=== PATIENT | female | born 1960 | race Caucasian/White ===

== ENCOUNTER 2018-04-15 20:49 | Inpatient (IN) | END 2018-08-11 11:59 | disposition other institution (70) | DRG 133 | DX: J96.11 Chronic respiratory failure with hypoxia (principal); G93.49 Other encephalopathy; G93.40 Encephalopathy, unspecified; G91.9 Hydrocephalus, unspecified; I11.0 Hypertensive heart disease with heart failure; A04.72 Enterocolitis due to Clostridium difficile, not specified as recurrent; L89.159 Pressure ulcer of sacral region, unspecified stage; I50.9 Heart failure, unspecified; B37.0 Candidal stomatitis; Z93.0 Tracheostomy status; R13.10 Dysphagia, unspecified; I69.298 Other sequelae of other nontraumatic intracranial hemorrhage; Z93.1 Gastrostomy status; B96.1 Klebsiella pneumoniae [K. pneumoniae] as the cause of diseases classified elsewhere; B96.20 Unspecified Escherichia coli [E. coli] as the cause of diseases classified elsewhere; N39.0 Urinary tract infection, site not specified; D68.59 Other primary thrombophilia; G40.909 Epilepsy, unspecified, not intractable, without status epilepticus; G93.89 Other specified disorders of brain; I69.151 Hemiplegia and hemiparesis following nontraumatic intracerebral hemorrhage affecting right dominant side; K08.109 Complete loss of teeth, unspecified cause, unspecified class; R47.02 Dysphasia ==

== ENCOUNTER 2018-04-17 08:24 | Outpatient (CLI) | payer OTHER | END 2018-04-17 23:59 | disposition home or self-care (01) | LOC: CT 08:24 | PROVIDERS: ATTEND Internal Medicine Pulmonary Disease | DX: G93.89 Other specified disorders of brain (principal); G91.9 Hydrocephalus, unspecified; R41.82 Altered mental status, unspecified; Z86.79 Personal history of other diseases of the circulatory system | CPT/HCPCS: 70450 ==

== ENCOUNTER 2018-08-12 | Inpatient (IN) | payer OTHER ==
[~2018-08-12] VITALS: Ht 170.2 cm; Wt 65.8 kg
[2018-08-13] MEDS ORDERED: SENNOSIDES 1 TABLET PO PRN (10:45)
[2018-08-13 14:23] VITALS: BP 121/64
[2018-08-13 20:00] VITALS: BP 139/93
[2018-08-13] MEDS: LEVETIRACETAM 500 MG/5 ML LIQUID UDC GT SCH (21:27)
[2018-08-13] MEDS: METOPROLOL TARTRATE 25 MG TABLET GT SCH (21:28)
[2018-08-13] MEDS: MULTIVIT, IRON, MIN NO. 8, FA TABLET GT SCH (21:28)
[2018-08-13] MEDS: PHENOBARBITAL 30 MG/7.5 ML LIQUID UDC GT SCH (21:28)
[2018-08-13] MEDS: ASCORBIC ACID 500 MG TABLET GT SCH (21:28)
[2018-08-13] MEDS: VIMPAT 200 MG GT SCH (21:28)
[2018-08-13] MEDS: HYDROGEN PEROXIDE 3% 118 ML BOTTLE TP SCH (21:28)
[2018-08-13] MEDS: VITAMINS A AND D OINT TP SCH (21:28)
[2018-08-13] MEDS: Z GUARD REMEDY PASTE 57 GM TUBE TOP SCH ×2 (21:28)
[2018-08-13] MEDS: ACETAMINOPHEN 650 MG/20 ML UDC- SA PATIENTS-PAIN ONLY GT PRN (21:32)
[2018-08-14] MEDS: VITAL AF 1.2 1,000 ML LIQUID GT PRN (00:30)
[2018-08-14] MEDS: ASCORBIC ACID 500 MG TABLET GT SCH ×2 (08:16→21:10)
[2018-08-14] MEDS: AMLODIPINE 10 MG TABLET GT SCH (08:16)
[2018-08-14] MEDS: VITAMINS A AND D OINT TP SCH ×2 (08:16→21:11)
[2018-08-14] MEDS: HYDROGEN PEROXIDE 3% 118 ML BOTTLE TP SCH ×2 (08:16→21:10)
[2018-08-14] MEDS: LISINOPRIL 10 MG TABLET GT SCH (08:16)
[2018-08-14] MEDS: METOPROLOL TARTRATE 25 MG TABLET GT SCH ×2 (08:16→21:10)
[2018-08-14] MEDS: PHENOBARBITAL 30 MG/7.5 ML LIQUID UDC GT SCH ×2 (08:16→21:10)
[2018-08-14] MEDS: Z GUARD REMEDY PASTE 57 GM TUBE TOP SCH ×4 (08:16→21:10)
[2018-08-14] MEDS: VIMPAT 200 MG GT SCH ×2 (08:16→21:10)
[2018-08-14] MEDS: LEVETIRACETAM 500 MG/5 ML LIQUID UDC GT SCH ×2 (08:16→21:09)
[2018-08-14 11:21] VITALS: BP 121/101
[2018-08-14] MEDS: ACETAMINOPHEN 650 MG/20 ML UDC- SA PATIENTS-PAIN ONLY GT PRN (20:00)
[2018-08-14 20:51] VITALS: BP 138/85
[2018-08-14] MEDS: MULTIVIT, IRON, MIN NO. 8, FA TABLET GT SCH (21:10)
[2018-08-15] VITALS: BP 127/96
[2018-08-15] MEDS: LISINOPRIL 10 MG TABLET GT SCH (08:14)
[2018-08-15] MEDS: Z GUARD REMEDY PASTE 57 GM TUBE TOP SCH ×4 (08:14→21:49)
[2018-08-15] MEDS: VIMPAT 200 MG GT SCH ×2 (08:14→21:49)
[2018-08-15] MEDS: ASCORBIC ACID 500 MG TABLET GT SCH ×2 (08:14→21:49)
[2018-08-15] MEDS: AMLODIPINE 10 MG TABLET GT SCH (08:14)
[2018-08-15] MEDS: LEVETIRACETAM 500 MG/5 ML LIQUID UDC GT SCH ×2 (08:14→21:48)
[2018-08-15] MEDS: METOPROLOL TARTRATE 25 MG TABLET GT SCH ×2 (08:14→21:00)
[2018-08-15] MEDS: PHENOBARBITAL 30 MG/7.5 ML LIQUID UDC GT SCH ×2 (08:14→21:49)
[2018-08-15] MEDS: VITAMINS A AND D OINT TP SCH ×2 (08:15→21:50)
[2018-08-15] MEDS: HYDROGEN PEROXIDE 3% 118 ML BOTTLE TP SCH ×2 (08:15→21:50)
[2018-08-15 11:16] VITALS: BP 149/59
[2018-08-15 20:16] VITALS: BP 108/75
[2018-08-15] MEDS: MULTIVIT, IRON, MIN NO. 8, FA TABLET GT SCH (21:49)
[2018-08-16] MEDS: ACETAMINOPHEN 650 MG/20 ML UDC- SA PATIENTS-PAIN ONLY GT PRN (08:00)
[2018-08-16 08:02] VITALS: BP 110/83
[2018-08-16] MEDS: Z GUARD REMEDY PASTE 57 GM TUBE TOP SCH ×5 (08:45→21:20)
[2018-08-16] MEDS: AMLODIPINE 10 MG TABLET GT SCH (09:00)
[2018-08-16] MEDS: METOPROLOL TARTRATE 25 MG TABLET GT SCH ×2 (09:00→21:20)
[2018-08-16] MEDS: LISINOPRIL 10 MG TABLET GT SCH (09:00)
[2018-08-16] MEDS: LEVETIRACETAM 500 MG/5 ML LIQUID UDC GT SCH ×2 (09:43→21:18)
[2018-08-16] MEDS: VIMPAT 200 MG GT SCH ×2 (09:45→21:08)
[2018-08-16] MEDS: PHENOBARBITAL 30 MG/7.5 ML LIQUID UDC GT SCH ×2 (09:45→21:08)
[2018-08-16] MEDS: ASCORBIC ACID 500 MG TABLET GT SCH ×2 (09:45→21:20)
[2018-08-16] MEDS: HYDROGEN PEROXIDE 3% 118 ML BOTTLE TP SCH ×2 (09:46→21:20)
[2018-08-16] MEDS: VITAMINS A AND D OINT TP SCH ×2 (09:46→21:20)
[2018-08-16] MEDS: VITAL AF 1.2 1,000 ML LIQUID GT PRN (09:47)
[2018-08-16 20:45] VITALS: BP 125/75
[2018-08-16] MEDS: MULTIVIT, IRON, MIN NO. 8, FA TABLET GT SCH (21:20)
[2018-08-17] MEDS: VITAL AF 1.2 1,000 ML LIQUID GT PRN ×2 (01:32→20:05)
[2018-08-17 08:04] VITALS: BP 125/81
[2018-08-17] MEDS: LEVETIRACETAM 500 MG/5 ML LIQUID UDC GT SCH ×2 (09:00→20:04)
[2018-08-17] MEDS: ASCORBIC ACID 500 MG TABLET GT SCH ×2 (09:01→20:04)
[2018-08-17] MEDS: METOPROLOL TARTRATE 25 MG TABLET GT SCH ×2 (09:01→21:37)
[2018-08-17] MEDS: AMLODIPINE 10 MG TABLET GT SCH (09:01)
[2018-08-17] MEDS: LISINOPRIL 10 MG TABLET GT SCH (09:01)
[2018-08-17] MEDS: PHENOBARBITAL 30 MG/7.5 ML LIQUID UDC GT SCH ×2 (09:01→20:04)
[2018-08-17] MEDS: Z GUARD REMEDY PASTE 57 GM TUBE TOP SCH ×4 (09:01→20:05)
[2018-08-17] MEDS: VIMPAT 200 MG GT SCH ×2 (09:01→20:04)
[2018-08-17] MEDS: VITAMINS A AND D OINT TP SCH ×2 (09:02→20:05)
[2018-08-17] MEDS: HYDROGEN PEROXIDE 3% 118 ML BOTTLE TP SCH ×2 (09:02→20:05)
[2018-08-17] MEDS: ACETAMINOPHEN 650 MG/20 ML UDC- SA PATIENTS-PAIN ONLY GT PRN ×2 (09:02→15:23)
[2018-08-17] MEDS: MULTIVIT, IRON, MIN NO. 8, FA TABLET GT SCH (20:04)
[2018-08-17 20:44] VITALS: BP 120/78
[2018-08-18] MEDS: LEVETIRACETAM 500 MG/5 ML LIQUID UDC GT SCH ×2 (08:34→21:12)
[2018-08-18] MEDS: METOPROLOL TARTRATE 25 MG TABLET GT SCH ×2 (08:35→21:14)
[2018-08-18] MEDS: AMLODIPINE 10 MG TABLET GT SCH (08:35)
[2018-08-18] MEDS: PHENOBARBITAL 30 MG/7.5 ML LIQUID UDC GT SCH ×2 (08:35→21:14)
[2018-08-18] MEDS: VIMPAT 200 MG GT SCH ×2 (08:35→21:14)
[2018-08-18] MEDS: HYDROGEN PEROXIDE 3% 118 ML BOTTLE TP SCH ×2 (08:36→21:15)
[2018-08-18] MEDS: LISINOPRIL 10 MG TABLET GT SCH (08:36)
[2018-08-18] MEDS: ASCORBIC ACID 500 MG TABLET GT SCH ×2 (08:36→21:14)
[2018-08-18] MEDS: VITAMINS A AND D OINT TP SCH ×2 (08:36→21:15)
[2018-08-18] MEDS: Z GUARD REMEDY PASTE 57 GM TUBE TOP SCH ×4 (08:36→21:15)
[2018-08-18] MEDS: ACETAMINOPHEN 650 MG/20 ML UDC- SA PATIENTS-PAIN ONLY GT PRN (08:45)
[2018-08-18 09:22] VITALS: BP 138/86
[2018-08-18] MEDS: MULTIVIT, IRON, MIN NO. 8, FA TABLET GT SCH (21:14)
[2018-08-18 21:22] VITALS: BP 126/81
[2018-08-19] MEDS: VIMPAT 200 MG GT SCH ×2 (08:21→21:35)
[2018-08-19] MEDS: LEVETIRACETAM 500 MG/5 ML LIQUID UDC GT SCH ×2 (08:21→21:35)
[2018-08-19] MEDS: METOPROLOL TARTRATE 25 MG TABLET GT SCH ×2 (08:21→21:35)
[2018-08-19] MEDS: ASCORBIC ACID 500 MG TABLET GT SCH ×2 (08:22→21:35)
[2018-08-19] MEDS: Z GUARD REMEDY PASTE 57 GM TUBE TOP SCH ×4 (08:22→21:35)
[2018-08-19] MEDS: PHENOBARBITAL 30 MG/7.5 ML LIQUID UDC GT SCH ×2 (08:22→21:35)
[2018-08-19] MEDS: HYDROGEN PEROXIDE 3% 118 ML BOTTLE TP SCH ×2 (08:22→21:36)
[2018-08-19] MEDS: AMLODIPINE 10 MG TABLET GT SCH (08:22)
[2018-08-19] MEDS: LISINOPRIL 10 MG TABLET GT SCH (08:22)
[2018-08-19] MEDS: VITAMINS A AND D OINT TP SCH ×2 (08:23→21:36)
[2018-08-19] MEDS: VITAL AF 1.2 1,000 ML LIQUID GT PRN (08:24)
[2018-08-19 19:55] VITALS: BP 143/87
[2018-08-19] MEDS: MULTIVIT, IRON, MIN NO. 8, FA TABLET GT SCH (21:35)
[2018-08-20] MEDS: AMLODIPINE 10 MG TABLET GT SCH (08:09)
[2018-08-20] MEDS: VIMPAT 200 MG GT SCH ×2 (08:09→21:59)
[2018-08-20] MEDS: PHENOBARBITAL 30 MG/7.5 ML LIQUID UDC GT SCH ×2 (08:09→21:59)
[2018-08-20] MEDS: METOPROLOL TARTRATE 25 MG TABLET GT SCH ×2 (08:09→21:59)
[2018-08-20] MEDS: LEVETIRACETAM 500 MG/5 ML LIQUID UDC GT SCH ×2 (08:09→21:59)
[2018-08-20] MEDS: Z GUARD REMEDY PASTE 57 GM TUBE TOP SCH ×4 (08:10→21:59)
[2018-08-20] MEDS: ASCORBIC ACID 500 MG TABLET GT SCH ×2 (08:10→21:59)
[2018-08-20] MEDS: HYDROGEN PEROXIDE 3% 118 ML BOTTLE TP SCH ×2 (08:10→21:59)
[2018-08-20] MEDS: LISINOPRIL 10 MG TABLET GT SCH (08:10)
[2018-08-20] MEDS: VITAMINS A AND D OINT TP SCH ×2 (08:10→21:59)
[2018-08-20 09:11] VITALS: BP 143/88
[2018-08-20 20:35] VITALS: BP 135/87
[2018-08-20] MEDS: MULTIVIT, IRON, MIN NO. 8, FA TABLET GT SCH (21:59)
[2018-08-21] MEDS: METOPROLOL TARTRATE 25 MG TABLET GT SCH ×2 (08:18→21:48)
[2018-08-21] MEDS: VIMPAT 200 MG GT SCH ×2 (08:19→21:55)
[2018-08-21] MEDS: PHENOBARBITAL 30 MG/7.5 ML LIQUID UDC GT SCH ×2 (08:19→21:56)
[2018-08-21] MEDS: AMLODIPINE 10 MG TABLET GT SCH (08:19)
[2018-08-21] MEDS: LISINOPRIL 10 MG TABLET GT SCH (08:20)
[2018-08-21] MEDS: ASCORBIC ACID 500 MG TABLET GT SCH ×2 (08:21→21:57)
[2018-08-21] MEDS: Z GUARD REMEDY PASTE 57 GM TUBE TOP SCH ×4 (08:22→21:57)
[2018-08-21] MEDS: ACETAMINOPHEN 650 MG/20 ML UDC- SA PATIENTS-PAIN ONLY GT PRN (08:23)
[2018-08-21] MEDS: VITAL AF 1.2 1,000 ML LIQUID GT PRN (08:27)
[2018-08-21 09:00] VITALS: BP 140/80
[2018-08-21] MEDS: HYDROGEN PEROXIDE 3% 118 ML BOTTLE TP SCH ×2 (09:05→21:57)
[2018-08-21] MEDS: LEVETIRACETAM 500 MG/5 ML LIQUID UDC GT SCH ×2 (09:05→21:48)
[2018-08-21] MEDS: VITAMINS A AND D OINT TP SCH ×2 (09:06→21:57)
[2018-08-21 20:00] VITALS: BP 129/79
[2018-08-21] MEDS: MULTIVIT, IRON, MIN NO. 8, FA TABLET GT SCH (21:57)
[2018-08-22] MEDS: VITAL AF 1.2 1,000 ML LIQUID GT PRN ×2 (02:33→18:17)
[2018-08-22 08:03] VITALS: BP 147/85
[2018-08-22] MEDS: METOPROLOL TARTRATE 25 MG TABLET GT SCH ×2 (08:34→21:39)
[2018-08-22] MEDS: LEVETIRACETAM 500 MG/5 ML LIQUID UDC GT SCH ×2 (08:34→21:38)
[2018-08-22] MEDS: VIMPAT 200 MG GT SCH ×2 (08:38→21:39)
[2018-08-22] MEDS: AMLODIPINE 10 MG TABLET GT SCH (08:39)
[2018-08-22] MEDS: PHENOBARBITAL 30 MG/7.5 ML LIQUID UDC GT SCH ×2 (08:39→21:39)
[2018-08-22] MEDS: ASCORBIC ACID 500 MG TABLET GT SCH ×2 (08:40→21:39)
[2018-08-22] MEDS: LISINOPRIL 10 MG TABLET GT SCH (08:40)
[2018-08-22] MEDS: Z GUARD REMEDY PASTE 57 GM TUBE TOP SCH ×4 (08:42→21:39)
[2018-08-22] MEDS: VITAMINS A AND D OINT TP SCH ×2 (08:42→21:39)
[2018-08-22] MEDS: HYDROGEN PEROXIDE 3% 118 ML BOTTLE TP SCH ×2 (08:42→21:39)
[2018-08-22 20:00] VITALS: BP 136/90
[2018-08-22] MEDS: MULTIVIT, IRON, MIN NO. 8, FA TABLET GT SCH (21:39)
[2018-08-23 08:03] VITALS: BP 138/71
[2018-08-23] MEDS: LEVETIRACETAM 500 MG/5 ML LIQUID UDC GT SCH ×2 (08:39→21:32)
[2018-08-23] MEDS: VIMPAT 200 MG GT SCH ×2 (08:41→21:38)
[2018-08-23] MEDS: METOPROLOL TARTRATE 25 MG TABLET GT SCH ×2 (08:41→21:33)
[2018-08-23] MEDS: ASCORBIC ACID 500 MG TABLET GT SCH ×2 (08:42→21:35)
[2018-08-23] MEDS: LISINOPRIL 10 MG TABLET GT SCH (08:42)
[2018-08-23] MEDS: AMLODIPINE 10 MG TABLET GT SCH (08:42)
[2018-08-23] MEDS: HYDROGEN PEROXIDE 3% 118 ML BOTTLE TP SCH ×2 (08:42→21:35)
[2018-08-23] MEDS: Z GUARD REMEDY PASTE 57 GM TUBE TOP SCH ×4 (08:42→21:35)
[2018-08-23] MEDS: VITAMINS A AND D OINT TP SCH ×2 (08:43→21:35)
[2018-08-23] MEDS: PHENOBARBITAL 30 MG/7.5 ML LIQUID UDC GT SCH ×2 (09:00→21:38)
[2018-08-23] MEDS: VITAL AF 1.2 1,000 ML LIQUID GT PRN (18:49)
[2018-08-23 20:00] VITALS: BP 146/88
[2018-08-23] MEDS: MULTIVIT, IRON, MIN NO. 8, FA TABLET GT SCH (21:35)
[2018-08-24 08:03] VITALS: BP 140/79
[2018-08-24] MEDS: METOPROLOL TARTRATE 25 MG TABLET GT SCH ×2 (08:03→21:00)
[2018-08-24] MEDS: LEVETIRACETAM 500 MG/5 ML LIQUID UDC GT SCH ×2 (08:03→21:08)
[2018-08-24] MEDS: AMLODIPINE 10 MG TABLET GT SCH (08:03)
[2018-08-24] MEDS: VIMPAT 200 MG GT SCH ×2 (08:03→21:09)
[2018-08-24] MEDS: LISINOPRIL 10 MG TABLET GT SCH (08:04)
[2018-08-24] MEDS: ASCORBIC ACID 500 MG TABLET GT SCH ×2 (08:04→21:09)
[2018-08-24] MEDS: Z GUARD REMEDY PASTE 57 GM TUBE TOP SCH ×4 (08:04→21:09)
[2018-08-24] MEDS: VITAMINS A AND D OINT TP SCH ×2 (08:04→21:10)
[2018-08-24] MEDS: HYDROGEN PEROXIDE 3% 118 ML BOTTLE TP SCH ×2 (08:04→21:10)
[2018-08-24] MEDS: PHENOBARBITAL 30 MG/7.5 ML LIQUID UDC GT SCH ×2 (08:04→21:09)
[2018-08-24] MEDS ORDERED: LEVETIRACETAM 500 MG/5 ML LIQUID UDC GT SCH (09:00)
[2018-08-24 20:11] VITALS: BP 119/73
[2018-08-24] MEDS: MULTIVIT, IRON, MIN NO. 8, FA TABLET GT SCH (21:09)
[2018-08-25] MEDS: VITAL AF 1.2 1,000 ML LIQUID GT PRN (02:51)
[2018-08-25] MEDS: LEVETIRACETAM 500 MG/5 ML LIQUID UDC GT SCH ×2 (08:36→21:00)
[2018-08-25] MEDS: AMLODIPINE 10 MG TABLET GT SCH (08:40)
[2018-08-25] MEDS: PHENOBARBITAL 30 MG/7.5 ML LIQUID UDC GT SCH ×2 (08:40→21:00)
[2018-08-25] MEDS: VIMPAT 200 MG GT SCH ×2 (08:40→21:00)
[2018-08-25] MEDS: METOPROLOL TARTRATE 25 MG TABLET GT SCH ×2 (08:40→21:00)
[2018-08-25] MEDS: LISINOPRIL 10 MG TABLET GT SCH (08:41)
[2018-08-25] MEDS: HYDROGEN PEROXIDE 3% 118 ML BOTTLE TP SCH ×2 (08:44→21:01)
[2018-08-25] MEDS: Z GUARD REMEDY PASTE 57 GM TUBE TOP SCH ×4 (08:44→21:01)
[2018-08-25] MEDS: ASCORBIC ACID 500 MG TABLET GT SCH ×2 (08:44→21:00)
[2018-08-25] MEDS: VITAMINS A AND D OINT TP SCH ×2 (08:45→21:01)
[2018-08-25 10:12] VITALS: BP 153/87
[2018-08-25] MEDS: DIAZEPAM 5 MG TABLET PO SCH ×2 (14:22→21:10)
[2018-08-25] MEDS: MULTIVIT, IRON, MIN NO. 8, FA TABLET GT SCH (21:00)
[2018-08-25 21:15] VITALS: BP 139/86
[2018-08-26] MEDS: DIAZEPAM 5 MG TABLET PO SCH ×3 (05:53→21:36)
[2018-08-26] MEDS: LEVETIRACETAM 500 MG/5 ML LIQUID UDC GT SCH ×2 (08:30→21:33)
[2018-08-26] MEDS: VIMPAT 200 MG GT SCH ×2 (08:31→21:34)
[2018-08-26] MEDS: METOPROLOL TARTRATE 25 MG TABLET GT SCH ×2 (08:31→21:34)
[2018-08-26] MEDS: Z GUARD REMEDY PASTE 57 GM TUBE TOP SCH ×4 (08:32→21:36)
[2018-08-26] MEDS: PHENOBARBITAL 30 MG/7.5 ML LIQUID UDC GT SCH ×2 (08:32→21:34)
[2018-08-26] MEDS: AMLODIPINE 10 MG TABLET GT SCH (08:32)
[2018-08-26] MEDS: ASCORBIC ACID 500 MG TABLET GT SCH ×2 (08:32→21:35)
[2018-08-26] MEDS: LISINOPRIL 10 MG TABLET GT SCH (08:32)
[2018-08-26] MEDS: HYDROGEN PEROXIDE 3% 118 ML BOTTLE TP SCH ×2 (08:32→21:36)
[2018-08-26] MEDS: VITAMINS A AND D OINT TP SCH ×2 (08:33→21:36)
[2018-08-26 11:25] VITALS: BP 134/87
[2018-08-26] MEDS: VITAL AF 1.2 1,000 ML LIQUID GT PRN (11:54)
[2018-08-26 20:44] VITALS: BP 132/86
[2018-08-26] MEDS: MULTIVIT, IRON, MIN NO. 8, FA TABLET GT SCH (21:34)
[2018-08-27] MEDS: VITAL AF 1.2 1,000 ML LIQUID GT PRN ×2 (00:09→05:06)
[2018-08-27] MEDS: DIAZEPAM 5 MG TABLET PO SCH ×3 (05:06→21:35)
[2018-08-27] MEDS: Z GUARD REMEDY PASTE 57 GM TUBE TOP SCH ×4 (08:24→21:35)
[2018-08-27] MEDS: ASCORBIC ACID 500 MG TABLET GT SCH ×2 (08:24→21:35)
[2018-08-27] MEDS: LEVETIRACETAM 500 MG/5 ML LIQUID UDC GT SCH ×2 (08:24→21:32)
[2018-08-27] MEDS: HYDROGEN PEROXIDE 3% 118 ML BOTTLE TP SCH ×2 (08:25→21:35)
[2018-08-27] MEDS: VITAMINS A AND D OINT TP SCH ×2 (08:25→21:35)
[2018-08-27] MEDS: AMLODIPINE 10 MG TABLET GT SCH (08:26)
[2018-08-27] MEDS: METOPROLOL TARTRATE 25 MG TABLET GT SCH ×2 (08:26→21:34)
[2018-08-27] MEDS: LISINOPRIL 10 MG TABLET GT SCH (08:27)
[2018-08-27] MEDS: VIMPAT 200 MG GT SCH ×2 (08:30→21:35)
[2018-08-27] MEDS: PHENOBARBITAL 30 MG/7.5 ML LIQUID UDC GT SCH ×2 (08:30→21:35)
[2018-08-27 11:37] VITALS: BP 136/87
[2018-08-27 20:37] VITALS: BP 128/93
[2018-08-27] MEDS: MULTIVIT, IRON, MIN NO. 8, FA TABLET GT SCH (21:35)
[2018-08-28] MEDS: DIAZEPAM 5 MG TABLET PO SCH ×3 (05:49→21:25)
[2018-08-28] MEDS: LEVETIRACETAM 500 MG/5 ML LIQUID UDC GT SCH ×2 (08:54→21:23)
[2018-08-28] MEDS: HYDROGEN PEROXIDE 3% 118 ML BOTTLE TP SCH ×2 (08:55→21:25)
[2018-08-28] MEDS: Z GUARD REMEDY PASTE 57 GM TUBE TOP SCH ×3 (08:55→21:25)
[2018-08-28] MEDS: AMLODIPINE 10 MG TABLET GT SCH (08:55)
[2018-08-28] MEDS: VITAMINS A AND D OINT TP SCH ×2 (08:55→21:25)
[2018-08-28] MEDS: METOPROLOL TARTRATE 25 MG TABLET GT SCH ×2 (08:55→21:23)
[2018-08-28] MEDS: ASCORBIC ACID 500 MG TABLET GT SCH ×2 (08:55→21:25)
[2018-08-28] MEDS: PHENOBARBITAL 30 MG/7.5 ML LIQUID UDC GT SCH ×2 (08:55→21:24)
[2018-08-28] MEDS: LISINOPRIL 10 MG TABLET GT SCH (08:55)
[2018-08-28] MEDS: VIMPAT 200 MG GT SCH ×2 (08:55→21:24)
[2018-08-28] MEDS: VITAL AF 1.2 1,000 ML LIQUID GT PRN (10:39)
[2018-08-28 10:43] VITALS: BP 131/69
[2018-08-28 20:37] VITALS: BP 128/85
[2018-08-28] MEDS: MULTIVIT, IRON, MIN NO. 8, FA TABLET GT SCH (21:24)
[2018-08-29] MEDS: VITAL AF 1.2 1,000 ML LIQUID GT PRN (00:30)
[2018-08-29] MEDS: DIAZEPAM 5 MG TABLET PO SCH ×3 (06:04→22:11)
[2018-08-29] MEDS: VIMPAT 200 MG GT SCH ×2 (08:30→20:48)
[2018-08-29] MEDS: METOPROLOL TARTRATE 25 MG TABLET GT SCH ×2 (08:30→20:48)
[2018-08-29] MEDS: LEVETIRACETAM 500 MG/5 ML LIQUID UDC GT SCH ×2 (08:30→20:47)
[2018-08-29] MEDS: Z GUARD REMEDY PASTE 57 GM TUBE TOP SCH ×2 (08:31→20:49)
[2018-08-29] MEDS: VITAMINS A AND D OINT TP SCH ×2 (08:31→20:49)
[2018-08-29] MEDS: HYDROGEN PEROXIDE 3% 118 ML BOTTLE TP SCH ×2 (08:31→20:49)
[2018-08-29] MEDS: ASCORBIC ACID 500 MG TABLET GT SCH ×2 (08:31→20:49)
[2018-08-29] MEDS: PHENOBARBITAL 30 MG/7.5 ML LIQUID UDC GT SCH ×2 (08:31→20:48)
[2018-08-29] MEDS: LISINOPRIL 10 MG TABLET GT SCH (08:31)
[2018-08-29] MEDS: AMLODIPINE 10 MG TABLET GT SCH (08:31)
[2018-08-29 12:57] VITALS: BP 118/76
[2018-08-29 20:40] VITALS: BP 128/87
[2018-08-29] MEDS: MULTIVIT, IRON, MIN NO. 8, FA TABLET GT SCH (20:48)
[2018-08-30] MEDS: VITAL AF 1.2 1,000 ML LIQUID GT PRN ×2 (05:00→21:00)
[2018-08-30] MEDS: DIAZEPAM 5 MG TABLET PO SCH ×3 (06:30→21:51)
[2018-08-30 08:00] VITALS: BP 141/95
[2018-08-30] MEDS: VIMPAT 200 MG GT SCH ×2 (08:39→20:41)
[2018-08-30] MEDS: PHENOBARBITAL 30 MG/7.5 ML LIQUID UDC GT SCH ×2 (08:39→20:41)
[2018-08-30] MEDS: AMLODIPINE 10 MG TABLET GT SCH (08:39)
[2018-08-30] MEDS: METOPROLOL TARTRATE 25 MG TABLET GT SCH ×2 (08:39→20:40)
[2018-08-30] MEDS: LEVETIRACETAM 500 MG/5 ML LIQUID UDC GT SCH ×2 (08:39→20:40)
[2018-08-30] MEDS: ASCORBIC ACID 500 MG TABLET GT SCH ×2 (08:41→20:45)
[2018-08-30] MEDS: LISINOPRIL 10 MG TABLET GT SCH (08:41)
[2018-08-30] MEDS: HYDROGEN PEROXIDE 3% 118 ML BOTTLE TP SCH ×2 (08:42→20:46)
[2018-08-30] MEDS: VITAMINS A AND D OINT TP SCH ×2 (08:42→20:46)
[2018-08-30] MEDS: Z GUARD REMEDY PASTE 57 GM TUBE TOP SCH ×2 (08:42→20:46)
[2018-08-30] MEDS: ACETAMINOPHEN 650 MG/20 ML UDC- SA PATIENTS-PAIN ONLY GT PRN (09:04)
[2018-08-30 20:13] VITALS: BP 114/75
[2018-08-30] MEDS: MULTIVIT, IRON, MIN NO. 8, FA TABLET GT SCH (20:45)
[2018-08-31] MEDS: DIAZEPAM 5 MG TABLET PO SCH ×3 (05:59→21:29)
[2018-08-31 08:00] VITALS: BP 121/83
[2018-08-31] MEDS: LEVETIRACETAM 500 MG/5 ML LIQUID UDC GT SCH ×2 (08:01→21:18)
[2018-08-31] MEDS: AMLODIPINE 10 MG TABLET GT SCH (08:02)
[2018-08-31] MEDS: METOPROLOL TARTRATE 25 MG TABLET GT SCH ×2 (08:02→21:00)
[2018-08-31] MEDS: PHENOBARBITAL 30 MG/7.5 ML LIQUID UDC GT SCH ×2 (08:02→21:22)
[2018-08-31] MEDS: VIMPAT 200 MG GT SCH ×2 (08:02→21:22)
[2018-08-31] MEDS: ASCORBIC ACID 500 MG TABLET GT SCH ×2 (08:03→21:19)
[2018-08-31] MEDS: VITAMINS A AND D OINT TP SCH ×2 (08:03→21:29)
[2018-08-31] MEDS: Z GUARD REMEDY PASTE 57 GM TUBE TOP SCH ×2 (08:03→21:29)
[2018-08-31] MEDS: LISINOPRIL 10 MG TABLET GT SCH (08:03)
[2018-08-31] MEDS: HYDROGEN PEROXIDE 3% 118 ML BOTTLE TP SCH ×2 (08:03→21:29)
[2018-08-31] MEDS: VITAL AF 1.2 1,000 ML LIQUID GT PRN (17:22)
[2018-08-31] MEDS: MULTIVIT, IRON, MIN NO. 8, FA TABLET GT SCH (21:19)
[2018-08-31 23:05] VITALS: BP 109/60
[2018-09-01] MEDS: DIAZEPAM 5 MG TABLET PO SCH ×3 (06:28→21:48)
[2018-09-01] MEDS: LEVETIRACETAM 500 MG/5 ML LIQUID UDC GT SCH ×2 (08:25→21:43)
[2018-09-01] MEDS: AMLODIPINE 10 MG TABLET GT SCH (08:27)
[2018-09-01] MEDS: METOPROLOL TARTRATE 25 MG TABLET GT SCH ×2 (08:27→21:46)
[2018-09-01] MEDS: VIMPAT 200 MG GT SCH ×2 (08:27→21:46)
[2018-09-01] MEDS: LISINOPRIL 10 MG TABLET GT SCH (08:27)
[2018-09-01] MEDS: Z GUARD REMEDY PASTE 57 GM TUBE TOP SCH ×2 (08:27→21:46)
[2018-09-01] MEDS: ASCORBIC ACID 500 MG TABLET GT SCH ×2 (08:27→21:46)
[2018-09-01] MEDS: VITAMINS A AND D OINT TP SCH ×2 (08:28→21:46)
[2018-09-01] MEDS: HYDROGEN PEROXIDE 3% 118 ML BOTTLE TP SCH ×2 (08:28→21:46)
[2018-09-01] MEDS: PHENOBARBITAL 30 MG/7.5 ML LIQUID UDC GT SCH ×2 (08:52→21:46)
[2018-09-01] MEDS ORDERED: PHENOBARBITAL 32.4 MG TABLET GT ONE (09:00)
[2018-09-01 09:25] VITALS: BP 117/72
[2018-09-01] MEDS: VITAL AF 1.2 1,000 ML LIQUID GT PRN (17:49)
[2018-09-01 20:25] VITALS: BP 130/84
[2018-09-01] MEDS: MULTIVIT, IRON, MIN NO. 8, FA TABLET GT SCH (21:46)
[2018-09-02] MEDS: VITAL AF 1.2 1,000 ML LIQUID GT PRN (04:11)
[2018-09-02] MEDS: DIAZEPAM 5 MG TABLET PO SCH ×3 (06:06→21:20)
[2018-09-02 08:00] VITALS: BP_SYST 121; BP_SYST 141; BP_DIAS 60; BP_DIAS 90
[2018-09-02] MEDS: LEVETIRACETAM 500 MG/5 ML LIQUID UDC GT SCH ×2 (08:19→20:18)
[2018-09-02] MEDS: Z GUARD REMEDY PASTE 57 GM TUBE TOP SCH ×2 (08:20→20:20)
[2018-09-02] MEDS: METOPROLOL TARTRATE 25 MG TABLET GT SCH ×2 (08:20→21:20)
[2018-09-02] MEDS: VITAMINS A AND D OINT TP SCH ×2 (08:20→20:20)
[2018-09-02] MEDS: LISINOPRIL 10 MG TABLET GT SCH (08:20)
[2018-09-02] MEDS: AMLODIPINE 10 MG TABLET GT SCH (08:20)
[2018-09-02] MEDS: PHENOBARBITAL 30 MG/7.5 ML LIQUID UDC GT SCH ×2 (08:20→20:21)
[2018-09-02] MEDS: HYDROGEN PEROXIDE 3% 118 ML BOTTLE TP SCH ×2 (08:20→20:20)
[2018-09-02] MEDS: ASCORBIC ACID 500 MG TABLET GT SCH ×2 (08:20→20:20)
[2018-09-02] MEDS: VIMPAT 200 MG GT SCH ×2 (08:20→20:20)
[2018-09-02] MEDS: MULTIVIT, IRON, MIN NO. 8, FA TABLET GT SCH (20:20)
[2018-09-02 20:46] VITALS: BP 146/89
[2018-09-03] MEDS: VITAL AF 1.2 1,000 ML LIQUID GT PRN ×2 (00:30→06:19)
[2018-09-03] MEDS: DIAZEPAM 5 MG TABLET PO SCH ×3 (06:18→21:57)
[2018-09-03 08:04] VITALS: BP 147/70
[2018-09-03] MEDS: LEVETIRACETAM 500 MG/5 ML LIQUID UDC GT SCH ×2 (08:04→21:53)
[2018-09-03] MEDS: METOPROLOL TARTRATE 25 MG TABLET GT SCH ×2 (08:04→21:00)
[2018-09-03] MEDS: VIMPAT 200 MG GT SCH ×2 (08:04→21:55)
[2018-09-03] MEDS: AMLODIPINE 10 MG TABLET GT SCH (08:05)
[2018-09-03] MEDS: HYDROGEN PEROXIDE 3% 118 ML BOTTLE TP SCH ×2 (08:05→21:57)
[2018-09-03] MEDS: ASCORBIC ACID 500 MG TABLET GT SCH ×2 (08:05→21:56)
[2018-09-03] MEDS: Z GUARD REMEDY PASTE 57 GM TUBE TOP SCH ×2 (08:05→21:56)
[2018-09-03] MEDS: VITAMINS A AND D OINT TP SCH ×2 (08:05→21:57)
[2018-09-03] MEDS: LISINOPRIL 10 MG TABLET GT SCH (08:05)
[2018-09-03] MEDS: PHENOBARBITAL 30 MG/7.5 ML LIQUID UDC GT SCH ×2 (08:05→21:55)
[2018-09-03 20:00] VITALS: BP 105/75
[2018-09-03] MEDS: MULTIVIT, IRON, MIN NO. 8, FA TABLET GT SCH (21:56)
[2018-09-04] MEDS: DIAZEPAM 5 MG TABLET PO SCH ×3 (05:20→21:50)
[2018-09-04 08:04] VITALS: BP 143/94
[2018-09-04] MEDS: LEVETIRACETAM 500 MG/5 ML LIQUID UDC GT SCH ×2 (08:34→21:33)
[2018-09-04] MEDS: AMLODIPINE 10 MG TABLET GT SCH (08:35)
[2018-09-04] MEDS: Z GUARD REMEDY PASTE 57 GM TUBE TOP SCH ×2 (08:35→21:49)
[2018-09-04] MEDS: HYDROGEN PEROXIDE 3% 118 ML BOTTLE TP SCH ×2 (08:35→21:49)
[2018-09-04] MEDS: ASCORBIC ACID 500 MG TABLET GT SCH ×2 (08:35→21:49)
[2018-09-04] MEDS: METOPROLOL TARTRATE 25 MG TABLET GT SCH ×2 (08:35→21:34)
[2018-09-04] MEDS: LISINOPRIL 10 MG TABLET GT SCH (08:35)
[2018-09-04] MEDS: PHENOBARBITAL 30 MG/7.5 ML LIQUID UDC GT SCH ×2 (08:35→21:47)
[2018-09-04] MEDS: VIMPAT 200 MG GT SCH ×2 (08:35→21:47)
[2018-09-04] MEDS: VITAMINS A AND D OINT TP SCH ×2 (08:35→21:49)
[2018-09-04 20:00] VITALS: BP 123/85
[2018-09-04] MEDS: MULTIVIT, IRON, MIN NO. 8, FA TABLET GT SCH (21:49)
[2018-09-04] MEDS: VITAL AF 1.2 1,000 ML LIQUID GT PRN (21:51)
[2018-09-05] MEDS: DIAZEPAM 5 MG TABLET PO SCH ×3 (05:36→21:27)
[2018-09-05 08:03] VITALS: BP 125/81
[2018-09-05 08:21] VITALS: BP 125/81
[2018-09-05] MEDS: VIMPAT 200 MG GT SCH ×2 (08:23→21:26)
[2018-09-05] MEDS: ASCORBIC ACID 500 MG TABLET GT SCH ×2 (08:24→21:27)
[2018-09-05] MEDS: PHENOBARBITAL 30 MG/7.5 ML LIQUID UDC GT SCH ×2 (08:24→21:26)
[2018-09-05] MEDS: Z GUARD REMEDY PASTE 57 GM TUBE TOP SCH ×2 (08:24→21:27)
[2018-09-05] MEDS: AMLODIPINE 10 MG TABLET GT SCH (08:24)
[2018-09-05] MEDS: LISINOPRIL 10 MG TABLET GT SCH (08:24)
[2018-09-05] MEDS: LEVETIRACETAM 500 MG/5 ML LIQUID UDC GT SCH ×2 (08:24→21:26)
[2018-09-05] MEDS: METOPROLOL TARTRATE 25 MG TABLET GT SCH ×2 (08:24→21:26)
[2018-09-05] MEDS: HYDROGEN PEROXIDE 3% 118 ML BOTTLE TP SCH ×2 (08:25→21:27)
[2018-09-05] MEDS: VITAMINS A AND D OINT TP SCH ×2 (08:25→21:27)
[2018-09-05 20:00] VITALS: BP 125/83
[2018-09-05] MEDS: MULTIVIT, IRON, MIN NO. 8, FA TABLET GT SCH (21:27)
[2018-09-06] MEDS: DIAZEPAM 5 MG TABLET PO SCH (05:18)
[2018-09-06 08:14] VITALS: BP 117/60
[2018-09-06] MEDS: METOPROLOL TARTRATE 25 MG TABLET GT SCH ×2 (08:16→21:36)
[2018-09-06] MEDS: LEVETIRACETAM 500 MG/5 ML LIQUID UDC GT SCH ×2 (08:16→21:35)
[2018-09-06] MEDS: AMLODIPINE 10 MG TABLET GT SCH (08:16)
[2018-09-06] MEDS: PHENOBARBITAL 30 MG/7.5 ML LIQUID UDC GT SCH ×2 (08:16→21:36)
[2018-09-06] MEDS: VIMPAT 200 MG GT SCH ×2 (08:16→21:36)
[2018-09-06] MEDS: ASCORBIC ACID 500 MG TABLET GT SCH ×2 (08:17→21:36)
[2018-09-06] MEDS: LISINOPRIL 10 MG TABLET GT SCH (08:17)
[2018-09-06] MEDS: Z GUARD REMEDY PASTE 57 GM TUBE TOP SCH ×2 (08:17→21:37)
[2018-09-06] MEDS: HYDROGEN PEROXIDE 3% 118 ML BOTTLE TP SCH ×2 (08:18→21:37)
[2018-09-06] MEDS: VITAMINS A AND D OINT TP SCH ×2 (08:18→21:37)
[2018-09-06] MEDS: VITAL AF 1.2 1,000 ML LIQUID GT PRN (08:46)
[2018-09-06 20:18] VITALS: BP 137/94
[2018-09-06] MEDS: MULTIVIT, IRON, MIN NO. 8, FA TABLET GT SCH (21:36)
[2018-09-06] MEDS: DIAZEPAM 5 MG TABLET GT SCH (21:36)
[2018-09-07] MEDS: VITAL AF 1.2 1,000 ML LIQUID GT PRN (00:20)
[2018-09-07] MEDS: VIMPAT 200 MG GT SCH ×2 (08:18→20:57)
[2018-09-07] MEDS: LEVETIRACETAM 500 MG/5 ML LIQUID UDC GT SCH ×2 (08:18→20:56)
[2018-09-07] MEDS: METOPROLOL TARTRATE 25 MG TABLET GT SCH ×2 (08:18→20:57)
[2018-09-07] MEDS: AMLODIPINE 10 MG TABLET GT SCH (08:19)
[2018-09-07] MEDS: PHENOBARBITAL 30 MG/7.5 ML LIQUID UDC GT SCH ×2 (08:19→20:57)
[2018-09-07] MEDS: ASCORBIC ACID 500 MG TABLET GT SCH ×2 (08:20→20:57)
[2018-09-07] MEDS: VITAMINS A AND D OINT TP SCH ×2 (08:20→20:57)
[2018-09-07] MEDS: LISINOPRIL 10 MG TABLET GT SCH (08:20)
[2018-09-07] MEDS: Z GUARD REMEDY PASTE 57 GM TUBE TOP SCH ×2 (08:20→20:57)
[2018-09-07] MEDS: HYDROGEN PEROXIDE 3% 118 ML BOTTLE TP SCH ×2 (08:20→20:57)
[2018-09-07] MEDS: DIAZEPAM 5 MG TABLET GT SCH ×2 (08:22→20:57)
[2018-09-07 11:29] VITALS: BP 141/90
[2018-09-07 20:27] VITALS: BP 126/70
[2018-09-07] MEDS: MULTIVIT, IRON, MIN NO. 8, FA TABLET GT SCH (20:57)
[2018-09-08 07:51] LABS: BASOPHILS % (AUTO) 0.4 % (0.0-2.0); EOSINOPHILS # (AUTO) 0.1 K/uL (0.0-0.7); MEAN CORPUSCULAR VOLUME 83.6 fL (75.5-95.3); MONOCYTES # (AUTO) 0.4 K/uL (2.0-10.0); WHITE BLOOD COUNT (AUTO) 6.1 K/uL (3.8-11.8)
[2018-09-08 08:01] LABS: EOSINOPHILS % (AUTO) 1.5 % (0.0-7.0); HEMATOCRIT 34.2 % (31.2-41.9); HEMOGLOBIN 11.6 g/dL (10.9-14.3); LYMPHOCYTES % (AUTO) 16.4 % (20.5-51.5); MEAN CORPUSCULAR HEMOGLOBIN 28.5 uug (24.7-32.8); MEAN CORPUSCULAR HGB CONC 34 g/dL (32.3-35.6); MONOCYTES % (AUTO) 6.3 % (0.0-11.0); NEUTROPHILS # (AUTO) 4.6 K/uL (1.8-8.9); NEUTROPHILS % (AUTO) 75.4 % (38.5-71.5); RED BLOOD CELL COUNT(AUTO) 4.09 MIL/uL (3.63-4.92)
[2018-09-08 08:02] LABS: PLATELET COUNT (AUTO) 189 K/uL (179-408)
[2018-09-08 08:10] LABS: BILIRUBIN,TOTAL 0.2 mg/dL (0.2-1.0); CREATININE 0.5 mg/dL (0.6-1.3); MAGNESIUM 1.8 mg/dL (1.8-2.4); PHOSPHOROUS 3.7 mg/dL (2.5-4.9); POTASSIUM 3.9 mmol/L (3.5-5.1); TOTAL PROTEIN, SERUM 7.1 g/dL (6.4-8.2)
[2018-09-08] MEDS: LEVETIRACETAM 500 MG/5 ML LIQUID UDC GT SCH ×2 (08:47→21:49)
[2018-09-08] MEDS: AMLODIPINE 10 MG TABLET GT SCH (08:48)
[2018-09-08] MEDS: METOPROLOL TARTRATE 25 MG TABLET GT SCH ×2 (08:48→21:49)
[2018-09-08] MEDS: VIMPAT 200 MG GT SCH ×2 (08:48→21:49)
[2018-09-08] MEDS: PHENOBARBITAL 30 MG/7.5 ML LIQUID UDC GT SCH ×2 (08:48→21:49)
[2018-09-08] MEDS: DIAZEPAM 5 MG TABLET GT SCH ×2 (08:49→21:49)
[2018-09-08] MEDS: ASCORBIC ACID 500 MG TABLET GT SCH ×2 (08:49→21:49)
[2018-09-08] MEDS: VITAMINS A AND D OINT TP SCH ×2 (08:49→21:50)
[2018-09-08] MEDS: LISINOPRIL 10 MG TABLET GT SCH (08:49)
[2018-09-08] MEDS: HYDROGEN PEROXIDE 3% 118 ML BOTTLE TP SCH ×2 (08:49→21:50)
[2018-09-08] MEDS: Z GUARD REMEDY PASTE 57 GM TUBE TOP SCH ×2 (08:49→21:50)
[2018-09-08 09:17] VITALS: BP 151/93
[2018-09-08 20:54] VITALS: BP 124/73
[2018-09-08] MEDS: MULTIVIT, IRON, MIN NO. 8, FA TABLET GT SCH (21:49)
[2018-09-09] MEDS: LEVETIRACETAM 500 MG/5 ML LIQUID UDC GT SCH ×2 (08:05→21:11)
[2018-09-09] MEDS: METOPROLOL TARTRATE 25 MG TABLET GT SCH ×2 (08:06→21:11)
[2018-09-09] MEDS: AMLODIPINE 10 MG TABLET GT SCH (08:06)
[2018-09-09] MEDS: VIMPAT 200 MG GT SCH ×2 (08:06→21:12)
[2018-09-09] MEDS: LISINOPRIL 10 MG TABLET GT SCH (08:07)
[2018-09-09] MEDS: PHENOBARBITAL 30 MG/7.5 ML LIQUID UDC GT SCH ×2 (08:07→21:12)
[2018-09-09] MEDS: DIAZEPAM 5 MG TABLET GT SCH ×2 (08:07→21:12)
[2018-09-09] MEDS: ASCORBIC ACID 500 MG TABLET GT SCH ×2 (08:08→21:31)
[2018-09-09] MEDS: VITAMINS A AND D OINT TP SCH ×2 (08:08→21:31)
[2018-09-09] MEDS: HYDROGEN PEROXIDE 3% 118 ML BOTTLE TP SCH ×2 (08:08→21:31)
[2018-09-09] MEDS: Z GUARD REMEDY PASTE 57 GM TUBE TOP SCH ×2 (08:08→21:31)
[2018-09-09 21:03] VITALS: BP 132/83
[2018-09-09] MEDS: MULTIVIT, IRON, MIN NO. 8, FA TABLET GT SCH (21:12)
[2018-09-10] MEDS: VITAL AF 1.2 1,000 ML LIQUID GT PRN (02:44)
[2018-09-10] MEDS: VIMPAT 200 MG GT SCH ×2 (08:19→21:11)
[2018-09-10] MEDS: METOPROLOL TARTRATE 25 MG TABLET GT SCH ×2 (08:19→21:13)
[2018-09-10] MEDS: AMLODIPINE 10 MG TABLET GT SCH (08:19)
[2018-09-10] MEDS: LEVETIRACETAM 500 MG/5 ML LIQUID UDC GT SCH ×2 (08:19→21:10)
[2018-09-10] MEDS: PHENOBARBITAL 30 MG/7.5 ML LIQUID UDC GT SCH ×2 (08:19→21:11)
[2018-09-10] MEDS: DIAZEPAM 5 MG TABLET GT SCH ×2 (08:20→21:11)
[2018-09-10] MEDS: HYDROGEN PEROXIDE 3% 118 ML BOTTLE TP SCH ×2 (08:20→21:12)
[2018-09-10] MEDS: VITAMINS A AND D OINT TP SCH ×2 (08:20→21:12)
[2018-09-10] MEDS: Z GUARD REMEDY PASTE 57 GM TUBE TOP SCH ×2 (08:20→21:12)
[2018-09-10] MEDS: ASCORBIC ACID 500 MG TABLET GT SCH ×2 (08:20→21:12)
[2018-09-10] MEDS: LISINOPRIL 10 MG TABLET GT SCH (08:20)
[2018-09-10 10:40] VITALS: BP 99/67
[2018-09-10 20:00] VITALS: BP 141/95
[2018-09-10] MEDS: MULTIVIT, IRON, MIN NO. 8, FA TABLET GT SCH (21:11)
[2018-09-11] MEDS: LISINOPRIL 10 MG TABLET GT SCH (08:18)
[2018-09-11] MEDS: PHENOBARBITAL 30 MG/7.5 ML LIQUID UDC GT SCH ×2 (08:18→21:09)
[2018-09-11] MEDS: METOPROLOL TARTRATE 25 MG TABLET GT SCH ×2 (08:18→21:09)
[2018-09-11] MEDS: AMLODIPINE 10 MG TABLET GT SCH (08:18)
[2018-09-11] MEDS: LEVETIRACETAM 500 MG/5 ML LIQUID UDC GT SCH ×2 (08:18→21:08)
[2018-09-11] MEDS: VIMPAT 200 MG GT SCH ×2 (08:18→21:09)
[2018-09-11] MEDS: ASCORBIC ACID 500 MG TABLET GT SCH ×2 (08:19→21:10)
[2018-09-11] MEDS: VITAMINS A AND D OINT TP SCH ×2 (08:19→21:11)
[2018-09-11] MEDS: Z GUARD REMEDY PASTE 57 GM TUBE TOP SCH ×2 (08:19→21:11)
[2018-09-11] MEDS: DIAZEPAM 5 MG TABLET GT SCH ×2 (08:19→21:10)
[2018-09-11] MEDS: HYDROGEN PEROXIDE 3% 118 ML BOTTLE TP SCH ×2 (08:19→21:11)
[2018-09-11 11:34] VITALS: BP 141/72
[2018-09-11 20:42] VITALS: BP 123/84
[2018-09-11] MEDS: MULTIVIT, IRON, MIN NO. 8, FA TABLET GT SCH (21:09)
[2018-09-12] MEDS: VITAL AF 1.2 1,000 ML LIQUID GT PRN (00:35)
[2018-09-12] MEDS: LEVETIRACETAM 500 MG/5 ML LIQUID UDC GT SCH ×2 (08:03→21:06)
[2018-09-12] MEDS: METOPROLOL TARTRATE 25 MG TABLET GT SCH ×2 (08:03→21:06)
[2018-09-12] MEDS: VIMPAT 200 MG GT SCH ×2 (08:04→21:06)
[2018-09-12] MEDS: PHENOBARBITAL 30 MG/7.5 ML LIQUID UDC GT SCH ×2 (08:05→21:06)
[2018-09-12] MEDS: AMLODIPINE 10 MG TABLET GT SCH (08:05)
[2018-09-12] MEDS: LISINOPRIL 10 MG TABLET GT SCH (08:05)
[2018-09-12] MEDS: HYDROGEN PEROXIDE 3% 118 ML BOTTLE TP SCH ×2 (08:06→21:07)
[2018-09-12] MEDS: Z GUARD REMEDY PASTE 57 GM TUBE TOP SCH ×2 (08:06→21:07)
[2018-09-12] MEDS: VITAMINS A AND D OINT TP SCH ×2 (08:06→21:07)
[2018-09-12] MEDS: DIAZEPAM 5 MG TABLET GT SCH ×2 (08:06→21:06)
[2018-09-12] MEDS: ASCORBIC ACID 500 MG TABLET GT SCH ×2 (08:06→21:06)
[2018-09-12 20:41] VITALS: BP 121/78
[2018-09-12] MEDS: MULTIVIT, IRON, MIN NO. 8, FA TABLET GT SCH (21:06)
[2018-09-13 08:06] VITALS: BP 147/72
[2018-09-13] MEDS: LEVETIRACETAM 500 MG/5 ML LIQUID UDC GT SCH ×2 (08:22→21:17)
[2018-09-13] MEDS: VIMPAT 200 MG GT SCH ×2 (08:24→21:18)
[2018-09-13] MEDS: AMLODIPINE 10 MG TABLET GT SCH (08:25)
[2018-09-13] MEDS: LISINOPRIL 10 MG TABLET GT SCH (08:25)
[2018-09-13] MEDS: DIAZEPAM 5 MG TABLET GT SCH ×2 (08:25→21:18)
[2018-09-13] MEDS: PHENOBARBITAL 30 MG/7.5 ML LIQUID UDC GT SCH ×2 (08:25→21:18)
[2018-09-13] MEDS: METOPROLOL TARTRATE 25 MG TABLET GT SCH ×2 (08:25→21:00)
[2018-09-13] MEDS: ASCORBIC ACID 500 MG TABLET GT SCH ×2 (08:25→21:18)
[2018-09-13] MEDS: HYDROGEN PEROXIDE 3% 118 ML BOTTLE TP SCH ×2 (08:26→21:18)
[2018-09-13] MEDS: Z GUARD REMEDY PASTE 57 GM TUBE TOP SCH ×2 (08:26→21:18)
[2018-09-13] MEDS: VITAMINS A AND D OINT TP SCH ×2 (08:26→21:18)
[2018-09-13] MEDS: VITAL AF 1.2 1,000 ML LIQUID GT PRN (12:46)
[2018-09-13 20:58] VITALS: BP 116/76
[2018-09-13] MEDS: MULTIVIT, IRON, MIN NO. 8, FA TABLET GT SCH (21:18)
[2018-09-14] MEDS: VITAL AF 1.2 1,000 ML LIQUID GT PRN ×2 (07:02→17:16)
[2018-09-14 08:18] VITALS: BP 106/67
[2018-09-14] MEDS: AMLODIPINE 10 MG TABLET GT SCH (09:00)
[2018-09-14] MEDS: METOPROLOL TARTRATE 25 MG TABLET GT SCH ×2 (09:00→21:21)
[2018-09-14] MEDS: LISINOPRIL 10 MG TABLET GT SCH (09:00)
[2018-09-14] MEDS: LEVETIRACETAM 500 MG/5 ML LIQUID UDC GT SCH ×2 (09:06→21:21)
[2018-09-14] MEDS: VIMPAT 200 MG GT SCH ×2 (09:07→21:21)
[2018-09-14] MEDS: PHENOBARBITAL 30 MG/7.5 ML LIQUID UDC GT SCH ×2 (09:07→21:21)
[2018-09-14] MEDS: ASCORBIC ACID 500 MG TABLET GT SCH ×2 (09:08→21:21)
[2018-09-14] MEDS: DIAZEPAM 5 MG TABLET GT SCH ×2 (09:08→21:21)
[2018-09-14] MEDS: HYDROGEN PEROXIDE 3% 118 ML BOTTLE TP SCH ×2 (09:08→21:21)
[2018-09-14] MEDS: VITAMINS A AND D OINT TP SCH ×2 (09:08→21:21)
[2018-09-14] MEDS: Z GUARD REMEDY PASTE 57 GM TUBE TOP SCH ×2 (09:08→21:21)
[2018-09-14 20:40] VITALS: BP 137/90
[2018-09-14] MEDS: MULTIVIT, IRON, MIN NO. 8, FA TABLET GT SCH (21:21)
[2018-09-15] MEDS: AMLODIPINE 10 MG TABLET GT SCH (09:04)
[2018-09-15] MEDS: METOPROLOL TARTRATE 25 MG TABLET GT SCH ×2 (09:04→21:00)
[2018-09-15] MEDS: LEVETIRACETAM 500 MG/5 ML LIQUID UDC GT SCH ×2 (09:04→21:00)
[2018-09-15] MEDS: PHENOBARBITAL 30 MG/7.5 ML LIQUID UDC GT SCH ×2 (09:04→21:00)
[2018-09-15] MEDS: VIMPAT 200 MG GT SCH ×2 (09:04→21:00)
[2018-09-15] MEDS: ASCORBIC ACID 500 MG TABLET GT SCH ×2 (09:05→21:00)
[2018-09-15] MEDS: Z GUARD REMEDY PASTE 57 GM TUBE TOP SCH ×2 (09:05→21:00)
[2018-09-15] MEDS: HYDROGEN PEROXIDE 3% 118 ML BOTTLE TP SCH ×2 (09:05→21:00)
[2018-09-15] MEDS: LISINOPRIL 10 MG TABLET GT SCH (09:05)
[2018-09-15] MEDS: VITAMINS A AND D OINT TP SCH ×2 (09:05→21:00)
[2018-09-15] MEDS: DIAZEPAM 5 MG TABLET GT SCH ×2 (09:05→21:00)
[2018-09-15 10:37] VITALS: BP 137/86
[2018-09-15] MEDS: VITAL AF 1.2 1,000 ML LIQUID GT PRN (12:22)
[2018-09-15 20:30] VITALS: BP 157/101
[2018-09-15] MEDS: MULTIVIT, IRON, MIN NO. 8, FA TABLET GT SCH (21:00)
[2018-09-16] MEDS: LEVETIRACETAM 500 MG/5 ML LIQUID UDC GT SCH ×2 (08:43→21:46)
[2018-09-16] MEDS: ASCORBIC ACID 500 MG TABLET GT SCH ×2 (08:44→21:57)
[2018-09-16] MEDS: VIMPAT 200 MG GT SCH ×2 (08:44→21:51)
[2018-09-16] MEDS: METOPROLOL TARTRATE 25 MG TABLET GT SCH ×2 (08:44→21:49)
[2018-09-16] MEDS: HYDROGEN PEROXIDE 3% 118 ML BOTTLE TP SCH ×2 (08:44→21:57)
[2018-09-16] MEDS: VITAMINS A AND D OINT TP SCH ×2 (08:44→21:57)
[2018-09-16] MEDS: Z GUARD REMEDY PASTE 57 GM TUBE TOP SCH ×2 (08:44→21:57)
[2018-09-16] MEDS: PHENOBARBITAL 30 MG/7.5 ML LIQUID UDC GT SCH ×2 (08:44→21:55)
[2018-09-16] MEDS: AMLODIPINE 10 MG TABLET GT SCH (08:44)
[2018-09-16] MEDS: DIAZEPAM 5 MG TABLET GT SCH ×2 (08:44→21:57)
[2018-09-16] MEDS: LISINOPRIL 10 MG TABLET GT SCH (08:44)
[2018-09-16 11:28] VITALS: BP 133/86
[2018-09-16 19:56] VITALS: BP 129/87
[2018-09-16] MEDS: MULTIVIT, IRON, MIN NO. 8, FA TABLET GT SCH (21:55)
[2018-09-16] MEDS: VITAL AF 1.2 1,000 ML LIQUID GT PRN (21:58)
[2018-09-17] MEDS: LEVETIRACETAM 500 MG/5 ML LIQUID UDC GT SCH ×2 (08:26→21:02)
[2018-09-17] MEDS: PHENOBARBITAL 30 MG/7.5 ML LIQUID UDC GT SCH ×2 (08:27→21:01)
[2018-09-17] MEDS: METOPROLOL TARTRATE 25 MG TABLET GT SCH ×2 (08:27→21:49)
[2018-09-17] MEDS: AMLODIPINE 10 MG TABLET GT SCH (08:27)
[2018-09-17] MEDS: VIMPAT 200 MG GT SCH ×2 (08:27→21:01)
[2018-09-17] MEDS: LISINOPRIL 10 MG TABLET GT SCH (08:28)
[2018-09-17] MEDS: Z GUARD REMEDY PASTE 57 GM TUBE TOP SCH ×2 (08:28→21:02)
[2018-09-17] MEDS: DIAZEPAM 5 MG TABLET GT SCH ×2 (08:28→21:02)
[2018-09-17] MEDS: HYDROGEN PEROXIDE 3% 118 ML BOTTLE TP SCH ×2 (08:28→21:02)
[2018-09-17] MEDS: ASCORBIC ACID 500 MG TABLET GT SCH ×2 (08:28→21:02)
[2018-09-17] MEDS: VITAMINS A AND D OINT TP SCH ×2 (08:30→21:02)
[2018-09-17 11:24] VITALS: BP 120/79
[2018-09-17] MEDS: VITAL AF 1.2 1,000 ML LIQUID GT PRN (16:44)
[2018-09-17 20:00] VITALS: BP 130/88
[2018-09-17] MEDS: MULTIVIT, IRON, MIN NO. 8, FA TABLET GT SCH (21:01)
[2018-09-18 08:10] VITALS: BP 139/79
[2018-09-18] MEDS: METOPROLOL TARTRATE 25 MG TABLET GT SCH ×2 (08:15→21:52)
[2018-09-18] MEDS: LEVETIRACETAM 500 MG/5 ML LIQUID UDC GT SCH ×2 (08:15→21:52)
[2018-09-18] MEDS: VIMPAT 200 MG GT SCH ×2 (08:15→21:53)
[2018-09-18] MEDS: HYDROGEN PEROXIDE 3% 118 ML BOTTLE TP SCH ×2 (08:16→21:54)
[2018-09-18] MEDS: LISINOPRIL 10 MG TABLET GT SCH (08:16)
[2018-09-18] MEDS: VITAMINS A AND D OINT TP SCH ×2 (08:16→21:54)
[2018-09-18] MEDS: Z GUARD REMEDY PASTE 57 GM TUBE TOP SCH ×2 (08:16→21:54)
[2018-09-18] MEDS: DIAZEPAM 5 MG TABLET GT SCH ×2 (08:16→21:53)
[2018-09-18] MEDS: PHENOBARBITAL 30 MG/7.5 ML LIQUID UDC GT SCH ×2 (08:16→21:53)
[2018-09-18] MEDS: AMLODIPINE 10 MG TABLET GT SCH (08:16)
[2018-09-18] MEDS: ASCORBIC ACID 500 MG TABLET GT SCH ×2 (08:16→21:53)
[2018-09-18] MEDS: VITAL AF 1.2 1,000 ML LIQUID GT PRN (11:36)
[2018-09-18 20:00] VITALS: BP 121/79
[2018-09-18] MEDS: MULTIVIT, IRON, MIN NO. 8, FA TABLET GT SCH (21:53)
[2018-09-19 07:43] VITALS: BP 128/74
[2018-09-19] MEDS: METOPROLOL TARTRATE 25 MG TABLET GT SCH ×2 (08:22→21:49)
[2018-09-19] MEDS: AMLODIPINE 10 MG TABLET GT SCH (08:22)
[2018-09-19] MEDS: PHENOBARBITAL 30 MG/7.5 ML LIQUID UDC GT SCH ×2 (08:22→21:50)
[2018-09-19] MEDS: VIMPAT 200 MG GT SCH ×2 (08:22→21:50)
[2018-09-19] MEDS: LEVETIRACETAM 500 MG/5 ML LIQUID UDC GT SCH ×2 (08:22→21:49)
[2018-09-19] MEDS: LISINOPRIL 10 MG TABLET GT SCH (08:22)
[2018-09-19] MEDS: HYDROGEN PEROXIDE 3% 118 ML BOTTLE TP SCH ×2 (08:23→21:50)
[2018-09-19] MEDS: VITAMINS A AND D OINT TP SCH ×2 (08:23→21:50)
[2018-09-19] MEDS: DIAZEPAM 5 MG TABLET GT SCH ×2 (08:23→21:50)
[2018-09-19] MEDS: Z GUARD REMEDY PASTE 57 GM TUBE TOP SCH ×2 (08:23→21:50)
[2018-09-19] MEDS: ASCORBIC ACID 500 MG TABLET GT SCH ×2 (08:23→21:50)
[2018-09-19 11:16] VITALS: BP 128/74
[2018-09-19 20:00] VITALS: BP 132/92
[2018-09-19] MEDS: MULTIVIT, IRON, MIN NO. 8, FA TABLET GT SCH (21:50)
[2018-09-20 08:05] VITALS: BP 120/80
[2018-09-20] MEDS: LEVETIRACETAM 500 MG/5 ML LIQUID UDC GT SCH ×2 (09:34→21:03)
[2018-09-20] MEDS: METOPROLOL TARTRATE 25 MG TABLET GT SCH ×2 (09:35→21:04)
[2018-09-20] MEDS: LISINOPRIL 10 MG TABLET GT SCH (09:35)
[2018-09-20] MEDS: AMLODIPINE 10 MG TABLET GT SCH (09:35)
[2018-09-20] MEDS: ASCORBIC ACID 500 MG TABLET GT SCH ×2 (09:36→21:04)
[2018-09-20] MEDS: VITAMINS A AND D OINT TP SCH ×2 (09:36→21:04)
[2018-09-20] MEDS: HYDROGEN PEROXIDE 3% 118 ML BOTTLE TP SCH ×2 (09:36→21:04)
[2018-09-20] MEDS: Z GUARD REMEDY PASTE 57 GM TUBE TOP SCH ×2 (09:36→21:04)
[2018-09-20] MEDS: PHENOBARBITAL 30 MG/7.5 ML LIQUID UDC GT SCH ×2 (09:45→21:04)
[2018-09-20] MEDS: DIAZEPAM 5 MG TABLET GT SCH ×2 (09:45→21:04)
[2018-09-20] MEDS: VIMPAT 200 MG GT SCH ×2 (09:45→21:04)
[2018-09-20 20:00] VITALS: BP 138/84
[2018-09-20] MEDS: MULTIVIT, IRON, MIN NO. 8, FA TABLET GT SCH (21:04)
[2018-09-21] MEDS: VITAL AF 1.2 1,000 ML LIQUID GT PRN ×2 (07:15→23:09)
[2018-09-21] MEDS: AMLODIPINE 10 MG TABLET GT SCH (09:00)
[2018-09-21] MEDS: LISINOPRIL 10 MG TABLET GT SCH (09:00)
[2018-09-21] MEDS: METOPROLOL TARTRATE 25 MG TABLET GT SCH ×2 (09:00→21:31)
[2018-09-21] MEDS: LEVETIRACETAM 500 MG/5 ML LIQUID UDC GT SCH ×2 (09:09→21:29)
[2018-09-21] MEDS: VIMPAT 200 MG GT SCH ×2 (09:10→21:21)
[2018-09-21] MEDS: PHENOBARBITAL 30 MG/7.5 ML LIQUID UDC GT SCH ×2 (09:10→21:21)
[2018-09-21] MEDS: Z GUARD REMEDY PASTE 57 GM TUBE TOP SCH ×2 (09:10→21:31)
[2018-09-21] MEDS: ASCORBIC ACID 500 MG TABLET GT SCH ×2 (09:10→21:28)
[2018-09-21] MEDS: DIAZEPAM 5 MG TABLET GT SCH ×2 (09:10→21:21)
[2018-09-21] MEDS: VITAMINS A AND D OINT TP SCH ×2 (09:11→21:31)
[2018-09-21] MEDS: HYDROGEN PEROXIDE 3% 118 ML BOTTLE TP SCH ×2 (09:11→21:31)
[2018-09-21 11:27] VITALS: BP 116/53
[2018-09-21 21:15] VITALS: BP 123/72
[2018-09-21] MEDS: MULTIVIT, IRON, MIN NO. 8, FA TABLET GT SCH (21:31)
[2018-09-22 08:05] VITALS: BP 163/98
[2018-09-22] MEDS: DIAZEPAM 5 MG TABLET GT SCH ×2 (08:14→21:00)
[2018-09-22] MEDS: HYDROGEN PEROXIDE 3% 118 ML BOTTLE TP SCH ×2 (08:14→21:00)
[2018-09-22] MEDS: LEVETIRACETAM 500 MG/5 ML LIQUID UDC GT SCH ×2 (08:14→21:00)
[2018-09-22] MEDS: VIMPAT 200 MG GT SCH ×2 (08:14→21:00)
[2018-09-22] MEDS: LISINOPRIL 10 MG TABLET GT SCH (08:14)
[2018-09-22] MEDS: AMLODIPINE 10 MG TABLET GT SCH (08:14)
[2018-09-22] MEDS: PHENOBARBITAL 30 MG/7.5 ML LIQUID UDC GT SCH ×2 (08:14→21:00)
[2018-09-22] MEDS: ASCORBIC ACID 500 MG TABLET GT SCH ×2 (08:14→21:00)
[2018-09-22] MEDS: METOPROLOL TARTRATE 25 MG TABLET GT SCH ×2 (08:14→21:00)
[2018-09-22] MEDS: Z GUARD REMEDY PASTE 57 GM TUBE TOP SCH ×2 (08:14→21:00)
[2018-09-22] MEDS: VITAMINS A AND D OINT TP SCH ×2 (08:14→21:00)
[2018-09-22] MEDS: MULTIVIT, IRON, MIN NO. 8, FA TABLET GT SCH (21:00)
[2018-09-22 21:41] VITALS: BP 140/83
[2018-09-23 08:05] VITALS: BP 155/99
[2018-09-23] MEDS: LEVETIRACETAM 500 MG/5 ML LIQUID UDC GT SCH ×2 (09:11→21:40)
[2018-09-23] MEDS: VIMPAT 200 MG GT SCH ×2 (09:12→21:42)
[2018-09-23] MEDS: METOPROLOL TARTRATE 25 MG TABLET GT SCH ×2 (09:12→21:41)
[2018-09-23] MEDS: PHENOBARBITAL 30 MG/7.5 ML LIQUID UDC GT SCH ×2 (09:13→21:45)
[2018-09-23] MEDS: LISINOPRIL 10 MG TABLET GT SCH (09:13)
[2018-09-23] MEDS: HYDROGEN PEROXIDE 3% 118 ML BOTTLE TP SCH ×2 (09:13→21:47)
[2018-09-23] MEDS: AMLODIPINE 10 MG TABLET GT SCH (09:13)
[2018-09-23] MEDS: VITAMINS A AND D OINT TP SCH ×2 (09:13→21:47)
[2018-09-23] MEDS: DIAZEPAM 5 MG TABLET GT SCH ×2 (09:13→21:48)
[2018-09-23] MEDS: ASCORBIC ACID 500 MG TABLET GT SCH ×2 (09:13→21:47)
[2018-09-23] MEDS: Z GUARD REMEDY PASTE 57 GM TUBE TOP SCH ×2 (09:13→21:47)
[2018-09-23] MEDS: VITAL AF 1.2 1,000 ML LIQUID GT PRN (12:43)
[2018-09-23 21:04] VITALS: BP 130/82
[2018-09-23] MEDS: MULTIVIT, IRON, MIN NO. 8, FA TABLET GT SCH (21:45)
[2018-09-24] MEDS: VITAL AF 1.2 1,000 ML LIQUID GT PRN (03:09)
[2018-09-24 08:05] VITALS: BP 144/92
[2018-09-24] MEDS: LEVETIRACETAM 500 MG/5 ML LIQUID UDC GT SCH ×2 (08:31→21:56)
[2018-09-24] MEDS: PHENOBARBITAL 30 MG/7.5 ML LIQUID UDC GT SCH ×2 (08:42→21:56)
[2018-09-24] MEDS: AMLODIPINE 10 MG TABLET GT SCH (08:42)
[2018-09-24] MEDS: METOPROLOL TARTRATE 25 MG TABLET GT SCH ×2 (08:42→21:56)
[2018-09-24] MEDS: Z GUARD REMEDY PASTE 57 GM TUBE TOP SCH ×2 (08:43→21:56)
[2018-09-24] MEDS: HYDROGEN PEROXIDE 3% 118 ML BOTTLE TP SCH ×2 (08:43→21:56)
[2018-09-24] MEDS: VIMPAT 200 MG GT SCH ×2 (08:43→21:56)
[2018-09-24] MEDS: LISINOPRIL 10 MG TABLET GT SCH (08:43)
[2018-09-24] MEDS: ASCORBIC ACID 500 MG TABLET GT SCH ×2 (08:43→21:56)
[2018-09-24] MEDS: DIAZEPAM 5 MG TABLET GT SCH ×2 (08:43→21:56)
[2018-09-24] MEDS: VITAMINS A AND D OINT TP SCH ×2 (08:44→21:56)
[2018-09-24 20:00] VITALS: BP 131/88
[2018-09-24] MEDS: MULTIVIT, IRON, MIN NO. 8, FA TABLET GT SCH (21:56)
[2018-09-25 08:12] VITALS: BP 114/72
[2018-09-25] MEDS: LEVETIRACETAM 500 MG/5 ML LIQUID UDC GT SCH ×2 (09:58→21:00)
[2018-09-25] MEDS: METOPROLOL TARTRATE 25 MG TABLET GT SCH ×2 (09:58→21:00)
[2018-09-25] MEDS: AMLODIPINE 10 MG TABLET GT SCH (09:58)
[2018-09-25] MEDS: VIMPAT 200 MG GT SCH ×2 (09:58→21:00)
[2018-09-25] MEDS: PHENOBARBITAL 30 MG/7.5 ML LIQUID UDC GT SCH ×2 (09:58→21:00)
[2018-09-25] MEDS: LISINOPRIL 10 MG TABLET GT SCH (09:58)
[2018-09-25] MEDS: DIAZEPAM 5 MG TABLET GT SCH ×2 (09:58→21:00)
[2018-09-25] MEDS: HYDROGEN PEROXIDE 3% 118 ML BOTTLE TP SCH ×2 (09:59→21:00)
[2018-09-25] MEDS: Z GUARD REMEDY PASTE 57 GM TUBE TOP SCH ×2 (09:59→21:00)
[2018-09-25] MEDS: ASCORBIC ACID 500 MG TABLET GT SCH ×2 (09:59→21:00)
[2018-09-25] MEDS: VITAMINS A AND D OINT TP SCH ×2 (09:59→21:00)
[2018-09-25 20:36] VITALS: BP 123/71
[2018-09-25] MEDS: MULTIVIT, IRON, MIN NO. 8, FA TABLET GT SCH (21:00)
[2018-09-26] MEDS: METOPROLOL TARTRATE 25 MG TABLET GT SCH ×2 (08:27→20:38)
[2018-09-26] MEDS: LEVETIRACETAM 500 MG/5 ML LIQUID UDC GT SCH ×2 (08:27→20:37)
[2018-09-26] MEDS: PHENOBARBITAL 30 MG/7.5 ML LIQUID UDC GT SCH ×2 (08:28→20:38)
[2018-09-26] MEDS: AMLODIPINE 10 MG TABLET GT SCH (08:28)
[2018-09-26] MEDS: VIMPAT 200 MG GT SCH ×2 (08:28→20:38)
[2018-09-26] MEDS: ASCORBIC ACID 500 MG TABLET GT SCH ×2 (08:29→20:38)
[2018-09-26] MEDS: DIAZEPAM 5 MG TABLET GT SCH ×2 (08:29→20:38)
[2018-09-26] MEDS: LISINOPRIL 10 MG TABLET GT SCH (08:29)
[2018-09-26] MEDS: Z GUARD REMEDY PASTE 57 GM TUBE TOP SCH ×2 (08:29→20:38)
[2018-09-26] MEDS: HYDROGEN PEROXIDE 3% 118 ML BOTTLE TP SCH ×2 (08:29→20:38)
[2018-09-26] MEDS: VITAMINS A AND D OINT TP SCH ×2 (08:29→20:38)
[2018-09-26 10:19] VITALS: BP 134/87
[2018-09-26] MEDS: VITAL AF 1.2 1,000 ML LIQUID GT PRN (17:50)
[2018-09-26] MEDS: MULTIVIT, IRON, MIN NO. 8, FA TABLET GT SCH (20:38)
[2018-09-26 22:00] VITALS: BP 139/92
[2018-09-27 08:00] VITALS: BP 148/91
[2018-09-27] MEDS: LEVETIRACETAM 500 MG/5 ML LIQUID UDC GT SCH ×2 (08:04→21:17)
[2018-09-27] MEDS: VIMPAT 200 MG GT SCH ×2 (08:05→21:18)
[2018-09-27] MEDS: METOPROLOL TARTRATE 25 MG TABLET GT SCH ×2 (08:05→21:00)
[2018-09-27] MEDS: AMLODIPINE 10 MG TABLET GT SCH (08:09)
[2018-09-27] MEDS: PHENOBARBITAL 30 MG/7.5 ML LIQUID UDC GT SCH ×2 (08:09→21:18)
[2018-09-27] MEDS: ASCORBIC ACID 500 MG TABLET GT SCH ×2 (08:10→21:18)
[2018-09-27] MEDS: Z GUARD REMEDY PASTE 57 GM TUBE TOP SCH ×2 (08:10→21:18)
[2018-09-27] MEDS: VITAMINS A AND D OINT TP SCH ×2 (08:10→21:18)
[2018-09-27] MEDS: DIAZEPAM 5 MG TABLET GT SCH ×2 (08:10→21:18)
[2018-09-27] MEDS: HYDROGEN PEROXIDE 3% 118 ML BOTTLE TP SCH ×2 (08:10→21:18)
[2018-09-27] MEDS: LISINOPRIL 10 MG TABLET GT SCH (08:10)
[2018-09-27] MEDS: MULTIVIT, IRON, MIN NO. 8, FA TABLET GT SCH (21:18)
[2018-09-27] MEDS: ACETAMINOPHEN 650 MG/20 ML UDC- SA PATIENTS-PAIN ONLY GT PRN (23:16)
[2018-09-28 03:36] VITALS: BP 159/79
[2018-09-28] MEDS: VITAL AF 1.2 1,000 ML LIQUID GT PRN ×2 (06:39→21:43)
[2018-09-28 08:04] VITALS: BP 146/91
[2018-09-28] MEDS: LEVETIRACETAM 500 MG/5 ML LIQUID UDC GT SCH ×2 (08:06→21:38)
[2018-09-28] MEDS: PHENOBARBITAL 30 MG/7.5 ML LIQUID UDC GT SCH ×2 (08:07→21:40)
[2018-09-28] MEDS: Z GUARD REMEDY PASTE 57 GM TUBE TOP SCH ×2 (08:07→21:43)
[2018-09-28] MEDS: VIMPAT 200 MG GT SCH ×2 (08:07→21:40)
[2018-09-28] MEDS: DIAZEPAM 5 MG TABLET GT SCH ×2 (08:07→21:43)
[2018-09-28] MEDS: HYDROGEN PEROXIDE 3% 118 ML BOTTLE TP SCH ×2 (08:07→21:43)
[2018-09-28] MEDS: ASCORBIC ACID 500 MG TABLET GT SCH ×2 (08:07→21:43)
[2018-09-28] MEDS: VITAMINS A AND D OINT TP SCH ×2 (08:07→21:43)
[2018-09-28] MEDS: METOPROLOL TARTRATE 25 MG TABLET GT SCH ×2 (08:07→21:40)
[2018-09-28] MEDS: AMLODIPINE 10 MG TABLET GT SCH (08:07)
[2018-09-28] MEDS: LISINOPRIL 10 MG TABLET GT SCH (08:07)
[2018-09-28] MEDS: MULTIVIT, IRON, MIN NO. 8, FA TABLET GT SCH (21:42)
[2018-09-28 22:00] VITALS: BP 118/75
[2018-09-29] MEDS: LEVETIRACETAM 500 MG/5 ML LIQUID UDC GT SCH ×2 (08:23→21:49)
[2018-09-29] MEDS: METOPROLOL TARTRATE 25 MG TABLET GT SCH ×2 (08:24→21:00)
[2018-09-29] MEDS: VIMPAT 200 MG GT SCH ×2 (08:24→21:52)
[2018-09-29] MEDS: AMLODIPINE 10 MG TABLET GT SCH (08:24)
[2018-09-29] MEDS: VITAMINS A AND D OINT TP SCH ×2 (08:25→21:52)
[2018-09-29] MEDS: Z GUARD REMEDY PASTE 57 GM TUBE TOP SCH ×2 (08:25→21:52)
[2018-09-29] MEDS: PHENOBARBITAL 30 MG/7.5 ML LIQUID UDC GT SCH ×2 (08:25→21:52)
[2018-09-29] MEDS: HYDROGEN PEROXIDE 3% 118 ML BOTTLE TP SCH ×2 (08:25→21:52)
[2018-09-29] MEDS: LISINOPRIL 10 MG TABLET GT SCH (08:25)
[2018-09-29] MEDS: DIAZEPAM 5 MG TABLET GT SCH ×2 (08:25→21:52)
[2018-09-29] MEDS: ASCORBIC ACID 500 MG TABLET GT SCH ×2 (08:25→21:52)
[2018-09-29 11:19] VITALS: BP 95/63
[2018-09-29] MEDS: VITAL AF 1.2 1,000 ML LIQUID GT PRN (14:46)
[2018-09-29] MEDS: MULTIVIT, IRON, MIN NO. 8, FA TABLET GT SCH (21:52)
[2018-09-29 22:00] VITALS: BP 89/59
[2018-09-30 08:18] VITALS: BP_SYST 103; BP_SYST 91; BP_DIAS 57; BP_DIAS 72
[2018-09-30] MEDS: LEVETIRACETAM 500 MG/5 ML LIQUID UDC GT SCH ×2 (08:23→21:48)
[2018-09-30] MEDS: PHENOBARBITAL 30 MG/7.5 ML LIQUID UDC GT SCH ×2 (08:23→21:49)
[2018-09-30] MEDS: LISINOPRIL 10 MG TABLET GT SCH (08:23)
[2018-09-30] MEDS: METOPROLOL TARTRATE 25 MG TABLET GT SCH ×2 (08:23→21:00)
[2018-09-30] MEDS: VIMPAT 200 MG GT SCH ×2 (08:23→21:49)
[2018-09-30] MEDS: AMLODIPINE 10 MG TABLET GT SCH (08:23)
[2018-09-30] MEDS: ASCORBIC ACID 500 MG TABLET GT SCH ×2 (08:24→21:50)
[2018-09-30] MEDS: DIAZEPAM 5 MG TABLET GT SCH ×2 (08:24→21:50)
[2018-09-30] MEDS: HYDROGEN PEROXIDE 3% 118 ML BOTTLE TP SCH ×2 (08:24→21:50)
[2018-09-30] MEDS: Z GUARD REMEDY PASTE 57 GM TUBE TOP SCH ×2 (08:24→21:50)
[2018-09-30] MEDS: VITAMINS A AND D OINT TP SCH ×2 (08:24→21:50)
[2018-09-30] MEDS: VITAL AF 1.2 1,000 ML LIQUID GT PRN (19:36)
[2018-09-30 20:00] VITALS: BP 116/76
[2018-09-30] MEDS: MULTIVIT, IRON, MIN NO. 8, FA TABLET GT SCH (21:50)
[2018-10-01 08:05] VITALS: BP 118/77
[2018-10-01] MEDS: LEVETIRACETAM 500 MG/5 ML LIQUID UDC GT SCH ×2 (08:14→20:38)
[2018-10-01] MEDS: VIMPAT 200 MG GT SCH ×2 (08:15→20:38)
[2018-10-01] MEDS: AMLODIPINE 10 MG TABLET GT SCH (08:15)
[2018-10-01] MEDS: LISINOPRIL 10 MG TABLET GT SCH (08:15)
[2018-10-01] MEDS: METOPROLOL TARTRATE 25 MG TABLET GT SCH ×2 (08:15→20:38)
[2018-10-01] MEDS: PHENOBARBITAL 30 MG/7.5 ML LIQUID UDC GT SCH ×2 (08:15→20:40)
[2018-10-01] MEDS: HYDROGEN PEROXIDE 3% 118 ML BOTTLE TP SCH ×2 (08:16→20:41)
[2018-10-01] MEDS: VITAMINS A AND D OINT TP SCH ×2 (08:16→20:41)
[2018-10-01] MEDS: ASCORBIC ACID 500 MG TABLET GT SCH ×2 (08:16→20:41)
[2018-10-01] MEDS: DIAZEPAM 5 MG TABLET GT SCH ×2 (08:16→20:41)
[2018-10-01] MEDS: Z GUARD REMEDY PASTE 57 GM TUBE TOP SCH ×2 (08:16→20:41)
[2018-10-01] MEDS: VITAL AF 1.2 1,000 ML LIQUID GT PRN (12:30)
[2018-10-01] MEDS: MULTIVIT, IRON, MIN NO. 8, FA TABLET GT SCH (20:40)
[2018-10-01 21:38] VITALS: BP 135/90
[2018-10-02 08:04] VITALS: BP 124/82
[2018-10-02] MEDS: VIMPAT 200 MG GT SCH ×2 (08:12→20:52)
[2018-10-02] MEDS: METOPROLOL TARTRATE 25 MG TABLET GT SCH ×2 (08:12→20:52)
[2018-10-02] MEDS: LEVETIRACETAM 500 MG/5 ML LIQUID UDC GT SCH ×2 (08:12→20:52)
[2018-10-02] MEDS: Z GUARD REMEDY PASTE 57 GM TUBE TOP SCH ×2 (08:13→20:53)
[2018-10-02] MEDS: VITAMINS A AND D OINT TP SCH ×2 (08:13→20:53)
[2018-10-02] MEDS: HYDROGEN PEROXIDE 3% 118 ML BOTTLE TP SCH ×2 (08:13→20:53)
[2018-10-02] MEDS: ASCORBIC ACID 500 MG TABLET GT SCH ×2 (08:13→20:52)
[2018-10-02] MEDS: AMLODIPINE 10 MG TABLET GT SCH (08:13)
[2018-10-02] MEDS: DIAZEPAM 5 MG TABLET GT SCH ×2 (08:13→20:52)
[2018-10-02] MEDS: LISINOPRIL 10 MG TABLET GT SCH (08:13)
[2018-10-02] MEDS: PHENOBARBITAL 30 MG/7.5 ML LIQUID UDC GT SCH ×2 (08:13→20:52)
[2018-10-02] MEDS: VITAL AF 1.2 1,000 ML LIQUID GT PRN (18:58)
[2018-10-02 20:35] VITALS: BP 127/84
[2018-10-02] MEDS: MULTIVIT, IRON, MIN NO. 8, FA TABLET GT SCH (20:52)
[2018-10-03 08:05] VITALS: BP 119/76
[2018-10-03] MEDS: METOPROLOL TARTRATE 25 MG TABLET GT SCH ×2 (08:34→21:01)
[2018-10-03] MEDS: LEVETIRACETAM 500 MG/5 ML LIQUID UDC GT SCH ×2 (08:34→21:01)
[2018-10-03] MEDS: DIAZEPAM 5 MG TABLET GT SCH ×2 (08:35→21:01)
[2018-10-03] MEDS: ASCORBIC ACID 500 MG TABLET GT SCH ×2 (08:35→21:01)
[2018-10-03] MEDS: PHENOBARBITAL 30 MG/7.5 ML LIQUID UDC GT SCH ×2 (08:35→21:01)
[2018-10-03] MEDS: VIMPAT 200 MG GT SCH ×2 (08:35→21:01)
[2018-10-03] MEDS: LISINOPRIL 10 MG TABLET GT SCH (08:35)
[2018-10-03] MEDS: AMLODIPINE 10 MG TABLET GT SCH (08:35)
[2018-10-03] MEDS: Z GUARD REMEDY PASTE 57 GM TUBE TOP SCH ×2 (08:36→21:01)
[2018-10-03] MEDS: VITAL AF 1.2 1,000 ML LIQUID GT PRN (08:36)
[2018-10-03] MEDS: VITAMINS A AND D OINT TP SCH ×2 (08:36→21:01)
[2018-10-03] MEDS: HYDROGEN PEROXIDE 3% 118 ML BOTTLE TP SCH ×2 (08:36→21:01)
[2018-10-03] MEDS: MULTIVIT, IRON, MIN NO. 8, FA TABLET GT SCH (21:01)
[2018-10-03 22:00] VITALS: BP 158/93
[2018-10-04] MEDS: VITAL AF 1.2 1,000 ML LIQUID GT PRN ×2 (03:45→17:15)
[2018-10-04] MEDS: AMLODIPINE 10 MG TABLET GT SCH (09:00)
[2018-10-04] MEDS: LISINOPRIL 10 MG TABLET GT SCH (09:00)
[2018-10-04] MEDS: METOPROLOL TARTRATE 25 MG TABLET GT SCH ×2 (09:00→21:00)
[2018-10-04] MEDS: LEVETIRACETAM 500 MG/5 ML LIQUID UDC GT SCH ×2 (09:05→21:00)
[2018-10-04] MEDS: ASCORBIC ACID 500 MG TABLET GT SCH ×2 (09:06→21:00)
[2018-10-04] MEDS: Z GUARD REMEDY PASTE 57 GM TUBE TOP SCH ×2 (09:06→21:00)
[2018-10-04] MEDS: VIMPAT 200 MG GT SCH ×2 (09:06→21:00)
[2018-10-04] MEDS: HYDROGEN PEROXIDE 3% 118 ML BOTTLE TP SCH ×2 (09:06→21:00)
[2018-10-04] MEDS: DIAZEPAM 5 MG TABLET GT SCH ×2 (09:06→21:00)
[2018-10-04] MEDS: PHENOBARBITAL 30 MG/7.5 ML LIQUID UDC GT SCH ×2 (09:06→21:00)
[2018-10-04] MEDS: VITAMINS A AND D OINT TP SCH ×2 (09:07→21:00)
[2018-10-04 13:04] VITALS: BP 114/76
[2018-10-04] MEDS: MULTIVIT, IRON, MIN NO. 8, FA TABLET GT SCH (21:00)
[2018-10-04 22:35] VITALS: BP 138/94
[2018-10-05] MEDS: LEVETIRACETAM 500 MG/5 ML LIQUID UDC GT SCH ×2 (08:19→20:48)
[2018-10-05] MEDS: AMLODIPINE 10 MG TABLET GT SCH (08:27)
[2018-10-05] MEDS: METOPROLOL TARTRATE 25 MG TABLET GT SCH ×2 (08:27→20:49)
[2018-10-05] MEDS: LISINOPRIL 10 MG TABLET GT SCH (08:27)
[2018-10-05] MEDS: HYDROGEN PEROXIDE 3% 118 ML BOTTLE TP SCH ×2 (08:27→20:51)
[2018-10-05] MEDS: DIAZEPAM 5 MG TABLET GT SCH ×2 (08:27→20:50)
[2018-10-05] MEDS: ASCORBIC ACID 500 MG TABLET GT SCH ×2 (08:27→20:50)
[2018-10-05] MEDS: PHENOBARBITAL 30 MG/7.5 ML LIQUID UDC GT SCH ×2 (08:27→20:50)
[2018-10-05] MEDS: Z GUARD REMEDY PASTE 57 GM TUBE TOP SCH ×2 (08:27→20:50)
[2018-10-05] MEDS: VIMPAT 200 MG GT SCH ×2 (08:27→20:50)
[2018-10-05] MEDS: VITAMINS A AND D OINT TP SCH ×2 (08:28→20:51)
[2018-10-05 11:39] VITALS: BP 126/85
[2018-10-05] MEDS: VITAL AF 1.2 1,000 ML LIQUID GT PRN (11:47)
[2018-10-05] MEDS: MULTIVIT, IRON, MIN NO. 8, FA TABLET GT SCH (20:50)
[2018-10-05 22:13] VITALS: BP 134/89
[2018-10-06] MEDS: VITAL AF 1.2 1,000 ML LIQUID GT PRN (02:01)
[2018-10-06] MEDS: LEVETIRACETAM 500 MG/5 ML LIQUID UDC GT SCH ×2 (08:06→21:00)
[2018-10-06] MEDS: PHENOBARBITAL 30 MG/7.5 ML LIQUID UDC GT SCH ×2 (08:07→21:00)
[2018-10-06] MEDS: Z GUARD REMEDY PASTE 57 GM TUBE TOP SCH ×2 (08:07→21:00)
[2018-10-06] MEDS: DIAZEPAM 5 MG TABLET GT SCH ×2 (08:07→21:00)
[2018-10-06] MEDS: VIMPAT 200 MG GT SCH ×2 (08:07→21:00)
[2018-10-06] MEDS: HYDROGEN PEROXIDE 3% 118 ML BOTTLE TP SCH ×2 (08:07→21:00)
[2018-10-06] MEDS: METOPROLOL TARTRATE 25 MG TABLET GT SCH ×2 (08:07→21:00)
[2018-10-06] MEDS: LISINOPRIL 10 MG TABLET GT SCH (08:07)
[2018-10-06] MEDS: ASCORBIC ACID 500 MG TABLET GT SCH ×2 (08:07→21:00)
[2018-10-06] MEDS: AMLODIPINE 10 MG TABLET GT SCH (08:07)
[2018-10-06] MEDS: VITAMINS A AND D OINT TP SCH ×2 (08:08→21:00)
[2018-10-06 09:17] VITALS: BP 133/85
[2018-10-06] MEDS: MULTIVIT, IRON, MIN NO. 8, FA TABLET GT SCH (21:00)
[2018-10-06 22:00] VITALS: BP 144/90
[2018-10-07] MEDS: LEVETIRACETAM 500 MG/5 ML LIQUID UDC GT SCH ×2 (08:09→21:35)
[2018-10-07] MEDS: ASCORBIC ACID 500 MG TABLET GT SCH ×2 (08:10→21:37)
[2018-10-07] MEDS: METOPROLOL TARTRATE 25 MG TABLET GT SCH ×3 (08:10→21:59)
[2018-10-07] MEDS: AMLODIPINE 10 MG TABLET GT SCH (08:10)
[2018-10-07] MEDS: VIMPAT 200 MG GT SCH ×2 (08:10→21:37)
[2018-10-07] MEDS: HYDROGEN PEROXIDE 3% 118 ML BOTTLE TP SCH ×2 (08:10→21:37)
[2018-10-07] MEDS: DIAZEPAM 5 MG TABLET GT SCH ×2 (08:10→21:37)
[2018-10-07] MEDS: VITAMINS A AND D OINT TP SCH ×2 (08:10→21:37)
[2018-10-07] MEDS: LISINOPRIL 10 MG TABLET GT SCH (08:10)
[2018-10-07] MEDS: Z GUARD REMEDY PASTE 57 GM TUBE TOP SCH ×2 (08:10→21:37)
[2018-10-07] MEDS: PHENOBARBITAL 30 MG/7.5 ML LIQUID UDC GT SCH ×2 (08:10→21:37)
[2018-10-07] MEDS: VITAL AF 1.2 1,000 ML LIQUID GT PRN (11:36)
[2018-10-07 12:17] VITALS: BP 128/87
[2018-10-07 20:00] VITALS: BP 137/89
[2018-10-07] MEDS: MULTIVIT, IRON, MIN NO. 8, FA TABLET GT SCH (21:37)
[2018-10-08] MEDS: VITAL AF 1.2 1,000 ML LIQUID GT PRN ×2 (01:41→18:02)
[2018-10-08] MEDS: VIMPAT 200 MG GT SCH ×2 (08:24→20:24)
[2018-10-08] MEDS: LEVETIRACETAM 500 MG/5 ML LIQUID UDC GT SCH ×2 (08:24→20:23)
[2018-10-08] MEDS: METOPROLOL TARTRATE 25 MG TABLET GT SCH ×2 (08:24→20:24)
[2018-10-08] MEDS: AMLODIPINE 10 MG TABLET GT SCH (08:25)
[2018-10-08] MEDS: LISINOPRIL 10 MG TABLET GT SCH (08:26)
[2018-10-08] MEDS: ASCORBIC ACID 500 MG TABLET GT SCH ×2 (08:28→20:26)
[2018-10-08] MEDS: Z GUARD REMEDY PASTE 57 GM TUBE TOP SCH ×2 (08:28→20:26)
[2018-10-08] MEDS: PHENOBARBITAL 30 MG/7.5 ML LIQUID UDC GT SCH ×2 (08:28→20:24)
[2018-10-08] MEDS: HYDROGEN PEROXIDE 3% 118 ML BOTTLE TP SCH ×2 (08:28→20:26)
[2018-10-08] MEDS: DIAZEPAM 5 MG TABLET GT SCH ×2 (08:28→20:26)
[2018-10-08] MEDS: VITAMINS A AND D OINT TP SCH ×2 (08:28→20:26)
[2018-10-08 13:32] VITALS: BP 136/81
[2018-10-08] MEDS: MULTIVIT, IRON, MIN NO. 8, FA TABLET GT SCH (20:24)
[2018-10-08 20:27] VITALS: BP 142/90
[2018-10-09 08:00] VITALS: BP 149/92
[2018-10-09] MEDS: AMLODIPINE 10 MG TABLET GT SCH (08:04)
[2018-10-09] MEDS: DIAZEPAM 5 MG TABLET GT SCH ×2 (08:04→21:05)
[2018-10-09] MEDS: VIMPAT 200 MG GT SCH ×2 (08:04→21:05)
[2018-10-09] MEDS: VITAMINS A AND D OINT TP SCH ×2 (08:04→21:06)
[2018-10-09] MEDS: METOPROLOL TARTRATE 25 MG TABLET GT SCH ×2 (08:04→21:05)
[2018-10-09] MEDS: LISINOPRIL 10 MG TABLET GT SCH (08:04)
[2018-10-09] MEDS: ASCORBIC ACID 500 MG TABLET GT SCH ×2 (08:04→21:06)
[2018-10-09] MEDS: PHENOBARBITAL 30 MG/7.5 ML LIQUID UDC GT SCH ×2 (08:04→21:05)
[2018-10-09] MEDS: LEVETIRACETAM 500 MG/5 ML LIQUID UDC GT SCH ×2 (08:04→21:05)
[2018-10-09] MEDS: HYDROGEN PEROXIDE 3% 118 ML BOTTLE TP SCH ×2 (08:04→21:06)
[2018-10-09] MEDS: Z GUARD REMEDY PASTE 57 GM TUBE TOP SCH ×2 (08:04→21:06)
[2018-10-09] MEDS: VITAL AF 1.2 1,000 ML LIQUID GT PRN (09:56)
[2018-10-09 20:11] VITALS: BP 141/94
[2018-10-09] MEDS: MULTIVIT, IRON, MIN NO. 8, FA TABLET GT SCH (21:05)
[2018-10-10] MEDS: VITAL AF 1.2 1,000 ML LIQUID GT PRN ×2 (00:35→17:25)
[2018-10-10 07:47] VITALS: BP 122/62
[2018-10-10] MEDS: METOPROLOL TARTRATE 25 MG TABLET GT SCH ×2 (08:03→21:34)
[2018-10-10] MEDS: LEVETIRACETAM 500 MG/5 ML LIQUID UDC GT SCH ×2 (08:03→21:34)
[2018-10-10] MEDS: VIMPAT 200 MG GT SCH ×2 (08:03→21:34)
[2018-10-10] MEDS: Z GUARD REMEDY PASTE 57 GM TUBE TOP SCH ×2 (08:04→21:35)
[2018-10-10] MEDS: AMLODIPINE 10 MG TABLET GT SCH (08:04)
[2018-10-10] MEDS: ASCORBIC ACID 500 MG TABLET GT SCH ×2 (08:04→21:35)
[2018-10-10] MEDS: HYDROGEN PEROXIDE 3% 118 ML BOTTLE TP SCH ×2 (08:04→21:35)
[2018-10-10] MEDS: LISINOPRIL 10 MG TABLET GT SCH (08:04)
[2018-10-10] MEDS: DIAZEPAM 5 MG TABLET GT SCH ×2 (08:04→21:34)
[2018-10-10] MEDS: VITAMINS A AND D OINT TP SCH ×2 (08:04→21:35)
[2018-10-10] MEDS: PHENOBARBITAL 30 MG/7.5 ML LIQUID UDC GT SCH ×2 (08:04→21:34)
[2018-10-10 20:12] VITALS: BP 135/84
[2018-10-10] MEDS: MULTIVIT, IRON, MIN NO. 8, FA TABLET GT SCH (21:34)
[2018-10-11 08:10] VITALS: BP 133/81
[2018-10-11] MEDS: LEVETIRACETAM 500 MG/5 ML LIQUID UDC GT SCH ×2 (09:24→21:42)
[2018-10-11] MEDS: AMLODIPINE 10 MG TABLET GT SCH (09:25)
[2018-10-11] MEDS: VIMPAT 200 MG GT SCH ×2 (09:25→21:43)
[2018-10-11] MEDS: LISINOPRIL 10 MG TABLET GT SCH (09:25)
[2018-10-11] MEDS: ASCORBIC ACID 500 MG TABLET GT SCH ×2 (09:25→21:43)
[2018-10-11] MEDS: METOPROLOL TARTRATE 25 MG TABLET GT SCH ×2 (09:25→21:43)
[2018-10-11] MEDS: DIAZEPAM 5 MG TABLET GT SCH ×2 (09:25→21:43)
[2018-10-11] MEDS: PHENOBARBITAL 30 MG/7.5 ML LIQUID UDC GT SCH ×2 (09:25→21:43)
[2018-10-11] MEDS: VITAMINS A AND D OINT TP SCH ×2 (09:26→21:43)
[2018-10-11] MEDS: Z GUARD REMEDY PASTE 57 GM TUBE TOP SCH ×2 (09:26→21:43)
[2018-10-11] MEDS: HYDROGEN PEROXIDE 3% 118 ML BOTTLE TP SCH ×2 (09:26→21:43)
[2018-10-11 20:44] VITALS: BP 159/97
[2018-10-11] MEDS: MULTIVIT, IRON, MIN NO. 8, FA TABLET GT SCH (21:43)
[2018-10-12] MEDS: VITAL AF 1.2 1,000 ML LIQUID GT PRN ×2 (02:00→17:06)
[2018-10-12 08:00] VITALS: BP 112/60
[2018-10-12] MEDS: LEVETIRACETAM 500 MG/5 ML LIQUID UDC GT SCH ×2 (08:06→21:15)
[2018-10-12] MEDS: METOPROLOL TARTRATE 25 MG TABLET GT SCH ×2 (08:06→21:00)
[2018-10-12] MEDS: AMLODIPINE 10 MG TABLET GT SCH (08:07)
[2018-10-12] MEDS: VIMPAT 200 MG GT SCH ×2 (08:07→21:16)
[2018-10-12] MEDS: LISINOPRIL 10 MG TABLET GT SCH (08:08)
[2018-10-12] MEDS: DIAZEPAM 5 MG TABLET GT SCH ×2 (08:08→21:16)
[2018-10-12] MEDS: PHENOBARBITAL 30 MG/7.5 ML LIQUID UDC GT SCH ×2 (08:08→21:16)
[2018-10-12] MEDS: ASCORBIC ACID 500 MG TABLET GT SCH ×2 (08:09→21:17)
[2018-10-12] MEDS: HYDROGEN PEROXIDE 3% 118 ML BOTTLE TP SCH ×2 (08:09→21:17)
[2018-10-12] MEDS: VITAMINS A AND D OINT TP SCH ×2 (08:09→21:17)
[2018-10-12] MEDS: Z GUARD REMEDY PASTE 57 GM TUBE TOP SCH ×2 (08:09→21:17)
[2018-10-12] MEDS: MULTIVIT, IRON, MIN NO. 8, FA TABLET GT SCH (21:16)
[2018-10-12 21:29] VITALS: BP 113/62
[2018-10-13 08:05] VITALS: BP 135/90
[2018-10-13] MEDS: LEVETIRACETAM 500 MG/5 ML LIQUID UDC GT SCH ×2 (08:37→21:25)
[2018-10-13] MEDS: DIAZEPAM 5 MG TABLET GT SCH ×2 (08:38→21:25)
[2018-10-13] MEDS: METOPROLOL TARTRATE 25 MG TABLET GT SCH ×2 (08:38→21:25)
[2018-10-13] MEDS: VIMPAT 200 MG GT SCH ×2 (08:38→21:25)
[2018-10-13] MEDS: AMLODIPINE 10 MG TABLET GT SCH (08:38)
[2018-10-13] MEDS: LISINOPRIL 10 MG TABLET GT SCH (08:38)
[2018-10-13] MEDS: PHENOBARBITAL 30 MG/7.5 ML LIQUID UDC GT SCH ×2 (08:38→21:25)
[2018-10-13] MEDS: VITAMINS A AND D OINT TP SCH ×2 (08:39→21:26)
[2018-10-13] MEDS: HYDROGEN PEROXIDE 3% 118 ML BOTTLE TP SCH ×2 (08:39→21:26)
[2018-10-13] MEDS: ASCORBIC ACID 500 MG TABLET GT SCH ×2 (08:39→21:25)
[2018-10-13] MEDS: Z GUARD REMEDY PASTE 57 GM TUBE TOP SCH ×2 (08:39→21:25)
[2018-10-13] MEDS: VITAL AF 1.2 1,000 ML LIQUID GT PRN (17:16)
[2018-10-13 20:35] VITALS: BP 143/94
[2018-10-13] MEDS: MULTIVIT, IRON, MIN NO. 8, FA TABLET GT SCH (21:25)
[2018-10-14] MEDS: VITAMINS A AND D OINT TP SCH ×2 (09:00→20:41)
[2018-10-14] MEDS: ASCORBIC ACID 500 MG TABLET GT SCH ×2 (09:00→20:41)
[2018-10-14] MEDS: VIMPAT 200 MG GT SCH ×2 (09:00→20:41)
[2018-10-14] MEDS: PHENOBARBITAL 30 MG/7.5 ML LIQUID UDC GT SCH ×2 (09:00→20:41)
[2018-10-14] MEDS: DIAZEPAM 5 MG TABLET GT SCH ×2 (09:00→20:41)
[2018-10-14] MEDS: AMLODIPINE 10 MG TABLET GT SCH (09:00)
[2018-10-14] MEDS: HYDROGEN PEROXIDE 3% 118 ML BOTTLE TP SCH ×2 (09:00→20:41)
[2018-10-14] MEDS: Z GUARD REMEDY PASTE 57 GM TUBE TOP SCH ×2 (09:00→20:41)
[2018-10-14] MEDS: LISINOPRIL 10 MG TABLET GT SCH (09:00)
[2018-10-14] MEDS: LEVETIRACETAM 500 MG/5 ML LIQUID UDC GT SCH ×2 (09:59→20:40)
[2018-10-14] MEDS: METOPROLOL TARTRATE 25 MG TABLET GT SCH ×2 (10:00→20:41)
[2018-10-14 11:08] VITALS: BP 135/84
[2018-10-14] MEDS: MULTIVIT, IRON, MIN NO. 8, FA TABLET GT SCH (20:41)
[2018-10-14 22:46] VITALS: BP 142/90
[2018-10-15 08:00] VITALS: BP 140/62
[2018-10-15] MEDS: LEVETIRACETAM 500 MG/5 ML LIQUID UDC GT SCH ×2 (08:26→20:10)
[2018-10-15] MEDS: AMLODIPINE 10 MG TABLET GT SCH (08:27)
[2018-10-15] MEDS: VIMPAT 200 MG GT SCH ×2 (08:27→20:11)
[2018-10-15] MEDS: METOPROLOL TARTRATE 25 MG TABLET GT SCH ×2 (08:27→20:11)
[2018-10-15] MEDS: PHENOBARBITAL 30 MG/7.5 ML LIQUID UDC GT SCH ×2 (08:27→20:11)
[2018-10-15] MEDS: DIAZEPAM 5 MG TABLET GT SCH ×2 (08:28→20:11)
[2018-10-15] MEDS: Z GUARD REMEDY PASTE 57 GM TUBE TOP SCH ×2 (08:28→20:11)
[2018-10-15] MEDS: LISINOPRIL 10 MG TABLET GT SCH (08:28)
[2018-10-15] MEDS: ASCORBIC ACID 500 MG TABLET GT SCH ×2 (08:28→20:11)
[2018-10-15] MEDS: HYDROGEN PEROXIDE 3% 118 ML BOTTLE TP SCH ×2 (08:29→20:11)
[2018-10-15] MEDS: VITAMINS A AND D OINT TP SCH ×2 (08:29→20:12)
[2018-10-15] MEDS: VITAL AF 1.2 1,000 ML LIQUID GT PRN (11:15)
[2018-10-15 20:00] VITALS: BP 130/85
[2018-10-15] MEDS: MULTIVIT, IRON, MIN NO. 8, FA TABLET GT SCH (20:11)
[2018-10-16] MEDS: VITAL AF 1.2 1,000 ML LIQUID GT PRN ×2 (02:06→05:06)
[2018-10-16 08:00] VITALS: BP 110/73
[2018-10-16] MEDS: PHENOBARBITAL 30 MG/7.5 ML LIQUID UDC GT SCH ×2 (09:00→21:29)
[2018-10-16] MEDS: LEVETIRACETAM 500 MG/5 ML LIQUID UDC GT SCH ×2 (09:00→21:23)
[2018-10-16] MEDS: DIAZEPAM 5 MG TABLET GT SCH ×2 (09:00→21:29)
[2018-10-16] MEDS: METOPROLOL TARTRATE 25 MG TABLET GT SCH ×2 (09:00→21:23)
[2018-10-16] MEDS: AMLODIPINE 10 MG TABLET GT SCH (09:00)
[2018-10-16] MEDS: HYDROGEN PEROXIDE 3% 118 ML BOTTLE TP SCH ×2 (09:00→21:30)
[2018-10-16] MEDS: Z GUARD REMEDY PASTE 57 GM TUBE TOP SCH ×2 (09:00→21:29)
[2018-10-16] MEDS: LISINOPRIL 10 MG TABLET GT SCH (09:00)
[2018-10-16] MEDS: VITAMINS A AND D OINT TP SCH ×2 (09:00→21:30)
[2018-10-16] MEDS: VIMPAT 200 MG GT SCH ×2 (09:00→21:29)
[2018-10-16] MEDS: ASCORBIC ACID 500 MG TABLET GT SCH ×2 (09:00→21:29)
[2018-10-16 20:00] VITALS: BP 132/87
[2018-10-16] MEDS: MULTIVIT, IRON, MIN NO. 8, FA TABLET GT SCH (21:29)
[2018-10-17 08:00] VITALS: BP 131/87
[2018-10-17] MEDS: LEVETIRACETAM 500 MG/5 ML LIQUID UDC GT SCH ×2 (08:02→21:00)
[2018-10-17] MEDS: VIMPAT 200 MG GT SCH ×2 (08:03→21:00)
[2018-10-17] MEDS: METOPROLOL TARTRATE 25 MG TABLET GT SCH ×2 (08:03→21:00)
[2018-10-17] MEDS: LISINOPRIL 10 MG TABLET GT SCH (08:04)
[2018-10-17] MEDS: AMLODIPINE 10 MG TABLET GT SCH (08:04)
[2018-10-17] MEDS: PHENOBARBITAL 30 MG/7.5 ML LIQUID UDC GT SCH ×2 (08:04→21:00)
[2018-10-17] MEDS: DIAZEPAM 5 MG TABLET GT SCH ×2 (08:04→21:00)
[2018-10-17] MEDS: HYDROGEN PEROXIDE 3% 118 ML BOTTLE TP SCH ×2 (08:04→21:00)
[2018-10-17] MEDS: ASCORBIC ACID 500 MG TABLET GT SCH ×2 (08:04→21:00)
[2018-10-17] MEDS: Z GUARD REMEDY PASTE 57 GM TUBE TOP SCH ×2 (08:04→21:00)
[2018-10-17] MEDS: VITAMINS A AND D OINT TP SCH ×2 (08:05→21:00)
[2018-10-17] MEDS ORDERED: PNEUMOCOCCAL 23-VAL P-SAC VAC 0.5 ML VIAL IM ONE (17:22)
[2018-10-17 20:00] VITALS: BP 139/94
[2018-10-17] MEDS: MULTIVIT, IRON, MIN NO. 8, FA TABLET GT SCH (21:00)
[2018-10-18] MEDS: VITAL AF 1.2 1,000 ML LIQUID GT PRN ×2 (04:36→22:47)
[2018-10-18 08:06] VITALS: BP 125/80
[2018-10-18] MEDS: METOPROLOL TARTRATE 25 MG TABLET GT SCH ×2 (08:25→20:16)
[2018-10-18] MEDS: VIMPAT 200 MG GT SCH ×2 (08:25→20:16)
[2018-10-18] MEDS: AMLODIPINE 10 MG TABLET GT SCH (08:25)
[2018-10-18] MEDS: LEVETIRACETAM 500 MG/5 ML LIQUID UDC GT SCH ×2 (08:25→20:16)
[2018-10-18] MEDS: PHENOBARBITAL 30 MG/7.5 ML LIQUID UDC GT SCH ×2 (08:25→20:16)
[2018-10-18] MEDS: HYDROGEN PEROXIDE 3% 118 ML BOTTLE TP SCH ×2 (08:26→20:16)
[2018-10-18] MEDS: DIAZEPAM 5 MG TABLET GT SCH ×2 (08:26→20:16)
[2018-10-18] MEDS: LISINOPRIL 10 MG TABLET GT SCH (08:26)
[2018-10-18] MEDS: Z GUARD REMEDY PASTE 57 GM TUBE TOP SCH ×2 (08:26→20:16)
[2018-10-18] MEDS: ASCORBIC ACID 500 MG TABLET GT SCH ×2 (08:26→20:16)
[2018-10-18] MEDS: VITAMINS A AND D OINT TP SCH ×2 (08:26→20:17)
[2018-10-18 20:00] VITALS: BP 114/75
[2018-10-18] MEDS: MULTIVIT, IRON, MIN NO. 8, FA TABLET GT SCH (20:16)
[2018-10-19] MEDS: LEVETIRACETAM 500 MG/5 ML LIQUID UDC GT SCH ×2 (09:44→20:48)
[2018-10-19] MEDS: METOPROLOL TARTRATE 25 MG TABLET GT SCH ×2 (09:45→20:49)
[2018-10-19] MEDS: ASCORBIC ACID 500 MG TABLET GT SCH ×2 (09:45→20:49)
[2018-10-19] MEDS: DIAZEPAM 5 MG TABLET GT SCH ×2 (09:45→20:49)
[2018-10-19] MEDS: HYDROGEN PEROXIDE 3% 118 ML BOTTLE TP SCH ×2 (09:45→20:49)
[2018-10-19] MEDS: Z GUARD REMEDY PASTE 57 GM TUBE TOP SCH ×2 (09:45→20:49)
[2018-10-19] MEDS: VITAMINS A AND D OINT TP SCH ×2 (09:45→20:49)
[2018-10-19] MEDS: VIMPAT 200 MG GT SCH ×2 (09:45→20:49)
[2018-10-19] MEDS: PHENOBARBITAL 30 MG/7.5 ML LIQUID UDC GT SCH ×2 (09:45→20:49)
[2018-10-19] MEDS: AMLODIPINE 10 MG TABLET GT SCH (09:45)
[2018-10-19] MEDS: LISINOPRIL 10 MG TABLET GT SCH (09:45)
[2018-10-19 11:38] VITALS: BP 109/69
[2018-10-19] MEDS: VITAL AF 1.2 1,000 ML LIQUID GT PRN (16:37)
[2018-10-19 20:45] VITALS: BP 128/72
[2018-10-19] MEDS: MULTIVIT, IRON, MIN NO. 8, FA TABLET GT SCH (20:49)
[2018-10-20 09:00] VITALS: BP 125/79
[2018-10-20] MEDS: LEVETIRACETAM 500 MG/5 ML LIQUID UDC GT SCH ×2 (09:05→20:47)
[2018-10-20] MEDS: METOPROLOL TARTRATE 25 MG TABLET GT SCH ×2 (09:06→20:47)
[2018-10-20] MEDS: VIMPAT 200 MG GT SCH ×2 (09:06→20:47)
[2018-10-20] MEDS: AMLODIPINE 10 MG TABLET GT SCH (09:07)
[2018-10-20] MEDS: DIAZEPAM 5 MG TABLET GT SCH ×2 (09:07→20:48)
[2018-10-20] MEDS: PHENOBARBITAL 30 MG/7.5 ML LIQUID UDC GT SCH ×2 (09:07→20:47)
[2018-10-20] MEDS: LISINOPRIL 10 MG TABLET GT SCH (09:07)
[2018-10-20] MEDS: ASCORBIC ACID 500 MG TABLET GT SCH ×2 (09:07→20:48)
[2018-10-20] MEDS: HYDROGEN PEROXIDE 3% 118 ML BOTTLE TP SCH ×2 (09:08→20:48)
[2018-10-20] MEDS: Z GUARD REMEDY PASTE 57 GM TUBE TOP SCH ×2 (09:08→20:48)
[2018-10-20] MEDS: VITAMINS A AND D OINT TP SCH ×2 (09:08→20:48)
[2018-10-20] MEDS: VITAL AF 1.2 1,000 ML LIQUID GT PRN (12:17)
[2018-10-20] MEDS: MULTIVIT, IRON, MIN NO. 8, FA TABLET GT SCH (20:47)
[2018-10-20 20:53] VITALS: BP 124/78
[2018-10-21] MEDS: VITAL AF 1.2 1,000 ML LIQUID GT PRN ×2 (06:45→21:23)
[2018-10-21] MEDS: LEVETIRACETAM 500 MG/5 ML LIQUID UDC GT SCH ×2 (08:31→21:06)
[2018-10-21] MEDS: METOPROLOL TARTRATE 25 MG TABLET GT SCH ×2 (08:32→21:06)
[2018-10-21] MEDS: AMLODIPINE 10 MG TABLET GT SCH (08:33)
[2018-10-21] MEDS: LISINOPRIL 10 MG TABLET GT SCH (08:33)
[2018-10-21] MEDS: VIMPAT 200 MG GT SCH ×2 (08:33→21:06)
[2018-10-21] MEDS: PHENOBARBITAL 30 MG/7.5 ML LIQUID UDC GT SCH ×2 (08:33→21:06)
[2018-10-21] MEDS: DIAZEPAM 5 MG TABLET GT SCH ×2 (08:35→21:07)
[2018-10-21] MEDS: HYDROGEN PEROXIDE 3% 118 ML BOTTLE TP SCH ×2 (08:35→21:08)
[2018-10-21] MEDS: ASCORBIC ACID 500 MG TABLET GT SCH ×2 (08:35→21:07)
[2018-10-21] MEDS: VITAMINS A AND D OINT TP SCH ×2 (08:35→21:08)
[2018-10-21] MEDS: Z GUARD REMEDY PASTE 57 GM TUBE TOP SCH ×2 (08:35→21:08)
[2018-10-21 11:43] VITALS: BP 128/82
[2018-10-21 20:37] VITALS: BP 121/80
[2018-10-21] MEDS: MULTIVIT, IRON, MIN NO. 8, FA TABLET GT SCH (21:07)
[2018-10-22 08:00] VITALS: BP 118/83
[2018-10-22] MEDS: METOPROLOL TARTRATE 25 MG TABLET GT SCH ×2 (08:44→20:39)
[2018-10-22] MEDS: LEVETIRACETAM 500 MG/5 ML LIQUID UDC GT SCH ×2 (08:44→20:39)
[2018-10-22] MEDS: AMLODIPINE 10 MG TABLET GT SCH (08:45)
[2018-10-22] MEDS: VIMPAT 200 MG GT SCH ×2 (08:45→20:40)
[2018-10-22] MEDS: DIAZEPAM 5 MG TABLET GT SCH ×2 (08:45→20:40)
[2018-10-22] MEDS: PHENOBARBITAL 30 MG/7.5 ML LIQUID UDC GT SCH ×2 (08:45→20:40)
[2018-10-22] MEDS: ASCORBIC ACID 500 MG TABLET GT SCH ×2 (08:45→20:42)
[2018-10-22] MEDS: LISINOPRIL 10 MG TABLET GT SCH (08:46)
[2018-10-22] MEDS: Z GUARD REMEDY PASTE 57 GM TUBE TOP SCH ×2 (08:46→20:42)
[2018-10-22] MEDS: VITAMINS A AND D OINT TP SCH ×2 (08:46→20:42)
[2018-10-22] MEDS: HYDROGEN PEROXIDE 3% 118 ML BOTTLE TP SCH ×2 (08:46→20:42)
[2018-10-22] MEDS: VITAL AF 1.2 1,000 ML LIQUID GT PRN (13:57)
[2018-10-22 20:00] VITALS: BP 146/90
[2018-10-22] MEDS: MULTIVIT, IRON, MIN NO. 8, FA TABLET GT SCH (20:40)
[2018-10-23] MEDS: VITAL AF 1.2 1,000 ML LIQUID GT PRN (04:10)
[2018-10-23 08:00] VITALS: BP 135/82
[2018-10-23] MEDS: VIMPAT 200 MG GT SCH ×2 (08:33→20:59)
[2018-10-23] MEDS: LEVETIRACETAM 500 MG/5 ML LIQUID UDC GT SCH ×2 (08:33→20:58)
[2018-10-23] MEDS: PHENOBARBITAL 30 MG/7.5 ML LIQUID UDC GT SCH ×2 (08:41→21:00)
[2018-10-23] MEDS: METOPROLOL TARTRATE 25 MG TABLET GT SCH ×2 (08:42→20:59)
[2018-10-23] MEDS: VITAMINS A AND D OINT TP SCH ×2 (08:43→21:01)
[2018-10-23] MEDS: AMLODIPINE 10 MG TABLET GT SCH (08:43)
[2018-10-23] MEDS: LISINOPRIL 10 MG TABLET GT SCH (08:43)
[2018-10-23] MEDS: DIAZEPAM 5 MG TABLET GT SCH ×2 (08:43→21:00)
[2018-10-23] MEDS: HYDROGEN PEROXIDE 3% 118 ML BOTTLE TP SCH ×2 (08:43→21:01)
[2018-10-23] MEDS: ASCORBIC ACID 500 MG TABLET GT SCH ×2 (08:43→21:01)
[2018-10-23] MEDS: Z GUARD REMEDY PASTE 57 GM TUBE TOP SCH ×2 (08:43→21:01)
[2018-10-23 20:17] VITALS: BP 141/89
[2018-10-23] MEDS: MULTIVIT, IRON, MIN NO. 8, FA TABLET GT SCH (21:00)
[2018-10-24] MEDS: VITAL AF 1.2 1,000 ML LIQUID GT PRN ×2 (00:47→13:45)
[2018-10-24] MEDS: LEVETIRACETAM 500 MG/5 ML LIQUID UDC GT SCH ×2 (08:49→21:55)
[2018-10-24] MEDS: VIMPAT 200 MG GT SCH ×2 (08:49→21:59)
[2018-10-24] MEDS: METOPROLOL TARTRATE 25 MG TABLET GT SCH ×2 (08:49→21:00)
[2018-10-24] MEDS: Z GUARD REMEDY PASTE 57 GM TUBE TOP SCH ×2 (08:50→21:00)
[2018-10-24] MEDS: PHENOBARBITAL 30 MG/7.5 ML LIQUID UDC GT SCH ×2 (08:50→21:00)
[2018-10-24] MEDS: DIAZEPAM 5 MG TABLET GT SCH ×2 (08:50→21:00)
[2018-10-24] MEDS: AMLODIPINE 10 MG TABLET GT SCH (08:50)
[2018-10-24] MEDS: LISINOPRIL 10 MG TABLET GT SCH (08:50)
[2018-10-24] MEDS: ASCORBIC ACID 500 MG TABLET GT SCH ×2 (08:50→21:00)
[2018-10-24] MEDS: HYDROGEN PEROXIDE 3% 118 ML BOTTLE TP SCH ×2 (08:51→21:00)
[2018-10-24] MEDS: VITAMINS A AND D OINT TP SCH ×2 (08:51→21:00)
[2018-10-24 09:30] VITALS: BP 120/80
[2018-10-24 20:17] VITALS: BP 135/84
[2018-10-24] MEDS: MULTIVIT, IRON, MIN NO. 8, FA TABLET GT SCH (21:00)
[2018-10-25] MEDS: LEVETIRACETAM 500 MG/5 ML LIQUID UDC GT SCH ×2 (09:14→21:01)
[2018-10-25] MEDS: VIMPAT 200 MG GT SCH ×2 (09:15→21:02)
[2018-10-25] MEDS: AMLODIPINE 10 MG TABLET GT SCH (09:15)
[2018-10-25] MEDS: ASCORBIC ACID 500 MG TABLET GT SCH ×2 (09:15→21:02)
[2018-10-25] MEDS: LISINOPRIL 10 MG TABLET GT SCH (09:15)
[2018-10-25] MEDS: Z GUARD REMEDY PASTE 57 GM TUBE TOP SCH ×2 (09:15→21:02)
[2018-10-25] MEDS: HYDROGEN PEROXIDE 3% 118 ML BOTTLE TP SCH ×2 (09:15→21:02)
[2018-10-25] MEDS: METOPROLOL TARTRATE 25 MG TABLET GT SCH ×2 (09:15→21:02)
[2018-10-25] MEDS: PHENOBARBITAL 30 MG/7.5 ML LIQUID UDC GT SCH ×2 (09:15→21:02)
[2018-10-25] MEDS: DIAZEPAM 5 MG TABLET GT SCH ×2 (09:15→21:02)
[2018-10-25] MEDS: VITAMINS A AND D OINT TP SCH ×2 (09:15→21:02)
[2018-10-25] MEDS: VITAL AF 1.2 1,000 ML LIQUID GT PRN (18:03)
[2018-10-25 20:11] VITALS: BP 122/80
[2018-10-25] MEDS: MULTIVIT, IRON, MIN NO. 8, FA TABLET GT SCH (21:02)
[2018-10-26 08:04] VITALS: BP 142/77
[2018-10-26] MEDS: LEVETIRACETAM 500 MG/5 ML LIQUID UDC GT SCH ×2 (08:46→21:53)
[2018-10-26] MEDS: AMLODIPINE 10 MG TABLET GT SCH (08:47)
[2018-10-26] MEDS: VIMPAT 200 MG GT SCH ×2 (08:47→21:54)
[2018-10-26] MEDS: PHENOBARBITAL 30 MG/7.5 ML LIQUID UDC GT SCH ×2 (08:47→21:54)
[2018-10-26] MEDS: METOPROLOL TARTRATE 25 MG TABLET GT SCH ×2 (08:47→21:00)
[2018-10-26] MEDS: VITAMINS A AND D OINT TP SCH ×2 (08:48→21:54)
[2018-10-26] MEDS: ASCORBIC ACID 500 MG TABLET GT SCH ×2 (08:48→21:54)
[2018-10-26] MEDS: DIAZEPAM 5 MG TABLET GT SCH ×2 (08:48→21:54)
[2018-10-26] MEDS: HYDROGEN PEROXIDE 3% 118 ML BOTTLE TP SCH ×2 (08:48→21:54)
[2018-10-26] MEDS: LISINOPRIL 10 MG TABLET GT SCH (08:48)
[2018-10-26] MEDS: Z GUARD REMEDY PASTE 57 GM TUBE TOP SCH ×2 (08:48→21:54)
[2018-10-26] MEDS: MULTIVIT, IRON, MIN NO. 8, FA TABLET GT SCH (21:54)
[2018-10-26 22:18] VITALS: BP 116/84
[2018-10-27] MEDS: VITAL AF 1.2 1,000 ML LIQUID GT PRN (01:56)
[2018-10-27 08:05] VITALS: BP 119/86
[2018-10-27] MEDS: LEVETIRACETAM 500 MG/5 ML LIQUID UDC GT SCH ×2 (08:10→20:43)
[2018-10-27] MEDS: METOPROLOL TARTRATE 25 MG TABLET GT SCH ×2 (08:11→20:49)
[2018-10-27] MEDS: HYDROGEN PEROXIDE 3% 118 ML BOTTLE TP SCH ×2 (08:12→20:44)
[2018-10-27] MEDS: VIMPAT 200 MG GT SCH ×2 (08:12→20:44)
[2018-10-27] MEDS: ASCORBIC ACID 500 MG TABLET GT SCH ×2 (08:12→20:44)
[2018-10-27] MEDS: LISINOPRIL 10 MG TABLET GT SCH (08:12)
[2018-10-27] MEDS: DIAZEPAM 5 MG TABLET GT SCH ×2 (08:12→20:44)
[2018-10-27] MEDS: AMLODIPINE 10 MG TABLET GT SCH (08:12)
[2018-10-27] MEDS: VITAMINS A AND D OINT TP SCH ×2 (08:12→20:44)
[2018-10-27] MEDS: Z GUARD REMEDY PASTE 57 GM TUBE TOP SCH ×2 (08:12→20:44)
[2018-10-27] MEDS: PHENOBARBITAL 30 MG/7.5 ML LIQUID UDC GT SCH ×2 (08:12→20:44)
[2018-10-27] MEDS: MULTIVIT, IRON, MIN NO. 8, FA TABLET GT SCH (20:44)
[2018-10-27 20:50] VITALS: BP 120/60
[2018-10-28 08:07] VITALS: BP 117/78
[2018-10-28] MEDS: METOPROLOL TARTRATE 25 MG TABLET GT SCH ×2 (08:39→21:18)
[2018-10-28] MEDS: LEVETIRACETAM 500 MG/5 ML LIQUID UDC GT SCH ×2 (08:39→21:17)
[2018-10-28] MEDS: PHENOBARBITAL 30 MG/7.5 ML LIQUID UDC GT SCH ×2 (08:40→21:18)
[2018-10-28] MEDS: VIMPAT 200 MG GT SCH ×2 (08:40→21:18)
[2018-10-28] MEDS: LISINOPRIL 10 MG TABLET GT SCH (08:40)
[2018-10-28] MEDS: AMLODIPINE 10 MG TABLET GT SCH (08:40)
[2018-10-28] MEDS: VITAMINS A AND D OINT TP SCH ×2 (08:41→21:19)
[2018-10-28] MEDS: HYDROGEN PEROXIDE 3% 118 ML BOTTLE TP SCH ×2 (08:41→21:19)
[2018-10-28] MEDS: Z GUARD REMEDY PASTE 57 GM TUBE TOP SCH ×2 (08:41→21:19)
[2018-10-28] MEDS: ASCORBIC ACID 500 MG TABLET GT SCH ×2 (08:41→21:19)
[2018-10-28] MEDS: DIAZEPAM 5 MG TABLET GT SCH ×2 (08:41→21:19)
[2018-10-28] MEDS: VITAL AF 1.2 1,000 ML LIQUID GT PRN (12:07)
[2018-10-28 20:35] VITALS: BP 134/90
[2018-10-28] MEDS: MULTIVIT, IRON, MIN NO. 8, FA TABLET GT SCH (21:19)
[2018-10-29] MEDS: VITAL AF 1.2 1,000 ML LIQUID GT PRN ×2 (01:00→18:58)
[2018-10-29 08:06] VITALS: BP 104/71
[2018-10-29] MEDS: LEVETIRACETAM 500 MG/5 ML LIQUID UDC GT SCH ×2 (08:14→21:00)
[2018-10-29] MEDS: METOPROLOL TARTRATE 25 MG TABLET GT SCH ×2 (08:15→21:00)
[2018-10-29] MEDS: VIMPAT 200 MG GT SCH ×2 (08:15→21:00)
[2018-10-29] MEDS: AMLODIPINE 10 MG TABLET GT SCH (08:15)
[2018-10-29] MEDS: Z GUARD REMEDY PASTE 57 GM TUBE TOP SCH ×2 (08:16→21:00)
[2018-10-29] MEDS: PHENOBARBITAL 30 MG/7.5 ML LIQUID UDC GT SCH ×2 (08:16→21:00)
[2018-10-29] MEDS: ASCORBIC ACID 500 MG TABLET GT SCH ×2 (08:16→21:00)
[2018-10-29] MEDS: LISINOPRIL 10 MG TABLET GT SCH (08:16)
[2018-10-29] MEDS: HYDROGEN PEROXIDE 3% 118 ML BOTTLE TP SCH ×2 (08:16→21:00)
[2018-10-29] MEDS: DIAZEPAM 5 MG TABLET GT SCH ×2 (08:16→21:00)
[2018-10-29] MEDS: VITAMINS A AND D OINT TP SCH ×2 (08:16→21:00)
[2018-10-29 20:20] VITALS: BP 165/93
[2018-10-29] MEDS: MULTIVIT, IRON, MIN NO. 8, FA TABLET GT SCH (21:00)
[2018-10-30] MEDS: METOPROLOL TARTRATE 25 MG TABLET GT SCH ×2 (08:50→21:27)
[2018-10-30] MEDS: LEVETIRACETAM 500 MG/5 ML LIQUID UDC GT SCH ×2 (08:50→21:25)
[2018-10-30] MEDS: VIMPAT 200 MG GT SCH ×2 (08:50→21:27)
[2018-10-30] MEDS: PHENOBARBITAL 30 MG/7.5 ML LIQUID UDC GT SCH ×2 (08:51→21:27)
[2018-10-30] MEDS: LISINOPRIL 10 MG TABLET GT SCH (08:51)
[2018-10-30] MEDS: DIAZEPAM 5 MG TABLET GT SCH ×2 (08:51→21:28)
[2018-10-30] MEDS: ASCORBIC ACID 500 MG TABLET GT SCH ×2 (08:51→21:28)
[2018-10-30] MEDS: Z GUARD REMEDY PASTE 57 GM TUBE TOP SCH ×2 (08:51→21:28)
[2018-10-30] MEDS: AMLODIPINE 10 MG TABLET GT SCH (08:51)
[2018-10-30] MEDS: VITAMINS A AND D OINT TP SCH ×2 (08:52→21:29)
[2018-10-30] MEDS: HYDROGEN PEROXIDE 3% 118 ML BOTTLE TP SCH ×2 (08:52→21:29)
[2018-10-30 14:51] VITALS: BP 110/76
[2018-10-30 20:45] VITALS: BP 160/91
[2018-10-30] MEDS: MULTIVIT, IRON, MIN NO. 8, FA TABLET GT SCH (21:27)
[2018-10-31] MEDS: VITAL AF 1.2 1,000 ML LIQUID GT PRN (03:36)
[2018-10-31] MEDS: PHENOBARBITAL 30 MG/7.5 ML LIQUID UDC GT SCH ×2 (08:13→21:00)
[2018-10-31] MEDS: AMLODIPINE 10 MG TABLET GT SCH (08:13)
[2018-10-31] MEDS: VIMPAT 200 MG GT SCH ×2 (08:13→21:00)
[2018-10-31] MEDS: METOPROLOL TARTRATE 25 MG TABLET GT SCH ×2 (08:13→21:00)
[2018-10-31] MEDS: LISINOPRIL 10 MG TABLET GT SCH (08:13)
[2018-10-31] MEDS: LEVETIRACETAM 500 MG/5 ML LIQUID UDC GT SCH ×2 (08:13→21:00)
[2018-10-31] MEDS: VITAMINS A AND D OINT TP SCH ×2 (08:14→21:01)
[2018-10-31] MEDS: DIAZEPAM 5 MG TABLET GT SCH ×2 (08:14→21:00)
[2018-10-31] MEDS: ASCORBIC ACID 500 MG TABLET GT SCH ×2 (08:14→21:01)
[2018-10-31] MEDS: Z GUARD REMEDY PASTE 57 GM TUBE TOP SCH ×2 (08:14→21:01)
[2018-10-31] MEDS: HYDROGEN PEROXIDE 3% 118 ML BOTTLE TP SCH ×2 (08:14→21:01)
[2018-10-31 10:52] VITALS: BP 125/80
[2018-10-31 20:00] VITALS: BP 118/79
[2018-10-31] MEDS: MULTIVIT, IRON, MIN NO. 8, FA TABLET GT SCH (21:00)
[2018-11-01] MEDS: VITAL AF 1.2 1,000 ML LIQUID GT PRN (00:56)
[2018-11-01] MEDS: LEVETIRACETAM 500 MG/5 ML LIQUID UDC GT SCH ×2 (09:29→20:38)
[2018-11-01] MEDS: HYDROGEN PEROXIDE 3% 118 ML BOTTLE TP SCH ×2 (09:30→20:38)
[2018-11-01] MEDS: METOPROLOL TARTRATE 25 MG TABLET GT SCH ×2 (09:30→20:46)
[2018-11-01] MEDS: LISINOPRIL 10 MG TABLET GT SCH (09:30)
[2018-11-01] MEDS: PHENOBARBITAL 30 MG/7.5 ML LIQUID UDC GT SCH ×2 (09:30→20:38)
[2018-11-01] MEDS: VIMPAT 200 MG GT SCH ×2 (09:30→20:38)
[2018-11-01] MEDS: DIAZEPAM 5 MG TABLET GT SCH ×2 (09:30→20:38)
[2018-11-01] MEDS: Z GUARD REMEDY PASTE 57 GM TUBE TOP SCH ×2 (09:30→20:38)
[2018-11-01] MEDS: VITAMINS A AND D OINT TP SCH ×2 (09:30→20:38)
[2018-11-01] MEDS: AMLODIPINE 10 MG TABLET GT SCH (09:30)
[2018-11-01] MEDS: ASCORBIC ACID 500 MG TABLET GT SCH ×2 (09:30→20:38)
[2018-11-01 12:17] VITALS: BP 141/69
[2018-11-01 20:19] VITALS: BP 130/89
[2018-11-01] MEDS: MULTIVIT, IRON, MIN NO. 8, FA TABLET GT SCH (20:38)
[2018-11-02] MEDS: VITAL AF 1.2 1,000 ML LIQUID GT PRN (05:49)
[2018-11-02 08:00] VITALS: BP 103/68
[2018-11-02] MEDS: ASCORBIC ACID 500 MG TABLET GT SCH ×2 (08:19→21:17)
[2018-11-02] MEDS: DIAZEPAM 5 MG TABLET GT SCH ×2 (08:19→21:17)
[2018-11-02] MEDS: LISINOPRIL 10 MG TABLET GT SCH (08:19)
[2018-11-02] MEDS: LEVETIRACETAM 500 MG/5 ML LIQUID UDC GT SCH ×2 (08:19→21:16)
[2018-11-02] MEDS: VITAMINS A AND D OINT TP SCH ×2 (08:19→21:17)
[2018-11-02] MEDS: VIMPAT 200 MG GT SCH ×2 (08:19→21:17)
[2018-11-02] MEDS: METOPROLOL TARTRATE 25 MG TABLET GT SCH ×2 (08:19→21:00)
[2018-11-02] MEDS: AMLODIPINE 10 MG TABLET GT SCH (08:19)
[2018-11-02] MEDS: HYDROGEN PEROXIDE 3% 118 ML BOTTLE TP SCH ×2 (08:19→21:17)
[2018-11-02] MEDS: Z GUARD REMEDY PASTE 57 GM TUBE TOP SCH ×2 (08:19→21:17)
[2018-11-02] MEDS: PHENOBARBITAL 30 MG/7.5 ML LIQUID UDC GT SCH ×2 (08:19→21:17)
[2018-11-02 20:59] VITALS: BP 119/74
[2018-11-02] MEDS: MULTIVIT, IRON, MIN NO. 8, FA TABLET GT SCH (21:17)
[2018-11-03] MEDS: LEVETIRACETAM 500 MG/5 ML LIQUID UDC GT SCH ×2 (09:42→21:14)
[2018-11-03] MEDS: VIMPAT 200 MG GT SCH ×2 (09:43→21:14)
[2018-11-03] MEDS: LISINOPRIL 10 MG TABLET GT SCH (09:43)
[2018-11-03] MEDS: AMLODIPINE 10 MG TABLET GT SCH (09:43)
[2018-11-03] MEDS: DIAZEPAM 5 MG TABLET GT SCH ×2 (09:43→21:15)
[2018-11-03] MEDS: METOPROLOL TARTRATE 25 MG TABLET GT SCH ×2 (09:43→21:14)
[2018-11-03] MEDS: ASCORBIC ACID 500 MG TABLET GT SCH ×2 (09:43→21:15)
[2018-11-03] MEDS: PHENOBARBITAL 30 MG/7.5 ML LIQUID UDC GT SCH ×2 (09:43→21:14)
[2018-11-03] MEDS: Z GUARD REMEDY PASTE 57 GM TUBE TOP SCH ×2 (09:44→21:15)
[2018-11-03] MEDS: VITAMINS A AND D OINT TP SCH ×2 (09:44→21:15)
[2018-11-03] MEDS: HYDROGEN PEROXIDE 3% 118 ML BOTTLE TP SCH ×2 (09:44→21:15)
[2018-11-03] MEDS: VITAL AF 1.2 1,000 ML LIQUID GT PRN (12:39)
[2018-11-03] MEDS: MULTIVIT, IRON, MIN NO. 8, FA TABLET GT SCH (21:14)
[2018-11-03 21:31] VITALS: BP 136/77
[2018-11-04] MEDS: VITAL AF 1.2 1,000 ML LIQUID GT PRN ×2 (03:33→03:34)
[2018-11-04 08:00] VITALS: BP 94/55
[2018-11-04] MEDS: VIMPAT 200 MG GT SCH ×2 (08:18→20:37)
[2018-11-04] MEDS: LEVETIRACETAM 500 MG/5 ML LIQUID UDC GT SCH ×2 (08:18→20:52)
[2018-11-04] MEDS: METOPROLOL TARTRATE 25 MG TABLET GT SCH ×2 (08:18→20:35)
[2018-11-04] MEDS: HYDROGEN PEROXIDE 3% 118 ML BOTTLE TP SCH ×2 (08:19→20:37)
[2018-11-04] MEDS: ASCORBIC ACID 500 MG TABLET GT SCH ×2 (08:19→20:36)
[2018-11-04] MEDS: PHENOBARBITAL 30 MG/7.5 ML LIQUID UDC GT SCH ×2 (08:19→20:37)
[2018-11-04] MEDS: DIAZEPAM 5 MG TABLET GT SCH ×2 (08:19→20:37)
[2018-11-04] MEDS: AMLODIPINE 10 MG TABLET GT SCH (08:19)
[2018-11-04] MEDS: VITAMINS A AND D OINT TP SCH ×2 (08:19→20:37)
[2018-11-04] MEDS: LISINOPRIL 10 MG TABLET GT SCH (08:19)
[2018-11-04] MEDS: Z GUARD REMEDY PASTE 57 GM TUBE TOP SCH ×2 (08:19→20:37)
[2018-11-04] MEDS: MULTIVIT, IRON, MIN NO. 8, FA TABLET GT SCH (20:36)
[2018-11-04 21:07] VITALS: BP 129/84
[2018-11-05] MEDS: VITAL AF 1.2 1,000 ML LIQUID GT PRN ×2 (02:20→17:38)
[2018-11-05 08:08] VITALS: BP 119/63
[2018-11-05] MEDS: LEVETIRACETAM 500 MG/5 ML LIQUID UDC GT SCH ×2 (08:13→20:21)
[2018-11-05] MEDS: VIMPAT 200 MG GT SCH ×2 (08:13→20:23)
[2018-11-05] MEDS: AMLODIPINE 10 MG TABLET GT SCH (08:14)
[2018-11-05] MEDS: PHENOBARBITAL 30 MG/7.5 ML LIQUID UDC GT SCH ×2 (08:14→20:23)
[2018-11-05] MEDS: METOPROLOL TARTRATE 25 MG TABLET GT SCH ×2 (08:14→20:23)
[2018-11-05] MEDS: DIAZEPAM 5 MG TABLET GT SCH ×2 (08:16→20:23)
[2018-11-05] MEDS: LISINOPRIL 10 MG TABLET GT SCH (08:16)
[2018-11-05] MEDS: Z GUARD REMEDY PASTE 57 GM TUBE TOP SCH ×2 (08:17→20:23)
[2018-11-05] MEDS: HYDROGEN PEROXIDE 3% 118 ML BOTTLE TP SCH ×2 (08:17→20:24)
[2018-11-05] MEDS: ASCORBIC ACID 500 MG TABLET GT SCH ×2 (08:17→20:23)
[2018-11-05] MEDS: VITAMINS A AND D OINT TP SCH ×2 (08:19→20:24)
[2018-11-05 20:03] VITALS: BP 135/88
[2018-11-05] MEDS: MULTIVIT, IRON, MIN NO. 8, FA TABLET GT SCH (20:23)
[2018-11-05] MEDS: ACETAMINOPHEN 650 MG/20 ML UDC- SA PATIENTS-PAIN ONLY GT PRN (20:28)
[2018-11-06] MEDS: LEVETIRACETAM 500 MG/5 ML LIQUID UDC GT SCH ×2 (08:48→21:16)
[2018-11-06] MEDS: METOPROLOL TARTRATE 25 MG TABLET GT SCH ×2 (08:49→21:17)
[2018-11-06] MEDS: PHENOBARBITAL 30 MG/7.5 ML LIQUID UDC GT SCH ×2 (08:49→21:17)
[2018-11-06] MEDS: VIMPAT 200 MG GT SCH ×2 (08:49→21:17)
[2018-11-06] MEDS: ASCORBIC ACID 500 MG TABLET GT SCH ×2 (08:50→21:18)
[2018-11-06] MEDS: DIAZEPAM 5 MG TABLET GT SCH ×2 (08:50→21:18)
[2018-11-06] MEDS: Z GUARD REMEDY PASTE 57 GM TUBE TOP SCH ×2 (08:51→21:18)
[2018-11-06] MEDS: HYDROGEN PEROXIDE 3% 118 ML BOTTLE TP SCH ×2 (08:51→21:18)
[2018-11-06] MEDS: VITAMINS A AND D OINT TP SCH ×2 (08:51→21:18)
[2018-11-06] MEDS: AMLODIPINE 10 MG TABLET GT SCH (08:51)
[2018-11-06] MEDS: LISINOPRIL 10 MG TABLET GT SCH (08:52)
[2018-11-06 21:01] VITALS: BP 148/90
[2018-11-06] MEDS: MULTIVIT, IRON, MIN NO. 8, FA TABLET GT SCH (21:18)
[2018-11-07] MEDS: VITAL AF 1.2 1,000 ML LIQUID GT PRN ×2 (02:00→18:07)
[2018-11-07 07:59] VITALS: BP 115/60
[2018-11-07] MEDS: VIMPAT 200 MG GT SCH ×2 (08:05→20:59)
[2018-11-07] MEDS: LEVETIRACETAM 500 MG/5 ML LIQUID UDC GT SCH ×2 (08:05→20:58)
[2018-11-07] MEDS: METOPROLOL TARTRATE 25 MG TABLET GT SCH ×2 (08:06→20:59)
[2018-11-07] MEDS: LISINOPRIL 10 MG TABLET GT SCH (08:06)
[2018-11-07] MEDS: AMLODIPINE 10 MG TABLET GT SCH (08:06)
[2018-11-07] MEDS: PHENOBARBITAL 30 MG/7.5 ML LIQUID UDC GT SCH ×2 (08:06→21:05)
[2018-11-07] MEDS: HYDROGEN PEROXIDE 3% 118 ML BOTTLE TP SCH ×2 (08:07→20:59)
[2018-11-07] MEDS: VITAMINS A AND D OINT TP SCH ×2 (08:07→20:59)
[2018-11-07] MEDS: ASCORBIC ACID 500 MG TABLET GT SCH ×2 (08:07→20:59)
[2018-11-07] MEDS: DIAZEPAM 5 MG TABLET GT SCH ×2 (08:07→20:59)
[2018-11-07] MEDS: Z GUARD REMEDY PASTE 57 GM TUBE TOP SCH ×2 (08:07→20:59)
[2018-11-07] MEDS: MULTIVIT, IRON, MIN NO. 8, FA TABLET GT SCH (20:59)
[2018-11-07 21:31] VITALS: BP 139/91
[2018-11-08 08:04] VITALS: BP 125/80
[2018-11-08] MEDS: DIAZEPAM 5 MG TABLET GT SCH (08:37)
[2018-11-08] MEDS: LISINOPRIL 10 MG TABLET GT SCH (08:37)
[2018-11-08] MEDS: Z GUARD REMEDY PASTE 57 GM TUBE TOP SCH ×2 (08:37→21:10)
[2018-11-08] MEDS: VITAMINS A AND D OINT TP SCH ×2 (08:37→21:10)
[2018-11-08] MEDS: LEVETIRACETAM 500 MG/5 ML LIQUID UDC GT SCH ×2 (08:37→21:02)
[2018-11-08] MEDS: METOPROLOL TARTRATE 25 MG TABLET GT SCH ×2 (08:37→21:03)
[2018-11-08] MEDS: HYDROGEN PEROXIDE 3% 118 ML BOTTLE TP SCH ×2 (08:37→21:10)
[2018-11-08] MEDS: ASCORBIC ACID 500 MG TABLET GT SCH ×2 (08:37→21:10)
[2018-11-08] MEDS: VIMPAT 200 MG GT SCH ×2 (08:37→21:10)
[2018-11-08] MEDS: AMLODIPINE 10 MG TABLET GT SCH (08:37)
[2018-11-08] MEDS: PHENOBARBITAL 30 MG/7.5 ML LIQUID UDC GT SCH ×2 (08:37→21:10)
[2018-11-08] MEDS: DIAZEPAM 10 MG TABLET GT SCH ×2 (09:02→21:10)
[2018-11-08] MEDS: VITAL AF 1.2 1,000 ML LIQUID GT PRN (11:17)
[2018-11-08] MEDS: MULTIVIT, IRON, MIN NO. 8, FA TABLET GT SCH (21:10)
[2018-11-08 22:11] VITALS: BP 147/93
[2018-11-09] MEDS: VITAL AF 1.2 1,000 ML LIQUID GT PRN ×2 (00:23→17:06)
[2018-11-09 08:05] VITALS: BP 131/84
[2018-11-09] MEDS: METOPROLOL TARTRATE 25 MG TABLET GT SCH ×2 (09:26→21:57)
[2018-11-09] MEDS: LEVETIRACETAM 500 MG/5 ML LIQUID UDC GT SCH ×2 (09:26→21:56)
[2018-11-09] MEDS: PHENOBARBITAL 30 MG/7.5 ML LIQUID UDC GT SCH ×2 (09:27→21:57)
[2018-11-09] MEDS: DIAZEPAM 10 MG TABLET GT SCH ×2 (09:27→21:57)
[2018-11-09] MEDS: VITAMINS A AND D OINT TP SCH ×2 (09:27→21:57)
[2018-11-09] MEDS: ASCORBIC ACID 500 MG TABLET GT SCH ×2 (09:27→21:57)
[2018-11-09] MEDS: HYDROGEN PEROXIDE 3% 118 ML BOTTLE TP SCH ×2 (09:27→21:57)
[2018-11-09] MEDS: Z GUARD REMEDY PASTE 57 GM TUBE TOP SCH ×2 (09:27→21:57)
[2018-11-09] MEDS: AMLODIPINE 10 MG TABLET GT SCH (09:27)
[2018-11-09] MEDS: LISINOPRIL 10 MG TABLET GT SCH (09:27)
[2018-11-09] MEDS: VIMPAT 200 MG GT SCH ×2 (09:27→21:57)
[2018-11-09] MEDS: MULTIVIT, IRON, MIN NO. 8, FA TABLET GT SCH (21:57)
[2018-11-09 22:00] VITALS: BP 121/76
[2018-11-10 08:03] VITALS: BP 125/69
[2018-11-10] MEDS: METOPROLOL TARTRATE 25 MG TABLET GT SCH ×2 (09:16→21:32)
[2018-11-10] MEDS: AMLODIPINE 10 MG TABLET GT SCH (09:16)
[2018-11-10] MEDS: PHENOBARBITAL 30 MG/7.5 ML LIQUID UDC GT SCH ×2 (09:16→21:32)
[2018-11-10] MEDS: LEVETIRACETAM 500 MG/5 ML LIQUID UDC GT SCH ×2 (09:16→21:31)
[2018-11-10] MEDS: VIMPAT 200 MG GT SCH ×2 (09:16→21:32)
[2018-11-10] MEDS: VITAMINS A AND D OINT TP SCH ×2 (09:17→21:32)
[2018-11-10] MEDS: DIAZEPAM 10 MG TABLET GT SCH ×2 (09:17→21:32)
[2018-11-10] MEDS: LISINOPRIL 10 MG TABLET GT SCH (09:17)
[2018-11-10] MEDS: ASCORBIC ACID 500 MG TABLET GT SCH ×2 (09:17→21:32)
[2018-11-10] MEDS: Z GUARD REMEDY PASTE 57 GM TUBE TOP SCH ×2 (09:17→21:32)
[2018-11-10] MEDS: HYDROGEN PEROXIDE 3% 118 ML BOTTLE TP SCH ×2 (09:17→21:32)
[2018-11-10 20:36] VITALS: BP 128/72
[2018-11-10] MEDS: MULTIVIT, IRON, MIN NO. 8, FA TABLET GT SCH (21:32)
[2018-11-11] MEDS: VITAL AF 1.2 1,000 ML LIQUID GT PRN ×2 (04:00→22:05)
[2018-11-11 08:05] VITALS: BP 129/85
[2018-11-11] MEDS: METOPROLOL TARTRATE 25 MG TABLET GT SCH ×2 (08:40→21:00)
[2018-11-11] MEDS: LEVETIRACETAM 500 MG/5 ML LIQUID UDC GT SCH ×2 (08:40→21:00)
[2018-11-11] MEDS: AMLODIPINE 10 MG TABLET GT SCH (08:41)
[2018-11-11] MEDS: ASCORBIC ACID 500 MG TABLET GT SCH ×2 (08:44→21:00)
[2018-11-11] MEDS: LISINOPRIL 10 MG TABLET GT SCH (08:44)
[2018-11-11] MEDS: HYDROGEN PEROXIDE 3% 118 ML BOTTLE TP SCH ×2 (08:45→21:00)
[2018-11-11] MEDS: VITAMINS A AND D OINT TP SCH ×2 (08:45→21:00)
[2018-11-11] MEDS: Z GUARD REMEDY PASTE 57 GM TUBE TOP SCH ×2 (08:45→21:00)
[2018-11-11] MEDS: DIAZEPAM 10 MG TABLET GT SCH ×2 (09:01→21:00)
[2018-11-11] MEDS: VIMPAT 200 MG GT SCH ×2 (09:01→21:00)
[2018-11-11] MEDS: PHENOBARBITAL 30 MG/7.5 ML LIQUID UDC GT SCH ×2 (09:01→21:00)
[2018-11-11 20:00] VITALS: BP 130/82
[2018-11-11] MEDS: MULTIVIT, IRON, MIN NO. 8, FA TABLET GT SCH (21:00)
[2018-11-12] MEDS: LEVETIRACETAM 500 MG/5 ML LIQUID UDC GT SCH ×2 (09:08→21:48)
[2018-11-12] MEDS: VIMPAT 200 MG GT SCH ×2 (09:08→21:48)
[2018-11-12] MEDS: METOPROLOL TARTRATE 25 MG TABLET GT SCH ×2 (09:08→21:48)
[2018-11-12] MEDS: AMLODIPINE 10 MG TABLET GT SCH (09:09)
[2018-11-12] MEDS: PHENOBARBITAL 30 MG/7.5 ML LIQUID UDC GT SCH ×2 (09:09→21:48)
[2018-11-12] MEDS: LISINOPRIL 10 MG TABLET GT SCH (09:09)
[2018-11-12] MEDS: ASCORBIC ACID 500 MG TABLET GT SCH ×2 (09:09→21:50)
[2018-11-12] MEDS: DIAZEPAM 10 MG TABLET GT SCH ×2 (09:09→21:50)
[2018-11-12] MEDS: VITAMINS A AND D OINT TP SCH ×2 (09:10→21:50)
[2018-11-12] MEDS: HYDROGEN PEROXIDE 3% 118 ML BOTTLE TP SCH ×2 (09:10→21:50)
[2018-11-12] MEDS: Z GUARD REMEDY PASTE 57 GM TUBE TOP SCH ×2 (09:10→21:50)
[2018-11-12 09:11] VITALS: BP 132/83
[2018-11-12] MEDS: VITAL AF 1.2 1,000 ML LIQUID GT PRN (15:01)
[2018-11-12 20:35] VITALS: BP 154/92
[2018-11-12] MEDS: MULTIVIT, IRON, MIN NO. 8, FA TABLET GT SCH (21:49)
[2018-11-13] MEDS: METOPROLOL TARTRATE 25 MG TABLET GT SCH ×2 (08:09→21:46)
[2018-11-13] MEDS: LEVETIRACETAM 500 MG/5 ML LIQUID UDC GT SCH ×2 (08:09→21:45)
[2018-11-13] MEDS: LISINOPRIL 10 MG TABLET GT SCH (08:10)
[2018-11-13] MEDS: VIMPAT 200 MG GT SCH ×2 (08:10→21:47)
[2018-11-13] MEDS: AMLODIPINE 10 MG TABLET GT SCH (08:10)
[2018-11-13] MEDS: DIAZEPAM 10 MG TABLET GT SCH ×2 (08:10→21:57)
[2018-11-13] MEDS: ASCORBIC ACID 500 MG TABLET GT SCH ×2 (08:10→21:57)
[2018-11-13] MEDS: PHENOBARBITAL 30 MG/7.5 ML LIQUID UDC GT SCH ×2 (08:10→21:52)
[2018-11-13] MEDS: HYDROGEN PEROXIDE 3% 118 ML BOTTLE TP SCH ×2 (08:11→21:57)
[2018-11-13] MEDS: VITAMINS A AND D OINT TP SCH ×2 (08:11→21:57)
[2018-11-13] MEDS: Z GUARD REMEDY PASTE 57 GM TUBE TOP SCH ×2 (08:11→21:57)
[2018-11-13 10:56] VITALS: BP 128/84
[2018-11-13 20:37] VITALS: BP 126/86
[2018-11-13] MEDS: MULTIVIT, IRON, MIN NO. 8, FA TABLET GT SCH (21:56)
[2018-11-14] MEDS: VITAL AF 1.2 1,000 ML LIQUID GT PRN (00:44)
[2018-11-14] MEDS: HYDROGEN PEROXIDE 3% 118 ML BOTTLE TP SCH ×2 (09:00→20:46)
[2018-11-14] MEDS: ASCORBIC ACID 500 MG TABLET GT SCH ×2 (09:00→20:45)
[2018-11-14] MEDS: METOPROLOL TARTRATE 25 MG TABLET GT SCH ×2 (09:00→20:46)
[2018-11-14] MEDS: DIAZEPAM 10 MG TABLET GT SCH ×2 (09:00→20:45)
[2018-11-14] MEDS: LEVETIRACETAM 500 MG/5 ML LIQUID UDC GT SCH ×2 (09:00→20:43)
[2018-11-14] MEDS: VITAMINS A AND D OINT TP SCH ×2 (09:00→20:47)
[2018-11-14] MEDS: Z GUARD REMEDY PASTE 57 GM TUBE TOP SCH ×2 (09:00→20:46)
[2018-11-14] MEDS: PHENOBARBITAL 30 MG/7.5 ML LIQUID UDC GT SCH ×2 (09:00→20:45)
[2018-11-14] MEDS: VIMPAT 200 MG GT SCH ×2 (09:00→20:43)
[2018-11-14] MEDS: LISINOPRIL 10 MG TABLET GT SCH (09:00)
[2018-11-14] MEDS: AMLODIPINE 10 MG TABLET GT SCH (09:00)
[2018-11-14 11:13] VITALS: BP 131/79
[2018-11-14 20:33] VITALS: BP 151/97
[2018-11-14] MEDS: MULTIVIT, IRON, MIN NO. 8, FA TABLET GT SCH (20:45)
[2018-11-15] MEDS: VITAL AF 1.2 1,000 ML LIQUID GT PRN ×2 (05:21→10:55)
[2018-11-15 08:19] VITALS: BP 132/69
[2018-11-15] MEDS: LEVETIRACETAM 500 MG/5 ML LIQUID UDC GT SCH ×2 (09:44→20:24)
[2018-11-15] MEDS: VIMPAT 200 MG GT SCH ×2 (09:45→20:24)
[2018-11-15] MEDS: PHENOBARBITAL 30 MG/7.5 ML LIQUID UDC GT SCH ×2 (09:45→20:24)
[2018-11-15] MEDS: HYDROGEN PEROXIDE 3% 118 ML BOTTLE TP SCH ×2 (09:45→20:26)
[2018-11-15] MEDS: AMLODIPINE 10 MG TABLET GT SCH (09:45)
[2018-11-15] MEDS: Z GUARD REMEDY PASTE 57 GM TUBE TOP SCH ×2 (09:45→20:26)
[2018-11-15] MEDS: METOPROLOL TARTRATE 25 MG TABLET GT SCH ×2 (09:45→20:25)
[2018-11-15] MEDS: LISINOPRIL 10 MG TABLET GT SCH (09:45)
[2018-11-15] MEDS: DIAZEPAM 10 MG TABLET GT SCH ×2 (09:45→20:26)
[2018-11-15] MEDS: ASCORBIC ACID 500 MG TABLET GT SCH ×2 (09:45→20:26)
[2018-11-15] MEDS: VITAMINS A AND D OINT TP SCH ×2 (09:46→20:26)
[2018-11-15] MEDS: MULTIVIT, IRON, MIN NO. 8, FA TABLET GT SCH (20:24)
[2018-11-15 20:41] VITALS: BP 156/96
[2018-11-16] MEDS: VITAL AF 1.2 1,000 ML LIQUID GT PRN (05:16)
[2018-11-16 08:00] VITALS: BP_SYST 104; BP_SYST 143; BP_DIAS 62; BP_DIAS 95
[2018-11-16] MEDS: LEVETIRACETAM 500 MG/5 ML LIQUID UDC GT SCH ×2 (09:20→20:40)
[2018-11-16] MEDS: METOPROLOL TARTRATE 25 MG TABLET GT SCH ×2 (09:21→20:41)
[2018-11-16] MEDS: Z GUARD REMEDY PASTE 57 GM TUBE TOP SCH ×2 (09:21→20:41)
[2018-11-16] MEDS: ASCORBIC ACID 500 MG TABLET GT SCH ×2 (09:21→20:41)
[2018-11-16] MEDS: DIAZEPAM 10 MG TABLET GT SCH ×2 (09:21→20:41)
[2018-11-16] MEDS: HYDROGEN PEROXIDE 3% 118 ML BOTTLE TP SCH ×2 (09:21→20:41)
[2018-11-16] MEDS: VIMPAT 200 MG GT SCH ×2 (09:21→20:41)
[2018-11-16] MEDS: LISINOPRIL 10 MG TABLET GT SCH (09:21)
[2018-11-16] MEDS: PHENOBARBITAL 30 MG/7.5 ML LIQUID UDC GT SCH ×2 (09:21→20:41)
[2018-11-16] MEDS: AMLODIPINE 10 MG TABLET GT SCH (09:21)
[2018-11-16] MEDS: VITAMINS A AND D OINT TP SCH ×2 (09:21→20:41)
[2018-11-16] MEDS: MULTIVIT, IRON, MIN NO. 8, FA TABLET GT SCH (20:41)
[2018-11-16 20:56] VITALS: BP 139/92
[2018-11-17 08:00] VITALS: BP 139/95
[2018-11-17] MEDS: LEVETIRACETAM 500 MG/5 ML LIQUID UDC GT SCH ×2 (08:16→20:32)
[2018-11-17] MEDS: METOPROLOL TARTRATE 25 MG TABLET GT SCH (08:17)
[2018-11-17] MEDS: VIMPAT 200 MG GT SCH ×2 (08:18→20:33)
[2018-11-17] MEDS: PHENOBARBITAL 30 MG/7.5 ML LIQUID UDC GT SCH ×2 (08:19→20:33)
[2018-11-17] MEDS: AMLODIPINE 10 MG TABLET GT SCH (08:19)
[2018-11-17] MEDS: LISINOPRIL 10 MG TABLET GT SCH (08:19)
[2018-11-17] MEDS: DIAZEPAM 10 MG TABLET GT SCH ×2 (08:20→20:33)
[2018-11-17] MEDS: ASCORBIC ACID 500 MG TABLET GT SCH ×2 (08:20→20:33)
[2018-11-17] MEDS: VITAMINS A AND D OINT TP SCH ×2 (08:21→20:33)
[2018-11-17] MEDS: Z GUARD REMEDY PASTE 57 GM TUBE TOP SCH ×2 (08:21→20:33)
[2018-11-17] MEDS: HYDROGEN PEROXIDE 3% 118 ML BOTTLE TP SCH ×2 (08:21→20:33)
[2018-11-17] MEDS: ASPIRIN 81 MG TAB.CHEW GT SCH (15:50)
[2018-11-17 20:03] VITALS: BP 152/93
[2018-11-17] MEDS: MULTIVIT, IRON, MIN NO. 8, FA TABLET GT SCH (20:33)
[2018-11-17] MEDS ORDERED: METOPROLOL TARTRATE 25 MG TABLET GT SCH (21:00)
[2018-11-18] MEDS: VITAL AF 1.2 1,000 ML LIQUID GT PRN ×2 (05:00→18:49)
[2018-11-18 08:04] VITALS: BP 138/97
[2018-11-18] MEDS: METOPROLOL TARTRATE 50 MG TABLET GT SCH ×2 (09:13→20:25)
[2018-11-18] MEDS: ASPIRIN 81 MG TAB.CHEW GT SCH (09:13)
[2018-11-18] MEDS: LEVETIRACETAM 500 MG/5 ML LIQUID UDC GT SCH ×2 (09:13→20:24)
[2018-11-18] MEDS: VIMPAT 200 MG GT SCH ×2 (09:14→20:25)
[2018-11-18] MEDS: LISINOPRIL 10 MG TABLET GT SCH (09:15)
[2018-11-18] MEDS: PHENOBARBITAL 30 MG/7.5 ML LIQUID UDC GT SCH ×2 (09:15→20:25)
[2018-11-18] MEDS: AMLODIPINE 10 MG TABLET GT SCH (09:15)
[2018-11-18] MEDS: DIAZEPAM 10 MG TABLET GT SCH ×2 (09:18→20:25)
[2018-11-18] MEDS: HYDROGEN PEROXIDE 3% 118 ML BOTTLE TP SCH ×2 (09:18→20:25)
[2018-11-18] MEDS: ASCORBIC ACID 500 MG TABLET GT SCH ×2 (09:18→20:25)
[2018-11-18] MEDS: VITAMINS A AND D OINT TP SCH ×2 (09:18→20:26)
[2018-11-18] MEDS: Z GUARD REMEDY PASTE 57 GM TUBE TOP SCH ×2 (09:18→20:25)
[2018-11-18 20:12] VITALS: BP 148/84
[2018-11-18] MEDS: MULTIVIT, IRON, MIN NO. 8, FA TABLET GT SCH (20:25)
[2018-11-19 08:00] VITALS: BP 110/62
[2018-11-19] MEDS: HYDROGEN PEROXIDE 3% 118 ML BOTTLE TP SCH ×2 (09:00→21:55)
[2018-11-19] MEDS: LISINOPRIL 10 MG TABLET GT SCH (09:00)
[2018-11-19] MEDS: AMLODIPINE 10 MG TABLET GT SCH (09:00)
[2018-11-19] MEDS: Z GUARD REMEDY PASTE 57 GM TUBE TOP SCH ×2 (09:00→21:55)
[2018-11-19] MEDS: METOPROLOL TARTRATE 50 MG TABLET GT SCH ×2 (09:00→21:50)
[2018-11-19] MEDS: VIMPAT 200 MG GT SCH ×2 (09:00→21:51)
[2018-11-19] MEDS: PHENOBARBITAL 30 MG/7.5 ML LIQUID UDC GT SCH ×2 (09:00→21:51)
[2018-11-19] MEDS: LEVETIRACETAM 500 MG/5 ML LIQUID UDC GT SCH ×2 (09:00→21:49)
[2018-11-19] MEDS: ASCORBIC ACID 500 MG TABLET GT SCH ×2 (09:00→21:55)
[2018-11-19] MEDS: DIAZEPAM 10 MG TABLET GT SCH ×2 (09:00→21:55)
[2018-11-19] MEDS: VITAMINS A AND D OINT TP SCH ×2 (09:00→21:55)
[2018-11-19] MEDS: ASPIRIN 81 MG TAB.CHEW GT SCH (09:00)
[2018-11-19 20:00] VITALS: BP 159/95
[2018-11-19] MEDS: MULTIVIT, IRON, MIN NO. 8, FA TABLET GT SCH (21:52)
[2018-11-20] MEDS: VITAL AF 1.2 1,000 ML LIQUID GT PRN ×2 (05:41→20:00)
[2018-11-20 08:00] VITALS: BP 151/96
[2018-11-20] MEDS: LEVETIRACETAM 500 MG/5 ML LIQUID UDC GT SCH ×2 (08:17→20:00)
[2018-11-20] MEDS: ASPIRIN 81 MG TAB.CHEW GT SCH (08:17)
[2018-11-20] MEDS: DIAZEPAM 10 MG TABLET GT SCH ×2 (08:18→20:00)
[2018-11-20] MEDS: METOPROLOL TARTRATE 50 MG TABLET GT SCH ×2 (08:18→20:00)
[2018-11-20] MEDS: ASCORBIC ACID 500 MG TABLET GT SCH ×2 (08:18→20:01)
[2018-11-20] MEDS: HYDROGEN PEROXIDE 3% 118 ML BOTTLE TP SCH ×2 (08:18→20:01)
[2018-11-20] MEDS: LISINOPRIL 10 MG TABLET GT SCH (08:18)
[2018-11-20] MEDS: AMLODIPINE 10 MG TABLET GT SCH (08:18)
[2018-11-20] MEDS: PHENOBARBITAL 30 MG/7.5 ML LIQUID UDC GT SCH ×2 (08:18→20:00)
[2018-11-20] MEDS: Z GUARD REMEDY PASTE 57 GM TUBE TOP SCH ×2 (08:18→20:01)
[2018-11-20] MEDS: VIMPAT 200 MG GT SCH ×2 (08:18→20:00)
[2018-11-20] MEDS: VITAMINS A AND D OINT TP SCH ×2 (08:18→20:01)
[2018-11-20] MEDS: MULTIVIT, IRON, MIN NO. 8, FA TABLET GT SCH (20:00)
[2018-11-20 20:09] VITALS: BP 142/88
[2018-11-21 08:00] VITALS: BP 108/74
[2018-11-21] MEDS: LEVETIRACETAM 500 MG/5 ML LIQUID UDC GT SCH ×2 (08:01→20:39)
[2018-11-21] MEDS: METOPROLOL TARTRATE 50 MG TABLET GT SCH ×2 (08:01→20:50)
[2018-11-21] MEDS: AMLODIPINE 10 MG TABLET GT SCH (08:01)
[2018-11-21] MEDS: VIMPAT 200 MG GT SCH ×2 (08:01→20:39)
[2018-11-21] MEDS: ASPIRIN 81 MG TAB.CHEW GT SCH (08:01)
[2018-11-21] MEDS: PHENOBARBITAL 30 MG/7.5 ML LIQUID UDC GT SCH ×2 (08:02→20:39)
[2018-11-21] MEDS: ASCORBIC ACID 500 MG TABLET GT SCH ×2 (08:03→20:39)
[2018-11-21] MEDS: VITAMINS A AND D OINT TP SCH ×2 (08:03→20:40)
[2018-11-21] MEDS: HYDROGEN PEROXIDE 3% 118 ML BOTTLE TP SCH ×2 (08:03→20:39)
[2018-11-21] MEDS: DIAZEPAM 10 MG TABLET GT SCH ×2 (08:03→20:39)
[2018-11-21] MEDS: LISINOPRIL 10 MG TABLET GT SCH (08:03)
[2018-11-21] MEDS: Z GUARD REMEDY PASTE 57 GM TUBE TOP SCH ×2 (08:03→20:39)
[2018-11-21] MEDS: VITAL AF 1.2 1,000 ML LIQUID GT PRN (15:30)
[2018-11-21 20:23] VITALS: BP 136/87
[2018-11-21] MEDS: MULTIVIT, IRON, MIN NO. 8, FA TABLET GT SCH (20:39)
[2018-11-21] MEDS: ACETAMINOPHEN 650 MG/20 ML UDC- SA PATIENTS-PAIN ONLY GT PRN (20:51)
[2018-11-22] MEDS: VITAL AF 1.2 1,000 ML LIQUID GT PRN ×2 (05:00→20:00)
[2018-11-22 06:54] VITALS: BP 115/72
[2018-11-22 08:00] VITALS: BP 125/82
[2018-11-22] MEDS: ASPIRIN 81 MG TAB.CHEW GT SCH (09:09)
[2018-11-22] MEDS: LEVETIRACETAM 500 MG/5 ML LIQUID UDC GT SCH ×2 (09:09→20:34)
[2018-11-22] MEDS: METOPROLOL TARTRATE 50 MG TABLET GT SCH ×2 (09:09→20:35)
[2018-11-22] MEDS: LISINOPRIL 10 MG TABLET GT SCH (09:10)
[2018-11-22] MEDS: AMLODIPINE 10 MG TABLET GT SCH (09:10)
[2018-11-22] MEDS: DIAZEPAM 10 MG TABLET GT SCH ×2 (09:11→20:36)
[2018-11-22] MEDS: VIMPAT 200 MG GT SCH ×2 (09:11→20:35)
[2018-11-22] MEDS: ASCORBIC ACID 500 MG TABLET GT SCH ×2 (09:12→20:36)
[2018-11-22] MEDS: Z GUARD REMEDY PASTE 57 GM TUBE TOP SCH ×2 (09:13→20:36)
[2018-11-22] MEDS: HYDROGEN PEROXIDE 3% 118 ML BOTTLE TP SCH ×2 (09:13→20:36)
[2018-11-22] MEDS: VITAMINS A AND D OINT TP SCH ×2 (09:13→20:36)
[2018-11-22] MEDS: PHENOBARBITAL 32.4 MG TABLET GT SCH ×2 (09:44→20:35)
[2018-11-22 20:24] VITALS: BP 129/86
[2018-11-22] MEDS: MULTIVIT, IRON, MIN NO. 8, FA TABLET GT SCH (20:36)
[2018-11-23 08:00] VITALS: BP 114/75
[2018-11-23] MEDS: METOPROLOL TARTRATE 50 MG TABLET GT SCH ×2 (08:49→20:45)
[2018-11-23] MEDS: LEVETIRACETAM 500 MG/5 ML LIQUID UDC GT SCH ×2 (08:49→20:28)
[2018-11-23] MEDS: ASPIRIN 81 MG TAB.CHEW GT SCH (08:49)
[2018-11-23] MEDS: VIMPAT 200 MG GT SCH ×2 (08:51→20:28)
[2018-11-23] MEDS: PHENOBARBITAL 32.4 MG TABLET GT SCH ×2 (08:51→20:29)
[2018-11-23] MEDS: LISINOPRIL 10 MG TABLET GT SCH (08:51)
[2018-11-23] MEDS: AMLODIPINE 10 MG TABLET GT SCH (08:51)
[2018-11-23] MEDS: ASCORBIC ACID 500 MG TABLET GT SCH ×2 (08:55→20:29)
[2018-11-23] MEDS: DIAZEPAM 10 MG TABLET GT SCH ×2 (08:55→20:29)
[2018-11-23] MEDS: Z GUARD REMEDY PASTE 57 GM TUBE TOP SCH ×2 (08:55→20:29)
[2018-11-23] MEDS: VITAMINS A AND D OINT TP SCH ×2 (08:56→20:29)
[2018-11-23] MEDS: HYDROGEN PEROXIDE 3% 118 ML BOTTLE TP SCH ×2 (08:56→20:29)
[2018-11-23] MEDS: NYSTATIN SUSPENSION 5 ML LIQUID UDC XX SCH ×3 (13:59→20:29)
[2018-11-23] MEDS: VITAL AF 1.2 1,000 ML LIQUID GT PRN (14:25)
[2018-11-23] MEDS: MULTIVIT, IRON, MIN NO. 8, FA TABLET GT SCH (20:29)
[2018-11-23 20:44] VITALS: BP 149/96
[2018-11-24] MEDS: ACETAMINOPHEN 650 MG/20 ML UDC- SA PATIENTS-PAIN ONLY GT PRN (07:17)
[2018-11-24 08:05] VITALS: BP 163/111
[2018-11-24] MEDS: LEVETIRACETAM 500 MG/5 ML LIQUID UDC GT SCH ×2 (08:12→20:36)
[2018-11-24] MEDS: ASPIRIN 81 MG TAB.CHEW GT SCH (08:12)
[2018-11-24] MEDS: VIMPAT 200 MG GT SCH ×2 (08:14→20:37)
[2018-11-24] MEDS: METOPROLOL TARTRATE 50 MG TABLET GT SCH ×2 (08:14→20:37)
[2018-11-24] MEDS: AMLODIPINE 10 MG TABLET GT SCH (08:14)
[2018-11-24 08:15] VITALS: BP 160/108
[2018-11-24] MEDS: LISINOPRIL 10 MG TABLET GT SCH (08:15)
[2018-11-24] MEDS: DIAZEPAM 10 MG TABLET GT SCH ×2 (08:16→20:38)
[2018-11-24] MEDS: PHENOBARBITAL 30 MG/7.5 ML LIQUID UDC GT SCH ×2 (08:16→20:37)
[2018-11-24] MEDS: HYDROGEN PEROXIDE 3% 118 ML BOTTLE TP SCH ×2 (08:17→20:38)
[2018-11-24] MEDS: VITAMINS A AND D OINT TP SCH ×2 (08:17→20:38)
[2018-11-24] MEDS: NYSTATIN SUSPENSION 5 ML LIQUID UDC XX SCH ×4 (08:17→20:38)
[2018-11-24] MEDS: ASCORBIC ACID 500 MG TABLET GT SCH ×2 (08:17→20:38)
[2018-11-24] MEDS: Z GUARD REMEDY PASTE 57 GM TUBE TOP SCH ×2 (08:17→20:38)
[2018-11-24 10:09] VITALS: BP 120/79
[2018-11-24 13:34] LABS: ALANINE AMINOTRANSFERASE 46 U/L (14-59); ALKALINE PHOSPHATASE 95 U/L (50-136); ASPARTATE AMINOTRANSFERASE 18 U/L (15-37); BILIRUBIN,TOTAL 0.3 mg/dL (0.2-1.0); CARBON DIOXIDE 31 mmol/L (21-32); CHLORIDE 109 mmol/L (98-107); CREATININE 0.3 mg/dL (0.6-1.3); GLUCOSE 107 mg/dL (74-106); POTASSIUM 3.5 mmol/L (3.5-5.1); TOTAL PROTEIN, SERUM 7.5 g/dL (6.4-8.2); UREA NITROGEN, BLOOD 34 mg/dL (7-18)
[2018-11-24 13:44] LABS: BASOPHILS % (AUTO) 0.4 % (0.0-2.0); EOSINOPHILS # (AUTO) 0.1 K/uL (0.0-0.7); EOSINOPHILS % (AUTO) 2.4 % (0.0-7.0); HEMATOCRIT 36.7 % (31.2-41.9); HEMOGLOBIN 12.2 g/dL (10.9-14.3); LYMPHOCYTES # (AUTO) 1.1 K/uL (20.0-40.0); LYMPHOCYTES % (AUTO) 24.6 % (20.5-51.5); MEAN CORPUSCULAR HEMOGLOBIN 29.3 uug (24.7-32.8); MEAN CORPUSCULAR HGB CONC 33 g/dL (32.3-35.6); MONOCYTES # (AUTO) 0.3 K/uL (2.0-10.0); MONOCYTES % (AUTO) 7.2 % (0.0-11.0); NEUTROPHILS # (AUTO) 2.9 K/uL (1.8-8.9); NEUTROPHILS % (AUTO) 65.4 % (38.5-71.5); PLATELET COUNT (AUTO) 190 K/uL (179-408); RED BLOOD CELL COUNT(AUTO) 4.17 MIL/uL (3.63-4.92); WHITE BLOOD COUNT (AUTO) 4.4 K/uL (3.8-11.8)
[2018-11-24 16:44] LABS: *BILIRUBIN,URIN NEGATIVE (NEGATIVE); *BLOOD, URINE 2+ (NEGATIVE); *CLARITY,URINE CLEAR (CLEAR); *COLOR,URINE YELLOW (YELLOW); *KETONES,URINE NEGATIVE (NEGATIVE); *UROBILINOGEN,URINE 0.2 E.U./dl (NORMAL); LEUKOCYTE ESTERASE ,URINE 1+ (NEGATIVE); NITRITE, URINE POSITIVE (NEGATIVE); PH,URINE 5.5 (5.0-8.0); UGLUCOSE NEGATIVE (NEGATIVE)
[2018-11-24 16:52] LABS: BACTERIA,URINE 2 /HPF (NONE SEEN); RBC,URINE 20-50 /HPF (0-3); SQUAMOUS EPITHELIAL CELL,UR MANY /HPF (NONE SEEN)
[2018-11-24] MEDS: VITAL AF 1.2 1,000 ML LIQUID GT PRN (18:46)
[2018-11-24 20:22] VITALS: BP 110/74
[2018-11-24] MEDS: MULTIVIT, IRON, MIN NO. 8, FA TABLET GT SCH (20:37)
[2018-11-25] MEDS: ASPIRIN 81 MG TAB.CHEW GT SCH (08:03)
[2018-11-25 08:04] VITALS: BP 136/93
[2018-11-25] MEDS: LEVETIRACETAM 500 MG/5 ML LIQUID UDC GT SCH ×2 (08:04→21:00)
[2018-11-25] MEDS: LISINOPRIL 10 MG TABLET GT SCH (08:05)
[2018-11-25] MEDS: METOPROLOL TARTRATE 50 MG TABLET GT SCH ×2 (08:05→21:03)
[2018-11-25] MEDS: AMLODIPINE 10 MG TABLET GT SCH (08:06)
[2018-11-25] MEDS: VIMPAT 200 MG GT SCH ×2 (08:07→21:00)
[2018-11-25] MEDS: PHENOBARBITAL 30 MG/7.5 ML LIQUID UDC GT SCH ×2 (08:12→21:00)
[2018-11-25] MEDS: ASCORBIC ACID 500 MG TABLET GT SCH ×2 (08:13→21:00)
[2018-11-25] MEDS: DIAZEPAM 10 MG TABLET GT SCH ×2 (08:13→21:00)
[2018-11-25] MEDS: HYDROGEN PEROXIDE 3% 118 ML BOTTLE TP SCH ×2 (08:14→21:01)
[2018-11-25] MEDS: VITAMINS A AND D OINT TP SCH ×2 (08:14→21:01)
[2018-11-25] MEDS: Z GUARD REMEDY PASTE 57 GM TUBE TOP SCH ×2 (08:14→21:01)
[2018-11-25] MEDS: NYSTATIN SUSPENSION 5 ML LIQUID UDC XX SCH ×4 (08:17→21:01)
[2018-11-25] MEDS: ACIDOPHILUS/BULGARICUS CHEW TAB GT SCH (17:09)
[2018-11-25] MEDS: MEROPENEM 1 G in IV NORMAL SALINE 100 ML IV SCH (18:00)
[2018-11-25 20:25] VITALS: BP 134/82
[2018-11-25] MEDS: MULTIVIT, IRON, MIN NO. 8, FA TABLET GT SCH (21:00)
[2018-11-26] MEDS: MEROPENEM 1 G in IV NORMAL SALINE 100 ML IV SCH ×3 (01:33→17:45)
[2018-11-26] MEDS: VITAL AF 1.2 1,000 ML LIQUID GT PRN ×2 (05:24→20:30)
[2018-11-26] MEDS: ACIDOPHILUS/BULGARICUS CHEW TAB GT SCH ×2 (08:02→16:00)
[2018-11-26] MEDS: LEVETIRACETAM 500 MG/5 ML LIQUID UDC GT SCH ×2 (08:02→20:35)
[2018-11-26] MEDS: ASPIRIN 81 MG TAB.CHEW GT SCH (08:02)
[2018-11-26] MEDS: PHENOBARBITAL 30 MG/7.5 ML LIQUID UDC GT SCH ×2 (08:03→20:40)
[2018-11-26] MEDS: LISINOPRIL 10 MG TABLET GT SCH (08:03)
[2018-11-26] MEDS: METOPROLOL TARTRATE 50 MG TABLET GT SCH ×2 (08:03→20:36)
[2018-11-26] MEDS: VIMPAT 200 MG GT SCH ×2 (08:03→20:40)
[2018-11-26] MEDS: AMLODIPINE 10 MG TABLET GT SCH (08:03)
[2018-11-26] MEDS: DIAZEPAM 10 MG TABLET GT SCH ×2 (08:04→20:40)
[2018-11-26] MEDS: NYSTATIN SUSPENSION 5 ML LIQUID UDC XX SCH ×4 (08:05→20:40)
[2018-11-26] MEDS: HYDROGEN PEROXIDE 3% 118 ML BOTTLE TP SCH ×2 (08:05→20:40)
[2018-11-26] MEDS: Z GUARD REMEDY PASTE 57 GM TUBE TOP SCH ×2 (08:05→20:40)
[2018-11-26] MEDS: ASCORBIC ACID 500 MG TABLET GT SCH ×2 (08:05→20:40)
[2018-11-26] MEDS: VITAMINS A AND D OINT TP SCH ×2 (08:05→20:40)
[2018-11-26 08:09] VITALS: BP 123/80
[2018-11-26] MEDS: MULTIVIT, IRON, MIN NO. 8, FA TABLET GT SCH (20:40)
[2018-11-26 22:58] VITALS: BP 128/85
[2018-11-27] MEDS: MEROPENEM 1 G in IV NORMAL SALINE 100 ML IV SCH ×3 (02:26→17:01)
[2018-11-27] MEDS: PHENOBARBITAL 30 MG/7.5 ML LIQUID UDC GT SCH ×2 (09:00→20:44)
[2018-11-27] MEDS: LISINOPRIL 10 MG TABLET GT SCH (09:00)
[2018-11-27] MEDS: ASPIRIN 81 MG TAB.CHEW GT SCH (09:00)
[2018-11-27] MEDS: VITAMINS A AND D OINT TP SCH ×2 (09:00→20:45)
[2018-11-27] MEDS: HYDROGEN PEROXIDE 3% 118 ML BOTTLE TP SCH ×2 (09:00→20:45)
[2018-11-27] MEDS: METOPROLOL TARTRATE 50 MG TABLET GT SCH ×2 (09:00→20:43)
[2018-11-27] MEDS: Z GUARD REMEDY PASTE 57 GM TUBE TOP SCH ×2 (09:00→20:45)
[2018-11-27] MEDS: NYSTATIN SUSPENSION 5 ML LIQUID UDC XX SCH ×4 (09:00→20:45)
[2018-11-27] MEDS: ASCORBIC ACID 500 MG TABLET GT SCH ×2 (09:00→20:45)
[2018-11-27] MEDS: VIMPAT 200 MG GT SCH ×2 (09:00→20:44)
[2018-11-27] MEDS: DIAZEPAM 10 MG TABLET GT SCH ×2 (09:00→20:45)
[2018-11-27] MEDS: AMLODIPINE 10 MG TABLET GT SCH (09:00)
[2018-11-27] MEDS: LEVETIRACETAM 500 MG/5 ML LIQUID UDC GT SCH ×2 (09:00→20:43)
[2018-11-27] MEDS: ACIDOPHILUS/BULGARICUS CHEW TAB GT SCH ×2 (09:00→17:52)
[2018-11-27 14:32] VITALS: BP 124/81
[2018-11-27 20:01] VITALS: BP 126/82
[2018-11-27] MEDS: MULTIVIT, IRON, MIN NO. 8, FA TABLET GT SCH (20:44)
[2018-11-28] MEDS: MEROPENEM 1 G in IV NORMAL SALINE 100 ML IV SCH ×3 (02:00→18:41)
[2018-11-28] MEDS: ACIDOPHILUS/BULGARICUS CHEW TAB GT SCH ×2 (08:28→17:19)
[2018-11-28] MEDS: ASPIRIN 81 MG TAB.CHEW GT SCH (08:28)
[2018-11-28] MEDS: LEVETIRACETAM 500 MG/5 ML LIQUID UDC GT SCH ×2 (08:28→21:42)
[2018-11-28] MEDS: DIAZEPAM 10 MG TABLET GT SCH ×2 (08:29→21:51)
[2018-11-28] MEDS: LISINOPRIL 10 MG TABLET GT SCH (08:29)
[2018-11-28] MEDS: VIMPAT 200 MG GT SCH ×2 (08:29→21:43)
[2018-11-28] MEDS: METOPROLOL TARTRATE 50 MG TABLET GT SCH ×2 (08:29→21:43)
[2018-11-28] MEDS: ASCORBIC ACID 500 MG TABLET GT SCH ×2 (08:29→21:51)
[2018-11-28] MEDS: PHENOBARBITAL 30 MG/7.5 ML LIQUID UDC GT SCH ×2 (08:29→21:44)
[2018-11-28] MEDS: Z GUARD REMEDY PASTE 57 GM TUBE TOP SCH ×2 (08:29→21:51)
[2018-11-28] MEDS: AMLODIPINE 10 MG TABLET GT SCH (08:29)
[2018-11-28] MEDS: VITAMINS A AND D OINT TP SCH ×2 (08:30→21:51)
[2018-11-28] MEDS: NYSTATIN SUSPENSION 5 ML LIQUID UDC XX SCH ×4 (08:30→21:51)
[2018-11-28] MEDS: HYDROGEN PEROXIDE 3% 118 ML BOTTLE TP SCH ×2 (08:30→21:51)
[2018-11-28 14:26] VITALS: BP 121/83
[2018-11-28 20:00] VITALS: BP 149/91
[2018-11-28] MEDS: MULTIVIT, IRON, MIN NO. 8, FA TABLET GT SCH (21:49)
[2018-11-29] MEDS: MEROPENEM 1 G in IV NORMAL SALINE 100 ML IV SCH ×3 (01:59→18:10)
[2018-11-29] MEDS: PHENOBARBITAL 30 MG/7.5 ML LIQUID UDC GT SCH ×2 (08:12→21:30)
[2018-11-29] MEDS: DIAZEPAM 10 MG TABLET GT SCH ×2 (08:13→21:30)
[2018-11-29] MEDS: ACIDOPHILUS/BULGARICUS CHEW TAB GT SCH ×2 (08:58→17:00)
[2018-11-29] MEDS: ASPIRIN 81 MG TAB.CHEW GT SCH (08:58)
[2018-11-29] MEDS: LEVETIRACETAM 500 MG/5 ML LIQUID UDC GT SCH ×2 (08:59→21:21)
[2018-11-29] MEDS: METOPROLOL TARTRATE 50 MG TABLET GT SCH ×2 (08:59→21:21)
[2018-11-29] MEDS: LISINOPRIL 10 MG TABLET GT SCH (09:00)
[2018-11-29] MEDS: AMLODIPINE 10 MG TABLET GT SCH (09:00)
[2018-11-29] MEDS: VIMPAT 200 MG GT SCH ×2 (09:01→21:22)
[2018-11-29] MEDS: VITAMINS A AND D OINT TP SCH ×2 (09:03→21:32)
[2018-11-29] MEDS: NYSTATIN SUSPENSION 5 ML LIQUID UDC XX SCH ×4 (09:03→21:32)
[2018-11-29] MEDS: HYDROGEN PEROXIDE 3% 118 ML BOTTLE TP SCH ×2 (09:03→21:32)
[2018-11-29] MEDS: Z GUARD REMEDY PASTE 57 GM TUBE TOP SCH ×2 (09:03→21:32)
[2018-11-29] MEDS: ASCORBIC ACID 500 MG TABLET GT SCH ×2 (09:03→21:30)
[2018-11-29 11:52] VITALS: BP 103/71
[2018-11-29] MEDS: VITAL AF 1.2 1,000 ML LIQUID GT PRN (12:00)
[2018-11-29] MEDS: MULTIVIT, IRON, MIN NO. 8, FA TABLET GT SCH (21:30)
[2018-11-29 22:50] VITALS: BP 166/89
[2018-11-30] MEDS: MEROPENEM 1 G in IV NORMAL SALINE 100 ML IV SCH ×3 (01:25→18:48)
[2018-11-30] MEDS: VITAL AF 1.2 1,000 ML LIQUID GT PRN ×2 (03:06→22:09)
[2018-11-30 08:07] VITALS: BP 173/92
[2018-11-30] MEDS: VIMPAT 200 MG GT SCH ×2 (08:08→20:05)
[2018-11-30] MEDS: METOPROLOL TARTRATE 50 MG TABLET GT SCH ×2 (08:08→20:04)
[2018-11-30] MEDS: LISINOPRIL 10 MG TABLET GT SCH (08:08)
[2018-11-30] MEDS: AMLODIPINE 10 MG TABLET GT SCH (08:08)
[2018-11-30] MEDS: LEVETIRACETAM 500 MG/5 ML LIQUID UDC GT SCH ×2 (08:08→20:04)
[2018-11-30] MEDS: ACIDOPHILUS/BULGARICUS CHEW TAB GT SCH ×2 (08:08→16:41)
[2018-11-30] MEDS: PHENOBARBITAL 30 MG/7.5 ML LIQUID UDC GT SCH ×2 (08:08→20:05)
[2018-11-30] MEDS: ASPIRIN 81 MG TAB.CHEW GT SCH (08:08)
[2018-11-30] MEDS: Z GUARD REMEDY PASTE 57 GM TUBE TOP SCH ×2 (08:09→20:05)
[2018-11-30] MEDS: DIAZEPAM 10 MG TABLET GT SCH ×2 (08:09→20:05)
[2018-11-30] MEDS: ASCORBIC ACID 500 MG TABLET GT SCH ×2 (08:09→20:05)
[2018-11-30] MEDS: NYSTATIN SUSPENSION 5 ML LIQUID UDC XX SCH ×4 (08:09→20:06)
[2018-11-30] MEDS: VITAMINS A AND D OINT TP SCH ×2 (08:09→20:06)
[2018-11-30] MEDS: HYDROGEN PEROXIDE 3% 118 ML BOTTLE TP SCH ×2 (08:09→20:05)
[2018-11-30] MEDS: MULTIVIT, IRON, MIN NO. 8, FA TABLET GT SCH (20:05)
[2018-11-30 20:06] VITALS: BP 129/87
[2018-12-01] MEDS: MEROPENEM 1 G in IV NORMAL SALINE 100 ML IV SCH ×2 (01:14→09:16)
[2018-12-01 07:02] LABS: BASOPHILS % (AUTO) 0.3 % (0.0-2.0); EOSINOPHILS # (AUTO) 0.1 K/uL (0.0-0.7); EOSINOPHILS % (AUTO) 2.3 % (0.0-7.0); HEMOGLOBIN 11.7 g/dL (10.9-14.3); LYMPHOCYTES # (AUTO) 0.9 K/uL (20.0-40.0); LYMPHOCYTES % (AUTO) 20.5 % (20.5-51.5); MEAN CORPUSCULAR HEMOGLOBIN 29.9 uug (24.7-32.8); MEAN CORPUSCULAR HGB CONC 34 g/dL (32.3-35.6); MEAN CORPUSCULAR VOLUME 86.8 fL (75.5-95.3); MONOCYTES # (AUTO) 0.3 K/uL (2.0-10.0); MONOCYTES % (AUTO) 6.9 % (0.0-11.0); NEUTROPHILS # (AUTO) 2.9 K/uL (1.8-8.9); PLATELET COUNT (AUTO) 174 K/uL (179-408); RED BLOOD CELL COUNT(AUTO) 3.91 MIL/uL (3.63-4.92); WHITE BLOOD COUNT (AUTO) 4.2 K/uL (3.8-11.8)
[2018-12-01 07:13] LABS: CARBON DIOXIDE 33 mmol/L (21-32); CHLORIDE 110 mmol/L (98-107); CREATININE 0.3 mg/dL (0.6-1.3); GLUCOSE 113 mg/dL (74-106); POTASSIUM 4.1 mmol/L (3.5-5.1); UREA NITROGEN, BLOOD 28 mg/dL (7-18)
[2018-12-01 08:06] VITALS: BP 129/88
[2018-12-01] MEDS: LEVETIRACETAM 500 MG/5 ML LIQUID UDC GT SCH ×2 (09:25→21:11)
[2018-12-01] MEDS: ACIDOPHILUS/BULGARICUS CHEW TAB GT SCH ×2 (09:25→18:00)
[2018-12-01] MEDS: ASPIRIN 81 MG TAB.CHEW GT SCH (09:25)
[2018-12-01] MEDS: METOPROLOL TARTRATE 50 MG TABLET GT SCH ×2 (09:26→21:13)
[2018-12-01] MEDS: AMLODIPINE 10 MG TABLET GT SCH (09:26)
[2018-12-01] MEDS: VIMPAT 200 MG GT SCH ×2 (09:27→21:15)
[2018-12-01] MEDS: LISINOPRIL 10 MG TABLET GT SCH (09:29)
[2018-12-01] MEDS: PHENOBARBITAL 30 MG/7.5 ML LIQUID UDC GT SCH ×2 (09:29→21:16)
[2018-12-01] MEDS: ASCORBIC ACID 500 MG TABLET GT SCH ×2 (09:29→21:17)
[2018-12-01] MEDS: DIAZEPAM 10 MG TABLET GT SCH ×2 (09:29→21:17)
[2018-12-01] MEDS: NYSTATIN SUSPENSION 5 ML LIQUID UDC XX SCH ×4 (09:30→21:20)
[2018-12-01] MEDS: Z GUARD REMEDY PASTE 57 GM TUBE TOP SCH ×2 (09:30→21:19)
[2018-12-01] MEDS: VITAMINS A AND D OINT TP SCH ×2 (09:30→21:20)
[2018-12-01] MEDS: HYDROGEN PEROXIDE 3% 118 ML BOTTLE TP SCH ×2 (09:30→21:19)
[2018-12-01] MEDS: VITAL AF 1.2 1,000 ML LIQUID GT PRN (18:03)
[2018-12-01] MEDS: MULTIVIT, IRON, MIN NO. 8, FA TABLET GT SCH (21:17)
[2018-12-01 21:56] VITALS: BP 134/93
[2018-12-01] MEDS: CEFTAZIDIME 1 G in IV DEXTROSE 5% 50 ML IV SCH (22:15)
[2018-12-02] MEDS: CEFTAZIDIME 1 G in IV DEXTROSE 5% 50 ML IV SCH ×3 (05:24→21:55)
[2018-12-02 08:00] VITALS: BP 123/82
[2018-12-02] MEDS: ACIDOPHILUS/BULGARICUS CHEW TAB GT SCH (09:01)
[2018-12-02] MEDS: ASPIRIN 81 MG TAB.CHEW GT SCH (09:01)
[2018-12-02] MEDS: METOPROLOL TARTRATE 50 MG TABLET GT SCH ×2 (09:02→21:33)
[2018-12-02] MEDS: VIMPAT 200 MG GT SCH ×2 (09:03→21:33)
[2018-12-02] MEDS: PHENOBARBITAL 30 MG/7.5 ML LIQUID UDC GT SCH ×2 (09:04→21:33)
[2018-12-02] MEDS: AMLODIPINE 10 MG TABLET GT SCH (09:04)
[2018-12-02] MEDS: LISINOPRIL 10 MG TABLET GT SCH (09:06)
[2018-12-02] MEDS: DIAZEPAM 10 MG TABLET GT SCH ×2 (09:06→21:35)
[2018-12-02] MEDS: VITAMINS A AND D OINT TP SCH ×2 (09:07→21:35)
[2018-12-02] MEDS: ASCORBIC ACID 500 MG TABLET GT SCH ×2 (09:07→21:35)
[2018-12-02] MEDS: Z GUARD REMEDY PASTE 57 GM TUBE TOP SCH ×2 (09:07→21:35)
[2018-12-02] MEDS: NYSTATIN SUSPENSION 5 ML LIQUID UDC XX SCH ×4 (09:07→21:35)
[2018-12-02] MEDS: HYDROGEN PEROXIDE 3% 118 ML BOTTLE TP SCH ×2 (09:07→21:35)
[2018-12-02] MEDS: LEVETIRACETAM 500 MG/5 ML LIQUID UDC GT SCH ×2 (17:26→21:33)
[2018-12-02] MEDS: VITAL AF 1.2 1,000 ML LIQUID GT PRN (17:55)
[2018-12-02 20:00] VITALS: BP 136/90
[2018-12-02] MEDS: MULTIVIT, IRON, MIN NO. 8, FA TABLET GT SCH (21:34)
[2018-12-03] MEDS: VITAL AF 1.2 1,000 ML LIQUID GT PRN ×2 (05:00→22:30)
[2018-12-03] MEDS: CEFTAZIDIME 1 G in IV DEXTROSE 5% 50 ML IV SCH ×3 (05:56→22:00)
[2018-12-03 07:23] VITALS: BP 122/77
[2018-12-03] MEDS: ASPIRIN 81 MG TAB.CHEW GT SCH (09:18)
[2018-12-03] MEDS: LEVETIRACETAM 500 MG/5 ML LIQUID UDC GT SCH ×2 (09:18→21:28)
[2018-12-03] MEDS: VIMPAT 200 MG GT SCH ×2 (09:19→21:28)
[2018-12-03] MEDS: PHENOBARBITAL 30 MG/7.5 ML LIQUID UDC GT SCH ×2 (09:19→21:28)
[2018-12-03] MEDS: AMLODIPINE 10 MG TABLET GT SCH (09:19)
[2018-12-03] MEDS: METOPROLOL TARTRATE 50 MG TABLET GT SCH ×2 (09:19→21:28)
[2018-12-03] MEDS: DIAZEPAM 10 MG TABLET GT SCH ×2 (09:20→21:28)
[2018-12-03] MEDS: LISINOPRIL 10 MG TABLET GT SCH (09:20)
[2018-12-03] MEDS: HYDROGEN PEROXIDE 3% 118 ML BOTTLE TP SCH ×2 (09:21→21:29)
[2018-12-03] MEDS: VITAMINS A AND D OINT TP SCH ×2 (09:21→21:29)
[2018-12-03] MEDS: Z GUARD REMEDY PASTE 57 GM TUBE TOP SCH ×2 (09:21→21:29)
[2018-12-03] MEDS: ASCORBIC ACID 500 MG TABLET GT SCH ×2 (09:21→21:28)
[2018-12-03] MEDS: NYSTATIN SUSPENSION 5 ML LIQUID UDC XX SCH ×4 (09:22→21:29)
[2018-12-03 20:00] VITALS: BP 132/87
[2018-12-03] MEDS: MULTIVIT, IRON, MIN NO. 8, FA TABLET GT SCH (21:28)
[2018-12-03] MEDS: LEVOFLOXACIN 500 MG TABLET PO SCH (21:29)
[2018-12-04] MEDS: CEFTAZIDIME 1 G in IV DEXTROSE 5% 50 ML IV SCH ×3 (05:48→21:13)
[2018-12-04 07:43] VITALS: BP 122/86
[2018-12-04] MEDS: ASPIRIN 81 MG TAB.CHEW GT SCH (08:52)
[2018-12-04] MEDS: LEVETIRACETAM 500 MG/5 ML LIQUID UDC GT SCH ×2 (08:52→20:38)
[2018-12-04] MEDS: METOPROLOL TARTRATE 50 MG TABLET GT SCH ×2 (08:52→20:38)
[2018-12-04] MEDS: VIMPAT 200 MG GT SCH ×2 (08:52→20:38)
[2018-12-04] MEDS: PHENOBARBITAL 30 MG/7.5 ML LIQUID UDC GT SCH ×2 (08:54→20:38)
[2018-12-04] MEDS: LISINOPRIL 10 MG TABLET GT SCH (08:54)
[2018-12-04] MEDS: AMLODIPINE 10 MG TABLET GT SCH (08:54)
[2018-12-04] MEDS: DIAZEPAM 10 MG TABLET GT SCH ×2 (08:54→20:39)
[2018-12-04] MEDS: ASCORBIC ACID 500 MG TABLET GT SCH ×2 (08:55→20:39)
[2018-12-04] MEDS: Z GUARD REMEDY PASTE 57 GM TUBE TOP SCH ×2 (08:55→20:39)
[2018-12-04] MEDS: NYSTATIN SUSPENSION 5 ML LIQUID UDC XX SCH ×4 (08:55→20:39)
[2018-12-04] MEDS: HYDROGEN PEROXIDE 3% 118 ML BOTTLE TP SCH ×2 (08:55→20:39)
[2018-12-04] MEDS: VITAMINS A AND D OINT TP SCH ×2 (08:55→20:39)
[2018-12-04] MEDS: VITAL AF 1.2 1,000 ML LIQUID GT PRN (16:40)
[2018-12-04 20:00] VITALS: BP 133/84
[2018-12-04] MEDS: MULTIVIT, IRON, MIN NO. 8, FA TABLET GT SCH (20:39)
[2018-12-04] MEDS: LEVOFLOXACIN 500 MG TABLET PO SCH (20:39)
[2018-12-05] MEDS: CEFTAZIDIME 1 G in IV DEXTROSE 5% 50 ML IV SCH ×3 (05:44→21:44)
[2018-12-05 07:44] VITALS: BP 121/83
[2018-12-05] MEDS: ASPIRIN 81 MG TAB.CHEW GT SCH (08:56)
[2018-12-05] MEDS: LEVETIRACETAM 500 MG/5 ML LIQUID UDC GT SCH ×2 (08:56→21:01)
[2018-12-05] MEDS: METOPROLOL TARTRATE 50 MG TABLET GT SCH ×2 (08:57→21:01)
[2018-12-05] MEDS: NYSTATIN SUSPENSION 5 ML LIQUID UDC XX SCH ×4 (08:58→21:09)
[2018-12-05] MEDS: VITAMINS A AND D OINT TP SCH ×2 (08:58→21:08)
[2018-12-05] MEDS: HYDROGEN PEROXIDE 3% 118 ML BOTTLE TP SCH ×2 (08:58→21:08)
[2018-12-05] MEDS: ASCORBIC ACID 500 MG TABLET GT SCH ×2 (08:58→21:08)
[2018-12-05] MEDS: DIAZEPAM 10 MG TABLET GT SCH ×2 (08:58→21:08)
[2018-12-05] MEDS: VIMPAT 200 MG GT SCH ×2 (08:58→21:02)
[2018-12-05] MEDS: LISINOPRIL 10 MG TABLET GT SCH (08:58)
[2018-12-05] MEDS: AMLODIPINE 10 MG TABLET GT SCH (08:58)
[2018-12-05] MEDS: Z GUARD REMEDY PASTE 57 GM TUBE TOP SCH ×2 (08:58→21:08)
[2018-12-05] MEDS: PHENOBARBITAL 30 MG/7.5 ML LIQUID UDC GT SCH ×2 (08:58→21:03)
[2018-12-05 20:00] VITALS: BP 135/88
[2018-12-05] MEDS: LEVOFLOXACIN 500 MG TABLET PO SCH (21:08)
[2018-12-05] MEDS: MULTIVIT, IRON, MIN NO. 8, FA TABLET GT SCH (21:08)
[2018-12-06] MEDS: CEFTAZIDIME 1 G in IV DEXTROSE 5% 50 ML IV SCH ×3 (05:14→21:15)
[2018-12-06 08:00] VITALS: BP 124/93
[2018-12-06] MEDS: ASPIRIN 81 MG TAB.CHEW GT SCH (08:15)
[2018-12-06] MEDS: LEVETIRACETAM 500 MG/5 ML LIQUID UDC GT SCH ×2 (08:15→21:05)
[2018-12-06] MEDS: AMLODIPINE 10 MG TABLET GT SCH (08:17)
[2018-12-06] MEDS: METOPROLOL TARTRATE 50 MG TABLET GT SCH ×2 (08:17→21:00)
[2018-12-06] MEDS: PHENOBARBITAL 30 MG/7.5 ML LIQUID UDC GT SCH ×2 (08:20→21:09)
[2018-12-06] MEDS: LISINOPRIL 10 MG TABLET GT SCH (08:20)
[2018-12-06] MEDS: VIMPAT 200 MG GT SCH ×2 (08:20→21:07)
[2018-12-06] MEDS: Z GUARD REMEDY PASTE 57 GM TUBE TOP SCH ×2 (08:21→21:14)
[2018-12-06] MEDS: ASCORBIC ACID 500 MG TABLET GT SCH ×2 (08:21→21:14)
[2018-12-06] MEDS: DIAZEPAM 10 MG TABLET GT SCH ×2 (08:21→21:14)
[2018-12-06] MEDS: HYDROGEN PEROXIDE 3% 118 ML BOTTLE TP SCH ×2 (08:22→21:14)
[2018-12-06] MEDS: NYSTATIN SUSPENSION 5 ML LIQUID UDC XX SCH ×4 (08:22→21:14)
[2018-12-06] MEDS: VITAMINS A AND D OINT TP SCH ×2 (08:22→21:14)
[2018-12-06] MEDS: VITAL AF 1.2 1,000 ML LIQUID GT PRN (17:19)
[2018-12-06] MEDS: MULTIVIT, IRON, MIN NO. 8, FA TABLET GT SCH (21:13)
[2018-12-06] MEDS: LEVOFLOXACIN 500 MG TABLET PO SCH (21:14)
[2018-12-06 22:00] VITALS: BP 114/69
[2018-12-07] MEDS: CEFTAZIDIME 1 G in IV DEXTROSE 5% 50 ML IV SCH ×3 (05:11→22:04)
[2018-12-07 08:00] VITALS: BP 127/82
[2018-12-07] MEDS: ASPIRIN 81 MG TAB.CHEW GT SCH (08:23)
[2018-12-07] MEDS: LEVETIRACETAM 500 MG/5 ML LIQUID UDC GT SCH ×2 (08:23→20:39)
[2018-12-07] MEDS: METOPROLOL TARTRATE 50 MG TABLET GT SCH ×2 (08:24→20:39)
[2018-12-07] MEDS: AMLODIPINE 10 MG TABLET GT SCH (08:28)
[2018-12-07] MEDS: ASCORBIC ACID 500 MG TABLET GT SCH ×2 (08:32→20:40)
[2018-12-07] MEDS: LISINOPRIL 10 MG TABLET GT SCH (08:32)
[2018-12-07] MEDS: DIAZEPAM 10 MG TABLET GT SCH ×2 (08:32→20:40)
[2018-12-07] MEDS: VIMPAT 200 MG GT SCH ×2 (08:32→20:39)
[2018-12-07] MEDS: PHENOBARBITAL 30 MG/7.5 ML LIQUID UDC GT SCH ×2 (08:32→20:39)
[2018-12-07] MEDS: NYSTATIN SUSPENSION 5 ML LIQUID UDC XX SCH (08:33)
[2018-12-07] MEDS: Z GUARD REMEDY PASTE 57 GM TUBE TOP SCH ×2 (08:33→20:40)
[2018-12-07] MEDS: VITAMINS A AND D OINT TP SCH ×2 (08:33→20:40)
[2018-12-07] MEDS: HYDROGEN PEROXIDE 3% 118 ML BOTTLE TP SCH ×2 (08:33→20:40)
[2018-12-07] MEDS: VITAL AF 1.2 1,000 ML LIQUID GT PRN (10:32)
[2018-12-07] MEDS: MULTIVIT, IRON, MIN NO. 8, FA TABLET GT SCH (20:39)
[2018-12-07] MEDS: LEVOFLOXACIN 500 MG TABLET PO SCH (20:40)
[2018-12-07 22:31] VITALS: BP 145/89
[2018-12-08] MEDS: VITAL AF 1.2 1,000 ML LIQUID GT PRN (01:51)
[2018-12-08] MEDS: CEFTAZIDIME 1 G in IV DEXTROSE 5% 50 ML IV SCH ×2 (05:54→13:19)
[2018-12-08 08:05] VITALS: BP 128/75
[2018-12-08] MEDS: LEVETIRACETAM 500 MG/5 ML LIQUID UDC GT SCH ×2 (08:58→20:58)
[2018-12-08] MEDS: ASPIRIN 81 MG TAB.CHEW GT SCH (08:58)
[2018-12-08] MEDS: METOPROLOL TARTRATE 50 MG TABLET GT SCH ×2 (08:59→20:59)
[2018-12-08] MEDS: VIMPAT 200 MG GT SCH ×2 (08:59→20:59)
[2018-12-08] MEDS: AMLODIPINE 10 MG TABLET GT SCH (08:59)
[2018-12-08] MEDS: PHENOBARBITAL 30 MG/7.5 ML LIQUID UDC GT SCH ×2 (08:59→21:05)
[2018-12-08] MEDS: ASCORBIC ACID 500 MG TABLET GT SCH ×2 (09:01→21:09)
[2018-12-08] MEDS: DIAZEPAM 10 MG TABLET GT SCH ×2 (09:01→21:09)
[2018-12-08] MEDS: LISINOPRIL 10 MG TABLET GT SCH (09:01)
[2018-12-08] MEDS: HYDROGEN PEROXIDE 3% 118 ML BOTTLE TP SCH ×2 (09:02→21:09)
[2018-12-08] MEDS: Z GUARD REMEDY PASTE 57 GM TUBE TOP SCH ×2 (09:02→21:09)
[2018-12-08] MEDS: VITAMINS A AND D OINT TP SCH ×2 (09:02→21:09)
[2018-12-08] MEDS: MULTIVIT, IRON, MIN NO. 8, FA TABLET GT SCH (21:08)
[2018-12-08 22:31] VITALS: BP 155/93
[2018-12-09] MEDS: VITAL AF 1.2 1,000 ML LIQUID GT PRN ×2 (01:00→17:13)
[2018-12-09 08:09] VITALS: BP 120/76
[2018-12-09] MEDS: LEVETIRACETAM 500 MG/5 ML LIQUID UDC GT SCH ×2 (08:20→21:25)
[2018-12-09] MEDS: ASPIRIN 81 MG TAB.CHEW GT SCH (08:20)
[2018-12-09] MEDS: METOPROLOL TARTRATE 50 MG TABLET GT SCH ×2 (08:21→21:26)
[2018-12-09] MEDS: VIMPAT 200 MG GT SCH ×2 (08:21→21:28)
[2018-12-09] MEDS: DIAZEPAM 10 MG TABLET GT SCH ×2 (08:22→21:32)
[2018-12-09] MEDS: AMLODIPINE 10 MG TABLET GT SCH (08:22)
[2018-12-09] MEDS: PHENOBARBITAL 30 MG/7.5 ML LIQUID UDC GT SCH ×2 (08:22→21:29)
[2018-12-09] MEDS: LISINOPRIL 10 MG TABLET GT SCH (08:22)
[2018-12-09] MEDS: ASCORBIC ACID 500 MG TABLET GT SCH ×2 (08:23→21:32)
[2018-12-09] MEDS: Z GUARD REMEDY PASTE 57 GM TUBE TOP SCH ×2 (08:23→21:32)
[2018-12-09] MEDS: VITAMINS A AND D OINT TP SCH ×2 (08:23→21:33)
[2018-12-09] MEDS: HYDROGEN PEROXIDE 3% 118 ML BOTTLE TP SCH ×2 (08:23→21:32)
[2018-12-09] MEDS: MULTIVIT, IRON, MIN NO. 8, FA TABLET GT SCH (21:31)
[2018-12-09 22:54] VITALS: BP 144/86
[2018-12-10] MEDS: ASPIRIN 81 MG TAB.CHEW GT SCH (08:06)
[2018-12-10 08:07] VITALS: BP 148/96
[2018-12-10] MEDS: LEVETIRACETAM 500 MG/5 ML LIQUID UDC GT SCH ×2 (08:08→21:20)
[2018-12-10] MEDS: METOPROLOL TARTRATE 50 MG TABLET GT SCH ×2 (08:09→21:22)
[2018-12-10] MEDS: VIMPAT 200 MG GT SCH ×2 (08:10→21:24)
[2018-12-10] MEDS: AMLODIPINE 10 MG TABLET GT SCH (08:10)
[2018-12-10] MEDS: PHENOBARBITAL 30 MG/7.5 ML LIQUID UDC GT SCH ×2 (08:11→21:28)
[2018-12-10] MEDS: LISINOPRIL 10 MG TABLET GT SCH (08:11)
[2018-12-10] MEDS: DIAZEPAM 10 MG TABLET GT SCH ×2 (08:13→21:28)
[2018-12-10] MEDS: HYDROGEN PEROXIDE 3% 118 ML BOTTLE TP SCH ×2 (08:14→21:29)
[2018-12-10] MEDS: ASCORBIC ACID 500 MG TABLET GT SCH ×2 (08:14→21:29)
[2018-12-10] MEDS: Z GUARD REMEDY PASTE 57 GM TUBE TOP SCH ×2 (08:14→21:29)
[2018-12-10] MEDS: VITAMINS A AND D OINT TP SCH ×2 (08:14→21:29)
[2018-12-10] MEDS: VITAL AF 1.2 1,000 ML LIQUID GT PRN (08:15)
[2018-12-10] MEDS: MULTIVIT, IRON, MIN NO. 8, FA TABLET GT SCH (21:28)
[2018-12-10 22:53] VITALS: BP 142/87
[2018-12-11] MEDS: VITAL AF 1.2 1,000 ML LIQUID GT PRN ×2 (00:10→17:06)
[2018-12-11 08:12] VITALS: BP 122/80
[2018-12-11] MEDS: ASPIRIN 81 MG TAB.CHEW GT SCH (08:12)
[2018-12-11] MEDS: LEVETIRACETAM 500 MG/5 ML LIQUID UDC GT SCH ×2 (08:13→21:25)
[2018-12-11] MEDS: METOPROLOL TARTRATE 50 MG TABLET GT SCH ×2 (08:14→21:26)
[2018-12-11] MEDS: VIMPAT 200 MG GT SCH ×2 (08:14→21:27)
[2018-12-11] MEDS: AMLODIPINE 10 MG TABLET GT SCH (08:15)
[2018-12-11] MEDS: PHENOBARBITAL 30 MG/7.5 ML LIQUID UDC GT SCH ×2 (08:15→21:28)
[2018-12-11] MEDS: LISINOPRIL 10 MG TABLET GT SCH (08:17)
[2018-12-11] MEDS: ASCORBIC ACID 500 MG TABLET GT SCH ×2 (08:19→21:34)
[2018-12-11] MEDS: DIAZEPAM 10 MG TABLET GT SCH ×2 (08:19→21:34)
[2018-12-11] MEDS: HYDROGEN PEROXIDE 3% 118 ML BOTTLE TP SCH ×2 (08:24→21:34)
[2018-12-11] MEDS: Z GUARD REMEDY PASTE 57 GM TUBE TOP SCH ×2 (08:24→21:34)
[2018-12-11] MEDS: VITAMINS A AND D OINT TP SCH ×2 (08:24→21:34)
[2018-12-11] MEDS: MULTIVIT, IRON, MIN NO. 8, FA TABLET GT SCH (21:32)
[2018-12-11 22:03] VITALS: BP 130/89
[2018-12-12 08:01] VITALS: BP 151/98
[2018-12-12] MEDS: ASPIRIN 81 MG TAB.CHEW GT SCH (08:09)
[2018-12-12] MEDS: LEVETIRACETAM 500 MG/5 ML LIQUID UDC GT SCH ×2 (08:10→20:35)
[2018-12-12] MEDS: METOPROLOL TARTRATE 50 MG TABLET GT SCH ×2 (08:12→20:35)
[2018-12-12] MEDS: AMLODIPINE 10 MG TABLET GT SCH (08:13)
[2018-12-12] MEDS: DIAZEPAM 10 MG TABLET GT SCH ×2 (08:13→20:36)
[2018-12-12] MEDS: VIMPAT 200 MG GT SCH ×2 (08:13→20:35)
[2018-12-12] MEDS: PHENOBARBITAL 30 MG/7.5 ML LIQUID UDC GT SCH ×2 (08:14→20:35)
[2018-12-12] MEDS: Z GUARD REMEDY PASTE 57 GM TUBE TOP SCH ×2 (08:16→20:36)
[2018-12-12] MEDS: ASCORBIC ACID 500 MG TABLET GT SCH ×2 (08:16→20:36)
[2018-12-12] MEDS: HYDROGEN PEROXIDE 3% 118 ML BOTTLE TP SCH ×2 (08:16→20:36)
[2018-12-12] MEDS: LISINOPRIL 10 MG TABLET GT SCH (08:16)
[2018-12-12] MEDS: VITAMINS A AND D OINT TP SCH ×2 (08:16→20:36)
[2018-12-12] MEDS: VITAL AF 1.2 1,000 ML LIQUID GT PRN (20:30)
[2018-12-12] MEDS: MULTIVIT, IRON, MIN NO. 8, FA TABLET GT SCH (20:35)
[2018-12-12 23:04] VITALS: BP 139/88
[2018-12-13] MEDS: ASPIRIN 81 MG TAB.CHEW GT SCH (08:07)
[2018-12-13] MEDS: LEVETIRACETAM 500 MG/5 ML LIQUID UDC GT SCH ×2 (08:07→20:33)
[2018-12-13] MEDS: METOPROLOL TARTRATE 50 MG TABLET GT SCH ×2 (08:08→20:33)
[2018-12-13] MEDS: VIMPAT 200 MG GT SCH ×2 (08:08→20:43)
[2018-12-13 08:09] VITALS: BP 145/86
[2018-12-13] MEDS: DIAZEPAM 10 MG TABLET GT SCH ×2 (08:10→20:46)
[2018-12-13] MEDS: Z GUARD REMEDY PASTE 57 GM TUBE TOP SCH ×2 (08:10→20:47)
[2018-12-13] MEDS: HYDROGEN PEROXIDE 3% 118 ML BOTTLE TP SCH ×2 (08:10→20:47)
[2018-12-13] MEDS: LISINOPRIL 10 MG TABLET GT SCH (08:10)
[2018-12-13] MEDS: VITAMINS A AND D OINT TP SCH ×2 (08:10→20:47)
[2018-12-13] MEDS: PHENOBARBITAL 30 MG/7.5 ML LIQUID UDC GT SCH ×2 (08:10→20:46)
[2018-12-13] MEDS: AMLODIPINE 10 MG TABLET GT SCH (08:10)
[2018-12-13] MEDS: ASCORBIC ACID 500 MG TABLET GT SCH ×2 (08:10→20:46)
[2018-12-13] MEDS: VITAL AF 1.2 1,000 ML LIQUID GT PRN (14:27)
[2018-12-13] MEDS: MULTIVIT, IRON, MIN NO. 8, FA TABLET GT SCH (20:46)
[2018-12-13 21:58] VITALS: BP 135/87
[2018-12-14] MEDS: VITAL AF 1.2 1,000 ML LIQUID GT PRN ×2 (05:05→20:45)
[2018-12-14 06:51] VITALS: BP 132/85
[2018-12-14 08:09] VITALS: BP 126/90
[2018-12-14] MEDS: ASPIRIN 81 MG TAB.CHEW GT SCH (08:39)
[2018-12-14] MEDS: LEVETIRACETAM 500 MG/5 ML LIQUID UDC GT SCH ×2 (08:39→21:00)
[2018-12-14] MEDS: METOPROLOL TARTRATE 50 MG TABLET GT SCH ×2 (08:40→21:00)
[2018-12-14] MEDS: VIMPAT 200 MG GT SCH ×2 (08:41→21:00)
[2018-12-14] MEDS: PHENOBARBITAL 30 MG/7.5 ML LIQUID UDC GT SCH ×2 (08:42→21:00)
[2018-12-14] MEDS: AMLODIPINE 10 MG TABLET GT SCH (08:42)
[2018-12-14] MEDS: DIAZEPAM 10 MG TABLET GT SCH ×2 (08:44→21:00)
[2018-12-14] MEDS: LISINOPRIL 10 MG TABLET GT SCH (08:44)
[2018-12-14] MEDS: ASCORBIC ACID 500 MG TABLET GT SCH ×2 (08:45→21:00)
[2018-12-14] MEDS: VITAMINS A AND D OINT TP SCH ×2 (08:45→21:00)
[2018-12-14] MEDS: Z GUARD REMEDY PASTE 57 GM TUBE TOP SCH ×2 (08:45→21:00)
[2018-12-14] MEDS: HYDROGEN PEROXIDE 3% 118 ML BOTTLE TP SCH ×2 (08:45→21:00)
[2018-12-14] MEDS: MULTIVIT, IRON, MIN NO. 8, FA TABLET GT SCH (21:00)
[2018-12-14 22:55] VITALS: BP 130/81
[2018-12-15 07:59] VITALS: BP 106/66
[2018-12-15] MEDS: ASPIRIN 81 MG TAB.CHEW GT SCH (08:21)
[2018-12-15] MEDS: METOPROLOL TARTRATE 50 MG TABLET GT SCH ×2 (08:22→21:12)
[2018-12-15] MEDS: LEVETIRACETAM 500 MG/5 ML LIQUID UDC GT SCH ×2 (08:22→21:09)
[2018-12-15] MEDS: DIAZEPAM 10 MG TABLET GT SCH ×2 (08:23→21:19)
[2018-12-15] MEDS: VIMPAT 200 MG GT SCH ×2 (08:23→21:14)
[2018-12-15] MEDS: AMLODIPINE 10 MG TABLET GT SCH (08:23)
[2018-12-15] MEDS: LISINOPRIL 10 MG TABLET GT SCH (08:23)
[2018-12-15] MEDS: VITAMINS A AND D OINT TP SCH ×2 (08:24→21:22)
[2018-12-15] MEDS: HYDROGEN PEROXIDE 3% 118 ML BOTTLE TP SCH ×2 (08:24→21:22)
[2018-12-15] MEDS: ASCORBIC ACID 500 MG TABLET GT SCH ×2 (08:24→21:19)
[2018-12-15] MEDS: Z GUARD REMEDY PASTE 57 GM TUBE TOP SCH ×2 (08:24→21:22)
[2018-12-15] MEDS ORDERED: PHENOBARBITAL 32.4 MG TABLET GT SCH (09:00)
[2018-12-15] MEDS: VITAL AF 1.2 1,000 ML LIQUID GT PRN (18:01)
[2018-12-15] MEDS: PHENOBARBITAL 30 MG/7.5 ML LIQUID UDC GT SCH (21:14)
[2018-12-15] MEDS: MULTIVIT, IRON, MIN NO. 8, FA TABLET GT SCH (21:19)
[2018-12-15 22:00] VITALS: BP 155/93
[2018-12-16 07:52] VITALS: BP 117/77
[2018-12-16] MEDS: VIMPAT 200 MG GT SCH ×2 (08:12→20:41)
[2018-12-16] MEDS: METOPROLOL TARTRATE 50 MG TABLET GT SCH ×2 (08:12→20:41)
[2018-12-16] MEDS: HYDROGEN PEROXIDE 3% 118 ML BOTTLE TP SCH ×2 (08:12→20:41)
[2018-12-16] MEDS: LISINOPRIL 10 MG TABLET GT SCH (08:12)
[2018-12-16] MEDS: ASPIRIN 81 MG TAB.CHEW GT SCH (08:12)
[2018-12-16] MEDS: DIAZEPAM 10 MG TABLET GT SCH ×2 (08:12→20:41)
[2018-12-16] MEDS: ASCORBIC ACID 500 MG TABLET GT SCH ×2 (08:12→20:41)
[2018-12-16] MEDS: PHENOBARBITAL 30 MG/7.5 ML LIQUID UDC GT SCH ×2 (08:12→20:41)
[2018-12-16] MEDS: AMLODIPINE 10 MG TABLET GT SCH (08:12)
[2018-12-16] MEDS: LEVETIRACETAM 500 MG/5 ML LIQUID UDC GT SCH ×2 (08:12→20:40)
[2018-12-16] MEDS: Z GUARD REMEDY PASTE 57 GM TUBE TOP SCH ×2 (08:12→20:41)
[2018-12-16] MEDS: VITAMINS A AND D OINT TP SCH ×2 (08:12→20:41)
[2018-12-16 20:00] VITALS: BP 154/92
[2018-12-16] MEDS: MULTIVIT, IRON, MIN NO. 8, FA TABLET GT SCH (20:41)
[2018-12-16] MEDS: VITAL AF 1.2 1,000 ML LIQUID GT PRN (22:11)
[2018-12-17] MEDS: HYDROGEN PEROXIDE 3% 118 ML BOTTLE TP SCH ×2 (09:07→20:13)
[2018-12-17] MEDS: VITAMINS A AND D OINT TP SCH ×2 (09:07→20:13)
[2018-12-17] MEDS: LISINOPRIL 10 MG TABLET GT SCH (09:07)
[2018-12-17] MEDS: DIAZEPAM 10 MG TABLET GT SCH ×2 (09:07→20:13)
[2018-12-17] MEDS: Z GUARD REMEDY PASTE 57 GM TUBE TOP SCH ×2 (09:07→20:13)
[2018-12-17] MEDS: VIMPAT 200 MG GT SCH ×2 (09:07→20:12)
[2018-12-17] MEDS: METOPROLOL TARTRATE 50 MG TABLET GT SCH ×2 (09:07→20:12)
[2018-12-17] MEDS: PHENOBARBITAL 30 MG/7.5 ML LIQUID UDC GT SCH ×2 (09:07→20:12)
[2018-12-17] MEDS: AMLODIPINE 10 MG TABLET GT SCH (09:07)
[2018-12-17] MEDS: LEVETIRACETAM 500 MG/5 ML LIQUID UDC GT SCH ×2 (09:07→20:11)
[2018-12-17] MEDS: ASCORBIC ACID 500 MG TABLET GT SCH ×2 (09:07→20:13)
[2018-12-17] MEDS: ASPIRIN 81 MG TAB.CHEW GT SCH (09:07)
[2018-12-17 10:37] VITALS: BP 145/94
[2018-12-17 20:00] VITALS: BP 138/79
[2018-12-17] MEDS: MULTIVIT, IRON, MIN NO. 8, FA TABLET GT SCH (20:12)
[2018-12-18] MEDS: VITAL AF 1.2 1,000 ML LIQUID GT PRN ×2 (05:16→21:00)
[2018-12-18] MEDS: ASPIRIN 81 MG TAB.CHEW GT SCH (08:32)
[2018-12-18] MEDS: METOPROLOL TARTRATE 50 MG TABLET GT SCH ×2 (08:35→20:42)
[2018-12-18] MEDS: LEVETIRACETAM 500 MG/5 ML LIQUID UDC GT SCH ×2 (08:35→20:41)
[2018-12-18] MEDS: VIMPAT 200 MG GT SCH ×2 (08:36→20:45)
[2018-12-18] MEDS: AMLODIPINE 10 MG TABLET GT SCH (08:37)
[2018-12-18] MEDS: PHENOBARBITAL 30 MG/7.5 ML LIQUID UDC GT SCH ×2 (08:40→20:45)
[2018-12-18] MEDS: LISINOPRIL 10 MG TABLET GT SCH (08:40)
[2018-12-18] MEDS: DIAZEPAM 10 MG TABLET GT SCH ×2 (08:40→20:45)
[2018-12-18] MEDS: ASCORBIC ACID 500 MG TABLET GT SCH ×2 (08:41→20:45)
[2018-12-18] MEDS: Z GUARD REMEDY PASTE 57 GM TUBE TOP SCH ×2 (08:41→20:45)
[2018-12-18] MEDS: VITAMINS A AND D OINT TP SCH ×2 (08:41→20:46)
[2018-12-18] MEDS: HYDROGEN PEROXIDE 3% 118 ML BOTTLE TP SCH ×2 (08:41→20:46)
[2018-12-18 14:37] VITALS: BP 103/72
[2018-12-18 20:00] VITALS: BP 139/83
[2018-12-18] MEDS: MULTIVIT, IRON, MIN NO. 8, FA TABLET GT SCH (20:45)
[2018-12-18] MEDS: ACETAMINOPHEN 650 MG/20 ML UDC- SA PATIENTS-PAIN ONLY GT PRN (21:05)
[2018-12-19] MEDS: ASPIRIN 81 MG TAB.CHEW GT SCH (08:02)
[2018-12-19] MEDS: LEVETIRACETAM 500 MG/5 ML LIQUID UDC GT SCH ×2 (08:03→20:51)
[2018-12-19] MEDS: METOPROLOL TARTRATE 50 MG TABLET GT SCH ×2 (08:04→20:52)
[2018-12-19] MEDS: LISINOPRIL 10 MG TABLET GT SCH (08:05)
[2018-12-19] MEDS: AMLODIPINE 10 MG TABLET GT SCH (08:05)
[2018-12-19] MEDS: VITAMINS A AND D OINT TP SCH ×2 (08:06→20:58)
[2018-12-19] MEDS: Z GUARD REMEDY PASTE 57 GM TUBE TOP SCH ×2 (08:06→20:58)
[2018-12-19] MEDS: HYDROGEN PEROXIDE 3% 118 ML BOTTLE TP SCH ×2 (08:06→20:58)
[2018-12-19] MEDS: ASCORBIC ACID 500 MG TABLET GT SCH ×2 (08:06→20:58)
[2018-12-19] MEDS: VIMPAT 200 MG GT SCH ×2 (08:10→20:52)
[2018-12-19] MEDS: DIAZEPAM 10 MG TABLET GT SCH ×2 (08:11→20:58)
[2018-12-19] MEDS: PHENOBARBITAL 30 MG/7.5 ML LIQUID UDC GT SCH ×2 (08:16→20:54)
[2018-12-19 10:24] VITALS: BP 132/92
[2018-12-19] MEDS: VITAL AF 1.2 1,000 ML LIQUID GT PRN (11:33)
[2018-12-19 20:34] VITALS: BP 143/92
[2018-12-19] MEDS: MULTIVIT, IRON, MIN NO. 8, FA TABLET GT SCH (20:58)
[2018-12-20] MEDS: ASPIRIN 81 MG TAB.CHEW GT SCH (08:48)
[2018-12-20] MEDS: LEVETIRACETAM 500 MG/5 ML LIQUID UDC GT SCH ×2 (08:49→20:44)
[2018-12-20] MEDS: METOPROLOL TARTRATE 50 MG TABLET GT SCH ×2 (08:50→20:46)
[2018-12-20] MEDS: VIMPAT 200 MG GT SCH ×2 (08:51→20:49)
[2018-12-20] MEDS: AMLODIPINE 10 MG TABLET GT SCH (08:51)
[2018-12-20] MEDS: LISINOPRIL 10 MG TABLET GT SCH (08:53)
[2018-12-20] MEDS: PHENOBARBITAL 30 MG/7.5 ML LIQUID UDC GT SCH ×2 (08:53→20:49)
[2018-12-20] MEDS: DIAZEPAM 10 MG TABLET GT SCH ×2 (08:54→20:54)
[2018-12-20] MEDS: Z GUARD REMEDY PASTE 57 GM TUBE TOP SCH ×2 (08:54→20:54)
[2018-12-20] MEDS: VITAMINS A AND D OINT TP SCH ×2 (08:54→20:54)
[2018-12-20] MEDS: ASCORBIC ACID 500 MG TABLET GT SCH ×2 (08:54→20:54)
[2018-12-20] MEDS: HYDROGEN PEROXIDE 3% 118 ML BOTTLE TP SCH ×2 (08:54→20:54)
[2018-12-20 11:21] VITALS: BP 156/88
[2018-12-20] MEDS: MULTIVIT, IRON, MIN NO. 8, FA TABLET GT SCH (20:53)
[2018-12-20 21:22] VITALS: BP 139/85
[2018-12-20] MEDS: VITAL AF 1.2 1,000 ML LIQUID GT PRN (22:26)
[2018-12-21 08:30] VITALS: BP 144/91
[2018-12-21] MEDS: ASPIRIN 81 MG TAB.CHEW GT SCH (08:52)
[2018-12-21] MEDS: LEVETIRACETAM 500 MG/5 ML LIQUID UDC GT SCH ×2 (08:53→21:39)
[2018-12-21] MEDS: METOPROLOL TARTRATE 50 MG TABLET GT SCH ×2 (08:53→21:39)
[2018-12-21] MEDS: PHENOBARBITAL 30 MG/7.5 ML LIQUID UDC GT SCH ×2 (08:54→21:46)
[2018-12-21] MEDS: AMLODIPINE 10 MG TABLET GT SCH (08:54)
[2018-12-21] MEDS: VIMPAT 200 MG GT SCH ×2 (08:54→21:39)
[2018-12-21] MEDS: LISINOPRIL 10 MG TABLET GT SCH (08:55)
[2018-12-21] MEDS: ASCORBIC ACID 500 MG TABLET GT SCH ×2 (08:55→21:40)
[2018-12-21] MEDS: DIAZEPAM 10 MG TABLET GT SCH ×2 (08:55→21:40)
[2018-12-21] MEDS: HYDROGEN PEROXIDE 3% 118 ML BOTTLE TP SCH ×2 (08:56→21:41)
[2018-12-21] MEDS: VITAMINS A AND D OINT TP SCH ×2 (08:56→21:41)
[2018-12-21] MEDS: Z GUARD REMEDY PASTE 57 GM TUBE TOP SCH ×2 (08:56→21:41)
[2018-12-21] MEDS: VITAL AF 1.2 1,000 ML LIQUID GT PRN (14:59)
[2018-12-21 21:37] VITALS: BP 122/78
[2018-12-21] MEDS: MULTIVIT, IRON, MIN NO. 8, FA TABLET GT SCH (21:40)
[2018-12-22] MEDS: VITAL AF 1.2 1,000 ML LIQUID GT PRN ×2 (05:19→23:00)
[2018-12-22 07:54] LABS: BASOPHILS % (AUTO) 0.5 % (0.0-2.0); EOSINOPHILS # (AUTO) 0.1 K/uL (0.0-0.7); EOSINOPHILS % (AUTO) 2.3 % (0.0-7.0); HEMATOCRIT 34.9 % (31.2-41.9); HEMOGLOBIN 11.9 g/dL (10.9-14.3); LYMPHOCYTES # (AUTO) 0.9 K/uL (20.0-40.0); LYMPHOCYTES % (AUTO) 25.4 % (20.5-51.5); MEAN CORPUSCULAR HGB CONC 34 g/dL (32.3-35.6); MEAN CORPUSCULAR VOLUME 87.6 fL (75.5-95.3); MONOCYTES # (AUTO) 0.3 K/uL (2.0-10.0); MONOCYTES % (AUTO) 8.4 % (0.0-11.0); NEUTROPHILS # (AUTO) 2.3 K/uL (1.8-8.9); NEUTROPHILS % (AUTO) 63.4 % (38.5-71.5); PLATELET COUNT (AUTO) 138 K/uL (179-408); RED BLOOD CELL COUNT(AUTO) 3.98 MIL/uL (3.63-4.92); WHITE BLOOD COUNT (AUTO) 3.6 K/uL (3.8-11.8)
[2018-12-22 07:56] LABS: ALANINE AMINOTRANSFERASE 43 U/L (14-59); ALKALINE PHOSPHATASE 79 U/L (50-136); ASPARTATE AMINOTRANSFERASE 17 U/L (15-37); BILIRUBIN,TOTAL 0.2 mg/dL (0.2-1.0); CARBON DIOXIDE 31 mmol/L (21-32); CHLORIDE 111 mmol/L (98-107); CREATININE 0.3 mg/dL (0.6-1.3); GLUCOSE 108 mg/dL (74-106); MAGNESIUM 1.9 mg/dL (1.8-2.4); PHOSPHOROUS 3.9 mg/dL (2.5-4.9); POTASSIUM 3.9 mmol/L (3.5-5.1); TOTAL PROTEIN, SERUM 7.1 g/dL (6.4-8.2); UREA NITROGEN, BLOOD 30 mg/dL (7-18)
[2018-12-22 08:13] VITALS: BP 135/85
[2018-12-22] MEDS: ASPIRIN 81 MG TAB.CHEW GT SCH (08:46)
[2018-12-22] MEDS: METOPROLOL TARTRATE 50 MG TABLET GT SCH ×2 (08:47→20:30)
[2018-12-22] MEDS: LEVETIRACETAM 500 MG/5 ML LIQUID UDC GT SCH ×2 (08:47→20:30)
[2018-12-22] MEDS: PHENOBARBITAL 30 MG/7.5 ML LIQUID UDC GT SCH ×2 (08:48→20:32)
[2018-12-22] MEDS: VIMPAT 200 MG GT SCH ×2 (08:48→20:30)
[2018-12-22] MEDS: AMLODIPINE 10 MG TABLET GT SCH (08:48)
[2018-12-22] MEDS: LISINOPRIL 10 MG TABLET GT SCH (08:51)
[2018-12-22] MEDS: DIAZEPAM 10 MG TABLET GT SCH ×2 (08:51→20:32)
[2018-12-22] MEDS: ASCORBIC ACID 500 MG TABLET GT SCH ×2 (08:51→20:32)
[2018-12-22] MEDS: VITAMINS A AND D OINT TP SCH ×2 (08:52→20:33)
[2018-12-22] MEDS: HYDROGEN PEROXIDE 3% 118 ML BOTTLE TP SCH ×2 (08:52→20:32)
[2018-12-22] MEDS: Z GUARD REMEDY PASTE 57 GM TUBE TOP SCH ×2 (08:52→20:32)
[2018-12-22 20:09] VITALS: BP 122/83
[2018-12-22] MEDS: MULTIVIT, IRON, MIN NO. 8, FA TABLET GT SCH (20:32)
[2018-12-23 08:11] VITALS: BP 107/70
[2018-12-23] MEDS: ASPIRIN 81 MG TAB.CHEW GT SCH (08:42)
[2018-12-23] MEDS: LEVETIRACETAM 500 MG/5 ML LIQUID UDC GT SCH ×2 (08:43→20:30)
[2018-12-23] MEDS: METOPROLOL TARTRATE 50 MG TABLET GT SCH ×2 (08:45→20:30)
[2018-12-23] MEDS: VIMPAT 200 MG GT SCH ×2 (08:47→20:36)
[2018-12-23] MEDS: AMLODIPINE 10 MG TABLET GT SCH (08:48)
[2018-12-23] MEDS: LISINOPRIL 10 MG TABLET GT SCH (08:49)
[2018-12-23] MEDS: DIAZEPAM 10 MG TABLET GT SCH ×2 (09:04→20:36)
[2018-12-23] MEDS: HYDROGEN PEROXIDE 3% 118 ML BOTTLE TP SCH ×2 (09:06→20:37)
[2018-12-23] MEDS: VITAMINS A AND D OINT TP SCH ×2 (09:06→20:37)
[2018-12-23] MEDS: ASCORBIC ACID 500 MG TABLET GT SCH ×2 (09:06→20:36)
[2018-12-23] MEDS: Z GUARD REMEDY PASTE 57 GM TUBE TOP SCH ×2 (09:06→20:37)
[2018-12-23] MEDS: PHENOBARBITAL 30 MG/7.5 ML LIQUID UDC GT SCH ×2 (09:25→21:47)
[2018-12-23] MEDS: VITAL AF 1.2 1,000 ML LIQUID GT PRN (17:43)
[2018-12-23 20:04] VITALS: BP 105/89
[2018-12-23] MEDS: MULTIVIT, IRON, MIN NO. 8, FA TABLET GT SCH (20:36)
[2018-12-23] MEDS: ACETAMINOPHEN 650 MG/20 ML UDC- SA PATIENTS-PAIN ONLY GT PRN (21:00)
[2018-12-24] MEDS: VITAL AF 1.2 1,000 ML LIQUID GT PRN ×2 (05:00→21:00)
[2018-12-24 08:11] VITALS: BP 134/87
[2018-12-24] MEDS: LEVETIRACETAM 500 MG/5 ML LIQUID UDC GT SCH ×2 (08:57→20:57)
[2018-12-24] MEDS: VIMPAT 200 MG GT SCH ×2 (08:57→20:57)
[2018-12-24] MEDS: ASPIRIN 81 MG TAB.CHEW GT SCH (08:57)
[2018-12-24] MEDS: LISINOPRIL 10 MG TABLET GT SCH (08:58)
[2018-12-24] MEDS: PHENOBARBITAL 30 MG/7.5 ML LIQUID UDC GT SCH ×2 (08:58→20:57)
[2018-12-24] MEDS: AMLODIPINE 10 MG TABLET GT SCH (08:58)
[2018-12-24] MEDS: METOPROLOL TARTRATE 50 MG TABLET GT SCH ×2 (08:58→20:57)
[2018-12-24] MEDS: ASCORBIC ACID 500 MG TABLET GT SCH ×2 (08:59→20:57)
[2018-12-24] MEDS: Z GUARD REMEDY PASTE 57 GM TUBE TOP SCH ×2 (08:59→20:57)
[2018-12-24] MEDS: HYDROGEN PEROXIDE 3% 118 ML BOTTLE TP SCH ×2 (08:59→20:57)
[2018-12-24] MEDS: DIAZEPAM 10 MG TABLET GT SCH ×2 (08:59→20:57)
[2018-12-24] MEDS: VITAMINS A AND D OINT TP SCH ×2 (08:59→20:57)
[2018-12-24 20:15] VITALS: BP 127/80
[2018-12-24] MEDS: MULTIVIT, IRON, MIN NO. 8, FA TABLET GT SCH (20:57)
[2018-12-25 07:33] LABS: BASOPHILS % (AUTO) 0.4 % (0.0-2.0); EOSINOPHILS # (AUTO) 0.1 K/uL (0.0-0.7); EOSINOPHILS % (AUTO) 2.8 % (0.0-7.0); HEMATOCRIT 31.4 % (31.2-41.9); HEMOGLOBIN 10.9 g/dL (10.9-14.3); LYMPHOCYTES # (AUTO) 0.8 K/uL (20.0-40.0); LYMPHOCYTES % (AUTO) 23.2 % (20.5-51.5); MEAN CORPUSCULAR HEMOGLOBIN 30.4 uug (24.7-32.8); MEAN CORPUSCULAR HGB CONC 35 g/dL (32.3-35.6); MEAN CORPUSCULAR VOLUME 87.6 fL (75.5-95.3); MONOCYTES # (AUTO) 0.4 K/uL (2.0-10.0); MONOCYTES % (AUTO) 11.7 % (0.0-11.0); NEUTROPHILS # (AUTO) 2.2 K/uL (1.8-8.9); NEUTROPHILS % (AUTO) 61.9 % (38.5-71.5); PLATELET COUNT (AUTO) 132 K/uL (179-408); RED BLOOD CELL COUNT(AUTO) 3.58 MIL/uL (3.63-4.92); WHITE BLOOD COUNT (AUTO) 3.6 K/uL (3.8-11.8)
[2018-12-25 08:16] LABS: CARBON DIOXIDE 30 mmol/L (21-32); CHLORIDE 108 mmol/L (98-107); CREATININE 0.3 mg/dL (0.6-1.3); GLUCOSE 106 mg/dL (74-106); POTASSIUM 4.1 mmol/L (3.5-5.1); UREA NITROGEN, BLOOD 28 mg/dL (7-18)
[2018-12-25] MEDS: AMLODIPINE 10 MG TABLET GT SCH (09:00)
[2018-12-25] MEDS: METOPROLOL TARTRATE 50 MG TABLET GT SCH ×2 (09:00→21:17)
[2018-12-25] MEDS: LISINOPRIL 10 MG TABLET GT SCH (09:00)
[2018-12-25] MEDS: LEVETIRACETAM 500 MG/5 ML LIQUID UDC GT SCH ×2 (09:05→21:17)
[2018-12-25] MEDS: ASPIRIN 81 MG TAB.CHEW GT SCH (09:05)
[2018-12-25] MEDS: VIMPAT 200 MG GT SCH ×2 (09:06→21:18)
[2018-12-25] MEDS: VITAMINS A AND D OINT TP SCH ×2 (09:06→21:27)
[2018-12-25] MEDS: HYDROGEN PEROXIDE 3% 118 ML BOTTLE TP SCH ×2 (09:06→21:27)
[2018-12-25] MEDS: ASCORBIC ACID 500 MG TABLET GT SCH ×2 (09:06→21:27)
[2018-12-25] MEDS: PHENOBARBITAL 30 MG/7.5 ML LIQUID UDC GT SCH ×2 (09:06→21:26)
[2018-12-25] MEDS: Z GUARD REMEDY PASTE 57 GM TUBE TOP SCH ×2 (09:06→21:27)
[2018-12-25] MEDS: DIAZEPAM 10 MG TABLET GT SCH ×2 (09:06→21:27)
[2018-12-25 11:28] VITALS: BP 100/67
[2018-12-25 19:42] VITALS: BP 141/92
[2018-12-25] MEDS: MULTIVIT, IRON, MIN NO. 8, FA TABLET GT SCH (21:22)
[2018-12-26] MEDS: LEVETIRACETAM 500 MG/5 ML LIQUID UDC GT SCH ×2 (08:00→21:03)
[2018-12-26] MEDS: ASPIRIN 81 MG TAB.CHEW GT SCH (08:00)
[2018-12-26] MEDS: HYDROGEN PEROXIDE 3% 118 ML BOTTLE TP SCH ×2 (08:01→21:22)
[2018-12-26] MEDS: METOPROLOL TARTRATE 50 MG TABLET GT SCH ×2 (08:01→21:06)
[2018-12-26] MEDS: ASCORBIC ACID 500 MG TABLET GT SCH ×2 (08:01→21:21)
[2018-12-26] MEDS: PHENOBARBITAL 30 MG/7.5 ML LIQUID UDC GT SCH ×2 (08:01→21:20)
[2018-12-26] MEDS: DIAZEPAM 10 MG TABLET GT SCH ×2 (08:01→21:21)
[2018-12-26] MEDS: Z GUARD REMEDY PASTE 57 GM TUBE TOP SCH ×2 (08:01→21:21)
[2018-12-26] MEDS: VIMPAT 200 MG GT SCH ×2 (08:01→21:07)
[2018-12-26] MEDS: AMLODIPINE 10 MG TABLET GT SCH (08:01)
[2018-12-26] MEDS: LISINOPRIL 10 MG TABLET GT SCH (08:01)
[2018-12-26] MEDS: VITAMINS A AND D OINT TP SCH ×2 (08:01→21:23)
[2018-12-26 10:48] VITALS: BP 131/91
[2018-12-26] MEDS: MULTIVIT, IRON, MIN NO. 8, FA TABLET GT SCH (21:21)
[2018-12-26] MEDS: VITAL AF 1.2 1,000 ML LIQUID GT PRN (21:40)
[2018-12-26 22:00] VITALS: BP 127/84
[2018-12-27 08:00] VITALS: BP 129/67
[2018-12-27] MEDS: LISINOPRIL 10 MG TABLET GT SCH (08:25)
[2018-12-27] MEDS: VITAMINS A AND D OINT TP SCH ×2 (08:25→21:27)
[2018-12-27] MEDS: ASCORBIC ACID 500 MG TABLET GT SCH ×2 (08:25→21:24)
[2018-12-27] MEDS: DIAZEPAM 10 MG TABLET GT SCH ×2 (08:25→21:14)
[2018-12-27] MEDS: AMLODIPINE 10 MG TABLET GT SCH (08:25)
[2018-12-27] MEDS: ASPIRIN 81 MG TAB.CHEW GT SCH (08:25)
[2018-12-27] MEDS: Z GUARD REMEDY PASTE 57 GM TUBE TOP SCH ×2 (08:25→21:26)
[2018-12-27] MEDS: LEVETIRACETAM 500 MG/5 ML LIQUID UDC GT SCH ×2 (08:25→21:12)
[2018-12-27] MEDS: PHENOBARBITAL 30 MG/7.5 ML LIQUID UDC GT SCH ×2 (08:25→21:23)
[2018-12-27] MEDS: HYDROGEN PEROXIDE 3% 118 ML BOTTLE TP SCH ×2 (08:25→21:26)
[2018-12-27] MEDS: VIMPAT 200 MG GT SCH ×2 (08:25→21:14)
[2018-12-27] MEDS: METOPROLOL TARTRATE 50 MG TABLET GT SCH ×2 (08:25→21:14)
[2018-12-27] MEDS: VITAL AF 1.2 1,000 ML LIQUID GT PRN (14:34)
[2018-12-27] MEDS: MULTIVIT, IRON, MIN NO. 8, FA TABLET GT SCH (21:23)
[2018-12-27 22:00] VITALS: BP 133/82
[2018-12-28 08:05] VITALS: BP 132/83
[2018-12-28] MEDS: ASPIRIN 81 MG TAB.CHEW GT SCH (08:26)
[2018-12-28] MEDS: LEVETIRACETAM 500 MG/5 ML LIQUID UDC GT SCH ×2 (08:26→21:50)
[2018-12-28] MEDS: METOPROLOL TARTRATE 50 MG TABLET GT SCH ×2 (08:26→21:51)
[2018-12-28] MEDS: VIMPAT 200 MG GT SCH ×2 (08:26→21:51)
[2018-12-28] MEDS: VITAMINS A AND D OINT TP SCH ×2 (08:27→21:51)
[2018-12-28] MEDS: HYDROGEN PEROXIDE 3% 118 ML BOTTLE TP SCH ×2 (08:27→21:51)
[2018-12-28] MEDS: AMLODIPINE 10 MG TABLET GT SCH (08:27)
[2018-12-28] MEDS: ASCORBIC ACID 500 MG TABLET GT SCH ×2 (08:27→21:51)
[2018-12-28] MEDS: PHENOBARBITAL 30 MG/7.5 ML LIQUID UDC GT SCH ×2 (08:27→21:51)
[2018-12-28] MEDS: DIAZEPAM 10 MG TABLET GT SCH ×2 (08:27→21:51)
[2018-12-28] MEDS: LISINOPRIL 10 MG TABLET GT SCH (08:27)
[2018-12-28] MEDS: Z GUARD REMEDY PASTE 57 GM TUBE TOP SCH ×2 (08:27→21:51)
[2018-12-28] MEDS: MULTIVIT, IRON, MIN NO. 8, FA TABLET GT SCH (21:51)
[2018-12-28 22:38] VITALS: BP 132/84
[2018-12-29 08:00] VITALS: BP 109/68
[2018-12-29] MEDS: PHENOBARBITAL 30 MG/7.5 ML LIQUID UDC GT SCH ×2 (09:00→21:00)
[2018-12-29] MEDS: METOPROLOL TARTRATE 50 MG TABLET GT SCH ×2 (09:00→21:30)
[2018-12-29] MEDS: AMLODIPINE 10 MG TABLET GT SCH (09:00)
[2018-12-29] MEDS: LISINOPRIL 10 MG TABLET GT SCH (09:00)
[2018-12-29 09:16] VITALS: BP 109/68
[2018-12-29] MEDS: LEVETIRACETAM 500 MG/5 ML LIQUID UDC GT SCH ×2 (09:35→21:29)
[2018-12-29] MEDS: ASPIRIN 81 MG TAB.CHEW GT SCH (09:35)
[2018-12-29] MEDS: VIMPAT 200 MG GT SCH ×2 (09:36→21:30)
[2018-12-29] MEDS: VITAMINS A AND D OINT TP SCH ×2 (09:39→21:37)
[2018-12-29] MEDS: ASCORBIC ACID 500 MG TABLET GT SCH ×2 (09:39→21:37)
[2018-12-29] MEDS: HYDROGEN PEROXIDE 3% 118 ML BOTTLE TP SCH ×2 (09:39→21:37)
[2018-12-29] MEDS: DIAZEPAM 10 MG TABLET GT SCH ×2 (09:39→21:36)
[2018-12-29] MEDS: Z GUARD REMEDY PASTE 57 GM TUBE TOP SCH ×2 (09:39→21:37)
[2018-12-29] MEDS ORDERED: PHENOBARBITAL 32.4 MG TABLET PO ONE (10:00)
[2018-12-29] MEDS: MULTIVIT, IRON, MIN NO. 8, FA TABLET GT SCH (21:36)
[2018-12-29 22:03] VITALS: BP 133/84
[2018-12-30] MEDS: VITAL AF 1.2 1,000 ML LIQUID GT PRN ×2 (04:34→22:14)
[2018-12-30 07:28] LABS: BASOPHILS % (AUTO) 0.3 % (0.0-2.0); EOSINOPHILS # (AUTO) 0.1 K/uL (0.0-0.7); EOSINOPHILS % (AUTO) 2.6 % (0.0-7.0); HEMOGLOBIN 10.8 g/dL (10.9-14.3); LYMPHOCYTES # (AUTO) 0.9 K/uL (20.0-40.0); LYMPHOCYTES % (AUTO) 17.8 % (20.5-51.5); MEAN CORPUSCULAR HEMOGLOBIN 30.1 uug (24.7-32.8); MEAN CORPUSCULAR HGB CONC 35 g/dL (32.3-35.6); MEAN CORPUSCULAR VOLUME 86.6 fL (75.5-95.3); MONOCYTES # (AUTO) 0.4 K/uL (2.0-10.0); MONOCYTES % (AUTO) 7.1 % (0.0-11.0); NEUTROPHILS # (AUTO) 3.8 K/uL (1.8-8.9); NEUTROPHILS % (AUTO) 72.2 % (38.5-71.5); PLATELET COUNT (AUTO) 170 K/uL (179-408); RED BLOOD CELL COUNT(AUTO) 3.58 MIL/uL (3.63-4.92); WHITE BLOOD COUNT (AUTO) 5.3 K/uL (3.8-11.8)
[2018-12-30 07:29] LABS: CARBON DIOXIDE 33 mmol/L (21-32); CHLORIDE 103 mmol/L (98-107); CREATININE 0.3 mg/dL (0.6-1.3); GLUCOSE 108 mg/dL (74-106); POTASSIUM 4.1 mmol/L (3.5-5.1); UREA NITROGEN, BLOOD 20 mg/dL (7-18)
[2018-12-30 08:15] VITALS: BP 110/74
[2018-12-30] MEDS: ASPIRIN 81 MG TAB.CHEW GT SCH (08:35)
[2018-12-30] MEDS: AMLODIPINE 10 MG TABLET GT SCH (08:36)
[2018-12-30] MEDS: LEVETIRACETAM 500 MG/5 ML LIQUID UDC GT SCH ×2 (08:36→21:40)
[2018-12-30] MEDS: METOPROLOL TARTRATE 50 MG TABLET GT SCH ×2 (08:36→21:41)
[2018-12-30] MEDS: VIMPAT 200 MG GT SCH ×2 (08:37→21:43)
[2018-12-30] MEDS: LISINOPRIL 10 MG TABLET GT SCH (08:37)
[2018-12-30] MEDS: PHENOBARBITAL 30 MG/7.5 ML LIQUID UDC GT SCH ×2 (08:38→21:46)
[2018-12-30] MEDS: Z GUARD REMEDY PASTE 57 GM TUBE TOP SCH ×2 (08:39→21:47)
[2018-12-30] MEDS: DIAZEPAM 10 MG TABLET GT SCH ×2 (08:39→21:54)
[2018-12-30] MEDS: HYDROGEN PEROXIDE 3% 118 ML BOTTLE TP SCH ×2 (08:39→21:47)
[2018-12-30] MEDS: ASCORBIC ACID 500 MG TABLET GT SCH ×2 (08:39→21:47)
[2018-12-30] MEDS: VITAMINS A AND D OINT TP SCH ×2 (08:40→21:47)
[2018-12-30 20:00] VITALS: BP 142/88
[2018-12-30] MEDS: MULTIVIT, IRON, MIN NO. 8, FA TABLET GT SCH (21:46)
[2018-12-31] MEDS: ASPIRIN 81 MG TAB.CHEW GT SCH (09:52)
[2018-12-31] MEDS: LEVETIRACETAM 500 MG/5 ML LIQUID UDC GT SCH ×2 (09:52→21:00)
[2018-12-31] MEDS: VIMPAT 200 MG GT SCH ×2 (09:53→21:00)
[2018-12-31] MEDS: AMLODIPINE 10 MG TABLET GT SCH (09:54)
[2018-12-31] MEDS: METOPROLOL TARTRATE 50 MG TABLET GT SCH ×2 (09:54→21:00)
[2018-12-31] MEDS: DIAZEPAM 10 MG TABLET GT SCH ×2 (09:55→21:00)
[2018-12-31] MEDS: ASCORBIC ACID 500 MG TABLET GT SCH ×2 (09:55→21:00)
[2018-12-31] MEDS: Z GUARD REMEDY PASTE 57 GM TUBE TOP SCH ×2 (09:55→21:00)
[2018-12-31] MEDS: PHENOBARBITAL 30 MG/7.5 ML LIQUID UDC GT SCH ×2 (09:55→21:00)
[2018-12-31] MEDS: LISINOPRIL 10 MG TABLET GT SCH (09:55)
[2018-12-31] MEDS: VITAMINS A AND D OINT TP SCH ×2 (09:56→21:00)
[2018-12-31] MEDS: HYDROGEN PEROXIDE 3% 118 ML BOTTLE TP SCH ×2 (09:56→21:00)
[2018-12-31 11:22] VITALS: BP 134/84
[2018-12-31] MEDS: VITAL AF 1.2 1,000 ML LIQUID GT PRN (14:01)
[2018-12-31 19:51] VITALS: BP 123/85
[2018-12-31 21:00] VITALS: BP 122/77
[2018-12-31] MEDS: MULTIVIT, IRON, MIN NO. 8, FA TABLET GT SCH (21:00)
[2019-01-01 07:53] VITALS: BP 122/77
[2019-01-01] MEDS: ASPIRIN 81 MG TAB.CHEW GT SCH (08:55)
[2019-01-01] MEDS: LEVETIRACETAM 500 MG/5 ML LIQUID UDC GT SCH ×2 (08:55→21:15)
[2019-01-01] MEDS: VIMPAT 200 MG GT SCH ×2 (08:56→21:17)
[2019-01-01] MEDS: METOPROLOL TARTRATE 50 MG TABLET GT SCH ×2 (08:56→21:17)
[2019-01-01] MEDS: DIAZEPAM 10 MG TABLET GT SCH ×2 (08:57→21:20)
[2019-01-01] MEDS: LISINOPRIL 10 MG TABLET GT SCH (08:57)
[2019-01-01] MEDS: ASCORBIC ACID 500 MG TABLET GT SCH ×2 (08:57→21:20)
[2019-01-01] MEDS: Z GUARD REMEDY PASTE 57 GM TUBE TOP SCH ×2 (08:57→21:21)
[2019-01-01] MEDS: PHENOBARBITAL 30 MG/7.5 ML LIQUID UDC GT SCH ×2 (08:57→21:17)
[2019-01-01] MEDS: AMLODIPINE 10 MG TABLET GT SCH (08:57)
[2019-01-01] MEDS: VITAMINS A AND D OINT TP SCH ×2 (08:58→21:21)
[2019-01-01] MEDS: HYDROGEN PEROXIDE 3% 118 ML BOTTLE TP SCH ×2 (08:58→21:21)
[2019-01-01] MEDS: VITAL AF 1.2 1,000 ML LIQUID GT PRN (18:08)
[2019-01-01 20:08] VITALS: BP 143/92
[2019-01-01] MEDS: MULTIVIT, IRON, MIN NO. 8, FA TABLET GT SCH (21:19)
[2019-01-01] MEDS: COD LIVER OIL/ZINC OXIDE OINT 113 GM TUBE TOP SCH ×2 (22:45)
[2019-01-02 07:43] VITALS: BP 98/63
[2019-01-02] MEDS: LEVETIRACETAM 500 MG/5 ML LIQUID UDC GT SCH ×2 (08:46→21:00)
[2019-01-02] MEDS: ASPIRIN 81 MG TAB.CHEW GT SCH (08:46)
[2019-01-02] MEDS: VIMPAT 200 MG GT SCH ×2 (08:47→21:00)
[2019-01-02] MEDS: METOPROLOL TARTRATE 50 MG TABLET GT SCH ×2 (08:47→21:00)
[2019-01-02] MEDS: AMLODIPINE 10 MG TABLET GT SCH (08:47)
[2019-01-02] MEDS: LISINOPRIL 10 MG TABLET GT SCH (08:48)
[2019-01-02] MEDS: PHENOBARBITAL 30 MG/7.5 ML LIQUID UDC GT SCH ×2 (08:48→21:00)
[2019-01-02] MEDS: DIAZEPAM 10 MG TABLET GT SCH ×2 (08:48→21:00)
[2019-01-02] MEDS: Z GUARD REMEDY PASTE 57 GM TUBE TOP SCH ×2 (08:49→21:00)
[2019-01-02] MEDS: COD LIVER OIL/ZINC OXIDE OINT 113 GM TUBE TOP SCH ×4 (08:49→21:00)
[2019-01-02] MEDS: HYDROGEN PEROXIDE 3% 118 ML BOTTLE TP SCH ×2 (08:49→21:00)
[2019-01-02] MEDS: ASCORBIC ACID 500 MG TABLET GT SCH ×2 (08:49→21:00)
[2019-01-02] MEDS: VITAMINS A AND D OINT TP SCH ×2 (08:49→21:00)
[2019-01-02 20:45] VITALS: BP 146/91
[2019-01-02] MEDS: MULTIVIT, IRON, MIN NO. 8, FA TABLET GT SCH (21:00)
[2019-01-03] MEDS: VITAL AF 1.2 1,000 ML LIQUID GT PRN ×2 (02:08→16:23)
[2019-01-03 08:00] VITALS: BP 108/69
[2019-01-03] MEDS: METOPROLOL TARTRATE 50 MG TABLET GT SCH ×2 (08:21→21:00)
[2019-01-03] MEDS: LEVETIRACETAM 500 MG/5 ML LIQUID UDC GT SCH ×2 (08:21→21:00)
[2019-01-03] MEDS: ASPIRIN 81 MG TAB.CHEW GT SCH (08:21)
[2019-01-03] MEDS: COD LIVER OIL/ZINC OXIDE OINT 113 GM TUBE TOP SCH ×4 (08:22→21:00)
[2019-01-03] MEDS: HYDROGEN PEROXIDE 3% 118 ML BOTTLE TP SCH ×2 (08:22→21:00)
[2019-01-03] MEDS: DIAZEPAM 10 MG TABLET GT SCH ×2 (08:22→21:00)
[2019-01-03] MEDS: PHENOBARBITAL 30 MG/7.5 ML LIQUID UDC GT SCH ×2 (08:22→21:00)
[2019-01-03] MEDS: LISINOPRIL 10 MG TABLET GT SCH (08:22)
[2019-01-03] MEDS: VIMPAT 200 MG GT SCH ×2 (08:22→21:00)
[2019-01-03] MEDS: AMLODIPINE 10 MG TABLET GT SCH (08:22)
[2019-01-03] MEDS: VITAMINS A AND D OINT TP SCH ×2 (08:22→21:00)
[2019-01-03] MEDS: ASCORBIC ACID 500 MG TABLET GT SCH ×2 (08:22→21:00)
[2019-01-03] MEDS: Z GUARD REMEDY PASTE 57 GM TUBE TOP SCH ×2 (08:22→21:00)
[2019-01-03 20:47] VITALS: BP_SYST 115; BP_SYST 155; BP_DIAS 65; BP_DIAS 95
[2019-01-03] MEDS: MULTIVIT, IRON, MIN NO. 8, FA TABLET GT SCH (21:00)
[2019-01-04 08:00] VITALS: BP 133/84
[2019-01-04] MEDS: COD LIVER OIL/ZINC OXIDE OINT 113 GM TUBE TOP SCH ×4 (09:30→21:48)
[2019-01-04] MEDS: Z GUARD REMEDY PASTE 57 GM TUBE TOP SCH ×2 (09:30→21:49)
[2019-01-04] MEDS: PHENOBARBITAL 30 MG/7.5 ML LIQUID UDC GT SCH ×2 (09:30→21:48)
[2019-01-04] MEDS: METOPROLOL TARTRATE 50 MG TABLET GT SCH ×2 (09:30→21:47)
[2019-01-04] MEDS: LISINOPRIL 10 MG TABLET GT SCH (09:30)
[2019-01-04] MEDS: AMLODIPINE 10 MG TABLET GT SCH (09:30)
[2019-01-04] MEDS: ASCORBIC ACID 500 MG TABLET GT SCH ×2 (09:30→21:48)
[2019-01-04] MEDS: ASPIRIN 81 MG TAB.CHEW GT SCH (09:30)
[2019-01-04] MEDS: LEVETIRACETAM 500 MG/5 ML LIQUID UDC GT SCH ×2 (09:30→21:47)
[2019-01-04] MEDS: VIMPAT 200 MG GT SCH ×2 (09:30→21:48)
[2019-01-04] MEDS: DIAZEPAM 10 MG TABLET GT SCH ×2 (09:30→21:48)
[2019-01-04] MEDS: HYDROGEN PEROXIDE 3% 118 ML BOTTLE TP SCH ×2 (09:30→21:49)
[2019-01-04] MEDS: VITAMINS A AND D OINT TP SCH ×2 (09:31→21:49)
[2019-01-04] MEDS: VITAL AF 1.2 1,000 ML LIQUID GT PRN (12:14)
[2019-01-04 20:03] VITALS: BP 127/80
[2019-01-04] MEDS: MULTIVIT, IRON, MIN NO. 8, FA TABLET GT SCH (21:48)
[2019-01-05] MEDS: VITAL AF 1.2 1,000 ML LIQUID GT PRN (02:52)
[2019-01-05 08:03] VITALS: BP 151/96
[2019-01-05] MEDS: ASPIRIN 81 MG TAB.CHEW GT SCH (08:27)
[2019-01-05] MEDS: LEVETIRACETAM 500 MG/5 ML LIQUID UDC GT SCH ×2 (08:27→21:05)
[2019-01-05] MEDS: METOPROLOL TARTRATE 50 MG TABLET GT SCH ×2 (08:27→21:05)
[2019-01-05] MEDS: VIMPAT 200 MG GT SCH ×2 (08:28→21:05)
[2019-01-05] MEDS: AMLODIPINE 10 MG TABLET GT SCH (08:29)
[2019-01-05] MEDS: PHENOBARBITAL 30 MG/7.5 ML LIQUID UDC GT SCH ×2 (08:29→21:05)
[2019-01-05] MEDS: LISINOPRIL 10 MG TABLET GT SCH (08:30)
[2019-01-05] MEDS: HYDROGEN PEROXIDE 3% 118 ML BOTTLE TP SCH ×2 (08:31→21:06)
[2019-01-05] MEDS: Z GUARD REMEDY PASTE 57 GM TUBE TOP SCH ×2 (08:31→21:05)
[2019-01-05] MEDS: COD LIVER OIL/ZINC OXIDE OINT 113 GM TUBE TOP SCH ×4 (08:31→21:05)
[2019-01-05] MEDS: ASCORBIC ACID 500 MG TABLET GT SCH ×2 (08:31→21:05)
[2019-01-05] MEDS: DIAZEPAM 10 MG TABLET GT SCH ×2 (08:31→21:05)
[2019-01-05] MEDS: VITAMINS A AND D OINT TP SCH ×2 (08:31→21:06)
[2019-01-05 20:13] VITALS: BP 127/80
[2019-01-05 20:37] VITALS: BP 140/90
[2019-01-05] MEDS: MULTIVIT, IRON, MIN NO. 8, FA TABLET GT SCH (21:05)
[2019-01-06 07:39] LABS: CARBON DIOXIDE 33 mmol/L (21-32); CHLORIDE 104 mmol/L (98-107); CREATININE 0.2 mg/dL (0.6-1.3); GLUCOSE 106 mg/dL (74-106); POTASSIUM 4.3 mmol/L (3.5-5.1); UREA NITROGEN, BLOOD 22 mg/dL (7-18)
[2019-01-06 08:00] VITALS: BP 108/69
[2019-01-06] MEDS: ASPIRIN 81 MG TAB.CHEW GT SCH (08:15)
[2019-01-06] MEDS: LEVETIRACETAM 500 MG/5 ML LIQUID UDC GT SCH ×2 (08:16→21:54)
[2019-01-06] MEDS: AMLODIPINE 10 MG TABLET GT SCH (08:18)
[2019-01-06] MEDS: METOPROLOL TARTRATE 50 MG TABLET GT SCH ×2 (08:18→21:00)
[2019-01-06] MEDS: LISINOPRIL 10 MG TABLET GT SCH (08:19)
[2019-01-06] MEDS: ASCORBIC ACID 500 MG TABLET GT SCH ×2 (08:20→21:58)
[2019-01-06] MEDS: COD LIVER OIL/ZINC OXIDE OINT 113 GM TUBE TOP SCH ×4 (08:20→21:00)
[2019-01-06] MEDS: Z GUARD REMEDY PASTE 57 GM TUBE TOP SCH ×2 (08:21→21:00)
[2019-01-06] MEDS: HYDROGEN PEROXIDE 3% 118 ML BOTTLE TP SCH ×2 (08:21→21:00)
[2019-01-06] MEDS: VITAMINS A AND D OINT TP SCH ×2 (08:21→21:00)
[2019-01-06] MEDS: PHENOBARBITAL 30 MG/7.5 ML LIQUID UDC GT SCH ×2 (09:02→21:58)
[2019-01-06] MEDS: VIMPAT 200 MG GT SCH ×2 (09:02→21:56)
[2019-01-06] MEDS: DIAZEPAM 10 MG TABLET GT SCH ×2 (09:02→21:56)
[2019-01-06] MEDS: VITAL AF 1.2 1,000 ML LIQUID GT PRN (13:05)
[2019-01-06 20:24] VITALS: BP 109/70
[2019-01-06] MEDS: MULTIVIT, IRON, MIN NO. 8, FA TABLET GT SCH (21:00)
[2019-01-07 08:00] VITALS: BP 119/86
[2019-01-07] MEDS: LEVETIRACETAM 500 MG/5 ML LIQUID UDC GT SCH ×2 (08:55→20:47)
[2019-01-07] MEDS: ASPIRIN 81 MG TAB.CHEW GT SCH (08:55)
[2019-01-07] MEDS: PHENOBARBITAL 30 MG/7.5 ML LIQUID UDC GT SCH ×2 (08:56→20:47)
[2019-01-07] MEDS: DIAZEPAM 10 MG TABLET GT SCH ×2 (08:56→20:47)
[2019-01-07] MEDS: VIMPAT 200 MG GT SCH ×2 (08:56→20:47)
[2019-01-07] MEDS: AMLODIPINE 10 MG TABLET GT SCH (08:56)
[2019-01-07] MEDS: ASCORBIC ACID 500 MG TABLET GT SCH ×2 (08:56→20:47)
[2019-01-07] MEDS: COD LIVER OIL/ZINC OXIDE OINT 113 GM TUBE TOP SCH ×4 (08:56→20:47)
[2019-01-07] MEDS: METOPROLOL TARTRATE 50 MG TABLET GT SCH ×2 (08:56→20:47)
[2019-01-07] MEDS: LISINOPRIL 10 MG TABLET GT SCH (08:56)
[2019-01-07] MEDS: Z GUARD REMEDY PASTE 57 GM TUBE TOP SCH ×2 (08:57→20:47)
[2019-01-07] MEDS: VITAMINS A AND D OINT TP SCH ×2 (08:57→20:48)
[2019-01-07] MEDS: HYDROGEN PEROXIDE 3% 118 ML BOTTLE TP SCH ×2 (08:57→20:47)
[2019-01-07 20:13] VITALS: BP 144/94
[2019-01-07] MEDS: MULTIVIT, IRON, MIN NO. 8, FA TABLET GT SCH (20:47)
[2019-01-07] MEDS: VITAL AF 1.2 1,000 ML LIQUID GT PRN (22:19)
[2019-01-08] MEDS: ASPIRIN 81 MG TAB.CHEW GT SCH (08:52)
[2019-01-08] MEDS: LEVETIRACETAM 500 MG/5 ML LIQUID UDC GT SCH ×2 (08:52→20:09)
[2019-01-08] MEDS: METOPROLOL TARTRATE 50 MG TABLET GT SCH ×2 (08:53→20:10)
[2019-01-08] MEDS: AMLODIPINE 10 MG TABLET GT SCH (08:54)
[2019-01-08] MEDS: LISINOPRIL 10 MG TABLET GT SCH (08:54)
[2019-01-08] MEDS: ASCORBIC ACID 500 MG TABLET GT SCH ×2 (08:57→20:10)
[2019-01-08] MEDS: COD LIVER OIL/ZINC OXIDE OINT 113 GM TUBE TOP SCH ×4 (08:57→20:10)
[2019-01-08] MEDS: DIAZEPAM 10 MG TABLET GT SCH ×2 (08:57→20:10)
[2019-01-08] MEDS: HYDROGEN PEROXIDE 3% 118 ML BOTTLE TP SCH ×2 (08:58→20:10)
[2019-01-08] MEDS: VITAMINS A AND D OINT TP SCH ×2 (08:58→20:10)
[2019-01-08] MEDS: Z GUARD REMEDY PASTE 57 GM TUBE TOP SCH ×2 (08:58→20:10)
[2019-01-08] MEDS: VIMPAT 200 MG GT SCH ×2 (08:59→20:10)
[2019-01-08] MEDS: PHENOBARBITAL 30 MG/7.5 ML LIQUID UDC GT SCH ×2 (08:59→20:10)
[2019-01-08 10:37] VITALS: BP 143/88
[2019-01-08 20:05] VITALS: BP 140/97
[2019-01-08] MEDS: MULTIVIT, IRON, MIN NO. 8, FA TABLET GT SCH (20:10)
[2019-01-09] MEDS: VITAL AF 1.2 1,000 ML LIQUID GT PRN (05:22)
[2019-01-09] MEDS: LEVETIRACETAM 500 MG/5 ML LIQUID UDC GT SCH ×2 (08:47→21:00)
[2019-01-09] MEDS: ASPIRIN 81 MG TAB.CHEW GT SCH (08:47)
[2019-01-09] MEDS: METOPROLOL TARTRATE 50 MG TABLET GT SCH ×2 (08:49→21:00)
[2019-01-09] MEDS: AMLODIPINE 10 MG TABLET GT SCH (08:50)
[2019-01-09] MEDS: VIMPAT 200 MG GT SCH ×2 (08:52→21:00)
[2019-01-09] MEDS: PHENOBARBITAL 30 MG/7.5 ML LIQUID UDC GT SCH ×2 (08:52→21:00)
[2019-01-09] MEDS: LISINOPRIL 10 MG TABLET GT SCH (08:54)
[2019-01-09] MEDS: ASCORBIC ACID 500 MG TABLET GT SCH ×2 (08:54→21:00)
[2019-01-09] MEDS: DIAZEPAM 10 MG TABLET GT SCH ×2 (08:54→21:00)
[2019-01-09] MEDS: COD LIVER OIL/ZINC OXIDE OINT 113 GM TUBE TOP SCH ×4 (08:55→21:00)
[2019-01-09] MEDS: HYDROGEN PEROXIDE 3% 118 ML BOTTLE TP SCH ×2 (08:55→21:00)
[2019-01-09] MEDS: VITAMINS A AND D OINT TP SCH ×2 (08:55→21:00)
[2019-01-09] MEDS: Z GUARD REMEDY PASTE 57 GM TUBE TOP SCH ×2 (08:55→21:00)
[2019-01-09 11:21] VITALS: BP 131/91
[2019-01-09 19:49] VITALS: BP 149/102
[2019-01-09 21:00] VITALS: BP 151/92
[2019-01-09] MEDS: MULTIVIT, IRON, MIN NO. 8, FA TABLET GT SCH (21:00)
[2019-01-10] MEDS: ASPIRIN 81 MG TAB.CHEW GT SCH (09:03)
[2019-01-10] MEDS: LEVETIRACETAM 500 MG/5 ML LIQUID UDC GT SCH ×2 (09:03→20:32)
[2019-01-10] MEDS: METOPROLOL TARTRATE 50 MG TABLET GT SCH ×2 (09:05→20:33)
[2019-01-10] MEDS: VIMPAT 200 MG GT SCH ×2 (09:05→20:35)
[2019-01-10] MEDS: ASCORBIC ACID 500 MG TABLET GT SCH ×2 (09:08→20:35)
[2019-01-10] MEDS: PHENOBARBITAL 30 MG/7.5 ML LIQUID UDC GT SCH ×2 (09:08→20:35)
[2019-01-10] MEDS: LISINOPRIL 10 MG TABLET GT SCH (09:08)
[2019-01-10] MEDS: DIAZEPAM 10 MG TABLET GT SCH ×2 (09:08→20:35)
[2019-01-10] MEDS: AMLODIPINE 10 MG TABLET GT SCH (09:08)
[2019-01-10] MEDS: VITAMINS A AND D OINT TP SCH ×2 (09:09→20:36)
[2019-01-10] MEDS: Z GUARD REMEDY PASTE 57 GM TUBE TOP SCH ×2 (09:09→20:36)
[2019-01-10] MEDS: COD LIVER OIL/ZINC OXIDE OINT 113 GM TUBE TOP SCH ×4 (09:09→20:35)
[2019-01-10] MEDS: HYDROGEN PEROXIDE 3% 118 ML BOTTLE TP SCH ×2 (09:09→20:36)
[2019-01-10] MEDS: VITAL AF 1.2 1,000 ML LIQUID GT PRN (10:24)
[2019-01-10 11:45] VITALS: BP 144/92
[2019-01-10 19:40] VITALS: BP 143/86
[2019-01-10] MEDS: MULTIVIT, IRON, MIN NO. 8, FA TABLET GT SCH (20:35)
[2019-01-11] MEDS: VITAL AF 1.2 1,000 ML LIQUID GT PRN ×2 (00:30→22:52)
[2019-01-11 08:06] VITALS: BP 111/75
[2019-01-11] MEDS: LEVETIRACETAM 500 MG/5 ML LIQUID UDC GT SCH ×2 (08:37→21:00)
[2019-01-11] MEDS: ASPIRIN 81 MG TAB.CHEW GT SCH (08:37)
[2019-01-11] MEDS: METOPROLOL TARTRATE 50 MG TABLET GT SCH ×2 (08:38→21:00)
[2019-01-11] MEDS: VIMPAT 200 MG GT SCH ×2 (08:38→21:00)
[2019-01-11] MEDS: AMLODIPINE 10 MG TABLET GT SCH (08:40)
[2019-01-11] MEDS: PHENOBARBITAL 30 MG/7.5 ML LIQUID UDC GT SCH ×2 (08:40→21:00)
[2019-01-11] MEDS: VITAMINS A AND D OINT TP SCH ×2 (08:41→21:00)
[2019-01-11] MEDS: COD LIVER OIL/ZINC OXIDE OINT 113 GM TUBE TOP SCH ×4 (08:41→21:00)
[2019-01-11] MEDS: HYDROGEN PEROXIDE 3% 118 ML BOTTLE TP SCH ×2 (08:41→21:00)
[2019-01-11] MEDS: ASCORBIC ACID 500 MG TABLET GT SCH ×2 (08:41→21:00)
[2019-01-11] MEDS: DIAZEPAM 10 MG TABLET GT SCH ×2 (08:41→21:00)
[2019-01-11] MEDS: LISINOPRIL 10 MG TABLET GT SCH (08:41)
[2019-01-11] MEDS: Z GUARD REMEDY PASTE 57 GM TUBE TOP SCH ×2 (08:41→21:00)
[2019-01-11 20:21] VITALS: BP 143/91
[2019-01-11] MEDS: MULTIVIT, IRON, MIN NO. 8, FA TABLET GT SCH (21:00)
[2019-01-12 08:05] VITALS: BP 124/77
[2019-01-12] MEDS: LEVETIRACETAM 500 MG/5 ML LIQUID UDC GT SCH ×2 (08:21→21:40)
[2019-01-12] MEDS: ASPIRIN 81 MG TAB.CHEW GT SCH (08:21)
[2019-01-12] MEDS: PHENOBARBITAL 30 MG/7.5 ML LIQUID UDC GT SCH ×2 (08:22→21:43)
[2019-01-12] MEDS: METOPROLOL TARTRATE 50 MG TABLET GT SCH ×2 (08:22→21:41)
[2019-01-12] MEDS: AMLODIPINE 10 MG TABLET GT SCH (08:22)
[2019-01-12] MEDS: LISINOPRIL 10 MG TABLET GT SCH (08:22)
[2019-01-12] MEDS: VIMPAT 200 MG GT SCH ×2 (08:22→21:41)
[2019-01-12] MEDS: ASCORBIC ACID 500 MG TABLET GT SCH ×2 (08:24→21:46)
[2019-01-12] MEDS: DIAZEPAM 10 MG TABLET GT SCH ×2 (08:24→21:42)
[2019-01-12] MEDS: VITAMINS A AND D OINT TP SCH ×2 (08:24→21:46)
[2019-01-12] MEDS: HYDROGEN PEROXIDE 3% 118 ML BOTTLE TP SCH ×2 (08:24→21:46)
[2019-01-12] MEDS: COD LIVER OIL/ZINC OXIDE OINT 113 GM TUBE TOP SCH ×4 (08:24→21:46)
[2019-01-12] MEDS: Z GUARD REMEDY PASTE 57 GM TUBE TOP SCH ×2 (08:24→21:46)
[2019-01-12 20:03] VITALS: BP 143/91
[2019-01-12] MEDS: MULTIVIT, IRON, MIN NO. 8, FA TABLET GT SCH (21:45)
[2019-01-13 08:00] VITALS: BP 104/70
[2019-01-13] MEDS: ASPIRIN 81 MG TAB.CHEW GT SCH (08:46)
[2019-01-13] MEDS: LEVETIRACETAM 500 MG/5 ML LIQUID UDC GT SCH ×2 (08:46→21:26)
[2019-01-13] MEDS: METOPROLOL TARTRATE 50 MG TABLET GT SCH ×2 (08:47→21:23)
[2019-01-13] MEDS: AMLODIPINE 10 MG TABLET GT SCH (08:48)
[2019-01-13] MEDS: VIMPAT 200 MG GT SCH ×2 (08:48→21:25)
[2019-01-13] MEDS: PHENOBARBITAL 30 MG/7.5 ML LIQUID UDC GT SCH ×2 (08:49→21:22)
[2019-01-13] MEDS: DIAZEPAM 10 MG TABLET GT SCH ×2 (08:49→21:25)
[2019-01-13] MEDS: LISINOPRIL 10 MG TABLET GT SCH (08:49)
[2019-01-13] MEDS: COD LIVER OIL/ZINC OXIDE OINT 113 GM TUBE TOP SCH ×4 (08:49→21:25)
[2019-01-13] MEDS: ASCORBIC ACID 500 MG TABLET GT SCH ×2 (08:49→21:25)
[2019-01-13] MEDS: HYDROGEN PEROXIDE 3% 118 ML BOTTLE TP SCH ×2 (08:50→21:26)
[2019-01-13] MEDS: Z GUARD REMEDY PASTE 57 GM TUBE TOP SCH ×2 (08:50→21:25)
[2019-01-13] MEDS: VITAMINS A AND D OINT TP SCH ×2 (08:50→21:26)
[2019-01-13 19:42] VITALS: BP 136/87
[2019-01-13] MEDS: MULTIVIT, IRON, MIN NO. 8, FA TABLET GT SCH (21:23)
[2019-01-13] MEDS: VITAL AF 1.2 1,000 ML LIQUID GT PRN (21:34)
[2019-01-14 08:00] VITALS: BP 108/61
[2019-01-14] MEDS: AMLODIPINE 10 MG TABLET GT SCH (09:00)
[2019-01-14] MEDS: LISINOPRIL 10 MG TABLET GT SCH (09:00)
[2019-01-14] MEDS: METOPROLOL TARTRATE 50 MG TABLET GT SCH ×2 (09:00→20:59)
[2019-01-14] MEDS: PHENOBARBITAL 30 MG/7.5 ML LIQUID UDC GT SCH ×2 (09:12→21:05)
[2019-01-14] MEDS: VIMPAT 200 MG GT SCH ×2 (09:12→21:05)
[2019-01-14] MEDS: ASPIRIN 81 MG TAB.CHEW GT SCH (09:12)
[2019-01-14] MEDS: DIAZEPAM 10 MG TABLET GT SCH ×2 (09:12→21:05)
[2019-01-14] MEDS: LEVETIRACETAM 500 MG/5 ML LIQUID UDC GT SCH ×2 (09:12→20:58)
[2019-01-14] MEDS: ASCORBIC ACID 500 MG TABLET GT SCH ×2 (09:12→21:05)
[2019-01-14] MEDS: COD LIVER OIL/ZINC OXIDE OINT 113 GM TUBE TOP SCH ×4 (09:13→21:05)
[2019-01-14] MEDS: HYDROGEN PEROXIDE 3% 118 ML BOTTLE TP SCH ×2 (09:13→21:06)
[2019-01-14] MEDS: Z GUARD REMEDY PASTE 57 GM TUBE TOP SCH ×2 (09:13→21:05)
[2019-01-14] MEDS: VITAMINS A AND D OINT TP SCH ×2 (09:13→21:06)
[2019-01-14] MEDS: VITAL AF 1.2 1,000 ML LIQUID GT PRN (14:14)
[2019-01-14 20:00] VITALS: BP 156/93
[2019-01-14] MEDS: MULTIVIT, IRON, MIN NO. 8, FA TABLET GT SCH (21:05)
[2019-01-14 22:00] VITALS: BP 144/85
[2019-01-15] MEDS: VITAL AF 1.2 1,000 ML LIQUID GT PRN ×2 (03:00→23:00)
[2019-01-15 08:00] VITALS: BP 125/70
[2019-01-15] MEDS: ASPIRIN 81 MG TAB.CHEW GT SCH (08:26)
[2019-01-15] MEDS: DIAZEPAM 10 MG TABLET GT SCH ×2 (08:30→20:38)
[2019-01-15] MEDS: VIMPAT 200 MG GT SCH ×2 (08:30→20:38)
[2019-01-15] MEDS: ASCORBIC ACID 500 MG TABLET GT SCH ×2 (08:30→20:38)
[2019-01-15] MEDS: PHENOBARBITAL 30 MG/7.5 ML LIQUID UDC GT SCH ×2 (08:30→20:38)
[2019-01-15] MEDS: LEVETIRACETAM 500 MG/5 ML LIQUID UDC GT SCH ×2 (08:30→20:38)
[2019-01-15] MEDS: HYDROGEN PEROXIDE 3% 118 ML BOTTLE TP SCH ×2 (08:31→20:41)
[2019-01-15] MEDS: COD LIVER OIL/ZINC OXIDE OINT 113 GM TUBE TOP SCH ×4 (08:31→20:40)
[2019-01-15] MEDS: VITAMINS A AND D OINT TP SCH ×2 (08:31→20:41)
[2019-01-15] MEDS: Z GUARD REMEDY PASTE 57 GM TUBE TOP SCH ×2 (08:31→20:40)
[2019-01-15] MEDS: METOPROLOL TARTRATE 50 MG TABLET GT SCH ×2 (08:32→20:38)
[2019-01-15] MEDS: AMLODIPINE 10 MG TABLET GT SCH (08:32)
[2019-01-15] MEDS: LISINOPRIL 10 MG TABLET GT SCH (08:32)
[2019-01-15 20:30] VITALS: BP 135/85
[2019-01-15] MEDS: MULTIVIT, IRON, MIN NO. 8, FA TABLET GT SCH (20:38)
[2019-01-16 08:00] VITALS: BP 114/60
[2019-01-16] MEDS: METOPROLOL TARTRATE 50 MG TABLET GT SCH ×2 (08:28→21:26)
[2019-01-16] MEDS: LEVETIRACETAM 500 MG/5 ML LIQUID UDC GT SCH ×2 (08:28→21:24)
[2019-01-16] MEDS: ASPIRIN 81 MG TAB.CHEW GT SCH (08:28)
[2019-01-16] MEDS: PHENOBARBITAL 30 MG/7.5 ML LIQUID UDC GT SCH ×2 (08:29→21:31)
[2019-01-16] MEDS: DIAZEPAM 10 MG TABLET GT SCH ×2 (08:29→21:26)
[2019-01-16] MEDS: COD LIVER OIL/ZINC OXIDE OINT 113 GM TUBE TOP SCH ×4 (08:29→21:31)
[2019-01-16] MEDS: Z GUARD REMEDY PASTE 57 GM TUBE TOP SCH ×2 (08:29→21:31)
[2019-01-16] MEDS: ASCORBIC ACID 500 MG TABLET GT SCH ×2 (08:29→21:31)
[2019-01-16] MEDS: AMLODIPINE 10 MG TABLET GT SCH (08:29)
[2019-01-16] MEDS: LISINOPRIL 10 MG TABLET GT SCH (08:29)
[2019-01-16] MEDS: VIMPAT 200 MG GT SCH ×2 (08:29→21:26)
[2019-01-16] MEDS: HYDROGEN PEROXIDE 3% 118 ML BOTTLE TP SCH ×2 (08:30→21:32)
[2019-01-16] MEDS: VITAMINS A AND D OINT TP SCH ×2 (08:30→21:32)
[2019-01-16] MEDS: VITAL AF 1.2 1,000 ML LIQUID GT PRN (17:37)
[2019-01-16 20:25] VITALS: BP 139/92
[2019-01-16] MEDS: MULTIVIT, IRON, MIN NO. 8, FA TABLET GT SCH (21:31)
[2019-01-17 08:00] VITALS: BP 122/76
[2019-01-17] MEDS: ASPIRIN 81 MG TAB.CHEW GT SCH (08:29)
[2019-01-17] MEDS: LEVETIRACETAM 500 MG/5 ML LIQUID UDC GT SCH ×2 (08:29→21:34)
[2019-01-17] MEDS: VIMPAT 200 MG GT SCH ×2 (08:30→21:35)
[2019-01-17] MEDS: METOPROLOL TARTRATE 50 MG TABLET GT SCH ×2 (08:30→21:35)
[2019-01-17] MEDS: AMLODIPINE 10 MG TABLET GT SCH (08:32)
[2019-01-17] MEDS: PHENOBARBITAL 30 MG/7.5 ML LIQUID UDC GT SCH ×2 (08:32→21:37)
[2019-01-17] MEDS: DIAZEPAM 10 MG TABLET GT SCH ×2 (08:33→21:35)
[2019-01-17] MEDS: ASCORBIC ACID 500 MG TABLET GT SCH ×2 (08:33→21:41)
[2019-01-17] MEDS: VITAMINS A AND D OINT TP SCH ×2 (08:33→21:41)
[2019-01-17] MEDS: LISINOPRIL 10 MG TABLET GT SCH (08:33)
[2019-01-17] MEDS: HYDROGEN PEROXIDE 3% 118 ML BOTTLE TP SCH ×2 (08:33→21:41)
[2019-01-17] MEDS: Z GUARD REMEDY PASTE 57 GM TUBE TOP SCH ×2 (08:33→21:41)
[2019-01-17] MEDS: COD LIVER OIL/ZINC OXIDE OINT 113 GM TUBE TOP SCH ×4 (08:33→21:41)
[2019-01-17 20:38] VITALS: BP 146/92
[2019-01-17] MEDS: MULTIVIT, IRON, MIN NO. 8, FA TABLET GT SCH (21:40)
[2019-01-17] MEDS: VITAL AF 1.2 1,000 ML LIQUID GT PRN (21:54)
[2019-01-18] MEDS: VIMPAT 200 MG GT SCH ×2 (09:33→20:22)
[2019-01-18] MEDS: ASPIRIN 81 MG TAB.CHEW GT SCH (09:33)
[2019-01-18] MEDS: LEVETIRACETAM 500 MG/5 ML LIQUID UDC GT SCH ×2 (09:33→20:22)
[2019-01-18] MEDS: AMLODIPINE 10 MG TABLET GT SCH (09:33)
[2019-01-18] MEDS: PHENOBARBITAL 30 MG/7.5 ML LIQUID UDC GT SCH ×2 (09:33→20:22)
[2019-01-18] MEDS: METOPROLOL TARTRATE 50 MG TABLET GT SCH ×2 (09:33→20:22)
[2019-01-18] MEDS: Z GUARD REMEDY PASTE 57 GM TUBE TOP SCH ×2 (09:34→20:23)
[2019-01-18] MEDS: DIAZEPAM 10 MG TABLET GT SCH ×2 (09:34→20:22)
[2019-01-18] MEDS: LISINOPRIL 10 MG TABLET GT SCH (09:34)
[2019-01-18] MEDS: HYDROGEN PEROXIDE 3% 118 ML BOTTLE TP SCH ×2 (09:34→20:23)
[2019-01-18] MEDS: ASCORBIC ACID 500 MG TABLET GT SCH ×2 (09:34→20:22)
[2019-01-18] MEDS: COD LIVER OIL/ZINC OXIDE OINT 113 GM TUBE TOP SCH ×4 (09:34→20:23)
[2019-01-18] MEDS: VITAMINS A AND D OINT TP SCH ×2 (09:34→20:23)
[2019-01-18 12:06] VITALS: BP 150/96
[2019-01-18] MEDS: VITAL AF 1.2 1,000 ML LIQUID GT PRN (15:01)
[2019-01-18] MEDS: MULTIVIT, IRON, MIN NO. 8, FA TABLET GT SCH (20:22)
[2019-01-18 21:27] VITALS: BP 138/87
[2019-01-19 08:09] VITALS: BP 101/71
[2019-01-19] MEDS: ASPIRIN 81 MG TAB.CHEW GT SCH (09:00)
[2019-01-19] MEDS: AMLODIPINE 10 MG TABLET GT SCH (09:00)
[2019-01-19] MEDS: COD LIVER OIL/ZINC OXIDE OINT 113 GM TUBE TOP SCH ×4 (09:00→21:04)
[2019-01-19] MEDS: METOPROLOL TARTRATE 50 MG TABLET GT SCH ×2 (09:00→21:03)
[2019-01-19] MEDS: LEVETIRACETAM 500 MG/5 ML LIQUID UDC GT SCH ×2 (09:00→21:02)
[2019-01-19] MEDS: HYDROGEN PEROXIDE 3% 118 ML BOTTLE TP SCH ×2 (09:00→21:04)
[2019-01-19] MEDS: VITAMINS A AND D OINT TP SCH ×2 (09:00→21:04)
[2019-01-19] MEDS: Z GUARD REMEDY PASTE 57 GM TUBE TOP SCH ×2 (09:00→21:04)
[2019-01-19] MEDS: LISINOPRIL 10 MG TABLET GT SCH (09:00)
[2019-01-19] MEDS: ASCORBIC ACID 500 MG TABLET GT SCH ×2 (09:00→21:04)
[2019-01-19] MEDS: VIMPAT 200 MG GT SCH ×2 (09:00→21:03)
[2019-01-19] MEDS: PHENOBARBITAL 30 MG/7.5 ML LIQUID UDC GT SCH ×2 (09:00→21:03)
[2019-01-19] MEDS: DIAZEPAM 10 MG TABLET GT SCH ×2 (09:00→21:03)
[2019-01-19 20:14] VITALS: BP 143/88
[2019-01-19] MEDS: VITAL AF 1.2 1,000 ML LIQUID GT PRN (21:00)
[2019-01-19] MEDS: MULTIVIT, IRON, MIN NO. 8, FA TABLET GT SCH (21:03)
[2019-01-20 08:02] VITALS: BP 111/69
[2019-01-20] MEDS: LEVETIRACETAM 500 MG/5 ML LIQUID UDC GT SCH ×2 (08:08→21:36)
[2019-01-20] MEDS: ASPIRIN 81 MG TAB.CHEW GT SCH (08:08)
[2019-01-20] MEDS: VIMPAT 200 MG GT SCH ×2 (08:09→21:41)
[2019-01-20] MEDS: AMLODIPINE 10 MG TABLET GT SCH (08:09)
[2019-01-20] MEDS: METOPROLOL TARTRATE 50 MG TABLET GT SCH ×2 (08:09→21:37)
[2019-01-20] MEDS: ASCORBIC ACID 500 MG TABLET GT SCH ×2 (08:10→21:41)
[2019-01-20] MEDS: PHENOBARBITAL 30 MG/7.5 ML LIQUID UDC GT SCH ×2 (08:10→21:41)
[2019-01-20] MEDS: DIAZEPAM 10 MG TABLET GT SCH ×2 (08:10→21:41)
[2019-01-20] MEDS: LISINOPRIL 10 MG TABLET GT SCH (08:10)
[2019-01-20] MEDS: Z GUARD REMEDY PASTE 57 GM TUBE TOP SCH ×2 (08:11→21:42)
[2019-01-20] MEDS: VITAMINS A AND D OINT TP SCH ×2 (08:11→21:42)
[2019-01-20] MEDS: HYDROGEN PEROXIDE 3% 118 ML BOTTLE TP SCH ×2 (08:11→21:42)
[2019-01-20] MEDS: COD LIVER OIL/ZINC OXIDE OINT 113 GM TUBE TOP SCH ×4 (08:11→21:42)
[2019-01-20] MEDS: VITAL AF 1.2 1,000 ML LIQUID GT PRN (12:25)
[2019-01-20 20:10] VITALS: BP 155/91
[2019-01-20] MEDS: MULTIVIT, IRON, MIN NO. 8, FA TABLET GT SCH (21:41)
[2019-01-21] MEDS: VITAL AF 1.2 1,000 ML LIQUID GT PRN (03:00)
[2019-01-21 08:00] VITALS: BP 140/90
[2019-01-21] MEDS: ASPIRIN 81 MG TAB.CHEW GT SCH (08:19)
[2019-01-21] MEDS: LEVETIRACETAM 500 MG/5 ML LIQUID UDC GT SCH ×2 (08:19→20:50)
[2019-01-21] MEDS: Z GUARD REMEDY PASTE 57 GM TUBE TOP SCH ×2 (08:20→20:55)
[2019-01-21] MEDS: LISINOPRIL 10 MG TABLET GT SCH (08:20)
[2019-01-21] MEDS: ASCORBIC ACID 500 MG TABLET GT SCH ×2 (08:20→20:55)
[2019-01-21] MEDS: PHENOBARBITAL 30 MG/7.5 ML LIQUID UDC GT SCH ×2 (08:20→20:53)
[2019-01-21] MEDS: METOPROLOL TARTRATE 50 MG TABLET GT SCH ×2 (08:20→20:52)
[2019-01-21] MEDS: AMLODIPINE 10 MG TABLET GT SCH (08:20)
[2019-01-21] MEDS: DIAZEPAM 10 MG TABLET GT SCH ×2 (08:20→20:55)
[2019-01-21] MEDS: COD LIVER OIL/ZINC OXIDE OINT 113 GM TUBE TOP SCH ×4 (08:20→20:55)
[2019-01-21] MEDS: VIMPAT 200 MG GT SCH ×2 (08:20→20:52)
[2019-01-21] MEDS: VITAMINS A AND D OINT TP SCH ×2 (08:21→20:55)
[2019-01-21] MEDS: HYDROGEN PEROXIDE 3% 118 ML BOTTLE TP SCH ×2 (08:21→20:55)
[2019-01-21 20:15] VITALS: BP 141/92
[2019-01-21] MEDS: MULTIVIT, IRON, MIN NO. 8, FA TABLET GT SCH (20:55)
[2019-01-22] MEDS: VITAL AF 1.2 1,000 ML LIQUID GT PRN ×2 (05:00→21:49)
[2019-01-22 08:00] VITALS: BP_SYST 116; BP_SYST 98; BP_DIAS 56; BP_DIAS 77
[2019-01-22] MEDS: METOPROLOL TARTRATE 50 MG TABLET GT SCH ×2 (08:09→21:46)
[2019-01-22] MEDS: AMLODIPINE 10 MG TABLET GT SCH (08:09)
[2019-01-22] MEDS: PHENOBARBITAL 30 MG/7.5 ML LIQUID UDC GT SCH ×2 (08:09→21:50)
[2019-01-22] MEDS: COD LIVER OIL/ZINC OXIDE OINT 113 GM TUBE TOP SCH ×4 (08:09→21:47)
[2019-01-22] MEDS: DIAZEPAM 10 MG TABLET GT SCH ×2 (08:09→21:47)
[2019-01-22] MEDS: LISINOPRIL 10 MG TABLET GT SCH (08:09)
[2019-01-22] MEDS: LEVETIRACETAM 500 MG/5 ML LIQUID UDC GT SCH ×2 (08:09→21:45)
[2019-01-22] MEDS: VIMPAT 200 MG GT SCH ×2 (08:09→21:46)
[2019-01-22] MEDS: ASCORBIC ACID 500 MG TABLET GT SCH ×2 (08:09→21:47)
[2019-01-22] MEDS: ASPIRIN 81 MG TAB.CHEW GT SCH (08:09)
[2019-01-22] MEDS: Z GUARD REMEDY PASTE 57 GM TUBE TOP SCH ×2 (08:10→21:48)
[2019-01-22] MEDS: VITAMINS A AND D OINT TP SCH ×2 (08:10→21:48)
[2019-01-22] MEDS: HYDROGEN PEROXIDE 3% 118 ML BOTTLE TP SCH ×2 (08:10→21:48)
[2019-01-22 20:23] VITALS: BP 155/87
[2019-01-22] MEDS: MULTIVIT, IRON, MIN NO. 8, FA TABLET GT SCH (21:46)
[2019-01-23] MEDS: ASPIRIN 81 MG TAB.CHEW GT SCH (08:21)
[2019-01-23] MEDS: VIMPAT 200 MG GT SCH ×2 (08:21→21:14)
[2019-01-23] MEDS: METOPROLOL TARTRATE 50 MG TABLET GT SCH ×2 (08:21→21:13)
[2019-01-23] MEDS: LEVETIRACETAM 500 MG/5 ML LIQUID UDC GT SCH ×2 (08:21→21:12)
[2019-01-23] MEDS: LISINOPRIL 10 MG TABLET GT SCH (08:22)
[2019-01-23] MEDS: AMLODIPINE 10 MG TABLET GT SCH (08:22)
[2019-01-23] MEDS: PHENOBARBITAL 30 MG/7.5 ML LIQUID UDC GT SCH ×2 (08:22→21:16)
[2019-01-23] MEDS: DIAZEPAM 10 MG TABLET GT SCH ×2 (08:22→21:14)
[2019-01-23] MEDS: HYDROGEN PEROXIDE 3% 118 ML BOTTLE TP SCH ×2 (08:23→21:21)
[2019-01-23] MEDS: VITAMINS A AND D OINT TP SCH ×2 (08:23→21:21)
[2019-01-23] MEDS: Z GUARD REMEDY PASTE 57 GM TUBE TOP SCH ×2 (08:23→21:20)
[2019-01-23] MEDS: ASCORBIC ACID 500 MG TABLET GT SCH ×2 (08:23→21:20)
[2019-01-23 08:40] VITALS: BP 124/80
[2019-01-23] MEDS: VITAL AF 1.2 1,000 ML LIQUID GT PRN (15:24)
[2019-01-23 20:04] VITALS: BP 146/90
[2019-01-23] MEDS: MULTIVIT, IRON, MIN NO. 8, FA TABLET GT SCH (21:20)
[2019-01-24] MEDS: VITAL AF 1.2 1,000 ML LIQUID GT PRN (04:35)
[2019-01-24 07:52] VITALS: BP 99/63
[2019-01-24] MEDS: LEVETIRACETAM 500 MG/5 ML LIQUID UDC GT SCH ×2 (08:37→21:12)
[2019-01-24] MEDS: ASPIRIN 81 MG TAB.CHEW GT SCH (08:37)
[2019-01-24] MEDS: METOPROLOL TARTRATE 50 MG TABLET GT SCH ×2 (08:38→21:14)
[2019-01-24] MEDS: VIMPAT 200 MG GT SCH ×2 (08:38→21:14)
[2019-01-24] MEDS: AMLODIPINE 10 MG TABLET GT SCH (08:39)
[2019-01-24] MEDS: PHENOBARBITAL 30 MG/7.5 ML LIQUID UDC GT SCH ×2 (08:39→21:14)
[2019-01-24] MEDS: LISINOPRIL 10 MG TABLET GT SCH (08:40)
[2019-01-24] MEDS: VITAMINS A AND D OINT TP SCH ×2 (08:41→21:14)
[2019-01-24] MEDS: ASCORBIC ACID 500 MG TABLET GT SCH ×2 (08:41→21:14)
[2019-01-24] MEDS: Z GUARD REMEDY PASTE 57 GM TUBE TOP SCH ×2 (08:41→21:14)
[2019-01-24] MEDS: HYDROGEN PEROXIDE 3% 118 ML BOTTLE TP SCH ×2 (08:41→21:14)
[2019-01-24] MEDS: DIAZEPAM 10 MG TABLET GT SCH ×2 (08:41→21:14)
[2019-01-24 20:07] VITALS: BP 146/90
[2019-01-24] MEDS: MULTIVIT, IRON, MIN NO. 8, FA TABLET GT SCH (21:14)
[2019-01-25] MEDS: VITAL AF 1.2 1,000 ML LIQUID GT PRN (01:19)
[2019-01-25 08:00] VITALS: BP 112/76
[2019-01-25] MEDS: LEVETIRACETAM 500 MG/5 ML LIQUID UDC GT SCH ×2 (08:04→20:08)
[2019-01-25] MEDS: ASPIRIN 81 MG TAB.CHEW GT SCH (08:04)
[2019-01-25] MEDS: METOPROLOL TARTRATE 50 MG TABLET GT SCH ×2 (08:07→20:24)
[2019-01-25] MEDS: LISINOPRIL 10 MG TABLET GT SCH (08:08)
[2019-01-25] MEDS: PHENOBARBITAL 30 MG/7.5 ML LIQUID UDC GT SCH ×2 (08:08→20:09)
[2019-01-25] MEDS: VIMPAT 200 MG GT SCH ×2 (08:08→20:09)
[2019-01-25] MEDS: AMLODIPINE 10 MG TABLET GT SCH (08:08)
[2019-01-25] MEDS: Z GUARD REMEDY PASTE 57 GM TUBE TOP SCH ×2 (08:09→20:09)
[2019-01-25] MEDS: DIAZEPAM 10 MG TABLET GT SCH ×2 (08:09→20:09)
[2019-01-25] MEDS: ASCORBIC ACID 500 MG TABLET GT SCH ×2 (08:09→20:09)
[2019-01-25] MEDS: VITAMINS A AND D OINT TP SCH ×2 (08:09→20:09)
[2019-01-25] MEDS: HYDROGEN PEROXIDE 3% 118 ML BOTTLE TP SCH ×2 (08:09→20:09)
[2019-01-25] MEDS: MULTIVIT, IRON, MIN NO. 8, FA TABLET GT SCH (20:09)
[2019-01-25 20:33] VITALS: BP 136/86
[2019-01-25 20:36] VITALS: BP 136/86
[2019-01-26 08:05] VITALS: BP 133/81
[2019-01-26] MEDS: LEVETIRACETAM 500 MG/5 ML LIQUID UDC GT SCH ×2 (08:29→20:40)
[2019-01-26] MEDS: ASPIRIN 81 MG TAB.CHEW GT SCH (08:29)
[2019-01-26] MEDS: METOPROLOL TARTRATE 50 MG TABLET GT SCH ×2 (08:31→20:41)
[2019-01-26] MEDS: VIMPAT 200 MG GT SCH ×2 (08:32→20:41)
[2019-01-26] MEDS: PHENOBARBITAL 30 MG/7.5 ML LIQUID UDC GT SCH ×2 (08:33→20:43)
[2019-01-26] MEDS: AMLODIPINE 10 MG TABLET GT SCH (08:33)
[2019-01-26] MEDS: LISINOPRIL 10 MG TABLET GT SCH (08:34)
[2019-01-26] MEDS: DIAZEPAM 10 MG TABLET GT SCH ×2 (08:34→20:41)
[2019-01-26] MEDS: ASCORBIC ACID 500 MG TABLET GT SCH ×2 (08:34→20:46)
[2019-01-26] MEDS: VITAMINS A AND D OINT TP SCH ×2 (08:35→20:46)
[2019-01-26] MEDS: HYDROGEN PEROXIDE 3% 118 ML BOTTLE TP SCH ×2 (08:35→20:46)
[2019-01-26] MEDS: Z GUARD REMEDY PASTE 57 GM TUBE TOP SCH ×2 (08:35→20:46)
[2019-01-26] MEDS: VITAL AF 1.2 1,000 ML LIQUID GT PRN (11:40)
[2019-01-26 20:39] VITALS: BP 127/80
[2019-01-26] MEDS: MULTIVIT, IRON, MIN NO. 8, FA TABLET GT SCH (20:45)
[2019-01-27] MEDS: VITAL AF 1.2 1,000 ML LIQUID GT PRN ×2 (02:16→17:01)
[2019-01-27 08:00] VITALS: BP 119/80
[2019-01-27] MEDS: LEVETIRACETAM 500 MG/5 ML LIQUID UDC GT SCH ×2 (08:56→20:25)
[2019-01-27] MEDS: ASPIRIN 81 MG TAB.CHEW GT SCH (08:56)
[2019-01-27] MEDS: METOPROLOL TARTRATE 50 MG TABLET GT SCH ×2 (08:57→20:25)
[2019-01-27] MEDS: AMLODIPINE 10 MG TABLET GT SCH (09:00)
[2019-01-27] MEDS: VIMPAT 200 MG GT SCH ×2 (09:00→20:25)
[2019-01-27] MEDS: LISINOPRIL 10 MG TABLET GT SCH (09:00)
[2019-01-27] MEDS: PHENOBARBITAL 30 MG/7.5 ML LIQUID UDC GT SCH ×2 (09:02→20:25)
[2019-01-27] MEDS: Z GUARD REMEDY PASTE 57 GM TUBE TOP SCH ×2 (09:03→20:26)
[2019-01-27] MEDS: DIAZEPAM 10 MG TABLET GT SCH ×2 (09:03→20:26)
[2019-01-27] MEDS: HYDROGEN PEROXIDE 3% 118 ML BOTTLE TP SCH ×2 (09:03→20:26)
[2019-01-27] MEDS: VITAMINS A AND D OINT TP SCH ×2 (09:03→20:26)
[2019-01-27] MEDS: ASCORBIC ACID 500 MG TABLET GT SCH ×2 (09:03→20:26)
[2019-01-27 20:19] VITALS: BP 118/79
[2019-01-27] MEDS: MULTIVIT, IRON, MIN NO. 8, FA TABLET GT SCH (20:26)
[2019-01-28] MEDS: VITAL AF 1.2 1,000 ML LIQUID GT PRN (04:56)
[2019-01-28] MEDS: AMLODIPINE 10 MG TABLET GT SCH (08:46)
[2019-01-28] MEDS: ASPIRIN 81 MG TAB.CHEW GT SCH (08:46)
[2019-01-28] MEDS: METOPROLOL TARTRATE 50 MG TABLET GT SCH ×2 (08:46→21:42)
[2019-01-28] MEDS: DIAZEPAM 10 MG TABLET GT SCH ×2 (08:46→21:45)
[2019-01-28] MEDS: PHENOBARBITAL 30 MG/7.5 ML LIQUID UDC GT SCH ×2 (08:46→21:44)
[2019-01-28] MEDS: LEVETIRACETAM 500 MG/5 ML LIQUID UDC GT SCH ×2 (08:46→21:41)
[2019-01-28] MEDS: VIMPAT 200 MG GT SCH ×2 (08:46→21:42)
[2019-01-28] MEDS: LISINOPRIL 10 MG TABLET GT SCH (08:46)
[2019-01-28] MEDS: VITAMINS A AND D OINT TP SCH ×2 (08:47→21:45)
[2019-01-28] MEDS: Z GUARD REMEDY PASTE 57 GM TUBE TOP SCH ×2 (08:47→21:45)
[2019-01-28] MEDS: HYDROGEN PEROXIDE 3% 118 ML BOTTLE TP SCH ×2 (08:47→20:53)
[2019-01-28] MEDS: ASCORBIC ACID 500 MG TABLET GT SCH ×2 (08:47→21:45)
[2019-01-28 10:08] VITALS: BP 108/69
[2019-01-28] MEDS: MULTIVIT, IRON, MIN NO. 8, FA TABLET GT SCH (21:44)
[2019-01-29] MEDS: METOPROLOL TARTRATE 50 MG TABLET GT SCH ×2 (08:41→20:47)
[2019-01-29] MEDS: VIMPAT 200 MG GT SCH ×2 (08:41→20:47)
[2019-01-29] MEDS: LEVETIRACETAM 500 MG/5 ML LIQUID UDC GT SCH ×2 (08:41→20:46)
[2019-01-29] MEDS: LISINOPRIL 10 MG TABLET GT SCH (08:41)
[2019-01-29] MEDS: AMLODIPINE 10 MG TABLET GT SCH (08:41)
[2019-01-29] MEDS: ASPIRIN 81 MG TAB.CHEW GT SCH (08:41)
[2019-01-29] MEDS: PHENOBARBITAL 30 MG/7.5 ML LIQUID UDC GT SCH ×2 (08:41→20:47)
[2019-01-29] MEDS: DIAZEPAM 10 MG TABLET GT SCH ×2 (08:41→20:47)
[2019-01-29] MEDS: ASCORBIC ACID 500 MG TABLET GT SCH ×2 (08:42→20:47)
[2019-01-29] MEDS: Z GUARD REMEDY PASTE 57 GM TUBE TOP SCH ×2 (08:42→20:47)
[2019-01-29] MEDS: VITAMINS A AND D OINT TP SCH ×2 (08:42→20:47)
[2019-01-29] MEDS: HYDROGEN PEROXIDE 3% 118 ML BOTTLE TP SCH ×2 (08:42→21:00)
[2019-01-29 11:01] VITALS: BP 137/87
[2019-01-29 20:11] VITALS: BP 137/97
[2019-01-29] MEDS: MULTIVIT, IRON, MIN NO. 8, FA TABLET GT SCH (20:47)
[2019-01-30] MEDS: VITAL AF 1.2 1,000 ML LIQUID GT PRN ×2 (03:11→20:45)
[2019-01-30] MEDS: ASPIRIN 81 MG TAB.CHEW GT SCH (08:33)
[2019-01-30] MEDS: LEVETIRACETAM 500 MG/5 ML LIQUID UDC GT SCH ×2 (08:34→21:04)
[2019-01-30] MEDS: VIMPAT 200 MG GT SCH ×2 (08:40→21:09)
[2019-01-30] MEDS: METOPROLOL TARTRATE 50 MG TABLET GT SCH ×2 (08:40→21:47)
[2019-01-30] MEDS: AMLODIPINE 10 MG TABLET GT SCH (08:41)
[2019-01-30] MEDS: DIAZEPAM 10 MG TABLET GT SCH ×2 (08:42→21:09)
[2019-01-30] MEDS: Z GUARD REMEDY PASTE 57 GM TUBE TOP SCH ×2 (08:42→21:18)
[2019-01-30] MEDS: ASCORBIC ACID 500 MG TABLET GT SCH ×2 (08:42→21:17)
[2019-01-30] MEDS: VITAMINS A AND D OINT TP SCH ×2 (08:42→21:18)
[2019-01-30] MEDS: PHENOBARBITAL 30 MG/7.5 ML LIQUID UDC GT SCH ×2 (08:42→21:17)
[2019-01-30] MEDS: LISINOPRIL 10 MG TABLET GT SCH (08:42)
[2019-01-30 10:43] VITALS: BP 91/63
[2019-01-30] MEDS: HYDROGEN PEROXIDE 3% 118 ML BOTTLE TP SCH ×2 (12:58→21:00)
[2019-01-30] MEDS: MULTIVIT, IRON, MIN NO. 8, FA TABLET GT SCH (21:17)
[2019-01-30 23:12] VITALS: BP 145/87
[2019-01-31] MEDS: LEVETIRACETAM 500 MG/5 ML LIQUID UDC GT SCH ×2 (08:02→21:38)
[2019-01-31] MEDS: ASPIRIN 81 MG TAB.CHEW GT SCH (08:02)
[2019-01-31] MEDS: ASCORBIC ACID 500 MG TABLET GT SCH ×2 (08:03→21:46)
[2019-01-31] MEDS: VITAMINS A AND D OINT TP SCH ×2 (08:03→21:47)
[2019-01-31] MEDS: DIAZEPAM 10 MG TABLET GT SCH ×2 (08:03→21:41)
[2019-01-31] MEDS: LISINOPRIL 10 MG TABLET GT SCH (08:03)
[2019-01-31] MEDS: AMLODIPINE 10 MG TABLET GT SCH (08:03)
[2019-01-31] MEDS: METOPROLOL TARTRATE 50 MG TABLET GT SCH ×2 (08:03→21:41)
[2019-01-31] MEDS: VIMPAT 200 MG GT SCH ×2 (08:03→21:41)
[2019-01-31] MEDS: PHENOBARBITAL 30 MG/7.5 ML LIQUID UDC GT SCH ×2 (08:03→21:46)
[2019-01-31] MEDS: HYDROGEN PEROXIDE 3% 118 ML BOTTLE TP SCH ×3 (08:03→19:01)
[2019-01-31] MEDS: Z GUARD REMEDY PASTE 57 GM TUBE TOP SCH ×2 (08:03→21:47)
[2019-01-31 11:26] VITALS: BP 145/95
[2019-01-31] MEDS: MULTIVIT, IRON, MIN NO. 8, FA TABLET GT SCH (21:46)
[2019-01-31 21:56] VITALS: BP 123/88
[2019-02-01 08:00] VITALS: BP 119/80
[2019-02-01] MEDS: ASPIRIN 81 MG TAB.CHEW GT SCH (08:24)
[2019-02-01] MEDS: LEVETIRACETAM 500 MG/5 ML LIQUID UDC GT SCH ×2 (08:25→20:37)
[2019-02-01] MEDS: VIMPAT 200 MG GT SCH ×2 (08:28→20:38)
[2019-02-01] MEDS: METOPROLOL TARTRATE 50 MG TABLET GT SCH ×2 (08:28→20:38)
[2019-02-01] MEDS: LISINOPRIL 10 MG TABLET GT SCH (08:29)
[2019-02-01] MEDS: PHENOBARBITAL 30 MG/7.5 ML LIQUID UDC GT SCH ×2 (08:29→20:38)
[2019-02-01] MEDS: AMLODIPINE 10 MG TABLET GT SCH (08:29)
[2019-02-01] MEDS: ASCORBIC ACID 500 MG TABLET GT SCH ×2 (08:30→20:39)
[2019-02-01] MEDS: VITAMINS A AND D OINT TP SCH ×2 (08:30→20:40)
[2019-02-01] MEDS: DIAZEPAM 10 MG TABLET GT SCH ×2 (08:30→20:39)
[2019-02-01] MEDS: Z GUARD REMEDY PASTE 57 GM TUBE TOP SCH ×2 (08:30→20:39)
[2019-02-01] MEDS: HYDROGEN PEROXIDE 3% 118 ML BOTTLE TP SCH ×2 (10:20→20:40)
[2019-02-01] MEDS: MULTIVIT, IRON, MIN NO. 8, FA TABLET GT SCH (20:38)
[2019-02-01 22:00] VITALS: BP 151/92
[2019-02-01] MEDS: VITAL AF 1.2 1,000 ML LIQUID GT PRN (22:00)
[2019-02-02 07:29] LABS: BASOPHILS % (AUTO) 0.4 % (0.0-2.0); EOSINOPHILS # (AUTO) 0.1 K/uL (0.0-0.7); EOSINOPHILS % (AUTO) 2.6 % (0.0-7.0); HEMATOCRIT 35.4 % (31.2-41.9); HEMOGLOBIN 11.9 g/dL (10.9-14.3); LYMPHOCYTES # (AUTO) 0.9 K/uL (20.0-40.0); LYMPHOCYTES % (AUTO) 18.4 % (20.5-51.5); MEAN CORPUSCULAR HEMOGLOBIN 30.3 uug (24.7-32.8); MEAN CORPUSCULAR HGB CONC 34 g/dL (32.3-35.6); MEAN CORPUSCULAR VOLUME 90.5 fL (75.5-95.3); MONOCYTES # (AUTO) 0.5 K/uL (2.0-10.0); MONOCYTES % (AUTO) 10.2 % (0.0-11.0); NEUTROPHILS # (AUTO) 3.4 K/uL (1.8-8.9); NEUTROPHILS % (AUTO) 68.4 % (38.5-71.5); PLATELET COUNT (AUTO) 166 K/uL (179-408); RED BLOOD CELL COUNT(AUTO) 3.91 MIL/uL (3.63-4.92); WHITE BLOOD COUNT (AUTO) 4.9 K/uL (3.8-11.8)
[2019-02-02 07:32] LABS: CARBON DIOXIDE 31 mmol/L (21-32); CHLORIDE 108 mmol/L (98-107); CREATININE 0.4 mg/dL (0.6-1.3); GLUCOSE 105 mg/dL (74-106); POTASSIUM 3.9 mmol/L (3.5-5.1); UREA NITROGEN, BLOOD 29 mg/dL (7-18)
[2019-02-02] MEDS: LEVETIRACETAM 500 MG/5 ML LIQUID UDC GT SCH ×2 (08:05→20:45)
[2019-02-02] MEDS: ASPIRIN 81 MG TAB.CHEW GT SCH (08:05)
[2019-02-02] MEDS: METOPROLOL TARTRATE 50 MG TABLET GT SCH ×2 (08:06→20:45)
[2019-02-02] MEDS: VIMPAT 200 MG GT SCH ×2 (08:06→20:45)
[2019-02-02] MEDS: AMLODIPINE 10 MG TABLET GT SCH (08:07)
[2019-02-02] MEDS: Z GUARD REMEDY PASTE 57 GM TUBE TOP SCH ×2 (08:08→20:46)
[2019-02-02] MEDS: ASCORBIC ACID 500 MG TABLET GT SCH ×2 (08:08→20:46)
[2019-02-02] MEDS: PHENOBARBITAL 30 MG/7.5 ML LIQUID UDC GT SCH ×2 (08:08→20:45)
[2019-02-02] MEDS: DIAZEPAM 10 MG TABLET GT SCH ×2 (08:08→20:45)
[2019-02-02] MEDS: LISINOPRIL 10 MG TABLET GT SCH (08:08)
[2019-02-02] MEDS: VITAMINS A AND D OINT TP SCH ×2 (08:08→20:46)
[2019-02-02 08:09] VITALS: BP 130/88
[2019-02-02] MEDS: HYDROGEN PEROXIDE 3% 118 ML BOTTLE TP SCH ×2 (10:00→20:46)
[2019-02-02] MEDS: VITAL AF 1.2 1,000 ML LIQUID GT PRN (18:16)
[2019-02-02 20:16] VITALS: BP 125/86
[2019-02-02] MEDS: MULTIVIT, IRON, MIN NO. 8, FA TABLET GT SCH (22:00)
[2019-02-03 08:00] VITALS: BP 102/71
[2019-02-03] MEDS: LEVETIRACETAM 500 MG/5 ML LIQUID UDC GT SCH ×2 (08:37→21:03)
[2019-02-03] MEDS: ASPIRIN 81 MG TAB.CHEW GT SCH (08:37)
[2019-02-03] MEDS: METOPROLOL TARTRATE 50 MG TABLET GT SCH ×2 (08:38→21:05)
[2019-02-03] MEDS: AMLODIPINE 10 MG TABLET GT SCH (08:38)
[2019-02-03] MEDS: VIMPAT 200 MG GT SCH ×2 (08:38→21:05)
[2019-02-03] MEDS: PHENOBARBITAL 30 MG/7.5 ML LIQUID UDC GT SCH ×2 (08:39→21:07)
[2019-02-03] MEDS: DIAZEPAM 10 MG TABLET GT SCH ×2 (08:39→21:05)
[2019-02-03] MEDS: LISINOPRIL 10 MG TABLET GT SCH (08:39)
[2019-02-03] MEDS: ASCORBIC ACID 500 MG TABLET GT SCH ×2 (08:39→21:09)
[2019-02-03] MEDS: VITAMINS A AND D OINT TP SCH ×2 (08:40→21:10)
[2019-02-03] MEDS: Z GUARD REMEDY PASTE 57 GM TUBE TOP SCH ×2 (08:40→21:10)
[2019-02-03] MEDS: HYDROGEN PEROXIDE 3% 118 ML BOTTLE TP SCH ×2 (09:49→19:27)
[2019-02-03] MEDS: COD LIVER OIL/ZINC OXIDE OINT 113 GM TUBE TP SCH ×2 (19:08)
[2019-02-03 20:00] VITALS: BP 124/85
[2019-02-03] MEDS: MULTIVIT, IRON, MIN NO. 8, FA TABLET GT SCH (21:09)
[2019-02-04] MEDS: VITAL AF 1.2 1,000 ML LIQUID GT PRN ×2 (01:06→18:41)
[2019-02-04 07:59] VITALS: BP 115/73
[2019-02-04] MEDS: LEVETIRACETAM 500 MG/5 ML LIQUID UDC GT SCH ×2 (08:59→21:27)
[2019-02-04] MEDS: ASPIRIN 81 MG TAB.CHEW GT SCH (08:59)
[2019-02-04] MEDS: AMLODIPINE 10 MG TABLET GT SCH (09:00)
[2019-02-04] MEDS: HYDROGEN PEROXIDE 3% 118 ML BOTTLE TP SCH ×2 (09:00→18:57)
[2019-02-04] MEDS: METOPROLOL TARTRATE 50 MG TABLET GT SCH ×2 (09:00→21:28)
[2019-02-04] MEDS: LISINOPRIL 10 MG TABLET GT SCH (09:00)
[2019-02-04] MEDS: VIMPAT 200 MG GT SCH ×2 (09:01→21:29)
[2019-02-04] MEDS: DIAZEPAM 10 MG TABLET GT SCH ×2 (09:03→21:29)
[2019-02-04] MEDS: PHENOBARBITAL 30 MG/7.5 ML LIQUID UDC GT SCH ×2 (09:03→21:36)
[2019-02-04] MEDS: ASCORBIC ACID 500 MG TABLET GT SCH ×2 (09:03→21:36)
[2019-02-04] MEDS: Z GUARD REMEDY PASTE 57 GM TUBE TOP SCH ×2 (09:04→21:37)
[2019-02-04] MEDS: COD LIVER OIL/ZINC OXIDE OINT 113 GM TUBE TP SCH ×2 (09:04)
[2019-02-04] MEDS: VITAMINS A AND D OINT TP SCH ×2 (09:04→21:37)
[2019-02-04] MEDS: MULTIVIT, IRON, MIN NO. 8, FA TABLET GT SCH (21:36)
[2019-02-04 22:00] VITALS: BP 125/86
[2019-02-05] MEDS: LEVETIRACETAM 500 MG/5 ML LIQUID UDC GT SCH ×2 (08:50→21:21)
[2019-02-05] MEDS: ASPIRIN 81 MG TAB.CHEW GT SCH (08:50)
[2019-02-05] MEDS: AMLODIPINE 10 MG TABLET GT SCH (08:51)
[2019-02-05] MEDS: VIMPAT 200 MG GT SCH ×2 (08:51→21:23)
[2019-02-05] MEDS: METOPROLOL TARTRATE 50 MG TABLET GT SCH ×2 (08:51→21:22)
[2019-02-05] MEDS: PHENOBARBITAL 30 MG/7.5 ML LIQUID UDC GT SCH ×2 (08:52→21:28)
[2019-02-05] MEDS: COD LIVER OIL/ZINC OXIDE OINT 113 GM TUBE TP SCH ×2 (08:52)
[2019-02-05] MEDS: DIAZEPAM 10 MG TABLET GT SCH ×2 (08:52→21:23)
[2019-02-05] MEDS: LISINOPRIL 10 MG TABLET GT SCH (08:52)
[2019-02-05] MEDS: ASCORBIC ACID 500 MG TABLET GT SCH ×2 (08:52→21:28)
[2019-02-05] MEDS: VITAMINS A AND D OINT TP SCH ×2 (08:52→21:30)
[2019-02-05] MEDS: HYDROGEN PEROXIDE 3% 118 ML BOTTLE TP SCH ×2 (08:52→18:56)
[2019-02-05] MEDS: Z GUARD REMEDY PASTE 57 GM TUBE TOP SCH ×2 (08:52→21:30)
[2019-02-05 11:45] VITALS: BP 94/61
[2019-02-05] MEDS: VITAL AF 1.2 1,000 ML LIQUID GT PRN (12:10)
[2019-02-05 20:22] VITALS: BP 125/79
[2019-02-05] MEDS: MULTIVIT, IRON, MIN NO. 8, FA TABLET GT SCH (21:28)
[2019-02-06] MEDS: ASPIRIN 81 MG TAB.CHEW GT SCH (08:40)
[2019-02-06] MEDS: LEVETIRACETAM 500 MG/5 ML LIQUID UDC GT SCH ×2 (08:41→21:04)
[2019-02-06] MEDS: METOPROLOL TARTRATE 50 MG TABLET GT SCH ×2 (08:42→21:05)
[2019-02-06] MEDS: AMLODIPINE 10 MG TABLET GT SCH (08:43)
[2019-02-06] MEDS: LISINOPRIL 10 MG TABLET GT SCH (08:44)
[2019-02-06] MEDS: VIMPAT 200 MG GT SCH ×2 (08:44→21:05)
[2019-02-06] MEDS: ASCORBIC ACID 500 MG TABLET GT SCH ×2 (08:45→21:05)
[2019-02-06] MEDS: DIAZEPAM 10 MG TABLET GT SCH ×2 (08:45→21:05)
[2019-02-06] MEDS: Z GUARD REMEDY PASTE 57 GM TUBE TOP SCH ×2 (08:46→21:05)
[2019-02-06] MEDS: COD LIVER OIL/ZINC OXIDE OINT 113 GM TUBE TP SCH ×2 (08:46)
[2019-02-06] MEDS: HYDROGEN PEROXIDE 3% 118 ML BOTTLE TP SCH ×3 (08:46→21:51)
[2019-02-06] MEDS: VITAMINS A AND D OINT TP SCH ×2 (08:46→21:06)
[2019-02-06] MEDS: PHENOBARBITAL 30 MG/7.5 ML LIQUID UDC GT SCH ×2 (08:48→21:05)
[2019-02-06 10:28] VITALS: BP 120/81
[2019-02-06 20:25] VITALS: BP 109/72
[2019-02-06] MEDS: MULTIVIT, IRON, MIN NO. 8, FA TABLET GT SCH (21:05)
[2019-02-06] MEDS: VITAL AF 1.2 1,000 ML LIQUID GT PRN (22:00)
[2019-02-07] MEDS: LEVETIRACETAM 500 MG/5 ML LIQUID UDC GT SCH ×2 (08:39→20:37)
[2019-02-07] MEDS: ASPIRIN 81 MG TAB.CHEW GT SCH (08:39)
[2019-02-07] MEDS: METOPROLOL TARTRATE 50 MG TABLET GT SCH ×2 (08:40→20:37)
[2019-02-07] MEDS: AMLODIPINE 10 MG TABLET GT SCH (08:40)
[2019-02-07] MEDS: VIMPAT 200 MG GT SCH ×2 (08:40→20:37)
[2019-02-07] MEDS: PHENOBARBITAL 30 MG/7.5 ML LIQUID UDC GT SCH ×2 (08:42→20:37)
[2019-02-07] MEDS: LISINOPRIL 10 MG TABLET GT SCH (08:42)
[2019-02-07] MEDS: DIAZEPAM 10 MG TABLET GT SCH ×2 (08:43→20:38)
[2019-02-07] MEDS: Z GUARD REMEDY PASTE 57 GM TUBE TOP SCH ×2 (08:43→20:38)
[2019-02-07] MEDS: VITAMINS A AND D OINT TP SCH ×2 (08:43→20:38)
[2019-02-07] MEDS: ASCORBIC ACID 500 MG TABLET GT SCH ×2 (08:43→20:38)
[2019-02-07] MEDS: COD LIVER OIL/ZINC OXIDE OINT 113 GM TUBE TP SCH ×2 (08:43)
[2019-02-07] MEDS: HYDROGEN PEROXIDE 3% 118 ML BOTTLE TP SCH ×2 (09:00→21:17)
[2019-02-07 11:04] VITALS: BP 108/65
[2019-02-07] MEDS: VITAL AF 1.2 1,000 ML LIQUID GT PRN (16:04)
[2019-02-07] MEDS: MULTIVIT, IRON, MIN NO. 8, FA TABLET GT SCH (20:37)
[2019-02-07 21:51] VITALS: BP 140/88
[2019-02-08] MEDS: VITAL AF 1.2 1,000 ML LIQUID GT PRN ×2 (07:00→18:45)
[2019-02-08 08:00] VITALS: BP 90/59
[2019-02-08] MEDS: LISINOPRIL 10 MG TABLET GT SCH (09:00)
[2019-02-08] MEDS: AMLODIPINE 10 MG TABLET GT SCH (09:00)
[2019-02-08] MEDS: METOPROLOL TARTRATE 50 MG TABLET GT SCH ×2 (09:00→20:21)
[2019-02-08] MEDS: HYDROGEN PEROXIDE 3% 118 ML BOTTLE TP SCH ×2 (09:00→19:06)
[2019-02-08] MEDS: ASPIRIN 81 MG TAB.CHEW GT SCH (09:18)
[2019-02-08] MEDS: LEVETIRACETAM 500 MG/5 ML LIQUID UDC GT SCH ×2 (09:19→20:20)
[2019-02-08] MEDS: VIMPAT 200 MG GT SCH ×2 (09:25→20:22)
[2019-02-08] MEDS: DIAZEPAM 10 MG TABLET GT SCH ×2 (09:26→20:22)
[2019-02-08] MEDS: COD LIVER OIL/ZINC OXIDE OINT 113 GM TUBE TP SCH ×2 (09:27)
[2019-02-08] MEDS: VITAMINS A AND D OINT TP SCH ×2 (09:27→20:27)
[2019-02-08] MEDS: Z GUARD REMEDY PASTE 57 GM TUBE TOP SCH ×2 (09:27→20:27)
[2019-02-08] MEDS: ASCORBIC ACID 500 MG TABLET GT SCH ×2 (09:27→20:27)
[2019-02-08] MEDS: PHENOBARBITAL 30 MG/7.5 ML LIQUID UDC GT SCH ×2 (09:34→20:22)
[2019-02-08] MEDS: MULTIVIT, IRON, MIN NO. 8, FA TABLET GT SCH (20:22)
[2019-02-08 22:21] VITALS: BP 165/100
[2019-02-09 08:16] VITALS: BP 142/91
[2019-02-09] MEDS: ASPIRIN 81 MG TAB.CHEW GT SCH (08:30)
[2019-02-09] MEDS: VIMPAT 200 MG GT SCH ×2 (08:31→20:39)
[2019-02-09] MEDS: METOPROLOL TARTRATE 50 MG TABLET GT SCH ×2 (08:31→20:35)
[2019-02-09] MEDS: LEVETIRACETAM 500 MG/5 ML LIQUID UDC GT SCH ×2 (08:31→20:34)
[2019-02-09] MEDS: AMLODIPINE 10 MG TABLET GT SCH (08:31)
[2019-02-09] MEDS: PHENOBARBITAL 30 MG/7.5 ML LIQUID UDC GT SCH ×2 (08:35→20:39)
[2019-02-09] MEDS: LISINOPRIL 10 MG TABLET GT SCH (08:35)
[2019-02-09] MEDS: VITAMINS A AND D OINT TP SCH ×2 (08:36→20:43)
[2019-02-09] MEDS: ASCORBIC ACID 500 MG TABLET GT SCH ×2 (08:36→20:42)
[2019-02-09] MEDS: Z GUARD REMEDY PASTE 57 GM TUBE TOP SCH ×2 (08:36→20:42)
[2019-02-09] MEDS: DIAZEPAM 10 MG TABLET GT SCH ×2 (08:36→20:42)
[2019-02-09] MEDS: COD LIVER OIL/ZINC OXIDE OINT 113 GM TUBE TP SCH ×2 (08:36)
[2019-02-09] MEDS: HYDROGEN PEROXIDE 3% 118 ML BOTTLE TP SCH ×2 (09:23→21:15)
[2019-02-09 20:02] VITALS: BP 138/87
[2019-02-09] MEDS: MULTIVIT, IRON, MIN NO. 8, FA TABLET GT SCH (20:42)
[2019-02-10] MEDS: VITAL AF 1.2 1,000 ML LIQUID GT PRN (06:29)
[2019-02-10 06:44] LABS: BASOPHILS % (AUTO) 0.4 % (0.0-2.0); EOSINOPHILS # (AUTO) 0.1 K/uL (0.0-0.7); EOSINOPHILS % (AUTO) 2.8 % (0.0-7.0); LYMPHOCYTES # (AUTO) 1.1 K/uL (20.0-40.0); LYMPHOCYTES % (AUTO) 21.9 % (20.5-51.5); MEAN CORPUSCULAR HEMOGLOBIN 30.6 uug (24.7-32.8); MEAN CORPUSCULAR HGB CONC 34 g/dL (32.3-35.6); MEAN CORPUSCULAR VOLUME 89.4 fL (75.5-95.3); MONOCYTES # (AUTO) 0.5 K/uL (2.0-10.0); MONOCYTES % (AUTO) 9.6 % (0.0-11.0); NEUTROPHILS # (AUTO) 3.3 K/uL (1.8-8.9); NEUTROPHILS % (AUTO) 65.3 % (38.5-71.5); PLATELET COUNT (AUTO) 178 K/uL (179-408); RED BLOOD CELL COUNT(AUTO) 3.58 MIL/uL (3.63-4.92); WHITE BLOOD COUNT (AUTO) 5.1 K/uL (3.8-11.8)
[2019-02-10 07:28] LABS: CARBON DIOXIDE 32 mmol/L (21-32); CHLORIDE 107 mmol/L (98-107); CREATININE 0.3 mg/dL (0.6-1.3); GLUCOSE 101 mg/dL (74-106); POTASSIUM 4.2 mmol/L (3.5-5.1); UREA NITROGEN, BLOOD 22 mg/dL (7-18)
[2019-02-10 08:00] VITALS: BP 99/64
[2019-02-10] MEDS: ASPIRIN 81 MG TAB.CHEW GT SCH (08:39)
[2019-02-10] MEDS: LEVETIRACETAM 500 MG/5 ML LIQUID UDC GT SCH ×2 (08:39→20:40)
[2019-02-10] MEDS: AMLODIPINE 10 MG TABLET GT SCH (08:40)
[2019-02-10] MEDS: PHENOBARBITAL 30 MG/7.5 ML LIQUID UDC GT SCH ×2 (08:40→20:40)
[2019-02-10] MEDS: LISINOPRIL 10 MG TABLET GT SCH (08:40)
[2019-02-10] MEDS: METOPROLOL TARTRATE 50 MG TABLET GT SCH ×2 (08:40→20:40)
[2019-02-10] MEDS: VIMPAT 200 MG GT SCH ×2 (08:40→20:40)
[2019-02-10] MEDS: VITAMINS A AND D OINT TP SCH ×2 (08:41→20:41)
[2019-02-10] MEDS: DIAZEPAM 10 MG TABLET GT SCH ×2 (08:41→20:41)
[2019-02-10] MEDS: COD LIVER OIL/ZINC OXIDE OINT 113 GM TUBE TP SCH ×2 (08:41)
[2019-02-10] MEDS: Z GUARD REMEDY PASTE 57 GM TUBE TOP SCH ×2 (08:41→20:41)
[2019-02-10] MEDS: ASCORBIC ACID 500 MG TABLET GT SCH ×2 (08:41→20:41)
[2019-02-10] MEDS: HYDROGEN PEROXIDE 3% 118 ML BOTTLE TP SCH ×2 (09:21→20:42)
[2019-02-10 20:00] VITALS: BP 138/87
[2019-02-10] MEDS: MULTIVIT, IRON, MIN NO. 8, FA TABLET GT SCH (20:41)
[2019-02-11] MEDS: METOPROLOL TARTRATE 50 MG TABLET GT SCH ×2 (08:13→20:20)
[2019-02-11] MEDS: LEVETIRACETAM 500 MG/5 ML LIQUID UDC GT SCH ×2 (08:13→20:10)
[2019-02-11] MEDS: ASPIRIN 81 MG TAB.CHEW GT SCH (08:13)
[2019-02-11] MEDS: PHENOBARBITAL 30 MG/7.5 ML LIQUID UDC GT SCH ×2 (08:14→20:18)
[2019-02-11] MEDS: DIAZEPAM 10 MG TABLET GT SCH ×2 (08:14→20:18)
[2019-02-11] MEDS: COD LIVER OIL/ZINC OXIDE OINT 113 GM TUBE TP SCH ×2 (08:14)
[2019-02-11] MEDS: VITAMINS A AND D OINT TP SCH ×2 (08:14→20:13)
[2019-02-11] MEDS: Z GUARD REMEDY PASTE 57 GM TUBE TOP SCH ×2 (08:14→20:13)
[2019-02-11] MEDS: VIMPAT 200 MG GT SCH ×2 (08:14→20:19)
[2019-02-11] MEDS: ASCORBIC ACID 500 MG TABLET GT SCH ×2 (08:14→20:12)
[2019-02-11] MEDS: LISINOPRIL 10 MG TABLET GT SCH (08:14)
[2019-02-11] MEDS: AMLODIPINE 10 MG TABLET GT SCH (08:14)
[2019-02-11] MEDS: HYDROGEN PEROXIDE 3% 118 ML BOTTLE TP SCH ×2 (08:46→19:11)
[2019-02-11 10:34] VITALS: BP 122/84
[2019-02-11 20:00] VITALS: BP 131/83
[2019-02-11] MEDS: MULTIVIT, IRON, MIN NO. 8, FA TABLET GT SCH (20:12)
[2019-02-12] MEDS: ASPIRIN 81 MG TAB.CHEW GT SCH (08:31)
[2019-02-12] MEDS: LEVETIRACETAM 500 MG/5 ML LIQUID UDC GT SCH ×2 (08:32→21:09)
[2019-02-12] MEDS: METOPROLOL TARTRATE 50 MG TABLET GT SCH ×2 (08:36→21:10)
[2019-02-12] MEDS: AMLODIPINE 10 MG TABLET GT SCH (08:37)
[2019-02-12] MEDS: VIMPAT 200 MG GT SCH ×2 (08:37→21:11)
[2019-02-12] MEDS: PHENOBARBITAL 30 MG/7.5 ML LIQUID UDC GT SCH ×2 (08:38→21:12)
[2019-02-12] MEDS: DIAZEPAM 10 MG TABLET GT SCH ×2 (08:39→21:11)
[2019-02-12] MEDS: ASCORBIC ACID 500 MG TABLET GT SCH ×2 (08:39→21:15)
[2019-02-12] MEDS: LISINOPRIL 10 MG TABLET GT SCH (08:39)
[2019-02-12] MEDS: Z GUARD REMEDY PASTE 57 GM TUBE TOP SCH ×2 (08:40→21:15)
[2019-02-12] MEDS: VITAMINS A AND D OINT TP SCH ×2 (08:40→21:15)
[2019-02-12] MEDS: COD LIVER OIL/ZINC OXIDE OINT 113 GM TUBE TP SCH ×2 (08:40)
[2019-02-12] MEDS: VITAL AF 1.2 1,000 ML LIQUID GT PRN (09:16)
[2019-02-12] MEDS: HYDROGEN PEROXIDE 3% 118 ML BOTTLE TP SCH ×2 (09:18→19:13)
[2019-02-12 11:11] VITALS: BP 100/67
[2019-02-12 20:00] VITALS: BP 143/88
[2019-02-12] MEDS: MULTIVIT, IRON, MIN NO. 8, FA TABLET GT SCH (21:14)
[2019-02-13] MEDS: VITAL AF 1.2 1,000 ML LIQUID GT PRN ×2 (00:52→17:43)
[2019-02-13] MEDS: LEVETIRACETAM 500 MG/5 ML LIQUID UDC GT SCH ×2 (08:31→21:17)
[2019-02-13] MEDS: ASPIRIN 81 MG TAB.CHEW GT SCH (08:31)
[2019-02-13] MEDS: VIMPAT 200 MG GT SCH ×2 (08:32→21:21)
[2019-02-13] MEDS: METOPROLOL TARTRATE 50 MG TABLET GT SCH ×2 (08:32→21:18)
[2019-02-13] MEDS: AMLODIPINE 10 MG TABLET GT SCH (08:33)
[2019-02-13] MEDS: PHENOBARBITAL 30 MG/7.5 ML LIQUID UDC GT SCH ×2 (08:35→21:21)
[2019-02-13] MEDS: LISINOPRIL 10 MG TABLET GT SCH (08:35)
[2019-02-13] MEDS: Z GUARD REMEDY PASTE 57 GM TUBE TOP SCH ×2 (08:37→21:25)
[2019-02-13] MEDS: DIAZEPAM 10 MG TABLET GT SCH ×2 (08:37→21:19)
[2019-02-13] MEDS: VITAMINS A AND D OINT TP SCH ×2 (08:37→21:25)
[2019-02-13] MEDS: COD LIVER OIL/ZINC OXIDE OINT 113 GM TUBE TP SCH ×2 (08:37)
[2019-02-13] MEDS: ASCORBIC ACID 500 MG TABLET GT SCH ×2 (08:37→21:24)
[2019-02-13] MEDS: HYDROGEN PEROXIDE 3% 118 ML BOTTLE TP SCH ×2 (09:00→21:43)
[2019-02-13 10:49] VITALS: BP 127/74
[2019-02-13 20:00] VITALS: BP 126/85
[2019-02-13] MEDS: MULTIVIT, IRON, MIN NO. 8, FA TABLET GT SCH (21:24)
[2019-02-14 08:00] VITALS: BP 118/79
[2019-02-14] MEDS: DIAZEPAM 10 MG TABLET GT SCH ×2 (08:35→20:29)
[2019-02-14] MEDS: VIMPAT 200 MG GT SCH ×2 (08:35→20:29)
[2019-02-14] MEDS: ASPIRIN 81 MG TAB.CHEW GT SCH (08:35)
[2019-02-14] MEDS: PHENOBARBITAL 30 MG/7.5 ML LIQUID UDC GT SCH ×2 (08:35→20:29)
[2019-02-14] MEDS: LEVETIRACETAM 500 MG/5 ML LIQUID UDC GT SCH ×2 (08:35→20:28)
[2019-02-14] MEDS: METOPROLOL TARTRATE 50 MG TABLET GT SCH ×2 (08:36→20:29)
[2019-02-14] MEDS: AMLODIPINE 10 MG TABLET GT SCH (08:39)
[2019-02-14] MEDS: LISINOPRIL 10 MG TABLET GT SCH (08:39)
[2019-02-14] MEDS: Z GUARD REMEDY PASTE 57 GM TUBE TOP SCH ×2 (08:40→20:29)
[2019-02-14] MEDS: COD LIVER OIL/ZINC OXIDE OINT 113 GM TUBE TP SCH ×2 (08:40)
[2019-02-14] MEDS: VITAMINS A AND D OINT TP SCH ×2 (08:40→20:29)
[2019-02-14] MEDS: ASCORBIC ACID 500 MG TABLET GT SCH ×2 (08:40→20:29)
[2019-02-14] MEDS: HYDROGEN PEROXIDE 3% 118 ML BOTTLE TP SCH ×2 (08:46→20:29)
[2019-02-14] MEDS: VITAL AF 1.2 1,000 ML LIQUID GT PRN (13:01)
[2019-02-14] MEDS: MULTIVIT, IRON, MIN NO. 8, FA TABLET GT SCH (20:29)
[2019-02-14 20:45] VITALS: BP 132/90
[2019-02-15] MEDS: VITAL AF 1.2 1,000 ML LIQUID GT PRN ×2 (05:13→21:21)
[2019-02-15 07:59] VITALS: BP 105/67
[2019-02-15] MEDS: METOPROLOL TARTRATE 50 MG TABLET GT SCH ×2 (08:29→20:07)
[2019-02-15] MEDS: ASPIRIN 81 MG TAB.CHEW GT SCH (08:29)
[2019-02-15] MEDS: LEVETIRACETAM 500 MG/5 ML LIQUID UDC GT SCH ×2 (08:29→20:07)
[2019-02-15] MEDS: COD LIVER OIL/ZINC OXIDE OINT 113 GM TUBE TP SCH ×2 (08:30)
[2019-02-15] MEDS: DIAZEPAM 10 MG TABLET GT SCH ×2 (08:30→20:07)
[2019-02-15] MEDS: LISINOPRIL 10 MG TABLET GT SCH (08:30)
[2019-02-15] MEDS: VIMPAT 200 MG GT SCH ×2 (08:30→20:07)
[2019-02-15] MEDS: PHENOBARBITAL 30 MG/7.5 ML LIQUID UDC GT SCH ×2 (08:30→20:07)
[2019-02-15] MEDS: VITAMINS A AND D OINT TP SCH ×2 (08:30→20:08)
[2019-02-15] MEDS: ASCORBIC ACID 500 MG TABLET GT SCH ×2 (08:30→20:07)
[2019-02-15] MEDS: Z GUARD REMEDY PASTE 57 GM TUBE TOP SCH ×2 (08:30→20:07)
[2019-02-15] MEDS: AMLODIPINE 10 MG TABLET GT SCH (08:31)
[2019-02-15] MEDS: HYDROGEN PEROXIDE 3% 118 ML BOTTLE TP SCH ×2 (09:05→19:05)
[2019-02-15] MEDS: MULTIVIT, IRON, MIN NO. 8, FA TABLET GT SCH (20:07)
[2019-02-15 20:34] VITALS: BP 122/83
[2019-02-16 08:06] VITALS: BP 120/79
[2019-02-16] MEDS: ASPIRIN 81 MG TAB.CHEW GT SCH (08:23)
[2019-02-16] MEDS: METOPROLOL TARTRATE 50 MG TABLET GT SCH ×2 (08:36→20:54)
[2019-02-16] MEDS: VIMPAT 200 MG GT SCH ×2 (08:36→20:55)
[2019-02-16] MEDS: LEVETIRACETAM 500 MG/5 ML LIQUID UDC GT SCH ×2 (08:36→20:53)
[2019-02-16] MEDS: AMLODIPINE 10 MG TABLET GT SCH (08:38)
[2019-02-16] MEDS: LISINOPRIL 10 MG TABLET GT SCH (08:38)
[2019-02-16] MEDS: DIAZEPAM 10 MG TABLET GT SCH ×2 (08:38→20:55)
[2019-02-16] MEDS: PHENOBARBITAL 30 MG/7.5 ML LIQUID UDC GT SCH ×2 (08:38→20:53)
[2019-02-16] MEDS: COD LIVER OIL/ZINC OXIDE OINT 113 GM TUBE TP SCH ×2 (08:39)
[2019-02-16] MEDS: VITAMINS A AND D OINT TP SCH ×2 (08:39→20:56)
[2019-02-16] MEDS: ASCORBIC ACID 500 MG TABLET GT SCH ×2 (08:39→20:55)
[2019-02-16] MEDS: Z GUARD REMEDY PASTE 57 GM TUBE TOP SCH ×2 (08:39→20:55)
[2019-02-16] MEDS: HYDROGEN PEROXIDE 3% 118 ML BOTTLE TP SCH ×2 (09:00→20:55)
[2019-02-16 20:33] VITALS: BP 107/72
[2019-02-16] MEDS: MULTIVIT, IRON, MIN NO. 8, FA TABLET GT SCH (20:55)
[2019-02-17] MEDS: VITAL AF 1.2 1,000 ML LIQUID GT PRN ×2 (05:00→18:02)
[2019-02-17 08:09] VITALS: BP 136/91
[2019-02-17] MEDS: HYDROGEN PEROXIDE 3% 118 ML BOTTLE TP SCH ×2 (08:44→20:26)
[2019-02-17] MEDS: ASPIRIN 81 MG TAB.CHEW GT SCH (09:38)
[2019-02-17] MEDS: LEVETIRACETAM 500 MG/5 ML LIQUID UDC GT SCH ×2 (09:39→20:34)
[2019-02-17] MEDS: METOPROLOL TARTRATE 50 MG TABLET GT SCH ×2 (09:39→20:34)
[2019-02-17] MEDS: VIMPAT 200 MG GT SCH ×2 (09:40→20:34)
[2019-02-17] MEDS: LISINOPRIL 10 MG TABLET GT SCH (10:00)
[2019-02-17] MEDS: Z GUARD REMEDY PASTE 57 GM TUBE TOP SCH ×2 (10:00→20:36)
[2019-02-17] MEDS: AMLODIPINE 10 MG TABLET GT SCH (10:00)
[2019-02-17] MEDS: ASCORBIC ACID 500 MG TABLET GT SCH ×2 (10:00→20:36)
[2019-02-17] MEDS: DIAZEPAM 10 MG TABLET GT SCH ×2 (10:00→20:36)
[2019-02-17] MEDS: COD LIVER OIL/ZINC OXIDE OINT 113 GM TUBE TP SCH ×2 (10:00)
[2019-02-17] MEDS: PHENOBARBITAL 30 MG/7.5 ML LIQUID UDC GT SCH ×2 (10:00→20:34)
[2019-02-17] MEDS: VITAMINS A AND D OINT TP SCH ×2 (10:00→20:36)
[2019-02-17 20:11] VITALS: BP 114/78
[2019-02-17] MEDS: MULTIVIT, IRON, MIN NO. 8, FA TABLET GT SCH (20:34)
[2019-02-18 08:03] VITALS: BP 96/63
[2019-02-18] MEDS: HYDROGEN PEROXIDE 3% 118 ML BOTTLE TP SCH ×2 (08:41→20:34)
[2019-02-18] MEDS: LISINOPRIL 10 MG TABLET GT SCH (08:45)
[2019-02-18] MEDS: VIMPAT 200 MG GT SCH ×2 (08:45→20:34)
[2019-02-18] MEDS: METOPROLOL TARTRATE 50 MG TABLET GT SCH ×2 (08:45→20:33)
[2019-02-18] MEDS: ASPIRIN 81 MG TAB.CHEW GT SCH (08:45)
[2019-02-18] MEDS: LEVETIRACETAM 500 MG/5 ML LIQUID UDC GT SCH ×2 (08:45→20:33)
[2019-02-18] MEDS: AMLODIPINE 10 MG TABLET GT SCH (08:45)
[2019-02-18] MEDS: PHENOBARBITAL 30 MG/7.5 ML LIQUID UDC GT SCH ×2 (08:45→20:34)
[2019-02-18] MEDS: ASCORBIC ACID 500 MG TABLET GT SCH ×2 (08:46→20:34)
[2019-02-18] MEDS: COD LIVER OIL/ZINC OXIDE OINT 113 GM TUBE TP SCH ×2 (08:46)
[2019-02-18] MEDS: Z GUARD REMEDY PASTE 57 GM TUBE TOP SCH ×2 (08:46→20:34)
[2019-02-18] MEDS: DIAZEPAM 10 MG TABLET GT SCH ×2 (08:46→20:34)
[2019-02-18] MEDS: VITAMINS A AND D OINT TP SCH ×2 (08:46→20:34)
[2019-02-18] MEDS: VITAL AF 1.2 1,000 ML LIQUID GT PRN (11:52)
[2019-02-18 20:05] VITALS: BP 117/73
[2019-02-18] MEDS: MULTIVIT, IRON, MIN NO. 8, FA TABLET GT SCH (20:34)
[2019-02-19] MEDS: VITAL AF 1.2 1,000 ML LIQUID GT PRN (00:26)
[2019-02-19] MEDS: ASPIRIN 81 MG TAB.CHEW GT SCH (08:45)
[2019-02-19] MEDS: LEVETIRACETAM 500 MG/5 ML LIQUID UDC GT SCH ×2 (08:45→21:15)
[2019-02-19] MEDS: VIMPAT 200 MG GT SCH ×2 (08:46→21:15)
[2019-02-19] MEDS: METOPROLOL TARTRATE 50 MG TABLET GT SCH ×2 (08:46→21:15)
[2019-02-19] MEDS: PHENOBARBITAL 30 MG/7.5 ML LIQUID UDC GT SCH ×2 (08:47→21:16)
[2019-02-19] MEDS: AMLODIPINE 10 MG TABLET GT SCH (08:47)
[2019-02-19] MEDS: Z GUARD REMEDY PASTE 57 GM TUBE TOP SCH ×2 (08:48→21:21)
[2019-02-19] MEDS: COD LIVER OIL/ZINC OXIDE OINT 113 GM TUBE TP SCH ×2 (08:48)
[2019-02-19] MEDS: VITAMINS A AND D OINT TP SCH ×2 (08:48→21:21)
[2019-02-19] MEDS: LISINOPRIL 10 MG TABLET GT SCH (08:48)
[2019-02-19] MEDS: DIAZEPAM 10 MG TABLET GT SCH ×2 (08:48→21:21)
[2019-02-19] MEDS: ASCORBIC ACID 500 MG TABLET GT SCH ×2 (08:48→21:21)
[2019-02-19] MEDS: HYDROGEN PEROXIDE 3% 118 ML BOTTLE TP SCH ×2 (09:01→19:05)
[2019-02-19 11:17] VITALS: BP 106/70
[2019-02-19 20:40] VITALS: BP 133/88
[2019-02-19] MEDS: MULTIVIT, IRON, MIN NO. 8, FA TABLET GT SCH (21:20)
[2019-02-20] MEDS: HYDROGEN PEROXIDE 3% 118 ML BOTTLE TP SCH ×2 (09:00→19:05)
[2019-02-20] MEDS: LISINOPRIL 10 MG TABLET GT SCH (09:00)
[2019-02-20] MEDS: ASPIRIN 81 MG TAB.CHEW GT SCH (09:00)
[2019-02-20] MEDS: LEVETIRACETAM 500 MG/5 ML LIQUID UDC GT SCH ×2 (09:00→21:05)
[2019-02-20] MEDS: AMLODIPINE 10 MG TABLET GT SCH (09:00)
[2019-02-20] MEDS: METOPROLOL TARTRATE 50 MG TABLET GT SCH ×2 (09:00→21:05)
[2019-02-20] MEDS: COD LIVER OIL/ZINC OXIDE OINT 113 GM TUBE TP SCH ×2 (09:01)
[2019-02-20] MEDS: Z GUARD REMEDY PASTE 57 GM TUBE TOP SCH ×2 (09:01→21:11)
[2019-02-20] MEDS: ASCORBIC ACID 500 MG TABLET GT SCH ×2 (09:01→21:11)
[2019-02-20] MEDS: PHENOBARBITAL 30 MG/7.5 ML LIQUID UDC GT SCH ×2 (09:01→21:10)
[2019-02-20] MEDS: DIAZEPAM 10 MG TABLET GT SCH ×2 (09:01→21:11)
[2019-02-20] MEDS: VITAMINS A AND D OINT TP SCH ×2 (09:01→21:11)
[2019-02-20] MEDS: VIMPAT 200 MG GT SCH ×2 (09:01→21:06)
[2019-02-20 10:38] VITALS: BP 117/72
[2019-02-20 20:11] VITALS: BP 143/93
[2019-02-20] MEDS: MULTIVIT, IRON, MIN NO. 8, FA TABLET GT SCH (21:10)
[2019-02-20] MEDS: VITAL AF 1.2 1,000 ML LIQUID GT PRN (22:45)
[2019-02-21] MEDS: HYDROGEN PEROXIDE 3% 118 ML BOTTLE TP SCH ×2 (07:32→21:15)
[2019-02-21] MEDS: LEVETIRACETAM 500 MG/5 ML LIQUID UDC GT SCH ×2 (09:04→21:20)
[2019-02-21] MEDS: ASPIRIN 81 MG TAB.CHEW GT SCH (09:04)
[2019-02-21] MEDS: METOPROLOL TARTRATE 50 MG TABLET GT SCH ×2 (09:04→21:21)
[2019-02-21] MEDS: VIMPAT 200 MG GT SCH ×2 (09:05→21:22)
[2019-02-21] MEDS: PHENOBARBITAL 30 MG/7.5 ML LIQUID UDC GT SCH ×2 (09:05→21:27)
[2019-02-21] MEDS: AMLODIPINE 10 MG TABLET GT SCH (09:05)
[2019-02-21] MEDS: ASCORBIC ACID 500 MG TABLET GT SCH ×2 (09:06→21:29)
[2019-02-21] MEDS: DIAZEPAM 10 MG TABLET GT SCH ×2 (09:06→21:29)
[2019-02-21] MEDS: LISINOPRIL 10 MG TABLET GT SCH (09:06)
[2019-02-21] MEDS: COD LIVER OIL/ZINC OXIDE OINT 113 GM TUBE TP SCH ×2 (09:07)
[2019-02-21] MEDS: Z GUARD REMEDY PASTE 57 GM TUBE TOP SCH ×2 (09:07→21:29)
[2019-02-21] MEDS: VITAMINS A AND D OINT TP SCH ×2 (09:07→21:29)
[2019-02-21 09:11] VITALS: BP 132/83
[2019-02-21] MEDS: VITAL AF 1.2 1,000 ML LIQUID GT PRN (13:09)
[2019-02-21 19:52] VITALS: BP 120/81
[2019-02-21] MEDS: MULTIVIT, IRON, MIN NO. 8, FA TABLET GT SCH (21:27)
[2019-02-22] MEDS: HYDROGEN PEROXIDE 3% 118 ML BOTTLE TP SCH ×2 (07:45→20:20)
[2019-02-22 08:05] VITALS: BP 110/73
[2019-02-22] MEDS: ASPIRIN 81 MG TAB.CHEW GT SCH (08:29)
[2019-02-22] MEDS: LEVETIRACETAM 500 MG/5 ML LIQUID UDC GT SCH ×2 (08:30→20:19)
[2019-02-22] MEDS: METOPROLOL TARTRATE 50 MG TABLET GT SCH ×2 (08:30→20:19)
[2019-02-22] MEDS: AMLODIPINE 10 MG TABLET GT SCH (08:31)
[2019-02-22] MEDS: PHENOBARBITAL 30 MG/7.5 ML LIQUID UDC GT SCH ×2 (08:35→20:20)
[2019-02-22] MEDS: LISINOPRIL 10 MG TABLET GT SCH (08:35)
[2019-02-22] MEDS: DIAZEPAM 10 MG TABLET GT SCH ×2 (08:36→20:20)
[2019-02-22] MEDS: ASCORBIC ACID 500 MG TABLET GT SCH ×2 (08:36→20:20)
[2019-02-22] MEDS: COD LIVER OIL/ZINC OXIDE OINT 113 GM TUBE TP SCH ×2 (08:37→08:38)
[2019-02-22] MEDS: VITAMINS A AND D OINT TP SCH ×2 (08:38→20:20)
[2019-02-22] MEDS: VIMPAT 200 MG GT SCH ×2 (08:44→20:20)
[2019-02-22] MEDS: Z GUARD REMEDY PASTE 57 GM TUBE TOP SCH ×2 (09:47→20:20)
[2019-02-22] MEDS: MULTIVIT, IRON, MIN NO. 8, FA TABLET GT SCH (20:20)
[2019-02-22 20:28] VITALS: BP 112/72
[2019-02-23 08:00] VITALS: BP 111/79
[2019-02-23] MEDS: VIMPAT 200 MG GT SCH ×2 (08:53→21:30)
[2019-02-23] MEDS: ASPIRIN 81 MG TAB.CHEW GT SCH (08:53)
[2019-02-23] MEDS: LEVETIRACETAM 500 MG/5 ML LIQUID UDC GT SCH ×2 (08:53→21:28)
[2019-02-23] MEDS: METOPROLOL TARTRATE 50 MG TABLET GT SCH ×2 (08:53→21:00)
[2019-02-23] MEDS: AMLODIPINE 10 MG TABLET GT SCH (08:53)
[2019-02-23] MEDS: COD LIVER OIL/ZINC OXIDE OINT 113 GM TUBE TP SCH ×2 (08:54)
[2019-02-23] MEDS: VITAMINS A AND D OINT TP SCH ×2 (08:54→21:35)
[2019-02-23] MEDS: ASCORBIC ACID 500 MG TABLET GT SCH ×2 (08:54→21:35)
[2019-02-23] MEDS: DIAZEPAM 10 MG TABLET GT SCH ×2 (08:54→21:30)
[2019-02-23] MEDS: PHENOBARBITAL 30 MG/7.5 ML LIQUID UDC GT SCH ×2 (08:54→21:31)
[2019-02-23] MEDS: Z GUARD REMEDY PASTE 57 GM TUBE TOP SCH ×2 (08:54→21:35)
[2019-02-23] MEDS: LISINOPRIL 10 MG TABLET GT SCH (08:54)
[2019-02-23] MEDS: HYDROGEN PEROXIDE 3% 118 ML BOTTLE TP SCH ×2 (09:01→19:06)
[2019-02-23 20:09] VITALS: BP 113/78
[2019-02-23] MEDS: MULTIVIT, IRON, MIN NO. 8, FA TABLET GT SCH (21:35)
[2019-02-24 08:16] VITALS: BP 123/77
[2019-02-24] MEDS: HYDROGEN PEROXIDE 3% 118 ML BOTTLE TP SCH ×2 (09:00→20:13)
[2019-02-24] MEDS: LEVETIRACETAM 500 MG/5 ML LIQUID UDC GT SCH ×2 (09:17→20:28)
[2019-02-24] MEDS: ASPIRIN 81 MG TAB.CHEW GT SCH (09:17)
[2019-02-24] MEDS: VIMPAT 200 MG GT SCH ×2 (09:18→20:28)
[2019-02-24] MEDS: DIAZEPAM 10 MG TABLET GT SCH ×2 (09:18→20:28)
[2019-02-24] MEDS: PHENOBARBITAL 30 MG/7.5 ML LIQUID UDC GT SCH ×2 (09:18→20:28)
[2019-02-24] MEDS: AMLODIPINE 10 MG TABLET GT SCH (09:21)
[2019-02-24] MEDS: METOPROLOL TARTRATE 50 MG TABLET GT SCH ×2 (09:21→20:28)
[2019-02-24] MEDS: LISINOPRIL 10 MG TABLET GT SCH (09:22)
[2019-02-24] MEDS: ASCORBIC ACID 500 MG TABLET GT SCH ×2 (09:23→20:29)
[2019-02-24] MEDS: VITAMINS A AND D OINT TP SCH ×2 (09:25→20:29)
[2019-02-24] MEDS: COD LIVER OIL/ZINC OXIDE OINT 113 GM TUBE TP SCH ×2 (09:25)
[2019-02-24] MEDS: Z GUARD REMEDY PASTE 57 GM TUBE TOP SCH ×2 (09:25→20:29)
[2019-02-24 20:06] VITALS: BP 99/57
[2019-02-24] MEDS: MULTIVIT, IRON, MIN NO. 8, FA TABLET GT SCH (20:28)
[2019-02-24] MEDS: VITAL AF 1.2 1,000 ML LIQUID GT PRN (21:05)
[2019-02-25] MEDS: HYDROGEN PEROXIDE 3% 118 ML BOTTLE TP PRN (07:09)
[2019-02-25 08:00] VITALS: BP 97/57
[2019-02-25] MEDS: LEVETIRACETAM 500 MG/5 ML LIQUID UDC GT SCH ×2 (08:12→20:33)
[2019-02-25] MEDS: ASPIRIN 81 MG TAB.CHEW GT SCH (08:12)
[2019-02-25] MEDS: METOPROLOL TARTRATE 50 MG TABLET GT SCH ×2 (08:13→20:33)
[2019-02-25] MEDS: AMLODIPINE 10 MG TABLET GT SCH (08:14)
[2019-02-25] MEDS: ASCORBIC ACID 500 MG TABLET GT SCH ×2 (08:16→20:34)
[2019-02-25] MEDS: Z GUARD REMEDY PASTE 57 GM TUBE TOP SCH ×2 (08:16→20:34)
[2019-02-25] MEDS: LISINOPRIL 10 MG TABLET GT SCH (08:16)
[2019-02-25] MEDS: COD LIVER OIL/ZINC OXIDE OINT 113 GM TUBE TP SCH ×2 (08:18)
[2019-02-25] MEDS: VITAMINS A AND D OINT TP SCH ×2 (08:18→20:34)
[2019-02-25] MEDS: HYDROGEN PEROXIDE 3% 118 ML BOTTLE TP SCH ×2 (09:00→20:34)
[2019-02-25] MEDS: DIAZEPAM 10 MG TABLET GT SCH ×2 (09:05→20:34)
[2019-02-25] MEDS: PHENOBARBITAL 30 MG/7.5 ML LIQUID UDC GT SCH ×2 (09:05→20:33)
[2019-02-25] MEDS: VIMPAT 200 MG GT SCH ×2 (09:05→20:33)
[2019-02-25] MEDS: VITAL AF 1.2 1,000 ML LIQUID GT PRN (15:25)
[2019-02-25] MEDS: MULTIVIT, IRON, MIN NO. 8, FA TABLET GT SCH (20:34)
[2019-02-25 20:35] VITALS: BP 129/79
[2019-02-26] MEDS: VITAL AF 1.2 1,000 ML LIQUID GT PRN ×2 (05:40→22:30)
[2019-02-26 08:00] VITALS: BP 132/85
[2019-02-26] MEDS: ASPIRIN 81 MG TAB.CHEW GT SCH (08:03)
[2019-02-26] MEDS: LEVETIRACETAM 500 MG/5 ML LIQUID UDC GT SCH ×2 (08:03→20:30)
[2019-02-26] MEDS: VIMPAT 200 MG GT SCH ×2 (08:03→20:31)
[2019-02-26] MEDS: Z GUARD REMEDY PASTE 57 GM TUBE TOP SCH ×2 (08:04→20:31)
[2019-02-26] MEDS: PHENOBARBITAL 30 MG/7.5 ML LIQUID UDC GT SCH ×2 (08:04→20:31)
[2019-02-26] MEDS: ASCORBIC ACID 500 MG TABLET GT SCH ×2 (08:04→20:31)
[2019-02-26] MEDS: DIAZEPAM 10 MG TABLET GT SCH ×2 (08:04→20:31)
[2019-02-26] MEDS: COD LIVER OIL/ZINC OXIDE OINT 113 GM TUBE TP SCH ×2 (08:04)
[2019-02-26] MEDS: VITAMINS A AND D OINT TP SCH ×2 (08:04→20:31)
[2019-02-26] MEDS: AMLODIPINE 10 MG TABLET GT SCH (08:06)
[2019-02-26] MEDS: LISINOPRIL 10 MG TABLET GT SCH (08:06)
[2019-02-26] MEDS: METOPROLOL TARTRATE 50 MG TABLET GT SCH ×2 (08:06→20:31)
[2019-02-26] MEDS: HYDROGEN PEROXIDE 3% 118 ML BOTTLE TP SCH ×2 (09:00→21:00)
[2019-02-26] MEDS: MULTIVIT, IRON, MIN NO. 8, FA TABLET GT SCH (20:31)
[2019-02-26 20:44] VITALS: BP 118/81
[2019-02-27 08:06] VITALS: BP 100/71
[2019-02-27] MEDS: LEVETIRACETAM 500 MG/5 ML LIQUID UDC GT SCH ×2 (08:41→20:59)
[2019-02-27] MEDS: ASPIRIN 81 MG TAB.CHEW GT SCH (08:41)
[2019-02-27] MEDS: METOPROLOL TARTRATE 50 MG TABLET GT SCH ×2 (08:42→21:00)
[2019-02-27] MEDS: VIMPAT 200 MG GT SCH ×2 (08:42→21:03)
[2019-02-27] MEDS: PHENOBARBITAL 30 MG/7.5 ML LIQUID UDC GT SCH ×2 (08:44→21:03)
[2019-02-27] MEDS: AMLODIPINE 10 MG TABLET GT SCH (08:44)
[2019-02-27] MEDS: COD LIVER OIL/ZINC OXIDE OINT 113 GM TUBE TP SCH ×2 (08:44→08:45)
[2019-02-27] MEDS: ASCORBIC ACID 500 MG TABLET GT SCH ×2 (08:44→21:05)
[2019-02-27] MEDS: DIAZEPAM 10 MG TABLET GT SCH ×2 (08:44→21:05)
[2019-02-27] MEDS: LISINOPRIL 10 MG TABLET GT SCH (08:44)
[2019-02-27] MEDS: Z GUARD REMEDY PASTE 57 GM TUBE TOP SCH ×2 (08:44→21:07)
[2019-02-27] MEDS: VITAMINS A AND D OINT TP SCH ×2 (08:45→21:07)
[2019-02-27] MEDS: HYDROGEN PEROXIDE 3% 118 ML BOTTLE TP SCH ×2 (09:00→21:13)
[2019-02-27] MEDS: VITAL AF 1.2 1,000 ML LIQUID GT PRN (16:39)
[2019-02-27 20:00] VITALS: BP 130/90
[2019-02-27] MEDS: MULTIVIT, IRON, MIN NO. 8, FA TABLET GT SCH (21:05)
[2019-02-28 08:30] VITALS: BP 125/79
[2019-02-28] MEDS: AMLODIPINE 10 MG TABLET GT SCH (09:00)
[2019-02-28] MEDS: ASCORBIC ACID 500 MG TABLET GT SCH ×2 (09:00→21:27)
[2019-02-28] MEDS: Z GUARD REMEDY PASTE 57 GM TUBE TOP SCH ×2 (09:00→21:27)
[2019-02-28] MEDS: LEVETIRACETAM 500 MG/5 ML LIQUID UDC GT SCH ×2 (09:00→21:19)
[2019-02-28] MEDS: PHENOBARBITAL 30 MG/7.5 ML LIQUID UDC GT SCH ×2 (09:00→21:26)
[2019-02-28] MEDS: ASPIRIN 81 MG TAB.CHEW GT SCH (09:00)
[2019-02-28] MEDS: DIAZEPAM 10 MG TABLET GT SCH ×2 (09:00→21:27)
[2019-02-28] MEDS: COD LIVER OIL/ZINC OXIDE OINT 113 GM TUBE TP SCH ×2 (09:00)
[2019-02-28] MEDS: VITAMINS A AND D OINT TP SCH ×2 (09:00→21:27)
[2019-02-28] MEDS: HYDROGEN PEROXIDE 3% 118 ML BOTTLE TP SCH ×2 (09:00→18:56)
[2019-02-28] MEDS: METOPROLOL TARTRATE 50 MG TABLET GT SCH ×2 (09:00→21:20)
[2019-02-28] MEDS: LISINOPRIL 10 MG TABLET GT SCH (09:00)
[2019-02-28] MEDS: VIMPAT 200 MG GT SCH ×2 (09:00→21:26)
[2019-02-28] MEDS: VITAL AF 1.2 1,000 ML LIQUID GT PRN (12:00)
[2019-02-28 20:46] VITALS: BP 139/78
[2019-02-28] MEDS: MULTIVIT, IRON, MIN NO. 8, FA TABLET GT SCH (21:26)
[2019-03-01 08:30] VITALS: BP 109/75
[2019-03-01] MEDS: LISINOPRIL 10 MG TABLET GT SCH (09:00)
[2019-03-01] MEDS: AMLODIPINE 10 MG TABLET GT SCH (09:00)
[2019-03-01] MEDS: METOPROLOL TARTRATE 50 MG TABLET GT SCH ×2 (09:00→21:45)
[2019-03-01] MEDS: ASPIRIN 81 MG TAB.CHEW GT SCH (09:24)
[2019-03-01] MEDS: LEVETIRACETAM 500 MG/5 ML LIQUID UDC GT SCH ×2 (09:24→21:44)
[2019-03-01] MEDS: VIMPAT 200 MG GT SCH ×2 (09:25→21:47)
[2019-03-01] MEDS: PHENOBARBITAL 30 MG/7.5 ML LIQUID UDC GT SCH ×2 (09:25→21:47)
[2019-03-01] MEDS: ASCORBIC ACID 500 MG TABLET GT SCH ×2 (09:26→21:47)
[2019-03-01] MEDS: Z GUARD REMEDY PASTE 57 GM TUBE TOP SCH ×2 (09:26→21:47)
[2019-03-01] MEDS: COD LIVER OIL/ZINC OXIDE OINT 113 GM TUBE TP SCH ×2 (09:26→09:27)
[2019-03-01] MEDS: VITAMINS A AND D OINT TP SCH ×2 (09:27→21:47)
[2019-03-01] MEDS: DIAZEPAM 10 MG TABLET GT SCH ×2 (09:28→21:47)
[2019-03-01] MEDS: HYDROGEN PEROXIDE 3% 118 ML BOTTLE TP SCH ×2 (09:38→18:47)
[2019-03-01 20:23] VITALS: BP 138/87
[2019-03-01] MEDS: MULTIVIT, IRON, MIN NO. 8, FA TABLET GT SCH (21:47)
[2019-03-02] MEDS ORDERED: THERAHONEY GEL 1.5 OZ TUBE TOP SCH ×2 (04:30)
[2019-03-02] MEDS: LEVETIRACETAM 500 MG/5 ML LIQUID UDC GT SCH ×2 (08:10→21:07)
[2019-03-02] MEDS: METOPROLOL TARTRATE 50 MG TABLET GT SCH ×2 (08:10→21:00)
[2019-03-02] MEDS: ASPIRIN 81 MG TAB.CHEW GT SCH (08:10)
[2019-03-02 08:11] VITALS: BP 118/78
[2019-03-02] MEDS: VIMPAT 200 MG GT SCH ×2 (08:11→21:09)
[2019-03-02] MEDS: AMLODIPINE 10 MG TABLET GT SCH (08:11)
[2019-03-02] MEDS: PHENOBARBITAL 30 MG/7.5 ML LIQUID UDC GT SCH ×2 (08:11→21:10)
[2019-03-02] MEDS: LISINOPRIL 10 MG TABLET GT SCH (08:11)
[2019-03-02] MEDS: VITAMINS A AND D OINT TP SCH ×2 (08:12→21:13)
[2019-03-02] MEDS: DIAZEPAM 10 MG TABLET GT SCH ×2 (08:12→21:13)
[2019-03-02] MEDS: Z GUARD REMEDY PASTE 57 GM TUBE TOP SCH ×2 (08:12→21:13)
[2019-03-02] MEDS: ASCORBIC ACID 500 MG TABLET GT SCH ×2 (08:12→21:13)
[2019-03-02] MEDS: COD LIVER OIL/ZINC OXIDE OINT 113 GM TUBE TP SCH ×2 (08:12)
[2019-03-02] MEDS: HYDROGEN PEROXIDE 3% 118 ML BOTTLE TP SCH ×2 (09:16→20:38)
[2019-03-02] MEDS: VITAL AF 1.2 1,000 ML LIQUID GT PRN (14:21)
[2019-03-02 20:25] VITALS: BP 117/76
[2019-03-02] MEDS: MULTIVIT, IRON, MIN NO. 8, FA TABLET GT SCH (21:12)
[2019-03-03 08:00] VITALS: BP 128/72
[2019-03-03] MEDS: ASPIRIN 81 MG TAB.CHEW GT SCH (08:08)
[2019-03-03] MEDS: LEVETIRACETAM 500 MG/5 ML LIQUID UDC GT SCH ×2 (08:08→21:11)
[2019-03-03] MEDS: AMLODIPINE 10 MG TABLET GT SCH (08:09)
[2019-03-03] MEDS: VIMPAT 200 MG GT SCH ×2 (08:09→21:14)
[2019-03-03] MEDS: METOPROLOL TARTRATE 50 MG TABLET GT SCH ×2 (08:09→21:13)
[2019-03-03] MEDS: VITAMINS A AND D OINT TP SCH ×2 (08:10→21:20)
[2019-03-03] MEDS: LISINOPRIL 10 MG TABLET GT SCH (08:10)
[2019-03-03] MEDS: ASCORBIC ACID 500 MG TABLET GT SCH ×2 (08:10→21:20)
[2019-03-03] MEDS: Z GUARD REMEDY PASTE 57 GM TUBE TOP SCH ×2 (08:10→21:20)
[2019-03-03] MEDS: DIAZEPAM 10 MG TABLET GT SCH ×2 (08:10→21:20)
[2019-03-03] MEDS: COD LIVER OIL/ZINC OXIDE OINT 113 GM TUBE TP SCH ×2 (08:10)
[2019-03-03] MEDS: PHENOBARBITAL 30 MG/7.5 ML LIQUID UDC GT SCH ×2 (08:10→21:20)
[2019-03-03] MEDS: HYDROGEN PEROXIDE 3% 118 ML BOTTLE TP SCH ×2 (09:00→20:59)
[2019-03-03 20:01] VITALS: BP 138/90
[2019-03-03] MEDS: MULTIVIT, IRON, MIN NO. 8, FA TABLET GT SCH (21:20)
[2019-03-03] MEDS: VITAL AF 1.2 1,000 ML LIQUID GT PRN (21:53)
[2019-03-04 08:09] VITALS: BP 118/78
[2019-03-04] MEDS: LEVETIRACETAM 500 MG/5 ML LIQUID UDC GT SCH ×2 (08:23→20:53)
[2019-03-04] MEDS: ASPIRIN 81 MG TAB.CHEW GT SCH (08:23)
[2019-03-04] MEDS: METOPROLOL TARTRATE 50 MG TABLET GT SCH ×2 (08:24→20:55)
[2019-03-04] MEDS: VIMPAT 200 MG GT SCH ×2 (08:24→20:55)
[2019-03-04] MEDS: PHENOBARBITAL 30 MG/7.5 ML LIQUID UDC GT SCH ×2 (08:26→20:55)
[2019-03-04] MEDS: LISINOPRIL 10 MG TABLET GT SCH (08:26)
[2019-03-04] MEDS: AMLODIPINE 10 MG TABLET GT SCH (08:26)
[2019-03-04] MEDS: ASCORBIC ACID 500 MG TABLET GT SCH ×2 (08:27→21:01)
[2019-03-04] MEDS: DIAZEPAM 10 MG TABLET GT SCH ×2 (08:27→21:01)
[2019-03-04] MEDS: COD LIVER OIL/ZINC OXIDE OINT 113 GM TUBE TP SCH ×2 (08:28)
[2019-03-04] MEDS: Z GUARD REMEDY PASTE 57 GM TUBE TOP SCH ×2 (08:28→21:01)
[2019-03-04] MEDS: VITAMINS A AND D OINT TP SCH ×2 (08:28→21:01)
[2019-03-04] MEDS: HYDROGEN PEROXIDE 3% 118 ML BOTTLE TP SCH ×2 (09:00→19:03)
[2019-03-04] MEDS: VITAL AF 1.2 1,000 ML LIQUID GT PRN (15:38)
[2019-03-04 20:00] VITALS: BP 138/90
[2019-03-04] MEDS: MULTIVIT, IRON, MIN NO. 8, FA TABLET GT SCH (21:00)
[2019-03-05] MEDS: VIMPAT 200 MG GT SCH ×2 (08:46→20:25)
[2019-03-05] MEDS: PHENOBARBITAL 30 MG/7.5 ML LIQUID UDC GT SCH ×2 (08:46→20:25)
[2019-03-05] MEDS: ASPIRIN 81 MG TAB.CHEW GT SCH (08:46)
[2019-03-05] MEDS: AMLODIPINE 10 MG TABLET GT SCH (08:46)
[2019-03-05] MEDS: METOPROLOL TARTRATE 50 MG TABLET GT SCH ×2 (08:46→20:21)
[2019-03-05] MEDS: LEVETIRACETAM 500 MG/5 ML LIQUID UDC GT SCH ×2 (08:46→20:20)
[2019-03-05] MEDS: DIAZEPAM 10 MG TABLET GT SCH ×2 (08:47→20:25)
[2019-03-05] MEDS: ASCORBIC ACID 500 MG TABLET GT SCH ×2 (08:47→20:25)
[2019-03-05] MEDS: VITAMINS A AND D OINT TP SCH ×2 (08:47→20:25)
[2019-03-05] MEDS: LISINOPRIL 10 MG TABLET GT SCH (08:47)
[2019-03-05] MEDS: Z GUARD REMEDY PASTE 57 GM TUBE TOP SCH ×2 (08:47→20:25)
[2019-03-05] MEDS: VITAL AF 1.2 1,000 ML LIQUID GT PRN ×2 (08:49→22:00)
[2019-03-05] MEDS: HYDROGEN PEROXIDE 3% 118 ML BOTTLE TP SCH ×2 (09:24→18:56)
[2019-03-05 10:25] VITALS: BP 121/74
[2019-03-05] MEDS: MULTIVIT, IRON, MIN NO. 8, FA TABLET GT SCH (20:25)
[2019-03-05 20:43] VITALS: BP 144/94
[2019-03-06 08:00] VITALS: BP 139/56
[2019-03-06] MEDS: LEVETIRACETAM 500 MG/5 ML LIQUID UDC GT SCH ×2 (08:58→20:02)
[2019-03-06] MEDS: VIMPAT 200 MG GT SCH ×2 (08:58→20:02)
[2019-03-06] MEDS: AMLODIPINE 10 MG TABLET GT SCH (08:58)
[2019-03-06] MEDS: ASPIRIN 81 MG TAB.CHEW GT SCH (08:58)
[2019-03-06] MEDS: METOPROLOL TARTRATE 50 MG TABLET GT SCH ×2 (08:58→20:02)
[2019-03-06] MEDS: LISINOPRIL 10 MG TABLET GT SCH (08:59)
[2019-03-06] MEDS: PHENOBARBITAL 30 MG/7.5 ML LIQUID UDC GT SCH ×2 (08:59→20:02)
[2019-03-06] MEDS: Z GUARD REMEDY PASTE 57 GM TUBE TOP SCH ×2 (08:59→20:02)
[2019-03-06] MEDS: DIAZEPAM 10 MG TABLET GT SCH ×2 (08:59→20:02)
[2019-03-06] MEDS: VITAMINS A AND D OINT TP SCH ×2 (08:59→20:03)
[2019-03-06] MEDS: ASCORBIC ACID 500 MG TABLET GT SCH ×2 (08:59→20:02)
[2019-03-06] MEDS: HYDROGEN PEROXIDE 3% 118 ML BOTTLE TP SCH ×2 (09:16→20:03)
[2019-03-06] MEDS: VITAL AF 1.2 1,000 ML LIQUID GT PRN (16:09)
[2019-03-06] MEDS: MULTIVIT, IRON, MIN NO. 8, FA TABLET GT SCH (20:02)
[2019-03-06 20:31] VITALS: BP 132/94
[2019-03-07 08:00] VITALS: BP 112/73
[2019-03-07] MEDS: ASPIRIN 81 MG TAB.CHEW GT SCH (08:31)
[2019-03-07] MEDS: LEVETIRACETAM 500 MG/5 ML LIQUID UDC GT SCH ×2 (08:31→20:02)
[2019-03-07] MEDS: METOPROLOL TARTRATE 50 MG TABLET GT SCH ×2 (08:32→21:00)
[2019-03-07] MEDS: PHENOBARBITAL 30 MG/7.5 ML LIQUID UDC GT SCH ×2 (08:33→20:02)
[2019-03-07] MEDS: VIMPAT 200 MG GT SCH ×2 (08:33→20:02)
[2019-03-07] MEDS: AMLODIPINE 10 MG TABLET GT SCH (08:33)
[2019-03-07] MEDS: DIAZEPAM 10 MG TABLET GT SCH ×2 (08:34→20:03)
[2019-03-07] MEDS: ASCORBIC ACID 500 MG TABLET GT SCH ×2 (08:34→20:03)
[2019-03-07] MEDS: VITAMINS A AND D OINT TP SCH ×2 (08:34→20:03)
[2019-03-07] MEDS: LISINOPRIL 10 MG TABLET GT SCH (08:34)
[2019-03-07] MEDS: Z GUARD REMEDY PASTE 57 GM TUBE TOP SCH ×2 (08:34→20:03)
[2019-03-07] MEDS: VITAL AF 1.2 1,000 ML LIQUID GT PRN ×2 (09:22→20:03)
[2019-03-07] MEDS: HYDROGEN PEROXIDE 3% 118 ML BOTTLE TP SCH ×2 (09:48→20:03)
[2019-03-07] MEDS: COD LIVER OIL/ZINC OXIDE OINT 113 GM TUBE TP SCH ×2 (11:02)
[2019-03-07] MEDS: MULTIVIT, IRON, MIN NO. 8, FA TABLET GT SCH (20:03)
[2019-03-07 20:45] VITALS: BP 153/102
[2019-03-08 06:12] VITALS: BP 132/78
[2019-03-08] MEDS: ASPIRIN 81 MG TAB.CHEW GT SCH (08:01)
[2019-03-08] MEDS: LEVETIRACETAM 500 MG/5 ML LIQUID UDC GT SCH ×2 (08:01→20:05)
[2019-03-08] MEDS: AMLODIPINE 10 MG TABLET GT SCH (08:01)
[2019-03-08] MEDS: METOPROLOL TARTRATE 50 MG TABLET GT SCH ×2 (08:01→20:45)
[2019-03-08] MEDS: VIMPAT 200 MG GT SCH ×2 (08:01→20:05)
[2019-03-08] MEDS: PHENOBARBITAL 30 MG/7.5 ML LIQUID UDC GT SCH ×2 (08:01→20:05)
[2019-03-08] MEDS: Z GUARD REMEDY PASTE 57 GM TUBE TOP SCH ×2 (08:02→20:06)
[2019-03-08] MEDS: DIAZEPAM 10 MG TABLET GT SCH ×2 (08:02→20:06)
[2019-03-08] MEDS: COD LIVER OIL/ZINC OXIDE OINT 113 GM TUBE TP SCH ×2 (08:02)
[2019-03-08] MEDS: VITAMINS A AND D OINT TP SCH ×2 (08:02→20:06)
[2019-03-08] MEDS: ASCORBIC ACID 500 MG TABLET GT SCH ×2 (08:02→20:06)
[2019-03-08] MEDS: LISINOPRIL 10 MG TABLET GT SCH (08:02)
[2019-03-08 08:49] VITALS: BP 130/82
[2019-03-08] MEDS: HYDROGEN PEROXIDE 3% 118 ML BOTTLE TP SCH ×2 (09:23→21:30)
[2019-03-08] MEDS: VITAL AF 1.2 1,000 ML LIQUID GT PRN (16:32)
[2019-03-08] MEDS: MULTIVIT, IRON, MIN NO. 8, FA TABLET GT SCH (20:06)
[2019-03-08 20:33] VITALS: BP 121/79
[2019-03-09] MEDS: VITAL AF 1.2 1,000 ML LIQUID GT PRN ×2 (05:00→21:21)
[2019-03-09 08:00] VITALS: BP 123/81
[2019-03-09] MEDS: ASPIRIN 81 MG TAB.CHEW GT SCH (08:56)
[2019-03-09] MEDS: METOPROLOL TARTRATE 50 MG TABLET GT SCH ×2 (08:57→20:51)
[2019-03-09] MEDS: LEVETIRACETAM 500 MG/5 ML LIQUID UDC GT SCH ×2 (08:57→20:59)
[2019-03-09] MEDS: VIMPAT 200 MG GT SCH ×2 (09:00→20:59)
[2019-03-09] MEDS: PHENOBARBITAL 30 MG/7.5 ML LIQUID UDC GT SCH ×2 (09:01→20:59)
[2019-03-09] MEDS: AMLODIPINE 10 MG TABLET GT SCH (09:02)
[2019-03-09] MEDS: LISINOPRIL 10 MG TABLET GT SCH (09:02)
[2019-03-09] MEDS: Z GUARD REMEDY PASTE 57 GM TUBE TOP SCH ×2 (09:03→20:59)
[2019-03-09] MEDS: COD LIVER OIL/ZINC OXIDE OINT 113 GM TUBE TP SCH ×2 (09:03)
[2019-03-09] MEDS: ASCORBIC ACID 500 MG TABLET GT SCH ×2 (09:03→20:59)
[2019-03-09] MEDS: VITAMINS A AND D OINT TP SCH ×2 (09:03→21:00)
[2019-03-09] MEDS: DIAZEPAM 10 MG TABLET GT SCH ×2 (09:06→20:59)
[2019-03-09] MEDS: HYDROGEN PEROXIDE 3% 118 ML BOTTLE TP SCH ×2 (09:28→21:02)
[2019-03-09 20:51] VITALS: BP 117/76
[2019-03-09] MEDS: MULTIVIT, IRON, MIN NO. 8, FA TABLET GT SCH (20:59)
[2019-03-10 07:54] LABS: BASOPHILS % (AUTO) 0.5 % (0.0-2.0); EOSINOPHILS # (AUTO) 0.2 K/uL (0.0-0.7); EOSINOPHILS % (AUTO) 3.1 % (0.0-7.0); HEMOGLOBIN 11.5 g/dL (10.9-14.3); LYMPHOCYTES # (AUTO) 1.1 K/uL (20.0-40.0); LYMPHOCYTES % (AUTO) 21.4 % (20.5-51.5); MEAN CORPUSCULAR HGB CONC 35 g/dL (32.3-35.6); MONOCYTES # (AUTO) 0.3 K/uL (2.0-10.0); MONOCYTES % (AUTO) 6.6 % (0.0-11.0); NEUTROPHILS # (AUTO) 3.5 K/uL (1.8-8.9); NEUTROPHILS % (AUTO) 68.4 % (38.5-71.5); PLATELET COUNT (AUTO) 150 K/uL (179-408); RED BLOOD CELL COUNT(AUTO) 3.71 MIL/uL (3.63-4.92); WHITE BLOOD COUNT (AUTO) 5.1 K/uL (3.8-11.8)
[2019-03-10 07:57] LABS: ALANINE AMINOTRANSFERASE 33 U/L (14-59); ALKALINE PHOSPHATASE 98 U/L (50-136); ASPARTATE AMINOTRANSFERASE 13 U/L (15-37); BILIRUBIN,TOTAL 0.2 mg/dL (0.2-1.0); CARBON DIOXIDE 32 mmol/L (21-32); CHLORIDE 104 mmol/L (98-107); CREATININE 0.4 mg/dL (0.6-1.3); GLUCOSE 105 mg/dL (74-106); MAGNESIUM 1.7 mg/dL (1.8-2.4); PHOSPHOROUS 3.9 mg/dL (2.5-4.9); POTASSIUM 4.3 mmol/L (3.5-5.1); TOTAL PROTEIN, SERUM 6.8 g/dL (6.4-8.2); UREA NITROGEN, BLOOD 21 mg/dL (7-18)
[2019-03-10] MEDS: LEVETIRACETAM 500 MG/5 ML LIQUID UDC GT SCH ×2 (08:40→20:26)
[2019-03-10] MEDS: ASPIRIN 81 MG TAB.CHEW GT SCH (08:40)
[2019-03-10] MEDS: METOPROLOL TARTRATE 50 MG TABLET GT SCH ×2 (08:41→20:28)
[2019-03-10] MEDS: AMLODIPINE 10 MG TABLET GT SCH (08:42)
[2019-03-10] MEDS: ASCORBIC ACID 500 MG TABLET GT SCH ×2 (08:44→20:28)
[2019-03-10] MEDS: Z GUARD REMEDY PASTE 57 GM TUBE TOP SCH ×2 (08:44→20:28)
[2019-03-10] MEDS: LISINOPRIL 10 MG TABLET GT SCH (08:44)
[2019-03-10] MEDS: VITAMINS A AND D OINT TP SCH ×2 (08:45→20:28)
[2019-03-10] MEDS: COD LIVER OIL/ZINC OXIDE OINT 113 GM TUBE TP SCH ×2 (08:45)
[2019-03-10] MEDS: PHENOBARBITAL 30 MG/7.5 ML LIQUID UDC GT SCH ×2 (09:14→20:28)
[2019-03-10] MEDS: VIMPAT 200 MG GT SCH ×2 (09:14→20:28)
[2019-03-10] MEDS: DIAZEPAM 10 MG TABLET GT SCH ×2 (09:14→20:28)
[2019-03-10] MEDS: HYDROGEN PEROXIDE 3% 118 ML BOTTLE TP SCH ×2 (09:34→21:14)
[2019-03-10 12:18] VITALS: BP 104/58
[2019-03-10] MEDS ORDERED: MAGNESIUM OXIDE 400 MG TABLET GT ONE (14:00)
[2019-03-10] MEDS: VITAL AF 1.2 1,000 ML LIQUID GT PRN (15:38)
[2019-03-10 20:00] VITALS: BP 113/69
[2019-03-10] MEDS: MULTIVIT, IRON, MIN NO. 8, FA TABLET GT SCH (20:28)
[2019-03-11 08:30] VITALS: BP 96/62
[2019-03-11] MEDS: METOPROLOL TARTRATE 50 MG TABLET GT SCH ×2 (09:00→20:44)
[2019-03-11] MEDS: HYDROGEN PEROXIDE 3% 118 ML BOTTLE TP SCH ×2 (09:00→20:45)
[2019-03-11] MEDS: AMLODIPINE 10 MG TABLET GT SCH (09:00)
[2019-03-11] MEDS: LISINOPRIL 10 MG TABLET GT SCH (09:00)
[2019-03-11] MEDS: VIMPAT 200 MG GT SCH ×2 (09:08→20:44)
[2019-03-11] MEDS: LEVETIRACETAM 500 MG/5 ML LIQUID UDC GT SCH ×2 (09:08→20:43)
[2019-03-11] MEDS: ASPIRIN 81 MG TAB.CHEW GT SCH (09:08)
[2019-03-11] MEDS: ASCORBIC ACID 500 MG TABLET GT SCH ×2 (09:09→20:44)
[2019-03-11] MEDS: PHENOBARBITAL 30 MG/7.5 ML LIQUID UDC GT SCH ×2 (09:09→20:44)
[2019-03-11] MEDS: DIAZEPAM 10 MG TABLET GT SCH ×2 (09:09→20:44)
[2019-03-11] MEDS: Z GUARD REMEDY PASTE 57 GM TUBE TOP SCH ×2 (09:10→20:45)
[2019-03-11] MEDS: VITAMINS A AND D OINT TP SCH ×2 (09:10→20:45)
[2019-03-11] MEDS: COD LIVER OIL/ZINC OXIDE OINT 113 GM TUBE TP SCH ×2 (09:10)
[2019-03-11 20:00] VITALS: BP 118/76
[2019-03-11] MEDS: MULTIVIT, IRON, MIN NO. 8, FA TABLET GT SCH (20:44)
[2019-03-12 08:00] VITALS: BP 99/60
[2019-03-12] MEDS: ASPIRIN 81 MG TAB.CHEW GT SCH (08:01)
[2019-03-12] MEDS: PHENOBARBITAL 30 MG/7.5 ML LIQUID UDC GT SCH ×2 (08:02→20:34)
[2019-03-12] MEDS: METOPROLOL TARTRATE 50 MG TABLET GT SCH ×2 (08:02→20:33)
[2019-03-12] MEDS: VIMPAT 200 MG GT SCH ×2 (08:02→20:34)
[2019-03-12] MEDS: LEVETIRACETAM 500 MG/5 ML LIQUID UDC GT SCH ×2 (08:02→20:33)
[2019-03-12] MEDS: DIAZEPAM 10 MG TABLET GT SCH ×2 (08:03→20:34)
[2019-03-12] MEDS: AMLODIPINE 10 MG TABLET GT SCH (08:03)
[2019-03-12] MEDS: LISINOPRIL 10 MG TABLET GT SCH (08:03)
[2019-03-12] MEDS: ASCORBIC ACID 500 MG TABLET GT SCH ×2 (08:03→20:34)
[2019-03-12] MEDS: VITAMINS A AND D OINT TP SCH ×2 (08:04→20:34)
[2019-03-12] MEDS: COD LIVER OIL/ZINC OXIDE OINT 113 GM TUBE TP SCH ×2 (08:04)
[2019-03-12] MEDS: Z GUARD REMEDY PASTE 57 GM TUBE TOP SCH ×2 (08:04→20:34)
[2019-03-12] MEDS: HYDROGEN PEROXIDE 3% 118 ML BOTTLE TP SCH ×2 (10:35→20:34)
[2019-03-12] MEDS: VITAL AF 1.2 1,000 ML LIQUID GT PRN (17:11)
[2019-03-12 20:00] VITALS: BP 118/78
[2019-03-12] MEDS: MULTIVIT, IRON, MIN NO. 8, FA TABLET GT SCH (20:34)
[2019-03-13 08:00] VITALS: BP 125/87
[2019-03-13] MEDS: HYDROGEN PEROXIDE 3% 118 ML BOTTLE TP SCH ×2 (09:00→21:00)
[2019-03-13] MEDS: ASPIRIN 81 MG TAB.CHEW GT SCH (09:22)
[2019-03-13] MEDS: LEVETIRACETAM 500 MG/5 ML LIQUID UDC GT SCH ×2 (09:23→20:48)
[2019-03-13] MEDS: METOPROLOL TARTRATE 50 MG TABLET GT SCH ×2 (09:24→20:52)
[2019-03-13] MEDS: VIMPAT 200 MG GT SCH ×2 (09:26→20:53)
[2019-03-13] MEDS: AMLODIPINE 10 MG TABLET GT SCH (09:27)
[2019-03-13] MEDS: PHENOBARBITAL 30 MG/7.5 ML LIQUID UDC GT SCH ×2 (09:30→20:54)
[2019-03-13] MEDS: DIAZEPAM 10 MG TABLET GT SCH ×2 (09:31→20:53)
[2019-03-13] MEDS: LISINOPRIL 10 MG TABLET GT SCH (09:31)
[2019-03-13] MEDS: COD LIVER OIL/ZINC OXIDE OINT 113 GM TUBE TP SCH ×2 (09:33)
[2019-03-13] MEDS: Z GUARD REMEDY PASTE 57 GM TUBE TOP SCH ×2 (09:33→20:57)
[2019-03-13] MEDS: ASCORBIC ACID 500 MG TABLET GT SCH ×2 (09:33→20:57)
[2019-03-13] MEDS: VITAMINS A AND D OINT TP SCH ×2 (09:34→20:58)
[2019-03-13] MEDS: VITAL AF 1.2 1,000 ML LIQUID GT PRN ×2 (10:38→11:57)
[2019-03-13 20:00] VITALS: BP 111/74
[2019-03-13] MEDS: MULTIVIT, IRON, MIN NO. 8, FA TABLET GT SCH (20:57)
[2019-03-14] MEDS: VITAL AF 1.2 1,000 ML LIQUID GT PRN ×2 (01:15→17:30)
[2019-03-14 08:00] VITALS: BP 117/84
[2019-03-14] MEDS: HYDROGEN PEROXIDE 3% 118 ML BOTTLE TP SCH ×2 (09:00→21:13)
[2019-03-14] MEDS: METOPROLOL TARTRATE 50 MG TABLET GT SCH ×2 (09:00→21:00)
[2019-03-14] MEDS: AMLODIPINE 10 MG TABLET GT SCH (09:00)
[2019-03-14] MEDS: ASPIRIN 81 MG TAB.CHEW GT SCH (09:13)
[2019-03-14] MEDS: LEVETIRACETAM 500 MG/5 ML LIQUID UDC GT SCH ×2 (09:17→21:05)
[2019-03-14] MEDS: VIMPAT 200 MG GT SCH ×2 (09:23→21:13)
[2019-03-14] MEDS: PHENOBARBITAL 30 MG/7.5 ML LIQUID UDC GT SCH ×2 (09:24→21:13)
[2019-03-14] MEDS: LISINOPRIL 10 MG TABLET GT SCH (09:28)
[2019-03-14] MEDS: DIAZEPAM 10 MG TABLET GT SCH ×2 (09:29→21:14)
[2019-03-14] MEDS: ASCORBIC ACID 500 MG TABLET GT SCH ×2 (09:29→21:14)
[2019-03-14] MEDS: Z GUARD REMEDY PASTE 57 GM TUBE TOP SCH ×2 (09:31→21:14)
[2019-03-14] MEDS: COD LIVER OIL/ZINC OXIDE OINT 113 GM TUBE TP SCH ×2 (09:32→09:33)
[2019-03-14] MEDS: VITAMINS A AND D OINT TP SCH ×2 (09:36→21:14)
[2019-03-14 20:00] VITALS: BP 119/80
[2019-03-14] MEDS: MULTIVIT, IRON, MIN NO. 8, FA TABLET GT SCH (21:13)
[2019-03-15 08:00] VITALS: BP 115/82
[2019-03-15] MEDS: ASPIRIN 81 MG TAB.CHEW GT SCH (08:35)
[2019-03-15] MEDS: LEVETIRACETAM 500 MG/5 ML LIQUID UDC GT SCH ×2 (08:36→20:13)
[2019-03-15] MEDS: METOPROLOL TARTRATE 50 MG TABLET GT SCH ×2 (08:36→20:13)
[2019-03-15] MEDS: AMLODIPINE 10 MG TABLET GT SCH (08:37)
[2019-03-15] MEDS: VIMPAT 200 MG GT SCH ×2 (08:37→20:12)
[2019-03-15] MEDS: PHENOBARBITAL 30 MG/7.5 ML LIQUID UDC GT SCH ×2 (08:37→20:12)
[2019-03-15] MEDS: LISINOPRIL 10 MG TABLET GT SCH (08:38)
[2019-03-15] MEDS: COD LIVER OIL/ZINC OXIDE OINT 113 GM TUBE TP SCH ×2 (08:39)
[2019-03-15] MEDS: Z GUARD REMEDY PASTE 57 GM TUBE TOP SCH ×2 (08:39→20:11)
[2019-03-15] MEDS: DIAZEPAM 10 MG TABLET GT SCH ×2 (08:39→20:11)
[2019-03-15] MEDS: VITAMINS A AND D OINT TP SCH ×2 (08:39→20:11)
[2019-03-15] MEDS: ASCORBIC ACID 500 MG TABLET GT SCH ×2 (08:39→20:11)
[2019-03-15] MEDS: HYDROGEN PEROXIDE 3% 118 ML BOTTLE TP SCH ×2 (09:06→18:57)
[2019-03-15] MEDS: MULTIVIT, IRON, MIN NO. 8, FA TABLET GT SCH (20:11)
[2019-03-15 20:16] VITALS: BP 131/88
[2019-03-16] MEDS: VITAL AF 1.2 1,000 ML LIQUID GT PRN (05:23)
[2019-03-16 08:12] VITALS: BP 134/86
[2019-03-16] MEDS: LEVETIRACETAM 500 MG/5 ML LIQUID UDC GT SCH ×2 (08:29→20:13)
[2019-03-16] MEDS: ASPIRIN 81 MG TAB.CHEW GT SCH (08:29)
[2019-03-16] MEDS: VIMPAT 200 MG GT SCH ×2 (08:30→20:13)
[2019-03-16] MEDS: METOPROLOL TARTRATE 50 MG TABLET GT SCH ×2 (08:30→20:14)
[2019-03-16] MEDS: COD LIVER OIL/ZINC OXIDE OINT 113 GM TUBE TP SCH ×2 (08:32)
[2019-03-16] MEDS: AMLODIPINE 10 MG TABLET GT SCH (08:32)
[2019-03-16] MEDS: DIAZEPAM 10 MG TABLET GT SCH ×2 (08:32→20:13)
[2019-03-16] MEDS: PHENOBARBITAL 30 MG/7.5 ML LIQUID UDC GT SCH ×2 (08:32→20:13)
[2019-03-16] MEDS: LISINOPRIL 10 MG TABLET GT SCH (08:32)
[2019-03-16] MEDS: Z GUARD REMEDY PASTE 57 GM TUBE TOP SCH ×2 (08:32→20:13)
[2019-03-16] MEDS: ASCORBIC ACID 500 MG TABLET GT SCH ×2 (08:32→20:13)
[2019-03-16] MEDS: VITAMINS A AND D OINT TP SCH ×2 (08:32→20:13)
[2019-03-16] MEDS: HYDROGEN PEROXIDE 3% 118 ML BOTTLE TP SCH ×2 (09:00→20:13)
[2019-03-16] MEDS: MULTIVIT, IRON, MIN NO. 8, FA TABLET GT SCH (20:13)
[2019-03-16 20:30] VITALS: BP 112/80
[2019-03-17] MEDS: VITAL AF 1.2 1,000 ML LIQUID GT PRN (05:58)
[2019-03-17 08:00] VITALS: BP 103/71
[2019-03-17] MEDS: AMLODIPINE 10 MG TABLET GT SCH (09:00)
[2019-03-17] MEDS: ASCORBIC ACID 500 MG TABLET GT SCH ×2 (09:00→21:21)
[2019-03-17] MEDS: LISINOPRIL 10 MG TABLET GT SCH (09:00)
[2019-03-17] MEDS: DIAZEPAM 10 MG TABLET GT SCH ×2 (09:00→21:14)
[2019-03-17] MEDS: HYDROGEN PEROXIDE 3% 118 ML BOTTLE TP SCH ×2 (09:00→20:53)
[2019-03-17] MEDS: COD LIVER OIL/ZINC OXIDE OINT 113 GM TUBE TP SCH ×2 (09:00)
[2019-03-17] MEDS: Z GUARD REMEDY PASTE 57 GM TUBE TOP SCH ×2 (09:00→21:21)
[2019-03-17] MEDS: PHENOBARBITAL 30 MG/7.5 ML LIQUID UDC GT SCH ×2 (09:00→21:16)
[2019-03-17] MEDS: VITAMINS A AND D OINT TP SCH ×2 (09:00→21:21)
[2019-03-17] MEDS: ASPIRIN 81 MG TAB.CHEW GT SCH (09:57)
[2019-03-17] MEDS: LEVETIRACETAM 500 MG/5 ML LIQUID UDC GT SCH ×2 (09:58→21:13)
[2019-03-17] MEDS: METOPROLOL TARTRATE 50 MG TABLET GT SCH ×2 (09:59→21:00)
[2019-03-17] MEDS: VIMPAT 200 MG GT SCH ×2 (09:59→21:14)
[2019-03-17 19:38] LABS: *BILIRUBIN,URIN NEGATIVE (NEGATIVE); *BLOOD, URINE 2+ (NEGATIVE); *CLARITY,URINE SLIGHTLY CLOUDY (CLEAR); *COLOR,URINE YELLOW (YELLOW); *KETONES,URINE NEGATIVE (NEGATIVE); *UROBILINOGEN,URINE 0.2 E.U./dl (NORMAL); LEUKOCYTE ESTERASE ,URINE 1+ (NEGATIVE); NITRITE, URINE POSITIVE (NEGATIVE); UGLUCOSE NEGATIVE (NEGATIVE)
[2019-03-17 20:00] VITALS: BP 116/83
[2019-03-17 20:20] LABS: BACTERIA,URINE MANY /HPF (NONE SEEN); SQUAMOUS EPITHELIAL CELL,UR FEW /HPF (NONE SEEN)
[2019-03-17] MEDS: MULTIVIT, IRON, MIN NO. 8, FA TABLET GT SCH (21:20)
[2019-03-18 07:02] LABS: BASOPHILS % (AUTO) 0.3 % (0.0-2.0); EOSINOPHILS # (AUTO) 0.1 K/uL (0.0-0.7); EOSINOPHILS % (AUTO) 2.5 % (0.0-7.0); HEMATOCRIT 32.6 % (31.2-41.9); HEMOGLOBIN 11.1 g/dL (10.9-14.3); LYMPHOCYTES # (AUTO) 0.8 K/uL (20.0-40.0); LYMPHOCYTES % (AUTO) 18.3 % (20.5-51.5); MEAN CORPUSCULAR HEMOGLOBIN 30.5 uug (24.7-32.8); MEAN CORPUSCULAR HGB CONC 34 g/dL (32.3-35.6); MEAN CORPUSCULAR VOLUME 89.8 fL (75.5-95.3); MONOCYTES # (AUTO) 0.5 K/uL (2.0-10.0); NEUTROPHILS # (AUTO) 2.9 K/uL (1.8-8.9); NEUTROPHILS % (AUTO) 67.9 % (38.5-71.5); PLATELET COUNT (AUTO) 165 K/uL (179-408); RED BLOOD CELL COUNT(AUTO) 3.63 MIL/uL (3.63-4.92); WHITE BLOOD COUNT (AUTO) 4.3 K/uL (3.8-11.8)
[2019-03-18 07:11] LABS: ALANINE AMINOTRANSFERASE 86 U/L (14-59); ALKALINE PHOSPHATASE 96 U/L (50-136); ASPARTATE AMINOTRANSFERASE 43 U/L (15-37); BILIRUBIN,TOTAL 0.3 mg/dL (0.2-1.0); CARBON DIOXIDE 33 mmol/L (21-32); CHLORIDE 109 mmol/L (98-107); CREATININE 0.4 mg/dL (0.6-1.3); GLUCOSE 103 mg/dL (74-106); MAGNESIUM 1.6 mg/dL (1.8-2.4); PHOSPHOROUS 3.7 mg/dL (2.5-4.9); TOTAL PROTEIN, SERUM 6.8 g/dL (6.4-8.2); UREA NITROGEN, BLOOD 28 mg/dL (7-18)
[2019-03-18 08:05] VITALS: BP 90/55
[2019-03-18] MEDS: LISINOPRIL 10 MG TABLET GT SCH (09:00)
[2019-03-18] MEDS: AMLODIPINE 10 MG TABLET GT SCH (09:00)
[2019-03-18] MEDS: METOPROLOL TARTRATE 50 MG TABLET GT SCH ×2 (09:00→21:07)
[2019-03-18] MEDS: HYDROGEN PEROXIDE 3% 118 ML BOTTLE TP SCH ×2 (09:00→21:07)
[2019-03-18] MEDS: LEVETIRACETAM 500 MG/5 ML LIQUID UDC GT SCH ×2 (09:43→21:04)
[2019-03-18] MEDS: ASPIRIN 81 MG TAB.CHEW GT SCH (09:43)
[2019-03-18] MEDS: VIMPAT 200 MG GT SCH ×2 (09:44→21:09)
[2019-03-18] MEDS: DIAZEPAM 10 MG TABLET GT SCH ×2 (09:48→21:09)
[2019-03-18] MEDS: ASCORBIC ACID 500 MG TABLET GT SCH ×2 (09:48→21:13)
[2019-03-18] MEDS: PHENOBARBITAL 30 MG/7.5 ML LIQUID UDC GT SCH ×2 (09:48→21:13)
[2019-03-18] MEDS: COD LIVER OIL/ZINC OXIDE OINT 113 GM TUBE TP SCH ×2 (09:49)
[2019-03-18] MEDS: Z GUARD REMEDY PASTE 57 GM TUBE TOP SCH ×2 (09:49→21:13)
[2019-03-18] MEDS: VITAMINS A AND D OINT TP SCH ×2 (09:50→21:14)
[2019-03-18] MEDS ORDERED: MAGNESIUM OXIDE 400 MG TABLET GT ONE (12:30)
[2019-03-18 20:06] VITALS: BP 124/78
[2019-03-18] MEDS: ACETAMINOPHEN 650 MG/20 ML UDC- SA PATIENTS-PAIN ONLY GT PRN (20:33)
[2019-03-18] MEDS: MULTIVIT, IRON, MIN NO. 8, FA TABLET GT SCH (21:13)
[2019-03-19 08:30] VITALS: BP 111/68
[2019-03-19] MEDS: COD LIVER OIL/ZINC OXIDE OINT 113 GM TUBE TP SCH ×2 (09:00)
[2019-03-19] MEDS: METOPROLOL TARTRATE 50 MG TABLET GT SCH ×2 (09:00→21:00)
[2019-03-19] MEDS: Z GUARD REMEDY PASTE 57 GM TUBE TOP SCH ×2 (09:00→21:41)
[2019-03-19] MEDS: AMLODIPINE 10 MG TABLET GT SCH (09:00)
[2019-03-19] MEDS: VITAMINS A AND D OINT TP SCH ×2 (09:00→21:41)
[2019-03-19] MEDS: DIAZEPAM 10 MG TABLET GT SCH ×2 (09:00→21:41)
[2019-03-19] MEDS: PHENOBARBITAL 30 MG/7.5 ML LIQUID UDC GT SCH ×2 (09:00→21:40)
[2019-03-19] MEDS: ASCORBIC ACID 500 MG TABLET GT SCH ×2 (09:00→21:41)
[2019-03-19] MEDS: LISINOPRIL 10 MG TABLET GT SCH (09:00)
[2019-03-19] MEDS: HYDROGEN PEROXIDE 3% 118 ML BOTTLE TP SCH ×2 (09:45→21:34)
[2019-03-19] MEDS: ASPIRIN 81 MG TAB.CHEW GT SCH (09:48)
[2019-03-19] MEDS: LEVETIRACETAM 500 MG/5 ML LIQUID UDC GT SCH ×2 (09:56→21:29)
[2019-03-19] MEDS: VIMPAT 200 MG GT SCH ×2 (09:59→21:40)
[2019-03-19] MEDS: ACETAMINOPHEN 650 MG/20 ML UDC- SA PATIENTS-PAIN ONLY GT PRN ×2 (11:33→17:55)
[2019-03-19] MEDS: VITAL AF 1.2 1,000 ML LIQUID GT PRN (13:33)
[2019-03-19 20:34] VITALS: BP 100/65
[2019-03-19] MEDS: MULTIVIT, IRON, MIN NO. 8, FA TABLET GT SCH (21:40)
[2019-03-19] MEDS ORDERED: MEROPENEM 0.5 G in IV NORMAL SALINE 50 ML IV ONE (22:00)
[2019-03-20] MEDS: MEROPENEM 0.5 G in IV NORMAL SALINE 50 ML IV SCH ×3 (05:21→22:39)
[2019-03-20] MEDS ORDERED: MEROPENEM 0.5 G in IV NORMAL SALINE 50 ML IV SCH (06:00)
[2019-03-20] MEDS: VIMPAT 200 MG GT SCH ×2 (08:06→21:02)
[2019-03-20] MEDS: METOPROLOL TARTRATE 50 MG TABLET GT SCH ×2 (08:06→21:00)
[2019-03-20] MEDS: ASPIRIN 81 MG TAB.CHEW GT SCH (08:06)
[2019-03-20] MEDS: LEVETIRACETAM 500 MG/5 ML LIQUID UDC GT SCH ×2 (08:06→21:00)
[2019-03-20] MEDS: DIAZEPAM 10 MG TABLET GT SCH ×2 (08:07→21:02)
[2019-03-20] MEDS: LISINOPRIL 10 MG TABLET GT SCH (08:07)
[2019-03-20] MEDS: ASCORBIC ACID 500 MG TABLET GT SCH ×2 (08:07→21:02)
[2019-03-20] MEDS: AMLODIPINE 10 MG TABLET GT SCH (08:07)
[2019-03-20] MEDS: Z GUARD REMEDY PASTE 57 GM TUBE TOP SCH ×2 (08:07→21:02)
[2019-03-20] MEDS: PHENOBARBITAL 30 MG/7.5 ML LIQUID UDC GT SCH ×2 (08:07→21:02)
[2019-03-20] MEDS: COD LIVER OIL/ZINC OXIDE OINT 113 GM TUBE TP SCH ×2 (08:08)
[2019-03-20] MEDS: VITAMINS A AND D OINT TP SCH ×2 (08:08→21:02)
[2019-03-20 08:30] VITALS: BP 122/80
[2019-03-20] MEDS: HYDROGEN PEROXIDE 3% 118 ML BOTTLE TP SCH ×2 (08:55→21:06)
[2019-03-20 20:18] VITALS: BP 100/68
[2019-03-20] MEDS: MULTIVIT, IRON, MIN NO. 8, FA TABLET GT SCH (21:02)
[2019-03-21] MEDS: VITAL AF 1.2 1,000 ML LIQUID GT PRN ×2 (00:06→17:02)
[2019-03-21] MEDS: MEROPENEM 0.5 G in IV NORMAL SALINE 50 ML IV SCH ×3 (05:53→22:00)
[2019-03-21] MEDS: HYDROGEN PEROXIDE 3% 118 ML BOTTLE TP SCH ×2 (07:38→20:30)
[2019-03-21] MEDS: ASPIRIN 81 MG TAB.CHEW GT SCH (08:33)
[2019-03-21] MEDS: LEVETIRACETAM 500 MG/5 ML LIQUID UDC GT SCH ×2 (08:33→21:05)
[2019-03-21] MEDS: AMLODIPINE 10 MG TABLET GT SCH (08:34)
[2019-03-21] MEDS: VIMPAT 200 MG GT SCH ×2 (08:34→21:05)
[2019-03-21] MEDS: METOPROLOL TARTRATE 50 MG TABLET GT SCH ×2 (08:34→21:05)
[2019-03-21] MEDS: DIAZEPAM 10 MG TABLET GT SCH ×2 (08:35→21:06)
[2019-03-21] MEDS: LISINOPRIL 10 MG TABLET GT SCH (08:35)
[2019-03-21] MEDS: VITAMINS A AND D OINT TP SCH ×2 (08:35→21:06)
[2019-03-21] MEDS: Z GUARD REMEDY PASTE 57 GM TUBE TOP SCH ×2 (08:35→21:06)
[2019-03-21] MEDS: ASCORBIC ACID 500 MG TABLET GT SCH ×2 (08:35→21:06)
[2019-03-21] MEDS: COD LIVER OIL/ZINC OXIDE OINT 113 GM TUBE TP SCH ×2 (08:35)
[2019-03-21] MEDS: PHENOBARBITAL 30 MG/7.5 ML LIQUID UDC GT SCH ×2 (08:35→21:05)
[2019-03-21 11:41] VITALS: BP 105/63
[2019-03-21 20:00] VITALS: BP 133/78
[2019-03-21] MEDS: MULTIVIT, IRON, MIN NO. 8, FA TABLET GT SCH (21:05)
[2019-03-22] MEDS: VITAL AF 1.2 1,000 ML LIQUID GT PRN (06:18)
[2019-03-22] MEDS: MEROPENEM 0.5 G in IV NORMAL SALINE 50 ML IV SCH ×3 (06:24→22:14)
[2019-03-22] MEDS: LEVETIRACETAM 500 MG/5 ML LIQUID UDC GT SCH ×2 (08:19→21:53)
[2019-03-22] MEDS: ASPIRIN 81 MG TAB.CHEW GT SCH (08:19)
[2019-03-22] MEDS: METOPROLOL TARTRATE 50 MG TABLET GT SCH ×2 (08:21→21:54)
[2019-03-22] MEDS: AMLODIPINE 10 MG TABLET GT SCH (08:21)
[2019-03-22] MEDS: DIAZEPAM 10 MG TABLET GT SCH ×2 (08:21→21:54)
[2019-03-22] MEDS: PHENOBARBITAL 30 MG/7.5 ML LIQUID UDC GT SCH ×2 (08:21→21:54)
[2019-03-22] MEDS: LISINOPRIL 10 MG TABLET GT SCH (08:21)
[2019-03-22] MEDS: VIMPAT 200 MG GT SCH ×2 (08:21→21:54)
[2019-03-22] MEDS: ASCORBIC ACID 500 MG TABLET GT SCH ×2 (08:21→21:54)
[2019-03-22] MEDS: COD LIVER OIL/ZINC OXIDE OINT 113 GM TUBE TP SCH (08:22)
[2019-03-22] MEDS: VITAMINS A AND D OINT TP SCH ×2 (08:22→21:54)
[2019-03-22] MEDS: Z GUARD REMEDY PASTE 57 GM TUBE TOP SCH ×2 (08:22→21:54)
[2019-03-22] MEDS: HYDROGEN PEROXIDE 3% 118 ML BOTTLE TP SCH ×2 (09:00→20:56)
[2019-03-22 11:42] VITALS: BP 117/77
[2019-03-22 20:29] VITALS: BP 151/94
[2019-03-22] MEDS: MULTIVIT, IRON, MIN NO. 8, FA TABLET GT SCH (21:54)
[2019-03-23] MEDS: MEROPENEM 0.5 G in IV NORMAL SALINE 50 ML IV SCH ×3 (05:14→22:06)
[2019-03-23] MEDS: ASPIRIN 81 MG TAB.CHEW GT SCH (08:30)
[2019-03-23] MEDS: LEVETIRACETAM 500 MG/5 ML LIQUID UDC GT SCH ×2 (08:32→20:10)
[2019-03-23] MEDS: METOPROLOL TARTRATE 50 MG TABLET GT SCH ×2 (08:33→20:11)
[2019-03-23] MEDS: VIMPAT 200 MG GT SCH ×2 (08:33→20:11)
[2019-03-23] MEDS: ASCORBIC ACID 500 MG TABLET GT SCH ×2 (08:34→20:12)
[2019-03-23] MEDS: AMLODIPINE 10 MG TABLET GT SCH (08:34)
[2019-03-23] MEDS: DIAZEPAM 10 MG TABLET GT SCH ×2 (08:34→20:11)
[2019-03-23] MEDS: PHENOBARBITAL 30 MG/7.5 ML LIQUID UDC GT SCH ×2 (08:34→20:11)
[2019-03-23] MEDS: LISINOPRIL 10 MG TABLET GT SCH (08:34)
[2019-03-23] MEDS: VITAMINS A AND D OINT TP SCH ×2 (08:36→20:12)
[2019-03-23] MEDS: COD LIVER OIL/ZINC OXIDE OINT 113 GM TUBE TP SCH (08:36)
[2019-03-23] MEDS: Z GUARD REMEDY PASTE 57 GM TUBE TOP SCH ×2 (08:36→20:12)
[2019-03-23] MEDS: HYDROGEN PEROXIDE 3% 118 ML BOTTLE TP SCH ×2 (08:46→21:11)
[2019-03-23 09:23] VITALS: BP 121/70
[2019-03-23] MEDS: MULTIVIT, IRON, MIN NO. 8, FA TABLET GT SCH (20:11)
[2019-03-23 21:03] VITALS: BP 126/70
[2019-03-24] MEDS: MEROPENEM 0.5 G in IV NORMAL SALINE 50 ML IV SCH ×3 (05:30→21:43)
[2019-03-24 08:00] VITALS: BP 131/60
[2019-03-24] MEDS: HYDROGEN PEROXIDE 3% 118 ML BOTTLE TP SCH ×2 (08:10→21:34)
[2019-03-24] MEDS: Z GUARD REMEDY PASTE 57 GM TUBE TOP SCH ×2 (09:00→21:08)
[2019-03-24] MEDS: LISINOPRIL 10 MG TABLET GT SCH (09:00)
[2019-03-24] MEDS: PHENOBARBITAL 30 MG/7.5 ML LIQUID UDC GT SCH ×2 (09:00→21:08)
[2019-03-24] MEDS: VIMPAT 200 MG GT SCH ×2 (09:00→21:08)
[2019-03-24] MEDS: VITAMINS A AND D OINT TP SCH ×2 (09:00→21:08)
[2019-03-24] MEDS: AMLODIPINE 10 MG TABLET GT SCH (09:00)
[2019-03-24] MEDS: COD LIVER OIL/ZINC OXIDE OINT 113 GM TUBE TP SCH (09:00)
[2019-03-24] MEDS: DIAZEPAM 10 MG TABLET GT SCH ×2 (09:00→21:08)
[2019-03-24] MEDS: ASCORBIC ACID 500 MG TABLET GT SCH ×2 (09:00→21:08)
[2019-03-24] MEDS: ASPIRIN 81 MG TAB.CHEW GT SCH (09:58)
[2019-03-24] MEDS: METOPROLOL TARTRATE 50 MG TABLET GT SCH ×2 (09:59→21:07)
[2019-03-24] MEDS: LEVETIRACETAM 500 MG/5 ML LIQUID UDC GT SCH ×2 (09:59→21:06)
[2019-03-24] MEDS: VITAL AF 1.2 1,000 ML LIQUID GT PRN (10:01)
[2019-03-24 20:25] VITALS: BP 129/61
[2019-03-24] MEDS ORDERED: LACOSAMIDE 50 MG TABLET GT SCH (21:00)
[2019-03-24] MEDS: MULTIVIT, IRON, MIN NO. 8, FA TABLET GT SCH (21:08)
[2019-03-25] MEDS: VITAL AF 1.2 1,000 ML LIQUID GT PRN ×2 (00:54→16:28)
[2019-03-25 08:09] VITALS: BP 136/77
[2019-03-25] MEDS: HYDROGEN PEROXIDE 3% 118 ML BOTTLE TP SCH ×2 (08:34→21:00)
[2019-03-25] MEDS: LEVETIRACETAM 500 MG/5 ML LIQUID UDC GT SCH ×2 (08:39→21:11)
[2019-03-25] MEDS: ASPIRIN 81 MG TAB.CHEW GT SCH (08:39)
[2019-03-25] MEDS: VIMPAT 200 MG GT SCH ×2 (08:42→21:11)
[2019-03-25] MEDS: METOPROLOL TARTRATE 50 MG TABLET GT SCH ×2 (08:42→21:11)
[2019-03-25] MEDS: AMLODIPINE 10 MG TABLET GT SCH (08:42)
[2019-03-25] MEDS: COD LIVER OIL/ZINC OXIDE OINT 113 GM TUBE TP SCH (08:43)
[2019-03-25] MEDS: DIAZEPAM 10 MG TABLET GT SCH ×2 (08:43→21:12)
[2019-03-25] MEDS: VITAMINS A AND D OINT TP SCH ×2 (08:43→21:12)
[2019-03-25] MEDS: PHENOBARBITAL 30 MG/7.5 ML LIQUID UDC GT SCH ×2 (08:43→21:11)
[2019-03-25] MEDS: LISINOPRIL 10 MG TABLET GT SCH (08:43)
[2019-03-25] MEDS: ASCORBIC ACID 500 MG TABLET GT SCH ×2 (08:43→21:12)
[2019-03-25] MEDS: Z GUARD REMEDY PASTE 57 GM TUBE TOP SCH ×2 (08:43→21:12)
[2019-03-25] MEDS: MULTIVIT, IRON, MIN NO. 8, FA TABLET GT SCH (21:12)
[2019-03-25 21:17] VITALS: BP 130/86
[2019-03-26] MEDS: VITAL AF 1.2 1,000 ML LIQUID GT PRN ×2 (05:00→21:21)
[2019-03-26 08:07] VITALS: BP 114/69
[2019-03-26] MEDS: LEVETIRACETAM 500 MG/5 ML LIQUID UDC GT SCH ×2 (08:45→21:03)
[2019-03-26] MEDS: ASPIRIN 81 MG TAB.CHEW GT SCH (08:45)
[2019-03-26] MEDS: VIMPAT 200 MG GT SCH ×2 (08:46→21:04)
[2019-03-26] MEDS: METOPROLOL TARTRATE 50 MG TABLET GT SCH ×2 (08:46→21:03)
[2019-03-26] MEDS: AMLODIPINE 10 MG TABLET GT SCH (08:46)
[2019-03-26] MEDS: PHENOBARBITAL 30 MG/7.5 ML LIQUID UDC GT SCH ×2 (08:46→21:04)
[2019-03-26] MEDS: COD LIVER OIL/ZINC OXIDE OINT 113 GM TUBE TP SCH (08:47)
[2019-03-26] MEDS: Z GUARD REMEDY PASTE 57 GM TUBE TOP SCH ×2 (08:47→21:04)
[2019-03-26] MEDS: LISINOPRIL 10 MG TABLET GT SCH (08:47)
[2019-03-26] MEDS: DIAZEPAM 10 MG TABLET GT SCH ×2 (08:47→21:04)
[2019-03-26] MEDS: VITAMINS A AND D OINT TP SCH ×2 (08:47→21:04)
[2019-03-26] MEDS: ASCORBIC ACID 500 MG TABLET GT SCH ×2 (08:47→21:04)
[2019-03-26] MEDS: HYDROGEN PEROXIDE 3% 118 ML BOTTLE TP SCH ×2 (09:40→21:13)
[2019-03-26 20:34] VITALS: BP 154/89
[2019-03-26] MEDS: MULTIVIT, IRON, MIN NO. 8, FA TABLET GT SCH (21:04)
[2019-03-27] MEDS: HYDROGEN PEROXIDE 3% 118 ML BOTTLE TP PRN (07:54)
[2019-03-27 08:00] VITALS: BP 105/63
[2019-03-27] MEDS: ASPIRIN 81 MG TAB.CHEW GT SCH (08:10)
[2019-03-27] MEDS: LEVETIRACETAM 500 MG/5 ML LIQUID UDC GT SCH ×2 (08:11→21:11)
[2019-03-27] MEDS: VIMPAT 200 MG GT SCH ×2 (08:11→21:12)
[2019-03-27] MEDS: DIAZEPAM 10 MG TABLET GT SCH ×2 (08:11→21:12)
[2019-03-27] MEDS: PHENOBARBITAL 30 MG/7.5 ML LIQUID UDC GT SCH ×2 (08:11→21:12)
[2019-03-27] MEDS: COD LIVER OIL/ZINC OXIDE OINT 113 GM TUBE TP SCH (08:12)
[2019-03-27] MEDS: Z GUARD REMEDY PASTE 57 GM TUBE TOP SCH ×2 (08:12→21:12)
[2019-03-27] MEDS: VITAMINS A AND D OINT TP SCH ×2 (08:12→21:12)
[2019-03-27] MEDS: ASCORBIC ACID 500 MG TABLET GT SCH ×2 (08:12→21:12)
[2019-03-27] MEDS: METOPROLOL TARTRATE 50 MG TABLET GT SCH ×2 (08:17→21:12)
[2019-03-27] MEDS: LISINOPRIL 10 MG TABLET GT SCH (08:18)
[2019-03-27] MEDS: AMLODIPINE 10 MG TABLET GT SCH (08:19)
[2019-03-27] MEDS: HYDROGEN PEROXIDE 3% 118 ML BOTTLE TP SCH ×2 (09:00→21:00)
[2019-03-27] MEDS: MULTIVIT, IRON, MIN NO. 8, FA TABLET GT SCH (21:12)
[2019-03-27 22:05] VITALS: BP 154/94
[2019-03-28 08:07] VITALS: BP 107/68
[2019-03-28] MEDS: HYDROGEN PEROXIDE 3% 118 ML BOTTLE TP SCH ×2 (08:14→21:00)
[2019-03-28] MEDS: ASPIRIN 81 MG TAB.CHEW GT SCH (08:39)
[2019-03-28] MEDS: LEVETIRACETAM 500 MG/5 ML LIQUID UDC GT SCH ×2 (08:39→20:44)
[2019-03-28] MEDS: METOPROLOL TARTRATE 50 MG TABLET GT SCH ×2 (08:46→20:44)
[2019-03-28] MEDS: VIMPAT 200 MG GT SCH ×2 (08:47→20:44)
[2019-03-28] MEDS: PHENOBARBITAL 30 MG/7.5 ML LIQUID UDC GT SCH ×2 (08:47→20:44)
[2019-03-28] MEDS: LISINOPRIL 10 MG TABLET GT SCH (08:47)
[2019-03-28] MEDS: ASCORBIC ACID 500 MG TABLET GT SCH ×2 (08:47→20:45)
[2019-03-28] MEDS: AMLODIPINE 10 MG TABLET GT SCH (08:47)
[2019-03-28] MEDS: DIAZEPAM 10 MG TABLET GT SCH ×2 (08:47→20:45)
[2019-03-28] MEDS: Z GUARD REMEDY PASTE 57 GM TUBE TOP SCH ×2 (08:48→20:45)
[2019-03-28] MEDS: COD LIVER OIL/ZINC OXIDE OINT 113 GM TUBE TP SCH (08:48)
[2019-03-28] MEDS: VITAMINS A AND D OINT TP SCH ×2 (08:48→20:45)
[2019-03-28] MEDS: VITAL AF 1.2 1,000 ML LIQUID GT PRN (11:42)
[2019-03-28] MEDS: MULTIVIT, IRON, MIN NO. 8, FA TABLET GT SCH (20:45)
[2019-03-28 22:25] VITALS: BP 124/79
[2019-03-29] MEDS: VITAL AF 1.2 1,000 ML LIQUID GT PRN ×2 (02:34→18:05)
[2019-03-29 07:30] VITALS: BP 123/81
[2019-03-29] MEDS: LEVETIRACETAM 500 MG/5 ML LIQUID UDC GT SCH ×2 (08:21→20:23)
[2019-03-29] MEDS: ASPIRIN 81 MG TAB.CHEW GT SCH (08:21)
[2019-03-29] MEDS: METOPROLOL TARTRATE 50 MG TABLET GT SCH ×2 (08:22→20:23)
[2019-03-29] MEDS: VIMPAT 200 MG GT SCH ×2 (08:22→20:24)
[2019-03-29] MEDS: PHENOBARBITAL 30 MG/7.5 ML LIQUID UDC GT SCH ×2 (08:23→20:24)
[2019-03-29] MEDS: AMLODIPINE 10 MG TABLET GT SCH (08:23)
[2019-03-29] MEDS: COD LIVER OIL/ZINC OXIDE OINT 113 GM TUBE TP SCH (08:24)
[2019-03-29] MEDS: ASCORBIC ACID 500 MG TABLET GT SCH ×2 (08:24→20:24)
[2019-03-29] MEDS: Z GUARD REMEDY PASTE 57 GM TUBE TOP SCH ×2 (08:24→20:24)
[2019-03-29] MEDS: VITAMINS A AND D OINT TP SCH ×2 (08:24→20:25)
[2019-03-29] MEDS: DIAZEPAM 10 MG TABLET GT SCH ×2 (08:24→20:24)
[2019-03-29] MEDS: LISINOPRIL 10 MG TABLET GT SCH (08:24)
[2019-03-29] MEDS: HYDROGEN PEROXIDE 3% 118 ML BOTTLE TP SCH ×2 (09:00→20:24)
[2019-03-29] MEDS: MULTIVIT, IRON, MIN NO. 8, FA TABLET GT SCH (20:24)
[2019-03-29] MEDS: HYDROGEN PEROXIDE 3% 118 ML BOTTLE TP PRN (20:33)
[2019-03-29 23:13] VITALS: BP 129/63
[2019-03-30 07:11] LABS: BASOPHILS % (AUTO) 0.4 % (0.0-2.0); EOSINOPHILS # (AUTO) 0.2 K/uL (0.0-0.7); EOSINOPHILS % (AUTO) 2.5 % (0.0-7.0); HEMATOCRIT 33.3 % (31.2-41.9); HEMOGLOBIN 11.5 g/dL (10.9-14.3); LYMPHOCYTES # (AUTO) 1.4 K/uL (20.0-40.0); LYMPHOCYTES % (AUTO) 18.3 % (20.5-51.5); MEAN CORPUSCULAR HEMOGLOBIN 29.9 uug (24.7-32.8); MEAN CORPUSCULAR HGB CONC 35 g/dL (32.3-35.6); MEAN CORPUSCULAR VOLUME 86.6 fL (75.5-95.3); MONOCYTES # (AUTO) 0.5 K/uL (2.0-10.0); MONOCYTES % (AUTO) 6.6 % (0.0-11.0); NEUTROPHILS # (AUTO) 5.3 K/uL (1.8-8.9); NEUTROPHILS % (AUTO) 72.2 % (38.5-71.5); RED BLOOD CELL COUNT(AUTO) 3.85 MIL/uL (3.63-4.92)
[2019-03-30 07:18] LABS: CARBON DIOXIDE 33 mmol/L (21-32); CHLORIDE 107 mmol/L (98-107); CREATININE 0.3 mg/dL (0.6-1.3); GLUCOSE 109 mg/dL (74-106); POTASSIUM 4.1 mmol/L (3.5-5.1); UREA NITROGEN, BLOOD 22 mg/dL (7-18)
[2019-03-30 07:23] LABS: PLATELET COUNT (AUTO) 219 K/uL (179-408); WHITE BLOOD COUNT (AUTO) 7.4 K/uL (3.8-11.8)
[2019-03-30 08:09] VITALS: BP 110/78
[2019-03-30] MEDS: LEVETIRACETAM 500 MG/5 ML LIQUID UDC GT SCH ×2 (08:52→21:18)
[2019-03-30] MEDS: ASPIRIN 81 MG TAB.CHEW GT SCH (08:52)
[2019-03-30] MEDS: VIMPAT 200 MG GT SCH ×2 (08:53→21:19)
[2019-03-30] MEDS: METOPROLOL TARTRATE 50 MG TABLET GT SCH ×2 (08:53→21:18)
[2019-03-30] MEDS: AMLODIPINE 10 MG TABLET GT SCH (08:53)
[2019-03-30] MEDS: PHENOBARBITAL 30 MG/7.5 ML LIQUID UDC GT SCH ×2 (08:54→21:19)
[2019-03-30] MEDS: LISINOPRIL 10 MG TABLET GT SCH (08:54)
[2019-03-30] MEDS: DIAZEPAM 10 MG TABLET GT SCH ×2 (08:54→21:19)
[2019-03-30] MEDS: COD LIVER OIL/ZINC OXIDE OINT 113 GM TUBE TP SCH (08:54)
[2019-03-30] MEDS: ASCORBIC ACID 500 MG TABLET GT SCH ×2 (08:54→21:19)
[2019-03-30] MEDS: Z GUARD REMEDY PASTE 57 GM TUBE TOP SCH ×2 (08:55→21:19)
[2019-03-30] MEDS: VITAMINS A AND D OINT TP SCH ×2 (08:55→21:20)
[2019-03-30] MEDS: HYDROGEN PEROXIDE 3% 118 ML BOTTLE TP SCH ×2 (09:00→21:39)
[2019-03-30] MEDS: VITAL AF 1.2 1,000 ML LIQUID GT PRN (13:21)
[2019-03-30 20:12] VITALS: BP 127/80
[2019-03-30] MEDS: MULTIVIT, IRON, MIN NO. 8, FA TABLET GT SCH (21:19)
[2019-03-31] MEDS: VITAL AF 1.2 1,000 ML LIQUID GT PRN ×2 (07:17→22:12)
[2019-03-31 08:09] VITALS: BP 126/71
[2019-03-31] MEDS: METOPROLOL TARTRATE 50 MG TABLET GT SCH ×2 (08:26→21:31)
[2019-03-31] MEDS: LEVETIRACETAM 500 MG/5 ML LIQUID UDC GT SCH ×2 (08:26→21:30)
[2019-03-31] MEDS: VIMPAT 200 MG GT SCH ×2 (08:26→21:31)
[2019-03-31] MEDS: ASPIRIN 81 MG TAB.CHEW GT SCH (08:26)
[2019-03-31] MEDS: ASCORBIC ACID 500 MG TABLET GT SCH ×2 (08:27→21:31)
[2019-03-31] MEDS: AMLODIPINE 10 MG TABLET GT SCH (08:27)
[2019-03-31] MEDS: PHENOBARBITAL 30 MG/7.5 ML LIQUID UDC GT SCH ×2 (08:27→21:31)
[2019-03-31] MEDS: LISINOPRIL 10 MG TABLET GT SCH (08:27)
[2019-03-31] MEDS: VITAMINS A AND D OINT TP SCH ×2 (08:27→21:32)
[2019-03-31] MEDS: DIAZEPAM 10 MG TABLET GT SCH ×2 (08:27→21:31)
[2019-03-31] MEDS: Z GUARD REMEDY PASTE 57 GM TUBE TOP SCH ×2 (08:27→21:32)
[2019-03-31] MEDS: COD LIVER OIL/ZINC OXIDE OINT 113 GM TUBE TP SCH (08:27)
[2019-03-31] MEDS: HYDROGEN PEROXIDE 3% 118 ML BOTTLE TP SCH ×2 (09:00→20:17)
[2019-03-31 20:02] VITALS: BP 124/88
[2019-03-31] MEDS: MULTIVIT, IRON, MIN NO. 8, FA TABLET GT SCH (21:31)
[2019-04-01 08:30] VITALS: BP 113/68
[2019-04-01] MEDS: LEVETIRACETAM 500 MG/5 ML LIQUID UDC GT SCH ×2 (08:35→21:40)
[2019-04-01] MEDS: METOPROLOL TARTRATE 50 MG TABLET GT SCH ×2 (08:35→21:40)
[2019-04-01] MEDS: ASPIRIN 81 MG TAB.CHEW GT SCH (08:35)
[2019-04-01] MEDS: VIMPAT 200 MG GT SCH ×2 (08:36→21:40)
[2019-04-01] MEDS: PHENOBARBITAL 30 MG/7.5 ML LIQUID UDC GT SCH ×2 (08:36→21:40)
[2019-04-01] MEDS: AMLODIPINE 10 MG TABLET GT SCH (08:36)
[2019-04-01] MEDS: LISINOPRIL 10 MG TABLET GT SCH (08:36)
[2019-04-01] MEDS: DIAZEPAM 10 MG TABLET GT SCH ×2 (08:37→21:40)
[2019-04-01] MEDS: COD LIVER OIL/ZINC OXIDE OINT 113 GM TUBE TP SCH (08:37)
[2019-04-01] MEDS: Z GUARD REMEDY PASTE 57 GM TUBE TOP SCH ×2 (08:37→21:41)
[2019-04-01] MEDS: VITAMINS A AND D OINT TP SCH ×2 (08:37→21:41)
[2019-04-01] MEDS: ASCORBIC ACID 500 MG TABLET GT SCH ×2 (08:37→21:40)
[2019-04-01] MEDS: HYDROGEN PEROXIDE 3% 118 ML BOTTLE TP SCH ×2 (09:21→21:00)
[2019-04-01 20:18] VITALS: BP 142/95
[2019-04-01] MEDS: MULTIVIT, IRON, MIN NO. 8, FA TABLET GT SCH (21:40)
[2019-04-02] MEDS: VIMPAT 200 MG GT SCH ×2 (09:00→20:07)
[2019-04-02] MEDS: DIAZEPAM 10 MG TABLET GT SCH ×2 (09:00→20:08)
[2019-04-02] MEDS: VITAMINS A AND D OINT TP SCH ×2 (09:00→20:08)
[2019-04-02] MEDS: PHENOBARBITAL 30 MG/7.5 ML LIQUID UDC GT SCH ×2 (09:00→20:08)
[2019-04-02] MEDS: Z GUARD REMEDY PASTE 57 GM TUBE TOP SCH ×2 (09:00→20:08)
[2019-04-02] MEDS: COD LIVER OIL/ZINC OXIDE OINT 113 GM TUBE TP SCH (09:00)
[2019-04-02] MEDS: ASPIRIN 81 MG TAB.CHEW GT SCH (09:00)
[2019-04-02] MEDS: AMLODIPINE 10 MG TABLET GT SCH (09:00)
[2019-04-02] MEDS: METOPROLOL TARTRATE 50 MG TABLET GT SCH ×2 (09:00→21:20)
[2019-04-02] MEDS: ASCORBIC ACID 500 MG TABLET GT SCH ×2 (09:00→20:08)
[2019-04-02] MEDS: LEVETIRACETAM 500 MG/5 ML LIQUID UDC GT SCH ×2 (09:00→20:07)
[2019-04-02] MEDS: LISINOPRIL 10 MG TABLET GT SCH (09:00)
[2019-04-02] MEDS: HYDROGEN PEROXIDE 3% 118 ML BOTTLE TP SCH ×2 (09:13→21:00)
[2019-04-02 11:16] VITALS: BP 122/77
[2019-04-02] MEDS: VITAL AF 1.2 1,000 ML LIQUID GT PRN (17:45)
[2019-04-02] MEDS: MULTIVIT, IRON, MIN NO. 8, FA TABLET GT SCH (20:08)
[2019-04-02 21:19] VITALS: BP 138/81
[2019-04-02 23:00] VITALS: BP 119/71
[2019-04-03] MEDS: VITAL AF 1.2 1,000 ML LIQUID GT PRN (05:00)
[2019-04-03] MEDS: HYDROGEN PEROXIDE 3% 118 ML BOTTLE TP SCH ×2 (07:46→21:14)
[2019-04-03] MEDS: ASPIRIN 81 MG TAB.CHEW GT SCH (08:04)
[2019-04-03] MEDS: LEVETIRACETAM 500 MG/5 ML LIQUID UDC GT SCH ×2 (08:04→21:18)
[2019-04-03] MEDS: LISINOPRIL 10 MG TABLET GT SCH (08:05)
[2019-04-03] MEDS: PHENOBARBITAL 30 MG/7.5 ML LIQUID UDC GT SCH ×2 (08:05→21:19)
[2019-04-03] MEDS: VIMPAT 200 MG GT SCH ×2 (08:05→21:19)
[2019-04-03] MEDS: METOPROLOL TARTRATE 50 MG TABLET GT SCH ×2 (08:05→21:13)
[2019-04-03] MEDS: AMLODIPINE 10 MG TABLET GT SCH (08:05)
[2019-04-03] MEDS: DIAZEPAM 10 MG TABLET GT SCH ×2 (08:05→21:19)
[2019-04-03] MEDS: COD LIVER OIL/ZINC OXIDE OINT 113 GM TUBE TP SCH (08:06)
[2019-04-03] MEDS: Z GUARD REMEDY PASTE 57 GM TUBE TOP SCH ×2 (08:06→21:14)
[2019-04-03] MEDS: VITAMINS A AND D OINT TP SCH ×2 (08:06→21:14)
[2019-04-03] MEDS: ASCORBIC ACID 500 MG TABLET GT SCH ×2 (08:06→21:14)
[2019-04-03 13:51] VITALS: BP 142/92
[2019-04-03 19:50] VITALS: BP 123/81
[2019-04-03] MEDS: MULTIVIT, IRON, MIN NO. 8, FA TABLET GT SCH (21:13)
[2019-04-04] MEDS: VITAL AF 1.2 1,000 ML LIQUID GT PRN ×2 (01:33→14:20)
[2019-04-04] MEDS: HYDROGEN PEROXIDE 3% 118 ML BOTTLE TP SCH ×2 (07:30→21:08)
[2019-04-04] MEDS: ASPIRIN 81 MG TAB.CHEW GT SCH (08:09)
[2019-04-04] MEDS: LEVETIRACETAM 500 MG/5 ML LIQUID UDC GT SCH ×2 (08:09→21:30)
[2019-04-04] MEDS: METOPROLOL TARTRATE 50 MG TABLET GT SCH ×2 (08:10→21:30)
[2019-04-04] MEDS: PHENOBARBITAL 30 MG/7.5 ML LIQUID UDC GT SCH ×2 (08:11→21:44)
[2019-04-04] MEDS: AMLODIPINE 10 MG TABLET GT SCH (08:11)
[2019-04-04] MEDS: VIMPAT 200 MG GT SCH ×2 (08:11→21:44)
[2019-04-04] MEDS: ASCORBIC ACID 500 MG TABLET GT SCH ×2 (08:12→21:30)
[2019-04-04] MEDS: LISINOPRIL 10 MG TABLET GT SCH (08:12)
[2019-04-04] MEDS: Z GUARD REMEDY PASTE 57 GM TUBE TOP SCH ×2 (08:12→21:30)
[2019-04-04] MEDS: COD LIVER OIL/ZINC OXIDE OINT 113 GM TUBE TP SCH (08:12)
[2019-04-04] MEDS: DIAZEPAM 10 MG TABLET GT SCH ×2 (08:12→21:43)
[2019-04-04] MEDS: VITAMINS A AND D OINT TP SCH ×2 (08:12→21:30)
[2019-04-04] MEDS: MULTIVIT, IRON, MIN NO. 8, FA TABLET GT SCH (21:30)
[2019-04-04 22:10] VITALS: BP 143/99
[2019-04-05 08:00] VITALS: BP 127/82
[2019-04-05] MEDS: AMLODIPINE 10 MG TABLET GT SCH (08:07)
[2019-04-05] MEDS: METOPROLOL TARTRATE 50 MG TABLET GT SCH ×2 (08:07→21:00)
[2019-04-05] MEDS: LISINOPRIL 10 MG TABLET GT SCH (08:08)
[2019-04-05] MEDS: VIMPAT 200 MG GT SCH ×2 (08:11→21:00)
[2019-04-05] MEDS: ASPIRIN 81 MG TAB.CHEW GT SCH (08:11)
[2019-04-05] MEDS: LEVETIRACETAM 500 MG/5 ML LIQUID UDC GT SCH ×2 (08:11→21:00)
[2019-04-05] MEDS: COD LIVER OIL/ZINC OXIDE OINT 113 GM TUBE TP SCH (08:11)
[2019-04-05] MEDS: DIAZEPAM 10 MG TABLET GT SCH ×2 (08:11→21:00)
[2019-04-05] MEDS: ASCORBIC ACID 500 MG TABLET GT SCH ×2 (08:11→21:00)
[2019-04-05] MEDS: VITAMINS A AND D OINT TP SCH ×2 (08:11→21:00)
[2019-04-05] MEDS: Z GUARD REMEDY PASTE 57 GM TUBE TOP SCH ×2 (08:11→21:00)
[2019-04-05] MEDS: PHENOBARBITAL 30 MG/7.5 ML LIQUID UDC GT SCH ×2 (08:11→21:00)
[2019-04-05] MEDS: HYDROGEN PEROXIDE 3% 118 ML BOTTLE TP SCH ×2 (09:50→21:23)
[2019-04-05] MEDS: VITAL AF 1.2 1,000 ML LIQUID GT PRN (10:22)
[2019-04-05] MEDS: MULTIVIT, IRON, MIN NO. 8, FA TABLET GT SCH (21:00)
[2019-04-05 21:06] VITALS: BP 151/92
[2019-04-06] MEDS: VITAL AF 1.2 1,000 ML LIQUID GT PRN ×2 (03:49→16:46)
[2019-04-06 08:00] VITALS: BP 120/90
[2019-04-06] MEDS: HYDROGEN PEROXIDE 3% 118 ML BOTTLE TP SCH ×2 (09:00→20:52)
[2019-04-06] MEDS: ASPIRIN 81 MG TAB.CHEW GT SCH (09:34)
[2019-04-06] MEDS: LEVETIRACETAM 500 MG/5 ML LIQUID UDC GT SCH ×2 (09:34→21:33)
[2019-04-06] MEDS: AMLODIPINE 10 MG TABLET GT SCH (09:36)
[2019-04-06] MEDS: PHENOBARBITAL 30 MG/7.5 ML LIQUID UDC GT SCH ×2 (09:36→21:33)
[2019-04-06] MEDS: METOPROLOL TARTRATE 50 MG TABLET GT SCH ×2 (09:36→21:33)
[2019-04-06] MEDS: VIMPAT 200 MG GT SCH ×2 (09:36→21:33)
[2019-04-06] MEDS: LISINOPRIL 10 MG TABLET GT SCH (09:37)
[2019-04-06] MEDS: ASCORBIC ACID 500 MG TABLET GT SCH ×2 (09:37→21:33)
[2019-04-06] MEDS: DIAZEPAM 10 MG TABLET GT SCH ×2 (09:37→21:33)
[2019-04-06] MEDS: VITAMINS A AND D OINT TP SCH ×2 (09:49→21:34)
[2019-04-06] MEDS: Z GUARD REMEDY PASTE 57 GM TUBE TOP SCH ×2 (09:49→21:33)
[2019-04-06 20:26] VITALS: BP 126/74
[2019-04-06] MEDS: MULTIVIT, IRON, MIN NO. 8, FA TABLET GT SCH (21:33)
[2019-04-07] MEDS: HYDROGEN PEROXIDE 3% 118 ML BOTTLE TP SCH ×2 (09:22→21:10)
[2019-04-07] MEDS: LEVETIRACETAM 500 MG/5 ML LIQUID UDC GT SCH ×2 (09:27→21:14)
[2019-04-07] MEDS: ASPIRIN 81 MG TAB.CHEW GT SCH (09:27)
[2019-04-07] MEDS: DIAZEPAM 10 MG TABLET GT SCH ×2 (09:32→21:16)
[2019-04-07] MEDS: PHENOBARBITAL 30 MG/7.5 ML LIQUID UDC GT SCH ×2 (09:32→21:16)
[2019-04-07] MEDS: VIMPAT 200 MG GT SCH ×2 (09:33→21:15)
[2019-04-07] MEDS: ASCORBIC ACID 500 MG TABLET GT SCH ×2 (09:34→21:16)
[2019-04-07] MEDS: VITAMINS A AND D OINT TP SCH ×2 (09:34→21:17)
[2019-04-07] MEDS: LISINOPRIL 10 MG TABLET GT SCH (09:34)
[2019-04-07] MEDS: METOPROLOL TARTRATE 50 MG TABLET GT SCH ×2 (09:35→21:15)
[2019-04-07] MEDS: AMLODIPINE 10 MG TABLET GT SCH (09:35)
[2019-04-07] MEDS: Z GUARD REMEDY PASTE 57 GM TUBE TOP SCH ×2 (09:36→21:16)
[2019-04-07 11:52] VITALS: BP 107/70
[2019-04-07 20:45] VITALS: BP 133/85
[2019-04-07] MEDS: MULTIVIT, IRON, MIN NO. 8, FA TABLET GT SCH (21:16)
[2019-04-08] MEDS: HYDROGEN PEROXIDE 3% 118 ML BOTTLE TP PRN (08:31)
[2019-04-08] MEDS: LEVETIRACETAM 500 MG/5 ML LIQUID UDC GT SCH ×2 (09:29→21:34)
[2019-04-08] MEDS: ASPIRIN 81 MG TAB.CHEW GT SCH (09:29)
[2019-04-08] MEDS: DIAZEPAM 10 MG TABLET GT SCH ×2 (09:30→21:36)
[2019-04-08] MEDS: VIMPAT 200 MG GT SCH ×2 (09:30→21:35)
[2019-04-08] MEDS: PHENOBARBITAL 30 MG/7.5 ML LIQUID UDC GT SCH ×2 (09:30→21:35)
[2019-04-08] MEDS: HYDROGEN PEROXIDE 3% 118 ML BOTTLE TP SCH ×2 (09:32→20:39)
[2019-04-08] MEDS: AMLODIPINE 10 MG TABLET GT SCH (09:32)
[2019-04-08] MEDS: METOPROLOL TARTRATE 50 MG TABLET GT SCH ×2 (09:32→21:35)
[2019-04-08] MEDS: ASCORBIC ACID 500 MG TABLET GT SCH ×2 (09:33→21:36)
[2019-04-08] MEDS: LISINOPRIL 10 MG TABLET GT SCH (09:33)
[2019-04-08] MEDS: VITAMINS A AND D OINT TP SCH ×2 (09:34→21:36)
[2019-04-08] MEDS: Z GUARD REMEDY PASTE 57 GM TUBE TOP SCH ×2 (09:34→21:36)
[2019-04-08] MEDS: VITAL AF 1.2 1,000 ML LIQUID GT PRN (11:00)
[2019-04-08 11:14] VITALS: BP 105/64
[2019-04-08] MEDS: MULTIVIT, IRON, MIN NO. 8, FA TABLET GT SCH (21:35)
[2019-04-08 21:56] VITALS: BP 125/72
[2019-04-09] MEDS: AMLODIPINE 10 MG TABLET GT SCH (09:00)
[2019-04-09] MEDS: METOPROLOL TARTRATE 50 MG TABLET GT SCH ×2 (09:00→21:27)
[2019-04-09] MEDS: LISINOPRIL 10 MG TABLET GT SCH (09:00)
[2019-04-09] MEDS: LEVETIRACETAM 500 MG/5 ML LIQUID UDC GT SCH ×2 (09:03→21:27)
[2019-04-09] MEDS: ASPIRIN 81 MG TAB.CHEW GT SCH (09:03)
[2019-04-09] MEDS: ASCORBIC ACID 500 MG TABLET GT SCH ×2 (09:06→21:27)
[2019-04-09] MEDS: PHENOBARBITAL 30 MG/7.5 ML LIQUID UDC GT SCH ×2 (09:11→21:27)
[2019-04-09] MEDS: VIMPAT 200 MG GT SCH ×2 (09:11→21:27)
[2019-04-09] MEDS: HYDROGEN PEROXIDE 3% 118 ML BOTTLE TP SCH ×2 (09:11→21:07)
[2019-04-09] MEDS: DIAZEPAM 10 MG TABLET GT SCH ×2 (09:12→21:27)
[2019-04-09] MEDS: Z GUARD REMEDY PASTE 57 GM TUBE TOP SCH ×2 (09:12→21:27)
[2019-04-09] MEDS: VITAMINS A AND D OINT TP SCH ×2 (09:41→21:27)
[2019-04-09 12:09] VITALS: BP 100/61
[2019-04-09] MEDS: VITAL AF 1.2 1,000 ML LIQUID GT PRN (19:02)
[2019-04-09 20:23] VITALS: BP 121/77
[2019-04-09] MEDS: MULTIVIT, IRON, MIN NO. 8, FA TABLET GT SCH (21:27)
[2019-04-10] MEDS: HYDROGEN PEROXIDE 3% 118 ML BOTTLE TP SCH ×2 (07:53→21:17)
[2019-04-10] MEDS: ASPIRIN 81 MG TAB.CHEW GT SCH (08:24)
[2019-04-10] MEDS: LEVETIRACETAM 500 MG/5 ML LIQUID UDC GT SCH ×2 (08:25→20:19)
[2019-04-10] MEDS: PHENOBARBITAL 30 MG/7.5 ML LIQUID UDC GT SCH ×2 (08:32→20:20)
[2019-04-10] MEDS: DIAZEPAM 10 MG TABLET GT SCH ×2 (08:32→20:20)
[2019-04-10] MEDS: VIMPAT 200 MG GT SCH ×2 (08:32→20:20)
[2019-04-10] MEDS: ASCORBIC ACID 500 MG TABLET GT SCH ×2 (08:32→20:21)
[2019-04-10] MEDS: AMLODIPINE 10 MG TABLET GT SCH (08:32)
[2019-04-10] MEDS: METOPROLOL TARTRATE 50 MG TABLET GT SCH ×2 (08:32→20:20)
[2019-04-10] MEDS: LISINOPRIL 10 MG TABLET GT SCH (08:32)
[2019-04-10] MEDS: Z GUARD REMEDY PASTE 57 GM TUBE TOP SCH ×2 (08:33→20:21)
[2019-04-10] MEDS: VITAMINS A AND D OINT TP SCH ×2 (08:33→20:21)
[2019-04-10 11:13] VITALS: BP 100/61
[2019-04-10] MEDS: VITAL AF 1.2 1,000 ML LIQUID GT PRN (16:15)
[2019-04-10] MEDS: MULTIVIT, IRON, MIN NO. 8, FA TABLET GT SCH (20:20)
[2019-04-10 20:35] VITALS: BP 133/89
[2019-04-11] MEDS: VITAL AF 1.2 1,000 ML LIQUID GT PRN (07:18)
[2019-04-11] MEDS: HYDROGEN PEROXIDE 3% 118 ML BOTTLE TP SCH ×2 (08:00→21:25)
[2019-04-11] MEDS: LEVETIRACETAM 500 MG/5 ML LIQUID UDC GT SCH ×2 (08:05→21:00)
[2019-04-11] MEDS: AMLODIPINE 10 MG TABLET GT SCH (08:05)
[2019-04-11] MEDS: ASPIRIN 81 MG TAB.CHEW GT SCH (08:05)
[2019-04-11] MEDS: METOPROLOL TARTRATE 50 MG TABLET GT SCH ×2 (08:05→21:00)
[2019-04-11] MEDS: VIMPAT 200 MG GT SCH ×2 (08:05→21:00)
[2019-04-11] MEDS: Z GUARD REMEDY PASTE 57 GM TUBE TOP SCH ×2 (08:06→21:00)
[2019-04-11] MEDS: LISINOPRIL 10 MG TABLET GT SCH (08:06)
[2019-04-11] MEDS: DIAZEPAM 10 MG TABLET GT SCH ×2 (08:06→21:00)
[2019-04-11] MEDS: ASCORBIC ACID 500 MG TABLET GT SCH ×2 (08:06→21:00)
[2019-04-11] MEDS: VITAMINS A AND D OINT TP SCH ×2 (08:06→21:00)
[2019-04-11] MEDS: PHENOBARBITAL 30 MG/7.5 ML LIQUID UDC GT SCH ×2 (08:06→21:00)
[2019-04-11 08:08] VITALS: BP 102/64
[2019-04-11 20:33] VITALS: BP 158/94
[2019-04-11] MEDS: MULTIVIT, IRON, MIN NO. 8, FA TABLET GT SCH (21:00)
[2019-04-11 22:38] VITALS: BP 140/85
[2019-04-12] MEDS: VITAL AF 1.2 1,000 ML LIQUID GT PRN ×2 (01:34→16:39)
[2019-04-12] MEDS: HYDROGEN PEROXIDE 3% 118 ML BOTTLE TP SCH ×2 (08:04→21:23)
[2019-04-12] MEDS: LEVETIRACETAM 500 MG/5 ML LIQUID UDC GT SCH ×2 (08:06→21:00)
[2019-04-12] MEDS: METOPROLOL TARTRATE 50 MG TABLET GT SCH ×2 (08:06→21:00)
[2019-04-12] MEDS: ASPIRIN 81 MG TAB.CHEW GT SCH (08:06)
[2019-04-12] MEDS: VIMPAT 200 MG GT SCH ×2 (08:06→21:00)
[2019-04-12] MEDS: DIAZEPAM 10 MG TABLET GT SCH ×2 (08:07→21:00)
[2019-04-12] MEDS: PHENOBARBITAL 30 MG/7.5 ML LIQUID UDC GT SCH ×2 (08:07→21:00)
[2019-04-12] MEDS: LISINOPRIL 10 MG TABLET GT SCH (08:07)
[2019-04-12] MEDS: Z GUARD REMEDY PASTE 57 GM TUBE TOP SCH ×2 (08:07→21:00)
[2019-04-12] MEDS: AMLODIPINE 10 MG TABLET GT SCH (08:07)
[2019-04-12] MEDS: ASCORBIC ACID 500 MG TABLET GT SCH ×2 (08:07→21:00)
[2019-04-12] MEDS: VITAMINS A AND D OINT TP SCH ×2 (08:07→21:00)
[2019-04-12 08:08] VITALS: BP 115/73
[2019-04-12] MEDS: MULTIVIT, IRON, MIN NO. 8, FA TABLET GT SCH (21:00)
[2019-04-12 21:17] VITALS: BP 117/74
[2019-04-13] MEDS: AMLODIPINE 10 MG TABLET GT SCH (08:22)
[2019-04-13] MEDS: LEVETIRACETAM 500 MG/5 ML LIQUID UDC GT SCH ×2 (08:22→21:05)
[2019-04-13] MEDS: VIMPAT 200 MG GT SCH ×2 (08:22→21:08)
[2019-04-13] MEDS: METOPROLOL TARTRATE 50 MG TABLET GT SCH ×2 (08:22→21:08)
[2019-04-13] MEDS: PHENOBARBITAL 30 MG/7.5 ML LIQUID UDC GT SCH ×2 (08:22→21:08)
[2019-04-13] MEDS: ASPIRIN 81 MG TAB.CHEW GT SCH (08:22)
[2019-04-13] MEDS: ASCORBIC ACID 500 MG TABLET GT SCH ×2 (08:23→21:08)
[2019-04-13] MEDS: VITAMINS A AND D OINT TP SCH ×2 (08:23→21:08)
[2019-04-13] MEDS: LISINOPRIL 10 MG TABLET GT SCH (08:23)
[2019-04-13] MEDS: DIAZEPAM 10 MG TABLET GT SCH ×2 (08:23→21:10)
[2019-04-13] MEDS: Z GUARD REMEDY PASTE 57 GM TUBE TOP SCH ×2 (08:23→21:08)
[2019-04-13] MEDS: HYDROGEN PEROXIDE 3% 118 ML BOTTLE TP SCH ×2 (09:00→20:45)
[2019-04-13] MEDS: VITAL AF 1.2 1,000 ML LIQUID GT PRN (11:45)
[2019-04-13 14:49] VITALS: BP 125/83
[2019-04-13 20:44] VITALS: BP 126/73
[2019-04-13] MEDS: MULTIVIT, IRON, MIN NO. 8, FA TABLET GT SCH (21:08)
[2019-04-14] MEDS: VITAL AF 1.2 1,000 ML LIQUID GT PRN (06:46)
[2019-04-14] MEDS: ASPIRIN 81 MG TAB.CHEW GT SCH (09:21)
[2019-04-14] MEDS: LEVETIRACETAM 500 MG/5 ML LIQUID UDC GT SCH ×2 (09:21→21:14)
[2019-04-14] MEDS: METOPROLOL TARTRATE 50 MG TABLET GT SCH ×2 (09:22→21:14)
[2019-04-14] MEDS: PHENOBARBITAL 30 MG/7.5 ML LIQUID UDC GT SCH ×2 (09:23→21:14)
[2019-04-14] MEDS: AMLODIPINE 10 MG TABLET GT SCH (09:23)
[2019-04-14] MEDS: LACOSAMIDE 100 MG/10 ML UDC GT SCH ×2 (09:23→21:15)
[2019-04-14] MEDS: DIAZEPAM 10 MG TABLET GT SCH ×2 (09:23→21:15)
[2019-04-14] MEDS: LISINOPRIL 10 MG TABLET GT SCH (09:23)
[2019-04-14] MEDS: ASCORBIC ACID 500 MG TABLET GT SCH ×2 (09:24→21:15)
[2019-04-14] MEDS: Z GUARD REMEDY PASTE 57 GM TUBE TOP SCH ×2 (09:24→21:15)
[2019-04-14] MEDS: VITAMINS A AND D OINT TP SCH ×2 (09:24→21:15)
[2019-04-14] MEDS: HYDROGEN PEROXIDE 3% 118 ML BOTTLE TP SCH ×2 (09:46→21:26)
[2019-04-14 18:11] VITALS: BP 133/82
[2019-04-14 20:23] VITALS: BP 125/72
[2019-04-14] MEDS: MULTIVIT, IRON, MIN NO. 8, FA TABLET GT SCH (21:14)
[2019-04-15] MEDS: VITAL AF 1.2 1,000 ML LIQUID GT PRN (01:52)
[2019-04-15] MEDS: HYDROGEN PEROXIDE 3% 118 ML BOTTLE TP PRN (08:04)
[2019-04-15] MEDS: HYDROGEN PEROXIDE 3% 118 ML BOTTLE TP SCH ×2 (09:00→20:36)
[2019-04-15] MEDS: ASCORBIC ACID 500 MG TABLET GT SCH ×2 (09:00→21:00)
[2019-04-15] MEDS: Z GUARD REMEDY PASTE 57 GM TUBE TOP SCH ×2 (09:00→21:00)
[2019-04-15] MEDS: LACOSAMIDE 100 MG/10 ML UDC GT SCH ×2 (09:00→21:00)
[2019-04-15] MEDS: VITAMINS A AND D OINT TP SCH ×2 (09:00→21:00)
[2019-04-15] MEDS: DIAZEPAM 10 MG TABLET GT SCH ×2 (09:00→21:00)
[2019-04-15] MEDS: LEVETIRACETAM 500 MG/5 ML LIQUID UDC GT SCH ×2 (09:58→21:00)
[2019-04-15] MEDS: ASPIRIN 81 MG TAB.CHEW GT SCH (09:58)
[2019-04-15] MEDS: PHENOBARBITAL 30 MG/7.5 ML LIQUID UDC GT SCH ×2 (09:59→21:00)
[2019-04-15] MEDS: AMLODIPINE 10 MG TABLET GT SCH (09:59)
[2019-04-15] MEDS: METOPROLOL TARTRATE 50 MG TABLET GT SCH ×2 (09:59→21:00)
[2019-04-15] MEDS: LISINOPRIL 10 MG TABLET GT SCH (10:00)
[2019-04-15 12:37] VITALS: BP 113/69
[2019-04-15 20:21] VITALS: BP 124/85
[2019-04-15] MEDS: MULTIVIT, IRON, MIN NO. 8, FA TABLET GT SCH (21:00)
[2019-04-16] MEDS: COD LIVER OIL/ZINC OXIDE OINT 113 GM TUBE TOP SCH ×3 (03:00→20:27)
[2019-04-16] MEDS: ASPIRIN 81 MG TAB.CHEW GT SCH (08:46)
[2019-04-16] MEDS: LEVETIRACETAM 500 MG/5 ML LIQUID UDC GT SCH ×2 (08:47→20:26)
[2019-04-16] MEDS: METOPROLOL TARTRATE 50 MG TABLET GT SCH ×2 (08:48→20:26)
[2019-04-16] MEDS: AMLODIPINE 10 MG TABLET GT SCH (08:48)
[2019-04-16] MEDS: PHENOBARBITAL 30 MG/7.5 ML LIQUID UDC GT SCH ×2 (08:49→20:27)
[2019-04-16] MEDS: LACOSAMIDE 100 MG/10 ML UDC GT SCH ×2 (08:55→20:27)
[2019-04-16] MEDS: DIAZEPAM 10 MG TABLET GT SCH ×2 (08:55→20:27)
[2019-04-16] MEDS: LISINOPRIL 10 MG TABLET GT SCH (08:55)
[2019-04-16] MEDS: ASCORBIC ACID 500 MG TABLET GT SCH ×2 (08:56→20:27)
[2019-04-16] MEDS: Z GUARD REMEDY PASTE 57 GM TUBE TOP SCH ×2 (08:56→20:27)
[2019-04-16] MEDS: VITAMINS A AND D OINT TP SCH ×2 (09:50→20:27)
[2019-04-16 10:43] VITALS: BP 112/79
[2019-04-16] MEDS: HYDROGEN PEROXIDE 3% 118 ML BOTTLE TP SCH ×2 (11:31→20:27)
[2019-04-16] MEDS: MULTIVIT, IRON, MIN NO. 8, FA TABLET GT SCH (20:27)
[2019-04-16 22:09] VITALS: BP 96/87
[2019-04-17] MEDS: VITAL AF 1.2 1,000 ML LIQUID GT PRN ×2 (06:11→16:54)
[2019-04-17 08:05] VITALS: BP 103/71
[2019-04-17] MEDS: LEVETIRACETAM 500 MG/5 ML LIQUID UDC GT SCH ×2 (08:27→21:14)
[2019-04-17] MEDS: ASPIRIN 81 MG TAB.CHEW GT SCH (08:27)
[2019-04-17] MEDS: METOPROLOL TARTRATE 50 MG TABLET GT SCH ×2 (08:28→21:14)
[2019-04-17] MEDS: AMLODIPINE 10 MG TABLET GT SCH (08:28)
[2019-04-17] MEDS: LACOSAMIDE 100 MG/10 ML UDC GT SCH ×2 (08:29→21:19)
[2019-04-17] MEDS: ASCORBIC ACID 500 MG TABLET GT SCH ×2 (08:29→21:19)
[2019-04-17] MEDS: COD LIVER OIL/ZINC OXIDE OINT 113 GM TUBE TOP SCH ×2 (08:29→21:19)
[2019-04-17] MEDS: PHENOBARBITAL 30 MG/7.5 ML LIQUID UDC GT SCH ×2 (08:29→21:14)
[2019-04-17] MEDS: LISINOPRIL 10 MG TABLET GT SCH (08:29)
[2019-04-17] MEDS: DIAZEPAM 10 MG TABLET GT SCH ×2 (08:29→21:19)
[2019-04-17] MEDS: Z GUARD REMEDY PASTE 57 GM TUBE TOP SCH ×2 (08:29→21:19)
[2019-04-17] MEDS: VITAMINS A AND D OINT TP SCH ×2 (08:30→21:19)
[2019-04-17] MEDS: HYDROGEN PEROXIDE 3% 118 ML BOTTLE TP SCH ×2 (09:27→20:48)
[2019-04-17 20:45] VITALS: BP 125/85
[2019-04-17] MEDS: MULTIVIT, IRON, MIN NO. 8, FA TABLET GT SCH (21:19)
[2019-04-18 08:06] VITALS: BP 96/65
[2019-04-18] MEDS: METOPROLOL TARTRATE 50 MG TABLET GT SCH ×2 (08:18→20:35)
[2019-04-18] MEDS: LEVETIRACETAM 500 MG/5 ML LIQUID UDC GT SCH ×2 (08:18→20:35)
[2019-04-18] MEDS: ASPIRIN 81 MG TAB.CHEW GT SCH (08:18)
[2019-04-18] MEDS: AMLODIPINE 10 MG TABLET GT SCH (08:20)
[2019-04-18] MEDS: LISINOPRIL 10 MG TABLET GT SCH (08:20)
[2019-04-18] MEDS: PHENOBARBITAL 30 MG/7.5 ML LIQUID UDC GT SCH ×2 (08:20→20:35)
[2019-04-18] MEDS: DIAZEPAM 10 MG TABLET GT SCH ×2 (08:21→20:35)
[2019-04-18] MEDS: Z GUARD REMEDY PASTE 57 GM TUBE TOP SCH ×2 (08:21→20:35)
[2019-04-18] MEDS: ASCORBIC ACID 500 MG TABLET GT SCH ×2 (08:21→20:35)
[2019-04-18] MEDS: LACOSAMIDE 100 MG/10 ML UDC GT SCH ×2 (08:21→20:35)
[2019-04-18] MEDS: COD LIVER OIL/ZINC OXIDE OINT 113 GM TUBE TP SCH ×2 (08:21→20:35)
[2019-04-18] MEDS: COD LIVER OIL/ZINC OXIDE OINT 113 GM TUBE TOP SCH ×2 (08:21→20:35)
[2019-04-18] MEDS: VITAMINS A AND D OINT TP SCH ×2 (08:22→20:35)
[2019-04-18] MEDS: HYDROGEN PEROXIDE 3% 118 ML BOTTLE TP SCH ×2 (09:00→20:55)
[2019-04-18] MEDS: VITAL AF 1.2 1,000 ML LIQUID GT PRN ×2 (10:38→23:37)
[2019-04-18 20:24] VITALS: BP 127/82
[2019-04-18] MEDS: MULTIVIT, IRON, MIN NO. 8, FA TABLET GT SCH (20:35)
[2019-04-19 08:06] VITALS: BP 113/72
[2019-04-19] MEDS: METOPROLOL TARTRATE 50 MG TABLET GT SCH ×2 (08:44→20:30)
[2019-04-19] MEDS: ASPIRIN 81 MG TAB.CHEW GT SCH (08:44)
[2019-04-19] MEDS: LEVETIRACETAM 500 MG/5 ML LIQUID UDC GT SCH ×2 (08:44→20:29)
[2019-04-19] MEDS: PHENOBARBITAL 30 MG/7.5 ML LIQUID UDC GT SCH ×2 (08:45→20:30)
[2019-04-19] MEDS: COD LIVER OIL/ZINC OXIDE OINT 113 GM TUBE TOP SCH ×2 (08:45→20:30)
[2019-04-19] MEDS: COD LIVER OIL/ZINC OXIDE OINT 113 GM TUBE TP SCH ×2 (08:45→20:30)
[2019-04-19] MEDS: LACOSAMIDE 100 MG/10 ML UDC GT SCH ×2 (08:45→20:30)
[2019-04-19] MEDS: DIAZEPAM 10 MG TABLET GT SCH ×2 (08:45→20:30)
[2019-04-19] MEDS: ASCORBIC ACID 500 MG TABLET GT SCH ×2 (08:45→20:30)
[2019-04-19] MEDS: LISINOPRIL 10 MG TABLET GT SCH (08:45)
[2019-04-19] MEDS: AMLODIPINE 10 MG TABLET GT SCH (08:45)
[2019-04-19] MEDS: Z GUARD REMEDY PASTE 57 GM TUBE TOP SCH ×2 (08:45→20:30)
[2019-04-19] MEDS: VITAMINS A AND D OINT TP SCH ×2 (08:45→20:30)
[2019-04-19] MEDS: HYDROGEN PEROXIDE 3% 118 ML BOTTLE TP SCH ×2 (09:00→21:22)
[2019-04-19] MEDS: VITAL AF 1.2 1,000 ML LIQUID GT PRN (17:46)
[2019-04-19 20:00] VITALS: BP 127/47
[2019-04-19] MEDS: MULTIVIT, IRON, MIN NO. 8, FA TABLET GT SCH (20:30)
[2019-04-20 08:00] VITALS: BP 121/70
[2019-04-20] MEDS: ASPIRIN 81 MG TAB.CHEW GT SCH (08:02)
[2019-04-20] MEDS: PHENOBARBITAL 30 MG/7.5 ML LIQUID UDC GT SCH ×2 (08:03→20:26)
[2019-04-20] MEDS: LEVETIRACETAM 500 MG/5 ML LIQUID UDC GT SCH ×2 (08:03→20:26)
[2019-04-20] MEDS: LACOSAMIDE 100 MG/10 ML UDC GT SCH ×2 (08:10→20:27)
[2019-04-20] MEDS: VITAMINS A AND D OINT TP SCH ×2 (08:10→20:27)
[2019-04-20] MEDS: COD LIVER OIL/ZINC OXIDE OINT 113 GM TUBE TP SCH ×2 (08:10→20:27)
[2019-04-20] MEDS: COD LIVER OIL/ZINC OXIDE OINT 113 GM TUBE TOP SCH ×2 (08:10→20:27)
[2019-04-20] MEDS: Z GUARD REMEDY PASTE 57 GM TUBE TOP SCH ×2 (08:10→20:27)
[2019-04-20] MEDS: ASCORBIC ACID 500 MG TABLET GT SCH ×2 (08:10→20:27)
[2019-04-20] MEDS: HYDROGEN PEROXIDE 3% 118 ML BOTTLE TP SCH ×2 (09:00→21:34)
[2019-04-20] MEDS: DIAZEPAM 10 MG TABLET GT SCH ×2 (09:00→20:27)
[2019-04-20] MEDS: LISINOPRIL 10 MG TABLET GT SCH (09:00)
[2019-04-20] MEDS: METOPROLOL TARTRATE 50 MG TABLET GT SCH ×2 (09:00→20:26)
[2019-04-20] MEDS: AMLODIPINE 10 MG TABLET GT SCH (09:00)
[2019-04-20] MEDS: VITAL AF 1.2 1,000 ML LIQUID GT PRN (11:55)
[2019-04-20 20:18] VITALS: BP 140/87
[2019-04-20] MEDS: MULTIVIT, IRON, MIN NO. 8, FA TABLET GT SCH (20:27)
[2019-04-21] MEDS: VITAL AF 1.2 1,000 ML LIQUID GT PRN (02:01)
[2019-04-21 08:00] VITALS: BP 132/73
[2019-04-21] MEDS: HYDROGEN PEROXIDE 3% 118 ML BOTTLE TP SCH ×2 (09:00→21:19)
[2019-04-21] MEDS: ASCORBIC ACID 500 MG TABLET GT SCH ×2 (09:00→21:33)
[2019-04-21] MEDS: LISINOPRIL 10 MG TABLET GT SCH (09:00)
[2019-04-21] MEDS: VITAMINS A AND D OINT TP SCH ×2 (09:00→21:33)
[2019-04-21] MEDS: COD LIVER OIL/ZINC OXIDE OINT 113 GM TUBE TOP SCH ×2 (09:00→21:33)
[2019-04-21] MEDS: PHENOBARBITAL 30 MG/7.5 ML LIQUID UDC GT SCH ×2 (09:00→21:33)
[2019-04-21] MEDS: METOPROLOL TARTRATE 50 MG TABLET GT SCH ×2 (09:00→21:32)
[2019-04-21] MEDS: COD LIVER OIL/ZINC OXIDE OINT 113 GM TUBE TP SCH ×2 (09:00→21:33)
[2019-04-21] MEDS: LEVETIRACETAM 500 MG/5 ML LIQUID UDC GT SCH ×2 (09:00→21:32)
[2019-04-21] MEDS: AMLODIPINE 10 MG TABLET GT SCH (09:00)
[2019-04-21] MEDS: Z GUARD REMEDY PASTE 57 GM TUBE TOP SCH ×2 (09:00→21:33)
[2019-04-21] MEDS: DIAZEPAM 10 MG TABLET GT SCH ×2 (09:00→21:33)
[2019-04-21] MEDS: ASPIRIN 81 MG TAB.CHEW GT SCH (09:00)
[2019-04-21] MEDS: LACOSAMIDE 100 MG/10 ML UDC GT SCH ×2 (09:00→21:33)
[2019-04-21 20:00] VITALS: BP 134/92
[2019-04-21] MEDS: MULTIVIT, IRON, MIN NO. 8, FA TABLET GT SCH (21:33)
[2019-04-22] MEDS: HYDROGEN PEROXIDE 3% 118 ML BOTTLE TP SCH ×2 (07:46→20:56)
[2019-04-22 08:00] VITALS: BP 114/76
[2019-04-22] MEDS: LEVETIRACETAM 500 MG/5 ML LIQUID UDC GT SCH ×2 (08:59→21:32)
[2019-04-22] MEDS: AMLODIPINE 10 MG TABLET GT SCH (08:59)
[2019-04-22] MEDS: ASPIRIN 81 MG TAB.CHEW GT SCH (08:59)
[2019-04-22] MEDS: METOPROLOL TARTRATE 50 MG TABLET GT SCH ×2 (08:59→21:33)
[2019-04-22] MEDS: VITAMINS A AND D OINT TP SCH ×2 (09:00→21:34)
[2019-04-22] MEDS: DIAZEPAM 10 MG TABLET GT SCH ×2 (09:00→21:34)
[2019-04-22] MEDS: PHENOBARBITAL 30 MG/7.5 ML LIQUID UDC GT SCH ×2 (09:00→21:34)
[2019-04-22] MEDS: COD LIVER OIL/ZINC OXIDE OINT 113 GM TUBE TP SCH ×2 (09:00→21:34)
[2019-04-22] MEDS: Z GUARD REMEDY PASTE 57 GM TUBE TOP SCH ×2 (09:00→21:34)
[2019-04-22] MEDS: LISINOPRIL 10 MG TABLET GT SCH (09:00)
[2019-04-22] MEDS: LACOSAMIDE 100 MG/10 ML UDC GT SCH ×2 (09:00→21:34)
[2019-04-22] MEDS: ASCORBIC ACID 500 MG TABLET GT SCH ×2 (09:00→21:34)
[2019-04-22] MEDS: COD LIVER OIL/ZINC OXIDE OINT 113 GM TUBE TOP SCH ×2 (09:00→21:34)
[2019-04-22 20:00] VITALS: BP 122/72
[2019-04-22] MEDS: MULTIVIT, IRON, MIN NO. 8, FA TABLET GT SCH (21:34)
[2019-04-23] MEDS: VITAL AF 1.2 1,000 ML LIQUID GT PRN ×2 (03:30→22:00)
[2019-04-23] MEDS: METOPROLOL TARTRATE 50 MG TABLET GT SCH ×2 (09:00→21:35)
[2019-04-23] MEDS: LISINOPRIL 10 MG TABLET GT SCH (09:00)
[2019-04-23] MEDS: AMLODIPINE 10 MG TABLET GT SCH (09:00)
[2019-04-23] MEDS: LEVETIRACETAM 500 MG/5 ML LIQUID UDC GT SCH ×2 (09:02→21:34)
[2019-04-23] MEDS: ASPIRIN 81 MG TAB.CHEW GT SCH (09:02)
[2019-04-23] MEDS: Z GUARD REMEDY PASTE 57 GM TUBE TOP SCH ×2 (09:04→21:35)
[2019-04-23] MEDS: COD LIVER OIL/ZINC OXIDE OINT 113 GM TUBE TOP SCH ×2 (09:04→21:35)
[2019-04-23] MEDS: DIAZEPAM 10 MG TABLET GT SCH ×2 (09:04→21:35)
[2019-04-23] MEDS: ASCORBIC ACID 500 MG TABLET GT SCH ×2 (09:04→21:35)
[2019-04-23] MEDS: VITAMINS A AND D OINT TP SCH ×2 (09:04→21:36)
[2019-04-23] MEDS: LACOSAMIDE 100 MG/10 ML UDC GT SCH ×2 (09:04→21:35)
[2019-04-23] MEDS: COD LIVER OIL/ZINC OXIDE OINT 113 GM TUBE TP SCH ×2 (09:04→21:36)
[2019-04-23] MEDS: PHENOBARBITAL 30 MG/7.5 ML LIQUID UDC GT SCH ×2 (09:04→21:35)
[2019-04-23] MEDS: HYDROGEN PEROXIDE 3% 118 ML BOTTLE TP SCH ×2 (10:50→21:00)
[2019-04-23 11:09] VITALS: BP 109/67
[2019-04-23 20:27] VITALS: BP 148/89
[2019-04-23] MEDS: MULTIVIT, IRON, MIN NO. 8, FA TABLET GT SCH (21:35)
[2019-04-24] MEDS: LEVETIRACETAM 500 MG/5 ML LIQUID UDC GT SCH ×2 (08:52→20:44)
[2019-04-24] MEDS: ASPIRIN 81 MG TAB.CHEW GT SCH (08:52)
[2019-04-24] MEDS: AMLODIPINE 10 MG TABLET GT SCH (08:54)
[2019-04-24] MEDS: METOPROLOL TARTRATE 50 MG TABLET GT SCH ×2 (08:54→20:45)
[2019-04-24] MEDS: ASCORBIC ACID 500 MG TABLET GT SCH ×2 (08:54→20:45)
[2019-04-24] MEDS: COD LIVER OIL/ZINC OXIDE OINT 113 GM TUBE TOP SCH ×2 (08:54→20:46)
[2019-04-24] MEDS: Z GUARD REMEDY PASTE 57 GM TUBE TOP SCH ×2 (08:54→20:46)
[2019-04-24] MEDS: DIAZEPAM 10 MG TABLET GT SCH ×2 (08:54→20:45)
[2019-04-24] MEDS: PHENOBARBITAL 30 MG/7.5 ML LIQUID UDC GT SCH ×2 (08:54→20:45)
[2019-04-24] MEDS: COD LIVER OIL/ZINC OXIDE OINT 113 GM TUBE TP SCH ×2 (08:54→20:46)
[2019-04-24] MEDS: LACOSAMIDE 100 MG/10 ML UDC GT SCH ×2 (08:54→20:45)
[2019-04-24] MEDS: LISINOPRIL 10 MG TABLET GT SCH (08:54)
[2019-04-24] MEDS: VITAMINS A AND D OINT TP SCH ×2 (08:55→20:46)
[2019-04-24] MEDS: HYDROGEN PEROXIDE 3% 118 ML BOTTLE TP SCH ×2 (09:55→21:44)
[2019-04-24 11:21] VITALS: BP 129/85
[2019-04-24 20:42] VITALS: BP 140/105
[2019-04-24] MEDS: MULTIVIT, IRON, MIN NO. 8, FA TABLET GT SCH (20:45)
[2019-04-25 08:09] VITALS: BP 113/73
[2019-04-25] MEDS: METOPROLOL TARTRATE 50 MG TABLET GT SCH ×2 (09:00→20:16)
[2019-04-25] MEDS: LISINOPRIL 10 MG TABLET GT SCH (09:00)
[2019-04-25] MEDS: AMLODIPINE 10 MG TABLET GT SCH (09:00)
[2019-04-25] MEDS: VITAMINS A AND D OINT TP SCH ×2 (09:00→20:16)
[2019-04-25] MEDS: ASPIRIN 81 MG TAB.CHEW GT SCH (09:36)
[2019-04-25] MEDS: LEVETIRACETAM 500 MG/5 ML LIQUID UDC GT SCH ×2 (09:36→20:16)
[2019-04-25] MEDS: PHENOBARBITAL 30 MG/7.5 ML LIQUID UDC GT SCH ×2 (09:38→20:16)
[2019-04-25] MEDS: COD LIVER OIL/ZINC OXIDE OINT 113 GM TUBE TP SCH ×2 (09:39→20:16)
[2019-04-25] MEDS: COD LIVER OIL/ZINC OXIDE OINT 113 GM TUBE TOP SCH ×2 (09:39→20:16)
[2019-04-25] MEDS: Z GUARD REMEDY PASTE 57 GM TUBE TOP SCH ×2 (09:39→20:16)
[2019-04-25] MEDS: ASCORBIC ACID 500 MG TABLET GT SCH ×2 (09:39→20:16)
[2019-04-25] MEDS: DIAZEPAM 10 MG TABLET GT SCH ×2 (09:39→20:16)
[2019-04-25] MEDS: LACOSAMIDE 100 MG/10 ML UDC GT SCH ×2 (09:39→20:16)
[2019-04-25] MEDS: HYDROGEN PEROXIDE 3% 118 ML BOTTLE TP SCH ×2 (11:00→21:12)
[2019-04-25] MEDS: MULTIVIT, IRON, MIN NO. 8, FA TABLET GT SCH (20:16)
[2019-04-25 20:24] VITALS: BP 140/91
[2019-04-26] MEDS: HYDROGEN PEROXIDE 3% 118 ML BOTTLE TP SCH ×2 (07:56→21:11)
[2019-04-26 08:10] VITALS: BP 125/73
[2019-04-26] MEDS: LEVETIRACETAM 500 MG/5 ML LIQUID UDC GT SCH ×2 (08:33→21:23)
[2019-04-26] MEDS: ASPIRIN 81 MG TAB.CHEW GT SCH (08:33)
[2019-04-26] MEDS: AMLODIPINE 10 MG TABLET GT SCH (08:34)
[2019-04-26] MEDS: METOPROLOL TARTRATE 50 MG TABLET GT SCH ×2 (08:34→21:00)
[2019-04-26] MEDS: LISINOPRIL 10 MG TABLET GT SCH (08:34)
[2019-04-26] MEDS: PHENOBARBITAL 30 MG/7.5 ML LIQUID UDC GT SCH ×2 (08:34→21:25)
[2019-04-26] MEDS: Z GUARD REMEDY PASTE 57 GM TUBE TOP SCH ×2 (08:35→21:25)
[2019-04-26] MEDS: ASCORBIC ACID 500 MG TABLET GT SCH ×2 (08:35→21:25)
[2019-04-26] MEDS: COD LIVER OIL/ZINC OXIDE OINT 113 GM TUBE TP SCH ×2 (08:35→21:25)
[2019-04-26] MEDS: COD LIVER OIL/ZINC OXIDE OINT 113 GM TUBE TOP SCH ×2 (08:35→21:25)
[2019-04-26] MEDS: VITAMINS A AND D OINT TP SCH ×2 (08:35→21:25)
[2019-04-26] MEDS: DIAZEPAM 10 MG TABLET GT SCH ×2 (08:35→21:25)
[2019-04-26] MEDS: LACOSAMIDE 100 MG/10 ML UDC GT SCH ×2 (08:35→21:25)
[2019-04-26] MEDS: VITAL AF 1.2 1,000 ML LIQUID GT PRN (17:56)
[2019-04-26 21:20] VITALS: BP 110/69
[2019-04-26] MEDS: MULTIVIT, IRON, MIN NO. 8, FA TABLET GT SCH (21:26)
[2019-04-27 08:09] VITALS: BP 119/79
[2019-04-27] MEDS: LEVETIRACETAM 500 MG/5 ML LIQUID UDC GT SCH ×2 (08:29→21:49)
[2019-04-27] MEDS: ASPIRIN 81 MG TAB.CHEW GT SCH (08:29)
[2019-04-27] MEDS: METOPROLOL TARTRATE 50 MG TABLET GT SCH ×2 (08:31→21:51)
[2019-04-27] MEDS: AMLODIPINE 10 MG TABLET GT SCH (08:31)
[2019-04-27] MEDS: PHENOBARBITAL 30 MG/7.5 ML LIQUID UDC GT SCH ×2 (08:31→21:51)
[2019-04-27] MEDS: LISINOPRIL 10 MG TABLET GT SCH (08:31)
[2019-04-27] MEDS: Z GUARD REMEDY PASTE 57 GM TUBE TOP SCH ×2 (08:32→21:52)
[2019-04-27] MEDS: DIAZEPAM 10 MG TABLET GT SCH ×2 (08:32→21:51)
[2019-04-27] MEDS: COD LIVER OIL/ZINC OXIDE OINT 113 GM TUBE TP SCH ×2 (08:32→21:52)
[2019-04-27] MEDS: VITAMINS A AND D OINT TP SCH ×2 (08:32→21:52)
[2019-04-27] MEDS: LACOSAMIDE 100 MG/10 ML UDC GT SCH ×2 (08:32→21:51)
[2019-04-27] MEDS: COD LIVER OIL/ZINC OXIDE OINT 113 GM TUBE TOP SCH ×2 (08:32→21:52)
[2019-04-27] MEDS: ASCORBIC ACID 500 MG TABLET GT SCH ×2 (08:32→21:51)
[2019-04-27] MEDS: HYDROGEN PEROXIDE 3% 118 ML BOTTLE TP SCH ×2 (09:48→20:34)
[2019-04-27 20:01] VITALS: BP 129/82
[2019-04-27] MEDS: MULTIVIT, IRON, MIN NO. 8, FA TABLET GT SCH (21:51)
[2019-04-28] MEDS: VITAL AF 1.2 1,000 ML LIQUID GT PRN ×2 (03:24→22:00)
[2019-04-28 08:09] VITALS: BP 113/72
[2019-04-28] MEDS: HYDROGEN PEROXIDE 3% 118 ML BOTTLE TP SCH ×2 (08:36→21:00)
[2019-04-28] MEDS: METOPROLOL TARTRATE 50 MG TABLET GT SCH ×2 (09:00→20:42)
[2019-04-28] MEDS: ASCORBIC ACID 500 MG TABLET GT SCH ×2 (09:00→20:42)
[2019-04-28] MEDS: LISINOPRIL 10 MG TABLET GT SCH (09:00)
[2019-04-28] MEDS: PHENOBARBITAL 30 MG/7.5 ML LIQUID UDC GT SCH ×2 (09:00→20:42)
[2019-04-28] MEDS: AMLODIPINE 10 MG TABLET GT SCH (09:00)
[2019-04-28] MEDS: LACOSAMIDE 100 MG/10 ML UDC GT SCH ×2 (09:00→20:42)
[2019-04-28] MEDS: DIAZEPAM 10 MG TABLET GT SCH ×2 (09:00→20:42)
[2019-04-28] MEDS: ASPIRIN 81 MG TAB.CHEW GT SCH (09:03)
[2019-04-28] MEDS: LEVETIRACETAM 500 MG/5 ML LIQUID UDC GT SCH ×2 (09:03→20:42)
[2019-04-28] MEDS: VITAMINS A AND D OINT TP SCH ×2 (09:15→20:43)
[2019-04-28] MEDS: COD LIVER OIL/ZINC OXIDE OINT 113 GM TUBE TP SCH ×2 (09:15→20:43)
[2019-04-28] MEDS: COD LIVER OIL/ZINC OXIDE OINT 113 GM TUBE TOP SCH ×2 (09:15→20:43)
[2019-04-28] MEDS: Z GUARD REMEDY PASTE 57 GM TUBE TOP SCH ×2 (09:48→20:43)
[2019-04-28 20:31] VITALS: BP 136/74
[2019-04-28] MEDS: MULTIVIT, IRON, MIN NO. 8, FA TABLET GT SCH (20:42)
[2019-04-29 08:07] VITALS: BP 114/77
[2019-04-29] MEDS: LEVETIRACETAM 500 MG/5 ML LIQUID UDC GT SCH ×2 (08:29→21:39)
[2019-04-29] MEDS: METOPROLOL TARTRATE 50 MG TABLET GT SCH ×2 (08:29→21:39)
[2019-04-29] MEDS: AMLODIPINE 10 MG TABLET GT SCH (08:29)
[2019-04-29] MEDS: ASPIRIN 81 MG TAB.CHEW GT SCH (08:29)
[2019-04-29] MEDS: LISINOPRIL 10 MG TABLET GT SCH (08:30)
[2019-04-29] MEDS: ASCORBIC ACID 500 MG TABLET GT SCH ×2 (08:30→21:39)
[2019-04-29] MEDS: PHENOBARBITAL 30 MG/7.5 ML LIQUID UDC GT SCH ×2 (08:30→21:39)
[2019-04-29] MEDS: DIAZEPAM 10 MG TABLET GT SCH ×2 (08:30→21:39)
[2019-04-29] MEDS: LACOSAMIDE 100 MG/10 ML UDC GT SCH ×2 (08:30→21:39)
[2019-04-29] MEDS: VITAMINS A AND D OINT TP SCH ×2 (08:31→21:40)
[2019-04-29] MEDS: COD LIVER OIL/ZINC OXIDE OINT 113 GM TUBE TOP SCH ×2 (08:31→21:39)
[2019-04-29] MEDS: Z GUARD REMEDY PASTE 57 GM TUBE TOP SCH ×2 (08:31→21:39)
[2019-04-29] MEDS: COD LIVER OIL/ZINC OXIDE OINT 113 GM TUBE TP SCH ×2 (08:31→21:39)
[2019-04-29] MEDS: HYDROGEN PEROXIDE 3% 118 ML BOTTLE TP SCH ×2 (09:33→21:20)
[2019-04-29] MEDS: VITAL AF 1.2 1,000 ML LIQUID GT PRN (16:00)
[2019-04-29 21:21] VITALS: BP 144/91
[2019-04-29] MEDS: MULTIVIT, IRON, MIN NO. 8, FA TABLET GT SCH (21:39)
[2019-04-30 08:00] VITALS: BP 100/53
[2019-04-30] MEDS: HYDROGEN PEROXIDE 3% 118 ML BOTTLE TP SCH ×2 (09:00→21:00)
[2019-04-30] MEDS: AMLODIPINE 10 MG TABLET GT SCH (09:00)
[2019-04-30] MEDS: METOPROLOL TARTRATE 50 MG TABLET GT SCH ×2 (09:00→20:52)
[2019-04-30] MEDS: LISINOPRIL 10 MG TABLET GT SCH (09:00)
[2019-04-30] MEDS: LEVETIRACETAM 500 MG/5 ML LIQUID UDC GT SCH ×2 (09:48→20:52)
[2019-04-30] MEDS: ASCORBIC ACID 500 MG TABLET GT SCH ×2 (09:49→20:52)
[2019-04-30] MEDS: PHENOBARBITAL 30 MG/7.5 ML LIQUID UDC GT SCH ×2 (09:49→20:57)
[2019-04-30] MEDS: COD LIVER OIL/ZINC OXIDE OINT 113 GM TUBE TOP SCH ×2 (09:49→21:03)
[2019-04-30] MEDS: Z GUARD REMEDY PASTE 57 GM TUBE TOP SCH ×2 (09:49→20:52)
[2019-04-30] MEDS: LACOSAMIDE 100 MG/10 ML UDC GT SCH ×2 (09:49→21:03)
[2019-04-30] MEDS: DIAZEPAM 10 MG TABLET GT SCH ×2 (09:49→21:03)
[2019-04-30] MEDS: VITAMINS A AND D OINT TP SCH ×2 (09:50→20:52)
[2019-04-30] MEDS: COD LIVER OIL/ZINC OXIDE OINT 113 GM TUBE TP SCH ×2 (09:50→20:52)
[2019-04-30] MEDS: ASPIRIN 81 MG TAB.CHEW GT SCH (09:54)
[2019-04-30 20:31] VITALS: BP 127/78
[2019-04-30] MEDS: MULTIVIT, IRON, MIN NO. 8, FA TABLET GT SCH (20:52)
[2019-05-01] MEDS: VITAL AF 1.2 1,000 ML LIQUID GT PRN (02:00)
[2019-05-01] MEDS: ASPIRIN 81 MG TAB.CHEW GT SCH (08:20)
[2019-05-01] MEDS: LEVETIRACETAM 500 MG/5 ML LIQUID UDC GT SCH ×2 (08:21→20:49)
[2019-05-01] MEDS: AMLODIPINE 10 MG TABLET GT SCH (08:23)
[2019-05-01] MEDS: METOPROLOL TARTRATE 50 MG TABLET GT SCH ×2 (08:23→20:56)
[2019-05-01] MEDS: VITAMINS A AND D OINT TP SCH ×2 (08:24→20:56)
[2019-05-01] MEDS: COD LIVER OIL/ZINC OXIDE OINT 113 GM TUBE TOP SCH ×2 (08:24→20:56)
[2019-05-01] MEDS: ASCORBIC ACID 500 MG TABLET GT SCH ×2 (08:24→20:56)
[2019-05-01] MEDS: COD LIVER OIL/ZINC OXIDE OINT 113 GM TUBE TP SCH ×2 (08:24→20:56)
[2019-05-01] MEDS: DIAZEPAM 10 MG TABLET GT SCH ×2 (08:24→20:56)
[2019-05-01] MEDS: PHENOBARBITAL 30 MG/7.5 ML LIQUID UDC GT SCH ×2 (08:24→20:56)
[2019-05-01] MEDS: LISINOPRIL 10 MG TABLET GT SCH (08:24)
[2019-05-01] MEDS: LACOSAMIDE 100 MG/10 ML UDC GT SCH ×2 (08:24→20:56)
[2019-05-01] MEDS: Z GUARD REMEDY PASTE 57 GM TUBE TOP SCH ×2 (09:00→20:56)
[2019-05-01] MEDS: HYDROGEN PEROXIDE 3% 118 ML BOTTLE TP SCH ×2 (09:41→21:25)
[2019-05-01 10:49] VITALS: BP 115/76
[2019-05-01 20:43] VITALS: BP 138/66
[2019-05-01] MEDS: MULTIVIT, IRON, MIN NO. 8, FA TABLET GT SCH (20:56)
[2019-05-02] MEDS: VITAL AF 1.2 1,000 ML LIQUID GT PRN (00:58)
[2019-05-02 08:00] VITALS: BP 106/71
[2019-05-02 08:08] VITALS: BP 106/71
[2019-05-02] MEDS: Z GUARD REMEDY PASTE 57 GM TUBE TOP SCH ×2 (09:00→21:00)
[2019-05-02] MEDS: LISINOPRIL 10 MG TABLET GT SCH (09:00)
[2019-05-02] MEDS: METOPROLOL TARTRATE 50 MG TABLET GT SCH ×2 (09:00→21:00)
[2019-05-02] MEDS: COD LIVER OIL/ZINC OXIDE OINT 113 GM TUBE TOP SCH ×2 (09:00→21:00)
[2019-05-02] MEDS: HYDROGEN PEROXIDE 3% 118 ML BOTTLE TP SCH ×2 (09:00→21:00)
[2019-05-02] MEDS: AMLODIPINE 10 MG TABLET GT SCH (09:00)
[2019-05-02] MEDS: ASPIRIN 81 MG TAB.CHEW GT SCH (09:18)
[2019-05-02] MEDS: LEVETIRACETAM 500 MG/5 ML LIQUID UDC GT SCH ×2 (09:18→21:00)
[2019-05-02] MEDS: DIAZEPAM 10 MG TABLET GT SCH ×2 (09:19→21:00)
[2019-05-02] MEDS: LACOSAMIDE 100 MG/10 ML UDC GT SCH ×2 (09:19→21:00)
[2019-05-02] MEDS: PHENOBARBITAL 30 MG/7.5 ML LIQUID UDC GT SCH ×2 (09:19→21:00)
[2019-05-02] MEDS: ASCORBIC ACID 500 MG TABLET GT SCH ×2 (09:27→21:00)
[2019-05-02] MEDS: VITAMINS A AND D OINT TP SCH ×2 (09:28→21:00)
[2019-05-02] MEDS: MULTIVIT, IRON, MIN NO. 8, FA TABLET GT SCH (21:00)
[2019-05-02 21:36] VITALS: BP 142/85
[2019-05-03] MEDS: VITAL AF 1.2 1,000 ML LIQUID GT PRN ×2 (05:00→23:31)
[2019-05-03] MEDS: HYDROGEN PEROXIDE 3% 118 ML BOTTLE TP PRN (07:54)
[2019-05-03] MEDS: HYDROGEN PEROXIDE 3% 118 ML BOTTLE TP SCH ×2 (08:00→20:53)
[2019-05-03 08:07] VITALS: BP 125/72
[2019-05-03] MEDS: LEVETIRACETAM 500 MG/5 ML LIQUID UDC GT SCH ×2 (08:19→21:52)
[2019-05-03] MEDS: METOPROLOL TARTRATE 50 MG TABLET GT SCH ×2 (08:19→21:52)
[2019-05-03] MEDS: ASPIRIN 81 MG TAB.CHEW GT SCH (08:19)
[2019-05-03] MEDS: DIAZEPAM 10 MG TABLET GT SCH ×2 (08:20→21:52)
[2019-05-03] MEDS: VITAMINS A AND D OINT TP SCH ×2 (08:20→21:53)
[2019-05-03] MEDS: COD LIVER OIL/ZINC OXIDE OINT 113 GM TUBE TOP SCH ×2 (08:20→21:53)
[2019-05-03] MEDS: ASCORBIC ACID 500 MG TABLET GT SCH ×2 (08:20→21:53)
[2019-05-03] MEDS: Z GUARD REMEDY PASTE 57 GM TUBE TOP SCH ×2 (08:20→21:53)
[2019-05-03] MEDS: AMLODIPINE 10 MG TABLET GT SCH (08:20)
[2019-05-03] MEDS: LISINOPRIL 10 MG TABLET GT SCH (08:20)
[2019-05-03] MEDS: LACOSAMIDE 100 MG/10 ML UDC GT SCH ×2 (08:20→21:53)
[2019-05-03] MEDS: PHENOBARBITAL 30 MG/7.5 ML LIQUID UDC GT SCH ×2 (08:20→21:52)
[2019-05-03 20:31] VITALS: BP 137/83
[2019-05-03] MEDS: MULTIVIT, IRON, MIN NO. 8, FA TABLET GT SCH (21:52)
[2019-05-04 07:56] LABS: BASOPHILS % (AUTO) 0.6 % (0.0-2.0); EOSINOPHILS # (AUTO) 0.1 K/uL (0.0-0.7); EOSINOPHILS % (AUTO) 3.3 % (0.0-7.0); HEMATOCRIT 35.3 % (31.2-41.9); HEMOGLOBIN 11.9 g/dL (10.9-14.3); LYMPHOCYTES # (AUTO) 1.1 K/uL (20.0-40.0); LYMPHOCYTES % (AUTO) 28.1 % (20.5-51.5); MEAN CORPUSCULAR HEMOGLOBIN 29.8 uug (24.7-32.8); MEAN CORPUSCULAR HGB CONC 34 g/dL (32.3-35.6); MEAN CORPUSCULAR VOLUME 88.2 fL (75.5-95.3); MONOCYTES # (AUTO) 0.3 K/uL (2.0-10.0); MONOCYTES % (AUTO) 8.2 % (0.0-11.0); NEUTROPHILS # (AUTO) 2.4 K/uL (1.8-8.9); NEUTROPHILS % (AUTO) 59.8 % (38.5-71.5); PLATELET COUNT (AUTO) 170 K/uL (179-408)
[2019-05-04 08:09] VITALS: BP 110/69
[2019-05-04 08:12] LABS: CARBON DIOXIDE 31 mmol/L (21-32); CHLORIDE 105 mmol/L (98-107); CREATININE 0.3 mg/dL (0.6-1.3); GLUCOSE 103 mg/dL (74-106); MAGNESIUM 1.8 mg/dL (1.8-2.4); PHOSPHOROUS 4.2 mg/dL (2.5-4.9); POTASSIUM 4.2 mmol/L (3.5-5.1); UREA NITROGEN, BLOOD 19 mg/dL (7-18)
[2019-05-04] MEDS: LEVETIRACETAM 500 MG/5 ML LIQUID UDC GT SCH ×2 (08:52→21:56)
[2019-05-04] MEDS: METOPROLOL TARTRATE 50 MG TABLET GT SCH ×2 (08:52→21:57)
[2019-05-04] MEDS: ASPIRIN 81 MG TAB.CHEW GT SCH (08:52)
[2019-05-04] MEDS: AMLODIPINE 10 MG TABLET GT SCH (08:53)
[2019-05-04] MEDS: PHENOBARBITAL 30 MG/7.5 ML LIQUID UDC GT SCH ×2 (08:53→21:57)
[2019-05-04] MEDS: DIAZEPAM 10 MG TABLET GT SCH ×2 (08:54→21:57)
[2019-05-04] MEDS: LACOSAMIDE 100 MG/10 ML UDC GT SCH ×2 (08:54→21:57)
[2019-05-04] MEDS: LISINOPRIL 10 MG TABLET GT SCH (08:54)
[2019-05-04] MEDS: Z GUARD REMEDY PASTE 57 GM TUBE TOP SCH ×2 (08:55→21:57)
[2019-05-04] MEDS: COD LIVER OIL/ZINC OXIDE OINT 113 GM TUBE TOP SCH ×2 (08:55→21:57)
[2019-05-04] MEDS: ASCORBIC ACID 500 MG TABLET GT SCH ×2 (08:55→21:57)
[2019-05-04] MEDS: VITAMINS A AND D OINT TP SCH ×2 (08:55→21:57)
[2019-05-04] MEDS: HYDROGEN PEROXIDE 3% 118 ML BOTTLE TP SCH ×2 (09:53→21:01)
[2019-05-04] MEDS: VITAL AF 1.2 1,000 ML LIQUID GT PRN (17:22)
[2019-05-04 20:30] VITALS: BP 136/84
[2019-05-04] MEDS ORDERED: NYSTATIN SUSPENSION 5 ML LIQUID UDC PO SCH (21:00)
[2019-05-04] MEDS: MULTIVIT, IRON, MIN NO. 8, FA TABLET GT SCH (21:57)
[2019-05-05 08:09] VITALS: BP 105/62
[2019-05-05] MEDS: LEVETIRACETAM 500 MG/5 ML LIQUID UDC GT SCH ×2 (08:28→20:44)
[2019-05-05] MEDS: ASPIRIN 81 MG TAB.CHEW GT SCH (08:28)
[2019-05-05] MEDS: METOPROLOL TARTRATE 50 MG TABLET GT SCH ×2 (08:29→20:46)
[2019-05-05] MEDS: PHENOBARBITAL 30 MG/7.5 ML LIQUID UDC GT SCH ×2 (08:30→20:47)
[2019-05-05] MEDS: LISINOPRIL 10 MG TABLET GT SCH (08:30)
[2019-05-05] MEDS: LACOSAMIDE 100 MG/10 ML UDC GT SCH ×2 (08:30→20:47)
[2019-05-05] MEDS: AMLODIPINE 10 MG TABLET GT SCH (08:30)
[2019-05-05] MEDS: DIAZEPAM 10 MG TABLET GT SCH ×2 (08:30→20:47)
[2019-05-05] MEDS: ASCORBIC ACID 500 MG TABLET GT SCH ×2 (08:30→20:47)
[2019-05-05] MEDS: VITAMINS A AND D OINT TP SCH ×2 (08:31→20:49)
[2019-05-05] MEDS: COD LIVER OIL/ZINC OXIDE OINT 113 GM TUBE TOP SCH ×2 (08:31→20:48)
[2019-05-05] MEDS: NYSTATIN SUSPENSION 5 ML LIQUID UDC PO SCH ×4 (08:31→20:47)
[2019-05-05] MEDS: Z GUARD REMEDY PASTE 57 GM TUBE TOP SCH ×2 (08:31→20:48)
[2019-05-05] MEDS: HYDROGEN PEROXIDE 3% 118 ML BOTTLE TP SCH ×2 (09:00→21:04)
[2019-05-05] MEDS: VITAL AF 1.2 1,000 ML LIQUID GT PRN (12:16)
[2019-05-05] MEDS: MULTIVIT, IRON, MIN NO. 8, FA TABLET GT SCH (20:47)
[2019-05-05 20:57] VITALS: BP 132/95
[2019-05-06] MEDS: VITAL AF 1.2 1,000 ML LIQUID GT PRN (06:00)
[2019-05-06] MEDS: HYDROGEN PEROXIDE 3% 118 ML BOTTLE TP SCH ×2 (07:56→21:02)
[2019-05-06 08:09] VITALS: BP 135/82
[2019-05-06 08:10] VITALS: BP 120/78
[2019-05-06] MEDS: ASPIRIN 81 MG TAB.CHEW GT SCH (08:55)
[2019-05-06] MEDS: LEVETIRACETAM 500 MG/5 ML LIQUID UDC GT SCH ×2 (08:55→20:58)
[2019-05-06] MEDS: LACOSAMIDE 100 MG/10 ML UDC GT SCH ×2 (08:57→20:59)
[2019-05-06] MEDS: PHENOBARBITAL 30 MG/7.5 ML LIQUID UDC GT SCH ×2 (08:57→20:59)
[2019-05-06] MEDS: DIAZEPAM 10 MG TABLET GT SCH ×2 (08:57→20:59)
[2019-05-06] MEDS: AMLODIPINE 10 MG TABLET GT SCH (08:57)
[2019-05-06] MEDS: METOPROLOL TARTRATE 50 MG TABLET GT SCH ×2 (08:57→20:59)
[2019-05-06] MEDS: LISINOPRIL 10 MG TABLET GT SCH (08:57)
[2019-05-06] MEDS: COD LIVER OIL/ZINC OXIDE OINT 113 GM TUBE TOP SCH ×2 (08:58→20:59)
[2019-05-06] MEDS: NYSTATIN SUSPENSION 5 ML LIQUID UDC PO SCH ×4 (08:58→20:59)
[2019-05-06] MEDS: Z GUARD REMEDY PASTE 57 GM TUBE TOP SCH ×2 (08:58→20:59)
[2019-05-06] MEDS: VITAMINS A AND D OINT TP SCH ×2 (08:58→21:00)
[2019-05-06] MEDS: ASCORBIC ACID 500 MG TABLET GT SCH ×2 (08:58→20:59)
[2019-05-06 20:00] VITALS: BP 140/94
[2019-05-06] MEDS: MULTIVIT, IRON, MIN NO. 8, FA TABLET GT SCH (20:59)
[2019-05-07 08:00] VITALS: BP 115/58
[2019-05-07] MEDS: AMLODIPINE 10 MG TABLET GT SCH (09:00)
[2019-05-07] MEDS: LISINOPRIL 10 MG TABLET GT SCH (09:00)
[2019-05-07] MEDS: METOPROLOL TARTRATE 50 MG TABLET GT SCH ×2 (09:00→20:56)
[2019-05-07] MEDS: ASPIRIN 81 MG TAB.CHEW GT SCH (09:00)
[2019-05-07] MEDS: LEVETIRACETAM 500 MG/5 ML LIQUID UDC GT SCH ×2 (09:00→20:56)
[2019-05-07] MEDS: PHENOBARBITAL 30 MG/7.5 ML LIQUID UDC GT SCH ×2 (09:02→20:57)
[2019-05-07] MEDS: VITAMINS A AND D OINT TP SCH ×2 (09:02→20:59)
[2019-05-07] MEDS: COD LIVER OIL/ZINC OXIDE OINT 113 GM TUBE TOP SCH ×2 (09:02→20:59)
[2019-05-07] MEDS: NYSTATIN SUSPENSION 5 ML LIQUID UDC PO SCH ×4 (09:02→20:59)
[2019-05-07] MEDS: LACOSAMIDE 100 MG/10 ML UDC GT SCH ×2 (09:02→20:57)
[2019-05-07] MEDS: DIAZEPAM 10 MG TABLET GT SCH ×2 (09:02→20:57)
[2019-05-07] MEDS: ASCORBIC ACID 500 MG TABLET GT SCH ×2 (09:02→20:57)
[2019-05-07] MEDS: Z GUARD REMEDY PASTE 57 GM TUBE TOP SCH ×2 (09:02→20:59)
[2019-05-07] MEDS: HYDROGEN PEROXIDE 3% 118 ML BOTTLE TP SCH ×2 (09:45→21:52)
[2019-05-07 20:13] VITALS: BP 125/78
[2019-05-07] MEDS: MULTIVIT, IRON, MIN NO. 8, FA TABLET GT SCH (20:57)
[2019-05-08] MEDS: VITAL AF 1.2 1,000 ML LIQUID GT PRN ×2 (00:30→17:37)
[2019-05-08 08:00] VITALS: BP 120/76
[2019-05-08] MEDS: HYDROGEN PEROXIDE 3% 118 ML BOTTLE TP SCH ×2 (08:30→20:57)
[2019-05-08] MEDS: LEVETIRACETAM 500 MG/5 ML LIQUID UDC GT SCH ×2 (08:40→20:14)
[2019-05-08] MEDS: ASPIRIN 81 MG TAB.CHEW GT SCH (08:40)
[2019-05-08] MEDS: METOPROLOL TARTRATE 50 MG TABLET GT SCH ×2 (08:43→20:14)
[2019-05-08] MEDS: AMLODIPINE 10 MG TABLET GT SCH (08:43)
[2019-05-08] MEDS: PHENOBARBITAL 30 MG/7.5 ML LIQUID UDC GT SCH ×2 (08:43→20:14)
[2019-05-08] MEDS: Z GUARD REMEDY PASTE 57 GM TUBE TOP SCH ×2 (08:44→20:14)
[2019-05-08] MEDS: LACOSAMIDE 100 MG/10 ML UDC GT SCH ×2 (08:44→20:14)
[2019-05-08] MEDS: DIAZEPAM 10 MG TABLET GT SCH ×2 (08:44→20:14)
[2019-05-08] MEDS: ASCORBIC ACID 500 MG TABLET GT SCH ×2 (08:44→20:14)
[2019-05-08] MEDS: NYSTATIN SUSPENSION 5 ML LIQUID UDC PO SCH ×4 (08:44→20:14)
[2019-05-08] MEDS: COD LIVER OIL/ZINC OXIDE OINT 113 GM TUBE TOP SCH ×2 (08:44→20:14)
[2019-05-08] MEDS: LISINOPRIL 10 MG TABLET GT SCH (08:44)
[2019-05-08] MEDS: VITAMINS A AND D OINT TP SCH ×2 (08:44→20:14)
[2019-05-08 20:09] VITALS: BP 123/85
[2019-05-08] MEDS: MULTIVIT, IRON, MIN NO. 8, FA TABLET GT SCH (20:14)
[2019-05-09] MEDS: LISINOPRIL 10 MG TABLET GT SCH (09:00)
[2019-05-09] MEDS: METOPROLOL TARTRATE 50 MG TABLET GT SCH ×2 (09:00→20:43)
[2019-05-09] MEDS: AMLODIPINE 10 MG TABLET GT SCH (09:00)
[2019-05-09] MEDS: ASPIRIN 81 MG TAB.CHEW GT SCH (09:20)
[2019-05-09] MEDS: LEVETIRACETAM 500 MG/5 ML LIQUID UDC GT SCH ×2 (09:20→20:43)
[2019-05-09] MEDS: DIAZEPAM 10 MG TABLET GT SCH ×2 (09:25→20:43)
[2019-05-09] MEDS: ASCORBIC ACID 500 MG TABLET GT SCH ×2 (09:25→20:43)
[2019-05-09] MEDS: LACOSAMIDE 100 MG/10 ML UDC GT SCH ×2 (09:25→20:43)
[2019-05-09] MEDS: PHENOBARBITAL 30 MG/7.5 ML LIQUID UDC GT SCH ×2 (09:25→20:43)
[2019-05-09] MEDS: Z GUARD REMEDY PASTE 57 GM TUBE TOP SCH ×2 (09:27→20:43)
[2019-05-09] MEDS: COD LIVER OIL/ZINC OXIDE OINT 113 GM TUBE TOP SCH ×2 (09:27→20:43)
[2019-05-09] MEDS: VITAMINS A AND D OINT TP SCH ×2 (09:27→20:43)
[2019-05-09] MEDS: NYSTATIN SUSPENSION 5 ML LIQUID UDC PO SCH ×4 (09:27→20:43)
[2019-05-09] MEDS: HYDROGEN PEROXIDE 3% 118 ML BOTTLE TP SCH ×2 (09:45→21:00)
[2019-05-09 11:58] VITALS: BP 100/62
[2019-05-09] MEDS: VITAL AF 1.2 1,000 ML LIQUID GT PRN (13:19)
[2019-05-09] MEDS: MULTIVIT, IRON, MIN NO. 8, FA TABLET GT SCH (20:43)
[2019-05-09 23:35] VITALS: BP 123/85
[2019-05-10] MEDS: VITAL AF 1.2 1,000 ML LIQUID GT PRN ×2 (03:25→22:01)
[2019-05-10 08:10] VITALS: BP 129/86
[2019-05-10] MEDS: ASPIRIN 81 MG TAB.CHEW GT SCH (08:45)
[2019-05-10] MEDS: LEVETIRACETAM 500 MG/5 ML LIQUID UDC GT SCH ×2 (08:45→20:31)
[2019-05-10] MEDS: METOPROLOL TARTRATE 50 MG TABLET GT SCH ×2 (08:48→20:31)
[2019-05-10] MEDS: AMLODIPINE 10 MG TABLET GT SCH (08:49)
[2019-05-10] MEDS: PHENOBARBITAL 30 MG/7.5 ML LIQUID UDC GT SCH ×2 (08:49→20:32)
[2019-05-10] MEDS: DIAZEPAM 10 MG TABLET GT SCH ×2 (08:50→20:32)
[2019-05-10] MEDS: LACOSAMIDE 100 MG/10 ML UDC GT SCH ×2 (08:50→20:32)
[2019-05-10] MEDS: COD LIVER OIL/ZINC OXIDE OINT 113 GM TUBE TOP SCH ×2 (08:50→20:32)
[2019-05-10] MEDS: Z GUARD REMEDY PASTE 57 GM TUBE TOP SCH ×2 (08:50→20:32)
[2019-05-10] MEDS: LISINOPRIL 10 MG TABLET GT SCH (08:50)
[2019-05-10] MEDS: VITAMINS A AND D OINT TP SCH ×2 (08:50→20:32)
[2019-05-10] MEDS: ASCORBIC ACID 500 MG TABLET GT SCH ×2 (08:50→20:32)
[2019-05-10] MEDS: HYDROGEN PEROXIDE 3% 118 ML BOTTLE TP SCH ×2 (09:41→21:11)
[2019-05-10] MEDS: MULTIVIT, IRON, MIN NO. 8, FA TABLET GT SCH (20:32)
[2019-05-10 23:49] VITALS: BP 117/79
[2019-05-11 08:00] VITALS: BP 108/57
[2019-05-11] MEDS: ASPIRIN 81 MG TAB.CHEW GT SCH (08:08)
[2019-05-11] MEDS: LEVETIRACETAM 500 MG/5 ML LIQUID UDC GT SCH ×2 (08:08→20:31)
[2019-05-11] MEDS: METOPROLOL TARTRATE 50 MG TABLET GT SCH ×2 (08:08→20:32)
[2019-05-11] MEDS: ASCORBIC ACID 500 MG TABLET GT SCH ×2 (08:09→20:32)
[2019-05-11] MEDS: Z GUARD REMEDY PASTE 57 GM TUBE TOP SCH ×2 (08:09→20:32)
[2019-05-11] MEDS: AMLODIPINE 10 MG TABLET GT SCH (08:09)
[2019-05-11] MEDS: COD LIVER OIL/ZINC OXIDE OINT 113 GM TUBE TOP SCH ×2 (08:09→20:32)
[2019-05-11] MEDS: LACOSAMIDE 100 MG/10 ML UDC GT SCH ×2 (08:09→20:32)
[2019-05-11] MEDS: VITAMINS A AND D OINT TP SCH ×2 (08:09→20:32)
[2019-05-11] MEDS: LISINOPRIL 10 MG TABLET GT SCH (08:09)
[2019-05-11] MEDS: DIAZEPAM 10 MG TABLET GT SCH ×2 (08:09→20:32)
[2019-05-11] MEDS: PHENOBARBITAL 30 MG/7.5 ML LIQUID UDC GT SCH ×2 (08:09→20:32)
[2019-05-11] MEDS: HYDROGEN PEROXIDE 3% 118 ML BOTTLE TP SCH ×2 (09:49→21:42)
[2019-05-11] MEDS: VITAL AF 1.2 1,000 ML LIQUID GT PRN (17:35)
[2019-05-11 20:19] VITALS: BP 133/81
[2019-05-11] MEDS: MULTIVIT, IRON, MIN NO. 8, FA TABLET GT SCH (20:32)
[2019-05-12 08:00] VITALS: BP 133/75
[2019-05-12] MEDS: LEVETIRACETAM 500 MG/5 ML LIQUID UDC GT SCH ×2 (08:03→21:31)
[2019-05-12] MEDS: METOPROLOL TARTRATE 50 MG TABLET GT SCH ×2 (08:03→21:31)
[2019-05-12] MEDS: ASPIRIN 81 MG TAB.CHEW GT SCH (08:03)
[2019-05-12] MEDS: AMLODIPINE 10 MG TABLET GT SCH (08:04)
[2019-05-12] MEDS: PHENOBARBITAL 30 MG/7.5 ML LIQUID UDC GT SCH ×2 (08:04→21:31)
[2019-05-12] MEDS: VITAMINS A AND D OINT TP SCH ×2 (08:04→21:32)
[2019-05-12] MEDS: ASCORBIC ACID 500 MG TABLET GT SCH ×2 (08:04→21:32)
[2019-05-12] MEDS: Z GUARD REMEDY PASTE 57 GM TUBE TOP SCH ×2 (08:04→21:32)
[2019-05-12] MEDS: DIAZEPAM 10 MG TABLET GT SCH ×2 (08:04→21:32)
[2019-05-12] MEDS: COD LIVER OIL/ZINC OXIDE OINT 113 GM TUBE TOP SCH ×2 (08:04→21:32)
[2019-05-12] MEDS: LACOSAMIDE 100 MG/10 ML UDC GT SCH ×2 (08:04→21:32)
[2019-05-12] MEDS: LISINOPRIL 10 MG TABLET GT SCH (08:04)
[2019-05-12] MEDS: HYDROGEN PEROXIDE 3% 118 ML BOTTLE TP SCH ×2 (09:35→21:28)
[2019-05-12] MEDS: VITAL AF 1.2 1,000 ML LIQUID GT PRN (10:25)
[2019-05-12 20:22] VITALS: BP 141/86
[2019-05-12] MEDS: MULTIVIT, IRON, MIN NO. 8, FA TABLET GT SCH (21:31)
[2019-05-13] MEDS: VITAL AF 1.2 1,000 ML LIQUID GT PRN (01:32)
[2019-05-13] MEDS: HYDROGEN PEROXIDE 3% 118 ML BOTTLE TP SCH ×2 (07:40→21:36)
[2019-05-13 08:00] VITALS: BP 112/65
[2019-05-13] MEDS: LEVETIRACETAM 500 MG/5 ML LIQUID UDC GT SCH ×2 (08:23→21:35)
[2019-05-13] MEDS: ASPIRIN 81 MG TAB.CHEW GT SCH (08:23)
[2019-05-13] MEDS: METOPROLOL TARTRATE 50 MG TABLET GT SCH ×2 (08:24→21:35)
[2019-05-13] MEDS: AMLODIPINE 10 MG TABLET GT SCH (08:24)
[2019-05-13] MEDS: PHENOBARBITAL 30 MG/7.5 ML LIQUID UDC GT SCH ×2 (08:24→21:35)
[2019-05-13] MEDS: COD LIVER OIL/ZINC OXIDE OINT 113 GM TUBE TOP SCH ×2 (08:25→21:36)
[2019-05-13] MEDS: ASCORBIC ACID 500 MG TABLET GT SCH ×2 (08:25→21:36)
[2019-05-13] MEDS: VITAMINS A AND D OINT TP SCH ×2 (08:25→21:38)
[2019-05-13] MEDS: LACOSAMIDE 100 MG/10 ML UDC GT SCH ×2 (08:25→21:36)
[2019-05-13] MEDS: DIAZEPAM 10 MG TABLET GT SCH ×2 (08:25→21:36)
[2019-05-13] MEDS: Z GUARD REMEDY PASTE 57 GM TUBE TOP SCH ×2 (08:25→21:36)
[2019-05-13] MEDS: LISINOPRIL 10 MG TABLET GT SCH (08:25)
[2019-05-13 20:09] VITALS: BP 139/89
[2019-05-13] MEDS: MULTIVIT, IRON, MIN NO. 8, FA TABLET GT SCH (21:35)
[2019-05-14 08:00] VITALS: BP 117/61
[2019-05-14] MEDS: HYDROGEN PEROXIDE 3% 118 ML BOTTLE TP SCH ×2 (08:13→21:44)
[2019-05-14] MEDS: ASPIRIN 81 MG TAB.CHEW GT SCH (08:40)
[2019-05-14] MEDS: LEVETIRACETAM 500 MG/5 ML LIQUID UDC GT SCH ×2 (08:40→20:40)
[2019-05-14] MEDS: AMLODIPINE 10 MG TABLET GT SCH (08:41)
[2019-05-14] MEDS: METOPROLOL TARTRATE 50 MG TABLET GT SCH ×2 (08:41→20:42)
[2019-05-14] MEDS: COD LIVER OIL/ZINC OXIDE OINT 113 GM TUBE TOP SCH ×2 (08:42→20:43)
[2019-05-14] MEDS: LISINOPRIL 10 MG TABLET GT SCH (08:42)
[2019-05-14] MEDS: DIAZEPAM 10 MG TABLET GT SCH ×2 (08:42→20:42)
[2019-05-14] MEDS: ASCORBIC ACID 500 MG TABLET GT SCH ×2 (08:42→20:42)
[2019-05-14] MEDS: LACOSAMIDE 100 MG/10 ML UDC GT SCH ×2 (08:42→20:42)
[2019-05-14] MEDS: VITAMINS A AND D OINT TP SCH ×2 (08:42→20:44)
[2019-05-14] MEDS: PHENOBARBITAL 30 MG/7.5 ML LIQUID UDC GT SCH ×2 (08:42→20:42)
[2019-05-14] MEDS: Z GUARD REMEDY PASTE 57 GM TUBE TOP SCH ×2 (09:02→20:43)
[2019-05-14 20:16] VITALS: BP 147/80
[2019-05-14] MEDS: MULTIVIT, IRON, MIN NO. 8, FA TABLET GT SCH (20:42)
[2019-05-15 08:00] VITALS: BP 117/70
[2019-05-15] MEDS: ASPIRIN 81 MG TAB.CHEW GT SCH (08:32)
[2019-05-15] MEDS: LEVETIRACETAM 500 MG/5 ML LIQUID UDC GT SCH ×2 (08:32→21:56)
[2019-05-15] MEDS: METOPROLOL TARTRATE 50 MG TABLET GT SCH ×2 (08:32→21:57)
[2019-05-15] MEDS: ASCORBIC ACID 500 MG TABLET GT SCH ×2 (08:33→21:59)
[2019-05-15] MEDS: DIAZEPAM 10 MG TABLET GT SCH ×2 (08:33→21:57)
[2019-05-15] MEDS: VITAMINS A AND D OINT TP SCH ×2 (08:33→21:57)
[2019-05-15] MEDS: Z GUARD REMEDY PASTE 57 GM TUBE TOP SCH ×2 (08:33→21:57)
[2019-05-15] MEDS: COD LIVER OIL/ZINC OXIDE OINT 113 GM TUBE TOP SCH ×2 (08:33→21:57)
[2019-05-15] MEDS: LISINOPRIL 10 MG TABLET GT SCH (08:33)
[2019-05-15] MEDS: PHENOBARBITAL 30 MG/7.5 ML LIQUID UDC GT SCH ×2 (08:33→21:57)
[2019-05-15] MEDS: LACOSAMIDE 100 MG/10 ML UDC GT SCH ×2 (08:33→21:57)
[2019-05-15] MEDS: AMLODIPINE 10 MG TABLET GT SCH (08:33)
[2019-05-15] MEDS: HYDROGEN PEROXIDE 3% 118 ML BOTTLE TP SCH ×2 (09:00→21:11)
[2019-05-15] MEDS ORDERED: INFLUENZA VACCINE 2019-2020 0.5 ML DISP.SYRIN IM ONE (21:00)
[2019-05-15] MEDS: MULTIVIT, IRON, MIN NO. 8, FA TABLET GT SCH (21:57)
[2019-05-16] MEDS: VITAL AF 1.2 1,000 ML LIQUID GT PRN ×2 (07:14→21:40)
[2019-05-16] MEDS: HYDROGEN PEROXIDE 3% 118 ML BOTTLE TP SCH ×2 (08:43→21:12)
[2019-05-16] MEDS: AMLODIPINE 10 MG TABLET GT SCH (09:00)
[2019-05-16] MEDS: LEVETIRACETAM 500 MG/5 ML LIQUID UDC GT SCH ×2 (09:00→21:39)
[2019-05-16] MEDS: ASPIRIN 81 MG TAB.CHEW GT SCH (09:00)
[2019-05-16] MEDS: METOPROLOL TARTRATE 50 MG TABLET GT SCH ×2 (09:00→21:40)
[2019-05-16] MEDS: LISINOPRIL 10 MG TABLET GT SCH (09:00)
[2019-05-16] MEDS: VITAMINS A AND D OINT TP SCH ×2 (09:00→21:40)
[2019-05-16] MEDS: ASCORBIC ACID 500 MG TABLET GT SCH ×2 (09:00→21:40)
[2019-05-16] MEDS: DIAZEPAM 10 MG TABLET GT SCH ×2 (09:00→21:40)
[2019-05-16] MEDS: LACOSAMIDE 100 MG/10 ML UDC GT SCH ×2 (09:00→21:40)
[2019-05-16] MEDS: Z GUARD REMEDY PASTE 57 GM TUBE TOP SCH ×2 (09:00→21:40)
[2019-05-16] MEDS: PHENOBARBITAL 30 MG/7.5 ML LIQUID UDC GT SCH ×2 (09:00→21:40)
[2019-05-16 18:27] VITALS: BP 111/72
[2019-05-16 20:00] VITALS: BP 149/88
[2019-05-16] MEDS: MULTIVIT, IRON, MIN NO. 8, FA TABLET GT SCH (21:40)
[2019-05-17] MEDS: LEVETIRACETAM 500 MG/5 ML LIQUID UDC GT SCH ×2 (08:57→20:29)
[2019-05-17] MEDS: ASPIRIN 81 MG TAB.CHEW GT SCH (08:57)
[2019-05-17] MEDS: METOPROLOL TARTRATE 50 MG TABLET GT SCH ×2 (08:57→20:29)
[2019-05-17] MEDS: LISINOPRIL 10 MG TABLET GT SCH (08:58)
[2019-05-17] MEDS: PHENOBARBITAL 30 MG/7.5 ML LIQUID UDC GT SCH ×2 (08:58→20:29)
[2019-05-17] MEDS: ASCORBIC ACID 500 MG TABLET GT SCH ×2 (08:58→20:29)
[2019-05-17] MEDS: VITAMINS A AND D OINT TP SCH ×2 (08:58→20:29)
[2019-05-17] MEDS: LACOSAMIDE 100 MG/10 ML UDC GT SCH ×2 (08:58→20:29)
[2019-05-17] MEDS: DIAZEPAM 10 MG TABLET GT SCH ×2 (08:58→20:29)
[2019-05-17] MEDS: Z GUARD REMEDY PASTE 57 GM TUBE TOP SCH ×2 (08:58→20:29)
[2019-05-17] MEDS: AMLODIPINE 10 MG TABLET GT SCH (08:58)
[2019-05-17 09:12] VITALS: BP 119/80
[2019-05-17] MEDS: HYDROGEN PEROXIDE 3% 118 ML BOTTLE TP SCH ×2 (09:35→21:50)
[2019-05-17] MEDS: VITAL AF 1.2 1,000 ML LIQUID GT PRN (17:16)
[2019-05-17] MEDS: MULTIVIT, IRON, MIN NO. 8, FA TABLET GT SCH (20:29)
[2019-05-17 20:40] VITALS: BP 128/76
[2019-05-18 08:00] VITALS: BP 111/68
[2019-05-18] MEDS: ASPIRIN 81 MG TAB.CHEW GT SCH (08:35)
[2019-05-18] MEDS: LEVETIRACETAM 500 MG/5 ML LIQUID UDC GT SCH ×2 (08:35→21:05)
[2019-05-18] MEDS: AMLODIPINE 10 MG TABLET GT SCH (08:36)
[2019-05-18] MEDS: METOPROLOL TARTRATE 50 MG TABLET GT SCH ×2 (08:36→21:05)
[2019-05-18] MEDS: LISINOPRIL 10 MG TABLET GT SCH (08:37)
[2019-05-18] MEDS: PHENOBARBITAL 30 MG/7.5 ML LIQUID UDC GT SCH ×2 (08:44→21:05)
[2019-05-18] MEDS: DIAZEPAM 10 MG TABLET GT SCH ×2 (08:44→21:05)
[2019-05-18] MEDS: VITAMINS A AND D OINT TP SCH ×2 (08:47→21:05)
[2019-05-18] MEDS: Z GUARD REMEDY PASTE 57 GM TUBE TOP SCH ×2 (08:47→21:05)
[2019-05-18] MEDS: LACOSAMIDE 100 MG/10 ML UDC GT SCH ×2 (08:47→21:05)
[2019-05-18] MEDS: ASCORBIC ACID 500 MG TABLET GT SCH ×2 (08:47→21:05)
[2019-05-18] MEDS: HYDROGEN PEROXIDE 3% 118 ML BOTTLE TP SCH ×2 (08:49→21:39)
[2019-05-18] MEDS: VITAL AF 1.2 1,000 ML LIQUID GT PRN (11:37)
[2019-05-18 20:18] VITALS: BP 145/93
[2019-05-18] MEDS: MULTIVIT, IRON, MIN NO. 8, FA TABLET GT SCH (21:05)
[2019-05-19] MEDS: VITAL AF 1.2 1,000 ML LIQUID GT PRN ×2 (01:26→17:10)
[2019-05-19 08:00] VITALS: BP 132/71
[2019-05-19] MEDS: ASPIRIN 81 MG TAB.CHEW GT SCH (08:22)
[2019-05-19] MEDS: LEVETIRACETAM 500 MG/5 ML LIQUID UDC GT SCH ×2 (08:22→21:30)
[2019-05-19] MEDS: PHENOBARBITAL 30 MG/7.5 ML LIQUID UDC GT SCH ×2 (08:23→21:31)
[2019-05-19] MEDS: AMLODIPINE 10 MG TABLET GT SCH (08:23)
[2019-05-19] MEDS: Z GUARD REMEDY PASTE 57 GM TUBE TOP SCH ×2 (08:23→21:31)
[2019-05-19] MEDS: LACOSAMIDE 100 MG/10 ML UDC GT SCH ×2 (08:23→21:31)
[2019-05-19] MEDS: DIAZEPAM 10 MG TABLET GT SCH ×2 (08:23→21:31)
[2019-05-19] MEDS: METOPROLOL TARTRATE 50 MG TABLET GT SCH ×2 (08:23→21:31)
[2019-05-19] MEDS: LISINOPRIL 10 MG TABLET GT SCH (08:23)
[2019-05-19] MEDS: VITAMINS A AND D OINT TP SCH ×2 (08:23→21:31)
[2019-05-19] MEDS: ASCORBIC ACID 500 MG TABLET GT SCH ×2 (08:23→21:31)
[2019-05-19] MEDS: HYDROGEN PEROXIDE 3% 118 ML BOTTLE TP SCH ×2 (08:42→21:58)
[2019-05-19 20:20] VITALS: BP 132/81
[2019-05-19 21:29] VITALS: BP 132/81
[2019-05-19] MEDS: MULTIVIT, IRON, MIN NO. 8, FA TABLET GT SCH (21:31)
[2019-05-20 08:00] VITALS: BP 99/58
[2019-05-20] MEDS: AMLODIPINE 10 MG TABLET GT SCH (08:47)
[2019-05-20] MEDS: ASPIRIN 81 MG TAB.CHEW GT SCH (08:47)
[2019-05-20] MEDS: LEVETIRACETAM 500 MG/5 ML LIQUID UDC GT SCH ×2 (08:47→21:00)
[2019-05-20] MEDS: PHENOBARBITAL 30 MG/7.5 ML LIQUID UDC GT SCH ×2 (08:47→21:00)
[2019-05-20] MEDS: METOPROLOL TARTRATE 50 MG TABLET GT SCH ×2 (08:47→21:00)
[2019-05-20] MEDS: DIAZEPAM 10 MG TABLET GT SCH ×2 (08:48→21:00)
[2019-05-20] MEDS: LISINOPRIL 10 MG TABLET GT SCH (08:48)
[2019-05-20] MEDS: LACOSAMIDE 100 MG/10 ML UDC GT SCH ×2 (08:48→21:00)
[2019-05-20] MEDS: ASCORBIC ACID 500 MG TABLET GT SCH ×2 (08:48→21:00)
[2019-05-20] MEDS: Z GUARD REMEDY PASTE 57 GM TUBE TOP SCH ×2 (08:48→21:00)
[2019-05-20] MEDS: VITAMINS A AND D OINT TP SCH ×2 (08:48→21:00)
[2019-05-20] MEDS: VITAL AF 1.2 1,000 ML LIQUID GT PRN (08:50)
[2019-05-20] MEDS: HYDROGEN PEROXIDE 3% 118 ML BOTTLE TP SCH ×2 (10:23→21:02)
[2019-05-20 19:48] VITALS: BP 140/85
[2019-05-20] MEDS: MULTIVIT, IRON, MIN NO. 8, FA TABLET GT SCH (21:00)
[2019-05-21] MEDS: VITAL AF 1.2 1,000 ML LIQUID GT PRN (01:20)
[2019-05-21 05:35] LABS: BASOPHILS % (AUTO) 0.9 % (0.0-2.0); EOSINOPHILS # (AUTO) 0.2 K/uL (0.0-0.7); EOSINOPHILS % (AUTO) 4.4 % (0.0-7.0); HEMATOCRIT 35.9 % (31.2-41.9); HEMOGLOBIN 12.1 g/dL (10.9-14.3); LYMPHOCYTES # (AUTO) 1.1 K/uL (20.0-40.0); LYMPHOCYTES % (AUTO) 32.2 % (20.5-51.5); MEAN CORPUSCULAR HEMOGLOBIN 29.3 uug (24.7-32.8); MEAN CORPUSCULAR HGB CONC 34 g/dL (32.3-35.6); MEAN CORPUSCULAR VOLUME 86.9 fL (75.5-95.3); MONOCYTES # (AUTO) 0.3 K/uL (2.0-10.0); MONOCYTES % (AUTO) 9.7 % (0.0-11.0); NEUTROPHILS # (AUTO) 1.8 K/uL (1.8-8.9); NEUTROPHILS % (AUTO) 52.8 % (38.5-71.5); PLATELET COUNT (AUTO) 145 K/uL (179-408); RED BLOOD CELL COUNT(AUTO) 4.13 MIL/uL (3.63-4.92); WHITE BLOOD COUNT (AUTO) 3.4 K/uL (3.8-11.8)
[2019-05-21 05:55] LABS: CARBON DIOXIDE 34 mmol/L (21-32); CHLORIDE 105 mmol/L (98-107); CREATININE 0.3 mg/dL (0.6-1.3); GLUCOSE 95 mg/dL (74-106); POTASSIUM 4.3 mmol/L (3.5-5.1); UREA NITROGEN, BLOOD 19 mg/dL (7-18)
[2019-05-21 08:00] VITALS: BP 117/71
[2019-05-21] MEDS: LEVETIRACETAM 500 MG/5 ML LIQUID UDC GT SCH ×2 (08:23→21:00)
[2019-05-21] MEDS: ASPIRIN 81 MG TAB.CHEW GT SCH (08:23)
[2019-05-21] MEDS: LISINOPRIL 10 MG TABLET GT SCH (08:24)
[2019-05-21] MEDS: PHENOBARBITAL 30 MG/7.5 ML LIQUID UDC GT SCH ×2 (08:24→21:00)
[2019-05-21] MEDS: LACOSAMIDE 100 MG/10 ML UDC GT SCH ×2 (08:24→21:00)
[2019-05-21] MEDS: DIAZEPAM 10 MG TABLET GT SCH ×2 (08:24→21:00)
[2019-05-21] MEDS: AMLODIPINE 10 MG TABLET GT SCH (08:24)
[2019-05-21] MEDS: METOPROLOL TARTRATE 50 MG TABLET GT SCH ×2 (08:24→21:00)
[2019-05-21] MEDS: VITAMINS A AND D OINT TP SCH ×2 (08:25→21:00)
[2019-05-21] MEDS: Z GUARD REMEDY PASTE 57 GM TUBE TOP SCH ×2 (08:25→21:00)
[2019-05-21] MEDS: ASCORBIC ACID 500 MG TABLET GT SCH ×2 (08:25→21:00)
[2019-05-21] MEDS: HYDROGEN PEROXIDE 3% 118 ML BOTTLE TP SCH ×2 (10:40→21:18)
[2019-05-21] MEDS: MULTIVIT, IRON, MIN NO. 8, FA TABLET GT SCH (21:00)
[2019-05-22 08:00] VITALS: BP 129/73
[2019-05-22] MEDS: ASPIRIN 81 MG TAB.CHEW GT SCH (08:33)
[2019-05-22] MEDS: LEVETIRACETAM 500 MG/5 ML LIQUID UDC GT SCH ×2 (08:33→21:00)
[2019-05-22] MEDS: LACOSAMIDE 100 MG/10 ML UDC GT SCH ×2 (08:34→21:00)
[2019-05-22] MEDS: AMLODIPINE 10 MG TABLET GT SCH (08:34)
[2019-05-22] MEDS: DIAZEPAM 10 MG TABLET GT SCH ×2 (08:34→21:00)
[2019-05-22] MEDS: VITAMINS A AND D OINT TP SCH ×2 (08:34→21:00)
[2019-05-22] MEDS: METOPROLOL TARTRATE 50 MG TABLET GT SCH ×2 (08:34→21:00)
[2019-05-22] MEDS: Z GUARD REMEDY PASTE 57 GM TUBE TOP SCH ×2 (08:34→21:00)
[2019-05-22] MEDS: LISINOPRIL 10 MG TABLET GT SCH (08:34)
[2019-05-22] MEDS: ASCORBIC ACID 500 MG TABLET GT SCH ×2 (08:34→21:00)
[2019-05-22] MEDS: PHENOBARBITAL 30 MG/7.5 ML LIQUID UDC GT SCH ×2 (08:34→21:00)
[2019-05-22] MEDS: HYDROGEN PEROXIDE 3% 118 ML BOTTLE TP SCH ×2 (08:38→21:31)
[2019-05-22 20:11] VITALS: BP 137/81
[2019-05-22] MEDS: MULTIVIT, IRON, MIN NO. 8, FA TABLET GT SCH (21:00)
[2019-05-23 07:57] VITALS: BP 98/54
[2019-05-23] MEDS: HYDROGEN PEROXIDE 3% 118 ML BOTTLE TP SCH ×2 (08:11→20:39)
[2019-05-23] MEDS: LISINOPRIL 10 MG TABLET GT SCH (09:00)
[2019-05-23] MEDS: PHENOBARBITAL 30 MG/7.5 ML LIQUID UDC GT SCH ×2 (09:00→20:38)
[2019-05-23] MEDS: AMLODIPINE 10 MG TABLET GT SCH (09:00)
[2019-05-23] MEDS: DIAZEPAM 10 MG TABLET GT SCH ×2 (09:00→20:39)
[2019-05-23] MEDS: LACOSAMIDE 100 MG/10 ML UDC GT SCH ×2 (09:00→20:39)
[2019-05-23] MEDS: METOPROLOL TARTRATE 50 MG TABLET GT SCH ×2 (09:00→20:38)
[2019-05-23] MEDS: ASPIRIN 81 MG TAB.CHEW GT SCH (09:00)
[2019-05-23] MEDS: LEVETIRACETAM 500 MG/5 ML LIQUID UDC GT SCH ×2 (09:55→20:38)
[2019-05-23] MEDS: VITAMINS A AND D OINT TP SCH ×2 (09:56→20:39)
[2019-05-23] MEDS: ASCORBIC ACID 500 MG TABLET GT SCH ×2 (09:56→20:39)
[2019-05-23] MEDS: Z GUARD REMEDY PASTE 57 GM TUBE TOP SCH ×2 (09:56→20:39)
[2019-05-23] MEDS: MULTIVIT, IRON, MIN NO. 8, FA TABLET GT SCH (20:39)
[2019-05-23 22:58] VITALS: BP 133/84
[2019-05-23] MEDS: VITAL AF 1.2 1,000 ML LIQUID GT PRN (23:00)
[2019-05-24 08:09] VITALS: BP 117/73
[2019-05-24] MEDS: HYDROGEN PEROXIDE 3% 118 ML BOTTLE TP SCH ×2 (08:18→21:20)
[2019-05-24] MEDS: AMLODIPINE 10 MG TABLET GT SCH (09:00)
[2019-05-24] MEDS: LISINOPRIL 10 MG TABLET GT SCH (09:00)
[2019-05-24] MEDS: METOPROLOL TARTRATE 50 MG TABLET GT SCH ×2 (09:00→21:55)
[2019-05-24] MEDS: LEVETIRACETAM 500 MG/5 ML LIQUID UDC GT SCH ×2 (09:48→21:54)
[2019-05-24] MEDS: ASPIRIN 81 MG TAB.CHEW GT SCH (09:48)
[2019-05-24] MEDS: DIAZEPAM 10 MG TABLET GT SCH ×2 (09:53→21:55)
[2019-05-24] MEDS: PHENOBARBITAL 30 MG/7.5 ML LIQUID UDC GT SCH ×2 (09:53→21:55)
[2019-05-24] MEDS: LACOSAMIDE 100 MG/10 ML UDC GT SCH ×2 (09:53→21:55)
[2019-05-24] MEDS: ASCORBIC ACID 500 MG TABLET GT SCH ×2 (09:54→21:55)
[2019-05-24] MEDS: Z GUARD REMEDY PASTE 57 GM TUBE TOP SCH ×2 (09:56→21:55)
[2019-05-24] MEDS: VITAMINS A AND D OINT TP SCH ×2 (09:57→21:55)
[2019-05-24] MEDS: VITAL AF 1.2 1,000 ML LIQUID GT PRN (12:57)
[2019-05-24] MEDS: MULTIVIT, IRON, MIN NO. 8, FA TABLET GT SCH (21:55)
[2019-05-24 23:28] VITALS: BP 129/84
[2019-05-25] MEDS: VITAL AF 1.2 1,000 ML LIQUID GT PRN (07:19)
[2019-05-25 08:00] VITALS: BP 119/60
[2019-05-25] MEDS: HYDROGEN PEROXIDE 3% 118 ML BOTTLE TP SCH ×2 (08:27→21:14)
[2019-05-25] MEDS: METOPROLOL TARTRATE 50 MG TABLET GT SCH ×2 (09:00→21:20)
[2019-05-25] MEDS: AMLODIPINE 10 MG TABLET GT SCH (09:00)
[2019-05-25] MEDS: LISINOPRIL 10 MG TABLET GT SCH (09:00)
[2019-05-25] MEDS: ASPIRIN 81 MG TAB.CHEW GT SCH (09:06)
[2019-05-25] MEDS: ASCORBIC ACID 500 MG TABLET GT SCH ×2 (09:07→21:20)
[2019-05-25] MEDS: LACOSAMIDE 100 MG/10 ML UDC GT SCH ×2 (09:07→21:20)
[2019-05-25] MEDS: PHENOBARBITAL 30 MG/7.5 ML LIQUID UDC GT SCH ×2 (09:07→21:20)
[2019-05-25] MEDS: DIAZEPAM 10 MG TABLET GT SCH ×2 (09:07→21:20)
[2019-05-25] MEDS: LEVETIRACETAM 500 MG/5 ML LIQUID UDC GT SCH ×2 (09:12→21:20)
[2019-05-25] MEDS: Z GUARD REMEDY PASTE 57 GM TUBE TOP SCH ×2 (09:15→21:20)
[2019-05-25] MEDS: VITAMINS A AND D OINT TP SCH ×2 (09:15→21:21)
[2019-05-25] MEDS: MULTIVIT, IRON, MIN NO. 8, FA TABLET GT SCH (21:20)
[2019-05-25 22:00] VITALS: BP 153/87
[2019-05-26 08:00] VITALS: BP 100/57
[2019-05-26] MEDS: ASPIRIN 81 MG TAB.CHEW GT SCH (09:00)
[2019-05-26] MEDS: METOPROLOL TARTRATE 50 MG TABLET GT SCH ×2 (09:00→21:04)
[2019-05-26] MEDS: AMLODIPINE 10 MG TABLET GT SCH (09:00)
[2019-05-26] MEDS: ASCORBIC ACID 500 MG TABLET GT SCH ×2 (09:00→21:05)
[2019-05-26] MEDS: Z GUARD REMEDY PASTE 57 GM TUBE TOP SCH ×2 (09:00→21:05)
[2019-05-26] MEDS: LISINOPRIL 10 MG TABLET GT SCH (09:00)
[2019-05-26] MEDS: LEVETIRACETAM 500 MG/5 ML LIQUID UDC GT SCH ×2 (09:00→21:04)
[2019-05-26] MEDS: VITAMINS A AND D OINT TP SCH ×2 (09:00→21:05)
[2019-05-26] MEDS: PHENOBARBITAL 30 MG/7.5 ML LIQUID UDC GT SCH ×2 (09:00→21:04)
[2019-05-26] MEDS: DIAZEPAM 10 MG TABLET GT SCH ×2 (09:00→21:05)
[2019-05-26] MEDS: LACOSAMIDE 100 MG/10 ML UDC GT SCH ×2 (09:00→21:05)
[2019-05-26] MEDS: HYDROGEN PEROXIDE 3% 118 ML BOTTLE TP SCH ×2 (09:45→20:41)
[2019-05-26] MEDS: VITAL AF 1.2 1,000 ML LIQUID GT PRN ×2 (17:15)
[2019-05-26 20:02] VITALS: BP 127/73
[2019-05-26] MEDS: MULTIVIT, IRON, MIN NO. 8, FA TABLET GT SCH (21:05)
[2019-05-27 08:00] VITALS: BP 115/68
[2019-05-27] MEDS: ASPIRIN 81 MG TAB.CHEW GT SCH (08:00)
[2019-05-27] MEDS: LEVETIRACETAM 500 MG/5 ML LIQUID UDC GT SCH ×2 (08:03→20:56)
[2019-05-27] MEDS: METOPROLOL TARTRATE 50 MG TABLET GT SCH ×2 (08:05→20:57)
[2019-05-27] MEDS: PHENOBARBITAL 30 MG/7.5 ML LIQUID UDC GT SCH ×2 (08:05→20:57)
[2019-05-27] MEDS: AMLODIPINE 10 MG TABLET GT SCH (08:05)
[2019-05-27] MEDS: LISINOPRIL 10 MG TABLET GT SCH (08:05)
[2019-05-27] MEDS: DIAZEPAM 10 MG TABLET GT SCH ×2 (08:06→20:57)
[2019-05-27] MEDS: LACOSAMIDE 100 MG/10 ML UDC GT SCH ×2 (08:06→20:57)
[2019-05-27] MEDS: VITAMINS A AND D OINT TP SCH ×2 (08:06→20:58)
[2019-05-27] MEDS: HYDROGEN PEROXIDE 3% 118 ML BOTTLE TP SCH ×2 (08:06→10:01)
[2019-05-27] MEDS: ASCORBIC ACID 500 MG TABLET GT SCH ×2 (08:06→20:58)
[2019-05-27] MEDS: Z GUARD REMEDY PASTE 57 GM TUBE TOP SCH ×2 (08:06→20:58)
[2019-05-27 20:00] VITALS: BP 141/106
[2019-05-27] MEDS: MULTIVIT, IRON, MIN NO. 8, FA TABLET GT SCH (20:57)
[2019-05-28] MEDS: VITAL AF 1.2 1,000 ML LIQUID GT PRN ×2 (02:00→21:05)
[2019-05-28 08:00] VITALS: BP 117/60
[2019-05-28] MEDS: ASPIRIN 81 MG TAB.CHEW GT SCH (08:11)
[2019-05-28] MEDS: LEVETIRACETAM 500 MG/5 ML LIQUID UDC GT SCH ×2 (08:11→21:04)
[2019-05-28] MEDS: AMLODIPINE 10 MG TABLET GT SCH (08:12)
[2019-05-28] MEDS: PHENOBARBITAL 30 MG/7.5 ML LIQUID UDC GT SCH ×2 (08:12→21:04)
[2019-05-28] MEDS: LISINOPRIL 10 MG TABLET GT SCH (08:12)
[2019-05-28] MEDS: METOPROLOL TARTRATE 50 MG TABLET GT SCH ×2 (08:12→21:04)
[2019-05-28] MEDS: LACOSAMIDE 100 MG/10 ML UDC GT SCH ×2 (08:13→21:04)
[2019-05-28] MEDS: DIAZEPAM 10 MG TABLET GT SCH ×2 (08:13→21:04)
[2019-05-28] MEDS: VITAMINS A AND D OINT TP SCH ×2 (08:13→21:04)
[2019-05-28] MEDS: ASCORBIC ACID 500 MG TABLET GT SCH ×2 (08:13→21:04)
[2019-05-28] MEDS: Z GUARD REMEDY PASTE 57 GM TUBE TOP SCH ×2 (08:13→21:04)
[2019-05-28] MEDS: HYDROGEN PEROXIDE 3% 118 ML BOTTLE TP SCH ×2 (08:29→21:01)
[2019-05-28 20:56] VITALS: BP 128/90
[2019-05-28] MEDS: MULTIVIT, IRON, MIN NO. 8, FA TABLET GT SCH (21:04)
[2019-05-29 08:00] VITALS: BP 109/95
[2019-05-29] MEDS: LEVETIRACETAM 500 MG/5 ML LIQUID UDC GT SCH ×2 (08:30→21:00)
[2019-05-29] MEDS: ASPIRIN 81 MG TAB.CHEW GT SCH (08:30)
[2019-05-29] MEDS: METOPROLOL TARTRATE 50 MG TABLET GT SCH ×2 (08:30→21:00)
[2019-05-29] MEDS: AMLODIPINE 10 MG TABLET GT SCH (08:31)
[2019-05-29] MEDS: DIAZEPAM 10 MG TABLET GT SCH ×2 (08:31→21:00)
[2019-05-29] MEDS: LACOSAMIDE 100 MG/10 ML UDC GT SCH ×2 (08:31→21:00)
[2019-05-29] MEDS: VITAMINS A AND D OINT TP SCH ×2 (08:31→21:00)
[2019-05-29] MEDS: LISINOPRIL 10 MG TABLET GT SCH (08:31)
[2019-05-29] MEDS: ASCORBIC ACID 500 MG TABLET GT SCH ×2 (08:31→21:00)
[2019-05-29] MEDS: Z GUARD REMEDY PASTE 57 GM TUBE TOP SCH ×2 (08:31→21:00)
[2019-05-29] MEDS: PHENOBARBITAL 30 MG/7.5 ML LIQUID UDC GT SCH ×2 (08:31→21:00)
[2019-05-29] MEDS: HYDROGEN PEROXIDE 3% 118 ML BOTTLE TP SCH ×2 (09:00→21:36)
[2019-05-29 20:08] VITALS: BP 132/80
[2019-05-29] MEDS: MULTIVIT, IRON, MIN NO. 8, FA TABLET GT SCH (21:00)
[2019-05-30] MEDS: VITAL AF 1.2 1,000 ML LIQUID GT PRN (07:23)
[2019-05-30 07:55] VITALS: BP 112/61
[2019-05-30] MEDS: HYDROGEN PEROXIDE 3% 118 ML BOTTLE TP SCH ×2 (07:55→21:03)
[2019-05-30] MEDS: HYDROGEN PEROXIDE 3% 118 ML BOTTLE TP PRN (07:56)
[2019-05-30] MEDS: METOPROLOL TARTRATE 50 MG TABLET GT SCH ×2 (08:11→21:34)
[2019-05-30] MEDS: LISINOPRIL 10 MG TABLET GT SCH (08:11)
[2019-05-30] MEDS: ASPIRIN 81 MG TAB.CHEW GT SCH (08:11)
[2019-05-30] MEDS: AMLODIPINE 10 MG TABLET GT SCH (08:11)
[2019-05-30] MEDS: PHENOBARBITAL 30 MG/7.5 ML LIQUID UDC GT SCH ×2 (08:11→21:34)
[2019-05-30] MEDS: LEVETIRACETAM 500 MG/5 ML LIQUID UDC GT SCH ×2 (08:11→21:33)
[2019-05-30] MEDS: ASCORBIC ACID 500 MG TABLET GT SCH ×2 (08:12→21:34)
[2019-05-30] MEDS: DIAZEPAM 10 MG TABLET GT SCH ×2 (08:12→21:34)
[2019-05-30] MEDS: LACOSAMIDE 100 MG/10 ML UDC GT SCH ×2 (08:12→21:34)
[2019-05-30] MEDS: VITAMINS A AND D OINT TP SCH ×2 (08:12→21:35)
[2019-05-30] MEDS: Z GUARD REMEDY PASTE 57 GM TUBE TOP SCH ×2 (08:12→21:34)
[2019-05-30 20:40] VITALS: BP 148/98
[2019-05-30] MEDS: MULTIVIT, IRON, MIN NO. 8, FA TABLET GT SCH (21:34)
[2019-05-31] MEDS: VITAL AF 1.2 1,000 ML LIQUID GT PRN ×2 (02:06→16:56)
[2019-05-31 08:00] VITALS: BP 138/83
[2019-05-31] MEDS: ASPIRIN 81 MG TAB.CHEW GT SCH (08:04)
[2019-05-31] MEDS: LEVETIRACETAM 500 MG/5 ML LIQUID UDC GT SCH ×2 (08:04→21:58)
[2019-05-31] MEDS: METOPROLOL TARTRATE 50 MG TABLET GT SCH ×2 (08:05→21:59)
[2019-05-31] MEDS: VITAMINS A AND D OINT TP SCH ×2 (08:05→21:59)
[2019-05-31] MEDS: Z GUARD REMEDY PASTE 57 GM TUBE TOP SCH ×2 (08:05→21:59)
[2019-05-31] MEDS: LISINOPRIL 10 MG TABLET GT SCH (08:05)
[2019-05-31] MEDS: LACOSAMIDE 100 MG/10 ML UDC GT SCH ×2 (08:05→21:54)
[2019-05-31] MEDS: ASCORBIC ACID 500 MG TABLET GT SCH ×2 (08:05→21:58)
[2019-05-31] MEDS: PHENOBARBITAL 30 MG/7.5 ML LIQUID UDC GT SCH ×2 (08:05→21:53)
[2019-05-31] MEDS: AMLODIPINE 10 MG TABLET GT SCH (08:05)
[2019-05-31] MEDS: DIAZEPAM 10 MG TABLET GT SCH ×2 (08:05→21:53)
[2019-05-31] MEDS: HYDROGEN PEROXIDE 3% 118 ML BOTTLE TP SCH ×2 (08:33→20:55)
[2019-05-31 21:46] VITALS: BP 148/90
[2019-05-31] MEDS: MULTIVIT, IRON, MIN NO. 8, FA TABLET GT SCH (21:53)
[2019-06-01 08:00] VITALS: BP 105/60
[2019-06-01] MEDS: LISINOPRIL 10 MG TABLET GT SCH (08:04)
[2019-06-01] MEDS: AMLODIPINE 10 MG TABLET GT SCH (08:04)
[2019-06-01] MEDS: METOPROLOL TARTRATE 50 MG TABLET GT SCH ×2 (08:04→20:09)
[2019-06-01] MEDS: PHENOBARBITAL 30 MG/7.5 ML LIQUID UDC GT SCH ×2 (08:04→20:09)
[2019-06-01] MEDS: ASPIRIN 81 MG TAB.CHEW GT SCH (08:04)
[2019-06-01] MEDS: DIAZEPAM 10 MG TABLET GT SCH ×2 (08:05→20:10)
[2019-06-01] MEDS: ASCORBIC ACID 500 MG TABLET GT SCH ×2 (08:05→20:10)
[2019-06-01] MEDS: LACOSAMIDE 100 MG/10 ML UDC GT SCH ×2 (08:05→20:10)
[2019-06-01] MEDS: VITAMINS A AND D OINT TP SCH ×2 (08:05→20:10)
[2019-06-01] MEDS: Z GUARD REMEDY PASTE 57 GM TUBE TOP SCH ×2 (08:05→20:10)
[2019-06-01] MEDS: HYDROGEN PEROXIDE 3% 118 ML BOTTLE TP SCH ×2 (08:29→21:34)
[2019-06-01] MEDS: LEVETIRACETAM 500 MG/5 ML LIQUID UDC GT SCH ×2 (08:56→20:08)
[2019-06-01] MEDS: VITAL AF 1.2 1,000 ML LIQUID GT PRN (10:32)
[2019-06-01] MEDS: MULTIVIT, IRON, MIN NO. 8, FA TABLET GT SCH (20:10)
[2019-06-01 20:36] VITALS: BP 125/77
[2019-06-02] MEDS: VITAL AF 1.2 1,000 ML LIQUID GT PRN ×2 (01:57→17:54)
[2019-06-02 08:00] VITALS: BP 115/58
[2019-06-02] MEDS: METOPROLOL TARTRATE 50 MG TABLET GT SCH ×2 (09:00→21:30)
[2019-06-02] MEDS: AMLODIPINE 10 MG TABLET GT SCH (09:00)
[2019-06-02] MEDS: LISINOPRIL 10 MG TABLET GT SCH (09:00)
[2019-06-02] MEDS: HYDROGEN PEROXIDE 3% 118 ML BOTTLE TP SCH ×2 (09:12→20:48)
[2019-06-02] MEDS: ASPIRIN 81 MG TAB.CHEW GT SCH (09:15)
[2019-06-02] MEDS: LEVETIRACETAM 500 MG/5 ML LIQUID UDC GT SCH ×2 (09:15→21:29)
[2019-06-02] MEDS: DIAZEPAM 10 MG TABLET GT SCH ×2 (09:18→21:30)
[2019-06-02] MEDS: PHENOBARBITAL 30 MG/7.5 ML LIQUID UDC GT SCH ×2 (09:18→21:30)
[2019-06-02] MEDS: LACOSAMIDE 100 MG/10 ML UDC GT SCH ×2 (09:19→21:30)
[2019-06-02] MEDS: Z GUARD REMEDY PASTE 57 GM TUBE TOP SCH ×2 (09:19→21:30)
[2019-06-02] MEDS: ASCORBIC ACID 500 MG TABLET GT SCH ×2 (09:19→21:30)
[2019-06-02] MEDS: VITAMINS A AND D OINT TP SCH ×2 (09:30→21:30)
[2019-06-02 20:00] VITALS: BP 139/95
[2019-06-02] MEDS: MULTIVIT, IRON, MIN NO. 8, FA TABLET GT SCH (21:30)
[2019-06-03 08:00] VITALS: BP 127/76
[2019-06-03] MEDS: HYDROGEN PEROXIDE 3% 118 ML BOTTLE TP SCH ×2 (08:19→20:25)
[2019-06-03] MEDS: LEVETIRACETAM 500 MG/5 ML LIQUID UDC GT SCH ×2 (09:11→20:24)
[2019-06-03] MEDS: ASPIRIN 81 MG TAB.CHEW GT SCH (09:11)
[2019-06-03] MEDS: AMLODIPINE 10 MG TABLET GT SCH (09:12)
[2019-06-03] MEDS: METOPROLOL TARTRATE 50 MG TABLET GT SCH ×2 (09:12→20:24)
[2019-06-03] MEDS: ASCORBIC ACID 500 MG TABLET GT SCH ×2 (09:13→20:24)
[2019-06-03] MEDS: LACOSAMIDE 100 MG/10 ML UDC GT SCH ×2 (09:13→20:24)
[2019-06-03] MEDS: VITAMINS A AND D OINT TP SCH ×2 (09:13→20:25)
[2019-06-03] MEDS: Z GUARD REMEDY PASTE 57 GM TUBE TOP SCH ×2 (09:13→20:25)
[2019-06-03] MEDS: DIAZEPAM 10 MG TABLET GT SCH ×2 (09:13→20:24)
[2019-06-03] MEDS: PHENOBARBITAL 30 MG/7.5 ML LIQUID UDC GT SCH ×2 (09:13→20:24)
[2019-06-03] MEDS: LISINOPRIL 10 MG TABLET GT SCH (09:13)
[2019-06-03] MEDS: VITAL AF 1.2 1,000 ML LIQUID GT PRN (12:15)
[2019-06-03 20:00] VITALS: BP 162/88
[2019-06-03] MEDS: MULTIVIT, IRON, MIN NO. 8, FA TABLET GT SCH (20:24)
[2019-06-04] MEDS: VITAL AF 1.2 1,000 ML LIQUID GT PRN (05:55)
[2019-06-04] MEDS: LEVETIRACETAM 500 MG/5 ML LIQUID UDC GT SCH ×2 (08:02→20:20)
[2019-06-04] MEDS: ASPIRIN 81 MG TAB.CHEW GT SCH (08:02)
[2019-06-04] MEDS: METOPROLOL TARTRATE 50 MG TABLET GT SCH ×2 (08:02→20:41)
[2019-06-04] MEDS: AMLODIPINE 10 MG TABLET GT SCH (08:03)
[2019-06-04] MEDS: DIAZEPAM 10 MG TABLET GT SCH ×2 (08:03→20:42)
[2019-06-04] MEDS: PHENOBARBITAL 30 MG/7.5 ML LIQUID UDC GT SCH ×2 (08:03→20:41)
[2019-06-04] MEDS: LISINOPRIL 10 MG TABLET GT SCH (08:03)
[2019-06-04] MEDS: VITAMINS A AND D OINT TP SCH ×2 (08:04→20:28)
[2019-06-04] MEDS: LACOSAMIDE 100 MG/10 ML UDC GT SCH ×2 (08:04→20:42)
[2019-06-04] MEDS: ASCORBIC ACID 500 MG TABLET GT SCH ×2 (08:04→20:26)
[2019-06-04 08:09] VITALS: BP 94/60
[2019-06-04] MEDS: Z GUARD REMEDY PASTE 57 GM TUBE TOP SCH ×2 (09:00→20:27)
[2019-06-04] MEDS: HYDROGEN PEROXIDE 3% 118 ML BOTTLE TP SCH ×2 (09:47→20:28)
[2019-06-04] MEDS: MULTIVIT, IRON, MIN NO. 8, FA TABLET GT SCH (20:25)
[2019-06-05 08:00] VITALS: BP 125/76
[2019-06-05] MEDS: HYDROGEN PEROXIDE 3% 118 ML BOTTLE TP SCH ×2 (09:00→21:22)
[2019-06-05] MEDS: ASPIRIN 81 MG TAB.CHEW GT SCH (09:27)
[2019-06-05] MEDS: LEVETIRACETAM 500 MG/5 ML LIQUID UDC GT SCH ×2 (09:27→21:00)
[2019-06-05] MEDS: AMLODIPINE 10 MG TABLET GT SCH (09:29)
[2019-06-05] MEDS: PHENOBARBITAL 30 MG/7.5 ML LIQUID UDC GT SCH ×2 (09:29→21:00)
[2019-06-05] MEDS: METOPROLOL TARTRATE 50 MG TABLET GT SCH ×2 (09:29→21:00)
[2019-06-05] MEDS: Z GUARD REMEDY PASTE 57 GM TUBE TOP SCH ×2 (09:30→21:00)
[2019-06-05] MEDS: LACOSAMIDE 100 MG/10 ML UDC GT SCH ×2 (09:30→21:00)
[2019-06-05] MEDS: VITAMINS A AND D OINT TP SCH ×2 (09:30→21:00)
[2019-06-05] MEDS: ASCORBIC ACID 500 MG TABLET GT SCH ×2 (09:30→21:00)
[2019-06-05] MEDS: DIAZEPAM 10 MG TABLET GT SCH ×2 (09:30→21:00)
[2019-06-05] MEDS: LISINOPRIL 10 MG TABLET GT SCH (09:30)
[2019-06-05] MEDS: VITAL AF 1.2 1,000 ML LIQUID GT PRN (18:06)
[2019-06-05] MEDS: MULTIVIT, IRON, MIN NO. 8, FA TABLET GT SCH (21:00)
[2019-06-05 21:20] VITALS: BP 116/70
[2019-06-06] MEDS: HYDROGEN PEROXIDE 3% 118 ML BOTTLE TP SCH ×2 (08:06→21:33)
[2019-06-06] MEDS: ASPIRIN 81 MG TAB.CHEW GT SCH (09:53)
[2019-06-06] MEDS: ASCORBIC ACID 500 MG TABLET GT SCH ×2 (09:54→21:53)
[2019-06-06] MEDS: LACOSAMIDE 100 MG/10 ML UDC GT SCH ×2 (09:54→21:52)
[2019-06-06] MEDS: DIAZEPAM 10 MG TABLET GT SCH ×2 (09:54→21:52)
[2019-06-06] MEDS: LEVETIRACETAM 500 MG/5 ML LIQUID UDC GT SCH ×2 (09:54→21:51)
[2019-06-06] MEDS: Z GUARD REMEDY PASTE 57 GM TUBE TOP SCH ×2 (09:55→21:53)
[2019-06-06] MEDS: VITAMINS A AND D OINT TP SCH ×2 (09:55→21:53)
[2019-06-06] MEDS: METOPROLOL TARTRATE 50 MG TABLET GT SCH ×2 (09:59→21:52)
[2019-06-06] MEDS: PHENOBARBITAL 30 MG/7.5 ML LIQUID UDC GT SCH ×2 (09:59→21:52)
[2019-06-06] MEDS: AMLODIPINE 10 MG TABLET GT SCH (09:59)
[2019-06-06] MEDS: LISINOPRIL 10 MG TABLET GT SCH (09:59)
[2019-06-06] MEDS: VITAL AF 1.2 1,000 ML LIQUID GT PRN (13:19)
[2019-06-06] MEDS: MULTIVIT, IRON, MIN NO. 8, FA TABLET GT SCH (21:53)
[2019-06-06 22:00] VITALS: BP 128/68
[2019-06-07] MEDS: VITAL AF 1.2 1,000 ML LIQUID GT PRN (04:16)
[2019-06-07] MEDS: HYDROGEN PEROXIDE 3% 118 ML BOTTLE TP SCH ×2 (07:53→21:40)
[2019-06-07 08:07] VITALS: BP 106/71
[2019-06-07] MEDS: ASPIRIN 81 MG TAB.CHEW GT SCH (08:54)
[2019-06-07] MEDS: LEVETIRACETAM 500 MG/5 ML LIQUID UDC GT SCH ×2 (08:54→21:36)
[2019-06-07] MEDS: AMLODIPINE 10 MG TABLET GT SCH (08:55)
[2019-06-07] MEDS: METOPROLOL TARTRATE 50 MG TABLET GT SCH ×2 (08:55→21:36)
[2019-06-07] MEDS: PHENOBARBITAL 30 MG/7.5 ML LIQUID UDC GT SCH ×2 (08:55→21:36)
[2019-06-07] MEDS: LISINOPRIL 10 MG TABLET GT SCH (08:55)
[2019-06-07] MEDS: DIAZEPAM 10 MG TABLET GT SCH ×2 (08:56→21:36)
[2019-06-07] MEDS: Z GUARD REMEDY PASTE 57 GM TUBE TOP SCH ×2 (08:56→21:37)
[2019-06-07] MEDS: LACOSAMIDE 100 MG/10 ML UDC GT SCH ×2 (08:56→21:37)
[2019-06-07] MEDS: VITAMINS A AND D OINT TP SCH ×2 (08:56→21:37)
[2019-06-07] MEDS: ASCORBIC ACID 500 MG TABLET GT SCH ×2 (08:56→21:37)
[2019-06-07 20:00] VITALS: BP 132/75
[2019-06-07] MEDS: MULTIVIT, IRON, MIN NO. 8, FA TABLET GT SCH (21:36)
[2019-06-08] MEDS: VITAL AF 1.2 1,000 ML LIQUID GT PRN ×2 (01:36→17:34)
[2019-06-08 08:00] VITALS: BP 134/74
[2019-06-08] MEDS: ASPIRIN 81 MG TAB.CHEW GT SCH (08:13)
[2019-06-08] MEDS: LEVETIRACETAM 500 MG/5 ML LIQUID UDC GT SCH ×2 (08:13→21:03)
[2019-06-08] MEDS: DIAZEPAM 10 MG TABLET GT SCH ×2 (08:15→21:05)
[2019-06-08] MEDS: PHENOBARBITAL 30 MG/7.5 ML LIQUID UDC GT SCH ×2 (08:15→21:05)
[2019-06-08] MEDS: LACOSAMIDE 100 MG/10 ML UDC GT SCH ×2 (08:15→21:05)
[2019-06-08] MEDS: ASCORBIC ACID 500 MG TABLET GT SCH ×2 (08:15→21:05)
[2019-06-08] MEDS: Z GUARD REMEDY PASTE 57 GM TUBE TOP SCH ×2 (08:16→21:05)
[2019-06-08] MEDS: AMLODIPINE 10 MG TABLET GT SCH (08:16)
[2019-06-08] MEDS: VITAMINS A AND D OINT TP SCH ×2 (08:16→21:05)
[2019-06-08] MEDS: LISINOPRIL 10 MG TABLET GT SCH (08:16)
[2019-06-08] MEDS: METOPROLOL TARTRATE 50 MG TABLET GT SCH ×2 (08:17→21:05)
[2019-06-08] MEDS: HYDROGEN PEROXIDE 3% 118 ML BOTTLE TP SCH ×2 (09:00→21:29)
[2019-06-08 20:07] VITALS: BP 129/64
[2019-06-08] MEDS: MULTIVIT, IRON, MIN NO. 8, FA TABLET GT SCH (21:05)
[2019-06-09 08:00] VITALS: BP 160/60
[2019-06-09] MEDS: METOPROLOL TARTRATE 50 MG TABLET GT SCH ×2 (08:46→20:21)
[2019-06-09] MEDS: LEVETIRACETAM 500 MG/5 ML LIQUID UDC GT SCH ×2 (08:46→20:20)
[2019-06-09] MEDS: AMLODIPINE 10 MG TABLET GT SCH (08:46)
[2019-06-09] MEDS: ASPIRIN 81 MG TAB.CHEW GT SCH (08:46)
[2019-06-09] MEDS: LISINOPRIL 10 MG TABLET GT SCH (08:47)
[2019-06-09] MEDS: VITAMINS A AND D OINT TP SCH ×2 (08:47→20:21)
[2019-06-09] MEDS: ASCORBIC ACID 500 MG TABLET GT SCH ×2 (08:47→20:21)
[2019-06-09] MEDS: Z GUARD REMEDY PASTE 57 GM TUBE TOP SCH ×2 (08:47→20:21)
[2019-06-09] MEDS: HYDROGEN PEROXIDE 3% 118 ML BOTTLE TP SCH ×2 (09:00→20:54)
[2019-06-09] MEDS: LACOSAMIDE 100 MG/10 ML UDC GT SCH ×2 (09:05→20:21)
[2019-06-09] MEDS: DIAZEPAM 10 MG TABLET GT SCH ×2 (09:05→20:21)
[2019-06-09] MEDS: PHENOBARBITAL 30 MG/7.5 ML LIQUID UDC GT SCH ×2 (09:05→20:21)
[2019-06-09] MEDS: VITAL AF 1.2 1,000 ML LIQUID GT PRN (15:00)
[2019-06-09 19:52] VITALS: BP 118/80
[2019-06-09] MEDS: MULTIVIT, IRON, MIN NO. 8, FA TABLET GT SCH (20:21)
[2019-06-10] MEDS: VITAL AF 1.2 1,000 ML LIQUID GT PRN (04:56)
[2019-06-10 08:00] VITALS: BP 108/63
[2019-06-10] MEDS: ASPIRIN 81 MG TAB.CHEW GT SCH (08:16)
[2019-06-10] MEDS: LEVETIRACETAM 500 MG/5 ML LIQUID UDC GT SCH ×2 (08:16→21:50)
[2019-06-10] MEDS: METOPROLOL TARTRATE 50 MG TABLET GT SCH ×2 (08:17→21:51)
[2019-06-10] MEDS: AMLODIPINE 10 MG TABLET GT SCH (08:17)
[2019-06-10] MEDS: PHENOBARBITAL 30 MG/7.5 ML LIQUID UDC GT SCH ×2 (08:17→21:51)
[2019-06-10] MEDS: DIAZEPAM 10 MG TABLET GT SCH ×2 (08:18→21:52)
[2019-06-10] MEDS: LISINOPRIL 10 MG TABLET GT SCH (08:18)
[2019-06-10] MEDS: LACOSAMIDE 100 MG/10 ML UDC GT SCH ×2 (08:18→21:52)
[2019-06-10] MEDS: ASCORBIC ACID 500 MG TABLET GT SCH ×2 (08:18→21:52)
[2019-06-10] MEDS: Z GUARD REMEDY PASTE 57 GM TUBE TOP SCH ×2 (08:19→21:52)
[2019-06-10] MEDS: VITAMINS A AND D OINT TP SCH ×2 (08:20→21:52)
[2019-06-10] MEDS: HYDROGEN PEROXIDE 3% 118 ML BOTTLE TP SCH ×2 (09:54→20:59)
[2019-06-10 20:04] VITALS: BP 135/85
[2019-06-10] MEDS: MULTIVIT, IRON, MIN NO. 8, FA TABLET GT SCH (21:51)
[2019-06-11] MEDS: VITAL AF 1.2 1,000 ML LIQUID GT PRN ×2 (00:02→21:30)
[2019-06-11 08:00] VITALS: BP 123/72
[2019-06-11] MEDS: LISINOPRIL 10 MG TABLET GT SCH (09:00)
[2019-06-11] MEDS: VITAMINS A AND D OINT TP SCH ×2 (09:00→21:28)
[2019-06-11] MEDS: DIAZEPAM 10 MG TABLET GT SCH ×2 (09:00→21:28)
[2019-06-11] MEDS: LEVETIRACETAM 500 MG/5 ML LIQUID UDC GT SCH ×2 (09:00→21:27)
[2019-06-11] MEDS: AMLODIPINE 10 MG TABLET GT SCH (09:00)
[2019-06-11] MEDS: ASPIRIN 81 MG TAB.CHEW GT SCH (09:00)
[2019-06-11] MEDS: LACOSAMIDE 100 MG/10 ML UDC GT SCH ×2 (09:00→21:28)
[2019-06-11] MEDS: PHENOBARBITAL 30 MG/7.5 ML LIQUID UDC GT SCH ×2 (09:00→21:28)
[2019-06-11] MEDS: Z GUARD REMEDY PASTE 57 GM TUBE TOP SCH ×2 (09:00→21:28)
[2019-06-11] MEDS: METOPROLOL TARTRATE 50 MG TABLET GT SCH ×2 (09:00→21:28)
[2019-06-11] MEDS: ASCORBIC ACID 500 MG TABLET GT SCH ×2 (09:00→21:28)
[2019-06-11] MEDS: HYDROGEN PEROXIDE 3% 118 ML BOTTLE TP SCH ×2 (09:04→20:46)
[2019-06-11 20:13] VITALS: BP 141/89
[2019-06-11] MEDS: MULTIVIT, IRON, MIN NO. 8, FA TABLET GT SCH (21:28)
[2019-06-12 08:00] VITALS: BP 123/69
[2019-06-12] MEDS: LEVETIRACETAM 500 MG/5 ML LIQUID UDC GT SCH ×2 (09:23→21:11)
[2019-06-12] MEDS: METOPROLOL TARTRATE 50 MG TABLET GT SCH ×2 (09:24→21:12)
[2019-06-12] MEDS: AMLODIPINE 10 MG TABLET GT SCH (09:25)
[2019-06-12] MEDS: LISINOPRIL 10 MG TABLET GT SCH (09:26)
[2019-06-12] MEDS: Z GUARD REMEDY PASTE 57 GM TUBE TOP SCH ×2 (09:27→21:16)
[2019-06-12] MEDS: ASCORBIC ACID 500 MG TABLET GT SCH ×2 (09:27→21:16)
[2019-06-12] MEDS: HYDROGEN PEROXIDE 3% 118 ML BOTTLE TP SCH ×2 (09:28→21:22)
[2019-06-12] MEDS: VITAMINS A AND D OINT TP SCH ×2 (09:28→21:16)
[2019-06-12] MEDS: LACOSAMIDE 100 MG/10 ML UDC GT SCH ×2 (09:29→21:16)
[2019-06-12] MEDS: ASPIRIN 81 MG TAB.CHEW GT SCH (09:29)
[2019-06-12] MEDS: DIAZEPAM 10 MG TABLET GT SCH ×2 (09:29→21:16)
[2019-06-12] MEDS: PHENOBARBITAL 30 MG/7.5 ML LIQUID UDC GT SCH ×2 (09:30→21:15)
[2019-06-12] MEDS: VITAL AF 1.2 1,000 ML LIQUID GT PRN (14:30)
[2019-06-12 21:06] VITALS: BP 132/87
[2019-06-12] MEDS: MULTIVIT, IRON, MIN NO. 8, FA TABLET GT SCH (21:15)
[2019-06-13] MEDS: VITAL AF 1.2 1,000 ML LIQUID GT PRN ×2 (05:16→23:08)
[2019-06-13 08:06] VITALS: BP 91/61
[2019-06-13] MEDS: LEVETIRACETAM 500 MG/5 ML LIQUID UDC GT SCH ×2 (08:13→21:06)
[2019-06-13] MEDS: ASPIRIN 81 MG TAB.CHEW GT SCH (08:13)
[2019-06-13] MEDS: METOPROLOL TARTRATE 50 MG TABLET GT SCH ×2 (08:13→21:06)
[2019-06-13] MEDS: Z GUARD REMEDY PASTE 57 GM TUBE TOP SCH ×2 (08:14→21:07)
[2019-06-13] MEDS: VITAMINS A AND D OINT TP SCH ×2 (08:14→21:07)
[2019-06-13] MEDS: AMLODIPINE 10 MG TABLET GT SCH (08:14)
[2019-06-13] MEDS: LACOSAMIDE 100 MG/10 ML UDC GT SCH ×2 (08:14→21:07)
[2019-06-13] MEDS: ASCORBIC ACID 500 MG TABLET GT SCH ×2 (08:14→21:07)
[2019-06-13] MEDS: PHENOBARBITAL 30 MG/7.5 ML LIQUID UDC GT SCH ×2 (08:14→21:06)
[2019-06-13] MEDS: LISINOPRIL 10 MG TABLET GT SCH (08:14)
[2019-06-13] MEDS: DIAZEPAM 10 MG TABLET GT SCH ×2 (08:14→21:07)
[2019-06-13] MEDS: HYDROGEN PEROXIDE 3% 118 ML BOTTLE TP SCH ×2 (08:23→21:42)
[2019-06-13 20:59] VITALS: BP 125/83
[2019-06-13] MEDS: MULTIVIT, IRON, MIN NO. 8, FA TABLET GT SCH (21:07)
[2019-06-14 08:06] VITALS: BP 139/84
[2019-06-14] MEDS: METOPROLOL TARTRATE 50 MG TABLET GT SCH ×2 (08:56→21:49)
[2019-06-14] MEDS: ASPIRIN 81 MG TAB.CHEW GT SCH (08:56)
[2019-06-14] MEDS: LEVETIRACETAM 500 MG/5 ML LIQUID UDC GT SCH ×2 (08:56→21:48)
[2019-06-14] MEDS: LACOSAMIDE 100 MG/10 ML UDC GT SCH ×2 (08:57→21:49)
[2019-06-14] MEDS: ASCORBIC ACID 500 MG TABLET GT SCH ×2 (08:57→21:49)
[2019-06-14] MEDS: Z GUARD REMEDY PASTE 57 GM TUBE TOP SCH ×2 (08:57→21:49)
[2019-06-14] MEDS: PHENOBARBITAL 30 MG/7.5 ML LIQUID UDC GT SCH ×2 (08:57→21:49)
[2019-06-14] MEDS: LISINOPRIL 10 MG TABLET GT SCH (08:57)
[2019-06-14] MEDS: AMLODIPINE 10 MG TABLET GT SCH (08:57)
[2019-06-14] MEDS: DIAZEPAM 10 MG TABLET GT SCH ×2 (08:57→21:49)
[2019-06-14] MEDS: VITAMINS A AND D OINT TP SCH ×2 (08:58→21:49)
[2019-06-14] MEDS: HYDROGEN PEROXIDE 3% 118 ML BOTTLE TP SCH ×2 (09:00→20:36)
[2019-06-14] MEDS: VITAL AF 1.2 1,000 ML LIQUID GT PRN (17:38)
[2019-06-14 20:04] VITALS: BP 139/90
[2019-06-14] MEDS: MULTIVIT, IRON, MIN NO. 8, FA TABLET GT SCH (21:49)
[2019-06-15 08:00] VITALS: BP 115/66
[2019-06-15] MEDS: LEVETIRACETAM 500 MG/5 ML LIQUID UDC GT SCH ×2 (08:42→21:44)
[2019-06-15] MEDS: ASPIRIN 81 MG TAB.CHEW GT SCH (08:42)
[2019-06-15] MEDS: PHENOBARBITAL 30 MG/7.5 ML LIQUID UDC GT SCH ×2 (08:44→21:45)
[2019-06-15] MEDS: AMLODIPINE 10 MG TABLET GT SCH (08:44)
[2019-06-15] MEDS: METOPROLOL TARTRATE 50 MG TABLET GT SCH ×2 (08:44→21:45)
[2019-06-15] MEDS: LACOSAMIDE 100 MG/10 ML UDC GT SCH ×2 (08:45→21:45)
[2019-06-15] MEDS: LISINOPRIL 10 MG TABLET GT SCH (08:45)
[2019-06-15] MEDS: DIAZEPAM 10 MG TABLET GT SCH ×2 (08:45→21:45)
[2019-06-15] MEDS: ASCORBIC ACID 500 MG TABLET GT SCH ×2 (08:46→21:45)
[2019-06-15] MEDS: VITAMINS A AND D OINT TP SCH ×2 (08:46→21:45)
[2019-06-15] MEDS: Z GUARD REMEDY PASTE 57 GM TUBE TOP SCH ×2 (08:46→21:45)
[2019-06-15] MEDS: HYDROGEN PEROXIDE 3% 118 ML BOTTLE TP SCH ×2 (09:09→21:14)
[2019-06-15] MEDS: VITAL AF 1.2 1,000 ML LIQUID GT PRN (14:44)
[2019-06-15 19:58] VITALS: BP 143/91
[2019-06-15] MEDS: MULTIVIT, IRON, MIN NO. 8, FA TABLET GT SCH (21:45)
[2019-06-16] MEDS: VITAL AF 1.2 1,000 ML LIQUID GT PRN ×2 (01:58→21:00)
[2019-06-16 08:00] VITALS: BP 116/69
[2019-06-16] MEDS: HYDROGEN PEROXIDE 3% 118 ML BOTTLE TP SCH ×2 (08:54→20:31)
[2019-06-16] MEDS: AMLODIPINE 10 MG TABLET GT SCH (09:00)
[2019-06-16] MEDS: METOPROLOL TARTRATE 50 MG TABLET GT SCH ×2 (09:00→21:03)
[2019-06-16] MEDS: LISINOPRIL 10 MG TABLET GT SCH (09:00)
[2019-06-16] MEDS: ASPIRIN 81 MG TAB.CHEW GT SCH (09:32)
[2019-06-16] MEDS: LEVETIRACETAM 500 MG/5 ML LIQUID UDC GT SCH ×2 (09:32→21:02)
[2019-06-16] MEDS: DIAZEPAM 10 MG TABLET GT SCH ×2 (09:32→21:03)
[2019-06-16] MEDS: PHENOBARBITAL 30 MG/7.5 ML LIQUID UDC GT SCH ×2 (09:32→21:03)
[2019-06-16] MEDS: LACOSAMIDE 100 MG/10 ML UDC GT SCH ×2 (09:33→21:03)
[2019-06-16] MEDS: ASCORBIC ACID 500 MG TABLET GT SCH ×2 (09:33→21:03)
[2019-06-16] MEDS: Z GUARD REMEDY PASTE 57 GM TUBE TOP SCH ×2 (09:33→21:04)
[2019-06-16] MEDS: VITAMINS A AND D OINT TP SCH ×2 (09:33→21:04)
[2019-06-16 20:20] VITALS: BP 136/84
[2019-06-16] MEDS: MULTIVIT, IRON, MIN NO. 8, FA TABLET GT SCH (21:03)
[2019-06-17] MEDS: HYDROGEN PEROXIDE 3% 118 ML BOTTLE TP SCH ×2 (08:11→21:20)
[2019-06-17] MEDS: ASPIRIN 81 MG TAB.CHEW GT SCH (08:27)
[2019-06-17] MEDS: LEVETIRACETAM 500 MG/5 ML LIQUID UDC GT SCH ×2 (08:27→20:53)
[2019-06-17] MEDS: METOPROLOL TARTRATE 50 MG TABLET GT SCH ×2 (08:28→20:55)
[2019-06-17] MEDS: AMLODIPINE 10 MG TABLET GT SCH (08:28)
[2019-06-17] MEDS: LISINOPRIL 10 MG TABLET GT SCH (08:29)
[2019-06-17] MEDS: PHENOBARBITAL 30 MG/7.5 ML LIQUID UDC GT SCH ×2 (08:29→20:48)
[2019-06-17] MEDS: DIAZEPAM 10 MG TABLET GT SCH ×2 (08:29→20:48)
[2019-06-17] MEDS: LACOSAMIDE 100 MG/10 ML UDC GT SCH ×2 (08:30→20:48)
[2019-06-17] MEDS: Z GUARD REMEDY PASTE 57 GM TUBE TOP SCH ×2 (08:30→20:53)
[2019-06-17] MEDS: VITAMINS A AND D OINT TP SCH ×2 (08:30→20:53)
[2019-06-17] MEDS: ASCORBIC ACID 500 MG TABLET GT SCH ×2 (08:30→20:53)
[2019-06-17] MEDS: VITAL AF 1.2 1,000 ML LIQUID GT PRN (14:29)
[2019-06-17] MEDS: MULTIVIT, IRON, MIN NO. 8, FA TABLET GT SCH (20:52)
[2019-06-17 23:34] VITALS: BP 131/79
[2019-06-18 08:00] VITALS: BP 130/78
[2019-06-18] MEDS: ASPIRIN 81 MG TAB.CHEW GT SCH (08:14)
[2019-06-18] MEDS: LEVETIRACETAM 500 MG/5 ML LIQUID UDC GT SCH ×2 (08:15→20:59)
[2019-06-18] MEDS: AMLODIPINE 10 MG TABLET GT SCH (08:18)
[2019-06-18] MEDS: METOPROLOL TARTRATE 50 MG TABLET GT SCH ×2 (08:18→21:01)
[2019-06-18] MEDS: VITAMINS A AND D OINT TP SCH ×2 (08:19→21:03)
[2019-06-18] MEDS: ASCORBIC ACID 500 MG TABLET GT SCH ×2 (08:19→21:02)
[2019-06-18] MEDS: LACOSAMIDE 100 MG/10 ML UDC GT SCH ×2 (08:19→21:02)
[2019-06-18] MEDS: LISINOPRIL 10 MG TABLET GT SCH (08:19)
[2019-06-18] MEDS: PHENOBARBITAL 30 MG/7.5 ML LIQUID UDC GT SCH ×2 (08:19→21:01)
[2019-06-18] MEDS: DIAZEPAM 10 MG TABLET GT SCH ×2 (08:19→21:02)
[2019-06-18] MEDS: Z GUARD REMEDY PASTE 57 GM TUBE TOP SCH ×2 (08:19→21:02)
[2019-06-18] MEDS: HYDROGEN PEROXIDE 3% 118 ML BOTTLE TP SCH ×2 (09:34→20:30)
[2019-06-18] MEDS: VITAL AF 1.2 1,000 ML LIQUID GT PRN (11:41)
[2019-06-18 20:35] VITALS: BP 136/77
[2019-06-18] MEDS: MULTIVIT, IRON, MIN NO. 8, FA TABLET GT SCH (21:01)
[2019-06-19] MEDS: VITAL AF 1.2 1,000 ML LIQUID GT PRN ×2 (03:56→22:49)
[2019-06-19] MEDS: ASPIRIN 81 MG TAB.CHEW GT SCH (08:39)
[2019-06-19] MEDS: LEVETIRACETAM 500 MG/5 ML LIQUID UDC GT SCH ×2 (08:39→20:55)
[2019-06-19] MEDS: AMLODIPINE 10 MG TABLET GT SCH (08:40)
[2019-06-19] MEDS: LISINOPRIL 10 MG TABLET GT SCH (08:40)
[2019-06-19] MEDS: METOPROLOL TARTRATE 50 MG TABLET GT SCH ×2 (08:40→20:56)
[2019-06-19] MEDS: PHENOBARBITAL 30 MG/7.5 ML LIQUID UDC GT SCH ×2 (08:40→20:56)
[2019-06-19] MEDS: LACOSAMIDE 100 MG/10 ML UDC GT SCH ×2 (08:41→20:56)
[2019-06-19] MEDS: ASCORBIC ACID 500 MG TABLET GT SCH ×2 (08:41→20:56)
[2019-06-19] MEDS: DIAZEPAM 10 MG TABLET GT SCH ×2 (08:41→20:56)
[2019-06-19] MEDS: Z GUARD REMEDY PASTE 57 GM TUBE TOP SCH ×2 (08:41→20:56)
[2019-06-19] MEDS: VITAMINS A AND D OINT TP SCH ×2 (08:41→20:56)
[2019-06-19 09:54] VITALS: BP 118/67
[2019-06-19] MEDS: HYDROGEN PEROXIDE 3% 118 ML BOTTLE TP SCH ×2 (10:05→21:09)
[2019-06-19 20:43] VITALS: BP 129/85
[2019-06-19] MEDS: MULTIVIT, IRON, MIN NO. 8, FA TABLET GT SCH (20:56)
[2019-06-20 08:00] VITALS: BP 133/81
[2019-06-20] MEDS: LEVETIRACETAM 500 MG/5 ML LIQUID UDC GT SCH ×2 (08:17→20:20)
[2019-06-20] MEDS: ASPIRIN 81 MG TAB.CHEW GT SCH (08:17)
[2019-06-20] MEDS: METOPROLOL TARTRATE 50 MG TABLET GT SCH ×2 (08:18→20:20)
[2019-06-20] MEDS: LISINOPRIL 10 MG TABLET GT SCH (08:19)
[2019-06-20] MEDS: AMLODIPINE 10 MG TABLET GT SCH (08:19)
[2019-06-20] MEDS: ASCORBIC ACID 500 MG TABLET GT SCH ×2 (08:28→20:20)
[2019-06-20] MEDS: Z GUARD REMEDY PASTE 57 GM TUBE TOP SCH ×2 (08:28→20:20)
[2019-06-20] MEDS: LACOSAMIDE 100 MG/10 ML UDC GT SCH ×2 (08:28→20:20)
[2019-06-20] MEDS: DIAZEPAM 10 MG TABLET GT SCH ×2 (08:28→20:20)
[2019-06-20] MEDS: PHENOBARBITAL 30 MG/7.5 ML LIQUID UDC GT SCH ×2 (08:28→20:20)
[2019-06-20] MEDS: VITAMINS A AND D OINT TP SCH ×2 (08:28→20:20)
[2019-06-20] MEDS: HYDROGEN PEROXIDE 3% 118 ML BOTTLE TP SCH ×2 (10:30→21:49)
[2019-06-20] MEDS: MULTIVIT, IRON, MIN NO. 8, FA TABLET GT SCH (20:20)
[2019-06-20 20:44] VITALS: BP 130/77
[2019-06-20] MEDS: VITAL AF 1.2 1,000 ML LIQUID GT PRN (22:33)
[2019-06-21 08:06] VITALS: BP 94/58
[2019-06-21] MEDS: HYDROGEN PEROXIDE 3% 118 ML BOTTLE TP SCH ×2 (08:15→20:20)
[2019-06-21] MEDS: ASPIRIN 81 MG TAB.CHEW GT SCH (08:30)
[2019-06-21] MEDS: METOPROLOL TARTRATE 50 MG TABLET GT SCH ×2 (08:33→20:19)
[2019-06-21] MEDS: LEVETIRACETAM 500 MG/5 ML LIQUID UDC GT SCH ×2 (08:33→20:19)
[2019-06-21] MEDS: ASCORBIC ACID 500 MG TABLET GT SCH ×2 (08:34→20:19)
[2019-06-21] MEDS: LISINOPRIL 10 MG TABLET GT SCH (08:34)
[2019-06-21] MEDS: AMLODIPINE 10 MG TABLET GT SCH (08:34)
[2019-06-21] MEDS: DIAZEPAM 10 MG TABLET GT SCH ×2 (08:34→20:19)
[2019-06-21] MEDS: PHENOBARBITAL 30 MG/7.5 ML LIQUID UDC GT SCH ×2 (08:34→20:19)
[2019-06-21] MEDS: LACOSAMIDE 100 MG/10 ML UDC GT SCH ×2 (08:34→20:19)
[2019-06-21] MEDS: Z GUARD REMEDY PASTE 57 GM TUBE TOP SCH ×2 (08:35→20:20)
[2019-06-21] MEDS: VITAMINS A AND D OINT TP SCH ×2 (08:35→20:20)
[2019-06-21] MEDS: VITAL AF 1.2 1,000 ML LIQUID GT PRN (15:48)
[2019-06-21] MEDS: MULTIVIT, IRON, MIN NO. 8, FA TABLET GT SCH (20:19)
[2019-06-22 08:00] VITALS: BP 121/69
[2019-06-22] MEDS: ASPIRIN 81 MG TAB.CHEW GT SCH (08:24)
[2019-06-22] MEDS: LEVETIRACETAM 500 MG/5 ML LIQUID UDC GT SCH ×2 (08:25→21:19)
[2019-06-22] MEDS: METOPROLOL TARTRATE 50 MG TABLET GT SCH ×2 (08:27→21:23)
[2019-06-22] MEDS: AMLODIPINE 10 MG TABLET GT SCH (08:27)
[2019-06-22] MEDS: Z GUARD REMEDY PASTE 57 GM TUBE TOP SCH ×2 (08:28→21:22)
[2019-06-22] MEDS: PHENOBARBITAL 30 MG/7.5 ML LIQUID UDC GT SCH ×2 (08:28→21:20)
[2019-06-22] MEDS: LISINOPRIL 10 MG TABLET GT SCH (08:28)
[2019-06-22] MEDS: ASCORBIC ACID 500 MG TABLET GT SCH ×2 (08:28→21:20)
[2019-06-22] MEDS: LACOSAMIDE 100 MG/10 ML UDC GT SCH ×2 (08:28→21:20)
[2019-06-22] MEDS: VITAMINS A AND D OINT TP SCH ×2 (08:28→21:22)
[2019-06-22] MEDS: DIAZEPAM 10 MG TABLET GT SCH ×2 (08:28→21:20)
[2019-06-22] MEDS: HYDROGEN PEROXIDE 3% 118 ML BOTTLE TP SCH ×2 (08:53→21:18)
[2019-06-22] MEDS: VITAL AF 1.2 1,000 ML LIQUID GT PRN (10:32)
[2019-06-22 20:23] VITALS: BP 118/75
[2019-06-22 21:20] VITALS: BP 122/70
[2019-06-22] MEDS: MULTIVIT, IRON, MIN NO. 8, FA TABLET GT SCH (21:20)
[2019-06-23] MEDS: VITAL AF 1.2 1,000 ML LIQUID GT PRN (02:55)
[2019-06-23 08:00] VITALS: BP 108/61
[2019-06-23] MEDS: HYDROGEN PEROXIDE 3% 118 ML BOTTLE TP SCH ×2 (08:00→21:04)
[2019-06-23] MEDS: ASPIRIN 81 MG TAB.CHEW GT SCH (08:25)
[2019-06-23] MEDS: LEVETIRACETAM 500 MG/5 ML LIQUID UDC GT SCH ×2 (08:27→21:47)
[2019-06-23] MEDS: AMLODIPINE 10 MG TABLET GT SCH (08:28)
[2019-06-23] MEDS: LISINOPRIL 10 MG TABLET GT SCH (08:28)
[2019-06-23] MEDS: METOPROLOL TARTRATE 50 MG TABLET GT SCH ×2 (08:28→21:00)
[2019-06-23] MEDS: PHENOBARBITAL 30 MG/7.5 ML LIQUID UDC GT SCH ×2 (08:28→21:47)
[2019-06-23] MEDS: Z GUARD REMEDY PASTE 57 GM TUBE TOP SCH ×2 (08:29→21:48)
[2019-06-23] MEDS: ASCORBIC ACID 500 MG TABLET GT SCH ×2 (08:29→21:48)
[2019-06-23] MEDS: VITAMINS A AND D OINT TP SCH ×2 (08:29→21:48)
[2019-06-23] MEDS: LACOSAMIDE 100 MG/10 ML UDC GT SCH ×2 (08:29→21:48)
[2019-06-23] MEDS: DIAZEPAM 10 MG TABLET GT SCH ×2 (08:29→21:48)
[2019-06-23] MEDS: MULTIVIT, IRON, MIN NO. 8, FA TABLET GT SCH (21:47)
[2019-06-24] MEDS: VITAL AF 1.2 1,000 ML LIQUID GT PRN
[2019-06-24 07:14] LABS: BASOPHILS % (AUTO) 0.4 % (0.0-2.0); EOSINOPHILS # (AUTO) 0.1 K/uL (0.0-0.7); EOSINOPHILS % (AUTO) 2.1 % (0.0-7.0); HEMATOCRIT 36.3 % (31.2-41.9); HEMOGLOBIN 12.1 g/dL (10.9-14.3); LYMPHOCYTES # (AUTO) 0.9 K/uL (20.0-40.0); LYMPHOCYTES % (AUTO) 18.2 % (20.5-51.5); MEAN CORPUSCULAR HEMOGLOBIN 28.9 uug (24.7-32.8); MEAN CORPUSCULAR HGB CONC 33 g/dL (32.3-35.6); MEAN CORPUSCULAR VOLUME 86.6 fL (75.5-95.3); MONOCYTES # (AUTO) 0.4 K/uL (2.0-10.0); MONOCYTES % (AUTO) 6.8 % (0.0-11.0); NEUTROPHILS # (AUTO) 3.8 K/uL (1.8-8.9); NEUTROPHILS % (AUTO) 72.5 % (38.5-71.5); PLATELET COUNT (AUTO) 162 K/uL (179-408); RED BLOOD CELL COUNT(AUTO) 4.19 MIL/uL (3.63-4.92); WHITE BLOOD COUNT (AUTO) 5.2 K/uL (3.8-11.8)
[2019-06-24 07:25] LABS: ALANINE AMINOTRANSFERASE 33 U/L (14-59); ALKALINE PHOSPHATASE 122 U/L (50-136); ASPARTATE AMINOTRANSFERASE 11 U/L (15-37); BILIRUBIN,TOTAL 0.2 mg/dL (0.2-1.0); CARBON DIOXIDE 33 mmol/L (21-32); CHLORIDE 106 mmol/L (98-107); CREATININE 0.3 mg/dL (0.6-1.3); GLUCOSE 113 mg/dL (74-106); MAGNESIUM 1.8 mg/dL (1.8-2.4); PHOSPHOROUS 3.9 mg/dL (2.5-4.9); POTASSIUM 4.1 mmol/L (3.5-5.1); TOTAL PROTEIN, SERUM 6.8 g/dL (6.4-8.2); UREA NITROGEN, BLOOD 19 mg/dL (7-18)
[2019-06-24 08:00] VITALS: BP 125/74
[2019-06-24] MEDS: HYDROGEN PEROXIDE 3% 118 ML BOTTLE TP SCH ×2 (08:01→21:00)
[2019-06-24] MEDS: LEVETIRACETAM 500 MG/5 ML LIQUID UDC GT SCH ×2 (08:48→21:31)
[2019-06-24] MEDS: ASPIRIN 81 MG TAB.CHEW GT SCH (08:48)
[2019-06-24] MEDS: METOPROLOL TARTRATE 50 MG TABLET GT SCH ×2 (08:49→21:32)
[2019-06-24] MEDS: LISINOPRIL 10 MG TABLET GT SCH (08:49)
[2019-06-24] MEDS: LACOSAMIDE 100 MG/10 ML UDC GT SCH ×2 (08:49→21:33)
[2019-06-24] MEDS: PHENOBARBITAL 30 MG/7.5 ML LIQUID UDC GT SCH ×2 (08:49→21:32)
[2019-06-24] MEDS: VITAMINS A AND D OINT TP SCH ×2 (08:49→21:33)
[2019-06-24] MEDS: Z GUARD REMEDY PASTE 57 GM TUBE TOP SCH ×2 (08:49→21:33)
[2019-06-24] MEDS: AMLODIPINE 10 MG TABLET GT SCH (08:49)
[2019-06-24] MEDS: DIAZEPAM 10 MG TABLET GT SCH ×2 (08:49→21:33)
[2019-06-24] MEDS: ASCORBIC ACID 500 MG TABLET GT SCH ×2 (08:49→21:33)
[2019-06-24 20:01] VITALS: BP 143/91
[2019-06-24] MEDS: MULTIVIT, IRON, MIN NO. 8, FA TABLET GT SCH (21:32)
[2019-06-25 08:00] VITALS: BP 109/69
[2019-06-25] MEDS: LISINOPRIL 10 MG TABLET GT SCH (09:00)
[2019-06-25] MEDS: METOPROLOL TARTRATE 50 MG TABLET GT SCH ×2 (09:00→21:39)
[2019-06-25] MEDS: AMLODIPINE 10 MG TABLET GT SCH (09:00)
[2019-06-25] MEDS: LEVETIRACETAM 500 MG/5 ML LIQUID UDC GT SCH ×2 (09:11→21:38)
[2019-06-25] MEDS: ASPIRIN 81 MG TAB.CHEW GT SCH (09:11)
[2019-06-25] MEDS: PHENOBARBITAL 30 MG/7.5 ML LIQUID UDC GT SCH ×2 (09:12→21:39)
[2019-06-25] MEDS: Z GUARD REMEDY PASTE 57 GM TUBE TOP SCH ×2 (09:13→21:39)
[2019-06-25] MEDS: DIAZEPAM 10 MG TABLET GT SCH ×2 (09:13→21:39)
[2019-06-25] MEDS: LACOSAMIDE 100 MG/10 ML UDC GT SCH (09:13)
[2019-06-25] MEDS: VITAMINS A AND D OINT TP SCH ×2 (09:13→21:39)
[2019-06-25] MEDS: ASCORBIC ACID 500 MG TABLET GT SCH ×2 (09:13→21:39)
[2019-06-25] MEDS: HYDROGEN PEROXIDE 3% 118 ML BOTTLE TP SCH ×2 (10:30→21:29)
[2019-06-25 21:26] VITALS: BP 126/83
[2019-06-25] MEDS: MULTIVIT, IRON, MIN NO. 8, FA TABLET GT SCH (21:39)
[2019-06-26] MEDS: VITAL AF 1.2 1,000 ML LIQUID GT PRN (06:00)
[2019-06-26 08:00] VITALS: BP 115/66
[2019-06-26] MEDS: LEVETIRACETAM 500 MG/5 ML LIQUID UDC GT SCH ×2 (08:27→21:14)
[2019-06-26] MEDS: ASPIRIN 81 MG TAB.CHEW GT SCH (08:27)
[2019-06-26] MEDS: METOPROLOL TARTRATE 50 MG TABLET GT SCH ×2 (08:28→21:14)
[2019-06-26] MEDS: VITAMINS A AND D OINT TP SCH ×2 (08:29→21:15)
[2019-06-26] MEDS: PHENOBARBITAL 30 MG/7.5 ML LIQUID UDC GT SCH ×2 (08:29→21:14)
[2019-06-26] MEDS: ASCORBIC ACID 500 MG TABLET GT SCH ×2 (08:29→21:14)
[2019-06-26] MEDS: Z GUARD REMEDY PASTE 57 GM TUBE TOP SCH ×2 (08:29→21:15)
[2019-06-26] MEDS: DIAZEPAM 10 MG TABLET GT SCH ×2 (08:29→21:14)
[2019-06-26] MEDS: LISINOPRIL 10 MG TABLET GT SCH (08:29)
[2019-06-26] MEDS: AMLODIPINE 10 MG TABLET GT SCH (08:29)
[2019-06-26] MEDS: HYDROGEN PEROXIDE 3% 118 ML BOTTLE TP SCH ×2 (10:03→21:10)
[2019-06-26 20:00] VITALS: BP 130/86
[2019-06-26] MEDS: MULTIVIT, IRON, MIN NO. 8, FA TABLET GT SCH (21:14)
[2019-06-27] MEDS: VITAL AF 1.2 1,000 ML LIQUID GT PRN (07:18)
[2019-06-27 08:05] VITALS: BP 116/77
[2019-06-27] MEDS: ASPIRIN 81 MG TAB.CHEW GT SCH (08:41)
[2019-06-27] MEDS: LEVETIRACETAM 500 MG/5 ML LIQUID UDC GT SCH ×2 (08:41→21:20)
[2019-06-27] MEDS: AMLODIPINE 10 MG TABLET GT SCH (08:42)
[2019-06-27] MEDS: METOPROLOL TARTRATE 50 MG TABLET GT SCH ×2 (08:42→21:21)
[2019-06-27] MEDS: ASCORBIC ACID 500 MG TABLET GT SCH ×2 (08:43→21:22)
[2019-06-27] MEDS: PHENOBARBITAL 30 MG/7.5 ML LIQUID UDC GT SCH ×2 (08:43→21:22)
[2019-06-27] MEDS: DIAZEPAM 10 MG TABLET GT SCH ×2 (08:43→21:22)
[2019-06-27] MEDS: LISINOPRIL 10 MG TABLET GT SCH (08:43)
[2019-06-27] MEDS: Z GUARD REMEDY PASTE 57 GM TUBE TOP SCH ×2 (08:44→21:22)
[2019-06-27] MEDS: VITAMINS A AND D OINT TP SCH ×2 (09:00→21:22)
[2019-06-27] MEDS: HYDROGEN PEROXIDE 3% 118 ML BOTTLE TP SCH ×2 (09:07→21:09)
[2019-06-27 20:00] VITALS: BP 120/78
[2019-06-27] MEDS: MULTIVIT, IRON, MIN NO. 8, FA TABLET GT SCH (21:22)
[2019-06-28] MEDS: VITAL AF 1.2 1,000 ML LIQUID GT PRN (01:00)
[2019-06-28 08:06] VITALS: BP 109/74
[2019-06-28] MEDS: LEVETIRACETAM 500 MG/5 ML LIQUID UDC GT SCH ×2 (08:49→21:14)
[2019-06-28] MEDS: ASPIRIN 81 MG TAB.CHEW GT SCH (08:49)
[2019-06-28] MEDS: METOPROLOL TARTRATE 50 MG TABLET GT SCH ×2 (08:50→21:14)
[2019-06-28] MEDS: AMLODIPINE 10 MG TABLET GT SCH (08:51)
[2019-06-28] MEDS: ASCORBIC ACID 500 MG TABLET GT SCH ×2 (08:52→21:14)
[2019-06-28] MEDS: LISINOPRIL 10 MG TABLET GT SCH (08:52)
[2019-06-28] MEDS: PHENOBARBITAL 30 MG/7.5 ML LIQUID UDC GT SCH ×2 (08:52→21:14)
[2019-06-28] MEDS: DIAZEPAM 10 MG TABLET GT SCH ×2 (08:52→21:14)
[2019-06-28] MEDS: Z GUARD REMEDY PASTE 57 GM TUBE TOP SCH ×2 (08:52→21:15)
[2019-06-28] MEDS: VITAMINS A AND D OINT TP SCH ×2 (08:53→21:15)
[2019-06-28] MEDS: HYDROGEN PEROXIDE 3% 118 ML BOTTLE TP SCH ×2 (09:00→21:37)
[2019-06-28 19:54] VITALS: BP 151/81
[2019-06-28] MEDS: MULTIVIT, IRON, MIN NO. 8, FA TABLET GT SCH (21:14)
[2019-06-29] MEDS: VITAL AF 1.2 1,000 ML LIQUID GT PRN ×2 (00:41→23:11)
[2019-06-29 08:00] VITALS: BP 124/72
[2019-06-29] MEDS: PHENOBARBITAL 30 MG/7.5 ML LIQUID UDC GT SCH ×2 (08:31→20:01)
[2019-06-29] MEDS: LISINOPRIL 10 MG TABLET GT SCH (08:31)
[2019-06-29] MEDS: ASPIRIN 81 MG TAB.CHEW GT SCH (08:31)
[2019-06-29] MEDS: AMLODIPINE 10 MG TABLET GT SCH (08:31)
[2019-06-29] MEDS: METOPROLOL TARTRATE 50 MG TABLET GT SCH ×2 (08:31→20:01)
[2019-06-29] MEDS: LEVETIRACETAM 500 MG/5 ML LIQUID UDC GT SCH ×2 (08:31→20:00)
[2019-06-29] MEDS: ASCORBIC ACID 500 MG TABLET GT SCH ×2 (08:32→20:01)
[2019-06-29] MEDS: VITAMINS A AND D OINT TP SCH ×2 (08:32→20:01)
[2019-06-29] MEDS: DIAZEPAM 10 MG TABLET GT SCH ×2 (08:32→20:01)
[2019-06-29] MEDS: Z GUARD REMEDY PASTE 57 GM TUBE TOP SCH ×2 (08:32→20:01)
[2019-06-29] MEDS: HYDROGEN PEROXIDE 3% 118 ML BOTTLE TP SCH ×2 (09:48→21:33)
[2019-06-29] MEDS: MULTIVIT, IRON, MIN NO. 8, FA TABLET GT SCH (20:01)
[2019-06-29 20:07] VITALS: BP 144/95
[2019-06-30 08:00] VITALS: BP 98/52
[2019-06-30] MEDS: METOPROLOL TARTRATE 50 MG TABLET GT SCH ×2 (08:59→20:50)
[2019-06-30] MEDS: ASPIRIN 81 MG TAB.CHEW GT SCH (08:59)
[2019-06-30] MEDS: LEVETIRACETAM 500 MG/5 ML LIQUID UDC GT SCH ×2 (08:59→20:49)
[2019-06-30] MEDS: ASCORBIC ACID 500 MG TABLET GT SCH ×2 (09:00→20:51)
[2019-06-30] MEDS: AMLODIPINE 10 MG TABLET GT SCH (09:00)
[2019-06-30] MEDS: Z GUARD REMEDY PASTE 57 GM TUBE TOP SCH ×2 (09:00→20:51)
[2019-06-30] MEDS: PHENOBARBITAL 30 MG/7.5 ML LIQUID UDC GT SCH ×2 (09:00→20:51)
[2019-06-30] MEDS: DIAZEPAM 10 MG TABLET GT SCH ×2 (09:00→20:51)
[2019-06-30] MEDS: LISINOPRIL 10 MG TABLET GT SCH (09:00)
[2019-06-30] MEDS: VITAMINS A AND D OINT TP SCH ×2 (09:01→20:51)
[2019-06-30] MEDS: HYDROGEN PEROXIDE 3% 118 ML BOTTLE TP SCH ×2 (09:33→21:29)
[2019-06-30 20:06] VITALS: BP 107/69
[2019-06-30] MEDS: MULTIVIT, IRON, MIN NO. 8, FA TABLET GT SCH (20:51)
[2019-06-30] MEDS: VITAL AF 1.2 1,000 ML LIQUID GT PRN (21:13)
[2019-07-01 08:00] VITALS: BP 117/69
[2019-07-01] MEDS: ASPIRIN 81 MG TAB.CHEW GT SCH (08:43)
[2019-07-01] MEDS: LEVETIRACETAM 500 MG/5 ML LIQUID UDC GT SCH ×2 (08:43→21:02)
[2019-07-01] MEDS: ASCORBIC ACID 500 MG TABLET GT SCH ×2 (08:44→21:03)
[2019-07-01] MEDS: LISINOPRIL 10 MG TABLET GT SCH (08:44)
[2019-07-01] MEDS: DIAZEPAM 10 MG TABLET GT SCH ×2 (08:44→21:02)
[2019-07-01] MEDS: PHENOBARBITAL 30 MG/7.5 ML LIQUID UDC GT SCH ×2 (08:44→21:02)
[2019-07-01] MEDS: Z GUARD REMEDY PASTE 57 GM TUBE TOP SCH ×2 (08:44→21:03)
[2019-07-01] MEDS: AMLODIPINE 10 MG TABLET GT SCH (08:44)
[2019-07-01] MEDS: VITAMINS A AND D OINT TP SCH ×2 (08:44→21:03)
[2019-07-01] MEDS: METOPROLOL TARTRATE 50 MG TABLET GT SCH ×2 (08:44→21:02)
[2019-07-01] MEDS: HYDROGEN PEROXIDE 3% 118 ML BOTTLE TP SCH ×2 (09:56→20:42)
[2019-07-01 20:29] VITALS: BP 136/91
[2019-07-01] MEDS: MULTIVIT, IRON, MIN NO. 8, FA TABLET GT SCH (21:02)
[2019-07-02 08:30] VITALS: BP 107/66
[2019-07-02] MEDS: LEVETIRACETAM 500 MG/5 ML LIQUID UDC GT SCH ×2 (08:32→21:23)
[2019-07-02] MEDS: METOPROLOL TARTRATE 50 MG TABLET GT SCH ×2 (08:32→21:24)
[2019-07-02] MEDS: ASPIRIN 81 MG TAB.CHEW GT SCH (08:32)
[2019-07-02] MEDS: DIAZEPAM 10 MG TABLET GT SCH ×2 (08:33→21:24)
[2019-07-02] MEDS: AMLODIPINE 10 MG TABLET GT SCH (08:33)
[2019-07-02] MEDS: LISINOPRIL 10 MG TABLET GT SCH (08:33)
[2019-07-02] MEDS: ASCORBIC ACID 500 MG TABLET GT SCH ×2 (08:33→21:24)
[2019-07-02] MEDS: VITAMINS A AND D OINT TP SCH ×2 (08:33→21:24)
[2019-07-02] MEDS: PHENOBARBITAL 30 MG/7.5 ML LIQUID UDC GT SCH ×2 (08:33→21:24)
[2019-07-02] MEDS: Z GUARD REMEDY PASTE 57 GM TUBE TOP SCH ×2 (08:33→21:24)
[2019-07-02] MEDS: HYDROGEN PEROXIDE 3% 118 ML BOTTLE TP SCH ×2 (10:29→21:00)
[2019-07-02] MEDS: MULTIVIT, IRON, MIN NO. 8, FA TABLET GT SCH (21:24)
[2019-07-02 22:00] VITALS: BP 123/74
[2019-07-03 07:51] VITALS: BP 127/79
[2019-07-03] MEDS: LEVETIRACETAM 500 MG/5 ML LIQUID UDC GT SCH ×2 (08:48→21:54)
[2019-07-03] MEDS: ASPIRIN 81 MG TAB.CHEW GT SCH (08:48)
[2019-07-03] MEDS: PHENOBARBITAL 30 MG/7.5 ML LIQUID UDC GT SCH ×2 (08:50→21:54)
[2019-07-03] MEDS: LISINOPRIL 10 MG TABLET GT SCH (08:50)
[2019-07-03] MEDS: DIAZEPAM 10 MG TABLET GT SCH ×2 (08:50→21:54)
[2019-07-03] MEDS: METOPROLOL TARTRATE 50 MG TABLET GT SCH ×2 (08:50→21:54)
[2019-07-03] MEDS: AMLODIPINE 10 MG TABLET GT SCH (08:50)
[2019-07-03] MEDS: ASCORBIC ACID 500 MG TABLET GT SCH ×2 (08:50→21:54)
[2019-07-03] MEDS: Z GUARD REMEDY PASTE 57 GM TUBE TOP SCH ×2 (08:51→21:54)
[2019-07-03] MEDS: VITAMINS A AND D OINT TP SCH ×2 (08:51→21:54)
[2019-07-03] MEDS: VITAL AF 1.2 1,000 ML LIQUID GT PRN (08:52)
[2019-07-03] MEDS: HYDROGEN PEROXIDE 3% 118 ML BOTTLE TP SCH ×2 (09:00→21:00)
[2019-07-03 20:09] VITALS: BP 126/85
[2019-07-03] MEDS: MULTIVIT, IRON, MIN NO. 8, FA TABLET GT SCH (21:54)
[2019-07-04 08:41] VITALS: BP 118/77
[2019-07-04] MEDS: LEVETIRACETAM 500 MG/5 ML LIQUID UDC GT SCH ×2 (08:43→21:17)
[2019-07-04] MEDS: ASPIRIN 81 MG TAB.CHEW GT SCH (08:43)
[2019-07-04] MEDS: AMLODIPINE 10 MG TABLET GT SCH (08:44)
[2019-07-04] MEDS: ASCORBIC ACID 500 MG TABLET GT SCH ×2 (08:45→21:17)
[2019-07-04] MEDS: PHENOBARBITAL 30 MG/7.5 ML LIQUID UDC GT SCH ×2 (08:45→21:17)
[2019-07-04] MEDS: METOPROLOL TARTRATE 50 MG TABLET GT SCH ×2 (08:45→21:17)
[2019-07-04] MEDS: LISINOPRIL 10 MG TABLET GT SCH (08:45)
[2019-07-04] MEDS: DIAZEPAM 10 MG TABLET GT SCH ×2 (08:45→21:17)
[2019-07-04] MEDS: VITAMINS A AND D OINT TP SCH ×2 (08:46→21:17)
[2019-07-04] MEDS: Z GUARD REMEDY PASTE 57 GM TUBE TOP SCH ×2 (08:46→21:17)
[2019-07-04] MEDS: HYDROGEN PEROXIDE 3% 118 ML BOTTLE TP SCH ×2 (09:50→21:00)
[2019-07-04] MEDS: VITAL AF 1.2 1,000 ML LIQUID GT PRN (11:00)
[2019-07-04 20:00] VITALS: BP 120/73
[2019-07-04] MEDS: MULTIVIT, IRON, MIN NO. 8, FA TABLET GT SCH (21:17)
[2019-07-05 08:09] VITALS: BP 107/67
[2019-07-05] MEDS: LISINOPRIL 10 MG TABLET GT SCH (09:00)
[2019-07-05] MEDS: METOPROLOL TARTRATE 50 MG TABLET GT SCH ×2 (09:00→21:15)
[2019-07-05] MEDS: AMLODIPINE 10 MG TABLET GT SCH (09:00)
[2019-07-05] MEDS: LEVETIRACETAM 500 MG/5 ML LIQUID UDC GT SCH ×2 (09:19→21:15)
[2019-07-05] MEDS: ASPIRIN 81 MG TAB.CHEW GT SCH (09:19)
[2019-07-05] MEDS: DIAZEPAM 10 MG TABLET GT SCH ×2 (09:20→21:16)
[2019-07-05] MEDS: PHENOBARBITAL 30 MG/7.5 ML LIQUID UDC GT SCH ×2 (09:20→21:16)
[2019-07-05] MEDS: Z GUARD REMEDY PASTE 57 GM TUBE TOP SCH ×2 (09:21→21:16)
[2019-07-05] MEDS: ASCORBIC ACID 500 MG TABLET GT SCH ×2 (09:21→21:16)
[2019-07-05] MEDS: VITAMINS A AND D OINT TP SCH ×2 (09:21→21:16)
[2019-07-05] MEDS: HYDROGEN PEROXIDE 3% 118 ML BOTTLE TP SCH ×2 (10:20→21:00)
[2019-07-05 21:11] VITALS: BP 130/70
[2019-07-05] MEDS: MULTIVIT, IRON, MIN NO. 8, FA TABLET GT SCH (21:16)
[2019-07-06 08:00] VITALS: BP 126/76
[2019-07-06] MEDS: PHENOBARBITAL 30 MG/7.5 ML LIQUID UDC GT SCH ×2 (08:03→21:29)
[2019-07-06] MEDS: DIAZEPAM 10 MG TABLET GT SCH ×2 (08:04→21:29)
[2019-07-06] MEDS: ASPIRIN 81 MG TAB.CHEW GT SCH (08:12)
[2019-07-06] MEDS: LEVETIRACETAM 500 MG/5 ML LIQUID UDC GT SCH ×2 (08:14→21:27)
[2019-07-06] MEDS: AMLODIPINE 10 MG TABLET GT SCH (08:14)
[2019-07-06] MEDS: LISINOPRIL 10 MG TABLET GT SCH (08:14)
[2019-07-06] MEDS: METOPROLOL TARTRATE 50 MG TABLET GT SCH ×2 (08:14→21:00)
[2019-07-06] MEDS: ASCORBIC ACID 500 MG TABLET GT SCH ×2 (08:15→21:29)
[2019-07-06] MEDS: VITAMINS A AND D OINT TP SCH ×2 (08:16→21:29)
[2019-07-06] MEDS: Z GUARD REMEDY PASTE 57 GM TUBE TOP SCH ×2 (08:16→21:29)
[2019-07-06] MEDS: HYDROGEN PEROXIDE 3% 118 ML BOTTLE TP SCH ×2 (09:30→21:11)
[2019-07-06] MEDS: VITAL AF 1.2 1,000 ML LIQUID GT PRN (11:38)
[2019-07-06 20:19] VITALS: BP 113/51
[2019-07-06] MEDS: MULTIVIT, IRON, MIN NO. 8, FA TABLET GT SCH (21:29)
[2019-07-07 08:00] VITALS: BP 134/87
[2019-07-07] MEDS: LEVETIRACETAM 500 MG/5 ML LIQUID UDC GT SCH ×2 (09:06→21:33)
[2019-07-07] MEDS: PHENOBARBITAL 30 MG/7.5 ML LIQUID UDC GT SCH ×2 (09:06→21:34)
[2019-07-07] MEDS: DIAZEPAM 10 MG TABLET GT SCH ×2 (09:06→21:35)
[2019-07-07] MEDS: ASPIRIN 81 MG TAB.CHEW GT SCH (09:06)
[2019-07-07] MEDS: METOPROLOL TARTRATE 50 MG TABLET GT SCH ×2 (09:09→21:34)
[2019-07-07] MEDS: LISINOPRIL 10 MG TABLET GT SCH (09:10)
[2019-07-07] MEDS: ASCORBIC ACID 500 MG TABLET GT SCH ×2 (09:10→21:35)
[2019-07-07] MEDS: AMLODIPINE 10 MG TABLET GT SCH (09:10)
[2019-07-07] MEDS: Z GUARD REMEDY PASTE 57 GM TUBE TOP SCH ×2 (09:11→21:35)
[2019-07-07] MEDS: VITAL AF 1.2 1,000 ML LIQUID GT PRN (09:13)
[2019-07-07] MEDS: VITAMINS A AND D OINT TP SCH ×2 (09:18→21:35)
[2019-07-07] MEDS: HYDROGEN PEROXIDE 3% 118 ML BOTTLE TP SCH ×2 (09:33→21:59)
[2019-07-07 20:07] VITALS: BP 138/84
[2019-07-07] MEDS: MULTIVIT, IRON, MIN NO. 8, FA TABLET GT SCH (21:35)
[2019-07-08] MEDS: VITAL AF 1.2 1,000 ML LIQUID GT PRN (04:09)
[2019-07-08] MEDS: HYDROGEN PEROXIDE 3% 118 ML BOTTLE TP SCH ×2 (07:53→21:48)
[2019-07-08 08:00] VITALS: BP 143/82
[2019-07-08] MEDS: ASPIRIN 81 MG TAB.CHEW GT SCH (08:27)
[2019-07-08] MEDS: LEVETIRACETAM 500 MG/5 ML LIQUID UDC GT SCH ×2 (08:27→20:19)
[2019-07-08] MEDS: AMLODIPINE 10 MG TABLET GT SCH (08:27)
[2019-07-08] MEDS: METOPROLOL TARTRATE 50 MG TABLET GT SCH ×2 (08:27→20:21)
[2019-07-08] MEDS: Z GUARD REMEDY PASTE 57 GM TUBE TOP SCH ×2 (08:28→20:22)
[2019-07-08] MEDS: LISINOPRIL 10 MG TABLET GT SCH (08:28)
[2019-07-08] MEDS: VITAMINS A AND D OINT TP SCH ×2 (08:28→20:22)
[2019-07-08] MEDS: ASCORBIC ACID 500 MG TABLET GT SCH ×2 (08:28→20:22)
[2019-07-08] MEDS: PHENOBARBITAL 30 MG/7.5 ML LIQUID UDC GT SCH ×2 (09:00→20:21)
[2019-07-08] MEDS: DIAZEPAM 10 MG TABLET GT SCH ×2 (09:00→20:22)
[2019-07-08 20:00] VITALS: BP 131/84
[2019-07-08] MEDS: MULTIVIT, IRON, MIN NO. 8, FA TABLET GT SCH (20:21)
[2019-07-09] MEDS: VITAL AF 1.2 1,000 ML LIQUID GT PRN (05:00)
[2019-07-09 08:00] VITALS: BP 126/64
[2019-07-09] MEDS: ASPIRIN 81 MG TAB.CHEW GT SCH (09:36)
[2019-07-09] MEDS: LEVETIRACETAM 500 MG/5 ML LIQUID UDC GT SCH ×2 (09:36→21:00)
[2019-07-09] MEDS: AMLODIPINE 10 MG TABLET GT SCH (09:39)
[2019-07-09] MEDS: METOPROLOL TARTRATE 50 MG TABLET GT SCH ×2 (09:39→21:00)
[2019-07-09] MEDS: PHENOBARBITAL 30 MG/7.5 ML LIQUID UDC GT SCH ×2 (09:39→21:00)
[2019-07-09] MEDS: DIAZEPAM 10 MG TABLET GT SCH ×2 (09:40→21:00)
[2019-07-09] MEDS: LISINOPRIL 10 MG TABLET GT SCH (09:40)
[2019-07-09] MEDS: Z GUARD REMEDY PASTE 57 GM TUBE TOP SCH ×2 (09:40→21:00)
[2019-07-09] MEDS: ASCORBIC ACID 500 MG TABLET GT SCH ×2 (09:40→21:00)
[2019-07-09] MEDS: VITAMINS A AND D OINT TP SCH ×2 (09:40→21:00)
[2019-07-09] MEDS: HYDROGEN PEROXIDE 3% 118 ML BOTTLE TP SCH ×2 (09:50→21:38)
[2019-07-09 20:00] VITALS: BP 113/70
[2019-07-09] MEDS: MULTIVIT, IRON, MIN NO. 8, FA TABLET GT SCH (21:00)
[2019-07-10] MEDS: VITAL AF 1.2 1,000 ML LIQUID GT PRN (04:20)
[2019-07-10 08:00] VITALS: BP 95/53
[2019-07-10] MEDS: LISINOPRIL 10 MG TABLET GT SCH (09:00)
[2019-07-10] MEDS: METOPROLOL TARTRATE 50 MG TABLET GT SCH ×2 (09:00→20:34)
[2019-07-10] MEDS: AMLODIPINE 10 MG TABLET GT SCH (09:00)
[2019-07-10] MEDS: LEVETIRACETAM 500 MG/5 ML LIQUID UDC GT SCH ×2 (09:08→20:34)
[2019-07-10] MEDS: ASPIRIN 81 MG TAB.CHEW GT SCH (09:08)
[2019-07-10] MEDS: PHENOBARBITAL 30 MG/7.5 ML LIQUID UDC GT SCH ×2 (09:09→20:34)
[2019-07-10] MEDS: ASCORBIC ACID 500 MG TABLET GT SCH ×2 (09:10→20:34)
[2019-07-10] MEDS: Z GUARD REMEDY PASTE 57 GM TUBE TOP SCH ×2 (09:10→20:34)
[2019-07-10] MEDS: VITAMINS A AND D OINT TP SCH ×2 (09:10→20:34)
[2019-07-10] MEDS: DIAZEPAM 10 MG TABLET GT SCH ×2 (09:10→20:34)
[2019-07-10] MEDS: HYDROGEN PEROXIDE 3% 118 ML BOTTLE TP SCH ×2 (09:20→21:29)
[2019-07-10 20:00] VITALS: BP 127/83
[2019-07-10] MEDS: MULTIVIT, IRON, MIN NO. 8, FA TABLET GT SCH (20:34)
[2019-07-11] MEDS: VITAL AF 1.2 1,000 ML LIQUID GT PRN ×2 (01:51→23:24)
[2019-07-11] MEDS: ASPIRIN 81 MG TAB.CHEW GT SCH (08:44)
[2019-07-11] MEDS: LEVETIRACETAM 500 MG/5 ML LIQUID UDC GT SCH ×2 (08:44→20:48)
[2019-07-11] MEDS: PHENOBARBITAL 30 MG/7.5 ML LIQUID UDC GT SCH ×2 (08:45→20:49)
[2019-07-11] MEDS: AMLODIPINE 10 MG TABLET GT SCH (08:45)
[2019-07-11] MEDS: METOPROLOL TARTRATE 50 MG TABLET GT SCH ×2 (08:45→20:48)
[2019-07-11] MEDS: ASCORBIC ACID 500 MG TABLET GT SCH ×2 (08:46→20:49)
[2019-07-11] MEDS: Z GUARD REMEDY PASTE 57 GM TUBE TOP SCH ×2 (08:46→20:49)
[2019-07-11] MEDS: VITAMINS A AND D OINT TP SCH ×2 (08:46→20:49)
[2019-07-11] MEDS: LISINOPRIL 10 MG TABLET GT SCH (08:46)
[2019-07-11] MEDS: DIAZEPAM 10 MG TABLET GT SCH ×2 (08:46→20:49)
[2019-07-11] MEDS: HYDROGEN PEROXIDE 3% 118 ML BOTTLE TP SCH ×2 (09:16→20:36)
[2019-07-11 12:07] VITALS: BP 138/79
[2019-07-11 19:56] VITALS: BP 127/80
[2019-07-11] MEDS: MULTIVIT, IRON, MIN NO. 8, FA TABLET GT SCH (20:49)
[2019-07-12 08:00] VITALS: BP 117/75
[2019-07-12] MEDS: LEVETIRACETAM 500 MG/5 ML LIQUID UDC GT SCH ×2 (08:27→20:35)
[2019-07-12] MEDS: ASPIRIN 81 MG TAB.CHEW GT SCH (08:27)
[2019-07-12] MEDS: METOPROLOL TARTRATE 50 MG TABLET GT SCH ×2 (08:27→20:35)
[2019-07-12] MEDS: AMLODIPINE 10 MG TABLET GT SCH (08:27)
[2019-07-12] MEDS: PHENOBARBITAL 30 MG/7.5 ML LIQUID UDC GT SCH ×2 (08:28→20:35)
[2019-07-12] MEDS: LISINOPRIL 10 MG TABLET GT SCH (08:28)
[2019-07-12] MEDS: Z GUARD REMEDY PASTE 57 GM TUBE TOP SCH ×2 (08:28→20:35)
[2019-07-12] MEDS: VITAMINS A AND D OINT TP SCH ×2 (08:28→20:36)
[2019-07-12] MEDS: ASCORBIC ACID 500 MG TABLET GT SCH ×2 (08:28→20:35)
[2019-07-12] MEDS: DIAZEPAM 10 MG TABLET GT SCH ×2 (08:28→20:35)
[2019-07-12] MEDS: HYDROGEN PEROXIDE 3% 118 ML BOTTLE TP SCH ×2 (09:57→20:35)
[2019-07-12 19:41] VITALS: BP 137/85
[2019-07-12] MEDS: MULTIVIT, IRON, MIN NO. 8, FA TABLET GT SCH (20:35)
[2019-07-13] MEDS: VITAL AF 1.2 1,000 ML LIQUID GT PRN (01:32)
[2019-07-13 06:51] LABS: ALANINE AMINOTRANSFERASE 24 U/L (14-59); ALKALINE PHOSPHATASE 120 U/L (50-136); ASPARTATE AMINOTRANSFERASE 13 U/L (15-37); BILIRUBIN,TOTAL 0.2 mg/dL (0.2-1.0); CARBON DIOXIDE 31 mmol/L (21-32); CHLORIDE 109 mmol/L (98-107); CREATININE 0.3 mg/dL (0.6-1.3); GLUCOSE 107 mg/dL (74-106); MAGNESIUM 1.8 mg/dL (1.8-2.4); PHOSPHOROUS 3.9 mg/dL (2.5-4.9); UREA NITROGEN, BLOOD 16 mg/dL (7-18)
[2019-07-13 07:05] LABS: BASOPHILS % (AUTO) 0.6 % (0.0-2.0); EOSINOPHILS # (AUTO) 0.1 K/uL (0.0-0.7); EOSINOPHILS % (AUTO) 2.4 % (0.0-7.0); HEMATOCRIT 37.4 % (31.2-41.9); HEMOGLOBIN 12.6 g/dL (10.9-14.3); LYMPHOCYTES % (AUTO) 22.6 % (20.5-51.5); MEAN CORPUSCULAR HEMOGLOBIN 29.2 uug (24.7-32.8); MEAN CORPUSCULAR HGB CONC 34 g/dL (32.3-35.6); MEAN CORPUSCULAR VOLUME 86.8 fL (75.5-95.3); MONOCYTES # (AUTO) 0.3 K/uL (2.0-10.0); MONOCYTES % (AUTO) 7.5 % (0.0-11.0); NEUTROPHILS # (AUTO) 3.1 K/uL (1.8-8.9); NEUTROPHILS % (AUTO) 66.9 % (38.5-71.5); PLATELET COUNT (AUTO) 174 K/uL (179-408); WHITE BLOOD COUNT (AUTO) 4.6 K/uL (3.8-11.8)
[2019-07-13 08:00] VITALS: BP 106/95
[2019-07-13] MEDS: PHENOBARBITAL 30 MG/7.5 ML LIQUID UDC GT SCH ×2 (09:00→21:15)
[2019-07-13] MEDS: LEVETIRACETAM 500 MG/5 ML LIQUID UDC GT SCH ×2 (09:00→21:15)
[2019-07-13] MEDS: METOPROLOL TARTRATE 50 MG TABLET GT SCH ×2 (09:00→21:15)
[2019-07-13] MEDS: VITAMINS A AND D OINT TP SCH ×2 (09:00→21:15)
[2019-07-13] MEDS: Z GUARD REMEDY PASTE 57 GM TUBE TOP SCH ×2 (09:00→21:15)
[2019-07-13] MEDS: LISINOPRIL 10 MG TABLET GT SCH (09:00)
[2019-07-13] MEDS: AMLODIPINE 10 MG TABLET GT SCH (09:00)
[2019-07-13] MEDS: ASPIRIN 81 MG TAB.CHEW GT SCH (09:00)
[2019-07-13] MEDS: DIAZEPAM 10 MG TABLET GT SCH ×2 (09:00→21:15)
[2019-07-13] MEDS: ASCORBIC ACID 500 MG TABLET GT SCH ×2 (09:00→21:15)
[2019-07-13] MEDS: HYDROGEN PEROXIDE 3% 118 ML BOTTLE TP SCH ×2 (09:23→20:54)
[2019-07-13 20:17] VITALS: BP 157/100
[2019-07-13] MEDS: MULTIVIT, IRON, MIN NO. 8, FA TABLET GT SCH (21:15)
[2019-07-13 23:05] VITALS: BP 126/87
[2019-07-14] MEDS: VITAL AF 1.2 1,000 ML LIQUID GT PRN (03:00)
[2019-07-14 08:00] VITALS: BP 101/62
[2019-07-14] MEDS: LEVETIRACETAM 500 MG/5 ML LIQUID UDC GT SCH ×2 (08:34→21:00)
[2019-07-14] MEDS: METOPROLOL TARTRATE 50 MG TABLET GT SCH ×2 (08:34→21:00)
[2019-07-14] MEDS: ASPIRIN 81 MG TAB.CHEW GT SCH (08:34)
[2019-07-14] MEDS: AMLODIPINE 10 MG TABLET GT SCH (08:35)
[2019-07-14] MEDS: PHENOBARBITAL 30 MG/7.5 ML LIQUID UDC GT SCH ×2 (08:35→21:00)
[2019-07-14] MEDS: LISINOPRIL 10 MG TABLET GT SCH (08:35)
[2019-07-14] MEDS: Z GUARD REMEDY PASTE 57 GM TUBE TOP SCH ×2 (08:36→21:00)
[2019-07-14] MEDS: ASCORBIC ACID 500 MG TABLET GT SCH ×2 (08:36→21:00)
[2019-07-14] MEDS: DIAZEPAM 10 MG TABLET GT SCH ×2 (08:36→21:00)
[2019-07-14] MEDS: VITAMINS A AND D OINT TP SCH ×2 (08:36→21:00)
[2019-07-14] MEDS: HYDROGEN PEROXIDE 3% 118 ML BOTTLE TP SCH ×2 (09:00→21:00)
[2019-07-14 19:30] VITALS: BP 101/62
[2019-07-14 20:15] VITALS: BP 122/71
[2019-07-14] MEDS: MULTIVIT, IRON, MIN NO. 8, FA TABLET GT SCH (21:00)
[2019-07-15 08:08] VITALS: BP 103/67
[2019-07-15] MEDS: METOPROLOL TARTRATE 50 MG TABLET GT SCH ×2 (09:00→21:23)
[2019-07-15] MEDS: AMLODIPINE 10 MG TABLET GT SCH (09:00)
[2019-07-15] MEDS: HYDROGEN PEROXIDE 3% 118 ML BOTTLE TP SCH ×2 (09:00→21:31)
[2019-07-15] MEDS: LISINOPRIL 10 MG TABLET GT SCH (09:00)
[2019-07-15] MEDS: PHENOBARBITAL 30 MG/7.5 ML LIQUID UDC GT SCH ×2 (09:17→21:30)
[2019-07-15] MEDS: ASPIRIN 81 MG TAB.CHEW GT SCH (09:17)
[2019-07-15] MEDS: LEVETIRACETAM 500 MG/5 ML LIQUID UDC GT SCH ×2 (09:17→21:21)
[2019-07-15] MEDS: DIAZEPAM 10 MG TABLET GT SCH ×2 (09:18→21:30)
[2019-07-15] MEDS: VITAMINS A AND D OINT TP SCH ×2 (09:18→21:31)
[2019-07-15] MEDS: Z GUARD REMEDY PASTE 57 GM TUBE TOP SCH ×2 (09:18→21:30)
[2019-07-15] MEDS: ASCORBIC ACID 500 MG TABLET GT SCH ×2 (09:18→21:30)
[2019-07-15] MEDS ORDERED: TUBERCULIN,PURIF.PROT.DERIV. 5 TU/0.1 ML TEST ID ONE (18:30)
[2019-07-15 19:49] VITALS: BP 147/93
[2019-07-15] MEDS: MULTIVIT, IRON, MIN NO. 8, FA TABLET GT SCH (21:30)
[2019-07-16 08:08] VITALS: BP 96/58
[2019-07-16] MEDS: LISINOPRIL 10 MG TABLET GT SCH (09:00)
[2019-07-16] MEDS: HYDROGEN PEROXIDE 3% 118 ML BOTTLE TP SCH ×2 (09:00→21:53)
[2019-07-16] MEDS: LEVETIRACETAM 500 MG/5 ML LIQUID UDC GT SCH ×2 (09:00→21:28)
[2019-07-16] MEDS: ASCORBIC ACID 500 MG TABLET GT SCH ×2 (09:00→21:19)
[2019-07-16] MEDS: AMLODIPINE 10 MG TABLET GT SCH (09:00)
[2019-07-16] MEDS: DIAZEPAM 10 MG TABLET GT SCH ×2 (09:00→21:19)
[2019-07-16] MEDS: PHENOBARBITAL 30 MG/7.5 ML LIQUID UDC GT SCH ×2 (09:00→21:18)
[2019-07-16] MEDS: VITAMINS A AND D OINT TP SCH ×2 (09:00→21:19)
[2019-07-16] MEDS: Z GUARD REMEDY PASTE 57 GM TUBE TOP SCH ×2 (09:00→21:19)
[2019-07-16] MEDS: METOPROLOL TARTRATE 50 MG TABLET GT SCH ×2 (09:00→21:18)
[2019-07-16] MEDS: ASPIRIN 81 MG TAB.CHEW GT SCH (09:00)
[2019-07-16 19:54] VITALS: BP 135/83
[2019-07-16] MEDS: MULTIVIT, IRON, MIN NO. 8, FA TABLET GT SCH (21:19)
[2019-07-16] MEDS: VITAL AF 1.2 1,000 ML LIQUID GT PRN (22:29)
[2019-07-17 08:00] VITALS: BP 102/63
[2019-07-17] MEDS: AMLODIPINE 10 MG TABLET GT SCH (08:15)
[2019-07-17] MEDS: LEVETIRACETAM 500 MG/5 ML LIQUID UDC GT SCH ×2 (08:15→21:20)
[2019-07-17] MEDS: ASPIRIN 81 MG TAB.CHEW GT SCH (08:15)
[2019-07-17] MEDS: METOPROLOL TARTRATE 50 MG TABLET GT SCH ×2 (08:15→21:00)
[2019-07-17] MEDS: ASCORBIC ACID 500 MG TABLET GT SCH ×2 (08:16→21:20)
[2019-07-17] MEDS: VITAMINS A AND D OINT TP SCH ×2 (08:16→21:20)
[2019-07-17] MEDS: Z GUARD REMEDY PASTE 57 GM TUBE TOP SCH ×2 (08:16→21:20)
[2019-07-17] MEDS: PHENOBARBITAL 30 MG/7.5 ML LIQUID UDC GT SCH ×2 (08:16→21:20)
[2019-07-17] MEDS: LISINOPRIL 10 MG TABLET GT SCH (08:16)
[2019-07-17] MEDS: DIAZEPAM 10 MG TABLET GT SCH ×2 (08:16→21:20)
[2019-07-17] MEDS: HYDROGEN PEROXIDE 3% 118 ML BOTTLE TP SCH ×2 (09:00→20:48)
[2019-07-17 20:49] VITALS: BP 103/68
[2019-07-17] MEDS: MULTIVIT, IRON, MIN NO. 8, FA TABLET GT SCH (21:20)
[2019-07-18 08:05] VITALS: BP 93/59
[2019-07-18] MEDS: LEVETIRACETAM 500 MG/5 ML LIQUID UDC GT SCH ×2 (08:37→21:04)
[2019-07-18] MEDS: ASPIRIN 81 MG TAB.CHEW GT SCH (08:37)
[2019-07-18] MEDS: METOPROLOL TARTRATE 50 MG TABLET GT SCH ×2 (08:38→21:05)
[2019-07-18] MEDS: PHENOBARBITAL 30 MG/7.5 ML LIQUID UDC GT SCH ×2 (08:39→21:05)
[2019-07-18] MEDS: AMLODIPINE 10 MG TABLET GT SCH (08:39)
[2019-07-18] MEDS: DIAZEPAM 10 MG TABLET GT SCH ×2 (08:40→21:05)
[2019-07-18] MEDS: ASCORBIC ACID 500 MG TABLET GT SCH ×2 (08:40→21:05)
[2019-07-18] MEDS: LISINOPRIL 10 MG TABLET GT SCH (08:40)
[2019-07-18] MEDS: VITAMINS A AND D OINT TP SCH ×2 (08:41→21:05)
[2019-07-18] MEDS: Z GUARD REMEDY PASTE 57 GM TUBE TOP SCH ×2 (08:41→21:05)
[2019-07-18] MEDS: HYDROGEN PEROXIDE 3% 118 ML BOTTLE TP SCH ×2 (09:30→21:00)
[2019-07-18] MEDS: VITAL AF 1.2 1,000 ML LIQUID GT PRN (12:58)
[2019-07-18] MEDS: MULTIVIT, IRON, MIN NO. 8, FA TABLET GT SCH (21:05)
[2019-07-18 21:48] VITALS: BP 126/78
[2019-07-19 08:05] VITALS: BP 112/77
[2019-07-19] MEDS: ASPIRIN 81 MG TAB.CHEW GT SCH (08:27)
[2019-07-19] MEDS: METOPROLOL TARTRATE 50 MG TABLET GT SCH ×2 (08:28→21:22)
[2019-07-19] MEDS: LEVETIRACETAM 500 MG/5 ML LIQUID UDC GT SCH ×2 (08:28→21:21)
[2019-07-19] MEDS: Z GUARD REMEDY PASTE 57 GM TUBE TOP SCH ×2 (08:29→21:22)
[2019-07-19] MEDS: LISINOPRIL 10 MG TABLET GT SCH (08:29)
[2019-07-19] MEDS: PHENOBARBITAL 30 MG/7.5 ML LIQUID UDC GT SCH ×2 (08:29→21:22)
[2019-07-19] MEDS: DIAZEPAM 10 MG TABLET GT SCH ×2 (08:29→21:22)
[2019-07-19] MEDS: ASCORBIC ACID 500 MG TABLET GT SCH ×2 (08:29→21:22)
[2019-07-19] MEDS: VITAMINS A AND D OINT TP SCH ×2 (08:29→21:22)
[2019-07-19] MEDS: AMLODIPINE 10 MG TABLET GT SCH (08:29)
[2019-07-19] MEDS: HYDROGEN PEROXIDE 3% 118 ML BOTTLE TP SCH ×2 (08:49→21:25)
[2019-07-19] MEDS: VITAL AF 1.2 1,000 ML LIQUID GT PRN (12:20)
[2019-07-19 19:53] VITALS: BP 130/86
[2019-07-19] MEDS: MULTIVIT, IRON, MIN NO. 8, FA TABLET GT SCH (21:22)
[2019-07-20 07:26] LABS: CREATININE 0.8 mg/dL (0.6-1.3); POTASSIUM 3.3 mmol/L (3.5-5.1)
[2019-07-20 08:00] VITALS: BP 126/69
[2019-07-20] MEDS: LEVETIRACETAM 500 MG/5 ML LIQUID UDC GT SCH ×2 (08:14→22:00)
[2019-07-20] MEDS: ASPIRIN 81 MG TAB.CHEW GT SCH (08:14)
[2019-07-20] MEDS: PHENOBARBITAL 30 MG/7.5 ML LIQUID UDC GT SCH ×2 (08:15→22:00)
[2019-07-20] MEDS: AMLODIPINE 10 MG TABLET GT SCH (08:15)
[2019-07-20] MEDS: METOPROLOL TARTRATE 50 MG TABLET GT SCH ×2 (08:15→21:30)
[2019-07-20] MEDS: VITAMINS A AND D OINT TP SCH ×2 (08:16→21:00)
[2019-07-20] MEDS: DIAZEPAM 10 MG TABLET GT SCH ×2 (08:16→22:00)
[2019-07-20] MEDS: LISINOPRIL 10 MG TABLET GT SCH (08:16)
[2019-07-20] MEDS: ASCORBIC ACID 500 MG TABLET GT SCH ×2 (08:16→21:00)
[2019-07-20] MEDS: Z GUARD REMEDY PASTE 57 GM TUBE TOP SCH ×2 (08:16→21:00)
[2019-07-20] MEDS: HYDROGEN PEROXIDE 3% 118 ML BOTTLE TP SCH ×2 (09:00→21:33)
[2019-07-20] MEDS ORDERED: POTASSIUM CHLORIDE 10 MEQ TAB.PRT.SR XX ONE (12:00)
[2019-07-20] MEDS: ACETAMINOPHEN 650 MG/20 ML UDC- SA PATIENTS-FEVER ONLY GT PRN (18:08)
[2019-07-20 18:55] LABS: BASOPHILS % (AUTO) 0.2 % (0.0-2.0); EOSINOPHILS % (AUTO) 0.4 % (0.0-7.0); HEMATOCRIT 36.3 % (31.2-41.9); HEMOGLOBIN 12.3 g/dL (10.9-14.3); LYMPHOCYTES # (AUTO) 0.3 K/uL (20.0-40.0); LYMPHOCYTES % (AUTO) 3.3 % (20.5-51.5); MEAN CORPUSCULAR HEMOGLOBIN 29.2 uug (24.7-32.8); MEAN CORPUSCULAR HGB CONC 34 g/dL (32.3-35.6); MEAN CORPUSCULAR VOLUME 86.4 fL (75.5-95.3); MONOCYTES # (AUTO) 0.5 K/uL (2.0-10.0); MONOCYTES % (AUTO) 5.3 % (0.0-11.0); NEUTROPHILS # (AUTO) 8.8 K/uL (1.8-8.9); NEUTROPHILS % (AUTO) 90.8 % (38.5-71.5); PLATELET COUNT (AUTO) 140 K/uL (179-408); WHITE BLOOD COUNT (AUTO) 9.7 K/uL (3.8-11.8)
[2019-07-20 19:00] LABS: CREATININE 0.9 mg/dL (0.6-1.3); POTASSIUM 3.4 mmol/L (3.5-5.1)
[2019-07-20 20:06] VITALS: BP 97/61
[2019-07-20 21:33] LABS: *BILIRUBIN,URIN NEGATIVE (NEGATIVE); *BLOOD, URINE 2+ (NEGATIVE); *CLARITY,URINE CLOUDY (CLEAR); *COLOR,URINE YELLOW (YELLOW); *KETONES,URINE NEGATIVE (NEGATIVE); *UROBILINOGEN,URINE 0.2 E.U./dl (NORMAL); LEUKOCYTE ESTERASE ,URINE 2+ (NEGATIVE); NITRITE, URINE NEGATIVE (NEGATIVE); UGLUCOSE NEGATIVE (NEGATIVE)
[2019-07-20] MEDS: MULTIVIT, IRON, MIN NO. 8, FA TABLET GT SCH (22:00)
[2019-07-20] MEDS: CEFEPIME HCL 1 G in IV DEXTROSE 5% 50 ML IV SCH (22:00)
[2019-07-20 22:01] LABS: BACTERIA,URINE 2 /HPF (NONE SEEN); SQUAMOUS EPITHELIAL CELL,UR FEW /HPF (NONE SEEN); WBC,URINE 20-50 /HPF (0-3)
[2019-07-20] MEDS: VANCOMYCIN IV 1 G in PREMIXED 0 EACH IV SCH (23:37)
[2019-07-21] MEDS: CEFEPIME HCL 1 G in IV DEXTROSE 5% 50 ML IV SCH ×2 (06:15→14:37)
[2019-07-21 08:00] VITALS: BP 103/48
[2019-07-21] MEDS: LEVETIRACETAM 500 MG/5 ML LIQUID UDC GT SCH ×2 (08:40→21:35)
[2019-07-21] MEDS: ASPIRIN 81 MG TAB.CHEW GT SCH (08:40)
[2019-07-21] MEDS: VITAMINS A AND D OINT TP SCH ×2 (08:42→21:37)
[2019-07-21] MEDS: LISINOPRIL 10 MG TABLET GT SCH (08:42)
[2019-07-21] MEDS: Z GUARD REMEDY PASTE 57 GM TUBE TOP SCH ×2 (08:42→21:37)
[2019-07-21] MEDS: AMLODIPINE 10 MG TABLET GT SCH (08:42)
[2019-07-21] MEDS: METOPROLOL TARTRATE 50 MG TABLET GT SCH ×2 (08:42→21:00)
[2019-07-21] MEDS: ASCORBIC ACID 500 MG TABLET GT SCH ×2 (08:42→21:37)
[2019-07-21] MEDS: DIAZEPAM 10 MG TABLET GT SCH ×2 (08:42→21:37)
[2019-07-21] MEDS: PHENOBARBITAL 30 MG/7.5 ML LIQUID UDC GT SCH ×2 (08:42→21:36)
[2019-07-21] MEDS: ACETAMINOPHEN 650 MG/20 ML UDC- SA PATIENTS-FEVER ONLY GT PRN ×2 (08:43→15:32)
[2019-07-21] MEDS: HYDROGEN PEROXIDE 3% 118 ML BOTTLE TP SCH ×2 (09:26→20:52)
[2019-07-21 20:23] VITALS: BP 87/54
[2019-07-21] MEDS ORDERED: DOSING PER PHARMACY-AMIKACIN IV XX PRN (20:30)
[2019-07-21] MEDS ORDERED: IV NORMAL SALINE 500 ML IV ONE (20:30)
[2019-07-21 21:12] VITALS: BP 95/55
[2019-07-21] MEDS: MULTIVIT, IRON, MIN NO. 8, FA TABLET GT SCH (21:37)
[2019-07-21] MEDS ORDERED: DOSING PER PHARMACY-AMIKACIN IV IV SCH (23:15)
[2019-07-21] MEDS: VANCOMYCIN IV 1 G in PREMIXED 0 EACH IV SCH (23:30)
[2019-07-22 01:17] VITALS: BP 117/67
[2019-07-22] MEDS: VITAL AF 1.2 1,000 ML LIQUID GT PRN (03:26)
[2019-07-22 08:00] VITALS: BP 105/52
[2019-07-22 09:00] VITALS: BP 105/52
[2019-07-22] MEDS: AMLODIPINE 10 MG TABLET GT SCH (09:00)
[2019-07-22] MEDS: METOPROLOL TARTRATE 50 MG TABLET GT SCH (09:00)
[2019-07-22] MEDS: LISINOPRIL 10 MG TABLET GT SCH (09:00)
[2019-07-22] MEDS: HYDROGEN PEROXIDE 3% 118 ML BOTTLE TP SCH (09:00)
[2019-07-22] MEDS: ASPIRIN 81 MG TAB.CHEW GT SCH (09:37)
[2019-07-22] MEDS: VITAMINS A AND D OINT TP SCH (09:43)
[2019-07-22] MEDS: Z GUARD REMEDY PASTE 57 GM TUBE TOP SCH (09:43)
[2019-07-22] MEDS: ASCORBIC ACID 500 MG TABLET GT SCH (09:43)
[2019-07-22] MEDS: LEVETIRACETAM 500 MG/5 ML LIQUID UDC GT SCH (09:46)
[2019-07-22] MEDS: DIAZEPAM 10 MG TABLET GT SCH (09:52)
[2019-07-22] MEDS: PHENOBARBITAL 30 MG/7.5 ML LIQUID UDC GT SCH (09:52)
[2019-07-22] MEDS: ACETAMINOPHEN 650 MG/20 ML UDC- SA PATIENTS-PAIN ONLY GT PRN (15:48)
[2019-07-22] MEDS ORDERED: LEVE100S GT (17:18)
[2019-07-22] MEDS ORDERED: MULT-24 GT (17:18)
[2019-07-22] MEDS ORDERED: AMIK250V13 IV (17:18)
[2019-07-22] MEDS ORDERED: VANC1VIA IV (17:18)
[2019-07-22] MEDS ORDERED: ACET160S2 GT (17:18)
[2019-07-22] MEDS ORDERED: LISI10TA5 GT (17:18)
[2019-07-22] MEDS ORDERED: DIAZ10TA4 GT (17:18)
[2019-07-22] MEDS ORDERED: ASCO500C18 GT (17:18)
[2019-07-22] MEDS ORDERED: METO50TA16 GT (17:18)
[2019-07-22] MEDS ORDERED: ASPI81TA31 GT (17:18)
[2019-07-22] MEDS ORDERED: PHEN32.46 GT (17:18)
[2019-07-22] MEDS ORDERED: AMLO10TA4 GT (17:18)
[2019-07-22] MEDS ORDERED: AMIKACIN 500 MG in IV DEXTROSE 5% 100 ML IV SCH (22:00)
== END 2019-07-22 16:05 | disposition short-term general hospital (02) | DRG 133 ==
LOC: SA
PROVIDERS: ADMIT Internal Medicine Pulmonary Disease; ATTEND Internal Medicine
DX: J96.11 Chronic respiratory failure with hypoxia (principal); G93.40 Encephalopathy, unspecified; L89.159 Pressure ulcer of sacral region, unspecified stage; Z93.0 Tracheostomy status; R13.10 Dysphagia, unspecified; D68.59 Other primary thrombophilia; E87.0 Hyperosmolality and hypernatremia; B37.0 Candidal stomatitis; I11.0 Hypertensive heart disease with heart failure; I50.9 Heart failure, unspecified; I69.351 Hemiplegia and hemiparesis following cerebral infarction affecting right dominant side; Z93.1 Gastrostomy status; G40.909 Epilepsy, unspecified, not intractable, without status epilepticus; Z86.19 Personal history of other infectious and parasitic diseases; Z87.01 Personal history of pneumonia (recurrent); I69.319 Unspecified symptoms and signs involving cognitive functions following cerebral infarction; I69.398 Other sequelae of cerebral infarction; I69.391 Dysphagia following cerebral infarction; Z87.440 Personal history of urinary (tract) infections; Z74.09 Other reduced mobility; Z22.39 Carrier of other specified bacterial diseases; E83.42 Hypomagnesemia; F15.11 Other stimulant abuse, in remission; Z87.09 Personal history of other diseases of the respiratory system; J98.11 Atelectasis; E78.5 Hyperlipidemia, unspecified; Z87.19 Personal history of other diseases of the digestive system; E87.6 Hypokalemia; Z16.24 Resistance to multiple antibiotics; N39.0 Urinary tract infection, site not specified; R47.02 Dysphasia; R50.9 Fever, unspecified
CPT/HCPCS: 36415; 71045; 80184; 83735; 84100; 85025; 86580; 87040; 87070; 87077; 87086; 90686; 90732; 93005; A4663; C1758; J0278; J0692; J0713; J2185; J3370; J3490; J7040; J7060; J8499

== ENCOUNTER 2019-07-22 16:15 | Inpatient (IN) | payer OTHER ==
[~2019-07-22] VITALS: Ht 170.2 cm; Wt 65.8 kg
[2019-07-22] VITALS (14 sets, daily range): BP systolic 76–86; BP diastolic 49–60
[2019-07-22] MEDS ORDERED: DILTIAZEM HCL 25 MG IV ONE (16:27)
[2019-07-22] MEDS ORDERED: DILTIAZEM HCL IV 125 MG in IV NORMAL SALINE 100 ML IV PRN (16:30)
[2019-07-22] MEDS ORDERED: ACETAMINOPHEN 650 MG SUPP.RECT RC ONE ×2 (16:30→16:41)
[2019-07-22] MEDS ORDERED: DILTIAZEM HCL 25 MG IV IV ONE (16:30)
--- NOTE | 2019-07-22 16:35 | NUR ---
Pt transferred from Sub acute using ambu-bag. Pt trach changed to Shaheen MccormackCT without complications. Cuff inflated, trach patent and secured. Pt placed on continuous mechanical ventilation with ordered settings. Pt placed on A/C-12, VT-500, PEEP+5, FIO2-100% Tolerating vent settings well. Sputum sample sent to Lab. Vent plugged into red emergency outlet. Vent alarm parameters checked, on and audible. Bag/valve/mask and back-up trach at bedside. Will continue to monitor.
[2019-07-22] MEDS ORDERED: IBUPROFEN 100 MG/5 ML LIQUID UDC- SA PATIENTS-PAIN ONLY GT STA (16:47)
--- NOTE | 2019-07-22 16:50 | NUR ---
PT IS TRACHED AND NON-VERBAL, RECEIVED FROM SUB-ACUTE UNIT, C/O A-FIB W/ RVR AND DESATURATION. PT ARRIVED VENTILATED W/ AMBUBAG BY RT. UPON ASSESSMENT, PT IN A-FIB W/ RVR. ER MD AT BEDSIDE FOR MSE. G-TUBE AND WARE-CATH IN PLACE. VSS.
--- NOTE | 2019-07-22 16:53 | NUR ---
TRACH IS SHILEY 8 CUFFED VENT SETTING AC 12, TIDAL VOL 500, PEEP 5, 100%.
[2019-07-22 16:58] LABS: *BILIRUBIN,URIN 1+ (NEGATIVE); *BLOOD, URINE 3+ (NEGATIVE); *CLARITY,URINE TURBID (CLEAR); *COLOR,URINE YELLOW (YELLOW); *KETONES,URINE NEGATIVE (NEGATIVE); *UROBILINOGEN,URINE 0.2 E.U./dl (NORMAL); LEUKOCYTE ESTERASE ,URINE 3+ (NEGATIVE); NITRITE, URINE NEGATIVE (NEGATIVE); UGLUCOSE NEGATIVE (NEGATIVE)
[2019-07-22] MEDS ORDERED: VANCOMYCIN IV 1,000 MG in IV DEXTROSE 5% 250 ML IV ONE (17:00)
[2019-07-22] MEDS ORDERED: IV NORMAL SALINE 1000 ML BAG IV ONE (17:00)
[2019-07-22] MEDS ORDERED: MEROPENEM 1,000 MG in IV NORMAL SALINE 250 ML IV ONE (17:00)
--- NOTE | 2019-07-22 17:00 | NUR ---
CARDIZEM DRIP STOPPED. BP 85/36. ER AWARE.
[2019-07-22 17:04] LABS: BASOPHILS % (AUTO) 0.2 % (0.0-2.0)
[2019-07-22 17:05] LABS: LYMPHOCYTES # (AUTO) 0.1 K/uL (20.0-40.0)
[2019-07-22 17:06] LABS: HEMATOCRIT 28.8 % (31.2-41.9); HEMOGLOBIN 9.6 g/dL (10.9-14.3); LYMPHOCYTES % (AUTO) 7.8 % (20.5-51.5); MEAN CORPUSCULAR HEMOGLOBIN 28.7 uug (24.7-32.8); MEAN CORPUSCULAR HGB CONC 33 g/dL (32.3-35.6); MONOCYTES % (AUTO) 1.1 % (0.0-11.0); NEUTROPHILS # (AUTO) 1.3 K/uL (1.8-8.9); NEUTROPHILS % (AUTO) 89.9 % (38.5-71.5); PLATELET COUNT (AUTO) 53 K/uL (179-408); RED BLOOD CELL COUNT(AUTO) 3.35 MIL/uL (3.63-4.92)
[2019-07-22] MEDS ORDERED: MEROPENEM 1GM/NS 100ML IVPB **ER PYXIS ONLY IV ONE (17:06)
[2019-07-22] MEDS ORDERED: IBUPROFEN 100 MG/5 ML LIQUID UDC ONE (17:06)
[2019-07-22 17:08] LABS: POTASSIUM 3.3 mmol/L (3.5-5.1)
[2019-07-22 17:10] LABS: WHITE BLOOD COUNT (AUTO) 1.5 K/uL (3.8-11.8)
[2019-07-22 17:13] LABS: ABG BASE EXCESS -4.8 mmol/L; ABG HCO3 20.1 mmol/L; ABG PCO2 36.1 mmHg (35.0-45.0); ABG PH 7.363 (7.350-7.450); ABG PO2 159.4 mmHg (75.0-100.0); ABG SITE LEFT BRACHIAL; ABG TOTAL HEMOGLOBIN 10.1 G/dL (12.0-16.0); COHb 0.6 % (0.5-1.5); MetHb 0.2 % (0.0-1.5); O2Hb 98.7 % (94.0-97.0); VENT MODE VENT - A/C; VT, ABG 500 mL
--- NOTE | 2019-07-22 17:15 | NUR ---
Consent for synchronized cardioversion signed by ER physician.
--- NOTE | 2019-07-22 17:17 | NUR ---
SYNCHRONIZED CARDIOVERSION PERFORMED W/ ER AND RT AT BEDSIDE - 200 J. SYNC CARDIOVERSION SUCCESSFUL - SINUS TACH ON TELE MONITOR.
[2019-07-22] MEDS ORDERED: ASPI81TA31 GT (17:18)
[2019-07-22] MEDS ORDERED: PHEN32.46 GT (17:18)
[2019-07-22] MEDS ORDERED: LISI10TA5 GT (17:18)
[2019-07-22] MEDS ORDERED: AMIK250V13 IV (17:18)
[2019-07-22] MEDS ORDERED: MULT-24 GT (17:18)
[2019-07-22] MEDS ORDERED: LEVE100S GT (17:18)
[2019-07-22] MEDS ORDERED: ACET160S2 GT (17:18)
[2019-07-22] MEDS ORDERED: DIAZ10TA4 GT (17:18)
[2019-07-22] MEDS ORDERED: VANC1VIA IV (17:18)
[2019-07-22] MEDS ORDERED: AMLO10TA4 GT (17:18)
[2019-07-22] MEDS ORDERED: METO50TA16 GT (17:18)
[2019-07-22] MEDS ORDERED: ASCO500C18 GT (17:18)
[2019-07-22 17:20] LABS: BILIRUBIN,DIRECT 1.3 mg/dL (0.0-0.2); BILIRUBIN,TOTAL 1.5 mg/dL (0.2-1.0); TOTAL PROTEIN, SERUM 6.3 g/dL (6.4-8.2)
[2019-07-22 17:27] LABS: MAGNESIUM 1.7 mg/dL (1.8-2.4); PHOSPHOROUS 1.6 mg/dL (2.5-4.9)
--- NOTE | 2019-07-22 17:32 | NUR ---
NEW VENT SETTING - AC 12, VOL 500, PEEP 5, 50%
[2019-07-22 17:41] LABS: THYROID STIMULATING HORMONE 0.949 mIU/mL (0.358-3.740)
[2019-07-22] MEDS ORDERED: IV NS 1000 ML 1,000 ML IV ONE (18:00)
[2019-07-22] MEDS ORDERED: NOREPINEPHRINE BITARTRATE 8 MG in IV DEXTROSE 5% 500 ML IV ONE (18:00)
[2019-07-22 18:03] LABS: RBC,URINE 80-100 /HPF (0-3); SQUAMOUS EPITHELIAL CELL,UR MODERATE /HPF (NONE SEEN); WBC,URINE TNTC /HPF (0-3)
[2019-07-22 18:04] LABS: CALCIUM OXALATE CRYSTALS,UR FEW /HPF (NONE SEEN)
--- NOTE | 2019-07-22 18:35 | NUR ---
Consent for triple-lumen central line insertion signed by ER physician.
--- NOTE | 2019-07-22 18:50 | NUR ---
TRIPLE-LUMEN CENTRAL LINE PLACED IN L SUBCLAVIAN BY YASMEEN AVILES.
--- NOTE | 2019-07-22 18:50 | NUR ---
LEVOPHED INFUSING VIA TRIPLE-LUMEN CENTRAL LINE.
--- NOTE | 2019-07-22 19:14 | NUR ---
SHIFT REPORT GIVEN TO YARA Guaman RN.
[2019-07-22 19:59] LABS: BAND % (MANUAL) 48 % (0-10); NEUTROPHILS % (MANUAL) 40 % (42-75)
[2019-07-22 20:00] LABS: LYMPHOCYTES % (MANUAL) 9 % (20-40); METAMYELOCYTES % 2 % (0-1); MONOCYTES % (MANUAL) 1 % (2-10)
[2019-07-22] MEDS ORDERED: MAGNESIUM SULFATE/D5W 100 ML IV SCH ×2 (20:00→21:45)
[2019-07-22] MEDS ORDERED: POTASSIUM CHLORIDE 20 MEQ POWDER PACKET GT ONE (20:00)
--- NOTE | 2019-07-22 20:06 | NUR ---
Pt. admitted to ccu , under care of Dr. Dewey report given to JEFFERY granados
[2019-07-22] MEDS ORDERED: DOSING PER PHARMACY-AMIKACIN IV XX PRN (20:45)
--- NOTE | 2019-07-22 20:54 | NUR ---
CLINICAL PHARMACY NOTE:VANCOMYCIN AND AMIKACIN DOSING Request for vancomycin and amikacin dosing on 58 y/o female 170.18 cm 65.77kg for blood stream infection Temp 101.3 BUN 49 scr 2.0 WBC 1.5 Patient started on vancomycin and Amikacin on 4th floor transferred to CCU Scr has increased Continue vancomycin 1gm IVPB q30h estimated trough 15.23 will order trough level prior to 4th dose. Continue amikacin at 300mg ivpb q18h estimate peak 27 trough 4. Will order trough level prior to 4th dose peak after 4th dose. Will continue to monitor. Doses will be adjusted with changing renal function and levels
[2019-07-22] MEDS ORDERED: NOREPINEPHRINE BITARTRATE 8 MG in IV DEXTROSE 5% 500 ML IV PRN (21:00)
[2019-07-22] MEDS ORDERED: ONDANSETRON 4 MG/2 ML VIAL IV PRN (21:00)
[2019-07-22] MEDS ORDERED: ACETAMINOPHEN 650 MG SUPP.RECT RC PRN (21:00)
--- NOTE | 2019-07-22 21:22 | NUR ---
HARI AT B/S examining and evaluating patient with admitting orders . updated MD with patient status and condition .labs and current treatment and medication .patient on Levophed drip .
[2019-07-22] MEDS ORDERED: ACETAMINOPHEN GT PRN (21:30)
--- NOTE | 2019-07-22 21:30 | NUR ---
new medication scan and given . continue with Levophed drip and to follow Levophed drip protocol bp done q15 minutes . admitted patient and data collected from chart patient unable to give information . trach to vent ac 12/vt 500/fio2 50% peep 5 suction via trach and via mouth .peg tube clamp npo . hob up .f/c to bsd .continue to provide nursing care .
[2019-07-22] MEDS: POTASSIUM PHOSPHATE MM 7.5 MMOL in IV DEXTROSE 5% 100 ML IV SCH ×2 (21:46→23:05)
[2019-07-22] MEDS: AMIKACIN 300 MG in IV DEXTROSE 5% 100 ML IV SCH (21:46)
[2019-07-22] MEDS: IV NORMAL SALINE 250 ML IV PRN (21:51)
--- NOTE | 2019-07-22 22:46 | NUR ---
u/s water technician at bedside for US GALL BLADDER C/O ELEVATED LFTS.
[2019-07-22] MEDS ORDERED: VANCOMYCIN IV 1,000 MG in IV DEXTROSE 5% 250 ML IV SCH (23:00)
[2019-07-23] VITALS (92 sets, daily range): BP systolic 77–129; BP diastolic 52–94
[2019-07-23] MEDS ORDERED: NOREPINEPHRINE BITARTRATE 4 MG/4 ML VIAL IV ONE ×2 (01:07→06:35)
[2019-07-23] MEDS: NOREPINEPHRINE BITARTRATE 8 MG in IV DEXTROSE 5% 500 ML IV PRN ×5 (01:22→20:50)
--- NOTE | 2019-07-23 02:33 | NUR ---
PT ON CONT BROCK VENT WITH SHILEY #[address] AND SECURED, WITH CURRENT VENT SETTINGS, A/C12, VT 500ML ,PEP5, 50%, PT DOES ASSIST AT TIMES, GOOD COUGH EFFORT, SUCTIONED LIGHT PALE YELL TINGE SECRETIONS, NO VENT CHANGES MADE, PT WITH LOW BP,GOOD SAT 100%. BACK UP TRACH AT BEDSIDE, ALL ALARMS GOOD , ABG IN AM 0600 D VALENTINA VERDUZCO Addendum: 07/23/19 at 0236 by KSENIA MONTGOMERY RT Amended: Links added.
[2019-07-23 05:10] LABS: BASOPHILS # (AUTO) 0.1 K/uL (0.0-8.0); BASOPHILS % (AUTO) 0.4 % (0.0-2.0); EOSINOPHILS # (AUTO) 1.2 K/uL (0.0-0.7); EOSINOPHILS % (AUTO) 7.8 % (0.0-7.0); HEMOGLOBIN 9.4 g/dL (10.9-14.3); LYMPHOCYTES # (AUTO) 0.3 K/uL (20.0-40.0); LYMPHOCYTES % (AUTO) 1.8 % (20.5-51.5); MEAN CORPUSCULAR HEMOGLOBIN 28.1 uug (24.7-32.8); MEAN CORPUSCULAR HGB CONC 33 g/dL (32.3-35.6); MEAN CORPUSCULAR VOLUME 86.5 fL (75.5-95.3); MONOCYTES # (AUTO) 0.6 K/uL (2.0-10.0); NEUTROPHILS # (AUTO) 13.4 K/uL (1.8-8.9); PLATELET COUNT (AUTO) 70 K/uL (179-408); RED BLOOD CELL COUNT(AUTO) 3.35 MIL/uL (3.63-4.92); WHITE BLOOD COUNT (AUTO) 15.6 K/uL (3.8-11.8)
[2019-07-23 05:25] LABS: BILIRUBIN,TOTAL 1.4 mg/dL (0.2-1.0); MAGNESIUM 2.4 mg/dL (1.8-2.4); PHOSPHOROUS 1.9 mg/dL (2.5-4.9); POTASSIUM 3.6 mmol/L (3.5-5.1); TOTAL PROTEIN, SERUM 6.3 g/dL (6.4-8.2)
[2019-07-23 05:48] LABS: ABG BASE EXCESS -6.9 mmol/L; ABG HCO3 20.8 mmol/L; ABG PCO2 51.6 mmHg (35.0-45.0); ABG PH 7.224 (7.350-7.450); ABG SITE LEFT RADIAL; ABG TOTAL HEMOGLOBIN 11.5 G/dL (12.0-16.0); COHb 0.7 % (0.5-1.5); MetHb 0.2 % (0.0-1.5); O2Hb 96.3 % (94.0-97.0); VENT MODE VENT - A/C; VT, ABG 500 mL
--- NOTE | 2019-07-23 06:47 | NUR ---
ABG RESULT DICTATED TO FAMILIA CASH WITH NEW VENT CHANGES ORDER .
[2019-07-23] MEDS: ASPIRIN 81 MG TAB.CHEW GT SCH (09:01)
[2019-07-23] MEDS: MULTIVITAMINS,THERAPEUTIC TABLET GT SCH (09:01)
[2019-07-23] MEDS: ASCORBIC ACID 500 MG TABLET GT SCH ×2 (09:01→20:56)
[2019-07-23] MEDS: PHENOBARBITAL 32.4 MG TABLET GT SCH ×2 (09:02→20:55)
[2019-07-23] MEDS: ACETAMINOPHEN 650 MG/20.3 ML LIQUID UDC GT PRN (09:06)
[2019-07-23] MEDS: LEVETIRACETAM 500 MG/5 ML LIQUID UDC GT SCH ×2 (09:11→20:54)
[2019-07-23 09:44] LABS: NEUTROPHILS % (MANUAL) 87 % (42-75)
[2019-07-23 09:45] LABS: EOSINOPHILS % (MANUAL) 3 % (0-8); LYMPHOCYTES % (MANUAL) 5 % (20-40); MONOCYTES % (MANUAL) 5 % (2-10)
[2019-07-23] MEDS: DIAZEPAM 10 MG TABLET GT SCH ×2 (10:22→20:57)
--- NOTE | 2019-07-23 10:30 | NUR ---
Cardiology services, Vangie Hill. in the unit to see and examine patient, full report given, see orders.
[2019-07-23] MEDS: AMIODARONE HCL 200 MG TABLET PEG SCH ×2 (12:27→20:56)
--- NOTE | 2019-07-23 12:37 | NUR ---
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 A/P: Continue amikacin at 300mg ivpb q18h estimate peak 27 trough 4, 2nd dose today at 1600. Will order trough level prior to 4th dose ,peak after 4th dose(not ordered yet). Will continue to monitor. Doses will be adjusted with changing renal function and levels
--- NOTE | 2019-07-23 15:34 | NUR ---
At this time Neuorology services, Dr. Be in the unit to see and examine patient. See orders hx.
--- NOTE | 2019-07-23 15:34 | NUR ---
pulmonary services, Dr. Lora in the unit to see and examine patient, full report given. See order hx.
[2019-07-23] MEDS ORDERED: SODIUM PHOSPHATE MM 15 MM in IV DEXTROSE 5% 250 ML IV ONE (16:30)
--- NOTE | 2019-07-23 16:30 | NUR ---
A call to attending physician Dr. Zamudio to notify persistent low blood pressure despite levophed and to inform that drip its about to reach maximum dose.
[2019-07-23] MEDS: AMIKACIN 300 MG in IV DEXTROSE 5% 100 ML IV SCH (16:53)
--- NOTE | 2019-07-23 17:04 | NUR ---
A call back from Dr. Zamudio and orders to bolus pt with 500 cc of normal saline and start her on NS at 80cc/hr. received and implemented.
[2019-07-23] MEDS ORDERED: IV NORMAL SALINE 500 ML IV ONE (17:15)
[2019-07-23] MEDS: IV NS 1000 ML 1,000 ML IV PRN (17:22)
--- NOTE | 2019-07-23 20:00 | NUR ---
RECEIVED PT. RESPONDING TO DEEP PAIN STIMULI.TRACH TO VENT W/ SETTINGS OF AC-12, TV-500, FIO2-50%, PEEP-+5 W/ O2 SAT OF 99%. ON LEVOPHED DRIP @ 35MCQ/MIN VIA LEFT SUBCLAVIAN TLC.IVF NS @ 80CC/HR.G-TUBE INTACT & PATENT, REMAINS CLAMPED. SUCTIONED VIA TRACH W/ THICK TANNISH MUCOUS MODERATE AMT. REPOSITIONED ON HER SIDE W/ HOB ELEVATED.
--- NOTE | 2019-07-23 20:50 | NUR ---
PT ON CONT BROCK VENT WITH SHILEY # [address] AND SECURED, WITH SAME CURRENT VENT SETTINGS, A/C 16 , VT 500ML, PEEP5, 50% , PT DOES ASSIST AT TIMES, CHECK CUFF, CHANGE HME, ALL VENT ALARMS GOOD, SUCTION LIGHT PALE YELL TINGE SECRETIONS, AND SUCTION MOUTH WITH YANKAUER, THICK WHITISH TINGE; NO VENT CHANGES MADE, AMBU BAG AT BEDSIDE, TRACH CARE DONE, PT STABLE AT THIS TIME. Helena MONTGOMERY RCP Addendum: 07/23/19 at 2052 by KSENIA MONTGOMERY RT Amended: Links added.
--- NOTE | 2019-07-23 23:00 | NUR ---
HS CARE DONE. SUCTIONED & REPOSITIONED.
[2019-07-24] VITALS (88 sets, daily range): BP systolic 76–139; BP diastolic 50–75
--- NOTE | 2019-07-24 04:30 | NUR ---
AM CARE DONE. TRACH CARE DONE. ORAL CARE DONE. CLEANED G-TUBE SITE & DRSG APPLIED.
[2019-07-24 05:26] LABS: BASOPHILS % (AUTO) 0.3 % (0.0-2.0); EOSINOPHILS # (AUTO) 0.1 K/uL (0.0-0.7); EOSINOPHILS % (AUTO) 0.7 % (0.0-7.0); HEMATOCRIT 27.1 % (31.2-41.9); HEMOGLOBIN 8.9 g/dL (10.9-14.3); LYMPHOCYTES # (AUTO) 0.5 K/uL (20.0-40.0); LYMPHOCYTES % (AUTO) 3.9 % (20.5-51.5); MEAN CORPUSCULAR HGB CONC 33 g/dL (32.3-35.6); MEAN CORPUSCULAR VOLUME 85.5 fL (75.5-95.3); MONOCYTES # (AUTO) 0.8 K/uL (2.0-10.0); MONOCYTES % (AUTO) 5.8 % (0.0-11.0); NEUTROPHILS # (AUTO) 11.7 K/uL (1.8-8.9); NEUTROPHILS % (AUTO) 89.3 % (38.5-71.5); PLATELET COUNT (AUTO) 76 K/uL (179-408); RED BLOOD CELL COUNT(AUTO) 3.17 MIL/uL (3.63-4.92); WHITE BLOOD COUNT (AUTO) 13.1 K/uL (3.8-11.8)
[2019-07-24] MEDS: NOREPINEPHRINE BITARTRATE 8 MG in IV DEXTROSE 5% 500 ML IV PRN ×3 (05:36→17:26)
--- NOTE | 2019-07-24 06:00 | NUR ---
REPOSITIONED ON HER SIDE W/ HOB ELEVATED.
[2019-07-24 06:19] LABS: PHOSPHOROUS 3.1 mg/dL (2.5-4.9); POTASSIUM 3.7 mmol/L (3.5-5.1)
[2019-07-24] MEDS: IV NS 1000 ML 1,000 ML IV PRN ×2 (06:54→19:50)
--- NOTE | 2019-07-24 07:15 | NUR ---
Report received from JEFFERY Botello.Pt remains unresponsive.No s/s of pain,discomfort.No SOB noted.Remains on Levophed gtt at 30 mcg/min.Will continue to monitor.
[2019-07-24 08:40] LABS: ABG HCO3 16.2 mmol/L; ABG PCO2 41.6 mmHg (35.0-45.0); ABG PH 7.208 (7.350-7.450); ABG PO2 147.8 mmHg (75.0-100.0); ABG SITE RIGHT RADIAL; ABG TOTAL HEMOGLOBIN 9.7 G/dL (12.0-16.0); COHb 0.6 % (0.5-1.5); MetHb 0.3 % (0.0-1.5); O2Hb 98.6 % (94.0-97.0); VENT MODE VENT - A/C; VT, ABG 500 mL
[2019-07-24] MEDS: ASPIRIN 81 MG TAB.CHEW GT SCH (08:41)
[2019-07-24] MEDS: AMIODARONE HCL 200 MG TABLET PEG SCH ×2 (08:42→20:37)
[2019-07-24] MEDS: ASCORBIC ACID 500 MG TABLET GT SCH ×2 (08:42→20:37)
[2019-07-24] MEDS: LEVETIRACETAM 500 MG/5 ML LIQUID UDC GT SCH ×2 (08:42→20:36)
[2019-07-24] MEDS: DIAZEPAM 10 MG TABLET GT SCH ×2 (08:42→20:37)
[2019-07-24] MEDS: MULTIVITAMINS,THERAPEUTIC TABLET GT SCH (08:42)
--- NOTE | 2019-07-24 10:00 | NUR ---
Seen,examined by .Updated on pt status.
[2019-07-24] MEDS: PHENOBARBITAL 32.4 MG TABLET GT SCH ×2 (10:22→20:36)
[2019-07-24] MEDS: AMIKACIN 300 MG in IV DEXTROSE 5% 100 ML IV SCH (10:23)
--- NOTE | 2019-07-24 12:49 | NUR ---
WOUND CARE CONSULT: PT PRESENTS WITH LEFT LOWER BUTTOCK AND SACRAL SCARRING AND GENERALIZED EDEMA, PRESENT ON ADMISSION. PT IS INCONTINENT OF STOOL. RECOMMENDATIONS MADE FOR SKIN PAROTECTION. DISCUSSED WITH NURSING STAFF. PT ON FIRST STEP [facility]. WILL SEE PRN. AVILES IN AGREEMENT WITH PLAN OF CARE. Addendum: 07/24/19 at 1254 by LUCIANA BENEDICT RN Amended: Links added.
--- NOTE | 2019-07-24 15:53 | NUR ---
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 Trough pending 07/25 @0330 Peak pending 07/25 @0500 A/P: Continue amikacin at 300mg ivpb q18h estimate peak 27 trough 4, third dose today at 1000. Peak and trough now pending before and after 4th scheduled dose: trough due tomorrow early am at 0330 and peak at 0500 (30min after end infusion of 0400 dose). Will check levels when available and adjust as needed. Will follow
--- NOTE | 2019-07-24 20:00 | NUR ---
RECEIVED PT RESPONDING TO DEEP PAINFUL STIMULI. TRACH TO VENT W/ SETTINGS OF AC-12, TV-500, FIO2-50%, PEEP-+5 W/ O2 SAT OF 99%. IVF NS @ 80CC/HR. ON LEVOPHED DRIP @ 18CC/HR VIA TLC ON LEFT SUBCLAVIAN. G-TUBE INTACT & CLAMPED.SUCTIONED VIA TRACH & OROPHARYNGEALLY W/ THICK WHITISH MODERATE AMT. OF MUCOUS. REPOSITIONED ON HER SIDE W/ HOB ELEVATED.
--- NOTE | 2019-07-24 23:00 | NUR ---
HS CARE DONE. SUCTIONED & REPOSITIONED W/ HOB ELEVATED.
[2019-07-25] VITALS (71 sets, daily range): BP systolic 83–138; BP diastolic 55–86
[2019-07-25] MEDS: NOREPINEPHRINE BITARTRATE 8 MG in IV DEXTROSE 5% 500 ML IV PRN (00:36)
--- NOTE | 2019-07-25 03:52 | NUR ---
RECEIVED PATIENT TRACHED ON A BROCK VENTILATOR WITH THE FOLLOWING SETTINGS THAT ARE CHARTED ON THE MECHANICAL VENTILATOR NOTES. PATIENT HAS A SIZE #8 SHILEY TRACH TUBE AND IT IS SECURED WITH TRACH TIES. ORAL AND TRACH CARE DONE. HME CHANGED. AMBU BAG IS BY BEDSIDE. VENTILATOR ALARMS ARE ON AND AUDIBLE. VENTILATOR IS PLUGGED IN THE RED OUTLET. PATIENT IS TOLERATING CURRENT VENTILATOR SETTINGS WELL A THIS TIME. NO CHANGES. NO SOB NOTED AT THIS TIME. WILL CONTINUE TO MONITOR.
--- NOTE | 2019-07-25 04:00 | NUR ---
AM CARE DONE. TRACH CARE DONE. ORAL CARE DONE. CLEANED G-TUBE SITE & DRSG APPLIED.
[2019-07-25] MEDS: AMIKACIN 300 MG in IV DEXTROSE 5% 100 ML IV SCH (04:02)
[2019-07-25 05:06] LABS: BASOPHILS # (AUTO) 0.1 K/uL (0.0-8.0); BASOPHILS % (AUTO) 0.6 % (0.0-2.0); EOSINOPHILS # (AUTO) 0.1 K/uL (0.0-0.7); EOSINOPHILS % (AUTO) 1.2 % (0.0-7.0); HEMATOCRIT 25.7 % (31.2-41.9); HEMOGLOBIN 8.4 g/dL (10.9-14.3); LYMPHOCYTES # (AUTO) 0.6 K/uL (20.0-40.0); LYMPHOCYTES % (AUTO) 5.3 % (20.5-51.5); MEAN CORPUSCULAR HEMOGLOBIN 27.8 uug (24.7-32.8); MEAN CORPUSCULAR HGB CONC 33 g/dL (32.3-35.6); MEAN CORPUSCULAR VOLUME 85.2 fL (75.5-95.3); MONOCYTES # (AUTO) 0.5 K/uL (2.0-10.0); MONOCYTES % (AUTO) 4.5 % (0.0-11.0); NEUTROPHILS # (AUTO) 10.7 K/uL (1.8-8.9); NEUTROPHILS % (AUTO) 88.4 % (38.5-71.5); PLATELET COUNT (AUTO) 87 K/uL (179-408); RED BLOOD CELL COUNT(AUTO) 3.01 MIL/uL (3.63-4.92); WHITE BLOOD COUNT (AUTO) 12.1 K/uL (3.8-11.8)
[2019-07-25 05:17] LABS: CREATININE 1.7 mg/dL (0.6-1.3); MAGNESIUM 1.7 mg/dL (1.8-2.4); PHOSPHOROUS 2.6 mg/dL (2.5-4.9); POTASSIUM 3.1 mmol/L (3.5-5.1)
[2019-07-25] MEDS: DIAZEPAM 10 MG TABLET GT SCH ×2 (07:50→20:45)
[2019-07-25] MEDS: ASCORBIC ACID 500 MG TABLET GT SCH ×2 (07:50→20:45)
[2019-07-25] MEDS: ASPIRIN 81 MG TAB.CHEW GT SCH (07:50)
[2019-07-25] MEDS: AMIODARONE HCL 200 MG TABLET PEG SCH ×2 (07:50→20:45)
[2019-07-25] MEDS: MULTIVITAMINS,THERAPEUTIC TABLET GT SCH (07:50)
[2019-07-25] MEDS: LEVETIRACETAM 500 MG/5 ML LIQUID UDC GT SCH ×2 (07:51→20:42)
[2019-07-25 08:04] LABS: ABG PCO2 34.2 mmHg (35.0-45.0); ABG PH 7.261 (7.350-7.450); ABG SITE RIGHT RADIAL; ABG TOTAL HEMOGLOBIN 11.2 G/dL (12.0-16.0); COHb 0.8 % (0.5-1.5); MetHb 0.3 % (0.0-1.5); O2Hb 98.5 % (94.0-97.0); VENT MODE VENT - A/C; VT, ABG 500 mL
[2019-07-25] MEDS: PHENOBARBITAL 32.4 MG TABLET GT SCH ×2 (08:13→20:45)
--- NOTE | 2019-07-25 08:48 | NUR ---
Dr. Zamudio here to see pt. Full report given. New orders received. Pt to be restarted on g-tube feeding.
[2019-07-25] MEDS: IV NS 1000 ML 1,000 ML IV PRN ×2 (09:08→22:54)
[2019-07-25] MEDS: VITAL AF 1.2 1,000 ML LIQUID GT PRN (09:53)
--- NOTE | 2019-07-25 10:00 | NUR ---
Dr. Lora here to see pt. Full report given. New orders received.
[2019-07-25] MEDS ORDERED: MAGNESIUM SULFATE/D5W 100 ML IV SCH (11:00)
[2019-07-25] MEDS ORDERED: POTASSIUM CHLORIDE 20 MEQ POWDER PACKET GT ONE (11:00)
--- NOTE | 2019-07-25 11:20 | NUR ---
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 Trough pending 07/25 @0330: 18.4 Peak pending 07/25 @0500: 29.5 A/P: Will hold Amikacin dose for today. Plan to draw amikacin random level tomorrow with am labs. pharmacy shall review the level in & re-dose. Will follow
[2019-07-25] MEDS: NOREPINEPHRINE BITARTRATE 16 MG in IV DEXTROSE 5% 500 ML IV PRN (13:00)
--- NOTE | 2019-07-25 20:00 | NUR ---
Gastric residual 300 cc; holding feeding 4 hours.
--- NOTE | 2019-07-25 21:25 | NUR ---
RECEIVED PT ON CONTINUOUS VENT AC 22 VT 500 PEEP 5 FIO2 50%. TRACH IN PLACED AND SECURED WITH TRACH TIE. SUCTION PRN. VENT CHECKED, ALARMS WORKING WELL AND AUDIBLE. NO DISTRESS NOTED AT THIS TIME. WILL CONTINUE TO MONITOR.
[2019-07-26] VITALS (70 sets, daily range): BP systolic 83–148; BP diastolic 56–91
--- NOTE | 2019-07-26 00:01 | NUR ---
Gastric residual 300 cc; Con't., holding feeding 4 hours.
[2019-07-26 05:24] LABS: BASOPHILS % (AUTO) 0.2 % (0.0-2.0); EOSINOPHILS # (AUTO) 0.2 K/uL (0.0-0.7); EOSINOPHILS % (AUTO) 1.7 % (0.0-7.0); HEMATOCRIT 24.8 % (31.2-41.9); HEMOGLOBIN 8.2 g/dL (10.9-14.3); LYMPHOCYTES # (AUTO) 0.7 K/uL (20.0-40.0); MEAN CORPUSCULAR HEMOGLOBIN 27.8 uug (24.7-32.8); MEAN CORPUSCULAR HGB CONC 33 g/dL (32.3-35.6); MEAN CORPUSCULAR VOLUME 84.8 fL (75.5-95.3); MONOCYTES # (AUTO) 0.7 K/uL (2.0-10.0); MONOCYTES % (AUTO) 6.1 % (0.0-11.0); NEUTROPHILS # (AUTO) 9.8 K/uL (1.8-8.9); PLATELET COUNT (AUTO) 103 K/uL (179-408); RED BLOOD CELL COUNT(AUTO) 2.93 MIL/uL (3.63-4.92); WHITE BLOOD COUNT (AUTO) 11.5 K/uL (3.8-11.8)
[2019-07-26 05:33] LABS: CREATININE 1.3 mg/dL (0.6-1.3); MAGNESIUM 1.9 mg/dL (1.8-2.4); PHOSPHOROUS 2.4 mg/dL (2.5-4.9); POTASSIUM 3.6 mmol/L (3.5-5.1)
[2019-07-26 06:26] LABS: BAND % (MANUAL) 7 % (0-10); EOSINOPHILS % (MANUAL) 2 % (0-8); LYMPHOCYTES % (MANUAL) 6 % (20-40); MONOCYTES % (MANUAL) 6 % (2-10); NEUTROPHILS % (MANUAL) 79 % (42-75)
[2019-07-26] MEDS: NOREPINEPHRINE BITARTRATE 16 MG in IV DEXTROSE 5% 500 ML IV PRN ×2 (06:44→17:52)
[2019-07-26] MEDS: AMIODARONE HCL 200 MG TABLET PEG SCH ×2 (07:52→21:34)
[2019-07-26] MEDS: ASCORBIC ACID 500 MG TABLET GT SCH ×2 (07:52→21:33)
[2019-07-26] MEDS: ASPIRIN 81 MG TAB.CHEW GT SCH (07:52)
[2019-07-26] MEDS: MULTIVITAMINS,THERAPEUTIC TABLET GT SCH (07:52)
[2019-07-26] MEDS: LEVETIRACETAM 500 MG/5 ML LIQUID UDC GT SCH ×2 (07:53→21:31)
[2019-07-26] MEDS: DIAZEPAM 10 MG TABLET GT SCH ×2 (07:53→21:33)
[2019-07-26 08:02] LABS: ABG BASE EXCESS -8.5 mmol/L; ABG HCO3 16.6 mmol/L; ABG PCO2 32.4 mmHg (35.0-45.0); ABG PH 7.327 (7.350-7.450); ABG PO2 120.3 mmHg (75.0-100.0); ABG SITE RIGHT RADIAL; ABG TOTAL HEMOGLOBIN 8.9 G/dL (12.0-16.0); COHb 1.1 % (0.5-1.5); MetHb 0.4 % (0.0-1.5); O2Hb 97.2 % (94.0-97.0); VENT MODE VENT - A/C 22; VT, ABG 500 mL
[2019-07-26] MEDS: PHENOBARBITAL 32.4 MG TABLET GT SCH ×2 (08:49→21:32)
--- NOTE | 2019-07-26 09:49 | NUR ---
Dr. Lora here to see pt. Full report given. New orders received.
[2019-07-26] MEDS: IV NS 1000 ML 1,000 ML IV PRN ×2 (11:06→23:37)
--- NOTE | 2019-07-26 13:31 | NUR ---
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 Trough pending 07/25 @0330: 18.4 Peak pending 07/25 @0500: 29.5 Random today at 0456: 15.0 A/P: Will hold Amikacin dose for today as well per random level. Plan to draw amikacin random level again tomorrow with am labs. pharmacy shall review the level in & re-dose. Will follow
[2019-07-26] MEDS ORDERED: Z GUARD REMEDY PASTE 57 GM TUBE TOP PRN (14:00)
[2019-07-26] MEDS ORDERED: NEPRO 1000 ML GT PRN (15:15)
[2019-07-26] MEDS ORDERED: NEUTRA PHOS PACKET GT ONE (16:30)
--- NOTE | 2019-07-26 18:27 | NUR ---
pt rec'd on blackmon vent, vent'd via trach sh8dct, secured with trach tie, pt tolerating vent settings well, no distress noted. no weaning for this am, abg's to be drawn. vent alarms audible checked and reset, bvm at bedside.
[2019-07-27] VITALS (86 sets, daily range): BP systolic 90–141; BP diastolic 56–100
[2019-07-27 05:01] LABS: BASOPHILS % (AUTO) 0.3 % (0.0-2.0); EOSINOPHILS # (AUTO) 0.2 K/uL (0.0-0.7); EOSINOPHILS % (AUTO) 2.2 % (0.0-7.0); HEMATOCRIT 25.1 % (31.2-41.9); HEMOGLOBIN 8.4 g/dL (10.9-14.3); LYMPHOCYTES # (AUTO) 0.8 K/uL (20.0-40.0); LYMPHOCYTES % (AUTO) 7.2 % (20.5-51.5); MEAN CORPUSCULAR HGB CONC 33 g/dL (32.3-35.6); MEAN CORPUSCULAR VOLUME 84.1 fL (75.5-95.3); MONOCYTES # (AUTO) 0.8 K/uL (2.0-10.0); MONOCYTES % (AUTO) 6.6 % (0.0-11.0); NEUTROPHILS # (AUTO) 9.7 K/uL (1.8-8.9); NEUTROPHILS % (AUTO) 83.7 % (38.5-71.5); PLATELET COUNT (AUTO) 141 K/uL (179-408); RED BLOOD CELL COUNT(AUTO) 2.99 MIL/uL (3.63-4.92); WHITE BLOOD COUNT (AUTO) 11.6 K/uL (3.8-11.8)
[2019-07-27 05:10] LABS: MAGNESIUM 1.5 mg/dL (1.8-2.4); PHOSPHOROUS 2.5 mg/dL (2.5-4.9); POTASSIUM 3.1 mmol/L (3.5-5.1)
--- NOTE | 2019-07-27 05:28 | NUR ---
skin intact. Addendum: 07/27/19 at 0529 by THOMAS THOMAS RN Amended: Links added.
--- NOTE | 2019-07-27 06:22 | NUR ---
TF stopped. tolerated well. BP stable Levophed drip titrated to keep SBP > 90. diuresing large amt yellow urine. no neuro changes.
--- NOTE | 2019-07-27 07:15 | NUR ---
RECEIVED PT ON CONTINUOUS VENT AC 22 VT 500 PEEP 5 FIO2 30%. TRACH IN PLACED AND SECURED WITH TRACH TIE. SUCTION PRN. VENT CHECKED, ALARMS WORKING WELL AND AUDIBLE. NO DISTRESS NOTED AT THIS TIME. WILL CONTINUE TO MONITOR.
[2019-07-27 07:51] LABS: ABG BASE EXCESS -6.1 mmol/L; ABG HCO3 18.2 mmol/L; ABG PCO2 31.4 mmHg (35.0-45.0); ABG PH 7.381 (7.350-7.450); ABG PO2 99.5 mmHg (75.0-100.0); ABG SITE RIGHT RADIAL; ABG TOTAL HEMOGLOBIN 8.9 G/dL (12.0-16.0); COHb 0.6 % (0.5-1.5); MetHb 0.2 % (0.0-1.5); O2Hb 96.9 % (94.0-97.0); VENT MODE VENT - A/C; VT, ABG 500 mL
[2019-07-27] MEDS: ASCORBIC ACID 500 MG TABLET GT SCH ×2 (08:37→20:45)
[2019-07-27] MEDS: DIAZEPAM 10 MG TABLET GT SCH ×2 (08:37→20:45)
[2019-07-27] MEDS: ASPIRIN 81 MG TAB.CHEW GT SCH (08:37)
[2019-07-27] MEDS: MULTIVITAMINS,THERAPEUTIC TABLET GT SCH (08:37)
[2019-07-27] MEDS: AMIODARONE HCL 200 MG TABLET PEG SCH ×2 (08:38→20:46)
[2019-07-27] MEDS: LEVETIRACETAM 500 MG/5 ML LIQUID UDC GT SCH ×2 (08:38→20:47)
[2019-07-27] MEDS: NOREPINEPHRINE BITARTRATE 16 MG in IV DEXTROSE 5% 500 ML IV PRN ×2 (09:22→18:59)
[2019-07-27] MEDS: PHENOBARBITAL 32.4 MG TABLET GT SCH ×2 (09:34→20:45)
--- NOTE | 2019-07-27 10:00 | NUR ---
seen by dr Robles orders received Addendum: 07/27/19 at 1458 by JONAS PRATER RN Amended: Tasha added. Addendum: 07/27/19 at 1459 by JONAS PRATER RN Amended: Tasha added. Addendum: 07/27/19 at 1502 by JONAS PRATER RN Amended: Links added.
[2019-07-27] MEDS: VITAL AF 1.2 1,000 ML LIQUID GT PRN (11:28)
--- NOTE | 2019-07-27 12:00 | NUR ---
mag sulfate 2 gms given IV for mag of 1.5. klor 40meq given via gt for k 3.1 Addendum: 07/27/19 at 1502 by JONAS PRATER RN Amended: Links added.
[2019-07-27] MEDS: MAGNESIUM SULFATE/D5W 100 ML IV SCH ×2 (12:19→13:31)
[2019-07-27] MEDS: POTASSIUM CHLORIDE 20 MEQ POWDER PACKET GT SCH ×2 (12:19→17:37)
[2019-07-27] MEDS: IV NS 1000 ML 1,000 ML IV PRN (12:50)
--- NOTE | 2019-07-27 14:00 | NUR ---
seen by dr lugowith no orders Addendum: 07/27/19 at 1459 by JONAS PRATER RN Amended: Tasha added. Addendum: 07/27/19 at 1502 by JONAS PRATER RN Amended: Tasha added.
--- NOTE | 2019-07-27 14:09 | NUR ---
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 Trough pending 07/25 @0330: 18.4 Peak pending 07/25 @0500: 29.5 Random on 07/26 at 0456: 15.0 Random on 07/27 at 0600: 7.1 Resp culture + kleb pneumo A/P: Since Amikacin level is 7.1 mcg/ml today, will give amikacin 400mg IVPB x1 today at 1500. Plan to check amikacin random level on 07/29 with am labs for further dosing. Will follow
[2019-07-27] MEDS ORDERED: AMIKACIN 400 MG in IV DEXTROSE 5% 100 ML IV ONE (15:00)
--- NOTE | 2019-07-27 16:00 | NUR ---
had 1 episode of diarrheic stools at 1200 and again at 1600. jeny care done . turned to sides Addendum: 07/27/19 at 1753 by JONAS PRATER RN Amended: Links added.
--- NOTE | 2019-07-27 19:21 | NUR ---
report to Gilberto RN Addendum: 07/27/19 at 1921 by JONAS PRATER RN Amended: Links added.
--- NOTE | 2019-07-27 19:30 | NUR ---
Report received. Patient admitted 07/22 DX: Septic Shock, UTI. On contact isolation for ESBL- blood and urine. With trache to vent: Settings: AC=22, FIO2=30%, HH=640qk, PEEP=5 cm. Saturations 99=-100%. Opens eyes spontaneously, doesn't focus or follow any commands. Extremities flaccid and edematous. GT feedings on hold; obhptisde=[id number]. Suctioned for large trache and oral secretions. With good cough reflex. Assessment completed. Addendum: 07/27/19 at 2327 by DARCY GARZA RN Amended: Links added. Addendum: 07/27/19 at 2330 by DARCY GARZA RN Amended: Links added. Addendum: 07/27/19 at 2332 by DARCY GARZA RN Amended: Links added. Addendum: 07/27/19 at 2334 by DARCY GARZA RN Amended: Links added. Addendum: 07/27/19 at 2335 by DARCY GARZA RN Amended: Links added. Addendum: 07/27/19 at 2335 by DARCY GARZA RN Amended: Links added. Addendum: 07/27/19 at 2335 by DARCY GARZA RN Amended: Links added. Addendum: 07/27/19 at 2335 by DARCY GARZA RN Amended: Links added. Addendum: 07/27/19 at 7715 by DARCY GARZA RN Amended: Links added.
--- NOTE | 2019-07-27 19:45 | NUR ---
Seen by Kristine RUIZ; informed of diarrhea and stool sent for C. diff. Cleaned for a small liquid brown BM. Skin care provided. Addendum: 07/27/19 at 2330 by DARCY GARZA RN Amended: Links added. Addendum: 07/27/19 at 2332 by DARCY GARZA RN Amended: Links added. Addendum: 07/27/19 at 2334 by DARCY GARZA RN Amended: Links added. Addendum: 07/27/19 at 2335 by DARCY GARZA RN Amended: Links added. Addendum: 07/27/19 at 2335 by DARCY GARZA RN Amended: Links added. Addendum: 07/27/19 at 2335 by DARCY GARZA RN Amended: Links added. Addendum: 07/27/19 at 2335 by DARCY GARZA RN Amended: Links added. Addendum: 07/27/19 at 2335 by DARCY GARZA RN Amended: Links added.
[2019-07-27] MEDS: Z GUARD REMEDY PASTE 57 GM TUBE TOP PRN (20:46)
--- NOTE | 2019-07-27 21:00 | NUR ---
Cleaned for another liquid brown stools. Spoke to Dr. Zamudio. Order for Flexi seal received. Flexi seal inserted without problems. PM care rendered; skin care provided. Addendum: 07/27/19 at 2332 by DARCY GARZA RN Amended: Links added. Addendum: 07/27/19 at 2334 by DARCY GARZA RN Amended: Links added. Addendum: 07/27/19 at 2335 by DARCY TAECHARATKIJ RN Amended: Links added. Addendum: 07/27/19 at 2335 by DARCY GARZA RN Amended: Links added. Addendum: 07/27/19 at 2335 by ADRCY GARZA RN Amended: Links added. Addendum: 07/27/19 at 2335 by DARCY GARZA RN Amended: Links added. Addendum: 07/27/19 at 2335 by DARCY GARZA RN Amended: Links added.
--- NOTE | 2019-07-27 21:45 | NUR ---
Dr. Zamudio visited. Updated of patient's condition. GT feedings still on hold; qetggxzil=853af. Addendum: 07/27/19 at 2334 by DARCY GARZA RN Amended: Links added. Addendum: 07/27/19 at 2335 by DARCY GARZA RN Amended: Links added. Addendum: 07/27/19 at 2335 by DARCY GARZA RN Amended: Links added. Addendum: 07/27/19 at 2335 by DARCY GARZA RN Amended: Links added. Addendum: 07/27/19 at 2335 by DARCY GARZA RN Amended: Links added. Addendum: 07/27/19 at 1845 by DARCY GARZA RN Amended: Links added.
--- NOTE | 2019-07-27 23:45 | NUR ---
GT feedings restarted at 20 ml/H; will monitor for residuals.
[2019-07-28] VITALS (54 sets, daily range): BP systolic 82–153; BP diastolic 48–97
--- NOTE | 2019-07-28 | NUR ---
Levophed drip titrated down as BP permits, now at 1 mcg/min. Addendum: 07/28/19 at 0116 by DARCY GARZA RN Amended: Links added.
[2019-07-28] MEDS: IV NS 1000 ML 1,000 ML IV PRN ×2 (01:07→13:03)
--- NOTE | 2019-07-28 07:30 | NUR ---
report received from Gilberto GIL 58 yr old female was admitted on 07/22/19 for rapidatrial fib and septic shock from 4th floor subacute. has atrach to ventilator, ac 22, tv 500, fio2 30% peep 5cm. PEG intact. is having tube fdg at 25 ml/hr . has diarrhea. flexiseal rectal tube intact. voss cathter intact. urine largeamount. ekg is sinus rhythym. bp stable. off levophed. iv NS infusing at 80 ml/hr via left sbclavian central line.scd inplace via lower extremities Addendum: 07/28/19 at 0949 by JONAS PRATER RN Amended: Links added.
[2019-07-28 08:03] LABS: ABG BASE EXCESS -4.7 mmol/L; ABG HCO3 18.7 mmol/L; ABG PCO2 28.1 mmHg (35.0-45.0); ABG PH 7.442 (7.350-7.450); ABG PO2 93.5 mmHg (75.0-100.0); ABG SITE RIGHT RADIAL; ABG TOTAL HEMOGLOBIN 7.6 G/dL (12.0-16.0); MetHb 0.3 % (0.0-1.5); O2Hb 96.1 % (94.0-97.0); VENT MODE VENT - A/C; VT, ABG 314 mL
[2019-07-28] MEDS: ASCORBIC ACID 500 MG TABLET GT SCH ×2 (08:26→21:11)
[2019-07-28] MEDS: MULTIVITAMINS,THERAPEUTIC TABLET GT SCH (08:26)
[2019-07-28] MEDS: DIAZEPAM 10 MG TABLET GT SCH ×2 (08:26→21:11)
[2019-07-28] MEDS: AMIODARONE HCL 200 MG TABLET PEG SCH ×2 (08:27→21:11)
[2019-07-28] MEDS: ASPIRIN 81 MG TAB.CHEW GT SCH (08:29)
[2019-07-28] MEDS: LEVETIRACETAM 500 MG/5 ML LIQUID UDC GT SCH ×2 (08:31→21:12)
[2019-07-28] MEDS: PHENOBARBITAL 32.4 MG TABLET GT SCH ×2 (08:37→21:11)
[2019-07-28 08:56] LABS: CREATININE 0.7 mg/dL (0.6-1.3); MAGNESIUM 1.7 mg/dL (1.8-2.4); PHOSPHOROUS 2.5 mg/dL (2.5-4.9); POTASSIUM 3.4 mmol/L (3.5-5.1)
--- NOTE | 2019-07-28 09:00 | NUR ---
tube fdg off for now and will resume at 11am at 30ml/hr Addendum: 07/28/19 at 1417 by JONAS PRATER RN Amended: Links added. Addendum: 07/28/19 at 1427 by JONAS PRATER RN Amended: Links added.
--- NOTE | 2019-07-28 10:04 | NUR ---
seen by dr Powers, condition report given . no orders Addendum: 07/28/19 at 1005 by JONAS PRATER RN Amended: Links added.
--- NOTE | 2019-07-28 10:11 | NUR ---
seen by dr Lora, orders received. AC rate down to 16/min. magnesium and klor given as replacements for k.3.4 and mag 1.7 Addendum: 07/28/19 at 1346 by JONAS PRATER RN Amended: Links added. Addendum: 07/28/19 at 1348 by JONAS PRATER RN Amended: Links added.
[2019-07-28] MEDS: MAGNESIUM SULFATE/D5W 100 ML IV SCH ×2 (10:37→11:33)
[2019-07-28] MEDS: VITAL AF 1.2 1,000 ML LIQUID GT PRN (10:37)
[2019-07-28] MEDS: POTASSIUM CHLORIDE 20 MEQ POWDER PACKET GT SCH ×2 (10:37→16:58)
--- NOTE | 2019-07-28 11:39 | NUR ---
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 Trough pending 07/25 @0330: 18.4 Peak pending 07/25 @0500: 29.5 Random on 07/26 at 0456: 15.0 Random on 07/27 at 0600: 7.1 Resp culture + kleb pneumo A/P: Since srcr has dropped, will start amikacin 400mg IV q24h . 2nd dose today at 1500. Plan to check amikacin peak & trough at steady state (not yet ordered) . Will follow
[2019-07-28 12:05] LABS: BILIRUBIN,DIRECT 0.2 mg/dL (0.0-0.2); BILIRUBIN,TOTAL 0.4 mg/dL (0.2-1.0)
--- NOTE | 2019-07-28 12:30 | NUR ---
levophed drip resumed at 2 mcg/min and titrated up to keep sbp >90 Addendum: 07/28/19 at 1348 by JONAS PRATER RN Amended: Links added.
[2019-07-28] MEDS ORDERED: NOREPINEPHRINE BITARTRATE 16 MG in IV DEXTROSE 5% 500 ML IV PRN (13:00)
--- NOTE | 2019-07-28 14:22 | NUR ---
call from Microbiology. patient is positive for cdiff. will inform ID Addendum: 07/28/19 at 1427 by JONAS PRATER RN Amended: Links added.
[2019-07-28] MEDS: AMIKACIN 400 MG in IV DEXTROSE 5% 100 ML IV SCH (14:47)
--- NOTE | 2019-07-28 15:00 | NUR ---
Contact isolation maintained and adde enteric isolation for cdiff. Addendum: 07/28/19 at 1523 by JONAS PRATER RN Amended: Links added.
--- NOTE | 2019-07-28 15:18 | NUR ---
RECEIVED PT STABLE ON CURRENT SETTINGS: AC 22, VT 500, PEEP 5 AND FIO2 30%. ABG WAS DONE AT 0800 [address] RESULT [address] DR[address] TOLBERT, HE ORDERED RATE TO BE LOWERED TO 16. PT REMAIN STABLE WITH SATURATION OF 99-100.
--- NOTE | 2019-07-28 16:15 | NUR ---
seen by Dr Tripathi. condition report given including low H/H. no orders received Addendum: 07/28/19 at 1855 by JONAS PRATER RN Amended: Links added.
--- NOTE | 2019-07-28 16:30 | NUR ---
seen by Randolph Munoz NP for Neurology. no changes in medication Addendum: 07/28/19 at 1853 by JONAS PRATER RN Amended: Links added. Addendum: 07/28/19 at 1855 by JONAS PRATER RN Amended: Links added.
[2019-07-28] MEDS: VANCOMYCIN FOR PO/GT/NG USE GT SCH (16:58)
[2019-07-28] MEDS ORDERED: NOREPINEPHRINE BITARTRATE 8 MG in IV DEXTROSE 5% 500 ML IV PRN (18:30)
--- NOTE | 2019-07-28 20:00 | NUR ---
Report received. Patient with trache to vent; sat 99-100%. On Levophed drip for BP support.
--- NOTE | 2019-07-28 22:30 | NUR ---
Levophed drip dc'd. BPs monitored closely.
[2019-07-29] VITALS (28 sets, daily range): BP systolic 104–166; BP diastolic 56–99
[2019-07-29] MEDS: VANCOMYCIN FOR PO/GT/NG USE GT SCH ×5 (00:10→23:21)
[2019-07-29] MEDS: IV NS 1000 ML 1,000 ML IV PRN (01:36)
--- NOTE | 2019-07-29 03:20 | NUR ---
RECEIVED PT TRACHED ON A BROCK VENT WITH THE FOLLOWING SETTINGS THAT ARE CHARTED ON THE MECHANICAL VENT NOTES. PT HAS A SIZE #8 SHILEY TRACH TUBE AND IT IS SECURED WITH TRACH TIES. ORAL AND TRACH CARE DONE. HME CHANGED. AMBU BAG IS BY BEDSIDE. VENT ALARMS ARE ON AND AUDIBLE. VENT IS PLUGGED IN THE RED OUTLET. PT IS TOLERATING CURRENT VENT SETTINGS WELL AT THIS TIME. NO CHANGES. NO SOB NOTED AT THIS TIME. WILL CONTINUE TO MONITOR.
[2019-07-29 05:02] LABS: BASOPHILS % (AUTO) 0.3 % (0.0-2.0); LYMPHOCYTES # (AUTO) 0.9 K/uL (20.0-40.0); MEAN CORPUSCULAR HGB CONC 34 g/dL (32.3-35.6); MONOCYTES # (AUTO) 0.5 K/uL (2.0-10.0)
[2019-07-29 05:04] LABS: EOSINOPHILS # (AUTO) 0.2 K/uL (0.0-0.7); EOSINOPHILS % (AUTO) 3.2 % (0.0-7.0); LYMPHOCYTES % (AUTO) 13.4 % (20.5-51.5); MEAN CORPUSCULAR HEMOGLOBIN 28.3 uug (24.7-32.8); MEAN CORPUSCULAR VOLUME 84.3 fL (75.5-95.3); MONOCYTES % (AUTO) 7.7 % (0.0-11.0); NEUTROPHILS # (AUTO) 5.2 K/uL (1.8-8.9); NEUTROPHILS % (AUTO) 75.4 % (38.5-71.5); PLATELET COUNT (AUTO) 156 K/uL (179-408); WHITE BLOOD COUNT (AUTO) 6.9 K/uL (3.8-11.8)
[2019-07-29 05:11] LABS: CREATININE 0.5 mg/dL (0.6-1.3); MAGNESIUM 1.6 mg/dL (1.8-2.4); PHOSPHOROUS 3.3 mg/dL (2.5-4.9); POTASSIUM 4.5 mmol/L (3.5-5.1)
[2019-07-29] MEDS: Z GUARD REMEDY PASTE 57 GM TUBE TOP PRN (05:39)
[2019-07-29 06:15] LABS: HEMATOCRIT 20.6 % (31.2-41.9); RED BLOOD CELL COUNT(AUTO) 2.44 MIL/uL (3.63-4.92)
[2019-07-29 06:16] LABS: HEMOGLOBIN 6.9 g/dL (10.9-14.3)
--- NOTE | 2019-07-29 06:30 | NUR ---
Dr. Ann informed of low H/H; orders received. Patient stable on current vent settings. OFF Levophed drip since 2229; BPs stable.
--- NOTE | 2019-07-29 07:40 | NUR ---
pt rec'd on blackmon vent, vent'd via trach sh8dct, secured with trach tie, pt tolerating vent settings well, no distress noted. no weaning for this am. vent alarms audible checked and reset, bvm at bedside.
[2019-07-29] MEDS: ASPIRIN 81 MG TAB.CHEW GT SCH (07:59)
[2019-07-29] MEDS: ASCORBIC ACID 500 MG TABLET GT SCH ×2 (08:00→20:26)
[2019-07-29] MEDS: MULTIVITAMINS,THERAPEUTIC TABLET GT SCH (08:00)
[2019-07-29] MEDS: DIAZEPAM 10 MG TABLET GT SCH (08:00)
[2019-07-29] MEDS: AMIODARONE HCL 200 MG TABLET PEG SCH ×2 (08:02→20:26)
[2019-07-29 08:07] LABS: ABG BASE EXCESS -3.4 mmol/L; ABG HCO3 21.3 mmol/L; ABG PCO2 36.6 mmHg (35.0-45.0); ABG PH 7.382 (7.350-7.450); ABG PO2 121.2 mmHg (75.0-100.0); ABG SITE RIGHT RADIAL; ABG TOTAL HEMOGLOBIN 9.1 G/dL (12.0-16.0); COHb 0.4 % (0.5-1.5); MetHb 0.2 % (0.0-1.5); O2Hb 97.8 % (94.0-97.0); VENT MODE VENT - A/C 16; VT, ABG 500 mL
[2019-07-29] MEDS: LEVETIRACETAM 500 MG/5 ML LIQUID UDC GT SCH ×2 (08:17→20:25)
[2019-07-29] MEDS: PHENOBARBITAL 32.4 MG TABLET GT SCH ×2 (08:18→20:25)
--- NOTE | 2019-07-29 08:54 | NUR ---
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 Trough pending 07/25 @0330: 18.4 Peak pending 07/25 @0500: 29.5 Random on 07/26 at 0456: 15.0 Random on 07/27 at 0600: 7.1 Resp culture + kleb pneumo A/P: Will continue same dose of amikacin 400mg IV q24h for today . 3rd dose today at 1500. Plan to check amikacin peak & trough at steady state (trough ordered for 07/30 at 1430 & peak ordered for 07/30 at 1600) . Will follow
[2019-07-29] MEDS ORDERED: FUROSEMIDE 40 MG/4 ML VIAL IV ONE (09:00)
--- NOTE | 2019-07-29 09:44 | NUR ---
Pulmonary services, Dr. Lora in the unit to see and examine patient, full report given see order hx.
[2019-07-29] MEDS: VITAL AF 1.2 1,000 ML LIQUID GT PRN (10:34)
[2019-07-29] MEDS: MAGNESIUM SULFATE/D5W 100 ML IV SCH ×2 (10:37→11:48)
--- NOTE | 2019-07-29 12:00 | NUR ---
Cardiology services,, Dunia Hill. in the unit to see and examine patient, full report given and orders to continue care plan received.
[2019-07-29] MEDS: AMIKACIN 400 MG in IV DEXTROSE 5% 100 ML IV SCH (14:47)
--- NOTE | 2019-07-29 15:15 | NUR ---
Attending physician Dr. Tripathi in the unit to see and examine patient, report given orders to continue with care plan received.
--- NOTE | 2019-07-29 15:18 | NUR ---
Neurology services, Dr. Be in the unit to see and examine patient, report given orders to tylor castro received.
[2019-07-29] MEDS: IV NORMAL SALINE 250 ML IV PRN (18:39)
--- NOTE | 2019-07-29 19:00 | NUR ---
SARA LENTZ (ID) came and examined patient ,with no new orders ,continue with isolation ECOLI /ESBL,ON ANTX:amikacin /vanco PO /via peg.
--- NOTE | 2019-07-29 19:42 | NUR ---
Received pt on Cordero ventilator with the following settings of AC-16, Vt-500, PEEP+5, FIO2-30%, trached with Shiley#8 DCT trach, which is in the place and secure. No s/s of respiratory distress noted. Airway care done, pt responded to physical stimuli. HME changed. Resus. bag and back up trach at bedside. Vent and alarms checked and reset.
--- NOTE | 2019-07-29 20:30 | NUR ---
due medication given and scan medication .patient in bed ,open eyes spontaneously but doesn't follow commands, extremities upper and lower flaccid only withdraws pain . turned and reposition patient ,offloaded back and heels with pillows .hob up, suction via trach and via mouth ,tube feedings in progress on vital AF at 55 ml.hr checked residual at 10 ml , flushed peg and dressing CDI .FLEXISEAL intact and with liquid brownish stool . f/c to bsd. afebrile 98.8 orally .continue to monitor v/s and levels of comfort .
--- NOTE | 2019-07-29 20:53 | NUR ---
collected stool for OB send to the lab .
[2019-07-29 22:26] LABS: *OCCULT BLOOD STOOL POSITIVE (NEGATIVE)
--- NOTE | 2019-07-29 23:00 | NUR ---
called [facility] and spoked to alberto cuadra made aware about pts bp >150 to 160 mm/hg ,informed given Tylenol c/o low grade temp 99.0 orally and facial grimace (PAIN ),to continue to monitor bp.
[2019-07-29] MEDS: ACETAMINOPHEN 650 MG/20.3 ML LIQUID UDC GT PRN (23:40)
[2019-07-30] VITALS (23 sets, daily range): BP systolic 95–141; BP diastolic 58–91
--- NOTE | 2019-07-30 | NUR ---
bp 129/82 hr 98 rr 20 saturation 97.patient in bed resting v/s wnl . no s/s/ of pain and no active bleeding noted .
--- NOTE | 2019-07-30 00:11 | NUR ---
called [facility] service spoked with doctor :TENISHA informed about positive OB in the stool with order for pantoprazole 40 mg ivpq12 and to endorse in am for GI CONSULT .
[2019-07-30 05:11] LABS: BASOPHILS % (AUTO) 0.5 % (0.0-2.0); EOSINOPHILS # (AUTO) 0.2 K/uL (0.0-0.7); EOSINOPHILS % (AUTO) 3.1 % (0.0-7.0); HEMATOCRIT 24.1 % (31.2-41.9); HEMOGLOBIN 8.3 g/dL (10.9-14.3); LYMPHOCYTES # (AUTO) 0.9 K/uL (20.0-40.0); LYMPHOCYTES % (AUTO) 12.1 % (20.5-51.5); MEAN CORPUSCULAR HEMOGLOBIN 29.4 uug (24.7-32.8); MEAN CORPUSCULAR HGB CONC 34 g/dL (32.3-35.6); MEAN CORPUSCULAR VOLUME 85.3 fL (75.5-95.3); MONOCYTES # (AUTO) 0.5 K/uL (2.0-10.0); MONOCYTES % (AUTO) 6.8 % (0.0-11.0); NEUTROPHILS # (AUTO) 5.5 K/uL (1.8-8.9); NEUTROPHILS % (AUTO) 77.5 % (38.5-71.5); PLATELET COUNT (AUTO) 191 K/uL (179-408); RED BLOOD CELL COUNT(AUTO) 2.82 MIL/uL (3.63-4.92); WHITE BLOOD COUNT (AUTO) 7.1 K/uL (3.8-11.8)
[2019-07-30 05:25] LABS: CREATININE 0.5 mg/dL (0.6-1.3); MAGNESIUM 1.5 mg/dL (1.8-2.4); PHOSPHOROUS 4.1 mg/dL (2.5-4.9); POTASSIUM 4.3 mmol/L (3.5-5.1)
[2019-07-30 05:55] LABS: LYMPHOCYTES % (MANUAL) 10 % (20-40); MONOCYTES % (MANUAL) 2 % (2-10); MYELOCYTES % 1 % (0-0); NEUTROPHILS % (MANUAL) 87 % (42-75)
[2019-07-30] MEDS: VANCOMYCIN FOR PO/GT/NG USE GT SCH ×4 (06:00→23:43)
--- NOTE | 2019-07-30 07:52 | NUR ---
PATIENT RECEIVED ON BROCK VENTILATOR - CURRENT SETTINGS OF AC 16, 500, PEEP +5, FIO2 30%. PT IS TRACHED WITH A SHILEY #8 TRACH. TRACH IS PATENT AND SECURED VIA FOAM TRACH TIES. HME CHANGED NEEDED. SUCTIONED SMALL AMOUNT OF WHITE, THIN SECRETIONS. VENT ALARMS CHECKED, ARE ON AND FUNCTIONING PROPERLY. VENT IS PLUGGED INTO RED OUTLET. PT IS TOLERATING CURRENT VENT SETTINGS WELL AT THIS TIME. NO CHANGES MADE. NO SOB NOTED AT THIS TIME. WILL CONTINUE TO MONITOR THROUGHOUT SHIFT.
[2019-07-30] MEDS: MULTIVITAMINS,THERAPEUTIC TABLET GT SCH (08:01)
[2019-07-30] MEDS: PANTOPRAZOLE SODIUM 40 MG VIAL IV SCH ×2 (08:01→21:36)
[2019-07-30] MEDS: ASCORBIC ACID 500 MG TABLET GT SCH ×2 (08:02→21:36)
[2019-07-30] MEDS: AMIODARONE HCL 200 MG TABLET PEG SCH (08:02)
[2019-07-30] MEDS: ASPIRIN 81 MG TAB.CHEW GT SCH (08:03)
[2019-07-30] MEDS: LEVETIRACETAM 500 MG/5 ML LIQUID UDC GT SCH ×2 (08:03→21:38)
[2019-07-30] MEDS: PHENOBARBITAL 32.4 MG TABLET GT SCH ×2 (08:15→21:36)
--- NOTE | 2019-07-30 09:29 | NUR ---
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 Trough pending 07/25 @0330: 18.4 Peak pending 07/25 @0500: 29.5 Random on 07/26 at 0456: 15.0 Random on 07/27 at 0600: 7.1 Trough pending today at 1430 Peak pending today at 1600 Resp culture + kleb pneumo A/P: Will continue same dose of amikacin 400mg IV q24h for today . Pending amikacin peak & trough at steady state (trough ordered for 07/30 at 1430 & peak ordered for 07/30 at 1600) today. Coordinating with RN for proper level/dose timing. Will follow when send-outs result and will adjust as needed. Will follow
--- NOTE | 2019-07-30 09:40 | NUR ---
pulmonary services, Dr. Lora in the unit to see and examine patient, report given. See order hx.
--- NOTE | 2019-07-30 09:40 | NUR ---
nephrology services, Dr. Hitchcock in the unit to see and examine patient, report given, orders to continue with care plan received.
[2019-07-30] MEDS: VITAL AF 1.2 1,000 ML LIQUID GT PRN (10:08)
[2019-07-30] MEDS: MAGNESIUM SULFATE/D5W 100 ML IV SCH ×2 (10:44→11:43)
[2019-07-30] MEDS: AMIKACIN 400 MG in IV DEXTROSE 5% 100 ML IV SCH (15:03)
--- NOTE | 2019-07-30 19:00 | NUR ---
TOR RUIZ (ID ) came and visited patient ,continue with isolation .ESBL + URINE AND BLOOD AND C DIFF .
--- NOTE | 2019-07-30 19:03 | NUR ---
Attending physician Buddy Hook. in the unit to see and examine patient, full report given orders to continue with care plan received.
--- NOTE | 2019-07-30 19:55 | NUR ---
Pt received on continuous mechanical ventilation via [facility] 8DCT trach. Pt is on Cordero vent with ordered settings of A/C-16, VT-500, PEEP+5, FIO2-30% Tolerating vent settings well. Trach is patent and secured. Minimal occluding volume technique used to assess cuff inflation. HME changed. Sxn'd small amounts of white/yellowish secretions. No signs or symptoms of respiratory distress noted. Sxn'd and lavaged as needed. Proper solation precaution equipment used. Vent plugged into red emergency outlet. Vent alarm parameters checked, on and audible. Bag/valve/mask and back up trach at bedside. Will continue to monitor.
--- NOTE | 2019-07-30 20:00 | NUR ---
rounds made patient in bed trach to vent ,ac16/500/305 peep 5.suction patient via trach and via mouth with thin to thick yellowish grayish secretion .hob up ,off pressure .sr on the heart monitor ,afebrile 98.6 orally ,flushed peg patient on vital AF 55ML/HR ,f/c to bsd with yellowish urine .continue isolation.
--- NOTE | 2019-07-30 21:00 | NUR ---
due medication given scan medication crushed pills given via peg flushed peg q used .aspiration precaution observed.turned and reposition offloaded back with pillow and heels off bed . scds used to bilateral lower leg.
[2019-07-30] MEDS: IV NORMAL SALINE 250 ML IV PRN (22:02)
[2019-07-31] VITALS (13 sets, daily range): BP systolic 115–149; BP diastolic 74–90
--- NOTE | 2019-07-31 04:30 | NUR ---
am care done ,bath patient changed soiled linens and gown . v/s wnl no s/s of pain . turned and reposition . hob up aspiration precaution observed .
[2019-07-31 05:15] LABS: BASOPHILS % (AUTO) 0.4 % (0.0-2.0); EOSINOPHILS # (AUTO) 0.2 K/uL (0.0-0.7); EOSINOPHILS % (AUTO) 1.9 % (0.0-7.0); HEMOGLOBIN 8.4 g/dL (10.9-14.3); LYMPHOCYTES # (AUTO) 0.9 K/uL (20.0-40.0); LYMPHOCYTES % (AUTO) 11.1 % (20.5-51.5); MEAN CORPUSCULAR HEMOGLOBIN 28.4 uug (24.7-32.8); MEAN CORPUSCULAR HGB CONC 34 g/dL (32.3-35.6); MEAN CORPUSCULAR VOLUME 84.3 fL (75.5-95.3); MONOCYTES # (AUTO) 0.5 K/uL (2.0-10.0); MONOCYTES % (AUTO) 6.4 % (0.0-11.0); NEUTROPHILS # (AUTO) 6.6 K/uL (1.8-8.9); NEUTROPHILS % (AUTO) 80.2 % (38.5-71.5); PLATELET COUNT (AUTO) 263 K/uL (179-408); RED BLOOD CELL COUNT(AUTO) 2.97 MIL/uL (3.63-4.92); WHITE BLOOD COUNT (AUTO) 8.3 K/uL (3.8-11.8)
[2019-07-31 05:32] LABS: CARBON DIOXIDE 28 mmol/L (21-32); CHLORIDE 108 mmol/L (98-107); CREATININE 0.4 mg/dL (0.6-1.3); GLUCOSE 109 mg/dL (74-106); MAGNESIUM 1.5 mg/dL (1.8-2.4); PHOSPHOROUS 3.9 mg/dL (2.5-4.9); POTASSIUM 4.1 mmol/L (3.5-5.1); UREA NITROGEN, BLOOD 12 mg/dL (7-18)
[2019-07-31] MEDS: VANCOMYCIN FOR PO/GT/NG USE GT SCH ×2 (05:56→13:31)
--- NOTE | 2019-07-31 06:00 | NUR ---
trach care done by respiratory therapist .
--- NOTE | 2019-07-31 07:40 | NUR ---
RECEIVED PT ON CONTINUOUS MECHANICAL VENTILATION. CURRENT SETTINGS ARE AC 16, 500, PEEP +5, FIO2 30%. PATIENT HAS A SHILEY #8 TRACH. TRACH IS PATENT AND SECURED VIA FOAM TRACH TIES. SUCTIONED SMALL AMOUNT OF WHITE, THIN SECRETIONS. VENT ALARMS CHECKED, ARE ON AND AUDIBLE. VENT IS PLUGGED INTO RED EMERGENCY OUTLET. NO CHANGES MADE AT THIS TIME. ABG TO BE DRAWN AT 0800. NO SOB NOTED AT THIS TIME. WILL CONTINUE TO MONITOR THROUGHOUT SHIFT.
[2019-07-31 08:18] LABS: ABG BASE EXCESS 1.3 mmol/L; ABG HCO3 25.6 mmol/L; ABG PCO2 39.1 mmHg (35.0-45.0); ABG PH 7.434 (7.350-7.450); ABG PO2 90.3 mmHg (75.0-100.0); ABG SITE LEFT RADIAL; ABG TOTAL HEMOGLOBIN 9.1 G/dL (12.0-16.0); COHb 0.6 % (0.5-1.5); MetHb 0.3 % (0.0-1.5); VENT MODE VENT - A/C; VT, ABG 500 mL
[2019-07-31] MEDS: MULTIVITAMINS,THERAPEUTIC TABLET GT SCH (08:45)
[2019-07-31] MEDS: LEVETIRACETAM 500 MG/5 ML LIQUID UDC GT SCH (08:45)
[2019-07-31] MEDS: ASCORBIC ACID 500 MG TABLET GT SCH (08:45)
[2019-07-31] MEDS: PANTOPRAZOLE SODIUM 40 MG VIAL IV SCH (08:45)
[2019-07-31] MEDS: ASPIRIN 81 MG TAB.CHEW GT SCH (08:45)
[2019-07-31] MEDS: PHENOBARBITAL 32.4 MG TABLET GT SCH (08:54)
[2019-07-31] MEDS ORDERED: AMIODARONE HCL 200 MG TABLET PEG SCH (09:00)
[2019-07-31] MEDS: MAGNESIUM SULFATE/D5W 100 ML IV SCH ×2 (09:44→10:34)
--- NOTE | 2019-07-31 10:01 | NUR ---
CLINICAL PHARMACY NOTE: AMIKACIN DOSING S:Continue amikacin dosing on 58 y/o female 170.18 cm 65.77kg (longterm bed-ridden patient)for blood stream infection(severe septic shock with GNR bacteremia and UTI) O:Temp 99.9 BUN 12 scr 0.4 WBC 8.3 Patient started on Amikacin on 4th floor transferred to CCU. Trough pending 07/25 @0330: 18.4 Peak pending 07/25 @0500: 29.5 Random on 07/26 at 0456: 15.0 Random on 07/27 at 0600: 7.1 Trough 07/30 1430: 3.9 Peak 07/30 1600: 20.2 Resp culture + kleb pneumo A/P: Per peak and trough levels, and drastic improvement in renal function, will continue regimen of amikacin 400mg IV q24h for today . Will consider adjusting or redrawing levels if condition were to appear to change. otherwise will continue to follow
[2019-07-31] MEDS: VITAL AF 1.2 1,000 ML LIQUID GT PRN (10:17)
--- NOTE | 2019-07-31 14:33 | NUR ---
report given to Humphrey Morrissey RN. Patient discharged to [facility] to room 426 with RT And RN Addendum: 07/31/19 at 1433 by JONAS PRATER RN Amended: Links added.
[2019-07-31] MEDS ORDERED: PANTOPRAZOLE ORAL SUSPENSION 40 MG SUSPDR.PKT GT SCH (21:00)
== END 2019-07-31 14:42 | DRG 720 ==
LOC: ER 16:17 → CCU 20:14
PROVIDERS: ADMIT Hospitalist; ATTEND Hospitalist
PROC: 05H633Z Insertion of Infusion Device into Left Subclavian Vein, Percutaneous Approach (ICD-10-PCS; principal; 2019-07-22)
PROC: 5A2204Z Restoration of Cardiac Rhythm, Single (ICD-10-PCS; principal; 2019-07-22)
PROC: 5A1955Z Respiratory Ventilation, Greater than 96 Consecutive Hours (ICD-10-PCS; principal; 2019-07-22)
PROC: 30233N1 Transfusion of Nonautologous Red Blood Cells into Peripheral Vein, Percutaneous Approach (ICD-10-PCS; 2019-07-29)
DX: A41.9 Sepsis, unspecified organism (principal); J96.21 Acute and chronic respiratory failure with hypoxia; J69.0 Pneumonitis due to inhalation of food and vomit; G93.40 Encephalopathy, unspecified; N17.0 Acute kidney failure with tubular necrosis; E43 Unspecified severe protein-calorie malnutrition; R65.21 Severe sepsis with septic shock; J15.0 Pneumonia due to Klebsiella pneumoniae; A04.72 Enterocolitis due to Clostridium difficile, not specified as recurrent; E87.2 Acidosis; Z93.0 Tracheostomy status; Z99.81 Dependence on supplemental oxygen; L89.156 Pressure-induced deep tissue damage of sacral region; D68.59 Other primary thrombophilia; G20 Parkinson's disease; E83.42 Hypomagnesemia; R13.10 Dysphagia, unspecified; N39.0 Urinary tract infection, site not specified; G40.909 Epilepsy, unspecified, not intractable, without status epilepticus; Z93.1 Gastrostomy status; Z79.899 Other long term (current) drug therapy; E87.6 Hypokalemia; B96.20 Unspecified Escherichia coli [E. coli] as the cause of diseases classified elsewhere; I69.351 Hemiplegia and hemiparesis following cerebral infarction affecting right dominant side; I69.391 Dysphagia following cerebral infarction; I69.398 Other sequelae of cerebral infarction; D50.9 Iron deficiency anemia, unspecified; J98.11 Atelectasis; E78.5 Hyperlipidemia, unspecified; E87.1 Hypo-osmolality and hyponatremia; Z74.09 Other reduced mobility; G93.89 Other specified disorders of brain; E07.1 Dyshormogenetic goiter; Z68.22 Body mass index [BMI] 22.0-22.9, adult; I48.0 Paroxysmal atrial fibrillation; I11.9 Hypertensive heart disease without heart failure; Z87.01 Personal history of pneumonia (recurrent); E83.39 Other disorders of phosphorus metabolism; Z86.19 Personal history of other infectious and parasitic diseases
CPT/HCPCS: 36415; 36556; 36600; 70030-TC; 71045; 74018; 76705; 83605; 83690; 83735; 84100; 84443; 85025; 85730; 86850; 86900; 86901; 86920; 87040; 87070; 87077; 87086; 87400; 93005; 93307; 94002; 94003; A4663; C9113; G0378; G0500; J0278; J1940; J2185; J3370; J3475; J3490; J7030; J7040; J7050; J7060; P9016-BL; P9021

== ENCOUNTER 2019-07-31 14:42 | Inpatient (IN) | END 2019-08-11 23:59 | disposition still patient (30) | DRG 130 | DX: J96.21 Acute and chronic respiratory failure with hypoxia (principal); J15.0 Pneumonia due to Klebsiella pneumoniae; N39.0 Urinary tract infection, site not specified; B96.20 Unspecified Escherichia coli [E. coli] as the cause of diseases classified elsewhere; Z16.12 Extended spectrum beta lactamase (ESBL) resistance; E78.5 Hyperlipidemia, unspecified ==

== ENCOUNTER 2019-08-12 | Inpatient (IN) | payer OTHER ==
[~2019-08-12] VITALS: Ht 170.2 cm; Wt 70.3 kg
[~2019-08-12] MED LIST: ACET160S2 GT; AMIK250V13 IV; AMLO10TA4 GT; ASCO500C18 GT; ASPI81TA31 GT; DIAZ10TA4 GT; LEVE100S GT; LISI10TA5 GT; METO50TA16 GT; MULT-24 GT; PHEN32.46 GT; VANC1VIA IV
[2019-08-13 08:30] VITALS: BP 111/72
[2019-08-13] MEDS ORDERED: ONDANSETRON ODT 4 MG TAB.RAPDIS GT PRN (13:45)
[2019-08-13] MEDS ORDERED: HYDROGEN PEROXIDE 3% 118 ML BOTTLE TOP PRN (13:45)
[2019-08-13] MEDS ORDERED: DIAZEPAM 5 MG TABLET GT PRN (13:45)
[2019-08-13] MEDS: POLYVINYL ALCOHOL OPHT DROPS 15 ML BOTTLE EACHEYE SCH (17:30)
[2019-08-13] MEDS: GENTAMICIN SULFATE INJ 100 MG in IV DEXTROSE 5% 100 ML IV SCH (17:43)
[2019-08-13 20:04] VITALS: BP 125/75
--- NOTE | 2019-08-13 20:20 | NUR ---
PT RECEIVED ON THE HT-50 VENT WITH THE FOLLOWING SETTINGS THAT ARE CHARTED ON THE MECHANICAL VENT NOTES. TRACH TUBE IS PATENT AND SECURED WITH TRACH TIES. HME CHANGED. SUCTIONED SMALL AMOUNTS OF THICK WHITE/YELLOW SECRETIONS. TRACH CARE DONE. VENT ALARMS ARE ON AND AUDIBLE. VENT IS PLUGGED IN THE RED OUTLET. BACK UP TRACH AND AMBU BAG IS BY BEDSIDE. PT IS TOLERATING CURRENT VENT SETTINGS WELL AT THIS TIME WITH NO SOB NOTED. WILL CONTINUE TO MONITOR PT.
[2019-08-13] MEDS: HYDROGEN PEROXIDE 3% 118 ML BOTTLE TOP SCH (20:43)
[2019-08-13] MEDS: levETIRAcetam 500 MG/5 ML LIQUID UDC GT SCH (20:59)
[2019-08-13] MEDS: NORMAL SALINE FLUSH 10 ML DISP.SYRIN IV SCH (21:00)
[2019-08-13] MEDS: METOPROLOL TARTRATE 50 MG TABLET GT SCH (21:00)
[2019-08-13] MEDS: MAGNESIUM OXIDE 400 MG TABLET GT SCH (21:01)
[2019-08-13] MEDS: PHENOBARBITAL 30 MG/7.5 ML LIQUID UDC GT SCH (21:02)
[2019-08-13] MEDS: COD LIVER OIL/ZINC OXIDE OINT 113 GM TUBE TP SCH ×3 (21:03→21:04)
[2019-08-13] MEDS: DIAZEPAM 5 MG TABLET GT SCH (21:03)
[2019-08-13] MEDS: ASCORBIC ACID 500 MG TABLET PO SCH (21:03)
[2019-08-13] MEDS: MULTIVIT, IRON, MIN NO. 8, FA TABLET GT SCH (21:03)
[2019-08-14] MEDS: VITAL AF 1.2 1,000 ML LIQUID GT PRN (03:00)
[2019-08-14] MEDS: POLYVINYL ALCOHOL OPHT DROPS 15 ML BOTTLE EACHEYE SCH ×2 (06:07→17:08)
[2019-08-14] MEDS: OMEPRAZOLE 40MG GT SCH (06:07)
[2019-08-14 06:18] LABS: CREATININE 0.4 mg/dL (0.6-1.3); UREA NITROGEN, BLOOD 20 mg/dL (7-18)
[2019-08-14] MEDS: GENTAMICIN SULFATE INJ 100 MG in IV DEXTROSE 5% 100 ML IV SCH (06:22)
[2019-08-14 08:00] VITALS: BP 101/63
[2019-08-14] MEDS: ASPIRIN 81 MG TAB.CHEW GT SCH (08:11)
[2019-08-14] MEDS: levETIRAcetam 500 MG/5 ML LIQUID UDC GT SCH ×2 (08:15→20:43)
[2019-08-14] MEDS: AMIODARONE HCL 200 MG TABLET GT SCH (08:16)
[2019-08-14] MEDS: PHENOBARBITAL 30 MG/7.5 ML LIQUID UDC GT SCH ×2 (08:18→20:43)
[2019-08-14] MEDS: DIAZEPAM 5 MG TABLET GT SCH ×2 (08:18→20:43)
[2019-08-14] MEDS: METOPROLOL TARTRATE 50 MG TABLET GT SCH ×2 (08:18→20:43)
[2019-08-14] MEDS: ASCORBIC ACID 500 MG TABLET PO SCH ×2 (08:18→20:43)
[2019-08-14] MEDS: COD LIVER OIL/ZINC OXIDE OINT 113 GM TUBE TP SCH ×6 (08:18→20:43)
[2019-08-14] MEDS: NORMAL SALINE FLUSH 10 ML DISP.SYRIN IV SCH ×2 (09:00→21:00)
[2019-08-14] MEDS: HYDROGEN PEROXIDE 3% 118 ML BOTTLE TOP SCH ×2 (09:59→21:38)
[2019-08-14 20:19] VITALS: BP 155/78
[2019-08-14] MEDS: MAGNESIUM OXIDE 400 MG TABLET GT SCH (20:43)
[2019-08-14] MEDS: MULTIVIT, IRON, MIN NO. 8, FA TABLET GT SCH (20:43)
[2019-08-15] MEDS: VITAL AF 1.2 1,000 ML LIQUID GT PRN ×2 (01:58→21:45)
--- NOTE | 2019-08-15 04:35 | NUR ---
PATIENT ENDORSED ON ORDERED SETTINGS OF CMV. NO SIGNS OF RESPIRATORY DISTRESS NOTED AT THIS TIME. SHE IS TRACHED WITH A SHILEY 8 DCT. AIRWAY IS PATENT AND SECURED @ MIDLINE. MAC DEVELOPER USED FOR CUFF ASSESSMENT/INFLATION. SUCTIONED SMALL AMOUNTS OF THIN PALE-YELLOW SECRETIONS. ALARMS ARE ON AND AUDIBLE. WILL CONTINUE TO MONITOR THROUGHOUT SHIFT.
--- NOTE | 2019-08-15 05:18 | NUR ---
continue on gentamicin iv for esbl in urine and c.diff, no adverse reaction noted, afebrile, no respiratory distress noted.
[2019-08-15] MEDS: OMEPRAZOLE 40MG GT SCH (05:25)
[2019-08-15] MEDS: POLYVINYL ALCOHOL OPHT DROPS 15 ML BOTTLE EACHEYE SCH ×2 (05:25→17:30)
[2019-08-15] MEDS: GENTAMICIN SULFATE INJ 100 MG in IV DEXTROSE 5% 100 ML IV SCH (05:46)
[2019-08-15 08:30] VITALS: BP 125/83
[2019-08-15] MEDS: NORMAL SALINE FLUSH 10 ML DISP.SYRIN IV SCH ×2 (09:00→21:17)
[2019-08-15] MEDS: HYDROGEN PEROXIDE 3% 118 ML BOTTLE TOP SCH ×2 (09:00→21:58)
[2019-08-15] MEDS: ASPIRIN 81 MG TAB.CHEW GT SCH (09:06)
[2019-08-15] MEDS: AMIODARONE HCL 200 MG TABLET GT SCH (09:06)
[2019-08-15] MEDS: DIAZEPAM 5 MG TABLET GT SCH ×2 (09:07→20:47)
[2019-08-15] MEDS: ASCORBIC ACID 500 MG TABLET PO SCH ×2 (09:07→20:47)
[2019-08-15] MEDS: COD LIVER OIL/ZINC OXIDE OINT 113 GM TUBE TP SCH ×6 (09:07→20:47)
[2019-08-15] MEDS: levETIRAcetam 500 MG/5 ML LIQUID UDC GT SCH ×2 (09:07→20:46)
[2019-08-15] MEDS: METOPROLOL TARTRATE 50 MG TABLET GT SCH ×2 (09:07→20:46)
[2019-08-15] MEDS: PHENOBARBITAL 30 MG/7.5 ML LIQUID UDC GT SCH ×2 (09:07→20:47)
--- NOTE | 2019-08-15 19:00 | NUR ---
Continue on Ivatb for VRE in urine ,no adverse reaction noted,triple lumen on the R subclavian intact,dressing changed.
[2019-08-15] MEDS: MAGNESIUM OXIDE 400 MG TABLET GT SCH (20:46)
[2019-08-15] MEDS: MULTIVIT, IRON, MIN NO. 8, FA TABLET GT SCH (20:47)
[2019-08-15 20:59] VITALS: BP 159/85
--- NOTE | 2019-08-16 04:36 | NUR ---
continue on gentamicin 100mg iv for esbl inurine and c.diff, afebrile, no adverse reaction noted, no respiratory distress noted.
[2019-08-16] MEDS: POLYVINYL ALCOHOL OPHT DROPS 15 ML BOTTLE EACHEYE SCH ×2 (05:15→18:07)
[2019-08-16] MEDS: OMEPRAZOLE 40MG GT SCH (05:15)
[2019-08-16] MEDS: GENTAMICIN SULFATE INJ 100 MG in IV DEXTROSE 5% 100 ML IV SCH (05:50)
[2019-08-16] MEDS: HYDROGEN PEROXIDE 3% 118 ML BOTTLE TOP SCH ×2 (07:54→21:11)
[2019-08-16 08:30] VITALS: BP 101/63
[2019-08-16] MEDS: NORMAL SALINE FLUSH 10 ML DISP.SYRIN IV SCH ×2 (09:00→21:11)
[2019-08-16] MEDS: ASPIRIN 81 MG TAB.CHEW GT SCH (09:12)
[2019-08-16] MEDS: AMIODARONE HCL 200 MG TABLET GT SCH (09:13)
[2019-08-16] MEDS: levETIRAcetam 500 MG/5 ML LIQUID UDC GT SCH ×2 (09:14→20:23)
[2019-08-16] MEDS: METOPROLOL TARTRATE 50 MG TABLET GT SCH ×2 (09:14→20:23)
[2019-08-16] MEDS: COD LIVER OIL/ZINC OXIDE OINT 113 GM TUBE TP SCH ×6 (09:15→20:23)
[2019-08-16] MEDS: ASCORBIC ACID 500 MG TABLET PO SCH ×2 (09:15→20:23)
[2019-08-16] MEDS: PHENOBARBITAL 30 MG/7.5 ML LIQUID UDC GT SCH ×2 (09:15→20:23)
[2019-08-16] MEDS: DIAZEPAM 5 MG TABLET GT SCH ×2 (09:15→20:23)
--- NOTE | 2019-08-16 12:08 | NUR ---
Seen and examined by DR Be with no new orders noted.
--- NOTE | 2019-08-16 19:55 | NUR ---
PT RECEIVED ON CONTINUOUS VENT. TRACH IN PLACED AND SECURED WITH TRACH TIE. BACK UP TRACH AND AMBU BAG AT BEDSIDE. SUCTION PRN. TRACH CARE DONE WITHOUT COMPLICATIONS NOTED. VENT CHECKED, ALARMS WORKING WELL AND AUDIBLE. NO DISTRESS NOTED AT THIS TIME. WILL CONTINUE TO MONITOR.
[2019-08-16] MEDS: MAGNESIUM OXIDE 400 MG TABLET GT SCH (20:23)
[2019-08-16] MEDS: MULTIVIT, IRON, MIN NO. 8, FA TABLET GT SCH (20:23)
--- NOTE | 2019-08-16 21:11 | NUR ---
Remains on IV ESBL in the urine, no adverse reactions noted, on contact isolation. Afebrile, fluids given as ordered, voss catheter is draining well to yellow urine output, good jeny care rendered, on vancomycin via gt for c-diff, no adverse reactions noted. kept patient clean and comfortable.
[2019-08-16 21:23] VITALS: BP 140/75
[2019-08-16] MEDS: VITAL AF 1.2 1,000 ML LIQUID GT PRN (21:48)
[2019-08-17] MEDS: OMEPRAZOLE 40MG GT SCH (05:21)
[2019-08-17] MEDS: POLYVINYL ALCOHOL OPHT DROPS 15 ML BOTTLE EACHEYE SCH ×2 (05:21→18:05)
[2019-08-17] MEDS: GENTAMICIN SULFATE INJ 100 MG in IV DEXTROSE 5% 100 ML IV SCH (06:39)
[2019-08-17 08:30] VITALS: BP 132/78
[2019-08-17] MEDS: levETIRAcetam 500 MG/5 ML LIQUID UDC GT SCH ×2 (08:54→22:00)
[2019-08-17] MEDS: ASPIRIN 81 MG TAB.CHEW GT SCH (08:54)
[2019-08-17] MEDS: AMIODARONE HCL 200 MG TABLET GT SCH (08:54)
[2019-08-17] MEDS: METOPROLOL TARTRATE 50 MG TABLET GT SCH ×2 (08:55→22:00)
[2019-08-17] MEDS: DIAZEPAM 5 MG TABLET GT SCH ×2 (08:56→22:00)
[2019-08-17] MEDS: PHENOBARBITAL 30 MG/7.5 ML LIQUID UDC GT SCH ×2 (08:56→22:00)
[2019-08-17] MEDS: ASCORBIC ACID 500 MG TABLET PO SCH ×2 (08:56→21:50)
[2019-08-17] MEDS: HYDROGEN PEROXIDE 3% 118 ML BOTTLE TOP SCH ×2 (09:00→21:00)
[2019-08-17] MEDS: COD LIVER OIL/ZINC OXIDE OINT 113 GM TUBE TP SCH ×6 (09:00→22:50)
[2019-08-17] MEDS: NORMAL SALINE FLUSH 10 ML DISP.SYRIN IV SCH ×2 (09:50→22:49)
[2019-08-17 20:12] VITALS: BP 140/90
[2019-08-17] MEDS: MAGNESIUM OXIDE 400 MG TABLET GT SCH (22:00)
[2019-08-17] MEDS: MULTIVIT, IRON, MIN NO. 8, FA TABLET GT SCH (22:00)
--- NOTE | 2019-08-18 05:14 | NUR ---
PT RECEIVED ON ORDERED SETTINGS OF CMV. NO SIGNS OF RESPIRATORY DISTRESS NOTED AT THIS TIME. SHE IS TRACHED WITH A SHILEY 8 DCT. AIRWAY IS PATENT AND SECURED @ MIDLINE. KENO WRITER USED FOR CUFF ASSESSMENT/INFLATION. SUCTIONED SMALL AMOUNTS OF THIN PALE-YELLOW SECRETIONS. ALARMS ARE ON AND AUDIBLE. WILL CONTINUE TO MONITOR.
[2019-08-18] MEDS: OMEPRAZOLE 40MG GT SCH (05:51)
[2019-08-18] MEDS: POLYVINYL ALCOHOL OPHT DROPS 15 ML BOTTLE EACHEYE SCH ×2 (05:51→17:19)
[2019-08-18 07:05] LABS: ALANINE AMINOTRANSFERASE 27 U/L (14-59); ALKALINE PHOSPHATASE 141 U/L (50-136); ASPARTATE AMINOTRANSFERASE 13 U/L (15-37); BILIRUBIN,TOTAL 0.3 mg/dL (0.2-1.0); CARBON DIOXIDE 30 mmol/L (21-32); CHLORIDE 101 mmol/L (98-107); CREATININE 0.4 mg/dL (0.6-1.3); GLUCOSE 108 mg/dL (74-106); MAGNESIUM 1.9 mg/dL (1.8-2.4); PHOSPHOROUS 3.6 mg/dL (2.5-4.9); TOTAL PROTEIN, SERUM 7.5 g/dL (6.4-8.2); UREA NITROGEN, BLOOD 21 mg/dL (7-18)
[2019-08-18 07:14] LABS: BASOPHILS % (AUTO) 0.9 % (0.0-2.0); EOSINOPHILS # (AUTO) 0.2 K/uL (0.0-0.7); EOSINOPHILS % (AUTO) 3.7 % (0.0-7.0); HEMATOCRIT 23.4 % (31.2-41.9); LYMPHOCYTES # (AUTO) 0.9 K/uL (20.0-40.0); LYMPHOCYTES % (AUTO) 16.9 % (20.5-51.5); MEAN CORPUSCULAR HEMOGLOBIN 28.9 uug (24.7-32.8); MEAN CORPUSCULAR HGB CONC 34 g/dL (32.3-35.6); MEAN CORPUSCULAR VOLUME 84.4 fL (75.5-95.3); MONOCYTES # (AUTO) 0.4 K/uL (2.0-10.0); MONOCYTES % (AUTO) 7.2 % (0.0-11.0); NEUTROPHILS # (AUTO) 3.8 K/uL (1.8-8.9); NEUTROPHILS % (AUTO) 71.3 % (38.5-71.5); PLATELET COUNT (AUTO) 235 K/uL (179-408); RED BLOOD CELL COUNT(AUTO) 2.77 MIL/uL (3.63-4.92); WHITE BLOOD COUNT (AUTO) 5.3 K/uL (3.8-11.8)
[2019-08-18 08:00] VITALS: BP 130/89
[2019-08-18] MEDS: AMIODARONE HCL 200 MG TABLET GT SCH (08:07)
[2019-08-18] MEDS: ASPIRIN 81 MG TAB.CHEW GT SCH (08:07)
[2019-08-18] MEDS: levETIRAcetam 500 MG/5 ML LIQUID UDC GT SCH ×2 (08:08→21:08)
[2019-08-18] MEDS: DIAZEPAM 5 MG TABLET GT SCH ×2 (08:08→21:10)
[2019-08-18] MEDS: ASCORBIC ACID 500 MG TABLET PO SCH ×2 (08:08→21:10)
[2019-08-18] MEDS: METOPROLOL TARTRATE 50 MG TABLET GT SCH ×2 (08:08→21:09)
[2019-08-18] MEDS: COD LIVER OIL/ZINC OXIDE OINT 113 GM TUBE TP SCH ×6 (08:08→21:10)
[2019-08-18] MEDS: PHENOBARBITAL 30 MG/7.5 ML LIQUID UDC GT SCH ×2 (08:08→21:09)
[2019-08-18] MEDS: NORMAL SALINE FLUSH 10 ML DISP.SYRIN IV SCH ×2 (09:00→21:00)
[2019-08-18] MEDS: HYDROGEN PEROXIDE 3% 118 ML BOTTLE TOP SCH ×2 (09:00→21:35)
--- NOTE | 2019-08-18 14:29 | NUR ---
Pharmacy Update from Today's 08/18/19 IDT Meeting Note: Pt was transferred to CCU 07/23-07/31 for afib and severe sepsis (hypotension resistant to IV fluids, SRINIVAS, fever, previous ongoing UTI tx). Pt was stabilized with pressors, amiodarone and also treated per ID with amikacin and vanco po for c diff. Now transferred back to for ongoing treatment to finish course of abxs. VS: Temp 98.4 BP 130/89 HR 62 LABS: (from 08/18/19) Wbc 5.3 H/H 8/23.4 Plt 235 Na 138 K 4.0 Cl 101 CO2 30 BUN/Scr 21/0.4 BS 108 Ca 9 phos 3.6 Mg 1.9 MEDICATION USE REVIEWED: > Pt not on any anti-psych medications > Pt continues on Keppra 2000mg q12hr since 12/02/18; CrCl >100 ml/min, renal function ok for current dose. No reported seizures > Pt nn Phenobarbital 129.6mg q12hr since 07/23/19. Last level 07/21/19 was 32.4 (15-39), within therapeutic range > Pt restarted Valium 5mg q12hr since 08/05 for muscle twitching/residual seizure activity per neurology. PRN also added > Pt started on Magnesium Oxide 400mg daily since 08/03. Last Mg 1.9 > Pt on Omeprazole 40mg daily since 08/02/19, ok dose per renal function PRN MED USAGE: (Since readmit) Tylenol PRN pain/temp used x0 Zofran PRN used x0 Valium PRN musc twitching used x0 NEW ORDERS NOTED: > Valium 5mg q12hr restarted 08/05, PRN added as well for musc twitching > Amikacin IV for sepsis from CCU now changed to gentamicin for ESBL urine 08/12-08/18 to complete course Patient was reviewed and discussed in depth per IDT team with no medication issues at this time. Rx reported recent changes since transferring back from CCU. No further recommendations at this time, will continue follow
--- NOTE | 2019-08-18 16:38 | NUR ---
INTERDISCIPLINARY PLAN OF CARE CONFERENCE was held today. Patient's father is very minimally involved in patient's care and does not attend monthly IDT meetings. Dr. Lora and the Interdisciplinary Team reviewed the current plan of care in detail. RN reported on patient's current medical condition and current treatment for ESVL in urine. RN reported that patient remains on isolation precautions. See RN IDT conference notes. RD discussed weight gain, which RD will monitor and provide interventions, as needed. See all other disciplines IDT notes and physician's progress notes for additional details.
[2019-08-18] MEDS: VITAL AF 1.2 1,000 ML LIQUID GT PRN (17:37)
[2019-08-18 19:57] VITALS: BP 119/84
[2019-08-18] MEDS: MULTIVIT, IRON, MIN NO. 8, FA TABLET GT SCH (21:09)
[2019-08-18] MEDS: MAGNESIUM OXIDE 400 MG TABLET GT SCH (21:09)
--- NOTE | 2019-08-19 03:27 | NUR ---
TRACHED RESIDENT WAS RECEIVED ON ORDERED SETTINGS OF MECHANICAL VENTILATION. NO SIGNS OF RESPIRATORY DISTRESS NOTED. SHE IS TRACHED WITH A SHILEY 8 DCT. AIRWAY IS PATENT AND SECURED @ MIDLINE. PROCESS MANAGER USED FOR CUFF ASSESSMENT/INFLATION. SUCTIONED SMALL AMOUNTS OF THIN PALE-YELLOW SECRETIONS. ALARMS ARE ON AND AUDIBLE. WILL CONTINUE TO MONITOR THROUGHOUT SHIFT.
[2019-08-19] MEDS: VITAL AF 1.2 1,000 ML LIQUID GT PRN (05:00)
[2019-08-19] MEDS: POLYVINYL ALCOHOL OPHT DROPS 15 ML BOTTLE EACHEYE SCH ×2 (06:23→17:17)
[2019-08-19] MEDS: OMEPRAZOLE 40MG GT SCH (06:23)
--- NOTE | 2019-08-19 07:26 | NUR ---
PATIENT RECEIVED ON CURRENT VENT SETTINGS ORDERED/DOCUMENTED. VENT IS PLUGGED INTO RED EMERGENCY OUTLET. NO SHORTNESS OF BREATH NOTED. VENT ALARMS ARE ON AND AUDIBLE. TRACH AND ORAL CARE DONE. TRACH TUBE IS PATENT, MIDLINE AND SECURED WITH A FOAM TRACH TIE. AMBU BAG AND BACK UP TRACH TUBE ARE AT PATIENT BEDSIDE. SUCTIONED PRN FOR MODERATE/SM AMOUNTS OF THICK PALE YELLOW SECRETIONS. WILL CONTINUE TO MONITOR AND REPORT ANY CHANGES.
[2019-08-19 08:00] VITALS: BP 110/67
[2019-08-19] MEDS: ASPIRIN 81 MG TAB.CHEW GT SCH (08:00)
[2019-08-19] MEDS: AMIODARONE HCL 200 MG TABLET GT SCH (08:01)
[2019-08-19] MEDS: COD LIVER OIL/ZINC OXIDE OINT 113 GM TUBE TP SCH ×6 (08:01→21:14)
[2019-08-19] MEDS: PHENOBARBITAL 30 MG/7.5 ML LIQUID UDC GT SCH ×2 (08:01→21:13)
[2019-08-19] MEDS: levETIRAcetam 500 MG/5 ML LIQUID UDC GT SCH ×2 (08:01→21:11)
[2019-08-19] MEDS: DIAZEPAM 5 MG TABLET GT SCH ×2 (08:01→21:14)
[2019-08-19] MEDS: ASCORBIC ACID 500 MG TABLET PO SCH ×2 (08:01→21:14)
[2019-08-19] MEDS: METOPROLOL TARTRATE 50 MG TABLET GT SCH ×2 (08:01→21:13)
[2019-08-19] MEDS: HYDROGEN PEROXIDE 3% 118 ML BOTTLE TOP SCH ×2 (09:32→20:54)
--- NOTE | 2019-08-19 13:03 | NUR ---
New orders to discontinue rectal tube,Nera aware pt ivatb was completed with orders to discontinue the subclavian line,orders carried out,r subclavian triple lumen removed,tip intact,witnessed by another nurse,Faisal Head,no bleeding noted,pressure dressing applied.
[2019-08-19 20:04] VITALS: BP 136/77
[2019-08-19] MEDS: MAGNESIUM OXIDE 400 MG TABLET GT SCH (21:13)
[2019-08-19] MEDS: MULTIVIT, IRON, MIN NO. 8, FA TABLET GT SCH (21:13)
[2019-08-20] MEDS: POLYVINYL ALCOHOL OPHT DROPS 15 ML BOTTLE EACHEYE SCH ×2 (05:10→17:36)
[2019-08-20] MEDS: VITAL AF 1.2 1,000 ML LIQUID GT PRN (05:13)
[2019-08-20] MEDS: OMEPRAZOLE 40MG GT SCH (05:13)
[2019-08-20 08:00] VITALS: BP 120/67
[2019-08-20] MEDS: ASPIRIN 81 MG TAB.CHEW GT SCH (08:36)
[2019-08-20] MEDS: AMIODARONE HCL 200 MG TABLET GT SCH (08:38)
[2019-08-20] MEDS: levETIRAcetam 500 MG/5 ML LIQUID UDC GT SCH ×2 (08:39→21:00)
[2019-08-20] MEDS: METOPROLOL TARTRATE 50 MG TABLET GT SCH ×2 (08:40→21:00)
[2019-08-20] MEDS: COD LIVER OIL/ZINC OXIDE OINT 113 GM TUBE TP SCH ×6 (08:40→21:00)
[2019-08-20] MEDS: PHENOBARBITAL 30 MG/7.5 ML LIQUID UDC GT SCH ×2 (08:40→21:00)
[2019-08-20] MEDS: ASCORBIC ACID 500 MG TABLET PO SCH ×2 (08:40→21:00)
[2019-08-20] MEDS: DIAZEPAM 5 MG TABLET GT SCH ×2 (08:40→21:00)
[2019-08-20] MEDS: HYDROGEN PEROXIDE 3% 118 ML BOTTLE TOP SCH ×2 (09:00→21:00)
[2019-08-20 20:38] VITALS: BP 139/71
[2019-08-20] MEDS: MAGNESIUM OXIDE 400 MG TABLET GT SCH (21:00)
[2019-08-20] MEDS: MULTIVIT, IRON, MIN NO. 8, FA TABLET GT SCH (21:00)
--- NOTE | 2019-08-20 22:12 | NUR ---
PT WAS RECEIVED ON ORDERED SETTINGS OF MECHANICAL VENTILATION. NO SIGNS OF RESPIRATORY DISTRESS NOTED. SHE IS TRACHED WITH A SHILEY 8 DCT. AIRWAY IS PATENT AND SECURED @ MIDLINE. PHYSICAL THERAPY AIDE USED FOR CUFF ASSESSMENT/INFLATION. SUCTIONED SMALL AMOUNTS OF THIN PALE-YELLOW SECRETIONS. ALARMS ARE ON AND AUDIBLE. WILL CONTINUE TO MONITOR.
[2019-08-21] MEDS: POLYVINYL ALCOHOL OPHT DROPS 15 ML BOTTLE EACHEYE SCH ×2 (05:18→17:51)
[2019-08-21] MEDS: OMEPRAZOLE 40MG GT SCH (05:18)
[2019-08-21] MEDS: VITAL AF 1.2 1,000 ML LIQUID GT PRN (05:19)
[2019-08-21 08:09] VITALS: BP 142/64
[2019-08-21] MEDS: AMIODARONE HCL 200 MG TABLET GT SCH (08:24)
[2019-08-21] MEDS: ASPIRIN 81 MG TAB.CHEW GT SCH (08:24)
[2019-08-21] MEDS: levETIRAcetam 500 MG/5 ML LIQUID UDC GT SCH ×2 (08:25→21:00)
[2019-08-21] MEDS: METOPROLOL TARTRATE 50 MG TABLET GT SCH ×2 (08:25→21:00)
[2019-08-21] MEDS: PHENOBARBITAL 30 MG/7.5 ML LIQUID UDC GT SCH ×2 (08:25→21:00)
[2019-08-21] MEDS: DIAZEPAM 5 MG TABLET GT SCH ×2 (08:25→21:00)
[2019-08-21] MEDS: ASCORBIC ACID 500 MG TABLET PO SCH ×2 (08:25→21:00)
[2019-08-21] MEDS: COD LIVER OIL/ZINC OXIDE OINT 113 GM TUBE TP SCH ×5 (08:26→21:00)
[2019-08-21] MEDS: HYDROGEN PEROXIDE 3% 118 ML BOTTLE TOP SCH ×2 (09:00→20:54)
--- NOTE | 2019-08-21 20:05 | NUR ---
PT RECEIVED ON CONTINUOUS VENT. TRACH IN PLACED AND SECURED WITH TRACH TIE. BACK UP TRACH AND AMBU BAG AT BEDSIDE. TRACH CARE DONE WITHOUT COMPLICATIONS NOTED. SUCTION MODERATE AMOUNT THICK WHITE SECRETIONS. VENT CHECKED, ALARMS WORKING WELL AND AUDIBLE. NO DISTRESS NOTED AT THIS TIME. WILL CONTINUE TO MONITOR.
[2019-08-21 20:09] VITALS: BP 139/85
[2019-08-21] MEDS: MAGNESIUM OXIDE 400 MG TABLET GT SCH (21:00)
[2019-08-21] MEDS: MULTIVIT, IRON, MIN NO. 8, FA TABLET GT SCH (21:00)
[2019-08-22] MEDS: VITAL AF 1.2 1,000 ML LIQUID GT PRN (04:47)
[2019-08-22] MEDS: OMEPRAZOLE 40MG GT SCH (05:14)
[2019-08-22] MEDS: POLYVINYL ALCOHOL OPHT DROPS 15 ML BOTTLE EACHEYE SCH ×2 (05:14→18:08)
[2019-08-22] MEDS: HYDROGEN PEROXIDE 3% 118 ML BOTTLE TOP SCH ×2 (07:05→20:56)
[2019-08-22 08:00] VITALS: BP 136/74
[2019-08-22] MEDS: ASPIRIN 81 MG TAB.CHEW GT SCH (08:02)
[2019-08-22] MEDS: levETIRAcetam 500 MG/5 ML LIQUID UDC GT SCH ×2 (08:03→21:06)
[2019-08-22] MEDS: AMIODARONE HCL 200 MG TABLET GT SCH (08:03)
[2019-08-22] MEDS: COD LIVER OIL/ZINC OXIDE OINT 113 GM TUBE TP SCH ×2 (08:04→21:09)
[2019-08-22] MEDS: ASCORBIC ACID 500 MG TABLET PO SCH ×2 (08:04→21:09)
[2019-08-22] MEDS: DIAZEPAM 5 MG TABLET GT SCH ×2 (08:04→21:09)
[2019-08-22] MEDS: METOPROLOL TARTRATE 50 MG TABLET GT SCH ×2 (08:04→21:08)
[2019-08-22] MEDS: PHENOBARBITAL 30 MG/7.5 ML LIQUID UDC GT SCH ×2 (08:04→21:09)
--- NOTE | 2019-08-22 09:22 | NUR ---
SEEN AND EXAMINED BY DR. TOLBERT AND WITH NEW ORDERS CARRIED OUT.
--- NOTE | 2019-08-22 09:42 | NUR ---
SEEN BY DR. TOLBERT AND WITH NNO.
[2019-08-22 20:48] VITALS: BP 155/106
[2019-08-22] MEDS: MAGNESIUM OXIDE 400 MG TABLET GT SCH (21:08)
[2019-08-22] MEDS: MULTIVIT, IRON, MIN NO. 8, FA TABLET GT SCH (21:09)
[2019-08-23] MEDS: POLYVINYL ALCOHOL OPHT DROPS 15 ML BOTTLE EACHEYE SCH ×2 (06:09→17:16)
[2019-08-23] MEDS: OMEPRAZOLE 40MG GT SCH (06:09)
[2019-08-23] MEDS: HYDROGEN PEROXIDE 3% 118 ML BOTTLE TOP SCH ×2 (07:50→20:53)
[2019-08-23 08:00] VITALS: BP 127/69
[2019-08-23] MEDS: levETIRAcetam 500 MG/5 ML LIQUID UDC GT SCH ×2 (08:44→20:49)
[2019-08-23] MEDS: AMIODARONE HCL 200 MG TABLET GT SCH (08:44)
[2019-08-23] MEDS: ASPIRIN 81 MG TAB.CHEW GT SCH (08:44)
[2019-08-23] MEDS: PHENOBARBITAL 30 MG/7.5 ML LIQUID UDC GT SCH ×2 (08:45→20:51)
[2019-08-23] MEDS: ASCORBIC ACID 500 MG TABLET PO SCH ×2 (08:45→20:51)
[2019-08-23] MEDS: DIAZEPAM 5 MG TABLET GT SCH ×2 (08:45→20:51)
[2019-08-23] MEDS: METOPROLOL TARTRATE 50 MG TABLET GT SCH ×2 (08:45→20:50)
[2019-08-23] MEDS: COD LIVER OIL/ZINC OXIDE OINT 113 GM TUBE TP SCH ×2 (08:45→20:52)
[2019-08-23 19:55] VITALS: BP 142/81
[2019-08-23] MEDS: MAGNESIUM OXIDE 400 MG TABLET GT SCH (20:50)
[2019-08-23] MEDS: MULTIVIT, IRON, MIN NO. 8, FA TABLET GT SCH (20:51)
[2019-08-24] MEDS: OMEPRAZOLE 40MG GT SCH (06:11)
[2019-08-24] MEDS: POLYVINYL ALCOHOL OPHT DROPS 15 ML BOTTLE EACHEYE SCH ×2 (06:11→18:27)
[2019-08-24] MEDS: VITAL AF 1.2 1,000 ML LIQUID GT PRN (07:05)
[2019-08-24 08:30] VITALS: BP 133/74
[2019-08-24] MEDS: HYDROGEN PEROXIDE 3% 118 ML BOTTLE TOP SCH ×2 (09:00→20:17)
[2019-08-24] MEDS: ASPIRIN 81 MG TAB.CHEW GT SCH (09:23)
[2019-08-24] MEDS: AMIODARONE HCL 200 MG TABLET GT SCH (09:25)
[2019-08-24] MEDS: levETIRAcetam 500 MG/5 ML LIQUID UDC GT SCH ×2 (09:26→21:23)
[2019-08-24] MEDS: METOPROLOL TARTRATE 50 MG TABLET GT SCH ×2 (09:26→21:24)
[2019-08-24] MEDS: PHENOBARBITAL 30 MG/7.5 ML LIQUID UDC GT SCH ×2 (09:26→21:24)
[2019-08-24] MEDS: COD LIVER OIL/ZINC OXIDE OINT 113 GM TUBE TP SCH ×2 (09:27→21:24)
[2019-08-24] MEDS: DIAZEPAM 5 MG TABLET GT SCH ×2 (09:27→21:24)
[2019-08-24] MEDS: ASCORBIC ACID 500 MG TABLET PO SCH ×2 (09:27→21:24)
--- NOTE | 2019-08-24 13:00 | NUR ---
SEEN BY FLASH Mclaughlin AND O.
--- NOTE | 2019-08-24 19:15 | NUR ---
RECEIVED PATIENT ON THE HT-50 VENT WITH THE FOLLOWING SETTINGS THAT ARE CHARTED ON THE MECHANICAL VENT NOTES. TRACH TUBE IS PATENT AND SECURED WITH TRACH TIES. HME CHANGED. TRACH CARE DONE. SUCTIONED SMALL AMOUNTS OF THICK WHITE/YELLOW SECRETIONS. VENT ALARMS CHECKED AND THEY ARE ON AND AUDIBLE. VENT IS PLUGGED IN THE RED OUTLET. BACK UP TRACH AND AMBU BAG IS BY BEDSIDE. PATIENT IS TOLERATING CURRENT VENT SETTINGS WELL AT THIS TIME WITH NO SOB NOTED. WILL CONTINUE TO MONITOR PATIENT.
[2019-08-24 20:26] VITALS: BP 154/87
[2019-08-24] MEDS: MAGNESIUM OXIDE 400 MG TABLET GT SCH (21:24)
[2019-08-24] MEDS: MULTIVIT, IRON, MIN NO. 8, FA TABLET GT SCH (21:24)
[2019-08-25] MEDS: POLYVINYL ALCOHOL OPHT DROPS 15 ML BOTTLE EACHEYE SCH ×2 (05:10→17:20)
[2019-08-25] MEDS: OMEPRAZOLE 40MG GT SCH (05:11)
[2019-08-25 07:56] VITALS: BP 157/90
[2019-08-25] MEDS: ASPIRIN 81 MG TAB.CHEW GT SCH (08:26)
[2019-08-25] MEDS: DIAZEPAM 5 MG TABLET GT SCH ×2 (08:28→21:13)
[2019-08-25] MEDS: levETIRAcetam 500 MG/5 ML LIQUID UDC GT SCH ×2 (08:28→21:11)
[2019-08-25] MEDS: AMIODARONE HCL 200 MG TABLET GT SCH (08:28)
[2019-08-25] MEDS: METOPROLOL TARTRATE 50 MG TABLET GT SCH ×2 (08:28→21:12)
[2019-08-25] MEDS: PHENOBARBITAL 30 MG/7.5 ML LIQUID UDC GT SCH ×2 (08:28→21:13)
[2019-08-25] MEDS: ASCORBIC ACID 500 MG TABLET PO SCH ×2 (08:28→21:13)
[2019-08-25] MEDS: COD LIVER OIL/ZINC OXIDE OINT 113 GM TUBE TP SCH ×2 (08:28→21:13)
[2019-08-25] MEDS: HYDROGEN PEROXIDE 3% 118 ML BOTTLE TOP SCH ×2 (09:00→20:55)
--- NOTE | 2019-08-25 15:08 | NUR ---
Seen and examined by Layne Carrillo,no new orders noted.
[2019-08-25 19:49] VITALS: BP 143/89
--- NOTE | 2019-08-25 20:05 | NUR ---
PT RECEIVED ON CONTINUOUS VENT. TRACH IN PLACED AND SECURED WITH TRACH TIE. BACK UP TRACH AND AMBU BAG AT BEDSIDE. SUCTION PRN. TRACH CARE DONE WITHOUT COMPLICATIONS NOTED. VENT CIRCUIT CHANGED. VENT CHECKED, ALARMS WORKING WELL AND AUDIBLE. NO DISTRESS NOTED AT THIS TIME. WILL CONTINUE TO MONITOR.
[2019-08-25] MEDS: MAGNESIUM OXIDE 400 MG TABLET GT SCH (21:12)
[2019-08-25] MEDS: MULTIVIT, IRON, MIN NO. 8, FA TABLET GT SCH (21:13)
[2019-08-26] MEDS: POLYVINYL ALCOHOL OPHT DROPS 15 ML BOTTLE EACHEYE SCH ×2 (05:30→18:23)
[2019-08-26] MEDS: OMEPRAZOLE 40MG GT SCH (05:30)
[2019-08-26 06:55] LABS: BASOPHILS % (AUTO) 0.5 % (0.0-2.0); EOSINOPHILS # (AUTO) 0.2 K/uL (0.0-0.7); EOSINOPHILS % (AUTO) 2.6 % (0.0-7.0); HEMATOCRIT 24.8 % (31.2-41.9); HEMOGLOBIN 8.5 g/dL (10.9-14.3); LYMPHOCYTES # (AUTO) 1.1 K/uL (20.0-40.0); LYMPHOCYTES % (AUTO) 17.4 % (20.5-51.5); MEAN CORPUSCULAR HEMOGLOBIN 29.4 uug (24.7-32.8); MEAN CORPUSCULAR HGB CONC 34 g/dL (32.3-35.6); MEAN CORPUSCULAR VOLUME 85.7 fL (75.5-95.3); MONOCYTES # (AUTO) 0.4 K/uL (2.0-10.0); MONOCYTES % (AUTO) 6.1 % (0.0-11.0); NEUTROPHILS # (AUTO) 4.5 K/uL (1.8-8.9); NEUTROPHILS % (AUTO) 73.4 % (38.5-71.5); PLATELET COUNT (AUTO) 210 K/uL (179-408); WHITE BLOOD COUNT (AUTO) 6.1 K/uL (3.8-11.8)
[2019-08-26 07:24] LABS: BILIRUBIN,TOTAL 0.3 mg/dL (0.2-1.0); CREATININE 0.5 mg/dL (0.6-1.3); PHOSPHOROUS 4.1 mg/dL (2.5-4.9); POTASSIUM 4.1 mmol/L (3.5-5.1); TOTAL PROTEIN, SERUM 7.9 g/dL (6.4-8.2)
[2019-08-26] MEDS: ASPIRIN 81 MG TAB.CHEW GT SCH (08:27)
[2019-08-26] MEDS: AMIODARONE HCL 200 MG TABLET GT SCH (08:27)
[2019-08-26] MEDS: levETIRAcetam 500 MG/5 ML LIQUID UDC GT SCH ×2 (08:27→21:17)
[2019-08-26] MEDS: ASCORBIC ACID 500 MG TABLET PO SCH ×2 (08:28→21:18)
[2019-08-26] MEDS: PHENOBARBITAL 30 MG/7.5 ML LIQUID UDC GT SCH ×2 (08:28→21:18)
[2019-08-26] MEDS: DIAZEPAM 5 MG TABLET GT SCH ×2 (08:28→21:18)
[2019-08-26] MEDS: COD LIVER OIL/ZINC OXIDE OINT 113 GM TUBE TP SCH ×2 (08:28→21:18)
[2019-08-26] MEDS: METOPROLOL TARTRATE 50 MG TABLET GT SCH ×2 (08:28→21:18)
[2019-08-26] MEDS: HYDROGEN PEROXIDE 3% 118 ML BOTTLE TOP SCH ×2 (08:58→21:11)
[2019-08-26 11:11] VITALS: BP 113/73
[2019-08-26 20:13] VITALS: BP 122/66
[2019-08-26] MEDS: MULTIVIT, IRON, MIN NO. 8, FA TABLET GT SCH (21:18)
[2019-08-26] MEDS: MAGNESIUM OXIDE 400 MG TABLET GT SCH (21:18)
[2019-08-27] MEDS: OMEPRAZOLE 40MG GT SCH (05:18)
[2019-08-27] MEDS: VITAL AF 1.2 1,000 ML LIQUID GT PRN (05:18)
[2019-08-27] MEDS: POLYVINYL ALCOHOL OPHT DROPS 15 ML BOTTLE EACHEYE SCH ×2 (05:18→17:38)
[2019-08-27] MEDS: AMIODARONE HCL 200 MG TABLET GT SCH (08:42)
[2019-08-27] MEDS: ASPIRIN 81 MG TAB.CHEW GT SCH (08:42)
[2019-08-27] MEDS: levETIRAcetam 500 MG/5 ML LIQUID UDC GT SCH ×2 (08:43→21:36)
[2019-08-27] MEDS: COD LIVER OIL/ZINC OXIDE OINT 113 GM TUBE TP SCH ×2 (08:44→21:39)
[2019-08-27] MEDS: DIAZEPAM 5 MG TABLET GT SCH ×2 (08:44→21:39)
[2019-08-27] MEDS: METOPROLOL TARTRATE 50 MG TABLET GT SCH ×2 (08:44→21:36)
[2019-08-27] MEDS: PHENOBARBITAL 30 MG/7.5 ML LIQUID UDC GT SCH ×2 (08:44→21:39)
[2019-08-27] MEDS: ASCORBIC ACID 500 MG TABLET PO SCH ×2 (08:44→21:39)
[2019-08-27] MEDS: HYDROGEN PEROXIDE 3% 118 ML BOTTLE TOP SCH ×2 (10:11→21:28)
[2019-08-27 14:44] VITALS: BP 140/94
[2019-08-27 20:23] VITALS: BP 129/92
[2019-08-27] MEDS: MAGNESIUM OXIDE 400 MG TABLET GT SCH (21:38)
[2019-08-27] MEDS: MULTIVIT, IRON, MIN NO. 8, FA TABLET GT SCH (21:39)
[2019-08-28] MEDS: VITAL AF 1.2 1,000 ML LIQUID GT PRN (01:34)
[2019-08-28] MEDS: OMEPRAZOLE 40MG GT SCH (05:40)
[2019-08-28] MEDS: POLYVINYL ALCOHOL OPHT DROPS 15 ML BOTTLE EACHEYE SCH ×2 (05:40→17:04)
[2019-08-28] MEDS: ASPIRIN 81 MG TAB.CHEW GT SCH (08:44)
[2019-08-28] MEDS: AMIODARONE HCL 200 MG TABLET GT SCH (08:45)
[2019-08-28] MEDS: levETIRAcetam 500 MG/5 ML LIQUID UDC GT SCH ×2 (08:45→21:37)
[2019-08-28] MEDS: DIAZEPAM 5 MG TABLET GT SCH ×2 (08:46→21:39)
[2019-08-28] MEDS: METOPROLOL TARTRATE 50 MG TABLET GT SCH ×2 (08:46→21:43)
[2019-08-28] MEDS: ASCORBIC ACID 500 MG TABLET PO SCH ×2 (08:46→21:39)
[2019-08-28] MEDS: PHENOBARBITAL 30 MG/7.5 ML LIQUID UDC GT SCH ×2 (08:46→21:39)
[2019-08-28] MEDS: COD LIVER OIL/ZINC OXIDE OINT 113 GM TUBE TP SCH ×2 (08:46→21:39)
[2019-08-28] MEDS: HYDROGEN PEROXIDE 3% 118 ML BOTTLE TOP SCH ×2 (11:00→21:28)
[2019-08-28 11:09] VITALS: BP 159/92
--- NOTE | 2019-08-28 20:00 | NUR ---
PT RECEIVED ON CONTINUOUS VENT. TRACH IN PLACED AND SECURED WITH TRACH TIE. BACK UP TRACH AND AMBU BAG AT BEDSIDE. TRACH CARE DONE. SUCTION COPIOUS AMOUNT THICK WHITE AND PALE YELLOW SECRETIONS. VENT CHECKED, ALARMS WORKING WELL AND AUDIBLE. NO DISTRESS NOTED AT THIS TIME. WILL CONTINUE TO MONITOR.
[2019-08-28 20:52] VITALS: BP 99/62
[2019-08-28] MEDS: MAGNESIUM OXIDE 400 MG TABLET GT SCH (21:39)
[2019-08-28] MEDS: MULTIVIT, IRON, MIN NO. 8, FA TABLET GT SCH (21:43)
[2019-08-29] MEDS: VITAL AF 1.2 1,000 ML LIQUID GT PRN (01:40)
[2019-08-29] MEDS: POLYVINYL ALCOHOL OPHT DROPS 15 ML BOTTLE EACHEYE SCH ×2 (05:14→17:38)
[2019-08-29] MEDS: OMEPRAZOLE 40MG GT SCH (05:14)
[2019-08-29 08:00] VITALS: BP 110/67
[2019-08-29] MEDS: HYDROGEN PEROXIDE 3% 118 ML BOTTLE TOP SCH ×2 (08:07→20:53)
[2019-08-29] MEDS: levETIRAcetam 500 MG/5 ML LIQUID UDC GT SCH ×2 (08:13→21:47)
[2019-08-29] MEDS: AMIODARONE HCL 200 MG TABLET GT SCH (08:13)
[2019-08-29] MEDS: ASPIRIN 81 MG TAB.CHEW GT SCH (08:13)
[2019-08-29] MEDS: COD LIVER OIL/ZINC OXIDE OINT 113 GM TUBE TP SCH ×2 (08:14→21:49)
[2019-08-29] MEDS: METOPROLOL TARTRATE 50 MG TABLET GT SCH ×2 (08:14→21:48)
[2019-08-29] MEDS: ASCORBIC ACID 500 MG TABLET PO SCH ×2 (08:14→21:49)
[2019-08-29] MEDS: PHENOBARBITAL 30 MG/7.5 ML LIQUID UDC GT SCH ×2 (08:14→21:48)
[2019-08-29] MEDS: DIAZEPAM 5 MG TABLET GT SCH ×2 (08:14→21:49)
--- NOTE | 2019-08-29 20:00 | NUR ---
PT RECEIVED ON CONTINUOUS VENT. TRACH IN PLACED AND SECURED WITH TRACH TIE. BACK UP TRACH AND AMBU BAG AT BEDSIDE. TRACH CARE DONE. SUCTION PRN. VENT CHECKED, ALARMS WORKING WELL AND AUDIBLE. NO DISTRESS NOTED AT THIS TIME. WILL CONTINUE TO MONITOR.
[2019-08-29 20:23] VITALS: BP 152/92
[2019-08-29] MEDS: MAGNESIUM OXIDE 400 MG TABLET GT SCH (21:48)
[2019-08-29] MEDS: MULTIVIT, IRON, MIN NO. 8, FA TABLET GT SCH (21:49)
[2019-08-30] MEDS: VITAL AF 1.2 1,000 ML LIQUID GT PRN ×2 (01:59→22:48)
[2019-08-30] MEDS: OMEPRAZOLE 40MG GT SCH (05:34)
[2019-08-30] MEDS: POLYVINYL ALCOHOL OPHT DROPS 15 ML BOTTLE EACHEYE SCH ×2 (05:34→17:07)
[2019-08-30 08:30] VITALS: BP 160/92
[2019-08-30] MEDS: ASPIRIN 81 MG TAB.CHEW GT SCH (08:49)
[2019-08-30] MEDS: ASCORBIC ACID 500 MG TABLET PO SCH ×2 (08:50→21:00)
[2019-08-30] MEDS: PHENOBARBITAL 30 MG/7.5 ML LIQUID UDC GT SCH ×2 (08:50→21:00)
[2019-08-30] MEDS: METOPROLOL TARTRATE 50 MG TABLET GT SCH ×2 (08:50→20:51)
[2019-08-30] MEDS: AMIODARONE HCL 200 MG TABLET GT SCH (08:50)
[2019-08-30] MEDS: DIAZEPAM 5 MG TABLET GT SCH ×2 (08:50→21:00)
[2019-08-30] MEDS: levETIRAcetam 500 MG/5 ML LIQUID UDC GT SCH ×2 (08:50→20:51)
[2019-08-30] MEDS: COD LIVER OIL/ZINC OXIDE OINT 113 GM TUBE TP SCH ×2 (08:50→21:00)
[2019-08-30] MEDS: HYDROGEN PEROXIDE 3% 118 ML BOTTLE TOP SCH ×2 (10:30→20:39)
--- NOTE | 2019-08-30 20:10 | NUR ---
PT RECEIVED ON CONTINUOUS VENT. TRACH IN PLACED AND SECURED WITH TRACH TIE. BACK UP TRACH AND AMBU BAG AT BEDSIDE. TRACH CARE DONE. VENT CHECKED, ALARMS WORKING WELL AND AUDIBLE. NO DISTRESS NOTED AT THIS TIME. WILL CONTINUE TO MONITOR.
[2019-08-30 20:47] VITALS: BP 142/88
[2019-08-30] MEDS: MAGNESIUM OXIDE 400 MG TABLET GT SCH (20:59)
[2019-08-30] MEDS: MULTIVIT, IRON, MIN NO. 8, FA TABLET GT SCH (21:00)
[2019-08-31] MEDS: POLYVINYL ALCOHOL OPHT DROPS 15 ML BOTTLE EACHEYE SCH ×2 (05:25→17:01)
[2019-08-31] MEDS: OMEPRAZOLE 40MG GT SCH (05:26)
[2019-08-31 08:07] VITALS: BP 142/84
[2019-08-31] MEDS: ASPIRIN 81 MG TAB.CHEW GT SCH (08:39)
[2019-08-31] MEDS: levETIRAcetam 500 MG/5 ML LIQUID UDC GT SCH ×2 (08:41→21:17)
[2019-08-31] MEDS: ASCORBIC ACID 500 MG TABLET PO SCH ×2 (08:42→21:18)
[2019-08-31] MEDS: PHENOBARBITAL 30 MG/7.5 ML LIQUID UDC GT SCH ×2 (08:42→21:17)
[2019-08-31] MEDS: DIAZEPAM 5 MG TABLET GT SCH ×2 (08:42→21:18)
[2019-08-31] MEDS: AMIODARONE HCL 200 MG TABLET GT SCH (08:43)
[2019-08-31] MEDS: METOPROLOL TARTRATE 50 MG TABLET GT SCH ×2 (08:43→21:17)
[2019-08-31] MEDS: COD LIVER OIL/ZINC OXIDE OINT 113 GM TUBE TP SCH ×2 (08:44→21:18)
[2019-08-31] MEDS: HYDROGEN PEROXIDE 3% 118 ML BOTTLE TOP SCH ×2 (09:00→19:35)
--- NOTE | 2019-08-31 11:28 | NUR ---
SEEN BY RAMÍREZ BARROSO WITH NO NEW ORDER.
[2019-08-31] MEDS: VITAL AF 1.2 1,000 ML LIQUID GT PRN (18:05)
[2019-08-31 20:40] VITALS: BP 146/90
[2019-08-31] MEDS: MAGNESIUM OXIDE 400 MG TABLET GT SCH (21:17)
[2019-08-31] MEDS: MULTIVIT, IRON, MIN NO. 8, FA TABLET GT SCH (21:18)
[2019-09-01] MEDS: POLYVINYL ALCOHOL OPHT DROPS 15 ML BOTTLE EACHEYE SCH ×2 (06:05→18:07)
[2019-09-01] MEDS: OMEPRAZOLE 40MG GT SCH (06:06)
[2019-09-01 08:09] VITALS: BP 136/74
[2019-09-01] MEDS: METOPROLOL TARTRATE 50 MG TABLET GT SCH ×2 (08:15→21:05)
[2019-09-01] MEDS: AMIODARONE HCL 200 MG TABLET GT SCH (08:15)
[2019-09-01] MEDS: ASPIRIN 81 MG TAB.CHEW GT SCH (08:15)
[2019-09-01] MEDS: levETIRAcetam 500 MG/5 ML LIQUID UDC GT SCH ×2 (08:16→21:04)
[2019-09-01] MEDS: ASCORBIC ACID 500 MG TABLET PO SCH ×2 (08:16→21:06)
[2019-09-01] MEDS: PHENOBARBITAL 30 MG/7.5 ML LIQUID UDC GT SCH ×2 (08:16→21:05)
[2019-09-01] MEDS: DIAZEPAM 5 MG TABLET GT SCH ×2 (08:16→21:06)
[2019-09-01] MEDS: COD LIVER OIL/ZINC OXIDE OINT 113 GM TUBE TP SCH ×2 (08:17→21:07)
[2019-09-01] MEDS: HYDROGEN PEROXIDE 3% 118 ML BOTTLE TOP SCH ×2 (09:00→21:13)
--- NOTE | 2019-09-01 15:05 | NUR ---
INTERDISCIPLINARY PLAN OF CARE CONFERENCE was held today. Patient's family does not attend the meeting. Dr. Lora and the Interdisciplinary Team reviewed the current plan of care in detail. RN reported on patient's current medical condition. Patient continues to remain on isolation precautions for ESVL. No major changes in condition were reported. See RN IDT conference notes. See also all other disciplines IDT notes and physician's progress notes for additional details.
--- NOTE | 2019-09-01 17:25 | NUR ---
Pharmacy Update from Today's 09/01/19 IDT Meeting Note: Pt was transferred to CCU 07/23-07/31 for afib and severe sepsis (hypotension resistant to IV fluids, SRINIVAS, fever, previous ongoing UTI tx). Pt was stabilized with pressors, amiodarone and also treated per ID with amikacin and vanco po for c diff. Now transferred back to for ongoing treatment to finish course of abxs. VS: Temp 97.6 BP 146/90 HR 84 LABS: (from 08/26/19) Wbc 6.1 H/H 8.5/24.8 Plt 210 Na 138 K 4.1 Cl 101 CO2 30 BUN/Scr 26/0.5 BS 95 Ca 9.2 phos 4.1 Mg 2.0 MEDICATION USE REVIEWED: > Pt not on any anti-psych medications > Pt continues on Keppra 2000mg q12hr since 12/02/18; CrCl >100 ml/min, renal function ok for current dose. No reported seizures > Pt nn Phenobarbital 129.6mg q12hr since 07/23/19. Last level 07/21/19 was 32.4 (15-39), within therapeutic range > Pt restarted Valium 5mg q12hr since 08/05 for muscle twitching/residual seizure activity per neurology. PRN also added > Pt started on Magnesium Oxide 400mg daily since 08/03. Last Mg 2.0 > Pt on Omeprazole 40mg daily since 08/02/19, ok dose per renal function PRN MED USAGE: (Dec) Tylenol PRN pain/temp used x1 Zofran PRN used x0 Valium PRN musc twitching used x0 NEW ORDERS NOTED: > NA Patient was reviewed and discussed in depth per IDT team with no medication issues at this time. No further recommendations at this time per Rx, remains stable on current regimen. Will continue follow
[2019-09-01] MEDS: MAGNESIUM OXIDE 400 MG TABLET GT SCH (21:05)
[2019-09-01] MEDS: MULTIVIT, IRON, MIN NO. 8, FA TABLET GT SCH (21:06)
[2019-09-01 23:44] VITALS: BP 100/52
[2019-09-02] MEDS: OMEPRAZOLE 40MG GT SCH (06:16)
[2019-09-02] MEDS: POLYVINYL ALCOHOL OPHT DROPS 15 ML BOTTLE EACHEYE SCH ×2 (06:16→18:19)
[2019-09-02 08:07] VITALS: BP 135/85
[2019-09-02] MEDS: ASPIRIN 81 MG TAB.CHEW GT SCH (08:12)
[2019-09-02] MEDS: AMIODARONE HCL 200 MG TABLET GT SCH (08:12)
[2019-09-02] MEDS: levETIRAcetam 500 MG/5 ML LIQUID UDC GT SCH ×2 (08:13→21:36)
[2019-09-02] MEDS: COD LIVER OIL/ZINC OXIDE OINT 113 GM TUBE TP SCH ×2 (08:14→21:38)
[2019-09-02] MEDS: ASCORBIC ACID 500 MG TABLET PO SCH ×2 (08:14→21:38)
[2019-09-02] MEDS: METOPROLOL TARTRATE 50 MG TABLET GT SCH ×2 (08:14→21:37)
[2019-09-02] MEDS: DIAZEPAM 5 MG TABLET GT SCH ×2 (08:15→21:38)
[2019-09-02] MEDS: PHENOBARBITAL 30 MG/7.5 ML LIQUID UDC GT SCH ×2 (08:15→21:38)
[2019-09-02] MEDS: HYDROGEN PEROXIDE 3% 118 ML BOTTLE TOP SCH ×2 (09:00→21:00)
[2019-09-02] MEDS: VITAL AF 1.2 1,000 ML LIQUID GT PRN (12:40)
[2019-09-02 20:26] VITALS: BP 112/69
[2019-09-02] MEDS: MAGNESIUM OXIDE 400 MG TABLET GT SCH (21:37)
[2019-09-02] MEDS: MULTIVIT, IRON, MIN NO. 8, FA TABLET GT SCH (21:38)
[2019-09-03] MEDS: POLYVINYL ALCOHOL OPHT DROPS 15 ML BOTTLE EACHEYE SCH ×2 (05:02→17:50)
[2019-09-03] MEDS: OMEPRAZOLE 40MG GT SCH (05:02)
[2019-09-03] MEDS: ASPIRIN 81 MG TAB.CHEW GT SCH (08:27)
[2019-09-03] MEDS: levETIRAcetam 500 MG/5 ML LIQUID UDC GT SCH ×2 (08:30→21:54)
[2019-09-03] MEDS: AMIODARONE HCL 200 MG TABLET GT SCH (08:30)
[2019-09-03] MEDS: ASCORBIC ACID 500 MG TABLET PO SCH ×2 (08:31→21:59)
[2019-09-03] MEDS: METOPROLOL TARTRATE 50 MG TABLET GT SCH ×2 (08:31→21:55)
[2019-09-03] MEDS: PHENOBARBITAL 30 MG/7.5 ML LIQUID UDC GT SCH ×2 (08:31→21:57)
[2019-09-03] MEDS: COD LIVER OIL/ZINC OXIDE OINT 113 GM TUBE TP SCH ×2 (08:31→21:00)
[2019-09-03] MEDS: DIAZEPAM 5 MG TABLET GT SCH ×2 (08:31→21:58)
[2019-09-03 08:32] VITALS: BP 125/75
[2019-09-03] MEDS: HYDROGEN PEROXIDE 3% 118 ML BOTTLE TOP SCH ×2 (09:47→21:12)
[2019-09-03 10:55] VITALS: BP 164/87
[2019-09-03] MEDS: VITAL AF 1.2 1,000 ML LIQUID GT PRN (12:09)
--- NOTE | 2019-09-03 18:25 | NUR ---
SEEN BY DR. TOMASZ MADISON.
[2019-09-03 20:56] VITALS: BP 132/79
[2019-09-03] MEDS: MAGNESIUM OXIDE 400 MG TABLET GT SCH (21:55)
[2019-09-03] MEDS: MULTIVIT, IRON, MIN NO. 8, FA TABLET GT SCH (21:57)
[2019-09-04] MEDS: OMEPRAZOLE 40MG GT SCH (05:34)
[2019-09-04] MEDS: POLYVINYL ALCOHOL OPHT DROPS 15 ML BOTTLE EACHEYE SCH ×2 (05:34→17:14)
[2019-09-04] MEDS: levETIRAcetam 500 MG/5 ML LIQUID UDC GT SCH ×2 (08:14→20:51)
[2019-09-04] MEDS: ASPIRIN 81 MG TAB.CHEW GT SCH (08:14)
[2019-09-04] MEDS: AMIODARONE HCL 200 MG TABLET GT SCH (08:14)
[2019-09-04] MEDS: PHENOBARBITAL 30 MG/7.5 ML LIQUID UDC GT SCH ×2 (08:19→20:53)
[2019-09-04] MEDS: ASCORBIC ACID 500 MG TABLET PO SCH ×2 (08:19→20:52)
[2019-09-04] MEDS: METOPROLOL TARTRATE 50 MG TABLET GT SCH ×2 (08:19→20:51)
[2019-09-04] MEDS: DIAZEPAM 5 MG TABLET GT SCH ×2 (08:19→20:53)
[2019-09-04] MEDS: COD LIVER OIL/ZINC OXIDE OINT 113 GM TUBE TP SCH ×2 (08:30→20:53)
[2019-09-04] MEDS: HYDROGEN PEROXIDE 3% 118 ML BOTTLE TOP SCH ×2 (09:00→21:00)
[2019-09-04 10:38] VITALS: BP 149/78
[2019-09-04] MEDS: MAGNESIUM OXIDE 400 MG TABLET GT SCH (20:51)
[2019-09-04] MEDS: MULTIVIT, IRON, MIN NO. 8, FA TABLET GT SCH (20:52)
[2019-09-04 20:53] VITALS: BP 99/66
[2019-09-05] MEDS: POLYVINYL ALCOHOL OPHT DROPS 15 ML BOTTLE EACHEYE SCH ×2 (05:08→17:19)
[2019-09-05] MEDS: OMEPRAZOLE 40MG GT SCH (05:08)
[2019-09-05] MEDS: VITAL AF 1.2 1,000 ML LIQUID GT PRN (05:08)
[2019-09-05 08:06] VITALS: BP 121/61
[2019-09-05] MEDS: HYDROGEN PEROXIDE 3% 118 ML BOTTLE TOP SCH ×2 (08:19→21:13)
[2019-09-05] MEDS: levETIRAcetam 500 MG/5 ML LIQUID UDC GT SCH ×2 (08:30→21:17)
[2019-09-05] MEDS: AMIODARONE HCL 200 MG TABLET GT SCH (08:30)
[2019-09-05] MEDS: ASPIRIN 81 MG TAB.CHEW GT SCH (08:30)
[2019-09-05] MEDS: PHENOBARBITAL 30 MG/7.5 ML LIQUID UDC GT SCH ×2 (08:32→21:19)
[2019-09-05] MEDS: COD LIVER OIL/ZINC OXIDE OINT 113 GM TUBE TP SCH ×2 (08:32→21:18)
[2019-09-05] MEDS: DIAZEPAM 5 MG TABLET GT SCH ×2 (08:32→21:18)
[2019-09-05] MEDS: ASCORBIC ACID 500 MG TABLET PO SCH ×2 (08:32→21:18)
[2019-09-05] MEDS: METOPROLOL TARTRATE 50 MG TABLET GT SCH ×2 (08:32→21:18)
[2019-09-05 20:58] VITALS: BP 116/72
[2019-09-05] MEDS: MAGNESIUM OXIDE 400 MG TABLET GT SCH (21:18)
[2019-09-05] MEDS: MULTIVIT, IRON, MIN NO. 8, FA TABLET GT SCH (21:18)
[2019-09-06] MEDS: POLYVINYL ALCOHOL OPHT DROPS 15 ML BOTTLE EACHEYE SCH ×2 (05:15→17:58)
[2019-09-06] MEDS: VITAL AF 1.2 1,000 ML LIQUID GT PRN ×2 (05:15→22:07)
[2019-09-06] MEDS: OMEPRAZOLE 40MG GT SCH (05:15)
[2019-09-06] MEDS: ASPIRIN 81 MG TAB.CHEW GT SCH (08:15)
[2019-09-06] MEDS: AMIODARONE HCL 200 MG TABLET GT SCH (08:24)
[2019-09-06] MEDS: levETIRAcetam 500 MG/5 ML LIQUID UDC GT SCH ×2 (08:24→21:02)
[2019-09-06] MEDS: METOPROLOL TARTRATE 50 MG TABLET GT SCH ×2 (08:25→21:00)
[2019-09-06] MEDS: DIAZEPAM 5 MG TABLET GT SCH ×2 (08:32→21:02)
[2019-09-06] MEDS: PHENOBARBITAL 30 MG/7.5 ML LIQUID UDC GT SCH ×2 (08:32→21:02)
[2019-09-06] MEDS: ASCORBIC ACID 500 MG TABLET PO SCH ×2 (08:32→21:02)
[2019-09-06] MEDS: COD LIVER OIL/ZINC OXIDE OINT 113 GM TUBE TP SCH ×2 (08:33→21:02)
[2019-09-06] MEDS: HYDROGEN PEROXIDE 3% 118 ML BOTTLE TOP SCH ×2 (08:35→20:58)
[2019-09-06 11:03] VITALS: BP 126/88
[2019-09-06] MEDS: MULTIVIT, IRON, MIN NO. 8, FA TABLET GT SCH (21:02)
[2019-09-06] MEDS: MAGNESIUM OXIDE 400 MG TABLET GT SCH (21:02)
[2019-09-06 21:16] VITALS: BP 127/82
[2019-09-07] MEDS: POLYVINYL ALCOHOL OPHT DROPS 15 ML BOTTLE EACHEYE SCH ×2 (05:42→18:15)
[2019-09-07] MEDS: OMEPRAZOLE 40MG GT SCH (05:42)
[2019-09-07] MEDS: VITAL AF 1.2 1,000 ML LIQUID GT PRN (05:42)
[2019-09-07] MEDS: HYDROGEN PEROXIDE 3% 118 ML BOTTLE TOP SCH ×2 (09:00→21:53)
[2019-09-07] MEDS: AMIODARONE HCL 200 MG TABLET GT SCH (09:09)
[2019-09-07] MEDS: ASPIRIN 81 MG TAB.CHEW GT SCH (09:09)
[2019-09-07] MEDS: DIAZEPAM 5 MG TABLET GT SCH ×2 (09:09→20:54)
[2019-09-07] MEDS: PHENOBARBITAL 30 MG/7.5 ML LIQUID UDC GT SCH ×2 (09:09→20:54)
[2019-09-07] MEDS: METOPROLOL TARTRATE 50 MG TABLET GT SCH ×2 (09:09→20:55)
[2019-09-07] MEDS: levETIRAcetam 500 MG/5 ML LIQUID UDC GT SCH ×2 (09:09→20:55)
[2019-09-07] MEDS: ASCORBIC ACID 500 MG TABLET PO SCH ×2 (09:10→20:55)
[2019-09-07] MEDS: COD LIVER OIL/ZINC OXIDE OINT 113 GM TUBE TP SCH ×2 (09:10→20:56)
[2019-09-07 11:15] VITALS: BP 120/69
--- NOTE | 2019-09-07 12:00 | NUR ---
SEEN BY FLASH Mclaughlin AND WITH NNO.
--- NOTE | 2019-09-07 18:00 | NUR ---
NEW ORDER WAS CARRIED OUT FROM DR. ANTON (NEUROLOGIST)PER PHARMACIST REQUEST PROTOCOL FOR PHENOBARBITAL LEVEL AND CARRIED OUT.
[2019-09-07] MEDS: MULTIVIT, IRON, MIN NO. 8, FA TABLET GT SCH (20:54)
[2019-09-07] MEDS: MAGNESIUM OXIDE 400 MG TABLET GT SCH (20:55)
[2019-09-07 22:22] VITALS: BP 138/84
--- NOTE | 2019-09-07 23:37 | NUR ---
Seen and examined by Dr. Mead with no new orders.
[2019-09-08] MEDS: POLYVINYL ALCOHOL OPHT DROPS 15 ML BOTTLE EACHEYE SCH ×2 (05:07→17:46)
[2019-09-08] MEDS: OMEPRAZOLE 40MG GT SCH (05:07)
[2019-09-08 08:30] VITALS: BP 124/81
[2019-09-08] MEDS: ASPIRIN 81 MG TAB.CHEW GT SCH (08:44)
[2019-09-08] MEDS: DIAZEPAM 5 MG TABLET GT SCH ×2 (08:45→21:17)
[2019-09-08] MEDS: COD LIVER OIL/ZINC OXIDE OINT 113 GM TUBE TP SCH ×2 (08:45→21:18)
[2019-09-08] MEDS: METOPROLOL TARTRATE 50 MG TABLET GT SCH ×2 (08:45→21:17)
[2019-09-08] MEDS: levETIRAcetam 500 MG/5 ML LIQUID UDC GT SCH ×2 (08:45→21:17)
[2019-09-08] MEDS: ASCORBIC ACID 500 MG TABLET PO SCH ×2 (08:45→21:18)
[2019-09-08] MEDS: AMIODARONE HCL 200 MG TABLET GT SCH (08:45)
[2019-09-08] MEDS: PHENOBARBITAL 30 MG/7.5 ML LIQUID UDC GT SCH ×2 (08:45→21:17)
[2019-09-08] MEDS: HYDROGEN PEROXIDE 3% 118 ML BOTTLE TOP SCH ×2 (09:00→21:19)
--- NOTE | 2019-09-08 11:00 | NUR ---
Seen and examined by Layne Carrillo,no new orders.
[2019-09-08] MEDS: VITAL AF 1.2 1,000 ML LIQUID GT PRN (17:46)
[2019-09-08 20:11] VITALS: BP 140/89
[2019-09-08] MEDS: MULTIVIT, IRON, MIN NO. 8, FA TABLET GT SCH (21:17)
[2019-09-08] MEDS: MAGNESIUM OXIDE 400 MG TABLET GT SCH (21:17)
--- NOTE | 2019-09-09 01:38 | NUR ---
PT ON CONT HT 50 VENT WITH TRACH IN PLACE, WITH NO VENT CHANGES MADE, GOOD COUGH EFFORT, SUCTIONED LIGHT PALE YELL TINGE SECRETIONS, CHECK CUFF, CHANGE HME, TRACH CARE DONE, AMBU BAG AT BEDSIDE.Helena BROUSSARDP Addendum: 09/09/19 at 0139 by KSENIA MONTGOMERY RT Amended: Links added.
[2019-09-09] MEDS: OMEPRAZOLE 40MG GT SCH (06:02)
[2019-09-09] MEDS: POLYVINYL ALCOHOL OPHT DROPS 15 ML BOTTLE EACHEYE SCH ×2 (06:02→17:40)
--- NOTE | 2019-09-09 07:30 | NUR ---
PT REC'D ON BROCK VENT TOLERATING CURRENT VENT SETTINGS WELL, NO DISTRESS NOTED GIVEN IN AM REPORT. PT VENT'D VIA TRACHEOSTOMY, TUBE IN PLACE PATENT AND SECURE WITH TRACH TIE. SXN'ING NEEDED. VENT ALARMS AUDIBLE, CHECKED AND RESET. BVM AND BACK-UP TRACH AT BEDSIDE.
[2019-09-09] MEDS: ASPIRIN 81 MG TAB.CHEW GT SCH (08:13)
[2019-09-09] MEDS: levETIRAcetam 500 MG/5 ML LIQUID UDC GT SCH ×2 (08:13→21:27)
[2019-09-09] MEDS: AMIODARONE HCL 200 MG TABLET GT SCH (08:13)
[2019-09-09] MEDS: ASCORBIC ACID 500 MG TABLET PO SCH ×2 (08:14→21:29)
[2019-09-09] MEDS: METOPROLOL TARTRATE 50 MG TABLET GT SCH ×2 (08:14→21:00)
[2019-09-09] MEDS: PHENOBARBITAL 30 MG/7.5 ML LIQUID UDC GT SCH ×2 (08:15→21:29)
[2019-09-09] MEDS: DIAZEPAM 5 MG TABLET GT SCH ×2 (08:15→21:29)
[2019-09-09] MEDS: COD LIVER OIL/ZINC OXIDE OINT 113 GM TUBE TP SCH ×2 (08:15→21:29)
[2019-09-09] MEDS: HYDROGEN PEROXIDE 3% 118 ML BOTTLE TOP SCH ×2 (08:18→21:09)
[2019-09-09 11:26] VITALS: BP 127/14
--- NOTE | 2019-09-09 19:27 | NUR ---
Seen and examined by Dr Lora,with new orders noted.
[2019-09-09 20:00] VITALS: BP_SYST 130; BP_SYST 92; BP_DIAS 55; BP_DIAS 69
[2019-09-09] MEDS: MAGNESIUM OXIDE 400 MG TABLET GT SCH (21:27)
[2019-09-09] MEDS: MULTIVIT, IRON, MIN NO. 8, FA TABLET GT SCH (21:27)
[2019-09-10] MEDS: POLYVINYL ALCOHOL OPHT DROPS 15 ML BOTTLE EACHEYE SCH ×2 (05:39→17:10)
[2019-09-10] MEDS: OMEPRAZOLE 40MG GT SCH (05:39)
[2019-09-10] MEDS: ASPIRIN 81 MG TAB.CHEW GT SCH (08:39)
[2019-09-10] MEDS: METOPROLOL TARTRATE 50 MG TABLET GT SCH ×2 (08:39→21:00)
[2019-09-10] MEDS: levETIRAcetam 500 MG/5 ML LIQUID UDC GT SCH ×2 (08:39→21:00)
[2019-09-10] MEDS: ASCORBIC ACID 500 MG TABLET PO SCH ×2 (08:40→21:00)
[2019-09-10] MEDS: DIAZEPAM 5 MG TABLET GT SCH ×2 (08:40→21:00)
[2019-09-10] MEDS: AMIODARONE HCL 200 MG TABLET GT SCH (08:40)
[2019-09-10] MEDS: PHENOBARBITAL 30 MG/7.5 ML LIQUID UDC GT SCH ×2 (08:40→21:00)
[2019-09-10] MEDS: COD LIVER OIL/ZINC OXIDE OINT 113 GM TUBE TP SCH ×2 (08:40→21:00)
[2019-09-10 10:44] VITALS: BP 130/72
[2019-09-10] MEDS: HYDROGEN PEROXIDE 3% 118 ML BOTTLE TOP SCH ×2 (11:11→21:11)
[2019-09-10] MEDS: MULTIVIT, IRON, MIN NO. 8, FA TABLET GT SCH (21:00)
[2019-09-10] MEDS: MAGNESIUM OXIDE 400 MG TABLET GT SCH (21:00)
[2019-09-10 22:23] VITALS: BP 116/74
[2019-09-11] MEDS: OMEPRAZOLE 40MG GT SCH (05:35)
[2019-09-11] MEDS: POLYVINYL ALCOHOL OPHT DROPS 15 ML BOTTLE EACHEYE SCH ×2 (05:35→17:20)
[2019-09-11] MEDS: ASPIRIN 81 MG TAB.CHEW GT SCH (08:46)
[2019-09-11] MEDS: levETIRAcetam 500 MG/5 ML LIQUID UDC GT SCH ×2 (08:46→21:22)
[2019-09-11] MEDS: PHENOBARBITAL 30 MG/7.5 ML LIQUID UDC GT SCH ×2 (08:47→21:23)
[2019-09-11] MEDS: ASCORBIC ACID 500 MG TABLET PO SCH ×2 (08:47→21:23)
[2019-09-11] MEDS: AMIODARONE HCL 200 MG TABLET GT SCH (08:47)
[2019-09-11] MEDS: METOPROLOL TARTRATE 50 MG TABLET GT SCH ×2 (08:47→21:23)
[2019-09-11] MEDS: DIAZEPAM 5 MG TABLET GT SCH ×2 (08:47→21:23)
[2019-09-11] MEDS: COD LIVER OIL/ZINC OXIDE OINT 113 GM TUBE TP SCH ×2 (08:47→21:24)
[2019-09-11 10:46] VITALS: BP 123/61
[2019-09-11] MEDS: HYDROGEN PEROXIDE 3% 118 ML BOTTLE TOP SCH ×2 (10:50→21:00)
[2019-09-11] MEDS: MAGNESIUM OXIDE 400 MG TABLET GT SCH (21:23)
[2019-09-11] MEDS: MULTIVIT, IRON, MIN NO. 8, FA TABLET GT SCH (21:23)
[2019-09-11] MEDS: ACETAMINOPHEN 650 MG/20 ML UDC- SA PATIENTS-PAIN ONLY GT PRN (22:00)
[2019-09-11 23:26] VITALS: BP 103/67
--- NOTE | 2019-09-12 00:51 | NUR ---
PT ON CONT HT 50 VENT WITH SHILEY # [address] AND SECURED, WITH SAME CURRENT VENT SETTINGS, PT DOES ASSIST AT TIMES, WITH GOOD COUGH EFFORT, SUCTION MOUTH WITH MINOO GARCIA WELL, NO VENT CHANGES MADE, CHECK CUFF, CHANGE HME, AND CHANGE VENT CIRCUIT, PT STABLE, TRACH CARE DOWN, SUCTIONED LIGHT PALE YELL TINGE SECRETIONS, NO VENT CHANGES MADE, PT STABLE.Helena MONTGOMERY RCP Addendum: 09/12/19 at 0052 by KSENIA MONTGOMERY RT Amended: Links added.
[2019-09-12] MEDS: POLYVINYL ALCOHOL OPHT DROPS 15 ML BOTTLE EACHEYE SCH ×2 (05:23→17:09)
[2019-09-12] MEDS: OMEPRAZOLE 40MG GT SCH (05:23)
[2019-09-12 08:06] VITALS: BP 107/67
[2019-09-12] MEDS: AMIODARONE HCL 200 MG TABLET GT SCH (08:06)
[2019-09-12] MEDS: ASPIRIN 81 MG TAB.CHEW GT SCH (08:06)
[2019-09-12] MEDS: METOPROLOL TARTRATE 50 MG TABLET GT SCH ×2 (08:07→21:38)
[2019-09-12] MEDS: DIAZEPAM 5 MG TABLET GT SCH ×2 (08:07→21:38)
[2019-09-12] MEDS: COD LIVER OIL/ZINC OXIDE OINT 113 GM TUBE TP SCH ×2 (08:07→21:38)
[2019-09-12] MEDS: levETIRAcetam 500 MG/5 ML LIQUID UDC GT SCH ×2 (08:07→21:37)
[2019-09-12] MEDS: ASCORBIC ACID 500 MG TABLET PO SCH ×2 (08:07→21:38)
[2019-09-12] MEDS: PHENOBARBITAL 30 MG/7.5 ML LIQUID UDC GT SCH ×2 (08:07→21:38)
[2019-09-12] MEDS: HYDROGEN PEROXIDE 3% 118 ML BOTTLE TOP SCH ×2 (09:20→21:00)
[2019-09-12] MEDS: VITAL AF 1.2 1,000 ML LIQUID GT PRN (10:37)
[2019-09-12] MEDS: MULTIVIT, IRON, MIN NO. 8, FA TABLET GT SCH (21:38)
[2019-09-12] MEDS: MAGNESIUM OXIDE 400 MG TABLET GT SCH (21:38)
[2019-09-12 23:00] VITALS: BP 116/68
[2019-09-13] MEDS: POLYVINYL ALCOHOL OPHT DROPS 15 ML BOTTLE EACHEYE SCH ×2 (05:00→18:00)
[2019-09-13] MEDS: OMEPRAZOLE 40MG GT SCH (05:00)
[2019-09-13] MEDS: VITAL AF 1.2 1,000 ML LIQUID GT PRN ×2 (05:01→23:07)
[2019-09-13] MEDS: ASPIRIN 81 MG TAB.CHEW GT SCH (08:04)
[2019-09-13] MEDS: levETIRAcetam 500 MG/5 ML LIQUID UDC GT SCH ×2 (08:04→20:19)
[2019-09-13] MEDS: AMIODARONE HCL 200 MG TABLET GT SCH (08:04)
[2019-09-13 08:05] VITALS: BP 109/61
[2019-09-13] MEDS: DIAZEPAM 5 MG TABLET GT SCH ×2 (08:05→20:20)
[2019-09-13] MEDS: METOPROLOL TARTRATE 50 MG TABLET GT SCH ×2 (08:05→20:20)
[2019-09-13] MEDS: ASCORBIC ACID 500 MG TABLET PO SCH ×2 (08:05→20:20)
[2019-09-13] MEDS: PHENOBARBITAL 30 MG/7.5 ML LIQUID UDC GT SCH ×2 (08:05→20:20)
[2019-09-13] MEDS: COD LIVER OIL/ZINC OXIDE OINT 113 GM TUBE TP SCH ×2 (09:00→20:20)
[2019-09-13] MEDS: HYDROGEN PEROXIDE 3% 118 ML BOTTLE TOP SCH ×2 (09:20→20:20)
--- NOTE | 2019-09-13 12:29 | NUR ---
Kristine MARTINEZ LIFELINE REPRESENTATIVES aware pt has no loose bm for 3 days ,and pt is asymptomatic ,with new orders noted to DC isolation ,for c diff ,esbl in urine and blood.Orders carried out.
[2019-09-13] MEDS: MULTIVIT, IRON, MIN NO. 8, FA TABLET GT SCH (20:20)
[2019-09-13] MEDS: MAGNESIUM OXIDE 400 MG TABLET GT SCH (20:20)
[2019-09-13 23:00] VITALS: BP 123/81
[2019-09-14] MEDS: POLYVINYL ALCOHOL OPHT DROPS 15 ML BOTTLE EACHEYE SCH ×2 (05:09→18:07)
[2019-09-14] MEDS: OMEPRAZOLE 40MG GT SCH (05:09)
[2019-09-14] MEDS: ASPIRIN 81 MG TAB.CHEW GT SCH (09:09)
[2019-09-14] MEDS: AMIODARONE HCL 200 MG TABLET GT SCH (09:10)
[2019-09-14] MEDS: levETIRAcetam 500 MG/5 ML LIQUID UDC GT SCH ×2 (09:11→21:11)
[2019-09-14] MEDS: METOPROLOL TARTRATE 50 MG TABLET GT SCH ×2 (09:12→21:12)
[2019-09-14] MEDS: PHENOBARBITAL 30 MG/7.5 ML LIQUID UDC GT SCH ×2 (09:12→21:42)
[2019-09-14] MEDS: DIAZEPAM 5 MG TABLET GT SCH ×2 (09:12→21:42)
[2019-09-14] MEDS: COD LIVER OIL/ZINC OXIDE OINT 113 GM TUBE TP SCH ×2 (09:12→21:14)
[2019-09-14] MEDS: ASCORBIC ACID 500 MG TABLET PO SCH ×2 (09:12→21:15)
[2019-09-14] MEDS: HYDROGEN PEROXIDE 3% 118 ML BOTTLE TOP SCH ×2 (09:32→21:11)
[2019-09-14 19:53] VITALS: BP 122/75
--- NOTE | 2019-09-14 19:54 | NUR ---
Pt received on HT-50 ventilator with the following settings of AC-14, Vt-500, PEEP+5, FIO2-30%, trached with Shiley#8 DCT trach, which is in the place and secure. No s/s of respiratory distress noted. Airway care done, pt responded to physical stimuli. HME changed. Resus. bag and back up trach at bedside. Vent and alarms checked and reset.
--- NOTE | 2019-09-14 20:00 | NUR ---
VSS 99.2-69-14 BP 122/75. SATS 100%. COLOR GOOD. SHILEY #8 TRACHED TO VENTINLATOR AC=14, EK=753, FIO2=30% PEEP=5. SKIN WARM, DRY, ANDINTACT. INCONTINENT OF BOWEL AND INDWELLING WARE CATH FOR QUANTITY SUFFICIENT OF A CLEAR, YELLOW URINE. ABDOMEN SOFTLY DISTENDED WITH +BOWEL SOUNDS. GTUBE INTACT AND PATENT FOR VITAL 1.2 @ 55 CC/HOUR. RESIDUAL=0--FEEDING CONTINUES. NO SIGNS OF ACUTE CARDIAC/RESPIRATORY DISTRESS OR SUPPRESSION.
[2019-09-14] MEDS: MULTIVIT, IRON, MIN NO. 8, FA TABLET GT SCH (21:14)
[2019-09-14] MEDS: MAGNESIUM OXIDE 400 MG TABLET GT SCH (21:14)
[2019-09-15] MEDS: OMEPRAZOLE 40MG GT SCH (06:54)
[2019-09-15] MEDS: POLYVINYL ALCOHOL OPHT DROPS 15 ML BOTTLE EACHEYE SCH ×2 (06:54→17:17)
[2019-09-15] MEDS: ASPIRIN 81 MG TAB.CHEW GT SCH (08:36)
[2019-09-15] MEDS: METOPROLOL TARTRATE 50 MG TABLET GT SCH ×2 (08:38→21:34)
[2019-09-15] MEDS: levETIRAcetam 500 MG/5 ML LIQUID UDC GT SCH ×2 (08:38→21:32)
[2019-09-15] MEDS: COD LIVER OIL/ZINC OXIDE OINT 113 GM TUBE TP SCH ×2 (08:38→21:36)
[2019-09-15] MEDS: DIAZEPAM 5 MG TABLET GT SCH ×2 (08:38→21:35)
[2019-09-15] MEDS: ASCORBIC ACID 500 MG TABLET PO SCH ×2 (08:38→21:35)
[2019-09-15] MEDS: AMIODARONE HCL 200 MG TABLET GT SCH (08:38)
[2019-09-15] MEDS: PHENOBARBITAL 30 MG/7.5 ML LIQUID UDC GT SCH ×2 (08:38→21:35)
[2019-09-15] MEDS: HYDROGEN PEROXIDE 3% 118 ML BOTTLE TOP SCH ×2 (09:00→21:31)
[2019-09-15 09:23] VITALS: BP 111/67
--- NOTE | 2019-09-15 14:50 | NUR ---
INTERDISCIPLINARY PLAN OF CARE CONFERENCE was held today. Patient family is minimally involved in patient's care and they are unable to attend the meeting. Dr. Lora and the Interdisciplinary Team reviewed the current plan of care in detail. RN reported on patient's medical condition. See RN IDT conference notes. No major changes in condition were reported. See also all other disciplines IDT notes and physician's progress notes for additional details.
--- NOTE | 2019-09-15 15:51 | NUR ---
Pharmacy Update from Today's 09/15/19 IDT Meeting Note: Pt was transferred to CCU 07/23-07/31 for afib and severe sepsis (hypotension resistant to IV fluids, SRINIVAS, fever, previous ongoing UTI tx). Pt was stabilized with pressors, amiodarone and also treated per ID with amikacin and vanco po for c diff. Now transferred back to for ongoing treatment to finish course of abxs. VS: Temp 99.2 BP 122/75 HR 69 LABS: (from 08/26/19, no new labs) Wbc 6.1 H/H 8.5/24.8 Plt 210 Na 138 K 4.1 Cl 101 CO2 30 BUN/Scr 26/0.5 BS 95 Ca 9.2 phos 4.1 Mg 2.0 MEDICATION USE REVIEWED: > Pt not on any anti-psych medications > Pt continues on Keppra 2000mg q12hr since 12/02/18; CrCl >100 ml/min, renal function ok for current dose. No reported seizures > Pt nn Phenobarbital 129.6mg q12hr since 07/23/19. Last level 09/08/19 was 33 (15-39), within therapeutic range > Pt restarted Valium 5mg q12hr since 08/05 for muscle twitching/residual seizure activity per neurology. PRN also added > Pt started on Magnesium Oxide 400mg daily since 08/03. Last Mg 2.0 > Pt on Omeprazole 40mg daily since 08/02/19, ok dose per renal function PRN MED USAGE: (Aug) Tylenol PRN pain/temp used x0 Zofran PRN used x0 Valium PRN musc twitching used x0 NEW ORDERS NOTED: > Rx rec for repeat phenobarbital level as last dose change was after most recent level on file and likely at steady state. MD in agreement and ordered. Level resulted, please see above, within therapeutic range. Patient was reviewed and discussed in depth per IDT team with no medication issues at this time. No further recommendations at this time per Rx, remains stable on current regimen. Will continue follow
[2019-09-15 20:03] VITALS: BP 118/70
[2019-09-15] MEDS: MAGNESIUM OXIDE 400 MG TABLET GT SCH (21:34)
[2019-09-15] MEDS: MULTIVIT, IRON, MIN NO. 8, FA TABLET GT SCH (21:35)
[2019-09-16] MEDS: VITAL AF 1.2 1,000 ML LIQUID GT PRN (00:39)
[2019-09-16] MEDS: OMEPRAZOLE 40MG GT SCH (05:41)
[2019-09-16] MEDS: POLYVINYL ALCOHOL OPHT DROPS 15 ML BOTTLE EACHEYE SCH ×2 (05:41→17:14)
[2019-09-16 07:06] LABS: BASOPHILS % (AUTO) 0.6 % (0.0-2.0); EOSINOPHILS # (AUTO) 0.2 K/uL (0.0-0.7); EOSINOPHILS % (AUTO) 2.7 % (0.0-7.0); HEMATOCRIT 25.5 % (31.2-41.9); HEMOGLOBIN 8.8 g/dL (10.9-14.3); LYMPHOCYTES % (AUTO) 15.8 % (20.5-51.5); MEAN CORPUSCULAR HEMOGLOBIN 30.4 uug (24.7-32.8); MEAN CORPUSCULAR HGB CONC 35 g/dL (32.3-35.6); MEAN CORPUSCULAR VOLUME 87.8 fL (75.5-95.3); MONOCYTES # (AUTO) 0.4 K/uL (2.0-10.0); MONOCYTES % (AUTO) 6.7 % (0.0-11.0); NEUTROPHILS # (AUTO) 4.6 K/uL (1.8-8.9); NEUTROPHILS % (AUTO) 74.2 % (38.5-71.5); PLATELET COUNT (AUTO) 177 K/uL (179-408); RED BLOOD CELL COUNT(AUTO) 2.91 MIL/uL (3.63-4.92); WHITE BLOOD COUNT (AUTO) 6.2 K/uL (3.8-11.8)
[2019-09-16 07:18] LABS: CREATININE 0.5 mg/dL (0.6-1.3); POTASSIUM 4.3 mmol/L (3.5-5.1)
[2019-09-16] MEDS: HYDROGEN PEROXIDE 3% 118 ML BOTTLE TOP SCH ×2 (07:50→21:28)
[2019-09-16 08:00] VITALS: BP 131/81
[2019-09-16] MEDS: AMIODARONE HCL 200 MG TABLET GT SCH (08:57)
[2019-09-16] MEDS: ASPIRIN 81 MG TAB.CHEW GT SCH (08:57)
[2019-09-16] MEDS: levETIRAcetam 500 MG/5 ML LIQUID UDC GT SCH ×2 (08:57→21:30)
[2019-09-16] MEDS: METOPROLOL TARTRATE 50 MG TABLET GT SCH ×2 (08:58→21:31)
[2019-09-16] MEDS: DIAZEPAM 5 MG TABLET GT SCH ×2 (08:58→21:33)
[2019-09-16] MEDS: PHENOBARBITAL 30 MG/7.5 ML LIQUID UDC GT SCH ×2 (08:58→21:33)
[2019-09-16] MEDS: ASCORBIC ACID 500 MG TABLET PO SCH ×2 (08:58→21:33)
[2019-09-16] MEDS: COD LIVER OIL/ZINC OXIDE OINT 113 GM TUBE TP SCH ×2 (08:58→21:33)
[2019-09-16 20:08] VITALS: BP 129/69
[2019-09-16] MEDS: MAGNESIUM OXIDE 400 MG TABLET GT SCH (21:31)
[2019-09-16] MEDS: MULTIVIT, IRON, MIN NO. 8, FA TABLET GT SCH (21:33)
[2019-09-17] MEDS: VITAL AF 1.2 1,000 ML LIQUID GT PRN (00:16)
[2019-09-17] MEDS: OMEPRAZOLE 40MG GT SCH (06:13)
[2019-09-17] MEDS: POLYVINYL ALCOHOL OPHT DROPS 15 ML BOTTLE EACHEYE SCH ×2 (06:13→17:33)
[2019-09-17 08:00] VITALS: BP 110/67
[2019-09-17] MEDS: ASPIRIN 81 MG TAB.CHEW GT SCH (08:08)
[2019-09-17] MEDS: PHENOBARBITAL 30 MG/7.5 ML LIQUID UDC GT SCH ×2 (08:09→21:00)
[2019-09-17] MEDS: AMIODARONE HCL 200 MG TABLET GT SCH (08:09)
[2019-09-17] MEDS: DIAZEPAM 5 MG TABLET GT SCH ×2 (08:09→21:00)
[2019-09-17] MEDS: levETIRAcetam 500 MG/5 ML LIQUID UDC GT SCH ×2 (08:09→21:00)
[2019-09-17] MEDS: ASCORBIC ACID 500 MG TABLET PO SCH ×2 (08:09→21:00)
[2019-09-17] MEDS: COD LIVER OIL/ZINC OXIDE OINT 113 GM TUBE TP SCH ×2 (08:09→21:00)
[2019-09-17] MEDS: METOPROLOL TARTRATE 50 MG TABLET GT SCH ×2 (08:09→21:00)
--- NOTE | 2019-09-17 08:29 | NUR ---
URINE SPECIMEN COLLECTED AND SENT TO LAB. AFTER F/C CHANGED.
[2019-09-17 08:51] LABS: *BILIRUBIN,URIN NEGATIVE (NEGATIVE); *CLARITY,URINE SLIGHTLY CLOUDY (CLEAR); *COLOR,URINE YELLOW (YELLOW); *KETONES,URINE NEGATIVE (NEGATIVE); *UROBILINOGEN,URINE 0.2 E.U./dl (NORMAL); LEUKOCYTE ESTERASE ,URINE 2+ (NEGATIVE); NITRITE, URINE POSITIVE (NEGATIVE); PH,URINE 7.5 (5.0-8.0); UGLUCOSE NEGATIVE (NEGATIVE)
[2019-09-17 08:56] LABS: *BLOOD, URINE TRACE (NEGATIVE)
[2019-09-17] MEDS: HYDROGEN PEROXIDE 3% 118 ML BOTTLE TOP SCH ×2 (09:00→21:00)
[2019-09-17 09:30] LABS: BACTERIA,URINE MODERATE /HPF (NONE SEEN); RBC,URINE 0-3 /HPF (0-3); SQUAMOUS EPITHELIAL CELL,UR FEW /HPF (NONE SEEN)
--- NOTE | 2019-09-17 10:04 | NUR ---
DR. MILTON WAS CALLED TO F/U UA RESULTS.
--- NOTE | 2019-09-17 13:35 | NUR ---
DR. MILTON WAS CALLED AND MESSAGE LEFT TO F/U UA RESULTS.
--- NOTE | 2019-09-17 13:50 | NUR ---
NEW ORDERS CARRIED OUT FROM [facility] ,PER IV PHARMACIST MEKA NAZARIO START ROCEPHIN FROM IV E KIT..URINE SPECIMEN SENT FOR URINE C&S.
[2019-09-17] MEDS: CEFTRIAXONE 1 G in IV DEXTROSE 5% 50 ML IV SCH (16:51)
[2019-09-17 20:32] VITALS: BP 138/66
[2019-09-17] MEDS: MAGNESIUM OXIDE 400 MG TABLET GT SCH (21:00)
[2019-09-17] MEDS: MULTIVIT, IRON, MIN NO. 8, FA TABLET GT SCH (21:00)
[2019-09-18] MEDS: VITAL AF 1.2 1,000 ML LIQUID GT PRN ×2 (00:58→21:55)
[2019-09-18] MEDS: OMEPRAZOLE 40MG GT SCH (06:06)
[2019-09-18] MEDS: POLYVINYL ALCOHOL OPHT DROPS 15 ML BOTTLE EACHEYE SCH ×2 (06:06→17:30)
--- NOTE | 2019-09-18 06:13 | NUR ---
continue on rocephin 1 gm iv for uti, no adverse reaction noted, afebrile, no respiratory distress noted.
[2019-09-18] MEDS: DIAZEPAM 5 MG TABLET GT SCH ×2 (08:01→20:34)
[2019-09-18] MEDS: ASPIRIN 81 MG TAB.CHEW GT SCH (08:01)
[2019-09-18] MEDS: levETIRAcetam 500 MG/5 ML LIQUID UDC GT SCH ×2 (08:01→20:34)
[2019-09-18] MEDS: METOPROLOL TARTRATE 50 MG TABLET GT SCH ×2 (08:01→20:34)
[2019-09-18] MEDS: COD LIVER OIL/ZINC OXIDE OINT 113 GM TUBE TP SCH ×2 (08:01→20:34)
[2019-09-18] MEDS: ASCORBIC ACID 500 MG TABLET PO SCH ×2 (08:01→20:34)
[2019-09-18] MEDS: PHENOBARBITAL 30 MG/7.5 ML LIQUID UDC GT SCH ×2 (08:01→20:34)
[2019-09-18] MEDS: AMIODARONE HCL 200 MG TABLET GT SCH (08:01)
[2019-09-18] MEDS: HYDROGEN PEROXIDE 3% 118 ML BOTTLE TOP SCH ×2 (09:30→21:56)
[2019-09-18] MEDS: CEFTRIAXONE 1 G in IV DEXTROSE 5% 50 ML IV SCH (16:55)
[2019-09-18] MEDS: MAGNESIUM OXIDE 400 MG TABLET GT SCH (20:34)
[2019-09-18] MEDS: MULTIVIT, IRON, MIN NO. 8, FA TABLET GT SCH (20:34)
[2019-09-18 21:00] VITALS: BP 133/65
--- NOTE | 2019-09-18 21:57 | NUR ---
TRACHED RESIDENT WAS RECEIVED ON ORDERED SETTINGS OF MECHANICAL VENTILATION. NO SIGNS OF RESPIRATORY DISTRESS NOTED. SHE IS TRACHED WITH A SHILEY 8 DCT. AIRWAY IS PATENT AND SECURED @ MIDLINE. SENIOR INTERIOR DESIGNER USED FOR CUFF ASSESSMENT/INFLATION. SUCTIONED SMALL AMOUNTS OF THIN PALE-YELLOW SECRETIONS. ALARMS ARE ON AND AUDIBLE. WILL CONTINUE TO MONITOR.
[2019-09-19] MEDS: POLYVINYL ALCOHOL OPHT DROPS 15 ML BOTTLE EACHEYE SCH ×2 (05:19→18:20)
[2019-09-19] MEDS: OMEPRAZOLE 40MG GT SCH (05:19)
[2019-09-19 08:30] VITALS: BP 108/78
[2019-09-19] MEDS: HYDROGEN PEROXIDE 3% 118 ML BOTTLE TOP SCH ×2 (09:00→21:00)
[2019-09-19] MEDS: levETIRAcetam 500 MG/5 ML LIQUID UDC GT SCH ×2 (09:14→20:57)
[2019-09-19] MEDS: PHENOBARBITAL 30 MG/7.5 ML LIQUID UDC GT SCH ×2 (09:14→20:57)
[2019-09-19] MEDS: METOPROLOL TARTRATE 50 MG TABLET GT SCH ×2 (09:14→20:57)
[2019-09-19] MEDS: ASCORBIC ACID 500 MG TABLET PO SCH ×2 (09:14→20:57)
[2019-09-19] MEDS: ASPIRIN 81 MG TAB.CHEW GT SCH (09:14)
[2019-09-19] MEDS: DIAZEPAM 5 MG TABLET GT SCH ×2 (09:14→20:57)
[2019-09-19] MEDS: AMIODARONE HCL 200 MG TABLET GT SCH (09:14)
[2019-09-19] MEDS: COD LIVER OIL/ZINC OXIDE OINT 113 GM TUBE TP SCH ×2 (09:15→20:58)
[2019-09-19] MEDS: CEFTRIAXONE 1 G in IV DEXTROSE 5% 50 ML IV SCH (16:39)
[2019-09-19 20:05] VITALS: BP 128/54
[2019-09-19] MEDS: MAGNESIUM OXIDE 400 MG TABLET GT SCH (20:57)
[2019-09-19] MEDS: MULTIVIT, IRON, MIN NO. 8, FA TABLET GT SCH (20:57)
[2019-09-20] MEDS: POLYVINYL ALCOHOL OPHT DROPS 15 ML BOTTLE EACHEYE SCH ×2 (05:15→17:09)
[2019-09-20] MEDS: OMEPRAZOLE 40MG GT SCH (05:15)
[2019-09-20 08:00] VITALS: BP 132/74
[2019-09-20] MEDS: HYDROGEN PEROXIDE 3% 118 ML BOTTLE TOP SCH ×2 (08:05→20:51)
[2019-09-20] MEDS: ASCORBIC ACID 500 MG TABLET PO SCH ×2 (09:03→20:13)
[2019-09-20] MEDS: METOPROLOL TARTRATE 50 MG TABLET GT SCH ×2 (09:03→20:13)
[2019-09-20] MEDS: COD LIVER OIL/ZINC OXIDE OINT 113 GM TUBE TP SCH ×2 (09:03→20:13)
[2019-09-20] MEDS: ASPIRIN 81 MG TAB.CHEW GT SCH (09:03)
[2019-09-20] MEDS: DIAZEPAM 5 MG TABLET GT SCH ×2 (09:03→20:13)
[2019-09-20] MEDS: PHENOBARBITAL 30 MG/7.5 ML LIQUID UDC GT SCH ×2 (09:03→20:13)
[2019-09-20] MEDS: levETIRAcetam 500 MG/5 ML LIQUID UDC GT SCH ×2 (09:03→20:13)
[2019-09-20] MEDS: AMIODARONE HCL 200 MG TABLET GT SCH (09:03)
[2019-09-20] MEDS: CEFTRIAXONE 1 G in IV DEXTROSE 5% 50 ML IV SCH (16:49)
[2019-09-20 19:44] VITALS: BP 126/78
[2019-09-20] MEDS: MULTIVIT, IRON, MIN NO. 8, FA TABLET GT SCH (20:13)
[2019-09-20] MEDS: MAGNESIUM OXIDE 400 MG TABLET GT SCH (20:13)
[2019-09-21] MEDS: OMEPRAZOLE 40MG GT SCH (05:27)
[2019-09-21] MEDS: POLYVINYL ALCOHOL OPHT DROPS 15 ML BOTTLE EACHEYE SCH ×2 (05:27→18:16)
[2019-09-21 08:00] VITALS: BP 116/67
[2019-09-21] MEDS: HYDROGEN PEROXIDE 3% 118 ML BOTTLE TOP SCH ×2 (09:00→20:34)
[2019-09-21] MEDS: ASPIRIN 81 MG TAB.CHEW GT SCH (09:08)
[2019-09-21] MEDS: AMIODARONE HCL 200 MG TABLET GT SCH (09:09)
[2019-09-21] MEDS: levETIRAcetam 500 MG/5 ML LIQUID UDC GT SCH ×2 (09:09→21:00)
[2019-09-21] MEDS: PHENOBARBITAL 30 MG/7.5 ML LIQUID UDC GT SCH ×2 (09:10→21:00)
[2019-09-21] MEDS: METOPROLOL TARTRATE 50 MG TABLET GT SCH ×2 (09:10→21:00)
[2019-09-21] MEDS: DIAZEPAM 5 MG TABLET GT SCH ×2 (09:10→21:00)
[2019-09-21] MEDS: ASCORBIC ACID 500 MG TABLET PO SCH ×2 (09:13→21:00)
[2019-09-21] MEDS: COD LIVER OIL/ZINC OXIDE OINT 113 GM TUBE TP SCH ×2 (09:13→21:00)
--- NOTE | 2019-09-21 12:35 | NUR ---
SEEN BY FLASH Mclaughlin AND WITH NNO.
[2019-09-21] MEDS: VITAL AF 1.2 1,000 ML LIQUID GT PRN (13:51)
--- NOTE | 2019-09-21 14:03 | NUR ---
NEW ORDER CARRIED OUT FOR OT EVAL FROM FLASH BARROSO RECOMMENDED BY "V" FROM OT DEPARTMENT.
[2019-09-21] MEDS: CEFTRIAXONE 1 G in IV DEXTROSE 5% 50 ML IV SCH (15:58)
[2019-09-21 20:04] VITALS: BP 139/83
[2019-09-21] MEDS: MAGNESIUM OXIDE 400 MG TABLET GT SCH (21:00)
[2019-09-21] MEDS: MULTIVIT, IRON, MIN NO. 8, FA TABLET GT SCH (21:00)
[2019-09-22] MEDS: POLYVINYL ALCOHOL OPHT DROPS 15 ML BOTTLE EACHEYE SCH ×2 (06:38→17:44)
[2019-09-22] MEDS: OMEPRAZOLE 40MG GT SCH (06:38)
[2019-09-22 08:00] VITALS: BP 127/74
[2019-09-22] MEDS: HYDROGEN PEROXIDE 3% 118 ML BOTTLE TOP SCH ×2 (09:00→21:00)
[2019-09-22] MEDS: PHENOBARBITAL 30 MG/7.5 ML LIQUID UDC GT SCH ×2 (09:06→20:16)
[2019-09-22] MEDS: DIAZEPAM 5 MG TABLET GT SCH ×2 (09:06→20:16)
[2019-09-22] MEDS: ASPIRIN 81 MG TAB.CHEW GT SCH (09:11)
[2019-09-22] MEDS: levETIRAcetam 500 MG/5 ML LIQUID UDC GT SCH ×2 (09:12→20:16)
[2019-09-22] MEDS: AMIODARONE HCL 200 MG TABLET GT SCH (09:12)
[2019-09-22] MEDS: ASCORBIC ACID 500 MG TABLET PO SCH ×2 (09:13→20:16)
[2019-09-22] MEDS: METOPROLOL TARTRATE 50 MG TABLET GT SCH ×2 (09:13→20:17)
[2019-09-22] MEDS: COD LIVER OIL/ZINC OXIDE OINT 113 GM TUBE TP SCH ×2 (09:13→20:16)
[2019-09-22] MEDS: VITAL AF 1.2 1,000 ML LIQUID GT PRN (11:44)
[2019-09-22 19:40] VITALS: BP 152/84
[2019-09-22] MEDS: MULTIVIT, IRON, MIN NO. 8, FA TABLET GT SCH (20:16)
[2019-09-22] MEDS: MAGNESIUM OXIDE 400 MG TABLET GT SCH (20:16)
[2019-09-23] MEDS: VITAL AF 1.2 1,000 ML LIQUID GT PRN (05:32)
[2019-09-23] MEDS: POLYVINYL ALCOHOL OPHT DROPS 15 ML BOTTLE EACHEYE SCH ×2 (05:32→17:49)
[2019-09-23] MEDS: OMEPRAZOLE 40MG GT SCH (05:32)
[2019-09-23] MEDS: AMIODARONE HCL 200 MG TABLET GT SCH (08:55)
[2019-09-23] MEDS: METOPROLOL TARTRATE 50 MG TABLET GT SCH ×2 (08:55→21:19)
[2019-09-23] MEDS: ASPIRIN 81 MG TAB.CHEW GT SCH (08:55)
[2019-09-23] MEDS: levETIRAcetam 500 MG/5 ML LIQUID UDC GT SCH ×2 (08:55→20:07)
[2019-09-23] MEDS: COD LIVER OIL/ZINC OXIDE OINT 113 GM TUBE TP SCH ×2 (08:56→20:07)
[2019-09-23] MEDS: ASCORBIC ACID 500 MG TABLET PO SCH ×2 (08:56→20:07)
[2019-09-23] MEDS: DIAZEPAM 5 MG TABLET GT SCH ×2 (09:00→20:07)
[2019-09-23] MEDS: HYDROGEN PEROXIDE 3% 118 ML BOTTLE TOP SCH ×2 (09:00→21:35)
[2019-09-23] MEDS: PHENOBARBITAL 30 MG/7.5 ML LIQUID UDC GT SCH ×2 (09:00→20:07)
[2019-09-23 11:48] VITALS: BP 102/75
[2019-09-23 20:00] VITALS: BP 134/94
[2019-09-23] MEDS: MULTIVIT, IRON, MIN NO. 8, FA TABLET GT SCH (20:07)
[2019-09-23] MEDS: MAGNESIUM OXIDE 400 MG TABLET GT SCH (20:07)
[2019-09-24] MEDS: POLYVINYL ALCOHOL OPHT DROPS 15 ML BOTTLE EACHEYE SCH ×2 (05:26→18:01)
[2019-09-24] MEDS: OMEPRAZOLE 40MG GT SCH (05:26)
[2019-09-24 08:00] VITALS: BP 150/84
[2019-09-24] MEDS: ASPIRIN 81 MG TAB.CHEW GT SCH (08:19)
[2019-09-24] MEDS: AMIODARONE HCL 200 MG TABLET GT SCH (08:21)
[2019-09-24] MEDS: levETIRAcetam 500 MG/5 ML LIQUID UDC GT SCH ×2 (08:22→21:34)
[2019-09-24] MEDS: DIAZEPAM 5 MG TABLET GT SCH ×2 (08:23→21:35)
[2019-09-24] MEDS: ASCORBIC ACID 500 MG TABLET PO SCH ×2 (08:23→21:35)
[2019-09-24] MEDS: METOPROLOL TARTRATE 50 MG TABLET GT SCH ×2 (08:23→21:35)
[2019-09-24] MEDS: PHENOBARBITAL 30 MG/7.5 ML LIQUID UDC GT SCH ×2 (08:23→21:35)
[2019-09-24] MEDS: COD LIVER OIL/ZINC OXIDE OINT 113 GM TUBE TP SCH ×2 (08:24→21:35)
[2019-09-24] MEDS: HYDROGEN PEROXIDE 3% 118 ML BOTTLE TOP SCH ×2 (10:10→21:44)
[2019-09-24 20:05] VITALS: BP 147/79
--- NOTE | 2019-09-24 20:15 | NUR ---
Received pt on HT-50 ventilator with the following settings of AC-14, Vt-500, PEEP+5, FIO2-30%, trached with Shiley#8 DCT trach, which is in the place and secure. No respiratory distress noted. Airway care done, pt responded to physical stimuli. HME changed. Resus. bag and back up trach at bedside. Vent and alarms checked and reset.
[2019-09-24] MEDS: MAGNESIUM OXIDE 400 MG TABLET GT SCH (21:35)
[2019-09-24] MEDS: MULTIVIT, IRON, MIN NO. 8, FA TABLET GT SCH (21:35)
[2019-09-25] MEDS: VITAL AF 1.2 1,000 ML LIQUID GT PRN (03:00)
[2019-09-25] MEDS: OMEPRAZOLE 40MG GT SCH (06:30)
[2019-09-25] MEDS: POLYVINYL ALCOHOL OPHT DROPS 15 ML BOTTLE EACHEYE SCH ×2 (06:30→17:09)
[2019-09-25 08:00] VITALS: BP 105/56
[2019-09-25] MEDS: ASPIRIN 81 MG TAB.CHEW GT SCH (08:45)
[2019-09-25] MEDS: ASCORBIC ACID 500 MG TABLET PO SCH ×2 (08:48→20:21)
[2019-09-25] MEDS: DIAZEPAM 5 MG TABLET GT SCH ×2 (08:48→20:21)
[2019-09-25] MEDS: COD LIVER OIL/ZINC OXIDE OINT 113 GM TUBE TP SCH ×2 (08:48→20:21)
[2019-09-25] MEDS: PHENOBARBITAL 30 MG/7.5 ML LIQUID UDC GT SCH ×2 (08:48→20:20)
[2019-09-25] MEDS: METOPROLOL TARTRATE 50 MG TABLET GT SCH ×2 (08:48→20:20)
[2019-09-25] MEDS: AMIODARONE HCL 200 MG TABLET GT SCH (08:48)
[2019-09-25] MEDS: levETIRAcetam 500 MG/5 ML LIQUID UDC GT SCH ×2 (08:48→20:20)
[2019-09-25] MEDS: HYDROGEN PEROXIDE 3% 118 ML BOTTLE TOP SCH ×2 (09:00→20:32)
[2019-09-25 19:57] VITALS: BP 134/76
[2019-09-25] MEDS: MAGNESIUM OXIDE 400 MG TABLET GT SCH (20:20)
[2019-09-25] MEDS: MULTIVIT, IRON, MIN NO. 8, FA TABLET GT SCH (20:20)
[2019-09-26] MEDS: POLYVINYL ALCOHOL OPHT DROPS 15 ML BOTTLE EACHEYE SCH ×2 (05:07→17:23)
[2019-09-26] MEDS: VITAL AF 1.2 1,000 ML LIQUID GT PRN (05:07)
[2019-09-26] MEDS: OMEPRAZOLE 40MG GT SCH (05:07)
[2019-09-26 08:00] VITALS: BP 120/67
[2019-09-26] MEDS: ASPIRIN 81 MG TAB.CHEW GT SCH (08:11)
[2019-09-26] MEDS: AMIODARONE HCL 200 MG TABLET GT SCH (08:11)
[2019-09-26] MEDS: levETIRAcetam 500 MG/5 ML LIQUID UDC GT SCH ×2 (08:12→21:04)
[2019-09-26] MEDS: PHENOBARBITAL 30 MG/7.5 ML LIQUID UDC GT SCH ×2 (08:13→21:04)
[2019-09-26] MEDS: METOPROLOL TARTRATE 50 MG TABLET GT SCH ×2 (08:13→21:04)
[2019-09-26] MEDS: ASCORBIC ACID 500 MG TABLET PO SCH ×2 (08:13→21:04)
[2019-09-26] MEDS: DIAZEPAM 5 MG TABLET GT SCH ×2 (08:13→21:04)
[2019-09-26] MEDS: COD LIVER OIL/ZINC OXIDE OINT 113 GM TUBE TP SCH ×2 (08:44→21:05)
[2019-09-26] MEDS: HYDROGEN PEROXIDE 3% 118 ML BOTTLE TOP SCH ×2 (09:00→21:38)
[2019-09-26 20:54] VITALS: BP 140/77
[2019-09-26] MEDS: MULTIVIT, IRON, MIN NO. 8, FA TABLET GT SCH (21:04)
[2019-09-26] MEDS: MAGNESIUM OXIDE 400 MG TABLET GT SCH (21:04)
[2019-09-27] MEDS: POLYVINYL ALCOHOL OPHT DROPS 15 ML BOTTLE EACHEYE SCH ×2 (05:12→17:21)
[2019-09-27] MEDS: OMEPRAZOLE 40MG GT SCH (05:12)
[2019-09-27] MEDS: VITAL AF 1.2 1,000 ML LIQUID GT PRN (05:12)
[2019-09-27 08:09] VITALS: BP 127/67
[2019-09-27] MEDS: AMIODARONE HCL 200 MG TABLET GT SCH (08:20)
[2019-09-27] MEDS: ASPIRIN 81 MG TAB.CHEW GT SCH (08:20)
[2019-09-27] MEDS: ASCORBIC ACID 500 MG TABLET PO SCH ×2 (08:23→20:54)
[2019-09-27] MEDS: COD LIVER OIL/ZINC OXIDE OINT 113 GM TUBE TP SCH ×2 (08:23→20:54)
[2019-09-27] MEDS: METOPROLOL TARTRATE 50 MG TABLET GT SCH ×2 (08:23→20:54)
[2019-09-27] MEDS: DIAZEPAM 5 MG TABLET GT SCH ×2 (08:23→20:54)
[2019-09-27] MEDS: PHENOBARBITAL 30 MG/7.5 ML LIQUID UDC GT SCH ×2 (08:23→20:54)
[2019-09-27] MEDS: levETIRAcetam 500 MG/5 ML LIQUID UDC GT SCH ×2 (08:23→20:53)
[2019-09-27] MEDS: HYDROGEN PEROXIDE 3% 118 ML BOTTLE TOP SCH ×2 (09:00→21:44)
[2019-09-27 20:23] VITALS: BP 125/68
[2019-09-27] MEDS: MAGNESIUM OXIDE 400 MG TABLET GT SCH (20:54)
[2019-09-27] MEDS: MULTIVIT, IRON, MIN NO. 8, FA TABLET GT SCH (20:54)
--- NOTE | 2019-09-28 00:02 | NUR ---
PT ON CONT HT 50 VENT WITH SHILEY # [address] AND SECURED, WITH SAME CURRENT VENT SETTINGS, PT DOES ASSIST AT TIMES, GOOD COUGH EFFORT, TRACH CARE DONE, CHECK CUFF, CHANGE HME, ALL VENT ALARMS GOOD, NO VENT CHANGES MADE, SUCTIONED LIGHT PALE YELL TINGE SECRETIONS, AND SUCTION MOUTH WITH RADHA TOLL WELL, PT STABLE.Helena BROUSSARDP Addendum: 09/28/19 at 0004 by KSENIA MONTGOMERY RT Amended: Links added.
[2019-09-28] MEDS: VITAL AF 1.2 1,000 ML LIQUID GT PRN (02:01)
[2019-09-28] MEDS: OMEPRAZOLE 40MG GT SCH (05:15)
[2019-09-28] MEDS: POLYVINYL ALCOHOL OPHT DROPS 15 ML BOTTLE EACHEYE SCH ×2 (05:15→17:15)
[2019-09-28 08:00] VITALS: BP 128/71
[2019-09-28] MEDS: HYDROGEN PEROXIDE 3% 118 ML BOTTLE TOP SCH ×2 (08:12→21:00)
[2019-09-28] MEDS: ASPIRIN 81 MG TAB.CHEW GT SCH (08:52)
[2019-09-28] MEDS: AMIODARONE HCL 200 MG TABLET GT SCH (08:52)
[2019-09-28] MEDS: levETIRAcetam 500 MG/5 ML LIQUID UDC GT SCH ×2 (08:52→21:02)
[2019-09-28] MEDS: ASCORBIC ACID 500 MG TABLET PO SCH ×2 (08:53→21:03)
[2019-09-28] MEDS: METOPROLOL TARTRATE 50 MG TABLET GT SCH ×2 (08:53→21:02)
[2019-09-28] MEDS: COD LIVER OIL/ZINC OXIDE OINT 113 GM TUBE TP SCH ×2 (08:55→21:03)
[2019-09-28] MEDS: PHENOBARBITAL 30 MG/7.5 ML LIQUID UDC GT SCH ×2 (09:01→21:03)
[2019-09-28] MEDS: DIAZEPAM 5 MG TABLET GT SCH ×2 (09:01→21:03)
[2019-09-28] MEDS: MULTIVIT, IRON, MIN NO. 8, FA TABLET GT SCH (21:03)
[2019-09-28] MEDS: MAGNESIUM OXIDE 400 MG TABLET GT SCH (21:03)
[2019-09-28 21:19] VITALS: BP 110/67
--- NOTE | 2019-09-28 22:20 | NUR ---
RESIDENT WAS RECEIVED ON ORDERED SETTINGS OF MECHANICAL VENTILATION. NO SIGNS OF RESPIRATORY DISTRESS NOTED. SHE IS TRACHED WITH A SHILEY 8 DCT. AIRWAY IS PATENT AND SECURED @ [facility]. CIPHER EXPERT USED FOR CUFF ASSESSMENT/INFLATION. SUCTIONED SMALL AMOUNTS OF THIN PALE-YELLOW SECRETIONS. ALARMS ARE ON AND AUDIBLE. WILL CONTINUE TO MONITOR.
[2019-09-29] MEDS: VITAL AF 1.2 1,000 ML LIQUID GT PRN (01:24)
[2019-09-29] MEDS: POLYVINYL ALCOHOL OPHT DROPS 15 ML BOTTLE EACHEYE SCH ×2 (05:48→17:38)
[2019-09-29] MEDS: OMEPRAZOLE 40MG GT SCH (05:48)
[2019-09-29 07:55] VITALS: BP 125/73
[2019-09-29] MEDS: METOPROLOL TARTRATE 50 MG TABLET GT SCH ×2 (08:10→20:13)
[2019-09-29] MEDS: AMIODARONE HCL 200 MG TABLET GT SCH (08:13)
[2019-09-29] MEDS: ASPIRIN 81 MG TAB.CHEW GT SCH (08:13)
[2019-09-29] MEDS: levETIRAcetam 500 MG/5 ML LIQUID UDC GT SCH ×2 (08:13→20:09)
[2019-09-29] MEDS: PHENOBARBITAL 30 MG/7.5 ML LIQUID UDC GT SCH ×2 (08:15→20:09)
[2019-09-29] MEDS: ASCORBIC ACID 500 MG TABLET PO SCH ×2 (08:15→20:09)
[2019-09-29] MEDS: COD LIVER OIL/ZINC OXIDE OINT 113 GM TUBE TP SCH ×2 (08:15→20:09)
[2019-09-29] MEDS: DIAZEPAM 5 MG TABLET GT SCH ×2 (08:15→20:09)
[2019-09-29] MEDS: HYDROGEN PEROXIDE 3% 118 ML BOTTLE TOP SCH ×2 (09:47→21:12)
--- NOTE | 2019-09-29 14:24 | NUR ---
Pharmacy Update from Today's 09/29/19 IDT Meeting Note: Pt was transferred to CCU 07/23-07/31 for afib and severe sepsis (hypotension resistant to IV fluids, SRINIVAS, fever, previous ongoing UTI tx). Pt was stabilized with pressors, amiodarone and also treated per ID with amikacin and vanco po for c diff. Now transferred back to for ongoing treatment to finish course of abxs. VS: Temp 97.5 BP 125/73 HR 64 LABS: (from 09/16/19) Wbc 6.2 H/H 8.8/25.5 Plt 177 Na 140 K 4.3 Cl 103 CO2 30 BUN/Scr 26/0.5 BS 101 Ca 9.9 phos 4.0 Mg 2.0 MEDICATION USE REVIEWED: > Pt not on any anti-psych medications > Pt continues on Keppra 2000mg q12hr since 12/02/18; CrCl >100 ml/min, renal function ok for current dose. No reported seizures > Pt on Phenobarbital 129.6mg q12hr since 07/23/19. Last level 09/08/19 was 33 (15-39), within therapeutic range > Pt also on Valium 5mg q12hr since 08/05 for muscle twitching/residual seizure activity per neurology. PRN also added > Pt on Magnesium Oxide 400mg daily since 08/03. Last Mg 2.0 > Continues with Lopressor 50mg q12hr, last BP wnl. > Pt on Omeprazole 40mg daily since 08/02/19, ok dose per renal function PRN MED USAGE: (Aug) Tylenol PRN pain/temp used x0 Zofran PRN used x0 Valium PRN musc twitching used x0 NEW ORDERS NOTED: > Rocephin 09/17-09/22 for UTI Patient was reviewed and discussed in depth per IDT team with no medication issues at this time. No further recommendations at this time per Rx, remains stable on current regimen and no issues from recent abx course. Will continue to follow
--- NOTE | 2019-09-29 15:12 | NUR ---
INTERDISCIPLINARY PLAN OF CARE CONFERENCE was held today. Patient's family is not very involved in patient's care and therefore does not attend the meeting. Dr. Lora and the Interdisciplinary Team reviewed the current plan of care in detail. RN reported on patient's current medical condition, and stated that Dr. Funes continues to follow the patient. No major changes in patient's condition were reported. See RN IDT conference notes. OT reported on recent order of new splints and current treatment plan. See all disciplines IDT notes and physician's progress notes for additional details.
--- NOTE | 2019-09-29 19:55 | NUR ---
Received pt on HT-50 ventilator with the following settings of AC-14, Vt-500, PEEP+5, FIO2-30%, trached with Shiley#8 DCT trach, which is in the place and secure. No SOB noted. Airway care done, pt responded to physical stimuli. HME changed. Resus. bag and back up trach at bedside. Vent and alarms checked and reset.
[2019-09-29] MEDS: MAGNESIUM OXIDE 400 MG TABLET GT SCH (20:09)
[2019-09-29] MEDS: MULTIVIT, IRON, MIN NO. 8, FA TABLET GT SCH (20:09)
[2019-09-29 20:22] VITALS: BP 137/76
[2019-09-30] MEDS: VITAL AF 1.2 1,000 ML LIQUID GT PRN (02:57)
[2019-09-30] MEDS: OMEPRAZOLE 40MG GT SCH (05:52)
[2019-09-30] MEDS: POLYVINYL ALCOHOL OPHT DROPS 15 ML BOTTLE EACHEYE SCH ×2 (05:52→18:05)
[2019-09-30 08:00] VITALS: BP 131/80
[2019-09-30] MEDS: levETIRAcetam 500 MG/5 ML LIQUID UDC GT SCH ×2 (08:55→20:57)
[2019-09-30] MEDS: AMIODARONE HCL 200 MG TABLET GT SCH (08:55)
[2019-09-30] MEDS: ASPIRIN 81 MG TAB.CHEW GT SCH (08:55)
[2019-09-30] MEDS: ASCORBIC ACID 500 MG TABLET PO SCH ×2 (08:56→20:58)
[2019-09-30] MEDS: COD LIVER OIL/ZINC OXIDE OINT 113 GM TUBE TP SCH ×2 (08:56→20:58)
[2019-09-30] MEDS: METOPROLOL TARTRATE 50 MG TABLET GT SCH ×2 (08:56→20:57)
[2019-09-30] MEDS: PHENOBARBITAL 30 MG/7.5 ML LIQUID UDC GT SCH ×2 (08:58→20:58)
[2019-09-30] MEDS: DIAZEPAM 5 MG TABLET GT SCH ×2 (08:58→20:58)
[2019-09-30] MEDS: HYDROGEN PEROXIDE 3% 118 ML BOTTLE TOP SCH ×2 (09:00→21:16)
[2019-09-30 20:16] VITALS: BP 115/69
[2019-09-30] MEDS: MAGNESIUM OXIDE 400 MG TABLET GT SCH (20:57)
[2019-09-30] MEDS: MULTIVIT, IRON, MIN NO. 8, FA TABLET GT SCH (20:58)
[2019-10-01] MEDS: POLYVINYL ALCOHOL OPHT DROPS 15 ML BOTTLE EACHEYE SCH ×2 (05:30→17:05)
[2019-10-01] MEDS: OMEPRAZOLE 40MG GT SCH (05:30)
[2019-10-01] MEDS: VITAL AF 1.2 1,000 ML LIQUID GT PRN (05:30)
[2019-10-01 08:00] VITALS: BP 128/75
[2019-10-01] MEDS: ASPIRIN 81 MG TAB.CHEW GT SCH (08:16)
[2019-10-01] MEDS: AMIODARONE HCL 200 MG TABLET GT SCH (08:16)
[2019-10-01] MEDS: levETIRAcetam 500 MG/5 ML LIQUID UDC GT SCH ×2 (08:16→21:04)
[2019-10-01] MEDS: PHENOBARBITAL 30 MG/7.5 ML LIQUID UDC GT SCH ×2 (08:17→21:05)
[2019-10-01] MEDS: METOPROLOL TARTRATE 50 MG TABLET GT SCH ×2 (08:17→21:05)
[2019-10-01] MEDS: ASCORBIC ACID 500 MG TABLET PO SCH ×2 (08:17→21:06)
[2019-10-01] MEDS: DIAZEPAM 5 MG TABLET GT SCH ×2 (08:17→21:06)
[2019-10-01] MEDS: COD LIVER OIL/ZINC OXIDE OINT 113 GM TUBE TP SCH ×2 (08:17→21:06)
[2019-10-01] MEDS: HYDROGEN PEROXIDE 3% 118 ML BOTTLE TOP SCH ×2 (09:00→21:00)
--- NOTE | 2019-10-01 16:38 | NUR ---
NEW ORDER FROM DR. TOLBERT RECOMMENDED BY OT CARRIED OUT.( OT ON HOLD UNTIL TOSHA. RESTING HAND SPLINTS ARRIVE.
[2019-10-01 20:20] VITALS: BP 112/69
[2019-10-01] MEDS: MAGNESIUM OXIDE 400 MG TABLET GT SCH (21:05)
[2019-10-01] MEDS: MULTIVIT, IRON, MIN NO. 8, FA TABLET GT SCH (21:06)
[2019-10-02] MEDS: OMEPRAZOLE 40MG GT SCH (05:18)
[2019-10-02] MEDS: POLYVINYL ALCOHOL OPHT DROPS 15 ML BOTTLE EACHEYE SCH ×2 (05:18→17:10)
[2019-10-02] MEDS: VITAL AF 1.2 1,000 ML LIQUID GT PRN (05:18)
[2019-10-02 08:00] VITALS: BP 120/64
[2019-10-02] MEDS: AMIODARONE HCL 200 MG TABLET GT SCH (08:57)
[2019-10-02] MEDS: PHENOBARBITAL 30 MG/7.5 ML LIQUID UDC GT SCH ×2 (08:57→20:56)
[2019-10-02] MEDS: COD LIVER OIL/ZINC OXIDE OINT 113 GM TUBE TP SCH ×2 (08:57→20:57)
[2019-10-02] MEDS: ASPIRIN 81 MG TAB.CHEW GT SCH (08:57)
[2019-10-02] MEDS: METOPROLOL TARTRATE 50 MG TABLET GT SCH ×2 (08:57→20:56)
[2019-10-02] MEDS: DIAZEPAM 5 MG TABLET GT SCH ×2 (08:57→20:57)
[2019-10-02] MEDS: ASCORBIC ACID 500 MG TABLET PO SCH ×2 (08:57→20:57)
[2019-10-02] MEDS: levETIRAcetam 500 MG/5 ML LIQUID UDC GT SCH ×2 (08:57→20:56)
[2019-10-02] MEDS: HYDROGEN PEROXIDE 3% 118 ML BOTTLE TOP SCH ×2 (09:19→21:00)
[2019-10-02] MEDS: MAGNESIUM OXIDE 400 MG TABLET GT SCH (20:56)
[2019-10-02] MEDS: MULTIVIT, IRON, MIN NO. 8, FA TABLET GT SCH (20:57)
[2019-10-03] MEDS: VITAL AF 1.2 1,000 ML LIQUID GT PRN (01:37)
[2019-10-03] MEDS: POLYVINYL ALCOHOL OPHT DROPS 15 ML BOTTLE EACHEYE SCH ×2 (06:01→18:07)
[2019-10-03] MEDS: OMEPRAZOLE 40MG GT SCH (06:01)
[2019-10-03] MEDS: HYDROGEN PEROXIDE 3% 118 ML BOTTLE TOP SCH ×2 (07:58→21:00)
[2019-10-03 08:08] VITALS: BP 131/68
[2019-10-03] MEDS: ASPIRIN 81 MG TAB.CHEW GT SCH (08:20)
[2019-10-03] MEDS: AMIODARONE HCL 200 MG TABLET GT SCH (08:21)
[2019-10-03] MEDS: levETIRAcetam 500 MG/5 ML LIQUID UDC GT SCH ×2 (08:21→20:56)
[2019-10-03] MEDS: METOPROLOL TARTRATE 50 MG TABLET GT SCH ×2 (08:22→20:56)
[2019-10-03] MEDS: PHENOBARBITAL 30 MG/7.5 ML LIQUID UDC GT SCH ×2 (08:22→20:56)
[2019-10-03] MEDS: ASCORBIC ACID 500 MG TABLET PO SCH ×2 (08:22→20:57)
[2019-10-03] MEDS: DIAZEPAM 5 MG TABLET GT SCH ×2 (08:22→20:57)
[2019-10-03] MEDS: COD LIVER OIL/ZINC OXIDE OINT 113 GM TUBE TP SCH ×2 (08:23→20:57)
--- NOTE | 2019-10-03 08:53 | NUR ---
PT. WAS SEEN AND EXAMINED BY DR. TOLBERT AND WITH NEW ORDERS CARRIED OUT.
[2019-10-03 20:25] VITALS: BP 157/75
[2019-10-03] MEDS: MAGNESIUM OXIDE 400 MG TABLET GT SCH (20:56)
[2019-10-03] MEDS: MULTIVIT, IRON, MIN NO. 8, FA TABLET GT SCH (20:57)
[2019-10-04] MEDS: VITAL AF 1.2 1,000 ML LIQUID GT PRN (01:17)
[2019-10-04] MEDS: OMEPRAZOLE 40MG GT SCH (06:03)
[2019-10-04] MEDS: POLYVINYL ALCOHOL OPHT DROPS 15 ML BOTTLE EACHEYE SCH ×2 (06:03→17:41)
[2019-10-04 08:00] VITALS: BP 98/63
[2019-10-04] MEDS: ASPIRIN 81 MG TAB.CHEW GT SCH (08:15)
[2019-10-04] MEDS: levETIRAcetam 500 MG/5 ML LIQUID UDC GT SCH ×2 (08:16→20:44)
[2019-10-04] MEDS: AMIODARONE HCL 200 MG TABLET GT SCH (08:16)
[2019-10-04] MEDS: ASCORBIC ACID 500 MG TABLET PO SCH ×2 (08:17→20:45)
[2019-10-04] MEDS: DIAZEPAM 5 MG TABLET GT SCH ×2 (08:17→20:45)
[2019-10-04] MEDS: PHENOBARBITAL 30 MG/7.5 ML LIQUID UDC GT SCH ×2 (08:17→20:45)
[2019-10-04] MEDS: METOPROLOL TARTRATE 50 MG TABLET GT SCH ×2 (08:18→20:45)
[2019-10-04] MEDS: COD LIVER OIL/ZINC OXIDE OINT 113 GM TUBE TP SCH ×2 (08:18→20:45)
[2019-10-04] MEDS: HYDROGEN PEROXIDE 3% 118 ML BOTTLE TOP SCH ×2 (09:46→21:24)
--- NOTE | 2019-10-04 20:23 | NUR ---
Received pt on HT-50 ventilator with the following settings of AC-14, Vt-500, PEEP+5, FIO2-30%, trached with Shiley#8 DCT trach, which is in the place and secure. No distress noted. Airway care done, pt responded to physical stimuli. HME changed. Resus. bag and back up trach at bedside. Vent and alarms checked and reset.
[2019-10-04 20:38] VITALS: BP 129/76
[2019-10-04] MEDS: MULTIVIT, IRON, MIN NO. 8, FA TABLET GT SCH (20:45)
[2019-10-04] MEDS: MAGNESIUM OXIDE 400 MG TABLET GT SCH (20:45)
[2019-10-05] MEDS: POLYVINYL ALCOHOL OPHT DROPS 15 ML BOTTLE EACHEYE SCH ×2 (05:17→17:52)
[2019-10-05] MEDS: VITAL AF 1.2 1,000 ML LIQUID GT PRN (05:18)
[2019-10-05] MEDS: OMEPRAZOLE 40MG GT SCH (05:18)
[2019-10-05 07:41] VITALS: BP 138/83
[2019-10-05] MEDS: HYDROGEN PEROXIDE 3% 118 ML BOTTLE TOP SCH ×2 (09:00→21:06)
[2019-10-05] MEDS: ASPIRIN 81 MG TAB.CHEW GT SCH (09:30)
[2019-10-05] MEDS: levETIRAcetam 500 MG/5 ML LIQUID UDC GT SCH ×2 (09:31→20:07)
[2019-10-05] MEDS: ASCORBIC ACID 500 MG TABLET PO SCH ×2 (09:31→20:07)
[2019-10-05] MEDS: AMIODARONE HCL 200 MG TABLET GT SCH (09:31)
[2019-10-05] MEDS: PHENOBARBITAL 30 MG/7.5 ML LIQUID UDC GT SCH ×2 (09:31→20:07)
[2019-10-05] MEDS: DIAZEPAM 5 MG TABLET GT SCH ×2 (09:31→20:07)
[2019-10-05] MEDS: METOPROLOL TARTRATE 50 MG TABLET GT SCH ×2 (09:31→21:07)
[2019-10-05] MEDS: COD LIVER OIL/ZINC OXIDE OINT 113 GM TUBE TP SCH ×2 (09:32→20:08)
--- NOTE | 2019-10-05 15:55 | NUR ---
SEEN AND EXAMINED BY FLASH MADISON.
--- NOTE | 2019-10-05 19:55 | NUR ---
PT RECEIVED ON CONTINUOUS VENT. TRACH IN PLACED AND SECURED WITH TRACH TIE. BACK UP TRACH AND AMBU BAG AT BEDSIDE. TRACH CARE DONE WITHOUT COMPLICATIONS NOTED. SUCTION COPIOUS AMOUNT THICK WHITE SECRETIONS. VENT CHECKED, ALARMS WORKING WELL AND AUDIBLE. NO DISTRESS NOTED AT THIS TIME. WILL CONTINUE TO MONITOR.
[2019-10-05] MEDS: MAGNESIUM OXIDE 400 MG TABLET GT SCH (20:07)
[2019-10-05] MEDS: MULTIVIT, IRON, MIN NO. 8, FA TABLET GT SCH (20:07)
[2019-10-05 20:49] VITALS: BP 131/81
[2019-10-06] MEDS: VITAL AF 1.2 1,000 ML LIQUID GT PRN (05:29)
[2019-10-06] MEDS: OMEPRAZOLE 40MG GT SCH (05:29)
[2019-10-06] MEDS: POLYVINYL ALCOHOL OPHT DROPS 15 ML BOTTLE EACHEYE SCH ×2 (05:29→17:25)
[2019-10-06 08:00] VITALS: BP 100/55
[2019-10-06] MEDS: ASPIRIN 81 MG TAB.CHEW GT SCH (08:02)
[2019-10-06] MEDS: AMIODARONE HCL 200 MG TABLET GT SCH (08:02)
[2019-10-06] MEDS: levETIRAcetam 500 MG/5 ML LIQUID UDC GT SCH ×2 (08:02→21:29)
[2019-10-06] MEDS: ASCORBIC ACID 500 MG TABLET PO SCH ×2 (08:03→21:31)
[2019-10-06] MEDS: METOPROLOL TARTRATE 50 MG TABLET GT SCH ×2 (08:03→21:00)
[2019-10-06] MEDS: DIAZEPAM 5 MG TABLET GT SCH ×2 (08:03→21:31)
[2019-10-06] MEDS: PHENOBARBITAL 30 MG/7.5 ML LIQUID UDC GT SCH ×2 (08:03→21:31)
[2019-10-06] MEDS: COD LIVER OIL/ZINC OXIDE OINT 113 GM TUBE TP SCH ×2 (08:03→21:31)
[2019-10-06] MEDS: HYDROGEN PEROXIDE 3% 118 ML BOTTLE TOP SCH ×2 (09:00→21:06)
[2019-10-06 20:28] VITALS: BP 101/51
[2019-10-06] MEDS: MAGNESIUM OXIDE 400 MG TABLET GT SCH (21:31)
[2019-10-06] MEDS: MULTIVIT, IRON, MIN NO. 8, FA TABLET GT SCH (21:31)
[2019-10-07] MEDS: VITAL AF 1.2 1,000 ML LIQUID GT PRN (01:00)
[2019-10-07] MEDS: OMEPRAZOLE 40MG GT SCH (05:23)
[2019-10-07] MEDS: POLYVINYL ALCOHOL OPHT DROPS 15 ML BOTTLE EACHEYE SCH ×2 (05:23→17:20)
[2019-10-07 07:39] LABS: BASOPHILS % (AUTO) 0.5 % (0.0-2.0); EOSINOPHILS # (AUTO) 0.1 K/uL (0.0-0.7); EOSINOPHILS % (AUTO) 2.8 % (0.0-7.0); HEMATOCRIT 25.1 % (31.2-41.9); HEMOGLOBIN 8.8 g/dL (10.9-14.3); LYMPHOCYTES % (AUTO) 19.5 % (20.5-51.5); MEAN CORPUSCULAR HEMOGLOBIN 31.2 uug (24.7-32.8); MEAN CORPUSCULAR HGB CONC 35 g/dL (32.3-35.6); MEAN CORPUSCULAR VOLUME 89.2 fL (75.5-95.3); MONOCYTES # (AUTO) 0.5 K/uL (2.0-10.0); NEUTROPHILS # (AUTO) 3.6 K/uL (1.8-8.9); NEUTROPHILS % (AUTO) 68.2 % (38.5-71.5); PLATELET COUNT (AUTO) 143 K/uL (179-408); RED BLOOD CELL COUNT(AUTO) 2.81 MIL/uL (3.63-4.92); WHITE BLOOD COUNT (AUTO) 5.2 K/uL (3.8-11.8)
[2019-10-07 07:50] LABS: ALANINE AMINOTRANSFERASE 23 U/L (14-59); ALKALINE PHOSPHATASE 89 U/L (50-136); ASPARTATE AMINOTRANSFERASE 13 U/L (15-37); BILIRUBIN,TOTAL 0.2 mg/dL (0.2-1.0); CARBON DIOXIDE 30 mmol/L (21-32); CHLORIDE 106 mmol/L (98-107); CREATININE 0.3 mg/dL (0.6-1.3); GLUCOSE 97 mg/dL (74-106); MAGNESIUM 1.9 mg/dL (1.8-2.4); PHOSPHOROUS 3.9 mg/dL (2.5-4.9); TOTAL PROTEIN, SERUM 7.4 g/dL (6.4-8.2); UREA NITROGEN, BLOOD 18 mg/dL (7-18)
[2019-10-07] MEDS: levETIRAcetam 500 MG/5 ML LIQUID UDC GT SCH ×2 (08:04→21:43)
[2019-10-07] MEDS: ASPIRIN 81 MG TAB.CHEW GT SCH (08:04)
[2019-10-07] MEDS: AMIODARONE HCL 200 MG TABLET GT SCH (08:04)
[2019-10-07] MEDS: ASCORBIC ACID 500 MG TABLET PO SCH ×2 (08:05→21:45)
[2019-10-07] MEDS: METOPROLOL TARTRATE 50 MG TABLET GT SCH ×2 (08:05→21:44)
[2019-10-07] MEDS: DIAZEPAM 5 MG TABLET GT SCH ×2 (08:05→21:45)
[2019-10-07] MEDS: COD LIVER OIL/ZINC OXIDE OINT 113 GM TUBE TP SCH ×2 (08:05→21:45)
[2019-10-07] MEDS: PHENOBARBITAL 30 MG/7.5 ML LIQUID UDC GT SCH ×2 (08:05→21:45)
[2019-10-07] MEDS: HYDROGEN PEROXIDE 3% 118 ML BOTTLE TOP SCH ×2 (09:53→20:52)
[2019-10-07 11:02] VITALS: BP 131/74
[2019-10-07 20:59] VITALS: BP 134/84
[2019-10-07] MEDS: MAGNESIUM OXIDE 400 MG TABLET GT SCH (21:44)
[2019-10-07] MEDS: MULTIVIT, IRON, MIN NO. 8, FA TABLET GT SCH (21:45)
[2019-10-08] MEDS: VITAL AF 1.2 1,000 ML LIQUID GT PRN (05:03)
[2019-10-08] MEDS: OMEPRAZOLE 40MG GT SCH (05:06)
[2019-10-08] MEDS: POLYVINYL ALCOHOL OPHT DROPS 15 ML BOTTLE EACHEYE SCH ×2 (05:06→17:19)
[2019-10-08] MEDS: levETIRAcetam 500 MG/5 ML LIQUID UDC GT SCH ×2 (08:30→21:28)
[2019-10-08] MEDS: ASPIRIN 81 MG TAB.CHEW GT SCH (08:30)
[2019-10-08] MEDS: ASCORBIC ACID 500 MG TABLET PO SCH ×2 (08:30→21:30)
[2019-10-08] MEDS: AMIODARONE HCL 200 MG TABLET GT SCH (08:30)
[2019-10-08] MEDS: PHENOBARBITAL 30 MG/7.5 ML LIQUID UDC GT SCH ×2 (08:30→21:30)
[2019-10-08] MEDS: DIAZEPAM 5 MG TABLET GT SCH ×2 (08:30→21:30)
[2019-10-08] MEDS: METOPROLOL TARTRATE 50 MG TABLET GT SCH ×2 (08:30→21:30)
[2019-10-08] MEDS: COD LIVER OIL/ZINC OXIDE OINT 113 GM TUBE TP SCH ×2 (08:30→21:31)
[2019-10-08] MEDS: HYDROGEN PEROXIDE 3% 118 ML BOTTLE TOP SCH ×2 (09:04→21:45)
[2019-10-08 18:13] VITALS: BP 137/62
--- NOTE | 2019-10-08 19:00 | NUR ---
SEEN BY WITH NNO.
[2019-10-08 20:38] VITALS: BP 151/100
[2019-10-08] MEDS: MAGNESIUM OXIDE 400 MG TABLET GT SCH (21:30)
[2019-10-08] MEDS: MULTIVIT, IRON, MIN NO. 8, FA TABLET GT SCH (21:30)
[2019-10-08 23:20] VITALS: BP 112/75
[2019-10-09] MEDS: VITAL AF 1.2 1,000 ML LIQUID GT PRN ×2 (05:02→23:21)
[2019-10-09] MEDS: OMEPRAZOLE 40MG GT SCH (06:10)
[2019-10-09] MEDS: POLYVINYL ALCOHOL OPHT DROPS 15 ML BOTTLE EACHEYE SCH ×2 (06:10→17:17)
[2019-10-09] MEDS: AMIODARONE HCL 200 MG TABLET GT SCH (08:39)
[2019-10-09] MEDS: ASPIRIN 81 MG TAB.CHEW GT SCH (08:39)
[2019-10-09] MEDS: levETIRAcetam 500 MG/5 ML LIQUID UDC GT SCH ×2 (08:39→20:40)
[2019-10-09] MEDS: PHENOBARBITAL 30 MG/7.5 ML LIQUID UDC GT SCH ×2 (08:40→20:40)
[2019-10-09] MEDS: METOPROLOL TARTRATE 50 MG TABLET GT SCH ×2 (08:40→20:40)
[2019-10-09] MEDS: ASCORBIC ACID 500 MG TABLET PO SCH ×2 (08:40→20:40)
[2019-10-09] MEDS: COD LIVER OIL/ZINC OXIDE OINT 113 GM TUBE TP SCH ×2 (08:40→20:40)
[2019-10-09] MEDS: DIAZEPAM 5 MG TABLET GT SCH ×2 (08:40→20:40)
[2019-10-09] MEDS: HYDROGEN PEROXIDE 3% 118 ML BOTTLE TOP SCH ×2 (09:00→21:24)
[2019-10-09 14:49] VITALS: BP 141/84
[2019-10-09 20:01] VITALS: BP 83/46
--- NOTE | 2019-10-09 20:05 | NUR ---
PT RECEIVED ON CONTINUOUS VENT. TRACH IN PLACED AND SECURED WITH TRACH TIE. BACK UP TRACH AND AMBU BAG AT BEDSIDE. TRACH CARE DONE. SUCTION MODERATE AMOUNT THICK WHITE SECRETIONS. VENT CHECKED, ALARMS WORKING WELL AND AUDIBLE. NO DISTRESS NOTED AT THIS TIME. WILL CONTINUE TO MONITOR.
[2019-10-09] MEDS: MULTIVIT, IRON, MIN NO. 8, FA TABLET GT SCH (20:40)
[2019-10-09] MEDS: MAGNESIUM OXIDE 400 MG TABLET GT SCH (20:40)
[2019-10-10] MEDS: POLYVINYL ALCOHOL OPHT DROPS 15 ML BOTTLE EACHEYE SCH ×2 (05:11→17:23)
[2019-10-10] MEDS: OMEPRAZOLE 40MG GT SCH (05:11)
[2019-10-10] MEDS: ASPIRIN 81 MG TAB.CHEW GT SCH (08:22)
[2019-10-10] MEDS: levETIRAcetam 500 MG/5 ML LIQUID UDC GT SCH ×2 (08:23→20:17)
[2019-10-10] MEDS: PHENOBARBITAL 30 MG/7.5 ML LIQUID UDC GT SCH ×2 (08:23→20:18)
[2019-10-10] MEDS: METOPROLOL TARTRATE 50 MG TABLET GT SCH ×2 (08:23→20:17)
[2019-10-10] MEDS: AMIODARONE HCL 200 MG TABLET GT SCH (08:23)
[2019-10-10] MEDS: COD LIVER OIL/ZINC OXIDE OINT 113 GM TUBE TP SCH ×2 (08:24→20:18)
[2019-10-10] MEDS: ASCORBIC ACID 500 MG TABLET PO SCH ×2 (08:24→20:18)
[2019-10-10] MEDS: DIAZEPAM 5 MG TABLET GT SCH ×2 (08:24→20:18)
[2019-10-10] MEDS: HYDROGEN PEROXIDE 3% 118 ML BOTTLE TOP SCH ×2 (08:29→21:53)
[2019-10-10 11:54] VITALS: BP 115/68
[2019-10-10] MEDS: VITAL AF 1.2 1,000 ML LIQUID GT PRN (17:00)
[2019-10-10] MEDS: MAGNESIUM OXIDE 400 MG TABLET GT SCH (20:18)
[2019-10-10] MEDS: MULTIVIT, IRON, MIN NO. 8, FA TABLET GT SCH (20:18)
[2019-10-10 22:48] VITALS: BP 101/59
[2019-10-11] MEDS: POLYVINYL ALCOHOL OPHT DROPS 15 ML BOTTLE EACHEYE SCH ×2 (05:09→17:10)
[2019-10-11] MEDS: OMEPRAZOLE 40MG GT SCH (05:09)
[2019-10-11 08:16] VITALS: BP 112/72
[2019-10-11] MEDS: METOPROLOL TARTRATE 50 MG TABLET GT SCH ×2 (09:46→20:23)
[2019-10-11] MEDS: AMIODARONE HCL 200 MG TABLET GT SCH (09:46)
[2019-10-11] MEDS: levETIRAcetam 500 MG/5 ML LIQUID UDC GT SCH ×2 (09:46→20:23)
[2019-10-11] MEDS: COD LIVER OIL/ZINC OXIDE OINT 113 GM TUBE TP SCH ×2 (09:46→20:23)
[2019-10-11] MEDS: ASCORBIC ACID 500 MG TABLET PO SCH ×2 (09:46→20:23)
[2019-10-11] MEDS: ASPIRIN 81 MG TAB.CHEW GT SCH (09:46)
[2019-10-11] MEDS: PHENOBARBITAL 30 MG/7.5 ML LIQUID UDC GT SCH ×2 (09:46→20:23)
[2019-10-11] MEDS: DIAZEPAM 5 MG TABLET GT SCH ×2 (09:46→20:23)
[2019-10-11] MEDS: HYDROGEN PEROXIDE 3% 118 ML BOTTLE TOP SCH ×2 (10:04→21:11)
[2019-10-11] MEDS: VITAL AF 1.2 1,000 ML LIQUID GT PRN (15:56)
[2019-10-11] MEDS: MAGNESIUM OXIDE 400 MG TABLET GT SCH (20:23)
[2019-10-11] MEDS: MULTIVIT, IRON, MIN NO. 8, FA TABLET GT SCH (20:23)
[2019-10-11 22:33] VITALS: BP 115/71
[2019-10-12] MEDS: POLYVINYL ALCOHOL OPHT DROPS 15 ML BOTTLE EACHEYE SCH ×2 (05:26→17:37)
[2019-10-12] MEDS: OMEPRAZOLE 40MG GT SCH (05:26)
[2019-10-12 08:00] VITALS: BP 139/75
[2019-10-12] MEDS: ASPIRIN 81 MG TAB.CHEW GT SCH (08:01)
[2019-10-12] MEDS: levETIRAcetam 500 MG/5 ML LIQUID UDC GT SCH ×2 (08:06→20:59)
[2019-10-12] MEDS: PHENOBARBITAL 30 MG/7.5 ML LIQUID UDC GT SCH ×2 (08:08→21:01)
[2019-10-12] MEDS: AMIODARONE HCL 200 MG TABLET GT SCH (08:08)
[2019-10-12] MEDS: METOPROLOL TARTRATE 50 MG TABLET GT SCH ×2 (08:08→21:00)
[2019-10-12] MEDS: ASCORBIC ACID 500 MG TABLET PO SCH ×2 (08:09→21:01)
[2019-10-12] MEDS: DIAZEPAM 5 MG TABLET GT SCH ×2 (08:09→21:01)
[2019-10-12] MEDS: COD LIVER OIL/ZINC OXIDE OINT 113 GM TUBE TP SCH ×2 (08:09→21:01)
[2019-10-12] MEDS: HYDROGEN PEROXIDE 3% 118 ML BOTTLE TOP SCH ×2 (09:00→21:04)
[2019-10-12] MEDS: VITAL AF 1.2 1,000 ML LIQUID GT PRN (14:48)
[2019-10-12] MEDS: MAGNESIUM OXIDE 400 MG TABLET GT SCH (21:00)
[2019-10-12] MEDS: MULTIVIT, IRON, MIN NO. 8, FA TABLET GT SCH (21:01)
[2019-10-12 23:24] VITALS: BP 127/79
[2019-10-13] MEDS: POLYVINYL ALCOHOL OPHT DROPS 15 ML BOTTLE EACHEYE SCH ×2 (05:14→17:28)
[2019-10-13] MEDS: OMEPRAZOLE 40MG GT SCH (05:14)
[2019-10-13 06:59] LABS: CARBON DIOXIDE 29 mmol/L (21-32); CHLORIDE 108 mmol/L (98-107); CREATININE 0.4 mg/dL (0.6-1.3); GLUCOSE 96 mg/dL (74-106); POTASSIUM 4.4 mmol/L (3.5-5.1); UREA NITROGEN, BLOOD 18 mg/dL (7-18)
[2019-10-13 07:00] LABS: BASOPHILS % (AUTO) 0.7 % (0.0-2.0); EOSINOPHILS # (AUTO) 0.1 K/uL (0.0-0.7); HEMATOCRIT 26.2 % (31.2-41.9); HEMOGLOBIN 9.1 g/dL (10.9-14.3); MEAN CORPUSCULAR HGB CONC 35 g/dL (32.3-35.6); MONOCYTES # (AUTO) 0.3 K/uL (2.0-10.0); NEUTROPHILS # (AUTO) 2.1 K/uL (1.8-8.9); RED BLOOD CELL COUNT(AUTO) 2.97 MIL/uL (3.63-4.92)
[2019-10-13 07:05] LABS: LYMPHOCYTES # (AUTO) 0.8 K/uL (20.0-40.0); LYMPHOCYTES % (AUTO) 24.4 % (20.5-51.5); MEAN CORPUSCULAR HEMOGLOBIN 30.7 uug (24.7-32.8); MEAN CORPUSCULAR VOLUME 88.3 fL (75.5-95.3); MONOCYTES % (AUTO) 9.3 % (0.0-11.0); NEUTROPHILS % (AUTO) 61.6 % (38.5-71.5)
[2019-10-13 07:06] LABS: PLATELET COUNT (AUTO) 202 K/uL (179-408); WHITE BLOOD COUNT (AUTO) 3.4 K/uL (3.8-11.8)
[2019-10-13 08:00] VITALS: BP 135/77
[2019-10-13] MEDS: HYDROGEN PEROXIDE 3% 118 ML BOTTLE TOP SCH ×2 (08:08→21:58)
[2019-10-13] MEDS: DIAZEPAM 5 MG TABLET GT SCH ×2 (09:08→21:23)
[2019-10-13] MEDS: ASPIRIN 81 MG TAB.CHEW GT SCH (09:08)
[2019-10-13] MEDS: PHENOBARBITAL 30 MG/7.5 ML LIQUID UDC GT SCH ×2 (09:08→21:23)
[2019-10-13] MEDS: AMIODARONE HCL 200 MG TABLET GT SCH (09:08)
[2019-10-13] MEDS: levETIRAcetam 500 MG/5 ML LIQUID UDC GT SCH ×2 (09:09→21:20)
[2019-10-13] MEDS: METOPROLOL TARTRATE 50 MG TABLET GT SCH ×2 (09:09→21:00)
[2019-10-13] MEDS: ASCORBIC ACID 500 MG TABLET PO SCH ×2 (09:09→21:23)
[2019-10-13] MEDS: COD LIVER OIL/ZINC OXIDE OINT 113 GM TUBE TP SCH ×2 (09:10→21:24)
[2019-10-13] MEDS: VITAL AF 1.2 1,000 ML LIQUID GT PRN (15:55)
[2019-10-13 20:00] VITALS: BP 112/71
[2019-10-13] MEDS: MAGNESIUM OXIDE 400 MG TABLET GT SCH (21:22)
[2019-10-13] MEDS: MULTIVIT, IRON, MIN NO. 8, FA TABLET GT SCH (21:23)
[2019-10-14] MEDS: POLYVINYL ALCOHOL OPHT DROPS 15 ML BOTTLE EACHEYE SCH ×2 (05:45→17:10)
[2019-10-14] MEDS: OMEPRAZOLE 40MG GT SCH (05:45)
[2019-10-14] MEDS: HYDROGEN PEROXIDE 3% 118 ML BOTTLE TOP SCH ×2 (07:46→21:55)
[2019-10-14 08:00] VITALS: BP 148/80
[2019-10-14] MEDS: ASPIRIN 81 MG TAB.CHEW GT SCH (08:30)
[2019-10-14] MEDS: AMIODARONE HCL 200 MG TABLET GT SCH (08:30)
[2019-10-14] MEDS: levETIRAcetam 500 MG/5 ML LIQUID UDC GT SCH ×2 (08:31→20:26)
[2019-10-14] MEDS: METOPROLOL TARTRATE 50 MG TABLET GT SCH ×2 (08:31→20:26)
[2019-10-14] MEDS: COD LIVER OIL/ZINC OXIDE OINT 113 GM TUBE TP SCH ×2 (08:32→20:27)
[2019-10-14] MEDS: DIAZEPAM 5 MG TABLET GT SCH ×2 (08:32→20:27)
[2019-10-14] MEDS: PHENOBARBITAL 30 MG/7.5 ML LIQUID UDC GT SCH ×2 (08:32→20:27)
[2019-10-14] MEDS: ASCORBIC ACID 500 MG TABLET PO SCH ×2 (08:32→20:27)
[2019-10-14] MEDS: MAGNESIUM OXIDE 400 MG TABLET GT SCH (20:27)
[2019-10-14] MEDS: MULTIVIT, IRON, MIN NO. 8, FA TABLET GT SCH (20:27)
[2019-10-14 21:17] VITALS: BP 129/79
[2019-10-15] MEDS: OMEPRAZOLE 40MG GT SCH (05:41)
[2019-10-15] MEDS: POLYVINYL ALCOHOL OPHT DROPS 15 ML BOTTLE EACHEYE SCH ×2 (05:41→17:15)
[2019-10-15 08:00] VITALS: BP 140/68
[2019-10-15] MEDS: ASPIRIN 81 MG TAB.CHEW GT SCH (08:06)
[2019-10-15] MEDS: AMIODARONE HCL 200 MG TABLET GT SCH (08:08)
[2019-10-15] MEDS: levETIRAcetam 500 MG/5 ML LIQUID UDC GT SCH ×2 (08:08→20:11)
[2019-10-15] MEDS: DIAZEPAM 5 MG TABLET GT SCH ×2 (08:09→20:14)
[2019-10-15] MEDS: ASCORBIC ACID 500 MG TABLET PO SCH ×2 (08:09→20:14)
[2019-10-15] MEDS: PHENOBARBITAL 30 MG/7.5 ML LIQUID UDC GT SCH ×2 (08:09→20:13)
[2019-10-15] MEDS: METOPROLOL TARTRATE 50 MG TABLET GT SCH ×2 (08:09→20:11)
[2019-10-15] MEDS: COD LIVER OIL/ZINC OXIDE OINT 113 GM TUBE TP SCH ×2 (08:09→20:15)
[2019-10-15] MEDS: HYDROGEN PEROXIDE 3% 118 ML BOTTLE TOP SCH ×2 (08:51→21:10)
--- NOTE | 2019-10-15 14:15 | NUR ---
SEEN BY DR. RODRIGUEZ AND WITH NNO.
[2019-10-15 20:00] VITALS: BP 111/81
[2019-10-15] MEDS: MAGNESIUM OXIDE 400 MG TABLET GT SCH (20:12)
[2019-10-15] MEDS: MULTIVIT, IRON, MIN NO. 8, FA TABLET GT SCH (20:13)
[2019-10-16] MEDS: OMEPRAZOLE 40MG GT SCH (06:10)
[2019-10-16] MEDS: POLYVINYL ALCOHOL OPHT DROPS 15 ML BOTTLE EACHEYE SCH ×2 (06:10→17:29)
[2019-10-16 08:00] VITALS: BP 127/77
[2019-10-16] MEDS: AMIODARONE HCL 200 MG TABLET GT SCH (08:11)
[2019-10-16] MEDS: ASPIRIN 81 MG TAB.CHEW GT SCH (08:11)
[2019-10-16] MEDS: levETIRAcetam 500 MG/5 ML LIQUID UDC GT SCH ×2 (08:12→21:31)
[2019-10-16] MEDS: PHENOBARBITAL 30 MG/7.5 ML LIQUID UDC GT SCH ×2 (08:14→21:31)
[2019-10-16] MEDS: DIAZEPAM 5 MG TABLET GT SCH ×2 (08:14→21:31)
[2019-10-16] MEDS: METOPROLOL TARTRATE 50 MG TABLET GT SCH ×2 (08:14→21:31)
[2019-10-16] MEDS: ASCORBIC ACID 500 MG TABLET PO SCH ×2 (08:14→21:32)
[2019-10-16] MEDS: COD LIVER OIL/ZINC OXIDE OINT 113 GM TUBE TP SCH ×2 (08:14→21:32)
[2019-10-16] MEDS: HYDROGEN PEROXIDE 3% 118 ML BOTTLE TOP SCH ×2 (09:00→21:38)
[2019-10-16 20:15] VITALS: BP 141/68
[2019-10-16] MEDS: MAGNESIUM OXIDE 400 MG TABLET GT SCH (21:31)
[2019-10-16] MEDS: MULTIVIT, IRON, MIN NO. 8, FA TABLET GT SCH (21:31)
[2019-10-17] MEDS: OMEPRAZOLE 40MG GT SCH (05:13)
[2019-10-17] MEDS: POLYVINYL ALCOHOL OPHT DROPS 15 ML BOTTLE EACHEYE SCH ×2 (05:13→18:05)
[2019-10-17] MEDS: HYDROGEN PEROXIDE 3% 118 ML BOTTLE TOP SCH ×2 (07:57→21:40)
[2019-10-17 08:30] VITALS: BP 106/62
[2019-10-17] MEDS: ASPIRIN 81 MG TAB.CHEW GT SCH (08:31)
[2019-10-17] MEDS: levETIRAcetam 500 MG/5 ML LIQUID UDC GT SCH ×2 (08:35→20:42)
[2019-10-17] MEDS: AMIODARONE HCL 200 MG TABLET GT SCH (08:35)
[2019-10-17] MEDS: METOPROLOL TARTRATE 50 MG TABLET GT SCH ×2 (08:36→20:42)
[2019-10-17] MEDS: ASCORBIC ACID 500 MG TABLET PO SCH ×2 (08:37→20:42)
[2019-10-17] MEDS: PHENOBARBITAL 30 MG/7.5 ML LIQUID UDC GT SCH ×2 (08:37→20:42)
[2019-10-17] MEDS: COD LIVER OIL/ZINC OXIDE OINT 113 GM TUBE TP SCH ×2 (08:39→20:42)
[2019-10-17] MEDS: DIAZEPAM 5 MG TABLET GT SCH ×2 (08:44→20:42)
[2019-10-17] MEDS: MULTIVIT, IRON, MIN NO. 8, FA TABLET GT SCH (20:42)
[2019-10-17] MEDS: MAGNESIUM OXIDE 400 MG TABLET GT SCH (20:42)
[2019-10-17 20:48] VITALS: BP 124/71
[2019-10-18] MEDS: POLYVINYL ALCOHOL OPHT DROPS 15 ML BOTTLE EACHEYE SCH ×2 (05:24→17:48)
[2019-10-18] MEDS: OMEPRAZOLE 40MG GT SCH (05:24)
--- NOTE | 2019-10-18 05:47 | NUR ---
PT RECEIVED ON HT 50 VENT AND KATALINA SETTINGS WELL. NO PRN TX INDICATED. TRACH CARE DONE AND HME CHANGED. PRN SXN VIA TRACH & ORAL PROVIDED. TRACH TUBE IS IN PLACE AND SECURED. AMBU BAG AND SPARE TRACH AT BEDSIDE. NO SOB NOTED, WILL CONTINUE TO MONITOR.
[2019-10-18 08:00] VITALS: BP 138/84
[2019-10-18] MEDS: METOPROLOL TARTRATE 50 MG TABLET GT SCH ×2 (08:06→20:53)
[2019-10-18] MEDS: DIAZEPAM 5 MG TABLET GT SCH ×2 (08:06→20:53)
[2019-10-18] MEDS: ASCORBIC ACID 500 MG TABLET PO SCH ×2 (08:06→20:53)
[2019-10-18] MEDS: AMIODARONE HCL 200 MG TABLET GT SCH (08:06)
[2019-10-18] MEDS: COD LIVER OIL/ZINC OXIDE OINT 113 GM TUBE TP SCH ×2 (08:06→20:54)
[2019-10-18] MEDS: PHENOBARBITAL 30 MG/7.5 ML LIQUID UDC GT SCH ×2 (08:06→20:53)
[2019-10-18] MEDS: ASPIRIN 81 MG TAB.CHEW GT SCH (08:06)
[2019-10-18] MEDS: levETIRAcetam 500 MG/5 ML LIQUID UDC GT SCH ×2 (08:06→20:50)
[2019-10-18] MEDS: HYDROGEN PEROXIDE 3% 118 ML BOTTLE TOP SCH ×2 (08:50→20:59)
[2019-10-18] MEDS: VITAL AF 1.2 1,000 ML LIQUID GT PRN (19:10)
[2019-10-18 20:38] VITALS: BP 127/71
[2019-10-18] MEDS: MULTIVIT, IRON, MIN NO. 8, FA TABLET GT SCH (20:53)
[2019-10-18] MEDS: MAGNESIUM OXIDE 400 MG TABLET GT SCH (20:53)
[2019-10-19] MEDS: POLYVINYL ALCOHOL OPHT DROPS 15 ML BOTTLE EACHEYE SCH ×2 (05:11→17:19)
[2019-10-19] MEDS: OMEPRAZOLE 40MG GT SCH (05:12)
[2019-10-19 08:00] VITALS: BP 142/75
[2019-10-19] MEDS: AMIODARONE HCL 200 MG TABLET GT SCH (08:19)
[2019-10-19] MEDS: levETIRAcetam 500 MG/5 ML LIQUID UDC GT SCH ×2 (08:19→21:18)
[2019-10-19] MEDS: ASPIRIN 81 MG TAB.CHEW GT SCH (08:19)
[2019-10-19] MEDS: COD LIVER OIL/ZINC OXIDE OINT 113 GM TUBE TP SCH ×2 (08:20→21:19)
[2019-10-19] MEDS: PHENOBARBITAL 30 MG/7.5 ML LIQUID UDC GT SCH ×2 (08:20→21:18)
[2019-10-19] MEDS: DIAZEPAM 5 MG TABLET GT SCH ×2 (08:20→21:19)
[2019-10-19] MEDS: METOPROLOL TARTRATE 50 MG TABLET GT SCH ×2 (08:20→21:18)
[2019-10-19] MEDS: ASCORBIC ACID 500 MG TABLET PO SCH ×2 (08:20→21:19)
[2019-10-19] MEDS: HYDROGEN PEROXIDE 3% 118 ML BOTTLE TOP SCH ×2 (09:46→21:02)
--- NOTE | 2019-10-19 11:00 | NUR ---
SEEN BY ALYSSA Mclaughlin AND WITH THERESEO.
--- NOTE | 2019-10-19 19:50 | NUR ---
PT RECEIVED ON CONTINUOUS VENT. TRACH IN PLACED AND SECURED WITH TRACH TIE. TRACH CARE DONE. BACK UP TRACH AND AMBU BAG AT BEDSIDE. SUCTION COPIOUS AMOUNT THICK WHITE SECRETIONS. VENT CHECKED, ALARMS WORKING WELL AND AUDIBLE. NO DISTRESS NOTED AT THIS TIME. WILL CONTINUE TO MONITOR.
[2019-10-19 20:03] VITALS: BP 136/75
[2019-10-19] MEDS: MULTIVIT, IRON, MIN NO. 8, FA TABLET GT SCH (21:18)
[2019-10-19] MEDS: MAGNESIUM OXIDE 400 MG TABLET GT SCH (21:18)
[2019-10-20] MEDS: OMEPRAZOLE 40MG GT SCH (05:13)
[2019-10-20] MEDS: POLYVINYL ALCOHOL OPHT DROPS 15 ML BOTTLE EACHEYE SCH ×2 (05:13→17:07)
[2019-10-20 08:00] VITALS: BP 118/63
[2019-10-20] MEDS: ASPIRIN 81 MG TAB.CHEW GT SCH (08:12)
[2019-10-20] MEDS: AMIODARONE HCL 200 MG TABLET GT SCH (08:14)
[2019-10-20] MEDS: levETIRAcetam 500 MG/5 ML LIQUID UDC GT SCH ×2 (08:14→20:57)
[2019-10-20] MEDS: METOPROLOL TARTRATE 50 MG TABLET GT SCH ×2 (08:15→21:00)
[2019-10-20] MEDS: PHENOBARBITAL 30 MG/7.5 ML LIQUID UDC GT SCH ×2 (08:15→20:58)
[2019-10-20] MEDS: ASCORBIC ACID 500 MG TABLET PO SCH ×2 (08:15→20:58)
[2019-10-20] MEDS: COD LIVER OIL/ZINC OXIDE OINT 113 GM TUBE TP SCH ×2 (08:15→20:59)
[2019-10-20] MEDS: DIAZEPAM 5 MG TABLET GT SCH ×2 (08:15→20:58)
[2019-10-20] MEDS: HYDROGEN PEROXIDE 3% 118 ML BOTTLE TOP SCH ×2 (09:47→21:00)
[2019-10-20 19:41] VITALS: BP 157/81
[2019-10-20] MEDS: MAGNESIUM OXIDE 400 MG TABLET GT SCH (20:58)
[2019-10-20] MEDS: MULTIVIT, IRON, MIN NO. 8, FA TABLET GT SCH (20:58)
[2019-10-20] MEDS: VITAL AF 1.2 1,000 ML LIQUID GT PRN (23:36)
[2019-10-21] MEDS: OMEPRAZOLE 40MG GT SCH (05:20)
[2019-10-21] MEDS: POLYVINYL ALCOHOL OPHT DROPS 15 ML BOTTLE EACHEYE SCH ×2 (05:20→17:14)
[2019-10-21] MEDS: HYDROGEN PEROXIDE 3% 118 ML BOTTLE TOP SCH ×2 (07:45→21:00)
[2019-10-21] MEDS: levETIRAcetam 500 MG/5 ML LIQUID UDC GT SCH ×2 (08:15→20:39)
[2019-10-21] MEDS: ASPIRIN 81 MG TAB.CHEW GT SCH (08:15)
[2019-10-21] MEDS: AMIODARONE HCL 200 MG TABLET GT SCH (08:15)
[2019-10-21] MEDS: DIAZEPAM 5 MG TABLET GT SCH ×2 (08:16→20:41)
[2019-10-21] MEDS: PHENOBARBITAL 30 MG/7.5 ML LIQUID UDC GT SCH ×2 (08:16→20:40)
[2019-10-21] MEDS: METOPROLOL TARTRATE 50 MG TABLET GT SCH ×2 (08:16→20:39)
[2019-10-21] MEDS: ASCORBIC ACID 500 MG TABLET PO SCH ×2 (08:16→20:41)
[2019-10-21] MEDS: COD LIVER OIL/ZINC OXIDE OINT 113 GM TUBE TP SCH ×2 (08:17→20:41)
[2019-10-21 11:47] VITALS: BP 111/57
[2019-10-21 20:28] VITALS: BP 179/95
[2019-10-21] MEDS: MULTIVIT, IRON, MIN NO. 8, FA TABLET GT SCH (20:40)
[2019-10-21] MEDS: MAGNESIUM OXIDE 400 MG TABLET GT SCH (20:40)
[2019-10-21 22:20] VITALS: BP 108/55
--- NOTE | 2019-10-22 01:06 | NUR ---
RESIDENT WAS RECEIVED ON BETSY HT50 VENT WITH ORDERED SETTINGS. NO SIGNS OF RESPIRATORY DISTRESS NOTED. SHE IS TRACHED WITH A SHILEY 8 DCT. AIRWAY IS PATENT AND SECURED @ [facility]. SOLID WASTE ENGINEER USED FOR CUFF ASSESSMENT/INFLATION. SUCTIONED SMALL AMOUNTS OF THIN PALE-YELLOW SECRETIONS. ALARMS ARE ON AND AUDIBLE. WILL CONTINUE TO MONITOR THROUGHOUT SHIFT.
[2019-10-22] MEDS: OMEPRAZOLE 40MG GT SCH (05:40)
[2019-10-22] MEDS: POLYVINYL ALCOHOL OPHT DROPS 15 ML BOTTLE EACHEYE SCH ×2 (05:40→18:36)
[2019-10-22] MEDS: VITAL AF 1.2 1,000 ML LIQUID GT PRN (06:00)
[2019-10-22 08:08] VITALS: BP 98/59
[2019-10-22] MEDS: ASPIRIN 81 MG TAB.CHEW GT SCH (08:13)
[2019-10-22] MEDS: AMIODARONE HCL 200 MG TABLET GT SCH (08:16)
[2019-10-22] MEDS: levETIRAcetam 500 MG/5 ML LIQUID UDC GT SCH ×2 (08:17→21:00)
[2019-10-22] MEDS: METOPROLOL TARTRATE 50 MG TABLET GT SCH ×2 (08:18→21:00)
[2019-10-22] MEDS: PHENOBARBITAL 30 MG/7.5 ML LIQUID UDC GT SCH ×2 (08:19→21:00)
[2019-10-22] MEDS: DIAZEPAM 5 MG TABLET GT SCH ×2 (08:19→21:01)
[2019-10-22] MEDS: ASCORBIC ACID 500 MG TABLET PO SCH ×2 (08:19→21:01)
[2019-10-22] MEDS: COD LIVER OIL/ZINC OXIDE OINT 113 GM TUBE TP SCH ×2 (09:00→21:01)
[2019-10-22] MEDS: HYDROGEN PEROXIDE 3% 118 ML BOTTLE TOP SCH ×2 (09:55→21:27)
[2019-10-22 20:33] VITALS: BP 136/44
[2019-10-22] MEDS: MAGNESIUM OXIDE 400 MG TABLET GT SCH (21:00)
[2019-10-22] MEDS: MULTIVIT, IRON, MIN NO. 8, FA TABLET GT SCH (21:01)
[2019-10-23] MEDS: VITAL AF 1.2 1,000 ML LIQUID GT PRN (03:49)
[2019-10-23] MEDS: OMEPRAZOLE 40MG GT SCH (05:39)
[2019-10-23] MEDS: POLYVINYL ALCOHOL OPHT DROPS 15 ML BOTTLE EACHEYE SCH ×2 (05:39→17:28)
[2019-10-23 08:05] VITALS: BP 110/60
[2019-10-23] MEDS: ASPIRIN 81 MG TAB.CHEW GT SCH (08:25)
[2019-10-23] MEDS: METOPROLOL TARTRATE 50 MG TABLET GT SCH ×2 (08:28→21:44)
[2019-10-23] MEDS: AMIODARONE HCL 200 MG TABLET GT SCH (08:28)
[2019-10-23] MEDS: levETIRAcetam 500 MG/5 ML LIQUID UDC GT SCH ×2 (08:30→20:34)
[2019-10-23] MEDS: ASCORBIC ACID 500 MG TABLET PO SCH ×2 (08:31→20:35)
[2019-10-23] MEDS: COD LIVER OIL/ZINC OXIDE OINT 113 GM TUBE TP SCH ×2 (08:38→20:35)
[2019-10-23] MEDS: PHENOBARBITAL 30 MG/7.5 ML LIQUID UDC GT SCH ×2 (08:38→20:34)
[2019-10-23] MEDS: DIAZEPAM 5 MG TABLET GT SCH ×2 (08:38→20:35)
[2019-10-23] MEDS: HYDROGEN PEROXIDE 3% 118 ML BOTTLE TOP SCH ×2 (09:00→21:56)
--- NOTE | 2019-10-23 19:13 | NUR ---
This SW spoke with patient's father Chaz [phone] and informed him that per CDC and [facility] decision to minimize the risk of subacute residents becoming sick with the COVID-19 virus, visitation to [facility] will be suspended, effective immediately, and until further notice. Chaz expressed understanding.
[2019-10-23] MEDS: MAGNESIUM OXIDE 400 MG TABLET GT SCH (20:34)
[2019-10-23] MEDS: MULTIVIT, IRON, MIN NO. 8, FA TABLET GT SCH (20:35)
[2019-10-23 22:06] VITALS: BP 115/63
[2019-10-24] MEDS: VITAL AF 1.2 1,000 ML LIQUID GT PRN (01:14)
[2019-10-24] MEDS: POLYVINYL ALCOHOL OPHT DROPS 15 ML BOTTLE EACHEYE SCH ×2 (05:17→17:58)
[2019-10-24] MEDS: OMEPRAZOLE 40MG GT SCH (05:17)
--- NOTE | 2019-10-24 08:00 | NUR ---
Pt is afebrile temp 98.2,no changes on condition,no respiratory distress.
[2019-10-24 08:07] VITALS: BP 113/59
[2019-10-24] MEDS: ASPIRIN 81 MG TAB.CHEW GT SCH (09:06)
[2019-10-24] MEDS: AMIODARONE HCL 200 MG TABLET GT SCH (09:06)
[2019-10-24] MEDS: PHENOBARBITAL 30 MG/7.5 ML LIQUID UDC GT SCH ×2 (09:06→21:34)
[2019-10-24] MEDS: levETIRAcetam 500 MG/5 ML LIQUID UDC GT SCH ×2 (09:06→21:33)
[2019-10-24] MEDS: DIAZEPAM 5 MG TABLET GT SCH ×2 (09:06→21:34)
[2019-10-24] MEDS: ASCORBIC ACID 500 MG TABLET PO SCH ×2 (09:07→21:34)
[2019-10-24] MEDS: COD LIVER OIL/ZINC OXIDE OINT 113 GM TUBE TP SCH ×2 (09:07→21:35)
[2019-10-24] MEDS: METOPROLOL TARTRATE 50 MG TABLET GT SCH ×2 (09:07→21:34)
[2019-10-24] MEDS: HYDROGEN PEROXIDE 3% 118 ML BOTTLE TOP SCH ×2 (09:38→21:00)
[2019-10-24] MEDS: MULTIVIT, IRON, MIN NO. 8, FA TABLET GT SCH (21:34)
[2019-10-24] MEDS: MAGNESIUM OXIDE 400 MG TABLET GT SCH (21:34)
[2019-10-24 22:11] VITALS: BP 138/77
--- NOTE | 2019-10-25 02:49 | NUR ---
patient is afebrile, temperature is 98.5 Fahrenheit, trach is intact and patent, suctioned with moderate pale yellow secretions, 02 sat is 98% on 28% fi02, no signs of any respiratory distress noted, kept clean and comfortable, will continue monitor.
[2019-10-25] MEDS: POLYVINYL ALCOHOL OPHT DROPS 15 ML BOTTLE EACHEYE SCH ×2 (05:00→17:49)
[2019-10-25] MEDS: OMEPRAZOLE 40MG GT SCH (05:00)
[2019-10-25] MEDS: VITAL AF 1.2 1,000 ML LIQUID GT PRN (05:00)
[2019-10-25] MEDS: ASPIRIN 81 MG TAB.CHEW GT SCH (08:23)
[2019-10-25] MEDS: levETIRAcetam 500 MG/5 ML LIQUID UDC GT SCH ×2 (08:26→20:29)
[2019-10-25] MEDS: AMIODARONE HCL 200 MG TABLET GT SCH (08:26)
[2019-10-25] MEDS: METOPROLOL TARTRATE 50 MG TABLET GT SCH (08:27)
[2019-10-25] MEDS: COD LIVER OIL/ZINC OXIDE OINT 113 GM TUBE TP SCH ×2 (08:28→20:34)
[2019-10-25] MEDS: ASCORBIC ACID 500 MG TABLET PO SCH ×2 (08:28→20:34)
[2019-10-25] MEDS: DIAZEPAM 5 MG TABLET GT SCH ×2 (08:28→20:34)
[2019-10-25] MEDS: PHENOBARBITAL 30 MG/7.5 ML LIQUID UDC GT SCH ×2 (08:28→20:34)
[2019-10-25 08:30] VITALS: BP 95/61
[2019-10-25] MEDS: HYDROGEN PEROXIDE 3% 118 ML BOTTLE TOP SCH ×2 (09:14→21:51)
--- NOTE | 2019-10-25 18:33 | NUR ---
Pt is afebrile temp 98,no respiratory distress noted ,no changes of condition noted,enteral feeding tolerated well,no gastric residual noted.
[2019-10-25] MEDS: MAGNESIUM OXIDE 400 MG TABLET GT SCH (20:33)
[2019-10-25] MEDS: MULTIVIT, IRON, MIN NO. 8, FA TABLET GT SCH (20:34)
[2019-10-25] MEDS ORDERED: METOPROLOL TARTRATE 25 MG TABLET GT SCH (21:00)
--- NOTE | 2019-10-25 22:00 | NUR ---
Seen order from Dr. Tripathi to decrease Metoprolol to 12.5 mg via gt every 12 hours, hold for SBP less than 100 and DBP less than 60, noted and carried out.
--- NOTE | 2019-10-25 22:33 | NUR ---
Afebrile, temperature is 98.4 Fahrenheit, trach is intact and patent, 02 sat is 100% on 28% fi02, no respiratory distress noted, kept clean and comfortable.
[2019-10-25 23:00] VITALS: BP 130/65
[2019-10-26] MEDS: OMEPRAZOLE 40MG GT SCH (05:10)
[2019-10-26] MEDS: POLYVINYL ALCOHOL OPHT DROPS 15 ML BOTTLE EACHEYE SCH ×2 (05:10→18:15)
[2019-10-26 08:30] VITALS: BP 123/63
[2019-10-26] MEDS: ASCORBIC ACID 500 MG TABLET PO SCH ×2 (08:52→21:13)
[2019-10-26] MEDS: DIAZEPAM 5 MG TABLET GT SCH ×2 (08:52→21:12)
[2019-10-26] MEDS: levETIRAcetam 500 MG/5 ML LIQUID UDC GT SCH ×2 (08:52→21:10)
[2019-10-26] MEDS: ASPIRIN 81 MG TAB.CHEW GT SCH (08:52)
[2019-10-26] MEDS: AMIODARONE HCL 200 MG TABLET GT SCH (08:52)
[2019-10-26] MEDS: COD LIVER OIL/ZINC OXIDE OINT 113 GM TUBE TP SCH ×2 (08:52→21:14)
[2019-10-26] MEDS: PHENOBARBITAL 30 MG/7.5 ML LIQUID UDC GT SCH ×2 (08:52→21:12)
[2019-10-26] MEDS: HYDROGEN PEROXIDE 3% 118 ML BOTTLE TOP SCH ×2 (09:00→21:56)
--- NOTE | 2019-10-26 14:42 | NUR ---
Patient stable, no acute respiratory distress noted, repositioned q2hrs for comfort.
[2019-10-26] MEDS: VITAL AF 1.2 1,000 ML LIQUID GT PRN (18:18)
[2019-10-26 20:37] VITALS: BP 137/73
[2019-10-26] MEDS: METOPROLOL TARTRATE 25 MG TABLET GT SCH (21:12)
[2019-10-26] MEDS: MAGNESIUM OXIDE 400 MG TABLET GT SCH (21:12)
[2019-10-26] MEDS: MULTIVIT, IRON, MIN NO. 8, FA TABLET GT SCH (21:12)
--- NOTE | 2019-10-26 21:59 | NUR ---
TRACHED RESIDENT WAS RECEIVED ON HT50 VENT WITH ORDERED SETTINGS. NO SOB NOTED AT THIS TIME. SHE IS TRACHED WITH A SHILEY 8 DCT. AIRWAY IS PATENT AND SECURED @ [facility]. SPRAY GUN STRIPER USED FOR CUFF ASSESSMENT/INFLATION. ALARMS ARE ON AND AUDIBLE. SUCTIONED SMALL AMOUNTS OF THIN PALE-YELLOW SECRETIONS. WILL CONTINUE TO MONITOR THROUGHOUT SHIFT.
--- NOTE | 2019-10-26 22:01 | NUR ---
Temperature is 98.1, no SOB, no signs of any respiratory distress noted, 02 sat 100%. Patient is stable, turned and repositioned, kept clean and comfortable.
[2019-10-27] MEDS: OMEPRAZOLE 40MG GT SCH (05:34)
[2019-10-27] MEDS: POLYVINYL ALCOHOL OPHT DROPS 15 ML BOTTLE EACHEYE SCH ×2 (05:34→18:12)
--- NOTE | 2019-10-27 07:40 | NUR ---
PT REC'D ON HT-50 VENT TOLERATING CURRENT VENT SETTINGS WELL, NO DISTRESS NOTED GIVEN IN AM REPORT. PT VENT'D VIA TRACHEOSTOMY, TUBE IN PLACE PATENT AND SECURE WITH TRACH TIE. SXN'ING NEEDED. VENT ALARMS AUDIBLE, CHECKED AND RESET. BVM AND BACK-UP TRACH AT BEDSIDE.
[2019-10-27] MEDS: HYDROGEN PEROXIDE 3% 118 ML BOTTLE TOP SCH ×2 (08:25→21:35)
[2019-10-27] MEDS: METOPROLOL TARTRATE 25 MG TABLET GT SCH ×2 (09:00→21:50)
[2019-10-27] MEDS: AMIODARONE HCL 200 MG TABLET GT SCH (09:09)
[2019-10-27] MEDS: ASPIRIN 81 MG TAB.CHEW GT SCH (09:09)
[2019-10-27] MEDS: levETIRAcetam 500 MG/5 ML LIQUID UDC GT SCH ×2 (09:10→21:50)
[2019-10-27] MEDS: PHENOBARBITAL 30 MG/7.5 ML LIQUID UDC GT SCH ×2 (09:10→21:50)
[2019-10-27] MEDS: DIAZEPAM 5 MG TABLET GT SCH ×2 (09:11→21:50)
[2019-10-27] MEDS: ASCORBIC ACID 500 MG TABLET PO SCH ×2 (09:11→21:51)
[2019-10-27] MEDS: COD LIVER OIL/ZINC OXIDE OINT 113 GM TUBE TP SCH ×2 (09:11→21:51)
--- NOTE | 2019-10-27 18:00 | NUR ---
No acute respiratory distress ,no increase secretions,afebrile temperature 98.5.
[2019-10-27 20:00] VITALS: BP 114/71
[2019-10-27] MEDS: MULTIVIT, IRON, MIN NO. 8, FA TABLET GT SCH (21:50)
[2019-10-27] MEDS: MAGNESIUM OXIDE 400 MG TABLET GT SCH (21:50)
[2019-10-28] MEDS: OMEPRAZOLE 40MG GT SCH (05:38)
[2019-10-28] MEDS: POLYVINYL ALCOHOL OPHT DROPS 15 ML BOTTLE EACHEYE SCH ×2 (05:38→18:22)
[2019-10-28] MEDS: METOPROLOL TARTRATE 25 MG TABLET GT SCH ×2 (09:00→21:46)
[2019-10-28] MEDS: ASPIRIN 81 MG TAB.CHEW GT SCH (09:05)
[2019-10-28] MEDS: AMIODARONE HCL 200 MG TABLET GT SCH (09:07)
[2019-10-28] MEDS: levETIRAcetam 500 MG/5 ML LIQUID UDC GT SCH ×2 (09:07→21:45)
[2019-10-28] MEDS: ASCORBIC ACID 500 MG TABLET PO SCH ×2 (09:08→21:46)
[2019-10-28] MEDS: DIAZEPAM 5 MG TABLET GT SCH ×2 (09:08→21:46)
[2019-10-28] MEDS: PHENOBARBITAL 30 MG/7.5 ML LIQUID UDC GT SCH ×2 (09:08→21:46)
[2019-10-28] MEDS: COD LIVER OIL/ZINC OXIDE OINT 113 GM TUBE TP SCH ×2 (09:08→21:46)
[2019-10-28] MEDS: HYDROGEN PEROXIDE 3% 118 ML BOTTLE TOP SCH ×2 (09:30→21:00)
[2019-10-28] MEDS: VITAL AF 1.2 1,000 ML LIQUID GT PRN (11:39)
[2019-10-28 11:56] VITALS: BP 94/59
--- NOTE | 2019-10-28 15:12 | NUR ---
New OT orders carried out,RNA aware.
--- NOTE | 2019-10-28 18:00 | NUR ---
No changes on condition ,no respiratory distress noted,afebrile ,on close observation.
[2019-10-28 20:00] VITALS: BP 101/71
[2019-10-28] MEDS: MULTIVIT, IRON, MIN NO. 8, FA TABLET GT SCH (21:46)
[2019-10-28] MEDS: MAGNESIUM OXIDE 400 MG TABLET GT SCH (21:46)
[2019-10-29] MEDS: POLYVINYL ALCOHOL OPHT DROPS 15 ML BOTTLE EACHEYE SCH ×2 (05:52→18:01)
[2019-10-29] MEDS: OMEPRAZOLE 40MG GT SCH (05:52)
[2019-10-29] MEDS: ASPIRIN 81 MG TAB.CHEW GT SCH (08:15)
[2019-10-29] MEDS: AMIODARONE HCL 200 MG TABLET GT SCH (08:17)
[2019-10-29] MEDS: levETIRAcetam 500 MG/5 ML LIQUID UDC GT SCH ×2 (08:18→20:33)
[2019-10-29] MEDS: METOPROLOL TARTRATE 25 MG TABLET GT SCH ×2 (08:18→21:00)
[2019-10-29] MEDS: DIAZEPAM 5 MG TABLET GT SCH ×2 (08:19→20:33)
[2019-10-29] MEDS: ASCORBIC ACID 500 MG TABLET PO SCH ×2 (08:19→20:33)
[2019-10-29] MEDS: PHENOBARBITAL 30 MG/7.5 ML LIQUID UDC GT SCH ×2 (08:19→20:33)
[2019-10-29 08:30] VITALS: BP 111/58
[2019-10-29] MEDS: HYDROGEN PEROXIDE 3% 118 ML BOTTLE TOP SCH ×2 (09:00→21:00)
[2019-10-29] MEDS: COD LIVER OIL/ZINC OXIDE OINT 113 GM TUBE TP SCH ×2 (09:00→20:33)
[2019-10-29] MEDS: VITAL AF 1.2 1,000 ML LIQUID GT PRN (12:55)
--- NOTE | 2019-10-29 18:58 | NUR ---
SEEN BY DR. TOLBERT AND WITH NNO.
[2019-10-29 20:00] VITALS: BP 183/91
[2019-10-29] MEDS: MAGNESIUM OXIDE 400 MG TABLET GT SCH (20:33)
[2019-10-29] MEDS: MULTIVIT, IRON, MIN NO. 8, FA TABLET GT SCH (20:33)
[2019-10-29 21:30] VITALS: BP 95/60
[2019-10-30] MEDS: POLYVINYL ALCOHOL OPHT DROPS 15 ML BOTTLE EACHEYE SCH ×2 (05:50→18:29)
[2019-10-30] MEDS: OMEPRAZOLE 40MG GT SCH (05:50)
[2019-10-30 08:05] VITALS: BP 119/71
[2019-10-30] MEDS: HYDROGEN PEROXIDE 3% 118 ML BOTTLE TOP SCH ×2 (09:00→21:00)
[2019-10-30] MEDS: ASPIRIN 81 MG TAB.CHEW GT SCH (09:04)
[2019-10-30] MEDS: AMIODARONE HCL 200 MG TABLET GT SCH (09:04)
[2019-10-30] MEDS: levETIRAcetam 500 MG/5 ML LIQUID UDC GT SCH ×2 (09:05→20:41)
[2019-10-30] MEDS: COD LIVER OIL/ZINC OXIDE OINT 113 GM TUBE TP SCH ×2 (09:05→20:41)
[2019-10-30] MEDS: METOPROLOL TARTRATE 25 MG TABLET GT SCH ×2 (09:05→20:41)
[2019-10-30] MEDS: ASCORBIC ACID 500 MG TABLET PO SCH ×2 (09:05→20:41)
[2019-10-30] MEDS: DIAZEPAM 5 MG TABLET GT SCH ×2 (09:05→20:41)
[2019-10-30] MEDS: PHENOBARBITAL 30 MG/7.5 ML LIQUID UDC GT SCH ×2 (09:05→20:41)
[2019-10-30] MEDS: VITAL AF 1.2 1,000 ML LIQUID GT PRN (13:19)
[2019-10-30 20:00] VITALS: BP 140/84
[2019-10-30] MEDS: MAGNESIUM OXIDE 400 MG TABLET GT SCH (20:41)
[2019-10-30] MEDS: MULTIVIT, IRON, MIN NO. 8, FA TABLET GT SCH (20:41)
[2019-10-31] MEDS: POLYVINYL ALCOHOL OPHT DROPS 15 ML BOTTLE EACHEYE SCH ×2 (05:29→17:58)
[2019-10-31] MEDS: OMEPRAZOLE 40MG GT SCH (05:29)
[2019-10-31 08:03] VITALS: BP 118/68
[2019-10-31] MEDS: HYDROGEN PEROXIDE 3% 118 ML BOTTLE TOP SCH ×2 (09:00→21:17)
[2019-10-31] MEDS: ASPIRIN 81 MG TAB.CHEW GT SCH (09:28)
[2019-10-31] MEDS: levETIRAcetam 500 MG/5 ML LIQUID UDC GT SCH ×2 (09:30→21:10)
[2019-10-31] MEDS: AMIODARONE HCL 200 MG TABLET GT SCH (09:30)
[2019-10-31] MEDS: DIAZEPAM 5 MG TABLET GT SCH ×2 (09:31→21:11)
[2019-10-31] MEDS: COD LIVER OIL/ZINC OXIDE OINT 113 GM TUBE TP SCH ×2 (09:31→21:11)
[2019-10-31] MEDS: ASCORBIC ACID 500 MG TABLET PO SCH ×2 (09:31→21:11)
[2019-10-31] MEDS: METOPROLOL TARTRATE 25 MG TABLET GT SCH ×2 (09:31→21:11)
[2019-10-31] MEDS: PHENOBARBITAL 30 MG/7.5 ML LIQUID UDC GT SCH ×2 (09:31→21:11)
[2019-10-31] MEDS: MULTIVIT, IRON, MIN NO. 8, FA TABLET GT SCH (21:11)
[2019-10-31] MEDS: MAGNESIUM OXIDE 400 MG TABLET GT SCH (21:11)
--- NOTE | 2019-11-01 04:07 | NUR ---
PT RECEIVED ON GIVEN SETTINGS AND KATALINA WELL. PRN SXN PROVIDED. ALARMS ON AND AUDIBLE. AMBU BAG AND BACK UP TRACH AT BEDSIDE. TRACH TUBE IS IN PLACE AND SECURED.
[2019-11-01] MEDS: POLYVINYL ALCOHOL OPHT DROPS 15 ML BOTTLE EACHEYE SCH ×2 (06:22→17:59)
[2019-11-01] MEDS: OMEPRAZOLE 40MG GT SCH (06:22)
--- NOTE | 2019-11-01 07:20 | NUR ---
PT REC'D ON HT-50 VENT TOLERATING CURRENT SETTINGS WELL, NO DISTRESS NOTED GIVEN IN AM REPORT. PT VENT'D VIA TRACHEOSTOMY, TUBE IN PLACE PATENT AND SECURE WITH TRACH TIE. SXN'ING NEEDED. VENT ALARMS AUDIBLE, CHECKED AND RESET. BVM AND BACK-UP TRACH AT BEDSIDE.
[2019-11-01 08:00] VITALS: BP 106/75
[2019-11-01] MEDS: ASPIRIN 81 MG TAB.CHEW GT SCH (08:40)
[2019-11-01] MEDS: levETIRAcetam 500 MG/5 ML LIQUID UDC GT SCH ×2 (08:41→20:26)
[2019-11-01] MEDS: PHENOBARBITAL 30 MG/7.5 ML LIQUID UDC GT SCH ×2 (08:41→20:27)
[2019-11-01] MEDS: METOPROLOL TARTRATE 25 MG TABLET GT SCH ×2 (08:41→20:27)
[2019-11-01] MEDS: AMIODARONE HCL 200 MG TABLET GT SCH (08:41)
[2019-11-01] MEDS: COD LIVER OIL/ZINC OXIDE OINT 113 GM TUBE TP SCH ×2 (08:42→20:28)
[2019-11-01] MEDS: ASCORBIC ACID 500 MG TABLET PO SCH ×2 (08:42→20:27)
[2019-11-01] MEDS: DIAZEPAM 5 MG TABLET GT SCH ×2 (08:42→20:27)
[2019-11-01] MEDS: HYDROGEN PEROXIDE 3% 118 ML BOTTLE TOP SCH ×2 (09:58→21:09)
[2019-11-01] MEDS: MAGNESIUM OXIDE 400 MG TABLET GT SCH (20:27)
[2019-11-01] MEDS: MULTIVIT, IRON, MIN NO. 8, FA TABLET GT SCH (20:27)
[2019-11-01 21:05] VITALS: BP 104/76
[2019-11-02] MEDS: OMEPRAZOLE 40MG GT SCH (05:33)
[2019-11-02] MEDS: POLYVINYL ALCOHOL OPHT DROPS 15 ML BOTTLE EACHEYE SCH ×2 (05:33→18:13)
[2019-11-02] MEDS: AMIODARONE HCL 200 MG TABLET GT SCH (08:24)
[2019-11-02] MEDS: PHENOBARBITAL 30 MG/7.5 ML LIQUID UDC GT SCH ×2 (08:24→20:45)
[2019-11-02] MEDS: levETIRAcetam 500 MG/5 ML LIQUID UDC GT SCH ×2 (08:24→20:44)
[2019-11-02] MEDS: ASPIRIN 81 MG TAB.CHEW GT SCH (08:24)
[2019-11-02] MEDS: DIAZEPAM 5 MG TABLET GT SCH ×2 (08:24→20:46)
[2019-11-02] MEDS: ASCORBIC ACID 500 MG TABLET PO SCH ×2 (08:24→20:46)
[2019-11-02] MEDS: METOPROLOL TARTRATE 25 MG TABLET GT SCH ×2 (08:24→20:45)
[2019-11-02] MEDS: COD LIVER OIL/ZINC OXIDE OINT 113 GM TUBE TP SCH ×2 (08:25→20:46)
[2019-11-02 08:30] VITALS: BP 119/76
[2019-11-02] MEDS: HYDROGEN PEROXIDE 3% 118 ML BOTTLE TOP SCH ×2 (09:30→21:00)
[2019-11-02] MEDS: VITAL AF 1.2 1,000 ML LIQUID GT PRN (18:13)
[2019-11-02] MEDS: MAGNESIUM OXIDE 400 MG TABLET GT SCH (20:45)
[2019-11-02] MEDS: MULTIVIT, IRON, MIN NO. 8, FA TABLET GT SCH (20:45)
[2019-11-02 21:00] VITALS: BP 118/75
[2019-11-03] MEDS: POLYVINYL ALCOHOL OPHT DROPS 15 ML BOTTLE EACHEYE SCH ×2 (05:12→17:11)
[2019-11-03] MEDS: OMEPRAZOLE 40MG GT SCH (05:12)
[2019-11-03] MEDS: ASPIRIN 81 MG TAB.CHEW GT SCH (08:14)
[2019-11-03] MEDS: levETIRAcetam 500 MG/5 ML LIQUID UDC GT SCH ×2 (08:17→20:32)
[2019-11-03] MEDS: METOPROLOL TARTRATE 25 MG TABLET GT SCH ×2 (08:18→20:33)
[2019-11-03] MEDS: AMIODARONE HCL 200 MG TABLET GT SCH (08:19)
[2019-11-03] MEDS: DIAZEPAM 5 MG TABLET GT SCH ×2 (08:19→20:33)
[2019-11-03] MEDS: ASCORBIC ACID 500 MG TABLET PO SCH ×2 (08:19→20:33)
[2019-11-03] MEDS: PHENOBARBITAL 30 MG/7.5 ML LIQUID UDC GT SCH ×2 (08:19→20:33)
[2019-11-03] MEDS: COD LIVER OIL/ZINC OXIDE OINT 113 GM TUBE TP SCH ×2 (09:00→20:34)
[2019-11-03] MEDS: HYDROGEN PEROXIDE 3% 118 ML BOTTLE TOP SCH ×2 (09:00→20:59)
[2019-11-03 09:26] VITALS: BP 108/61
--- NOTE | 2019-11-03 14:52 | NUR ---
Pharmacy Update from Today's 11/03/19 IDT Meeting VS: Temp 98.8 BP 108/61 HR 54 LABS: (from 10/13/19) Wbc 3.4 H/H 9.1/26.2 Plt 202 Na 144 K 4.4 Cl 108 CO2 29 BUN/Scr 18/0.4 BS 96 Ca 9.4 MEDICATION USE REVIEWED: > Pt not on any anti-psych medications > Pt continues on Keppra 2000mg q12hr since 12/02/18; CrCl >100 ml/min, renal function ok for current dose. No reported seizures > Pt on Phenobarbital 129.6mg q12hr since 07/23/19. Last level 09/08/19 was 33 (15-39), within therapeutic range > Pt also on Valium 5mg q12hr since 08/05 for muscle twitching/residual seizure activity per neurology. PRN also added > Pt on Magnesium Oxide 400mg daily since 08/03. Last Mg 2.0 > Pt on Lopressor 12.5mg q12hr since 10/25/19, last BP wnl. > Pt on Omeprazole 40mg daily since 08/02/19, ok dose per renal function PRN MED USAGE: (Sep) Tylenol PRN pain/temp used x0 Zofran PRN used x0 Valium PRN musc twitching used x0 NEW ORDERS NOTED: > Amiodarone 200mg changed to 100mg daily 10/21 > Lopressor 50mg q12hr adjusted to 12.5mg q12hr 10/24 Patient was reviewed and discussed in depth per IDT team with no medication issues at this time. Reported recent medication adjustments with no further recommendations at this time. Pt remains stable on current regimen. Will continue to follow
--- NOTE | 2019-11-03 15:49 | NUR ---
INTERDISCIPLINARY PLAN OF CARE CONFERENCE was held today. Patient's family is very minimally involved in patient's care and do not attend IDT meetings. Dr. Lora and the Interdisciplinary Team reviewed the current plan of care in detail. RN reported on patient's medical condition. See RN IDT conference notes. No major changes in condition were reported. Pharmacy discussed adjustments in some of patient's medications. See all disciplines IDT notes and physician's progress notes for additional details.
[2019-11-03] MEDS: VITAL AF 1.2 1,000 ML LIQUID GT PRN (17:11)
[2019-11-03 20:11] VITALS: BP 117/69
[2019-11-03] MEDS: MAGNESIUM OXIDE 400 MG TABLET GT SCH (20:33)
[2019-11-03] MEDS: MULTIVIT, IRON, MIN NO. 8, FA TABLET GT SCH (20:33)
[2019-11-04] MEDS: OMEPRAZOLE 40MG GT SCH (05:08)
[2019-11-04] MEDS: POLYVINYL ALCOHOL OPHT DROPS 15 ML BOTTLE EACHEYE SCH ×2 (05:08→18:09)
[2019-11-04 08:00] VITALS: BP 119/67
[2019-11-04] MEDS: HYDROGEN PEROXIDE 3% 118 ML BOTTLE TOP SCH ×2 (08:00→21:19)
[2019-11-04] MEDS: ASPIRIN 81 MG TAB.CHEW GT SCH (09:19)
[2019-11-04] MEDS: AMIODARONE HCL 200 MG TABLET GT SCH (09:43)
[2019-11-04] MEDS: levETIRAcetam 500 MG/5 ML LIQUID UDC GT SCH ×2 (09:44→20:48)
[2019-11-04] MEDS: METOPROLOL TARTRATE 25 MG TABLET GT SCH ×2 (09:46→20:52)
[2019-11-04] MEDS: COD LIVER OIL/ZINC OXIDE OINT 113 GM TUBE TP SCH ×2 (09:46→20:54)
[2019-11-04] MEDS: ASCORBIC ACID 500 MG TABLET PO SCH ×2 (09:46→20:54)
[2019-11-04] MEDS: DIAZEPAM 5 MG TABLET GT SCH ×2 (09:47→20:54)
[2019-11-04] MEDS: PHENOBARBITAL 30 MG/7.5 ML LIQUID UDC GT SCH ×2 (09:47→20:53)
--- NOTE | 2019-11-04 19:30 | NUR ---
New orders noted from Dr Flnyn for cranberry juice for uti prophilaxis.
[2019-11-04] MEDS: MAGNESIUM OXIDE 400 MG TABLET GT SCH (20:53)
[2019-11-04] MEDS: MULTIVIT, IRON, MIN NO. 8, FA TABLET GT SCH (20:54)
[2019-11-04] MEDS: VITAL AF 1.2 1,000 ML LIQUID GT PRN (21:00)
[2019-11-05] MEDS: OMEPRAZOLE 40MG GT SCH (05:21)
[2019-11-05] MEDS: POLYVINYL ALCOHOL OPHT DROPS 15 ML BOTTLE EACHEYE SCH ×2 (05:21→17:27)
[2019-11-05 08:00] VITALS: BP 130/70
[2019-11-05] MEDS: ASPIRIN 81 MG TAB.CHEW GT SCH (08:30)
[2019-11-05] MEDS: AMIODARONE HCL 200 MG TABLET GT SCH (08:31)
[2019-11-05] MEDS: levETIRAcetam 500 MG/5 ML LIQUID UDC GT SCH ×2 (08:34→21:15)
[2019-11-05] MEDS: METOPROLOL TARTRATE 25 MG TABLET GT SCH ×2 (08:34→21:16)
[2019-11-05] MEDS: ASCORBIC ACID 500 MG TABLET PO SCH ×2 (08:35→21:17)
[2019-11-05] MEDS: PHENOBARBITAL 30 MG/7.5 ML LIQUID UDC GT SCH ×2 (08:35→21:16)
[2019-11-05] MEDS: DIAZEPAM 5 MG TABLET GT SCH ×2 (08:35→21:16)
[2019-11-05] MEDS: COD LIVER OIL/ZINC OXIDE OINT 113 GM TUBE TP SCH ×2 (08:35→21:17)
[2019-11-05] MEDS: HYDROGEN PEROXIDE 3% 118 ML BOTTLE TOP SCH ×2 (09:00→20:55)
[2019-11-05] MEDS: VITAL AF 1.2 1,000 ML LIQUID GT PRN (17:27)
[2019-11-05 20:35] VITALS: BP 140/68
[2019-11-05] MEDS: MAGNESIUM OXIDE 400 MG TABLET GT SCH (21:16)
[2019-11-05] MEDS: MULTIVIT, IRON, MIN NO. 8, FA TABLET GT SCH (21:16)
[2019-11-06] MEDS: OMEPRAZOLE 40MG GT SCH (05:44)
[2019-11-06] MEDS: POLYVINYL ALCOHOL OPHT DROPS 15 ML BOTTLE EACHEYE SCH ×2 (05:44→17:20)
[2019-11-06 08:05] VITALS: BP 131/83
[2019-11-06] MEDS: ASPIRIN 81 MG TAB.CHEW GT SCH (08:13)
[2019-11-06] MEDS: AMIODARONE HCL 200 MG TABLET GT SCH (08:14)
[2019-11-06] MEDS: levETIRAcetam 500 MG/5 ML LIQUID UDC GT SCH ×2 (08:14→21:28)
[2019-11-06] MEDS: PHENOBARBITAL 30 MG/7.5 ML LIQUID UDC GT SCH ×2 (08:16→21:58)
[2019-11-06] MEDS: METOPROLOL TARTRATE 25 MG TABLET GT SCH ×2 (08:16→21:29)
[2019-11-06] MEDS: ASCORBIC ACID 500 MG TABLET PO SCH ×2 (08:16→21:31)
[2019-11-06] MEDS: COD LIVER OIL/ZINC OXIDE OINT 113 GM TUBE TP SCH ×2 (08:16→21:31)
[2019-11-06] MEDS: DIAZEPAM 5 MG TABLET GT SCH ×2 (08:16→21:58)
[2019-11-06] MEDS: HYDROGEN PEROXIDE 3% 118 ML BOTTLE TOP SCH ×2 (09:00→21:01)
[2019-11-06 20:30] VITALS: BP 135/69
[2019-11-06] MEDS: MULTIVIT, IRON, MIN NO. 8, FA TABLET GT SCH (21:29)
[2019-11-06] MEDS: MAGNESIUM OXIDE 400 MG TABLET GT SCH (21:30)
--- NOTE | 2019-11-07 04:21 | NUR ---
RESIDENT RECEIVED ON HT-50 VENTILATOR WITH ORDERED SETTINGS. NO SIGNS OF RESPIRATORY DISTRESS NOTED AT THIS TIME. SHE IS TRACHED WITH A SHILEY 8 DCT. AIRWAY IS PATENT/SECURED @ [facility]. LABORER TREE TAPPING USED FOR CUFF ASSESSMENT/INFLATION. ALARMS ARE ON AND AUDIBLE. SUCTIONED SMALL AMOUNTS OF THIN PALE-YELLOW SECRETIONS. WILL CONTINUE TO MONITOR.
[2019-11-07] MEDS: OMEPRAZOLE 40MG GT SCH (05:20)
[2019-11-07] MEDS: POLYVINYL ALCOHOL OPHT DROPS 15 ML BOTTLE EACHEYE SCH ×2 (05:20→17:13)
[2019-11-07] MEDS: levETIRAcetam 500 MG/5 ML LIQUID UDC GT SCH ×2 (08:26→21:02)
[2019-11-07] MEDS: AMIODARONE HCL 200 MG TABLET GT SCH (08:26)
[2019-11-07] MEDS: ASPIRIN 81 MG TAB.CHEW GT SCH (08:26)
[2019-11-07] MEDS: COD LIVER OIL/ZINC OXIDE OINT 113 GM TUBE TP SCH ×2 (08:27→21:04)
[2019-11-07] MEDS: METOPROLOL TARTRATE 25 MG TABLET GT SCH ×2 (08:27→21:03)
[2019-11-07] MEDS: ASCORBIC ACID 500 MG TABLET PO SCH ×2 (08:27→21:04)
[2019-11-07] MEDS: DIAZEPAM 5 MG TABLET GT SCH ×2 (08:27→21:01)
[2019-11-07] MEDS: PHENOBARBITAL 30 MG/7.5 ML LIQUID UDC GT SCH ×2 (08:27→21:01)
[2019-11-07] MEDS: HYDROGEN PEROXIDE 3% 118 ML BOTTLE TOP SCH ×2 (09:00→21:04)
[2019-11-07 10:30] VITALS: BP 132/82
[2019-11-07] MEDS: VITAL AF 1.2 1,000 ML LIQUID GT PRN (17:14)
[2019-11-07 20:40] VITALS: BP 131/81
[2019-11-07] MEDS: MAGNESIUM OXIDE 400 MG TABLET GT SCH (21:03)
[2019-11-07] MEDS: MULTIVIT, IRON, MIN NO. 8, FA TABLET GT SCH (21:03)
[2019-11-08] MEDS: OMEPRAZOLE 40MG GT SCH (05:28)
[2019-11-08] MEDS: POLYVINYL ALCOHOL OPHT DROPS 15 ML BOTTLE EACHEYE SCH ×2 (05:28→17:47)
[2019-11-08 08:07] VITALS: BP 104/63
[2019-11-08] MEDS: HYDROGEN PEROXIDE 3% 118 ML BOTTLE TOP SCH ×2 (08:30→20:28)
[2019-11-08] MEDS: ASCORBIC ACID 500 MG TABLET PO SCH ×2 (08:42→21:25)
[2019-11-08] MEDS: levETIRAcetam 500 MG/5 ML LIQUID UDC GT SCH ×2 (08:42→21:23)
[2019-11-08] MEDS: ASPIRIN 81 MG TAB.CHEW GT SCH (08:42)
[2019-11-08] MEDS: DIAZEPAM 5 MG TABLET GT SCH ×2 (08:42→21:25)
[2019-11-08] MEDS: PHENOBARBITAL 30 MG/7.5 ML LIQUID UDC GT SCH ×2 (08:42→21:25)
[2019-11-08] MEDS: COD LIVER OIL/ZINC OXIDE OINT 113 GM TUBE TP SCH ×2 (08:43→21:25)
[2019-11-08] MEDS: METOPROLOL TARTRATE 25 MG TABLET GT SCH ×2 (09:44→21:25)
[2019-11-08] MEDS: AMIODARONE HCL 200 MG TABLET GT SCH (09:44)
[2019-11-08 20:13] VITALS: BP 148/81
[2019-11-08] MEDS: MAGNESIUM OXIDE 400 MG TABLET GT SCH (21:25)
[2019-11-08] MEDS: MULTIVIT, IRON, MIN NO. 8, FA TABLET GT SCH (21:25)
[2019-11-09 06:05] LABS: BASOPHILS % (AUTO) 0.6 % (0.0-2.0); EOSINOPHILS # (AUTO) 0.2 K/uL (0.0-0.7); EOSINOPHILS % (AUTO) 3.2 % (0.0-7.0); HEMOGLOBIN 12.7 g/dL (10.9-14.3); LYMPHOCYTES # (AUTO) 1.2 K/uL (20.0-40.0); LYMPHOCYTES % (AUTO) 16.5 % (20.5-51.5); MEAN CORPUSCULAR HEMOGLOBIN 30.6 uug (24.7-32.8); MEAN CORPUSCULAR HGB CONC 35 g/dL (32.3-35.6); MEAN CORPUSCULAR VOLUME 87.1 fL (75.5-95.3); MONOCYTES # (AUTO) 0.5 K/uL (2.0-10.0); MONOCYTES % (AUTO) 6.6 % (0.0-11.0); NEUTROPHILS # (AUTO) 5.5 K/uL (1.8-8.9); NEUTROPHILS % (AUTO) 73.1 % (38.5-71.5); PLATELET COUNT (AUTO) 236 K/uL (179-408); RED BLOOD CELL COUNT(AUTO) 4.14 MIL/uL (3.63-4.92); WHITE BLOOD COUNT (AUTO) 7.5 K/uL (3.8-11.8)
[2019-11-09] MEDS: POLYVINYL ALCOHOL OPHT DROPS 15 ML BOTTLE EACHEYE SCH ×2 (06:14→18:12)
[2019-11-09] MEDS: OMEPRAZOLE 40MG GT SCH (06:14)
[2019-11-09 06:20] LABS: BILIRUBIN,TOTAL 0.3 mg/dL (0.2-1.0); CREATININE 0.5 mg/dL (0.6-1.3); MAGNESIUM 1.9 mg/dL (1.8-2.4); POTASSIUM 3.9 mmol/L (3.5-5.1); TOTAL PROTEIN, SERUM 8.6 g/dL (6.4-8.2)
[2019-11-09 08:07] VITALS: BP 91/65
[2019-11-09] MEDS: METOPROLOL TARTRATE 25 MG TABLET GT SCH ×2 (09:00→20:53)
[2019-11-09] MEDS: AMIODARONE HCL 200 MG TABLET GT SCH (09:00)
[2019-11-09] MEDS: DIAZEPAM 5 MG TABLET GT SCH ×2 (09:04→20:54)
[2019-11-09] MEDS: levETIRAcetam 500 MG/5 ML LIQUID UDC GT SCH ×2 (09:04→20:53)
[2019-11-09] MEDS: PHENOBARBITAL 30 MG/7.5 ML LIQUID UDC GT SCH ×2 (09:04→20:54)
[2019-11-09] MEDS: COD LIVER OIL/ZINC OXIDE OINT 113 GM TUBE TP SCH ×2 (09:04→20:54)
[2019-11-09] MEDS: ASPIRIN 81 MG TAB.CHEW GT SCH (09:04)
[2019-11-09] MEDS: ASCORBIC ACID 500 MG TABLET PO SCH ×2 (09:04→20:54)
[2019-11-09] MEDS: HYDROGEN PEROXIDE 3% 118 ML BOTTLE TOP SCH ×2 (09:38→20:44)
--- NOTE | 2019-11-09 19:55 | NUR ---
PT RECEIVED ON CONTINUOUS VENT. TRACH IN PLACED AND SECURED WITH TRACH TIE. BACK UP TRACH AND AMBU BAG AT BEDSIDE. TRACH CARE DONE. SUCTION SMALL AMOUNT THICK WHITE SECRETIONS. VENT CHECKED, ALARMS WORKING WELL AND AUDIBLE. NO DISTRESS NOTED AT THIS TIME. WILL CONTINUE TO MONITOR.
[2019-11-09 20:33] VITALS: BP 110/66
[2019-11-09] MEDS: MAGNESIUM OXIDE 400 MG TABLET GT SCH (20:53)
[2019-11-09] MEDS: MULTIVIT, IRON, MIN NO. 8, FA TABLET GT SCH (20:53)
[2019-11-10] MEDS: POLYVINYL ALCOHOL OPHT DROPS 15 ML BOTTLE EACHEYE SCH ×2 (05:03→18:22)
[2019-11-10] MEDS: OMEPRAZOLE 40MG GT SCH (05:03)
[2019-11-10 08:06] VITALS: BP 98/57
[2019-11-10] MEDS: METOPROLOL TARTRATE 25 MG TABLET GT SCH ×2 (09:00→21:13)
[2019-11-10] MEDS: HYDROGEN PEROXIDE 3% 118 ML BOTTLE TOP SCH ×2 (09:36→21:53)
[2019-11-10] MEDS: ASPIRIN 81 MG TAB.CHEW GT SCH (09:57)
[2019-11-10] MEDS: levETIRAcetam 500 MG/5 ML LIQUID UDC GT SCH ×2 (09:58→21:12)
[2019-11-10] MEDS: PHENOBARBITAL 30 MG/7.5 ML LIQUID UDC GT SCH ×2 (09:58→21:13)
[2019-11-10] MEDS: DIAZEPAM 5 MG TABLET GT SCH ×2 (09:58→21:13)
[2019-11-10] MEDS: COD LIVER OIL/ZINC OXIDE OINT 113 GM TUBE TP SCH ×2 (09:58→21:14)
[2019-11-10] MEDS: ASCORBIC ACID 500 MG TABLET PO SCH ×2 (09:58→21:13)
[2019-11-10] MEDS: AMIODARONE HCL 200 MG TABLET GT SCH (09:58)
--- NOTE | 2019-11-10 15:30 | NUR ---
This and Subacute Disc Pad Grinder Girma Freeman called patient's father Chaz [phone] and informed him that per advisement from [facility], [facility], and CDC, visitation restrictions must continue to remain in place for all snf care facilities in order to protect the health and safety of residents and staff. Therefore [facility]acute [facility] will continue to restrict all visitations, until further notice. Chaz expressed understanding and agreement, expressed not having any concerns at this time.
[2019-11-10] MEDS: VITAL AF 1.2 1,000 ML LIQUID GT PRN (18:26)
[2019-11-10 21:01] VITALS: BP 132/72
[2019-11-10] MEDS: MAGNESIUM OXIDE 400 MG TABLET GT SCH (21:13)
[2019-11-10] MEDS: MULTIVIT, IRON, MIN NO. 8, FA TABLET GT SCH (21:13)
[2019-11-11] MEDS: POLYVINYL ALCOHOL OPHT DROPS 15 ML BOTTLE EACHEYE SCH ×2 (06:03→17:02)
[2019-11-11] MEDS: OMEPRAZOLE 40MG GT SCH (06:03)
[2019-11-11] MEDS: ASPIRIN 81 MG TAB.CHEW GT SCH (08:15)
[2019-11-11] MEDS: AMIODARONE HCL 200 MG TABLET GT SCH (08:16)
[2019-11-11] MEDS: DIAZEPAM 5 MG TABLET GT SCH ×2 (08:16→21:18)
[2019-11-11] MEDS: METOPROLOL TARTRATE 25 MG TABLET GT SCH ×2 (08:16→21:17)
[2019-11-11] MEDS: ASCORBIC ACID 500 MG TABLET PO SCH ×2 (08:16→21:18)
[2019-11-11] MEDS: PHENOBARBITAL 30 MG/7.5 ML LIQUID UDC GT SCH ×2 (08:16→21:18)
[2019-11-11] MEDS: COD LIVER OIL/ZINC OXIDE OINT 113 GM TUBE TP SCH ×2 (08:16→21:18)
[2019-11-11] MEDS: levETIRAcetam 500 MG/5 ML LIQUID UDC GT SCH ×2 (08:16→21:16)
[2019-11-11] MEDS: HYDROGEN PEROXIDE 3% 118 ML BOTTLE TOP SCH ×2 (09:51→21:36)
[2019-11-11 11:54] VITALS: BP 109/63
--- NOTE | 2019-11-11 14:00 | NUR ---
Gasoline Pump Mechanic care done by Dr Landrum.
[2019-11-11] MEDS: VITAL AF 1.2 1,000 ML LIQUID GT PRN (17:02)
[2019-11-11 20:43] VITALS: BP 139/87
[2019-11-11] MEDS: MAGNESIUM OXIDE 400 MG TABLET GT SCH (21:17)
[2019-11-11] MEDS: MULTIVIT, IRON, MIN NO. 8, FA TABLET GT SCH (21:18)
[2019-11-12] MEDS: OMEPRAZOLE 40MG GT SCH (06:06)
[2019-11-12] MEDS: POLYVINYL ALCOHOL OPHT DROPS 15 ML BOTTLE EACHEYE SCH ×2 (06:06→17:27)
[2019-11-12 08:08] VITALS: BP 115/50
[2019-11-12] MEDS: levETIRAcetam 500 MG/5 ML LIQUID UDC GT SCH ×2 (08:17→21:22)
[2019-11-12] MEDS: AMIODARONE HCL 200 MG TABLET GT SCH (08:17)
[2019-11-12] MEDS: ASPIRIN 81 MG TAB.CHEW GT SCH (08:17)
[2019-11-12] MEDS: PHENOBARBITAL 30 MG/7.5 ML LIQUID UDC GT SCH ×2 (08:18→21:24)
[2019-11-12] MEDS: ASCORBIC ACID 500 MG TABLET PO SCH ×2 (08:18→21:25)
[2019-11-12] MEDS: DIAZEPAM 5 MG TABLET GT SCH ×2 (08:18→21:25)
[2019-11-12] MEDS: COD LIVER OIL/ZINC OXIDE OINT 113 GM TUBE TP SCH ×2 (08:18→21:25)
[2019-11-12] MEDS: METOPROLOL TARTRATE 25 MG TABLET GT SCH ×2 (08:18→21:23)
[2019-11-12] MEDS: HYDROGEN PEROXIDE 3% 118 ML BOTTLE TOP SCH ×2 (10:20→20:55)
--- NOTE | 2019-11-12 18:29 | NUR ---
SEEN BY DR. TOLBERT AND WITH NEW ORDERS CARRIED OUT.
[2019-11-12 20:59] VITALS: BP 143/79
[2019-11-12] MEDS: MAGNESIUM OXIDE 400 MG TABLET GT SCH (21:23)
[2019-11-12] MEDS: MULTIVIT, IRON, MIN NO. 8, FA TABLET GT SCH (21:24)
[2019-11-13] MEDS: OMEPRAZOLE 40MG GT SCH (05:57)
[2019-11-13] MEDS: POLYVINYL ALCOHOL OPHT DROPS 15 ML BOTTLE EACHEYE SCH ×2 (05:57→17:14)
[2019-11-13] MEDS: AMIODARONE HCL 200 MG TABLET GT SCH (08:40)
[2019-11-13] MEDS: levETIRAcetam 500 MG/5 ML LIQUID UDC GT SCH ×2 (08:40→20:40)
[2019-11-13] MEDS: ASPIRIN 81 MG TAB.CHEW GT SCH (08:40)
[2019-11-13] MEDS: METOPROLOL TARTRATE 25 MG TABLET GT SCH ×2 (08:41→20:40)
[2019-11-13] MEDS: DIAZEPAM 5 MG TABLET GT SCH ×2 (08:41→20:40)
[2019-11-13] MEDS: PHENOBARBITAL 30 MG/7.5 ML LIQUID UDC GT SCH ×2 (08:41→20:40)
[2019-11-13] MEDS: ASCORBIC ACID 500 MG TABLET PO SCH ×2 (08:41→20:40)
[2019-11-13] MEDS: COD LIVER OIL/ZINC OXIDE OINT 113 GM TUBE TP SCH ×2 (08:41→20:40)
[2019-11-13] MEDS: HYDROGEN PEROXIDE 3% 118 ML BOTTLE TOP SCH ×2 (09:00→21:22)
[2019-11-13] MEDS: VITAL AF 1.2 1,000 ML LIQUID GT PRN (17:14)
[2019-11-13 20:38] VITALS: BP 143/83
[2019-11-13] MEDS: MAGNESIUM OXIDE 400 MG TABLET GT SCH (20:40)
[2019-11-13] MEDS: MULTIVIT, IRON, MIN NO. 8, FA TABLET GT SCH (20:40)
[2019-11-14] MEDS: OMEPRAZOLE 40MG GT SCH (05:18)
[2019-11-14] MEDS: POLYVINYL ALCOHOL OPHT DROPS 15 ML BOTTLE EACHEYE SCH ×2 (05:18→17:26)
[2019-11-14 08:00] VITALS: BP 128/78
[2019-11-14] MEDS: HYDROGEN PEROXIDE 3% 118 ML BOTTLE TOP SCH ×2 (08:20→19:21)
[2019-11-14] MEDS: ASPIRIN 81 MG TAB.CHEW GT SCH (08:34)
[2019-11-14] MEDS: COD LIVER OIL/ZINC OXIDE OINT 113 GM TUBE TP SCH ×2 (08:35→20:13)
[2019-11-14] MEDS: DIAZEPAM 5 MG TABLET GT SCH ×2 (08:35→20:13)
[2019-11-14] MEDS: ASCORBIC ACID 500 MG TABLET PO SCH ×2 (08:35→20:13)
[2019-11-14] MEDS: METOPROLOL TARTRATE 25 MG TABLET GT SCH ×2 (08:35→20:13)
[2019-11-14] MEDS: levETIRAcetam 500 MG/5 ML LIQUID UDC GT SCH ×2 (08:35→20:13)
[2019-11-14] MEDS: AMIODARONE HCL 200 MG TABLET GT SCH (08:35)
[2019-11-14] MEDS: PHENOBARBITAL 30 MG/7.5 ML LIQUID UDC GT SCH ×2 (08:35→20:13)
[2019-11-14 19:50] VITALS: BP 168/92
[2019-11-14] MEDS: MULTIVIT, IRON, MIN NO. 8, FA TABLET GT SCH (20:13)
[2019-11-14] MEDS: MAGNESIUM OXIDE 400 MG TABLET GT SCH (20:13)
[2019-11-15] MEDS: OMEPRAZOLE 40MG GT SCH (05:10)
[2019-11-15] MEDS: POLYVINYL ALCOHOL OPHT DROPS 15 ML BOTTLE EACHEYE SCH ×2 (05:10→17:04)
[2019-11-15 08:07] VITALS: BP 149/89
[2019-11-15] MEDS: ASPIRIN 81 MG TAB.CHEW GT SCH (08:45)
[2019-11-15] MEDS: levETIRAcetam 500 MG/5 ML LIQUID UDC GT SCH ×2 (08:45→20:17)
[2019-11-15] MEDS: AMIODARONE HCL 200 MG TABLET GT SCH (08:45)
[2019-11-15] MEDS: COD LIVER OIL/ZINC OXIDE OINT 113 GM TUBE TP SCH ×2 (08:46→20:18)
[2019-11-15] MEDS: DIAZEPAM 5 MG TABLET GT SCH ×2 (08:46→20:18)
[2019-11-15] MEDS: ASCORBIC ACID 500 MG TABLET PO SCH ×2 (08:46→20:18)
[2019-11-15] MEDS: PHENOBARBITAL 30 MG/7.5 ML LIQUID UDC GT SCH ×2 (08:46→20:17)
[2019-11-15] MEDS: METOPROLOL TARTRATE 25 MG TABLET GT SCH ×2 (08:46→20:17)
[2019-11-15] MEDS: HYDROGEN PEROXIDE 3% 118 ML BOTTLE TOP SCH ×2 (09:25→20:24)
[2019-11-15 20:07] VITALS: BP 113/91
[2019-11-15] MEDS: MAGNESIUM OXIDE 400 MG TABLET GT SCH (20:17)
[2019-11-15] MEDS: MULTIVIT, IRON, MIN NO. 8, FA TABLET GT SCH (20:18)
[2019-11-16] MEDS: POLYVINYL ALCOHOL OPHT DROPS 15 ML BOTTLE EACHEYE SCH ×2 (05:22→17:41)
[2019-11-16] MEDS: OMEPRAZOLE 40MG GT SCH (05:22)
[2019-11-16 08:09] VITALS: BP 121/72
[2019-11-16] MEDS: ASPIRIN 81 MG TAB.CHEW GT SCH (09:27)
[2019-11-16] MEDS: levETIRAcetam 500 MG/5 ML LIQUID UDC GT SCH ×2 (09:31→20:06)
[2019-11-16] MEDS: METOPROLOL TARTRATE 25 MG TABLET GT SCH ×2 (09:32→20:07)
[2019-11-16] MEDS: HYDROGEN PEROXIDE 3% 118 ML BOTTLE TOP SCH ×2 (09:33→21:01)
[2019-11-16] MEDS: ASCORBIC ACID 500 MG TABLET PO SCH ×2 (09:33→20:07)
[2019-11-16] MEDS: COD LIVER OIL/ZINC OXIDE OINT 113 GM TUBE TP SCH ×2 (09:33→20:07)
[2019-11-16] MEDS: DIAZEPAM 5 MG TABLET GT SCH ×2 (09:33→20:07)
[2019-11-16] MEDS: PHENOBARBITAL 30 MG/7.5 ML LIQUID UDC GT SCH ×2 (09:33→20:07)
[2019-11-16] MEDS: AMIODARONE HCL 200 MG TABLET GT SCH (09:46)
--- NOTE | 2019-11-16 11:30 | NUR ---
PT. SEEN AND EXAMINED BY FLASH Mclaughlin AND AWARE THAT PT'S URINE SEDIMENTS ARE CLOGGING F/C 16X10 AND THAT F/C NEEDS TO BE CHANGE WITH MORE FREQUENCY,PT. AFEBRILE AND WITH NEW ORDERS CARRIED OUT:OK TO CHANGE F/C TO 18X 10 AND ALSO WITH PODIATRY CONSULT FOR RT BIG GREAT INGROWN TOENAIL .
[2019-11-16] MEDS: VITAL AF 1.2 1,000 ML LIQUID GT PRN (14:20)
[2019-11-16 20:01] VITALS: BP 131/76
[2019-11-16] MEDS: MAGNESIUM OXIDE 400 MG TABLET GT SCH (20:07)
[2019-11-16] MEDS: MULTIVIT, IRON, MIN NO. 8, FA TABLET GT SCH (20:07)
[2019-11-17] MEDS: POLYVINYL ALCOHOL OPHT DROPS 15 ML BOTTLE EACHEYE SCH ×2 (05:49→17:23)
[2019-11-17] MEDS: OMEPRAZOLE 40MG GT SCH (05:49)
[2019-11-17 06:51] LABS: BASOPHILS % (AUTO) 0.6 % (0.0-2.0); EOSINOPHILS # (AUTO) 0.1 K/uL (0.0-0.7); EOSINOPHILS % (AUTO) 3.3 % (0.0-7.0); HEMATOCRIT 29.9 % (31.2-41.9); HEMOGLOBIN 10.5 g/dL (10.9-14.3); LYMPHOCYTES # (AUTO) 1.1 K/uL (20.0-40.0); LYMPHOCYTES % (AUTO) 26.1 % (20.5-51.5); MEAN CORPUSCULAR HEMOGLOBIN 30.4 uug (24.7-32.8); MEAN CORPUSCULAR HGB CONC 35 g/dL (32.3-35.6); MEAN CORPUSCULAR VOLUME 86.5 fL (75.5-95.3); MONOCYTES # (AUTO) 0.3 K/uL (2.0-10.0); NEUTROPHILS # (AUTO) 2.7 K/uL (1.8-8.9); PLATELET COUNT (AUTO) 231 K/uL (179-408); RED BLOOD CELL COUNT(AUTO) 3.46 MIL/uL (3.63-4.92); WHITE BLOOD COUNT (AUTO) 4.3 K/uL (3.8-11.8)
[2019-11-17 07:11] LABS: CARBON DIOXIDE 28 mmol/L (21-32); CHLORIDE 104 mmol/L (98-107); CREATININE 0.4 mg/dL (0.6-1.3); GLUCOSE 90 mg/dL (74-106); MAGNESIUM 1.9 mg/dL (1.8-2.4); PHOSPHOROUS 4.1 mg/dL (2.5-4.9); POTASSIUM 3.7 mmol/L (3.5-5.1); UREA NITROGEN, BLOOD 18 mg/dL (7-18)
[2019-11-17 08:07] VITALS: BP 134/90
[2019-11-17] MEDS: ASPIRIN 81 MG TAB.CHEW GT SCH (09:03)
[2019-11-17] MEDS: AMIODARONE HCL 200 MG TABLET GT SCH (09:09)
[2019-11-17] MEDS: METOPROLOL TARTRATE 25 MG TABLET GT SCH ×2 (09:11→20:16)
[2019-11-17] MEDS: levETIRAcetam 500 MG/5 ML LIQUID UDC GT SCH ×2 (09:11→20:18)
[2019-11-17] MEDS: DIAZEPAM 5 MG TABLET GT SCH ×2 (09:35→20:16)
[2019-11-17] MEDS: PHENOBARBITAL 30 MG/7.5 ML LIQUID UDC GT SCH ×2 (09:35→20:16)
[2019-11-17] MEDS: COD LIVER OIL/ZINC OXIDE OINT 113 GM TUBE TP SCH ×2 (09:36→20:17)
[2019-11-17] MEDS: ASCORBIC ACID 500 MG TABLET PO SCH ×2 (09:36→20:16)
[2019-11-17] MEDS: HYDROGEN PEROXIDE 3% 118 ML BOTTLE TOP SCH ×2 (09:45→21:16)
--- NOTE | 2019-11-17 13:20 | NUR ---
Seen and examined by Layne ELMORE, with new orders noted
--- NOTE | 2019-11-17 17:37 | NUR ---
RT GREAT TOENAIL NOT RED ,NO DRAINAGE ,PT. WAS SEEN BY DR. TANNER (SPARERIBS TRIMMER ON 11/11/19)CH.NURSE WAS AWARE AND WILL CONT. TO MONITOR.
[2019-11-17 20:00] VITALS: BP 144/83
[2019-11-17] MEDS: MAGNESIUM OXIDE 400 MG TABLET GT SCH (20:16)
[2019-11-17] MEDS: MULTIVIT, IRON, MIN NO. 8, FA TABLET GT SCH (20:16)
[2019-11-18] MEDS: OMEPRAZOLE 40MG GT SCH (05:12)
[2019-11-18] MEDS: POLYVINYL ALCOHOL OPHT DROPS 15 ML BOTTLE EACHEYE SCH ×2 (05:12→17:26)
[2019-11-18] MEDS: ASPIRIN 81 MG TAB.CHEW GT SCH (08:41)
[2019-11-18] MEDS: METOPROLOL TARTRATE 25 MG TABLET GT SCH ×2 (08:43→21:56)
[2019-11-18] MEDS: DIAZEPAM 5 MG TABLET GT SCH ×2 (08:43→22:16)
[2019-11-18] MEDS: PHENOBARBITAL 30 MG/7.5 ML LIQUID UDC GT SCH ×2 (08:43→22:16)
[2019-11-18] MEDS: levETIRAcetam 500 MG/5 ML LIQUID UDC GT SCH ×2 (08:43→21:55)
[2019-11-18] MEDS: AMIODARONE HCL 200 MG TABLET GT SCH (08:43)
[2019-11-18] MEDS: ASCORBIC ACID 500 MG TABLET PO SCH ×2 (08:43→21:58)
[2019-11-18] MEDS: COD LIVER OIL/ZINC OXIDE OINT 113 GM TUBE TP SCH ×2 (08:44→21:58)
[2019-11-18] MEDS: HYDROGEN PEROXIDE 3% 118 ML BOTTLE TOP SCH ×2 (09:55→21:40)
[2019-11-18 12:29] VITALS: BP 130/70
[2019-11-18 16:49] VITALS: BP 130/70
[2019-11-18 20:30] VITALS: BP 172/81
[2019-11-18] MEDS: MULTIVIT, IRON, MIN NO. 8, FA TABLET GT SCH (21:57)
[2019-11-18] MEDS: MAGNESIUM OXIDE 400 MG TABLET GT SCH (21:57)
[2019-11-19] MEDS: OMEPRAZOLE 40MG GT SCH (05:51)
[2019-11-19] MEDS: POLYVINYL ALCOHOL OPHT DROPS 15 ML BOTTLE EACHEYE SCH ×2 (05:51→17:03)
[2019-11-19 08:02] VITALS: BP 96/67
[2019-11-19] MEDS: HYDROGEN PEROXIDE 3% 118 ML BOTTLE TOP SCH ×2 (08:32→20:42)
[2019-11-19] MEDS: METOPROLOL TARTRATE 25 MG TABLET GT SCH ×2 (09:00→21:12)
[2019-11-19] MEDS: AMIODARONE HCL 200 MG TABLET GT SCH (09:18)
[2019-11-19] MEDS: levETIRAcetam 500 MG/5 ML LIQUID UDC GT SCH ×2 (09:19→21:12)
[2019-11-19] MEDS: ASCORBIC ACID 500 MG TABLET PO SCH ×2 (09:29→21:16)
[2019-11-19] MEDS: PHENOBARBITAL 30 MG/7.5 ML LIQUID UDC GT SCH ×2 (09:29→21:13)
[2019-11-19] MEDS: COD LIVER OIL/ZINC OXIDE OINT 113 GM TUBE TP SCH ×2 (09:29→21:16)
[2019-11-19] MEDS: DIAZEPAM 5 MG TABLET GT SCH ×2 (09:29→21:16)
[2019-11-19] MEDS: ASPIRIN 81 MG TAB.CHEW GT SCH (09:30)
[2019-11-19 20:16] VITALS: BP 145/95
[2019-11-19] MEDS: MAGNESIUM OXIDE 400 MG TABLET GT SCH (21:13)
[2019-11-19] MEDS: MULTIVIT, IRON, MIN NO. 8, FA TABLET GT SCH (21:16)
[2019-11-19] MEDS: VITAL AF 1.2 1,000 ML LIQUID GT PRN (23:00)
[2019-11-20] VITALS (8 sets, daily range): BP systolic 98–126; BP diastolic 49–88
[2019-11-20] MEDS: OMEPRAZOLE 40MG GT SCH (05:21)
[2019-11-20] MEDS: POLYVINYL ALCOHOL OPHT DROPS 15 ML BOTTLE EACHEYE SCH ×2 (05:21→18:03)
[2019-11-20] MEDS: levETIRAcetam 500 MG/5 ML LIQUID UDC GT SCH ×2 (08:14→21:14)
[2019-11-20] MEDS: AMIODARONE HCL 200 MG TABLET GT SCH (08:14)
[2019-11-20] MEDS: ASPIRIN 81 MG TAB.CHEW GT SCH (08:14)
[2019-11-20] MEDS: METOPROLOL TARTRATE 25 MG TABLET GT SCH ×2 (08:15→21:14)
[2019-11-20] MEDS: PHENOBARBITAL 30 MG/7.5 ML LIQUID UDC GT SCH ×2 (08:15→21:14)
[2019-11-20] MEDS: COD LIVER OIL/ZINC OXIDE OINT 113 GM TUBE TP SCH ×2 (08:15→21:15)
[2019-11-20] MEDS: ASCORBIC ACID 500 MG TABLET PO SCH ×2 (08:15→21:15)
[2019-11-20] MEDS: DIAZEPAM 5 MG TABLET GT SCH ×2 (08:15→21:14)
[2019-11-20] MEDS: HYDROGEN PEROXIDE 3% 118 ML BOTTLE TOP SCH ×2 (09:15→21:18)
[2019-11-20 09:49] LABS: CREATININE 0.8 mg/dL (0.6-1.3); POTASSIUM 3.8 mmol/L (3.5-5.1)
[2019-11-20 10:00] LABS: BASOPHILS % (AUTO) 0.1 % (0.0-2.0); EOSINOPHILS % (AUTO) 0.2 % (0.0-7.0); HEMOGLOBIN 9.8 g/dL (10.9-14.3); LYMPHOCYTES # (AUTO) 0.2 K/uL (20.0-40.0); LYMPHOCYTES % (AUTO) 2.1 % (20.5-51.5); MEAN CORPUSCULAR HEMOGLOBIN 29.8 uug (24.7-32.8); MEAN CORPUSCULAR HGB CONC 34 g/dL (32.3-35.6); MEAN CORPUSCULAR VOLUME 87.9 fL (75.5-95.3); MONOCYTES # (AUTO) 0.4 K/uL (2.0-10.0); MONOCYTES % (AUTO) 4.6 % (0.0-11.0); NEUTROPHILS # (AUTO) 7.7 K/uL (1.8-8.9); PLATELET COUNT (AUTO) 165 K/uL (179-408); WHITE BLOOD COUNT (AUTO) 8.3 K/uL (3.8-11.8)
[2019-11-20] MEDS: CEFEPIME HCL 1 G in IV DEXTROSE 5% 50 ML IV SCH ×2 (10:00→21:52)
[2019-11-20] MEDS: VANCOMYCIN IV 750 MG in IV DEXTROSE 5% 250 ML IV SCH ×2 (11:05→23:03)
[2019-11-20 11:13] LABS: *BILIRUBIN,URIN NEGATIVE (NEGATIVE); *BLOOD, URINE 3+ (NEGATIVE); *CLARITY,URINE CLOUDY (CLEAR); *COLOR,URINE YELLOW (YELLOW); *KETONES,URINE NEGATIVE (NEGATIVE); *UROBILINOGEN,URINE 0.2 E.U./dl (NORMAL); LEUKOCYTE ESTERASE ,URINE 2+ (NEGATIVE); NITRITE, URINE NEGATIVE (NEGATIVE); UGLUCOSE NEGATIVE (NEGATIVE)
[2019-11-20 11:23] LABS: RBC,URINE TNTC /HPF (0-3)
[2019-11-20 11:24] LABS: BACTERIA,URINE MANY /HPF (NONE SEEN); WBC,URINE TNTC /HPF (0-3)
[2019-11-20 11:27] LABS: SQUAMOUS EPITHELIAL CELL,UR MODERATE /HPF (NONE SEEN)
[2019-11-20 11:28] LABS: MUCUS,URINE FEW /LPF (0-FEW)
--- NOTE | 2019-11-20 11:30 | NUR ---
Temp 102.9 this Am, cooling measures given, Dr. Tripathi notified of patient's condition, new order given, cbc, bmp, blood cultures x2, procalcitonin, urine ua c+s, and ID consult with Kristine Smith. Kristine Assembly Instructions Writer, notified of ID consult, new orders given to start Vancomycin iv pharmacy to dose, cefepime 1g iv q12hrs x5 days per hospital protocol. Per Camilo from [facility], Vancomycin and cefepime are cover by patient's insurance, start vancomycin 750mg iv q12hrs, vancomycin through level 30 minutes before 3rd dose, ok to take first doses from Iv Ekit, no a/r reaction noted from iv antibiotics, Father notified of patient's condition.
[2019-11-20] MEDS: ACETAMINOPHEN 650 MG/20 ML UDC- SA PATIENTS-FEVER ONLY GT PRN ×2 (14:00→22:26)
[2019-11-20] MEDS: MULTIVIT, IRON, MIN NO. 8, FA TABLET GT SCH (21:14)
[2019-11-20] MEDS: MAGNESIUM OXIDE 400 MG TABLET GT SCH (21:14)
[2019-11-21] MEDS: VITAL AF 1.2 1,000 ML LIQUID GT PRN (01:10)
--- NOTE | 2019-11-21 01:23 | NUR ---
continue on vancomycin 750mg iv and cefepime 1 gm iv for fever, no adverse reaction noted, temp-100.3@2000. temp-97.2@ 2430, no respiratory distress noted.
[2019-11-21] MEDS: POLYVINYL ALCOHOL OPHT DROPS 15 ML BOTTLE EACHEYE SCH ×2 (05:56→17:30)
[2019-11-21] MEDS: OMEPRAZOLE 40MG GT SCH (05:56)
--- NOTE | 2019-11-21 08:00 | NUR ---
nursing notes: patient received with vital 101/52.,temp 98.7, resp. 18, hrt rate 90, sat. 100%, no pain noted at this time. continues on antibiotic tx, voss draining well. will continue to monitor.
[2019-11-21] MEDS: HYDROGEN PEROXIDE 3% 118 ML BOTTLE TOP SCH (08:30)
[2019-11-21 08:44] VITALS: BP 101/52
[2019-11-21] MEDS: ASPIRIN 81 MG TAB.CHEW GT SCH (08:49)
[2019-11-21] MEDS: levETIRAcetam 500 MG/5 ML LIQUID UDC GT SCH (08:50)
[2019-11-21] MEDS: AMIODARONE HCL 200 MG TABLET GT SCH (08:50)
[2019-11-21] MEDS: ASCORBIC ACID 500 MG TABLET PO SCH (08:51)
[2019-11-21] MEDS: PHENOBARBITAL 30 MG/7.5 ML LIQUID UDC GT SCH (08:51)
[2019-11-21] MEDS: DIAZEPAM 5 MG TABLET GT SCH (08:51)
[2019-11-21] MEDS: METOPROLOL TARTRATE 25 MG TABLET GT SCH (08:51)
[2019-11-21] MEDS: COD LIVER OIL/ZINC OXIDE OINT 113 GM TUBE TP SCH (08:51)
[2019-11-21 10:30] VITALS: BP 139/86
[2019-11-21 10:55] LABS: CREATININE 1.1 mg/dL (0.6-1.3); VANCOMYCIN,TROUGH 18.7 ug/mL (12.0-20.0)
[2019-11-21] MEDS: CEFEPIME HCL 1 G in IV DEXTROSE 5% 50 ML IV SCH (10:55)
[2019-11-21] MEDS: ACETAMINOPHEN 650 MG/20 ML UDC- SA PATIENTS-PAIN ONLY GT PRN (10:58)
[2019-11-21] MEDS: VANCOMYCIN IV 750 MG in IV DEXTROSE 5% 250 ML IV SCH (11:00)
[2019-11-21 12:15] VITALS: BP 141/76
--- NOTE | 2019-11-21 12:20 | NUR ---
nursing notes: temp at 103.0 orally, cooling measures and tylenol provided, charge nurse made aware. will continue to monitor.
--- NOTE | 2019-11-21 13:08 | NUR ---
Kristine Sanders ANIMAL COP aware pt has elevated temp of 103.1 orally,tylenol was given,and pt is on cooling measures,continue on vancomycin and cefepine Ivatb,preliminary urine culture gran negative rods more than [id number],with new orders noted and carried out.
--- NOTE | 2019-11-21 14:00 | NUR ---
nursing notes: voss catheter change per doctors order.
[2019-11-21 14:23] VITALS: BP 114/63
--- NOTE | 2019-11-21 14:30 | NUR ---
BP 114/63,p 109,rr20,O2 sat 100 %,temp 101.1,on close observation and cooling measures.
[2019-11-21 16:30] VITALS: BP 90/43
--- NOTE | 2019-11-21 16:30 | NUR ---
BP 90/43,p 98,r 18,o2 sat 100 % ,temp 100.3,continue on cooling measure,no respiratoty distress.ventilator dependant
[2019-11-21] MEDS ORDERED: MEROPENEM 1 G in IV NORMAL SALINE 100 ML IV SCH (18:00)
--- NOTE | 2019-11-21 18:17 | NUR ---
BP 68/42 ,both lower extremities up,feeding off,Dr Flynn called.
--- NOTE | 2019-11-21 18:35 | NUR ---
Dr Flynn with new orders to transfer pt to ER for evaluation ,Stefanie,nurse sales clerk supervisor aware,call Er spoke to Ousmane GIL.
--- NOTE | 2019-11-21 18:45 | NUR ---
nursing notes: patients b/p at 68/46, hr 89, temp at 100.3, patient transferred to ER at this time.
--- NOTE | 2019-11-21 18:46 | NUR ---
Pt transferred to Er accompanied by the Rt's and myself,Report ,medications list ,labs results,cxr and sputum and urine culture results reported to ER MD.Spoke to Chaz Phillipsgaby Pt's father and aware of the transfer.
[2019-11-22] MEDS ORDERED: AMIO200T5 GT (07:03)
[2019-11-22] MEDS ORDERED: ASCO500T21 PO (07:04)
[2019-11-22] MEDS ORDERED: DIAZ5TAB GT ×2 (07:05→07:08)
[2019-11-22] MEDS ORDERED: ZINC57OI3 TP (07:08)
[2019-11-22] MEDS ORDERED: MAGN400T30 GT (07:10)
[2019-11-22] MEDS ORDERED: HYDR237S13 TP ×2 (07:10)
[2019-11-22] MEDS ORDERED: METO25TA6 GT (07:11)
[2019-11-22] MEDS ORDERED: OMEP40CA13 GT (07:12)
[2019-11-22] MEDS ORDERED: NUT.237L65 GT (07:12)
[2019-11-22] MEDS ORDERED: ONDA4TAB5 GT (07:13)
[2019-11-22] MEDS ORDERED: DEXT15DR6 EACHEYE (07:14)
[2019-11-23 07:44] LABS: EOSINOPHILS # (AUTO) 0.1 K/uL (0.0-0.7); LYMPHOCYTES # (AUTO) 0.1 K/uL (20.0-40.0); MONOCYTES # (AUTO) 0.3 K/uL (2.0-10.0); NEUTROPHILS # (AUTO) 3.8 K/uL (1.8-8.9)
[2019-11-23 08:06] LABS: BASOPHILS % (AUTO) 0.4 % (0.0-2.0); EOSINOPHILS % (AUTO) 1.5 % (0.0-7.0); LYMPHOCYTES % (AUTO) 2.8 % (20.5-51.5); MEAN CORPUSCULAR HGB CONC 34 g/dL (32.3-35.6); MEAN CORPUSCULAR VOLUME 88.9 fL (75.5-95.3); MONOCYTES % (AUTO) 7.1 % (0.0-11.0); NEUTROPHILS % (AUTO) 88.2 % (38.5-71.5); PLATELET COUNT (AUTO) 76 K/uL (179-408); RED BLOOD CELL COUNT(AUTO) 2.51 MIL/uL (3.63-4.92)
[2019-11-23 08:07] LABS: HEMATOCRIT 22.4 % (31.2-41.9); HEMOGLOBIN 7.5 g/dL (10.9-14.3); WHITE BLOOD COUNT (AUTO) 4.3 K/uL (3.8-11.8)
[2019-11-23 09:03] LABS: BAND % (MANUAL) 4 % (0-10); EOSINOPHILS % (MANUAL) 5 % (0-8); LYMPHOCYTES % (MANUAL) 6 % (20-40); MONOCYTES % (MANUAL) 7 % (2-10); NEUTROPHILS % (MANUAL) 78 % (42-75)
[2019-11-27 19:03] VITALS: BP 122/82
--- NOTE | 2019-11-27 19:10 | NUR ---
READMITTED FROM [facility] ICU S/P DX: HYPOTENSION AND C. DIFF. ON VANCOMYCIN G-TUBE FOR C.DIFF. ON CONTACT ISOLATION FOR C. DIFF. LEFT ISCHIUM NOTED WITH DTI. WILL CONTINUE TO MONITOR.
[2019-11-27 20:13] VITALS: BP 136/87
[2019-11-27] MEDS ORDERED: MEROPENEM 1 G in IV NORMAL SALINE 100 ML IV SCH (21:00)
[2019-11-27] MEDS ORDERED: VANCOMYCIN FOR PO/GT/NG USE GT SCH (21:00)
[2019-11-27] MEDS ORDERED: DIAZEPAM 5 MG TABLET GT PRN (21:15)
[2019-11-27] MEDS: levETIRAcetam 500 MG/5 ML LIQUID UDC GT SCH (21:51)
[2019-11-27] MEDS: METOPROLOL TARTRATE 25 MG TABLET GT SCH (21:51)
[2019-11-27] MEDS: PHENOBARBITAL 30 MG/7.5 ML LIQUID UDC GT SCH (21:51)
[2019-11-27] MEDS: DIAZEPAM 5 MG TABLET GT SCH (21:51)
[2019-11-27] MEDS: MAGNESIUM OXIDE 400 MG TABLET GT SCH (21:51)
[2019-11-27] MEDS: MULTIVIT, IRON, MIN NO. 8, FA TABLET GT SCH (21:51)
[2019-11-27] MEDS: ASCORBIC ACID 500 MG TABLET PO SCH (21:52)
[2019-11-27] MEDS: COD LIVER OIL/ZINC OXIDE OINT 113 GM TUBE TP SCH (21:52)
--- NOTE | 2019-11-27 21:52 | NUR ---
GT FEEDING VITAL 1.2 @55CC/HR X20 HOURS RUNNING ORDERED. VANCO PO NOT GIVEN DUE TO DRUG NOT AVAILABLE.
[2019-11-28 00:28] VITALS: BP 112/74
--- NOTE | 2019-11-28 04:00 | NUR ---
Right femoral PICC line dressing changed. Line is clean and intact, triple lumens flushed.
[2019-11-28] MEDS ORDERED: ONDANSETRON ODT 4 MG TAB.RAPDIS GT PRN (07:30)
[2019-11-28 07:46] VITALS: BP 126/81
[2019-11-28] MEDS: ASPIRIN 81 MG TAB.CHEW GT SCH (08:28)
[2019-11-28] MEDS: METOPROLOL TARTRATE 25 MG TABLET GT SCH ×2 (08:29→20:15)
[2019-11-28] MEDS: AMIODARONE HCL 200 MG TABLET GT SCH (08:29)
[2019-11-28] MEDS: levETIRAcetam 500 MG/5 ML LIQUID UDC GT SCH ×2 (08:29→20:15)
[2019-11-28] MEDS: PHENOBARBITAL 30 MG/7.5 ML LIQUID UDC GT SCH ×2 (08:30→20:16)
[2019-11-28] MEDS: ASCORBIC ACID 500 MG TABLET PO SCH ×2 (08:30→20:16)
[2019-11-28] MEDS: COD LIVER OIL/ZINC OXIDE OINT 113 GM TUBE TP SCH ×2 (08:30→20:16)
[2019-11-28] MEDS: DIAZEPAM 5 MG TABLET GT SCH ×2 (08:30→20:16)
[2019-11-28] MEDS: HYDROGEN PEROXIDE 3% 118 ML BOTTLE TOP SCH ×2 (09:00→21:10)
[2019-11-28] MEDS: VANCOMYCIN FOR PO/GT/NG USE GT SCH ×2 (17:40→20:16)
[2019-11-28] MEDS ORDERED: POLYVINYL ALCOHOL OPHT DROPS 15 ML BOTTLE EACHEYE PRN (18:00)
--- NOTE | 2019-11-28 19:09 | NUR ---
READMITTED FROM [facility] ICU S/P DX: HYPOTENSION AND C. DIFF. ON VANCOMYCIN G-TUBE FOR C.DIFF. ON CONTACT ISOLATION FOR C. DIFF. LEFT ISCHIUM NOTED WITH DTI. WILL CONTINUE TO MONITOR. Addendum: 11/28/19 at 1910 by FARHAN GARAY RN READMITTED FROM [facility] ICU S/P DX: HYPOTENSION AND C. DIFF. ON VANCOMYCIN G-TUBE FOR C.DIFF. ON CONTACT ISOLATION FOR C. DIFF. LEFT ISCHIUM NOTED WITH DTI. WILL CONTINUE TO MONITOR.
[2019-11-28 19:48] VITALS: BP 133/77
[2019-11-28] MEDS: MULTIVIT, IRON, MIN NO. 8, FA TABLET GT SCH (20:16)
[2019-11-28] MEDS: MAGNESIUM OXIDE 400 MG TABLET GT SCH (20:16)
[2019-11-29] MEDS: OMEPRAZOLE 40MG GT SCH (05:24)
[2019-11-29 08:00] VITALS: BP 111/53
[2019-11-29] MEDS: METOPROLOL TARTRATE 25 MG TABLET GT SCH ×2 (09:00→20:19)
[2019-11-29] MEDS: ASPIRIN 81 MG TAB.CHEW GT SCH (09:00)
[2019-11-29] MEDS: COD LIVER OIL/ZINC OXIDE OINT 113 GM TUBE TP SCH ×2 (09:00→20:20)
[2019-11-29] MEDS: DIAZEPAM 5 MG TABLET GT SCH ×2 (09:00→20:20)
[2019-11-29] MEDS: HYDROGEN PEROXIDE 3% 118 ML BOTTLE TOP SCH ×2 (09:00→21:14)
[2019-11-29] MEDS: VANCOMYCIN FOR PO/GT/NG USE GT SCH ×4 (09:00→20:20)
[2019-11-29] MEDS: PHENOBARBITAL 30 MG/7.5 ML LIQUID UDC GT SCH ×2 (09:00→20:19)
[2019-11-29] MEDS: AMIODARONE HCL 200 MG TABLET GT SCH (09:00)
[2019-11-29] MEDS: levETIRAcetam 500 MG/5 ML LIQUID UDC GT SCH ×2 (09:00→20:19)
[2019-11-29] MEDS: ASCORBIC ACID 500 MG TABLET PO SCH ×2 (09:00→20:20)
[2019-11-29 19:57] VITALS: BP 166/93
[2019-11-29] MEDS: MAGNESIUM OXIDE 400 MG TABLET GT SCH (20:19)
[2019-11-29] MEDS: MULTIVIT, IRON, MIN NO. 8, FA TABLET GT SCH (20:19)
[2019-11-29 21:00] VITALS: BP 139/85
[2019-11-29 22:36] VITALS: BP 132/77
--- NOTE | 2019-11-29 23:41 | NUR ---
temperature is 99.9, remains on vancomycin via gt for c-diff, no adverse reactions noted, still with loose stools noted on rectal tube drainage, cooling measures done, voss catheter is draining well to yellow urine, good jeny care rendered, kept clean and comfortable. will continue monitor.
[2019-11-30] VITALS (12 sets, daily range): BP systolic 98–145; BP diastolic 56–86
[2019-11-30] MEDS: OMEPRAZOLE 40MG GT SCH (05:20)
[2019-11-30] MEDS: ACETAMINOPHEN 650 MG/20 ML UDC- SA PATIENTS-FEVER ONLY GT PRN (08:00)
[2019-11-30] MEDS: AMIODARONE HCL 200 MG TABLET GT SCH (08:47)
[2019-11-30] MEDS: ASPIRIN 81 MG TAB.CHEW GT SCH (08:47)
[2019-11-30] MEDS: METOPROLOL TARTRATE 25 MG TABLET GT SCH ×2 (08:51→21:45)
[2019-11-30] MEDS: PHENOBARBITAL 30 MG/7.5 ML LIQUID UDC GT SCH ×2 (08:51→21:59)
[2019-11-30] MEDS: levETIRAcetam 500 MG/5 ML LIQUID UDC GT SCH ×2 (08:51→21:41)
[2019-11-30] MEDS: ASCORBIC ACID 500 MG TABLET PO SCH ×2 (08:51→21:43)
[2019-11-30] MEDS: DIAZEPAM 5 MG TABLET GT SCH ×2 (08:51→22:00)
[2019-11-30] MEDS: COD LIVER OIL/ZINC OXIDE OINT 113 GM TUBE TP SCH ×2 (08:53→21:43)
[2019-11-30] MEDS: HYDROGEN PEROXIDE 3% 118 ML BOTTLE TOP SCH ×2 (09:00→21:41)
[2019-11-30] MEDS: VANCOMYCIN FOR PO/GT/NG USE GT SCH ×4 (09:03→21:00)
--- NOTE | 2019-11-30 10:22 | NUR ---
NOTED WITH ELEVATED TEMP. 101.4, ALSO HAD 99.9 TEMP LA[address]IGHT. PAGED [address] CORBETT REGARDING THE ISSUE WITH NEW ORDERS NOTED AND CARRIED OUT.
[2019-11-30 14:31] LABS: BASOPHILS % (AUTO) 0.3 % (0.0-2.0); EOSINOPHILS # (AUTO) 0.1 K/uL (0.0-0.7); EOSINOPHILS % (AUTO) 1.4 % (0.0-7.0); HEMATOCRIT 21.2 % (31.2-41.9); LYMPHOCYTES # (AUTO) 0.6 K/uL (20.0-40.0); LYMPHOCYTES % (AUTO) 9.9 % (20.5-51.5); MEAN CORPUSCULAR HEMOGLOBIN 29.5 uug (24.7-32.8); MEAN CORPUSCULAR HGB CONC 34 g/dL (32.3-35.6); MEAN CORPUSCULAR VOLUME 86.8 fL (75.5-95.3); MONOCYTES # (AUTO) 0.6 K/uL (2.0-10.0); MONOCYTES % (AUTO) 8.8 % (0.0-11.0); NEUTROPHILS # (AUTO) 5.1 K/uL (1.8-8.9); NEUTROPHILS % (AUTO) 79.6 % (38.5-71.5); PLATELET COUNT (AUTO) 174 K/uL (179-408); WHITE BLOOD COUNT (AUTO) 6.4 K/uL (3.8-11.8)
[2019-11-30 14:42] LABS: CREATININE 0.7 mg/dL (0.6-1.3)
[2019-11-30 15:00] LABS: RED BLOOD CELL COUNT(AUTO) 2.44 MIL/uL (3.63-4.92)
[2019-11-30 15:01] LABS: HEMOGLOBIN 7.2 g/dL (10.9-14.3)
[2019-11-30] MEDS: VITAL AF 1.2 1,000 ML LIQUID GT PRN (17:30)
[2019-11-30] MEDS ORDERED: DOSING PER PHARMACY-AMIKACIN IV IV PRN (17:45)
[2019-11-30 18:58] LABS: *BILIRUBIN,URIN NEGATIVE (NEGATIVE); *CLARITY,URINE SLIGHTLY CLOUDY (CLEAR); *COLOR,URINE YELLOW (YELLOW); *KETONES,URINE NEGATIVE (NEGATIVE); *UROBILINOGEN,URINE 0.2 E.U./dl (NORMAL); LEUKOCYTE ESTERASE ,URINE TRACE (NEGATIVE); NITRITE, URINE NEGATIVE (NEGATIVE); PH,URINE 5.5 (5.0-8.0); UGLUCOSE NEGATIVE (NEGATIVE)
[2019-11-30 18:59] LABS: *BLOOD, URINE TRACE (NEGATIVE)
[2019-11-30 19:02] LABS: BACTERIA,URINE FEW /HPF (NONE SEEN); SQUAMOUS EPITHELIAL CELL,UR FEW /HPF (NONE SEEN)
[2019-11-30] MEDS: AMIKACIN 400 MG in IV DEXTROSE 5% 100 ML IV SCH (19:30)
[2019-11-30] MEDS: MAGNESIUM OXIDE 400 MG TABLET GT SCH (21:41)
[2019-11-30] MEDS: MULTIVIT, IRON, MIN NO. 8, FA TABLET GT SCH (21:42)
[2019-11-30] MEDS: NEOMY/BACITRA/POLYMYXIN B OINT UD PACKET TP SCH (21:43)
[2019-11-30] MEDS ORDERED: AMIKACIN 400 MG in IV DEXTROSE 5% 100 ML IV SCH (22:00)
[2019-12-01 00:30] VITALS: BP 103/59
[2019-12-01] MEDS: AMIKACIN 400 MG in IV DEXTROSE 5% 100 ML IV SCH ×2 (02:30→11:30)
[2019-12-01 02:40] VITALS: BP 108/56
[2019-12-01 04:30] VITALS: BP 114/57
--- NOTE | 2019-12-01 04:51 | NUR ---
started on amikacin 500mg iv for fever, no adverse reaction noted, afebrile, no respiratory distress noted.
[2019-12-01] MEDS: OMEPRAZOLE 40MG GT SCH (05:03)
[2019-12-01 06:28] VITALS: BP 117/60
[2019-12-01 08:00] VITALS: BP 96/54
[2019-12-01] MEDS: METOPROLOL TARTRATE 25 MG TABLET GT SCH ×2 (09:00→21:23)
[2019-12-01] MEDS: HYDROGEN PEROXIDE 3% 118 ML BOTTLE TOP SCH ×2 (09:00→21:39)
[2019-12-01] MEDS: ASPIRIN 81 MG TAB.CHEW GT SCH (09:17)
[2019-12-01] MEDS: AMIODARONE HCL 200 MG TABLET GT SCH (09:18)
[2019-12-01] MEDS: levETIRAcetam 500 MG/5 ML LIQUID UDC GT SCH ×2 (09:19→21:23)
[2019-12-01] MEDS: PHENOBARBITAL 30 MG/7.5 ML LIQUID UDC GT SCH ×2 (09:20→21:24)
[2019-12-01] MEDS: DIAZEPAM 5 MG TABLET GT SCH ×2 (09:20→21:25)
[2019-12-01] MEDS: NEOMY/BACITRA/POLYMYXIN B OINT UD PACKET TP SCH ×2 (09:20→21:31)
[2019-12-01] MEDS: VANCOMYCIN FOR PO/GT/NG USE GT SCH ×4 (09:20→21:27)
[2019-12-01] MEDS: COD LIVER OIL/ZINC OXIDE OINT 113 GM TUBE TP SCH ×2 (09:20→21:27)
[2019-12-01] MEDS: ASCORBIC ACID 500 MG TABLET PO SCH ×2 (09:20→21:27)
[2019-12-01 11:00] LABS: CREATININE 0.8 mg/dL (0.6-1.3)
--- NOTE | 2019-12-01 14:48 | NUR ---
INTERDISCIPLINARY PLAN OF CARE CONFERENCE was held today. Patient's father is very minimally involved in patient's care and does not participate in the IDT meetings. Dr. Lora and the Interdisciplinary Team reviewed the current plan of care in detail. RN reported on patient's medical condition and recent acute hospitalization on 11/21/19--11/27/19. Patient is currently on isolation precautions for c-diff. See RN IDT conference notes. See also all other disciplines IDT notes and physician's progress notes for additional details.
--- NOTE | 2019-12-01 15:06 | NUR ---
Pharmacy Update from Today's 12/01/19 IDT Meeting Note: Patient was transferred to CCU 11/20-11/26 d/t septic shock 2/2 UTI requiring pressors and with subsequent seizure episodes. Pt was stabilized, treated, and transferred back to on finishing courses of Vanco PO for c diff and amikacin. ID continues to follow on floor. VS: Temp 97.8 BP 117/60 HR 78 LABS: (from 11/30/19) Wbc 6.4 H/H 7.2/21.2 Plt 174 Na 139 K 4.0 Cl 102 CO2 30 BUN/Scr 11/0.7 BS 103 Ca 9.0 MEDICATION USE REVIEWED: > Pt not on any anti-psych medications > Pt continues on Keppra 2000mg q12hr since 12/02/18; CrCl >100 ml/min, renal function ok for current dose. No reported seizures since readmit > Pt on Phenobarbital 129.6mg q12hr since 07/23/19. Last level 09/08/19 was 33 (15-39), within therapeutic range > Pt also on Valium 5mg q12hr since 08/05 for muscle twitching/residual seizure activity per neurology. PRN also on board. x0 used since readmit > Pt on Magnesium Oxide 400mg daily since 08/03. Last Mg 2.0 > Pt on Lopressor 12.5mg q12hr since 10/25/19, last BP wnl. > Pt on Omeprazole 40mg daily since 08/02/19, ok dose per renal function PRN MED USAGE: (Since readmit) Tylenol PRN pain/temp used x0 Zofran PRN used x0 Artificial Tears PRN used x0 NEW ORDERS NOTED: > Continued on amikacin IV 11/29-12/04 for resp cx pseudomonas/UTI per ID > Continues Vanco PO for c diff (started 11/24 in CCU) Patient was reviewed and discussed in depth per IDT team with no medication issues at this time. Reported recent medication changes and regimens, with no further recommendations at this time. Pt completing courses of abx with ID following. Will continue to monitor
[2019-12-01] MEDS: VITAL AF 1.2 1,000 ML LIQUID GT PRN (17:43)
[2019-12-01 20:10] VITALS: BP 126/72
[2019-12-01] MEDS: MAGNESIUM OXIDE 400 MG TABLET GT SCH (21:24)
[2019-12-01] MEDS: MULTIVIT, IRON, MIN NO. 8, FA TABLET GT SCH (21:25)
--- NOTE | 2019-12-01 21:27 | NUR ---
HOLD AMIKACIN 400MG IV TODAY AND TOMORROW DUE TO AMIKACIN TROUGH (14.2).THEN AMIKACIN RANDOM TROUGH ON 12/03/19 WITH BUN & CR.[facility] AWARE.
[2019-12-02] MEDS: OMEPRAZOLE 40MG GT SCH (06:00)
[2019-12-02 08:00] VITALS: BP 110/71
[2019-12-02] MEDS: ASPIRIN 81 MG TAB.CHEW GT SCH (08:30)
[2019-12-02] MEDS: AMIODARONE HCL 200 MG TABLET GT SCH (08:30)
[2019-12-02] MEDS: levETIRAcetam 500 MG/5 ML LIQUID UDC GT SCH ×2 (08:30→21:21)
[2019-12-02] MEDS: METOPROLOL TARTRATE 25 MG TABLET GT SCH ×2 (08:31→21:22)
[2019-12-02] MEDS: DIAZEPAM 5 MG TABLET GT SCH ×2 (08:31→21:23)
[2019-12-02] MEDS: ASCORBIC ACID 500 MG TABLET PO SCH ×2 (08:31→21:24)
[2019-12-02] MEDS: PHENOBARBITAL 30 MG/7.5 ML LIQUID UDC GT SCH ×2 (08:31→21:23)
[2019-12-02] MEDS: VANCOMYCIN FOR PO/GT/NG USE GT SCH ×4 (08:31→21:23)
[2019-12-02] MEDS: COD LIVER OIL/ZINC OXIDE OINT 113 GM TUBE TP SCH ×2 (08:33→21:24)
[2019-12-02] MEDS: NEOMY/BACITRA/POLYMYXIN B OINT UD PACKET TP SCH ×2 (08:33→21:24)
[2019-12-02] MEDS: HYDROGEN PEROXIDE 3% 118 ML BOTTLE TOP SCH ×2 (09:00→19:10)
[2019-12-02] MEDS: VITAL AF 1.2 1,000 ML LIQUID GT PRN (15:21)
--- NOTE | 2019-12-02 19:21 | NUR ---
Kristine [employer] aware pt has a temp of 100.2,Amikacin is on hold due to increase amikacin trough result,amikacin random will be done tomorrow morning,continue on vancomycin , no new orders.
[2019-12-02 20:06] VITALS: BP 118/71
[2019-12-02] MEDS: MAGNESIUM OXIDE 400 MG TABLET GT SCH (21:22)
[2019-12-02] MEDS: MULTIVIT, IRON, MIN NO. 8, FA TABLET GT SCH (21:23)
[2019-12-03] MEDS: OMEPRAZOLE 40MG GT SCH (05:58)
[2019-12-03 07:49] LABS: CREATININE 0.8 mg/dL (0.6-1.3)
[2019-12-03] MEDS: PHENOBARBITAL 30 MG/7.5 ML LIQUID UDC GT SCH ×2 (09:00→21:27)
[2019-12-03] MEDS: DIAZEPAM 5 MG TABLET GT SCH ×2 (09:00→21:29)
[2019-12-03] MEDS: VANCOMYCIN FOR PO/GT/NG USE GT SCH ×4 (09:00→21:30)
[2019-12-03] MEDS: ASPIRIN 81 MG TAB.CHEW GT SCH (09:46)
[2019-12-03] MEDS: AMIODARONE HCL 200 MG TABLET GT SCH (09:46)
[2019-12-03] MEDS: levETIRAcetam 500 MG/5 ML LIQUID UDC GT SCH ×2 (09:48→21:27)
[2019-12-03] MEDS: METOPROLOL TARTRATE 25 MG TABLET GT SCH ×2 (09:48→21:27)
[2019-12-03] MEDS: HYDROGEN PEROXIDE 3% 118 ML BOTTLE TOP SCH ×2 (09:50→18:47)
[2019-12-03] MEDS: COD LIVER OIL/ZINC OXIDE OINT 113 GM TUBE TP SCH ×2 (09:50→21:31)
[2019-12-03] MEDS: NEOMY/BACITRA/POLYMYXIN B OINT UD PACKET TP SCH ×2 (09:52→21:31)
[2019-12-03] MEDS: ASCORBIC ACID 500 MG TABLET PO SCH ×2 (09:54→21:30)
[2019-12-03 10:47] VITALS: BP 103/64
[2019-12-03] MEDS: AMIKACIN 400 MG in IV DEXTROSE 5% 100 ML IV SCH (19:30)
--- NOTE | 2019-12-03 19:41 | NUR ---
MELODY GOOD NP AND REVIEWED LABS, CULTURES AND ASSESSMENT WITH HER. NEW ORDER GIVEN TO CONTINUE AMIKACIN FOR A TOTAL OF 7 DAYS. NOTED AND CARRIED OUT.
[2019-12-03 20:09] VITALS: BP 126/70
[2019-12-03] MEDS: MAGNESIUM OXIDE 400 MG TABLET GT SCH (21:27)
[2019-12-03] MEDS: MULTIVIT, IRON, MIN NO. 8, FA TABLET GT SCH (21:27)
[2019-12-04] MEDS: VITAL AF 1.2 1,000 ML LIQUID GT PRN (03:58)
[2019-12-04] MEDS: OMEPRAZOLE 40MG GT SCH (06:06)
[2019-12-04] MEDS: AMIKACIN 400 MG in IV DEXTROSE 5% 100 ML IV SCH ×2 (06:31→19:01)
[2019-12-04] MEDS: ASPIRIN 81 MG TAB.CHEW GT SCH (08:08)
[2019-12-04] MEDS: levETIRAcetam 500 MG/5 ML LIQUID UDC GT SCH ×2 (08:09→21:35)
[2019-12-04] MEDS: METOPROLOL TARTRATE 25 MG TABLET GT SCH ×2 (08:09→21:36)
[2019-12-04] MEDS: AMIODARONE HCL 200 MG TABLET GT SCH (08:09)
[2019-12-04] MEDS: DIAZEPAM 5 MG TABLET GT SCH ×2 (08:10→21:44)
[2019-12-04] MEDS: PHENOBARBITAL 30 MG/7.5 ML LIQUID UDC GT SCH ×2 (08:10→21:47)
[2019-12-04] MEDS: ASCORBIC ACID 500 MG TABLET PO SCH ×2 (08:13→21:38)
[2019-12-04] MEDS: COD LIVER OIL/ZINC OXIDE OINT 113 GM TUBE TP SCH ×2 (08:13→21:38)
[2019-12-04] MEDS: VANCOMYCIN FOR PO/GT/NG USE GT SCH ×4 (08:13→21:47)
[2019-12-04] MEDS: NEOMY/BACITRA/POLYMYXIN B OINT UD PACKET TP SCH ×2 (08:13→21:38)
[2019-12-04] MEDS: HYDROGEN PEROXIDE 3% 118 ML BOTTLE TOP SCH ×2 (09:36→21:28)
[2019-12-04 10:49] VITALS: BP 104/63
[2019-12-04 20:02] VITALS: BP 123/74
[2019-12-04] MEDS: MULTIVIT, IRON, MIN NO. 8, FA TABLET GT SCH (21:37)
[2019-12-04] MEDS: MAGNESIUM OXIDE 400 MG TABLET GT SCH (21:37)
[2019-12-05] MEDS: ACETAMINOPHEN 650 MG/20 ML UDC- SA PATIENTS-FEVER ONLY GT PRN (01:08)
[2019-12-05] MEDS: VITAL AF 1.2 1,000 ML LIQUID GT PRN (01:21)
--- NOTE | 2019-12-05 01:51 | NUR ---
continue on amikacin 400mg iv q 12hrs for fever, no adverse reaction noted, femoral triple line flushed per protocol.
[2019-12-05] MEDS: OMEPRAZOLE 40MG GT SCH (06:03)
[2019-12-05] MEDS: AMIKACIN 400 MG in IV DEXTROSE 5% 100 ML IV SCH ×2 (06:31→18:32)
[2019-12-05 08:00] VITALS: BP 109/65
[2019-12-05] MEDS: NEOMY/BACITRA/POLYMYXIN B OINT UD PACKET TP SCH ×2 (08:12→21:34)
[2019-12-05] MEDS: levETIRAcetam 500 MG/5 ML LIQUID UDC GT SCH ×2 (08:12→21:31)
[2019-12-05] MEDS: VANCOMYCIN FOR PO/GT/NG USE GT SCH ×4 (08:12→21:40)
[2019-12-05] MEDS: METOPROLOL TARTRATE 25 MG TABLET GT SCH ×2 (08:12→21:00)
[2019-12-05] MEDS: DIAZEPAM 5 MG TABLET GT SCH ×2 (08:12→21:33)
[2019-12-05] MEDS: AMIODARONE HCL 200 MG TABLET GT SCH (08:12)
[2019-12-05] MEDS: ASCORBIC ACID 500 MG TABLET PO SCH ×2 (08:12→21:33)
[2019-12-05] MEDS: PHENOBARBITAL 30 MG/7.5 ML LIQUID UDC GT SCH ×2 (08:12→21:33)
[2019-12-05] MEDS: COD LIVER OIL/ZINC OXIDE OINT 113 GM TUBE TP SCH ×2 (08:12→21:34)
[2019-12-05] MEDS: ASPIRIN 81 MG TAB.CHEW GT SCH (08:12)
[2019-12-05] MEDS: HYDROGEN PEROXIDE 3% 118 ML BOTTLE TOP SCH ×2 (09:00→21:00)
--- NOTE | 2019-12-05 19:15 | NUR ---
Continue on ivatb,Amikacin ivatb,no adverse reaction noted.r femoral triple lumen intact ,blisters noted around the site,cover with dressing.
[2019-12-05 19:54] VITALS: BP 88/54
[2019-12-05 20:26] VITALS: BP 98/65
[2019-12-05] MEDS: MULTIVIT, IRON, MIN NO. 8, FA TABLET GT SCH (21:33)
[2019-12-05] MEDS: MAGNESIUM OXIDE 400 MG TABLET GT SCH (21:33)
--- NOTE | 2019-12-05 22:48 | NUR ---
Voss catheter was dislodged. Reinserted a new voss catheter fr. 16. Patent and intact. Draining well with yellow colored urine. Continue to monitor.
[2019-12-06] MEDS: VITAL AF 1.2 1,000 ML LIQUID GT PRN ×2 (01:18→22:06)
[2019-12-06] MEDS: OMEPRAZOLE 40MG GT SCH (06:13)
--- NOTE | 2019-12-06 06:13 | NUR ---
CONTINUE ON AMIKACIN 400MG IV FOR FEVER, NO ADVERSE REACTION NOTED, AFEBRILE, NO RESPIRATORY DISTRESS NOTED.
[2019-12-06] MEDS: AMIKACIN 400 MG in IV DEXTROSE 5% 100 ML IV SCH ×2 (06:30→19:00)
[2019-12-06 08:07] VITALS: BP 111/66
[2019-12-06] MEDS: HYDROGEN PEROXIDE 3% 118 ML BOTTLE TOP SCH ×2 (08:40→21:56)
[2019-12-06] MEDS: ASPIRIN 81 MG TAB.CHEW GT SCH (08:47)
[2019-12-06] MEDS: AMIODARONE HCL 200 MG TABLET GT SCH (08:48)
[2019-12-06] MEDS: levETIRAcetam 500 MG/5 ML LIQUID UDC GT SCH ×2 (08:48→21:52)
[2019-12-06] MEDS: METOPROLOL TARTRATE 25 MG TABLET GT SCH ×2 (08:49→21:57)
[2019-12-06] MEDS: PHENOBARBITAL 30 MG/7.5 ML LIQUID UDC GT SCH ×2 (08:49→21:52)
[2019-12-06] MEDS: DIAZEPAM 5 MG TABLET GT SCH ×2 (08:49→21:52)
[2019-12-06] MEDS: ASCORBIC ACID 500 MG TABLET PO SCH ×2 (08:53→21:56)
[2019-12-06] MEDS: VANCOMYCIN FOR PO/GT/NG USE GT SCH ×4 (08:53→21:56)
[2019-12-06] MEDS: COD LIVER OIL/ZINC OXIDE OINT 113 GM TUBE TP SCH ×2 (08:53→21:57)
[2019-12-06] MEDS: NEOMY/BACITRA/POLYMYXIN B OINT UD PACKET TP SCH ×2 (08:54→21:57)
[2019-12-06 10:43] VITALS: BP 111/66
--- NOTE | 2019-12-06 19:18 | NUR ---
Last dose of Amikacin in progress ,no adverse reaction noted,r femoral triple lumen intact,noted blisters around.site.
[2019-12-06] MEDS: MULTIVIT, IRON, MIN NO. 8, FA TABLET GT SCH (21:52)
[2019-12-06] MEDS: MAGNESIUM OXIDE 400 MG TABLET GT SCH (21:52)
[2019-12-06 22:45] VITALS: BP 130/82
[2019-12-07] MEDS: OMEPRAZOLE 40MG GT SCH (05:21)
[2019-12-07 08:06] VITALS: BP 108/65
[2019-12-07] MEDS: METOPROLOL TARTRATE 25 MG TABLET GT SCH ×2 (08:14→21:25)
[2019-12-07] MEDS: AMIODARONE HCL 200 MG TABLET GT SCH (08:14)
[2019-12-07] MEDS: levETIRAcetam 500 MG/5 ML LIQUID UDC GT SCH ×2 (08:14→21:24)
[2019-12-07] MEDS: VANCOMYCIN FOR PO/GT/NG USE GT SCH ×4 (08:14→21:26)
[2019-12-07] MEDS: ASPIRIN 81 MG TAB.CHEW GT SCH (08:14)
[2019-12-07] MEDS: DIAZEPAM 5 MG TABLET GT SCH ×2 (08:14→21:25)
[2019-12-07] MEDS: PHENOBARBITAL 30 MG/7.5 ML LIQUID UDC GT SCH ×2 (08:14→21:25)
[2019-12-07] MEDS: COD LIVER OIL/ZINC OXIDE OINT 113 GM TUBE TP SCH ×2 (08:14→21:26)
[2019-12-07] MEDS: ASCORBIC ACID 500 MG TABLET PO SCH ×2 (08:14→21:25)
[2019-12-07] MEDS: NEOMY/BACITRA/POLYMYXIN B OINT UD PACKET TP SCH ×2 (08:15→21:26)
[2019-12-07] MEDS: HYDROGEN PEROXIDE 3% 118 ML BOTTLE TOP SCH ×2 (09:12→21:36)
[2019-12-07] MEDS: VITAL AF 1.2 1,000 ML LIQUID GT PRN (18:23)
--- NOTE | 2019-12-07 20:00 | NUR ---
SEEN BY FLORENTINO RUIZ WITH NNO.
[2019-12-07 20:28] VITALS: BP 110/67
[2019-12-07] MEDS: MAGNESIUM OXIDE 400 MG TABLET GT SCH (21:25)
[2019-12-07] MEDS: MULTIVIT, IRON, MIN NO. 8, FA TABLET GT SCH (21:25)
[2019-12-08] MEDS: OMEPRAZOLE 40MG GT SCH (05:08)
[2019-12-08 07:44] LABS: BASOPHILS # (AUTO) 0.1 K/uL (0.0-8.0); EOSINOPHILS # (AUTO) 0.1 K/uL (0.0-0.7); EOSINOPHILS % (AUTO) 2.7 % (0.0-7.0); HEMATOCRIT 21.1 % (31.2-41.9); LYMPHOCYTES # (AUTO) 0.9 K/uL (20.0-40.0); LYMPHOCYTES % (AUTO) 17.4 % (20.5-51.5); MEAN CORPUSCULAR HEMOGLOBIN 28.7 uug (24.7-32.8); MEAN CORPUSCULAR HGB CONC 34 g/dL (32.3-35.6); MEAN CORPUSCULAR VOLUME 85.4 fL (75.5-95.3); MONOCYTES # (AUTO) 0.6 K/uL (2.0-10.0); MONOCYTES % (AUTO) 11.9 % (0.0-11.0); NEUTROPHILS # (AUTO) 3.4 K/uL (1.8-8.9); PLATELET COUNT (AUTO) 310 K/uL (179-408); WHITE BLOOD COUNT (AUTO) 5.1 K/uL (3.8-11.8)
[2019-12-08 07:47] LABS: HEMOGLOBIN 7.1 g/dL (10.9-14.3); RED BLOOD CELL COUNT(AUTO) 2.47 MIL/uL (3.63-4.92)
[2019-12-08 08:04] LABS: BILIRUBIN,TOTAL 0.1 mg/dL (0.2-1.0); CREATININE 0.8 mg/dL (0.6-1.3); POTASSIUM 4.7 mmol/L (3.5-5.1); TOTAL PROTEIN, SERUM 7.8 g/dL (6.4-8.2)
[2019-12-08 08:09] VITALS: BP 104/64
[2019-12-08] MEDS: AMIODARONE HCL 200 MG TABLET GT SCH (08:53)
[2019-12-08] MEDS: ASPIRIN 81 MG TAB.CHEW GT SCH (08:53)
[2019-12-08] MEDS: levETIRAcetam 500 MG/5 ML LIQUID UDC GT SCH ×2 (08:54→21:49)
[2019-12-08] MEDS: DIAZEPAM 5 MG TABLET GT SCH ×2 (08:55→21:50)
[2019-12-08] MEDS: METOPROLOL TARTRATE 25 MG TABLET GT SCH ×2 (08:55→21:49)
[2019-12-08] MEDS: PHENOBARBITAL 30 MG/7.5 ML LIQUID UDC GT SCH ×2 (08:55→21:50)
[2019-12-08] MEDS: ASCORBIC ACID 500 MG TABLET PO SCH ×2 (08:55→21:50)
[2019-12-08] MEDS: VANCOMYCIN FOR PO/GT/NG USE GT SCH (08:55)
[2019-12-08] MEDS: NEOMY/BACITRA/POLYMYXIN B OINT UD PACKET TP SCH ×2 (08:56→21:50)
[2019-12-08] MEDS: COD LIVER OIL/ZINC OXIDE OINT 113 GM TUBE TP SCH ×2 (08:56→21:50)
[2019-12-08] MEDS: HYDROGEN PEROXIDE 3% 118 ML BOTTLE TOP SCH ×2 (09:00→21:38)
[2019-12-08 10:38] VITALS: BP 104/64
[2019-12-08 20:20] VITALS: BP 110/65
[2019-12-08] MEDS: MAGNESIUM OXIDE 400 MG TABLET GT SCH (21:49)
[2019-12-08] MEDS: MULTIVIT, IRON, MIN NO. 8, FA TABLET GT SCH (21:50)
[2019-12-08] MEDS: VITAL AF 1.2 1,000 ML LIQUID GT PRN (21:50)
[2019-12-09] MEDS: OMEPRAZOLE 40MG GT SCH (05:03)
[2019-12-09] MEDS: levETIRAcetam 500 MG/5 ML LIQUID UDC GT SCH ×2 (08:08→21:35)
[2019-12-09] MEDS: ASPIRIN 81 MG TAB.CHEW GT SCH (08:08)
[2019-12-09] MEDS: AMIODARONE HCL 200 MG TABLET GT SCH (08:08)
[2019-12-09] MEDS: PHENOBARBITAL 30 MG/7.5 ML LIQUID UDC GT SCH ×2 (08:09→21:36)
[2019-12-09] MEDS: METOPROLOL TARTRATE 25 MG TABLET GT SCH ×2 (08:09→21:35)
[2019-12-09] MEDS: ASCORBIC ACID 500 MG TABLET PO SCH ×2 (08:09→21:36)
[2019-12-09] MEDS: DIAZEPAM 5 MG TABLET GT SCH ×2 (08:09→21:36)
[2019-12-09] MEDS: COD LIVER OIL/ZINC OXIDE OINT 113 GM TUBE TP SCH ×2 (08:10→21:36)
[2019-12-09] MEDS: NEOMY/BACITRA/POLYMYXIN B OINT UD PACKET TP SCH ×3 (08:10→21:37)
[2019-12-09] MEDS: HYDROGEN PEROXIDE 3% 118 ML BOTTLE TOP SCH ×2 (09:03→21:00)
[2019-12-09 11:04] VITALS: BP 118/63
--- NOTE | 2019-12-09 17:00 | NUR ---
Seen and examined by Dr Landrum scout [employer] with new orders noted.
--- NOTE | 2019-12-09 18:20 | NUR ---
Seen and examined by Dr Lora with new orders noted and carried out.
[2019-12-09] MEDS: VITAL AF 1.2 1,000 ML LIQUID GT PRN (21:30)
[2019-12-09] MEDS: MAGNESIUM OXIDE 400 MG TABLET GT SCH (21:36)
[2019-12-09] MEDS: MULTIVIT, IRON, MIN NO. 8, FA TABLET GT SCH (21:36)
[2019-12-09 21:46] VITALS: BP 103/53
--- NOTE | 2019-12-10 03:30 | NUR ---
Patient is afebrile, still on contact isolation for C-diff, noted with watery loose stools in the rectal bag, good jeny care rendered, kept clean and comfortable.
[2019-12-10] MEDS: NORMAL SALINE FLUSH 10 ML DISP.SYRIN IV SCH ×3 (03:44→21:00)
[2019-12-10] MEDS: OMEPRAZOLE 40MG GT SCH (05:38)
[2019-12-10 07:43] VITALS: BP 101/57
[2019-12-10] MEDS: ASPIRIN 81 MG TAB.CHEW GT SCH (08:47)
[2019-12-10] MEDS: levETIRAcetam 500 MG/5 ML LIQUID UDC GT SCH ×2 (08:48→21:31)
[2019-12-10] MEDS: AMIODARONE HCL 200 MG TABLET GT SCH (08:48)
[2019-12-10] MEDS: ASCORBIC ACID 500 MG TABLET PO SCH ×2 (08:49→21:32)
[2019-12-10] MEDS: METOPROLOL TARTRATE 25 MG TABLET GT SCH ×2 (08:49→21:32)
[2019-12-10] MEDS: PHENOBARBITAL 30 MG/7.5 ML LIQUID UDC GT SCH ×2 (08:49→21:32)
[2019-12-10] MEDS: DIAZEPAM 5 MG TABLET GT SCH ×2 (08:49→21:32)
[2019-12-10] MEDS: NEOMY/BACITRA/POLYMYXIN B OINT UD PACKET TP SCH ×4 (08:50→21:33)
[2019-12-10] MEDS: COD LIVER OIL/ZINC OXIDE OINT 113 GM TUBE TP SCH ×2 (08:50→21:32)
[2019-12-10] MEDS: HYDROGEN PEROXIDE 3% 118 ML BOTTLE TOP SCH ×2 (09:00→21:35)
--- NOTE | 2019-12-10 11:59 | NUR ---
NEW ORDERS CARRIED OUT FROM FLASH Mclaughlin
--- NOTE | 2019-12-10 16:54 | NUR ---
NEW ORDER WAS CARRIED OUT FROM FLORENTINO Richard.PMike(I.D) .
[2019-12-10 20:12] VITALS: BP 127/79
[2019-12-10] MEDS: MULTIVIT, IRON, MIN NO. 8, FA TABLET GT SCH (21:32)
[2019-12-10] MEDS: MAGNESIUM OXIDE 400 MG TABLET GT SCH (21:32)
[2019-12-10] MEDS: VITAL AF 1.2 1,000 ML LIQUID GT PRN (21:33)
--- NOTE | 2019-12-11 02:03 | NUR ---
flushed right femoral central line flushed per protocol, afebrile, continue on contact isolation for c.diff.
[2019-12-11] MEDS: OMEPRAZOLE 40MG GT SCH (05:10)
[2019-12-11 08:00] VITALS: BP 103/66
[2019-12-11] MEDS: METOPROLOL TARTRATE 25 MG TABLET GT SCH ×2 (09:00→21:14)
[2019-12-11] MEDS: NORMAL SALINE FLUSH 10 ML DISP.SYRIN IV SCH ×2 (09:00→21:00)
[2019-12-11] MEDS: levETIRAcetam 500 MG/5 ML LIQUID UDC GT SCH ×2 (09:00→21:14)
[2019-12-11] MEDS: PHENOBARBITAL 30 MG/7.5 ML LIQUID UDC GT SCH ×2 (09:00→21:14)
[2019-12-11] MEDS: HYDROGEN PEROXIDE 3% 118 ML BOTTLE TOP SCH ×2 (09:00→20:50)
[2019-12-11] MEDS: DIAZEPAM 5 MG TABLET GT SCH ×2 (09:00→21:15)
[2019-12-11] MEDS: NEOMY/BACITRA/POLYMYXIN B OINT UD PACKET TP SCH ×4 (09:53→21:15)
[2019-12-11] MEDS: COD LIVER OIL/ZINC OXIDE OINT 113 GM TUBE TP SCH ×2 (09:54→21:15)
[2019-12-11] MEDS: ASCORBIC ACID 500 MG TABLET PO SCH ×2 (09:54→21:15)
[2019-12-11] MEDS: ASPIRIN 81 MG TAB.CHEW GT SCH (09:55)
[2019-12-11] MEDS: AMIODARONE HCL 200 MG TABLET GT SCH (09:55)
[2019-12-11 11:34] VITALS: BP 103/66
--- NOTE | 2019-12-11 15:25 | NUR ---
SPECIMEN FOR STOOL FOR C. DIFF WAS COLLECTED AND SENT TO LAB AFTER COMPLETING MANDATORY SUPPLEMENTARY DOCUMENTATION IN [employer].
[2019-12-11] MEDS: VITAL AF 1.2 1,000 ML LIQUID GT PRN (16:48)
[2019-12-11 20:00] VITALS: BP 110/70
[2019-12-11] MEDS: MAGNESIUM OXIDE 400 MG TABLET GT SCH (21:14)
[2019-12-11] MEDS: MULTIVIT, IRON, MIN NO. 8, FA TABLET GT SCH (21:15)
--- NOTE | 2019-12-11 21:39 | NUR ---
Temperature is 99.3, no signs of any distress, connected to vent, 02 sat @ 99%, gt feeding tolerating well, no nausea/ vomiting noted. Garland catheter is draining well to yellow urine, good jeny care rendered, notes with soft stool, kept clean and comfortable. will continue monitor.
[2019-12-12] MEDS: OMEPRAZOLE 40MG GT SCH (06:04)
[2019-12-12] MEDS: HYDROGEN PEROXIDE 3% 118 ML BOTTLE TOP SCH ×2 (08:46→21:54)
[2019-12-12] MEDS: NORMAL SALINE FLUSH 10 ML DISP.SYRIN IV SCH ×2 (09:00→21:00)
[2019-12-12] MEDS: levETIRAcetam 500 MG/5 ML LIQUID UDC GT SCH ×2 (09:10→20:40)
[2019-12-12] MEDS: AMIODARONE HCL 200 MG TABLET GT SCH (09:10)
[2019-12-12] MEDS: ASPIRIN 81 MG TAB.CHEW GT SCH (09:10)
[2019-12-12] MEDS: DIAZEPAM 5 MG TABLET GT SCH ×2 (09:11→20:41)
[2019-12-12] MEDS: METOPROLOL TARTRATE 25 MG TABLET GT SCH ×2 (09:11→20:41)
[2019-12-12] MEDS: PHENOBARBITAL 30 MG/7.5 ML LIQUID UDC GT SCH ×2 (09:11→20:41)
[2019-12-12] MEDS: NEOMY/BACITRA/POLYMYXIN B OINT UD PACKET TP SCH ×4 (09:12→20:41)
[2019-12-12] MEDS: COD LIVER OIL/ZINC OXIDE OINT 113 GM TUBE TP SCH ×2 (09:12→20:41)
[2019-12-12] MEDS: ASCORBIC ACID 500 MG TABLET PO SCH ×2 (09:22→20:41)
[2019-12-12 12:16] VITALS: BP 107/65
[2019-12-12] MEDS: VITAL AF 1.2 1,000 ML LIQUID GT PRN (12:56)
[2019-12-12 20:00] VITALS: BP 111/70
[2019-12-12] MEDS: MAGNESIUM OXIDE 400 MG TABLET GT SCH (20:41)
[2019-12-12] MEDS: MULTIVIT, IRON, MIN NO. 8, FA TABLET GT SCH (20:41)
[2019-12-13] MEDS: OMEPRAZOLE 40MG GT SCH (05:02)
[2019-12-13 08:09] VITALS: BP 109/65
[2019-12-13] MEDS: ASPIRIN 81 MG TAB.CHEW GT SCH (08:32)
[2019-12-13] MEDS: AMIODARONE HCL 200 MG TABLET GT SCH (08:33)
[2019-12-13] MEDS: levETIRAcetam 500 MG/5 ML LIQUID UDC GT SCH ×2 (08:33→20:47)
[2019-12-13] MEDS: ASCORBIC ACID 500 MG TABLET PO SCH ×2 (08:34→20:48)
[2019-12-13] MEDS: COD LIVER OIL/ZINC OXIDE OINT 113 GM TUBE TP SCH ×2 (08:34→20:48)
[2019-12-13] MEDS: PHENOBARBITAL 30 MG/7.5 ML LIQUID UDC GT SCH ×2 (08:34→20:48)
[2019-12-13] MEDS: DIAZEPAM 5 MG TABLET GT SCH ×2 (08:34→20:48)
[2019-12-13] MEDS: NEOMY/BACITRA/POLYMYXIN B OINT UD PACKET TP SCH ×4 (08:34→20:49)
[2019-12-13] MEDS: METOPROLOL TARTRATE 25 MG TABLET GT SCH ×2 (08:34→20:48)
[2019-12-13] MEDS: HYDROGEN PEROXIDE 3% 118 ML BOTTLE TOP SCH ×2 (08:42→21:25)
[2019-12-13] MEDS: NORMAL SALINE FLUSH 10 ML DISP.SYRIN IV SCH ×2 (09:00→21:00)
[2019-12-13 20:39] VITALS: BP 121/77
[2019-12-13] MEDS: MAGNESIUM OXIDE 400 MG TABLET GT SCH (20:48)
[2019-12-13] MEDS: MULTIVIT, IRON, MIN NO. 8, FA TABLET GT SCH (20:48)
[2019-12-14] MEDS: OMEPRAZOLE 40MG GT SCH (05:13)
[2019-12-14 07:40] LABS: BASOPHILS # (AUTO) 0.1 K/uL (0.0-8.0); BASOPHILS % (AUTO) 0.9 % (0.0-2.0); EOSINOPHILS # (AUTO) 0.2 K/uL (0.0-0.7); EOSINOPHILS % (AUTO) 3.1 % (0.0-7.0); LYMPHOCYTES # (AUTO) 1.1 K/uL (20.0-40.0); LYMPHOCYTES % (AUTO) 19.1 % (20.5-51.5); MEAN CORPUSCULAR HEMOGLOBIN 29.2 uug (24.7-32.8); MEAN CORPUSCULAR HGB CONC 35 g/dL (32.3-35.6); MEAN CORPUSCULAR VOLUME 83.9 fL (75.5-95.3); MONOCYTES # (AUTO) 0.5 K/uL (2.0-10.0); MONOCYTES % (AUTO) 7.8 % (0.0-11.0); NEUTROPHILS # (AUTO) 4.1 K/uL (1.8-8.9); NEUTROPHILS % (AUTO) 69.1 % (38.5-71.5); PLATELET COUNT (AUTO) 257 K/uL (179-408); WHITE BLOOD COUNT (AUTO) 5.9 K/uL (3.8-11.8)
[2019-12-14 07:45] LABS: BILIRUBIN,TOTAL 0.2 mg/dL (0.2-1.0); CREATININE 0.8 mg/dL (0.6-1.3); POTASSIUM 4.6 mmol/L (3.5-5.1); TOTAL PROTEIN, SERUM 7.8 g/dL (6.4-8.2)
[2019-12-14 07:52] LABS: RED BLOOD CELL COUNT(AUTO) 2.35 MIL/uL (3.63-4.92)
[2019-12-14 07:54] LABS: HEMATOCRIT 19.8 % (31.2-41.9); HEMOGLOBIN 6.9 g/dL (10.9-14.3)
[2019-12-14 07:58] VITALS: BP 122/67
--- NOTE | 2019-12-14 08:00 | NUR ---
RY BARROSO PAGED RE:HGB6.9 AND HCT 19.8.
[2019-12-14] MEDS: ASPIRIN 81 MG TAB.CHEW GT SCH (08:10)
[2019-12-14] MEDS: AMIODARONE HCL 200 MG TABLET GT SCH (08:10)
[2019-12-14] MEDS: levETIRAcetam 500 MG/5 ML LIQUID UDC GT SCH ×2 (08:12→21:36)
[2019-12-14] MEDS: DIAZEPAM 5 MG TABLET GT SCH ×2 (08:12→21:37)
[2019-12-14] MEDS: NEOMY/BACITRA/POLYMYXIN B OINT UD PACKET TP SCH ×3 (08:12→21:37)
[2019-12-14] MEDS: ASCORBIC ACID 500 MG TABLET PO SCH ×2 (08:12→21:37)
[2019-12-14] MEDS: METOPROLOL TARTRATE 25 MG TABLET GT SCH ×2 (08:12→21:37)
[2019-12-14] MEDS: PHENOBARBITAL 30 MG/7.5 ML LIQUID UDC GT SCH ×2 (08:12→21:37)
[2019-12-14] MEDS: COD LIVER OIL/ZINC OXIDE OINT 113 GM TUBE TP SCH ×2 (08:12→21:37)
[2019-12-14] MEDS: HYDROGEN PEROXIDE 3% 118 ML BOTTLE TOP SCH ×2 (09:00→21:31)
[2019-12-14 09:17] LABS: EOSINOPHILS % (MANUAL) 3 % (0-8); LYMPHOCYTES % (MANUAL) 21 % (20-40); MONOCYTES % (MANUAL) 4 % (2-10); NEUTROPHILS % (MANUAL) 72 % (42-75)
--- NOTE | 2019-12-14 09:49 | NUR ---
FLASH Mclaughlin AWARE OG HGB6.9 AND WILL SEE PT. LATER .
--- NOTE | 2019-12-14 14:05 | NUR ---
NEW ORDER CARRIED OUT FROM FLORENTINO ISIDRO N.P I.D. TO D/C RT. GROIN CENTRAL LINE,REMOVED INTACT AND PRESSURE APPLIED X 5 MIN.AND NO ACTIVE LOCAL BLEEDING,AND LOCAL DRESSING APPLIED.
--- NOTE | 2019-12-14 20:26 | NUR ---
Discontinued NS IV flushes to right femoral central line re: Centra line was discontinued today.
[2019-12-14 20:30] VITALS: BP 120/70
[2019-12-14] MEDS: MAGNESIUM OXIDE 400 MG TABLET GT SCH (21:37)
[2019-12-14] MEDS: MULTIVIT, IRON, MIN NO. 8, FA TABLET GT SCH (21:37)
--- NOTE | 2019-12-15 01:06 | NUR ---
Afebrile, no signs of any distress noted, s/p right femoral central line removal, no bleeding noted from old central line site, voss catheter draining well, no hematuria noted, good jeny care rendered, kept clean and comfortable.
[2019-12-15] MEDS: OMEPRAZOLE 40MG GT SCH (05:12)
[2019-12-15 07:35] LABS: BASOPHILS % (AUTO) 0.7 % (0.0-2.0); EOSINOPHILS # (AUTO) 0.2 K/uL (0.0-0.7); EOSINOPHILS % (AUTO) 3.3 % (0.0-7.0); HEMATOCRIT 21.4 % (31.2-41.9); LYMPHOCYTES % (AUTO) 16.1 % (20.5-51.5); MEAN CORPUSCULAR HGB CONC 35 g/dL (32.3-35.6); MEAN CORPUSCULAR VOLUME 84.1 fL (75.5-95.3); MONOCYTES # (AUTO) 0.5 K/uL (2.0-10.0); MONOCYTES % (AUTO) 7.6 % (0.0-11.0); NEUTROPHILS # (AUTO) 4.5 K/uL (1.8-8.9); NEUTROPHILS % (AUTO) 72.3 % (38.5-71.5); PLATELET COUNT (AUTO) 234 K/uL (179-408); RED BLOOD CELL COUNT(AUTO) 2.54 MIL/uL (3.63-4.92); WHITE BLOOD COUNT (AUTO) 6.2 K/uL (3.8-11.8)
[2019-12-15 07:40] LABS: HEMOGLOBIN 7.4 g/dL (10.9-14.3)
[2019-12-15 08:10] LABS: CREATININE 0.7 mg/dL (0.6-1.3); POTASSIUM 4.2 mmol/L (3.5-5.1)
[2019-12-15] MEDS: ASPIRIN 81 MG TAB.CHEW GT SCH (08:44)
[2019-12-15] MEDS: AMIODARONE HCL 200 MG TABLET GT SCH (09:07)
[2019-12-15] MEDS: levETIRAcetam 500 MG/5 ML LIQUID UDC GT SCH ×2 (09:08→20:51)
[2019-12-15] MEDS: METOPROLOL TARTRATE 25 MG TABLET GT SCH ×2 (09:10→20:52)
[2019-12-15] MEDS: PHENOBARBITAL 30 MG/7.5 ML LIQUID UDC GT SCH ×2 (09:11→20:52)
[2019-12-15] MEDS: COD LIVER OIL/ZINC OXIDE OINT 113 GM TUBE TP SCH ×2 (09:12→20:53)
[2019-12-15] MEDS: ASCORBIC ACID 500 MG TABLET PO SCH ×2 (09:12→20:53)
[2019-12-15] MEDS: DIAZEPAM 5 MG TABLET GT SCH ×2 (09:12→20:53)
[2019-12-15] MEDS: NEOMY/BACITRA/POLYMYXIN B OINT UD PACKET TP SCH ×2 (09:13→20:53)
[2019-12-15] MEDS: HYDROGEN PEROXIDE 3% 118 ML BOTTLE TOP SCH ×2 (09:59→20:40)
[2019-12-15] MEDS: VITAL AF 1.2 1,000 ML LIQUID GT PRN (12:40)
[2019-12-15 20:00] VITALS: BP 135/78
[2019-12-15] MEDS: MAGNESIUM OXIDE 400 MG TABLET GT SCH (20:52)
[2019-12-15] MEDS: MULTIVIT, IRON, MIN NO. 8, FA TABLET GT SCH (20:52)
[2019-12-16] MEDS: OMEPRAZOLE 40MG GT SCH (05:11)
[2019-12-16] MEDS: HYDROGEN PEROXIDE 3% 118 ML BOTTLE TOP SCH ×2 (07:55→21:22)
[2019-12-16 08:00] VITALS: BP 118/66
[2019-12-16] MEDS: ASPIRIN 81 MG TAB.CHEW GT SCH (08:29)
[2019-12-16] MEDS: AMIODARONE HCL 200 MG TABLET GT SCH (08:30)
[2019-12-16] MEDS: levETIRAcetam 500 MG/5 ML LIQUID UDC GT SCH ×2 (08:31→21:19)
[2019-12-16] MEDS: METOPROLOL TARTRATE 25 MG TABLET GT SCH ×2 (08:32→21:20)
[2019-12-16] MEDS: PHENOBARBITAL 30 MG/7.5 ML LIQUID UDC GT SCH ×2 (08:33→21:31)
[2019-12-16] MEDS: ASCORBIC ACID 500 MG TABLET PO SCH ×2 (08:33→21:22)
[2019-12-16] MEDS: DIAZEPAM 5 MG TABLET GT SCH ×2 (08:33→21:31)
[2019-12-16] MEDS: COD LIVER OIL/ZINC OXIDE OINT 113 GM TUBE TP SCH ×2 (09:00→21:22)
[2019-12-16] MEDS: NEOMY/BACITRA/POLYMYXIN B OINT UD PACKET TP SCH ×2 (09:00→21:22)
[2019-12-16] MEDS: VITAL AF 1.2 1,000 ML LIQUID GT PRN (09:30)
[2019-12-16 20:00] VITALS: BP 109/68
[2019-12-16] MEDS: MAGNESIUM OXIDE 400 MG TABLET GT SCH (21:21)
[2019-12-16] MEDS: MULTIVIT, IRON, MIN NO. 8, FA TABLET GT SCH (21:21)
[2019-12-17] MEDS: OMEPRAZOLE 40MG GT SCH (06:16)
[2019-12-17 07:52] VITALS: BP 110/62
[2019-12-17] MEDS: ASPIRIN 81 MG TAB.CHEW GT SCH (08:46)
[2019-12-17] MEDS: AMIODARONE HCL 200 MG TABLET GT SCH (08:49)
[2019-12-17] MEDS: levETIRAcetam 500 MG/5 ML LIQUID UDC GT SCH ×2 (08:49→21:49)
[2019-12-17] MEDS: METOPROLOL TARTRATE 25 MG TABLET GT SCH ×2 (08:50→21:50)
[2019-12-17] MEDS: DIAZEPAM 5 MG TABLET GT SCH ×2 (08:51→21:51)
[2019-12-17] MEDS: ASCORBIC ACID 500 MG TABLET PO SCH ×2 (08:51→21:51)
[2019-12-17] MEDS: PHENOBARBITAL 30 MG/7.5 ML LIQUID UDC GT SCH ×2 (08:51→21:51)
[2019-12-17] MEDS: COD LIVER OIL/ZINC OXIDE OINT 113 GM TUBE TP SCH ×2 (09:00→21:51)
[2019-12-17] MEDS: NEOMY/BACITRA/POLYMYXIN B OINT UD PACKET TP SCH ×2 (09:45→21:51)
[2019-12-17] MEDS: HYDROGEN PEROXIDE 3% 118 ML BOTTLE TOP SCH ×2 (10:20→21:00)
--- NOTE | 2019-12-17 19:07 | NUR ---
SEEN AND EXAMINED BY DR. TOLBERT WITH NEW ORDERS. NOTED AND CARRIED OUT.
[2019-12-17 20:00] VITALS: BP 119/73
[2019-12-17] MEDS: MAGNESIUM OXIDE 400 MG TABLET GT SCH (21:50)
[2019-12-17] MEDS: MULTIVIT, IRON, MIN NO. 8, FA TABLET GT SCH (21:51)
[2019-12-18] MEDS: OMEPRAZOLE 40MG GT SCH (05:22)
[2019-12-18 07:45] VITALS: BP 105/67
[2019-12-18] MEDS: HYDROGEN PEROXIDE 3% 118 ML BOTTLE TOP SCH ×2 (08:21→21:00)
[2019-12-18] MEDS: levETIRAcetam 500 MG/5 ML LIQUID UDC GT SCH ×2 (08:21→20:55)
[2019-12-18] MEDS: AMIODARONE HCL 200 MG TABLET GT SCH (08:21)
[2019-12-18] MEDS: ASPIRIN 81 MG TAB.CHEW GT SCH (08:21)
[2019-12-18] MEDS: METOPROLOL TARTRATE 25 MG TABLET GT SCH ×2 (08:22→20:55)
[2019-12-18] MEDS: COD LIVER OIL/ZINC OXIDE OINT 113 GM TUBE TP SCH ×2 (08:23→20:56)
[2019-12-18] MEDS: PHENOBARBITAL 30 MG/7.5 ML LIQUID UDC GT SCH ×2 (08:23→20:56)
[2019-12-18] MEDS: DIAZEPAM 5 MG TABLET GT SCH ×2 (08:23→20:56)
[2019-12-18] MEDS: ASCORBIC ACID 500 MG TABLET PO SCH ×2 (08:23→20:56)
[2019-12-18] MEDS: NEOMY/BACITRA/POLYMYXIN B OINT UD PACKET TP SCH ×2 (08:24→20:56)
[2019-12-18] MEDS: VITAL AF 1.2 1,000 ML LIQUID GT PRN (13:20)
[2019-12-18 20:25] VITALS: BP 119/70
[2019-12-18] MEDS: MAGNESIUM OXIDE 400 MG TABLET GT SCH (20:56)
[2019-12-18] MEDS: MULTIVIT, IRON, MIN NO. 8, FA TABLET GT SCH (20:56)
[2019-12-19] MEDS: OMEPRAZOLE 40MG GT SCH (05:24)
[2019-12-19 08:04] VITALS: BP 99/66
[2019-12-19] MEDS: ASPIRIN 81 MG TAB.CHEW GT SCH (08:35)
[2019-12-19] MEDS: levETIRAcetam 500 MG/5 ML LIQUID UDC GT SCH ×2 (08:36→21:10)
[2019-12-19] MEDS: AMIODARONE HCL 200 MG TABLET GT SCH (08:36)
[2019-12-19] MEDS: METOPROLOL TARTRATE 25 MG TABLET GT SCH ×2 (08:36→21:10)
[2019-12-19] MEDS: PHENOBARBITAL 30 MG/7.5 ML LIQUID UDC GT SCH ×2 (08:37→21:10)
[2019-12-19] MEDS: NEOMY/BACITRA/POLYMYXIN B OINT UD PACKET TP SCH ×2 (08:37→21:10)
[2019-12-19] MEDS: ASCORBIC ACID 500 MG TABLET PO SCH ×2 (08:37→21:10)
[2019-12-19] MEDS: DIAZEPAM 5 MG TABLET GT SCH ×2 (08:37→21:10)
[2019-12-19] MEDS: COD LIVER OIL/ZINC OXIDE OINT 113 GM TUBE TP SCH ×2 (08:37→21:10)
[2019-12-19] MEDS: HYDROGEN PEROXIDE 3% 118 ML BOTTLE TOP SCH ×2 (08:49→22:00)
[2019-12-19] MEDS: MULTIVIT, IRON, MIN NO. 8, FA TABLET GT SCH (21:10)
[2019-12-19] MEDS: MAGNESIUM OXIDE 400 MG TABLET GT SCH (21:10)
[2019-12-19 22:40] VITALS: BP 125/60
[2019-12-20] MEDS: VITAL AF 1.2 1,000 ML LIQUID GT PRN (00:47)
[2019-12-20] MEDS: OMEPRAZOLE 40MG GT SCH (05:11)
[2019-12-20 07:54] VITALS: BP 119/72
[2019-12-20] MEDS: HYDROGEN PEROXIDE 3% 118 ML BOTTLE TOP SCH ×2 (08:15→21:43)
[2019-12-20] MEDS: ASPIRIN 81 MG TAB.CHEW GT SCH (09:52)
[2019-12-20] MEDS: levETIRAcetam 500 MG/5 ML LIQUID UDC GT SCH ×2 (09:53→21:46)
[2019-12-20] MEDS: AMIODARONE HCL 200 MG TABLET GT SCH (09:53)
[2019-12-20] MEDS: METOPROLOL TARTRATE 25 MG TABLET GT SCH ×2 (09:54→21:46)
[2019-12-20] MEDS: DIAZEPAM 5 MG TABLET GT SCH ×2 (09:54→21:47)
[2019-12-20] MEDS: NEOMY/BACITRA/POLYMYXIN B OINT UD PACKET TP SCH ×2 (09:54→21:48)
[2019-12-20] MEDS: ASCORBIC ACID 500 MG TABLET PO SCH ×2 (09:54→21:47)
[2019-12-20] MEDS: COD LIVER OIL/ZINC OXIDE OINT 113 GM TUBE TP SCH ×2 (09:54→21:47)
[2019-12-20] MEDS: PHENOBARBITAL 30 MG/7.5 ML LIQUID UDC GT SCH ×2 (09:54→21:47)
[2019-12-20] MEDS: MAGNESIUM OXIDE 400 MG TABLET GT SCH (21:46)
[2019-12-20] MEDS: MULTIVIT, IRON, MIN NO. 8, FA TABLET GT SCH (21:47)
[2019-12-20 22:50] VITALS: BP 118/69
[2019-12-21] MEDS: OMEPRAZOLE 40MG GT SCH (06:51)
[2019-12-21 07:37] VITALS: BP 110/71
[2019-12-21 08:02] LABS: BASOPHILS % (AUTO) 1.1 % (0.0-2.0); EOSINOPHILS # (AUTO) 0.1 K/uL (0.0-0.7); EOSINOPHILS % (AUTO) 4.2 % (0.0-7.0); LYMPHOCYTES # (AUTO) 0.8 K/uL (20.0-40.0); LYMPHOCYTES % (AUTO) 24.2 % (20.5-51.5); MEAN CORPUSCULAR HEMOGLOBIN 29.4 uug (24.7-32.8); MEAN CORPUSCULAR HGB CONC 35 g/dL (32.3-35.6); MEAN CORPUSCULAR VOLUME 84.5 fL (75.5-95.3); MONOCYTES # (AUTO) 0.5 K/uL (2.0-10.0); MONOCYTES % (AUTO) 16.1 % (0.0-11.0); NEUTROPHILS # (AUTO) 1.8 K/uL (1.8-8.9); NEUTROPHILS % (AUTO) 54.4 % (38.5-71.5); PLATELET COUNT (AUTO) 173 K/uL (179-408); WHITE BLOOD COUNT (AUTO) 3.4 K/uL (3.8-11.8)
[2019-12-21 08:03] LABS: HEMATOCRIT 20.8 % (31.2-41.9); HEMOGLOBIN 7.3 g/dL (10.9-14.3); RED BLOOD CELL COUNT(AUTO) 2.47 MIL/uL (3.63-4.92)
[2019-12-21] MEDS: AMIODARONE HCL 200 MG TABLET GT SCH (08:09)
[2019-12-21] MEDS: ASPIRIN 81 MG TAB.CHEW GT SCH (08:09)
[2019-12-21] MEDS: DIAZEPAM 5 MG TABLET GT SCH ×2 (08:09→21:17)
[2019-12-21] MEDS: PHENOBARBITAL 30 MG/7.5 ML LIQUID UDC GT SCH ×2 (08:09→21:16)
[2019-12-21] MEDS: levETIRAcetam 500 MG/5 ML LIQUID UDC GT SCH ×2 (08:09→21:14)
[2019-12-21] MEDS: METOPROLOL TARTRATE 25 MG TABLET GT SCH ×2 (08:10→21:16)
[2019-12-21] MEDS: ASCORBIC ACID 500 MG TABLET PO SCH ×2 (08:10→21:17)
[2019-12-21 08:12] LABS: CREATININE 0.8 mg/dL (0.6-1.3); POTASSIUM 4.1 mmol/L (3.5-5.1)
[2019-12-21] MEDS: NEOMY/BACITRA/POLYMYXIN B OINT UD PACKET TP SCH ×2 (08:12→21:20)
[2019-12-21] MEDS: COD LIVER OIL/ZINC OXIDE OINT 113 GM TUBE TP SCH ×2 (08:12→21:19)
[2019-12-21 08:37] LABS: EOSINOPHILS % (MANUAL) 5 % (0-8); LYMPHOCYTES % (MANUAL) 18 % (20-40); MONOCYTES % (MANUAL) 18 % (2-10); NEUTROPHILS % (MANUAL) 59 % (42-75)
[2019-12-21] MEDS: HYDROGEN PEROXIDE 3% 118 ML BOTTLE TOP SCH ×2 (09:13→21:11)
--- NOTE | 2019-12-21 11:30 | NUR ---
Seen by Layne CASTAÑEDA with no new order.
[2019-12-21 20:05] VITALS: BP 134/77
[2019-12-21] MEDS ORDERED: NYSTATIN CREAM 30 GM TUBE TP SCH (21:00)
[2019-12-21] MEDS: MAGNESIUM OXIDE 400 MG TABLET GT SCH (21:16)
[2019-12-21] MEDS: MULTIVIT, IRON, MIN NO. 8, FA TABLET GT SCH (21:17)
[2019-12-21] MEDS: TRIAMCINOLONE ACET 0.1% CREAM 15 GM TUBE TP SCH (21:20)
[2019-12-21] MEDS: NYSTATIN CREAM 30 GM TUBE TP SCH (21:20)
[2019-12-22] MEDS: OMEPRAZOLE 40MG GT SCH (05:49)
[2019-12-22 07:33] VITALS: BP 133/79
[2019-12-22] MEDS: ASPIRIN 81 MG TAB.CHEW GT SCH (08:00)
[2019-12-22] MEDS: levETIRAcetam 500 MG/5 ML LIQUID UDC GT SCH ×2 (08:02→20:57)
[2019-12-22] MEDS: METOPROLOL TARTRATE 25 MG TABLET GT SCH ×2 (08:02→20:59)
[2019-12-22] MEDS: PHENOBARBITAL 30 MG/7.5 ML LIQUID UDC GT SCH ×2 (08:03→21:00)
[2019-12-22] MEDS: AMIODARONE HCL 200 MG TABLET GT SCH (08:03)
[2019-12-22] MEDS: DIAZEPAM 5 MG TABLET GT SCH ×2 (08:03→21:01)
[2019-12-22] MEDS: ASCORBIC ACID 500 MG TABLET PO SCH ×2 (08:03→21:01)
[2019-12-22] MEDS: TRIAMCINOLONE ACET 0.1% CREAM 15 GM TUBE TP SCH ×2 (08:04→21:01)
[2019-12-22] MEDS: COD LIVER OIL/ZINC OXIDE OINT 113 GM TUBE TP SCH ×2 (08:04→21:01)
[2019-12-22] MEDS: NYSTATIN CREAM 30 GM TUBE TP SCH ×2 (08:04→21:02)
[2019-12-22] MEDS: NEOMY/BACITRA/POLYMYXIN B OINT UD PACKET TP SCH ×2 (08:04→21:02)
[2019-12-22] MEDS: HYDROGEN PEROXIDE 3% 118 ML BOTTLE TOP SCH ×2 (09:00→20:03)
[2019-12-22] MEDS: VITAL AF 1.2 1,000 ML LIQUID GT PRN (14:46)
[2019-12-22 20:06] VITALS: BP 126/76
[2019-12-22] MEDS: MAGNESIUM OXIDE 400 MG TABLET GT SCH (20:59)
[2019-12-22] MEDS: MULTIVIT, IRON, MIN NO. 8, FA TABLET GT SCH (21:00)
[2019-12-23] MEDS: OMEPRAZOLE 40MG GT SCH (05:38)
[2019-12-23 07:50] VITALS: BP 101/57
[2019-12-23] MEDS: ASPIRIN 81 MG TAB.CHEW GT SCH (08:09)
[2019-12-23] MEDS: DIAZEPAM 5 MG TABLET GT SCH ×2 (08:11→21:37)
[2019-12-23] MEDS: PHENOBARBITAL 30 MG/7.5 ML LIQUID UDC GT SCH ×2 (08:11→21:36)
[2019-12-23] MEDS: AMIODARONE HCL 200 MG TABLET GT SCH (08:12)
[2019-12-23] MEDS: levETIRAcetam 500 MG/5 ML LIQUID UDC GT SCH ×2 (08:12→21:35)
[2019-12-23] MEDS: METOPROLOL TARTRATE 25 MG TABLET GT SCH ×2 (08:13→21:36)
[2019-12-23] MEDS: COD LIVER OIL/ZINC OXIDE OINT 113 GM TUBE TP SCH ×2 (08:15→21:37)
[2019-12-23] MEDS: NEOMY/BACITRA/POLYMYXIN B OINT UD PACKET TP SCH (08:15)
[2019-12-23] MEDS: TRIAMCINOLONE ACET 0.1% CREAM 15 GM TUBE TP SCH ×2 (08:15→21:37)
[2019-12-23] MEDS: ASCORBIC ACID 500 MG TABLET PO SCH ×2 (08:15→21:37)
[2019-12-23] MEDS: NYSTATIN CREAM 30 GM TUBE TP SCH ×2 (08:15→21:37)
[2019-12-23] MEDS: HYDROGEN PEROXIDE 3% 118 ML BOTTLE TOP SCH ×2 (09:00→21:12)
[2019-12-23] MEDS: VITAL AF 1.2 1,000 ML LIQUID GT PRN (17:51)
[2019-12-23 20:01] VITALS: BP 137/75
[2019-12-23] MEDS: MAGNESIUM OXIDE 400 MG TABLET GT SCH (21:36)
[2019-12-23] MEDS: MULTIVIT, IRON, MIN NO. 8, FA TABLET GT SCH (21:37)
[2019-12-24] MEDS: OMEPRAZOLE 40MG GT SCH (05:17)
[2019-12-24 07:41] VITALS: BP 126/82
[2019-12-24] MEDS: ASPIRIN 81 MG TAB.CHEW GT SCH (08:07)
[2019-12-24] MEDS: levETIRAcetam 500 MG/5 ML LIQUID UDC GT SCH ×2 (08:08→21:16)
[2019-12-24] MEDS: AMIODARONE HCL 200 MG TABLET GT SCH (08:08)
[2019-12-24] MEDS: COD LIVER OIL/ZINC OXIDE OINT 113 GM TUBE TP SCH ×2 (08:09→21:19)
[2019-12-24] MEDS: PHENOBARBITAL 30 MG/7.5 ML LIQUID UDC GT SCH ×2 (08:09→21:18)
[2019-12-24] MEDS: DIAZEPAM 5 MG TABLET GT SCH ×2 (08:09→21:18)
[2019-12-24] MEDS: METOPROLOL TARTRATE 25 MG TABLET GT SCH ×2 (08:09→21:00)
[2019-12-24] MEDS: ASCORBIC ACID 500 MG TABLET PO SCH ×2 (08:09→21:18)
[2019-12-24] MEDS: NYSTATIN CREAM 30 GM TUBE TP SCH ×2 (08:10→21:19)
[2019-12-24] MEDS: TRIAMCINOLONE ACET 0.1% CREAM 15 GM TUBE TP SCH ×2 (08:10→21:19)
[2019-12-24] MEDS: HYDROGEN PEROXIDE 3% 118 ML BOTTLE TOP SCH ×2 (09:00→20:48)
[2019-12-24] MEDS: VITAL AF 1.2 1,000 ML LIQUID GT PRN (17:49)
--- NOTE | 2019-12-24 18:57 | NUR ---
SEEN BY DR. TOLBERT AND WITH NNO.
[2019-12-24 20:00] VITALS: BP 123/72
[2019-12-24] MEDS: MAGNESIUM OXIDE 400 MG TABLET GT SCH (21:18)
[2019-12-24] MEDS: MULTIVIT, IRON, MIN NO. 8, FA TABLET GT SCH (21:18)
[2019-12-25] MEDS: OMEPRAZOLE 40MG GT SCH (05:29)
[2019-12-25 07:54] VITALS: BP 98/57
[2019-12-25] MEDS: HYDROGEN PEROXIDE 3% 118 ML BOTTLE TOP SCH ×2 (08:45→19:13)
[2019-12-25] MEDS: AMIODARONE HCL 200 MG TABLET GT SCH (09:00)
[2019-12-25] MEDS: METOPROLOL TARTRATE 25 MG TABLET GT SCH ×2 (09:00→20:16)
[2019-12-25] MEDS: PHENOBARBITAL 30 MG/7.5 ML LIQUID UDC GT SCH ×2 (09:22→20:16)
[2019-12-25] MEDS: COD LIVER OIL/ZINC OXIDE OINT 113 GM TUBE TP SCH ×2 (09:22→20:17)
[2019-12-25] MEDS: TRIAMCINOLONE ACET 0.1% CREAM 15 GM TUBE TP SCH ×2 (09:22→20:17)
[2019-12-25] MEDS: ASCORBIC ACID 500 MG TABLET PO SCH ×2 (09:22→20:16)
[2019-12-25] MEDS: NYSTATIN CREAM 30 GM TUBE TP SCH ×2 (09:22→20:17)
[2019-12-25] MEDS: DIAZEPAM 5 MG TABLET GT SCH ×2 (09:22→20:16)
[2019-12-25] MEDS: levETIRAcetam 500 MG/5 ML LIQUID UDC GT SCH ×2 (09:23→20:16)
[2019-12-25] MEDS: ASPIRIN 81 MG TAB.CHEW GT SCH (09:25)
[2019-12-25 20:00] VITALS: BP 127/75
[2019-12-25] MEDS: MAGNESIUM OXIDE 400 MG TABLET GT SCH (20:16)
[2019-12-25] MEDS: MULTIVIT, IRON, MIN NO. 8, FA TABLET GT SCH (20:16)
[2019-12-26] MEDS: OMEPRAZOLE 40MG GT SCH (05:19)
[2019-12-26 07:51] VITALS: BP 108/60
[2019-12-26] MEDS: ASPIRIN 81 MG TAB.CHEW GT SCH (08:38)
[2019-12-26] MEDS: AMIODARONE HCL 200 MG TABLET GT SCH (08:41)
[2019-12-26] MEDS: levETIRAcetam 500 MG/5 ML LIQUID UDC GT SCH ×2 (08:42→20:23)
[2019-12-26] MEDS: METOPROLOL TARTRATE 25 MG TABLET GT SCH ×2 (08:43→20:23)
[2019-12-26] MEDS: ASCORBIC ACID 500 MG TABLET PO SCH ×2 (08:43→20:23)
[2019-12-26] MEDS: PHENOBARBITAL 30 MG/7.5 ML LIQUID UDC GT SCH ×2 (08:43→20:23)
[2019-12-26] MEDS: COD LIVER OIL/ZINC OXIDE OINT 113 GM TUBE TP SCH ×2 (08:43→20:23)
[2019-12-26] MEDS: DIAZEPAM 5 MG TABLET GT SCH ×2 (08:43→20:23)
[2019-12-26] MEDS: NYSTATIN CREAM 30 GM TUBE TP SCH ×2 (08:44→20:23)
[2019-12-26] MEDS: TRIAMCINOLONE ACET 0.1% CREAM 15 GM TUBE TP SCH ×2 (08:44→20:23)
[2019-12-26] MEDS: HYDROGEN PEROXIDE 3% 118 ML BOTTLE TOP SCH ×2 (09:52→21:40)
[2019-12-26] MEDS: MULTIVIT, IRON, MIN NO. 8, FA TABLET GT SCH (20:23)
[2019-12-26] MEDS: MAGNESIUM OXIDE 400 MG TABLET GT SCH (20:23)
[2019-12-26 20:29] VITALS: BP 115/68
[2019-12-27] MEDS: OMEPRAZOLE 40MG GT SCH (05:06)
[2019-12-27 07:33] VITALS: BP 107/67
[2019-12-27] MEDS: ASPIRIN 81 MG TAB.CHEW GT SCH (08:02)
[2019-12-27] MEDS: METOPROLOL TARTRATE 25 MG TABLET GT SCH ×2 (08:02→20:35)
[2019-12-27] MEDS: levETIRAcetam 500 MG/5 ML LIQUID UDC GT SCH ×2 (08:02→20:34)
[2019-12-27] MEDS: AMIODARONE HCL 200 MG TABLET GT SCH (08:02)
[2019-12-27] MEDS: COD LIVER OIL/ZINC OXIDE OINT 113 GM TUBE TP SCH ×2 (08:03→20:35)
[2019-12-27] MEDS: NYSTATIN CREAM 30 GM TUBE TP SCH ×2 (08:03→20:35)
[2019-12-27] MEDS: ASCORBIC ACID 500 MG TABLET PO SCH ×2 (08:03→20:35)
[2019-12-27] MEDS: PHENOBARBITAL 30 MG/7.5 ML LIQUID UDC GT SCH ×2 (08:03→20:35)
[2019-12-27] MEDS: DIAZEPAM 5 MG TABLET GT SCH ×2 (08:03→20:35)
[2019-12-27] MEDS: TRIAMCINOLONE ACET 0.1% CREAM 15 GM TUBE TP SCH ×2 (08:03→20:35)
[2019-12-27] MEDS: HYDROGEN PEROXIDE 3% 118 ML BOTTLE TOP SCH ×2 (09:00→21:10)
[2019-12-27] MEDS: MULTIVIT, IRON, MIN NO. 8, FA TABLET GT SCH (20:35)
[2019-12-27] MEDS: MAGNESIUM OXIDE 400 MG TABLET GT SCH (20:35)
[2019-12-27 20:58] VITALS: BP 111/72
[2019-12-28] MEDS: OMEPRAZOLE 40MG GT SCH (05:46)
[2019-12-28 07:47] VITALS: BP 115/70
[2019-12-28] MEDS: ASPIRIN 81 MG TAB.CHEW GT SCH (08:27)
[2019-12-28] MEDS: NYSTATIN CREAM 30 GM TUBE TP SCH ×2 (08:28→21:54)
[2019-12-28] MEDS: DIAZEPAM 5 MG TABLET GT SCH ×2 (08:28→21:00)
[2019-12-28] MEDS: PHENOBARBITAL 30 MG/7.5 ML LIQUID UDC GT SCH ×2 (08:28→21:00)
[2019-12-28] MEDS: TRIAMCINOLONE ACET 0.1% CREAM 15 GM TUBE TP SCH ×2 (08:28→21:54)
[2019-12-28] MEDS: levETIRAcetam 500 MG/5 ML LIQUID UDC GT SCH ×2 (08:28→21:52)
[2019-12-28] MEDS: ASCORBIC ACID 500 MG TABLET PO SCH ×2 (08:28→21:54)
[2019-12-28] MEDS: AMIODARONE HCL 200 MG TABLET GT SCH (08:28)
[2019-12-28] MEDS: METOPROLOL TARTRATE 25 MG TABLET GT SCH ×2 (08:28→21:52)
[2019-12-28] MEDS: COD LIVER OIL/ZINC OXIDE OINT 113 GM TUBE TP SCH ×2 (08:28→21:54)
[2019-12-28] MEDS: HYDROGEN PEROXIDE 3% 118 ML BOTTLE TOP SCH ×2 (09:07→21:31)
--- NOTE | 2019-12-28 12:00 | NUR ---
SEEN BY FLASH Mclaughlin AND O.
[2019-12-28 21:26] VITALS: BP 131/80
[2019-12-28] MEDS: MULTIVIT, IRON, MIN NO. 8, FA TABLET GT SCH (21:53)
[2019-12-28] MEDS: MAGNESIUM OXIDE 400 MG TABLET GT SCH (21:53)
[2019-12-29] MEDS: OMEPRAZOLE 40MG GT SCH (05:17)
[2019-12-29 07:39] VITALS: BP 117/72
[2019-12-29] MEDS: ASPIRIN 81 MG TAB.CHEW GT SCH (08:21)
[2019-12-29] MEDS: levETIRAcetam 500 MG/5 ML LIQUID UDC GT SCH ×2 (08:23→21:27)
[2019-12-29] MEDS: AMIODARONE HCL 200 MG TABLET GT SCH (08:23)
[2019-12-29] MEDS: PHENOBARBITAL 30 MG/7.5 ML LIQUID UDC GT SCH ×2 (08:24→21:29)
[2019-12-29] MEDS: METOPROLOL TARTRATE 25 MG TABLET GT SCH ×2 (08:24→21:28)
[2019-12-29] MEDS: DIAZEPAM 5 MG TABLET GT SCH ×2 (08:25→21:29)
[2019-12-29] MEDS: ASCORBIC ACID 500 MG TABLET PO SCH ×2 (08:25→21:29)
[2019-12-29] MEDS: NYSTATIN CREAM 30 GM TUBE TP SCH ×2 (09:00→21:30)
[2019-12-29] MEDS: COD LIVER OIL/ZINC OXIDE OINT 113 GM TUBE TP SCH ×2 (09:00→21:29)
[2019-12-29] MEDS: TRIAMCINOLONE ACET 0.1% CREAM 15 GM TUBE TP SCH ×2 (09:00→21:29)
[2019-12-29] MEDS: HYDROGEN PEROXIDE 3% 118 ML BOTTLE TOP SCH ×2 (09:48→21:14)
[2019-12-29] MEDS: VITAL AF 1.2 1,000 ML LIQUID GT PRN (12:08)
--- NOTE | 2019-12-29 13:03 | NUR ---
INTERDISCIPLINARY PLAN OF CARE CONFERENCE was held today. Patient's father was not available to participate in the meeting. Dr. Lora and the Interdisciplinary Team reviewed the current plan of care in detail. RN reported on patient's current medical condition and on findings of most recent labs, stated there have not been any major changes in patient's condition. RN also reported that patient's isolation status has been discontinued. See RN IDT conference notes. See also all other disciplines IDT notes and physician's progress notes for additional details.
--- NOTE | 2019-12-29 13:50 | NUR ---
Pharmacy Update from Today's 12/29/19 IDT Meeting Note: Patient was transferred to CCU 11/20-11/26 d/t septic shock 2/2 UTI requiring pressors and with subsequent seizure episodes. Pt was stabilized, treated, and transferred back to on finishing courses of Vanco PO for c diff and amikacin. ID continues to follow on floor. VS: Temp 98.4 BP 120/68 HR 62 LABS: (from 12/21/19) Wbc 3.4 H/H 7.3/20.8 Plt 173 Na 138 K 4.1 Cl 101 CO2 29 BUN/Scr 31/0.8 BS 107 Ca 9.5 MEDICATION USE REVIEWED: > Pt not on any anti-psych medications > Pt continues on Keppra 2000mg q12hr since 12/02/18; CrCl >100 ml/min, renal function ok for current dose. No reported seizures since last IDT > Pt on Phenobarbital 129.6mg q12hr since 07/23/19. Last level 09/08/19 was 33 (15-39), within therapeutic range > Pt also on Valium 5mg q12hr since 08/05 for muscle twitching/residual seizure activity per neurology. PRN also on board. x0 used since last IDT > Pt on Magnesium Oxide 400mg daily since 08/03. Last Mg 2.0 > Pt on Lopressor 12.5mg q12hr since 10/25/19, last BP wnl. > Pt on Omeprazole 40mg daily since 08/02/19, ok dose per renal function PRN MED USAGE: (November) Tylenol PRN pain/temp used x2 for temp Zofran PRN used x0 Artificial Tears PRN used x0 NEW ORDERS NOTED: > Central line d/c'd 12/14 > Nystatin/triamcinolone cream for groin rash 12/20-01/03 Patient was reviewed and discussed in depth per IDT team with no medication issues at this time. No further pharmacy recommendations at this time, pt remains stable on current regimen. Previous infection resolved and monitored off abx, central line d/c'd as no longer needed at this time per ID. Will continue to follow
[2019-12-29 20:07] VITALS: BP 115/70
[2019-12-29] MEDS: MULTIVIT, IRON, MIN NO. 8, FA TABLET GT SCH (21:29)
[2019-12-29] MEDS: MAGNESIUM OXIDE 400 MG TABLET GT SCH (21:29)
--- NOTE | 2019-12-30 03:14 | NUR ---
PT ON CONT HT 50 VENT WITH SHILEY #[address] AND SECURED, WITH SAME CURRENT VENT SETTINGS, PT DOES ASSIST AT TIMES, WITH GOOD COUGH EFFORT, SUCTIONED LIGHT PALE YELL TINGE SECRETIONS, CHECK CUFF, CHANGE HME, TRACH CARE DONE, NO VENT CHANGES MADE, .Helena BROUSSARDP Addendum: 12/30/19 at 0315 by KSENIA MONTGOMERY RT Amended: Links added.
[2019-12-30] MEDS: OMEPRAZOLE 40MG GT SCH (06:24)
[2019-12-30 07:40] VITALS: BP 126/78
[2019-12-30] MEDS: ASPIRIN 81 MG TAB.CHEW GT SCH (08:19)
[2019-12-30] MEDS: AMIODARONE HCL 200 MG TABLET GT SCH (08:20)
[2019-12-30] MEDS: levETIRAcetam 500 MG/5 ML LIQUID UDC GT SCH ×2 (08:20→21:17)
[2019-12-30] MEDS: DIAZEPAM 5 MG TABLET GT SCH ×2 (08:21→21:20)
[2019-12-30] MEDS: METOPROLOL TARTRATE 25 MG TABLET GT SCH ×2 (08:21→21:18)
[2019-12-30] MEDS: PHENOBARBITAL 30 MG/7.5 ML LIQUID UDC GT SCH ×2 (08:21→21:19)
[2019-12-30] MEDS: ASCORBIC ACID 500 MG TABLET PO SCH ×2 (08:21→21:20)
[2019-12-30] MEDS: NYSTATIN CREAM 30 GM TUBE TP SCH ×2 (08:22→21:21)
[2019-12-30] MEDS: COD LIVER OIL/ZINC OXIDE OINT 113 GM TUBE TP SCH ×2 (08:22→21:21)
[2019-12-30] MEDS: TRIAMCINOLONE ACET 0.1% CREAM 15 GM TUBE TP SCH ×2 (08:22→21:21)
[2019-12-30] MEDS: HYDROGEN PEROXIDE 3% 118 ML BOTTLE TOP SCH ×2 (09:24→21:46)
[2019-12-30] MEDS: VITAL AF 1.2 1,000 ML LIQUID GT PRN (10:53)
[2019-12-30 20:05] VITALS: BP 125/69
[2019-12-30] MEDS: MAGNESIUM OXIDE 400 MG TABLET GT SCH (21:18)
[2019-12-30] MEDS: MULTIVIT, IRON, MIN NO. 8, FA TABLET GT SCH (21:19)
[2019-12-31] MEDS: OMEPRAZOLE 40MG GT SCH (06:17)
[2019-12-31] MEDS: HYDROGEN PEROXIDE 3% 118 ML BOTTLE TOP SCH ×2 (07:18→21:25)
[2019-12-31 07:25] VITALS: BP 109/73
[2019-12-31] MEDS: ASPIRIN 81 MG TAB.CHEW GT SCH (08:43)
[2019-12-31] MEDS: METOPROLOL TARTRATE 25 MG TABLET GT SCH ×2 (08:43→20:09)
[2019-12-31] MEDS: levETIRAcetam 500 MG/5 ML LIQUID UDC GT SCH ×2 (08:43→20:08)
[2019-12-31] MEDS: DIAZEPAM 5 MG TABLET GT SCH ×2 (08:44→20:09)
[2019-12-31] MEDS: PHENOBARBITAL 30 MG/7.5 ML LIQUID UDC GT SCH ×2 (08:44→20:09)
[2019-12-31] MEDS: COD LIVER OIL/ZINC OXIDE OINT 113 GM TUBE TP SCH ×2 (08:44→20:09)
[2019-12-31] MEDS: ASCORBIC ACID 500 MG TABLET PO SCH ×2 (08:44→20:09)
[2019-12-31] MEDS: TRIAMCINOLONE ACET 0.1% CREAM 15 GM TUBE TP SCH ×2 (08:44→20:09)
[2019-12-31] MEDS: AMIODARONE HCL 200 MG TABLET GT SCH (08:44)
[2019-12-31] MEDS: NYSTATIN CREAM 30 GM TUBE TP SCH ×2 (08:44→20:09)
--- NOTE | 2019-12-31 18:38 | NUR ---
SEEM AND EXAMINED BY DR. TOLBERT, WITH NEW ORDERS, NOTED AND CARRIED OUT.
[2019-12-31] MEDS: MULTIVIT, IRON, MIN NO. 8, FA TABLET GT SCH (20:09)
[2019-12-31] MEDS: MAGNESIUM OXIDE 400 MG TABLET GT SCH (20:09)
[2019-12-31 20:14] VITALS: BP 135/84
[2020-01-01] MEDS: OMEPRAZOLE 40MG GT SCH (05:07)
[2020-01-01] MEDS: VITAL AF 1.2 1,000 ML LIQUID GT PRN (05:07)
[2020-01-01 07:30] VITALS: BP 114/73
[2020-01-01] MEDS: HYDROGEN PEROXIDE 3% 118 ML BOTTLE TOP SCH ×2 (09:00→20:17)
[2020-01-01] MEDS: ASPIRIN 81 MG TAB.CHEW GT SCH (09:24)
[2020-01-01] MEDS: AMIODARONE HCL 200 MG TABLET GT SCH (09:25)
[2020-01-01] MEDS: COD LIVER OIL/ZINC OXIDE OINT 113 GM TUBE TP SCH ×2 (09:25→21:20)
[2020-01-01] MEDS: levETIRAcetam 500 MG/5 ML LIQUID UDC GT SCH ×2 (09:25→21:19)
[2020-01-01] MEDS: TRIAMCINOLONE ACET 0.1% CREAM 15 GM TUBE TP SCH ×2 (09:25→21:21)
[2020-01-01] MEDS: METOPROLOL TARTRATE 25 MG TABLET GT SCH ×2 (09:25→21:20)
[2020-01-01] MEDS: NYSTATIN CREAM 30 GM TUBE TP SCH ×2 (09:25→21:21)
[2020-01-01] MEDS: ASCORBIC ACID 500 MG TABLET PO SCH ×2 (09:25→21:20)
[2020-01-01] MEDS: DIAZEPAM 5 MG TABLET GT SCH ×2 (09:25→21:20)
[2020-01-01] MEDS: PHENOBARBITAL 30 MG/7.5 ML LIQUID UDC GT SCH ×2 (09:25→21:20)
[2020-01-01 20:24] VITALS: BP 126/85
[2020-01-01] MEDS: MULTIVIT, IRON, MIN NO. 8, FA TABLET GT SCH (21:20)
[2020-01-01] MEDS: MAGNESIUM OXIDE 400 MG TABLET GT SCH (21:20)
[2020-01-02] MEDS: OMEPRAZOLE 40MG GT SCH (06:33)
[2020-01-02] MEDS: VITAL AF 1.2 1,000 ML LIQUID GT PRN (06:56)
[2020-01-02 08:04] VITALS: BP 129/91
[2020-01-02] MEDS: ASPIRIN 81 MG TAB.CHEW GT SCH (08:14)
[2020-01-02] MEDS: levETIRAcetam 500 MG/5 ML LIQUID UDC GT SCH ×2 (08:15→21:10)
[2020-01-02] MEDS: AMIODARONE HCL 200 MG TABLET GT SCH (08:19)
[2020-01-02] MEDS: METOPROLOL TARTRATE 25 MG TABLET GT SCH ×2 (08:19→21:00)
[2020-01-02] MEDS: PHENOBARBITAL 30 MG/7.5 ML LIQUID UDC GT SCH ×2 (08:20→21:08)
[2020-01-02] MEDS: COD LIVER OIL/ZINC OXIDE OINT 113 GM TUBE TP SCH ×2 (08:20→21:08)
[2020-01-02] MEDS: DIAZEPAM 5 MG TABLET GT SCH ×2 (08:20→21:08)
[2020-01-02] MEDS: ASCORBIC ACID 500 MG TABLET PO SCH ×2 (08:20→21:08)
[2020-01-02] MEDS: NYSTATIN CREAM 30 GM TUBE TP SCH ×2 (08:21→21:08)
[2020-01-02] MEDS: TRIAMCINOLONE ACET 0.1% CREAM 15 GM TUBE TP SCH ×2 (08:21→21:08)
[2020-01-02] MEDS: HYDROGEN PEROXIDE 3% 118 ML BOTTLE TOP SCH ×2 (09:06→21:06)
[2020-01-02 19:49] VITALS: BP 101/62
[2020-01-02] MEDS: MULTIVIT, IRON, MIN NO. 8, FA TABLET GT SCH (21:08)
[2020-01-02] MEDS: MAGNESIUM OXIDE 400 MG TABLET GT SCH (21:09)
[2020-01-03] MEDS: VITAL AF 1.2 1,000 ML LIQUID GT PRN (02:22)
[2020-01-03] MEDS: OMEPRAZOLE 40MG GT SCH (05:03)
[2020-01-03 07:31] VITALS: BP 109/70
[2020-01-03] MEDS: ASPIRIN 81 MG TAB.CHEW GT SCH (09:18)
[2020-01-03] MEDS: DIAZEPAM 5 MG TABLET GT SCH ×2 (09:18→20:56)
[2020-01-03] MEDS: ASCORBIC ACID 500 MG TABLET PO SCH ×2 (09:18→20:56)
[2020-01-03] MEDS: AMIODARONE HCL 200 MG TABLET GT SCH (09:18)
[2020-01-03] MEDS: METOPROLOL TARTRATE 25 MG TABLET GT SCH ×2 (09:18→20:56)
[2020-01-03] MEDS: levETIRAcetam 500 MG/5 ML LIQUID UDC GT SCH ×2 (09:18→20:55)
[2020-01-03] MEDS: PHENOBARBITAL 30 MG/7.5 ML LIQUID UDC GT SCH ×2 (09:18→20:56)
[2020-01-03] MEDS: TRIAMCINOLONE ACET 0.1% CREAM 15 GM TUBE TP SCH ×2 (09:19→20:57)
[2020-01-03] MEDS: COD LIVER OIL/ZINC OXIDE OINT 113 GM TUBE TP SCH ×2 (09:19→20:57)
[2020-01-03] MEDS: NYSTATIN CREAM 30 GM TUBE TP SCH ×2 (09:19→20:57)
[2020-01-03] MEDS: HYDROGEN PEROXIDE 3% 118 ML BOTTLE TOP SCH ×2 (09:47→21:00)
[2020-01-03] MEDS: MAGNESIUM OXIDE 400 MG TABLET GT SCH (20:56)
[2020-01-03] MEDS: MULTIVIT, IRON, MIN NO. 8, FA TABLET GT SCH (20:56)
[2020-01-03 21:11] VITALS: BP 108/71
[2020-01-04] MEDS: OMEPRAZOLE 40MG GT SCH (06:08)
[2020-01-04 07:29] VITALS: BP 110/69
[2020-01-04] MEDS: AMIODARONE HCL 200 MG TABLET GT SCH (09:02)
[2020-01-04] MEDS: levETIRAcetam 500 MG/5 ML LIQUID UDC GT SCH ×2 (09:02→21:14)
[2020-01-04] MEDS: ASPIRIN 81 MG TAB.CHEW GT SCH (09:02)
[2020-01-04] MEDS: COD LIVER OIL/ZINC OXIDE OINT 113 GM TUBE TP SCH ×2 (09:03→21:16)
[2020-01-04] MEDS: METOPROLOL TARTRATE 25 MG TABLET GT SCH ×2 (09:03→21:14)
[2020-01-04] MEDS: ASCORBIC ACID 500 MG TABLET PO SCH ×2 (09:03→21:16)
[2020-01-04] MEDS: PHENOBARBITAL 30 MG/7.5 ML LIQUID UDC GT SCH ×2 (09:03→21:15)
[2020-01-04] MEDS: DIAZEPAM 5 MG TABLET GT SCH ×2 (09:03→21:15)
[2020-01-04] MEDS: TRIAMCINOLONE ACET 0.1% CREAM 15 GM TUBE TP SCH (09:04)
[2020-01-04] MEDS: NYSTATIN CREAM 30 GM TUBE TP SCH (09:04)
[2020-01-04] MEDS: HYDROGEN PEROXIDE 3% 118 ML BOTTLE TOP SCH ×2 (09:23→21:45)
[2020-01-04] MEDS: VITAL AF 1.2 1,000 ML LIQUID GT PRN (17:51)
[2020-01-04 21:09] VITALS: BP 107/68
[2020-01-04] MEDS: MULTIVIT, IRON, MIN NO. 8, FA TABLET GT SCH (21:15)
[2020-01-04] MEDS: MAGNESIUM OXIDE 400 MG TABLET GT SCH (21:15)
[2020-01-05] MEDS: OMEPRAZOLE 40MG GT SCH (05:09)
[2020-01-05 06:29] LABS: ALANINE AMINOTRANSFERASE 18 U/L (14-59); ALKALINE PHOSPHATASE 108 U/L (50-136); ASPARTATE AMINOTRANSFERASE 15 U/L (15-37); BILIRUBIN,TOTAL 0.2 mg/dL (0.2-1.0); CARBON DIOXIDE 29 mmol/L (21-32); CHLORIDE 106 mmol/L (98-107); CREATININE < 0.2 mg/dL (0.6-1.3); GLUCOSE 103 mg/dL (74-106); MAGNESIUM 1.9 mg/dL (1.8-2.4); PHOSPHOROUS 3.9 mg/dL (2.5-4.9); POTASSIUM 4.1 mmol/L (3.5-5.1); TOTAL PROTEIN, SERUM 7.4 g/dL (6.4-8.2); UREA NITROGEN, BLOOD 21 mg/dL (7-18)
[2020-01-05 06:41] LABS: EOSINOPHILS # (AUTO) 0.1 K/uL (0.0-0.7); LYMPHOCYTES # (AUTO) 0.5 K/uL (20.0-40.0); MONOCYTES # (AUTO) 0.3 K/uL (2.0-10.0); NEUTROPHILS # (AUTO) 1.5 K/uL (1.8-8.9)
[2020-01-05 06:53] LABS: BASOPHILS % (AUTO) 0.7 % (0.0-2.0); EOSINOPHILS % (AUTO) 4.5 % (0.0-7.0); LYMPHOCYTES % (AUTO) 19.4 % (20.5-51.5); MEAN CORPUSCULAR HEMOGLOBIN 30.3 uug (24.7-32.8); MEAN CORPUSCULAR HGB CONC 35 g/dL (32.3-35.6); MEAN CORPUSCULAR VOLUME 86.7 fL (75.5-95.3); MONOCYTES % (AUTO) 10.8 % (0.0-11.0); NEUTROPHILS % (AUTO) 64.6 % (38.5-71.5); PLATELET COUNT (AUTO) 125 K/uL (179-408)
[2020-01-05 07:02] LABS: WHITE BLOOD COUNT (AUTO) 2.3 K/uL (3.8-11.8)
[2020-01-05 07:06] LABS: HEMATOCRIT 19.9 % (31.2-41.9)
[2020-01-05 07:24] VITALS: BP 109/65
[2020-01-05] MEDS: ASPIRIN 81 MG TAB.CHEW GT SCH (08:05)
[2020-01-05] MEDS: levETIRAcetam 500 MG/5 ML LIQUID UDC GT SCH ×2 (08:05→21:19)
[2020-01-05] MEDS: AMIODARONE HCL 200 MG TABLET GT SCH (08:05)
[2020-01-05] MEDS: ASCORBIC ACID 500 MG TABLET PO SCH ×2 (08:06→21:20)
[2020-01-05] MEDS: PHENOBARBITAL 30 MG/7.5 ML LIQUID UDC GT SCH ×2 (08:06→21:19)
[2020-01-05] MEDS: COD LIVER OIL/ZINC OXIDE OINT 113 GM TUBE TP SCH ×2 (08:06→21:20)
[2020-01-05] MEDS: METOPROLOL TARTRATE 25 MG TABLET GT SCH ×2 (08:06→21:19)
[2020-01-05] MEDS: DIAZEPAM 5 MG TABLET GT SCH ×2 (08:06→21:20)
[2020-01-05 09:01] LABS: BAND % (MANUAL) 1 % (0-10); EOSINOPHILS % (MANUAL) 5 % (0-8); LYMPHOCYTES % (MANUAL) 16 % (20-40); MONOCYTES % (MANUAL) 7 % (2-10); NEUTROPHILS % (MANUAL) 71 % (42-75)
[2020-01-05] MEDS: HYDROGEN PEROXIDE 3% 118 ML BOTTLE TOP SCH ×2 (09:22→20:36)
--- NOTE | 2020-01-05 12:30 | NUR ---
Layne Carrillo aware of the abnormal labs results with new orders noted,carried out.
--- NOTE | 2020-01-05 17:44 | NUR ---
[facility] [employer] Specialist aware of the dietary consult,for low hemoglobin,and low albumin.
[2020-01-05 20:22] VITALS: BP 113/67
[2020-01-05] MEDS: MAGNESIUM OXIDE 400 MG TABLET GT SCH (21:19)
[2020-01-05] MEDS: MULTIVIT, IRON, MIN NO. 8, FA TABLET GT SCH (21:20)
[2020-01-06] MEDS: OMEPRAZOLE 40MG GT SCH (05:47)
[2020-01-06 07:58] VITALS: BP 90/52
[2020-01-06] MEDS: levETIRAcetam 500 MG/5 ML LIQUID UDC GT SCH ×2 (08:14→20:47)
[2020-01-06] MEDS: AMIODARONE HCL 200 MG TABLET GT SCH (08:14)
[2020-01-06] MEDS: ASPIRIN 81 MG TAB.CHEW GT SCH (08:14)
[2020-01-06] MEDS: ASCORBIC ACID 500 MG TABLET PO SCH ×2 (08:15→20:47)
[2020-01-06] MEDS: DIAZEPAM 5 MG TABLET GT SCH ×2 (08:15→20:47)
[2020-01-06] MEDS: PHENOBARBITAL 30 MG/7.5 ML LIQUID UDC GT SCH ×2 (08:15→20:47)
[2020-01-06] MEDS: METOPROLOL TARTRATE 25 MG TABLET GT SCH ×2 (08:15→20:46)
[2020-01-06] MEDS: COD LIVER OIL/ZINC OXIDE OINT 113 GM TUBE TP SCH ×2 (08:16→20:47)
[2020-01-06] MEDS: HYDROGEN PEROXIDE 3% 118 ML BOTTLE TOP SCH ×2 (10:20→21:10)
--- NOTE | 2020-01-06 17:12 | NUR ---
New orders to do the Baseline [facility] Covid 19 test requirement.
[2020-01-06 20:00] VITALS: BP 114/71
[2020-01-06] MEDS: MAGNESIUM OXIDE 400 MG TABLET GT SCH (20:46)
[2020-01-06] MEDS: MULTIVIT, IRON, MIN NO. 8, FA TABLET GT SCH (20:47)
[2020-01-07] MEDS: OMEPRAZOLE 40MG GT SCH (05:36)
[2020-01-07 07:56] VITALS: BP 114/75
[2020-01-07] MEDS: ASPIRIN 81 MG TAB.CHEW GT SCH (08:09)
[2020-01-07] MEDS: levETIRAcetam 500 MG/5 ML LIQUID UDC GT SCH ×2 (08:10→21:25)
[2020-01-07] MEDS: DIAZEPAM 5 MG TABLET GT SCH ×2 (08:10→21:26)
[2020-01-07] MEDS: COD LIVER OIL/ZINC OXIDE OINT 113 GM TUBE TP SCH ×2 (08:10→21:26)
[2020-01-07] MEDS: METOPROLOL TARTRATE 25 MG TABLET GT SCH ×2 (08:10→21:25)
[2020-01-07] MEDS: ASCORBIC ACID 500 MG TABLET PO SCH ×2 (08:10→21:26)
[2020-01-07] MEDS: AMIODARONE HCL 200 MG TABLET GT SCH (08:10)
[2020-01-07] MEDS: PHENOBARBITAL 30 MG/7.5 ML LIQUID UDC GT SCH ×2 (08:10→21:25)
[2020-01-07] MEDS: HYDROGEN PEROXIDE 3% 118 ML BOTTLE TOP SCH ×2 (09:24→21:00)
--- NOTE | 2020-01-07 10:06 | NUR ---
SEEN AND EXAMINED BY DR. SNOWDEN AND WITH NNO.
[2020-01-07] MEDS: PROTEIN SUPPLEMENT (PROSTAT) 30 ML LIQUID GT SCH (17:53)
[2020-01-07 20:00] VITALS: BP 139/91
[2020-01-07] MEDS: MAGNESIUM OXIDE 400 MG TABLET GT SCH (21:25)
[2020-01-07] MEDS: MULTIVIT, IRON, MIN NO. 8, FA TABLET GT SCH (21:26)
[2020-01-08] MEDS: OMEPRAZOLE 40MG GT SCH (05:14)
[2020-01-08 07:49] VITALS: BP 98/62
[2020-01-08] MEDS: ASPIRIN 81 MG TAB.CHEW GT SCH (08:10)
[2020-01-08] MEDS: AMIODARONE HCL 200 MG TABLET GT SCH (08:11)
[2020-01-08] MEDS: levETIRAcetam 500 MG/5 ML LIQUID UDC GT SCH ×2 (08:11→21:43)
[2020-01-08] MEDS: METOPROLOL TARTRATE 25 MG TABLET GT SCH ×2 (08:12→21:43)
[2020-01-08] MEDS: PHENOBARBITAL 30 MG/7.5 ML LIQUID UDC GT SCH ×2 (08:13→21:43)
[2020-01-08] MEDS: DIAZEPAM 5 MG TABLET GT SCH ×2 (08:14→21:44)
[2020-01-08] MEDS: ASCORBIC ACID 500 MG TABLET PO SCH ×2 (08:14→21:44)
[2020-01-08] MEDS: COD LIVER OIL/ZINC OXIDE OINT 113 GM TUBE TP SCH ×2 (08:14→21:44)
[2020-01-08] MEDS: PROTEIN SUPPLEMENT (PROSTAT) 30 ML LIQUID GT SCH ×2 (08:14→17:43)
[2020-01-08] MEDS: HYDROGEN PEROXIDE 3% 118 ML BOTTLE TOP SCH ×2 (09:00→21:39)
--- NOTE | 2020-01-08 11:04 | NUR ---
PT. NEGATIVE FOR COVID 19.
[2020-01-08] MEDS: VITAL AF 1.2 1,000 ML LIQUID GT PRN (13:38)
--- NOTE | 2020-01-08 14:35 | NUR ---
SEEN BY DR. SNOWDEN AND NNO.
[2020-01-08 20:03] VITALS: BP 138/77
[2020-01-08] MEDS: MAGNESIUM OXIDE 400 MG TABLET GT SCH (21:43)
[2020-01-08] MEDS: MULTIVIT, IRON, MIN NO. 8, FA TABLET GT SCH (21:44)
[2020-01-09] MEDS: OMEPRAZOLE 40MG GT SCH (05:02)
[2020-01-09] MEDS: HYDROGEN PEROXIDE 3% 118 ML BOTTLE TOP SCH ×2 (07:17→21:00)
[2020-01-09 07:44] VITALS: BP 106/63
[2020-01-09] MEDS: ASPIRIN 81 MG TAB.CHEW GT SCH (08:30)
[2020-01-09] MEDS: levETIRAcetam 500 MG/5 ML LIQUID UDC GT SCH ×2 (08:31→21:15)
[2020-01-09] MEDS: AMIODARONE HCL 200 MG TABLET GT SCH (08:31)
[2020-01-09] MEDS: PHENOBARBITAL 30 MG/7.5 ML LIQUID UDC GT SCH ×2 (08:34→21:16)
[2020-01-09] MEDS: ASCORBIC ACID 500 MG TABLET PO SCH ×2 (08:34→21:16)
[2020-01-09] MEDS: DIAZEPAM 5 MG TABLET GT SCH ×2 (08:34→21:16)
[2020-01-09] MEDS: PROTEIN SUPPLEMENT (PROSTAT) 30 ML LIQUID GT SCH ×2 (08:34→17:24)
[2020-01-09] MEDS: METOPROLOL TARTRATE 25 MG TABLET GT SCH ×2 (08:34→21:16)
[2020-01-09] MEDS: COD LIVER OIL/ZINC OXIDE OINT 113 GM TUBE TP SCH ×2 (08:34→21:16)
--- NOTE | 2020-01-09 10:00 | NUR ---
SEEN BY DR. TOLBERT AND WITH NNO.
[2020-01-09 19:57] VITALS: BP 104/65
[2020-01-09] MEDS: MULTIVIT, IRON, MIN NO. 8, FA TABLET GT SCH (21:16)
[2020-01-09] MEDS: MAGNESIUM OXIDE 400 MG TABLET GT SCH (21:16)
[2020-01-10] MEDS: OMEPRAZOLE 40MG GT SCH (05:25)
[2020-01-10 08:04] VITALS: BP 119/75
[2020-01-10] MEDS: ASPIRIN 81 MG TAB.CHEW GT SCH (08:11)
[2020-01-10] MEDS: AMIODARONE HCL 200 MG TABLET GT SCH (08:11)
[2020-01-10] MEDS: levETIRAcetam 500 MG/5 ML LIQUID UDC GT SCH ×2 (08:11→21:43)
[2020-01-10] MEDS: PROTEIN SUPPLEMENT (PROSTAT) 30 ML LIQUID GT SCH ×2 (08:12→17:03)
[2020-01-10] MEDS: DIAZEPAM 5 MG TABLET GT SCH ×2 (08:12→21:44)
[2020-01-10] MEDS: METOPROLOL TARTRATE 25 MG TABLET GT SCH ×2 (08:12→21:44)
[2020-01-10] MEDS: COD LIVER OIL/ZINC OXIDE OINT 113 GM TUBE TP SCH ×2 (08:12→21:44)
[2020-01-10] MEDS: ASCORBIC ACID 500 MG TABLET PO SCH ×2 (08:12→21:44)
[2020-01-10] MEDS: PHENOBARBITAL 30 MG/7.5 ML LIQUID UDC GT SCH ×2 (08:12→21:44)
[2020-01-10] MEDS: HYDROGEN PEROXIDE 3% 118 ML BOTTLE TOP SCH ×2 (09:13→21:28)
[2020-01-10 19:57] VITALS: BP 124/77
[2020-01-10] MEDS: MULTIVIT, IRON, MIN NO. 8, FA TABLET GT SCH (21:44)
[2020-01-10] MEDS: MAGNESIUM OXIDE 400 MG TABLET GT SCH (21:44)
[2020-01-11] MEDS: OMEPRAZOLE 40MG GT SCH (05:29)
[2020-01-11] MEDS: VITAL AF 1.2 1,000 ML LIQUID GT PRN (06:34)
[2020-01-11 07:29] VITALS: BP 134/78
[2020-01-11 07:42] LABS: BASOPHILS % (AUTO) 0.7 % (0.0-2.0); EOSINOPHILS # (AUTO) 0.1 K/uL (0.0-0.7); LYMPHOCYTES # (AUTO) 1.3 K/uL (20.0-40.0); LYMPHOCYTES % (AUTO) 40.4 % (20.5-51.5); MEAN CORPUSCULAR HEMOGLOBIN 29.7 uug (24.7-32.8); MEAN CORPUSCULAR HGB CONC 34 g/dL (32.3-35.6); MEAN CORPUSCULAR VOLUME 87.1 fL (75.5-95.3); MONOCYTES # (AUTO) 0.3 K/uL (2.0-10.0); MONOCYTES % (AUTO) 9.3 % (0.0-11.0); NEUTROPHILS # (AUTO) 1.5 K/uL (1.8-8.9); NEUTROPHILS % (AUTO) 46.6 % (38.5-71.5); PLATELET COUNT (AUTO) 135 K/uL (179-408)
[2020-01-11 07:51] LABS: BILIRUBIN,TOTAL 0.2 mg/dL (0.2-1.0); CREATININE 0.6 mg/dL (0.6-1.3); TOTAL PROTEIN, SERUM 7.5 g/dL (6.4-8.2)
[2020-01-11 07:55] LABS: RED BLOOD CELL COUNT(AUTO) 2.47 MIL/uL (3.63-4.92)
[2020-01-11 07:58] LABS: WHITE BLOOD COUNT (AUTO) 3.2 K/uL (3.8-11.8)
[2020-01-11 07:59] LABS: HEMOGLOBIN 7.3 g/dL (10.9-14.3)
[2020-01-11 08:00] LABS: HEMATOCRIT 21.5 % (31.2-41.9)
[2020-01-11] MEDS: ASPIRIN 81 MG TAB.CHEW GT SCH (08:10)
[2020-01-11] MEDS: AMIODARONE HCL 200 MG TABLET GT SCH (08:10)
[2020-01-11] MEDS: levETIRAcetam 500 MG/5 ML LIQUID UDC GT SCH ×2 (08:10→21:20)
[2020-01-11] MEDS: METOPROLOL TARTRATE 25 MG TABLET GT SCH ×2 (08:11→21:21)
[2020-01-11] MEDS: ASCORBIC ACID 500 MG TABLET PO SCH ×2 (08:12→21:21)
[2020-01-11] MEDS: PROTEIN SUPPLEMENT (PROSTAT) 30 ML LIQUID GT SCH ×2 (08:12→17:47)
[2020-01-11] MEDS: DIAZEPAM 5 MG TABLET GT SCH ×2 (08:12→21:21)
[2020-01-11] MEDS: PHENOBARBITAL 30 MG/7.5 ML LIQUID UDC GT SCH ×2 (08:12→21:21)
[2020-01-11] MEDS: COD LIVER OIL/ZINC OXIDE OINT 113 GM TUBE TP SCH ×2 (09:00→21:21)
[2020-01-11] MEDS: HYDROGEN PEROXIDE 3% 118 ML BOTTLE TOP SCH ×2 (09:40→21:40)
--- NOTE | 2020-01-11 13:20 | NUR ---
SEEN BY FLASH MADISON.
[2020-01-11 20:11] VITALS: BP 105/67
[2020-01-11] MEDS: MAGNESIUM OXIDE 400 MG TABLET GT SCH (21:21)
[2020-01-11] MEDS: MULTIVIT, IRON, MIN NO. 8, FA TABLET GT SCH (21:21)
[2020-01-12] MEDS: OMEPRAZOLE 40MG GT SCH (06:35)
[2020-01-12 07:37] VITALS: BP 127/80
[2020-01-12] MEDS: ASPIRIN 81 MG TAB.CHEW GT SCH (09:00)
[2020-01-12] MEDS: AMIODARONE HCL 200 MG TABLET GT SCH (09:00)
[2020-01-12] MEDS: DIAZEPAM 5 MG TABLET GT SCH ×2 (09:00→21:18)
[2020-01-12] MEDS: PROTEIN SUPPLEMENT (PROSTAT) 30 ML LIQUID GT SCH ×2 (09:00→17:05)
[2020-01-12] MEDS: PHENOBARBITAL 30 MG/7.5 ML LIQUID UDC GT SCH ×2 (09:00→21:17)
[2020-01-12] MEDS: ASCORBIC ACID 500 MG TABLET PO SCH ×2 (09:00→21:18)
[2020-01-12] MEDS: COD LIVER OIL/ZINC OXIDE OINT 113 GM TUBE TP SCH ×2 (09:00→21:19)
[2020-01-12] MEDS: METOPROLOL TARTRATE 25 MG TABLET GT SCH ×2 (09:00→21:17)
[2020-01-12] MEDS: levETIRAcetam 500 MG/5 ML LIQUID UDC GT SCH ×2 (09:00→21:16)
[2020-01-12] MEDS: HYDROGEN PEROXIDE 3% 118 ML BOTTLE TOP SCH ×2 (09:08→21:39)
[2020-01-12 20:00] VITALS: BP 133/82
[2020-01-12] MEDS: MAGNESIUM OXIDE 400 MG TABLET GT SCH (21:17)
[2020-01-12] MEDS: MULTIVIT, IRON, MIN NO. 8, FA TABLET GT SCH (21:18)
[2020-01-13] MEDS: VITAL AF 1.2 1,000 ML LIQUID GT PRN (01:13)
[2020-01-13] MEDS: OMEPRAZOLE 40MG GT SCH (05:58)
[2020-01-13 07:50] VITALS: BP 111/66
[2020-01-13] MEDS: levETIRAcetam 500 MG/5 ML LIQUID UDC GT SCH ×2 (09:21→21:24)
[2020-01-13] MEDS: ASPIRIN 81 MG TAB.CHEW GT SCH (09:21)
[2020-01-13] MEDS: AMIODARONE HCL 200 MG TABLET GT SCH (09:22)
[2020-01-13] MEDS: ASCORBIC ACID 500 MG TABLET PO SCH ×2 (09:22→21:28)
[2020-01-13] MEDS: PROTEIN SUPPLEMENT (PROSTAT) 30 ML LIQUID GT SCH ×2 (09:22→17:31)
[2020-01-13] MEDS: METOPROLOL TARTRATE 25 MG TABLET GT SCH ×2 (09:22→21:27)
[2020-01-13] MEDS: COD LIVER OIL/ZINC OXIDE OINT 113 GM TUBE TP SCH ×2 (09:22→21:28)
[2020-01-13] MEDS: PHENOBARBITAL 30 MG/7.5 ML LIQUID UDC GT SCH ×2 (09:22→21:28)
[2020-01-13] MEDS: DIAZEPAM 5 MG TABLET GT SCH ×2 (09:22→21:28)
[2020-01-13] MEDS: HYDROGEN PEROXIDE 3% 118 ML BOTTLE TOP SCH ×2 (09:26→21:05)
[2020-01-13 20:00] VITALS: BP 120/71
[2020-01-13] MEDS: MAGNESIUM OXIDE 400 MG TABLET GT SCH (21:27)
[2020-01-13] MEDS: MULTIVIT, IRON, MIN NO. 8, FA TABLET GT SCH (21:28)
[2020-01-14] MEDS: VITAL AF 1.2 1,000 ML LIQUID GT PRN (02:26)
[2020-01-14] MEDS: OMEPRAZOLE 40MG GT SCH (06:09)
[2020-01-14 07:37] VITALS: BP 111/70
[2020-01-14] MEDS: ASPIRIN 81 MG TAB.CHEW GT SCH (08:05)
[2020-01-14] MEDS: levETIRAcetam 500 MG/5 ML LIQUID UDC GT SCH ×2 (08:06→21:10)
[2020-01-14] MEDS: DIAZEPAM 5 MG TABLET GT SCH ×2 (08:07→21:13)
[2020-01-14] MEDS: AMIODARONE HCL 200 MG TABLET GT SCH (08:07)
[2020-01-14] MEDS: METOPROLOL TARTRATE 25 MG TABLET GT SCH ×2 (08:07→21:12)
[2020-01-14] MEDS: ASCORBIC ACID 500 MG TABLET PO SCH ×2 (08:07→21:13)
[2020-01-14] MEDS: PROTEIN SUPPLEMENT (PROSTAT) 30 ML LIQUID GT SCH ×2 (08:07→17:29)
[2020-01-14] MEDS: PHENOBARBITAL 30 MG/7.5 ML LIQUID UDC GT SCH ×2 (08:07→21:13)
[2020-01-14] MEDS: COD LIVER OIL/ZINC OXIDE OINT 113 GM TUBE TP SCH ×2 (08:07→21:17)
[2020-01-14] MEDS: HYDROGEN PEROXIDE 3% 118 ML BOTTLE TOP SCH ×2 (10:20→21:26)
[2020-01-14 20:00] VITALS: BP 118/70
--- NOTE | 2020-01-14 20:05 | NUR ---
PT RECEIVED ON CONTINUOUS VENT. TRACH IN PLACED AND SECURED WITH TRACH TIE. BACK UP TRACH AND AMBU BAG AT BEDSIDE. TRACH CARE DONE WITHOUT COMPLICATIONS NOTED. . SUCTION SMALL AMOUNT THICK WHITE SECRETIONS. VENT CHECKED, ALARMS WORKING WELL AND AUDIBLE. NO DISTRESS NOTED AT THIS TIME. WILL CONTINUE TO MONITOR.
[2020-01-14] MEDS: MAGNESIUM OXIDE 400 MG TABLET GT SCH (21:12)
[2020-01-14] MEDS: MULTIVIT, IRON, MIN NO. 8, FA TABLET GT SCH (21:13)
[2020-01-15] MEDS: OMEPRAZOLE 40MG GT SCH (06:22)
[2020-01-15 07:36] VITALS: BP 116/64
[2020-01-15] MEDS: levETIRAcetam 500 MG/5 ML LIQUID UDC GT SCH ×2 (08:12→20:20)
[2020-01-15] MEDS: ASPIRIN 81 MG TAB.CHEW GT SCH (08:12)
[2020-01-15] MEDS: AMIODARONE HCL 200 MG TABLET GT SCH (08:12)
[2020-01-15] MEDS: COD LIVER OIL/ZINC OXIDE OINT 113 GM TUBE TP SCH ×2 (08:13→20:21)
[2020-01-15] MEDS: ASCORBIC ACID 500 MG TABLET PO SCH ×2 (08:13→20:21)
[2020-01-15] MEDS: METOPROLOL TARTRATE 25 MG TABLET GT SCH ×2 (08:13→20:21)
[2020-01-15] MEDS: PHENOBARBITAL 30 MG/7.5 ML LIQUID UDC GT SCH ×2 (08:13→20:21)
[2020-01-15] MEDS: PROTEIN SUPPLEMENT (PROSTAT) 30 ML LIQUID GT SCH ×2 (08:13→17:23)
[2020-01-15] MEDS: DIAZEPAM 5 MG TABLET GT SCH ×2 (08:13→20:21)
[2020-01-15] MEDS: HYDROGEN PEROXIDE 3% 118 ML BOTTLE TOP SCH ×2 (09:00→21:25)
[2020-01-15] MEDS: MAGNESIUM OXIDE 400 MG TABLET GT SCH (20:21)
[2020-01-15] MEDS: MULTIVIT, IRON, MIN NO. 8, FA TABLET GT SCH (20:21)
[2020-01-15] MEDS: VITAL AF 1.2 1,000 ML LIQUID GT PRN (21:39)
[2020-01-15 22:30] VITALS: BP 120/83
[2020-01-16] MEDS: OMEPRAZOLE 40MG GT SCH (05:20)
[2020-01-16] MEDS: HYDROGEN PEROXIDE 3% 118 ML BOTTLE TOP SCH ×2 (07:19→21:11)
[2020-01-16 07:56] VITALS: BP 96/60
[2020-01-16] MEDS: ASPIRIN 81 MG TAB.CHEW GT SCH (08:37)
[2020-01-16] MEDS: levETIRAcetam 500 MG/5 ML LIQUID UDC GT SCH ×2 (08:37→20:21)
[2020-01-16] MEDS: ASCORBIC ACID 500 MG TABLET PO SCH ×2 (08:37→20:21)
[2020-01-16] MEDS: DIAZEPAM 5 MG TABLET GT SCH ×2 (08:37→20:21)
[2020-01-16] MEDS: METOPROLOL TARTRATE 25 MG TABLET GT SCH ×2 (08:37→20:21)
[2020-01-16] MEDS: PHENOBARBITAL 30 MG/7.5 ML LIQUID UDC GT SCH ×2 (08:37→20:21)
[2020-01-16] MEDS: COD LIVER OIL/ZINC OXIDE OINT 113 GM TUBE TP SCH ×2 (08:37→20:21)
[2020-01-16] MEDS: PROTEIN SUPPLEMENT (PROSTAT) 30 ML LIQUID GT SCH ×2 (08:37→16:17)
[2020-01-16] MEDS: AMIODARONE HCL 200 MG TABLET GT SCH (08:37)
[2020-01-16] MEDS: MULTIVIT, IRON, MIN NO. 8, FA TABLET GT SCH (20:21)
[2020-01-16] MEDS: MAGNESIUM OXIDE 400 MG TABLET GT SCH (20:21)
[2020-01-16] MEDS: VITAL AF 1.2 1,000 ML LIQUID GT PRN (20:50)
[2020-01-16 22:41] VITALS: BP 116/72
[2020-01-17] MEDS: OMEPRAZOLE 40MG GT SCH (05:25)
[2020-01-17 08:07] VITALS: BP 116/71
[2020-01-17] MEDS: ASPIRIN 81 MG TAB.CHEW GT SCH (08:09)
[2020-01-17] MEDS: PHENOBARBITAL 30 MG/7.5 ML LIQUID UDC GT SCH ×2 (08:10→20:30)
[2020-01-17] MEDS: AMIODARONE HCL 200 MG TABLET GT SCH (08:10)
[2020-01-17] MEDS: levETIRAcetam 500 MG/5 ML LIQUID UDC GT SCH ×2 (08:10→20:30)
[2020-01-17] MEDS: METOPROLOL TARTRATE 25 MG TABLET GT SCH ×2 (08:10→20:30)
[2020-01-17] MEDS: PROTEIN SUPPLEMENT (PROSTAT) 30 ML LIQUID GT SCH ×2 (08:10→17:45)
[2020-01-17] MEDS: COD LIVER OIL/ZINC OXIDE OINT 113 GM TUBE TP SCH ×2 (08:11→20:30)
[2020-01-17] MEDS: DIAZEPAM 5 MG TABLET GT SCH ×2 (08:11→20:30)
[2020-01-17] MEDS: ASCORBIC ACID 500 MG TABLET PO SCH ×2 (08:11→20:30)
[2020-01-17] MEDS: HYDROGEN PEROXIDE 3% 118 ML BOTTLE TOP SCH ×2 (09:12→21:20)
[2020-01-17] MEDS: VITAL AF 1.2 1,000 ML LIQUID GT PRN (17:46)
[2020-01-17] MEDS: MAGNESIUM OXIDE 400 MG TABLET GT SCH (20:30)
[2020-01-17] MEDS: MULTIVIT, IRON, MIN NO. 8, FA TABLET GT SCH (20:30)
[2020-01-17 22:43] VITALS: BP 107/66
[2020-01-18] MEDS: OMEPRAZOLE 40MG GT SCH (05:17)
[2020-01-18 07:02] LABS: BASOPHILS % (AUTO) 0.6 % (0.0-2.0); EOSINOPHILS # (AUTO) 0.1 K/uL (0.0-0.7); EOSINOPHILS % (AUTO) 3.1 % (0.0-7.0); HEMATOCRIT 22.2 % (31.2-41.9); HEMOGLOBIN 7.7 g/dL (10.9-14.3); LYMPHOCYTES # (AUTO) 1.3 K/uL (20.0-40.0); LYMPHOCYTES % (AUTO) 36.6 % (20.5-51.5); MEAN CORPUSCULAR HEMOGLOBIN 30.4 uug (24.7-32.8); MEAN CORPUSCULAR HGB CONC 35 g/dL (32.3-35.6); MONOCYTES # (AUTO) 0.5 K/uL (2.0-10.0); MONOCYTES % (AUTO) 13.2 % (0.0-11.0); NEUTROPHILS # (AUTO) 1.6 K/uL (1.8-8.9); NEUTROPHILS % (AUTO) 46.5 % (38.5-71.5); PLATELET COUNT (AUTO) 131 K/uL (179-408); RED BLOOD CELL COUNT(AUTO) 2.52 MIL/uL (3.63-4.92); WHITE BLOOD COUNT (AUTO) 3.4 K/uL (3.8-11.8)
[2020-01-18 07:34] VITALS: BP 129/81
[2020-01-18 07:47] LABS: BILIRUBIN,TOTAL 0.2 mg/dL (0.2-1.0); CREATININE 0.7 mg/dL (0.6-1.3); PHOSPHOROUS 4.1 mg/dL (2.5-4.9); POTASSIUM 4.1 mmol/L (3.5-5.1); TOTAL PROTEIN, SERUM 7.4 g/dL (6.4-8.2)
[2020-01-18] MEDS: ASPIRIN 81 MG TAB.CHEW GT SCH (08:13)
[2020-01-18] MEDS: levETIRAcetam 500 MG/5 ML LIQUID UDC GT SCH ×2 (08:14→21:36)
[2020-01-18] MEDS: AMIODARONE HCL 200 MG TABLET GT SCH (08:14)
[2020-01-18] MEDS: PHENOBARBITAL 30 MG/7.5 ML LIQUID UDC GT SCH ×2 (08:15→21:37)
[2020-01-18] MEDS: METOPROLOL TARTRATE 25 MG TABLET GT SCH ×2 (08:15→21:36)
[2020-01-18] MEDS: PROTEIN SUPPLEMENT (PROSTAT) 30 ML LIQUID GT SCH ×2 (08:15→21:41)
[2020-01-18] MEDS: DIAZEPAM 5 MG TABLET GT SCH ×2 (08:15→21:40)
[2020-01-18] MEDS: ASCORBIC ACID 500 MG TABLET PO SCH ×2 (08:16→21:40)
[2020-01-18] MEDS: COD LIVER OIL/ZINC OXIDE OINT 113 GM TUBE TP SCH ×2 (08:16→21:40)
[2020-01-18] MEDS: HYDROGEN PEROXIDE 3% 118 ML BOTTLE TOP SCH ×2 (09:00→21:23)
[2020-01-18 19:58] VITALS: BP 139/80
[2020-01-18] MEDS: MAGNESIUM OXIDE 400 MG TABLET GT SCH (21:36)
[2020-01-18] MEDS: MULTIVIT, IRON, MIN NO. 8, FA TABLET GT SCH (21:40)
[2020-01-18] MEDS: NEOMY/BACITRA/POLYMYXIN B OINT UD PACKET TP SCH (21:41)
[2020-01-19] MEDS: OMEPRAZOLE 40MG GT SCH (06:28)
[2020-01-19 08:07] VITALS: BP 124/79
[2020-01-19] MEDS: ASPIRIN 81 MG TAB.CHEW GT SCH (08:45)
[2020-01-19] MEDS: levETIRAcetam 500 MG/5 ML LIQUID UDC GT SCH ×2 (08:45→21:23)
[2020-01-19] MEDS: NEOMY/BACITRA/POLYMYXIN B OINT UD PACKET TP SCH ×2 (08:46→21:27)
[2020-01-19] MEDS: COD LIVER OIL/ZINC OXIDE OINT 113 GM TUBE TP SCH ×2 (08:46→21:27)
[2020-01-19] MEDS: ASCORBIC ACID 500 MG TABLET PO SCH ×2 (08:46→21:26)
[2020-01-19] MEDS: PROTEIN SUPPLEMENT (PROSTAT) 30 ML LIQUID GT SCH ×2 (08:46→21:26)
[2020-01-19] MEDS: DIAZEPAM 5 MG TABLET GT SCH ×2 (08:47→21:26)
[2020-01-19] MEDS: PHENOBARBITAL 30 MG/7.5 ML LIQUID UDC GT SCH ×2 (08:47→21:26)
[2020-01-19] MEDS: HYDROGEN PEROXIDE 3% 118 ML BOTTLE TOP SCH ×2 (09:34→21:22)
[2020-01-19] MEDS: AMIODARONE HCL 200 MG TABLET GT SCH (09:46)
[2020-01-19] MEDS: METOPROLOL TARTRATE 25 MG TABLET GT SCH ×2 (09:46→21:25)
[2020-01-19] MEDS: VITAL AF 1.2 1,000 ML LIQUID GT PRN (16:58)
[2020-01-19 19:56] VITALS: BP 144/85
[2020-01-19] MEDS: MAGNESIUM OXIDE 400 MG TABLET GT SCH (21:25)
[2020-01-19] MEDS: MULTIVIT, IRON, MIN NO. 8, FA TABLET GT SCH (21:26)
[2020-01-20] MEDS: OMEPRAZOLE 40MG GT SCH (05:28)
[2020-01-20 07:59] VITALS: BP 105/67
[2020-01-20] MEDS: ASPIRIN 81 MG TAB.CHEW GT SCH (08:52)
[2020-01-20] MEDS: levETIRAcetam 500 MG/5 ML LIQUID UDC GT SCH ×2 (08:52→21:26)
[2020-01-20] MEDS: AMIODARONE HCL 200 MG TABLET GT SCH (08:52)
[2020-01-20] MEDS: METOPROLOL TARTRATE 25 MG TABLET GT SCH ×2 (08:53→21:27)
[2020-01-20] MEDS: PROTEIN SUPPLEMENT (PROSTAT) 30 ML LIQUID GT SCH ×2 (08:53→21:30)
[2020-01-20] MEDS: ASCORBIC ACID 500 MG TABLET PO SCH ×2 (08:53→21:31)
[2020-01-20] MEDS: NEOMY/BACITRA/POLYMYXIN B OINT UD PACKET TP SCH ×2 (08:54→21:32)
[2020-01-20] MEDS: COD LIVER OIL/ZINC OXIDE OINT 113 GM TUBE TP SCH ×2 (08:54→21:31)
[2020-01-20] MEDS: PHENOBARBITAL 30 MG/7.5 ML LIQUID UDC GT SCH ×2 (08:58→21:29)
[2020-01-20] MEDS: DIAZEPAM 5 MG TABLET GT SCH ×2 (08:58→21:31)
[2020-01-20] MEDS: HYDROGEN PEROXIDE 3% 118 ML BOTTLE TOP SCH ×2 (09:07→21:24)
[2020-01-20] MEDS: VITAL AF 1.2 1,000 ML LIQUID GT PRN (14:43)
[2020-01-20 19:57] VITALS: BP 119/73
[2020-01-20] MEDS: MAGNESIUM OXIDE 400 MG TABLET GT SCH (21:27)
[2020-01-20] MEDS: MULTIVIT, IRON, MIN NO. 8, FA TABLET GT SCH (21:31)
[2020-01-21] MEDS: OMEPRAZOLE 40MG GT SCH (06:09)
[2020-01-21 07:51] VITALS: BP 116/70
[2020-01-21] MEDS: AMIODARONE HCL 200 MG TABLET GT SCH (08:05)
[2020-01-21] MEDS: ASPIRIN 81 MG TAB.CHEW GT SCH (08:05)
[2020-01-21] MEDS: levETIRAcetam 500 MG/5 ML LIQUID UDC GT SCH ×2 (08:06→20:04)
[2020-01-21] MEDS: METOPROLOL TARTRATE 25 MG TABLET GT SCH ×2 (08:06→20:05)
[2020-01-21] MEDS: PROTEIN SUPPLEMENT (PROSTAT) 30 ML LIQUID GT SCH ×2 (08:07→20:08)
[2020-01-21] MEDS: PHENOBARBITAL 30 MG/7.5 ML LIQUID UDC GT SCH ×2 (08:07→20:08)
[2020-01-21] MEDS: ASCORBIC ACID 500 MG TABLET PO SCH ×2 (08:07→20:10)
[2020-01-21] MEDS: DIAZEPAM 5 MG TABLET GT SCH ×2 (08:07→20:10)
[2020-01-21] MEDS: COD LIVER OIL/ZINC OXIDE OINT 113 GM TUBE TP SCH ×2 (09:15→20:11)
[2020-01-21] MEDS: NEOMY/BACITRA/POLYMYXIN B OINT UD PACKET TP SCH ×2 (09:15→20:11)
[2020-01-21] MEDS: HYDROGEN PEROXIDE 3% 118 ML BOTTLE TOP SCH ×2 (10:20→21:04)
[2020-01-21] MEDS: VITAL AF 1.2 1,000 ML LIQUID GT PRN (11:15)
[2020-01-21] MEDS: MULTIVIT, IRON, MIN NO. 8, FA TABLET GT SCH (20:08)
[2020-01-21] MEDS: MAGNESIUM OXIDE 400 MG TABLET GT SCH (20:08)
[2020-01-22] MEDS: OMEPRAZOLE 40MG GT SCH (05:55)
[2020-01-22] MEDS: VITAL AF 1.2 1,000 ML LIQUID GT PRN (06:23)
[2020-01-22 07:49] VITALS: BP 106/69
[2020-01-22] MEDS: HYDROGEN PEROXIDE 3% 118 ML BOTTLE TOP SCH ×2 (09:00→21:36)
[2020-01-22] MEDS: ASPIRIN 81 MG TAB.CHEW GT SCH (09:05)
[2020-01-22] MEDS: AMIODARONE HCL 200 MG TABLET GT SCH (09:05)
[2020-01-22] MEDS: levETIRAcetam 500 MG/5 ML LIQUID UDC GT SCH ×2 (09:05→21:26)
[2020-01-22] MEDS: COD LIVER OIL/ZINC OXIDE OINT 113 GM TUBE TP SCH ×2 (09:06→21:27)
[2020-01-22] MEDS: PHENOBARBITAL 30 MG/7.5 ML LIQUID UDC GT SCH ×2 (09:06→21:27)
[2020-01-22] MEDS: PROTEIN SUPPLEMENT (PROSTAT) 30 ML LIQUID GT SCH ×2 (09:06→21:27)
[2020-01-22] MEDS: METOPROLOL TARTRATE 25 MG TABLET GT SCH ×2 (09:06→21:27)
[2020-01-22] MEDS: ASCORBIC ACID 500 MG TABLET PO SCH ×2 (09:06→21:27)
[2020-01-22] MEDS: NEOMY/BACITRA/POLYMYXIN B OINT UD PACKET TP SCH ×2 (09:06→21:27)
[2020-01-22] MEDS: DIAZEPAM 5 MG TABLET GT SCH ×2 (09:06→21:27)
[2020-01-22 20:14] VITALS: BP 125/77
[2020-01-22] MEDS: MAGNESIUM OXIDE 400 MG TABLET GT SCH (21:27)
[2020-01-22] MEDS: MULTIVIT, IRON, MIN NO. 8, FA TABLET GT SCH (21:27)
[2020-01-23] MEDS: VITAL AF 1.2 1,000 ML LIQUID GT PRN (03:01)
[2020-01-23] MEDS: OMEPRAZOLE 40MG GT SCH (06:00)
[2020-01-23 07:45] VITALS: BP 109/69
--- NOTE | 2020-01-23 08:34 | NUR ---
PT.WAS SEEN AND EXAMINED BY DR. RANDOLPH AND WITH NNO.
--- NOTE | 2020-01-23 08:35 | NUR ---
NEW ORDERS CARRIED OUT FROM DR. TOLBERT .
[2020-01-23] MEDS: METOPROLOL TARTRATE 25 MG TABLET GT SCH ×2 (09:00→20:39)
[2020-01-23] MEDS: HYDROGEN PEROXIDE 3% 118 ML BOTTLE TOP SCH ×2 (09:22→21:07)
[2020-01-23] MEDS: ASPIRIN 81 MG TAB.CHEW GT SCH (09:26)
[2020-01-23] MEDS: AMIODARONE HCL 200 MG TABLET GT SCH (09:34)
[2020-01-23] MEDS: levETIRAcetam 500 MG/5 ML LIQUID UDC GT SCH ×2 (09:38→20:37)
[2020-01-23] MEDS: DIAZEPAM 5 MG TABLET GT SCH ×2 (09:39→20:39)
[2020-01-23] MEDS: COD LIVER OIL/ZINC OXIDE OINT 113 GM TUBE TP SCH ×2 (09:39→20:39)
[2020-01-23] MEDS: PROTEIN SUPPLEMENT (PROSTAT) 30 ML LIQUID GT SCH ×2 (09:39→20:39)
[2020-01-23] MEDS: PHENOBARBITAL 30 MG/7.5 ML LIQUID UDC GT SCH ×2 (09:39→20:37)
[2020-01-23] MEDS: ASCORBIC ACID 500 MG TABLET PO SCH ×2 (09:39→20:39)
[2020-01-23] MEDS: NEOMY/BACITRA/POLYMYXIN B OINT UD PACKET TP SCH ×2 (09:39→20:40)
[2020-01-23 20:00] VITALS: BP 123/70
[2020-01-23] MEDS: MAGNESIUM OXIDE 400 MG TABLET GT SCH (20:38)
[2020-01-23] MEDS: MULTIVIT, IRON, MIN NO. 8, FA TABLET GT SCH (20:39)
[2020-01-24] MEDS: OMEPRAZOLE 40MG GT SCH (05:22)
[2020-01-24] MEDS: VITAL AF 1.2 1,000 ML LIQUID GT PRN (05:22)
[2020-01-24] MEDS: PROTEIN SUPPLEMENT (PROSTAT) 30 ML LIQUID GT SCH ×2 (08:33→21:18)
[2020-01-24] MEDS: levETIRAcetam 500 MG/5 ML LIQUID UDC GT SCH ×2 (08:33→21:18)
[2020-01-24] MEDS: ASCORBIC ACID 500 MG TABLET PO SCH ×2 (08:33→21:19)
[2020-01-24] MEDS: ASPIRIN 81 MG TAB.CHEW GT SCH (08:33)
[2020-01-24] MEDS: DIAZEPAM 5 MG TABLET GT SCH ×2 (08:33→21:19)
[2020-01-24] MEDS: PHENOBARBITAL 30 MG/7.5 ML LIQUID UDC GT SCH ×2 (08:33→21:18)
[2020-01-24] MEDS: NEOMY/BACITRA/POLYMYXIN B OINT UD PACKET TP SCH ×2 (08:34→21:19)
[2020-01-24] MEDS: COD LIVER OIL/ZINC OXIDE OINT 113 GM TUBE TP SCH ×2 (08:34→21:19)
[2020-01-24 09:00] VITALS: BP 135/69
[2020-01-24] MEDS: AMIODARONE HCL 200 MG TABLET GT SCH (09:00)
[2020-01-24] MEDS: METOPROLOL TARTRATE 25 MG TABLET GT SCH ×2 (09:00→21:18)
[2020-01-24] MEDS: HYDROGEN PEROXIDE 3% 118 ML BOTTLE TOP SCH ×2 (09:52→21:55)
[2020-01-24 20:30] VITALS: BP 105/44
[2020-01-24] MEDS: MAGNESIUM OXIDE 400 MG TABLET GT SCH (21:18)
[2020-01-24] MEDS: MULTIVIT, IRON, MIN NO. 8, FA TABLET GT SCH (21:18)
[2020-01-25] MEDS: OMEPRAZOLE 40MG GT SCH (06:06)
[2020-01-25 07:51] VITALS: BP 140/82
[2020-01-25] MEDS: ASPIRIN 81 MG TAB.CHEW GT SCH (09:08)
[2020-01-25] MEDS: levETIRAcetam 500 MG/5 ML LIQUID UDC GT SCH ×2 (09:08→21:11)
[2020-01-25] MEDS: AMIODARONE HCL 200 MG TABLET GT SCH (09:08)
[2020-01-25] MEDS: PROTEIN SUPPLEMENT (PROSTAT) 30 ML LIQUID GT SCH ×2 (09:09→21:12)
[2020-01-25] MEDS: METOPROLOL TARTRATE 25 MG TABLET GT SCH ×2 (09:09→21:11)
[2020-01-25] MEDS: COD LIVER OIL/ZINC OXIDE OINT 113 GM TUBE TP SCH ×2 (09:09→21:13)
[2020-01-25] MEDS: DIAZEPAM 5 MG TABLET GT SCH ×2 (09:09→21:12)
[2020-01-25] MEDS: PHENOBARBITAL 30 MG/7.5 ML LIQUID UDC GT SCH ×2 (09:09→21:12)
[2020-01-25] MEDS: NEOMY/BACITRA/POLYMYXIN B OINT UD PACKET TP SCH ×2 (09:09→21:13)
[2020-01-25] MEDS: ASCORBIC ACID 500 MG TABLET PO SCH ×2 (09:09→21:12)
[2020-01-25] MEDS: HYDROGEN PEROXIDE 3% 118 ML BOTTLE TOP SCH ×2 (10:20→21:40)
--- NOTE | 2020-01-25 17:51 | NUR ---
SEEN AND EXAMINED BY FLASH Mclaughlin AND DR. ANTON AND WITH NNO.
[2020-01-25 20:53] VITALS: BP 129/79
[2020-01-25] MEDS: MULTIVIT, IRON, MIN NO. 8, FA TABLET GT SCH (21:12)
[2020-01-25] MEDS: MAGNESIUM OXIDE 400 MG TABLET GT SCH (21:12)
[2020-01-26] MEDS: OMEPRAZOLE 40MG GT SCH (05:11)
[2020-01-26 06:16] LABS: EOSINOPHILS # (AUTO) 0.1 K/uL (0.0-0.7); MONOCYTES # (AUTO) 0.3 K/uL (2.0-10.0); MONOCYTES % (AUTO) 9.3 % (0.0-11.0); NEUTROPHILS # (AUTO) 1.2 K/uL (1.8-8.9); RED BLOOD CELL COUNT(AUTO) 2.89 MIL/uL (3.63-4.92); WHITE BLOOD COUNT (AUTO) 2.9 K/uL (3.8-11.8)
[2020-01-26 06:30] LABS: CREATININE 0.6 mg/dL (0.6-1.3); POTASSIUM 3.9 mmol/L (3.5-5.1)
[2020-01-26 06:46] LABS: BASOPHILS % (AUTO) 0.6 % (0.0-2.0); EOSINOPHILS % (AUTO) 4.4 % (0.0-7.0); HEMATOCRIT 25.5 % (31.2-41.9); HEMOGLOBIN 8.7 g/dL (10.9-14.3); LYMPHOCYTES # (AUTO) 1.3 K/uL (20.0-40.0); LYMPHOCYTES % (AUTO) 44.2 % (20.5-51.5); MEAN CORPUSCULAR HEMOGLOBIN 30.1 uug (24.7-32.8); MEAN CORPUSCULAR HGB CONC 34 g/dL (32.3-35.6); NEUTROPHILS % (AUTO) 41.5 % (38.5-71.5)
[2020-01-26 07:02] LABS: PLATELET COUNT (AUTO) 165 K/uL (179-408)
[2020-01-26 07:55] VITALS: BP 102/60
[2020-01-26] MEDS: HYDROGEN PEROXIDE 3% 118 ML BOTTLE TOP SCH ×2 (09:00→21:01)
[2020-01-26 09:03] LABS: BASOPHILS % (MANUAL) 1 % (0-2); EOSINOPHILS % (MANUAL) 7 % (0-8); LYMPHOCYTES % (MANUAL) 49 % (20-40); MONOCYTES % (MANUAL) 4 % (2-10); NEUTROPHILS % (MANUAL) 39 % (42-75)
[2020-01-26] MEDS: AMIODARONE HCL 200 MG TABLET GT SCH (09:08)
[2020-01-26] MEDS: levETIRAcetam 500 MG/5 ML LIQUID UDC GT SCH ×2 (09:08→20:16)
[2020-01-26] MEDS: ASPIRIN 81 MG TAB.CHEW GT SCH (09:08)
[2020-01-26] MEDS: NEOMY/BACITRA/POLYMYXIN B OINT UD PACKET TP SCH ×2 (09:09→20:17)
[2020-01-26] MEDS: METOPROLOL TARTRATE 25 MG TABLET GT SCH ×2 (09:09→20:19)
[2020-01-26] MEDS: DIAZEPAM 5 MG TABLET GT SCH ×2 (09:09→20:16)
[2020-01-26] MEDS: PHENOBARBITAL 30 MG/7.5 ML LIQUID UDC GT SCH ×2 (09:09→20:16)
[2020-01-26] MEDS: ASCORBIC ACID 500 MG TABLET PO SCH ×2 (09:09→20:17)
[2020-01-26] MEDS: PROTEIN SUPPLEMENT (PROSTAT) 30 ML LIQUID GT SCH ×2 (09:09→20:16)
[2020-01-26] MEDS: COD LIVER OIL/ZINC OXIDE OINT 113 GM TUBE TP SCH ×2 (09:09→20:17)
[2020-01-26] MEDS: VITAL AF 1.2 1,000 ML LIQUID GT PRN (17:06)
[2020-01-26] MEDS: MAGNESIUM OXIDE 400 MG TABLET GT SCH (20:16)
[2020-01-26] MEDS: MULTIVIT, IRON, MIN NO. 8, FA TABLET GT SCH (20:16)
[2020-01-26 20:19] VITALS: BP 136/79
[2020-01-27] MEDS: OMEPRAZOLE 40MG GT SCH (05:08)
[2020-01-27] MEDS: HYDROGEN PEROXIDE 3% 118 ML BOTTLE TOP SCH ×2 (07:29→21:11)
[2020-01-27 07:45] VITALS: BP 119/62
[2020-01-27] MEDS: ASPIRIN 81 MG TAB.CHEW GT SCH (09:04)
[2020-01-27] MEDS: AMIODARONE HCL 200 MG TABLET GT SCH (09:05)
[2020-01-27] MEDS: levETIRAcetam 500 MG/5 ML LIQUID UDC GT SCH ×2 (09:06→20:52)
[2020-01-27] MEDS: PHENOBARBITAL 30 MG/7.5 ML LIQUID UDC GT SCH ×2 (09:07→20:52)
[2020-01-27] MEDS: METOPROLOL TARTRATE 25 MG TABLET GT SCH ×2 (09:07→20:52)
[2020-01-27] MEDS: PROTEIN SUPPLEMENT (PROSTAT) 30 ML LIQUID GT SCH ×2 (09:08→20:52)
[2020-01-27] MEDS: NEOMY/BACITRA/POLYMYXIN B OINT UD PACKET TP SCH ×2 (09:08→20:53)
[2020-01-27] MEDS: DIAZEPAM 5 MG TABLET GT SCH ×2 (09:08→20:53)
[2020-01-27] MEDS: ASCORBIC ACID 500 MG TABLET PO SCH ×2 (09:08→20:53)
[2020-01-27] MEDS: COD LIVER OIL/ZINC OXIDE OINT 113 GM TUBE TP SCH ×2 (09:08→20:53)
[2020-01-27 20:23] VITALS: BP 139/76
[2020-01-27] MEDS: MAGNESIUM OXIDE 400 MG TABLET GT SCH (20:52)
[2020-01-27] MEDS: MULTIVIT, IRON, MIN NO. 8, FA TABLET GT SCH (20:53)
[2020-01-28] MEDS: OMEPRAZOLE 40MG GT SCH (06:46)
[2020-01-28 07:37] VITALS: BP 130/80
[2020-01-28] MEDS: ASPIRIN 81 MG TAB.CHEW GT SCH (09:07)
[2020-01-28] MEDS: PROTEIN SUPPLEMENT (PROSTAT) 30 ML LIQUID GT SCH ×2 (09:08→21:27)
[2020-01-28] MEDS: DIAZEPAM 5 MG TABLET GT SCH ×2 (09:08→21:27)
[2020-01-28] MEDS: ASCORBIC ACID 500 MG TABLET PO SCH ×2 (09:08→21:27)
[2020-01-28] MEDS: COD LIVER OIL/ZINC OXIDE OINT 113 GM TUBE TP SCH ×2 (09:08→21:27)
[2020-01-28] MEDS: METOPROLOL TARTRATE 25 MG TABLET GT SCH ×2 (09:08→21:26)
[2020-01-28] MEDS: AMIODARONE HCL 200 MG TABLET GT SCH (09:08)
[2020-01-28] MEDS: PHENOBARBITAL 30 MG/7.5 ML LIQUID UDC GT SCH ×2 (09:08→21:27)
[2020-01-28] MEDS: levETIRAcetam 500 MG/5 ML LIQUID UDC GT SCH ×2 (09:08→21:26)
[2020-01-28] MEDS: NEOMY/BACITRA/POLYMYXIN B OINT UD PACKET TP SCH ×2 (09:08→21:28)
[2020-01-28] MEDS: HYDROGEN PEROXIDE 3% 118 ML BOTTLE TOP SCH ×2 (10:30→21:00)
[2020-01-28] MEDS: VITAL AF 1.2 1,000 ML LIQUID GT PRN (11:42)
[2020-01-28 20:08] VITALS: BP 111/67
[2020-01-28] MEDS: MAGNESIUM OXIDE 400 MG TABLET GT SCH (21:26)
[2020-01-28] MEDS: MULTIVIT, IRON, MIN NO. 8, FA TABLET GT SCH (21:27)
[2020-01-29] MEDS: OMEPRAZOLE 40MG GT SCH (06:14)
[2020-01-29 07:56] VITALS: BP 143/84
[2020-01-29] MEDS: ASPIRIN 81 MG TAB.CHEW GT SCH (08:49)
[2020-01-29] MEDS: AMIODARONE HCL 200 MG TABLET GT SCH (08:50)
[2020-01-29] MEDS: levETIRAcetam 500 MG/5 ML LIQUID UDC GT SCH ×2 (08:51→21:25)
[2020-01-29] MEDS: METOPROLOL TARTRATE 25 MG TABLET GT SCH ×2 (08:52→21:40)
[2020-01-29] MEDS: COD LIVER OIL/ZINC OXIDE OINT 113 GM TUBE TP SCH ×2 (08:52→21:26)
[2020-01-29] MEDS: DIAZEPAM 5 MG TABLET GT SCH ×2 (08:52→21:26)
[2020-01-29] MEDS: PHENOBARBITAL 30 MG/7.5 ML LIQUID UDC GT SCH ×2 (08:52→21:26)
[2020-01-29] MEDS: NEOMY/BACITRA/POLYMYXIN B OINT UD PACKET TP SCH ×2 (08:52→21:26)
[2020-01-29] MEDS: PROTEIN SUPPLEMENT (PROSTAT) 30 ML LIQUID GT SCH ×2 (08:52→21:26)
[2020-01-29] MEDS: ASCORBIC ACID 500 MG TABLET PO SCH ×2 (08:52→21:26)
[2020-01-29] MEDS: HYDROGEN PEROXIDE 3% 118 ML BOTTLE TOP SCH ×2 (09:54→21:52)
[2020-01-29] MEDS: VITAL AF 1.2 1,000 ML LIQUID GT PRN (11:17)
[2020-01-29 20:35] VITALS: BP 160/83
[2020-01-29] MEDS: MULTIVIT, IRON, MIN NO. 8, FA TABLET GT SCH (21:26)
[2020-01-29] MEDS: MAGNESIUM OXIDE 400 MG TABLET GT SCH (21:26)
[2020-01-30] MEDS: OMEPRAZOLE 40MG GT SCH (05:52)
--- NOTE | 2020-01-30 08:00 | NUR ---
PATIENT FOUND WITH F/C DISLODGED, LAIRD INTACT WITH SOME IRRITATION AND PURPLE DISCOLORATION ON LABIA MINORA, F/C WAS INSERTED AGAIN , NO BLEEDING NOTED, PATENT AND DRAINING YELLOW URINE. WILL CONTINUE MONITORING.
[2020-01-30] MEDS: levETIRAcetam 500 MG/5 ML LIQUID UDC GT SCH ×2 (08:10→20:48)
[2020-01-30] MEDS: AMIODARONE HCL 200 MG TABLET GT SCH (08:10)
[2020-01-30] MEDS: ASPIRIN 81 MG TAB.CHEW GT SCH (08:10)
[2020-01-30] MEDS: METOPROLOL TARTRATE 25 MG TABLET GT SCH ×2 (08:11→20:49)
[2020-01-30] MEDS: PHENOBARBITAL 30 MG/7.5 ML LIQUID UDC GT SCH ×2 (08:11→20:49)
[2020-01-30] MEDS: DIAZEPAM 5 MG TABLET GT SCH ×2 (08:11→20:50)
[2020-01-30] MEDS: PROTEIN SUPPLEMENT (PROSTAT) 30 ML LIQUID GT SCH ×2 (08:11→20:49)
[2020-01-30] MEDS: NEOMY/BACITRA/POLYMYXIN B OINT UD PACKET TP SCH ×2 (08:13→20:50)
[2020-01-30] MEDS: ASCORBIC ACID 500 MG TABLET PO SCH ×2 (08:13→20:50)
[2020-01-30] MEDS: COD LIVER OIL/ZINC OXIDE OINT 113 GM TUBE TP SCH ×2 (08:13→20:50)
[2020-01-30 08:25] VITALS: BP 117/71
[2020-01-30] MEDS: HYDROGEN PEROXIDE 3% 118 ML BOTTLE TOP SCH ×2 (09:00→21:00)
[2020-01-30] MEDS: VITAL AF 1.2 1,000 ML LIQUID GT PRN (09:45)
[2020-01-30 20:17] VITALS: BP 100/59
[2020-01-30] MEDS: MAGNESIUM OXIDE 400 MG TABLET GT SCH (20:36)
[2020-01-30] MEDS: MULTIVIT, IRON, MIN NO. 8, FA TABLET GT SCH (20:50)
[2020-01-31] MEDS: VITAL AF 1.2 1,000 ML LIQUID GT PRN (05:26)
[2020-01-31] MEDS: OMEPRAZOLE 40MG GT SCH (05:26)
[2020-01-31 07:44] VITALS: BP 135/83
[2020-01-31] MEDS: ASPIRIN 81 MG TAB.CHEW GT SCH (08:40)
[2020-01-31] MEDS: AMIODARONE HCL 200 MG TABLET GT SCH (08:40)
[2020-01-31] MEDS: levETIRAcetam 500 MG/5 ML LIQUID UDC GT SCH ×2 (08:41→21:13)
[2020-01-31] MEDS: METOPROLOL TARTRATE 25 MG TABLET GT SCH ×2 (08:41→21:13)
[2020-01-31] MEDS: COD LIVER OIL/ZINC OXIDE OINT 113 GM TUBE TP SCH ×2 (08:42→21:14)
[2020-01-31] MEDS: NEOMY/BACITRA/POLYMYXIN B OINT UD PACKET TP SCH ×2 (08:42→21:14)
[2020-01-31] MEDS: DIAZEPAM 5 MG TABLET GT SCH ×2 (08:42→21:13)
[2020-01-31] MEDS: PHENOBARBITAL 30 MG/7.5 ML LIQUID UDC GT SCH ×2 (08:42→21:13)
[2020-01-31] MEDS: PROTEIN SUPPLEMENT (PROSTAT) 30 ML LIQUID GT SCH ×2 (08:42→21:13)
[2020-01-31] MEDS: ASCORBIC ACID 500 MG TABLET PO SCH ×2 (08:42→21:13)
[2020-01-31] MEDS: HYDROGEN PEROXIDE 3% 118 ML BOTTLE TOP SCH ×2 (10:30→21:21)
[2020-01-31] MEDS: MULTIVIT, IRON, MIN NO. 8, FA TABLET GT SCH (21:13)
[2020-01-31] MEDS: MAGNESIUM OXIDE 400 MG TABLET GT SCH (21:13)
[2020-01-31 23:33] VITALS: BP 127/77
[2020-02-01] MEDS: ACETAMINOPHEN 650 MG/20 ML UDC- SA PATIENTS-PAIN ONLY GT PRN (01:38)
[2020-02-01] MEDS: OMEPRAZOLE 40MG GT SCH (05:56)
[2020-02-01 07:38] VITALS: BP 124/73
[2020-02-01 07:58] VITALS: BP 110/62
[2020-02-01] MEDS: AMIODARONE HCL 200 MG TABLET GT SCH (08:40)
[2020-02-01] MEDS: levETIRAcetam 500 MG/5 ML LIQUID UDC GT SCH ×2 (08:40→21:14)
[2020-02-01] MEDS: ASPIRIN 81 MG TAB.CHEW GT SCH (08:40)
[2020-02-01] MEDS: DIAZEPAM 5 MG TABLET GT SCH ×2 (08:41→21:15)
[2020-02-01] MEDS: ASCORBIC ACID 500 MG TABLET PO SCH ×2 (08:41→21:15)
[2020-02-01] MEDS: COD LIVER OIL/ZINC OXIDE OINT 113 GM TUBE TP SCH ×2 (08:41→21:15)
[2020-02-01] MEDS: NEOMY/BACITRA/POLYMYXIN B OINT UD PACKET TP SCH (08:41)
[2020-02-01] MEDS: METOPROLOL TARTRATE 25 MG TABLET GT SCH ×2 (08:41→21:15)
[2020-02-01] MEDS: PHENOBARBITAL 30 MG/7.5 ML LIQUID UDC GT SCH ×2 (08:41→21:15)
[2020-02-01] MEDS: PROTEIN SUPPLEMENT (PROSTAT) 30 ML LIQUID GT SCH ×2 (08:41→21:15)
[2020-02-01] MEDS: HYDROGEN PEROXIDE 3% 118 ML BOTTLE TOP SCH ×2 (09:00→21:31)
[2020-02-01 20:45] VITALS: BP 147/82
[2020-02-01] MEDS: MULTIVIT, IRON, MIN NO. 8, FA TABLET GT SCH (21:15)
[2020-02-01] MEDS: MAGNESIUM OXIDE 400 MG TABLET GT SCH (21:15)
[2020-02-02] MEDS: OMEPRAZOLE 40MG GT SCH (06:44)
[2020-02-02] MEDS: VITAL AF 1.2 1,000 ML LIQUID GT PRN (06:59)
[2020-02-02 07:40] VITALS: BP 129/83
[2020-02-02] MEDS: ASCORBIC ACID 500 MG TABLET PO SCH ×2 (09:07→20:54)
[2020-02-02] MEDS: levETIRAcetam 500 MG/5 ML LIQUID UDC GT SCH ×2 (09:07→20:50)
[2020-02-02] MEDS: ASPIRIN 81 MG TAB.CHEW GT SCH (09:07)
[2020-02-02] MEDS: AMIODARONE HCL 200 MG TABLET GT SCH (09:07)
[2020-02-02] MEDS: COD LIVER OIL/ZINC OXIDE OINT 113 GM TUBE TP SCH ×2 (09:07→20:54)
[2020-02-02] MEDS: PROTEIN SUPPLEMENT (PROSTAT) 30 ML LIQUID GT SCH ×2 (09:07→20:54)
[2020-02-02] MEDS: DIAZEPAM 5 MG TABLET GT SCH ×2 (09:07→20:54)
[2020-02-02] MEDS: METOPROLOL TARTRATE 25 MG TABLET GT SCH ×2 (09:07→20:53)
[2020-02-02] MEDS: PHENOBARBITAL 30 MG/7.5 ML LIQUID UDC GT SCH ×2 (09:07→20:54)
[2020-02-02] MEDS: HYDROGEN PEROXIDE 3% 118 ML BOTTLE TOP SCH ×2 (09:08→21:27)
--- NOTE | 2020-02-02 14:21 | NUR ---
Pharmacy Update from Today's 02/02/20 IDT Meeting VS: Temp 97.5 BP 124/73 HR 56 LABS: (from 01/26/20) Wbc 2.9 H/H 8.7/25.5 Plt 165 Na 144 K 3.9 Cl 107 CO2 31 BUN/Scr 28/0.6 BS 98 Ca 9.1 MEDICATION USE REVIEWED: > Pt not on any anti-psych medications > Pt continues on Keppra 2000mg q12hr since 12/02/18; CrCl >100 ml/min, renal function ok for current dose. No reported seizures since last IDT > Pt on Phenobarbital 129.6mg q12hr since 07/23/19. Last level 09/08/19 was 33 (15-39), within therapeutic range > Pt also on Valium 5mg q12hr since 08/05 for muscle twitching/residual seizure activity per neurology. PRN also on board. x0 used since last IDT > Pt on Magnesium Oxide 400mg daily since 08/03. Last Mg 2.0 > Pt on Lopressor 12.5mg q12hr since 10/25/19, last BP wnl. > Pt on Omeprazole 40mg daily since 08/02/19, ok dose per renal function PRN MED USAGE: (December) Tylenol PRN pain/temp used x0 Zofran PRN used x0 Artificial Tears PRN used x0 NEW ORDERS NOTED: > Covid test 01/05 negative Patient was reviewed and discussed in depth per IDT team with no medication issues at this time. Will consider recommending for routine phenobarbital level repeat next month as last level in late August. Patient remains stable otherwise on current regimen, will continue to follow.
--- NOTE | 2020-02-02 15:18 | NUR ---
INTERDISCIPLINARY PLAN OF CARE CONFERENCE was held today. Patient's father does not participate in the meetings. Dr. Lora and the Interdisciplinary Team reviewed the current plan of care in detail. RN reported on patient's medical condition and findings of recent labs. No major changes in condition were reported. See RN IDT conference notes. See also all other disciplines IDT notes and physician's progress notes for additional details.
[2020-02-02 20:18] VITALS: BP 119/63
[2020-02-02] MEDS: MAGNESIUM OXIDE 400 MG TABLET GT SCH (20:53)
[2020-02-02] MEDS: MULTIVIT, IRON, MIN NO. 8, FA TABLET GT SCH (20:54)
[2020-02-03] MEDS: VITAL AF 1.2 1,000 ML LIQUID GT PRN (01:29)
[2020-02-03] MEDS: OMEPRAZOLE 40MG GT SCH (06:03)
[2020-02-03] MEDS: HYDROGEN PEROXIDE 3% 118 ML BOTTLE TOP SCH ×2 (07:31→21:11)
[2020-02-03 07:52] VITALS: BP 130/76
[2020-02-03] MEDS: ASPIRIN 81 MG TAB.CHEW GT SCH (09:11)
[2020-02-03] MEDS: levETIRAcetam 500 MG/5 ML LIQUID UDC GT SCH ×2 (09:11→20:40)
[2020-02-03] MEDS: AMIODARONE HCL 200 MG TABLET GT SCH (09:11)
[2020-02-03] MEDS: ASCORBIC ACID 500 MG TABLET PO SCH ×2 (09:12→20:48)
[2020-02-03] MEDS: DIAZEPAM 5 MG TABLET GT SCH ×2 (09:12→20:48)
[2020-02-03] MEDS: METOPROLOL TARTRATE 25 MG TABLET GT SCH ×2 (09:12→20:45)
[2020-02-03] MEDS: PHENOBARBITAL 30 MG/7.5 ML LIQUID UDC GT SCH ×2 (09:12→20:45)
[2020-02-03] MEDS: PROTEIN SUPPLEMENT (PROSTAT) 30 ML LIQUID GT SCH ×2 (09:12→20:47)
[2020-02-03] MEDS: COD LIVER OIL/ZINC OXIDE OINT 113 GM TUBE TP SCH ×2 (09:12→20:48)
--- NOTE | 2020-02-03 19:00 | NUR ---
Seen and examined by Dr Lora with new orders noted.
[2020-02-03 20:16] VITALS: BP 166/95
[2020-02-03] MEDS: MAGNESIUM OXIDE 400 MG TABLET GT SCH (20:45)
[2020-02-03] MEDS: MULTIVIT, IRON, MIN NO. 8, FA TABLET GT SCH (20:47)
[2020-02-04] MEDS: VITAL AF 1.2 1,000 ML LIQUID GT PRN (01:03)
[2020-02-04] MEDS: OMEPRAZOLE 40MG GT SCH (06:00)
[2020-02-04 07:38] VITALS: BP 117/75
[2020-02-04] MEDS: ASPIRIN 81 MG TAB.CHEW GT SCH (08:07)
[2020-02-04] MEDS: AMIODARONE HCL 200 MG TABLET GT SCH (08:08)
[2020-02-04] MEDS: levETIRAcetam 500 MG/5 ML LIQUID UDC GT SCH ×2 (08:08→20:51)
[2020-02-04] MEDS: PROTEIN SUPPLEMENT (PROSTAT) 30 ML LIQUID GT SCH ×2 (08:10→20:53)
[2020-02-04] MEDS: ASCORBIC ACID 500 MG TABLET PO SCH ×2 (08:10→20:54)
[2020-02-04] MEDS: DIAZEPAM 5 MG TABLET GT SCH ×2 (08:10→20:53)
[2020-02-04] MEDS: PHENOBARBITAL 30 MG/7.5 ML LIQUID UDC GT SCH ×2 (08:10→20:53)
[2020-02-04] MEDS: METOPROLOL TARTRATE 25 MG TABLET GT SCH ×2 (08:10→20:53)
[2020-02-04] MEDS: COD LIVER OIL/ZINC OXIDE OINT 113 GM TUBE TP SCH ×2 (08:10→20:54)
[2020-02-04] MEDS: HYDROGEN PEROXIDE 3% 118 ML BOTTLE TOP SCH ×2 (10:40→21:00)
[2020-02-04 20:08] VITALS: BP 96/64
[2020-02-04] MEDS: MULTIVIT, IRON, MIN NO. 8, FA TABLET GT SCH (20:53)
[2020-02-04] MEDS: MAGNESIUM OXIDE 400 MG TABLET GT SCH (20:53)
[2020-02-05] MEDS: VITAL AF 1.2 1,000 ML LIQUID GT PRN ×2 (00:55→21:43)
[2020-02-05] MEDS: OMEPRAZOLE 40MG GT SCH (06:04)
[2020-02-05 07:38] VITALS: BP 99/60
[2020-02-05] MEDS: HYDROGEN PEROXIDE 3% 118 ML BOTTLE TOP SCH ×2 (08:55→19:01)
[2020-02-05] MEDS: METOPROLOL TARTRATE 25 MG TABLET GT SCH ×2 (09:00→20:25)
[2020-02-05] MEDS: ASPIRIN 81 MG TAB.CHEW GT SCH (09:16)
[2020-02-05] MEDS: ASCORBIC ACID 500 MG TABLET PO SCH ×2 (09:17→20:25)
[2020-02-05] MEDS: PHENOBARBITAL 30 MG/7.5 ML LIQUID UDC GT SCH ×2 (09:17→20:25)
[2020-02-05] MEDS: DIAZEPAM 5 MG TABLET GT SCH ×2 (09:17→20:25)
[2020-02-05] MEDS: AMIODARONE HCL 200 MG TABLET GT SCH (09:17)
[2020-02-05] MEDS: COD LIVER OIL/ZINC OXIDE OINT 113 GM TUBE TP SCH ×2 (09:17→20:25)
[2020-02-05] MEDS: levETIRAcetam 500 MG/5 ML LIQUID UDC GT SCH ×2 (09:17→20:24)
[2020-02-05] MEDS: PROTEIN SUPPLEMENT (PROSTAT) 30 ML LIQUID GT SCH ×2 (09:17→20:25)
[2020-02-05 20:23] VITALS: BP 151/85
[2020-02-05] MEDS: MULTIVIT, IRON, MIN NO. 8, FA TABLET GT SCH (20:25)
[2020-02-05] MEDS: MAGNESIUM OXIDE 400 MG TABLET GT SCH (20:25)
[2020-02-06] MEDS: OMEPRAZOLE 40MG GT SCH (05:23)
[2020-02-06 07:32] VITALS: BP 132/74
[2020-02-06] MEDS: HYDROGEN PEROXIDE 3% 118 ML BOTTLE TOP SCH ×2 (07:58→21:57)
[2020-02-06] MEDS: levETIRAcetam 500 MG/5 ML LIQUID UDC GT SCH ×2 (08:28→20:27)
[2020-02-06] MEDS: AMIODARONE HCL 200 MG TABLET GT SCH (08:28)
[2020-02-06] MEDS: ASPIRIN 81 MG TAB.CHEW GT SCH (08:28)
[2020-02-06] MEDS: ASCORBIC ACID 500 MG TABLET PO SCH ×2 (08:31→20:27)
[2020-02-06] MEDS: DIAZEPAM 5 MG TABLET GT SCH ×2 (08:31→20:27)
[2020-02-06] MEDS: PROTEIN SUPPLEMENT (PROSTAT) 30 ML LIQUID GT SCH ×2 (08:31→20:27)
[2020-02-06] MEDS: METOPROLOL TARTRATE 25 MG TABLET GT SCH ×2 (08:31→20:27)
[2020-02-06] MEDS: PHENOBARBITAL 30 MG/7.5 ML LIQUID UDC GT SCH ×2 (08:31→20:27)
[2020-02-06] MEDS: COD LIVER OIL/ZINC OXIDE OINT 113 GM TUBE TP SCH ×2 (08:32→20:27)
[2020-02-06] MEDS: MULTIVIT, IRON, MIN NO. 8, FA TABLET GT SCH (20:27)
[2020-02-06] MEDS: MAGNESIUM OXIDE 400 MG TABLET GT SCH (20:27)
[2020-02-06 20:28] VITALS: BP 107/71
[2020-02-06] MEDS: VITAL AF 1.2 1,000 ML LIQUID GT PRN (22:45)
[2020-02-07] MEDS: OMEPRAZOLE 40MG GT SCH (05:22)
[2020-02-07 08:09] VITALS: BP 101/62
[2020-02-07] MEDS: HYDROGEN PEROXIDE 3% 118 ML BOTTLE TOP SCH ×2 (08:20→21:20)
[2020-02-07] MEDS: ASPIRIN 81 MG TAB.CHEW GT SCH (09:05)
[2020-02-07] MEDS: levETIRAcetam 500 MG/5 ML LIQUID UDC GT SCH ×2 (09:07→20:32)
[2020-02-07] MEDS: PHENOBARBITAL 30 MG/7.5 ML LIQUID UDC GT SCH ×2 (09:08→20:34)
[2020-02-07] MEDS: DIAZEPAM 5 MG TABLET GT SCH ×2 (09:08→20:34)
[2020-02-07] MEDS: COD LIVER OIL/ZINC OXIDE OINT 113 GM TUBE TP SCH ×2 (09:08→20:34)
[2020-02-07] MEDS: PROTEIN SUPPLEMENT (PROSTAT) 30 ML LIQUID GT SCH ×2 (09:08→20:34)
[2020-02-07] MEDS: ASCORBIC ACID 500 MG TABLET PO SCH ×2 (09:08→20:34)
[2020-02-07] MEDS: AMIODARONE HCL 200 MG TABLET GT SCH (09:16)
[2020-02-07] MEDS: METOPROLOL TARTRATE 25 MG TABLET GT SCH ×2 (09:16→20:33)
[2020-02-07] MEDS: VITAL AF 1.2 1,000 ML LIQUID GT PRN (19:16)
[2020-02-07 20:08] VITALS: BP 121/77
[2020-02-07] MEDS: MAGNESIUM OXIDE 400 MG TABLET GT SCH (20:34)
[2020-02-07] MEDS: MULTIVIT, IRON, MIN NO. 8, FA TABLET GT SCH (20:34)
[2020-02-08] MEDS: OMEPRAZOLE 40MG GT SCH (05:28)
[2020-02-08 07:48] VITALS: BP 148/87
[2020-02-08] MEDS: ASPIRIN 81 MG TAB.CHEW GT SCH (08:27)
[2020-02-08] MEDS: levETIRAcetam 500 MG/5 ML LIQUID UDC GT SCH ×2 (08:28→21:57)
[2020-02-08] MEDS: AMIODARONE HCL 200 MG TABLET GT SCH (08:28)
[2020-02-08] MEDS: PROTEIN SUPPLEMENT (PROSTAT) 30 ML LIQUID GT SCH ×2 (08:29→21:59)
[2020-02-08] MEDS: DIAZEPAM 5 MG TABLET GT SCH ×2 (08:29→21:59)
[2020-02-08] MEDS: METOPROLOL TARTRATE 25 MG TABLET GT SCH ×2 (08:29→21:58)
[2020-02-08] MEDS: PHENOBARBITAL 30 MG/7.5 ML LIQUID UDC GT SCH ×2 (08:29→21:59)
[2020-02-08] MEDS: ASCORBIC ACID 500 MG TABLET PO SCH ×2 (08:30→21:59)
[2020-02-08] MEDS: COD LIVER OIL/ZINC OXIDE OINT 113 GM TUBE TP SCH ×2 (08:31→21:59)
[2020-02-08] MEDS: HYDROGEN PEROXIDE 3% 118 ML BOTTLE TOP SCH ×2 (09:00→21:16)
[2020-02-08] MEDS: VITAL AF 1.2 1,000 ML LIQUID GT PRN (18:53)
[2020-02-08 20:40] VITALS: BP 145/80
[2020-02-08] MEDS: MAGNESIUM OXIDE 400 MG TABLET GT SCH (21:58)
[2020-02-08] MEDS: MULTIVIT, IRON, MIN NO. 8, FA TABLET GT SCH (21:59)
[2020-02-09] MEDS: OMEPRAZOLE 40MG GT SCH (06:35)
--- NOTE | 2020-02-09 07:06 | NUR ---
Noted with whitish downy like hair on patient's tongue, good mouth care done, patient is afebrile, no signs of any distress noted, kept clean and comfortable.
[2020-02-09 07:18] LABS: BASOPHILS % (AUTO) 0.6 % (0.0-2.0); EOSINOPHILS # (AUTO) 0.2 K/uL (0.0-0.7); EOSINOPHILS % (AUTO) 5.2 % (0.0-7.0); HEMATOCRIT 27.9 % (31.2-41.9); HEMOGLOBIN 9.8 g/dL (10.9-14.3); LYMPHOCYTES % (AUTO) 28.5 % (20.5-51.5); MEAN CORPUSCULAR HEMOGLOBIN 30.4 uug (24.7-32.8); MEAN CORPUSCULAR HGB CONC 35 g/dL (32.3-35.6); MEAN CORPUSCULAR VOLUME 86.5 fL (75.5-95.3); MONOCYTES # (AUTO) 0.3 K/uL (2.0-10.0); MONOCYTES % (AUTO) 7.2 % (0.0-11.0); NEUTROPHILS # (AUTO) 2.1 K/uL (1.8-8.9); NEUTROPHILS % (AUTO) 58.5 % (38.5-71.5); PLATELET COUNT (AUTO) 171 K/uL (179-408); RED BLOOD CELL COUNT(AUTO) 3.23 MIL/uL (3.63-4.92); WHITE BLOOD COUNT (AUTO) 3.6 K/uL (3.8-11.8)
[2020-02-09 07:29] VITALS: BP 140/85
[2020-02-09 07:38] LABS: CARBON DIOXIDE 30 mmol/L (21-32); CHLORIDE 106 mmol/L (98-107); CREATININE 0.4 mg/dL (0.6-1.3); GLUCOSE 98 mg/dL (74-106); POTASSIUM 3.9 mmol/L (3.5-5.1); UREA NITROGEN, BLOOD 24 mg/dL (7-18)
[2020-02-09] MEDS: ASPIRIN 81 MG TAB.CHEW GT SCH (08:15)
[2020-02-09] MEDS: AMIODARONE HCL 200 MG TABLET GT SCH (08:16)
[2020-02-09] MEDS: levETIRAcetam 500 MG/5 ML LIQUID UDC GT SCH ×2 (08:17→21:14)
[2020-02-09] MEDS: PHENOBARBITAL 30 MG/7.5 ML LIQUID UDC GT SCH ×2 (08:18→21:16)
[2020-02-09] MEDS: METOPROLOL TARTRATE 25 MG TABLET GT SCH ×2 (08:18→21:15)
[2020-02-09] MEDS: DIAZEPAM 5 MG TABLET GT SCH ×2 (08:19→21:17)
[2020-02-09] MEDS: ASCORBIC ACID 500 MG TABLET PO SCH ×2 (08:19→21:17)
[2020-02-09] MEDS: PROTEIN SUPPLEMENT (PROSTAT) 30 ML LIQUID GT SCH ×2 (08:19→21:16)
[2020-02-09] MEDS: COD LIVER OIL/ZINC OXIDE OINT 113 GM TUBE TP SCH ×2 (09:00→21:17)
[2020-02-09] MEDS: HYDROGEN PEROXIDE 3% 118 ML BOTTLE TOP SCH ×2 (09:38→21:59)
--- NOTE | 2020-02-09 12:00 | NUR ---
SEEN BY FLASH Mclaughlin AND WITH NNO.
[2020-02-09] MEDS: VITAL AF 1.2 1,000 ML LIQUID GT PRN (17:38)
[2020-02-09 20:14] VITALS: BP 119/76
[2020-02-09] MEDS: MAGNESIUM OXIDE 400 MG TABLET GT SCH (21:16)
[2020-02-09] MEDS: MULTIVIT, IRON, MIN NO. 8, FA TABLET GT SCH (21:17)
[2020-02-10] MEDS: OMEPRAZOLE 40MG GT SCH (05:45)
--- NOTE | 2020-02-10 06:28 | NUR ---
Noted with redness around right big toe with pus, cleanse and initiated in-house treatment, no bleeding noted, kept clean and comfortable.
[2020-02-10 07:53] VITALS: BP 128/74
[2020-02-10] MEDS: ASPIRIN 81 MG TAB.CHEW GT SCH (08:30)
[2020-02-10] MEDS: AMIODARONE HCL 200 MG TABLET GT SCH (08:32)
[2020-02-10] MEDS: levETIRAcetam 500 MG/5 ML LIQUID UDC GT SCH ×2 (08:33→21:12)
[2020-02-10] MEDS: ASCORBIC ACID 500 MG TABLET PO SCH ×2 (08:34→21:15)
[2020-02-10] MEDS: DIAZEPAM 5 MG TABLET GT SCH ×2 (08:34→21:15)
[2020-02-10] MEDS: PHENOBARBITAL 30 MG/7.5 ML LIQUID UDC GT SCH ×2 (08:34→21:14)
[2020-02-10] MEDS: METOPROLOL TARTRATE 25 MG TABLET GT SCH ×2 (08:34→21:13)
[2020-02-10] MEDS: PROTEIN SUPPLEMENT (PROSTAT) 30 ML LIQUID GT SCH ×2 (08:34→21:14)
[2020-02-10] MEDS: HYDROGEN PEROXIDE 3% 118 ML BOTTLE TOP SCH ×2 (08:47→21:26)
[2020-02-10] MEDS: COD LIVER OIL/ZINC OXIDE OINT 113 GM TUBE TP SCH ×2 (09:00→21:16)
[2020-02-10] MEDS: NEOMY/BACITRAC/POLYMI OINT 28.35 GM TUBE TOP SCH (09:00)
[2020-02-10] MEDS: VITAL AF 1.2 1,000 ML LIQUID GT PRN (14:09)
[2020-02-10 20:37] VITALS: BP 112/66
[2020-02-10] MEDS: MAGNESIUM OXIDE 400 MG TABLET GT SCH (21:14)
[2020-02-10] MEDS: MULTIVIT, IRON, MIN NO. 8, FA TABLET GT SCH (21:14)
[2020-02-11] MEDS: OMEPRAZOLE 40MG GT SCH (05:05)
[2020-02-11 07:49] VITALS: BP 120/75
[2020-02-11] MEDS: AMIODARONE HCL 200 MG TABLET GT SCH (08:19)
[2020-02-11] MEDS: ASPIRIN 81 MG TAB.CHEW GT SCH (08:19)
[2020-02-11] MEDS: PHENOBARBITAL 30 MG/7.5 ML LIQUID UDC GT SCH ×2 (08:20→21:06)
[2020-02-11] MEDS: DIAZEPAM 5 MG TABLET GT SCH ×2 (08:20→21:07)
[2020-02-11] MEDS: levETIRAcetam 500 MG/5 ML LIQUID UDC GT SCH ×2 (08:20→21:05)
[2020-02-11] MEDS: ASCORBIC ACID 500 MG TABLET PO SCH ×2 (08:20→21:08)
[2020-02-11] MEDS: METOPROLOL TARTRATE 25 MG TABLET GT SCH ×2 (08:20→21:06)
[2020-02-11] MEDS: PROTEIN SUPPLEMENT (PROSTAT) 30 ML LIQUID GT SCH ×2 (08:20→21:07)
[2020-02-11] MEDS: HYDROGEN PEROXIDE 3% 118 ML BOTTLE TOP SCH ×2 (08:21→19:10)
[2020-02-11] MEDS: COD LIVER OIL/ZINC OXIDE OINT 113 GM TUBE TP SCH ×2 (09:00→21:08)
[2020-02-11] MEDS: VITAL AF 1.2 1,000 ML LIQUID GT PRN (11:44)
[2020-02-11 19:47] VITALS: BP 140/82
[2020-02-11] MEDS: MAGNESIUM OXIDE 400 MG TABLET GT SCH (21:06)
[2020-02-11] MEDS: MULTIVIT, IRON, MIN NO. 8, FA TABLET GT SCH (21:07)
[2020-02-12] MEDS: OMEPRAZOLE 40MG GT SCH (05:57)
[2020-02-12 07:47] VITALS: BP 128/80
[2020-02-12] MEDS: ASPIRIN 81 MG TAB.CHEW GT SCH (08:00)
[2020-02-12] MEDS: AMIODARONE HCL 200 MG TABLET GT SCH (08:01)
[2020-02-12] MEDS: METOPROLOL TARTRATE 25 MG TABLET GT SCH ×2 (08:01→21:55)
[2020-02-12] MEDS: ASCORBIC ACID 500 MG TABLET PO SCH ×2 (08:01→21:55)
[2020-02-12] MEDS: levETIRAcetam 500 MG/5 ML LIQUID UDC GT SCH ×2 (08:01→21:54)
[2020-02-12] MEDS: DIAZEPAM 5 MG TABLET GT SCH ×2 (08:01→21:55)
[2020-02-12] MEDS: PHENOBARBITAL 30 MG/7.5 ML LIQUID UDC GT SCH ×2 (08:01→21:55)
[2020-02-12] MEDS: COD LIVER OIL/ZINC OXIDE OINT 113 GM TUBE TP SCH ×2 (08:01→21:55)
[2020-02-12] MEDS: PROTEIN SUPPLEMENT (PROSTAT) 30 ML LIQUID GT SCH ×2 (08:01→21:55)
[2020-02-12] MEDS: NEOMY/BACITRAC/POLYMI OINT 28.35 GM TUBE TOP SCH (08:55)
[2020-02-12] MEDS: HYDROGEN PEROXIDE 3% 118 ML BOTTLE TOP SCH ×2 (10:30→22:00)
[2020-02-12] MEDS: VITAL AF 1.2 1,000 ML LIQUID GT PRN (17:33)
[2020-02-12] MEDS: MAGNESIUM OXIDE 400 MG TABLET GT SCH (21:55)
[2020-02-12] MEDS: MULTIVIT, IRON, MIN NO. 8, FA TABLET GT SCH (21:55)
[2020-02-12 22:00] VITALS: BP 138/83
[2020-02-13] MEDS: OMEPRAZOLE 40MG GT SCH (05:44)
[2020-02-13] MEDS: AMIODARONE HCL 200 MG TABLET GT SCH (09:04)
[2020-02-13] MEDS: ASPIRIN 81 MG TAB.CHEW GT SCH (09:04)
[2020-02-13] MEDS: levETIRAcetam 500 MG/5 ML LIQUID UDC GT SCH ×2 (09:05→20:44)
[2020-02-13] MEDS: PROTEIN SUPPLEMENT (PROSTAT) 30 ML LIQUID GT SCH ×2 (09:05→20:45)
[2020-02-13] MEDS: METOPROLOL TARTRATE 25 MG TABLET GT SCH ×2 (09:05→20:44)
[2020-02-13] MEDS: PHENOBARBITAL 30 MG/7.5 ML LIQUID UDC GT SCH ×2 (09:05→20:44)
[2020-02-13] MEDS: DIAZEPAM 5 MG TABLET GT SCH ×2 (09:05→20:45)
[2020-02-13] MEDS: ASCORBIC ACID 500 MG TABLET PO SCH ×2 (09:05→20:45)
[2020-02-13] MEDS: NEOMY/BACITRAC/POLYMI OINT 28.35 GM TUBE TOP SCH (09:06)
[2020-02-13] MEDS: COD LIVER OIL/ZINC OXIDE OINT 113 GM TUBE TP SCH ×2 (09:06→20:45)
[2020-02-13] MEDS: HYDROGEN PEROXIDE 3% 118 ML BOTTLE TOP SCH ×2 (10:20→20:52)
[2020-02-13] MEDS: VITAL AF 1.2 1,000 ML LIQUID GT PRN (12:33)
[2020-02-13] MEDS: MAGNESIUM OXIDE 400 MG TABLET GT SCH (20:44)
[2020-02-13] MEDS: MULTIVIT, IRON, MIN NO. 8, FA TABLET GT SCH (20:45)
[2020-02-13 23:36] VITALS: BP 111/64
[2020-02-14] MEDS: OMEPRAZOLE 40MG GT SCH (05:15)
[2020-02-14 07:57] VITALS: BP 91/53
[2020-02-14] MEDS: AMIODARONE HCL 200 MG TABLET GT SCH (08:30)
[2020-02-14] MEDS: levETIRAcetam 500 MG/5 ML LIQUID UDC GT SCH ×2 (08:30→21:42)
[2020-02-14] MEDS: ASPIRIN 81 MG TAB.CHEW GT SCH (08:30)
[2020-02-14] MEDS: METOPROLOL TARTRATE 25 MG TABLET GT SCH ×2 (08:31→21:00)
[2020-02-14] MEDS: PROTEIN SUPPLEMENT (PROSTAT) 30 ML LIQUID GT SCH ×2 (08:31→21:42)
[2020-02-14] MEDS: PHENOBARBITAL 30 MG/7.5 ML LIQUID UDC GT SCH ×2 (08:31→21:42)
[2020-02-14] MEDS: DIAZEPAM 5 MG TABLET GT SCH ×2 (08:31→21:43)
[2020-02-14] MEDS: ASCORBIC ACID 500 MG TABLET PO SCH ×2 (08:31→21:43)
[2020-02-14] MEDS: NEOMY/BACITRAC/POLYMI OINT 28.35 GM TUBE TOP SCH (08:32)
[2020-02-14] MEDS: COD LIVER OIL/ZINC OXIDE OINT 113 GM TUBE TP SCH ×2 (08:32→21:43)
[2020-02-14] MEDS: HYDROGEN PEROXIDE 3% 118 ML BOTTLE TOP SCH ×2 (09:00→21:19)
[2020-02-14] MEDS: VITAL AF 1.2 1,000 ML LIQUID GT PRN (11:55)
[2020-02-14 20:36] VITALS: BP 98/54
[2020-02-14] MEDS: MAGNESIUM OXIDE 400 MG TABLET GT SCH (21:42)
[2020-02-14] MEDS: MULTIVIT, IRON, MIN NO. 8, FA TABLET GT SCH (21:43)
[2020-02-15] MEDS: OMEPRAZOLE 40MG GT SCH (05:03)
[2020-02-15] MEDS: PHENOBARBITAL 30 MG/7.5 ML LIQUID UDC GT SCH ×2 (08:05→20:16)
[2020-02-15] MEDS: ASCORBIC ACID 500 MG TABLET PO SCH ×2 (08:05→20:16)
[2020-02-15] MEDS: DIAZEPAM 5 MG TABLET GT SCH ×2 (08:05→20:16)
[2020-02-15] MEDS: ASPIRIN 81 MG TAB.CHEW GT SCH (08:06)
[2020-02-15] MEDS: NEOMY/BACITRAC/POLYMI OINT 28.35 GM TUBE TOP SCH (08:06)
[2020-02-15] MEDS: PROTEIN SUPPLEMENT (PROSTAT) 30 ML LIQUID GT SCH ×2 (08:06→20:16)
[2020-02-15] MEDS: METOPROLOL TARTRATE 25 MG TABLET GT SCH ×2 (08:07→20:16)
[2020-02-15] MEDS: levETIRAcetam 500 MG/5 ML LIQUID UDC GT SCH ×2 (08:07→20:16)
[2020-02-15] MEDS: AMIODARONE HCL 200 MG TABLET GT SCH (08:07)
[2020-02-15] MEDS: COD LIVER OIL/ZINC OXIDE OINT 113 GM TUBE TP SCH ×2 (08:08→20:16)
[2020-02-15 08:20] VITALS: BP 90/54
[2020-02-15] MEDS: HYDROGEN PEROXIDE 3% 118 ML BOTTLE TOP SCH ×2 (09:00→21:44)
[2020-02-15] MEDS: VITAL AF 1.2 1,000 ML LIQUID GT PRN (12:08)
[2020-02-15] MEDS: MAGNESIUM OXIDE 400 MG TABLET GT SCH (20:16)
[2020-02-15] MEDS: MULTIVIT, IRON, MIN NO. 8, FA TABLET GT SCH (20:16)
[2020-02-15 20:20] VITALS: BP 136/83
[2020-02-15] MEDS: ACETAMINOPHEN 650 MG/20 ML UDC- SA PATIENTS-FEVER ONLY GT PRN (20:20)
[2020-02-16] MEDS: OMEPRAZOLE 40MG GT SCH (05:41)
[2020-02-16 06:34] LABS: BASOPHILS % (AUTO) 0.3 % (0.0-2.0); EOSINOPHILS # (AUTO) 0.1 K/uL (0.0-0.7); EOSINOPHILS % (AUTO) 1.4 % (0.0-7.0); HEMATOCRIT 26.7 % (31.2-41.9); HEMOGLOBIN 9.3 g/dL (10.9-14.3); LYMPHOCYTES # (AUTO) 1.1 K/uL (20.0-40.0); LYMPHOCYTES % (AUTO) 18.3 % (20.5-51.5); MEAN CORPUSCULAR HEMOGLOBIN 30.1 uug (24.7-32.8); MEAN CORPUSCULAR HGB CONC 35 g/dL (32.3-35.6); MEAN CORPUSCULAR VOLUME 86.6 fL (75.5-95.3); MONOCYTES # (AUTO) 0.9 K/uL (2.0-10.0); MONOCYTES % (AUTO) 14.2 % (0.0-11.0); NEUTROPHILS # (AUTO) 4.1 K/uL (1.8-8.9); NEUTROPHILS % (AUTO) 65.8 % (38.5-71.5); PLATELET COUNT (AUTO) 147 K/uL (179-408); RED BLOOD CELL COUNT(AUTO) 3.08 MIL/uL (3.63-4.92); WHITE BLOOD COUNT (AUTO) 6.2 K/uL (3.8-11.8)
[2020-02-16 06:35] LABS: BILIRUBIN,TOTAL 0.3 mg/dL (0.2-1.0); CREATININE 0.6 mg/dL (0.6-1.3); POTASSIUM 3.7 mmol/L (3.5-5.1); TOTAL PROTEIN, SERUM 7.5 g/dL (6.4-8.2)
[2020-02-16 07:33] VITALS: BP 104/67
[2020-02-16] MEDS: AMIODARONE HCL 200 MG TABLET GT SCH (08:59)
[2020-02-16] MEDS: levETIRAcetam 500 MG/5 ML LIQUID UDC GT SCH ×2 (08:59→21:18)
[2020-02-16] MEDS: ASPIRIN 81 MG TAB.CHEW GT SCH (08:59)
[2020-02-16] MEDS: PHENOBARBITAL 30 MG/7.5 ML LIQUID UDC GT SCH ×2 (09:00→21:19)
[2020-02-16] MEDS: COD LIVER OIL/ZINC OXIDE OINT 113 GM TUBE TP SCH ×2 (09:00→21:20)
[2020-02-16] MEDS: METOPROLOL TARTRATE 25 MG TABLET GT SCH ×2 (09:00→21:19)
[2020-02-16] MEDS: NEOMY/BACITRAC/POLYMI OINT 28.35 GM TUBE TOP SCH (09:00)
[2020-02-16] MEDS: ASCORBIC ACID 500 MG TABLET PO SCH ×2 (09:00→21:19)
[2020-02-16] MEDS: DIAZEPAM 5 MG TABLET GT SCH ×2 (09:00→21:19)
[2020-02-16] MEDS: PROTEIN SUPPLEMENT (PROSTAT) 30 ML LIQUID GT SCH ×2 (09:00→21:19)
[2020-02-16] MEDS: HYDROGEN PEROXIDE 3% 118 ML BOTTLE TOP SCH ×2 (09:39→21:50)
[2020-02-16 10:16] LABS: EOSINOPHILS % (MANUAL) 2 % (0-8); LYMPHOCYTES % (MANUAL) 19 % (20-40); MONOCYTES % (MANUAL) 16 % (2-10); NEUTROPHILS % (MANUAL) 63 % (42-75)
[2020-02-16] MEDS: VITAL AF 1.2 1,000 ML LIQUID GT PRN (10:22)
--- NOTE | 2020-02-16 12:32 | NUR ---
Noted white patches on patient's tongue, Layne ELMORE was notified and new orders received and carried out.
[2020-02-16] MEDS: NYSTATIN SUSPENSION 5 ML LIQUID UDC XX SCH (18:21)
[2020-02-16 20:30] VITALS: BP 102/64
[2020-02-16] MEDS: MAGNESIUM OXIDE 400 MG TABLET GT SCH (21:19)
[2020-02-16] MEDS: MULTIVIT, IRON, MIN NO. 8, FA TABLET GT SCH (21:19)
[2020-02-17] MEDS: OMEPRAZOLE 40MG GT SCH (05:55)
[2020-02-17] MEDS: NYSTATIN SUSPENSION 5 ML LIQUID UDC XX SCH ×4 (05:55→18:02)
[2020-02-17 06:49] LABS: BILIRUBIN,TOTAL 0.2 mg/dL (0.2-1.0); CREATININE 0.6 mg/dL (0.6-1.3); POTASSIUM 4.1 mmol/L (3.5-5.1); TOTAL PROTEIN, SERUM 7.6 g/dL (6.4-8.2)
[2020-02-17 06:54] LABS: BASOPHILS % (AUTO) 0.4 % (0.0-2.0); EOSINOPHILS # (AUTO) 0.1 K/uL (0.0-0.7); EOSINOPHILS % (AUTO) 2.1 % (0.0-7.0); HEMATOCRIT 23.9 % (31.2-41.9); HEMOGLOBIN 8.3 g/dL (10.9-14.3); LYMPHOCYTES % (AUTO) 22.6 % (20.5-51.5); MEAN CORPUSCULAR HEMOGLOBIN 29.8 uug (24.7-32.8); MEAN CORPUSCULAR HGB CONC 35 g/dL (32.3-35.6); MONOCYTES # (AUTO) 0.4 K/uL (2.0-10.0); MONOCYTES % (AUTO) 9.5 % (0.0-11.0); NEUTROPHILS % (AUTO) 65.4 % (38.5-71.5); PLATELET COUNT (AUTO) 138 K/uL (179-408); RED BLOOD CELL COUNT(AUTO) 2.78 MIL/uL (3.63-4.92); WHITE BLOOD COUNT (AUTO) 4.5 K/uL (3.8-11.8)
[2020-02-17 07:32] VITALS: BP 96/43
[2020-02-17] MEDS: HYDROGEN PEROXIDE 3% 118 ML BOTTLE TOP SCH ×2 (09:00→21:53)
[2020-02-17] MEDS: METOPROLOL TARTRATE 25 MG TABLET GT SCH ×2 (09:45→20:10)
[2020-02-17] MEDS: PROTEIN SUPPLEMENT (PROSTAT) 30 ML LIQUID GT SCH ×2 (09:45→20:11)
[2020-02-17] MEDS: levETIRAcetam 500 MG/5 ML LIQUID UDC GT SCH ×2 (09:45→20:10)
[2020-02-17] MEDS: ASPIRIN 81 MG TAB.CHEW GT SCH (09:45)
[2020-02-17] MEDS: NEOMY/BACITRAC/POLYMI OINT 28.35 GM TUBE TOP SCH (09:45)
[2020-02-17] MEDS: PHENOBARBITAL 30 MG/7.5 ML LIQUID UDC GT SCH ×2 (09:45→20:10)
[2020-02-17] MEDS: AMIODARONE HCL 200 MG TABLET GT SCH (09:45)
[2020-02-17] MEDS: COD LIVER OIL/ZINC OXIDE OINT 113 GM TUBE TP SCH ×2 (09:45→20:11)
[2020-02-17] MEDS: DIAZEPAM 5 MG TABLET GT SCH ×2 (09:45→20:11)
[2020-02-17] MEDS: ASCORBIC ACID 500 MG TABLET PO SCH ×2 (09:45→20:11)
[2020-02-17] MEDS: VITAL AF 1.2 1,000 ML LIQUID GT PRN (10:00)
--- NOTE | 2020-02-17 18:00 | NUR ---
New orders for podiatry consult for ingrown toenails,Seen and examined by Dr Landrum,ingrown toenail R great toe removed,with new tx orders carried out.
[2020-02-17 20:00] VITALS: BP 102/65
[2020-02-17] MEDS: MULTIVIT, IRON, MIN NO. 8, FA TABLET GT SCH (20:11)
[2020-02-17] MEDS: MAGNESIUM OXIDE 400 MG TABLET GT SCH (20:11)
[2020-02-17] MEDS ORDERED: NEOMY/BACITRAC/POLYMI OINT 28.35 GM TUBE TP SCH (21:00)
[2020-02-18] MEDS: NYSTATIN SUSPENSION 5 ML LIQUID UDC XX SCH ×5 (00:52→23:04)
[2020-02-18] MEDS: OMEPRAZOLE 40MG GT SCH (06:19)
[2020-02-18 07:45] VITALS: BP 106/70
[2020-02-18] MEDS: HYDROGEN PEROXIDE 3% 118 ML BOTTLE TOP SCH ×2 (09:00→21:26)
[2020-02-18] MEDS: ASPIRIN 81 MG TAB.CHEW GT SCH (09:01)
[2020-02-18] MEDS: METOPROLOL TARTRATE 25 MG TABLET GT SCH ×2 (09:02→21:03)
[2020-02-18] MEDS: levETIRAcetam 500 MG/5 ML LIQUID UDC GT SCH ×2 (09:02→21:02)
[2020-02-18] MEDS: AMIODARONE HCL 200 MG TABLET GT SCH (09:02)
[2020-02-18] MEDS: DIAZEPAM 5 MG TABLET GT SCH ×2 (09:03→21:04)
[2020-02-18] MEDS: PHENOBARBITAL 30 MG/7.5 ML LIQUID UDC GT SCH ×2 (09:03→21:03)
[2020-02-18] MEDS: PROTEIN SUPPLEMENT (PROSTAT) 30 ML LIQUID GT SCH ×2 (09:03→21:04)
[2020-02-18] MEDS: NEOMY/BACITRAC/POLYMI OINT 28.35 GM TUBE TOP SCH (09:06)
[2020-02-18] MEDS: ASCORBIC ACID 500 MG TABLET PO SCH ×2 (09:06→21:04)
[2020-02-18] MEDS: COD LIVER OIL/ZINC OXIDE OINT 113 GM TUBE TP SCH ×2 (09:06→21:04)
[2020-02-18] MEDS: VITAL AF 1.2 1,000 ML LIQUID GT PRN (09:14)
[2020-02-18 20:00] VITALS: BP 137/84
[2020-02-18] MEDS: MAGNESIUM OXIDE 400 MG TABLET GT SCH (21:03)
[2020-02-18] MEDS: MULTIVIT, IRON, MIN NO. 8, FA TABLET GT SCH (21:04)
[2020-02-19] MEDS: VITAL AF 1.2 1,000 ML LIQUID GT PRN (03:35)
[2020-02-19] MEDS: NYSTATIN SUSPENSION 5 ML LIQUID UDC XX SCH ×3 (05:45→17:13)
[2020-02-19] MEDS: OMEPRAZOLE 40MG GT SCH (05:45)
[2020-02-19 07:48] VITALS: BP 120/73
[2020-02-19] MEDS: AMIODARONE HCL 200 MG TABLET GT SCH (08:00)
[2020-02-19] MEDS: ASPIRIN 81 MG TAB.CHEW GT SCH (08:00)
[2020-02-19] MEDS: METOPROLOL TARTRATE 25 MG TABLET GT SCH ×2 (08:00→21:11)
[2020-02-19] MEDS: PHENOBARBITAL 30 MG/7.5 ML LIQUID UDC GT SCH ×2 (08:00→21:11)
[2020-02-19] MEDS: PROTEIN SUPPLEMENT (PROSTAT) 30 ML LIQUID GT SCH ×2 (08:00→21:11)
[2020-02-19] MEDS: COD LIVER OIL/ZINC OXIDE OINT 113 GM TUBE TP SCH ×2 (08:00→21:11)
[2020-02-19] MEDS: levETIRAcetam 500 MG/5 ML LIQUID UDC GT SCH ×2 (08:00→21:11)
[2020-02-19] MEDS: ASCORBIC ACID 500 MG TABLET PO SCH ×2 (08:00→21:11)
[2020-02-19] MEDS: NEOMY/BACITRAC/POLYMI OINT 28.35 GM TUBE TOP SCH (08:00)
[2020-02-19] MEDS: DIAZEPAM 5 MG TABLET GT SCH ×2 (08:00→21:11)
[2020-02-19] MEDS: HYDROGEN PEROXIDE 3% 118 ML BOTTLE TOP SCH ×2 (09:00→21:55)
[2020-02-19 20:00] VITALS: BP 132/86
[2020-02-19] MEDS: MULTIVIT, IRON, MIN NO. 8, FA TABLET GT SCH (21:11)
[2020-02-19] MEDS: MAGNESIUM OXIDE 400 MG TABLET GT SCH (21:11)
[2020-02-20] MEDS: VITAL AF 1.2 1,000 ML LIQUID GT PRN (03:41)
[2020-02-20] MEDS: OMEPRAZOLE 40MG GT SCH (05:39)
[2020-02-20] MEDS: NYSTATIN SUSPENSION 5 ML LIQUID UDC XX SCH ×4 (05:39→17:16)
[2020-02-20 07:38] VITALS: BP 114/71
[2020-02-20] MEDS: ASPIRIN 81 MG TAB.CHEW GT SCH (08:04)
[2020-02-20] MEDS: levETIRAcetam 500 MG/5 ML LIQUID UDC GT SCH ×2 (08:04→21:13)
[2020-02-20] MEDS: AMIODARONE HCL 200 MG TABLET GT SCH (08:04)
[2020-02-20] MEDS: NEOMY/BACITRAC/POLYMI OINT 28.35 GM TUBE TOP SCH (08:05)
[2020-02-20] MEDS: PROTEIN SUPPLEMENT (PROSTAT) 30 ML LIQUID GT SCH ×2 (08:05→21:14)
[2020-02-20] MEDS: ASCORBIC ACID 500 MG TABLET PO SCH ×2 (08:05→21:15)
[2020-02-20] MEDS: PHENOBARBITAL 30 MG/7.5 ML LIQUID UDC GT SCH ×2 (08:05→21:14)
[2020-02-20] MEDS: METOPROLOL TARTRATE 25 MG TABLET GT SCH ×2 (08:05→21:14)
[2020-02-20] MEDS: DIAZEPAM 5 MG TABLET GT SCH ×2 (08:05→21:14)
[2020-02-20] MEDS: COD LIVER OIL/ZINC OXIDE OINT 113 GM TUBE TP SCH ×2 (09:00→21:15)
[2020-02-20] MEDS: HYDROGEN PEROXIDE 3% 118 ML BOTTLE TOP SCH ×2 (09:28→21:14)
[2020-02-20 20:00] VITALS: BP 120/77
[2020-02-20] MEDS: MULTIVIT, IRON, MIN NO. 8, FA TABLET GT SCH (21:14)
[2020-02-20] MEDS: MAGNESIUM OXIDE 400 MG TABLET GT SCH (21:14)
[2020-02-21] MEDS: NYSTATIN SUSPENSION 5 ML LIQUID UDC XX SCH ×4 (00:55→17:31)
[2020-02-21] MEDS: VITAL AF 1.2 1,000 ML LIQUID GT PRN (01:47)
[2020-02-21] MEDS: OMEPRAZOLE 40MG GT SCH (05:16)
[2020-02-21 07:49] VITALS: BP 121/79
[2020-02-21] MEDS: levETIRAcetam 500 MG/5 ML LIQUID UDC GT SCH ×2 (08:57→21:08)
[2020-02-21] MEDS: AMIODARONE HCL 200 MG TABLET GT SCH (08:57)
[2020-02-21] MEDS: PROTEIN SUPPLEMENT (PROSTAT) 30 ML LIQUID GT SCH ×2 (08:59→21:09)
[2020-02-21] MEDS: PHENOBARBITAL 30 MG/7.5 ML LIQUID UDC GT SCH ×2 (08:59→21:09)
[2020-02-21] MEDS: METOPROLOL TARTRATE 25 MG TABLET GT SCH ×2 (08:59→21:09)
[2020-02-21] MEDS: NEOMY/BACITRAC/POLYMI OINT 28.35 GM TUBE TOP SCH (09:00)
[2020-02-21] MEDS: ASCORBIC ACID 500 MG TABLET PO SCH ×2 (09:00→21:09)
[2020-02-21] MEDS: COD LIVER OIL/ZINC OXIDE OINT 113 GM TUBE TP SCH ×2 (09:00→21:09)
[2020-02-21] MEDS: DIAZEPAM 5 MG TABLET GT SCH ×2 (09:00→21:09)
[2020-02-21] MEDS: ASPIRIN 81 MG TAB.CHEW GT SCH (09:05)
[2020-02-21] MEDS: HYDROGEN PEROXIDE 3% 118 ML BOTTLE TOP SCH ×2 (09:38→21:03)
[2020-02-21 20:07] VITALS: BP 118/64
[2020-02-21] MEDS: MULTIVIT, IRON, MIN NO. 8, FA TABLET GT SCH (21:09)
[2020-02-21] MEDS: MAGNESIUM OXIDE 400 MG TABLET GT SCH (21:09)
[2020-02-22] MEDS: NYSTATIN SUSPENSION 5 ML LIQUID UDC XX SCH ×4 (00:43→17:17)
[2020-02-22] MEDS: VITAL AF 1.2 1,000 ML LIQUID GT PRN (02:29)
[2020-02-22] MEDS: OMEPRAZOLE 40MG GT SCH (06:23)
[2020-02-22 07:34] VITALS: BP 107/66
[2020-02-22] MEDS: ASPIRIN 81 MG TAB.CHEW GT SCH (08:04)
[2020-02-22] MEDS: METOPROLOL TARTRATE 25 MG TABLET GT SCH ×2 (08:05→21:06)
[2020-02-22] MEDS: AMIODARONE HCL 200 MG TABLET GT SCH (08:05)
[2020-02-22] MEDS: levETIRAcetam 500 MG/5 ML LIQUID UDC GT SCH ×2 (08:05→21:06)
[2020-02-22] MEDS: NEOMY/BACITRAC/POLYMI OINT 28.35 GM TUBE TOP SCH (08:06)
[2020-02-22] MEDS: PHENOBARBITAL 30 MG/7.5 ML LIQUID UDC GT SCH ×2 (08:06→21:06)
[2020-02-22] MEDS: COD LIVER OIL/ZINC OXIDE OINT 113 GM TUBE TP SCH ×2 (08:06→21:07)
[2020-02-22] MEDS: PROTEIN SUPPLEMENT (PROSTAT) 30 ML LIQUID GT SCH ×2 (08:06→21:06)
[2020-02-22] MEDS: ASCORBIC ACID 500 MG TABLET PO SCH ×2 (08:06→21:07)
[2020-02-22] MEDS: DIAZEPAM 5 MG TABLET GT SCH ×2 (08:06→21:07)
[2020-02-22] MEDS: HYDROGEN PEROXIDE 3% 118 ML BOTTLE TOP SCH ×2 (08:10→21:11)
[2020-02-22 20:08] VITALS: BP 115/73
[2020-02-22] MEDS: MAGNESIUM OXIDE 400 MG TABLET GT SCH (21:06)
[2020-02-22] MEDS: MULTIVIT, IRON, MIN NO. 8, FA TABLET GT SCH (21:06)
[2020-02-23] MEDS: NYSTATIN SUSPENSION 5 ML LIQUID UDC XX SCH ×4 (00:53→17:48)
[2020-02-23] MEDS: VITAL AF 1.2 1,000 ML LIQUID GT PRN (03:44)
[2020-02-23] MEDS: OMEPRAZOLE 40MG GT SCH (06:15)
[2020-02-23 07:28] VITALS: BP 113/73
[2020-02-23 07:45] LABS: BILIRUBIN,TOTAL 0.2 mg/dL (0.2-1.0); CREATININE 0.6 mg/dL (0.6-1.3); POTASSIUM 3.8 mmol/L (3.5-5.1); TOTAL PROTEIN, SERUM 7.2 g/dL (6.4-8.2)
[2020-02-23 07:46] LABS: BASOPHILS % (AUTO) 0.6 % (0.0-2.0); EOSINOPHILS # (AUTO) 0.2 K/uL (0.0-0.7); EOSINOPHILS % (AUTO) 4.2 % (0.0-7.0); HEMATOCRIT 25.5 % (31.2-41.9); HEMOGLOBIN 8.8 g/dL (10.9-14.3); LYMPHOCYTES # (AUTO) 1.2 K/uL (20.0-40.0); LYMPHOCYTES % (AUTO) 26.3 % (20.5-51.5); MEAN CORPUSCULAR HEMOGLOBIN 29.6 uug (24.7-32.8); MEAN CORPUSCULAR HGB CONC 35 g/dL (32.3-35.6); MONOCYTES # (AUTO) 0.3 K/uL (2.0-10.0); MONOCYTES % (AUTO) 7.1 % (0.0-11.0); NEUTROPHILS # (AUTO) 2.9 K/uL (1.8-8.9); NEUTROPHILS % (AUTO) 61.8 % (38.5-71.5); PLATELET COUNT (AUTO) 210 K/uL (179-408); RED BLOOD CELL COUNT(AUTO) 2.97 MIL/uL (3.63-4.92); WHITE BLOOD COUNT (AUTO) 4.7 K/uL (3.8-11.8)
[2020-02-23] MEDS: ASPIRIN 81 MG TAB.CHEW GT SCH (08:05)
[2020-02-23] MEDS: AMIODARONE HCL 200 MG TABLET GT SCH (08:06)
[2020-02-23] MEDS: PHENOBARBITAL 30 MG/7.5 ML LIQUID UDC GT SCH ×2 (08:07→21:04)
[2020-02-23] MEDS: DIAZEPAM 5 MG TABLET GT SCH ×2 (08:07→21:04)
[2020-02-23] MEDS: PROTEIN SUPPLEMENT (PROSTAT) 30 ML LIQUID GT SCH ×2 (08:07→21:04)
[2020-02-23] MEDS: ASCORBIC ACID 500 MG TABLET PO SCH ×2 (08:07→21:04)
[2020-02-23] MEDS: COD LIVER OIL/ZINC OXIDE OINT 113 GM TUBE TP SCH ×2 (08:07→21:04)
[2020-02-23] MEDS: METOPROLOL TARTRATE 25 MG TABLET GT SCH ×2 (08:07→21:04)
[2020-02-23] MEDS: NEOMY/BACITRAC/POLYMI OINT 28.35 GM TUBE TOP SCH (08:07)
[2020-02-23] MEDS: levETIRAcetam 500 MG/5 ML LIQUID UDC GT SCH ×2 (08:07→21:03)
[2020-02-23] MEDS: HYDROGEN PEROXIDE 3% 118 ML BOTTLE TOP SCH ×2 (09:00→21:18)
[2020-02-23 19:57] VITALS: BP 124/84
[2020-02-23] MEDS: MAGNESIUM OXIDE 400 MG TABLET GT SCH (21:04)
[2020-02-23] MEDS: MULTIVIT, IRON, MIN NO. 8, FA TABLET GT SCH (21:04)
[2020-02-24] MEDS: NYSTATIN SUSPENSION 5 ML LIQUID UDC XX SCH ×4 (00:14→17:35)
[2020-02-24] MEDS: VITAL AF 1.2 1,000 ML LIQUID GT PRN (04:35)
[2020-02-24] MEDS: OMEPRAZOLE 40MG GT SCH (06:06)
[2020-02-24 07:28] VITALS: BP 107/60
[2020-02-24] MEDS: HYDROGEN PEROXIDE 3% 118 ML BOTTLE TOP SCH ×2 (08:19→21:00)
[2020-02-24] MEDS: PROTEIN SUPPLEMENT (PROSTAT) 30 ML LIQUID GT SCH ×2 (09:20→20:57)
[2020-02-24] MEDS: METOPROLOL TARTRATE 25 MG TABLET GT SCH ×2 (09:20→20:57)
[2020-02-24] MEDS: ASPIRIN 81 MG TAB.CHEW GT SCH (09:20)
[2020-02-24] MEDS: DIAZEPAM 5 MG TABLET GT SCH ×2 (09:20→20:57)
[2020-02-24] MEDS: levETIRAcetam 500 MG/5 ML LIQUID UDC GT SCH ×2 (09:20→20:56)
[2020-02-24] MEDS: PHENOBARBITAL 30 MG/7.5 ML LIQUID UDC GT SCH ×2 (09:20→20:57)
[2020-02-24] MEDS: AMIODARONE HCL 200 MG TABLET GT SCH (09:20)
[2020-02-24] MEDS: ASCORBIC ACID 500 MG TABLET PO SCH ×2 (09:21→20:57)
[2020-02-24] MEDS: COD LIVER OIL/ZINC OXIDE OINT 113 GM TUBE TP SCH ×2 (09:21→20:57)
[2020-02-24 20:13] VITALS: BP 118/71
[2020-02-24] MEDS: MAGNESIUM OXIDE 400 MG TABLET GT SCH (20:57)
[2020-02-24] MEDS: MULTIVIT, IRON, MIN NO. 8, FA TABLET GT SCH (20:57)
[2020-02-24] MEDS: NEOMY/BACITRAC/POLYMI OINT 28.35 GM TUBE TP SCH (20:57)
[2020-02-25] MEDS: NYSTATIN SUSPENSION 5 ML LIQUID UDC XX SCH ×4 (00:48→17:11)
[2020-02-25] MEDS: VITAL AF 1.2 1,000 ML LIQUID GT PRN (02:40)
[2020-02-25] MEDS: OMEPRAZOLE 40MG GT SCH (06:13)
[2020-02-25 07:46] VITALS: BP 123/81
[2020-02-25] MEDS: AMIODARONE HCL 200 MG TABLET GT SCH (08:39)
[2020-02-25] MEDS: levETIRAcetam 500 MG/5 ML LIQUID UDC GT SCH ×2 (08:39→21:11)
[2020-02-25] MEDS: METOPROLOL TARTRATE 25 MG TABLET GT SCH ×2 (08:40→21:15)
[2020-02-25] MEDS: PROTEIN SUPPLEMENT (PROSTAT) 30 ML LIQUID GT SCH ×2 (08:43→21:15)
[2020-02-25] MEDS: PHENOBARBITAL 30 MG/7.5 ML LIQUID UDC GT SCH ×2 (08:43→21:15)
[2020-02-25] MEDS: DIAZEPAM 5 MG TABLET GT SCH ×2 (08:43→21:15)
[2020-02-25] MEDS: ASCORBIC ACID 500 MG TABLET PO SCH ×2 (08:44→21:15)
[2020-02-25] MEDS: COD LIVER OIL/ZINC OXIDE OINT 113 GM TUBE TP SCH ×2 (08:44→21:15)
[2020-02-25] MEDS: NEOMY/BACITRAC/POLYMI OINT 28.35 GM TUBE TP SCH ×2 (08:44→21:15)
[2020-02-25] MEDS: ASPIRIN 81 MG TAB.CHEW GT SCH (08:48)
[2020-02-25] MEDS: HYDROGEN PEROXIDE 3% 118 ML BOTTLE TOP SCH ×2 (09:38→21:50)
[2020-02-25 20:37] VITALS: BP 113/67
[2020-02-25] MEDS: MULTIVIT, IRON, MIN NO. 8, FA TABLET GT SCH (21:15)
[2020-02-25] MEDS: MAGNESIUM OXIDE 400 MG TABLET GT SCH (21:15)
--- NOTE | 2020-02-25 21:57 | NUR ---
NOTIFIED [employer], FELICITA, OF COVID-19 POSSIBLE EXPOSURE AND TESTING PLAN. [employer] VERBALIZED UNDERSTANDING AND INFORM RIOHENRY VELEZ, FATHER OF PATIENT IN THE MORNING.
[2020-02-26] MEDS: NYSTATIN SUSPENSION 5 ML LIQUID UDC XX SCH ×5 (00:26→23:11)
--- NOTE | 2020-02-26 02:00 | NUR ---
New order for COVID-19 test per [facility] COVID-19 requirement.
[2020-02-26] MEDS: OMEPRAZOLE 40MG GT SCH (05:52)
[2020-02-26 08:04] VITALS: BP 121/76
[2020-02-26] MEDS: ASPIRIN 81 MG TAB.CHEW GT SCH (08:31)
[2020-02-26] MEDS: AMIODARONE HCL 200 MG TABLET GT SCH (08:32)
[2020-02-26] MEDS: levETIRAcetam 500 MG/5 ML LIQUID UDC GT SCH ×2 (08:32→20:55)
[2020-02-26] MEDS: COD LIVER OIL/ZINC OXIDE OINT 113 GM TUBE TP SCH ×2 (08:33→20:55)
[2020-02-26] MEDS: PHENOBARBITAL 30 MG/7.5 ML LIQUID UDC GT SCH ×2 (08:33→20:55)
[2020-02-26] MEDS: ASCORBIC ACID 500 MG TABLET PO SCH ×2 (08:33→20:55)
[2020-02-26] MEDS: DIAZEPAM 5 MG TABLET GT SCH ×2 (08:33→20:55)
[2020-02-26] MEDS: METOPROLOL TARTRATE 25 MG TABLET GT SCH ×2 (08:33→20:55)
[2020-02-26] MEDS: PROTEIN SUPPLEMENT (PROSTAT) 30 ML LIQUID GT SCH ×2 (08:33→20:55)
[2020-02-26] MEDS: NEOMY/BACITRAC/POLYMI OINT 28.35 GM TUBE TP SCH ×2 (08:33→20:55)
[2020-02-26] MEDS: HYDROGEN PEROXIDE 3% 118 ML BOTTLE TOP SCH ×2 (09:00→22:00)
[2020-02-26 20:11] VITALS: BP 152/88
[2020-02-26] MEDS: MULTIVIT, IRON, MIN NO. 8, FA TABLET GT SCH (20:55)
[2020-02-26] MEDS: MAGNESIUM OXIDE 400 MG TABLET GT SCH (20:55)
[2020-02-26] MEDS: VITAL AF 1.2 1,000 ML LIQUID GT PRN (21:58)
[2020-02-27] MEDS: NYSTATIN SUSPENSION 5 ML LIQUID UDC XX SCH ×4 (05:23→23:21)
[2020-02-27] MEDS: OMEPRAZOLE 40MG GT SCH (05:23)
[2020-02-27 08:00] VITALS: BP 126/77
[2020-02-27] MEDS: ASPIRIN 81 MG TAB.CHEW GT SCH (09:21)
[2020-02-27] MEDS: AMIODARONE HCL 200 MG TABLET GT SCH (09:21)
[2020-02-27] MEDS: levETIRAcetam 500 MG/5 ML LIQUID UDC GT SCH ×2 (09:22→20:36)
[2020-02-27] MEDS: PHENOBARBITAL 30 MG/7.5 ML LIQUID UDC GT SCH ×2 (09:23→20:36)
[2020-02-27] MEDS: PROTEIN SUPPLEMENT (PROSTAT) 30 ML LIQUID GT SCH ×2 (09:23→20:36)
[2020-02-27] MEDS: METOPROLOL TARTRATE 25 MG TABLET GT SCH ×2 (09:23→20:36)
[2020-02-27] MEDS: DIAZEPAM 5 MG TABLET GT SCH ×2 (09:25→20:36)
[2020-02-27] MEDS: ASCORBIC ACID 500 MG TABLET PO SCH ×2 (09:25→20:36)
[2020-02-27] MEDS: COD LIVER OIL/ZINC OXIDE OINT 113 GM TUBE TP SCH ×2 (09:26→20:37)
[2020-02-27] MEDS: NEOMY/BACITRAC/POLYMI OINT 28.35 GM TUBE TP SCH ×2 (09:26→20:37)
[2020-02-27] MEDS: HYDROGEN PEROXIDE 3% 118 ML BOTTLE TOP SCH ×2 (10:20→21:23)
--- NOTE | 2020-02-27 19:00 | NUR ---
Laboratory call with results,Covid 19 negative.
[2020-02-27] MEDS: MAGNESIUM OXIDE 400 MG TABLET GT SCH (20:36)
[2020-02-27] MEDS: MULTIVIT, IRON, MIN NO. 8, FA TABLET GT SCH (20:36)
[2020-02-27 20:45] VITALS: BP 115/97
[2020-02-27] MEDS: VITAL AF 1.2 1,000 ML LIQUID GT PRN (21:49)
[2020-02-28] MEDS: NYSTATIN SUSPENSION 5 ML LIQUID UDC XX SCH ×4 (05:32→23:21)
[2020-02-28] MEDS: OMEPRAZOLE 40MG GT SCH (05:32)
[2020-02-28 07:49] VITALS: BP 107/65
[2020-02-28] MEDS: AMIODARONE HCL 200 MG TABLET GT SCH (08:04)
[2020-02-28] MEDS: ASPIRIN 81 MG TAB.CHEW GT SCH (08:04)
[2020-02-28] MEDS: levETIRAcetam 500 MG/5 ML LIQUID UDC GT SCH ×2 (08:04→20:34)
[2020-02-28] MEDS: ASCORBIC ACID 500 MG TABLET PO SCH ×2 (08:05→20:35)
[2020-02-28] MEDS: PHENOBARBITAL 30 MG/7.5 ML LIQUID UDC GT SCH ×2 (08:05→20:35)
[2020-02-28] MEDS: DIAZEPAM 5 MG TABLET GT SCH ×2 (08:05→20:35)
[2020-02-28] MEDS: PROTEIN SUPPLEMENT (PROSTAT) 30 ML LIQUID GT SCH ×2 (08:05→20:35)
[2020-02-28] MEDS: METOPROLOL TARTRATE 25 MG TABLET GT SCH ×2 (08:05→20:34)
[2020-02-28] MEDS: COD LIVER OIL/ZINC OXIDE OINT 113 GM TUBE TP SCH ×2 (08:05→20:35)
[2020-02-28] MEDS: NEOMY/BACITRAC/POLYMI OINT 28.35 GM TUBE TP SCH ×2 (08:05→20:35)
[2020-02-28] MEDS: HYDROGEN PEROXIDE 3% 118 ML BOTTLE TOP SCH ×2 (09:17→21:24)
[2020-02-28] MEDS: VITAL AF 1.2 1,000 ML LIQUID GT PRN (12:33)
--- NOTE | 2020-02-28 19:10 | NUR ---
Spoke to Chaz ,PT'S father and aware pt COVID 19 results are negative.
[2020-02-28 20:13] VITALS: BP 149/77
[2020-02-28] MEDS: MAGNESIUM OXIDE 400 MG TABLET GT SCH (20:35)
[2020-02-28] MEDS: MULTIVIT, IRON, MIN NO. 8, FA TABLET GT SCH (20:35)
[2020-02-29] MEDS: OMEPRAZOLE 40MG GT SCH (05:13)
[2020-02-29] MEDS: NYSTATIN SUSPENSION 5 ML LIQUID UDC XX SCH ×3 (05:13→17:27)
[2020-02-29] MEDS: HYDROGEN PEROXIDE 3% 118 ML BOTTLE TOP SCH ×2 (07:16→21:14)
[2020-02-29] MEDS: ASPIRIN 81 MG TAB.CHEW GT SCH (08:17)
[2020-02-29] MEDS: levETIRAcetam 500 MG/5 ML LIQUID UDC GT SCH ×2 (08:18→21:13)
[2020-02-29] MEDS: AMIODARONE HCL 200 MG TABLET GT SCH (08:18)
[2020-02-29] MEDS: PHENOBARBITAL 30 MG/7.5 ML LIQUID UDC GT SCH ×2 (08:19→21:14)
[2020-02-29] MEDS: ASCORBIC ACID 500 MG TABLET PO SCH ×2 (08:19→21:14)
[2020-02-29] MEDS: DIAZEPAM 5 MG TABLET GT SCH ×2 (08:19→21:14)
[2020-02-29] MEDS: PROTEIN SUPPLEMENT (PROSTAT) 30 ML LIQUID GT SCH ×2 (08:19→21:14)
[2020-02-29] MEDS: COD LIVER OIL/ZINC OXIDE OINT 113 GM TUBE TP SCH ×2 (08:19→21:14)
[2020-02-29] MEDS: METOPROLOL TARTRATE 25 MG TABLET GT SCH ×2 (08:19→21:14)
[2020-02-29] MEDS: NEOMY/BACITRAC/POLYMI OINT 28.35 GM TUBE TP SCH ×2 (08:19→21:14)
[2020-02-29] MEDS: VITAL AF 1.2 1,000 ML LIQUID GT PRN (11:42)
[2020-02-29 20:27] VITALS: BP 119/82
[2020-02-29] MEDS: MAGNESIUM OXIDE 400 MG TABLET GT SCH (21:14)
[2020-02-29] MEDS: MULTIVIT, IRON, MIN NO. 8, FA TABLET GT SCH (21:14)
[2020-03-01] MEDS: OMEPRAZOLE 40MG GT SCH (06:33)
[2020-03-01] MEDS: NYSTATIN SUSPENSION 5 ML LIQUID UDC XX SCH ×3 (06:40→11:25)
[2020-03-01 07:43] VITALS: BP 110/61
[2020-03-01] MEDS: ASPIRIN 81 MG TAB.CHEW GT SCH (08:27)
[2020-03-01] MEDS: PROTEIN SUPPLEMENT (PROSTAT) 30 ML LIQUID GT SCH ×2 (08:28→21:02)
[2020-03-01] MEDS: DIAZEPAM 5 MG TABLET GT SCH ×2 (08:28→21:03)
[2020-03-01] MEDS: ASCORBIC ACID 500 MG TABLET PO SCH ×2 (08:28→21:03)
[2020-03-01] MEDS: METOPROLOL TARTRATE 25 MG TABLET GT SCH ×2 (08:28→21:01)
[2020-03-01] MEDS: AMIODARONE HCL 200 MG TABLET GT SCH (08:28)
[2020-03-01] MEDS: PHENOBARBITAL 30 MG/7.5 ML LIQUID UDC GT SCH ×2 (08:28→21:02)
[2020-03-01] MEDS: levETIRAcetam 500 MG/5 ML LIQUID UDC GT SCH ×2 (08:28→21:01)
[2020-03-01] MEDS: NEOMY/BACITRAC/POLYMI OINT 28.35 GM TUBE TP SCH ×2 (08:29→21:03)
[2020-03-01] MEDS: COD LIVER OIL/ZINC OXIDE OINT 113 GM TUBE TP SCH ×2 (08:29→21:03)
[2020-03-01] MEDS: HYDROGEN PEROXIDE 3% 118 ML BOTTLE TOP SCH ×2 (09:53→21:06)
--- NOTE | 2020-03-01 17:13 | NUR ---
INTERDISCIPLINARY PLAN OF CARE CONFERENCE was held today. Patient's father was not available to participate in the meeting. Dr. Lora and the Interdisciplinary team reviewed the current plan of care in detail. RN reported on patient's current medical condition, and findings of recent labs. No major changes in condition at this time. See RN IDT conference notes. See also all other disciplines IDT notes and physician's progress notes for additional details.
[2020-03-01] MEDS: VITAL AF 1.2 1,000 ML LIQUID GT PRN (17:21)
[2020-03-01 20:31] VITALS: BP 120/69
[2020-03-01] MEDS: MAGNESIUM OXIDE 400 MG TABLET GT SCH (21:02)
[2020-03-01] MEDS: MULTIVIT, IRON, MIN NO. 8, FA TABLET GT SCH (21:03)
[2020-03-02] MEDS: OMEPRAZOLE 40MG GT SCH (05:52)
[2020-03-02 07:49] VITALS: BP 129/87
[2020-03-02] MEDS: HYDROGEN PEROXIDE 3% 118 ML BOTTLE TOP SCH ×2 (08:39→21:07)
[2020-03-02] MEDS: levETIRAcetam 500 MG/5 ML LIQUID UDC GT SCH ×2 (08:57→20:24)
[2020-03-02] MEDS: ASPIRIN 81 MG TAB.CHEW GT SCH (08:57)
[2020-03-02] MEDS: AMIODARONE HCL 200 MG TABLET GT SCH (08:57)
[2020-03-02] MEDS: PROTEIN SUPPLEMENT (PROSTAT) 30 ML LIQUID GT SCH ×2 (08:58→20:26)
[2020-03-02] MEDS: COD LIVER OIL/ZINC OXIDE OINT 113 GM TUBE TP SCH ×2 (08:58→20:26)
[2020-03-02] MEDS: DIAZEPAM 5 MG TABLET GT SCH ×2 (08:58→20:26)
[2020-03-02] MEDS: METOPROLOL TARTRATE 25 MG TABLET GT SCH ×2 (08:58→20:25)
[2020-03-02] MEDS: ASCORBIC ACID 500 MG TABLET PO SCH ×2 (08:58→20:26)
[2020-03-02] MEDS: PHENOBARBITAL 30 MG/7.5 ML LIQUID UDC GT SCH ×2 (08:58→20:25)
[2020-03-02] MEDS: NEOMY/BACITRAC/POLYMI OINT 28.35 GM TUBE TP SCH ×2 (08:58→20:26)
--- NOTE | 2020-03-02 16:30 | NUR ---
Called and spoke to Ronald carpenter's father and made aware of the 2nd round of test for covid19 to be done this week.
--- NOTE | 2020-03-02 17:05 | NUR ---
New order for COVID-19 test per [facility] COVID-19 requirement.
--- NOTE | 2020-03-02 17:35 | NUR ---
Seen and examined by Dr Lora no new orders noted.
[2020-03-02 20:00] VITALS: BP 118/72
[2020-03-02] MEDS: MAGNESIUM OXIDE 400 MG TABLET GT SCH (20:25)
[2020-03-02] MEDS: MULTIVIT, IRON, MIN NO. 8, FA TABLET GT SCH (20:26)
[2020-03-03] MEDS: OMEPRAZOLE 40MG GT SCH (05:45)
[2020-03-03] MEDS: HYDROGEN PEROXIDE 3% 118 ML BOTTLE TOP SCH ×2 (07:42→21:39)
[2020-03-03 08:12] VITALS: BP 90/66
[2020-03-03] MEDS: ASPIRIN 81 MG TAB.CHEW GT SCH (08:34)
[2020-03-03] MEDS: levETIRAcetam 500 MG/5 ML LIQUID UDC GT SCH ×2 (08:34→20:34)
[2020-03-03] MEDS: DIAZEPAM 5 MG TABLET GT SCH ×2 (08:36→20:35)
[2020-03-03] MEDS: METOPROLOL TARTRATE 25 MG TABLET GT SCH ×2 (08:36→20:35)
[2020-03-03] MEDS: PHENOBARBITAL 30 MG/7.5 ML LIQUID UDC GT SCH ×2 (08:36→20:35)
[2020-03-03] MEDS: PROTEIN SUPPLEMENT (PROSTAT) 30 ML LIQUID GT SCH ×2 (08:36→20:35)
[2020-03-03] MEDS: AMIODARONE HCL 200 MG TABLET GT SCH (08:36)
[2020-03-03] MEDS: ASCORBIC ACID 500 MG TABLET PO SCH ×2 (08:36→20:35)
[2020-03-03] MEDS: COD LIVER OIL/ZINC OXIDE OINT 113 GM TUBE TP SCH ×2 (08:36→20:35)
--- NOTE | 2020-03-03 19:19 | NUR ---
PT'S FATHER AWARE OFPT'S COVID 19 TEST TOMORROW ANSD IN AGREEMENT
[2020-03-03 20:22] VITALS: BP 134/83
[2020-03-03] MEDS: MAGNESIUM OXIDE 400 MG TABLET GT SCH (20:35)
[2020-03-03] MEDS: MULTIVIT, IRON, MIN NO. 8, FA TABLET GT SCH (20:35)
[2020-03-04] MEDS: VITAL AF 1.2 1,000 ML LIQUID GT PRN (04:08)
[2020-03-04] MEDS: OMEPRAZOLE 40MG GT SCH (05:49)
[2020-03-04 08:11] VITALS: BP 105/66
[2020-03-04] MEDS: ASPIRIN 81 MG TAB.CHEW GT SCH (08:35)
[2020-03-04] MEDS: AMIODARONE HCL 200 MG TABLET GT SCH (08:36)
[2020-03-04] MEDS: levETIRAcetam 500 MG/5 ML LIQUID UDC GT SCH ×2 (08:37→21:00)
[2020-03-04] MEDS: PROTEIN SUPPLEMENT (PROSTAT) 30 ML LIQUID GT SCH ×2 (08:39→21:00)
[2020-03-04] MEDS: METOPROLOL TARTRATE 25 MG TABLET GT SCH ×2 (08:39→21:00)
[2020-03-04] MEDS: PHENOBARBITAL 30 MG/7.5 ML LIQUID UDC GT SCH ×2 (08:39→21:00)
[2020-03-04] MEDS: DIAZEPAM 5 MG TABLET GT SCH ×2 (08:39→21:00)
[2020-03-04] MEDS: ASCORBIC ACID 500 MG TABLET PO SCH ×2 (08:39→21:00)
[2020-03-04] MEDS: COD LIVER OIL/ZINC OXIDE OINT 113 GM TUBE TP SCH ×2 (08:40→21:00)
[2020-03-04] MEDS: HYDROGEN PEROXIDE 3% 118 ML BOTTLE TOP SCH ×2 (09:53→21:00)
[2020-03-04 20:00] VITALS: BP 152/87
[2020-03-04 21:00] VITALS: BP 132/70
[2020-03-04] MEDS: MULTIVIT, IRON, MIN NO. 8, FA TABLET GT SCH (21:00)
[2020-03-04] MEDS: MAGNESIUM OXIDE 400 MG TABLET GT SCH (21:00)
[2020-03-05] MEDS: VITAL AF 1.2 1,000 ML LIQUID GT PRN (03:25)
[2020-03-05] MEDS: OMEPRAZOLE 40MG GT SCH (06:20)
[2020-03-05 07:52] VITALS: BP 96/61
[2020-03-05] MEDS: ASPIRIN 81 MG TAB.CHEW GT SCH (08:33)
[2020-03-05] MEDS: AMIODARONE HCL 200 MG TABLET GT SCH (08:33)
[2020-03-05] MEDS: levETIRAcetam 500 MG/5 ML LIQUID UDC GT SCH ×2 (08:34→21:11)
[2020-03-05] MEDS: ASCORBIC ACID 500 MG TABLET PO SCH ×2 (08:40→20:57)
[2020-03-05] MEDS: COD LIVER OIL/ZINC OXIDE OINT 113 GM TUBE TP SCH ×2 (08:40→20:57)
[2020-03-05] MEDS: PHENOBARBITAL 30 MG/7.5 ML LIQUID UDC GT SCH ×2 (08:40→21:03)
[2020-03-05] MEDS: PROTEIN SUPPLEMENT (PROSTAT) 30 ML LIQUID GT SCH ×2 (08:40→21:03)
[2020-03-05] MEDS: METOPROLOL TARTRATE 25 MG TABLET GT SCH ×2 (08:40→20:55)
[2020-03-05] MEDS: DIAZEPAM 5 MG TABLET GT SCH ×2 (08:40→21:07)
[2020-03-05] MEDS: HYDROGEN PEROXIDE 3% 118 ML BOTTLE TOP SCH ×2 (09:01→21:25)
[2020-03-05] MEDS: MAGNESIUM OXIDE 400 MG TABLET GT SCH (20:58)
[2020-03-05] MEDS: MULTIVIT, IRON, MIN NO. 8, FA TABLET GT SCH (21:03)
[2020-03-05 23:14] VITALS: BP 125/79
[2020-03-06] MEDS: OMEPRAZOLE 40MG GT SCH (05:04)
[2020-03-06] MEDS: VITAL AF 1.2 1,000 ML LIQUID GT PRN (05:09)
[2020-03-06 07:57] VITALS: BP 100/64
[2020-03-06] MEDS: ASPIRIN 81 MG TAB.CHEW GT SCH (08:42)
[2020-03-06] MEDS: PHENOBARBITAL 30 MG/7.5 ML LIQUID UDC GT SCH ×2 (08:43→21:33)
[2020-03-06] MEDS: PROTEIN SUPPLEMENT (PROSTAT) 30 ML LIQUID GT SCH ×2 (08:43→21:33)
[2020-03-06] MEDS: ASCORBIC ACID 500 MG TABLET PO SCH ×2 (08:43→21:33)
[2020-03-06] MEDS: AMIODARONE HCL 200 MG TABLET GT SCH (08:43)
[2020-03-06] MEDS: METOPROLOL TARTRATE 25 MG TABLET GT SCH ×2 (08:43→21:33)
[2020-03-06] MEDS: levETIRAcetam 500 MG/5 ML LIQUID UDC GT SCH ×2 (08:43→21:32)
[2020-03-06] MEDS: DIAZEPAM 5 MG TABLET GT SCH ×2 (08:43→21:33)
[2020-03-06] MEDS: COD LIVER OIL/ZINC OXIDE OINT 113 GM TUBE TP SCH ×2 (08:43→21:33)
[2020-03-06] MEDS: HYDROGEN PEROXIDE 3% 118 ML BOTTLE TOP SCH ×2 (09:00→21:03)
--- NOTE | 2020-03-06 16:15 | NUR ---
PT'S FATHER AWARE THAT PT. IS NEGATIVE FOR COVID 19.
[2020-03-06 20:00] VITALS: BP 127/78
[2020-03-06] MEDS: MAGNESIUM OXIDE 400 MG TABLET GT SCH (21:33)
[2020-03-06] MEDS: MULTIVIT, IRON, MIN NO. 8, FA TABLET GT SCH (21:33)
[2020-03-07] MEDS: OMEPRAZOLE 40MG GT SCH (05:07)
[2020-03-07 07:48] VITALS: BP 147/80
[2020-03-07] MEDS: HYDROGEN PEROXIDE 3% 118 ML BOTTLE TOP SCH ×2 (09:28→21:30)
[2020-03-07] MEDS: ASPIRIN 81 MG TAB.CHEW GT SCH (09:37)
[2020-03-07] MEDS: METOPROLOL TARTRATE 25 MG TABLET GT SCH ×2 (09:37→20:52)
[2020-03-07] MEDS: AMIODARONE HCL 200 MG TABLET GT SCH (09:37)
[2020-03-07] MEDS: levETIRAcetam 500 MG/5 ML LIQUID UDC GT SCH ×2 (09:37→20:52)
[2020-03-07] MEDS: PHENOBARBITAL 30 MG/7.5 ML LIQUID UDC GT SCH ×2 (09:38→20:52)
[2020-03-07] MEDS: DIAZEPAM 5 MG TABLET GT SCH ×2 (09:38→20:52)
[2020-03-07] MEDS: COD LIVER OIL/ZINC OXIDE OINT 113 GM TUBE TP SCH ×2 (09:38→20:52)
[2020-03-07] MEDS: ASCORBIC ACID 500 MG TABLET PO SCH ×2 (09:38→20:52)
[2020-03-07] MEDS: PROTEIN SUPPLEMENT (PROSTAT) 30 ML LIQUID GT SCH ×2 (09:38→20:52)
--- NOTE | 2020-03-07 12:00 | NUR ---
SEEN BY FLASH Mclaughlin AND WITH NNO.
--- NOTE | 2020-03-07 16:00 | NUR ---
SEEN BY DR. ANTON AND WITH NNO.
[2020-03-07 20:50] VITALS: BP 125/79
[2020-03-07] MEDS: MAGNESIUM OXIDE 400 MG TABLET GT SCH (20:52)
[2020-03-07] MEDS: MULTIVIT, IRON, MIN NO. 8, FA TABLET GT SCH (20:52)
[2020-03-08] MEDS: OMEPRAZOLE 40MG GT SCH (05:24)
[2020-03-08] MEDS: VITAL AF 1.2 1,000 ML LIQUID GT PRN (07:18)
[2020-03-08 07:47] VITALS: BP 129/86
[2020-03-08] MEDS: METOPROLOL TARTRATE 25 MG TABLET GT SCH ×2 (08:51→21:42)
[2020-03-08] MEDS: PHENOBARBITAL 30 MG/7.5 ML LIQUID UDC GT SCH ×2 (08:51→21:42)
[2020-03-08] MEDS: DIAZEPAM 5 MG TABLET GT SCH ×2 (08:51→21:42)
[2020-03-08] MEDS: ASPIRIN 81 MG TAB.CHEW GT SCH (08:51)
[2020-03-08] MEDS: PROTEIN SUPPLEMENT (PROSTAT) 30 ML LIQUID GT SCH ×2 (08:51→21:42)
[2020-03-08] MEDS: AMIODARONE HCL 200 MG TABLET GT SCH (08:51)
[2020-03-08] MEDS: levETIRAcetam 500 MG/5 ML LIQUID UDC GT SCH ×2 (08:51→21:42)
[2020-03-08] MEDS: ASCORBIC ACID 500 MG TABLET PO SCH ×2 (08:51→21:42)
[2020-03-08] MEDS: COD LIVER OIL/ZINC OXIDE OINT 113 GM TUBE TP SCH ×2 (08:51→21:43)
[2020-03-08] MEDS: HYDROGEN PEROXIDE 3% 118 ML BOTTLE TOP SCH ×2 (09:41→21:27)
[2020-03-08 20:41] VITALS: BP 132/64
[2020-03-08] MEDS: MAGNESIUM OXIDE 400 MG TABLET GT SCH (21:42)
[2020-03-08] MEDS: MULTIVIT, IRON, MIN NO. 8, FA TABLET GT SCH (21:42)
[2020-03-09] MEDS: OMEPRAZOLE 40MG GT SCH (05:02)
[2020-03-09] MEDS: VITAL AF 1.2 1,000 ML LIQUID GT PRN (07:00)
[2020-03-09 07:49] VITALS: BP 123/74
[2020-03-09] MEDS: AMIODARONE HCL 200 MG TABLET GT SCH (08:51)
[2020-03-09] MEDS: ASPIRIN 81 MG TAB.CHEW GT SCH (08:51)
[2020-03-09] MEDS: levETIRAcetam 500 MG/5 ML LIQUID UDC GT SCH ×2 (08:51→21:33)
[2020-03-09] MEDS: DIAZEPAM 5 MG TABLET GT SCH ×2 (08:52→21:42)
[2020-03-09] MEDS: PHENOBARBITAL 30 MG/7.5 ML LIQUID UDC GT SCH ×2 (08:52→21:42)
[2020-03-09] MEDS: METOPROLOL TARTRATE 25 MG TABLET GT SCH ×2 (08:52→21:33)
[2020-03-09] MEDS: PROTEIN SUPPLEMENT (PROSTAT) 30 ML LIQUID GT SCH ×2 (08:52→21:34)
[2020-03-09] MEDS: COD LIVER OIL/ZINC OXIDE OINT 113 GM TUBE TP SCH ×2 (08:52→21:35)
[2020-03-09] MEDS: ASCORBIC ACID 500 MG TABLET PO SCH ×2 (08:52→21:35)
[2020-03-09] MEDS: HYDROGEN PEROXIDE 3% 118 ML BOTTLE TOP SCH ×2 (09:00→21:11)
[2020-03-09 21:02] VITALS: BP 131/84
[2020-03-09] MEDS: MAGNESIUM OXIDE 400 MG TABLET GT SCH (21:34)
[2020-03-09] MEDS: MULTIVIT, IRON, MIN NO. 8, FA TABLET GT SCH (21:35)
[2020-03-10] MEDS: VITAL AF 1.2 1,000 ML LIQUID GT PRN ×3 (01:52→23:37)
[2020-03-10] MEDS: OMEPRAZOLE 40MG GT SCH (06:18)
[2020-03-10 07:32] VITALS: BP 106/66
[2020-03-10] MEDS: AMIODARONE HCL 200 MG TABLET GT SCH (08:43)
[2020-03-10] MEDS: ASPIRIN 81 MG TAB.CHEW GT SCH (08:43)
[2020-03-10] MEDS: levETIRAcetam 500 MG/5 ML LIQUID UDC GT SCH ×2 (08:44→21:26)
[2020-03-10] MEDS: PHENOBARBITAL 30 MG/7.5 ML LIQUID UDC GT SCH ×2 (08:46→21:31)
[2020-03-10] MEDS: METOPROLOL TARTRATE 25 MG TABLET GT SCH ×2 (08:46→21:31)
[2020-03-10] MEDS: PROTEIN SUPPLEMENT (PROSTAT) 30 ML LIQUID GT SCH ×2 (08:46→21:31)
[2020-03-10] MEDS: DIAZEPAM 5 MG TABLET GT SCH ×2 (08:46→21:32)
[2020-03-10] MEDS: ASCORBIC ACID 500 MG TABLET PO SCH ×2 (08:46→21:32)
[2020-03-10] MEDS: COD LIVER OIL/ZINC OXIDE OINT 113 GM TUBE TP SCH ×2 (08:47→21:32)
[2020-03-10] MEDS: HYDROGEN PEROXIDE 3% 118 ML BOTTLE TOP SCH ×2 (10:20→21:30)
[2020-03-10 20:00] VITALS: BP 125/63
[2020-03-10] MEDS: MAGNESIUM OXIDE 400 MG TABLET GT SCH (21:31)
[2020-03-10] MEDS: MULTIVIT, IRON, MIN NO. 8, FA TABLET GT SCH (21:32)
[2020-03-10 21:33] VITALS: BP 113/69
[2020-03-11] MEDS: OMEPRAZOLE 40MG GT SCH (05:07)
[2020-03-11 07:33] VITALS: BP 139/74
[2020-03-11] MEDS: ASPIRIN 81 MG TAB.CHEW GT SCH (08:55)
[2020-03-11] MEDS: AMIODARONE HCL 200 MG TABLET GT SCH (08:56)
[2020-03-11] MEDS: levETIRAcetam 500 MG/5 ML LIQUID UDC GT SCH ×2 (08:58→21:26)
[2020-03-11] MEDS: METOPROLOL TARTRATE 25 MG TABLET GT SCH ×2 (08:59→21:26)
[2020-03-11] MEDS: PHENOBARBITAL 30 MG/7.5 ML LIQUID UDC GT SCH ×2 (08:59→21:26)
[2020-03-11] MEDS: ASCORBIC ACID 500 MG TABLET PO SCH ×2 (08:59→21:27)
[2020-03-11] MEDS: PROTEIN SUPPLEMENT (PROSTAT) 30 ML LIQUID GT SCH ×2 (08:59→21:27)
[2020-03-11] MEDS: COD LIVER OIL/ZINC OXIDE OINT 113 GM TUBE TP SCH ×2 (08:59→21:27)
[2020-03-11] MEDS: DIAZEPAM 5 MG TABLET GT SCH ×2 (08:59→21:27)
[2020-03-11] MEDS: HYDROGEN PEROXIDE 3% 118 ML BOTTLE TOP SCH ×2 (10:20→21:32)
[2020-03-11] MEDS: MAGNESIUM OXIDE 400 MG TABLET GT SCH (21:26)
[2020-03-11] MEDS: MULTIVIT, IRON, MIN NO. 8, FA TABLET GT SCH (21:33)
[2020-03-11 22:51] VITALS: BP 129/78
[2020-03-12] MEDS: VITAL AF 1.2 1,000 ML LIQUID GT PRN (00:27)
[2020-03-12] MEDS: OMEPRAZOLE 40MG GT SCH (05:52)
[2020-03-12 07:47] VITALS: BP 120/69
[2020-03-12] MEDS: AMIODARONE HCL 200 MG TABLET GT SCH (08:00)
[2020-03-12] MEDS: ASPIRIN 81 MG TAB.CHEW GT SCH (08:00)
[2020-03-12] MEDS: levETIRAcetam 500 MG/5 ML LIQUID UDC GT SCH ×2 (08:01→21:04)
[2020-03-12] MEDS: DIAZEPAM 5 MG TABLET GT SCH ×2 (08:02→21:08)
[2020-03-12] MEDS: ASCORBIC ACID 500 MG TABLET PO SCH ×2 (08:02→21:08)
[2020-03-12] MEDS: METOPROLOL TARTRATE 25 MG TABLET GT SCH ×2 (08:02→21:08)
[2020-03-12] MEDS: PHENOBARBITAL 30 MG/7.5 ML LIQUID UDC GT SCH ×2 (08:02→21:08)
[2020-03-12] MEDS: PROTEIN SUPPLEMENT (PROSTAT) 30 ML LIQUID GT SCH ×2 (08:02→21:08)
[2020-03-12] MEDS: COD LIVER OIL/ZINC OXIDE OINT 113 GM TUBE TP SCH ×2 (08:03→21:08)
[2020-03-12] MEDS: HYDROGEN PEROXIDE 3% 118 ML BOTTLE TOP SCH ×2 (09:46→21:55)
[2020-03-12] MEDS: MAGNESIUM OXIDE 400 MG TABLET GT SCH (21:08)
[2020-03-12] MEDS: MULTIVIT, IRON, MIN NO. 8, FA TABLET GT SCH (21:08)
[2020-03-12 23:06] VITALS: BP 111/69
[2020-03-13] MEDS: VITAL AF 1.2 1,000 ML LIQUID GT PRN (00:37)
[2020-03-13] MEDS: OMEPRAZOLE 40MG GT SCH (05:39)
[2020-03-13 07:58] VITALS: BP 105/51
[2020-03-13] MEDS: AMIODARONE HCL 200 MG TABLET GT SCH (08:04)
[2020-03-13] MEDS: ASPIRIN 81 MG TAB.CHEW GT SCH (08:04)
[2020-03-13] MEDS: levETIRAcetam 500 MG/5 ML LIQUID UDC GT SCH ×2 (08:04→21:01)
[2020-03-13] MEDS: COD LIVER OIL/ZINC OXIDE OINT 113 GM TUBE TP SCH ×2 (08:05→21:02)
[2020-03-13] MEDS: METOPROLOL TARTRATE 25 MG TABLET GT SCH ×2 (08:05→21:02)
[2020-03-13] MEDS: PHENOBARBITAL 30 MG/7.5 ML LIQUID UDC GT SCH ×2 (08:05→21:02)
[2020-03-13] MEDS: PROTEIN SUPPLEMENT (PROSTAT) 30 ML LIQUID GT SCH ×2 (08:05→21:02)
[2020-03-13] MEDS: ASCORBIC ACID 500 MG TABLET PO SCH ×2 (08:05→21:02)
[2020-03-13] MEDS: DIAZEPAM 5 MG TABLET GT SCH ×2 (08:05→21:02)
[2020-03-13] MEDS: HYDROGEN PEROXIDE 3% 118 ML BOTTLE TOP SCH ×2 (09:00→21:50)
[2020-03-13] MEDS: MULTIVIT, IRON, MIN NO. 8, FA TABLET GT SCH (21:02)
[2020-03-13] MEDS: MAGNESIUM OXIDE 400 MG TABLET GT SCH (21:02)
[2020-03-13 22:43] VITALS: BP 125/81
[2020-03-14] MEDS: VITAL AF 1.2 1,000 ML LIQUID GT PRN (01:02)
[2020-03-14] MEDS: OMEPRAZOLE 40MG GT SCH (05:45)
[2020-03-14 07:43] VITALS: BP 120/81
[2020-03-14] MEDS: levETIRAcetam 500 MG/5 ML LIQUID UDC GT SCH ×2 (08:08→21:04)
[2020-03-14] MEDS: AMIODARONE HCL 200 MG TABLET GT SCH (08:08)
[2020-03-14] MEDS: ASPIRIN 81 MG TAB.CHEW GT SCH (08:08)
[2020-03-14] MEDS: DIAZEPAM 5 MG TABLET GT SCH ×2 (08:09→21:05)
[2020-03-14] MEDS: PHENOBARBITAL 30 MG/7.5 ML LIQUID UDC GT SCH ×2 (08:09→21:05)
[2020-03-14] MEDS: METOPROLOL TARTRATE 25 MG TABLET GT SCH ×2 (08:09→21:00)
[2020-03-14] MEDS: HYDROGEN PEROXIDE 3% 118 ML BOTTLE TOP SCH ×2 (08:09→21:15)
[2020-03-14] MEDS: PROTEIN SUPPLEMENT (PROSTAT) 30 ML LIQUID GT SCH ×2 (08:09→21:05)
[2020-03-14] MEDS: ASCORBIC ACID 500 MG TABLET PO SCH ×2 (08:09→21:05)
[2020-03-14] MEDS: COD LIVER OIL/ZINC OXIDE OINT 113 GM TUBE TP SCH ×2 (08:10→21:05)
[2020-03-14 20:25] VITALS: BP 130/77
[2020-03-14] MEDS: MULTIVIT, IRON, MIN NO. 8, FA TABLET GT SCH (21:05)
[2020-03-14] MEDS: MAGNESIUM OXIDE 400 MG TABLET GT SCH (21:05)
[2020-03-15] MEDS: OMEPRAZOLE 40MG GT SCH (05:18)
[2020-03-15] MEDS: VITAL AF 1.2 1,000 ML LIQUID GT PRN (06:41)
[2020-03-15 07:43] VITALS: BP 112/70
[2020-03-15] MEDS: ASPIRIN 81 MG TAB.CHEW GT SCH (08:13)
[2020-03-15] MEDS: levETIRAcetam 500 MG/5 ML LIQUID UDC GT SCH ×2 (08:14→21:31)
[2020-03-15] MEDS: AMIODARONE HCL 200 MG TABLET GT SCH (08:14)
[2020-03-15] MEDS: METOPROLOL TARTRATE 25 MG TABLET GT SCH ×2 (08:20→21:32)
[2020-03-15] MEDS: PHENOBARBITAL 30 MG/7.5 ML LIQUID UDC GT SCH ×2 (08:20→21:33)
[2020-03-15] MEDS: DIAZEPAM 5 MG TABLET GT SCH ×2 (08:20→21:34)
[2020-03-15] MEDS: PROTEIN SUPPLEMENT (PROSTAT) 30 ML LIQUID GT SCH ×2 (08:20→21:33)
[2020-03-15] MEDS: ASCORBIC ACID 500 MG TABLET PO SCH ×2 (08:23→21:34)
[2020-03-15] MEDS: COD LIVER OIL/ZINC OXIDE OINT 113 GM TUBE TP SCH ×2 (08:23→21:34)
[2020-03-15] MEDS: HYDROGEN PEROXIDE 3% 118 ML BOTTLE TOP SCH ×2 (09:00→20:55)
[2020-03-15 20:33] VITALS: BP 127/80
[2020-03-15] MEDS: MAGNESIUM OXIDE 400 MG TABLET GT SCH (21:33)
[2020-03-15] MEDS: MULTIVIT, IRON, MIN NO. 8, FA TABLET GT SCH (21:33)
[2020-03-16] MEDS: VITAL AF 1.2 1,000 ML LIQUID GT PRN (00:41)
[2020-03-16] MEDS: OMEPRAZOLE 40MG GT SCH (05:27)
[2020-03-16] MEDS: HYDROGEN PEROXIDE 3% 118 ML BOTTLE TOP SCH ×2 (07:27→22:00)
[2020-03-16 07:37] VITALS: BP 118/70
[2020-03-16] MEDS: AMIODARONE HCL 200 MG TABLET GT SCH (09:22)
[2020-03-16] MEDS: levETIRAcetam 500 MG/5 ML LIQUID UDC GT SCH ×2 (09:22→21:12)
[2020-03-16] MEDS: PHENOBARBITAL 30 MG/7.5 ML LIQUID UDC GT SCH ×2 (09:23→21:15)
[2020-03-16] MEDS: ASCORBIC ACID 500 MG TABLET PO SCH ×2 (09:23→21:17)
[2020-03-16] MEDS: PROTEIN SUPPLEMENT (PROSTAT) 30 ML LIQUID GT SCH ×2 (09:23→21:15)
[2020-03-16] MEDS: METOPROLOL TARTRATE 25 MG TABLET GT SCH ×2 (09:23→21:14)
[2020-03-16] MEDS: DIAZEPAM 5 MG TABLET GT SCH ×2 (09:23→21:16)
[2020-03-16] MEDS: COD LIVER OIL/ZINC OXIDE OINT 113 GM TUBE TP SCH ×2 (09:23→21:18)
[2020-03-16] MEDS: ASPIRIN 81 MG TAB.CHEW GT SCH (09:29)
[2020-03-16 20:24] VITALS: BP 108/64
[2020-03-16] MEDS: MAGNESIUM OXIDE 400 MG TABLET GT SCH (21:15)
[2020-03-16] MEDS: MULTIVIT, IRON, MIN NO. 8, FA TABLET GT SCH (21:16)
[2020-03-17] MEDS: VITAL AF 1.2 1,000 ML LIQUID GT PRN ×2 (00:24→21:34)
[2020-03-17] MEDS: OMEPRAZOLE 40MG GT SCH (05:56)
[2020-03-17 07:39] VITALS: BP 120/69
[2020-03-17] MEDS: ASPIRIN 81 MG TAB.CHEW GT SCH (08:15)
[2020-03-17] MEDS: AMIODARONE HCL 200 MG TABLET GT SCH (08:15)
[2020-03-17] MEDS: levETIRAcetam 500 MG/5 ML LIQUID UDC GT SCH ×2 (08:15→21:22)
[2020-03-17] MEDS: COD LIVER OIL/ZINC OXIDE OINT 113 GM TUBE TP SCH ×2 (08:16→21:23)
[2020-03-17] MEDS: PHENOBARBITAL 30 MG/7.5 ML LIQUID UDC GT SCH ×2 (08:16→21:23)
[2020-03-17] MEDS: ASCORBIC ACID 500 MG TABLET PO SCH ×2 (08:16→21:23)
[2020-03-17] MEDS: METOPROLOL TARTRATE 25 MG TABLET GT SCH ×2 (08:16→21:00)
[2020-03-17] MEDS: DIAZEPAM 5 MG TABLET GT SCH ×2 (08:16→21:23)
[2020-03-17] MEDS: PROTEIN SUPPLEMENT (PROSTAT) 30 ML LIQUID GT SCH ×2 (08:16→21:23)
[2020-03-17] MEDS: HYDROGEN PEROXIDE 3% 118 ML BOTTLE TOP SCH ×2 (10:10→21:54)
--- NOTE | 2020-03-17 17:00 | NUR ---
SEEN BY DR. TOLBERT AND WITH NNO.
[2020-03-17 20:00] VITALS: BP 111/63
[2020-03-17] MEDS: MAGNESIUM OXIDE 400 MG TABLET GT SCH (21:23)
[2020-03-17] MEDS: MULTIVIT, IRON, MIN NO. 8, FA TABLET GT SCH (21:23)
[2020-03-18] MEDS: OMEPRAZOLE 40MG GT SCH (06:25)
[2020-03-18 07:49] VITALS: BP 139/79
[2020-03-18] MEDS: ASPIRIN 81 MG TAB.CHEW GT SCH (08:28)
[2020-03-18] MEDS: AMIODARONE HCL 200 MG TABLET GT SCH (08:29)
[2020-03-18] MEDS: levETIRAcetam 500 MG/5 ML LIQUID UDC GT SCH ×2 (08:29→20:22)
[2020-03-18] MEDS: PROTEIN SUPPLEMENT (PROSTAT) 30 ML LIQUID GT SCH ×2 (08:30→20:22)
[2020-03-18] MEDS: ASCORBIC ACID 500 MG TABLET PO SCH ×2 (08:30→20:22)
[2020-03-18] MEDS: PHENOBARBITAL 30 MG/7.5 ML LIQUID UDC GT SCH ×2 (08:30→20:22)
[2020-03-18] MEDS: COD LIVER OIL/ZINC OXIDE OINT 113 GM TUBE TP SCH ×2 (08:30→20:22)
[2020-03-18] MEDS: DIAZEPAM 5 MG TABLET GT SCH ×2 (08:30→20:22)
[2020-03-18] MEDS: METOPROLOL TARTRATE 25 MG TABLET GT SCH ×2 (08:30→20:22)
[2020-03-18] MEDS: HYDROGEN PEROXIDE 3% 118 ML BOTTLE TOP SCH ×2 (09:25→21:00)
[2020-03-18] MEDS: VITAL AF 1.2 1,000 ML LIQUID GT PRN (17:34)
[2020-03-18 20:00] VITALS: BP 124/66
[2020-03-18] MEDS: MAGNESIUM OXIDE 400 MG TABLET GT SCH (20:22)
[2020-03-18] MEDS: MULTIVIT, IRON, MIN NO. 8, FA TABLET GT SCH (20:22)
--- NOTE | 2020-03-19 02:30 | NUR ---
Change previous GT site care to wash with soap and water and cover with dry dressing daily.
[2020-03-19] MEDS: OMEPRAZOLE 40MG GT SCH (05:04)
[2020-03-19 07:46] VITALS: BP 124/65
[2020-03-19] MEDS: HYDROGEN PEROXIDE 3% 118 ML BOTTLE TOP SCH ×2 (07:56→21:03)
[2020-03-19] MEDS: levETIRAcetam 500 MG/5 ML LIQUID UDC GT SCH ×2 (09:40→21:00)
[2020-03-19] MEDS: ASPIRIN 81 MG TAB.CHEW GT SCH (09:40)
[2020-03-19] MEDS: AMIODARONE HCL 200 MG TABLET GT SCH (09:40)
[2020-03-19] MEDS: METOPROLOL TARTRATE 25 MG TABLET GT SCH ×2 (09:41→21:00)
[2020-03-19] MEDS: COD LIVER OIL/ZINC OXIDE OINT 113 GM TUBE TP SCH ×2 (09:42→21:03)
[2020-03-19] MEDS: PHENOBARBITAL 30 MG/7.5 ML LIQUID UDC GT SCH ×2 (09:42→21:01)
[2020-03-19] MEDS: ASCORBIC ACID 500 MG TABLET PO SCH ×2 (09:42→21:02)
[2020-03-19] MEDS: PROTEIN SUPPLEMENT (PROSTAT) 30 ML LIQUID GT SCH ×2 (09:42→21:01)
[2020-03-19] MEDS: DIAZEPAM 5 MG TABLET GT SCH ×2 (09:42→21:09)
[2020-03-19 20:30] VITALS: BP 117/71
[2020-03-19] MEDS: MULTIVIT, IRON, MIN NO. 8, FA TABLET GT SCH (21:02)
[2020-03-19] MEDS: MAGNESIUM OXIDE 400 MG TABLET GT SCH (21:02)
[2020-03-20] MEDS: OMEPRAZOLE 40MG GT SCH (05:16)
[2020-03-20 07:40] VITALS: BP 117/72
[2020-03-20] MEDS: levETIRAcetam 500 MG/5 ML LIQUID UDC GT SCH ×2 (08:13→21:15)
[2020-03-20] MEDS: AMIODARONE HCL 200 MG TABLET GT SCH (08:13)
[2020-03-20] MEDS: ASPIRIN 81 MG TAB.CHEW GT SCH (08:13)
[2020-03-20] MEDS: PROTEIN SUPPLEMENT (PROSTAT) 30 ML LIQUID GT SCH ×2 (08:14→21:16)
[2020-03-20] MEDS: ASCORBIC ACID 500 MG TABLET PO SCH ×2 (08:14→21:16)
[2020-03-20] MEDS: DIAZEPAM 5 MG TABLET GT SCH ×2 (08:14→21:16)
[2020-03-20] MEDS: COD LIVER OIL/ZINC OXIDE OINT 113 GM TUBE TP SCH ×2 (08:14→21:16)
[2020-03-20] MEDS: PHENOBARBITAL 30 MG/7.5 ML LIQUID UDC GT SCH ×2 (08:14→21:15)
[2020-03-20] MEDS: METOPROLOL TARTRATE 25 MG TABLET GT SCH ×2 (08:14→21:15)
[2020-03-20] MEDS: HYDROGEN PEROXIDE 3% 118 ML BOTTLE TOP SCH ×2 (09:17→21:14)
[2020-03-20] MEDS: VITAL AF 1.2 1,000 ML LIQUID GT PRN (18:50)
[2020-03-20 20:25] VITALS: BP 128/70
[2020-03-20] MEDS: MAGNESIUM OXIDE 400 MG TABLET GT SCH (21:15)
[2020-03-20] MEDS: MULTIVIT, IRON, MIN NO. 8, FA TABLET GT SCH (21:16)
[2020-03-21] MEDS: OMEPRAZOLE 40MG GT SCH (05:24)
[2020-03-21 07:51] VITALS: BP 125/77
[2020-03-21] MEDS: METOPROLOL TARTRATE 25 MG TABLET GT SCH ×2 (08:02→21:09)
[2020-03-21] MEDS: PHENOBARBITAL 30 MG/7.5 ML LIQUID UDC GT SCH ×2 (08:02→21:09)
[2020-03-21] MEDS: ASPIRIN 81 MG TAB.CHEW GT SCH (08:02)
[2020-03-21] MEDS: PROTEIN SUPPLEMENT (PROSTAT) 30 ML LIQUID GT SCH ×2 (08:02→21:09)
[2020-03-21] MEDS: AMIODARONE HCL 200 MG TABLET GT SCH (08:02)
[2020-03-21] MEDS: levETIRAcetam 500 MG/5 ML LIQUID UDC GT SCH ×2 (08:02→21:09)
[2020-03-21] MEDS: DIAZEPAM 5 MG TABLET GT SCH ×2 (08:02→21:09)
[2020-03-21] MEDS: ASCORBIC ACID 500 MG TABLET PO SCH ×2 (08:03→21:09)
[2020-03-21] MEDS: COD LIVER OIL/ZINC OXIDE OINT 113 GM TUBE TP SCH ×2 (08:03→21:09)
--- NOTE | 2020-03-21 08:58 | NUR ---
PT'S FATHER AWARE OF COVID 19 TESTING AND IN AGREEMENT.
[2020-03-21] MEDS: HYDROGEN PEROXIDE 3% 118 ML BOTTLE TOP SCH ×2 (09:00→20:47)
--- NOTE | 2020-03-21 12:09 | NUR ---
SEEN BY FLASH MADISON.
[2020-03-21 20:43] VITALS: BP 116/80
[2020-03-21] MEDS: MULTIVIT, IRON, MIN NO. 8, FA TABLET GT SCH (21:09)
[2020-03-21] MEDS: MAGNESIUM OXIDE 400 MG TABLET GT SCH (21:09)
[2020-03-22] MEDS: OMEPRAZOLE 40MG GT SCH (05:13)
[2020-03-22 07:28] VITALS: BP 118/76
[2020-03-22] MEDS: ASPIRIN 81 MG TAB.CHEW GT SCH (08:42)
[2020-03-22] MEDS: levETIRAcetam 500 MG/5 ML LIQUID UDC GT SCH ×2 (08:42→20:19)
[2020-03-22] MEDS: AMIODARONE HCL 200 MG TABLET GT SCH (08:42)
[2020-03-22] MEDS: ASCORBIC ACID 500 MG TABLET PO SCH ×2 (08:43→20:21)
[2020-03-22] MEDS: METOPROLOL TARTRATE 25 MG TABLET GT SCH ×2 (08:43→20:20)
[2020-03-22] MEDS: DIAZEPAM 5 MG TABLET GT SCH ×2 (08:43→20:21)
[2020-03-22] MEDS: PROTEIN SUPPLEMENT (PROSTAT) 30 ML LIQUID GT SCH ×2 (08:43→20:20)
[2020-03-22] MEDS: PHENOBARBITAL 30 MG/7.5 ML LIQUID UDC GT SCH ×2 (08:43→20:20)
[2020-03-22] MEDS: COD LIVER OIL/ZINC OXIDE OINT 113 GM TUBE TP SCH ×2 (08:43→20:21)
[2020-03-22] MEDS: HYDROGEN PEROXIDE 3% 118 ML BOTTLE TOP SCH ×2 (09:37→21:05)
[2020-03-22 20:00] VITALS: BP 118/70
[2020-03-22] MEDS: MAGNESIUM OXIDE 400 MG TABLET GT SCH (20:20)
[2020-03-22] MEDS: MULTIVIT, IRON, MIN NO. 8, FA TABLET GT SCH (20:21)
[2020-03-23] MEDS: OMEPRAZOLE 40MG GT SCH (05:30)
[2020-03-23] MEDS: METOPROLOL TARTRATE 25 MG TABLET GT SCH ×2 (08:37→21:03)
[2020-03-23] MEDS: levETIRAcetam 500 MG/5 ML LIQUID UDC GT SCH ×2 (08:37→21:02)
[2020-03-23] MEDS: PHENOBARBITAL 30 MG/7.5 ML LIQUID UDC GT SCH ×2 (08:37→21:04)
[2020-03-23] MEDS: ASPIRIN 81 MG TAB.CHEW GT SCH (08:37)
[2020-03-23] MEDS: AMIODARONE HCL 200 MG TABLET GT SCH (08:37)
[2020-03-23] MEDS: COD LIVER OIL/ZINC OXIDE OINT 113 GM TUBE TP SCH ×2 (08:38→21:04)
[2020-03-23] MEDS: PROTEIN SUPPLEMENT (PROSTAT) 30 ML LIQUID GT SCH ×2 (08:38→21:04)
[2020-03-23] MEDS: DIAZEPAM 5 MG TABLET GT SCH ×2 (08:38→21:04)
[2020-03-23] MEDS: ASCORBIC ACID 500 MG TABLET PO SCH ×2 (08:38→21:04)
[2020-03-23] MEDS: HYDROGEN PEROXIDE 3% 118 ML BOTTLE TOP SCH ×2 (09:54→21:55)
[2020-03-23 18:40] VITALS: BP 117/87
[2020-03-23 20:15] VITALS: BP 126/66
[2020-03-23] MEDS: MAGNESIUM OXIDE 400 MG TABLET GT SCH (21:03)
[2020-03-23] MEDS: MULTIVIT, IRON, MIN NO. 8, FA TABLET GT SCH (21:04)
[2020-03-24] MEDS: OMEPRAZOLE 40MG GT SCH (05:42)
[2020-03-24] MEDS: HYDROGEN PEROXIDE 3% 118 ML BOTTLE TOP SCH ×2 (07:18→20:49)
[2020-03-24 07:33] VITALS: BP 117/73
[2020-03-24] MEDS: COD LIVER OIL/ZINC OXIDE OINT 113 GM TUBE TP SCH ×2 (08:38→20:26)
[2020-03-24] MEDS: levETIRAcetam 500 MG/5 ML LIQUID UDC GT SCH ×2 (08:38→20:24)
[2020-03-24] MEDS: ASCORBIC ACID 500 MG TABLET PO SCH ×2 (08:38→20:26)
[2020-03-24] MEDS: PROTEIN SUPPLEMENT (PROSTAT) 30 ML LIQUID GT SCH ×2 (08:38→20:26)
[2020-03-24] MEDS: METOPROLOL TARTRATE 25 MG TABLET GT SCH ×2 (08:38→20:25)
[2020-03-24] MEDS: DIAZEPAM 5 MG TABLET GT SCH ×2 (08:38→20:26)
[2020-03-24] MEDS: PHENOBARBITAL 30 MG/7.5 ML LIQUID UDC GT SCH ×2 (08:38→20:26)
[2020-03-24] MEDS: ASPIRIN 81 MG TAB.CHEW GT SCH (08:38)
[2020-03-24] MEDS: AMIODARONE HCL 200 MG TABLET GT SCH (08:39)
--- NOTE | 2020-03-24 19:50 | NUR ---
PT RECEIVED ON CONTINUOUS VENT. TRACH CARE DONE. TRACH IN PLACED AND SECURED WITH TRACH TIE. BACK UP TRACH AND AMBU BAG AT BEDSIDE. SUCTION MODERATE AMOUNT THICK WHITE SECRETIONS. VENT CHECKED, ALARMS WORKING WELL AND AUDIBLE. NO DISTRESS NOTED AT THIS TIME. WILL CONTINUE TO MONITOR.
[2020-03-24 20:00] VITALS: BP 107/66
[2020-03-24] MEDS: MULTIVIT, IRON, MIN NO. 8, FA TABLET GT SCH (20:26)
[2020-03-24] MEDS: MAGNESIUM OXIDE 400 MG TABLET GT SCH (20:26)
[2020-03-25] MEDS: OMEPRAZOLE 40MG GT SCH (05:45)
[2020-03-25 07:32] VITALS: BP 104/68
[2020-03-25] MEDS: AMIODARONE HCL 200 MG TABLET GT SCH (08:30)
[2020-03-25] MEDS: ASPIRIN 81 MG TAB.CHEW GT SCH (08:30)
[2020-03-25] MEDS: PHENOBARBITAL 30 MG/7.5 ML LIQUID UDC GT SCH ×2 (08:31→20:18)
[2020-03-25] MEDS: levETIRAcetam 500 MG/5 ML LIQUID UDC GT SCH ×2 (08:31→20:18)
[2020-03-25] MEDS: PROTEIN SUPPLEMENT (PROSTAT) 30 ML LIQUID GT SCH ×2 (08:31→20:18)
[2020-03-25] MEDS: ASCORBIC ACID 500 MG TABLET PO SCH ×2 (08:31→20:18)
[2020-03-25] MEDS: METOPROLOL TARTRATE 25 MG TABLET GT SCH ×2 (08:31→20:18)
[2020-03-25] MEDS: COD LIVER OIL/ZINC OXIDE OINT 113 GM TUBE TP SCH ×2 (08:31→20:18)
[2020-03-25] MEDS: DIAZEPAM 5 MG TABLET GT SCH ×2 (08:31→20:18)
[2020-03-25] MEDS: HYDROGEN PEROXIDE 3% 118 ML BOTTLE TOP SCH ×2 (09:00→21:07)
[2020-03-25] MEDS: VITAL AF 1.2 1,000 ML LIQUID GT PRN (12:05)
[2020-03-25] MEDS: MULTIVIT, IRON, MIN NO. 8, FA TABLET GT SCH (20:18)
[2020-03-25] MEDS: MAGNESIUM OXIDE 400 MG TABLET GT SCH (20:18)
[2020-03-25 20:22] VITALS: BP 128/71
[2020-03-26] MEDS: OMEPRAZOLE 40MG GT SCH (05:02)
[2020-03-26 08:00] VITALS: BP 119/83
[2020-03-26] MEDS: ASPIRIN 81 MG TAB.CHEW GT SCH (08:14)
[2020-03-26] MEDS: levETIRAcetam 500 MG/5 ML LIQUID UDC GT SCH ×2 (08:14→21:10)
[2020-03-26] MEDS: AMIODARONE HCL 200 MG TABLET GT SCH (08:14)
[2020-03-26] MEDS: ASCORBIC ACID 500 MG TABLET PO SCH ×2 (08:15→21:11)
[2020-03-26] MEDS: DIAZEPAM 5 MG TABLET GT SCH ×2 (08:15→21:11)
[2020-03-26] MEDS: PHENOBARBITAL 30 MG/7.5 ML LIQUID UDC GT SCH ×2 (08:15→21:11)
[2020-03-26] MEDS: PROTEIN SUPPLEMENT (PROSTAT) 30 ML LIQUID GT SCH ×2 (08:15→21:11)
[2020-03-26] MEDS: METOPROLOL TARTRATE 25 MG TABLET GT SCH ×2 (08:15→21:10)
[2020-03-26] MEDS: COD LIVER OIL/ZINC OXIDE OINT 113 GM TUBE TP SCH ×2 (08:16→21:11)
[2020-03-26] MEDS: HYDROGEN PEROXIDE 3% 118 ML BOTTLE TOP SCH ×2 (08:49→21:49)
[2020-03-26] MEDS: VITAL AF 1.2 1,000 ML LIQUID GT PRN (12:20)
[2020-03-26 20:00] VITALS: BP 117/74
[2020-03-26] MEDS: MAGNESIUM OXIDE 400 MG TABLET GT SCH (21:10)
[2020-03-26] MEDS: MULTIVIT, IRON, MIN NO. 8, FA TABLET GT SCH (21:11)
[2020-03-27] MEDS: OMEPRAZOLE 40MG GT SCH (06:18)
[2020-03-27 07:35] VITALS: BP 134/73
[2020-03-27] MEDS: HYDROGEN PEROXIDE 3% 118 ML BOTTLE TOP SCH ×2 (08:30→20:41)
[2020-03-27] MEDS: levETIRAcetam 500 MG/5 ML LIQUID UDC GT SCH ×2 (08:32→21:16)
[2020-03-27] MEDS: AMIODARONE HCL 200 MG TABLET GT SCH (08:32)
[2020-03-27] MEDS: ASPIRIN 81 MG TAB.CHEW GT SCH (08:32)
[2020-03-27] MEDS: PHENOBARBITAL 30 MG/7.5 ML LIQUID UDC GT SCH ×2 (08:33→21:18)
[2020-03-27] MEDS: PROTEIN SUPPLEMENT (PROSTAT) 30 ML LIQUID GT SCH ×2 (08:33→21:18)
[2020-03-27] MEDS: ASCORBIC ACID 500 MG TABLET PO SCH ×2 (08:33→21:19)
[2020-03-27] MEDS: METOPROLOL TARTRATE 25 MG TABLET GT SCH ×2 (08:33→21:18)
[2020-03-27] MEDS: DIAZEPAM 5 MG TABLET GT SCH ×2 (08:33→21:19)
[2020-03-27] MEDS: COD LIVER OIL/ZINC OXIDE OINT 113 GM TUBE TP SCH ×2 (08:34→21:19)
[2020-03-27] MEDS: VITAL AF 1.2 1,000 ML LIQUID GT PRN (11:45)
--- NOTE | 2020-03-27 16:28 | NUR ---
Covid19 test done.
[2020-03-27 20:09] VITALS: BP 132/78
[2020-03-27] MEDS: MAGNESIUM OXIDE 400 MG TABLET GT SCH (21:18)
[2020-03-27] MEDS: MULTIVIT, IRON, MIN NO. 8, FA TABLET GT SCH (21:19)
[2020-03-28] MEDS: OMEPRAZOLE 40MG GT SCH (05:46)
[2020-03-28] MEDS: HYDROGEN PEROXIDE 3% 118 ML BOTTLE TOP SCH ×2 (07:31→20:56)
[2020-03-28 07:38] VITALS: BP 104/60
[2020-03-28] MEDS: ASPIRIN 81 MG TAB.CHEW GT SCH (08:14)
[2020-03-28] MEDS: levETIRAcetam 500 MG/5 ML LIQUID UDC GT SCH ×2 (08:16→21:12)
[2020-03-28] MEDS: AMIODARONE HCL 200 MG TABLET GT SCH (08:16)
[2020-03-28] MEDS: PROTEIN SUPPLEMENT (PROSTAT) 30 ML LIQUID GT SCH ×2 (08:17→21:13)
[2020-03-28] MEDS: METOPROLOL TARTRATE 25 MG TABLET GT SCH ×2 (08:17→21:12)
[2020-03-28] MEDS: COD LIVER OIL/ZINC OXIDE OINT 113 GM TUBE TP SCH ×2 (08:17→21:13)
[2020-03-28] MEDS: PHENOBARBITAL 30 MG/7.5 ML LIQUID UDC GT SCH ×2 (08:17→21:13)
[2020-03-28] MEDS: DIAZEPAM 5 MG TABLET GT SCH ×2 (08:17→21:13)
[2020-03-28] MEDS: ASCORBIC ACID 500 MG TABLET PO SCH ×2 (08:17→21:13)
--- NOTE | 2020-03-28 16:12 | NUR ---
BILL called patient's father Chaz [phone] and informed him of possible COVID-19 exposure and testing plan for the current week and next week, as mandated by [facility] regulations. Chaz expressed understanding, and thanked BILL for the information provided.
[2020-03-28 20:18] VITALS: BP 126/75
[2020-03-28] MEDS: MAGNESIUM OXIDE 400 MG TABLET GT SCH (21:12)
[2020-03-28] MEDS: MULTIVIT, IRON, MIN NO. 8, FA TABLET GT SCH (21:13)
[2020-03-29] MEDS: OMEPRAZOLE 40MG GT SCH (05:35)
[2020-03-29 07:26] VITALS: BP 107/64
[2020-03-29] MEDS: levETIRAcetam 500 MG/5 ML LIQUID UDC GT SCH ×2 (08:17→21:29)
[2020-03-29] MEDS: ASPIRIN 81 MG TAB.CHEW GT SCH (08:17)
[2020-03-29] MEDS: AMIODARONE HCL 200 MG TABLET GT SCH (08:17)
[2020-03-29] MEDS: METOPROLOL TARTRATE 25 MG TABLET GT SCH ×2 (08:18→21:29)
[2020-03-29] MEDS: PROTEIN SUPPLEMENT (PROSTAT) 30 ML LIQUID GT SCH ×2 (08:18→21:29)
[2020-03-29] MEDS: ASCORBIC ACID 500 MG TABLET PO SCH ×2 (08:18→21:31)
[2020-03-29] MEDS: COD LIVER OIL/ZINC OXIDE OINT 113 GM TUBE TP SCH ×2 (08:18→21:31)
[2020-03-29] MEDS: PHENOBARBITAL 30 MG/7.5 ML LIQUID UDC GT SCH ×2 (08:18→21:29)
[2020-03-29] MEDS: DIAZEPAM 5 MG TABLET GT SCH ×2 (08:18→21:31)
[2020-03-29] MEDS: HYDROGEN PEROXIDE 3% 118 ML BOTTLE TOP SCH ×2 (09:38→21:44)
[2020-03-29 20:00] VITALS: BP 102/60
[2020-03-29] MEDS: MULTIVIT, IRON, MIN NO. 8, FA TABLET GT SCH (21:29)
[2020-03-29] MEDS: MAGNESIUM OXIDE 400 MG TABLET GT SCH (21:29)
[2020-03-30] MEDS: VITAL AF 1.2 1,000 ML LIQUID GT PRN (03:34)
[2020-03-30] MEDS: OMEPRAZOLE 40MG GT SCH (05:09)
[2020-03-30 08:00] VITALS: BP 113/69
[2020-03-30] MEDS: METOPROLOL TARTRATE 25 MG TABLET GT SCH ×2 (09:00→21:00)
[2020-03-30] MEDS: AMIODARONE HCL 200 MG TABLET GT SCH (09:05)
[2020-03-30] MEDS: ASPIRIN 81 MG TAB.CHEW GT SCH (09:05)
[2020-03-30] MEDS: levETIRAcetam 500 MG/5 ML LIQUID UDC GT SCH ×2 (09:05→21:00)
[2020-03-30] MEDS: PHENOBARBITAL 30 MG/7.5 ML LIQUID UDC GT SCH ×2 (09:06→21:00)
[2020-03-30] MEDS: PROTEIN SUPPLEMENT (PROSTAT) 30 ML LIQUID GT SCH ×2 (09:06→21:00)
[2020-03-30] MEDS: DIAZEPAM 5 MG TABLET GT SCH ×2 (09:06→21:00)
[2020-03-30] MEDS: COD LIVER OIL/ZINC OXIDE OINT 113 GM TUBE TP SCH ×2 (09:06→21:00)
[2020-03-30] MEDS: ASCORBIC ACID 500 MG TABLET PO SCH ×2 (09:06→21:00)
[2020-03-30] MEDS: HYDROGEN PEROXIDE 3% 118 ML BOTTLE TOP SCH ×2 (10:15→20:09)
--- NOTE | 2020-03-30 19:00 | NUR ---
Chaz carpenter's father notified regarding Covid 19 result is negative.
[2020-03-30 20:59] VITALS: BP 137/81
[2020-03-30] MEDS: MULTIVIT, IRON, MIN NO. 8, FA TABLET GT SCH (21:00)
[2020-03-30] MEDS: MAGNESIUM OXIDE 400 MG TABLET GT SCH (21:00)
[2020-03-31] MEDS: VITAL AF 1.2 1,000 ML LIQUID GT PRN (04:10)
[2020-03-31] MEDS: OMEPRAZOLE 40MG GT SCH (05:15)
[2020-03-31 07:59] VITALS: BP 116/63
[2020-03-31] MEDS: COD LIVER OIL/ZINC OXIDE OINT 113 GM TUBE TP SCH ×2 (08:09→21:26)
[2020-03-31] MEDS: levETIRAcetam 500 MG/5 ML LIQUID UDC GT SCH ×2 (08:10→21:29)
[2020-03-31] MEDS: METOPROLOL TARTRATE 25 MG TABLET GT SCH ×2 (08:11→21:22)
[2020-03-31] MEDS: DIAZEPAM 5 MG TABLET GT SCH ×2 (08:12→21:25)
[2020-03-31] MEDS: ASCORBIC ACID 500 MG TABLET PO SCH ×2 (08:12→21:25)
[2020-03-31] MEDS: AMIODARONE HCL 200 MG TABLET GT SCH (08:12)
[2020-03-31] MEDS: ASPIRIN 81 MG TAB.CHEW GT SCH (08:12)
[2020-03-31] MEDS: PHENOBARBITAL 30 MG/7.5 ML LIQUID UDC GT SCH ×2 (08:12→21:24)
[2020-03-31] MEDS: PROTEIN SUPPLEMENT (PROSTAT) 30 ML LIQUID GT SCH ×2 (08:17→21:25)
[2020-03-31] MEDS: HYDROGEN PEROXIDE 3% 118 ML BOTTLE TOP SCH ×2 (09:00→21:03)
[2020-03-31 20:00] VITALS: BP 110/62
[2020-03-31] MEDS: MAGNESIUM OXIDE 400 MG TABLET GT SCH (21:22)
[2020-03-31] MEDS: MULTIVIT, IRON, MIN NO. 8, FA TABLET GT SCH (21:25)
[2020-04-01] MEDS: VITAL AF 1.2 1,000 ML LIQUID GT PRN (02:54)
[2020-04-01] MEDS: OMEPRAZOLE 40MG GT SCH (05:26)
[2020-04-01 07:34] VITALS: BP 117/69
[2020-04-01] MEDS: ASPIRIN 81 MG TAB.CHEW GT SCH (08:33)
[2020-04-01] MEDS: AMIODARONE HCL 200 MG TABLET GT SCH (08:33)
[2020-04-01] MEDS: levETIRAcetam 500 MG/5 ML LIQUID UDC GT SCH ×2 (08:34→21:22)
[2020-04-01] MEDS: PROTEIN SUPPLEMENT (PROSTAT) 30 ML LIQUID GT SCH ×2 (08:35→21:23)
[2020-04-01] MEDS: PHENOBARBITAL 30 MG/7.5 ML LIQUID UDC GT SCH ×2 (08:35→21:23)
[2020-04-01] MEDS: METOPROLOL TARTRATE 25 MG TABLET GT SCH ×2 (08:35→21:23)
[2020-04-01] MEDS: ASCORBIC ACID 500 MG TABLET PO SCH ×2 (08:35→21:23)
[2020-04-01] MEDS: DIAZEPAM 5 MG TABLET GT SCH ×2 (08:35→21:23)
[2020-04-01] MEDS: COD LIVER OIL/ZINC OXIDE OINT 113 GM TUBE TP SCH ×2 (08:35→21:23)
[2020-04-01] MEDS: HYDROGEN PEROXIDE 3% 118 ML BOTTLE TOP SCH ×2 (08:41→21:55)
[2020-04-01] MEDS: MULTIVIT, IRON, MIN NO. 8, FA TABLET GT SCH (21:23)
[2020-04-01] MEDS: MAGNESIUM OXIDE 400 MG TABLET GT SCH (21:23)
[2020-04-01 22:00] VITALS: BP 102/65
[2020-04-02] MEDS: VITAL AF 1.2 1,000 ML LIQUID GT PRN (02:47)
[2020-04-02] MEDS: OMEPRAZOLE 40MG GT SCH (05:47)
[2020-04-02 07:38] VITALS: BP 118/66
[2020-04-02] MEDS: HYDROGEN PEROXIDE 3% 118 ML BOTTLE TOP SCH ×2 (08:10→21:00)
[2020-04-02] MEDS: levETIRAcetam 500 MG/5 ML LIQUID UDC GT SCH ×2 (08:28→21:21)
[2020-04-02] MEDS: AMIODARONE HCL 200 MG TABLET GT SCH (08:28)
[2020-04-02] MEDS: ASCORBIC ACID 500 MG TABLET PO SCH ×2 (08:29→21:21)
[2020-04-02] MEDS: PROTEIN SUPPLEMENT (PROSTAT) 30 ML LIQUID GT SCH ×2 (08:29→21:21)
[2020-04-02] MEDS: PHENOBARBITAL 30 MG/7.5 ML LIQUID UDC GT SCH ×2 (08:29→21:21)
[2020-04-02] MEDS: DIAZEPAM 5 MG TABLET GT SCH ×2 (08:29→21:21)
[2020-04-02] MEDS: METOPROLOL TARTRATE 25 MG TABLET GT SCH ×2 (08:29→21:21)
[2020-04-02] MEDS: COD LIVER OIL/ZINC OXIDE OINT 113 GM TUBE TP SCH ×2 (08:30→21:21)
[2020-04-02] MEDS: ASPIRIN 81 MG TAB.CHEW GT SCH (08:32)
[2020-04-02] MEDS: MAGNESIUM OXIDE 400 MG TABLET GT SCH (21:21)
[2020-04-02] MEDS: MULTIVIT, IRON, MIN NO. 8, FA TABLET GT SCH (21:21)
[2020-04-02 22:16] VITALS: BP 108/66
[2020-04-03] MEDS: VITAL AF 1.2 1,000 ML LIQUID GT PRN (02:13)
[2020-04-03] MEDS: OMEPRAZOLE 40MG GT SCH (05:28)
[2020-04-03 07:50] VITALS: BP 124/75
[2020-04-03] MEDS: ASPIRIN 81 MG TAB.CHEW GT SCH (08:37)
[2020-04-03] MEDS: PROTEIN SUPPLEMENT (PROSTAT) 30 ML LIQUID GT SCH ×2 (08:38→21:12)
[2020-04-03] MEDS: AMIODARONE HCL 200 MG TABLET GT SCH (08:38)
[2020-04-03] MEDS: METOPROLOL TARTRATE 25 MG TABLET GT SCH ×2 (08:38→21:12)
[2020-04-03] MEDS: levETIRAcetam 500 MG/5 ML LIQUID UDC GT SCH ×2 (08:38→21:12)
[2020-04-03] MEDS: PHENOBARBITAL 30 MG/7.5 ML LIQUID UDC GT SCH ×2 (08:38→21:12)
[2020-04-03] MEDS: ASCORBIC ACID 500 MG TABLET PO SCH ×2 (08:38→21:13)
[2020-04-03] MEDS: DIAZEPAM 5 MG TABLET GT SCH ×2 (08:38→21:13)
[2020-04-03] MEDS: COD LIVER OIL/ZINC OXIDE OINT 113 GM TUBE TP SCH ×2 (08:39→21:13)
[2020-04-03] MEDS: HYDROGEN PEROXIDE 3% 118 ML BOTTLE TOP SCH ×2 (08:43→21:20)
[2020-04-03] MEDS: MULTIVIT, IRON, MIN NO. 8, FA TABLET GT SCH (21:12)
[2020-04-03] MEDS: MAGNESIUM OXIDE 400 MG TABLET GT SCH (21:12)
[2020-04-03 22:33] VITALS: BP 121/67
[2020-04-04] MEDS: VITAL AF 1.2 1,000 ML LIQUID GT PRN (04:09)
[2020-04-04] MEDS: OMEPRAZOLE 40MG GT SCH (05:47)
[2020-04-04 07:27] VITALS: BP 102/63
[2020-04-04 07:43] VITALS: BP 102/63
[2020-04-04] MEDS: levETIRAcetam 500 MG/5 ML LIQUID UDC GT SCH ×2 (08:34→21:04)
[2020-04-04] MEDS: AMIODARONE HCL 200 MG TABLET GT SCH (08:34)
[2020-04-04] MEDS: ASPIRIN 81 MG TAB.CHEW GT SCH (08:34)
[2020-04-04] MEDS: DIAZEPAM 5 MG TABLET GT SCH ×2 (08:35→21:05)
[2020-04-04] MEDS: PHENOBARBITAL 30 MG/7.5 ML LIQUID UDC GT SCH ×2 (08:35→21:05)
[2020-04-04] MEDS: COD LIVER OIL/ZINC OXIDE OINT 113 GM TUBE TP SCH ×2 (08:35→21:05)
[2020-04-04] MEDS: PROTEIN SUPPLEMENT (PROSTAT) 30 ML LIQUID GT SCH ×2 (08:35→21:05)
[2020-04-04] MEDS: METOPROLOL TARTRATE 25 MG TABLET GT SCH ×2 (08:35→21:05)
[2020-04-04] MEDS: ASCORBIC ACID 500 MG TABLET PO SCH ×2 (08:35→21:05)
[2020-04-04] MEDS: HYDROGEN PEROXIDE 3% 118 ML BOTTLE TOP SCH ×2 (09:28→20:38)
--- NOTE | 2020-04-04 15:30 | NUR ---
NEW ORDER FOR COVID 19 TEST CARRIED OUT.
--- NOTE | 2020-04-04 16:05 | NUR ---
Called pt's father Chaz made aware of the Covid test to be performed to the pt.
[2020-04-04 20:00] VITALS: BP 123/68
[2020-04-04] MEDS: MULTIVIT, IRON, MIN NO. 8, FA TABLET GT SCH (21:05)
[2020-04-04] MEDS: MAGNESIUM OXIDE 400 MG TABLET GT SCH (21:05)
[2020-04-05] MEDS: VITAL AF 1.2 1,000 ML LIQUID GT PRN (03:08)
[2020-04-05] MEDS: OMEPRAZOLE 40MG GT SCH (06:31)
[2020-04-05 07:31] VITALS: BP 111/66
[2020-04-05] MEDS: ASPIRIN 81 MG TAB.CHEW GT SCH (08:38)
[2020-04-05] MEDS: levETIRAcetam 500 MG/5 ML LIQUID UDC GT SCH ×2 (08:39→21:23)
[2020-04-05] MEDS: AMIODARONE HCL 200 MG TABLET GT SCH (08:39)
[2020-04-05] MEDS: METOPROLOL TARTRATE 25 MG TABLET GT SCH ×2 (08:39→21:17)
[2020-04-05] MEDS: PROTEIN SUPPLEMENT (PROSTAT) 30 ML LIQUID GT SCH ×2 (08:40→21:22)
[2020-04-05] MEDS: COD LIVER OIL/ZINC OXIDE OINT 113 GM TUBE TP SCH ×2 (08:40→21:22)
[2020-04-05] MEDS: PHENOBARBITAL 30 MG/7.5 ML LIQUID UDC GT SCH ×2 (08:40→21:30)
[2020-04-05] MEDS: ASCORBIC ACID 500 MG TABLET PO SCH ×2 (08:40→21:22)
[2020-04-05] MEDS: DIAZEPAM 5 MG TABLET GT SCH ×2 (08:40→21:30)
[2020-04-05] MEDS: HYDROGEN PEROXIDE 3% 118 ML BOTTLE TOP SCH ×2 (09:08→21:22)
--- NOTE | 2020-04-05 15:46 | NUR ---
INTERDISCIPLINARY PLAN OF CARE CONFERENCE was held today. Patient's family does not participate in the meetings, and is very minimally involved in patient's care. Dr. Lora and the Interdisciplinary Team reviewed the current plan of care in detail. RN reported on patient's medical condition. See RN IDT conference notes. No major changes in medical condition were reported by nursing or by other disciplines. See all other disciplines IDT notes and physician's progress notes for additional details.
[2020-04-05 20:00] VITALS: BP 116/58
[2020-04-05] MEDS: MULTIVIT, IRON, MIN NO. 8, FA TABLET GT SCH (21:22)
[2020-04-05] MEDS: MAGNESIUM OXIDE 400 MG TABLET GT SCH (21:22)
[2020-04-06] MEDS: VITAL AF 1.2 1,000 ML LIQUID GT PRN (04:46)
[2020-04-06] MEDS: OMEPRAZOLE 40MG GT SCH (05:12)
[2020-04-06 07:47] VITALS: BP 116/66
[2020-04-06] MEDS: ASPIRIN 81 MG TAB.CHEW GT SCH (08:13)
[2020-04-06] MEDS: AMIODARONE HCL 200 MG TABLET GT SCH (08:14)
[2020-04-06] MEDS: levETIRAcetam 500 MG/5 ML LIQUID UDC GT SCH ×2 (08:15→20:35)
[2020-04-06] MEDS: PROTEIN SUPPLEMENT (PROSTAT) 30 ML LIQUID GT SCH ×2 (08:16→20:38)
[2020-04-06] MEDS: DIAZEPAM 5 MG TABLET GT SCH ×2 (08:16→20:37)
[2020-04-06] MEDS: METOPROLOL TARTRATE 25 MG TABLET GT SCH ×2 (08:16→20:35)
[2020-04-06] MEDS: PHENOBARBITAL 30 MG/7.5 ML LIQUID UDC GT SCH ×2 (08:16→20:36)
[2020-04-06] MEDS: ASCORBIC ACID 500 MG TABLET PO SCH ×2 (08:16→20:37)
[2020-04-06] MEDS: COD LIVER OIL/ZINC OXIDE OINT 113 GM TUBE TP SCH ×2 (09:00→20:38)
[2020-04-06] MEDS: HYDROGEN PEROXIDE 3% 118 ML BOTTLE TOP SCH ×2 (09:46→21:29)
--- NOTE | 2020-04-06 18:38 | NUR ---
Chaz Ramirez's father notified COVID 19 results is negative.
[2020-04-06 20:00] VITALS: BP 121/70
[2020-04-06] MEDS: MULTIVIT, IRON, MIN NO. 8, FA TABLET GT SCH (20:36)
[2020-04-06] MEDS: MAGNESIUM OXIDE 400 MG TABLET GT SCH (20:36)
[2020-04-07] MEDS: OMEPRAZOLE 40MG GT SCH (05:36)
[2020-04-07 07:30] VITALS: BP 124/69
[2020-04-07] MEDS: ASPIRIN 81 MG TAB.CHEW GT SCH (08:46)
[2020-04-07] MEDS: AMIODARONE HCL 200 MG TABLET GT SCH (08:47)
[2020-04-07] MEDS: levETIRAcetam 500 MG/5 ML LIQUID UDC GT SCH ×2 (08:48→20:55)
[2020-04-07] MEDS: PHENOBARBITAL 30 MG/7.5 ML LIQUID UDC GT SCH ×2 (08:50→20:56)
[2020-04-07] MEDS: METOPROLOL TARTRATE 25 MG TABLET GT SCH ×2 (08:50→20:56)
[2020-04-07] MEDS: DIAZEPAM 5 MG TABLET GT SCH ×2 (08:51→21:15)
[2020-04-07] MEDS: COD LIVER OIL/ZINC OXIDE OINT 113 GM TUBE TP SCH ×2 (08:51→20:56)
[2020-04-07] MEDS: PROTEIN SUPPLEMENT (PROSTAT) 30 ML LIQUID GT SCH ×2 (08:51→20:56)
[2020-04-07] MEDS: ASCORBIC ACID 500 MG TABLET PO SCH ×2 (08:51→20:56)
[2020-04-07] MEDS: HYDROGEN PEROXIDE 3% 118 ML BOTTLE TOP SCH ×2 (09:00→20:56)
[2020-04-07 20:40] VITALS: BP 110/68
[2020-04-07] MEDS: MAGNESIUM OXIDE 400 MG TABLET GT SCH (20:56)
[2020-04-07] MEDS: MULTIVIT, IRON, MIN NO. 8, FA TABLET GT SCH (20:56)
[2020-04-08] MEDS: OMEPRAZOLE 40MG GT SCH (05:05)
[2020-04-08] MEDS: ASPIRIN 81 MG TAB.CHEW GT SCH (08:25)
[2020-04-08] MEDS: levETIRAcetam 500 MG/5 ML LIQUID UDC GT SCH ×2 (08:30→20:30)
[2020-04-08] MEDS: AMIODARONE HCL 200 MG TABLET GT SCH (08:30)
[2020-04-08 08:32] VITALS: BP 103/62
[2020-04-08] MEDS: ASCORBIC ACID 500 MG TABLET PO SCH ×2 (08:32→20:31)
[2020-04-08] MEDS: COD LIVER OIL/ZINC OXIDE OINT 113 GM TUBE TP SCH ×2 (08:32→20:31)
[2020-04-08] MEDS: PROTEIN SUPPLEMENT (PROSTAT) 30 ML LIQUID GT SCH ×2 (08:32→20:31)
[2020-04-08] MEDS: DIAZEPAM 5 MG TABLET GT SCH ×2 (08:32→20:31)
[2020-04-08] MEDS: PHENOBARBITAL 30 MG/7.5 ML LIQUID UDC GT SCH ×2 (08:32→20:31)
[2020-04-08] MEDS: HYDROGEN PEROXIDE 3% 118 ML BOTTLE TOP SCH ×2 (09:00→21:54)
[2020-04-08] MEDS: METOPROLOL TARTRATE 25 MG TABLET GT SCH ×2 (09:00→20:30)
[2020-04-08] MEDS: MAGNESIUM OXIDE 400 MG TABLET GT SCH (20:31)
[2020-04-08] MEDS: MULTIVIT, IRON, MIN NO. 8, FA TABLET GT SCH (20:31)
[2020-04-08 22:32] VITALS: BP 111/60
[2020-04-09] MEDS: OMEPRAZOLE 40MG GT SCH (05:10)
[2020-04-09 07:44] VITALS: BP 130/64
[2020-04-09] MEDS: ASPIRIN 81 MG TAB.CHEW GT SCH (08:49)
[2020-04-09] MEDS: AMIODARONE HCL 200 MG TABLET GT SCH (08:50)
[2020-04-09] MEDS: levETIRAcetam 500 MG/5 ML LIQUID UDC GT SCH ×2 (08:50→20:38)
[2020-04-09] MEDS: DIAZEPAM 5 MG TABLET GT SCH ×2 (08:51→20:39)
[2020-04-09] MEDS: PHENOBARBITAL 30 MG/7.5 ML LIQUID UDC GT SCH ×2 (08:51→20:39)
[2020-04-09] MEDS: PROTEIN SUPPLEMENT (PROSTAT) 30 ML LIQUID GT SCH ×2 (08:51→20:39)
[2020-04-09] MEDS: METOPROLOL TARTRATE 25 MG TABLET GT SCH ×2 (08:51→20:39)
[2020-04-09] MEDS: ASCORBIC ACID 500 MG TABLET PO SCH ×2 (08:51→20:39)
[2020-04-09] MEDS: COD LIVER OIL/ZINC OXIDE OINT 113 GM TUBE TP SCH ×2 (08:52→20:39)
[2020-04-09] MEDS: HYDROGEN PEROXIDE 3% 118 ML BOTTLE TOP SCH ×2 (09:00→21:06)
[2020-04-09] MEDS: VITAL AF 1.2 1,000 ML LIQUID GT PRN (17:28)
[2020-04-09] MEDS: MULTIVIT, IRON, MIN NO. 8, FA TABLET GT SCH (20:39)
[2020-04-09] MEDS: MAGNESIUM OXIDE 400 MG TABLET GT SCH (20:39)
[2020-04-09 21:46] VITALS: BP 155/83
[2020-04-10] MEDS: OMEPRAZOLE 40MG GT SCH (05:02)
[2020-04-10 07:52] VITALS: BP 155/84
[2020-04-10] MEDS: ASPIRIN 81 MG TAB.CHEW GT SCH (08:16)
[2020-04-10] MEDS: levETIRAcetam 500 MG/5 ML LIQUID UDC GT SCH ×2 (08:16→20:30)
[2020-04-10] MEDS: AMIODARONE HCL 200 MG TABLET GT SCH (08:16)
[2020-04-10] MEDS: PROTEIN SUPPLEMENT (PROSTAT) 30 ML LIQUID GT SCH ×2 (08:17→20:30)
[2020-04-10] MEDS: ASCORBIC ACID 500 MG TABLET PO SCH ×2 (08:17→20:30)
[2020-04-10] MEDS: METOPROLOL TARTRATE 25 MG TABLET GT SCH ×2 (08:17→20:30)
[2020-04-10] MEDS: DIAZEPAM 5 MG TABLET GT SCH ×2 (08:17→20:30)
[2020-04-10] MEDS: PHENOBARBITAL 30 MG/7.5 ML LIQUID UDC GT SCH ×2 (08:17→20:30)
[2020-04-10] MEDS: COD LIVER OIL/ZINC OXIDE OINT 113 GM TUBE TP SCH ×2 (08:18→20:30)
[2020-04-10] MEDS: HYDROGEN PEROXIDE 3% 118 ML BOTTLE TOP SCH ×2 (09:00→21:19)
[2020-04-10] MEDS: VITAL AF 1.2 1,000 ML LIQUID GT PRN (15:25)
[2020-04-10 20:12] VITALS: BP 114/64
[2020-04-10] MEDS: MULTIVIT, IRON, MIN NO. 8, FA TABLET GT SCH (20:30)
[2020-04-10] MEDS: MAGNESIUM OXIDE 400 MG TABLET GT SCH (20:30)
[2020-04-11] MEDS: OMEPRAZOLE 40MG GT SCH (05:27)
[2020-04-11 07:42] VITALS: BP 96/54
[2020-04-11] MEDS: ASPIRIN 81 MG TAB.CHEW GT SCH (08:45)
[2020-04-11] MEDS: METOPROLOL TARTRATE 25 MG TABLET GT SCH ×2 (08:48→20:50)
[2020-04-11] MEDS: levETIRAcetam 500 MG/5 ML LIQUID UDC GT SCH ×2 (08:48→20:50)
[2020-04-11] MEDS: AMIODARONE HCL 200 MG TABLET GT SCH (08:48)
[2020-04-11] MEDS: PHENOBARBITAL 30 MG/7.5 ML LIQUID UDC GT SCH ×2 (08:49→20:51)
[2020-04-11] MEDS: PROTEIN SUPPLEMENT (PROSTAT) 30 ML LIQUID GT SCH ×2 (08:49→20:51)
[2020-04-11] MEDS: ASCORBIC ACID 500 MG TABLET PO SCH ×2 (08:49→20:51)
[2020-04-11] MEDS: COD LIVER OIL/ZINC OXIDE OINT 113 GM TUBE TP SCH ×2 (08:49→20:51)
[2020-04-11] MEDS: DIAZEPAM 5 MG TABLET GT SCH ×2 (08:49→20:51)
[2020-04-11] MEDS: HYDROGEN PEROXIDE 3% 118 ML BOTTLE TOP SCH ×2 (09:17→21:25)
[2020-04-11] MEDS: VITAL AF 1.2 1,000 ML LIQUID GT PRN (14:10)
[2020-04-11 20:12] VITALS: BP 106/62
[2020-04-11] MEDS: MAGNESIUM OXIDE 400 MG TABLET GT SCH (20:51)
[2020-04-11] MEDS: MULTIVIT, IRON, MIN NO. 8, FA TABLET GT SCH (20:51)
[2020-04-12] MEDS: OMEPRAZOLE 40MG GT SCH (05:53)
[2020-04-12 07:46] VITALS: BP 140/74
[2020-04-12] MEDS: levETIRAcetam 500 MG/5 ML LIQUID UDC GT SCH ×2 (08:23→21:43)
[2020-04-12] MEDS: AMIODARONE HCL 200 MG TABLET GT SCH (08:23)
[2020-04-12] MEDS: ASPIRIN 81 MG TAB.CHEW GT SCH (08:23)
[2020-04-12] MEDS: DIAZEPAM 5 MG TABLET GT SCH ×2 (08:24→21:44)
[2020-04-12] MEDS: PROTEIN SUPPLEMENT (PROSTAT) 30 ML LIQUID GT SCH ×2 (08:24→21:44)
[2020-04-12] MEDS: PHENOBARBITAL 30 MG/7.5 ML LIQUID UDC GT SCH ×2 (08:24→21:44)
[2020-04-12] MEDS: ASCORBIC ACID 500 MG TABLET PO SCH ×2 (08:24→21:44)
[2020-04-12] MEDS: COD LIVER OIL/ZINC OXIDE OINT 113 GM TUBE TP SCH ×2 (08:24→21:45)
[2020-04-12] MEDS: METOPROLOL TARTRATE 25 MG TABLET GT SCH ×2 (08:24→21:44)
[2020-04-12] MEDS: HYDROGEN PEROXIDE 3% 118 ML BOTTLE TOP SCH ×2 (08:55→21:00)
[2020-04-12 20:04] VITALS: BP 122/72
[2020-04-12] MEDS: MULTIVIT, IRON, MIN NO. 8, FA TABLET GT SCH (21:44)
[2020-04-12] MEDS: MAGNESIUM OXIDE 400 MG TABLET GT SCH (21:44)
[2020-04-13] MEDS: OMEPRAZOLE 40MG GT SCH (06:49)
[2020-04-13 07:48] VITALS: BP 126/70
[2020-04-13] MEDS: AMIODARONE HCL 200 MG TABLET GT SCH (08:01)
[2020-04-13] MEDS: levETIRAcetam 500 MG/5 ML LIQUID UDC GT SCH ×2 (08:01→20:56)
[2020-04-13] MEDS: ASPIRIN 81 MG TAB.CHEW GT SCH (08:01)
[2020-04-13] MEDS: ASCORBIC ACID 500 MG TABLET PO SCH ×2 (08:02→20:57)
[2020-04-13] MEDS: PROTEIN SUPPLEMENT (PROSTAT) 30 ML LIQUID GT SCH ×2 (08:02→20:57)
[2020-04-13] MEDS: PHENOBARBITAL 30 MG/7.5 ML LIQUID UDC GT SCH ×2 (08:02→20:57)
[2020-04-13] MEDS: METOPROLOL TARTRATE 25 MG TABLET GT SCH ×2 (08:02→20:56)
[2020-04-13] MEDS: COD LIVER OIL/ZINC OXIDE OINT 113 GM TUBE TP SCH ×2 (08:02→20:57)
[2020-04-13] MEDS: DIAZEPAM 5 MG TABLET GT SCH ×2 (08:02→20:57)
[2020-04-13] MEDS: HYDROGEN PEROXIDE 3% 118 ML BOTTLE TOP SCH ×2 (09:00→21:01)
[2020-04-13] MEDS: VITAL AF 1.2 1,000 ML LIQUID GT PRN (16:52)
[2020-04-13 20:14] VITALS: BP 130/75
[2020-04-13] MEDS: MAGNESIUM OXIDE 400 MG TABLET GT SCH (20:57)
[2020-04-13] MEDS: MULTIVIT, IRON, MIN NO. 8, FA TABLET GT SCH (20:57)
[2020-04-14] MEDS: OMEPRAZOLE 40MG GT SCH (06:41)
[2020-04-14 07:51] VITALS: BP 127/73
[2020-04-14] MEDS: ASPIRIN 81 MG TAB.CHEW GT SCH (08:12)
[2020-04-14] MEDS: METOPROLOL TARTRATE 25 MG TABLET GT SCH ×2 (08:13→21:37)
[2020-04-14] MEDS: levETIRAcetam 500 MG/5 ML LIQUID UDC GT SCH ×2 (08:13→21:36)
[2020-04-14] MEDS: AMIODARONE HCL 200 MG TABLET GT SCH (08:13)
[2020-04-14] MEDS: PROTEIN SUPPLEMENT (PROSTAT) 30 ML LIQUID GT SCH ×2 (08:14→21:38)
[2020-04-14] MEDS: PHENOBARBITAL 30 MG/7.5 ML LIQUID UDC GT SCH ×2 (08:14→21:37)
[2020-04-14] MEDS: ASCORBIC ACID 500 MG TABLET PO SCH ×2 (08:16→21:38)
[2020-04-14] MEDS: COD LIVER OIL/ZINC OXIDE OINT 113 GM TUBE TP SCH ×2 (08:16→21:38)
[2020-04-14] MEDS: DIAZEPAM 5 MG TABLET GT SCH ×2 (08:16→21:38)
[2020-04-14] MEDS: HYDROGEN PEROXIDE 3% 118 ML BOTTLE TOP SCH ×2 (09:00→21:05)
[2020-04-14] MEDS: VITAL AF 1.2 1,000 ML LIQUID GT PRN (14:29)
[2020-04-14 20:00] VITALS: BP 119/72
[2020-04-14] MEDS: MAGNESIUM OXIDE 400 MG TABLET GT SCH (21:37)
[2020-04-14] MEDS: MULTIVIT, IRON, MIN NO. 8, FA TABLET GT SCH (21:38)
[2020-04-15] MEDS: OMEPRAZOLE 40MG GT SCH (05:32)
[2020-04-15 07:48] VITALS: BP 131/74
[2020-04-15] MEDS: ASPIRIN 81 MG TAB.CHEW GT SCH (08:13)
[2020-04-15] MEDS: levETIRAcetam 500 MG/5 ML LIQUID UDC GT SCH ×2 (08:14→21:21)
[2020-04-15] MEDS: AMIODARONE HCL 200 MG TABLET GT SCH (08:14)
[2020-04-15] MEDS: METOPROLOL TARTRATE 25 MG TABLET GT SCH ×2 (08:15→21:23)
[2020-04-15] MEDS: PROTEIN SUPPLEMENT (PROSTAT) 30 ML LIQUID GT SCH ×2 (08:19→21:23)
[2020-04-15] MEDS: PHENOBARBITAL 30 MG/7.5 ML LIQUID UDC GT SCH ×2 (08:19→21:23)
[2020-04-15] MEDS: DIAZEPAM 5 MG TABLET GT SCH ×2 (08:19→21:24)
[2020-04-15] MEDS: COD LIVER OIL/ZINC OXIDE OINT 113 GM TUBE TP SCH ×2 (08:21→21:24)
[2020-04-15] MEDS: ASCORBIC ACID 500 MG TABLET PO SCH ×2 (08:21→21:24)
[2020-04-15] MEDS: HYDROGEN PEROXIDE 3% 118 ML BOTTLE TOP SCH ×2 (09:00→21:35)
[2020-04-15] MEDS: VITAL AF 1.2 1,000 ML LIQUID GT PRN (15:43)
[2020-04-15 20:22] VITALS: BP 114/67
[2020-04-15] MEDS: MAGNESIUM OXIDE 400 MG TABLET GT SCH (21:23)
[2020-04-15] MEDS: MULTIVIT, IRON, MIN NO. 8, FA TABLET GT SCH (21:24)
[2020-04-16] MEDS: OMEPRAZOLE 40MG GT SCH (05:39)
[2020-04-16 07:50] VITALS: BP 131/72
[2020-04-16] MEDS: ASPIRIN 81 MG TAB.CHEW GT SCH (08:56)
[2020-04-16] MEDS: levETIRAcetam 500 MG/5 ML LIQUID UDC GT SCH ×2 (08:56→21:39)
[2020-04-16] MEDS: ASCORBIC ACID 500 MG TABLET PO SCH ×2 (08:56→21:41)
[2020-04-16] MEDS: COD LIVER OIL/ZINC OXIDE OINT 113 GM TUBE TP SCH ×2 (08:56→21:41)
[2020-04-16] MEDS: DIAZEPAM 5 MG TABLET GT SCH ×2 (08:56→21:41)
[2020-04-16] MEDS: METOPROLOL TARTRATE 25 MG TABLET GT SCH ×2 (08:56→21:41)
[2020-04-16] MEDS: AMIODARONE HCL 200 MG TABLET GT SCH (08:56)
[2020-04-16] MEDS: PHENOBARBITAL 30 MG/7.5 ML LIQUID UDC GT SCH ×2 (08:56→21:41)
[2020-04-16] MEDS: PROTEIN SUPPLEMENT (PROSTAT) 30 ML LIQUID GT SCH ×2 (08:56→21:41)
[2020-04-16] MEDS: HYDROGEN PEROXIDE 3% 118 ML BOTTLE TOP SCH ×2 (09:09→21:17)
[2020-04-16 20:21] VITALS: BP 104/67
[2020-04-16] MEDS: MAGNESIUM OXIDE 400 MG TABLET GT SCH (21:41)
[2020-04-16] MEDS: MULTIVIT, IRON, MIN NO. 8, FA TABLET GT SCH (21:41)
[2020-04-17] MEDS: OMEPRAZOLE 40MG GT SCH (05:43)
[2020-04-17 08:00] VITALS: BP 88/53
[2020-04-17] MEDS: HYDROGEN PEROXIDE 3% 118 ML BOTTLE TOP SCH ×2 (08:51→21:23)
[2020-04-17] MEDS: NEOMY/BACITRAC/POLYMI OINT 28.35 GM TUBE TP SCH ×2 (09:00→21:23)
[2020-04-17] MEDS: PHENOBARBITAL 30 MG/7.5 ML LIQUID UDC GT SCH ×2 (09:00→21:23)
[2020-04-17] MEDS: AMIODARONE HCL 200 MG TABLET GT SCH (09:00)
[2020-04-17] MEDS: PROTEIN SUPPLEMENT (PROSTAT) 30 ML LIQUID GT SCH ×2 (09:00→21:23)
[2020-04-17] MEDS: ASPIRIN 81 MG TAB.CHEW GT SCH (09:00)
[2020-04-17] MEDS: levETIRAcetam 500 MG/5 ML LIQUID UDC GT SCH ×2 (09:00→21:17)
[2020-04-17] MEDS: METOPROLOL TARTRATE 25 MG TABLET GT SCH ×2 (09:00→21:00)
[2020-04-17] MEDS: DIAZEPAM 5 MG TABLET GT SCH ×2 (09:00→21:30)
[2020-04-17] MEDS: ASCORBIC ACID 500 MG TABLET PO SCH ×2 (09:00→21:24)
[2020-04-17] MEDS: COD LIVER OIL/ZINC OXIDE OINT 113 GM TUBE TP SCH ×2 (09:00→21:23)
[2020-04-17 20:25] VITALS: BP 100/62
[2020-04-17] MEDS: MULTIVIT, IRON, MIN NO. 8, FA TABLET GT SCH (21:23)
[2020-04-17] MEDS: MAGNESIUM OXIDE 400 MG TABLET GT SCH (21:26)
--- NOTE | 2020-04-17 23:01 | NUR ---
Seen and examined by RAMÍREZ Rashid with No new orders.
[2020-04-18] MEDS: ACETAMINOPHEN 650 MG/20 ML UDC- SA PATIENTS-PAIN ONLY GT PRN (01:24)
[2020-04-18] MEDS: OMEPRAZOLE 40MG GT SCH (05:06)
[2020-04-18 07:45] VITALS: BP 96/59
[2020-04-18] MEDS: METOPROLOL TARTRATE 25 MG TABLET GT SCH ×2 (09:00→20:54)
[2020-04-18] MEDS: HYDROGEN PEROXIDE 3% 118 ML BOTTLE TOP SCH ×2 (09:00→21:00)
[2020-04-18] MEDS: levETIRAcetam 500 MG/5 ML LIQUID UDC GT SCH ×2 (09:08→20:54)
[2020-04-18] MEDS: AMIODARONE HCL 200 MG TABLET GT SCH (09:08)
[2020-04-18] MEDS: ASPIRIN 81 MG TAB.CHEW GT SCH (09:08)
[2020-04-18] MEDS: DIAZEPAM 5 MG TABLET GT SCH ×2 (09:09→20:54)
[2020-04-18] MEDS: COD LIVER OIL/ZINC OXIDE OINT 113 GM TUBE TP SCH ×2 (09:09→20:54)
[2020-04-18] MEDS: PHENOBARBITAL 30 MG/7.5 ML LIQUID UDC GT SCH ×2 (09:09→20:54)
[2020-04-18] MEDS: PROTEIN SUPPLEMENT (PROSTAT) 30 ML LIQUID GT SCH ×2 (09:09→20:54)
[2020-04-18] MEDS: NEOMY/BACITRAC/POLYMI OINT 28.35 GM TUBE TP SCH ×2 (09:09→20:55)
[2020-04-18] MEDS: ASCORBIC ACID 500 MG TABLET PO SCH ×2 (09:09→20:54)
--- NOTE | 2020-04-18 11:19 | NUR ---
NEW ORDER CARRIED OUT FROM DR. CURRY AND PT'S FATHER WAS NOTIFIED WITH ADRYAN Liu.
[2020-04-18 20:31] VITALS: BP 111/71
[2020-04-18] MEDS: MULTIVIT, IRON, MIN NO. 8, FA TABLET GT SCH (20:54)
[2020-04-18] MEDS: MAGNESIUM OXIDE 400 MG TABLET GT SCH (20:54)
[2020-04-19] MEDS: OMEPRAZOLE 40MG GT SCH (05:34)
[2020-04-19 07:28] VITALS: BP 111/65
[2020-04-19] MEDS: METOPROLOL TARTRATE 25 MG TABLET GT SCH ×2 (09:00→21:48)
[2020-04-19] MEDS: AMIODARONE HCL 200 MG TABLET GT SCH (09:00)
[2020-04-19] MEDS: COD LIVER OIL/ZINC OXIDE OINT 113 GM TUBE TP SCH ×2 (09:00→21:49)
[2020-04-19] MEDS: NEOMY/BACITRAC/POLYMI OINT 28.35 GM TUBE TP SCH ×2 (09:00→21:49)
[2020-04-19] MEDS: ASPIRIN 81 MG TAB.CHEW GT SCH (09:00)
[2020-04-19] MEDS: levETIRAcetam 500 MG/5 ML LIQUID UDC GT SCH ×2 (09:00→21:46)
[2020-04-19] MEDS: DIAZEPAM 5 MG TABLET GT SCH ×2 (09:00→21:49)
[2020-04-19] MEDS: PHENOBARBITAL 30 MG/7.5 ML LIQUID UDC GT SCH ×2 (09:00→21:49)
[2020-04-19] MEDS: ASCORBIC ACID 500 MG TABLET PO SCH ×2 (09:00→21:49)
[2020-04-19] MEDS: HYDROGEN PEROXIDE 3% 118 ML BOTTLE TOP SCH ×2 (09:00→21:13)
[2020-04-19] MEDS: PROTEIN SUPPLEMENT (PROSTAT) 30 ML LIQUID GT SCH ×2 (09:00→21:49)
[2020-04-19] MEDS: HYDROGEN PEROXIDE 3% 118 ML BOTTLE TOP PRN (10:00)
[2020-04-19] MEDS: VITAL AF 1.2 1,000 ML LIQUID GT PRN (10:27)
--- NOTE | 2020-04-19 20:15 | NUR ---
PT RECEIVED ON CONTINUOUS VENT. TRACH CARE DONE. TRACH IN PLACED AND SECURED WITH TRACH TIE. BACK UP TRACH AND AMBU BAG AT BEDSIDE. BS MILD RHONCHI. SUCTION MODERATE AMOUNT THICK WHITE SECRETIONS. VENT CHECKED, ALARMS WORKING WELL AND AUDIBLE. NO DISTRESS NOTED AT THIS TIME. WILL CONTINUE TO MONITOR.
[2020-04-19 20:52] VITALS: BP 110/69
--- NOTE | 2020-04-19 21:00 | NUR ---
Garland Catheter plugged and reinserted with #[id number] and draining well to yellow colored urine with sediments noted.cont.to monitor
[2020-04-19] MEDS: MULTIVIT, IRON, MIN NO. 8, FA TABLET GT SCH (21:49)
[2020-04-19] MEDS: MAGNESIUM OXIDE 400 MG TABLET GT SCH (21:49)
[2020-04-20] MEDS: OMEPRAZOLE 40MG GT SCH (06:00)
[2020-04-20] MEDS: HYDROGEN PEROXIDE 3% 118 ML BOTTLE TOP SCH ×3 (07:13→20:12)
[2020-04-20 07:50] VITALS: BP 127/72
[2020-04-20] MEDS: ASPIRIN 81 MG TAB.CHEW GT SCH (08:46)
[2020-04-20] MEDS: AMIODARONE HCL 200 MG TABLET GT SCH (08:47)
[2020-04-20] MEDS: levETIRAcetam 500 MG/5 ML LIQUID UDC GT SCH ×2 (08:50→21:19)
[2020-04-20] MEDS: METOPROLOL TARTRATE 25 MG TABLET GT SCH ×2 (08:50→21:19)
[2020-04-20] MEDS: PHENOBARBITAL 30 MG/7.5 ML LIQUID UDC GT SCH ×2 (08:51→21:19)
[2020-04-20] MEDS: DIAZEPAM 5 MG TABLET GT SCH ×2 (08:53→21:19)
[2020-04-20] MEDS: PROTEIN SUPPLEMENT (PROSTAT) 30 ML LIQUID GT SCH ×2 (08:53→21:19)
[2020-04-20] MEDS: COD LIVER OIL/ZINC OXIDE OINT 113 GM TUBE TP SCH ×2 (08:54→21:19)
[2020-04-20] MEDS: ASCORBIC ACID 500 MG TABLET PO SCH ×2 (08:54→21:19)
[2020-04-20] MEDS: NEOMY/BACITRAC/POLYMI OINT 28.35 GM TUBE TP SCH ×2 (09:00→21:19)
[2020-04-20] MEDS: VITAL AF 1.2 1,000 ML LIQUID GT PRN (11:51)
[2020-04-20 20:45] VITALS: BP 126/65
[2020-04-20] MEDS: MAGNESIUM OXIDE 400 MG TABLET GT SCH (21:19)
[2020-04-20] MEDS: MULTIVIT, IRON, MIN NO. 8, FA TABLET GT SCH (21:19)
[2020-04-21] MEDS: OMEPRAZOLE 40MG GT SCH (05:12)
[2020-04-21] MEDS: VITAL AF 1.2 1,000 ML LIQUID GT PRN (05:13)
[2020-04-21 07:38] VITALS: BP 120/72
[2020-04-21] MEDS: ASPIRIN 81 MG TAB.CHEW GT SCH (08:26)
[2020-04-21] MEDS: AMIODARONE HCL 200 MG TABLET GT SCH (08:30)
[2020-04-21] MEDS: levETIRAcetam 500 MG/5 ML LIQUID UDC GT SCH ×2 (08:31→20:08)
[2020-04-21] MEDS: METOPROLOL TARTRATE 25 MG TABLET GT SCH ×2 (08:31→20:09)
[2020-04-21] MEDS: PROTEIN SUPPLEMENT (PROSTAT) 30 ML LIQUID GT SCH ×2 (08:34→20:09)
[2020-04-21] MEDS: DIAZEPAM 5 MG TABLET GT SCH ×2 (08:34→20:10)
[2020-04-21] MEDS: ASCORBIC ACID 500 MG TABLET PO SCH ×2 (08:34→20:10)
[2020-04-21] MEDS: PHENOBARBITAL 30 MG/7.5 ML LIQUID UDC GT SCH ×2 (08:34→20:09)
[2020-04-21] MEDS: COD LIVER OIL/ZINC OXIDE OINT 113 GM TUBE TP SCH ×2 (09:00→20:10)
[2020-04-21] MEDS: NEOMY/BACITRAC/POLYMI OINT 28.35 GM TUBE TP SCH ×2 (09:00→20:10)
--- NOTE | 2020-04-21 14:00 | NUR ---
Finding f/c draining with hematuria irrigated cath as ordered. F/c draining well continue to monitor closely. Charge nurse aware.
[2020-04-21] MEDS: HYDROGEN PEROXIDE 3% 118 ML BOTTLE TOP PRN (19:06)
[2020-04-21] MEDS: MULTIVIT, IRON, MIN NO. 8, FA TABLET GT SCH (20:09)
[2020-04-21] MEDS: MAGNESIUM OXIDE 400 MG TABLET GT SCH (20:09)
[2020-04-21 20:25] VITALS: BP 134/83
[2020-04-21] MEDS: HYDROGEN PEROXIDE 3% 118 ML BOTTLE TOP SCH (21:09)
[2020-04-22] MEDS: OMEPRAZOLE 40MG GT SCH (05:00)
[2020-04-22] MEDS: VITAL AF 1.2 1,000 ML LIQUID GT PRN (05:00)
[2020-04-22 07:38] VITALS: BP 117/69
[2020-04-22] MEDS: HYDROGEN PEROXIDE 3% 118 ML BOTTLE TOP SCH ×2 (08:53→21:00)
[2020-04-22] MEDS: NEOMY/BACITRAC/POLYMI OINT 28.35 GM TUBE TP SCH ×2 (09:00→20:52)
[2020-04-22] MEDS: ASPIRIN 81 MG TAB.CHEW GT SCH (09:07)
[2020-04-22] MEDS: AMIODARONE HCL 200 MG TABLET GT SCH (09:08)
[2020-04-22] MEDS: levETIRAcetam 500 MG/5 ML LIQUID UDC GT SCH ×2 (09:09→20:51)
[2020-04-22] MEDS: METOPROLOL TARTRATE 25 MG TABLET GT SCH ×2 (09:10→21:00)
[2020-04-22] MEDS: ASCORBIC ACID 500 MG TABLET PO SCH ×2 (09:12→20:52)
[2020-04-22] MEDS: COD LIVER OIL/ZINC OXIDE OINT 113 GM TUBE TP SCH ×2 (09:12→20:52)
[2020-04-22] MEDS: PHENOBARBITAL 30 MG/7.5 ML LIQUID UDC GT SCH ×2 (09:12→20:52)
[2020-04-22] MEDS: DIAZEPAM 5 MG TABLET GT SCH ×2 (09:12→20:52)
[2020-04-22] MEDS: PROTEIN SUPPLEMENT (PROSTAT) 30 ML LIQUID GT SCH ×2 (09:12→20:52)
--- NOTE | 2020-04-22 10:00 | NUR ---
F/C DRAINING CLEAR YELLOW URINE. CONTINUE MONITORING CLOSELY.
[2020-04-22 20:00] VITALS: BP 96/62
[2020-04-22] MEDS: MAGNESIUM OXIDE 400 MG TABLET GT SCH (20:52)
[2020-04-22] MEDS: MULTIVIT, IRON, MIN NO. 8, FA TABLET GT SCH (20:52)
--- NOTE | 2020-04-23 05:37 | NUR ---
PT ON CONT HT 50 VENT, TRACH PT ; SUCTIONED LIGHT PALE YELL TINGE SECRETIONS, TRACH CARE DONE, CHECK CUFF, ALL VENT ALARMS GOOD,NO SOB NOTED. Helena BROUSSARDP Addendum: 04/23/20 at 0540 by KSENIA MONTGOMERY RT Amended: Links added.
[2020-04-23] MEDS: OMEPRAZOLE 40MG GT SCH (05:50)
[2020-04-23] MEDS: METOPROLOL TARTRATE 25 MG TABLET GT SCH ×2 (09:00→21:32)
[2020-04-23] MEDS: PROTEIN SUPPLEMENT (PROSTAT) 30 ML LIQUID GT SCH ×2 (09:00→21:32)
[2020-04-23] MEDS: AMIODARONE HCL 200 MG TABLET GT SCH (09:00)
[2020-04-23] MEDS: DIAZEPAM 5 MG TABLET GT SCH ×2 (09:00→21:33)
[2020-04-23] MEDS: PHENOBARBITAL 30 MG/7.5 ML LIQUID UDC GT SCH ×2 (09:00→21:32)
[2020-04-23] MEDS: COD LIVER OIL/ZINC OXIDE OINT 113 GM TUBE TP SCH ×2 (09:00→21:33)
[2020-04-23] MEDS: ASPIRIN 81 MG TAB.CHEW GT SCH (09:00)
[2020-04-23] MEDS: levETIRAcetam 500 MG/5 ML LIQUID UDC GT SCH ×2 (09:00→21:32)
[2020-04-23] MEDS: ASCORBIC ACID 500 MG TABLET PO SCH ×2 (09:00→21:33)
[2020-04-23] MEDS: NEOMY/BACITRAC/POLYMI OINT 28.35 GM TUBE TP SCH ×2 (09:00→21:33)
[2020-04-23] MEDS: HYDROGEN PEROXIDE 3% 118 ML BOTTLE TOP SCH ×2 (09:35→21:26)
[2020-04-23 11:00] VITALS: BP 120/64
[2020-04-23 20:28] VITALS: BP 111/69
[2020-04-23] MEDS: MULTIVIT, IRON, MIN NO. 8, FA TABLET GT SCH (21:32)
[2020-04-23] MEDS: MAGNESIUM OXIDE 400 MG TABLET GT SCH (21:32)
--- NOTE | 2020-04-24 04:54 | NUR ---
PT ON CONT HT 50 VENT WITH [address]ACH [address] PLACE AND SECURED, WITH NO VENT CHANGES MADE, SUCTIONED LIGHT PALE YELL TINGE SECRETIONS, TRACH CARE DONE, CHECK CUFF , CHANGE HME AND BERRIOS, NO SOB NOTED, PT STABLE .Helena MONTGOMERY RCP Addendum: 04/24/20 at 0456 by KSENIA MONTGOMERY RT Amended: Links added.
[2020-04-24] MEDS: OMEPRAZOLE 40MG GT SCH (05:13)
[2020-04-24 07:44] VITALS: BP 110/69
[2020-04-24] MEDS: ASPIRIN 81 MG TAB.CHEW GT SCH (08:09)
[2020-04-24] MEDS: AMIODARONE HCL 200 MG TABLET GT SCH (08:09)
[2020-04-24] MEDS: levETIRAcetam 500 MG/5 ML LIQUID UDC GT SCH ×2 (08:09→20:44)
[2020-04-24] MEDS: PHENOBARBITAL 30 MG/7.5 ML LIQUID UDC GT SCH ×2 (08:12→20:51)
[2020-04-24] MEDS: METOPROLOL TARTRATE 25 MG TABLET GT SCH ×2 (08:12→20:44)
[2020-04-24] MEDS: PROTEIN SUPPLEMENT (PROSTAT) 30 ML LIQUID GT SCH ×2 (08:12→20:51)
[2020-04-24] MEDS: DIAZEPAM 5 MG TABLET GT SCH ×2 (08:12→20:51)
[2020-04-24] MEDS: COD LIVER OIL/ZINC OXIDE OINT 113 GM TUBE TP SCH ×3 (08:12→20:47)
[2020-04-24] MEDS: ASCORBIC ACID 500 MG TABLET PO SCH ×2 (08:12→20:47)
[2020-04-24] MEDS: NEOMY/BACITRAC/POLYMI OINT 28.35 GM TUBE TP SCH ×2 (08:13→20:47)
[2020-04-24] MEDS: HYDROGEN PEROXIDE 3% 118 ML BOTTLE TOP SCH ×2 (08:59→20:47)
[2020-04-24] MEDS ORDERED: COD LIVER OIL/ZINC OXIDE OINT 113 GM TUBE TP PRN (19:15)
[2020-04-24 20:19] VITALS: BP 116/72
[2020-04-24] MEDS: MULTIVIT, IRON, MIN NO. 8, FA TABLET GT SCH (20:46)
[2020-04-24] MEDS: MAGNESIUM OXIDE 400 MG TABLET GT SCH (20:46)
[2020-04-24] MEDS: VITAL AF 1.2 1,000 ML LIQUID GT PRN (23:25)
[2020-04-25] MEDS: OMEPRAZOLE 40MG GT SCH (05:08)
[2020-04-25 07:54] VITALS: BP 119/67
[2020-04-25] MEDS: HYDROGEN PEROXIDE 3% 118 ML BOTTLE TOP SCH ×2 (08:10→21:38)
[2020-04-25] MEDS: METOPROLOL TARTRATE 25 MG TABLET GT SCH ×2 (09:00→20:39)
[2020-04-25] MEDS: COD LIVER OIL/ZINC OXIDE OINT 113 GM TUBE TP SCH ×4 (09:00→20:40)
[2020-04-25] MEDS: AMIODARONE HCL 200 MG TABLET GT SCH (09:00)
[2020-04-25] MEDS: ASPIRIN 81 MG TAB.CHEW GT SCH (09:00)
[2020-04-25] MEDS: NEOMY/BACITRAC/POLYMI OINT 28.35 GM TUBE TP SCH ×2 (09:00→20:40)
[2020-04-25] MEDS: levETIRAcetam 500 MG/5 ML LIQUID UDC GT SCH ×2 (09:00→20:38)
[2020-04-25] MEDS: ASCORBIC ACID 500 MG TABLET PO SCH ×2 (09:00→20:39)
[2020-04-25] MEDS: DIAZEPAM 5 MG TABLET GT SCH ×2 (09:00→20:39)
[2020-04-25] MEDS: PROTEIN SUPPLEMENT (PROSTAT) 30 ML LIQUID GT SCH ×2 (09:00→20:39)
[2020-04-25] MEDS: PHENOBARBITAL 30 MG/7.5 ML LIQUID UDC GT SCH ×2 (09:00→20:39)
--- NOTE | 2020-04-25 19:40 | NUR ---
Patient received in stable respiratory condition on Cordero vent with current MD ordered vent settings. All alarms on and audible, Ambubag and spare trach at bedside. Airway is patent and secured. Suctioned PRN. Will continue to monitor.
[2020-04-25 20:08] VITALS: BP 121/78
[2020-04-25] MEDS: MULTIVIT, IRON, MIN NO. 8, FA TABLET GT SCH (20:39)
[2020-04-25] MEDS: MAGNESIUM OXIDE 400 MG TABLET GT SCH (20:39)
[2020-04-25] MEDS: VITAL AF 1.2 1,000 ML LIQUID GT PRN (23:46)
[2020-04-26] MEDS: OMEPRAZOLE 40MG GT SCH (05:05)
[2020-04-26 06:19] LABS: BASOPHILS % (AUTO) 0.6 % (0.0-2.0); EOSINOPHILS # (AUTO) 0.1 K/uL (0.0-0.7); EOSINOPHILS % (AUTO) 3.8 % (0.0-7.0); HEMATOCRIT 26.1 % (31.2-41.9); HEMOGLOBIN 9.1 g/dL (10.9-14.3); LYMPHOCYTES # (AUTO) 1.4 K/uL (20.0-40.0); LYMPHOCYTES % (AUTO) 37.2 % (20.5-51.5); MEAN CORPUSCULAR HEMOGLOBIN 29.9 uug (24.7-32.8); MEAN CORPUSCULAR HGB CONC 35 g/dL (32.3-35.6); MEAN CORPUSCULAR VOLUME 85.7 fL (75.5-95.3); MONOCYTES # (AUTO) 0.3 K/uL (2.0-10.0); NEUTROPHILS # (AUTO) 1.9 K/uL (1.8-8.9); NEUTROPHILS % (AUTO) 50.4 % (38.5-71.5); PLATELET COUNT (AUTO) 153 K/uL (179-408); RED BLOOD CELL COUNT(AUTO) 3.04 MIL/uL (3.63-4.92); WHITE BLOOD COUNT (AUTO) 3.8 K/uL (3.8-11.8)
[2020-04-26 06:32] LABS: BILIRUBIN,TOTAL 0.2 mg/dL (0.2-1.0); CREATININE 0.5 mg/dL (0.6-1.3); MAGNESIUM 1.9 mg/dL (1.8-2.4); PHOSPHOROUS 3.6 mg/dL (2.5-4.9); POTASSIUM 4.1 mmol/L (3.5-5.1); TOTAL PROTEIN, SERUM 6.9 g/dL (6.4-8.2)
[2020-04-26 06:36] LABS: THYROID STIMULATING HORMONE 1.925 mIU/mL (0.358-3.740)
[2020-04-26 08:00] VITALS: BP 100/62
[2020-04-26] MEDS: HYDROGEN PEROXIDE 3% 118 ML BOTTLE TOP SCH ×2 (08:33→18:53)
[2020-04-26] MEDS: PROTEIN SUPPLEMENT (PROSTAT) 30 ML LIQUID GT SCH ×2 (09:03→20:29)
[2020-04-26] MEDS: levETIRAcetam 500 MG/5 ML LIQUID UDC GT SCH ×2 (09:03→20:28)
[2020-04-26] MEDS: METOPROLOL TARTRATE 25 MG TABLET GT SCH ×2 (09:03→20:28)
[2020-04-26] MEDS: PHENOBARBITAL 30 MG/7.5 ML LIQUID UDC GT SCH ×2 (09:03→20:29)
[2020-04-26] MEDS: AMIODARONE HCL 200 MG TABLET GT SCH (09:03)
[2020-04-26] MEDS: DIAZEPAM 5 MG TABLET GT SCH ×2 (09:03→20:29)
[2020-04-26] MEDS: ASPIRIN 81 MG TAB.CHEW GT SCH (09:03)
[2020-04-26] MEDS: ASCORBIC ACID 500 MG TABLET PO SCH ×2 (09:04→20:29)
[2020-04-26] MEDS: COD LIVER OIL/ZINC OXIDE OINT 113 GM TUBE TP SCH ×4 (09:04→20:30)
[2020-04-26] MEDS: NEOMY/BACITRAC/POLYMI OINT 28.35 GM TUBE TP SCH ×2 (09:04→20:30)
--- NOTE | 2020-04-26 16:37 | NUR ---
BILL spoke with Barbara at Dr. Peace's office, , and scheduled patient's annual optometry appointment for 05/12/2020.
[2020-04-26] MEDS: MAGNESIUM OXIDE 400 MG TABLET GT SCH (20:29)
[2020-04-26] MEDS: MULTIVIT, IRON, MIN NO. 8, FA TABLET GT SCH (20:29)
[2020-04-26 20:44] VITALS: BP 130/48
[2020-04-27] MEDS: OMEPRAZOLE 40MG GT SCH (05:44)
[2020-04-27 08:00] VITALS: BP 99/64
[2020-04-27] MEDS: ASPIRIN 81 MG TAB.CHEW GT SCH (08:50)
[2020-04-27] MEDS: AMIODARONE HCL 200 MG TABLET GT SCH (09:00)
[2020-04-27] MEDS: METOPROLOL TARTRATE 25 MG TABLET GT SCH ×2 (09:00→21:11)
[2020-04-27] MEDS: levETIRAcetam 500 MG/5 ML LIQUID UDC GT SCH ×2 (09:13→20:48)
[2020-04-27] MEDS: PROTEIN SUPPLEMENT (PROSTAT) 30 ML LIQUID GT SCH ×2 (09:17→20:51)
[2020-04-27] MEDS: COD LIVER OIL/ZINC OXIDE OINT 113 GM TUBE TP SCH ×4 (09:18→20:52)
[2020-04-27] MEDS: ASCORBIC ACID 500 MG TABLET PO SCH ×2 (09:18→20:52)
[2020-04-27] MEDS: NEOMY/BACITRAC/POLYMI OINT 28.35 GM TUBE TP SCH ×2 (09:19→20:52)
[2020-04-27] MEDS: DIAZEPAM 5 MG TABLET GT SCH ×2 (09:28→20:52)
[2020-04-27] MEDS: PHENOBARBITAL 30 MG/7.5 ML LIQUID UDC GT SCH ×2 (09:28→20:51)
[2020-04-27] MEDS: HYDROGEN PEROXIDE 3% 118 ML BOTTLE TOP SCH ×2 (09:50→21:55)
[2020-04-27 20:00] VITALS: BP 148/90
[2020-04-27] MEDS: MAGNESIUM OXIDE 400 MG TABLET GT SCH (20:51)
[2020-04-27] MEDS: MULTIVIT, IRON, MIN NO. 8, FA TABLET GT SCH (20:52)
[2020-04-28] MEDS: VITAL AF 1.2 1,000 ML LIQUID GT PRN ×2 (00:05→22:50)
[2020-04-28] MEDS: OMEPRAZOLE 40MG GT SCH (06:18)
[2020-04-28] MEDS: HYDROGEN PEROXIDE 3% 118 ML BOTTLE TOP SCH ×2 (07:37→20:41)
[2020-04-28 07:41] VITALS: BP 118/72
[2020-04-28] MEDS: levETIRAcetam 500 MG/5 ML LIQUID UDC GT SCH ×3 (08:51→20:38)
[2020-04-28] MEDS: AMIODARONE HCL 200 MG TABLET GT SCH ×2 (08:51→09:23)
[2020-04-28] MEDS: METOPROLOL TARTRATE 25 MG TABLET GT SCH ×3 (08:52→20:39)
[2020-04-28] MEDS: PROTEIN SUPPLEMENT (PROSTAT) 30 ML LIQUID GT SCH ×3 (08:53→20:39)
[2020-04-28] MEDS: COD LIVER OIL/ZINC OXIDE OINT 113 GM TUBE TP SCH ×6 (08:53→20:41)
[2020-04-28] MEDS: DIAZEPAM 5 MG TABLET GT SCH ×3 (08:53→20:39)
[2020-04-28] MEDS: PHENOBARBITAL 30 MG/7.5 ML LIQUID UDC GT SCH ×3 (08:53→20:39)
[2020-04-28] MEDS: ASCORBIC ACID 500 MG TABLET PO SCH ×3 (08:53→20:41)
[2020-04-28] MEDS: NEOMY/BACITRAC/POLYMI OINT 28.35 GM TUBE TP SCH ×3 (08:53→20:42)
[2020-04-28] MEDS: ASPIRIN 81 MG TAB.CHEW GT SCH (09:23)
--- NOTE | 2020-04-28 16:00 | NUR ---
SEEN BY DR. TOLBERT AND WITH NNO.
[2020-04-28 20:00] VITALS: BP 106/61
[2020-04-28] MEDS: MAGNESIUM OXIDE 400 MG TABLET GT SCH (20:39)
[2020-04-28] MEDS: MULTIVIT, IRON, MIN NO. 8, FA TABLET GT SCH (20:39)
--- NOTE | 2020-04-28 22:40 | NUR ---
pt moved to room 426 with respiratory therapist and nurse, made pt comfortable.
[2020-04-29] MEDS: OMEPRAZOLE 40MG GT SCH (05:23)
[2020-04-29] MEDS: HYDROGEN PEROXIDE 3% 118 ML BOTTLE TOP SCH ×2 (07:31→19:04)
[2020-04-29] MEDS: ASPIRIN 81 MG TAB.CHEW GT SCH (08:16)
[2020-04-29] MEDS: levETIRAcetam 500 MG/5 ML LIQUID UDC GT SCH ×2 (08:16→20:28)
[2020-04-29] MEDS: AMIODARONE HCL 200 MG TABLET GT SCH (08:16)
[2020-04-29] MEDS: COD LIVER OIL/ZINC OXIDE OINT 113 GM TUBE TP SCH ×4 (08:17→20:29)
[2020-04-29] MEDS: DIAZEPAM 5 MG TABLET GT SCH ×2 (08:17→20:28)
[2020-04-29] MEDS: PHENOBARBITAL 30 MG/7.5 ML LIQUID UDC GT SCH ×2 (08:17→20:28)
[2020-04-29] MEDS: PROTEIN SUPPLEMENT (PROSTAT) 30 ML LIQUID GT SCH ×2 (08:17→20:28)
[2020-04-29] MEDS: METOPROLOL TARTRATE 25 MG TABLET GT SCH ×2 (08:17→20:28)
[2020-04-29] MEDS: NEOMY/BACITRAC/POLYMI OINT 28.35 GM TUBE TP SCH ×2 (08:17→20:29)
[2020-04-29] MEDS: ASCORBIC ACID 500 MG TABLET PO SCH ×2 (08:17→20:29)
[2020-04-29 20:00] VITALS: BP 155/76
[2020-04-29] MEDS: MULTIVIT, IRON, MIN NO. 8, FA TABLET GT SCH (20:28)
[2020-04-29] MEDS: MAGNESIUM OXIDE 400 MG TABLET GT SCH (20:28)
[2020-04-29] MEDS: VITAL AF 1.2 1,000 ML LIQUID GT PRN (22:22)
[2020-04-30] MEDS: OMEPRAZOLE 40MG GT SCH (05:10)
[2020-04-30] MEDS: HYDROGEN PEROXIDE 3% 118 ML BOTTLE TOP SCH ×2 (07:39→21:45)
[2020-04-30 07:50] VITALS: BP 131/72
[2020-04-30] MEDS: ASPIRIN 81 MG TAB.CHEW GT SCH (08:23)
[2020-04-30] MEDS: levETIRAcetam 500 MG/5 ML LIQUID UDC GT SCH ×2 (08:23→21:01)
[2020-04-30] MEDS: AMIODARONE HCL 200 MG TABLET GT SCH (08:23)
[2020-04-30] MEDS: DIAZEPAM 5 MG TABLET GT SCH ×2 (08:24→21:01)
[2020-04-30] MEDS: METOPROLOL TARTRATE 25 MG TABLET GT SCH ×2 (08:24→21:01)
[2020-04-30] MEDS: PROTEIN SUPPLEMENT (PROSTAT) 30 ML LIQUID GT SCH ×2 (08:24→21:01)
[2020-04-30] MEDS: PHENOBARBITAL 30 MG/7.5 ML LIQUID UDC GT SCH ×2 (08:24→21:01)
[2020-04-30] MEDS: ASCORBIC ACID 500 MG TABLET PO SCH ×2 (08:24→21:01)
[2020-04-30] MEDS: COD LIVER OIL/ZINC OXIDE OINT 113 GM TUBE TP SCH ×4 (08:25→21:01)
[2020-04-30] MEDS: NEOMY/BACITRAC/POLYMI OINT 28.35 GM TUBE TP SCH ×2 (08:25→21:01)
[2020-04-30 20:00] VITALS: BP 143/88
[2020-04-30] MEDS: MAGNESIUM OXIDE 400 MG TABLET GT SCH (21:01)
[2020-04-30] MEDS: MULTIVIT, IRON, MIN NO. 8, FA TABLET GT SCH (21:01)
[2020-05-01] MEDS: OMEPRAZOLE 40MG GT SCH (05:28)
[2020-05-01] MEDS: HYDROGEN PEROXIDE 3% 118 ML BOTTLE TOP SCH ×2 (08:08→21:00)
[2020-05-01] MEDS: ASPIRIN 81 MG TAB.CHEW GT SCH (09:00)
[2020-05-01] MEDS: DIAZEPAM 5 MG TABLET GT SCH ×2 (10:00→21:12)
[2020-05-01] MEDS: ASCORBIC ACID 500 MG TABLET PO SCH ×2 (10:00→21:12)
[2020-05-01] MEDS: PROTEIN SUPPLEMENT (PROSTAT) 30 ML LIQUID GT SCH ×2 (10:00→21:12)
[2020-05-01] MEDS: PHENOBARBITAL 30 MG/7.5 ML LIQUID UDC GT SCH ×2 (10:00→21:06)
[2020-05-01] MEDS: AMIODARONE HCL 200 MG TABLET GT SCH (10:00)
[2020-05-01] MEDS: COD LIVER OIL/ZINC OXIDE OINT 113 GM TUBE TP SCH ×4 (10:00→21:12)
[2020-05-01] MEDS: METOPROLOL TARTRATE 25 MG TABLET GT SCH ×2 (10:00→21:00)
[2020-05-01] MEDS: NEOMY/BACITRAC/POLYMI OINT 28.35 GM TUBE TP SCH ×2 (10:00→21:12)
[2020-05-01] MEDS: levETIRAcetam 500 MG/5 ML LIQUID UDC GT SCH ×2 (10:00→21:10)
[2020-05-01 20:08] VITALS: BP 104/64
[2020-05-01] MEDS: MAGNESIUM OXIDE 400 MG TABLET GT SCH (21:11)
[2020-05-01] MEDS: MULTIVIT, IRON, MIN NO. 8, FA TABLET GT SCH (21:12)
[2020-05-02] MEDS: VITAL AF 1.2 1,000 ML LIQUID GT PRN (03:36)
[2020-05-02] MEDS: OMEPRAZOLE 40MG GT SCH (05:56)
[2020-05-02 07:26] VITALS: BP 123/77
[2020-05-02] MEDS: HYDROGEN PEROXIDE 3% 118 ML BOTTLE TOP SCH ×2 (08:21→18:59)
[2020-05-02] MEDS: ASPIRIN 81 MG TAB.CHEW GT SCH (09:21)
[2020-05-02] MEDS: AMIODARONE HCL 200 MG TABLET GT SCH (09:21)
[2020-05-02] MEDS: levETIRAcetam 500 MG/5 ML LIQUID UDC GT SCH ×2 (09:21→20:52)
[2020-05-02] MEDS: PHENOBARBITAL 30 MG/7.5 ML LIQUID UDC GT SCH ×2 (09:22→20:53)
[2020-05-02] MEDS: PROTEIN SUPPLEMENT (PROSTAT) 30 ML LIQUID GT SCH ×2 (09:22→20:53)
[2020-05-02] MEDS: METOPROLOL TARTRATE 25 MG TABLET GT SCH ×2 (09:22→20:53)
[2020-05-02] MEDS: ASCORBIC ACID 500 MG TABLET PO SCH ×2 (09:23→20:53)
[2020-05-02] MEDS: DIAZEPAM 5 MG TABLET GT SCH ×2 (09:23→20:53)
[2020-05-02] MEDS: COD LIVER OIL/ZINC OXIDE OINT 113 GM TUBE TP SCH ×4 (09:23→20:53)
[2020-05-02] MEDS: NEOMY/BACITRAC/POLYMI OINT 28.35 GM TUBE TP SCH ×2 (09:23→20:53)
[2020-05-02 20:05] VITALS: BP 118/77
[2020-05-02] MEDS: MULTIVIT, IRON, MIN NO. 8, FA TABLET GT SCH (20:53)
[2020-05-02] MEDS: MAGNESIUM OXIDE 400 MG TABLET GT SCH (20:53)
[2020-05-03] MEDS: VITAL AF 1.2 1,000 ML LIQUID GT PRN (01:58)
[2020-05-03] MEDS: OMEPRAZOLE 40MG GT SCH (05:41)
[2020-05-03 07:10] VITALS: BP 106/69
[2020-05-03] MEDS: HYDROGEN PEROXIDE 3% 118 ML BOTTLE TOP SCH ×2 (09:00→21:55)
[2020-05-03] MEDS: ASPIRIN 81 MG TAB.CHEW GT SCH (09:52)
[2020-05-03] MEDS: ASCORBIC ACID 500 MG TABLET PO SCH ×2 (09:53→20:39)
[2020-05-03] MEDS: NEOMY/BACITRAC/POLYMI OINT 28.35 GM TUBE TP SCH ×2 (09:53→20:39)
[2020-05-03] MEDS: PROTEIN SUPPLEMENT (PROSTAT) 30 ML LIQUID GT SCH ×2 (09:53→20:39)
[2020-05-03] MEDS: levETIRAcetam 500 MG/5 ML LIQUID UDC GT SCH ×2 (09:53→20:37)
[2020-05-03] MEDS: AMIODARONE HCL 200 MG TABLET GT SCH (09:53)
[2020-05-03] MEDS: METOPROLOL TARTRATE 25 MG TABLET GT SCH ×2 (09:53→20:38)
[2020-05-03] MEDS: DIAZEPAM 5 MG TABLET GT SCH ×2 (09:53→20:39)
[2020-05-03] MEDS: PHENOBARBITAL 30 MG/7.5 ML LIQUID UDC GT SCH ×2 (09:53→20:39)
[2020-05-03] MEDS: COD LIVER OIL/ZINC OXIDE OINT 113 GM TUBE TP SCH ×4 (09:53→20:39)
--- NOTE | 2020-05-03 16:29 | NUR ---
INTERDISCIPLINARY PLAN OF CARE CONFERENCE was held today. Patient's father does not participate in the IDT meetings. Dr. Lora and the Interdisciplinary Team reviewed the current plan of care in detail. RN reported on patient's medical condition, current antibiotic treatments, and findings of recent labs. See RN IDT conference notes. No major changes in medical condition were reported by nursing or by other disciplines. See all other disciplines IDT notes and physician's progress notes for additional details.
[2020-05-03 20:30] VITALS: BP 116/71
[2020-05-03] MEDS: MULTIVIT, IRON, MIN NO. 8, FA TABLET GT SCH (20:39)
[2020-05-03] MEDS: MAGNESIUM OXIDE 400 MG TABLET GT SCH (20:39)
--- NOTE | 2020-05-03 23:58 | NUR ---
PT ON CONT HT 50 VENT WITH TRACH IN PLACE AND SECURED, WITH SAME CURRENT VENT SETTINGS, SUCTIONED VERY LIGHT PALE YELL TINGE SECRETIONS, TRACH CARE DONE, ALL VENT ALARMS GOOD, NO VENT CHANGES MADE, CHECK CUFF, CHANGE HME.Helena MONTGOMERY RCP Addendum: 05/03/20 at 2354 by KSENIA MONTGOMERY RT Amended: Links added.
[2020-05-04] MEDS: OMEPRAZOLE 40MG GT SCH (05:34)
[2020-05-04] MEDS: HYDROGEN PEROXIDE 3% 118 ML BOTTLE TOP SCH ×2 (08:28→19:15)
[2020-05-04] MEDS: ASPIRIN 81 MG TAB.CHEW GT SCH (09:11)
[2020-05-04] MEDS: levETIRAcetam 500 MG/5 ML LIQUID UDC GT SCH ×2 (09:12→20:20)
[2020-05-04] MEDS: AMIODARONE HCL 200 MG TABLET GT SCH (09:12)
[2020-05-04] MEDS: METOPROLOL TARTRATE 25 MG TABLET GT SCH ×2 (09:16→20:21)
[2020-05-04] MEDS: ASCORBIC ACID 500 MG TABLET PO SCH ×2 (09:16→20:16)
[2020-05-04] MEDS: DIAZEPAM 5 MG TABLET GT SCH ×2 (09:16→20:14)
[2020-05-04] MEDS: PROTEIN SUPPLEMENT (PROSTAT) 30 ML LIQUID GT SCH ×2 (09:16→20:15)
[2020-05-04] MEDS: NEOMY/BACITRAC/POLYMI OINT 28.35 GM TUBE TP SCH ×2 (09:16→20:16)
[2020-05-04] MEDS: COD LIVER OIL/ZINC OXIDE OINT 113 GM TUBE TP SCH ×4 (09:16→20:16)
[2020-05-04] MEDS: PHENOBARBITAL 30 MG/7.5 ML LIQUID UDC GT SCH ×2 (09:16→20:15)
[2020-05-04] MEDS: VITAL AF 1.2 1,000 ML LIQUID GT PRN ×2 (18:36)
[2020-05-04] MEDS: MULTIVIT, IRON, MIN NO. 8, FA TABLET GT SCH (20:15)
[2020-05-04] MEDS: MAGNESIUM OXIDE 400 MG TABLET GT SCH (20:15)
[2020-05-04 22:41] VITALS: BP 115/58
[2020-05-05] MEDS: OMEPRAZOLE 40MG GT SCH (05:29)
[2020-05-05 07:52] VITALS: BP 106/69
[2020-05-05] MEDS: METOPROLOL TARTRATE 25 MG TABLET GT SCH ×2 (08:46→21:12)
[2020-05-05] MEDS: levETIRAcetam 500 MG/5 ML LIQUID UDC GT SCH ×2 (08:46→21:09)
[2020-05-05] MEDS: AMIODARONE HCL 200 MG TABLET GT SCH (08:46)
[2020-05-05] MEDS: DIAZEPAM 5 MG TABLET GT SCH ×2 (08:47→21:14)
[2020-05-05] MEDS: PHENOBARBITAL 30 MG/7.5 ML LIQUID UDC GT SCH ×2 (08:47→21:13)
[2020-05-05] MEDS: PROTEIN SUPPLEMENT (PROSTAT) 30 ML LIQUID GT SCH ×2 (08:47→21:13)
[2020-05-05] MEDS: ASCORBIC ACID 500 MG TABLET PO SCH ×2 (08:47→21:14)
[2020-05-05] MEDS: COD LIVER OIL/ZINC OXIDE OINT 113 GM TUBE TP SCH ×4 (08:48→21:14)
[2020-05-05] MEDS: NEOMY/BACITRAC/POLYMI OINT 28.35 GM TUBE TP SCH ×2 (08:48→21:14)
[2020-05-05] MEDS: ASPIRIN 81 MG TAB.CHEW GT SCH (09:00)
[2020-05-05] MEDS: HYDROGEN PEROXIDE 3% 118 ML BOTTLE TOP SCH ×2 (09:29→19:00)
[2020-05-05] MEDS: MULTIVIT, IRON, MIN NO. 8, FA TABLET GT SCH (21:13)
[2020-05-05] MEDS: MAGNESIUM OXIDE 400 MG TABLET GT SCH (21:13)
[2020-05-05 22:54] VITALS: BP 120/79
[2020-05-06] MEDS: VITAL AF 1.2 1,000 ML LIQUID GT PRN ×2 (03:00→22:50)
[2020-05-06] MEDS: OMEPRAZOLE 40MG GT SCH (05:47)
[2020-05-06 07:36] VITALS: BP 103/49
[2020-05-06] MEDS: ASPIRIN 81 MG TAB.CHEW GT SCH (09:32)
[2020-05-06] MEDS: levETIRAcetam 500 MG/5 ML LIQUID UDC GT SCH ×2 (09:33→20:54)
[2020-05-06] MEDS: PHENOBARBITAL 30 MG/7.5 ML LIQUID UDC GT SCH ×2 (09:34→20:54)
[2020-05-06] MEDS: AMIODARONE HCL 200 MG TABLET GT SCH (09:34)
[2020-05-06] MEDS: METOPROLOL TARTRATE 25 MG TABLET GT SCH ×2 (09:34→20:54)
[2020-05-06] MEDS: PROTEIN SUPPLEMENT (PROSTAT) 30 ML LIQUID GT SCH ×2 (09:35→20:54)
[2020-05-06] MEDS: DIAZEPAM 5 MG TABLET GT SCH ×2 (09:35→20:54)
[2020-05-06] MEDS: ASCORBIC ACID 500 MG TABLET PO SCH ×2 (09:35→20:54)
[2020-05-06] MEDS: COD LIVER OIL/ZINC OXIDE OINT 113 GM TUBE TP SCH ×4 (09:36→20:54)
[2020-05-06] MEDS: NEOMY/BACITRAC/POLYMI OINT 28.35 GM TUBE TP SCH ×2 (09:36→20:54)
[2020-05-06] MEDS: HYDROGEN PEROXIDE 3% 118 ML BOTTLE TOP SCH ×2 (09:52→21:21)
[2020-05-06] MEDS: MAGNESIUM OXIDE 400 MG TABLET GT SCH (20:54)
[2020-05-06] MEDS: MULTIVIT, IRON, MIN NO. 8, FA TABLET GT SCH (20:54)
[2020-05-06 22:35] VITALS: BP 121/64
[2020-05-07] MEDS: OMEPRAZOLE 40MG GT SCH (05:37)
[2020-05-07 07:56] VITALS: BP 119/63
[2020-05-07] MEDS: AMIODARONE HCL 200 MG TABLET GT SCH (08:43)
[2020-05-07] MEDS: ASPIRIN 81 MG TAB.CHEW GT SCH (08:43)
[2020-05-07] MEDS: DIAZEPAM 5 MG TABLET GT SCH ×2 (08:44→20:55)
[2020-05-07] MEDS: METOPROLOL TARTRATE 25 MG TABLET GT SCH ×2 (08:44→20:54)
[2020-05-07] MEDS: levETIRAcetam 500 MG/5 ML LIQUID UDC GT SCH ×2 (08:44→20:54)
[2020-05-07] MEDS: COD LIVER OIL/ZINC OXIDE OINT 113 GM TUBE TP SCH ×4 (08:44→20:55)
[2020-05-07] MEDS: PROTEIN SUPPLEMENT (PROSTAT) 30 ML LIQUID GT SCH ×2 (08:44→20:54)
[2020-05-07] MEDS: PHENOBARBITAL 30 MG/7.5 ML LIQUID UDC GT SCH ×2 (08:44→20:54)
[2020-05-07] MEDS: ASCORBIC ACID 500 MG TABLET PO SCH ×2 (08:44→20:55)
[2020-05-07] MEDS: NEOMY/BACITRAC/POLYMI OINT 28.35 GM TUBE TP SCH ×2 (08:45→20:55)
[2020-05-07] MEDS: HYDROGEN PEROXIDE 3% 118 ML BOTTLE TOP SCH ×2 (09:00→21:26)
[2020-05-07] MEDS: VITAL AF 1.2 1,000 ML LIQUID GT PRN (17:56)
[2020-05-07] MEDS: MULTIVIT, IRON, MIN NO. 8, FA TABLET GT SCH (20:54)
[2020-05-07] MEDS: MAGNESIUM OXIDE 400 MG TABLET GT SCH (20:54)
[2020-05-07 22:51] VITALS: BP 113/83
--- NOTE | 2020-05-07 23:32 | NUR ---
Received pt on HT-50 ventilator with the following settings of AC-14, Vt-500, PEEP+5, FIO2-30%, trached with Shiley#8 DCT trach, which is in the place and secure. No s/s of respiratory distress noted. Airway care done, pt responded to physical stimuli. Resus. bag and back up trach at bedside. Vent and alarms checked and reset.
[2020-05-08] MEDS: OMEPRAZOLE 40MG GT SCH (05:22)
[2020-05-08 07:46] VITALS: BP 97/56
[2020-05-08] MEDS: METOPROLOL TARTRATE 25 MG TABLET GT SCH ×2 (09:00→20:46)
[2020-05-08] MEDS: ASPIRIN 81 MG TAB.CHEW GT SCH (09:08)
[2020-05-08] MEDS: AMIODARONE HCL 200 MG TABLET GT SCH (09:13)
[2020-05-08] MEDS: levETIRAcetam 500 MG/5 ML LIQUID UDC GT SCH ×2 (09:14→20:46)
[2020-05-08] MEDS: COD LIVER OIL/ZINC OXIDE OINT 113 GM TUBE TP SCH ×4 (09:15→20:46)
[2020-05-08] MEDS: PHENOBARBITAL 30 MG/7.5 ML LIQUID UDC GT SCH ×2 (09:15→20:46)
[2020-05-08] MEDS: ASCORBIC ACID 500 MG TABLET PO SCH ×2 (09:15→20:46)
[2020-05-08] MEDS: DIAZEPAM 5 MG TABLET GT SCH ×2 (09:15→20:46)
[2020-05-08] MEDS: PROTEIN SUPPLEMENT (PROSTAT) 30 ML LIQUID GT SCH ×2 (09:15→20:46)
[2020-05-08] MEDS: HYDROGEN PEROXIDE 3% 118 ML BOTTLE TOP SCH ×2 (10:50→21:01)
[2020-05-08] MEDS: MAGNESIUM OXIDE 400 MG TABLET GT SCH (20:46)
[2020-05-08] MEDS: MULTIVIT, IRON, MIN NO. 8, FA TABLET GT SCH (20:46)
[2020-05-08 22:52] VITALS: BP 121/77
[2020-05-09] MEDS: OMEPRAZOLE 40MG GT SCH (05:03)
[2020-05-09 07:52] LABS: BASOPHILS % (AUTO) 0.5 % (0.0-2.0); EOSINOPHILS # (AUTO) 0.1 K/uL (0.0-0.7); EOSINOPHILS % (AUTO) 3.2 % (0.0-7.0); HEMATOCRIT 26.8 % (31.2-41.9); HEMOGLOBIN 9.4 g/dL (10.9-14.3); LYMPHOCYTES # (AUTO) 1.2 K/uL (20.0-40.0); LYMPHOCYTES % (AUTO) 31.8 % (20.5-51.5); MEAN CORPUSCULAR HEMOGLOBIN 29.9 uug (24.7-32.8); MEAN CORPUSCULAR HGB CONC 35 g/dL (32.3-35.6); MEAN CORPUSCULAR VOLUME 85.7 fL (75.5-95.3); MONOCYTES # (AUTO) 0.4 K/uL (2.0-10.0); MONOCYTES % (AUTO) 9.7 % (0.0-11.0); NEUTROPHILS % (AUTO) 54.8 % (38.5-71.5); PLATELET COUNT (AUTO) 163 K/uL (179-408); RED BLOOD CELL COUNT(AUTO) 3.13 MIL/uL (3.63-4.92); WHITE BLOOD COUNT (AUTO) 3.7 K/uL (3.8-11.8)
[2020-05-09 08:09] LABS: BILIRUBIN,TOTAL 0.2 mg/dL (0.2-1.0); CREATININE 0.5 mg/dL (0.6-1.3); PHENOBARBITAL 38.1 ug/mL (15.0-39.0); POTASSIUM 3.9 mmol/L (3.5-5.1); TOTAL PROTEIN, SERUM 7.1 g/dL (6.4-8.2)
[2020-05-09 08:16] VITALS: BP 136/73
[2020-05-09] MEDS: AMIODARONE HCL 200 MG TABLET GT SCH (09:15)
[2020-05-09] MEDS: ASCORBIC ACID 500 MG TABLET PO SCH ×2 (09:15→21:46)
[2020-05-09] MEDS: DIAZEPAM 5 MG TABLET GT SCH ×2 (09:15→21:55)
[2020-05-09] MEDS: ASPIRIN 81 MG TAB.CHEW GT SCH (09:15)
[2020-05-09] MEDS: COD LIVER OIL/ZINC OXIDE OINT 113 GM TUBE TP SCH ×4 (09:15→21:46)
[2020-05-09] MEDS: levETIRAcetam 500 MG/5 ML LIQUID UDC GT SCH ×2 (09:15→21:44)
[2020-05-09] MEDS: METOPROLOL TARTRATE 25 MG TABLET GT SCH ×2 (09:15→21:45)
[2020-05-09] MEDS: PHENOBARBITAL 30 MG/7.5 ML LIQUID UDC GT SCH ×2 (09:15→21:55)
[2020-05-09] MEDS: PROTEIN SUPPLEMENT (PROSTAT) 30 ML LIQUID GT SCH ×2 (09:15→21:45)
[2020-05-09] MEDS: HYDROGEN PEROXIDE 3% 118 ML BOTTLE TOP SCH ×2 (09:22→21:46)
[2020-05-09 20:45] VITALS: BP 130/74
[2020-05-09] MEDS: MULTIVIT, IRON, MIN NO. 8, FA TABLET GT SCH (21:45)
[2020-05-09] MEDS: MAGNESIUM OXIDE 400 MG TABLET GT SCH (21:45)
[2020-05-10] MEDS: OMEPRAZOLE 40MG GT SCH (05:13)
[2020-05-10 08:23] VITALS: BP 121/70
[2020-05-10] MEDS: PROTEIN SUPPLEMENT (PROSTAT) 30 ML LIQUID GT SCH ×2 (09:00→20:31)
[2020-05-10] MEDS: DIAZEPAM 5 MG TABLET GT SCH ×2 (09:00→20:32)
[2020-05-10] MEDS: ASPIRIN 81 MG TAB.CHEW GT SCH (09:00)
[2020-05-10] MEDS: AMIODARONE HCL 200 MG TABLET GT SCH (09:00)
[2020-05-10] MEDS: levETIRAcetam 500 MG/5 ML LIQUID UDC GT SCH ×2 (09:00→20:28)
[2020-05-10] MEDS: PHENOBARBITAL 30 MG/7.5 ML LIQUID UDC GT SCH ×2 (09:00→20:31)
[2020-05-10] MEDS: METOPROLOL TARTRATE 25 MG TABLET GT SCH ×2 (09:00→20:29)
[2020-05-10] MEDS: ASCORBIC ACID 500 MG TABLET PO SCH ×2 (09:01→20:32)
[2020-05-10] MEDS: COD LIVER OIL/ZINC OXIDE OINT 113 GM TUBE TP SCH ×4 (09:01→20:32)
[2020-05-10] MEDS: HYDROGEN PEROXIDE 3% 118 ML BOTTLE TOP SCH ×2 (09:36→21:39)
[2020-05-10] MEDS: MAGNESIUM OXIDE 400 MG TABLET GT SCH (20:29)
[2020-05-10] MEDS: MULTIVIT, IRON, MIN NO. 8, FA TABLET GT SCH (20:31)
[2020-05-10 20:57] VITALS: BP 103/52
[2020-05-11] MEDS: OMEPRAZOLE 40MG GT SCH (05:45)
[2020-05-11] MEDS: ASPIRIN 81 MG TAB.CHEW GT SCH (08:52)
[2020-05-11] MEDS: PHENOBARBITAL 30 MG/7.5 ML LIQUID UDC GT SCH ×2 (08:54→20:22)
[2020-05-11] MEDS: DIAZEPAM 5 MG TABLET GT SCH ×2 (08:54→20:23)
[2020-05-11] MEDS: PROTEIN SUPPLEMENT (PROSTAT) 30 ML LIQUID GT SCH ×2 (08:54→20:22)
[2020-05-11] MEDS: ASCORBIC ACID 500 MG TABLET PO SCH ×2 (08:55→20:23)
[2020-05-11] MEDS: COD LIVER OIL/ZINC OXIDE OINT 113 GM TUBE TP SCH ×4 (08:55→20:23)
[2020-05-11] MEDS: levETIRAcetam 500 MG/5 ML LIQUID UDC GT SCH ×2 (08:56→20:20)
[2020-05-11] MEDS: METOPROLOL TARTRATE 25 MG TABLET GT SCH ×2 (08:58→20:22)
[2020-05-11] MEDS: AMIODARONE HCL 200 MG TABLET GT SCH (08:58)
[2020-05-11] MEDS: HYDROGEN PEROXIDE 3% 118 ML BOTTLE TOP SCH ×2 (09:00→21:17)
[2020-05-11 09:30] VITALS: BP 120/62
[2020-05-11] MEDS: VITAL AF 1.2 1,000 ML LIQUID GT PRN (11:13)
--- NOTE | 2020-05-11 16:00 | NUR ---
Left message to Pt's father to get consent for the flu shot.
--- NOTE | 2020-05-11 16:30 | NUR ---
Seen and examined by Dr Lora,with new orders noted.
[2020-05-11 20:07] VITALS: BP 102/65
[2020-05-11] MEDS: MAGNESIUM OXIDE 400 MG TABLET GT SCH (20:22)
[2020-05-11] MEDS: MULTIVIT, IRON, MIN NO. 8, FA TABLET GT SCH (20:23)
[2020-05-12] MEDS: OMEPRAZOLE 40MG GT SCH (06:00)
[2020-05-12 07:48] VITALS: BP 114/66
[2020-05-12] MEDS: ASPIRIN 81 MG TAB.CHEW GT SCH (09:51)
[2020-05-12] MEDS: HYDROGEN PEROXIDE 3% 118 ML BOTTLE TOP SCH ×2 (09:52→21:00)
[2020-05-12] MEDS: METOPROLOL TARTRATE 25 MG TABLET GT SCH ×2 (09:52→20:25)
[2020-05-12] MEDS: ASCORBIC ACID 500 MG TABLET PO SCH ×2 (09:52→20:27)
[2020-05-12] MEDS: COD LIVER OIL/ZINC OXIDE OINT 113 GM TUBE TP SCH ×4 (09:52→20:27)
[2020-05-12] MEDS: DIAZEPAM 5 MG TABLET GT SCH ×2 (09:52→20:27)
[2020-05-12] MEDS: PHENOBARBITAL 30 MG/7.5 ML LIQUID UDC GT SCH ×2 (09:52→20:25)
[2020-05-12] MEDS: AMIODARONE HCL 200 MG TABLET GT SCH (09:52)
[2020-05-12] MEDS: PROTEIN SUPPLEMENT (PROSTAT) 30 ML LIQUID GT SCH ×2 (09:52→20:27)
[2020-05-12] MEDS: levETIRAcetam 500 MG/5 ML LIQUID UDC GT SCH ×2 (09:52→20:25)
--- NOTE | 2020-05-12 10:00 | NUR ---
PT'S FATHER GAVE CONSENT FOR FLU VACCINE.
--- NOTE | 2020-05-12 14:30 | NUR ---
replaced completely new voss #16. Removed #18. obtained clear yellow urine with sediment. informed charge nurse for collection of C&S but was not necessary. urine was discarded
--- NOTE | 2020-05-12 19:28 | NUR ---
NEW ORDER FOR FLU VACCINE OBTAINED FROM FLASH Mclaughlin
[2020-05-12 20:00] VITALS: BP 119/79
[2020-05-12] MEDS ORDERED: INFLUENZA VACCINE 2020-2021 0.5 ML DISP.SYRIN IM ONE (20:00)
[2020-05-12] MEDS: MAGNESIUM OXIDE 400 MG TABLET GT SCH (20:25)
[2020-05-12] MEDS: MULTIVIT, IRON, MIN NO. 8, FA TABLET GT SCH (20:27)
[2020-05-13] MEDS: OMEPRAZOLE 40MG GT SCH (05:06)
[2020-05-13 07:40] VITALS: BP 114/68
[2020-05-13] MEDS: HYDROGEN PEROXIDE 3% 118 ML BOTTLE TOP SCH ×2 (08:14→18:55)
[2020-05-13] MEDS: ASPIRIN 81 MG TAB.CHEW GT SCH (08:30)
[2020-05-13] MEDS: levETIRAcetam 500 MG/5 ML LIQUID UDC GT SCH ×2 (08:31→20:46)
[2020-05-13] MEDS: PHENOBARBITAL 30 MG/7.5 ML LIQUID UDC GT SCH ×2 (08:32→20:47)
[2020-05-13] MEDS: PROTEIN SUPPLEMENT (PROSTAT) 30 ML LIQUID GT SCH ×2 (08:33→20:47)
[2020-05-13] MEDS: ASCORBIC ACID 500 MG TABLET PO SCH ×2 (08:33→20:47)
[2020-05-13] MEDS: DIAZEPAM 5 MG TABLET GT SCH ×2 (08:33→20:47)
[2020-05-13] MEDS: METOPROLOL TARTRATE 25 MG TABLET GT SCH ×2 (08:34→20:46)
[2020-05-13] MEDS: AMIODARONE HCL 200 MG TABLET GT SCH (08:34)
[2020-05-13] MEDS: COD LIVER OIL/ZINC OXIDE OINT 113 GM TUBE TP SCH ×4 (09:00→20:47)
--- NOTE | 2020-05-13 15:27 | NUR ---
Patient seen by Dr. Peace on 05/12/2020 for her routine annual eye exam. Please see optometry notes in patient's chart for details.
--- NOTE | 2020-05-13 18:56 | NUR ---
NO A/R TO FLU VACCINE ,AFEBRILE.
[2020-05-13] MEDS: MAGNESIUM OXIDE 400 MG TABLET GT SCH (20:47)
[2020-05-13] MEDS: MULTIVIT, IRON, MIN NO. 8, FA TABLET GT SCH (20:47)
[2020-05-13 20:51] VITALS: BP 130/70
--- NOTE | 2020-05-13 22:53 | NUR ---
Afebrile, no adverse reactions noted from the flu vaccine.
[2020-05-14] MEDS: OMEPRAZOLE 40MG GT SCH (05:45)
[2020-05-14] MEDS: ASPIRIN 81 MG TAB.CHEW GT SCH (08:02)
[2020-05-14] MEDS: AMIODARONE HCL 200 MG TABLET GT SCH (08:02)
[2020-05-14] MEDS: levETIRAcetam 500 MG/5 ML LIQUID UDC GT SCH ×2 (08:03→21:03)
[2020-05-14] MEDS: METOPROLOL TARTRATE 25 MG TABLET GT SCH ×2 (08:04→21:03)
[2020-05-14] MEDS: PHENOBARBITAL 30 MG/7.5 ML LIQUID UDC GT SCH ×2 (08:04→21:04)
[2020-05-14] MEDS: ASCORBIC ACID 500 MG TABLET PO SCH ×2 (08:04→21:05)
[2020-05-14] MEDS: PROTEIN SUPPLEMENT (PROSTAT) 30 ML LIQUID GT SCH ×2 (08:04→21:04)
[2020-05-14] MEDS: DIAZEPAM 5 MG TABLET GT SCH ×2 (08:04→21:05)
[2020-05-14] MEDS: COD LIVER OIL/ZINC OXIDE OINT 113 GM TUBE TP SCH ×4 (08:05→21:05)
[2020-05-14] MEDS: HYDROGEN PEROXIDE 3% 118 ML BOTTLE TOP SCH ×2 (09:20→19:14)
--- NOTE | 2020-05-14 18:20 | NUR ---
NO A/R TO FLU VACCINE ,AFEBRILE.
[2020-05-14 20:11] VITALS: BP 121/78
[2020-05-14] MEDS: MAGNESIUM OXIDE 400 MG TABLET GT SCH (21:04)
[2020-05-14] MEDS: MULTIVIT, IRON, MIN NO. 8, FA TABLET GT SCH (21:04)
--- NOTE | 2020-05-14 21:56 | NUR ---
Afebrile, no adverse reactions from flu vaccine, no redness on injection site.
[2020-05-15] MEDS: OMEPRAZOLE 40MG GT SCH (06:40)
[2020-05-15 07:50] VITALS: BP 98/70
[2020-05-15] MEDS: HYDROGEN PEROXIDE 3% 118 ML BOTTLE TOP SCH ×2 (07:58→18:56)
[2020-05-15] MEDS: METOPROLOL TARTRATE 25 MG TABLET GT SCH ×2 (08:22→20:29)
[2020-05-15] MEDS: AMIODARONE HCL 200 MG TABLET GT SCH (08:22)
[2020-05-15] MEDS: levETIRAcetam 500 MG/5 ML LIQUID UDC GT SCH ×2 (08:22→20:28)
[2020-05-15] MEDS: ASPIRIN 81 MG TAB.CHEW GT SCH (08:22)
[2020-05-15] MEDS: PHENOBARBITAL 30 MG/7.5 ML LIQUID UDC GT SCH ×2 (08:23→20:29)
[2020-05-15] MEDS: PROTEIN SUPPLEMENT (PROSTAT) 30 ML LIQUID GT SCH ×2 (08:23→20:29)
[2020-05-15] MEDS: DIAZEPAM 5 MG TABLET GT SCH ×2 (08:23→20:29)
[2020-05-15] MEDS: ASCORBIC ACID 500 MG TABLET PO SCH ×2 (08:23→20:29)
[2020-05-15] MEDS: COD LIVER OIL/ZINC OXIDE OINT 113 GM TUBE TP SCH ×4 (08:23→20:29)
--- NOTE | 2020-05-15 13:57 | NUR ---
NO A/R TO FLU VACCINE ,AFEBRILE.
[2020-05-15] MEDS: VITAL AF 1.2 1,000 ML LIQUID GT PRN (17:36)
[2020-05-15 20:24] VITALS: BP 127/49
[2020-05-15] MEDS: MAGNESIUM OXIDE 400 MG TABLET GT SCH (20:29)
[2020-05-15] MEDS: MULTIVIT, IRON, MIN NO. 8, FA TABLET GT SCH (20:29)
[2020-05-16] MEDS: OMEPRAZOLE 40MG GT SCH (05:53)
--- NOTE | 2020-05-16 06:59 | NUR ---
No A/R to flu vaccine, afebrile.
[2020-05-16 07:57] VITALS: BP 125/72
[2020-05-16] MEDS: ASPIRIN 81 MG TAB.CHEW GT SCH (08:55)
[2020-05-16] MEDS: levETIRAcetam 500 MG/5 ML LIQUID UDC GT SCH ×2 (08:57→20:07)
[2020-05-16] MEDS: METOPROLOL TARTRATE 25 MG TABLET GT SCH ×2 (08:59→20:08)
[2020-05-16] MEDS: PHENOBARBITAL 30 MG/7.5 ML LIQUID UDC GT SCH ×2 (08:59→20:08)
[2020-05-16] MEDS: PROTEIN SUPPLEMENT (PROSTAT) 30 ML LIQUID GT SCH ×2 (08:59→20:09)
[2020-05-16] MEDS: ASCORBIC ACID 500 MG TABLET PO SCH ×2 (09:00→20:09)
[2020-05-16] MEDS: COD LIVER OIL/ZINC OXIDE OINT 113 GM TUBE TP SCH ×4 (09:00→20:09)
[2020-05-16] MEDS: DIAZEPAM 5 MG TABLET GT SCH ×2 (09:00→20:09)
[2020-05-16] MEDS: AMIODARONE HCL 200 MG TABLET GT SCH (09:10)
[2020-05-16] MEDS: HYDROGEN PEROXIDE 3% 118 ML BOTTLE TOP SCH ×2 (09:49→21:41)
--- NOTE | 2020-05-16 15:46 | NUR ---
SEEN BY FLASH Mclaughlin AND WITH NNO.
[2020-05-16] MEDS: VITAL AF 1.2 1,000 ML LIQUID GT PRN (17:57)
--- NOTE | 2020-05-16 18:08 | NUR ---
SEEN BY DR. MILTON AND NNO.
[2020-05-16 20:07] VITALS: BP 118/72
[2020-05-16] MEDS: MAGNESIUM OXIDE 400 MG TABLET GT SCH (20:08)
[2020-05-16] MEDS: MULTIVIT, IRON, MIN NO. 8, FA TABLET GT SCH (20:09)
[2020-05-17] MEDS: OMEPRAZOLE 40MG GT SCH (05:39)
[2020-05-17 07:23] VITALS: BP 138/78
[2020-05-17] MEDS: HYDROGEN PEROXIDE 3% 118 ML BOTTLE TOP SCH ×2 (08:15→21:31)
[2020-05-17] MEDS: METOPROLOL TARTRATE 25 MG TABLET GT SCH ×2 (08:33→21:00)
[2020-05-17] MEDS: AMIODARONE HCL 200 MG TABLET GT SCH (08:41)
[2020-05-17] MEDS: ASPIRIN 81 MG TAB.CHEW GT SCH (08:41)
[2020-05-17] MEDS: PHENOBARBITAL 30 MG/7.5 ML LIQUID UDC GT SCH ×2 (08:41→20:27)
[2020-05-17] MEDS: levETIRAcetam 500 MG/5 ML LIQUID UDC GT SCH ×2 (08:41→20:26)
[2020-05-17] MEDS: PROTEIN SUPPLEMENT (PROSTAT) 30 ML LIQUID GT SCH ×2 (08:42→20:27)
[2020-05-17] MEDS: ASCORBIC ACID 500 MG TABLET PO SCH ×2 (08:42→20:27)
[2020-05-17] MEDS: DIAZEPAM 5 MG TABLET GT SCH ×2 (08:42→20:27)
[2020-05-17] MEDS: COD LIVER OIL/ZINC OXIDE OINT 113 GM TUBE TP SCH ×4 (08:43→20:28)
--- NOTE | 2020-05-17 17:10 | NUR ---
Called pt's father Chaz made aware of the Covid test to be performed to the pt today.
[2020-05-17] MEDS: VITAL AF 1.2 1,000 ML LIQUID GT PRN (17:17)
[2020-05-17] MEDS: MULTIVIT, IRON, MIN NO. 8, FA TABLET GT SCH (20:27)
[2020-05-17] MEDS: MAGNESIUM OXIDE 400 MG TABLET GT SCH (20:27)
[2020-05-17 20:46] VITALS: BP 96/60
[2020-05-18] MEDS: OMEPRAZOLE 40MG GT SCH (05:41)
[2020-05-18] MEDS: HYDROGEN PEROXIDE 3% 118 ML BOTTLE TOP SCH ×2 (07:31→18:43)
[2020-05-18 07:38] VITALS: BP 119/64
[2020-05-18] MEDS: ASPIRIN 81 MG TAB.CHEW GT SCH (08:41)
[2020-05-18] MEDS: levETIRAcetam 500 MG/5 ML LIQUID UDC GT SCH ×2 (08:42→20:09)
[2020-05-18] MEDS: AMIODARONE HCL 200 MG TABLET GT SCH (08:42)
[2020-05-18] MEDS: METOPROLOL TARTRATE 25 MG TABLET GT SCH ×2 (08:45→20:11)
[2020-05-18] MEDS: ASCORBIC ACID 500 MG TABLET PO SCH ×2 (08:46→20:13)
[2020-05-18] MEDS: COD LIVER OIL/ZINC OXIDE OINT 113 GM TUBE TP SCH ×4 (08:46→20:13)
[2020-05-18] MEDS: PHENOBARBITAL 30 MG/7.5 ML LIQUID UDC GT SCH ×2 (08:46→20:12)
[2020-05-18] MEDS: PROTEIN SUPPLEMENT (PROSTAT) 30 ML LIQUID GT SCH ×2 (08:46→20:12)
[2020-05-18] MEDS: DIAZEPAM 5 MG TABLET GT SCH ×2 (08:46→20:13)
[2020-05-18 19:43] VITALS: BP 120/75
[2020-05-18] MEDS: VITAL AF 1.2 1,000 ML LIQUID GT PRN (20:08)
[2020-05-18] MEDS: MULTIVIT, IRON, MIN NO. 8, FA TABLET GT SCH (20:12)
[2020-05-18] MEDS: MAGNESIUM OXIDE 400 MG TABLET GT SCH (20:12)
[2020-05-19] MEDS: OMEPRAZOLE 40MG GT SCH (05:01)
[2020-05-19 07:25] VITALS: BP 110/69
[2020-05-19] MEDS: ASPIRIN 81 MG TAB.CHEW GT SCH (08:35)
[2020-05-19] MEDS: AMIODARONE HCL 200 MG TABLET GT SCH (08:36)
[2020-05-19] MEDS: levETIRAcetam 500 MG/5 ML LIQUID UDC GT SCH ×2 (08:36→21:30)
[2020-05-19] MEDS: COD LIVER OIL/ZINC OXIDE OINT 113 GM TUBE TP SCH ×4 (08:41→21:34)
[2020-05-19] MEDS: PROTEIN SUPPLEMENT (PROSTAT) 30 ML LIQUID GT SCH ×2 (08:41→21:34)
[2020-05-19] MEDS: PHENOBARBITAL 30 MG/7.5 ML LIQUID UDC GT SCH ×2 (08:41→21:32)
[2020-05-19] MEDS: METOPROLOL TARTRATE 25 MG TABLET GT SCH ×2 (08:41→21:33)
[2020-05-19] MEDS: ASCORBIC ACID 500 MG TABLET PO SCH ×2 (08:41→21:34)
[2020-05-19] MEDS: DIAZEPAM 5 MG TABLET GT SCH ×2 (08:41→21:34)
[2020-05-19] MEDS: HYDROGEN PEROXIDE 3% 118 ML BOTTLE TOP SCH ×2 (09:58→19:02)
[2020-05-19] MEDS: VITAL AF 1.2 1,000 ML LIQUID GT PRN (14:29)
[2020-05-19 20:03] VITALS: BP 131/81
[2020-05-19] MEDS: MAGNESIUM OXIDE 400 MG TABLET GT SCH (21:31)
[2020-05-19] MEDS: MULTIVIT, IRON, MIN NO. 8, FA TABLET GT SCH (21:34)
--- NOTE | 2020-05-20 01:28 | NUR ---
Patient is afebrile, No respiratory distress noted, 02 sat is 100%, will continue monitor.
[2020-05-20] MEDS: OMEPRAZOLE 40MG GT SCH (06:15)
[2020-05-20] MEDS: AMIODARONE HCL 200 MG TABLET GT SCH (08:06)
[2020-05-20] MEDS: ASPIRIN 81 MG TAB.CHEW GT SCH (08:06)
[2020-05-20] MEDS: levETIRAcetam 500 MG/5 ML LIQUID UDC GT SCH ×2 (08:08→20:58)
[2020-05-20] MEDS: METOPROLOL TARTRATE 25 MG TABLET GT SCH ×2 (08:09→20:58)
[2020-05-20] MEDS: PROTEIN SUPPLEMENT (PROSTAT) 30 ML LIQUID GT SCH ×2 (08:10→21:01)
[2020-05-20] MEDS: ASCORBIC ACID 500 MG TABLET PO SCH ×2 (08:10→21:01)
[2020-05-20] MEDS: COD LIVER OIL/ZINC OXIDE OINT 113 GM TUBE TP SCH ×4 (08:10→21:01)
[2020-05-20] MEDS: DIAZEPAM 5 MG TABLET GT SCH ×2 (08:10→21:01)
[2020-05-20] MEDS: PHENOBARBITAL 30 MG/7.5 ML LIQUID UDC GT SCH ×2 (08:10→20:59)
[2020-05-20 08:18] VITALS: BP_SYST 123; BP_SYST 126; BP_DIAS 70; BP_DIAS 79
[2020-05-20] MEDS: HYDROGEN PEROXIDE 3% 118 ML BOTTLE TOP SCH ×2 (10:30→21:18)
[2020-05-20] MEDS: MAGNESIUM OXIDE 400 MG TABLET GT SCH (20:59)
[2020-05-20] MEDS: MULTIVIT, IRON, MIN NO. 8, FA TABLET GT SCH (21:01)
[2020-05-21] MEDS: OMEPRAZOLE 40MG GT SCH (05:20)
[2020-05-21 07:37] VITALS: BP 138/85
[2020-05-21] MEDS: ASPIRIN 81 MG TAB.CHEW GT SCH (08:00)
[2020-05-21] MEDS: levETIRAcetam 500 MG/5 ML LIQUID UDC GT SCH ×2 (08:00→20:37)
[2020-05-21] MEDS: AMIODARONE HCL 200 MG TABLET GT SCH (08:00)
[2020-05-21] MEDS: DIAZEPAM 5 MG TABLET GT SCH ×2 (08:01→20:41)
[2020-05-21] MEDS: PROTEIN SUPPLEMENT (PROSTAT) 30 ML LIQUID GT SCH ×2 (08:01→20:40)
[2020-05-21] MEDS: COD LIVER OIL/ZINC OXIDE OINT 113 GM TUBE TP SCH ×4 (08:01→20:41)
[2020-05-21] MEDS: METOPROLOL TARTRATE 25 MG TABLET GT SCH ×2 (08:01→20:38)
[2020-05-21] MEDS: ASCORBIC ACID 500 MG TABLET PO SCH ×2 (08:01→20:41)
[2020-05-21] MEDS: PHENOBARBITAL 30 MG/7.5 ML LIQUID UDC GT SCH ×2 (08:01→20:39)
[2020-05-21] MEDS: HYDROGEN PEROXIDE 3% 118 ML BOTTLE TOP SCH ×2 (09:12→21:30)
[2020-05-21] MEDS: VITAL AF 1.2 1,000 ML LIQUID GT PRN (11:20)
[2020-05-21 20:21] VITALS: BP 122/68
[2020-05-21] MEDS: MAGNESIUM OXIDE 400 MG TABLET GT SCH (20:39)
[2020-05-21] MEDS: MULTIVIT, IRON, MIN NO. 8, FA TABLET GT SCH (20:41)
[2020-05-22] MEDS: VITAL AF 1.2 1,000 ML LIQUID GT PRN (03:30)
[2020-05-22] MEDS: OMEPRAZOLE 40MG GT SCH (05:17)
[2020-05-22 08:01] VITALS: BP 132/80
[2020-05-22] MEDS: HYDROGEN PEROXIDE 3% 118 ML BOTTLE TOP SCH ×2 (09:00→21:00)
[2020-05-22] MEDS: PHENOBARBITAL 30 MG/7.5 ML LIQUID UDC GT SCH ×2 (09:05→21:09)
[2020-05-22] MEDS: PROTEIN SUPPLEMENT (PROSTAT) 30 ML LIQUID GT SCH ×2 (09:05→21:09)
[2020-05-22] MEDS: ASCORBIC ACID 500 MG TABLET PO SCH ×2 (09:05→21:09)
[2020-05-22] MEDS: levETIRAcetam 500 MG/5 ML LIQUID UDC GT SCH ×2 (09:05→20:44)
[2020-05-22] MEDS: COD LIVER OIL/ZINC OXIDE OINT 113 GM TUBE TP SCH ×4 (09:05→21:09)
[2020-05-22] MEDS: DIAZEPAM 5 MG TABLET GT SCH ×2 (09:05→21:09)
[2020-05-22] MEDS: ASPIRIN 81 MG TAB.CHEW GT SCH (09:05)
[2020-05-22] MEDS: METOPROLOL TARTRATE 25 MG TABLET GT SCH ×2 (09:08→21:09)
[2020-05-22] MEDS: AMIODARONE HCL 200 MG TABLET GT SCH (09:08)
[2020-05-22 20:23] VITALS: BP 123/80
[2020-05-22] MEDS: MAGNESIUM OXIDE 400 MG TABLET GT SCH (21:09)
[2020-05-22] MEDS: MULTIVIT, IRON, MIN NO. 8, FA TABLET GT SCH (21:09)
[2020-05-23] MEDS: OMEPRAZOLE 40MG GT SCH (06:03)
[2020-05-23] MEDS: VITAL AF 1.2 1,000 ML LIQUID GT PRN (06:36)
[2020-05-23 07:35] VITALS: BP 98/55
[2020-05-23] MEDS: ASPIRIN 81 MG TAB.CHEW GT SCH (08:37)
[2020-05-23] MEDS: levETIRAcetam 500 MG/5 ML LIQUID UDC GT SCH ×2 (08:37→20:52)
[2020-05-23] MEDS: AMIODARONE HCL 200 MG TABLET GT SCH (08:37)
[2020-05-23] MEDS: METOPROLOL TARTRATE 25 MG TABLET GT SCH ×2 (08:40→20:53)
[2020-05-23] MEDS: COD LIVER OIL/ZINC OXIDE OINT 113 GM TUBE TP SCH ×3 (08:41→20:53)
[2020-05-23] MEDS: DIAZEPAM 5 MG TABLET GT SCH ×2 (08:41→20:53)
[2020-05-23] MEDS: PROTEIN SUPPLEMENT (PROSTAT) 30 ML LIQUID GT SCH ×2 (08:41→20:53)
[2020-05-23] MEDS: PHENOBARBITAL 30 MG/7.5 ML LIQUID UDC GT SCH ×2 (08:41→20:53)
[2020-05-23] MEDS: ASCORBIC ACID 500 MG TABLET PO SCH ×2 (08:41→20:53)
[2020-05-23] MEDS: HYDROGEN PEROXIDE 3% 118 ML BOTTLE TOP SCH ×2 (09:16→19:01)
[2020-05-23 20:08] VITALS: BP 120/73
[2020-05-23] MEDS: MULTIVIT, IRON, MIN NO. 8, FA TABLET GT SCH (20:53)
[2020-05-23] MEDS: MAGNESIUM OXIDE 400 MG TABLET GT SCH (20:53)
[2020-05-24] MEDS: OMEPRAZOLE 40MG GT SCH (05:58)
[2020-05-24] MEDS: VITAL AF 1.2 1,000 ML LIQUID GT PRN (07:12)
[2020-05-24 07:58] VITALS: BP 93/60
[2020-05-24] MEDS: HYDROGEN PEROXIDE 3% 118 ML BOTTLE TOP SCH ×2 (08:04→21:25)
[2020-05-24] MEDS: ASPIRIN 81 MG TAB.CHEW GT SCH (08:39)
[2020-05-24] MEDS: METOPROLOL TARTRATE 25 MG TABLET GT SCH ×2 (08:40→20:23)
[2020-05-24] MEDS: levETIRAcetam 500 MG/5 ML LIQUID UDC GT SCH ×2 (08:40→20:22)
[2020-05-24] MEDS: AMIODARONE HCL 200 MG TABLET GT SCH (08:40)
[2020-05-24] MEDS: PROTEIN SUPPLEMENT (PROSTAT) 30 ML LIQUID GT SCH ×2 (08:42→20:25)
[2020-05-24] MEDS: COD LIVER OIL/ZINC OXIDE OINT 113 GM TUBE TP SCH ×2 (08:42→20:26)
[2020-05-24] MEDS: DIAZEPAM 5 MG TABLET GT SCH ×2 (08:42→20:25)
[2020-05-24] MEDS: ASCORBIC ACID 500 MG TABLET PO SCH ×2 (08:42→20:25)
[2020-05-24] MEDS: PHENOBARBITAL 30 MG/7.5 ML LIQUID UDC GT SCH ×2 (08:42→20:25)
[2020-05-24 20:03] VITALS: BP 123/73
[2020-05-24] MEDS: MAGNESIUM OXIDE 400 MG TABLET GT SCH (20:24)
[2020-05-24] MEDS: MULTIVIT, IRON, MIN NO. 8, FA TABLET GT SCH (20:25)
[2020-05-25] MEDS: VITAL AF 1.2 1,000 ML LIQUID GT PRN (04:24)
[2020-05-25] MEDS: OMEPRAZOLE 40MG GT SCH (05:52)
[2020-05-25] MEDS: HYDROGEN PEROXIDE 3% 118 ML BOTTLE TOP SCH ×2 (07:30→21:34)
[2020-05-25 07:46] VITALS: BP 121/67
[2020-05-25] MEDS: AMIODARONE HCL 200 MG TABLET GT SCH (08:30)
[2020-05-25] MEDS: ASPIRIN 81 MG TAB.CHEW GT SCH (08:30)
[2020-05-25] MEDS: levETIRAcetam 500 MG/5 ML LIQUID UDC GT SCH ×2 (08:31→20:14)
[2020-05-25] MEDS: METOPROLOL TARTRATE 25 MG TABLET GT SCH ×2 (08:31→20:17)
[2020-05-25] MEDS: DIAZEPAM 5 MG TABLET GT SCH ×2 (08:32→20:19)
[2020-05-25] MEDS: PHENOBARBITAL 30 MG/7.5 ML LIQUID UDC GT SCH ×2 (08:32→20:19)
[2020-05-25] MEDS: PROTEIN SUPPLEMENT (PROSTAT) 30 ML LIQUID GT SCH ×2 (08:32→20:19)
[2020-05-25] MEDS: ASCORBIC ACID 500 MG TABLET PO SCH ×2 (08:35→20:20)
[2020-05-25] MEDS: COD LIVER OIL/ZINC OXIDE OINT 113 GM TUBE TP SCH ×2 (08:36→20:20)
--- NOTE | 2020-05-25 19:02 | NUR ---
Pt's father Chaz notified Covid 19 test result was negative.
[2020-05-25 19:56] VITALS: BP 124/80
[2020-05-25] MEDS: MAGNESIUM OXIDE 400 MG TABLET GT SCH (20:17)
[2020-05-25] MEDS: MULTIVIT, IRON, MIN NO. 8, FA TABLET GT SCH (20:19)
--- NOTE | 2020-05-25 20:42 | NUR ---
Pt received on HT-50 ventilator with the following settings of AC-14, Vt-500, PEEP+5, FIO2-30%, trached with Shiley#8 DCT trach, which is in the place and secure. No respiratory distress noted. Airway care done, pt responded to physical stimuli. HME changed. Resus. bag and back up trach at bedside. Vent and alarms checked and reset.
[2020-05-26] MEDS: VITAL AF 1.2 1,000 ML LIQUID GT PRN (04:19)
[2020-05-26] MEDS: OMEPRAZOLE 40MG GT SCH (05:35)
[2020-05-26 07:39] VITALS: BP 119/60
[2020-05-26] MEDS: levETIRAcetam 500 MG/5 ML LIQUID UDC GT SCH ×2 (08:26→20:13)
[2020-05-26] MEDS: AMIODARONE HCL 200 MG TABLET GT SCH (08:26)
[2020-05-26] MEDS: ASPIRIN 81 MG TAB.CHEW GT SCH (08:26)
[2020-05-26] MEDS: ASCORBIC ACID 500 MG TABLET PO SCH ×2 (08:27→20:14)
[2020-05-26] MEDS: PHENOBARBITAL 30 MG/7.5 ML LIQUID UDC GT SCH ×2 (08:27→20:13)
[2020-05-26] MEDS: METOPROLOL TARTRATE 25 MG TABLET GT SCH ×2 (08:27→20:31)
[2020-05-26] MEDS: DIAZEPAM 5 MG TABLET GT SCH ×2 (08:27→20:14)
[2020-05-26] MEDS: COD LIVER OIL/ZINC OXIDE OINT 113 GM TUBE TP SCH ×2 (08:27→20:14)
[2020-05-26] MEDS: PROTEIN SUPPLEMENT (PROSTAT) 30 ML LIQUID GT SCH ×2 (08:27→20:13)
[2020-05-26] MEDS: HYDROGEN PEROXIDE 3% 118 ML BOTTLE TOP SCH ×2 (09:52→21:25)
--- NOTE | 2020-05-26 17:00 | NUR ---
SEEN BY DR. TOMASZ MADISON.
[2020-05-26] MEDS: MAGNESIUM OXIDE 400 MG TABLET GT SCH (20:13)
[2020-05-26] MEDS: MULTIVIT, IRON, MIN NO. 8, FA TABLET GT SCH (20:14)
[2020-05-26 23:04] VITALS: BP 122/77
--- NOTE | 2020-05-26 23:32 | NUR ---
Pt received on HT-50 ventilator with the following settings of AC-14, Vt-500, PEEP+5, FIO2-30%, trached with Shiley#8 DCT trach, which is in the place and secure. No distress noted. Airway care done, pt responded to physical stimuli. Resus. bag and back up trach at bedside. Vent and alarms checked and reset.
[2020-05-27] MEDS: VITAL AF 1.2 1,000 ML LIQUID GT PRN ×2 (03:50→22:45)
[2020-05-27] MEDS: OMEPRAZOLE 40MG GT SCH (05:45)
[2020-05-27 07:53] VITALS: BP 125/83
[2020-05-27 07:54] VITALS: BP 125/83
[2020-05-27] MEDS: AMIODARONE HCL 200 MG TABLET GT SCH (08:08)
[2020-05-27] MEDS: ASPIRIN 81 MG TAB.CHEW GT SCH (08:08)
[2020-05-27] MEDS: METOPROLOL TARTRATE 25 MG TABLET GT SCH ×2 (08:10→20:37)
[2020-05-27] MEDS: levETIRAcetam 500 MG/5 ML LIQUID UDC GT SCH ×2 (08:10→20:37)
[2020-05-27] MEDS: PHENOBARBITAL 30 MG/7.5 ML LIQUID UDC GT SCH ×2 (08:11→20:38)
[2020-05-27] MEDS: DIAZEPAM 5 MG TABLET GT SCH ×2 (08:11→20:38)
[2020-05-27] MEDS: COD LIVER OIL/ZINC OXIDE OINT 113 GM TUBE TP SCH ×2 (08:11→20:38)
[2020-05-27] MEDS: ASCORBIC ACID 500 MG TABLET PO SCH ×2 (08:11→20:38)
[2020-05-27] MEDS: PROTEIN SUPPLEMENT (PROSTAT) 30 ML LIQUID GT SCH ×2 (08:11→20:38)
[2020-05-27] MEDS: HYDROGEN PEROXIDE 3% 118 ML BOTTLE TOP SCH ×2 (09:07→20:30)
[2020-05-27] MEDS: MAGNESIUM OXIDE 400 MG TABLET GT SCH (20:38)
[2020-05-27] MEDS: MULTIVIT, IRON, MIN NO. 8, FA TABLET GT SCH (20:38)
[2020-05-27 22:37] VITALS: BP 122/87
[2020-05-28] MEDS: OMEPRAZOLE 40MG GT SCH (05:35)
[2020-05-28 07:45] VITALS: BP 118/75
[2020-05-28] MEDS: levETIRAcetam 500 MG/5 ML LIQUID UDC GT SCH ×2 (08:08→20:46)
[2020-05-28] MEDS: ASPIRIN 81 MG TAB.CHEW GT SCH (08:08)
[2020-05-28] MEDS: AMIODARONE HCL 200 MG TABLET GT SCH (08:08)
[2020-05-28] MEDS: METOPROLOL TARTRATE 25 MG TABLET GT SCH ×2 (08:09→20:46)
[2020-05-28] MEDS: HYDROGEN PEROXIDE 3% 118 ML BOTTLE TOP SCH ×2 (08:15→21:50)
[2020-05-28] MEDS: PHENOBARBITAL 30 MG/7.5 ML LIQUID UDC GT SCH ×2 (09:14→20:46)
[2020-05-28] MEDS: DIAZEPAM 5 MG TABLET GT SCH ×2 (09:14→20:46)
[2020-05-28] MEDS: PROTEIN SUPPLEMENT (PROSTAT) 30 ML LIQUID GT SCH ×2 (09:14→20:46)
[2020-05-28] MEDS: ASCORBIC ACID 500 MG TABLET PO SCH ×2 (09:14→20:46)
[2020-05-28] MEDS: COD LIVER OIL/ZINC OXIDE OINT 113 GM TUBE TP SCH ×2 (09:14→20:46)
[2020-05-28] MEDS: MAGNESIUM OXIDE 400 MG TABLET GT SCH (20:46)
[2020-05-28] MEDS: MULTIVIT, IRON, MIN NO. 8, FA TABLET GT SCH (20:46)
[2020-05-28 23:11] VITALS: BP 118/77
[2020-05-29] MEDS: VITAL AF 1.2 1,000 ML LIQUID GT PRN ×2 (01:32→22:21)
[2020-05-29] MEDS: OMEPRAZOLE 40MG GT SCH (05:16)
[2020-05-29 07:41] VITALS: BP 101/61
[2020-05-29] MEDS: levETIRAcetam 500 MG/5 ML LIQUID UDC GT SCH ×2 (08:25→20:49)
[2020-05-29] MEDS: AMIODARONE HCL 200 MG TABLET GT SCH (08:25)
[2020-05-29] MEDS: ASPIRIN 81 MG TAB.CHEW GT SCH (08:25)
[2020-05-29] MEDS: METOPROLOL TARTRATE 25 MG TABLET GT SCH ×2 (08:27→20:49)
[2020-05-29] MEDS: PROTEIN SUPPLEMENT (PROSTAT) 30 ML LIQUID GT SCH ×2 (08:27→20:49)
[2020-05-29] MEDS: ASCORBIC ACID 500 MG TABLET PO SCH ×2 (08:27→20:49)
[2020-05-29] MEDS: PHENOBARBITAL 30 MG/7.5 ML LIQUID UDC GT SCH ×2 (08:27→20:49)
[2020-05-29] MEDS: COD LIVER OIL/ZINC OXIDE OINT 113 GM TUBE TP SCH ×2 (08:27→20:49)
[2020-05-29] MEDS: DIAZEPAM 5 MG TABLET GT SCH ×2 (08:27→20:49)
[2020-05-29] MEDS: HYDROGEN PEROXIDE 3% 118 ML BOTTLE TOP SCH ×2 (08:32→21:24)
[2020-05-29] MEDS: MAGNESIUM OXIDE 400 MG TABLET GT SCH (20:49)
[2020-05-29] MEDS: MULTIVIT, IRON, MIN NO. 8, FA TABLET GT SCH (20:49)
[2020-05-29 23:02] VITALS: BP 130/80
[2020-05-30] MEDS: OMEPRAZOLE 40MG GT SCH (05:14)
[2020-05-30 07:37] VITALS: BP 120/76
[2020-05-30] MEDS: ASPIRIN 81 MG TAB.CHEW GT SCH (08:51)
[2020-05-30] MEDS: PHENOBARBITAL 30 MG/7.5 ML LIQUID UDC GT SCH ×2 (08:53→20:37)
[2020-05-30] MEDS: PROTEIN SUPPLEMENT (PROSTAT) 30 ML LIQUID GT SCH ×2 (08:53→20:37)
[2020-05-30] MEDS: levETIRAcetam 500 MG/5 ML LIQUID UDC GT SCH ×2 (08:53→20:37)
[2020-05-30] MEDS: COD LIVER OIL/ZINC OXIDE OINT 113 GM TUBE TP SCH ×2 (08:53→21:25)
[2020-05-30] MEDS: DIAZEPAM 5 MG TABLET GT SCH ×2 (08:53→20:38)
[2020-05-30] MEDS: AMIODARONE HCL 200 MG TABLET GT SCH (08:53)
[2020-05-30] MEDS: METOPROLOL TARTRATE 25 MG TABLET GT SCH ×2 (08:53→20:37)
[2020-05-30] MEDS: ASCORBIC ACID 500 MG TABLET PO SCH ×2 (08:53→20:38)
[2020-05-30] MEDS: HYDROGEN PEROXIDE 3% 118 ML BOTTLE TOP SCH ×2 (10:26→21:33)
--- NOTE | 2020-05-30 12:41 | NUR ---
PT. WAS SEEN NAD EXAMINED BY FLASH Mclaughlin AND WITH NEW ORDERS CARRIED OUT.
--- NOTE | 2020-05-30 12:46 | NUR ---
FLASH Mclaughlin WAS AWARE OF PT'S F/C FEW DAYS AFTER BEING CHANGED PT.'S URINE SLOWLY BECOME WITH INCREASING SEDIMENTS AND AT TIMES WITH BROWNISH COLOR,PT. REMAINS AFEBRILE AND WITH OUT ANY DISTRESS.
--- NOTE | 2020-05-30 18:48 | NUR ---
NEW ORDER WAS CARRIED OUT FROM DR. TOLBERT FOR COVID19 TEST PER [facility] REQUIREMENT. PT'S FATHER IN AGREEMENT.
[2020-05-30] MEDS: MAGNESIUM OXIDE 400 MG TABLET GT SCH (20:36)
[2020-05-30] MEDS: MULTIVIT, IRON, MIN NO. 8, FA TABLET GT SCH (20:37)
[2020-05-30 20:53] VITALS: BP 131/71
[2020-05-30] MEDS: VITAL AF 1.2 1,000 ML LIQUID GT PRN (21:25)
[2020-05-31] MEDS: OMEPRAZOLE 40MG GT SCH (05:09)
[2020-05-31 07:25] LABS: BASOPHILS % (AUTO) 0.7 % (0.0-2.0); EOSINOPHILS # (AUTO) 0.1 K/uL (0.0-0.7); EOSINOPHILS % (AUTO) 3.5 % (0.0-7.0); HEMATOCRIT 28.4 % (31.2-41.9); HEMOGLOBIN 9.7 g/dL (10.9-14.3); LYMPHOCYTES # (AUTO) 1.3 K/uL (20.0-40.0); MEAN CORPUSCULAR HEMOGLOBIN 29.9 uug (24.7-32.8); MEAN CORPUSCULAR HGB CONC 34 g/dL (32.3-35.6); MEAN CORPUSCULAR VOLUME 87.5 fL (75.5-95.3); MONOCYTES # (AUTO) 0.4 K/uL (2.0-10.0); NEUTROPHILS # (AUTO) 1.9 K/uL (1.8-8.9); NEUTROPHILS % (AUTO) 51.8 % (38.5-71.5); PLATELET COUNT (AUTO) 158 K/uL (179-408); RED BLOOD CELL COUNT(AUTO) 3.24 MIL/uL (3.63-4.92); WHITE BLOOD COUNT (AUTO) 3.7 K/uL (3.8-11.8)
[2020-05-31 07:35] VITALS: BP 100/61
[2020-05-31 07:43] LABS: BILIRUBIN,TOTAL 0.2 mg/dL (0.2-1.0); CREATININE 0.5 mg/dL (0.6-1.3); TOTAL PROTEIN, SERUM 7.1 g/dL (6.4-8.2)
[2020-05-31] MEDS: HYDROGEN PEROXIDE 3% 118 ML BOTTLE TOP SCH ×2 (07:44→21:46)
[2020-05-31] MEDS: ASPIRIN 81 MG TAB.CHEW GT SCH (08:28)
[2020-05-31] MEDS: levETIRAcetam 500 MG/5 ML LIQUID UDC GT SCH ×2 (08:29→21:24)
[2020-05-31] MEDS: AMIODARONE HCL 200 MG TABLET GT SCH (08:29)
[2020-05-31] MEDS: ASCORBIC ACID 500 MG TABLET PO SCH ×2 (08:30→21:27)
[2020-05-31] MEDS: DIAZEPAM 5 MG TABLET GT SCH ×2 (08:30→21:27)
[2020-05-31] MEDS: PHENOBARBITAL 30 MG/7.5 ML LIQUID UDC GT SCH ×2 (08:30→21:26)
[2020-05-31] MEDS: COD LIVER OIL/ZINC OXIDE OINT 113 GM TUBE TP SCH ×2 (08:30→21:27)
[2020-05-31] MEDS: METOPROLOL TARTRATE 25 MG TABLET GT SCH ×2 (08:30→21:25)
[2020-05-31] MEDS: PROTEIN SUPPLEMENT (PROSTAT) 30 ML LIQUID GT SCH ×2 (08:30→21:26)
[2020-05-31 20:00] VITALS: BP 127/78
[2020-05-31] MEDS: MAGNESIUM OXIDE 400 MG TABLET GT SCH (21:25)
[2020-05-31] MEDS: MULTIVIT, IRON, MIN NO. 8, FA TABLET GT SCH (21:26)
[2020-06-01] MEDS: OMEPRAZOLE 40MG GT SCH (05:44)
[2020-06-01 07:39] VITALS: BP 114/60
[2020-06-01] MEDS: HYDROGEN PEROXIDE 3% 118 ML BOTTLE TOP SCH ×2 (08:02→21:49)
[2020-06-01] MEDS: ASPIRIN 81 MG TAB.CHEW GT SCH (08:05)
[2020-06-01] MEDS: levETIRAcetam 500 MG/5 ML LIQUID UDC GT SCH ×2 (08:08→20:37)
[2020-06-01] MEDS: AMIODARONE HCL 200 MG TABLET GT SCH (08:08)
[2020-06-01] MEDS: PHENOBARBITAL 30 MG/7.5 ML LIQUID UDC GT SCH ×2 (08:10→20:59)
[2020-06-01] MEDS: COD LIVER OIL/ZINC OXIDE OINT 113 GM TUBE TP SCH ×2 (08:10→20:40)
[2020-06-01] MEDS: DIAZEPAM 5 MG TABLET GT SCH ×2 (08:10→20:40)
[2020-06-01] MEDS: PROTEIN SUPPLEMENT (PROSTAT) 30 ML LIQUID GT SCH ×2 (08:10→20:38)
[2020-06-01] MEDS: METOPROLOL TARTRATE 25 MG TABLET GT SCH ×2 (08:10→20:38)
[2020-06-01] MEDS: ASCORBIC ACID 500 MG TABLET PO SCH ×2 (08:10→20:40)
--- NOTE | 2020-06-01 10:57 | NUR ---
WOUND CARE CONSULT: PT SEEN FOR HYPERGRANULATION TISSUE AT G TUBE SITE. RECOMMEND SURGICAL CONSULT. DR NAZARIO FARMER NOTIFIED OF CONSULT REQUEST. DISCUSSED WITH NURSING STAFF. MD IN AGREEMENT WITH PLAN OF CARE.
[2020-06-01] MEDS: VITAL AF 1.2 1,000 ML LIQUID GT PRN (15:10)
--- NOTE | 2020-06-01 18:37 | NUR ---
Seen by Dr Lora with new orders to F/u With Surgery consult for Gt site granulation.
[2020-06-01 20:31] VITALS: BP 123/84
[2020-06-01] MEDS: MAGNESIUM OXIDE 400 MG TABLET GT SCH (20:38)
[2020-06-01] MEDS: MULTIVIT, IRON, MIN NO. 8, FA TABLET GT SCH (20:39)
[2020-06-02] MEDS: OMEPRAZOLE 40MG GT SCH (05:23)
[2020-06-02 07:37] VITALS: BP 127/69
[2020-06-02] MEDS: ASPIRIN 81 MG TAB.CHEW GT SCH (08:46)
[2020-06-02] MEDS: AMIODARONE HCL 200 MG TABLET GT SCH (08:46)
[2020-06-02] MEDS: COD LIVER OIL/ZINC OXIDE OINT 113 GM TUBE TP SCH ×2 (08:47→20:35)
[2020-06-02] MEDS: PHENOBARBITAL 30 MG/7.5 ML LIQUID UDC GT SCH ×2 (08:47→20:34)
[2020-06-02] MEDS: levETIRAcetam 500 MG/5 ML LIQUID UDC GT SCH ×2 (08:47→20:29)
[2020-06-02] MEDS: DIAZEPAM 5 MG TABLET GT SCH ×2 (08:47→20:35)
[2020-06-02] MEDS: METOPROLOL TARTRATE 25 MG TABLET GT SCH ×2 (08:47→20:32)
[2020-06-02] MEDS: PROTEIN SUPPLEMENT (PROSTAT) 30 ML LIQUID GT SCH ×2 (08:47→20:34)
[2020-06-02] MEDS: ASCORBIC ACID 500 MG TABLET PO SCH ×2 (08:47→20:35)
[2020-06-02] MEDS: HYDROGEN PEROXIDE 3% 118 ML BOTTLE TOP SCH ×2 (09:15→21:04)
[2020-06-02] MEDS: VITAL AF 1.2 1,000 ML LIQUID GT PRN (16:18)
[2020-06-02 20:00] VITALS: BP 127/73
[2020-06-02] MEDS: MAGNESIUM OXIDE 400 MG TABLET GT SCH (20:33)
[2020-06-02] MEDS: MULTIVIT, IRON, MIN NO. 8, FA TABLET GT SCH (20:35)
[2020-06-03] MEDS: OMEPRAZOLE 40MG GT SCH (05:43)
[2020-06-03 07:32] VITALS: BP_SYST 119; BP_SYST 124; BP_DIAS 64; BP_DIAS 74
[2020-06-03] MEDS: ASCORBIC ACID 500 MG TABLET PO SCH ×2 (08:37→20:53)
[2020-06-03] MEDS: levETIRAcetam 500 MG/5 ML LIQUID UDC GT SCH ×2 (08:37→20:52)
[2020-06-03] MEDS: AMIODARONE HCL 200 MG TABLET GT SCH (08:37)
[2020-06-03] MEDS: PHENOBARBITAL 30 MG/7.5 ML LIQUID UDC GT SCH ×2 (08:37→20:53)
[2020-06-03] MEDS: COD LIVER OIL/ZINC OXIDE OINT 113 GM TUBE TP SCH ×2 (08:37→20:53)
[2020-06-03] MEDS: METOPROLOL TARTRATE 25 MG TABLET GT SCH ×2 (08:37→20:52)
[2020-06-03] MEDS: DIAZEPAM 5 MG TABLET GT SCH ×2 (08:37→20:53)
[2020-06-03] MEDS: PROTEIN SUPPLEMENT (PROSTAT) 30 ML LIQUID GT SCH ×2 (08:37→20:53)
[2020-06-03] MEDS: ASPIRIN 81 MG TAB.CHEW GT SCH (08:37)
[2020-06-03] MEDS: HYDROGEN PEROXIDE 3% 118 ML BOTTLE TOP SCH ×2 (09:00→21:28)
[2020-06-03 20:35] VITALS: BP 135/74
[2020-06-03] MEDS: MAGNESIUM OXIDE 400 MG TABLET GT SCH (20:52)
[2020-06-03] MEDS: MULTIVIT, IRON, MIN NO. 8, FA TABLET GT SCH (20:53)
[2020-06-04] MEDS: OMEPRAZOLE 40MG GT SCH (06:28)
[2020-06-04 07:40] VITALS: BP 122/63
[2020-06-04] MEDS: ASPIRIN 81 MG TAB.CHEW GT SCH (09:34)
[2020-06-04] MEDS: levETIRAcetam 500 MG/5 ML LIQUID UDC GT SCH ×2 (09:47→20:19)
[2020-06-04] MEDS: AMIODARONE HCL 200 MG TABLET GT SCH (09:47)
[2020-06-04] MEDS: METOPROLOL TARTRATE 25 MG TABLET GT SCH ×2 (09:48→20:19)
[2020-06-04] MEDS: ASCORBIC ACID 500 MG TABLET PO SCH ×2 (09:49→20:20)
[2020-06-04] MEDS: PROTEIN SUPPLEMENT (PROSTAT) 30 ML LIQUID GT SCH ×2 (09:49→20:20)
[2020-06-04] MEDS: DIAZEPAM 5 MG TABLET GT SCH ×2 (09:49→20:20)
[2020-06-04] MEDS: PHENOBARBITAL 30 MG/7.5 ML LIQUID UDC GT SCH ×2 (09:49→20:20)
[2020-06-04] MEDS: COD LIVER OIL/ZINC OXIDE OINT 113 GM TUBE TP SCH ×2 (09:49→20:21)
[2020-06-04] MEDS: HYDROGEN PEROXIDE 3% 118 ML BOTTLE TOP SCH ×2 (10:20→21:24)
[2020-06-04] MEDS: VITAL AF 1.2 1,000 ML LIQUID GT PRN (13:17)
[2020-06-04] MEDS: MAGNESIUM OXIDE 400 MG TABLET GT SCH (20:19)
[2020-06-04] MEDS: MULTIVIT, IRON, MIN NO. 8, FA TABLET GT SCH (20:20)
[2020-06-04 20:41] VITALS: BP 108/58
--- NOTE | 2020-06-04 23:32 | NUR ---
Pt received on HT-50 ventilator with the following settings of AC-14, Vt-500, PEEP+5, FIO2-30%, trached with Shiley#8 DCT trach, which is in the place and secure. No s/s of respiratory distress noted. Airway care done, pt responded to physical stimuli. Resus. bag and back up trach at bedside. Vent and alarms checked and reset.
[2020-06-05] MEDS: OMEPRAZOLE 40MG GT SCH (05:23)
[2020-06-05 08:00] VITALS: BP 112/79
[2020-06-05 08:07] VITALS: BP 117/79
[2020-06-05] MEDS: HYDROGEN PEROXIDE 3% 118 ML BOTTLE TOP SCH ×2 (09:25→21:21)
[2020-06-05] MEDS: ASPIRIN 81 MG TAB.CHEW GT SCH (09:40)
[2020-06-05] MEDS: AMIODARONE HCL 200 MG TABLET GT SCH (09:40)
[2020-06-05] MEDS: levETIRAcetam 500 MG/5 ML LIQUID UDC GT SCH ×2 (09:41→21:12)
[2020-06-05] MEDS: PHENOBARBITAL 30 MG/7.5 ML LIQUID UDC GT SCH ×2 (09:42→21:12)
[2020-06-05] MEDS: PROTEIN SUPPLEMENT (PROSTAT) 30 ML LIQUID GT SCH ×2 (09:42→21:12)
[2020-06-05] MEDS: DIAZEPAM 5 MG TABLET GT SCH ×2 (09:42→21:12)
[2020-06-05] MEDS: METOPROLOL TARTRATE 25 MG TABLET GT SCH ×2 (09:42→21:12)
[2020-06-05] MEDS: ASCORBIC ACID 500 MG TABLET PO SCH ×2 (09:43→21:12)
[2020-06-05] MEDS: COD LIVER OIL/ZINC OXIDE OINT 113 GM TUBE TP SCH ×2 (09:43→21:13)
[2020-06-05] MEDS: VITAL AF 1.2 1,000 ML LIQUID GT PRN (09:47)
--- NOTE | 2020-06-05 13:00 | NUR ---
Seen and examined by Dr Moore,no new orders noted.
[2020-06-05 20:30] VITALS: BP 116/62
[2020-06-05] MEDS: MAGNESIUM OXIDE 400 MG TABLET GT SCH (21:12)
[2020-06-05] MEDS: MULTIVIT, IRON, MIN NO. 8, FA TABLET GT SCH (21:12)
[2020-06-06] MEDS: OMEPRAZOLE 40MG GT SCH (05:40)
[2020-06-06] MEDS: ASPIRIN 81 MG TAB.CHEW GT SCH (08:04)
[2020-06-06] MEDS: AMIODARONE HCL 200 MG TABLET GT SCH (08:06)
[2020-06-06] MEDS: levETIRAcetam 500 MG/5 ML LIQUID UDC GT SCH ×2 (08:07→20:41)
[2020-06-06] MEDS: PHENOBARBITAL 30 MG/7.5 ML LIQUID UDC GT SCH ×2 (08:07→20:43)
[2020-06-06] MEDS: METOPROLOL TARTRATE 25 MG TABLET GT SCH ×2 (08:07→20:49)
[2020-06-06] MEDS: ASCORBIC ACID 500 MG TABLET PO SCH ×2 (08:08→20:43)
[2020-06-06] MEDS: COD LIVER OIL/ZINC OXIDE OINT 113 GM TUBE TP SCH ×2 (08:08→20:43)
[2020-06-06] MEDS: DIAZEPAM 5 MG TABLET GT SCH ×2 (08:08→20:43)
[2020-06-06] MEDS: PROTEIN SUPPLEMENT (PROSTAT) 30 ML LIQUID GT SCH ×2 (08:08→20:43)
[2020-06-06 08:10] VITALS: BP 118/62
[2020-06-06] MEDS: HYDROGEN PEROXIDE 3% 118 ML BOTTLE TOP SCH ×2 (09:27→21:39)
[2020-06-06] MEDS: MAGNESIUM OXIDE 400 MG TABLET GT SCH (20:43)
[2020-06-06] MEDS: MULTIVIT, IRON, MIN NO. 8, FA TABLET GT SCH (20:43)
[2020-06-06 23:00] VITALS: BP 134/83
[2020-06-07] MEDS: OMEPRAZOLE 40MG GT SCH (05:11)
[2020-06-07] MEDS: ASPIRIN 81 MG TAB.CHEW GT SCH (08:43)
[2020-06-07] MEDS: AMIODARONE HCL 200 MG TABLET GT SCH (08:44)
[2020-06-07 08:45] VITALS: BP 149/78
[2020-06-07] MEDS: PROTEIN SUPPLEMENT (PROSTAT) 30 ML LIQUID GT SCH ×2 (08:45→20:41)
[2020-06-07] MEDS: levETIRAcetam 500 MG/5 ML LIQUID UDC GT SCH ×2 (08:45→20:40)
[2020-06-07] MEDS: COD LIVER OIL/ZINC OXIDE OINT 113 GM TUBE TP SCH ×2 (08:45→20:42)
[2020-06-07] MEDS: PHENOBARBITAL 30 MG/7.5 ML LIQUID UDC GT SCH ×2 (08:45→20:41)
[2020-06-07] MEDS: ASCORBIC ACID 500 MG TABLET PO SCH ×2 (08:45→20:42)
[2020-06-07] MEDS: DIAZEPAM 5 MG TABLET GT SCH ×2 (08:45→20:42)
[2020-06-07] MEDS: METOPROLOL TARTRATE 25 MG TABLET GT SCH ×2 (08:45→20:41)
[2020-06-07] MEDS: HYDROGEN PEROXIDE 3% 118 ML BOTTLE TOP SCH ×2 (08:46→21:02)
--- NOTE | 2020-06-07 15:48 | NUR ---
INTERDISCIPLINARY PLAN OF CARE CONFERENCE was held today. Patient's family was not available participate in the meeting. Dr. Lora and the Interdisciplinary team reviewed the current plan of care in detail. RN reported on the patient's medical condition and stated that patient has a pending surgery consult. No major changes in condition were reported by RN or by the other disciplines. See RN IDT conference notes. See also all other disciplines IDT notes and physician's progress notes for additional details.
[2020-06-07 20:03] VITALS: BP 122/77
[2020-06-07] MEDS: MULTIVIT, IRON, MIN NO. 8, FA TABLET GT SCH (20:41)
[2020-06-07] MEDS: MAGNESIUM OXIDE 400 MG TABLET GT SCH (20:41)
[2020-06-08] MEDS: OMEPRAZOLE 40MG GT SCH (05:06)
[2020-06-08 06:30] VITALS: BP 174/92
--- NOTE | 2020-06-08 06:55 | NUR ---
101.8,159,174/92,o2 sat 98%, roldan figueroa n.p. called and notified temp and vital signs,ordered cbc,bmp,blood culturex2, chest x-ray, u/a, urine culture ordered.voss catheter patent,draining clear yellow urine, abdomen soft, had 2 large loose stool, respiratory therapist called to check on pt. Addendum: 06/08/20 at 0717 by BRENTON MCLEOD RN roldan figueroa probation officer for dr carey.
[2020-06-08 07:15] VITALS: BP 145/84
[2020-06-08] MEDS: ACETAMINOPHEN 650 MG/20 ML UDC- SA PATIENTS-FEVER ONLY GT PRN (08:15)
[2020-06-08] MEDS: ASPIRIN 81 MG TAB.CHEW GT SCH (08:54)
[2020-06-08] MEDS: levETIRAcetam 500 MG/5 ML LIQUID UDC GT SCH ×2 (08:55→21:37)
[2020-06-08] MEDS: AMIODARONE HCL 200 MG TABLET GT SCH (08:55)
[2020-06-08] MEDS: DIAZEPAM 5 MG TABLET GT SCH ×2 (08:56→21:38)
[2020-06-08] MEDS: PROTEIN SUPPLEMENT (PROSTAT) 30 ML LIQUID GT SCH ×2 (08:56→21:38)
[2020-06-08] MEDS: ASCORBIC ACID 500 MG TABLET PO SCH ×2 (08:56→21:38)
[2020-06-08] MEDS: METOPROLOL TARTRATE 25 MG TABLET GT SCH ×2 (08:56→21:00)
[2020-06-08] MEDS: PHENOBARBITAL 30 MG/7.5 ML LIQUID UDC GT SCH ×2 (08:56→21:38)
[2020-06-08 09:02] LABS: CREATININE 1.1 mg/dL (0.6-1.3)
[2020-06-08] MEDS: HYDROGEN PEROXIDE 3% 118 ML BOTTLE TOP SCH ×2 (09:12→21:32)
[2020-06-08] MEDS: COD LIVER OIL/ZINC OXIDE OINT 113 GM TUBE TP SCH ×2 (09:18→21:38)
[2020-06-08 09:42] LABS: BASOPHILS % (AUTO) 0.5 % (0.0-2.0); EOSINOPHILS % (AUTO) 0.3 % (0.0-7.0); HEMATOCRIT 33.3 % (31.2-41.9); HEMOGLOBIN 11.4 g/dL (10.9-14.3); LYMPHOCYTES # (AUTO) 0.5 K/uL (20.0-40.0); LYMPHOCYTES % (AUTO) 13.6 % (20.5-51.5); MEAN CORPUSCULAR HEMOGLOBIN 30.2 uug (24.7-32.8); MEAN CORPUSCULAR HGB CONC 34 g/dL (32.3-35.6); MEAN CORPUSCULAR VOLUME 88.2 fL (75.5-95.3); MONOCYTES # (AUTO) 0.1 K/uL (2.0-10.0); MONOCYTES % (AUTO) 1.7 % (0.0-11.0); NEUTROPHILS % (AUTO) 83.9 % (38.5-71.5); PLATELET COUNT (AUTO) 88 K/uL (179-408); RED BLOOD CELL COUNT(AUTO) 3.78 MIL/uL (3.63-4.92); WHITE BLOOD COUNT (AUTO) 3.6 K/uL (3.8-11.8)
[2020-06-08 09:54] LABS: *BILIRUBIN,URIN NEGATIVE (NEGATIVE); *BLOOD, URINE 3+ (NEGATIVE); *CLARITY,URINE CLOUDY (CLEAR); *COLOR,URINE YELLOW (YELLOW); *KETONES,URINE NEGATIVE (NEGATIVE); *UROBILINOGEN,URINE 0.2 E.U./dl (NORMAL); LEUKOCYTE ESTERASE ,URINE 3+ (NEGATIVE); NITRITE, URINE POSITIVE (NEGATIVE); UGLUCOSE NEGATIVE (NEGATIVE)
[2020-06-08 11:46] VITALS: BP 107/68
[2020-06-08 18:02] VITALS: BP 98/56
--- NOTE | 2020-06-08 18:36 | NUR ---
Seen and examined by Dr Lora with new orders to start iv fluids and Rocephin 1 Gm ivpb daily X 7 days,cbc ,bmp ,po4,mg in am.
[2020-06-08 18:45] LABS: BACTERIA,URINE MODERATE /HPF (NONE SEEN); RBC,URINE 50-80 /HPF (0-3); SQUAMOUS EPITHELIAL CELL,UR FEW /HPF (NONE SEEN); WBC,URINE TNTC /HPF (0-3)
[2020-06-08] MEDS ORDERED: POTASSIUM CHLORIDE 20 MEQ in IV D5 1/2 NS 1000 ML 1,000 ML IV PRN (19:15)
[2020-06-08] MEDS ORDERED: CEFTRIAXONE 1 G in IV DEXTROSE 5% 50 ML IV SCH (20:00)
[2020-06-08 20:39] VITALS: BP 84/49
[2020-06-08] MEDS: MAGNESIUM OXIDE 400 MG TABLET GT SCH (21:37)
[2020-06-08] MEDS: MULTIVIT, IRON, MIN NO. 8, FA TABLET GT SCH (21:38)
[2020-06-09] MEDS: VITAL AF 1.2 1,000 ML LIQUID GT PRN (02:00)
[2020-06-09 04:00] VITALS: BP 89/52
[2020-06-09] MEDS: OMEPRAZOLE 40MG GT SCH (06:00)
[2020-06-09 07:16] LABS: CREATININE 2.1 mg/dL (0.6-1.3); MAGNESIUM 1.9 mg/dL (1.8-2.4); PHOSPHOROUS 1.7 mg/dL (2.5-4.9); POTASSIUM 3.7 mmol/L (3.5-5.1)
[2020-06-09 07:24] LABS: BASOPHILS % (AUTO) 0.2 % (0.0-2.0); EOSINOPHILS % (AUTO) 0.2 % (0.0-7.0); HEMATOCRIT 27.2 % (31.2-41.9); HEMOGLOBIN 9.7 g/dL (10.9-14.3); LYMPHOCYTES # (AUTO) 0.3 K/uL (20.0-40.0); LYMPHOCYTES % (AUTO) 3.3 % (20.5-51.5); MEAN CORPUSCULAR HEMOGLOBIN 30.8 uug (24.7-32.8); MEAN CORPUSCULAR HGB CONC 36 g/dL (32.3-35.6); MEAN CORPUSCULAR VOLUME 86.3 fL (75.5-95.3); MONOCYTES # (AUTO) 0.4 K/uL (2.0-10.0); MONOCYTES % (AUTO) 4.2 % (0.0-11.0); NEUTROPHILS # (AUTO) 8.9 K/uL (1.8-8.9); NEUTROPHILS % (AUTO) 92.1 % (38.5-71.5); RED BLOOD CELL COUNT(AUTO) 3.15 MIL/uL (3.63-4.92); WHITE BLOOD COUNT (AUTO) 9.7 K/uL (3.8-11.8)
[2020-06-09 07:36] LABS: PLATELET COUNT (AUTO) 49 K/uL (179-408)
[2020-06-09] MEDS: HYDROGEN PEROXIDE 3% 118 ML BOTTLE TOP SCH (08:01)
[2020-06-09 08:28] VITALS: BP 74/40
--- NOTE | 2020-06-09 08:46 | NUR ---
DR. TOLBERT WAS PAGED TO F/U TEMP 101 F,HR 119X',RR 18X',O2 99%,B/P 81/50.P/A 0/10.ABNORMAL LAB RESULTS.
[2020-06-09 08:51] VITALS: BP 81/50
[2020-06-09 09:00] VITALS: BP 81/50
[2020-06-09] MEDS: AMIODARONE HCL 200 MG TABLET GT SCH (09:00)
[2020-06-09] MEDS: ASPIRIN 81 MG TAB.CHEW GT SCH (09:00)
[2020-06-09] MEDS: METOPROLOL TARTRATE 25 MG TABLET GT SCH (09:00)
[2020-06-09] MEDS: levETIRAcetam 500 MG/5 ML LIQUID UDC GT SCH (09:13)
[2020-06-09] MEDS: PROTEIN SUPPLEMENT (PROSTAT) 30 ML LIQUID GT SCH (09:16)
[2020-06-09] MEDS: PHENOBARBITAL 30 MG/7.5 ML LIQUID UDC GT SCH (09:16)
[2020-06-09] MEDS: DIAZEPAM 5 MG TABLET GT SCH (09:16)
[2020-06-09] MEDS: ASCORBIC ACID 500 MG TABLET PO SCH (09:16)
[2020-06-09] MEDS: COD LIVER OIL/ZINC OXIDE OINT 113 GM TUBE TP SCH (09:16)
[2020-06-09] MEDS: ACETAMINOPHEN 650 MG/20 ML UDC- SA PATIENTS-FEVER ONLY GT PRN (09:17)
--- NOTE | 2020-06-09 09:22 | NUR ---
DR. ARSHAD WAS CALLED AND ALSO AWARE OF PT'S LATEST CONDITION ,ABNORMAL LABS AND V/S AND WITH NEW ORDER TO TRANSFER TO ER TO BE EVALUATED FOR SEPSIS.,PT'S FATHER AWARE AND IN AGREEMENT.
--- NOTE | 2020-06-09 09:26 | NUR ---
ER NURSE CYNDI WAS CALLED AND REPORT WAS GIVEN TO HER AND ALSO BOTTOM WHEELER RAMIRO MADE AWARE.
--- NOTE | 2020-06-09 09:54 | NUR ---
PT. TRANSFERRED TO ER AT THIS TIME , REPORT WAS GIVEN TO MALATHI RN'S. BED HOLD FOR 7 DAYS.
--- NOTE | 2020-06-09 10:00 | NUR ---
PT TRANSFERRED TO ER WITH HT 50 VENT FOR POSSIBLE SEPSIS. WILL CONTINUE TO MONITOR.
[2020-06-09] MEDS ORDERED: POTA10CA43 IV (10:13)
[2020-06-09] MEDS ORDERED: AMIN30LI2 GT (10:13)
[2020-06-09] MEDS ORDERED: CEFT1VIA15 IV (10:13)
[2020-06-09 16:54] LABS: BAND % (MANUAL) 14 % (0-10); LYMPHOCYTES % (MANUAL) 3 % (20-40); MONOCYTES % (MANUAL) 1 % (2-10); NEUTROPHILS % (MANUAL) 82 % (42-75)
== END 2020-06-09 16:29 | disposition short-term general hospital (02) | DRG 130 ==
LOC: SA
PROVIDERS: ADMIT Internal Medicine Pulmonary Disease; ATTEND Internal Medicine
PROC: 5A1955Z Respiratory Ventilation, Greater than 96 Consecutive Hours (ICD-10-PCS; principal; 2019-08-12)
DX: J96.21 Acute and chronic respiratory failure with hypoxia (principal); E43 Unspecified severe protein-calorie malnutrition; G93.40 Encephalopathy, unspecified; D68.59 Other primary thrombophilia; N39.0 Urinary tract infection, site not specified; B96.20 Unspecified Escherichia coli [E. coli] as the cause of diseases classified elsewhere; Z16.12 Extended spectrum beta lactamase (ESBL) resistance; D50.9 Iron deficiency anemia, unspecified; E78.5 Hyperlipidemia, unspecified; I10 Essential (primary) hypertension; I48.0 Paroxysmal atrial fibrillation; R13.10 Dysphagia, unspecified; L89.156 Pressure-induced deep tissue damage of sacral region; I69.251 Hemiplegia and hemiparesis following other nontraumatic intracranial hemorrhage affecting right dominant side; Z79.899 Other long term (current) drug therapy; Z87.01 Personal history of pneumonia (recurrent); Z93.0 Tracheostomy status; Z99.11 Dependence on respirator [ventilator] status; J98.11 Atelectasis; L30.4 Erythema intertrigo; L60.0 Ingrowing nail; Z93.1 Gastrostomy status; E83.42 Hypomagnesemia; E87.1 Hypo-osmolality and hyponatremia; E87.6 Hypokalemia; G40.909 Epilepsy, unspecified, not intractable, without status epilepticus
CPT/HCPCS: 36415; 70030-TC; 71045; 74018; 76700; 80184; 83550; 83735; 84100; 84443; 84520; 85025; 87040; 87070; 87077; 87086; 90686; 94002; 94003; A4663; C1758; J0278; J0692; J0696; J1580; J2185; J3370; J3480; J3490; J7060; Q0162; U0003

== ENCOUNTER 2019-11-21 18:48 | Inpatient (IN) | payer OTHER ==
[~2019-11-21] VITALS: Ht 162.6 cm; Wt 73.5 kg
[2019-11-21] VITALS (7 sets, daily range): BP systolic 83–179; BP diastolic 57–104
--- NOTE | 2019-11-21 18:48 | NUR ---
Dr Cox and RN Alton@bedside,"FULL PPE", r/o COVID-19 per our doctor, patient with open eyes, not tracking, chronic trach to ventilator from sub acute unit (4th floor), unresponsive to painful stimuli, skin warm and dry, hypotensive & febrile per sub acute nurse.
[2019-11-21] MEDS ORDERED: NOREPINEPHRINE BITARTRATE 8 MG in IV NORMAL SALINE 242 ML IV PRN ×2 (19:00→20:00)
--- NOTE | 2019-11-21 19:16 | NUR ---
Call placed to [facility] for admission. Dr. Flynn will call back. Awaiting call.
--- NOTE | 2019-11-21 19:36 | NUR ---
1936pm: Levophed drip@0.2mcg/wolf/min, current MAP=70, Dr Cox is aware.
[2019-11-21 19:37] LABS: BASOPHILS % (AUTO) 0.1 % (0.0-2.0); EOSINOPHILS % (AUTO) 0.5 % (0.0-7.0); HEMATOCRIT 22.7 % (31.2-41.9); HEMOGLOBIN 7.8 g/dL (10.9-14.3); LYMPHOCYTES # (AUTO) 0.2 K/uL (20.0-40.0); LYMPHOCYTES % (AUTO) 2.6 % (20.5-51.5); MEAN CORPUSCULAR HEMOGLOBIN 30.5 uug (24.7-32.8); MEAN CORPUSCULAR HGB CONC 35 g/dL (32.3-35.6); MEAN CORPUSCULAR VOLUME 88.6 fL (75.5-95.3); MONOCYTES # (AUTO) 0.2 K/uL (2.0-10.0); MONOCYTES % (AUTO) 3.7 % (0.0-11.0); NEUTROPHILS # (AUTO) 6.1 K/uL (1.8-8.9); NEUTROPHILS % (AUTO) 93.1 % (38.5-71.5); PLATELET COUNT (AUTO) 86 K/uL (179-408); RED BLOOD CELL COUNT(AUTO) 2.57 MIL/uL (3.63-4.92); WHITE BLOOD COUNT (AUTO) 6.5 K/uL (3.8-11.8)
--- NOTE | 2019-11-21 19:37 | NUR ---
Hands off report given to JEFFERY Martinez & JEFFERY Dang
--- NOTE | 2019-11-21 19:41 | NUR ---
Called CCU for bed. CCU Bed 3 and Arik will be RN assigned.
[2019-11-21] MEDS ORDERED: AZITHROMYCIN IV 500 MG in IV DEXTROSE 5% 250 ML IV ONE (19:45)
[2019-11-21] MEDS ORDERED: IV NORMAL SALINE 500 ML IV ONE (19:45)
[2019-11-21] MEDS ORDERED: IV NS 1000 ML 1,000 ML IV ONE (19:45)
[2019-11-21 19:47] LABS: *BLOOD, URINE 3+ (NEGATIVE); *CLARITY,URINE CLOUDY (CLEAR); *COLOR,URINE Brown (YELLOW); *KETONES,URINE NEGATIVE (NEGATIVE); *UROBILINOGEN,URINE 0.2 E.U./dl (NORMAL); LEUKOCYTE ESTERASE ,URINE 2+ (NEGATIVE); NITRITE, URINE NEGATIVE (NEGATIVE); PH,URINE 5.5 (5.0-8.0); UGLUCOSE NEGATIVE (NEGATIVE)
--- NOTE | 2019-11-21 19:47 | NUR ---
Dr. Cox on panel call with Dr. Gee Tripathi. Patient accepted for admission to CCU, diagnosis: septic shock.
[2019-11-21 19:52] LABS: BAND % (MANUAL) 20 % (0-10); LYMPHOCYTES % (MANUAL) 2 % (20-40); METAMYELOCYTES % 1 % (0-1); MONOCYTES % (MANUAL) 3 % (2-10); NEUTROPHILS % (MANUAL) 74 % (42-75)
[2019-11-21 19:58] LABS: BILIRUBIN,DIRECT 0.5 mg/dL (0.0-0.2); BILIRUBIN,TOTAL 0.8 mg/dL (0.2-1.0); CREATININE 1.3 mg/dL (0.6-1.3); POTASSIUM 2.9 mmol/L (3.5-5.1); TOTAL PROTEIN, SERUM 6.4 g/dL (6.4-8.2)
[2019-11-21 19:59] LABS: *BILIRUBIN,URIN 1+ (NEGATIVE)
[2019-11-21 20:00] LABS: BACTERIA,URINE FEW /HPF (NONE SEEN); RBC,URINE 50-80 /HPF (0-3); SQUAMOUS EPITHELIAL CELL,UR FEW /HPF (NONE SEEN); WBC,URINE 20-50 /HPF (0-3)
[2019-11-21] MEDS ORDERED: ACETAMINOPHEN GT PRN (20:00)
[2019-11-21] MEDS ORDERED: ALBUTEROL SULFATE 2.5 MG/3 ML NEBU NEB PRN (20:00)
[2019-11-21] MEDS ORDERED: AZITHROMYCIN 500MG/ D5W 250ML IVPB **ER PYXIS ONLY IV ONE (20:01)
[2019-11-21] MEDS: AZITHROMYCIN IV 500 MG in IV DEXTROSE 5% 250 ML IV SCH (20:17)
--- NOTE | 2019-11-21 20:23 | NUR ---
PT WAS TRANSFERED TO CCU ROOM #3. REPORT WAS GIVEN TO CCU RN.
[2019-11-21] MEDS ORDERED: MEROPENEM 1 G in IV NORMAL SALINE 100 ML IV SCH (20:45)
[2019-11-21] MEDS ORDERED: DIAZEPAM 10 MG TABLET GT SCH (21:00)
--- NOTE | 2019-11-21 21:00 | NUR ---
no seizure noted
[2019-11-21] MEDS ORDERED: MEROPENEM 1 G VIAL IV ONE (21:22)
[2019-11-21] MEDS ORDERED: VANCOMYCIN IV 200 ML ONE (21:24)
[2019-11-21] MEDS ORDERED: IV DEXTROSE 5% +20 MEQ KCL 1,000 ML IV ONE (21:26)
[2019-11-21] MEDS ORDERED: VANCOMYCIN IV 1,250 MG in IV DEXTROSE 5% 250 ML IV SCH (21:30)
[2019-11-21] MEDS ORDERED: VANCOMYCIN 1000 MG VIAL ONE (21:42)
[2019-11-21] MEDS ORDERED: VANCOMYCIN HCL 500 MG VIAL ONE (21:43)
[2019-11-21] MEDS: POTASSIUM CHLORIDE 20 MEQ in IV D5/ 0.9% NACL 1,000 ML IV PRN (22:24)
[2019-11-21] MEDS: levETIRAcetam 500 MG/5 ML LIQUID UDC GT SCH (23:00)
[2019-11-21] MEDS: PHENOBARBITAL 32.4 MG TABLET GT SCH (23:01)
[2019-11-21] MEDS: ACIDOPHILUS/BULGARICUS CHEW TAB GT SCH (23:01)
[2019-11-21] MEDS: ASCORBIC ACID 500 MG TABLET GT SCH (23:02)
[2019-11-21] MEDS ORDERED: levETIRAcetam 250 MG TABLET ONE ×2 (23:22→23:26)
[2019-11-21] MEDS ORDERED: DIAZEPAM 5 MG TABLET ONE (23:23)
[2019-11-21] MEDS ORDERED: NOREPINEPHRINE BITARTRATE 4 MG/4 ML VIAL IV ONE (23:50)
[2019-11-22] VITALS (94 sets, daily range): BP systolic 82–182; BP diastolic 53–104
--- NOTE | 2019-11-22 | NUR ---
no seizure noted
--- NOTE | 2019-11-22 02:00 | NUR ---
no seizure noted
--- NOTE | 2019-11-22 02:21 | NUR ---
seizure episode being monitored , vs being monitored and decrease in mental status Addendum: 11/22/19 at 0221 by DILIP MARCANO RN Amended: Links added.
--- NOTE | 2019-11-22 02:23 | NUR ---
intake and output being monitored , lab levels being monitored Addendum: 11/22/19 at 0223 by DILIP MARCANO RN Amended: Tasha hicks. Addendum: 11/22/19 at 0224 by DILIP MARCANO RN Amended: Tasha hicks.
--- NOTE | 2019-11-22 02:24 | NUR ---
dietary consult ordered , intake and out put being monitored Addendum: 11/22/19 at 0224 by DILIP MARCANO RN Amended: Links added.
--- NOTE | 2019-11-22 04:00 | NUR ---
no seizure noted
[2019-11-22] MEDS ORDERED: NOREPINEPHRINE BITARTRATE 4 MG/4 ML VIAL IV ONE (05:35)
--- NOTE | 2019-11-22 06:00 | NUR ---
no seizure noted
[2019-11-22 06:18] LABS: BASOPHILS # (AUTO) 0.1 K/uL (0.0-8.0); BASOPHILS % (AUTO) 0.4 % (0.0-2.0); EOSINOPHILS # (AUTO) 0.1 K/uL (0.0-0.7); EOSINOPHILS % (AUTO) 0.6 % (0.0-7.0); HEMATOCRIT 28.7 % (31.2-41.9); HEMOGLOBIN 9.6 g/dL (10.9-14.3); LYMPHOCYTES # (AUTO) 1.1 K/uL (20.0-40.0); LYMPHOCYTES % (AUTO) 8.1 % (20.5-51.5); MEAN CORPUSCULAR HEMOGLOBIN 29.7 uug (24.7-32.8); MEAN CORPUSCULAR HGB CONC 33 g/dL (32.3-35.6); MEAN CORPUSCULAR VOLUME 89.1 fL (75.5-95.3); NEUTROPHILS # (AUTO) 11.7 K/uL (1.8-8.9); NEUTROPHILS % (AUTO) 83.9 % (38.5-71.5); PLATELET COUNT (AUTO) 138 K/uL (179-408); RED BLOOD CELL COUNT(AUTO) 3.22 MIL/uL (3.63-4.92); WHITE BLOOD COUNT (AUTO) 13.9 K/uL (3.8-11.8)
[2019-11-22 06:31] LABS: BILIRUBIN,TOTAL 0.8 mg/dL (0.2-1.0); CREATININE 1.2 mg/dL (0.6-1.3); MAGNESIUM 1.9 mg/dL (1.8-2.4); PHOSPHOROUS 3.1 mg/dL (2.5-4.9); POTASSIUM 3.4 mmol/L (3.5-5.1); TOTAL PROTEIN, SERUM 7.3 g/dL (6.4-8.2)
--- NOTE | 2019-11-22 07:52 | NUR ---
Clinical Pharmacy Note: Vancomycin Dosing per Pharmacy Subjective: Vancomycin IV to start on this 59 yo female patient resident of subacute for fever (waiting for MD note) Objective: BUN 29/Scr 1.2 WBC 13.9 Temperature 98.6 Vanco random level on 11/21 with am labs: 33.8 ht 162 cm wt 73 kg Assessment/Plan: Patient was on vanco 750 mg iv q12h in subacute (dosed by [facility] Labre, vanco trough level on 11/20 was 18.7 mcg/ml. last dose given on 11/20 at 11am). Patient was transferred to ED,, Vanco 1250mg IVPB x1 dose given on 11/20 at 2230. Since There is an increase in srcr (from 0.8 on 11/19 to 1.2 today), check random level this am. Since vanco random level is 33.8 with am labs, no dose shall be due today. Will check vanco random level with am labs on 11/22. Pharmacy will review the level & dose as appropriate. Will follow daily.
[2019-11-22] MEDS: NOREPINEPHRINE BITARTRATE 8 MG in IV NORMAL SALINE 242 ML IV PRN (09:27)
[2019-11-22] MEDS: PHENOBARBITAL 32.4 MG TABLET GT SCH ×2 (09:54→21:01)
[2019-11-22] MEDS: ACIDOPHILUS/BULGARICUS CHEW TAB GT SCH ×2 (09:55→21:01)
[2019-11-22] MEDS: ASPIRIN 81 MG TAB.CHEW GT SCH (09:55)
[2019-11-22] MEDS: levETIRAcetam 500 MG/5 ML LIQUID UDC GT SCH ×2 (09:55→21:01)
[2019-11-22] MEDS: PANTOPRAZOLE ORAL SUSPENSION 40 MG SUSPDR.PKT GT SCH (09:55)
[2019-11-22] MEDS: ASCORBIC ACID 500 MG TABLET GT SCH ×2 (09:55→21:02)
[2019-11-22] MEDS: DIAZEPAM 10 MG TABLET GT SCH ×2 (09:55→21:02)
[2019-11-22] MEDS: MEROPENEM 1 G in IV NORMAL SALINE 100 ML IV SCH ×2 (09:56→23:53)
--- NOTE | 2019-11-22 10:00 | NUR ---
Pt remains obtunded.No seizure activity noted.Temperature remains WNL.Still on Levophed gtt to support BP.Seen,examined by .
[2019-11-22] MEDS: POTASSIUM CHLORIDE 50 ML IV SCH ×2 (13:25→14:23)
[2019-11-22] MEDS: POTASSIUM CHLORIDE 20 MEQ in IV D5/ 0.9% NACL 1,000 ML IV PRN (17:49)
[2019-11-22] MEDS: VITAL AF 1.2 1,000 ML LIQUID GT PRN (17:49)
--- NOTE | 2019-11-22 19:15 | NUR ---
Pt received on continuous mechanical ventilation via Shiley 8 DCT trach. Pt is on HT-50 vent with ordered settings of A/C-14, VT-500, PEEP+5, FIO2-30% Trach is patent and secured. Minimal occluding volume used to assess cuff inflation. Pt tolerating vent settings well. No signs or symptoms of respiratory distress noted. Sxn'd small amounts of thick white secretions. Vent alarm parameters checked, on and audible. Vent plugged into red emergency outlet. HME changed. PPE used. Will continue to monitor.
--- NOTE | 2019-11-22 19:20 | NUR ---
Received patient in bed positioned on the right side with HOB elevated. Patient has a tracheostomy shiley #8 with T-Piece vent settings AC 14, FIO2 30%, Vt 500, PEEP 5. Right femoral central line 3-lumen with D5 0.9% NS + 20mEq KCl @70ml/hr. GT in place and patent with Vital AF 1.2 @55mL/hr. Garland catheter in place patent draining clear liliana urine. Patient is suspected COVID-19 pending results of test. Special droplet precaution isolation in effect pending COVID-19 rule out.
--- NOTE | 2019-11-22 20:00 | NUR ---
Patient noted with periodic desaturation into the low 80s to high 70s, however it is noted that the reading on the SPO2 showed inconsistent heart rate reading in comparison to the ECG reading. Presumptive faulty reading by the oxygen sensor. New sensor tried with the same results. Consulted with RT and we felt it is best to err on the side of caution, and FiO2 was increased to 60%. Will continue to monitor.
[2019-11-22] MEDS: AZITHROMYCIN IV 500 MG in IV DEXTROSE 5% 250 ML IV SCH (21:02)
--- NOTE | 2019-11-22 21:15 | NUR ---
Pt FIO2 increased to 60% due to SpO2 fluctuating to low 80's intermittently. JEFFERY Hernandez notified.
[2019-11-22] MEDS: ACETAMINOPHEN 650 MG/20.3 ML LIQUID UDC GT PRN (21:24)
--- NOTE | 2019-11-22 21:30 | NUR ---
It is noted that the patient has increased agitation whenever someone is in the room. Patient was keenly aware of my presence and appeared to start trembling and her blood pressure began increasing while I was bedside administering her medications and rendering care. Patient may be experiencing increased anxiety due to our appearance with full PPE and PAPR. This was reinforced by the fact that her trembling stopped and her blood pressure began to lower as soon as I left the room. Seizure activity ruled out in this instance.
[2019-11-23] VITALS (96 sets, daily range): BP systolic 79–180; BP diastolic 45–127
--- NOTE | 2019-11-23 03:35 | NUR ---
Pulse-oximeter probe changed to ear. FIO2 decreased to 30%. Tolerating well. Pt SpO2 100%. JEFFERY Hernandez notified.
[2019-11-23] MEDS ORDERED: LORAZEPAM 2 MG/1 ML VIAL IV STA (04:23)
--- NOTE | 2019-11-23 04:30 | NUR ---
Patient experienced another bout of anxiety similar to what occurred around 1999 last night. This again occurred when RT went into the room. Blood pressure spiked up to 152/99 and heart rate increased to 131. Levophed was held completely at this point. 15 minutes later her blood pressure increased again to 172/94 and heart rate increased to 140. At this point i called [facility] and spoke with EFRAIN Leo and apprised him of the situation as well as the occurrence earlier in the shift. He ordered Lorazepam 0.5mg IV x1 now. Administered as ordered.
[2019-11-23] MEDS: ACETAMINOPHEN 650 MG/20.3 ML LIQUID UDC GT PRN ×2 (05:06→17:29)
[2019-11-23 05:53] LABS: MAGNESIUM 1.8 mg/dL (1.8-2.4); PHOSPHOROUS 1.5 mg/dL (2.5-4.9); POTASSIUM 3.4 mmol/L (3.5-5.1)
[2019-11-23] MEDS: PANTOPRAZOLE ORAL SUSPENSION 40 MG SUSPDR.PKT GT SCH (07:01)
--- NOTE | 2019-11-23 07:30 | NUR ---
RECIEVED PT LYING IN BED, OBTUNDED BUT OPENS EYES WITH PAINFUL STIMULI. STATUS QUO.
[2019-11-23] MEDS: ACIDOPHILUS/BULGARICUS CHEW TAB GT SCH ×2 (08:22→20:45)
[2019-11-23] MEDS: ASCORBIC ACID 500 MG TABLET GT SCH ×2 (08:22→20:46)
[2019-11-23] MEDS: ASPIRIN 81 MG TAB.CHEW GT SCH (08:22)
[2019-11-23] MEDS: DIAZEPAM 10 MG TABLET GT SCH ×2 (08:22→22:21)
[2019-11-23] MEDS: levETIRAcetam 500 MG/5 ML LIQUID UDC GT SCH ×2 (08:27→20:46)
[2019-11-23] MEDS: NOREPINEPHRINE BITARTRATE 8 MG in IV NORMAL SALINE 242 ML IV PRN ×2 (08:29→21:10)
[2019-11-23 08:42] LABS: ABG BASE EXCESS -3.4 mmol/L; ABG PCO2 40.9 mmHg (35.0-45.0); ABG PH 7.348 (7.350-7.450); ABG SITE LEFT RADIAL; ABG TOTAL HEMOGLOBIN 10.4 G/dL (12.0-16.0); COHb 0.7 % (0.5-1.5); MetHb 0.2 % (0.0-1.5); O2Hb 98.5 % (94.0-97.0); VENT MODE VENT - A/C; VT, ABG 500 mL
[2019-11-23] MEDS ORDERED: POTASSIUM PHOSPHATE MM 15 MMOL in IV NORMAL SALINE 250 ML IV ONE ×2 (09:30→11:00)
[2019-11-23] MEDS: MEROPENEM 1 G in IV NORMAL SALINE 100 ML IV SCH (10:09)
[2019-11-23] MEDS: PHENOBARBITAL 32.4 MG TABLET GT SCH ×2 (10:15→20:45)
[2019-11-23 10:36] LABS: VANCOMYCIN,RANDOM 20.5 ug/mL (18.0-26.0)
[2019-11-23] MEDS: VITAL AF 1.2 1,000 ML LIQUID GT PRN (10:47)
--- NOTE | 2019-11-23 11:39 | NUR ---
Clinical Pharmacy Note: Vancomycin Dosing per Pharmacy Subjective: Vancomycin IV to continue on this 59 yo female patient resident of [facility] for fever ( note:septic shock, UTI) Objective: BUN 24/Scr 1.0 WBC 13.9 (11/21) Temperature 101 Vanco random level on 11/21 with am labs: 33.8 Vanco random level on with am labs at 0440:20.5 ht 162 cm wt 73 kg Assessment/Plan: Since Vancomycin random is borderline high, will give next dose today at 1600(12 hrs post level). Rx will check am labs and decide next random accordingly. Will follow daily. Addendum: 11/23/19 at 1146 by STACEY CA ADM clarification of dose: Will administer Vancomycin 1gram x1 today at 1600.
--- NOTE | 2019-11-23 12:30 | NUR ---
LEVOPHED DRIP INCRESED UP TO 0.07MCG/KG/MIN. SBP IS HOLDING GOOD.
[2019-11-23] MEDS: POTASSIUM CHLORIDE 20 MEQ in IV D5/ 0.9% NACL 1,000 ML IV PRN (15:43)
[2019-11-23] MEDS ORDERED: VANCOMYCIN IV 1,000 MG in IV DEXTROSE 5% 250 ML IV ONE ×2 (16:00→18:00)
[2019-11-23] MEDS ORDERED: NEUTRA PHOS PACKET GT ONE (16:45)
[2019-11-23] MEDS ORDERED: NEUTRA PHOS PACKET PO ONE (16:45)
--- NOTE | 2019-11-23 18:30 | NUR ---
NO APPARENT DISTRESS NOTED ALL DAY. NO SEIZURES NOTED. LATEST TEMP 99.1F
[2019-11-23] MEDS ORDERED: DOSING PER PHARMACY-AMIKACIN IV XX PRN (20:30)
[2019-11-23] MEDS ORDERED: LORAZEPAM 2 MG/1 ML VIAL IV PRN (20:30)
--- NOTE | 2019-11-23 21:00 | NUR ---
Significant seizure activity; received orders / Ativan. Patient desaturated, color started to diminish. Ambu bag used until revived. Ventilator changed.
[2019-11-23] MEDS: LORAZEPAM 2 MG/1 ML VIAL IV PRN ×2 (21:01→21:03)
--- NOTE | 2019-11-23 21:16 | NUR ---
PHARMACY CLINICAL NOTES: (AMIKACIN DOSING) S: 59 YO female, resident of our Sub-acute unit, recently transferred to CCU for sever sepsis. She has been treated with Vancomycin merrem and Zithromax but still have leucocytosis and elevated temperature. She had a SZ as well tonight hence ID decided to change ABX to Amikacin and Cefepime O: BUN/SCR 24/1.0, WBC 13.9 (11/21) , T max 101.6, T 1/2 3.65 HR A/P: PT was treated with Amikacin back in July and was managed on 400 mg q24h with peak of 20.2 and trough of 3.9. Will continue with the same dose. Rx will continue monitoring the renal fxn and plan to order peak and trough around 3RD dose of amikacin. Will continue to follow up
[2019-11-23] MEDS: CEFEPIME HCL 1 G in IV DEXTROSE 5% 50 ML IV SCH (21:59)
[2019-11-23] MEDS: AMIKACIN 400 MG in IV DEXTROSE 5% 100 ML IV SCH (22:00)
[2019-11-24] VITALS (48 sets, daily range): BP systolic 90–155; BP diastolic 45–111
[2019-11-24 05:21] LABS: BASOPHILS % (AUTO) 0.1 % (0.0-2.0); EOSINOPHILS # (AUTO) 0.2 K/uL (0.0-0.7); EOSINOPHILS % (AUTO) 2.8 % (0.0-7.0); HEMATOCRIT 22.4 % (31.2-41.9); HEMOGLOBIN 7.6 g/dL (10.9-14.3); LYMPHOCYTES # (AUTO) 0.4 K/uL (20.0-40.0); LYMPHOCYTES % (AUTO) 6.5 % (20.5-51.5); MEAN CORPUSCULAR HEMOGLOBIN 29.7 uug (24.7-32.8); MEAN CORPUSCULAR HGB CONC 34 g/dL (32.3-35.6); MEAN CORPUSCULAR VOLUME 87.9 fL (75.5-95.3); MONOCYTES # (AUTO) 0.5 K/uL (2.0-10.0); MONOCYTES % (AUTO) 7.2 % (0.0-11.0); NEUTROPHILS # (AUTO) 5.3 K/uL (1.8-8.9); NEUTROPHILS % (AUTO) 83.4 % (38.5-71.5); RED BLOOD CELL COUNT(AUTO) 2.55 MIL/uL (3.63-4.92); WHITE BLOOD COUNT (AUTO) 6.3 K/uL (3.8-11.8)
[2019-11-24 05:35] LABS: BILIRUBIN,TOTAL 0.4 mg/dL (0.2-1.0); CREATININE 0.9 mg/dL (0.6-1.3); MAGNESIUM 1.7 mg/dL (1.8-2.4); PHOSPHOROUS 1.6 mg/dL (2.5-4.9); POTASSIUM 3.5 mmol/L (3.5-5.1); TOTAL PROTEIN, SERUM 6.2 g/dL (6.4-8.2)
[2019-11-24 05:38] LABS: PLATELET COUNT (AUTO) 94 K/uL (179-408)
[2019-11-24] MEDS: PANTOPRAZOLE ORAL SUSPENSION 40 MG SUSPDR.PKT GT SCH (05:40)
--- NOTE | 2019-11-24 07:30 | NUR ---
PT IS SLEEPING SOUNDLY, OPENS EYES TO PAINFUL STIMULI. HR IS SR-ST, NO ECTOPIES.
--- NOTE | 2019-11-24 08:00 | NUR ---
SEEN AND EXAMINED BY DR CORBETT WITH NEW ORDERS.
--- NOTE | 2019-11-24 08:30 | NUR ---
SEEN AND EXAMINED BY DR TOLBERT WITH NEW ORDERS.
--- NOTE | 2019-11-24 08:30 | NUR ---
PT ON LEVOPHED DRIP AT 0.07MCG/KG/MIN. SBP IS MAINTAINED IN THE 120 SYS.
--- NOTE | 2019-11-24 08:53 | NUR ---
PHARMACY CLINICAL NOTES: (AMIKACIN DOSING) S:To continue amikacin dosing for this 59 YO female, resident of our Sub-acute unit, recently transferred to CCU for sever sepsis. She was being treated with Vancomycin merrem and Zithromax but still have leucocytosis and elevated temperature. She had a SZ as well tonight hence ID decided to change ABX to Amikacin and Cefepime O: BUN/SCR 18/0.9, WBC 6.3 , T max 99.2 ht 162 cm wt 73 kg A/P: Will continue same dose of amikacin 400 mg IVPB q24h for today (same as July dosing). 2nd cj tonight at 2200. Rx will continue monitoring the renal fxn and plan to order peak and trough around 4th dose of amikacin (not yet ordered). Will continue to follow up
[2019-11-24] MEDS: ACIDOPHILUS/BULGARICUS CHEW TAB GT SCH ×2 (08:56→21:38)
[2019-11-24] MEDS: ASPIRIN 81 MG TAB.CHEW GT SCH (08:56)
[2019-11-24] MEDS: DIAZEPAM 10 MG TABLET GT SCH ×2 (08:56→21:52)
[2019-11-24] MEDS: ASCORBIC ACID 500 MG TABLET GT SCH ×2 (08:56→21:41)
[2019-11-24] MEDS: PHENOBARBITAL 32.4 MG TABLET GT SCH ×2 (08:57→21:39)
[2019-11-24] MEDS: levETIRAcetam 500 MG/5 ML LIQUID UDC GT SCH ×2 (08:58→21:38)
[2019-11-24] MEDS: CEFEPIME HCL 1 G in IV DEXTROSE 5% 50 ML IV SCH ×2 (08:59→21:42)
--- NOTE | 2019-11-24 09:00 | NUR ---
TEM-100F. MEDICATED WITH TYLENOL 650MG VIA GT. SUCTIONED LARGE AMOUNT OF WHITISH SECRETION VIA THE TRACH.
[2019-11-24] MEDS: POTASSIUM CHLORIDE 20 MEQ in IV D5/ 0.9% NACL 1,000 ML IV PRN (09:09)
[2019-11-24] MEDS: VITAL AF 1.2 1,000 ML LIQUID GT PRN (10:30)
--- NOTE | 2019-11-24 10:30 | NUR ---
REPOSITION TO SIDE AT FREQUENT INTERVALS.
[2019-11-24] MEDS: MAGNESIUM SULFATE/D5W 100 ML IV SCH ×2 (11:17→13:02)
[2019-11-24] MEDS: ACETAMINOPHEN 650 MG/20.3 ML LIQUID UDC GT PRN ×2 (11:19→18:54)
[2019-11-24] MEDS ORDERED: POTASSIUM PHOSPHATE MM 15 MMOL in IV NORMAL SALINE 250 ML IV ONE (11:30)
--- NOTE | 2019-11-24 14:00 | NUR ---
SEEN AND EXAMINED BY DR RIOJAS WITH NEW ORDERS.
--- NOTE | 2019-11-24 14:00 | NUR ---
MAGNESIUM 2GMS AND KPHOS IV GIVEN REPLACEMENT ORDERS.
--- NOTE | 2019-11-24 16:00 | NUR ---
PM CARE AND TRACHE CARE DONE. PT HAS A HUGE AMOUNT OF LIQUID STOOLS. SENT TO LAB FOR CDIF.
[2019-11-24] MEDS ORDERED: Z GUARD REMEDY PASTE 57 GM TUBE TOP PRN (16:30)
[2019-11-24] MEDS ORDERED: IV DEXTROSE 5%-0.9%NS+20MeqKCL 1,000 ML IV SCH (16:30)
--- NOTE | 2019-11-24 18:00 | NUR ---
LEVOPHED IS OFF, BP IS MAINTAINED IN THE 140 SYSTOLIC.
--- NOTE | 2019-11-24 18:00 | NUR ---
TUBE FEEDING TOLERATED GOOD, NO RESIDUALS NOTED.
--- NOTE | 2019-11-24 18:30 | NUR ---
PT IS HAVING A PETIT MAL SEIZURES IN ABOUT ONLY 10SECONDS. MEDICATED WITH ATIVAN 1MG SSLOW IVP ORDERED. PT CALMED DOWN. VSS
[2019-11-24] MEDS: LORAZEPAM 2 MG/1 ML VIAL IV PRN (18:49)
--- NOTE | 2019-11-24 19:15 | NUR ---
received patient , on vent settings of ac 14 tv 500 , p 5 , fio2 30 % , has a tempt of > 100 , iv d5 ns + 20 meq kcl at 40 ml , feeding was off , , has a diarrhea liquid , central line right groin intact , patient suctioned and cleaned
--- NOTE | 2019-11-24 19:45 | NUR ---
jane thomas infectious disease is here to see patient given an update
--- NOTE | 2019-11-24 20:00 | NUR ---
no seizure noted , resting comfortably ,
[2019-11-24 20:23] LABS: *OCCULT BLOOD STOOL NEGATIVE (NEGATIVE)
[2019-11-25] VITALS (23 sets, daily range): BP systolic 96–124; BP diastolic 65–87
--- NOTE | 2019-11-25 | NUR ---
no seizure noted , resting comfortably , no fever
--- NOTE | 2019-11-25 00:06 | NUR ---
lab levels being monitored and being coorected when applicable , currently on d5 ns + 20 meq kcl at 40 ml Addendum: 11/25/19 at 0006 by DILIP MARCANO RN Amended: Links added. Addendum: 11/25/19 at 0008 by DILIP MARCANO RN Amended: Links added. Addendum: 11/25/19 at 0009 by DILIP MARCANO RN Amended: Links added.
--- NOTE | 2019-11-25 00:08 | NUR ---
pressor levophed imortance and use , but unable to comprehend due to mental status Addendum: 11/25/19 at 0008 by DILIP MARCANO RN Amended: Links added. Addendum: 11/25/19 at 0009 by DILIP MARCANO RN Amended: Links added.
--- NOTE | 2019-11-25 00:09 | NUR ---
intake and out put , weight being monitored , curently on vital af at 55 ml Addendum: 11/25/19 at 0009 by DILIP MARCANO RN Amended: Links added.
--- NOTE | 2019-11-25 00:10 | NUR ---
no grimacing or restless noted Addendum: 11/25/19 at 0010 by DILIP MARCANO RN Amended: Links added.
[2019-11-25] MEDS: AMIKACIN 400 MG in IV DEXTROSE 5% 100 ML IV SCH ×2 (00:52→21:38)
--- NOTE | 2019-11-25 02:00 | NUR ---
no seizure noted , sleeping comfortbaly , vs statble , gt feeding tolerating well
--- NOTE | 2019-11-25 04:00 | NUR ---
NO SEIZURE NOTED , VS STABLE , NON LABORED BREATHING , FEEDING TOLERATING WELL
[2019-11-25 06:06] LABS: BASOPHILS % (AUTO) 0.3 % (0.0-2.0); EOSINOPHILS # (AUTO) 0.1 K/uL (0.0-0.7); EOSINOPHILS % (AUTO) 2.8 % (0.0-7.0); HEMATOCRIT 21.6 % (31.2-41.9); LYMPHOCYTES # (AUTO) 0.5 K/uL (20.0-40.0); LYMPHOCYTES % (AUTO) 9.8 % (20.5-51.5); MEAN CORPUSCULAR HEMOGLOBIN 30.1 uug (24.7-32.8); MEAN CORPUSCULAR HGB CONC 34 g/dL (32.3-35.6); MEAN CORPUSCULAR VOLUME 88.4 fL (75.5-95.3); MONOCYTES # (AUTO) 0.4 K/uL (2.0-10.0); MONOCYTES % (AUTO) 7.6 % (0.0-11.0); NEUTROPHILS # (AUTO) 4.1 K/uL (1.8-8.9); NEUTROPHILS % (AUTO) 79.5 % (38.5-71.5); PLATELET COUNT (AUTO) 107 K/uL (179-408); WHITE BLOOD COUNT (AUTO) 5.1 K/uL (3.8-11.8)
[2019-11-25] MEDS: PANTOPRAZOLE ORAL SUSPENSION 40 MG SUSPDR.PKT GT SCH (06:10)
[2019-11-25 06:11] LABS: CREATININE 0.8 mg/dL (0.6-1.3); MAGNESIUM 1.9 mg/dL (1.8-2.4); PHOSPHOROUS 2.3 mg/dL (2.5-4.9); POTASSIUM 4.1 mmol/L (3.5-5.1)
[2019-11-25 06:20] LABS: HEMOGLOBIN 7.4 g/dL (10.9-14.3); RED BLOOD CELL COUNT(AUTO) 2.44 MIL/uL (3.63-4.92)
[2019-11-25] MEDS: IV DEXTROSE 5%-0.9%NS+20MeqKCL 1,000 ML IV PRN (07:07)
--- NOTE | 2019-11-25 07:55 | NUR ---
PHARMACY CLINICAL NOTES: (AMIKACIN DOSING) S:To continue amikacin dosing for this 59 YO female, resident of our Sub-acute unit, recently transferred to CCU for sever sepsis. She was being treated with Vancomycin merrem and Zithromax but still have leucocytosis and elevated temperature. She had a SZ as well tonight hence ID decided to change ABX to Amikacin and Cefepime O: BUN/SCR 18/0.9, WBC 6.3 , T max 99.2 ht 162 cm wt 73 kg A/P: Will continue same dose of amikacin 400 mg IVPB q24h for today (same as July dosing). 3rd dose tonight at 2200 (per RN (Dee Dee Fox), 2nd dose was given at 2200 but RN documented late). Rx will continue monitoring the renal fxn and plan to order peak and trough around 4th dose of amikacin (not yet ordered). Will continue to follow up
[2019-11-25 08:10] LABS: ABG BASE EXCESS -3.9 mmol/L; ABG PCO2 31.6 mmHg (35.0-45.0); ABG PO2 97.1 mmHg (75.0-100.0); ABG SITE LEFT RADIAL; ABG TOTAL HEMOGLOBIN 7.5 G/dL (12.0-16.0); COHb 1.5 % (0.5-1.5); MetHb 0.2 % (0.0-1.5); O2Hb 96.6 % (94.0-97.0); VENT MODE VENT - A/C; VT, ABG 500 mL
[2019-11-25] MEDS: ASCORBIC ACID 500 MG TABLET GT SCH ×2 (09:27→20:49)
[2019-11-25] MEDS: ASPIRIN 81 MG TAB.CHEW GT SCH (09:27)
[2019-11-25] MEDS: ACIDOPHILUS/BULGARICUS CHEW TAB GT SCH ×2 (09:27→20:49)
[2019-11-25] MEDS: AMIODARONE HCL 200 MG TABLET GT SCH (09:27)
[2019-11-25] MEDS: PHENOBARBITAL 32.4 MG TABLET GT SCH ×2 (09:28→20:51)
[2019-11-25] MEDS: DIAZEPAM 10 MG TABLET GT SCH ×2 (09:28→20:50)
[2019-11-25] MEDS: CEFEPIME HCL 1 G in IV DEXTROSE 5% 50 ML IV SCH (09:33)
[2019-11-25] MEDS: levETIRAcetam 500 MG/5 ML LIQUID UDC GT SCH ×2 (09:36→20:52)
--- NOTE | 2019-11-25 10:00 | NUR ---
Pulmonary services, Dr. Lora in the unit to see and examine, pt. full report given see order hx.
--- NOTE | 2019-11-25 11:07 | NUR ---
Attending physician Dr. Zamudio in the unit to see and examine pt. orders to continue with current care plan received.
[2019-11-25] MEDS: VITAL AF 1.2 1,000 ML LIQUID GT PRN (11:12)
[2019-11-25] MEDS ORDERED: NEUTRA PHOS PACKET PO ONE (15:45)
--- NOTE | 2019-11-25 19:10 | NUR ---
RECEIVED PT ON CONTINUOUS VENT. TRACH IN PLACED AND SECURED WITH TRACH TIE. SUCTION PRN. VENT CHECKED, ALARMS WORKING WELL AND AUDIBLE. NO DISTRESS NOTED AT THIS TIME. WILL CONTINUE TO MONITOR.
--- NOTE | 2019-11-25 20:00 | NUR ---
RECEIVED PT OPEN HER EYES TO ANY STIMULI. TRACH TO VENT W/ SETTINGS OF AC-14, TV-500, FIO2-30%, PEEP-+5 W/ O2 SAT OF 98%. SUCTIONED VIA TRACH W/ MIN. THIN TANNISH MUCOUS. G-TUBE INTACT CHECKED PLACEMENT, CHECKED RESIDUAL 80CC NOTED HOLD TUBE FDG FOR 1HR & WILL RECHECKED RESIDUAL..IVF D5NS W/ 20MEQKCL @40CC/HR VIA TLC ON R FEMORAL. TEMP-99.9, COOLING MEASURES GIVEN. REPOSITIONED PT. ON HER SIDE W/ HOB ELEVATED.
[2019-11-25] MEDS: VANCOMYCIN FOR PO/GT/NG USE GT SCH (20:52)
[2019-11-25] MEDS: SULFAMETH/TRIMETH 800/160 MG TABLET GT SCH (20:53)
--- NOTE | 2019-11-25 21:00 | NUR ---
RECHECKED RESIDUAL OF G-TUBE OBTAINED 30CC, MEDS. DUE GIVEN VIA G-TUBE.
[2019-11-26] VITALS (22 sets, daily range): BP systolic 86–154; BP diastolic 54–98
--- NOTE | 2019-11-26 | NUR ---
TEMP-99.7 ORALLY. CHECKED G-TUBE RESIDUAL 150CC NOTED, OFF TUBE FDG, WILL RECHECK RESIDUAL IN 2 HRS.
--- NOTE | 2019-11-26 02:53 | NUR ---
RECHECKED G-TUBE RESIDUAL 180CC NOTED, HOLD TUBE FDG, ELEVATE HOB 30 DEGREES CONT.
--- NOTE | 2019-11-26 04:00 | NUR ---
AM CARE DONE. ORAL CARE DONE. TRACH CARE DONE.
--- NOTE | 2019-11-26 04:05 | NUR ---
G-TUBE FDG REMAINS ON HOLD RESIDUAL STILL 100CC.
[2019-11-26] MEDS: PANTOPRAZOLE ORAL SUSPENSION 40 MG SUSPDR.PKT GT SCH (05:52)
[2019-11-26 06:21] LABS: CREATININE 0.8 mg/dL (0.6-1.3); MAGNESIUM 1.7 mg/dL (1.8-2.4); PHOSPHOROUS 2.9 mg/dL (2.5-4.9)
[2019-11-26 06:25] LABS: BILIRUBIN,DIRECT 0.2 mg/dL (0.0-0.2); BILIRUBIN,TOTAL 0.4 mg/dL (0.2-1.0); TOTAL PROTEIN, SERUM 5.8 g/dL (6.4-8.2)
[2019-11-26 06:40] LABS: BASOPHILS % (AUTO) 0.4 % (0.0-2.0); EOSINOPHILS # (AUTO) 0.1 K/uL (0.0-0.7); EOSINOPHILS % (AUTO) 3.2 % (0.0-7.0); HEMATOCRIT 21.4 % (31.2-41.9); LYMPHOCYTES # (AUTO) 0.6 K/uL (20.0-40.0); LYMPHOCYTES % (AUTO) 18.3 % (20.5-51.5); MEAN CORPUSCULAR HEMOGLOBIN 29.7 uug (24.7-32.8); MEAN CORPUSCULAR HGB CONC 34 g/dL (32.3-35.6); MEAN CORPUSCULAR VOLUME 88.4 fL (75.5-95.3); MONOCYTES # (AUTO) 0.4 K/uL (2.0-10.0); MONOCYTES % (AUTO) 10.6 % (0.0-11.0); NEUTROPHILS # (AUTO) 2.4 K/uL (1.8-8.9); NEUTROPHILS % (AUTO) 67.5 % (38.5-71.5); PLATELET COUNT (AUTO) 113 K/uL (179-408); WHITE BLOOD COUNT (AUTO) 3.5 K/uL (3.8-11.8)
[2019-11-26 06:42] LABS: HEMOGLOBIN 7.2 g/dL (10.9-14.3); RED BLOOD CELL COUNT(AUTO) 2.42 MIL/uL (3.63-4.92)
--- NOTE | 2019-11-26 07:15 | NUR ---
FOCAL SEIZURES NOTED LASTING FOR APPROX 5 MINS, ATIVAN 1MG GIVEN IVP ORDERED.
[2019-11-26] MEDS: LORAZEPAM 2 MG/1 ML VIAL IV PRN (07:25)
--- NOTE | 2019-11-26 07:40 | NUR ---
PHARMACY CLINICAL NOTES: (AMIKACIN DOSING) S:To continue amikacin dosing for this 59 YO female, resident of our Sub-acute unit, recently transferred to CCU for sever sepsis. She was being treated with Vancomycin merrem and Zithromax but still have leucocytosis and elevated temperature. She had a SZ as well tonight hence ID decided to change ABX to Amikacin and Cefepime O: BUN/SCR 14/0.8, WBC 5.1 , Temp 97.9 ht 162 cm wt 73 kg A/P: Will continue same dose of amikacin 400 mg IVPB q24h for today (same as July dosing). 4th dose tonight at 2200 (per RN (Dee Dee Fox), 2nd dose was given at 2200 but RN documented late). Rx will continue monitoring the renal fxn and plan to order peak and trough around 4th dose of amikacin (ordered trough for 11/25 at 2130 & peak on 11/25 at 2300- PM pharmacist shall inform PM nurse as when to draw trough & peak). Pharmacy shall review the level in am & adjust the dose if needed. Will continue to follow up
[2019-11-26] MEDS: SULFAMETH/TRIMETH 800/160 MG TABLET GT SCH ×2 (08:52→20:38)
[2019-11-26] MEDS: AMIODARONE HCL 200 MG TABLET GT SCH (08:53)
[2019-11-26] MEDS: levETIRAcetam 500 MG/5 ML LIQUID UDC GT SCH ×2 (08:53→20:38)
[2019-11-26] MEDS: ACIDOPHILUS/BULGARICUS CHEW TAB GT SCH ×2 (08:53→20:33)
[2019-11-26] MEDS: PHENOBARBITAL 32.4 MG TABLET GT SCH ×2 (08:54→20:34)
[2019-11-26] MEDS: VANCOMYCIN FOR PO/GT/NG USE GT SCH ×4 (08:55→22:11)
[2019-11-26] MEDS: ACETAMINOPHEN 650 MG/20.3 ML LIQUID UDC GT PRN ×2 (08:55→23:33)
[2019-11-26] MEDS: ASCORBIC ACID 500 MG TABLET GT SCH ×2 (08:55→20:34)
[2019-11-26] MEDS: DIAZEPAM 10 MG TABLET GT SCH ×2 (08:55→20:34)
--- NOTE | 2019-11-26 10:30 | NUR ---
PULMONARY SERVICES DR. TOLBERT IN THE UNIT. FULL REPORT GIVEN TO DR. TOLBERT, SEE ORDER HISTORY FOR NEW ORDERS. DR. TOLBERT AT BEDSIDE ASSESSING PATIENT.
[2019-11-26] MEDS: VITAL AF 1.2 1,000 ML LIQUID GT PRN (10:46)
[2019-11-26] MEDS: IV DEXTROSE 5%-0.9%NS+20MeqKCL 1,000 ML IV PRN (10:46)
[2019-11-26] MEDS: MAGNESIUM SULFATE/D5W 100 ML IV SCH ×2 (10:47→11:49)
--- NOTE | 2019-11-26 11:46 | NUR ---
ATTENDING PHYSICIAN DR. HEATH IN THE UNIT. FULL REPORT GIVEN, SEE ORDER HISTORY FOR NEW ORDERS. DR. HEATH AT BEDSIDE ASSESSING PATIENT.
[2019-11-26] MEDS: SOD FERRIC GLUC COMPLX/SUCROSE 125 MG in IV NORMAL SALINE 100 ML IV SCH (13:16)
--- NOTE | 2019-11-26 15:00 | NUR ---
CARDIOLOGY SERVICES DR. DILLON IN THE UNIT. FULL REPORT GIVEN TO DR. DILLON SEE ORDER HISTORY FOR NEW ORDERS. DR. DILLON AT BEDSIDE ASSESSING PATIENT.
--- NOTE | 2019-11-26 19:40 | NUR ---
Pt received Cordero vent with current settings of AC 14, VT 500, Peep +5, FiO2 30%. Pt is trached with a Shiley 8 DCT trach, which is secure and patent. Pt tolerating vent settings well. No signs of respiratory distress noted at this time. Suctioned pt with small amount of white secretions. Changed HME. Vent alarms functioning and audible. Vent plugged into red outlet. Will continue to monitor pt throughout shift.
--- NOTE | 2019-11-26 20:00 | NUR ---
patient vs stable , iv d5 ns+ 20 meq kcl running at 40 ml , vent settings of ac 14 tv 500 p5 bmi733% , suctioned , central line intact right groin , warm to touch with temp of 99 , 7 , vital af running at 55 gt , residual checked . no seizure noted
--- NOTE | 2019-11-26 20:23 | NUR ---
LAB WORKS BEING MONITORED AND CORREDTED . MAGNESIUM IV WAS GIVEN TODAY AND IV IS RUNNING IS D5NS + 20 MEQ KCL AT 40 ML Addendum: 11/26/19 at 2022 by DILIP MARCANO RN Amended: Links added.
--- NOTE | 2019-11-26 20:24 | NUR ---
VITAL AF AT 55 , RESIDUAL CHECKED EVERY 2 HOURS Addendum: 11/26/19 at 2023 by DILIP MARCANO RN Amended: Tasha added. Addendum: 11/26/19 at 2024 by DILIP MARCANO RN Amended: Tasha hicks.
--- NOTE | 2019-11-26 20:25 | NUR ---
SEIZURE EPISODE BEING MONITORED AND MEDICATION BEING GIVEN , Addendum: 11/26/19 at 2024 by DILIP MARCANO RN Amended: Links added.
--- NOTE | 2019-11-26 20:30 | NUR ---
was called by [facility] , pharmacist about amikacin through and peak level draw on the patient , and was told not hold the dose at 22: 00 , no matter what the result is .
--- NOTE | 2019-11-26 21:29 | NUR ---
william bain , is here to see patient and given an upate on patient's condition
[2019-11-26] MEDS: AMIKACIN 400 MG in IV DEXTROSE 5% 100 ML IV SCH (21:43)
--- NOTE | 2019-11-26 22:00 | NUR ---
no seizure noted
[2019-11-27] VITALS (15 sets, daily range): BP systolic 97–144; BP diastolic 63–89
--- NOTE | 2019-11-27 | NUR ---
no seizure noted , vs stable
--- NOTE | 2019-11-27 00:28 | NUR ---
dr notified of amikacin level
--- NOTE | 2019-11-27 02:00 | NUR ---
vs stable , no seizure noted , no fever , gt feeding residual
[2019-11-27 05:56] LABS: EOSINOPHILS # (AUTO) 0.1 K/uL (0.0-0.7)
[2019-11-27 05:59] LABS: MEAN CORPUSCULAR HGB CONC 34 g/dL (32.3-35.6)
--- NOTE | 2019-11-27 06:00 | NUR ---
NO SEIZURE NOTED
[2019-11-27] MEDS: PANTOPRAZOLE ORAL SUSPENSION 40 MG SUSPDR.PKT GT SCH (06:08)
[2019-11-27 06:13] LABS: CREATININE 0.8 mg/dL (0.6-1.3); PHOSPHOROUS 2.9 mg/dL (2.5-4.9); POTASSIUM 4.1 mmol/L (3.5-5.1)
[2019-11-27 08:06] LABS: HEMATOCRIT 23.2 % (31.2-41.9); HEMOGLOBIN 7.9 g/dL (10.9-14.3); MEAN CORPUSCULAR VOLUME 88.3 fL (75.5-95.3); RED BLOOD CELL COUNT(AUTO) 2.63 MIL/uL (3.63-4.92); WHITE BLOOD COUNT (AUTO) 4.9 K/uL (3.8-11.8)
[2019-11-27 08:07] LABS: MEAN CORPUSCULAR HEMOGLOBIN 29.9 uug (24.7-32.8); NEUTROPHILS % (AUTO) 67.9 % (38.5-71.5); PLATELET COUNT (AUTO) 145 K/uL (179-408)
[2019-11-27 08:08] LABS: BASOPHILS % (AUTO) 0.2 % (0.0-2.0); EOSINOPHILS % (AUTO) 2.8 % (0.0-7.0); LYMPHOCYTES # (AUTO) 0.8 K/uL (20.0-40.0); LYMPHOCYTES % (AUTO) 16.8 % (20.5-51.5); MONOCYTES # (AUTO) 0.6 K/uL (2.0-10.0); MONOCYTES % (AUTO) 12.3 % (0.0-11.0); NEUTROPHILS # (AUTO) 3.3 K/uL (1.8-8.9)
[2019-11-27] MEDS: PHENOBARBITAL 32.4 MG TABLET GT SCH (08:21)
[2019-11-27] MEDS: ACIDOPHILUS/BULGARICUS CHEW TAB GT SCH (08:21)
[2019-11-27] MEDS: AMIODARONE HCL 200 MG TABLET GT SCH (08:21)
[2019-11-27] MEDS: levETIRAcetam 500 MG/5 ML LIQUID UDC GT SCH (08:21)
[2019-11-27] MEDS: SULFAMETH/TRIMETH 800/160 MG TABLET GT SCH (08:21)
[2019-11-27] MEDS: DIAZEPAM 10 MG TABLET GT SCH (08:22)
[2019-11-27] MEDS: ASCORBIC ACID 500 MG TABLET GT SCH (08:22)
[2019-11-27] MEDS: VANCOMYCIN FOR PO/GT/NG USE GT SCH ×3 (08:22→16:44)
--- NOTE | 2019-11-27 08:30 | NUR ---
CARDIOLOGY SERVICES DR. DILLON IN THE UNIT. FULL REPORT GIVEN TO DR. DILLON SEE ORDER HISTORY FOR NEW ORDERS.
[2019-11-27 09:09] LABS: BAND % (MANUAL) 5 % (0-10); EOSINOPHILS % (MANUAL) 2 % (0-8); LYMPHOCYTES % (MANUAL) 18 % (20-40); MONOCYTES % (MANUAL) 11 % (2-10); NEUTROPHILS % (MANUAL) 64 % (42-75)
--- NOTE | 2019-11-27 09:50 | NUR ---
PHARMACY CLINICAL NOTES: (AMIKACIN DOSING) S:To continue amikacin dosing for this 59 YO female, resident of our Sub-acute unit, recently transferred to CCU for sever sepsis. She was being treated with Vancomycin merrem and Zithromax but still have leucocytosis and elevated temperature. She had a SZ as well tonight hence ID decided to change ABX to Amikacin and Cefepime O: BUN/SCR 15/0.8, WBC 4.1 , Temp 99.3 ht 162 cm wt 73 kg amikacin trough 11/25 @2135: 5.3 amikacin peak 11/25 @2308: 18.1 A/P: As amikacin levels within range, will continue same dose of amikacin 400 mg IVPB q24h for today. Will continue to follow and if condition or renal function were to change, will consider repeat levels or change in regimen. Will monitor
[2019-11-27] MEDS: VITAL AF 1.2 1,000 ML LIQUID GT PRN (10:17)
--- NOTE | 2019-11-27 10:30 | NUR ---
PULMONARY SERVICES DR. TOLBERT IN THE UNIT. FULL REPORT GIVEN TO DR. TOLBERT SEE ORDER HISTORY FOR NEW ORDERS. DR. TOLBERT AT BEDSIDE ASSESSING PATIENT.
[2019-11-27] MEDS: IV DEXTROSE 5%-0.9%NS+20MeqKCL 1,000 ML IV PRN (11:29)
--- NOTE | 2019-11-27 12:00 | NUR ---
ATTENDING PHYSICIAN DR. HEATH IN THE UNIT. FULL REPORT GIVEN TO DR. HEATH SEE ORDER HISTORY FOR NEW ORDERS. DR. HEATH AT BEDSIDE ASSESSING PATIENT.
[2019-11-27] MEDS: SOD FERRIC GLUC COMPLX/SUCROSE 125 MG in IV NORMAL SALINE 100 ML IV SCH (13:59)
[2019-11-27] MEDS: LORAZEPAM 2 MG/1 ML VIAL IV PRN (14:03)
--- NOTE | 2019-11-27 14:20 | NUR ---
FOCAL SEIZURE NOTED FOR APPROX 2MIN, IV ATIVAN GIVEN ORDERED AND DR SNOWDEN ATTENDING MD NOTIFIED.
[2019-11-27] MEDS: ACETAMINOPHEN 650 MG/20.3 ML LIQUID UDC GT PRN (16:01)
--- NOTE | 2019-11-27 17:10 | NUR ---
Patient to transfer back to Sub-acute unit today. Dietary will continue to monitor and follow patient after discharge. Addendum: 11/27/19 at [address] Amended: Links added.
--- NOTE | 2019-11-27 17:15 | NUR ---
Transferred patient to [facility], VSS BP: 132/80 P: 94 Sats: 99%, Temp 99.2notified receiving nurse about low grade fever Tylenol and cooling measures provided. Patient transferred on vent. Report given to Tremaine RN. Patient transferred with RT and RN without any complications.
== END 2019-11-27 17:15 | DRG 720 ==
LOC: ER 18:52 → CCU 20:10
PROVIDERS: ADMIT Internal Medicine; ATTEND Internal Medicine
PROC: 06HY33Z Insertion of Infusion Device into Lower Vein, Percutaneous Approach (ICD-10-PCS; principal; 2019-11-21)
PROC: 5A1955Z Respiratory Ventilation, Greater than 96 Consecutive Hours (ICD-10-PCS; principal; 2019-11-21)
DX: A41.9 Sepsis, unspecified organism (principal); J96.21 Acute and chronic respiratory failure with hypoxia; N17.0 Acute kidney failure with tubular necrosis; J69.0 Pneumonitis due to inhalation of food and vomit; G93.40 Encephalopathy, unspecified; E43 Unspecified severe protein-calorie malnutrition; R65.21 Severe sepsis with septic shock; A04.72 Enterocolitis due to Clostridium difficile, not specified as recurrent; Z99.11 Dependence on respirator [ventilator] status; Z93.0 Tracheostomy status; D68.69 Other thrombophilia; E83.39 Other disorders of phosphorus metabolism; L89.156 Pressure-induced deep tissue damage of sacral region; I50.9 Heart failure, unspecified; I11.0 Hypertensive heart disease with heart failure; B96.20 Unspecified Escherichia coli [E. coli] as the cause of diseases classified elsewhere; B96.4 Proteus (mirabilis) (morganii) as the cause of diseases classified elsewhere; Z16.12 Extended spectrum beta lactamase (ESBL) resistance; I69.351 Hemiplegia and hemiparesis following cerebral infarction affecting right dominant side; D50.9 Iron deficiency anemia, unspecified; E78.5 Hyperlipidemia, unspecified; E87.6 Hypokalemia; I48.0 Paroxysmal atrial fibrillation; Z87.01 Personal history of pneumonia (recurrent); Z93.1 Gastrostomy status; G40.909 Epilepsy, unspecified, not intractable, without status epilepticus; D64.9 Anemia, unspecified; Z68.27 Body mass index [BMI] 27.0-27.9, adult; J98.11 Atelectasis; Z86.19 Personal history of other infectious and parasitic diseases; R13.10 Dysphagia, unspecified; N13.6 Pyonephrosis; Z91.81 History of falling; I69.198 Other sequelae of nontraumatic intracerebral hemorrhage
CPT/HCPCS: 36415; 36556; 36600; 70030-TC; 71045; 76705; 80299; 83550; 83605; 83615; 83735; 84100; 85025; 85730; 87040; 87070; 87077; 87086; 87400; 93005; 93307; 94002; 94003; A4217; A4663; G0378; J0278; J0456; J0692; J2060; J2185; J2916; J3370; J3475; J3480; J3490; J7030; J7042; J7050; J7060

== ENCOUNTER 2020-06-09 09:54 | Inpatient (IN) | payer OTHER ==
[2020-06-09] VITALS (29 sets, daily range): BP systolic 86–124; BP diastolic 46–78
[~2020-06-09] VITALS: Ht 162.6 cm; Wt 76.7 kg
[~2020-06-09 09:54] MED LIST changes: -AMIK250V13 IV; +AMIO200T5 GT; -AMLO10TA4 GT; +DEXT15DR6 EACHEYE; -DIAZ10TA4 GT; +DIAZ5TAB GT; +HYDR237S13 TP; -LISI10TA5 GT; +MAGN400T30 GT; +METO25TA6 GT; -METO50TA16 GT; +NUT.237L65 GT; +OMEP40CA13 GT; +ONDA4TAB5 GT; +ZINC57OI3 TP
[2020-06-09] MEDS ORDERED: AMIN30LI2 GT (10:13)
[2020-06-09] MEDS ORDERED: POTA10CA43 IV (10:13)
[2020-06-09] MEDS ORDERED: CEFT1VIA15 IV (10:13)
[2020-06-09] MEDS ORDERED: PIPERACILLIN SODIUM/TAZOBACTAM 3.375 G in IV DEXTROSE 5% 50 ML IV ONE ×2 (10:15→20:00)
[2020-06-09] MEDS ORDERED: VANCOMYCIN IV 1,000 MG in IV DEXTROSE 5% 250 ML IV ONE (10:15)
[2020-06-09] MEDS ORDERED: IV NORMAL SALINE 1000 ML BAG IV ONE ×2 (10:15→11:15)
[2020-06-09] MEDS ORDERED: PIPERACILLIN/TAZOBACTAM/D5W 50 ML IV ONE (10:22)
[2020-06-09] MEDS ORDERED: VANCOMYCIN IV 200 ML ONE (10:22)
[2020-06-09 11:10] LABS: *BLOOD, URINE 3+ (NEGATIVE); *CLARITY,URINE CLOUDY (CLEAR); *COLOR,URINE YELLOW (YELLOW); *KETONES,URINE TRACE (NEGATIVE); *UROBILINOGEN,URINE 0.2 E.U./dl (NORMAL); LEUKOCYTE ESTERASE ,URINE 3+ (NEGATIVE); NITRITE, URINE NEGATIVE (NEGATIVE); UGLUCOSE NEGATIVE (NEGATIVE)
[2020-06-09 11:18] LABS: *BILIRUBIN,URIN 2+ (NEGATIVE)
[2020-06-09 12:01] LABS: BILIRUBIN,DIRECT 0.6 mg/dL (0.0-0.2); BILIRUBIN,TOTAL 0.9 mg/dL (0.2-1.0); CREATININE 1.9 mg/dL (0.6-1.3); POTASSIUM 3.6 mmol/L (3.5-5.1); TOTAL PROTEIN, SERUM 5.5 g/dL (6.4-8.2)
[2020-06-09 12:02] LABS: BASOPHILS % (AUTO) 0.2 % (0.0-2.0); HEMOGLOBIN 7.6 g/dL (10.9-14.3); LYMPHOCYTES # (AUTO) 0.3 K/uL (20.0-40.0); MEAN CORPUSCULAR HGB CONC 35 g/dL (32.3-35.6); MONOCYTES # (AUTO) 0.3 K/uL (2.0-10.0); NEUTROPHILS # (AUTO) 4.2 K/uL (1.8-8.9); WHITE BLOOD COUNT (AUTO) 4.9 K/uL (3.8-11.8)
[2020-06-09 12:03] LABS: EOSINOPHILS % (AUTO) 0.8 % (0.0-7.0); HEMATOCRIT 21.6 % (31.2-41.9); LYMPHOCYTES % (AUTO) 6.8 % (20.5-51.5); MEAN CORPUSCULAR HEMOGLOBIN 30.7 uug (24.7-32.8); MEAN CORPUSCULAR VOLUME 87.7 fL (75.5-95.3); MONOCYTES % (AUTO) 5.5 % (0.0-11.0); NEUTROPHILS % (AUTO) 86.7 % (38.5-71.5)
[2020-06-09] MEDS ORDERED: ACETAMINOPHEN ES 500 MG TABLET ONE (12:06)
[2020-06-09] MEDS ORDERED: ACETAMINOPHEN 650 MG/20.3 ML LIQUID UDC GT ONE (12:15)
[2020-06-09 12:34] LABS: RED BLOOD CELL COUNT(AUTO) 2.47 MIL/uL (3.63-4.92)
[2020-06-09 12:40] LABS: PLATELET COUNT (AUTO) 30 K/uL (179-408)
[2020-06-09] MEDS ORDERED: DIATR MEGLU/DIATRIZOATE SODIUM 30 ML BOTTLE ONE (13:16)
[2020-06-09] MEDS ORDERED: NOREPINEPHRINE BITARTRATE 4 MG/4 ML VIAL IV ONE (15:41)
[2020-06-09 16:28] LABS: RBC,URINE 20-50 /HPF (0-3)
[2020-06-09 16:29] LABS: BACTERIA,URINE MODERATE /HPF (NONE SEEN); SQUAMOUS EPITHELIAL CELL,UR FEW /HPF (NONE SEEN); WBC,URINE 80-100 /HPF (0-3)
[2020-06-09] MEDS: NOREPINEPHRINE BITARTRATE 8 MG in IV NORMAL SALINE 242 ML IV PRN (17:17)
[2020-06-09] MEDS ORDERED: IV NS 1000 ML 1,000 ML IV PRN (17:45)
[2020-06-09] MEDS ORDERED: NOREPINEPHRINE BITARTRATE 8 MG in IV NORMAL SALINE 250 ML IV PRN (17:45)
[2020-06-09] MEDS: IV NS 1000 ML 1,000 ML IV PRN (18:08)
[2020-06-09 18:49] LABS: BILIRUBIN,DIRECT 0.8 mg/dL (0.0-0.2); BILIRUBIN,TOTAL 0.9 mg/dL (0.2-1.0); CREATININE 1.8 mg/dL (0.6-1.3); POTASSIUM 3.7 mmol/L (3.5-5.1); TOTAL PROTEIN, SERUM 6.2 g/dL (6.4-8.2)
[2020-06-09] MEDS ORDERED: VANCOMYCIN IV 500 MG in IV DEXTROSE 5% 100 ML IV ONE (19:00)
[2020-06-09] MEDS ORDERED: MEROPENEM 500 MG in IV NORMAL SALINE 50 ML IV SCH (19:45)
[2020-06-09] MEDS: MEROPENEM 1 G in IV NORMAL SALINE 100 ML IV SCH (20:36)
[2020-06-09] MEDS: PHENOBARBITAL 32.4 MG TABLET GT SCH (20:36)
[2020-06-09] MEDS: levETIRAcetam 500 MG/5 ML LIQUID UDC GT SCH (20:36)
[2020-06-09] MEDS: DIAZEPAM 5 MG TABLET GT SCH (20:36)
[2020-06-09] MEDS: FAMOTIDINE. 20 MG/2 ML VIAL IV SCH (20:37)
[2020-06-09] MEDS ORDERED: PIPERACILLIN SODIUM/TAZOBACTAM 4.5 G in IV DEXTROSE 5% 50 ML IV SCH (22:00)
[2020-06-09] MEDS: METRONIDAZOLE 500 MG TABLET PO SCH (22:02)
[2020-06-10] VITALS (90 sets, daily range): BP systolic 76–150; BP diastolic 51–96
[2020-06-10] MEDS ORDERED: PIPERACILLIN SODIUM/TAZOBACTAM 3.375 G in IV DEXTROSE 5% 100 ML IV SCH (02:00)
[2020-06-10] MEDS: NOREPINEPHRINE BITARTRATE 8 MG in IV NORMAL SALINE 242 ML IV PRN (03:17)
[2020-06-10] MEDS: IV NS 1000 ML 1,000 ML IV PRN ×2 (04:39→15:23)
[2020-06-10 05:14] LABS: BASOPHILS % (AUTO) 0.2 % (0.0-2.0); CREATININE 1.6 mg/dL (0.6-1.3); EOSINOPHILS # (AUTO) 0.1 K/uL (0.0-0.7); EOSINOPHILS % (AUTO) 0.7 % (0.0-7.0); HEMATOCRIT 23.4 % (31.2-41.9); HEMOGLOBIN 8.1 g/dL (10.9-14.3); LYMPHOCYTES # (AUTO) 0.3 K/uL (20.0-40.0); MEAN CORPUSCULAR HEMOGLOBIN 29.8 uug (24.7-32.8); MEAN CORPUSCULAR HGB CONC 35 g/dL (32.3-35.6); MEAN CORPUSCULAR VOLUME 86.4 fL (75.5-95.3); MONOCYTES # (AUTO) 0.5 K/uL (2.0-10.0); NEUTROPHILS # (AUTO) 10.3 K/uL (1.8-8.9); NEUTROPHILS % (AUTO) 92.1 % (38.5-71.5); PHOSPHOROUS 1.4 mg/dL (2.5-4.9); POTASSIUM 3.3 mmol/L (3.5-5.1); RED BLOOD CELL COUNT(AUTO) 2.71 MIL/uL (3.63-4.92); WHITE BLOOD COUNT (AUTO) 11.2 K/uL (3.8-11.8)
[2020-06-10 05:22] LABS: PLATELET COUNT (AUTO) 41 K/uL (179-408)
[2020-06-10] MEDS: METRONIDAZOLE 500 MG TABLET PO SCH ×3 (06:22→22:05)
[2020-06-10 07:43] LABS: ABG HCO3 20.7 mmol/L; ABG PH 7.378 (7.350-7.450); ABG PO2 95.6 mmHg (75.0-100.0); ABG SITE LEFT RADIAL; ABG TOTAL HEMOGLOBIN 8.1 G/dL (12.0-16.0); MetHb 0.1 % (0.0-1.5); O2Hb 96.8 % (94.0-97.0); VENT MODE VENT - A/C; VT, ABG 500 mL
[2020-06-10] MEDS: AMIODARONE HCL 200 MG TABLET GT SCH (08:27)
[2020-06-10] MEDS: DIAZEPAM 5 MG TABLET GT SCH ×2 (08:28→20:57)
[2020-06-10] MEDS ORDERED: POTASSIUM PHOSPHATE MM 15 MMOL in IV NORMAL SALINE 250 ML IV ONE (08:30)
[2020-06-10] MEDS: FAMOTIDINE. 20 MG/2 ML VIAL IV SCH ×2 (08:36→20:57)
[2020-06-10] MEDS: MEROPENEM 1 G in IV NORMAL SALINE 100 ML IV SCH ×2 (08:38→20:54)
[2020-06-10] MEDS: levETIRAcetam 500 MG/5 ML LIQUID UDC GT SCH ×2 (08:39→20:54)
[2020-06-10] MEDS: PHENOBARBITAL 32.4 MG TABLET GT SCH ×2 (08:39→20:57)
[2020-06-10] MEDS: ACETAMINOPHEN 650 MG/20.3 ML LIQUID UDC NG PRN ×3 (08:39→22:06)
[2020-06-10] MEDS ORDERED: AMIODARONE HCL 200 MG TABLET GT SCH (09:00)
[2020-06-10] MEDS ORDERED: VANCOMYCIN IV 1,000 MG in IV DEXTROSE 5% 250 ML IV SCH (10:00)
[2020-06-10 10:22] LABS: BAND % (MANUAL) 3 % (0-10); LYMPHOCYTES % (MANUAL) 3 % (20-40); MONOCYTES % (MANUAL) 7 % (2-10); NEUTROPHILS % (MANUAL) 87 % (42-75)
[2020-06-10] MEDS: VITAL AF 1.2 1,000 ML LIQUID GT PRN (11:37)
[2020-06-10] MEDS: VANCOMYCIN FOR PO/GT/NG USE PO SCH ×2 (18:33→23:25)
[2020-06-10 18:44] LABS: NEUTROPHILS % (MANUAL) 0 % (42-75)
[2020-06-11] VITALS (26 sets, daily range): BP systolic 102–178; BP diastolic 65–108
[2020-06-11] MEDS: IV NS 1000 ML 1,000 ML IV PRN (02:45)
[2020-06-11] MEDS: ACETAMINOPHEN 650 MG/20.3 ML LIQUID UDC NG PRN ×2 (03:33→15:05)
[2020-06-11] MEDS: MORPHINE SULFATE 4 MG/1 ML DISP.SYRIN IV PRN ×2 (04:38→15:06)
[2020-06-11] MEDS: VANCOMYCIN FOR PO/GT/NG USE PO SCH ×4 (05:13→23:58)
[2020-06-11] MEDS: METRONIDAZOLE 500 MG TABLET PO SCH ×3 (05:13→20:45)
[2020-06-11 05:43] LABS: BASOPHILS % (AUTO) 0.5 % (0.0-2.0); EOSINOPHILS # (AUTO) 0.1 K/uL (0.0-0.7); EOSINOPHILS % (AUTO) 0.6 % (0.0-7.0); HEMATOCRIT 26.3 % (31.2-41.9); LYMPHOCYTES # (AUTO) 0.1 K/uL (20.0-40.0); LYMPHOCYTES % (AUTO) 1.5 % (20.5-51.5); MEAN CORPUSCULAR HEMOGLOBIN 30.1 uug (24.7-32.8); MEAN CORPUSCULAR HGB CONC 34 g/dL (32.3-35.6); MEAN CORPUSCULAR VOLUME 87.9 fL (75.5-95.3); MONOCYTES # (AUTO) 0.2 K/uL (2.0-10.0); MONOCYTES % (AUTO) 2.2 % (0.0-11.0); NEUTROPHILS # (AUTO) 8.9 K/uL (1.8-8.9); NEUTROPHILS % (AUTO) 95.2 % (38.5-71.5); RED BLOOD CELL COUNT(AUTO) 2.99 MIL/uL (3.63-4.92); WHITE BLOOD COUNT (AUTO) 9.4 K/uL (3.8-11.8)
[2020-06-11 05:58] LABS: PLATELET COUNT (AUTO) 46 K/uL (179-408)
[2020-06-11 06:07] LABS: BILIRUBIN,TOTAL 0.7 mg/dL (0.2-1.0); CREATININE 1.1 mg/dL (0.6-1.3); MAGNESIUM 1.8 mg/dL (1.8-2.4); PHOSPHOROUS 2.3 mg/dL (2.5-4.9); TOTAL PROTEIN, SERUM 6.2 g/dL (6.4-8.2)
[2020-06-11 06:16] LABS: POTASSIUM 2.8 mmol/L (3.5-5.1)
[2020-06-11] MEDS: AMIODARONE HCL 200 MG TABLET GT SCH (06:58)
[2020-06-11] MEDS: POTASSIUM CHLORIDE 50 ML IV SCH ×6 (07:22→12:45)
[2020-06-11] MEDS: levETIRAcetam 500 MG/5 ML LIQUID UDC GT SCH ×2 (07:48→20:43)
[2020-06-11] MEDS: MEROPENEM 1 G in IV NORMAL SALINE 100 ML IV SCH ×2 (07:49→20:44)
[2020-06-11] MEDS: DIAZEPAM 5 MG TABLET GT SCH ×2 (07:49→20:44)
[2020-06-11] MEDS: FAMOTIDINE. 20 MG/2 ML VIAL IV SCH ×2 (07:49→20:45)
[2020-06-11] MEDS: VITAL AF 1.2 1,000 ML LIQUID GT PRN (08:08)
[2020-06-11] MEDS ORDERED: POTASSIUM PHOSPHATE MM 15 MMOL in IV NORMAL SALINE 250 ML IV ONE (09:00)
[2020-06-11] MEDS: PHENOBARBITAL 32.4 MG TABLET GT SCH ×2 (09:14→20:44)
[2020-06-11 14:04] LABS: BAND % (MANUAL) 9 % (0-10); LYMPHOCYTES % (MANUAL) 1 % (20-40); MONOCYTES % (MANUAL) 4 % (2-10); NEUTROPHILS % (MANUAL) 86 % (42-75)
[2020-06-11] MEDS: Z GUARD REMEDY PASTE 57 GM TUBE TOP PRN (20:42)
[2020-06-12] VITALS (24 sets, daily range): BP systolic 132–174; BP diastolic 88–110
[2020-06-12] MEDS: MORPHINE SULFATE 4 MG/1 ML DISP.SYRIN IV PRN (02:09)
[2020-06-12 05:27] LABS: BASOPHILS % (AUTO) 0.3 % (0.0-2.0); EOSINOPHILS # (AUTO) 0.1 K/uL (0.0-0.7); HEMATOCRIT 24.7 % (31.2-41.9); HEMOGLOBIN 8.4 g/dL (10.9-14.3); LYMPHOCYTES # (AUTO) 0.5 K/uL (20.0-40.0); LYMPHOCYTES % (AUTO) 8.4 % (20.5-51.5); MEAN CORPUSCULAR HEMOGLOBIN 30.1 uug (24.7-32.8); MEAN CORPUSCULAR HGB CONC 34 g/dL (32.3-35.6); MEAN CORPUSCULAR VOLUME 88.1 fL (75.5-95.3); MONOCYTES # (AUTO) 0.4 K/uL (2.0-10.0); MONOCYTES % (AUTO) 6.5 % (0.0-11.0); NEUTROPHILS # (AUTO) 5.1 K/uL (1.8-8.9); NEUTROPHILS % (AUTO) 82.8 % (38.5-71.5); WHITE BLOOD COUNT (AUTO) 6.1 K/uL (3.8-11.8)
[2020-06-12] MEDS: METRONIDAZOLE 500 MG TABLET PO SCH ×3 (05:35→20:26)
[2020-06-12] MEDS: VANCOMYCIN FOR PO/GT/NG USE PO SCH ×4 (05:35→23:59)
[2020-06-12 05:44] LABS: MAGNESIUM 1.6 mg/dL (1.8-2.4); PHOSPHOROUS 2.6 mg/dL (2.5-4.9); POTASSIUM 3.5 mmol/L (3.5-5.1)
[2020-06-12 05:46] LABS: PLATELET COUNT (AUTO) 47 K/uL (179-408)
[2020-06-12] MEDS: AMIODARONE HCL 200 MG TABLET GT SCH (08:01)
[2020-06-12] MEDS: DIAZEPAM 5 MG TABLET GT SCH ×2 (08:01→20:22)
[2020-06-12] MEDS: PHENOBARBITAL 32.4 MG TABLET GT SCH ×2 (08:01→20:23)
[2020-06-12] MEDS: MAGNESIUM SULFATE/D5W 100 ML IV SCH ×2 (08:01→09:03)
[2020-06-12] MEDS: FAMOTIDINE. 20 MG/2 ML VIAL IV SCH ×2 (08:02→20:21)
[2020-06-12] MEDS: VITAL AF 1.2 1,000 ML LIQUID GT PRN (08:02)
[2020-06-12] MEDS: IV NS 1000 ML 1,000 ML IV PRN (08:02)
[2020-06-12] MEDS: levETIRAcetam 500 MG/5 ML LIQUID UDC GT SCH ×2 (08:03→20:24)
[2020-06-12] MEDS: MEROPENEM 1 G in IV NORMAL SALINE 100 ML IV SCH ×2 (08:03→20:23)
[2020-06-12 14:21] LABS: BAND % (MANUAL) 1 % (0-10); LYMPHOCYTES % (MANUAL) 10 % (20-40); MONOCYTES % (MANUAL) 6 % (2-10); NEUTROPHILS % (MANUAL) 83 % (42-75)
[2020-06-12] MEDS: ACETAMINOPHEN 650 MG/20.3 ML LIQUID UDC NG PRN ×2 (20:20→23:59)
[2020-06-12] MEDS: METOPROLOL TARTRATE 25 MG TABLET PO SCH (20:22)
[2020-06-13] VITALS (24 sets, daily range): BP systolic 125–163; BP diastolic 81–112
[2020-06-13 04:56] LABS: BASOPHILS # (AUTO) 0.1 K/uL (0.0-8.0); BASOPHILS % (AUTO) 0.8 % (0.0-2.0); EOSINOPHILS # (AUTO) 0.1 K/uL (0.0-0.7); EOSINOPHILS % (AUTO) 1.9 % (0.0-7.0); HEMATOCRIT 23.4 % (31.2-41.9); HEMOGLOBIN 8.1 g/dL (10.9-14.3); LYMPHOCYTES # (AUTO) 0.9 K/uL (20.0-40.0); LYMPHOCYTES % (AUTO) 14.2 % (20.5-51.5); MEAN CORPUSCULAR HGB CONC 35 g/dL (32.3-35.6); MEAN CORPUSCULAR VOLUME 87.1 fL (75.5-95.3); MONOCYTES # (AUTO) 0.6 K/uL (2.0-10.0); MONOCYTES % (AUTO) 8.8 % (0.0-11.0); NEUTROPHILS # (AUTO) 4.8 K/uL (1.8-8.9); NEUTROPHILS % (AUTO) 74.3 % (38.5-71.5); PLATELET COUNT (AUTO) 59 K/uL (179-408); RED BLOOD CELL COUNT(AUTO) 2.69 MIL/uL (3.63-4.92); WHITE BLOOD COUNT (AUTO) 6.4 K/uL (3.8-11.8)
[2020-06-13 05:12] LABS: MAGNESIUM 1.7 mg/dL (1.8-2.4); POTASSIUM 3.1 mmol/L (3.5-5.1)
[2020-06-13 06:02] LABS: ABG BASE EXCESS 0.1 mmol/L; ABG HCO3 24.2 mmol/L; ABG PCO2 36.4 mmHg (35.0-45.0); ABG PO2 89.9 mmHg (75.0-100.0); ABG SITE RIGHT RADIAL; ABG TOTAL HEMOGLOBIN 8.6 G/dL (12.0-16.0); COHb 0.8 % (0.5-1.5); MetHb 0.3 % (0.0-1.5); O2Hb 96.3 % (94.0-97.0); VENT MODE VENT - A/C; VT, ABG 500 mL
[2020-06-13] MEDS: METRONIDAZOLE 500 MG TABLET PO SCH ×3 (06:07→21:50)
[2020-06-13] MEDS: VANCOMYCIN FOR PO/GT/NG USE PO SCH ×4 (06:07→23:57)
[2020-06-13] MEDS: PHENOBARBITAL 32.4 MG TABLET GT SCH ×2 (09:40→20:19)
[2020-06-13] MEDS: DIAZEPAM 5 MG TABLET GT SCH ×2 (09:41→20:19)
[2020-06-13] MEDS: levETIRAcetam 500 MG/5 ML LIQUID UDC GT SCH ×2 (09:42→20:20)
[2020-06-13] MEDS: METOPROLOL TARTRATE 25 MG TABLET PO SCH ×2 (09:43→20:20)
[2020-06-13] MEDS: AMIODARONE HCL 200 MG TABLET GT SCH (09:46)
[2020-06-13] MEDS: MEROPENEM 1 G in IV NORMAL SALINE 100 ML IV SCH ×2 (09:46→20:56)
[2020-06-13] MEDS: FAMOTIDINE. 20 MG/2 ML VIAL IV SCH ×2 (09:46→20:20)
[2020-06-13] MEDS: MAGNESIUM SULFATE/D5W 100 ML IV SCH ×2 (09:48→10:05)
[2020-06-13] MEDS ORDERED: POTASSIUM PHOSPHATE MM 15 MMOL in IV NORMAL SALINE 250 ML IV ONE (10:00)
[2020-06-13] MEDS: ACETAMINOPHEN 650 MG/20.3 ML LIQUID UDC NG PRN ×2 (12:22→19:45)
[2020-06-14] VITALS (23 sets, daily range): BP systolic 116–156; BP diastolic 61–103
[2020-06-14] MEDS: ACETAMINOPHEN 650 MG/20.3 ML LIQUID UDC NG PRN ×2 (01:23→18:41)
[2020-06-14 05:02] LABS: BASOPHILS % (AUTO) 0.3 % (0.0-2.0); EOSINOPHILS # (AUTO) 0.2 K/uL (0.0-0.7); EOSINOPHILS % (AUTO) 2.7 % (0.0-7.0); HEMATOCRIT 22.4 % (31.2-41.9); HEMOGLOBIN 7.6 g/dL (10.9-14.3); LYMPHOCYTES % (AUTO) 15.9 % (20.5-51.5); MEAN CORPUSCULAR HEMOGLOBIN 29.7 uug (24.7-32.8); MEAN CORPUSCULAR HGB CONC 34 g/dL (32.3-35.6); MEAN CORPUSCULAR VOLUME 87.4 fL (75.5-95.3); MONOCYTES # (AUTO) 0.5 K/uL (2.0-10.0); MONOCYTES % (AUTO) 7.6 % (0.0-11.0); NEUTROPHILS # (AUTO) 4.6 K/uL (1.8-8.9); NEUTROPHILS % (AUTO) 73.5 % (38.5-71.5); RED BLOOD CELL COUNT(AUTO) 2.56 MIL/uL (3.63-4.92); WHITE BLOOD COUNT (AUTO) 6.2 K/uL (3.8-11.8)
[2020-06-14] MEDS: VANCOMYCIN FOR PO/GT/NG USE PO SCH ×4 (05:07→23:55)
[2020-06-14] MEDS: METRONIDAZOLE 500 MG TABLET PO SCH ×3 (05:07→21:49)
[2020-06-14 05:14] LABS: CREATININE 0.8 mg/dL (0.6-1.3); MAGNESIUM 1.7 mg/dL (1.8-2.4); PHOSPHOROUS 3.2 mg/dL (2.5-4.9)
[2020-06-14 05:20] LABS: PLATELET COUNT (AUTO) 78 K/uL (179-408)
[2020-06-14] MEDS ORDERED: POTASSIUM CHLORIDE 20 MEQ POWDER PACKET GT ONE (07:15)
[2020-06-14] MEDS: POTASSIUM CHLORIDE 50 ML IV SCH ×4 (07:24→10:43)
[2020-06-14] MEDS: MAGNESIUM SULFATE/D5W 100 ML IV SCH ×3 (07:36→10:07)
[2020-06-14] MEDS: AMIODARONE HCL 200 MG TABLET GT SCH (08:00)
[2020-06-14] MEDS: DIAZEPAM 5 MG TABLET GT SCH ×2 (08:01→20:15)
[2020-06-14] MEDS: PHENOBARBITAL 32.4 MG TABLET GT SCH ×2 (08:02→20:15)
[2020-06-14] MEDS: levETIRAcetam 500 MG/5 ML LIQUID UDC GT SCH ×2 (08:02→20:15)
[2020-06-14] MEDS: MEROPENEM 1 G in IV NORMAL SALINE 100 ML IV SCH ×2 (08:02→20:15)
[2020-06-14] MEDS: FAMOTIDINE. 20 MG/2 ML VIAL IV SCH (08:03)
[2020-06-14] MEDS: METOPROLOL TARTRATE 25 MG TABLET PO SCH ×2 (08:03→20:15)
[2020-06-14] MEDS: VITAL AF 1.2 1,000 ML LIQUID GT PRN (10:47)
[2020-06-14] MEDS: FAMOTIDINE 20 MG TABLET GT SCH (20:15)
[2020-06-14] MEDS: Z GUARD REMEDY PASTE 57 GM TUBE TOP PRN (20:16)
[2020-06-15] VITALS (24 sets, daily range): BP systolic 108–151; BP diastolic 66–98
[2020-06-15] MEDS: IV NORMAL SALINE 250 ML IV PRN (01:14)
[2020-06-15 05:15] LABS: BASOPHILS % (AUTO) 0.3 % (0.0-2.0); EOSINOPHILS # (AUTO) 0.2 K/uL (0.0-0.7); EOSINOPHILS % (AUTO) 2.9 % (0.0-7.0); LYMPHOCYTES # (AUTO) 1.2 K/uL (20.0-40.0); LYMPHOCYTES % (AUTO) 20.7 % (20.5-51.5); MEAN CORPUSCULAR HEMOGLOBIN 29.9 uug (24.7-32.8); MEAN CORPUSCULAR HGB CONC 34 g/dL (32.3-35.6); MEAN CORPUSCULAR VOLUME 87.2 fL (75.5-95.3); MONOCYTES # (AUTO) 0.4 K/uL (2.0-10.0); MONOCYTES % (AUTO) 6.5 % (0.0-11.0); NEUTROPHILS # (AUTO) 3.9 K/uL (1.8-8.9); NEUTROPHILS % (AUTO) 69.6 % (38.5-71.5); PLATELET COUNT (AUTO) 122 K/uL (179-408); WHITE BLOOD COUNT (AUTO) 5.6 K/uL (3.8-11.8)
[2020-06-15] MEDS: METRONIDAZOLE 500 MG TABLET PO SCH ×3 (05:24→22:01)
[2020-06-15] MEDS: VANCOMYCIN FOR PO/GT/NG USE PO SCH ×3 (05:24→17:21)
[2020-06-15 05:25] LABS: BILIRUBIN,DIRECT 0.2 mg/dL (0.0-0.2); BILIRUBIN,TOTAL 0.3 mg/dL (0.2-1.0); CREATININE 0.6 mg/dL (0.6-1.3); MAGNESIUM 2.1 mg/dL (1.8-2.4); PHOSPHOROUS 3.2 mg/dL (2.5-4.9); POTASSIUM 3.9 mmol/L (3.5-5.1); TOTAL PROTEIN, SERUM 5.7 g/dL (6.4-8.2)
[2020-06-15 05:28] LABS: HEMATOCRIT 20.8 % (31.2-41.9); HEMOGLOBIN 7.1 g/dL (10.9-14.3); RED BLOOD CELL COUNT(AUTO) 2.39 MIL/uL (3.63-4.92)
[2020-06-15] MEDS: levETIRAcetam 500 MG/5 ML LIQUID UDC GT SCH ×2 (08:22→20:40)
[2020-06-15] MEDS: AMIODARONE HCL 200 MG TABLET GT SCH (08:26)
[2020-06-15] MEDS: METOPROLOL TARTRATE 25 MG TABLET PO SCH ×2 (08:28→20:39)
[2020-06-15] MEDS: FAMOTIDINE 20 MG TABLET GT SCH ×2 (08:30→20:39)
[2020-06-15] MEDS: PHENOBARBITAL 32.4 MG TABLET GT SCH ×2 (08:30→20:39)
[2020-06-15] MEDS: DIAZEPAM 5 MG TABLET GT SCH ×2 (08:31→20:39)
[2020-06-15] MEDS: MEROPENEM 1 G in IV NORMAL SALINE 100 ML IV SCH ×2 (08:31→20:40)
[2020-06-15] MEDS ORDERED: FUROSEMIDE 20 MG/2 ML VIAL IV PRN (09:30)
[2020-06-15] MEDS: VITAL AF 1.2 1,000 ML LIQUID GT PRN (12:14)
[2020-06-15] MEDS: PROTEIN SUPPLEMENT (PROSTAT) 30 ML LIQUID GT SCH ×2 (12:14→16:13)
[2020-06-15] MEDS: SULFAMETH/TRIMETH 800/160 MG TABLET PO SCH (20:41)
[2020-06-16] VITALS (27 sets, daily range): BP systolic 116–172; BP diastolic 74–108
[2020-06-16] MEDS: VANCOMYCIN FOR PO/GT/NG USE PO SCH ×5 (00:59→23:10)
[2020-06-16 05:15] LABS: BASOPHILS % (AUTO) 0.4 % (0.0-2.0); EOSINOPHILS # (AUTO) 0.2 K/uL (0.0-0.7); EOSINOPHILS % (AUTO) 3.4 % (0.0-7.0); HEMATOCRIT 21.9 % (31.2-41.9); HEMOGLOBIN 7.5 g/dL (10.9-14.3); LYMPHOCYTES # (AUTO) 1.1 K/uL (20.0-40.0); LYMPHOCYTES % (AUTO) 23.2 % (20.5-51.5); MEAN CORPUSCULAR HEMOGLOBIN 29.7 uug (24.7-32.8); MEAN CORPUSCULAR HGB CONC 34 g/dL (32.3-35.6); MEAN CORPUSCULAR VOLUME 86.6 fL (75.5-95.3); MONOCYTES # (AUTO) 0.3 K/uL (2.0-10.0); MONOCYTES % (AUTO) 6.1 % (0.0-11.0); NEUTROPHILS # (AUTO) 3.2 K/uL (1.8-8.9); NEUTROPHILS % (AUTO) 66.9 % (38.5-71.5); PLATELET COUNT (AUTO) 158 K/uL (179-408); RED BLOOD CELL COUNT(AUTO) 2.53 MIL/uL (3.63-4.92); WHITE BLOOD COUNT (AUTO) 4.8 K/uL (3.8-11.8)
[2020-06-16] MEDS: METRONIDAZOLE 500 MG TABLET PO SCH ×3 (05:21→21:36)
[2020-06-16] MEDS: IV NORMAL SALINE 250 ML IV PRN (05:28)
[2020-06-16 05:39] LABS: CREATININE 0.6 mg/dL (0.6-1.3); MAGNESIUM 1.8 mg/dL (1.8-2.4); PHOSPHOROUS 3.5 mg/dL (2.5-4.9)
[2020-06-16 08:09] LABS: *OCCULT BLOOD STOOL NEGATIVE (NEGATIVE)
[2020-06-16] MEDS: FAMOTIDINE 20 MG TABLET GT SCH ×2 (08:22→21:35)
[2020-06-16] MEDS: SULFAMETH/TRIMETH 800/160 MG TABLET PO SCH ×2 (08:22→21:35)
[2020-06-16] MEDS: AMIODARONE HCL 200 MG TABLET GT SCH (08:22)
[2020-06-16] MEDS: levETIRAcetam 500 MG/5 ML LIQUID UDC GT SCH ×2 (08:22→21:35)
[2020-06-16] MEDS: DIAZEPAM 5 MG TABLET GT SCH ×2 (08:23→21:35)
[2020-06-16] MEDS: PHENOBARBITAL 32.4 MG TABLET GT SCH ×2 (08:23→21:41)
[2020-06-16] MEDS: MEROPENEM 1 G in IV NORMAL SALINE 100 ML IV SCH ×2 (08:23→21:34)
[2020-06-16] MEDS: METOPROLOL TARTRATE 25 MG TABLET PO SCH ×2 (08:23→21:36)
[2020-06-16] MEDS: PROTEIN SUPPLEMENT (PROSTAT) 30 ML LIQUID GT SCH ×2 (08:24→17:17)
[2020-06-16] MEDS: VITAL AF 1.2 1,000 ML LIQUID GT PRN (10:23)
[2020-06-16] MEDS ORDERED: FUROSEMIDE 20 MG/2 ML VIAL IV ONE (17:30)
[2020-06-16] MEDS ORDERED: DOSING PER PHARMACY-TOBRAMY NEB/INHALATION XX PRN (18:45)
[2020-06-16] MEDS ORDERED: TOBRAMYCIN SULFATE IV SCH ×2 (20:00→20:30)
[2020-06-16] MEDS ORDERED: DEXTROSE 5% IV SCH ×2 (20:00→20:30)
[2020-06-16] MEDS: TOBRAMYCIN SULFATE 80 MG/2 ML VIAL NEB SCH ×2 (21:35→22:41)
[2020-06-16] MEDS: ACETAMINOPHEN 650 MG/20.3 ML LIQUID UDC NG PRN (23:10)
[2020-06-16] MEDS: MORPHINE SULFATE 4 MG/1 ML DISP.SYRIN IV PRN (23:10)
[2020-06-17] VITALS (23 sets, daily range): BP systolic 90–160; BP diastolic 57–97
[2020-06-17 05:11] LABS: BASOPHILS % (AUTO) 0.4 % (0.0-2.0); EOSINOPHILS # (AUTO) 0.1 K/uL (0.0-0.7); EOSINOPHILS % (AUTO) 2.5 % (0.0-7.0); HEMATOCRIT 24.8 % (31.2-41.9); LYMPHOCYTES % (AUTO) 22.7 % (20.5-51.5); MEAN CORPUSCULAR HEMOGLOBIN 31.3 uug (24.7-32.8); MEAN CORPUSCULAR HGB CONC 36 g/dL (32.3-35.6); MEAN CORPUSCULAR VOLUME 86.3 fL (75.5-95.3); MONOCYTES # (AUTO) 0.3 K/uL (2.0-10.0); MONOCYTES % (AUTO) 6.4 % (0.0-11.0); NEUTROPHILS # (AUTO) 3.1 K/uL (1.8-8.9); PLATELET COUNT (AUTO) 175 K/uL (179-408); RED BLOOD CELL COUNT(AUTO) 2.87 MIL/uL (3.63-4.92); WHITE BLOOD COUNT (AUTO) 4.5 K/uL (3.8-11.8)
[2020-06-17 05:23] LABS: CREATININE 0.6 mg/dL (0.6-1.3); MAGNESIUM 1.5 mg/dL (1.8-2.4); PHOSPHOROUS 3.6 mg/dL (2.5-4.9); POTASSIUM 3.5 mmol/L (3.5-5.1)
[2020-06-17] MEDS: VANCOMYCIN FOR PO/GT/NG USE PO SCH ×4 (05:40→23:43)
[2020-06-17] MEDS: METRONIDAZOLE 500 MG TABLET PO SCH ×3 (05:40→21:44)
[2020-06-17] MEDS: levETIRAcetam 500 MG/5 ML LIQUID UDC GT SCH ×2 (08:15→20:40)
[2020-06-17] MEDS: AMIODARONE HCL 200 MG TABLET GT SCH (08:15)
[2020-06-17] MEDS: PHENOBARBITAL 32.4 MG TABLET GT SCH ×2 (08:17→20:47)
[2020-06-17] MEDS: FAMOTIDINE 20 MG TABLET GT SCH ×2 (08:17→20:41)
[2020-06-17] MEDS: DIAZEPAM 5 MG TABLET GT SCH ×2 (08:17→20:41)
[2020-06-17] MEDS: METOPROLOL TARTRATE 25 MG TABLET GT SCH ×2 (08:17→20:44)
[2020-06-17] MEDS: SULFAMETH/TRIMETH 800/160 MG TABLET PO SCH ×2 (08:17→20:40)
[2020-06-17] MEDS: PROTEIN SUPPLEMENT (PROSTAT) 30 ML LIQUID GT SCH ×2 (08:18→16:48)
[2020-06-17] MEDS: TOBRAMYCIN SULFATE 80 MG/2 ML VIAL NEB SCH ×2 (08:31→20:44)
[2020-06-17] MEDS ORDERED: POTASSIUM CHLORIDE 20 MEQ POWDER PACKET GT ONE (09:00)
[2020-06-17] MEDS: MAGNESIUM SULFATE/D5W 100 ML IV SCH ×2 (09:00→10:12)
[2020-06-17] MEDS: MEROPENEM 1 G in IV NORMAL SALINE 100 ML IV SCH ×2 (09:01→20:41)
[2020-06-18] VITALS (15 sets, daily range): BP systolic 96–141; BP diastolic 61–83
[2020-06-18 05:28] LABS: BASOPHILS % (AUTO) 0.5 % (0.0-2.0); EOSINOPHILS # (AUTO) 0.1 K/uL (0.0-0.7); EOSINOPHILS % (AUTO) 2.5 % (0.0-7.0); LYMPHOCYTES % (AUTO) 24.1 % (20.5-51.5); MEAN CORPUSCULAR HEMOGLOBIN 29.8 uug (24.7-32.8); MEAN CORPUSCULAR HGB CONC 35 g/dL (32.3-35.6); MEAN CORPUSCULAR VOLUME 86.3 fL (75.5-95.3); MONOCYTES # (AUTO) 0.3 K/uL (2.0-10.0); NEUTROPHILS # (AUTO) 2.6 K/uL (1.8-8.9); NEUTROPHILS % (AUTO) 65.9 % (38.5-71.5); PLATELET COUNT (AUTO) 201 K/uL (179-408); RED BLOOD CELL COUNT(AUTO) 3.36 MIL/uL (3.63-4.92)
[2020-06-18] MEDS: METRONIDAZOLE 500 MG TABLET PO SCH ×2 (05:33→13:54)
[2020-06-18] MEDS: VANCOMYCIN FOR PO/GT/NG USE PO SCH ×3 (05:33→17:50)
[2020-06-18 05:43] LABS: CREATININE 0.6 mg/dL (0.6-1.3); MAGNESIUM 1.9 mg/dL (1.8-2.4); PHOSPHOROUS 3.3 mg/dL (2.5-4.9); POTASSIUM 4.1 mmol/L (3.5-5.1)
[2020-06-18] MEDS: TOBRAMYCIN SULFATE 80 MG/2 ML VIAL NEB SCH (08:10)
[2020-06-18] MEDS: AMIODARONE HCL 200 MG TABLET GT SCH (08:21)
[2020-06-18] MEDS: PHENOBARBITAL 32.4 MG TABLET GT SCH (08:21)
[2020-06-18] MEDS: DIAZEPAM 5 MG TABLET GT SCH (08:21)
[2020-06-18] MEDS: FAMOTIDINE 20 MG TABLET GT SCH (08:21)
[2020-06-18] MEDS: METOPROLOL TARTRATE 25 MG TABLET GT SCH (08:25)
[2020-06-18] MEDS: levETIRAcetam 500 MG/5 ML LIQUID UDC GT SCH (08:26)
[2020-06-18] MEDS: MEROPENEM 1 G in IV NORMAL SALINE 100 ML IV SCH (08:26)
[2020-06-18] MEDS: PROTEIN SUPPLEMENT (PROSTAT) 30 ML LIQUID GT SCH ×2 (08:30→17:49)
[2020-06-18] MEDS: SULFAMETH/TRIMETH 800/160 MG TABLET PO SCH (08:42)
[2020-06-18] MEDS ORDERED: ENOXAPARIN SODIUM 40 MG/0.4 ML DISP.SYRIN SQ SCH (09:30)
[2020-06-18] MEDS: VITAL AF 1.2 1,000 ML LIQUID GT PRN (10:27)
[2020-06-18] MEDS ORDERED: Sulfameth/Trimeth 800/160 Mg PO (15:02)
[2020-06-18] MEDS ORDERED: TOBR40VI2 NEB (15:02)
[2020-06-18] MEDS ORDERED: MERO500V21 IV (15:02)
[2020-06-18] MEDS ORDERED: PROT30LI GT (15:02)
[2020-06-18] MEDS ORDERED: VANC500V PO (15:02)
[2020-06-18] MEDS ORDERED: TOBR40VI2 XX (15:02)
[2020-06-18] MEDS ORDERED: METR-147 PO (15:02)
== END 2020-06-18 18:30 | DRG 720 ==
LOC: ER 09:54 → CCU 16:29
PROVIDERS: ADMIT Internal Medicine; ATTEND Internal Medicine
PROC: 5A1955Z Respiratory Ventilation, Greater than 96 Consecutive Hours (ICD-10-PCS; principal; 2020-06-09)
PROC: 02HV33Z Insertion of Infusion Device into Superior Vena Cava, Percutaneous Approach (ICD-10-PCS; principal; 2020-06-09)
PROC: B548ZZA Ultrasonography of Superior Vena Cava, Guidance (ICD-10-PCS; principal; 2020-06-09)
PROC: 30233N1 Transfusion of Nonautologous Red Blood Cells into Peripheral Vein, Percutaneous Approach (ICD-10-PCS; 2020-06-16)
DX: A41.51 Sepsis due to Escherichia coli [E. coli] (principal); J69.0 Pneumonitis due to inhalation of food and vomit; R65.21 Severe sepsis with septic shock; N17.0 Acute kidney failure with tubular necrosis; J96.22 Acute and chronic respiratory failure with hypercapnia; J96.21 Acute and chronic respiratory failure with hypoxia; E43 Unspecified severe protein-calorie malnutrition; N39.0 Urinary tract infection, site not specified; Z16.12 Extended spectrum beta lactamase (ESBL) resistance; D63.8 Anemia in other chronic diseases classified elsewhere; D68.69 Other thrombophilia; E78.5 Hyperlipidemia, unspecified; E87.6 Hypokalemia; G40.909 Epilepsy, unspecified, not intractable, without status epilepticus; G93.1 Anoxic brain damage, not elsewhere classified; E83.42 Hypomagnesemia; E83.39 Other disorders of phosphorus metabolism; E86.0 Dehydration; D69.6 Thrombocytopenia, unspecified; I25.10 Atherosclerotic heart disease of native coronary artery without angina pectoris; I10 Essential (primary) hypertension; I48.0 Paroxysmal atrial fibrillation; R13.10 Dysphagia, unspecified; I69.351 Hemiplegia and hemiparesis following cerebral infarction affecting right dominant side; Z87.01 Personal history of pneumonia (recurrent); Z87.440 Personal history of urinary (tract) infections; Z93.0 Tracheostomy status; Z99.11 Dependence on respirator [ventilator] status; A04.72 Enterocolitis due to Clostridium difficile, not specified as recurrent; E87.0 Hyperosmolality and hypernatremia; K76.0 Fatty (change of) liver, not elsewhere classified; Z93.1 Gastrostomy status; J98.11 Atelectasis
CPT/HCPCS: 36415; 36569; 36600; 70030-TC; 71045; 83605; 83735; 84100; 85025; 85730; 86850; 86900; 86901; 86920; 87040; 87070; 87077; 87086; 93005; 94002; 94003; 94640; 94664; A9150; G0378; J1650; J1940; J2185; J2270; J2543; J3260; J3370; J3475; J3480; J3490; J7040; J7050; J7060; P9016-BL; P9021; Q9963; U0003

== ENCOUNTER 2020-06-18 18:42 | Inpatient (IN) | payer OTHER ==
[~2020-06-18] VITALS: Ht 162.6 cm; Wt 72.6 kg
--- NOTE | 2020-06-18 18:15 | NUR ---
PT RECEIVED FROM CCU RT. PT PLACED ON HT-50 VENT - SETTINGS OF AC 14, VT 500, PEEP +5, FIO2 30%. NO S/S OF RESPIRATORY DISTRESS NOTED. VENT PLUGGED INTO RED EMERGENCY OUTLET. AMBU BAG AND BACK UP TRACH ARE AT BEDSIDE. WILL ENDORSE TO DIRECTOR OF REGULATORY AFFAIRS RT.
[2020-06-18 18:22] VITALS: BP 135/87
--- NOTE | 2020-06-18 18:22 | NUR ---
PT ADMITTED FROM CCU ACCOMPANIED WITH THE RT AND 2 NURSES,REPORT RECEIVED FROM RICK RN,NO RESPIRATORY DISTRESS NOTED HAS TRACH IN PLACE AND PATENT,NO REDNESS OR S/S OF INFECTION ON THE TRACH SITE,CONNECTED TO VENTILATOR TV 500,AC 14,F102 30%PEEP 5,ABDOMEN SOFT NO DISTENDED ,HAS PEG IN PLACE,WITH HYPERGRANULATED TISSUE AROUND THE GT SITE,HAS PICC LINE ON THE R UPPER ARM ,TRIPLE LUMEN,NO S/S OF INFECTION NOTED,F/C IN PLACE INTACT.HAS REDNESS ON THE R BUTTOCKS,L ISCHIAL,PERINEAL REDNESS,AND INNER THIGH OLD SKIN TEAR,EDEMA ON BOTH ARMS.HOB ELEVATED.
[~2020-06-18 18:42] MED LIST changes: +AMIN30LI2 GT; +CEFT1VIA15 IV; +MERO500V21 IV; +METR-147 PO; +POTA10CA43 IV; +PROT30LI GT; +Sulfameth/Trimeth 800/160 Mg PO; +TOBR40VI2 NEB; +TOBR40VI2 XX; +VANC500V PO
--- NOTE | 2020-06-18 20:25 | NUR ---
dr mcclelland called and received admitting orders, eyes open, no follow simple commands, trach to vent, suction ed with small amount of thin white secretion, rectal tube patent, draining brown color stool, voss cath patent, draining clear yellow urine, right upper arm picc line patent, flushed per protocol,repositioned and made pt comfortable.
[2020-06-18 20:48] VITALS: BP 136/80
[2020-06-18] MEDS ORDERED: levETIRAcetam 500 MG TABLET GT SCH (22:15)
[2020-06-18] MEDS: PHENOBARBITAL 32.4 MG TABLET GT SCH (22:28)
[2020-06-18] MEDS: DIAZEPAM 5 MG TABLET PO SCH (22:29)
--- NOTE | 2020-06-18 23:00 | NUR ---
father,rai glenda called and notified of admission.
[2020-06-19] VITALS (7 sets, daily range): BP systolic 114–147; BP diastolic 74–90
[2020-06-19] MEDS: SULFAMETH/TRIMETH 800/160 MG TABLET GT SCH ×3 (01:56→20:36)
[2020-06-19] MEDS: METRONIDAZOLE 500 MG TABLET GT SCH ×4 (01:56→21:10)
[2020-06-19] MEDS: METOPROLOL TARTRATE 25 MG TABLET GT SCH ×3 (01:57→20:37)
--- NOTE | 2020-06-19 02:00 | NUR ---
started on metronidazole 500mg for c.diff, sulfameth/trimeth 800/160mg for uti, meropenum 500mg iv for esbl in urine, no adverse reaction noted, afebrile, no respiratory distress noted.
[2020-06-19] MEDS ORDERED: MEROPENEM 500 MG in IV NORMAL SALINE 50 ML IV SCH (02:15)
[2020-06-19] MEDS ORDERED: MEROPENEM 500 MG in IV NORMAL SALINE 50 ML IV ONE (02:45)
[2020-06-19] MEDS ORDERED: MEROPENEM 500MG/NS 50ML PB ***ER PYXIS ONLY IV ONE (02:59)
[2020-06-19] MEDS ORDERED: MEROPENEM 1 G in IV NORMAL SALINE 100 ML IV SCH (09:00)
[2020-06-19] MEDS ORDERED: OMEPRAZOLE 40 MG GT SCH (09:00)
[2020-06-19] MEDS: DIAZEPAM 5 MG TABLET PO SCH (09:41)
[2020-06-19] MEDS ORDERED: ACETAMINOPHEN 650 MG/20.3 ML LIQUID UDC GT PRN ×2 (09:45)
[2020-06-19] MEDS: PHENOBARBITAL 32.4 MG TABLET GT SCH ×2 (09:54→20:37)
[2020-06-19] MEDS ORDERED: POLYVINYL ALCOHOL OPHT DROPS 15 ML BOTTLE OP SCH (10:00)
[2020-06-19] MEDS ORDERED: DIAZEPAM 5 MG TABLET GT SCH (10:00)
[2020-06-19] MEDS ORDERED: ACETAMINOPHEN 650 MG/20 ML UDC- SA PATIENTS-PAIN ONLY GT PRN (11:30)
[2020-06-19] MEDS ORDERED: ACETAMINOPHEN 650 MG/20 ML UDC- SA PATIENTS-FEVER ONLY GT PRN (11:30)
[2020-06-19] MEDS ORDERED: HYDROGEN PEROXIDE 3% 118 ML BOTTLE TP PRN (11:45)
--- NOTE | 2020-06-19 11:57 | NUR ---
Seen and examined by Dr Lora,with new orders noted.
[2020-06-19] MEDS: VANCOMYCIN 125 MG GT SCH ×3 (12:05→23:25)
[2020-06-19] MEDS ORDERED: DIAZEPAM 5 MG TABLET GT PRN (12:30)
[2020-06-19] MEDS: MEROPENEM 500 MG in IV NORMAL SALINE 50 ML IV SCH (15:00)
--- NOTE | 2020-06-19 18:04 | NUR ---
Continue on ivatb ,no adverse reaction noted,picc line triple lumen on the R upper arm intact flushed as ordered.rectal tube in ,place ,F/c in place draining well yellow color urine.
[2020-06-19] MEDS: POLYVINYL ALCOHOL OPHT DROPS 15 ML BOTTLE EACHEYE SCH (18:08)
[2020-06-19] MEDS: HYDROGEN PEROXIDE 3% 118 ML BOTTLE TP SCH (19:17)
[2020-06-19] MEDS: TOBRAMYCIN SULFATE 80 MG/2 ML VIAL NEB SCH (19:17)
[2020-06-19] MEDS: MAGNESIUM OXIDE 400 MG TABLET GT SCH (20:37)
[2020-06-19] MEDS: NEOMY/BACITRA/POLYMYXIN B OINT UD PACKET TP SCH (20:37)
[2020-06-19] MEDS: DIAZEPAM 5 MG TABLET GT SCH (20:37)
[2020-06-19] MEDS: PROTEIN SUPPLEMENT (PROSTAT) 30 ML LIQUID GT SCH (20:37)
[2020-06-19] MEDS: COD LIVER OIL/ZINC OXIDE OINT 113 GM TUBE TP SCH ×2 (20:37)
[2020-06-19] MEDS: ASCORBIC ACID 500 MG TABLET GT SCH (20:37)
[2020-06-19] MEDS: levETIRAcetam 500 MG/5 ML LIQUID UDC GT SCH (20:37)
[2020-06-19] MEDS ORDERED: TOBRAMYCIN SULFATE 80 MG/2 ML VIAL NEB SCH (21:00)
[2020-06-19] MEDS: NORMAL SALINE FLUSH 10 ML DISP.SYRIN IV SCH (21:00)
[2020-06-20] MEDS: MEROPENEM 500 MG in IV NORMAL SALINE 50 ML IV SCH ×2 (03:14→14:43)
[2020-06-20] MEDS: VITAL AF 1.2 1,000 ML LIQUID GT PRN (04:24)
[2020-06-20] MEDS: OMEPRAZOLE 40 MG CAPSULE GT SCH (05:34)
[2020-06-20] MEDS: POLYVINYL ALCOHOL OPHT DROPS 15 ML BOTTLE EACHEYE SCH ×2 (05:34→18:17)
[2020-06-20] MEDS: METRONIDAZOLE 500 MG TABLET GT SCH ×3 (05:34→22:25)
[2020-06-20] MEDS: VANCOMYCIN 125 MG GT SCH ×3 (05:34→18:17)
[2020-06-20] MEDS ORDERED: PANTOPRAZOLE ORAL SUSPENSION 40 MG SUSPDR.PKT GT SCH (06:00)
[2020-06-20 06:01] LABS: BASOPHILS % (AUTO) 0.9 % (0.0-2.0); EOSINOPHILS # (AUTO) 0.1 K/uL (0.0-0.7); EOSINOPHILS % (AUTO) 1.8 % (0.0-7.0); HEMOGLOBIN 8.6 g/dL (10.9-14.3); LYMPHOCYTES # (AUTO) 1.3 K/uL (20.0-40.0); LYMPHOCYTES % (AUTO) 28.7 % (20.5-51.5); MEAN CORPUSCULAR HEMOGLOBIN 30.4 uug (24.7-32.8); MEAN CORPUSCULAR HGB CONC 36 g/dL (32.3-35.6); MEAN CORPUSCULAR VOLUME 85.1 fL (75.5-95.3); MONOCYTES # (AUTO) 0.4 K/uL (2.0-10.0); MONOCYTES % (AUTO) 9.3 % (0.0-11.0); NEUTROPHILS # (AUTO) 2.7 K/uL (1.8-8.9); NEUTROPHILS % (AUTO) 59.3 % (38.5-71.5); PLATELET COUNT (AUTO) 295 K/uL (179-408); RED BLOOD CELL COUNT(AUTO) 2.82 MIL/uL (3.63-4.92); WHITE BLOOD COUNT (AUTO) 4.6 K/uL (3.8-11.8)
[2020-06-20 06:15] LABS: BILIRUBIN,TOTAL 0.3 mg/dL (0.2-1.0); CREATININE 0.6 mg/dL (0.6-1.3); MAGNESIUM 1.8 mg/dL (1.8-2.4); PHOSPHOROUS 3.5 mg/dL (2.5-4.9); POTASSIUM 4.6 mmol/L (3.5-5.1); TOTAL PROTEIN, SERUM 6.6 g/dL (6.4-8.2)
[2020-06-20 07:37] VITALS: BP 106/68
[2020-06-20] MEDS: TOBRAMYCIN SULFATE 80 MG/2 ML VIAL NEB SCH ×3 (08:00→19:00)
[2020-06-20] MEDS: ASPIRIN 81 MG TAB.CHEW GT SCH (08:21)
[2020-06-20] MEDS: AMIODARONE HCL 200 MG TABLET GT SCH (08:22)
[2020-06-20] MEDS: SULFAMETH/TRIMETH 800/160 MG TABLET GT SCH ×2 (08:22→20:58)
[2020-06-20] MEDS: levETIRAcetam 500 MG/5 ML LIQUID UDC GT SCH ×2 (08:23→20:58)
[2020-06-20] MEDS: PROTEIN SUPPLEMENT (PROSTAT) 30 ML LIQUID GT SCH ×2 (08:24→20:59)
[2020-06-20] MEDS: METOPROLOL TARTRATE 25 MG TABLET GT SCH ×2 (08:24→20:58)
[2020-06-20] MEDS: DIAZEPAM 5 MG TABLET GT SCH ×2 (08:24→20:59)
[2020-06-20] MEDS: ASCORBIC ACID 500 MG TABLET GT SCH ×2 (08:25→21:00)
[2020-06-20] MEDS: COD LIVER OIL/ZINC OXIDE OINT 113 GM TUBE TP SCH ×4 (08:26→21:00)
[2020-06-20] MEDS: NEOMY/BACITRA/POLYMYXIN B OINT UD PACKET TP SCH ×2 (08:27→21:00)
[2020-06-20] MEDS: NORMAL SALINE FLUSH 10 ML DISP.SYRIN IV SCH ×2 (09:00→21:00)
[2020-06-20] MEDS ORDERED: MULTIVITAMINS,THERAPEUTIC TABLET GT SCH (09:00)
[2020-06-20] MEDS: HYDROGEN PEROXIDE 3% 118 ML BOTTLE TP SCH ×2 (09:41→21:08)
--- NOTE | 2020-06-20 10:12 | NUR ---
NEW ORDER CARRIED OUT FOR RNA PROGRAM FROM DR. CURRY
--- NOTE | 2020-06-20 10:55 | NUR ---
SEEN AND EXAMINED BY WOUND CARE NURSE AND WITH NEW ORDERS CARRIED OUT.
[2020-06-20] MEDS: PHENOBARBITAL 30 MG/7.5 ML LIQUID UDC GT SCH ×2 (10:59→21:00)
--- NOTE | 2020-06-20 11:55 | NUR ---
WOUND CARE CONSULT: PT PRESENTS WITH RT EAR INTACT DEEP TISSUE INJURY MEASURING 0.5CM X 0.5CM X UTD, RED IN COLOR, NO DRAINAGE. PT ALSO NOTED TO HAVE BLANCHABLE REDNESS TO LEFT LOWER BUTTOCK WITH SOME INCONTINENCE ASSOCIATED SKIN DAMAGE, ALL ABOVE NOTED TO BE PRESENT ON ADMISSION. RECOMMENDATIONS MADE FOR SKIN PROTECTION AND WOUND CARE. DISCUSSED WITH NURSING STAFF. MD IN AGREEMENT WITH PLAN OF CARE.
--- NOTE | 2020-06-20 12:00 | NUR ---
SEEN BY FLASH Mclaughlin AND WITH NNO.
--- NOTE | 2020-06-20 12:31 | NUR ---
NEW ORDER CARRIED FROM DR. CURRY RECOMMEMDED BY PT.
--- NOTE | 2020-06-20 15:51 | NUR ---
Sales Contractor Assessment Sales Contractor assessment was completed today, gathering information from previous admission chart. Patient's boyfriend has not maintained contact. Patient's father is very minimally involved in patient's care. During previous admission, patient's father declined signing any admission paperwork, and currently remains the same. No signatures were obtained on patient's admission paperwork. Patient's father is available by phone, but has expressed wanting limited phone calls from staff. Patient's code status remains a Full Code.
--- NOTE | 2020-06-20 20:15 | NUR ---
NEBCIN TX NOT GIVEN DUE TO PUI PROTOCOL.
[2020-06-20 20:23] VITALS: BP 135/88
[2020-06-20] MEDS: MAGNESIUM OXIDE 400 MG TABLET GT SCH (20:58)
[2020-06-20] MEDS: Z GUARD REMEDY PASTE 57 GM TUBE TOP SCH (21:00)
[2020-06-21] MEDS: VANCOMYCIN 125 MG GT SCH ×4 (00:58→18:00)
--- NOTE | 2020-06-21 01:38 | NUR ---
Patient is afebrile, trach is intact and patent, no respiratory distress noted. On Vancomycin via GT and Flagyl via gt for C-diff in the stool, no adverse reactions noted. On Bactrim DS for UTI and Merrem for ESBL in the urine, no adverse reactions noted. On contact isolation precaution for C- diff and ESBL in the urine. NAVEEN PICC line is intact and flushing well. Garland catheter is draining well to yellow urine and rectal tube is draining well. Turned and repositioned patient, kept patient clean and comfortable.
[2020-06-21] MEDS: MEROPENEM 500 MG in IV NORMAL SALINE 50 ML IV SCH ×2 (03:28→15:00)
[2020-06-21] MEDS: POLYVINYL ALCOHOL OPHT DROPS 15 ML BOTTLE EACHEYE SCH ×2 (05:24→18:00)
[2020-06-21] MEDS: OMEPRAZOLE 40 MG CAPSULE GT SCH (05:25)
[2020-06-21] MEDS: VITAL AF 1.2 1,000 ML LIQUID GT PRN ×2 (05:25→23:15)
[2020-06-21] MEDS: METRONIDAZOLE 500 MG TABLET GT SCH ×3 (05:25→21:48)
[2020-06-21] MEDS: HYDROGEN PEROXIDE 3% 118 ML BOTTLE TP SCH ×2 (07:20→21:00)
[2020-06-21] MEDS: TOBRAMYCIN SULFATE 80 MG/2 ML VIAL NEB SCH ×2 (07:20→19:30)
--- NOTE | 2020-06-21 07:25 | NUR ---
END OF SHIFT REPORT Report given to night nurse Wendy. Endorsed pt. in stable condition. Tx on sacrum not needed d/t no wound present. No change in pt. status.
[2020-06-21 07:40] VITALS: BP 118/76
--- NOTE | 2020-06-21 08:30 | NUR ---
SHIFT REPORT Recv'd report from night nurse. Pt. awake and on contact isolation for C. diff. Receiving ABTs Vanco and Flagyl for C. diff, Bactrim DS for UTI, and Merrem for ESBL in urine. Right UA PICC intact and patent with no s/s infection or infiltration. Flushed with 10ml NS. Garland Cath and Bowel bag intact. Garland draining clear, yellow, odorless urine. G-Tube intact and patent with no bleeding, swelling, drainage noted. Feeding running at 55mL/hr. Trach and Vent intact. Bed low, siderails x3 up, bed alarm on, and call rodriguez within reach.
[2020-06-21] MEDS: Z GUARD REMEDY PASTE 57 GM TUBE TOP SCH ×2 (09:00→21:47)
[2020-06-21] MEDS: NEOMY/BACITRA/POLYMYXIN B OINT UD PACKET TP SCH ×2 (09:00→21:47)
[2020-06-21] MEDS: SULFAMETH/TRIMETH 800/160 MG TABLET GT SCH ×2 (09:00→21:44)
[2020-06-21] MEDS: DIAZEPAM 5 MG TABLET GT SCH ×2 (09:00→21:46)
[2020-06-21] MEDS: ASPIRIN 81 MG TAB.CHEW GT SCH (09:00)
[2020-06-21] MEDS: METOPROLOL TARTRATE 25 MG TABLET GT SCH ×2 (09:00→21:45)
[2020-06-21] MEDS: COD LIVER OIL/ZINC OXIDE OINT 113 GM TUBE TP SCH ×4 (09:00→21:47)
[2020-06-21] MEDS: AMIODARONE HCL 200 MG TABLET GT SCH (09:00)
[2020-06-21] MEDS: PROTEIN SUPPLEMENT (PROSTAT) 30 ML LIQUID GT SCH ×2 (09:00→21:46)
[2020-06-21] MEDS: ASCORBIC ACID 500 MG TABLET GT SCH ×2 (09:00→21:47)
[2020-06-21] MEDS: levETIRAcetam 500 MG/5 ML LIQUID UDC GT SCH ×2 (09:00→21:45)
[2020-06-21] MEDS: NORMAL SALINE FLUSH 10 ML DISP.SYRIN IV SCH ×2 (09:00→21:54)
[2020-06-21] MEDS: PHENOBARBITAL 30 MG/7.5 ML LIQUID UDC GT SCH ×2 (10:10→21:48)
[2020-06-21] MEDS ORDERED: DIAZEPAM 5 MG TABLET GT SCH (12:37)
--- NOTE | 2020-06-21 16:48 | NUR ---
INTERDISCIPLINARY PLAN OF CARE CONFERENCE was held today. Patient's family does not participate in the meeting. Dr. Lora and the Interdisciplinary Team reviewed the current plan of care in detail. Patient was admitted to subacute on 06/18/20 after requiring acute hospitalization. RN reported on patient's medical condition, current treatments, and that patient is on isolation precautions. See RN IDT conference notes. See also all other disciplines IDT notes and physician's progress notes for additional details.
[2020-06-21 20:00] VITALS: BP 128/62
[2020-06-21] MEDS: MULTIVITAMINS,THERAPEUTIC TABLET GT SCH (21:46)
[2020-06-21] MEDS: MAGNESIUM OXIDE 400 MG TABLET GT SCH (21:46)
[2020-06-22] MEDS: MEROPENEM 500 MG in IV NORMAL SALINE 50 ML IV SCH ×2 (02:55→15:00)
[2020-06-22] MEDS: POLYVINYL ALCOHOL OPHT DROPS 15 ML BOTTLE EACHEYE SCH ×2 (05:34→17:21)
[2020-06-22] MEDS: METRONIDAZOLE 500 MG TABLET GT SCH ×3 (05:34→22:20)
[2020-06-22] MEDS: OMEPRAZOLE 40 MG CAPSULE GT SCH (05:35)
[2020-06-22] MEDS: VANCOMYCIN 125 MG GT SCH ×4 (05:35→17:21)
--- NOTE | 2020-06-22 05:57 | NUR ---
continue on merrem iv for esbl in urine and blood, no adverse reaction noted,afebrile, no respiratory distress noted.
[2020-06-22] MEDS: TOBRAMYCIN SULFATE 80 MG/2 ML VIAL NEB SCH ×2 (06:55→19:30)
[2020-06-22 07:44] VITALS: BP 117/73
[2020-06-22] MEDS: NORMAL SALINE FLUSH 10 ML DISP.SYRIN IV SCH ×2 (09:00→21:00)
--- NOTE | 2020-06-22 09:00 | NUR ---
Covid 19 test results negative.Pt's Father request not to call him for results,only for emergency cases.
[2020-06-22] MEDS: ASPIRIN 81 MG TAB.CHEW GT SCH (09:32)
[2020-06-22] MEDS: SULFAMETH/TRIMETH 800/160 MG TABLET GT SCH ×2 (09:32→21:00)
[2020-06-22] MEDS: DIAZEPAM 5 MG TABLET GT SCH ×2 (09:33→21:00)
[2020-06-22] MEDS: Z GUARD REMEDY PASTE 57 GM TUBE TOP SCH ×2 (09:33→21:00)
[2020-06-22] MEDS: METOPROLOL TARTRATE 25 MG TABLET GT SCH ×2 (09:33→21:00)
[2020-06-22] MEDS: AMIODARONE HCL 200 MG TABLET GT SCH (09:33)
[2020-06-22] MEDS: levETIRAcetam 500 MG/5 ML LIQUID UDC GT SCH ×2 (09:33→21:00)
[2020-06-22] MEDS: PROTEIN SUPPLEMENT (PROSTAT) 30 ML LIQUID GT SCH ×2 (09:33→21:00)
[2020-06-22] MEDS: NEOMY/BACITRA/POLYMYXIN B OINT UD PACKET TP SCH ×2 (09:33→21:00)
[2020-06-22] MEDS: ASCORBIC ACID 500 MG TABLET GT SCH ×2 (09:33→21:00)
[2020-06-22] MEDS: PHENOBARBITAL 30 MG/7.5 ML LIQUID UDC GT SCH ×2 (09:33→22:23)
[2020-06-22] MEDS: COD LIVER OIL/ZINC OXIDE OINT 113 GM TUBE TP SCH ×4 (09:33→21:00)
[2020-06-22] MEDS: HYDROGEN PEROXIDE 3% 118 ML BOTTLE TP SCH ×2 (09:40→21:46)
--- NOTE | 2020-06-22 18:00 | NUR ---
Continue on Ivatb ,no adverse reaction noted,picc line on the R upper arm intact,each lumen flushed as ordered.
--- NOTE | 2020-06-22 18:05 | NUR ---
Continue on isolation precautions,for Covid 19 protocol,c diff,and Esbl in urine and blood.
[2020-06-22] MEDS: MAGNESIUM OXIDE 400 MG TABLET GT SCH (21:00)
[2020-06-22] MEDS: MULTIVITAMINS,THERAPEUTIC TABLET GT SCH (21:00)
[2020-06-22] MEDS: VITAL AF 1.2 1,000 ML LIQUID GT PRN (22:30)
[2020-06-22 22:50] VITALS: BP 117/76
[2020-06-23] MEDS: VANCOMYCIN 125 MG GT SCH ×4 (00:52→17:05)
[2020-06-23] MEDS: MEROPENEM 500 MG in IV NORMAL SALINE 50 ML IV SCH ×2 (03:01→15:03)
[2020-06-23] MEDS: METRONIDAZOLE 500 MG TABLET GT SCH ×2 (05:52→14:00)
[2020-06-23] MEDS: OMEPRAZOLE 40 MG CAPSULE GT SCH (05:52)
[2020-06-23] MEDS: POLYVINYL ALCOHOL OPHT DROPS 15 ML BOTTLE EACHEYE SCH ×2 (05:52→17:05)
[2020-06-23] MEDS: TOBRAMYCIN SULFATE 80 MG/2 ML VIAL NEB SCH ×2 (07:30→19:27)
[2020-06-23 08:00] VITALS: BP 124/80
[2020-06-23] MEDS: NORMAL SALINE FLUSH 10 ML DISP.SYRIN IV SCH ×2 (09:00→21:05)
[2020-06-23] MEDS: ASPIRIN 81 MG TAB.CHEW GT SCH (09:30)
[2020-06-23] MEDS: AMIODARONE HCL 200 MG TABLET GT SCH (09:30)
[2020-06-23] MEDS: SULFAMETH/TRIMETH 800/160 MG TABLET GT SCH (09:30)
[2020-06-23] MEDS: levETIRAcetam 500 MG/5 ML LIQUID UDC GT SCH ×2 (09:31→21:51)
[2020-06-23] MEDS: ASCORBIC ACID 500 MG TABLET GT SCH ×2 (09:31→21:52)
[2020-06-23] MEDS: NEOMY/BACITRA/POLYMYXIN B OINT UD PACKET TP SCH ×2 (09:31→21:53)
[2020-06-23] MEDS: PROTEIN SUPPLEMENT (PROSTAT) 30 ML LIQUID GT SCH ×2 (09:31→21:52)
[2020-06-23] MEDS: METOPROLOL TARTRATE 25 MG TABLET GT SCH ×2 (09:31→21:52)
[2020-06-23] MEDS: COD LIVER OIL/ZINC OXIDE OINT 113 GM TUBE TP SCH ×4 (09:31→21:53)
[2020-06-23] MEDS: Z GUARD REMEDY PASTE 57 GM TUBE TOP SCH ×2 (09:31→21:53)
[2020-06-23] MEDS: DIAZEPAM 5 MG TABLET GT SCH ×2 (09:31→21:52)
[2020-06-23] MEDS: PHENOBARBITAL 30 MG/7.5 ML LIQUID UDC GT SCH ×2 (09:31→21:53)
[2020-06-23] MEDS: HYDROGEN PEROXIDE 3% 118 ML BOTTLE TP SCH ×2 (09:57→21:36)
--- NOTE | 2020-06-23 16:25 | NUR ---
PT. SEEN BY DR. TOLBERT AND WITH NEW ORDERS CARRIED OUT.
--- NOTE | 2020-06-23 21:00 | NUR ---
right upper arm picc line patent, flushed per protocol.
[2020-06-23] MEDS: MAGNESIUM OXIDE 400 MG TABLET GT SCH (21:52)
[2020-06-23] MEDS: MULTIVITAMINS,THERAPEUTIC TABLET GT SCH (21:52)
[2020-06-23 22:39] VITALS: BP 102/66
[2020-06-24] MEDS: POLYVINYL ALCOHOL OPHT DROPS 15 ML BOTTLE EACHEYE SCH ×2 (05:56→18:09)
[2020-06-24] MEDS: VANCOMYCIN 125 MG GT SCH ×5 (05:56→23:21)
[2020-06-24] MEDS: OMEPRAZOLE 40 MG CAPSULE GT SCH (05:56)
[2020-06-24 07:36] VITALS: BP 126/80
[2020-06-24] MEDS: AMIODARONE HCL 200 MG TABLET GT SCH (08:24)
[2020-06-24] MEDS: ASPIRIN 81 MG TAB.CHEW GT SCH (08:24)
[2020-06-24] MEDS: levETIRAcetam 500 MG/5 ML LIQUID UDC GT SCH ×2 (08:24→21:56)
[2020-06-24] MEDS: METOPROLOL TARTRATE 25 MG TABLET GT SCH ×2 (08:25→21:57)
[2020-06-24] MEDS: DIAZEPAM 5 MG TABLET GT SCH ×2 (08:25→21:58)
[2020-06-24] MEDS: NEOMY/BACITRA/POLYMYXIN B OINT UD PACKET TP SCH ×2 (08:26→21:59)
[2020-06-24] MEDS: ASCORBIC ACID 500 MG TABLET GT SCH ×2 (08:26→21:57)
[2020-06-24] MEDS: COD LIVER OIL/ZINC OXIDE OINT 113 GM TUBE TP SCH ×4 (08:26→21:58)
[2020-06-24] MEDS: NORMAL SALINE FLUSH 10 ML DISP.SYRIN IV SCH ×2 (08:26→21:58)
[2020-06-24] MEDS: Z GUARD REMEDY PASTE 57 GM TUBE TOP SCH ×2 (08:26→21:58)
[2020-06-24] MEDS: HYDROGEN PEROXIDE 3% 118 ML BOTTLE TP SCH ×2 (08:41→21:19)
[2020-06-24] MEDS: PROTEIN SUPPLEMENT (PROSTAT) 30 ML LIQUID GT SCH ×2 (09:00→21:57)
[2020-06-24] MEDS: PHENOBARBITAL 30 MG/7.5 ML LIQUID UDC GT SCH ×2 (10:15→21:59)
[2020-06-24] MEDS: VITAL AF 1.2 1,000 ML LIQUID GT PRN (11:54)
[2020-06-24] MEDS: MAGNESIUM OXIDE 400 MG TABLET GT SCH (21:57)
[2020-06-24] MEDS: MULTIVITAMINS,THERAPEUTIC TABLET GT SCH (21:58)
[2020-06-24 22:21] VITALS: BP 144/91
--- NOTE | 2020-06-24 23:30 | NUR ---
Patient remains on Vancomycin via gt for c-diff in the stool, stool is mushy. Good jeny care rendered, afebrile, no signs of any pain or discomfort, NAVEEN PICC is intact and no complication noted on the site, voss catheter is draining well to yellow urine, good jeny care rendered, kept clean and comfortable.
[2020-06-25] MEDS: VITAL AF 1.2 1,000 ML LIQUID GT PRN (04:54)
[2020-06-25] MEDS: OMEPRAZOLE 40 MG CAPSULE GT SCH (05:13)
[2020-06-25] MEDS: POLYVINYL ALCOHOL OPHT DROPS 15 ML BOTTLE EACHEYE SCH ×2 (05:13→18:32)
[2020-06-25] MEDS: VANCOMYCIN 125 MG GT SCH ×4 (05:13→23:26)
[2020-06-25 07:40] VITALS: BP 110/72
[2020-06-25] MEDS: HYDROGEN PEROXIDE 3% 118 ML BOTTLE TP SCH ×2 (07:40→21:39)
[2020-06-25] MEDS: NEOMY/BACITRA/POLYMYXIN B OINT UD PACKET TP SCH ×2 (09:51→21:27)
[2020-06-25] MEDS: PHENOBARBITAL 30 MG/7.5 ML LIQUID UDC GT SCH ×2 (09:51→21:36)
[2020-06-25] MEDS: NORMAL SALINE FLUSH 10 ML DISP.SYRIN IV SCH ×2 (09:51→21:36)
[2020-06-25] MEDS: DIAZEPAM 5 MG TABLET GT SCH ×2 (09:51→21:36)
[2020-06-25] MEDS: COD LIVER OIL/ZINC OXIDE OINT 113 GM TUBE TP SCH ×4 (09:51→21:27)
[2020-06-25] MEDS: Z GUARD REMEDY PASTE 57 GM TUBE TOP SCH ×2 (09:51→21:27)
[2020-06-25] MEDS: ASCORBIC ACID 500 MG TABLET GT SCH ×2 (09:51→21:26)
[2020-06-25] MEDS: METOPROLOL TARTRATE 25 MG TABLET GT SCH ×2 (09:52→21:25)
[2020-06-25] MEDS: PROTEIN SUPPLEMENT (PROSTAT) 30 ML LIQUID GT SCH ×2 (09:52→21:26)
[2020-06-25] MEDS: levETIRAcetam 500 MG/5 ML LIQUID UDC GT SCH ×2 (09:52→21:25)
[2020-06-25] MEDS: AMIODARONE HCL 200 MG TABLET GT SCH (09:52)
[2020-06-25] MEDS: ASPIRIN 81 MG TAB.CHEW GT SCH (09:53)
[2020-06-25] MEDS: MULTIVITAMINS,THERAPEUTIC TABLET GT SCH (21:26)
[2020-06-25] MEDS: MAGNESIUM OXIDE 400 MG TABLET GT SCH (21:26)
[2020-06-25 22:59] VITALS: BP 112/73
--- NOTE | 2020-06-25 23:02 | NUR ---
Still on Vancomycin via gt for c- diff in the stool, still with watery stool but with solid pieces, good jeny- care rendered, on contact isolation precaution for c- diff. Afebrile, no signs of any discomfort, kept clean and comfortable.
[2020-06-26] MEDS: POLYVINYL ALCOHOL OPHT DROPS 15 ML BOTTLE EACHEYE SCH ×2 (06:11→17:53)
[2020-06-26] MEDS: VITAL AF 1.2 1,000 ML LIQUID GT PRN (06:12)
[2020-06-26] MEDS: VANCOMYCIN 125 MG GT SCH (06:12)
[2020-06-26] MEDS: OMEPRAZOLE 40 MG CAPSULE GT SCH (06:12)
[2020-06-26] MEDS: HYDROGEN PEROXIDE 3% 118 ML BOTTLE TP SCH ×2 (07:40→20:53)
[2020-06-26 07:42] VITALS: BP 100/69
[2020-06-26] MEDS: ASPIRIN 81 MG TAB.CHEW GT SCH (08:56)
[2020-06-26] MEDS: AMIODARONE HCL 200 MG TABLET GT SCH (08:58)
[2020-06-26] MEDS: levETIRAcetam 500 MG/5 ML LIQUID UDC GT SCH ×2 (08:59→20:52)
[2020-06-26] MEDS: METOPROLOL TARTRATE 25 MG TABLET GT SCH ×2 (09:00→20:52)
[2020-06-26] MEDS: PROTEIN SUPPLEMENT (PROSTAT) 30 ML LIQUID GT SCH ×2 (09:00→20:52)
[2020-06-26] MEDS: DIAZEPAM 5 MG TABLET GT SCH ×2 (09:01→20:52)
[2020-06-26] MEDS: COD LIVER OIL/ZINC OXIDE OINT 113 GM TUBE TP SCH ×4 (09:01→20:53)
[2020-06-26] MEDS: ASCORBIC ACID 500 MG TABLET GT SCH ×2 (09:01→20:52)
[2020-06-26] MEDS: NORMAL SALINE FLUSH 10 ML DISP.SYRIN IV SCH ×2 (09:01→21:00)
[2020-06-26] MEDS: Z GUARD REMEDY PASTE 57 GM TUBE TOP SCH ×2 (09:01→20:53)
[2020-06-26] MEDS: NEOMY/BACITRA/POLYMYXIN B OINT UD PACKET TP SCH ×2 (09:02→20:53)
[2020-06-26] MEDS: PHENOBARBITAL 30 MG/7.5 ML LIQUID UDC GT SCH ×2 (09:02→21:00)
[2020-06-26 19:54] VITALS: BP 107/69
[2020-06-26] MEDS: MAGNESIUM OXIDE 400 MG TABLET GT SCH (20:52)
[2020-06-26] MEDS: MULTIVITAMINS,THERAPEUTIC TABLET GT SCH (20:52)
[2020-06-27] MEDS: POLYVINYL ALCOHOL OPHT DROPS 15 ML BOTTLE EACHEYE SCH ×2 (05:34→17:44)
[2020-06-27] MEDS: OMEPRAZOLE 40 MG CAPSULE GT SCH (05:34)
[2020-06-27 06:48] LABS: BILIRUBIN,TOTAL 0.3 mg/dL (0.2-1.0); CREATININE 0.5 mg/dL (0.6-1.3); MAGNESIUM 1.9 mg/dL (1.8-2.4); PHOSPHOROUS 3.9 mg/dL (2.5-4.9); POTASSIUM 4.2 mmol/L (3.5-5.1); TOTAL PROTEIN, SERUM 7.2 g/dL (6.4-8.2)
[2020-06-27 07:08] LABS: BASOPHILS # (AUTO) 0.1 K/uL (0.0-8.0); BASOPHILS % (AUTO) 2.1 % (0.0-2.0); EOSINOPHILS # (AUTO) 0.1 K/uL (0.0-0.7); EOSINOPHILS % (AUTO) 2.6 % (0.0-7.0); HEMATOCRIT 22.7 % (31.2-41.9); LYMPHOCYTES # (AUTO) 1.2 K/uL (20.0-40.0); LYMPHOCYTES % (AUTO) 40.2 % (20.5-51.5); MEAN CORPUSCULAR HEMOGLOBIN 30.5 uug (24.7-32.8); MEAN CORPUSCULAR HGB CONC 35 g/dL (32.3-35.6); MEAN CORPUSCULAR VOLUME 86.3 fL (75.5-95.3); MONOCYTES # (AUTO) 0.4 K/uL (2.0-10.0); MONOCYTES % (AUTO) 11.8 % (0.0-11.0); NEUTROPHILS # (AUTO) 1.3 K/uL (1.8-8.9); NEUTROPHILS % (AUTO) 43.3 % (38.5-71.5); PLATELET COUNT (AUTO) 270 K/uL (179-408); RED BLOOD CELL COUNT(AUTO) 2.63 MIL/uL (3.63-4.92); WHITE BLOOD COUNT (AUTO) 3.1 K/uL (3.8-11.8)
--- NOTE | 2020-06-27 07:12 | NUR ---
Will test patient for COVID-19 today.
[2020-06-27] MEDS: HYDROGEN PEROXIDE 3% 118 ML BOTTLE TP SCH ×2 (07:17→21:54)
[2020-06-27 07:30] VITALS: BP 92/58
[2020-06-27 07:32] VITALS: BP 92/58
[2020-06-27] MEDS: NORMAL SALINE FLUSH 10 ML DISP.SYRIN IV SCH ×2 (09:00→21:45)
[2020-06-27] MEDS: METOPROLOL TARTRATE 25 MG TABLET GT SCH ×2 (09:00→21:31)
[2020-06-27] MEDS: levETIRAcetam 500 MG/5 ML LIQUID UDC GT SCH ×2 (09:21→21:29)
[2020-06-27] MEDS: ASPIRIN 81 MG TAB.CHEW GT SCH (09:21)
[2020-06-27] MEDS: AMIODARONE HCL 200 MG TABLET GT SCH (09:21)
[2020-06-27] MEDS: Z GUARD REMEDY PASTE 57 GM TUBE TOP SCH ×2 (09:22→21:33)
[2020-06-27] MEDS: PROTEIN SUPPLEMENT (PROSTAT) 30 ML LIQUID GT SCH ×2 (09:22→21:31)
[2020-06-27] MEDS: NEOMY/BACITRA/POLYMYXIN B OINT UD PACKET TP SCH ×2 (09:22→21:33)
[2020-06-27] MEDS: COD LIVER OIL/ZINC OXIDE OINT 113 GM TUBE TP SCH ×4 (09:22→21:33)
[2020-06-27] MEDS: DIAZEPAM 5 MG TABLET GT SCH ×2 (09:22→21:32)
[2020-06-27] MEDS: PHENOBARBITAL 30 MG/7.5 ML LIQUID UDC GT SCH ×2 (09:22→21:33)
[2020-06-27] MEDS: ASCORBIC ACID 500 MG TABLET GT SCH ×2 (09:22→21:32)
--- NOTE | 2020-06-27 12:00 | NUR ---
SEEN BY FLASH Lora AND WITH NNO.
--- NOTE | 2020-06-27 17:35 | NUR ---
NO COVID 19 TEST REQUIRED TODAY PER [facility] AND PT'S FATHER AWARE.
[2020-06-27 19:47] VITALS: BP 102/63
[2020-06-27] MEDS: MAGNESIUM OXIDE 400 MG TABLET GT SCH (21:31)
[2020-06-27] MEDS: MULTIVITAMINS,THERAPEUTIC TABLET GT SCH (21:31)
[2020-06-27] MEDS: VITAL AF 1.2 1,000 ML LIQUID GT PRN (23:27)
[2020-06-28] MEDS: POLYVINYL ALCOHOL OPHT DROPS 15 ML BOTTLE EACHEYE SCH ×2 (05:28→17:47)
[2020-06-28] MEDS: OMEPRAZOLE 40 MG CAPSULE GT SCH (05:28)
[2020-06-28 07:30] VITALS: BP 100/68
[2020-06-28 08:00] VITALS: BP 100/68
[2020-06-28] MEDS: ASPIRIN 81 MG TAB.CHEW GT SCH (08:28)
[2020-06-28] MEDS: levETIRAcetam 500 MG/5 ML LIQUID UDC GT SCH ×2 (08:29→21:36)
[2020-06-28] MEDS: AMIODARONE HCL 200 MG TABLET GT SCH (08:29)
[2020-06-28] MEDS: METOPROLOL TARTRATE 25 MG TABLET GT SCH ×2 (08:30→21:36)
[2020-06-28] MEDS: PROTEIN SUPPLEMENT (PROSTAT) 30 ML LIQUID GT SCH ×2 (08:30→21:36)
[2020-06-28] MEDS: ASCORBIC ACID 500 MG TABLET GT SCH ×2 (08:31→21:36)
[2020-06-28] MEDS: DIAZEPAM 5 MG TABLET GT SCH ×2 (08:31→21:36)
[2020-06-28] MEDS: NEOMY/BACITRA/POLYMYXIN B OINT UD PACKET TP SCH ×2 (08:31→21:37)
[2020-06-28] MEDS: Z GUARD REMEDY PASTE 57 GM TUBE TOP SCH ×2 (08:31→21:36)
[2020-06-28] MEDS: COD LIVER OIL/ZINC OXIDE OINT 113 GM TUBE TP SCH ×4 (08:31→21:37)
[2020-06-28] MEDS: NORMAL SALINE FLUSH 10 ML DISP.SYRIN IV SCH ×2 (09:00→21:00)
[2020-06-28] MEDS: HYDROGEN PEROXIDE 3% 118 ML BOTTLE TP SCH ×2 (09:23→21:07)
[2020-06-28] MEDS: PHENOBARBITAL 30 MG/7.5 ML LIQUID UDC GT SCH ×2 (10:00→21:37)
--- NOTE | 2020-06-28 14:04 | NUR ---
INTERDISCIPLINARY PLAN OF CARE CONFERENCE was held today. Patient's father is minimally involved in patient's care and does not participate in the meeting. Dr. Lora and the Interdisciplinary team reviewed the current plan of care in detail. RN reported on the patient's medical condition, recent labs, and ongoing skins care. RN also reported that patient continues to remain on isolation precautions for C-diff and ESVL. See RN IDT conference notes. See also all other disciplines IDT notes and physician's progress notes for additional details.
[2020-06-28] MEDS: VITAL AF 1.2 1,000 ML LIQUID GT PRN (18:30)
--- NOTE | 2020-06-28 19:54 | NUR ---
Pt continue on isolation precautions,observe closely,picc line on the R upper arm,intact,flushed as ordered.
[2020-06-28 19:59] VITALS: BP 104/64
[2020-06-28] MEDS: MAGNESIUM OXIDE 400 MG TABLET GT SCH (21:36)
[2020-06-28] MEDS: MULTIVITAMINS,THERAPEUTIC TABLET GT SCH (21:36)
[2020-06-29] MEDS: OMEPRAZOLE 40 MG CAPSULE GT SCH (05:19)
[2020-06-29] MEDS: POLYVINYL ALCOHOL OPHT DROPS 15 ML BOTTLE EACHEYE SCH ×2 (05:19→18:04)
[2020-06-29 07:18] VITALS: BP 103/65
[2020-06-29] MEDS: HYDROGEN PEROXIDE 3% 118 ML BOTTLE TP SCH ×2 (08:03→21:18)
[2020-06-29] MEDS: levETIRAcetam 500 MG/5 ML LIQUID UDC GT SCH ×2 (08:13→20:42)
[2020-06-29] MEDS: METOPROLOL TARTRATE 25 MG TABLET GT SCH ×2 (08:13→20:42)
[2020-06-29] MEDS: PROTEIN SUPPLEMENT (PROSTAT) 30 ML LIQUID GT SCH ×2 (08:14→20:43)
[2020-06-29] MEDS: ASPIRIN 81 MG TAB.CHEW GT SCH (08:14)
[2020-06-29] MEDS: DIAZEPAM 5 MG TABLET GT SCH ×2 (08:14→20:43)
[2020-06-29] MEDS: AMIODARONE HCL 200 MG TABLET GT SCH (08:14)
[2020-06-29] MEDS: ASCORBIC ACID 500 MG TABLET GT SCH ×2 (08:14→20:43)
[2020-06-29] MEDS: Z GUARD REMEDY PASTE 57 GM TUBE TOP SCH ×2 (08:15→20:43)
[2020-06-29] MEDS: NORMAL SALINE FLUSH 10 ML DISP.SYRIN IV SCH (08:15)
[2020-06-29] MEDS: NEOMY/BACITRA/POLYMYXIN B OINT UD PACKET TP SCH ×2 (08:15→20:43)
[2020-06-29] MEDS: COD LIVER OIL/ZINC OXIDE OINT 113 GM TUBE TP SCH ×4 (08:15→20:43)
[2020-06-29] MEDS: PHENOBARBITAL 30 MG/7.5 ML LIQUID UDC GT SCH ×2 (09:12→21:12)
[2020-06-29] MEDS: VITAL AF 1.2 1,000 ML LIQUID GT PRN (11:19)
--- NOTE | 2020-06-29 16:51 | NUR ---
Picc line on the R upper arm discontinue as ordered By Dr Tripathi,procedure tolerated well,tip of the picc line intact witness by another Rn Adilene pressure dressing applied ,no bleeding noted.
--- NOTE | 2020-06-29 18:44 | NUR ---
Seen by Kristine and Dr Lora with new orders noted,pt continue on isolation precaution,for esbl in urine and blood and c difficile,,observe closely.
[2020-06-29 20:02] VITALS: BP 106/67
[2020-06-29] MEDS: MAGNESIUM OXIDE 400 MG TABLET GT SCH (20:43)
[2020-06-29] MEDS: MULTIVITAMINS,THERAPEUTIC TABLET GT SCH (20:43)
[2020-06-30] MEDS: OMEPRAZOLE 40 MG CAPSULE GT SCH (05:18)
[2020-06-30] MEDS: POLYVINYL ALCOHOL OPHT DROPS 15 ML BOTTLE EACHEYE SCH ×2 (05:18→17:22)
[2020-06-30 07:48] VITALS: BP 113/64
[2020-06-30] MEDS: AMIODARONE HCL 200 MG TABLET GT SCH (08:36)
[2020-06-30] MEDS: METOPROLOL TARTRATE 25 MG TABLET GT SCH ×2 (08:36→21:00)
[2020-06-30] MEDS: ASPIRIN 81 MG TAB.CHEW GT SCH (08:36)
[2020-06-30] MEDS: Z GUARD REMEDY PASTE 57 GM TUBE TOP SCH ×2 (08:37→21:00)
[2020-06-30] MEDS: COD LIVER OIL/ZINC OXIDE OINT 113 GM TUBE TP SCH ×4 (08:37→21:00)
[2020-06-30] MEDS: ASCORBIC ACID 500 MG TABLET GT SCH ×2 (08:37→21:00)
[2020-06-30] MEDS: levETIRAcetam 500 MG/5 ML LIQUID UDC GT SCH ×2 (08:37→21:00)
[2020-06-30] MEDS: DIAZEPAM 5 MG TABLET GT SCH ×2 (08:37→21:00)
[2020-06-30] MEDS: NEOMY/BACITRA/POLYMYXIN B OINT UD PACKET TP SCH ×2 (08:37→21:00)
[2020-06-30] MEDS: PROTEIN SUPPLEMENT (PROSTAT) 30 ML LIQUID GT SCH ×2 (08:37→21:00)
[2020-06-30] MEDS: PHENOBARBITAL 30 MG/7.5 ML LIQUID UDC GT SCH ×2 (09:03→22:05)
[2020-06-30] MEDS: HYDROGEN PEROXIDE 3% 118 ML BOTTLE TP SCH ×2 (09:21→21:47)
--- NOTE | 2020-06-30 18:56 | NUR ---
SEEN AND EXAMINED BY CHRIS QUINONES, WITH ORDER TO OBTAIN CONSENT FOR EXCISIONAL DEBRIDEMENT OF GASTROCUTANEOUS FISTULA, HYPERGRANULATION TISSUE. NOTED AND CARRIED OUT.
[2020-06-30 19:58] VITALS: BP 105/67
[2020-06-30] MEDS: MULTIVITAMINS,THERAPEUTIC TABLET GT SCH (21:00)
[2020-06-30] MEDS: MAGNESIUM OXIDE 400 MG TABLET GT SCH (21:00)
--- NOTE | 2020-06-30 23:04 | NUR ---
Patient is afebrile, still on contact isolation for c- diff in the stool, patient is still having watery stools with some formed Addendum: 06/30/20 at 2307 by CHARLES GARAY RN still having loose stools with some formed particles, good jeny care rendered, no signs of pain or discomfort, kept clean and comfortable.
[2020-07-01] MEDS: VITAL AF 1.2 1,000 ML LIQUID GT PRN ×2 (01:18→18:13)
[2020-07-01] MEDS: POLYVINYL ALCOHOL OPHT DROPS 15 ML BOTTLE EACHEYE SCH ×2 (05:24→18:10)
[2020-07-01] MEDS: OMEPRAZOLE 40 MG CAPSULE GT SCH (05:24)
[2020-07-01 07:48] VITALS: BP 99/61
[2020-07-01] MEDS: HYDROGEN PEROXIDE 3% 118 ML BOTTLE TP SCH ×2 (08:59→21:40)
[2020-07-01] MEDS: ASPIRIN 81 MG TAB.CHEW GT SCH (09:21)
[2020-07-01] MEDS: AMIODARONE HCL 200 MG TABLET GT SCH (09:22)
[2020-07-01] MEDS: METOPROLOL TARTRATE 25 MG TABLET GT SCH ×2 (09:23→21:46)
[2020-07-01] MEDS: PROTEIN SUPPLEMENT (PROSTAT) 30 ML LIQUID GT SCH ×2 (09:23→21:47)
[2020-07-01] MEDS: levETIRAcetam 500 MG/5 ML LIQUID UDC GT SCH ×2 (09:23→21:46)
[2020-07-01] MEDS: ASCORBIC ACID 500 MG TABLET GT SCH ×2 (09:24→21:47)
[2020-07-01] MEDS: COD LIVER OIL/ZINC OXIDE OINT 113 GM TUBE TP SCH ×4 (09:24→21:47)
[2020-07-01] MEDS: Z GUARD REMEDY PASTE 57 GM TUBE TOP SCH ×2 (09:24→21:47)
[2020-07-01] MEDS: DIAZEPAM 5 MG TABLET GT SCH ×2 (09:24→21:59)
[2020-07-01] MEDS: NEOMY/BACITRA/POLYMYXIN B OINT UD PACKET TP SCH ×2 (09:24→21:47)
[2020-07-01] MEDS: PHENOBARBITAL 30 MG/7.5 ML LIQUID UDC GT SCH ×2 (09:30→21:59)
--- NOTE | 2020-07-01 11:00 | NUR ---
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
[2020-07-01 20:00] VITALS: BP 109/66
[2020-07-01] MEDS: MAGNESIUM OXIDE 400 MG TABLET GT SCH (21:46)
[2020-07-01] MEDS: MULTIVITAMINS,THERAPEUTIC TABLET GT SCH (21:47)
[2020-07-02] MEDS: POLYVINYL ALCOHOL OPHT DROPS 15 ML BOTTLE EACHEYE SCH ×2 (05:24→17:08)
[2020-07-02] MEDS: OMEPRAZOLE 40 MG CAPSULE GT SCH (05:24)
[2020-07-02 07:30] VITALS: BP 106/61
[2020-07-02] MEDS: ASPIRIN 81 MG TAB.CHEW GT SCH (09:01)
[2020-07-02] MEDS: AMIODARONE HCL 200 MG TABLET GT SCH (09:02)
[2020-07-02] MEDS: METOPROLOL TARTRATE 25 MG TABLET GT SCH ×2 (09:03→21:52)
[2020-07-02] MEDS: levETIRAcetam 500 MG/5 ML LIQUID UDC GT SCH ×2 (09:03→21:51)
[2020-07-02] MEDS: COD LIVER OIL/ZINC OXIDE OINT 113 GM TUBE TP SCH ×4 (09:04→21:53)
[2020-07-02] MEDS: ASCORBIC ACID 500 MG TABLET GT SCH ×2 (09:04→21:52)
[2020-07-02] MEDS: PROTEIN SUPPLEMENT (PROSTAT) 30 ML LIQUID GT SCH ×2 (09:04→21:52)
[2020-07-02] MEDS: DIAZEPAM 5 MG TABLET GT SCH ×2 (09:04→21:52)
[2020-07-02] MEDS: NEOMY/BACITRA/POLYMYXIN B OINT UD PACKET TP SCH ×2 (09:04→21:53)
[2020-07-02] MEDS: Z GUARD REMEDY PASTE 57 GM TUBE TOP SCH ×2 (09:04→21:53)
[2020-07-02] MEDS: HYDROGEN PEROXIDE 3% 118 ML BOTTLE TP SCH ×2 (09:05→21:38)
[2020-07-02] MEDS: PHENOBARBITAL 30 MG/7.5 ML LIQUID UDC GT SCH ×2 (09:05→21:53)
[2020-07-02] MEDS: VITAL AF 1.2 1,000 ML LIQUID GT PRN (12:47)
[2020-07-02 20:00] VITALS: BP 124/56
[2020-07-02] MEDS: MAGNESIUM OXIDE 400 MG TABLET GT SCH (21:52)
[2020-07-02] MEDS: MULTIVITAMINS,THERAPEUTIC TABLET GT SCH (21:52)
[2020-07-03] MEDS: VITAL AF 1.2 1,000 ML LIQUID GT PRN (05:00)
[2020-07-03] MEDS: POLYVINYL ALCOHOL OPHT DROPS 15 ML BOTTLE EACHEYE SCH ×2 (05:16→17:07)
[2020-07-03] MEDS: OMEPRAZOLE 40 MG CAPSULE GT SCH (05:16)
[2020-07-03 07:57] VITALS: BP 99/48
[2020-07-03] MEDS: AMIODARONE HCL 200 MG TABLET GT SCH (08:40)
[2020-07-03] MEDS: ASPIRIN 81 MG TAB.CHEW GT SCH (08:40)
[2020-07-03] MEDS: levETIRAcetam 500 MG/5 ML LIQUID UDC GT SCH ×2 (08:41→21:37)
[2020-07-03] MEDS: PROTEIN SUPPLEMENT (PROSTAT) 30 ML LIQUID GT SCH ×2 (08:41→21:38)
[2020-07-03] MEDS: METOPROLOL TARTRATE 25 MG TABLET GT SCH ×2 (08:41→21:38)
[2020-07-03] MEDS: ASCORBIC ACID 500 MG TABLET GT SCH ×2 (08:41→21:38)
[2020-07-03] MEDS: DIAZEPAM 5 MG TABLET GT SCH ×2 (08:41→21:38)
[2020-07-03] MEDS: Z GUARD REMEDY PASTE 57 GM TUBE TOP SCH ×2 (08:42→21:39)
[2020-07-03] MEDS: COD LIVER OIL/ZINC OXIDE OINT 113 GM TUBE TP SCH ×4 (08:42→21:39)
[2020-07-03] MEDS: NEOMY/BACITRA/POLYMYXIN B OINT UD PACKET TP SCH ×2 (08:43→21:39)
[2020-07-03] MEDS: HYDROGEN PEROXIDE 3% 118 ML BOTTLE TP SCH ×2 (09:20→20:39)
[2020-07-03] MEDS: PHENOBARBITAL 30 MG/7.5 ML LIQUID UDC GT SCH ×2 (10:10→21:39)
[2020-07-03 15:12] VITALS: BP 99/48
[2020-07-03 20:28] VITALS: BP 111/71
[2020-07-03] MEDS: MULTIVITAMINS,THERAPEUTIC TABLET GT SCH (21:38)
[2020-07-03] MEDS: MAGNESIUM OXIDE 400 MG TABLET GT SCH (21:38)
[2020-07-04] MEDS: VITAL AF 1.2 1,000 ML LIQUID GT PRN ×2 (00:53→22:50)
[2020-07-04] MEDS: OMEPRAZOLE 40 MG CAPSULE GT SCH (05:49)
[2020-07-04] MEDS: POLYVINYL ALCOHOL OPHT DROPS 15 ML BOTTLE EACHEYE SCH ×2 (05:49→18:17)
[2020-07-04 07:34] LABS: BASOPHILS % (AUTO) 0.9 % (0.0-2.0); EOSINOPHILS # (AUTO) 0.1 K/uL (0.0-0.7); EOSINOPHILS % (AUTO) 3.3 % (0.0-7.0); HEMATOCRIT 23.4 % (31.2-41.9); HEMOGLOBIN 8.2 g/dL (10.9-14.3); LYMPHOCYTES # (AUTO) 1.2 K/uL (20.0-40.0); LYMPHOCYTES % (AUTO) 30.4 % (20.5-51.5); MEAN CORPUSCULAR HEMOGLOBIN 30.7 uug (24.7-32.8); MEAN CORPUSCULAR HGB CONC 35 g/dL (32.3-35.6); MEAN CORPUSCULAR VOLUME 87.7 fL (75.5-95.3); MONOCYTES # (AUTO) 0.5 K/uL (2.0-10.0); MONOCYTES % (AUTO) 12.6 % (0.0-11.0); NEUTROPHILS # (AUTO) 2.1 K/uL (1.8-8.9); NEUTROPHILS % (AUTO) 52.8 % (38.5-71.5); PLATELET COUNT (AUTO) 175 K/uL (179-408); RED BLOOD CELL COUNT(AUTO) 2.67 MIL/uL (3.63-4.92)
[2020-07-04 08:00] VITALS: BP 117/76
[2020-07-04] MEDS: ASPIRIN 81 MG TAB.CHEW GT SCH (08:10)
[2020-07-04] MEDS: DIAZEPAM 5 MG TABLET GT SCH ×2 (08:10→20:41)
[2020-07-04] MEDS: Z GUARD REMEDY PASTE 57 GM TUBE TOP SCH (08:11)
[2020-07-04] MEDS: METOPROLOL TARTRATE 25 MG TABLET GT SCH ×2 (08:11→20:41)
[2020-07-04] MEDS: ASCORBIC ACID 500 MG TABLET GT SCH ×2 (08:11→20:41)
[2020-07-04] MEDS: PROTEIN SUPPLEMENT (PROSTAT) 30 ML LIQUID GT SCH ×2 (08:11→20:41)
[2020-07-04] MEDS: levETIRAcetam 500 MG/5 ML LIQUID UDC GT SCH ×2 (08:11→20:41)
[2020-07-04] MEDS: COD LIVER OIL/ZINC OXIDE OINT 113 GM TUBE TP SCH ×4 (08:11→20:41)
[2020-07-04] MEDS: AMIODARONE HCL 200 MG TABLET GT SCH (08:11)
[2020-07-04 08:12] LABS: BILIRUBIN,TOTAL 0.2 mg/dL (0.2-1.0); CREATININE 0.6 mg/dL (0.6-1.3); PHOSPHOROUS 4.1 mg/dL (2.5-4.9); TOTAL PROTEIN, SERUM 7.4 g/dL (6.4-8.2)
[2020-07-04] MEDS: NEOMY/BACITRA/POLYMYXIN B OINT UD PACKET TP SCH ×2 (08:12→20:42)
[2020-07-04] MEDS: HYDROGEN PEROXIDE 3% 118 ML BOTTLE TP SCH ×2 (08:20→19:13)
[2020-07-04] MEDS: PHENOBARBITAL 30 MG/7.5 ML LIQUID UDC GT SCH ×2 (10:31→22:14)
[2020-07-04 20:12] VITALS: BP 128/83
[2020-07-04] MEDS: MULTIVITAMINS,THERAPEUTIC TABLET GT SCH (20:41)
[2020-07-04] MEDS: MAGNESIUM OXIDE 400 MG TABLET GT SCH (20:41)
[2020-07-05] MEDS: OMEPRAZOLE 40 MG CAPSULE GT SCH (06:13)
[2020-07-05] MEDS: POLYVINYL ALCOHOL OPHT DROPS 15 ML BOTTLE EACHEYE SCH ×2 (06:13→17:47)
[2020-07-05 07:46] VITALS: BP 106/65
[2020-07-05] MEDS: ASPIRIN 81 MG TAB.CHEW GT SCH (08:50)
[2020-07-05] MEDS: AMIODARONE HCL 200 MG TABLET GT SCH (08:53)
[2020-07-05] MEDS: levETIRAcetam 500 MG/5 ML LIQUID UDC GT SCH ×2 (08:53→20:48)
[2020-07-05] MEDS: PROTEIN SUPPLEMENT (PROSTAT) 30 ML LIQUID GT SCH ×2 (08:54→20:52)
[2020-07-05] MEDS: ASCORBIC ACID 500 MG TABLET GT SCH ×2 (08:54→20:52)
[2020-07-05] MEDS: NEOMY/BACITRA/POLYMYXIN B OINT UD PACKET TP SCH ×2 (08:54→20:52)
[2020-07-05] MEDS: COD LIVER OIL/ZINC OXIDE OINT 113 GM TUBE TP SCH ×4 (08:54→20:52)
[2020-07-05] MEDS: METOPROLOL TARTRATE 25 MG TABLET GT SCH ×2 (08:54→21:05)
[2020-07-05] MEDS: DIAZEPAM 5 MG TABLET GT SCH ×2 (08:55→20:49)
[2020-07-05] MEDS: HYDROGEN PEROXIDE 3% 118 ML BOTTLE TP SCH ×2 (09:40→20:32)
[2020-07-05] MEDS: PHENOBARBITAL 30 MG/7.5 ML LIQUID UDC GT SCH ×2 (09:58→21:05)
--- NOTE | 2020-07-05 15:00 | NUR ---
Seen and examined by Pippa Godoy. [employer],she check the gt overgrowth tissue.
[2020-07-05] MEDS: VITAL AF 1.2 1,000 ML LIQUID GT PRN (17:52)
[2020-07-05] MEDS: MULTIVITAMINS,THERAPEUTIC TABLET GT SCH (20:52)
[2020-07-05] MEDS: MAGNESIUM OXIDE 400 MG TABLET GT SCH (20:52)
[2020-07-05 21:09] VITALS: BP 103/65
[2020-07-06] MEDS: POLYVINYL ALCOHOL OPHT DROPS 15 ML BOTTLE EACHEYE SCH ×2 (05:13→18:23)
[2020-07-06] MEDS: OMEPRAZOLE 40 MG CAPSULE GT SCH (05:13)
--- NOTE | 2020-07-06 06:14 | NUR ---
cauterized g-tube site overgrown tissue, now looks gonzalez color, afebrile,no other distress noted.
[2020-07-06 07:56] VITALS: BP 117/66
[2020-07-06] MEDS: ASPIRIN 81 MG TAB.CHEW GT SCH (09:00)
[2020-07-06] MEDS: levETIRAcetam 500 MG/5 ML LIQUID UDC GT SCH ×2 (09:06→20:59)
[2020-07-06] MEDS: AMIODARONE HCL 200 MG TABLET GT SCH (09:06)
[2020-07-06] MEDS: ASCORBIC ACID 500 MG TABLET GT SCH ×2 (09:07→21:01)
[2020-07-06] MEDS: METOPROLOL TARTRATE 25 MG TABLET GT SCH ×2 (09:07→21:01)
[2020-07-06] MEDS: PROTEIN SUPPLEMENT (PROSTAT) 30 ML LIQUID GT SCH ×2 (09:07→21:01)
[2020-07-06] MEDS: COD LIVER OIL/ZINC OXIDE OINT 113 GM TUBE TP SCH ×4 (09:07→21:01)
[2020-07-06] MEDS: DIAZEPAM 5 MG TABLET GT SCH ×2 (09:07→21:01)
[2020-07-06] MEDS: PHENOBARBITAL 30 MG/7.5 ML LIQUID UDC GT SCH ×2 (09:08→21:02)
[2020-07-06] MEDS: NEOMY/BACITRA/POLYMYXIN B OINT UD PACKET TP SCH ×2 (09:08→21:02)
[2020-07-06] MEDS: HYDROGEN PEROXIDE 3% 118 ML BOTTLE TP SCH ×2 (09:35→21:02)
[2020-07-06] MEDS: VITAL AF 1.2 1,000 ML LIQUID GT PRN (14:37)
--- NOTE | 2020-07-06 19:09 | NUR ---
Seen and examined By Dr Lora,no new orders noted
[2020-07-06 20:00] VITALS: BP 122/68
[2020-07-06] MEDS: MAGNESIUM OXIDE 400 MG TABLET GT SCH (21:01)
[2020-07-06] MEDS: MULTIVITAMINS,THERAPEUTIC TABLET GT SCH (21:01)
--- NOTE | 2020-07-06 23:11 | NUR ---
Patient is afebrile, gt site looks gonzalez, no signs of bleeding or infection noted to gt site, Kept skin clean and dry.
[2020-07-07] MEDS: OMEPRAZOLE 40 MG CAPSULE GT SCH (06:01)
[2020-07-07] MEDS: POLYVINYL ALCOHOL OPHT DROPS 15 ML BOTTLE EACHEYE SCH ×2 (06:01→17:25)
[2020-07-07 07:39] VITALS: BP 127/82
[2020-07-07] MEDS: METOPROLOL TARTRATE 25 MG TABLET GT SCH ×2 (09:11→21:00)
[2020-07-07] MEDS: PROTEIN SUPPLEMENT (PROSTAT) 30 ML LIQUID GT SCH ×2 (09:11→21:00)
[2020-07-07] MEDS: ASPIRIN 81 MG TAB.CHEW GT SCH (09:11)
[2020-07-07] MEDS: AMIODARONE HCL 200 MG TABLET GT SCH (09:11)
[2020-07-07] MEDS: ASCORBIC ACID 500 MG TABLET GT SCH ×2 (09:11→21:00)
[2020-07-07] MEDS: levETIRAcetam 500 MG/5 ML LIQUID UDC GT SCH ×2 (09:11→21:00)
[2020-07-07] MEDS: DIAZEPAM 5 MG TABLET GT SCH ×2 (09:11→21:00)
[2020-07-07] MEDS: COD LIVER OIL/ZINC OXIDE OINT 113 GM TUBE TP SCH ×4 (09:11→21:00)
[2020-07-07] MEDS: NEOMY/BACITRA/POLYMYXIN B OINT UD PACKET TP SCH ×2 (09:12→21:00)
[2020-07-07] MEDS: HYDROGEN PEROXIDE 3% 118 ML BOTTLE TP SCH ×2 (09:46→21:28)
[2020-07-07] MEDS: PHENOBARBITAL 30 MG/7.5 ML LIQUID UDC GT SCH ×2 (10:00→22:25)
[2020-07-07] MEDS: VITAL AF 1.2 1,000 ML LIQUID GT PRN (11:34)
--- NOTE | 2020-07-07 19:17 | NUR ---
Received pt on HT-50 ventilator with the following settings of AC-14, Vt-500, PEEP+5, FIO2-28%, trached with Shiley#8 DCT trach, which is in the place and secure. No s/s of respiratory distress noted. Airway care done, pt responded to physical stimuli. HME changed. PPE used. Resus. bag and back up trach at bedside. Vent and alarms checked and reset.
[2020-07-07 20:00] VITALS: BP 108/66
[2020-07-07] MEDS: MULTIVITAMINS,THERAPEUTIC TABLET GT SCH (21:00)
[2020-07-07] MEDS: MAGNESIUM OXIDE 400 MG TABLET GT SCH (21:00)
[2020-07-08] MEDS: POLYVINYL ALCOHOL OPHT DROPS 15 ML BOTTLE EACHEYE SCH ×2 (06:22→17:50)
[2020-07-08] MEDS: OMEPRAZOLE 40 MG CAPSULE GT SCH (06:22)
[2020-07-08 07:54] VITALS: BP 111/69
[2020-07-08] MEDS: HYDROGEN PEROXIDE 3% 118 ML BOTTLE TP SCH ×2 (09:00→21:35)
[2020-07-08] MEDS: ASPIRIN 81 MG TAB.CHEW GT SCH (09:22)
[2020-07-08] MEDS: METOPROLOL TARTRATE 25 MG TABLET GT SCH ×2 (09:22→21:50)
[2020-07-08] MEDS: AMIODARONE HCL 200 MG TABLET GT SCH (09:22)
[2020-07-08] MEDS: ASCORBIC ACID 500 MG TABLET GT SCH ×2 (09:22→21:50)
[2020-07-08] MEDS: PROTEIN SUPPLEMENT (PROSTAT) 30 ML LIQUID GT SCH ×2 (09:22→21:50)
[2020-07-08] MEDS: levETIRAcetam 500 MG/5 ML LIQUID UDC GT SCH ×2 (09:22→21:50)
[2020-07-08] MEDS: DIAZEPAM 5 MG TABLET GT SCH ×2 (09:22→21:50)
[2020-07-08] MEDS: COD LIVER OIL/ZINC OXIDE OINT 113 GM TUBE TP SCH ×4 (09:22→21:51)
[2020-07-08] MEDS: NEOMY/BACITRA/POLYMYXIN B OINT UD PACKET TP SCH ×2 (09:23→21:51)
[2020-07-08] MEDS: PHENOBARBITAL 30 MG/7.5 ML LIQUID UDC GT SCH ×2 (10:36→21:51)
[2020-07-08 20:00] VITALS: BP 121/72
[2020-07-08] MEDS: MAGNESIUM OXIDE 400 MG TABLET GT SCH (21:50)
[2020-07-08] MEDS: MULTIVITAMINS,THERAPEUTIC TABLET GT SCH (21:50)
[2020-07-09] MEDS: VITAL AF 1.2 1,000 ML LIQUID GT PRN (03:48)
[2020-07-09] MEDS: POLYVINYL ALCOHOL OPHT DROPS 15 ML BOTTLE EACHEYE SCH ×2 (05:33→18:05)
[2020-07-09] MEDS: OMEPRAZOLE 40 MG CAPSULE GT SCH (05:33)
[2020-07-09] MEDS: HYDROGEN PEROXIDE 3% 118 ML BOTTLE TP SCH ×2 (07:35→21:35)
[2020-07-09 08:00] VITALS: BP 137/82
[2020-07-09] MEDS: ASPIRIN 81 MG TAB.CHEW GT SCH (09:34)
[2020-07-09] MEDS: levETIRAcetam 500 MG/5 ML LIQUID UDC GT SCH ×2 (09:36→21:45)
[2020-07-09] MEDS: AMIODARONE HCL 200 MG TABLET GT SCH (09:36)
[2020-07-09] MEDS: METOPROLOL TARTRATE 25 MG TABLET GT SCH ×2 (09:37→21:45)
[2020-07-09] MEDS: PROTEIN SUPPLEMENT (PROSTAT) 30 ML LIQUID GT SCH ×2 (09:37→21:47)
[2020-07-09] MEDS: ASCORBIC ACID 500 MG TABLET GT SCH ×2 (09:37→21:47)
[2020-07-09] MEDS: COD LIVER OIL/ZINC OXIDE OINT 113 GM TUBE TP SCH ×4 (09:37→21:47)
[2020-07-09] MEDS: DIAZEPAM 5 MG TABLET GT SCH ×2 (09:37→21:47)
[2020-07-09] MEDS: PHENOBARBITAL 30 MG/7.5 ML LIQUID UDC GT SCH ×2 (09:37→21:47)
[2020-07-09] MEDS: NEOMY/BACITRA/POLYMYXIN B OINT UD PACKET TP SCH ×2 (09:37→21:47)
[2020-07-09 20:22] VITALS: BP 142/85
[2020-07-09] MEDS: MAGNESIUM OXIDE 400 MG TABLET GT SCH (21:46)
[2020-07-09] MEDS: MULTIVITAMINS,THERAPEUTIC TABLET GT SCH (21:47)
[2020-07-10] MEDS: OMEPRAZOLE 40 MG CAPSULE GT SCH (05:33)
[2020-07-10] MEDS: POLYVINYL ALCOHOL OPHT DROPS 15 ML BOTTLE EACHEYE SCH ×2 (05:33→17:01)
[2020-07-10] MEDS: VITAL AF 1.2 1,000 ML LIQUID GT PRN (05:35)
[2020-07-10 07:40] VITALS: BP 102/64
[2020-07-10] MEDS: AMIODARONE HCL 200 MG TABLET GT SCH (08:31)
[2020-07-10] MEDS: levETIRAcetam 500 MG/5 ML LIQUID UDC GT SCH ×2 (08:31→20:15)
[2020-07-10] MEDS: ASPIRIN 81 MG TAB.CHEW GT SCH (08:31)
[2020-07-10] MEDS: PROTEIN SUPPLEMENT (PROSTAT) 30 ML LIQUID GT SCH ×2 (08:32→20:15)
[2020-07-10] MEDS: METOPROLOL TARTRATE 25 MG TABLET GT SCH ×2 (08:32→20:15)
[2020-07-10] MEDS: ASCORBIC ACID 500 MG TABLET GT SCH ×2 (08:35→20:15)
[2020-07-10] MEDS: DIAZEPAM 5 MG TABLET GT SCH ×2 (08:35→20:15)
[2020-07-10] MEDS: COD LIVER OIL/ZINC OXIDE OINT 113 GM TUBE TP SCH ×4 (08:36→20:15)
[2020-07-10] MEDS: NEOMY/BACITRA/POLYMYXIN B OINT UD PACKET TP SCH ×2 (08:36→20:15)
[2020-07-10] MEDS: PHENOBARBITAL 30 MG/7.5 ML LIQUID UDC GT SCH ×2 (09:06→21:15)
[2020-07-10] MEDS: HYDROGEN PEROXIDE 3% 118 ML BOTTLE TP SCH ×2 (09:53→21:04)
[2020-07-10 19:20] VITALS: BP 119/7
[2020-07-10] MEDS: MULTIVITAMINS,THERAPEUTIC TABLET GT SCH (20:15)
[2020-07-10] MEDS: MAGNESIUM OXIDE 400 MG TABLET GT SCH (20:15)
[2020-07-11] MEDS: VITAL AF 1.2 1,000 ML LIQUID GT PRN (03:40)
[2020-07-11] MEDS: OMEPRAZOLE 40 MG CAPSULE GT SCH (05:26)
[2020-07-11] MEDS: POLYVINYL ALCOHOL OPHT DROPS 15 ML BOTTLE EACHEYE SCH ×2 (05:26→17:24)
[2020-07-11 07:38] VITALS: BP 126/72
[2020-07-11] MEDS: ASPIRIN 81 MG TAB.CHEW GT SCH (08:16)
[2020-07-11] MEDS: levETIRAcetam 500 MG/5 ML LIQUID UDC GT SCH ×2 (08:17→21:37)
[2020-07-11] MEDS: AMIODARONE HCL 200 MG TABLET GT SCH (08:17)
[2020-07-11] MEDS: COD LIVER OIL/ZINC OXIDE OINT 113 GM TUBE TP SCH ×4 (08:18→21:38)
[2020-07-11] MEDS: ASCORBIC ACID 500 MG TABLET GT SCH ×2 (08:18→21:38)
[2020-07-11] MEDS: PHENOBARBITAL 30 MG/7.5 ML LIQUID UDC GT SCH ×2 (08:18→21:38)
[2020-07-11] MEDS: METOPROLOL TARTRATE 25 MG TABLET GT SCH ×2 (08:18→21:38)
[2020-07-11] MEDS: PROTEIN SUPPLEMENT (PROSTAT) 30 ML LIQUID GT SCH ×2 (08:18→21:38)
[2020-07-11] MEDS: DIAZEPAM 5 MG TABLET GT SCH ×2 (08:18→21:38)
[2020-07-11] MEDS: NEOMY/BACITRA/POLYMYXIN B OINT UD PACKET TP SCH ×2 (08:18→21:39)
[2020-07-11] MEDS: HYDROGEN PEROXIDE 3% 118 ML BOTTLE TP SCH ×2 (09:50→21:38)
[2020-07-11 20:00] VITALS: BP 133/82
[2020-07-11] MEDS: MAGNESIUM OXIDE 400 MG TABLET GT SCH (21:38)
[2020-07-11] MEDS: MULTIVITAMINS,THERAPEUTIC TABLET GT SCH (21:38)
[2020-07-12] MEDS: OMEPRAZOLE 40 MG CAPSULE GT SCH (05:26)
[2020-07-12] MEDS: POLYVINYL ALCOHOL OPHT DROPS 15 ML BOTTLE EACHEYE SCH ×3 (05:26→22:02)
[2020-07-12] MEDS: HYDROGEN PEROXIDE 3% 118 ML BOTTLE TP SCH ×2 (07:25→21:06)
[2020-07-12 07:37] VITALS: BP 108/67
[2020-07-12] MEDS: ASPIRIN 81 MG TAB.CHEW GT SCH (08:06)
[2020-07-12] MEDS: AMIODARONE HCL 200 MG TABLET GT SCH (08:07)
[2020-07-12] MEDS: levETIRAcetam 500 MG/5 ML LIQUID UDC GT SCH ×2 (08:07→21:58)
[2020-07-12] MEDS: METOPROLOL TARTRATE 25 MG TABLET GT SCH ×2 (08:08→22:01)
[2020-07-12] MEDS: PROTEIN SUPPLEMENT (PROSTAT) 30 ML LIQUID GT SCH ×2 (08:09→21:00)
[2020-07-12] MEDS: PHENOBARBITAL 30 MG/7.5 ML LIQUID UDC GT SCH ×2 (08:09→21:00)
[2020-07-12] MEDS: DIAZEPAM 5 MG TABLET GT SCH ×2 (08:09→21:00)
[2020-07-12] MEDS: ASCORBIC ACID 500 MG TABLET GT SCH ×2 (08:09→21:00)
[2020-07-12] MEDS: COD LIVER OIL/ZINC OXIDE OINT 113 GM TUBE TP SCH ×4 (08:10→21:00)
[2020-07-12] MEDS: NEOMY/BACITRA/POLYMYXIN B OINT UD PACKET TP SCH ×2 (09:51→21:00)
[2020-07-12 19:50] VITALS: BP 115/65
[2020-07-12] MEDS: MAGNESIUM OXIDE 400 MG TABLET GT SCH (21:00)
[2020-07-12] MEDS: MULTIVITAMINS,THERAPEUTIC TABLET GT SCH (21:00)
[2020-07-13] MEDS: VITAL AF 1.2 1,000 ML LIQUID GT PRN ×2 (00:30→18:08)
[2020-07-13] MEDS: OMEPRAZOLE 40 MG CAPSULE GT SCH (05:29)
[2020-07-13] MEDS: HYDROGEN PEROXIDE 3% 118 ML BOTTLE TP SCH ×2 (07:40→20:59)
[2020-07-13 07:41] VITALS: BP 110/67
[2020-07-13] MEDS: METOPROLOL TARTRATE 25 MG TABLET GT SCH ×2 (08:14→21:00)
[2020-07-13] MEDS: ASPIRIN 81 MG TAB.CHEW GT SCH (08:15)
[2020-07-13] MEDS: levETIRAcetam 500 MG/5 ML LIQUID UDC GT SCH ×2 (08:16→21:00)
[2020-07-13] MEDS: AMIODARONE HCL 200 MG TABLET GT SCH (08:16)
[2020-07-13] MEDS: COD LIVER OIL/ZINC OXIDE OINT 113 GM TUBE TP SCH ×4 (08:17→21:00)
[2020-07-13] MEDS: PROTEIN SUPPLEMENT (PROSTAT) 30 ML LIQUID GT SCH ×2 (08:17→21:00)
[2020-07-13] MEDS: ASCORBIC ACID 500 MG TABLET GT SCH ×2 (08:17→21:00)
[2020-07-13] MEDS: DIAZEPAM 5 MG TABLET GT SCH ×2 (08:17→21:00)
[2020-07-13] MEDS: NEOMY/BACITRA/POLYMYXIN B OINT UD PACKET TP SCH (08:17)
[2020-07-13] MEDS: PHENOBARBITAL 30 MG/7.5 ML LIQUID UDC GT SCH ×2 (08:17→21:00)
[2020-07-13] MEDS: POLYVINYL ALCOHOL OPHT DROPS 15 ML BOTTLE EACHEYE SCH (18:08)
--- NOTE | 2020-07-13 18:25 | NUR ---
Seen and examined By Pippa Godoy NP,cauterized with silver nitrate gt overgrowth tissue ,procedure tolerated well.
[2020-07-13 19:55] VITALS: BP 110/76
[2020-07-13] MEDS: MAGNESIUM OXIDE 400 MG TABLET GT SCH (21:00)
[2020-07-13] MEDS: MULTIVITAMINS,THERAPEUTIC TABLET GT SCH (21:00)
[2020-07-14] MEDS: OMEPRAZOLE 40 MG CAPSULE GT SCH (05:38)
[2020-07-14] MEDS: POLYVINYL ALCOHOL OPHT DROPS 15 ML BOTTLE EACHEYE SCH ×2 (05:38→17:15)
[2020-07-14 07:28] VITALS: BP 111/71
[2020-07-14] MEDS: HYDROGEN PEROXIDE 3% 118 ML BOTTLE TP SCH ×2 (07:54→21:52)
[2020-07-14] MEDS: ASPIRIN 81 MG TAB.CHEW GT SCH (08:49)
[2020-07-14] MEDS: AMIODARONE HCL 200 MG TABLET GT SCH (08:51)
[2020-07-14] MEDS: METOPROLOL TARTRATE 25 MG TABLET GT SCH ×2 (08:51→20:42)
[2020-07-14] MEDS: levETIRAcetam 500 MG/5 ML LIQUID UDC GT SCH ×2 (08:51→20:41)
[2020-07-14] MEDS: PHENOBARBITAL 30 MG/7.5 ML LIQUID UDC GT SCH ×2 (08:51→20:43)
[2020-07-14] MEDS: PROTEIN SUPPLEMENT (PROSTAT) 30 ML LIQUID GT SCH ×2 (08:53→20:44)
[2020-07-14] MEDS: ASCORBIC ACID 500 MG TABLET GT SCH ×2 (08:53→20:44)
[2020-07-14] MEDS: COD LIVER OIL/ZINC OXIDE OINT 113 GM TUBE TP SCH ×4 (08:53→20:47)
[2020-07-14] MEDS: Z GUARD REMEDY PASTE 57 GM TUBE TOP SCH ×2 (08:53→20:47)
[2020-07-14] MEDS: DIAZEPAM 5 MG TABLET GT SCH ×2 (08:53→20:44)
[2020-07-14] MEDS: VITAL AF 1.2 1,000 ML LIQUID GT PRN (11:47)
[2020-07-14 20:18] VITALS: BP 143/93
[2020-07-14] MEDS: MAGNESIUM OXIDE 400 MG TABLET GT SCH (20:42)
[2020-07-14] MEDS: MULTIVITAMINS,THERAPEUTIC TABLET GT SCH (20:44)
[2020-07-15] MEDS: OMEPRAZOLE 40 MG CAPSULE GT SCH (05:22)
[2020-07-15] MEDS: POLYVINYL ALCOHOL OPHT DROPS 15 ML BOTTLE EACHEYE SCH ×2 (05:22→18:02)
[2020-07-15 07:26] VITALS: BP 112/69
[2020-07-15] MEDS: ASPIRIN 81 MG TAB.CHEW GT SCH (08:59)
[2020-07-15] MEDS: AMIODARONE HCL 200 MG TABLET GT SCH (09:00)
[2020-07-15] MEDS: levETIRAcetam 500 MG/5 ML LIQUID UDC GT SCH ×2 (09:00→20:37)
[2020-07-15] MEDS: ASCORBIC ACID 500 MG TABLET GT SCH ×2 (09:02→20:40)
[2020-07-15] MEDS: METOPROLOL TARTRATE 25 MG TABLET GT SCH ×2 (09:02→20:38)
[2020-07-15] MEDS: DIAZEPAM 5 MG TABLET GT SCH ×2 (09:02→20:40)
[2020-07-15] MEDS: PROTEIN SUPPLEMENT (PROSTAT) 30 ML LIQUID GT SCH ×2 (09:02→20:39)
[2020-07-15] MEDS: PHENOBARBITAL 30 MG/7.5 ML LIQUID UDC GT SCH ×2 (09:02→20:39)
[2020-07-15] MEDS: VITAL AF 1.2 1,000 ML LIQUID GT PRN (09:03)
[2020-07-15] MEDS: Z GUARD REMEDY PASTE 57 GM TUBE TOP SCH ×2 (09:03→20:41)
[2020-07-15] MEDS: COD LIVER OIL/ZINC OXIDE OINT 113 GM TUBE TP SCH ×4 (09:03→20:42)
[2020-07-15] MEDS: HYDROGEN PEROXIDE 3% 118 ML BOTTLE TP SCH ×2 (09:39→21:44)
[2020-07-15 19:25] VITALS: BP 120/71
[2020-07-15] MEDS: MAGNESIUM OXIDE 400 MG TABLET GT SCH (20:39)
[2020-07-15] MEDS: MULTIVITAMINS,THERAPEUTIC TABLET GT SCH (20:39)
[2020-07-16] MEDS: VITAL AF 1.2 1,000 ML LIQUID GT PRN (04:24)
[2020-07-16] MEDS: OMEPRAZOLE 40 MG CAPSULE GT SCH (05:21)
[2020-07-16] MEDS: POLYVINYL ALCOHOL OPHT DROPS 15 ML BOTTLE EACHEYE SCH ×2 (05:21→18:05)
[2020-07-16 07:55] VITALS: BP 113/76
[2020-07-16] MEDS: ASPIRIN 81 MG TAB.CHEW GT SCH (08:26)
[2020-07-16] MEDS: AMIODARONE HCL 200 MG TABLET GT SCH (08:27)
[2020-07-16] MEDS: levETIRAcetam 500 MG/5 ML LIQUID UDC GT SCH ×2 (08:28→20:59)
[2020-07-16] MEDS: METOPROLOL TARTRATE 25 MG TABLET GT SCH ×2 (08:30→20:59)
[2020-07-16] MEDS: Z GUARD REMEDY PASTE 57 GM TUBE TOP SCH ×2 (08:31→20:59)
[2020-07-16] MEDS: DIAZEPAM 5 MG TABLET GT SCH ×2 (08:31→20:59)
[2020-07-16] MEDS: PROTEIN SUPPLEMENT (PROSTAT) 30 ML LIQUID GT SCH ×2 (08:31→20:59)
[2020-07-16] MEDS: PHENOBARBITAL 30 MG/7.5 ML LIQUID UDC GT SCH ×2 (08:31→20:59)
[2020-07-16] MEDS: ASCORBIC ACID 500 MG TABLET GT SCH ×2 (08:31→20:59)
[2020-07-16] MEDS: COD LIVER OIL/ZINC OXIDE OINT 113 GM TUBE TP SCH ×4 (08:31→21:00)
[2020-07-16] MEDS: HYDROGEN PEROXIDE 3% 118 ML BOTTLE TP SCH ×2 (09:40→21:00)
[2020-07-16 19:08] VITALS: BP 136/79
[2020-07-16] MEDS: MAGNESIUM OXIDE 400 MG TABLET GT SCH (20:59)
[2020-07-16] MEDS: MULTIVITAMINS,THERAPEUTIC TABLET GT SCH (20:59)
[2020-07-17] MEDS: VITAL AF 1.2 1,000 ML LIQUID GT PRN (01:11)
[2020-07-17] MEDS: POLYVINYL ALCOHOL OPHT DROPS 15 ML BOTTLE EACHEYE SCH ×2 (05:18→17:24)
[2020-07-17] MEDS: OMEPRAZOLE 40 MG CAPSULE GT SCH (05:18)
[2020-07-17] MEDS: HYDROGEN PEROXIDE 3% 118 ML BOTTLE TP SCH ×2 (07:41→21:30)
[2020-07-17 07:50] VITALS: BP 117/66
[2020-07-17] MEDS: ASPIRIN 81 MG TAB.CHEW GT SCH (09:08)
[2020-07-17] MEDS: METOPROLOL TARTRATE 25 MG TABLET GT SCH ×2 (09:11→20:26)
[2020-07-17] MEDS: PROTEIN SUPPLEMENT (PROSTAT) 30 ML LIQUID GT SCH ×2 (09:11→20:26)
[2020-07-17] MEDS: ASCORBIC ACID 500 MG TABLET GT SCH ×2 (09:11→20:26)
[2020-07-17] MEDS: levETIRAcetam 500 MG/5 ML LIQUID UDC GT SCH ×2 (09:11→20:26)
[2020-07-17] MEDS: PHENOBARBITAL 30 MG/7.5 ML LIQUID UDC GT SCH ×2 (09:11→20:26)
[2020-07-17] MEDS: DIAZEPAM 5 MG TABLET GT SCH ×2 (09:11→20:26)
[2020-07-17] MEDS: AMIODARONE HCL 200 MG TABLET GT SCH (09:11)
[2020-07-17] MEDS: COD LIVER OIL/ZINC OXIDE OINT 113 GM TUBE TP SCH ×4 (09:11→20:27)
[2020-07-17] MEDS: Z GUARD REMEDY PASTE 57 GM TUBE TOP SCH ×2 (09:11→20:26)
[2020-07-17] MEDS ORDERED: TUBERCULIN,PURIF.PROT.DERIV. 5 TU/0.1 ML TEST ID ONE (14:30)
[2020-07-17 19:21] VITALS: BP 123/76
[2020-07-17] MEDS: MAGNESIUM OXIDE 400 MG TABLET GT SCH (20:26)
[2020-07-17] MEDS: MULTIVITAMINS,THERAPEUTIC TABLET GT SCH (20:26)
[2020-07-18] MEDS: OMEPRAZOLE 40 MG CAPSULE GT SCH (05:06)
[2020-07-18] MEDS: POLYVINYL ALCOHOL OPHT DROPS 15 ML BOTTLE EACHEYE SCH ×2 (05:06→17:14)
[2020-07-18 07:40] VITALS: BP 105/69
[2020-07-18] MEDS: ASPIRIN 81 MG TAB.CHEW GT SCH (08:54)
[2020-07-18] MEDS: ASCORBIC ACID 500 MG TABLET GT SCH ×2 (08:54→21:14)
[2020-07-18] MEDS: AMIODARONE HCL 200 MG TABLET GT SCH (08:54)
[2020-07-18] MEDS: METOPROLOL TARTRATE 25 MG TABLET GT SCH ×2 (08:54→21:00)
[2020-07-18] MEDS: levETIRAcetam 500 MG/5 ML LIQUID UDC GT SCH ×2 (08:54→21:13)
[2020-07-18] MEDS: PHENOBARBITAL 30 MG/7.5 ML LIQUID UDC GT SCH ×2 (08:54→21:13)
[2020-07-18] MEDS: PROTEIN SUPPLEMENT (PROSTAT) 30 ML LIQUID GT SCH ×2 (08:54→21:13)
[2020-07-18] MEDS: DIAZEPAM 5 MG TABLET GT SCH ×2 (08:54→21:14)
[2020-07-18] MEDS: Z GUARD REMEDY PASTE 57 GM TUBE TOP SCH ×2 (08:54→21:14)
[2020-07-18] MEDS: COD LIVER OIL/ZINC OXIDE OINT 113 GM TUBE TP SCH ×4 (08:55→21:14)
[2020-07-18] MEDS: HYDROGEN PEROXIDE 3% 118 ML BOTTLE TP SCH ×2 (09:25→19:29)
[2020-07-18] MEDS: VITAL AF 1.2 1,000 ML LIQUID GT PRN ×2 (17:15)
[2020-07-18 20:09] VITALS: BP 115/69
[2020-07-18] MEDS: MAGNESIUM OXIDE 400 MG TABLET GT SCH (21:13)
[2020-07-18] MEDS: MULTIVITAMINS,THERAPEUTIC TABLET GT SCH (21:14)
--- NOTE | 2020-07-19 | NUR ---
REFUSED TO HAVE BLOOD SUGAR DONE,GETTING UPSET BECAUSE NURSE WOULD NOT GIVE HIM ANYMORE FRUIT JUICE AND SANDWICHES. STARTED TO SCREAM BUT WAS INSTRUCTED THAT HE IS DIABETIC AND NEEDS TO COMPLY TO HIS TREATMENT AND REGIMEN. Addendum: 07/25/20 at 0753 by ALTON VELASQUEZ RN WRONG PT'
[2020-07-19] MEDS: OMEPRAZOLE 40 MG CAPSULE GT SCH (05:55)
[2020-07-19] MEDS: POLYVINYL ALCOHOL OPHT DROPS 15 ML BOTTLE EACHEYE SCH ×2 (05:55→17:59)
[2020-07-19 07:31] VITALS: BP 129/73
[2020-07-19] MEDS: AMIODARONE HCL 200 MG TABLET GT SCH (08:36)
[2020-07-19] MEDS: levETIRAcetam 500 MG/5 ML LIQUID UDC GT SCH ×2 (08:36→21:37)
[2020-07-19] MEDS: ASPIRIN 81 MG TAB.CHEW GT SCH (08:36)
[2020-07-19] MEDS: METOPROLOL TARTRATE 25 MG TABLET GT SCH ×2 (08:37→21:37)
[2020-07-19] MEDS: COD LIVER OIL/ZINC OXIDE OINT 113 GM TUBE TP SCH ×4 (08:37→21:38)
[2020-07-19] MEDS: Z GUARD REMEDY PASTE 57 GM TUBE TOP SCH ×2 (08:37→21:38)
[2020-07-19] MEDS: ASCORBIC ACID 500 MG TABLET GT SCH ×2 (08:37→21:38)
[2020-07-19] MEDS: PHENOBARBITAL 30 MG/7.5 ML LIQUID UDC GT SCH ×2 (08:37→21:38)
[2020-07-19] MEDS: DIAZEPAM 5 MG TABLET GT SCH ×2 (08:37→21:38)
[2020-07-19] MEDS: PROTEIN SUPPLEMENT (PROSTAT) 30 ML LIQUID GT SCH ×2 (08:37→21:38)
[2020-07-19] MEDS: HYDROGEN PEROXIDE 3% 118 ML BOTTLE TP SCH ×2 (08:49→21:54)
[2020-07-19] MEDS: VITAL AF 1.2 1,000 ML LIQUID GT PRN (13:49)
--- NOTE | 2020-07-19 15:34 | NUR ---
INTERDISCIPLINARY PLAN OF CARE CONFERENCE was held today. Patient's family was not available to participate in the IDT meeting. Dr. Lora and the Interdisciplinary Team reviewed the current plan of care in detail. Nursing reported on patient's medical condition, and that patient remains on isolation for C-diff and ESVL. See nursing IDT conference notes. No major changes in medical condition were reported by nursing or by other disciplines. See all other disciplines IDT notes and physician's progress notes for additional details.
[2020-07-19 20:04] VITALS: BP 123/81
[2020-07-19] MEDS: MAGNESIUM OXIDE 400 MG TABLET GT SCH (21:37)
[2020-07-19] MEDS: MULTIVITAMINS,THERAPEUTIC TABLET GT SCH (21:38)
[2020-07-20] MEDS: OMEPRAZOLE 40 MG CAPSULE GT SCH (05:00)
[2020-07-20] MEDS: POLYVINYL ALCOHOL OPHT DROPS 15 ML BOTTLE EACHEYE SCH ×2 (05:00→18:10)
[2020-07-20] MEDS: HYDROGEN PEROXIDE 3% 118 ML BOTTLE TP SCH ×2 (07:38→21:38)
[2020-07-20 07:42] VITALS: BP 116/64
[2020-07-20] MEDS: ASCORBIC ACID 500 MG TABLET GT SCH ×2 (08:59→20:38)
[2020-07-20] MEDS: Z GUARD REMEDY PASTE 57 GM TUBE TOP SCH ×2 (08:59→20:38)
[2020-07-20] MEDS: COD LIVER OIL/ZINC OXIDE OINT 113 GM TUBE TP SCH ×4 (08:59→20:38)
[2020-07-20] MEDS: ASPIRIN 81 MG TAB.CHEW GT SCH (08:59)
[2020-07-20] MEDS: DIAZEPAM 5 MG TABLET GT SCH ×2 (08:59→20:38)
[2020-07-20] MEDS: METOPROLOL TARTRATE 25 MG TABLET GT SCH ×2 (08:59→20:36)
[2020-07-20] MEDS: PHENOBARBITAL 30 MG/7.5 ML LIQUID UDC GT SCH ×2 (08:59→20:38)
[2020-07-20] MEDS: AMIODARONE HCL 200 MG TABLET GT SCH (08:59)
[2020-07-20] MEDS: levETIRAcetam 500 MG/5 ML LIQUID UDC GT SCH ×2 (08:59→20:36)
[2020-07-20] MEDS: PROTEIN SUPPLEMENT (PROSTAT) 30 ML LIQUID GT SCH ×2 (08:59→20:38)
--- NOTE | 2020-07-20 18:58 | NUR ---
Pt's father Chaz notified regarding Covid 19 was negative.
[2020-07-20 20:05] VITALS: BP 131/85
--- NOTE | 2020-07-20 20:31 | NUR ---
Seen and examined by Dr Lora , new orders noted.
[2020-07-20] MEDS: MAGNESIUM OXIDE 400 MG TABLET GT SCH (20:36)
[2020-07-20] MEDS: MULTIVITAMINS,THERAPEUTIC TABLET GT SCH (20:38)
[2020-07-21] MEDS: POLYVINYL ALCOHOL OPHT DROPS 15 ML BOTTLE EACHEYE SCH ×2 (05:40→18:18)
[2020-07-21] MEDS: VITAL AF 1.2 1,000 ML LIQUID GT PRN (05:40)
[2020-07-21] MEDS: OMEPRAZOLE 40 MG CAPSULE GT SCH (05:40)
[2020-07-21 07:30] VITALS: BP 93/49
[2020-07-21] MEDS: METOPROLOL TARTRATE 25 MG TABLET GT SCH ×2 (09:00→21:00)
[2020-07-21] MEDS: ASPIRIN 81 MG TAB.CHEW GT SCH (09:08)
[2020-07-21] MEDS: AMIODARONE HCL 200 MG TABLET GT SCH (09:09)
[2020-07-21] MEDS: levETIRAcetam 500 MG/5 ML LIQUID UDC GT SCH ×2 (09:09→21:00)
[2020-07-21] MEDS: PROTEIN SUPPLEMENT (PROSTAT) 30 ML LIQUID GT SCH ×2 (09:11→21:00)
[2020-07-21] MEDS: PHENOBARBITAL 30 MG/7.5 ML LIQUID UDC GT SCH ×2 (09:11→21:00)
[2020-07-21] MEDS: COD LIVER OIL/ZINC OXIDE OINT 113 GM TUBE TP SCH ×4 (09:12→21:00)
[2020-07-21] MEDS: DIAZEPAM 5 MG TABLET GT SCH ×2 (09:12→21:00)
[2020-07-21] MEDS: ASCORBIC ACID 500 MG TABLET GT SCH ×2 (09:12→21:00)
[2020-07-21] MEDS: Z GUARD REMEDY PASTE 57 GM TUBE TOP SCH ×2 (09:12→21:00)
[2020-07-21] MEDS: HYDROGEN PEROXIDE 3% 118 ML BOTTLE TP SCH ×2 (09:44→20:49)
[2020-07-21 20:00] VITALS: BP 112/69
[2020-07-21] MEDS: MULTIVITAMINS,THERAPEUTIC TABLET GT SCH (21:00)
[2020-07-21] MEDS: MAGNESIUM OXIDE 400 MG TABLET GT SCH (21:00)
[2020-07-22] MEDS: VITAL AF 1.2 1,000 ML LIQUID GT PRN (03:26)
[2020-07-22] MEDS: OMEPRAZOLE 40 MG CAPSULE GT SCH (05:07)
[2020-07-22] MEDS: POLYVINYL ALCOHOL OPHT DROPS 15 ML BOTTLE EACHEYE SCH ×2 (05:07→18:22)
[2020-07-22 08:00] VITALS: BP 121/72
[2020-07-22] MEDS: ASPIRIN 81 MG TAB.CHEW GT SCH (08:00)
[2020-07-22] MEDS: PHENOBARBITAL 30 MG/7.5 ML LIQUID UDC GT SCH ×2 (08:01→20:29)
[2020-07-22] MEDS: COD LIVER OIL/ZINC OXIDE OINT 113 GM TUBE TP SCH ×4 (08:01→20:29)
[2020-07-22] MEDS: ASCORBIC ACID 500 MG TABLET GT SCH ×2 (08:01→20:29)
[2020-07-22] MEDS: AMIODARONE HCL 200 MG TABLET GT SCH (08:01)
[2020-07-22] MEDS: levETIRAcetam 500 MG/5 ML LIQUID UDC GT SCH ×2 (08:01→20:29)
[2020-07-22] MEDS: DIAZEPAM 5 MG TABLET GT SCH ×2 (08:01→20:29)
[2020-07-22] MEDS: PROTEIN SUPPLEMENT (PROSTAT) 30 ML LIQUID GT SCH ×2 (08:01→20:35)
[2020-07-22] MEDS: Z GUARD REMEDY PASTE 57 GM TUBE TOP SCH ×2 (08:01→20:29)
[2020-07-22] MEDS: METOPROLOL TARTRATE 25 MG TABLET GT SCH ×2 (08:01→20:29)
[2020-07-22] MEDS: HYDROGEN PEROXIDE 3% 118 ML BOTTLE TP SCH ×2 (09:00→21:58)
[2020-07-22 20:17] VITALS: BP 149/91
[2020-07-22] MEDS: MULTIVITAMINS,THERAPEUTIC TABLET GT SCH (20:29)
[2020-07-22] MEDS: MAGNESIUM OXIDE 400 MG TABLET GT SCH (20:29)
[2020-07-23] MEDS: VITAL AF 1.2 1,000 ML LIQUID GT PRN ×2 (01:18→21:51)
--- NOTE | 2020-07-23 02:05 | NUR ---
For COVID-19 testing as per [facility] requirement.
[2020-07-23] MEDS: POLYVINYL ALCOHOL OPHT DROPS 15 ML BOTTLE EACHEYE SCH ×2 (05:52→17:42)
[2020-07-23] MEDS: OMEPRAZOLE 40 MG CAPSULE GT SCH (05:52)
[2020-07-23 07:38] VITALS: BP 96/69
[2020-07-23] MEDS: HYDROGEN PEROXIDE 3% 118 ML BOTTLE TP SCH ×2 (07:45→21:00)
--- NOTE | 2020-07-23 08:00 | NUR ---
PT'S FATHER AWARE OF COVID 19 TEST TODAY.
[2020-07-23] MEDS: ASPIRIN 81 MG TAB.CHEW GT SCH (08:55)
[2020-07-23] MEDS: AMIODARONE HCL 200 MG TABLET GT SCH (08:55)
[2020-07-23] MEDS: PHENOBARBITAL 30 MG/7.5 ML LIQUID UDC GT SCH ×2 (08:56→21:45)
[2020-07-23] MEDS: METOPROLOL TARTRATE 25 MG TABLET GT SCH ×2 (08:56→21:45)
[2020-07-23] MEDS: levETIRAcetam 500 MG/5 ML LIQUID UDC GT SCH ×2 (08:56→21:44)
[2020-07-23] MEDS: PROTEIN SUPPLEMENT (PROSTAT) 30 ML LIQUID GT SCH ×2 (08:57→21:46)
[2020-07-23] MEDS: DIAZEPAM 5 MG TABLET GT SCH ×2 (08:57→21:46)
[2020-07-23] MEDS: Z GUARD REMEDY PASTE 57 GM TUBE TOP SCH ×2 (08:57→21:46)
[2020-07-23] MEDS: COD LIVER OIL/ZINC OXIDE OINT 113 GM TUBE TP SCH ×4 (08:57→21:46)
[2020-07-23] MEDS: ASCORBIC ACID 500 MG TABLET GT SCH ×2 (08:57→21:46)
[2020-07-23 20:25] VITALS: BP 126/75
[2020-07-23] MEDS: MAGNESIUM OXIDE 400 MG TABLET GT SCH (21:45)
[2020-07-23] MEDS: MULTIVITAMINS,THERAPEUTIC TABLET GT SCH (21:46)
[2020-07-24] MEDS: POLYVINYL ALCOHOL OPHT DROPS 15 ML BOTTLE EACHEYE SCH ×2 (05:10→17:47)
[2020-07-24] MEDS: OMEPRAZOLE 40 MG CAPSULE GT SCH (05:10)
[2020-07-24 07:29] VITALS: BP 102/60
[2020-07-24] MEDS: HYDROGEN PEROXIDE 3% 118 ML BOTTLE TP SCH ×2 (08:14→21:31)
[2020-07-24] MEDS: ASPIRIN 81 MG TAB.CHEW GT SCH (08:19)
[2020-07-24] MEDS: METOPROLOL TARTRATE 25 MG TABLET GT SCH ×2 (08:19→20:41)
[2020-07-24] MEDS: PHENOBARBITAL 30 MG/7.5 ML LIQUID UDC GT SCH ×2 (08:19→20:41)
[2020-07-24] MEDS: DIAZEPAM 5 MG TABLET GT SCH ×2 (08:19→20:41)
[2020-07-24] MEDS: AMIODARONE HCL 200 MG TABLET GT SCH (08:19)
[2020-07-24] MEDS: ASCORBIC ACID 500 MG TABLET GT SCH ×2 (08:19→20:41)
[2020-07-24] MEDS: levETIRAcetam 500 MG/5 ML LIQUID UDC GT SCH ×2 (08:19→20:40)
[2020-07-24] MEDS: PROTEIN SUPPLEMENT (PROSTAT) 30 ML LIQUID GT SCH ×2 (08:19→20:41)
[2020-07-24] MEDS: Z GUARD REMEDY PASTE 57 GM TUBE TOP SCH ×2 (08:20→20:42)
[2020-07-24] MEDS: COD LIVER OIL/ZINC OXIDE OINT 113 GM TUBE TP SCH ×4 (08:20→20:42)
--- NOTE | 2020-07-24 12:52 | NUR ---
PT'S FATHER AWARE WITH MESSAGE PT'S COVID 19 TEST IS NEGATIVE.
[2020-07-24 19:59] VITALS: BP 134/81
[2020-07-24] MEDS: MAGNESIUM OXIDE 400 MG TABLET GT SCH (20:41)
[2020-07-24] MEDS: MULTIVITAMINS,THERAPEUTIC TABLET GT SCH (20:41)
[2020-07-25] MEDS: POLYVINYL ALCOHOL OPHT DROPS 15 ML BOTTLE EACHEYE SCH ×2 (05:34→18:08)
[2020-07-25] MEDS: OMEPRAZOLE 40 MG CAPSULE GT SCH (05:34)
[2020-07-25 06:06] LABS: BASOPHILS % (AUTO) 0.8 % (0.0-2.0); EOSINOPHILS # (AUTO) 0.2 K/uL (0.0-0.7); EOSINOPHILS % (AUTO) 5.1 % (0.0-7.0); HEMATOCRIT 27.7 % (31.2-41.9); HEMOGLOBIN 9.6 g/dL (10.9-14.3); LYMPHOCYTES # (AUTO) 1.1 K/uL (20.0-40.0); LYMPHOCYTES % (AUTO) 33.2 % (20.5-51.5); MEAN CORPUSCULAR HEMOGLOBIN 30.8 uug (24.7-32.8); MEAN CORPUSCULAR HGB CONC 35 g/dL (32.3-35.6); MEAN CORPUSCULAR VOLUME 88.8 fL (75.5-95.3); MONOCYTES # (AUTO) 0.3 K/uL (2.0-10.0); MONOCYTES % (AUTO) 8.1 % (0.0-11.0); NEUTROPHILS # (AUTO) 1.7 K/uL (1.8-8.9); NEUTROPHILS % (AUTO) 52.8 % (38.5-71.5); PLATELET COUNT (AUTO) 158 K/uL (179-408); RED BLOOD CELL COUNT(AUTO) 3.12 MIL/uL (3.63-4.92); WHITE BLOOD COUNT (AUTO) 3.3 K/uL (3.8-11.8)
[2020-07-25 06:11] LABS: BILIRUBIN,TOTAL 0.2 mg/dL (0.2-1.0); CREATININE 0.6 mg/dL (0.6-1.3); POTASSIUM 3.7 mmol/L (3.5-5.1); TOTAL PROTEIN, SERUM 7.6 g/dL (6.4-8.2)
[2020-07-25 07:44] VITALS: BP 96/63
[2020-07-25] MEDS: HYDROGEN PEROXIDE 3% 118 ML BOTTLE TP SCH ×2 (08:35→21:40)
[2020-07-25] MEDS: AMIODARONE HCL 200 MG TABLET GT SCH (09:00)
[2020-07-25] MEDS: Z GUARD REMEDY PASTE 57 GM TUBE TOP SCH ×2 (09:00→21:02)
[2020-07-25] MEDS: ASPIRIN 81 MG TAB.CHEW GT SCH (09:00)
[2020-07-25] MEDS: COD LIVER OIL/ZINC OXIDE OINT 113 GM TUBE TP SCH ×4 (09:00→21:02)
[2020-07-25] MEDS: DIAZEPAM 5 MG TABLET GT SCH ×2 (09:00→21:02)
[2020-07-25] MEDS: levETIRAcetam 500 MG/5 ML LIQUID UDC GT SCH ×2 (09:00→21:01)
[2020-07-25] MEDS: PROTEIN SUPPLEMENT (PROSTAT) 30 ML LIQUID GT SCH ×2 (09:00→21:01)
[2020-07-25] MEDS: PHENOBARBITAL 30 MG/7.5 ML LIQUID UDC GT SCH ×2 (09:00→21:01)
[2020-07-25] MEDS: METOPROLOL TARTRATE 25 MG TABLET GT SCH ×2 (09:00→21:01)
[2020-07-25] MEDS: ASCORBIC ACID 500 MG TABLET GT SCH ×2 (09:00→21:02)
--- NOTE | 2020-07-25 13:39 | NUR ---
SEEN BY FLASH Mclaughlin AND WITH NNO.
[2020-07-25 20:00] VITALS: BP 131/83
[2020-07-25] MEDS: MAGNESIUM OXIDE 400 MG TABLET GT SCH (21:01)
[2020-07-25] MEDS: MULTIVITAMINS,THERAPEUTIC TABLET GT SCH (21:02)
[2020-07-26] MEDS: POLYVINYL ALCOHOL OPHT DROPS 15 ML BOTTLE EACHEYE SCH ×2 (05:13→17:05)
[2020-07-26] MEDS: OMEPRAZOLE 40 MG CAPSULE GT SCH (05:13)
[2020-07-26 07:26] VITALS: BP 109/73
[2020-07-26] MEDS: ASPIRIN 81 MG TAB.CHEW GT SCH (08:31)
[2020-07-26] MEDS: levETIRAcetam 500 MG/5 ML LIQUID UDC GT SCH ×2 (08:32→21:51)
[2020-07-26] MEDS: AMIODARONE HCL 200 MG TABLET GT SCH (08:32)
[2020-07-26] MEDS: PHENOBARBITAL 30 MG/7.5 ML LIQUID UDC GT SCH ×2 (08:33→21:51)
[2020-07-26] MEDS: METOPROLOL TARTRATE 25 MG TABLET GT SCH ×2 (08:33→21:51)
[2020-07-26] MEDS: Z GUARD REMEDY PASTE 57 GM TUBE TOP SCH ×2 (08:34→21:51)
[2020-07-26] MEDS: COD LIVER OIL/ZINC OXIDE OINT 113 GM TUBE TP SCH ×4 (08:34→21:52)
[2020-07-26] MEDS: DIAZEPAM 5 MG TABLET GT SCH ×2 (08:34→21:51)
[2020-07-26] MEDS: PROTEIN SUPPLEMENT (PROSTAT) 30 ML LIQUID GT SCH ×2 (08:34→21:51)
[2020-07-26] MEDS: ASCORBIC ACID 500 MG TABLET GT SCH ×2 (08:34→21:51)
[2020-07-26] MEDS: HYDROGEN PEROXIDE 3% 118 ML BOTTLE TP SCH ×2 (09:00→21:06)
[2020-07-26] MEDS: VITAL AF 1.2 1,000 ML LIQUID GT PRN (14:07)
--- NOTE | 2020-07-26 14:25 | NUR ---
Seen and examined by Layne Carrillo,no new orders.
--- NOTE | 2020-07-26 19:00 | NUR ---
No new orders to D/C isolation for c difficile ,no LBM x 48 hours,dc isolation for ESBL in urine and blood.
[2020-07-26 19:53] VITALS: BP 116/76
[2020-07-26] MEDS: MAGNESIUM OXIDE 400 MG TABLET GT SCH (21:51)
[2020-07-26] MEDS: MULTIVITAMINS,THERAPEUTIC TABLET GT SCH (21:51)
[2020-07-27] MEDS: POLYVINYL ALCOHOL OPHT DROPS 15 ML BOTTLE EACHEYE SCH ×2 (05:41→18:00)
[2020-07-27] MEDS: OMEPRAZOLE 40 MG CAPSULE GT SCH (05:41)
[2020-07-27 07:30] VITALS: BP 127/72
[2020-07-27] MEDS: ASPIRIN 81 MG TAB.CHEW GT SCH (08:20)
[2020-07-27] MEDS: levETIRAcetam 500 MG/5 ML LIQUID UDC GT SCH ×2 (08:21→21:14)
[2020-07-27] MEDS: AMIODARONE HCL 200 MG TABLET GT SCH (08:21)
[2020-07-27] MEDS: DIAZEPAM 5 MG TABLET GT SCH ×2 (08:22→21:15)
[2020-07-27] MEDS: PHENOBARBITAL 30 MG/7.5 ML LIQUID UDC GT SCH ×2 (08:22→21:15)
[2020-07-27] MEDS: ASCORBIC ACID 500 MG TABLET GT SCH ×2 (08:22→21:15)
[2020-07-27] MEDS: METOPROLOL TARTRATE 25 MG TABLET GT SCH ×2 (08:22→21:17)
[2020-07-27] MEDS: COD LIVER OIL/ZINC OXIDE OINT 113 GM TUBE TP SCH ×4 (08:23→21:15)
[2020-07-27] MEDS: Z GUARD REMEDY PASTE 57 GM TUBE TOP SCH ×2 (08:23→21:15)
[2020-07-27] MEDS: PROTEIN SUPPLEMENT (PROSTAT) 30 ML LIQUID GT SCH ×2 (09:00→21:15)
[2020-07-27] MEDS: HYDROGEN PEROXIDE 3% 118 ML BOTTLE TP SCH ×2 (09:48→21:40)
[2020-07-27] MEDS: MAGNESIUM OXIDE 400 MG TABLET GT SCH (21:15)
[2020-07-27] MEDS: MULTIVITAMINS,THERAPEUTIC TABLET GT SCH (21:15)
[2020-07-27 22:42] VITALS: BP 143/82
[2020-07-28] MEDS: VITAL AF 1.2 1,000 ML LIQUID GT PRN (03:07)
[2020-07-28] MEDS: OMEPRAZOLE 40 MG CAPSULE GT SCH (05:11)
[2020-07-28] MEDS: POLYVINYL ALCOHOL OPHT DROPS 15 ML BOTTLE EACHEYE SCH ×2 (06:10→18:57)
[2020-07-28 07:21] VITALS: BP 104/65
[2020-07-28] MEDS: HYDROGEN PEROXIDE 3% 118 ML BOTTLE TP SCH ×2 (07:55→21:00)
[2020-07-28] MEDS: ASPIRIN 81 MG TAB.CHEW GT SCH (08:37)
[2020-07-28] MEDS: levETIRAcetam 500 MG/5 ML LIQUID UDC GT SCH ×2 (08:38→21:59)
[2020-07-28] MEDS: AMIODARONE HCL 200 MG TABLET GT SCH (08:38)
[2020-07-28] MEDS: DIAZEPAM 5 MG TABLET GT SCH ×2 (08:40→21:59)
[2020-07-28] MEDS: METOPROLOL TARTRATE 25 MG TABLET GT SCH ×2 (08:40→21:59)
[2020-07-28] MEDS: PHENOBARBITAL 30 MG/7.5 ML LIQUID UDC GT SCH ×2 (08:40→21:59)
[2020-07-28] MEDS: COD LIVER OIL/ZINC OXIDE OINT 113 GM TUBE TP SCH ×4 (08:40→21:00)
[2020-07-28] MEDS: PROTEIN SUPPLEMENT (PROSTAT) 30 ML LIQUID GT SCH ×2 (08:40→21:59)
[2020-07-28] MEDS: ASCORBIC ACID 500 MG TABLET GT SCH ×2 (08:40→21:59)
[2020-07-28] MEDS: Z GUARD REMEDY PASTE 57 GM TUBE TOP SCH ×2 (08:40→22:00)
[2020-07-28 19:37] VITALS: BP 111/71
[2020-07-28] MEDS: MAGNESIUM OXIDE 400 MG TABLET GT SCH (21:59)
[2020-07-28] MEDS: MULTIVITAMINS,THERAPEUTIC TABLET GT SCH (21:59)
[2020-07-29] MEDS: VITAL AF 1.2 1,000 ML LIQUID GT PRN (01:51)
[2020-07-29] MEDS: POLYVINYL ALCOHOL OPHT DROPS 15 ML BOTTLE EACHEYE SCH ×2 (05:17→18:00)
[2020-07-29] MEDS: OMEPRAZOLE 40 MG CAPSULE GT SCH (05:17)
[2020-07-29] MEDS: HYDROGEN PEROXIDE 3% 118 ML BOTTLE TP SCH ×2 (07:18→21:23)
[2020-07-29 07:27] VITALS: BP 100/64
[2020-07-29] MEDS: ASPIRIN 81 MG TAB.CHEW GT SCH (08:12)
[2020-07-29] MEDS: AMIODARONE HCL 200 MG TABLET GT SCH (08:13)
[2020-07-29] MEDS: levETIRAcetam 500 MG/5 ML LIQUID UDC GT SCH ×2 (08:13→21:11)
[2020-07-29] MEDS: ASCORBIC ACID 500 MG TABLET GT SCH ×2 (08:14→21:12)
[2020-07-29] MEDS: PROTEIN SUPPLEMENT (PROSTAT) 30 ML LIQUID GT SCH ×2 (08:14→21:12)
[2020-07-29] MEDS: PHENOBARBITAL 30 MG/7.5 ML LIQUID UDC GT SCH ×2 (08:14→21:12)
[2020-07-29] MEDS: METOPROLOL TARTRATE 25 MG TABLET GT SCH ×2 (08:14→21:12)
[2020-07-29] MEDS: DIAZEPAM 5 MG TABLET GT SCH ×2 (08:14→21:12)
[2020-07-29] MEDS: COD LIVER OIL/ZINC OXIDE OINT 113 GM TUBE TP SCH ×4 (08:14→21:12)
[2020-07-29] MEDS: Z GUARD REMEDY PASTE 57 GM TUBE TOP SCH ×2 (08:14→21:12)
[2020-07-29] MEDS: MULTIVITAMINS,THERAPEUTIC TABLET GT SCH (21:12)
[2020-07-29] MEDS: MAGNESIUM OXIDE 400 MG TABLET GT SCH (21:12)
[2020-07-29 22:12] VITALS: BP 144/86
[2020-07-30] MEDS: VITAL AF 1.2 1,000 ML LIQUID GT PRN (05:18)
[2020-07-30] MEDS: POLYVINYL ALCOHOL OPHT DROPS 15 ML BOTTLE EACHEYE SCH ×2 (05:18→17:54)
[2020-07-30] MEDS: OMEPRAZOLE 40 MG CAPSULE GT SCH (05:18)
[2020-07-30] MEDS: HYDROGEN PEROXIDE 3% 118 ML BOTTLE TP SCH ×2 (07:51→21:00)
[2020-07-30] MEDS: ASPIRIN 81 MG TAB.CHEW GT SCH (08:35)
[2020-07-30] MEDS: levETIRAcetam 500 MG/5 ML LIQUID UDC GT SCH ×2 (08:36→21:09)
[2020-07-30] MEDS: DIAZEPAM 5 MG TABLET GT SCH ×2 (08:37→21:12)
[2020-07-30] MEDS: PHENOBARBITAL 30 MG/7.5 ML LIQUID UDC GT SCH ×2 (08:37→21:11)
[2020-07-30] MEDS: Z GUARD REMEDY PASTE 57 GM TUBE TOP SCH ×2 (08:37→21:12)
[2020-07-30] MEDS: ASCORBIC ACID 500 MG TABLET GT SCH ×2 (08:37→21:12)
[2020-07-30] MEDS: PROTEIN SUPPLEMENT (PROSTAT) 30 ML LIQUID GT SCH ×2 (08:37→21:11)
[2020-07-30] MEDS: AMIODARONE HCL 200 MG TABLET GT SCH (08:38)
[2020-07-30] MEDS: METOPROLOL TARTRATE 25 MG TABLET GT SCH ×2 (08:38→21:10)
[2020-07-30 08:39] VITALS: BP 156/92
[2020-07-30] MEDS: COD LIVER OIL/ZINC OXIDE OINT 113 GM TUBE TP SCH ×4 (09:00→21:12)
[2020-07-30] MEDS: MAGNESIUM OXIDE 400 MG TABLET GT SCH (21:11)
[2020-07-30] MEDS: MULTIVITAMINS,THERAPEUTIC TABLET GT SCH (21:11)
[2020-07-30 22:05] VITALS: BP 123/84
[2020-07-31] MEDS: POLYVINYL ALCOHOL OPHT DROPS 15 ML BOTTLE EACHEYE SCH ×2 (05:09→18:09)
[2020-07-31] MEDS: OMEPRAZOLE 40 MG CAPSULE GT SCH (05:19)
[2020-07-31] MEDS: VITAL AF 1.2 1,000 ML LIQUID GT PRN (05:19)
[2020-07-31 07:23] VITALS: BP 120/61
[2020-07-31] MEDS: HYDROGEN PEROXIDE 3% 118 ML BOTTLE TP SCH ×2 (07:30→19:43)
[2020-07-31] MEDS: ASCORBIC ACID 500 MG TABLET GT SCH ×2 (08:54→21:48)
[2020-07-31] MEDS: PHENOBARBITAL 30 MG/7.5 ML LIQUID UDC GT SCH ×2 (08:54→21:48)
[2020-07-31] MEDS: AMIODARONE HCL 200 MG TABLET GT SCH (08:54)
[2020-07-31] MEDS: Z GUARD REMEDY PASTE 57 GM TUBE TOP SCH ×2 (08:54→21:48)
[2020-07-31] MEDS: levETIRAcetam 500 MG/5 ML LIQUID UDC GT SCH ×2 (08:54→21:48)
[2020-07-31] MEDS: PROTEIN SUPPLEMENT (PROSTAT) 30 ML LIQUID GT SCH ×2 (08:54→21:48)
[2020-07-31] MEDS: ASPIRIN 81 MG TAB.CHEW GT SCH (08:54)
[2020-07-31] MEDS: DIAZEPAM 5 MG TABLET GT SCH ×2 (08:54→21:48)
[2020-07-31] MEDS: COD LIVER OIL/ZINC OXIDE OINT 113 GM TUBE TP SCH ×4 (08:54→21:49)
[2020-07-31] MEDS: METOPROLOL TARTRATE 25 MG TABLET GT SCH ×2 (08:54→21:48)
--- NOTE | 2020-07-31 19:43 | NUR ---
Covid results negatve,,family wants to be call only when if results are negative.
[2020-07-31] MEDS: MAGNESIUM OXIDE 400 MG TABLET GT SCH (21:48)
[2020-07-31] MEDS: MULTIVITAMINS,THERAPEUTIC TABLET GT SCH (21:48)
[2020-07-31 23:22] VITALS: BP 121/70
[2020-08-01] MEDS: VITAL AF 1.2 1,000 ML LIQUID GT PRN (02:32)
[2020-08-01] MEDS: OMEPRAZOLE 40 MG CAPSULE GT SCH (06:20)
[2020-08-01] MEDS: POLYVINYL ALCOHOL OPHT DROPS 15 ML BOTTLE EACHEYE SCH ×2 (06:20→17:47)
[2020-08-01 07:48] VITALS: BP 128/78
[2020-08-01] MEDS: ASPIRIN 81 MG TAB.CHEW GT SCH (09:04)
[2020-08-01] MEDS: AMIODARONE HCL 200 MG TABLET GT SCH (09:09)
[2020-08-01] MEDS: METOPROLOL TARTRATE 25 MG TABLET GT SCH ×2 (09:09→20:19)
[2020-08-01] MEDS: levETIRAcetam 500 MG/5 ML LIQUID UDC GT SCH ×2 (09:09→20:19)
[2020-08-01] MEDS: PHENOBARBITAL 30 MG/7.5 ML LIQUID UDC GT SCH ×2 (09:09→20:19)
[2020-08-01] MEDS: PROTEIN SUPPLEMENT (PROSTAT) 30 ML LIQUID GT SCH ×2 (09:10→20:19)
[2020-08-01] MEDS: Z GUARD REMEDY PASTE 57 GM TUBE TOP SCH ×2 (09:10→20:20)
[2020-08-01] MEDS: DIAZEPAM 5 MG TABLET GT SCH ×2 (09:10→20:19)
[2020-08-01] MEDS: COD LIVER OIL/ZINC OXIDE OINT 113 GM TUBE TP SCH ×4 (09:10→20:20)
[2020-08-01] MEDS: ASCORBIC ACID 500 MG TABLET GT SCH ×2 (09:10→20:19)
[2020-08-01] MEDS: HYDROGEN PEROXIDE 3% 118 ML BOTTLE TP SCH ×2 (09:14→21:29)
[2020-08-01 19:53] VITALS: BP 152/77
[2020-08-01] MEDS: MULTIVITAMINS,THERAPEUTIC TABLET GT SCH (20:19)
[2020-08-01] MEDS: MAGNESIUM OXIDE 400 MG TABLET GT SCH (20:19)
[2020-08-02] MEDS: POLYVINYL ALCOHOL OPHT DROPS 15 ML BOTTLE EACHEYE SCH ×2 (05:38→17:20)
[2020-08-02] MEDS: VITAL AF 1.2 1,000 ML LIQUID GT PRN ×2 (05:39→23:00)
[2020-08-02] MEDS: OMEPRAZOLE 40 MG CAPSULE GT SCH (05:39)
[2020-08-02 07:50] VITALS: BP 96/60
[2020-08-02] MEDS: HYDROGEN PEROXIDE 3% 118 ML BOTTLE TP SCH ×2 (07:56→21:00)
[2020-08-02] MEDS: METOPROLOL TARTRATE 25 MG TABLET GT SCH ×2 (09:00→21:54)
[2020-08-02] MEDS: ASPIRIN 81 MG TAB.CHEW GT SCH (09:23)
[2020-08-02] MEDS: AMIODARONE HCL 200 MG TABLET GT SCH (09:23)
[2020-08-02] MEDS: levETIRAcetam 500 MG/5 ML LIQUID UDC GT SCH ×2 (09:23→21:53)
[2020-08-02] MEDS: DIAZEPAM 5 MG TABLET GT SCH ×2 (09:24→21:57)
[2020-08-02] MEDS: PHENOBARBITAL 30 MG/7.5 ML LIQUID UDC GT SCH ×2 (09:24→21:55)
[2020-08-02] MEDS: Z GUARD REMEDY PASTE 57 GM TUBE TOP SCH ×2 (09:24→21:57)
[2020-08-02] MEDS: COD LIVER OIL/ZINC OXIDE OINT 113 GM TUBE TP SCH ×4 (09:24→21:58)
[2020-08-02] MEDS: ASCORBIC ACID 500 MG TABLET GT SCH ×2 (09:24→21:57)
[2020-08-02] MEDS: PROTEIN SUPPLEMENT (PROSTAT) 30 ML LIQUID GT SCH ×2 (09:24→21:56)
--- NOTE | 2020-08-02 13:00 | NUR ---
Seen and examined by Layne Carrillo,no new orders noted.
--- NOTE | 2020-08-02 16:35 | NUR ---
INTERDISCIPLINARY PLAN OF CARE CONFERENCE was held today. Patient's family was not available to participate in the IDT meeting, as they are minimally involved in patient's care. Dr. Lora and the Interdisciplinary Team reviewed the current plan of care in detail. Nursing reported on patient's medical condition, findings of recent labs, and stated that patient's isolation status has been discontinued. See nursing IDT conference notes. No major changes in medical condition were reported by nursing or by the other disciplines. See all other disciplines IDT notes and physician's progress notes for additional details.
[2020-08-02 19:58] VITALS: BP 151/88
[2020-08-02] MEDS: MAGNESIUM OXIDE 400 MG TABLET GT SCH (21:54)
[2020-08-02] MEDS: MULTIVITAMINS,THERAPEUTIC TABLET GT SCH (21:57)
[2020-08-03] MEDS: OMEPRAZOLE 40 MG CAPSULE GT SCH (05:40)
[2020-08-03] MEDS: POLYVINYL ALCOHOL OPHT DROPS 15 ML BOTTLE EACHEYE SCH ×2 (05:40→17:43)
[2020-08-03 07:38] VITALS: BP 119/76
[2020-08-03 07:45] VITALS: BP 119/76
[2020-08-03] MEDS: ASPIRIN 81 MG TAB.CHEW GT SCH (09:50)
[2020-08-03] MEDS: HYDROGEN PEROXIDE 3% 118 ML BOTTLE TP SCH ×2 (09:50→21:39)
[2020-08-03] MEDS: AMIODARONE HCL 200 MG TABLET GT SCH (09:50)
[2020-08-03] MEDS: levETIRAcetam 500 MG/5 ML LIQUID UDC GT SCH ×2 (09:50→21:21)
[2020-08-03] MEDS: METOPROLOL TARTRATE 25 MG TABLET GT SCH ×2 (09:51→21:27)
[2020-08-03] MEDS: DIAZEPAM 5 MG TABLET GT SCH ×2 (09:51→21:28)
[2020-08-03] MEDS: ASCORBIC ACID 500 MG TABLET GT SCH ×2 (09:51→21:28)
[2020-08-03] MEDS: PHENOBARBITAL 30 MG/7.5 ML LIQUID UDC GT SCH ×2 (09:51→21:27)
[2020-08-03] MEDS: Z GUARD REMEDY PASTE 57 GM TUBE TOP SCH ×2 (09:52→21:28)
[2020-08-03] MEDS: COD LIVER OIL/ZINC OXIDE OINT 113 GM TUBE TP SCH ×4 (09:52→21:28)
[2020-08-03] MEDS: PROTEIN SUPPLEMENT (PROSTAT) 30 ML LIQUID GT SCH ×2 (09:53→21:27)
[2020-08-03 20:00] VITALS: BP 129/76
[2020-08-03] MEDS: MAGNESIUM OXIDE 400 MG TABLET GT SCH (21:27)
[2020-08-03] MEDS: MULTIVITAMINS,THERAPEUTIC TABLET GT SCH (21:28)
[2020-08-03] MEDS: VITAL AF 1.2 1,000 ML LIQUID GT PRN (21:30)
[2020-08-04] MEDS: OMEPRAZOLE 40 MG CAPSULE GT SCH (06:07)
[2020-08-04] MEDS: POLYVINYL ALCOHOL OPHT DROPS 15 ML BOTTLE EACHEYE SCH ×2 (06:07→17:07)
[2020-08-04 07:56] VITALS: BP 116/60
[2020-08-04] MEDS: ASPIRIN 81 MG TAB.CHEW GT SCH (08:48)
[2020-08-04] MEDS: AMIODARONE HCL 200 MG TABLET GT SCH (08:48)
[2020-08-04] MEDS: levETIRAcetam 500 MG/5 ML LIQUID UDC GT SCH ×2 (08:49→20:52)
[2020-08-04] MEDS: PROTEIN SUPPLEMENT (PROSTAT) 30 ML LIQUID GT SCH ×2 (08:52→20:52)
[2020-08-04] MEDS: COD LIVER OIL/ZINC OXIDE OINT 113 GM TUBE TP SCH ×4 (08:52→20:53)
[2020-08-04] MEDS: DIAZEPAM 5 MG TABLET GT SCH ×2 (08:52→20:52)
[2020-08-04] MEDS: METOPROLOL TARTRATE 25 MG TABLET GT SCH ×2 (08:52→20:52)
[2020-08-04] MEDS: PHENOBARBITAL 30 MG/7.5 ML LIQUID UDC GT SCH ×2 (08:52→20:52)
[2020-08-04] MEDS: Z GUARD REMEDY PASTE 57 GM TUBE TOP SCH ×2 (08:52→20:52)
[2020-08-04] MEDS: ASCORBIC ACID 500 MG TABLET GT SCH ×2 (08:52→20:52)
[2020-08-04] MEDS: HYDROGEN PEROXIDE 3% 118 ML BOTTLE TP SCH ×2 (09:50→21:07)
[2020-08-04] MEDS: VITAL AF 1.2 1,000 ML LIQUID GT PRN (15:19)
[2020-08-04 20:14] VITALS: BP 150/95
[2020-08-04] MEDS: MULTIVITAMINS,THERAPEUTIC TABLET GT SCH (20:52)
[2020-08-04] MEDS: MAGNESIUM OXIDE 400 MG TABLET GT SCH (20:52)
[2020-08-05] MEDS: POLYVINYL ALCOHOL OPHT DROPS 15 ML BOTTLE EACHEYE SCH ×2 (06:07→17:54)
[2020-08-05] MEDS: OMEPRAZOLE 40 MG CAPSULE GT SCH (06:07)
[2020-08-05 08:22] VITALS: BP 101/71
[2020-08-05] MEDS: METOPROLOL TARTRATE 25 MG TABLET GT SCH ×2 (09:00→20:40)
[2020-08-05] MEDS: HYDROGEN PEROXIDE 3% 118 ML BOTTLE TP SCH ×2 (09:01→21:59)
[2020-08-05] MEDS: ASPIRIN 81 MG TAB.CHEW GT SCH (09:45)
[2020-08-05] MEDS: levETIRAcetam 500 MG/5 ML LIQUID UDC GT SCH ×2 (09:46→20:39)
[2020-08-05] MEDS: AMIODARONE HCL 200 MG TABLET GT SCH (09:46)
[2020-08-05] MEDS: PROTEIN SUPPLEMENT (PROSTAT) 30 ML LIQUID GT SCH ×2 (09:47→21:17)
[2020-08-05] MEDS: DIAZEPAM 5 MG TABLET GT SCH ×2 (09:47→20:40)
[2020-08-05] MEDS: ASCORBIC ACID 500 MG TABLET GT SCH ×2 (09:47→20:40)
[2020-08-05] MEDS: PHENOBARBITAL 30 MG/7.5 ML LIQUID UDC GT SCH ×2 (09:47→20:40)
[2020-08-05] MEDS: COD LIVER OIL/ZINC OXIDE OINT 113 GM TUBE TP SCH ×4 (09:48→20:41)
[2020-08-05] MEDS: Z GUARD REMEDY PASTE 57 GM TUBE TOP SCH ×2 (09:48→20:41)
[2020-08-05] MEDS: VITAL AF 1.2 1,000 ML LIQUID GT PRN (13:15)
[2020-08-05 19:15] VITALS: BP 117/76
[2020-08-05] MEDS: MULTIVITAMINS,THERAPEUTIC TABLET GT SCH (20:40)
[2020-08-05] MEDS: MAGNESIUM OXIDE 400 MG TABLET GT SCH (20:40)
[2020-08-06] MEDS: POLYVINYL ALCOHOL OPHT DROPS 15 ML BOTTLE EACHEYE SCH ×2 (05:12→17:02)
[2020-08-06] MEDS: OMEPRAZOLE 40 MG CAPSULE GT SCH (05:12)
[2020-08-06] MEDS: HYDROGEN PEROXIDE 3% 118 ML BOTTLE TP SCH ×2 (07:42→21:13)
[2020-08-06 07:46] VITALS: BP 111/72
[2020-08-06] MEDS: AMIODARONE HCL 200 MG TABLET GT SCH (08:43)
[2020-08-06] MEDS: PHENOBARBITAL 30 MG/7.5 ML LIQUID UDC GT SCH ×2 (08:43→20:15)
[2020-08-06] MEDS: levETIRAcetam 500 MG/5 ML LIQUID UDC GT SCH ×2 (08:43→20:14)
[2020-08-06] MEDS: ASPIRIN 81 MG TAB.CHEW GT SCH (08:43)
[2020-08-06] MEDS: METOPROLOL TARTRATE 25 MG TABLET GT SCH ×2 (08:43→20:14)
[2020-08-06] MEDS: PROTEIN SUPPLEMENT (PROSTAT) 30 ML LIQUID GT SCH ×2 (08:44→20:15)
[2020-08-06] MEDS: ASCORBIC ACID 500 MG TABLET GT SCH ×2 (08:44→20:15)
[2020-08-06] MEDS: DIAZEPAM 5 MG TABLET GT SCH ×2 (08:44→20:15)
[2020-08-06] MEDS: Z GUARD REMEDY PASTE 57 GM TUBE TOP SCH ×2 (08:45→20:15)
[2020-08-06] MEDS: COD LIVER OIL/ZINC OXIDE OINT 113 GM TUBE TP SCH ×4 (08:45→20:15)
--- NOTE | 2020-08-06 16:16 | NUR ---
PT'S FATHER CALLED SEVERAL TIMES BUT NOT ANSWERING.FELICITA (SISTER IN LAW) WAS CALLED AND SHE IT'S OK WITH THE COVID 19 VACCINE ADMINISTRATION BUT CH. NURSE ASKED HER TO PLS TELL CARMEN (PT'S BROTHER)TO CALL TO THE UNIT INSTEAD AND SHE SAID THAT SHE WILL TELL HIM BUT ALSO STATED THAT SHE IS NOT SURE IF HE WILL CALL BACK AND STATED THAT "PT'S FAMILY DYNAMIC IS WEIRD" BUT SHE WILL TELL HIM.
[2020-08-06 20:00] VITALS: BP 142/91
[2020-08-06] MEDS: MULTIVITAMINS,THERAPEUTIC TABLET GT SCH (20:15)
[2020-08-06] MEDS: MAGNESIUM OXIDE 400 MG TABLET GT SCH (20:15)
[2020-08-07] MEDS: VITAL AF 1.2 1,000 ML LIQUID GT PRN ×2 (01:53→23:26)
--- NOTE | 2020-08-07 02:35 | NUR ---
Julián from the Lab called RE: Patient's covid 19 result is negative.
[2020-08-07] MEDS: OMEPRAZOLE 40 MG CAPSULE GT SCH (05:51)
[2020-08-07] MEDS: POLYVINYL ALCOHOL OPHT DROPS 15 ML BOTTLE EACHEYE SCH ×2 (05:51→17:09)
[2020-08-07 07:54] VITALS: BP 130/79
[2020-08-07] MEDS: ASPIRIN 81 MG TAB.CHEW GT SCH (08:05)
[2020-08-07] MEDS: ASCORBIC ACID 500 MG TABLET GT SCH ×2 (08:06→20:14)
[2020-08-07] MEDS: COD LIVER OIL/ZINC OXIDE OINT 113 GM TUBE TP SCH ×4 (08:06→20:14)
[2020-08-07] MEDS: PROTEIN SUPPLEMENT (PROSTAT) 30 ML LIQUID GT SCH ×2 (08:06→20:14)
[2020-08-07] MEDS: METOPROLOL TARTRATE 25 MG TABLET GT SCH ×2 (08:06→20:14)
[2020-08-07] MEDS: PHENOBARBITAL 30 MG/7.5 ML LIQUID UDC GT SCH ×2 (08:06→20:14)
[2020-08-07] MEDS: DIAZEPAM 5 MG TABLET GT SCH ×2 (08:06→20:14)
[2020-08-07] MEDS: levETIRAcetam 500 MG/5 ML LIQUID UDC GT SCH ×2 (08:06→20:14)
[2020-08-07] MEDS: Z GUARD REMEDY PASTE 57 GM TUBE TOP SCH ×2 (08:06→20:14)
[2020-08-07] MEDS: AMIODARONE HCL 200 MG TABLET GT SCH (08:06)
[2020-08-07] MEDS: HYDROGEN PEROXIDE 3% 118 ML BOTTLE TP SCH ×2 (09:23→20:43)
--- NOTE | 2020-08-07 12:08 | NUR ---
PT'S SISTER IN LAW FELICITA WAS CALLED AND AWARE THAT PT.IS NEGATIVE FOR COVID19 TEST FROM 08/04/20 AND SHE STATED THAT MOST LIKELY PT'S BROTHER CARMEN IS NOT GOING TO CALL BACK RE:CONSENT FOR COVID19 VACCINE.
[2020-08-07] MEDS: MULTIVITAMINS,THERAPEUTIC TABLET GT SCH (20:14)
[2020-08-07] MEDS: MAGNESIUM OXIDE 400 MG TABLET GT SCH (20:14)
[2020-08-07 20:44] VITALS: BP 112/73
[2020-08-08] MEDS: OMEPRAZOLE 40 MG CAPSULE GT SCH (05:11)
[2020-08-08] MEDS: POLYVINYL ALCOHOL OPHT DROPS 15 ML BOTTLE EACHEYE SCH ×2 (05:11→18:10)
[2020-08-08] MEDS: HYDROGEN PEROXIDE 3% 118 ML BOTTLE TP SCH ×2 (07:40→21:53)
[2020-08-08 07:48] VITALS: BP 69/64
[2020-08-08] MEDS: ASPIRIN 81 MG TAB.CHEW GT SCH (08:15)
[2020-08-08] MEDS: AMIODARONE HCL 200 MG TABLET GT SCH (08:16)
[2020-08-08] MEDS: levETIRAcetam 500 MG/5 ML LIQUID UDC GT SCH ×2 (08:17→20:28)
[2020-08-08] MEDS: PHENOBARBITAL 30 MG/7.5 ML LIQUID UDC GT SCH ×2 (08:18→20:28)
[2020-08-08] MEDS: METOPROLOL TARTRATE 25 MG TABLET GT SCH ×2 (08:18→21:00)
[2020-08-08] MEDS: PROTEIN SUPPLEMENT (PROSTAT) 30 ML LIQUID GT SCH ×2 (08:18→20:28)
[2020-08-08] MEDS: DIAZEPAM 5 MG TABLET GT SCH ×2 (08:18→20:30)
[2020-08-08] MEDS: ASCORBIC ACID 500 MG TABLET GT SCH ×2 (08:18→20:30)
[2020-08-08] MEDS: COD LIVER OIL/ZINC OXIDE OINT 113 GM TUBE TP SCH ×4 (08:19→20:32)
[2020-08-08] MEDS: Z GUARD REMEDY PASTE 57 GM TUBE TOP SCH ×2 (08:19→20:32)
--- NOTE | 2020-08-08 12:57 | NUR ---
SEEN AND EXAMINED BY FLASH Mclaughlin AND WITH THERESEO.
--- NOTE | 2020-08-08 17:54 | NUR ---
LEFT GREAT TOE INFECTION WITH LOCAL TX FROM DR. CURRY ,PICTURE TAKEN .
[2020-08-08] MEDS: VITAL AF 1.2 1,000 ML LIQUID GT PRN (18:18)
[2020-08-08] MEDS: MULTIVITAMINS,THERAPEUTIC TABLET GT SCH (20:28)
[2020-08-08] MEDS: MAGNESIUM OXIDE 400 MG TABLET GT SCH (20:28)
[2020-08-08] MEDS: NEOMY/BACITRA/POLYMYXIN B OINT UD PACKET TP SCH (20:35)
[2020-08-08 20:43] VITALS: BP 117/70
[2020-08-09] MEDS: OMEPRAZOLE 40 MG CAPSULE GT SCH (05:10)
[2020-08-09] MEDS: POLYVINYL ALCOHOL OPHT DROPS 15 ML BOTTLE EACHEYE SCH ×2 (05:10→18:13)
[2020-08-09] MEDS: HYDROGEN PEROXIDE 3% 118 ML BOTTLE TP SCH ×2 (07:32→21:40)
[2020-08-09 07:49] VITALS: BP 101/68
[2020-08-09] MEDS: PROTEIN SUPPLEMENT (PROSTAT) 30 ML LIQUID GT SCH ×2 (08:25→20:22)
[2020-08-09] MEDS: levETIRAcetam 500 MG/5 ML LIQUID UDC GT SCH ×2 (08:25→20:18)
[2020-08-09] MEDS: AMIODARONE HCL 200 MG TABLET GT SCH (08:25)
[2020-08-09] MEDS: METOPROLOL TARTRATE 25 MG TABLET GT SCH ×2 (08:25→20:22)
[2020-08-09] MEDS: DIAZEPAM 5 MG TABLET GT SCH ×2 (08:25→20:24)
[2020-08-09] MEDS: PHENOBARBITAL 30 MG/7.5 ML LIQUID UDC GT SCH ×2 (08:25→20:22)
[2020-08-09] MEDS: ASPIRIN 81 MG TAB.CHEW GT SCH (08:25)
[2020-08-09] MEDS: Z GUARD REMEDY PASTE 57 GM TUBE TOP SCH ×2 (08:26→20:24)
[2020-08-09] MEDS: COD LIVER OIL/ZINC OXIDE OINT 113 GM TUBE TP SCH ×4 (08:26→20:37)
[2020-08-09] MEDS: NEOMY/BACITRA/POLYMYXIN B OINT UD PACKET TP SCH ×2 (08:26→20:25)
[2020-08-09] MEDS: ASCORBIC ACID 500 MG TABLET GT SCH ×2 (08:26→20:24)
--- NOTE | 2020-08-09 15:07 | NUR ---
Telephone consent obtained From Dr Lora for Covid 19 vaccine administration.
--- NOTE | 2020-08-09 15:13 | NUR ---
Telephone consent obtained From Dr Gee Tripathi for Covid 19 vaccine administration.
[2020-08-09] MEDS: VITAL AF 1.2 1,000 ML LIQUID GT PRN (18:13)
[2020-08-09 19:46] VITALS: BP 149/89
--- NOTE | 2020-08-09 19:52 | NUR ---
New orders to Give COVID vaccine x 1 carried out.
[2020-08-09] MEDS: MULTIVITAMINS,THERAPEUTIC TABLET GT SCH (20:22)
[2020-08-09] MEDS: MAGNESIUM OXIDE 400 MG TABLET GT SCH (20:22)
[2020-08-10] MEDS: OMEPRAZOLE 40 MG CAPSULE GT SCH (05:19)
[2020-08-10] MEDS: POLYVINYL ALCOHOL OPHT DROPS 15 ML BOTTLE EACHEYE SCH ×2 (05:19→17:29)
[2020-08-10 07:51] VITALS: BP 127/80
[2020-08-10] MEDS: AMIODARONE HCL 200 MG TABLET GT SCH (09:26)
[2020-08-10] MEDS: levETIRAcetam 500 MG/5 ML LIQUID UDC GT SCH ×2 (09:26→20:18)
[2020-08-10] MEDS: PHENOBARBITAL 30 MG/7.5 ML LIQUID UDC GT SCH ×2 (09:26→20:20)
[2020-08-10] MEDS: METOPROLOL TARTRATE 25 MG TABLET GT SCH ×2 (09:26→20:19)
[2020-08-10] MEDS: ASPIRIN 81 MG TAB.CHEW GT SCH (09:26)
[2020-08-10] MEDS: Z GUARD REMEDY PASTE 57 GM TUBE TOP SCH ×2 (09:27→20:22)
[2020-08-10] MEDS: NEOMY/BACITRA/POLYMYXIN B OINT UD PACKET TP SCH ×2 (09:27→20:22)
[2020-08-10] MEDS: DIAZEPAM 5 MG TABLET GT SCH ×2 (09:27→20:21)
[2020-08-10] MEDS: COD LIVER OIL/ZINC OXIDE OINT 113 GM TUBE TP SCH ×4 (09:27→20:22)
[2020-08-10] MEDS: ASCORBIC ACID 500 MG TABLET GT SCH ×2 (09:27→20:21)
[2020-08-10] MEDS: PROTEIN SUPPLEMENT (PROSTAT) 30 ML LIQUID GT SCH ×2 (09:27→20:20)
[2020-08-10] MEDS: HYDROGEN PEROXIDE 3% 118 ML BOTTLE TP SCH ×2 (10:09→21:40)
[2020-08-10] MEDS ORDERED: COVID-19 VACC,MRNA(MODERNA)/PF 100 MCG/0.5 ML VIAL IM ONE (18:00)
--- NOTE | 2020-08-10 18:38 | NUR ---
Pt received the Covid vaccine,no adverse reaction noted.
[2020-08-10 20:19] VITALS: BP 125/81
[2020-08-10] MEDS: MAGNESIUM OXIDE 400 MG TABLET GT SCH (20:19)
[2020-08-10] MEDS: MULTIVITAMINS,THERAPEUTIC TABLET GT SCH (20:21)
[2020-08-10] MEDS: VITAL AF 1.2 1,000 ML LIQUID GT PRN (22:00)
[2020-08-11] MEDS: POLYVINYL ALCOHOL OPHT DROPS 15 ML BOTTLE EACHEYE SCH ×2 (05:01→17:10)
[2020-08-11] MEDS: OMEPRAZOLE 40 MG CAPSULE GT SCH (06:20)
--- NOTE | 2020-08-11 06:21 | NUR ---
no side effects noted from covid vaccine
[2020-08-11 07:53] VITALS: BP 101/65
[2020-08-11] MEDS: ASPIRIN 81 MG TAB.CHEW GT SCH (08:30)
[2020-08-11] MEDS: PHENOBARBITAL 30 MG/7.5 ML LIQUID UDC GT SCH ×2 (08:31→20:56)
[2020-08-11] MEDS: AMIODARONE HCL 200 MG TABLET GT SCH (08:31)
[2020-08-11] MEDS: levETIRAcetam 500 MG/5 ML LIQUID UDC GT SCH ×2 (08:31→20:54)
[2020-08-11] MEDS: METOPROLOL TARTRATE 25 MG TABLET GT SCH ×2 (08:31→20:56)
[2020-08-11] MEDS: DIAZEPAM 5 MG TABLET GT SCH ×2 (08:32→20:56)
[2020-08-11] MEDS: Z GUARD REMEDY PASTE 57 GM TUBE TOP SCH ×2 (08:32→20:57)
[2020-08-11] MEDS: PROTEIN SUPPLEMENT (PROSTAT) 30 ML LIQUID GT SCH ×2 (08:32→20:56)
[2020-08-11] MEDS: ASCORBIC ACID 500 MG TABLET GT SCH ×2 (08:32→20:56)
[2020-08-11] MEDS: NEOMY/BACITRA/POLYMYXIN B OINT UD PACKET TP SCH ×2 (08:33→20:58)
[2020-08-11] MEDS: COD LIVER OIL/ZINC OXIDE OINT 113 GM TUBE TP SCH ×4 (08:33→20:57)
[2020-08-11] MEDS: HYDROGEN PEROXIDE 3% 118 ML BOTTLE TP SCH ×2 (09:25→21:05)
[2020-08-11] MEDS: VITAL AF 1.2 1,000 ML LIQUID GT PRN (16:19)
--- NOTE | 2020-08-11 18:47 | NUR ---
no adverse reaction noted from covid vaccine.
[2020-08-11 19:59] VITALS: BP 119/69
[2020-08-11] MEDS: MAGNESIUM OXIDE 400 MG TABLET GT SCH (20:56)
[2020-08-11] MEDS: MULTIVITAMINS,THERAPEUTIC TABLET GT SCH (20:56)
--- NOTE | 2020-08-12 03:41 | NUR ---
Patient is afebrile, no signs of any adverse reactions noted from the COVID-19 vaccine.
[2020-08-12] MEDS: OMEPRAZOLE 40 MG CAPSULE GT SCH (06:30)
[2020-08-12] MEDS: POLYVINYL ALCOHOL OPHT DROPS 15 ML BOTTLE EACHEYE SCH ×2 (06:30→18:26)
[2020-08-12] MEDS: HYDROGEN PEROXIDE 3% 118 ML BOTTLE TP SCH ×2 (07:45→20:55)
[2020-08-12 07:54] VITALS: BP 112/74
[2020-08-12] MEDS: ASPIRIN 81 MG TAB.CHEW GT SCH (09:13)
[2020-08-12] MEDS: levETIRAcetam 500 MG/5 ML LIQUID UDC GT SCH ×2 (09:13→20:34)
[2020-08-12] MEDS: AMIODARONE HCL 200 MG TABLET GT SCH (09:15)
[2020-08-12] MEDS: METOPROLOL TARTRATE 25 MG TABLET GT SCH ×2 (09:15→20:35)
[2020-08-12] MEDS: Z GUARD REMEDY PASTE 57 GM TUBE TOP SCH ×2 (09:16→20:39)
[2020-08-12] MEDS: PHENOBARBITAL 30 MG/7.5 ML LIQUID UDC GT SCH ×2 (09:16→20:39)
[2020-08-12] MEDS: DIAZEPAM 5 MG TABLET GT SCH ×2 (09:16→20:39)
[2020-08-12] MEDS: NEOMY/BACITRA/POLYMYXIN B OINT UD PACKET TP SCH ×2 (09:16→20:40)
[2020-08-12] MEDS: ASCORBIC ACID 500 MG TABLET GT SCH ×2 (09:16→20:39)
[2020-08-12] MEDS: COD LIVER OIL/ZINC OXIDE OINT 113 GM TUBE TP SCH ×4 (09:16→20:39)
[2020-08-12] MEDS: PROTEIN SUPPLEMENT (PROSTAT) 30 ML LIQUID GT SCH ×2 (09:16→20:39)
--- NOTE | 2020-08-12 18:52 | NUR ---
Pt. is afebrile. No s/s of any adverse reaction noted from covid-19 vaccine. Will continue to monitor
[2020-08-12 20:34] VITALS: BP 124/58
[2020-08-12] MEDS: MAGNESIUM OXIDE 400 MG TABLET GT SCH (20:35)
[2020-08-12] MEDS: MULTIVITAMINS,THERAPEUTIC TABLET GT SCH (20:39)
--- NOTE | 2020-08-12 23:20 | NUR ---
Patient is afebrile, no signs of adverse reaction from Covid-19 vaccine.
[2020-08-13] MEDS: OMEPRAZOLE 40 MG CAPSULE GT SCH (05:20)
[2020-08-13] MEDS: POLYVINYL ALCOHOL OPHT DROPS 15 ML BOTTLE EACHEYE SCH ×2 (05:20→18:04)
[2020-08-13 07:49] VITALS: BP 110/60
[2020-08-13] MEDS: AMIODARONE HCL 200 MG TABLET GT SCH (08:18)
[2020-08-13] MEDS: levETIRAcetam 500 MG/5 ML LIQUID UDC GT SCH ×2 (08:18→20:53)
[2020-08-13] MEDS: ASPIRIN 81 MG TAB.CHEW GT SCH (08:18)
[2020-08-13] MEDS: PHENOBARBITAL 30 MG/7.5 ML LIQUID UDC GT SCH ×2 (08:19→20:54)
[2020-08-13] MEDS: METOPROLOL TARTRATE 25 MG TABLET GT SCH ×2 (08:19→20:53)
[2020-08-13] MEDS: PROTEIN SUPPLEMENT (PROSTAT) 30 ML LIQUID GT SCH ×2 (08:23→20:54)
[2020-08-13] MEDS: DIAZEPAM 5 MG TABLET GT SCH ×2 (08:23→20:54)
[2020-08-13] MEDS: ASCORBIC ACID 500 MG TABLET GT SCH ×2 (08:23→20:54)
[2020-08-13] MEDS: COD LIVER OIL/ZINC OXIDE OINT 113 GM TUBE TP SCH ×4 (08:23→20:54)
[2020-08-13] MEDS: NEOMY/BACITRA/POLYMYXIN B OINT UD PACKET TP SCH ×2 (08:24→20:54)
[2020-08-13] MEDS: HYDROGEN PEROXIDE 3% 118 ML BOTTLE TP SCH ×2 (10:36→21:04)
[2020-08-13] MEDS: VITAL AF 1.2 1,000 ML LIQUID GT PRN (11:18)
--- NOTE | 2020-08-13 18:44 | NUR ---
no rashes or adverse reaction from moderna covid vaccine observed.
[2020-08-13 20:07] VITALS: BP 117/74
[2020-08-13] MEDS: MAGNESIUM OXIDE 400 MG TABLET GT SCH (20:53)
[2020-08-13] MEDS: MULTIVITAMINS,THERAPEUTIC TABLET GT SCH (20:54)
[2020-08-14] MEDS: POLYVINYL ALCOHOL OPHT DROPS 15 ML BOTTLE EACHEYE SCH ×2 (05:23→17:29)
[2020-08-14] MEDS: OMEPRAZOLE 40 MG CAPSULE GT SCH (05:23)
[2020-08-14 08:07] VITALS: BP 122/77
[2020-08-14] MEDS: ASPIRIN 81 MG TAB.CHEW GT SCH (08:44)
[2020-08-14] MEDS: PROTEIN SUPPLEMENT (PROSTAT) 30 ML LIQUID GT SCH ×2 (08:45→21:09)
[2020-08-14] MEDS: ASCORBIC ACID 500 MG TABLET GT SCH ×2 (08:45→21:09)
[2020-08-14] MEDS: levETIRAcetam 500 MG/5 ML LIQUID UDC GT SCH ×2 (08:45→21:08)
[2020-08-14] MEDS: DIAZEPAM 5 MG TABLET GT SCH ×2 (08:45→21:09)
[2020-08-14] MEDS: NEOMY/BACITRA/POLYMYXIN B OINT UD PACKET TP SCH ×2 (08:45→21:09)
[2020-08-14] MEDS: COD LIVER OIL/ZINC OXIDE OINT 113 GM TUBE TP SCH ×4 (08:45→21:09)
[2020-08-14] MEDS: PHENOBARBITAL 30 MG/7.5 ML LIQUID UDC GT SCH ×2 (08:45→21:09)
[2020-08-14] MEDS: HYDROGEN PEROXIDE 3% 118 ML BOTTLE TP SCH ×2 (09:00→21:00)
[2020-08-14] MEDS: AMIODARONE HCL 200 MG TABLET GT SCH (09:14)
[2020-08-14] MEDS: VITAL AF 1.2 1,000 ML LIQUID GT PRN (09:15)
[2020-08-14] MEDS: METOPROLOL TARTRATE 25 MG TABLET GT SCH ×2 (09:15→21:09)
[2020-08-14] MEDS: MULTIVITAMINS,THERAPEUTIC TABLET GT SCH (21:09)
[2020-08-14] MEDS: MAGNESIUM OXIDE 400 MG TABLET GT SCH (21:09)
[2020-08-14 22:00] VITALS: BP 110/77
[2020-08-15] MEDS: VITAL AF 1.2 1,000 ML LIQUID GT PRN (01:55)
[2020-08-15] MEDS: OMEPRAZOLE 40 MG CAPSULE GT SCH (05:59)
[2020-08-15] MEDS: POLYVINYL ALCOHOL OPHT DROPS 15 ML BOTTLE EACHEYE SCH (05:59)
== END 2020-08-11 23:59 | disposition still patient (30) | DRG 130 ==
LOC: SA 18:42
PROVIDERS: ADMIT Internal Medicine; ATTEND Internal Medicine
PROC: 5A1955Z Respiratory Ventilation, Greater than 96 Consecutive Hours (ICD-10-PCS; principal; 2020-06-18)
PROC: 0JB80ZZ Excision of Abdomen Subcutaneous Tissue and Fascia, Open Approach (ICD-10-PCS; 2020-07-05)
PROC: 0JB80ZZ Excision of Abdomen Subcutaneous Tissue and Fascia, Open Approach (ICD-10-PCS; 2020-07-13)
DX: J96.11 Chronic respiratory failure with hypoxia (principal); J96.12 Chronic respiratory failure with hypercapnia; G40.909 Epilepsy, unspecified, not intractable, without status epilepticus; N39.0 Urinary tract infection, site not specified; I69.118 Other symptoms and signs involving cognitive functions following nontraumatic intracerebral hemorrhage; G93.49 Other encephalopathy; I69.351 Hemiplegia and hemiparesis following cerebral infarction affecting right dominant side; E78.5 Hyperlipidemia, unspecified; I69.191 Dysphagia following nontraumatic intracerebral hemorrhage; R13.10 Dysphagia, unspecified; E87.6 Hypokalemia; E43 Unspecified severe protein-calorie malnutrition; N17.9 Acute kidney failure, unspecified; N17.0 Acute kidney failure with tubular necrosis; Z87.01 Personal history of pneumonia (recurrent); Z87.440 Personal history of urinary (tract) infections; Z86.19 Personal history of other infectious and parasitic diseases; I48.0 Paroxysmal atrial fibrillation; D68.69 Other thrombophilia; D50.9 Iron deficiency anemia, unspecified; D69.6 Thrombocytopenia, unspecified; A04.72 Enterocolitis due to Clostridium difficile, not specified as recurrent
CPT/HCPCS: 36415; 71045; 83735; 84100; 85025; 86580; 94003; 94640; J2185; J3260; J3370; J3490; J8499; U0003

== ENCOUNTER 2021-04-11 15:20 | Outpatient (CLI) | payer OTHER ==
[~2021-04-11 15:20] MED LIST changes: -CEFT1VIA15 IV; -OMEP40CA13 GT; +OMEP40CA21 GT; -ONDA4TAB5 GT; -POTA10CA43 IV; -VANC1VIA IV
== END 2021-04-11 23:59 | disposition home or self-care (01) ==
LOC: CT 15:20
PROVIDERS: ATTEND Internal Medicine
DX: N20.0 Calculus of kidney (principal); R16.0 Hepatomegaly, not elsewhere classified; I70.0 Atherosclerosis of aorta; J98.11 Atelectasis; M47.815 Spondylosis without myelopathy or radiculopathy, thoracolumbar region

== ENCOUNTER 2022-08-12 | Inpatient (IN) | payer OTHER ==
[~2022-08-12] VITALS: Ht 170.2 cm; Wt 63.5 kg
[2022-08-14] MEDS ORDERED: DIAZEPAM 5 MG TABLET GT PRN (08:45)
[2022-08-14] MEDS ORDERED: HYDROGEN PEROXIDE 3% 118 ML BOTTLE TP PRN (08:45)
[2022-08-14] MEDS: METOPROLOL TARTRATE 25 MG TABLET GT SCH ×2 (08:58→21:17)
[2022-08-14] MEDS: levETIRAcetam 500 MG/5 ML LIQUID UDC GT SCH ×2 (09:04→21:16)
[2022-08-14] MEDS: CHLORHEXIDINE GLUCONATE 15 ML MOUTHWASH MM SCH (09:04)
[2022-08-14] MEDS: PHENOBARBITAL 64.8 MG TABLET GT SCH ×2 (09:04→21:17)
[2022-08-14] MEDS: DIAZEPAM 5 MG TABLET GT SCH ×2 (09:04→21:22)
[2022-08-14] MEDS: AMIODARONE 100 MG GT SCH (09:04)
[2022-08-14] MEDS: ASPIRIN 81 MG TAB.CHEW GT SCH (09:04)
[2022-08-14] MEDS: NYSTATIN OINTMENT 15 GM TUBE TP SCH ×2 (09:05→21:22)
[2022-08-14] MEDS: REMEDY ESSENTIAL ZINC PASTE 113 GM TP SCH ×3 (09:05→21:22)
[2022-08-14] MEDS: HYDROGEN PEROXIDE 3% 118 ML BOTTLE TP SCH ×2 (09:51→21:10)
[2022-08-14 10:57] VITALS: TEMP 98.2
[2022-08-14] MEDS: POLYVINYL ALCOHOL OPHT DROPS 15 ML BOTTLE EACHEYE SCH (17:59)
[2022-08-14] MEDS: VITAL AF 1.2 1,000 ML LIQUID GT PRN (18:00)
[2022-08-14 21:09] VITALS: TEMP 97.8
[2022-08-14] MEDS: MAGNESIUM OXIDE 400 MG TABLET GT SCH (21:22)
[2022-08-14] MEDS: MULTIVIT, IRON, MIN NO. 8, FA TABLET GT SCH (21:22)
[2022-08-15] MEDS: OMEPRAZOLE 40 MG CAPSULE.DR GT SCH (05:51)
[2022-08-15] MEDS: POLYVINYL ALCOHOL OPHT DROPS 15 ML BOTTLE EACHEYE SCH ×2 (05:51→17:49)
[2022-08-15 07:27] VITALS: TEMP 97.5
[2022-08-15] MEDS: HYDROGEN PEROXIDE 3% 118 ML BOTTLE TP SCH ×2 (07:49→20:41)
[2022-08-15] MEDS: ASPIRIN 81 MG TAB.CHEW GT SCH (08:13)
[2022-08-15] MEDS: levETIRAcetam 500 MG/5 ML LIQUID UDC GT SCH ×2 (08:13→21:23)
[2022-08-15] MEDS: PHENOBARBITAL 64.8 MG TABLET GT SCH ×2 (08:14→21:24)
[2022-08-15] MEDS: METOPROLOL TARTRATE 25 MG TABLET GT SCH ×2 (08:14→21:24)
[2022-08-15] MEDS: AMIODARONE 100 MG GT SCH (08:14)
[2022-08-15] MEDS: DIAZEPAM 5 MG TABLET GT SCH ×2 (08:15→21:24)
[2022-08-15] MEDS: REMEDY ESSENTIAL ZINC PASTE 113 GM TP SCH ×3 (08:21→21:24)
[2022-08-15] MEDS: NYSTATIN OINTMENT 15 GM TUBE TP SCH ×2 (08:21→21:24)
[2022-08-15] MEDS: CHLORHEXIDINE GLUCONATE 15 ML MOUTHWASH MM SCH (09:00)
[2022-08-15 20:00] VITALS: TEMP 98.8
[2022-08-15] MEDS: MULTIVIT, IRON, MIN NO. 8, FA TABLET GT SCH (21:24)
[2022-08-15] MEDS: MAGNESIUM OXIDE 400 MG TABLET GT SCH (21:24)
[2022-08-16] MEDS: VITAL AF 1.2 1,000 ML LIQUID GT PRN (01:58)
[2022-08-16] MEDS: POLYVINYL ALCOHOL OPHT DROPS 15 ML BOTTLE EACHEYE SCH ×2 (06:06→17:26)
[2022-08-16] MEDS: OMEPRAZOLE 40 MG CAPSULE.DR GT SCH (06:06)
[2022-08-16] MEDS: HYDROGEN PEROXIDE 3% 118 ML BOTTLE TP SCH ×2 (07:19→21:20)
[2022-08-16 07:42] VITALS: TEMP 97.7
[2022-08-16] MEDS: ASPIRIN 81 MG TAB.CHEW GT SCH (08:23)
[2022-08-16] MEDS: AMIODARONE 100 MG GT SCH (08:24)
[2022-08-16] MEDS: levETIRAcetam 500 MG/5 ML LIQUID UDC GT SCH ×2 (08:24→21:00)
[2022-08-16] MEDS: PHENOBARBITAL 64.8 MG TABLET GT SCH ×2 (08:24→21:00)
[2022-08-16] MEDS: METOPROLOL TARTRATE 25 MG TABLET GT SCH ×2 (08:24→21:00)
[2022-08-16] MEDS: DIAZEPAM 5 MG TABLET GT SCH ×2 (08:25→21:00)
[2022-08-16] MEDS: CHLORHEXIDINE GLUCONATE 15 ML MOUTHWASH MM SCH (08:25)
[2022-08-16] MEDS: REMEDY ESSENTIAL ZINC PASTE 113 GM TP SCH ×3 (08:25→21:00)
[2022-08-16] MEDS: NYSTATIN OINTMENT 15 GM TUBE TP SCH ×2 (08:25→21:00)
[2022-08-16 20:36] VITALS: TEMP 97.5
[2022-08-16] MEDS: MAGNESIUM OXIDE 400 MG TABLET GT SCH (21:00)
[2022-08-16] MEDS: MULTIVIT, IRON, MIN NO. 8, FA TABLET GT SCH (21:00)
[2022-08-17] MEDS: VITAL AF 1.2 1,000 ML LIQUID GT PRN (04:04)
[2022-08-17] MEDS: OMEPRAZOLE 40 MG CAPSULE.DR GT SCH (05:00)
[2022-08-17] MEDS: POLYVINYL ALCOHOL OPHT DROPS 15 ML BOTTLE EACHEYE SCH ×2 (05:00→18:40)
[2022-08-17 08:00] VITALS: TEMP 97.8
[2022-08-17] MEDS: NYSTATIN OINTMENT 15 GM TUBE TP SCH (09:00)
[2022-08-17] MEDS: AMIODARONE 100 MG GT SCH (09:00)
[2022-08-17] MEDS: METOPROLOL TARTRATE 25 MG TABLET GT SCH ×2 (09:00→21:46)
[2022-08-17] MEDS: PHENOBARBITAL 64.8 MG TABLET GT SCH ×2 (09:00→21:47)
[2022-08-17] MEDS: REMEDY ESSENTIAL ZINC PASTE 113 GM TP SCH ×3 (09:00→21:47)
[2022-08-17] MEDS: ASPIRIN 81 MG TAB.CHEW GT SCH (09:00)
[2022-08-17] MEDS: DIAZEPAM 5 MG TABLET GT SCH ×2 (09:00→21:47)
[2022-08-17] MEDS: levETIRAcetam 500 MG/5 ML LIQUID UDC GT SCH ×2 (09:00→21:46)
[2022-08-17] MEDS: CHLORHEXIDINE GLUCONATE 15 ML MOUTHWASH MM SCH (09:00)
[2022-08-17] MEDS: HYDROGEN PEROXIDE 3% 118 ML BOTTLE TP SCH ×2 (09:34→21:00)
[2022-08-17 20:00] VITALS: TEMP 97.7
[2022-08-17] MEDS: MULTIVIT, IRON, MIN NO. 8, FA TABLET GT SCH (21:47)
[2022-08-17] MEDS: MAGNESIUM OXIDE 400 MG TABLET GT SCH (21:47)
[2022-08-18] MEDS: POLYVINYL ALCOHOL OPHT DROPS 15 ML BOTTLE EACHEYE SCH ×2 (05:11→17:56)
[2022-08-18] MEDS: OMEPRAZOLE 40 MG CAPSULE.DR GT SCH (05:11)
[2022-08-18 08:33] VITALS: TEMP 97
[2022-08-18] MEDS: HYDROGEN PEROXIDE 3% 118 ML BOTTLE TP SCH ×2 (08:40→21:15)
[2022-08-18] MEDS: METOPROLOL TARTRATE 25 MG TABLET GT SCH ×2 (09:00→20:47)
[2022-08-18] MEDS: levETIRAcetam 500 MG/5 ML LIQUID UDC GT SCH ×2 (09:31→20:46)
[2022-08-18] MEDS: ASPIRIN 81 MG TAB.CHEW GT SCH (09:31)
[2022-08-18] MEDS: AMIODARONE 100 MG GT SCH (09:32)
[2022-08-18] MEDS: PHENOBARBITAL 64.8 MG TABLET GT SCH ×2 (09:32→20:47)
[2022-08-18] MEDS: CHLORHEXIDINE GLUCONATE 15 ML MOUTHWASH MM SCH (09:33)
[2022-08-18] MEDS: DIAZEPAM 5 MG TABLET GT SCH ×2 (09:33→20:47)
[2022-08-18] MEDS: REMEDY ESSENTIAL ZINC PASTE 113 GM TP SCH ×3 (09:33→20:47)
[2022-08-18] MEDS: VITAL AF 1.2 1,000 ML LIQUID GT PRN (13:36)
[2022-08-18 20:36] VITALS: TEMP 97.4
[2022-08-18] MEDS: MAGNESIUM OXIDE 400 MG TABLET GT SCH (20:47)
[2022-08-18] MEDS: MULTIVIT, IRON, MIN NO. 8, FA TABLET GT SCH (20:47)
[2022-08-19] MEDS: OMEPRAZOLE 40 MG CAPSULE.DR GT SCH (05:32)
[2022-08-19] MEDS: POLYVINYL ALCOHOL OPHT DROPS 15 ML BOTTLE EACHEYE SCH ×2 (05:32→17:09)
[2022-08-19 08:00] VITALS: TEMP 97.9
[2022-08-19] MEDS: HYDROGEN PEROXIDE 3% 118 ML BOTTLE TP SCH ×2 (08:11→21:56)
[2022-08-19] MEDS: levETIRAcetam 500 MG/5 ML LIQUID UDC GT SCH ×2 (08:32→21:44)
[2022-08-19] MEDS: ASPIRIN 81 MG TAB.CHEW GT SCH (08:32)
[2022-08-19] MEDS: REMEDY ESSENTIAL ZINC PASTE 113 GM TP SCH ×3 (08:33→21:45)
[2022-08-19] MEDS: DIAZEPAM 5 MG TABLET GT SCH ×2 (08:33→21:45)
[2022-08-19] MEDS: AMIODARONE 100 MG GT SCH (08:33)
[2022-08-19] MEDS: METOPROLOL TARTRATE 25 MG TABLET GT SCH ×2 (08:33→21:00)
[2022-08-19] MEDS: PHENOBARBITAL 64.8 MG TABLET GT SCH ×2 (08:33→21:45)
[2022-08-19] MEDS: CHLORHEXIDINE GLUCONATE 15 ML MOUTHWASH MM SCH (08:33)
[2022-08-19 20:00] VITALS: TEMP 97.7
[2022-08-19] MEDS: MULTIVIT, IRON, MIN NO. 8, FA TABLET GT SCH (21:45)
[2022-08-19] MEDS: MAGNESIUM OXIDE 400 MG TABLET GT SCH (21:45)
[2022-08-19 22:47] VITALS: TEMP 97.7
[2022-08-20] MEDS: VITAL AF 1.2 1,000 ML LIQUID GT PRN (01:11)
[2022-08-20] MEDS: POLYVINYL ALCOHOL OPHT DROPS 15 ML BOTTLE EACHEYE SCH ×2 (06:00→17:07)
[2022-08-20] MEDS: OMEPRAZOLE 40 MG CAPSULE.DR GT SCH (06:00)
[2022-08-20 07:52] VITALS: TEMP 98
[2022-08-20 07:53] LABS: BASOPHILS % (AUTO) 0.8 % (0.0-2.0); EOSINOPHILS # (AUTO) 0.1 K/uL (0.0-0.7); EOSINOPHILS % (AUTO) 3.4 % (0.0-7.0); HEMATOCRIT 30.1 % (31.2-41.9); HEMOGLOBIN 9.9 g/dL (10.9-14.3); LYMPHOCYTES # (AUTO) 1.3 K/uL (0.8-4.8); LYMPHOCYTES % (AUTO) 32.9 % (20.5-51.5); MEAN CORPUSCULAR HEMOGLOBIN 26.2 uug (24.7-32.8); MEAN CORPUSCULAR HGB CONC 33 g/dL (32.3-35.6); MEAN CORPUSCULAR VOLUME 79.6 fL (75.5-95.3); MONOCYTES # (AUTO) 0.4 K/uL (0.1-1.30); NEUTROPHILS # (AUTO) 2.1 K/uL (1.8-8.9); NEUTROPHILS % (AUTO) 53.9 % (38.5-71.5); PLATELET COUNT (AUTO) 229 K/uL (179-408); RED BLOOD CELL COUNT(AUTO) 3.78 MIL/uL (3.63-4.92); RED CELL DISTRIBUTION WIDTH 19.1 % (12.3-17.7); WHITE BLOOD COUNT (AUTO) 3.9 K/uL (3.8-11.8)
[2022-08-20 08:06] LABS: DIFFERENTIAL COMMENT 1
[2022-08-20 08:13] LABS: ALBUMIN 3.1 g/dL (3.4-5.0); BILIRUBIN,TOTAL 0.3 mg/dL (0.2-1.0); CALCIUM 9.3 mg/dL (8.5-10.1); CREATININE 0.6 mg/dL (0.6-1.3); MAGNESIUM 2.3 mg/dL (1.8-2.4); PHOSPHOROUS 4.4 mg/dL (2.5-4.9); POTASSIUM 4.8 mmol/L (3.5-5.1); TOTAL PROTEIN, SERUM 7.3 g/dL (6.4-8.2)
[2022-08-20] MEDS: HYDROGEN PEROXIDE 3% 118 ML BOTTLE TP SCH ×2 (08:32→21:01)
[2022-08-20] MEDS: ASPIRIN 81 MG TAB.CHEW GT SCH (08:38)
[2022-08-20] MEDS: PHENOBARBITAL 64.8 MG TABLET GT SCH ×2 (08:39→21:14)
[2022-08-20] MEDS: levETIRAcetam 500 MG/5 ML LIQUID UDC GT SCH ×2 (08:39→21:13)
[2022-08-20] MEDS: REMEDY ESSENTIAL ZINC PASTE 113 GM TP SCH ×3 (08:41→21:14)
[2022-08-20] MEDS: DIAZEPAM 5 MG TABLET GT SCH ×2 (08:41→21:14)
[2022-08-20] MEDS: CHLORHEXIDINE GLUCONATE 15 ML MOUTHWASH MM SCH (08:41)
[2022-08-20] MEDS: AMIODARONE 100 MG GT SCH (08:41)
[2022-08-20] MEDS: METOPROLOL TARTRATE 25 MG TABLET GT SCH ×2 (08:47→21:00)
[2022-08-20 20:00] VITALS: TEMP 97.4
[2022-08-20] MEDS: MULTIVIT, IRON, MIN NO. 8, FA TABLET GT SCH (21:14)
[2022-08-20] MEDS: MAGNESIUM OXIDE 400 MG TABLET GT SCH (21:14)
[2022-08-21] MEDS: POLYVINYL ALCOHOL OPHT DROPS 15 ML BOTTLE EACHEYE SCH ×2 (06:12→17:37)
[2022-08-21] MEDS: OMEPRAZOLE 40 MG CAPSULE.DR GT SCH (06:12)
[2022-08-21 08:00] VITALS: TEMP 97
[2022-08-21] MEDS: HYDROGEN PEROXIDE 3% 118 ML BOTTLE TP SCH ×2 (09:00→21:56)
[2022-08-21] MEDS: METOPROLOL TARTRATE 25 MG TABLET GT SCH ×2 (09:00→20:23)
[2022-08-21] MEDS: levETIRAcetam 500 MG/5 ML LIQUID UDC GT SCH ×2 (09:28→20:23)
[2022-08-21] MEDS: ASPIRIN 81 MG TAB.CHEW GT SCH (09:28)
[2022-08-21] MEDS: AMIODARONE 100 MG GT SCH (09:30)
[2022-08-21] MEDS: DIAZEPAM 5 MG TABLET GT SCH ×2 (09:30→20:24)
[2022-08-21] MEDS: REMEDY ESSENTIAL ZINC PASTE 113 GM TP SCH ×3 (09:30→20:24)
[2022-08-21] MEDS: PHENOBARBITAL 64.8 MG TABLET GT SCH ×2 (09:30→20:23)
[2022-08-21] MEDS: CHLORHEXIDINE GLUCONATE 15 ML MOUTHWASH MM SCH (09:30)
[2022-08-21] MEDS: ACETAMINOPHEN 650 MG/20 ML UDC- SA PATIENTS-PAIN ONLY GT PRN (18:45)
[2022-08-21 20:00] VITALS: TEMP 98
[2022-08-21] MEDS: MULTIVIT, IRON, MIN NO. 8, FA TABLET GT SCH (20:24)
[2022-08-21] MEDS: MAGNESIUM OXIDE 400 MG TABLET GT SCH (20:24)
[2022-08-22] MEDS: OMEPRAZOLE 40 MG CAPSULE.DR GT SCH (06:52)
[2022-08-22] MEDS: POLYVINYL ALCOHOL OPHT DROPS 15 ML BOTTLE EACHEYE SCH ×2 (06:52→17:08)
[2022-08-22 07:28] VITALS: TEMP 97.1
[2022-08-22] MEDS: PHENOBARBITAL 64.8 MG TABLET GT SCH ×2 (08:21→20:14)
[2022-08-22] MEDS: METOPROLOL TARTRATE 25 MG TABLET GT SCH ×2 (08:21→20:12)
[2022-08-22] MEDS: CHLORHEXIDINE GLUCONATE 15 ML MOUTHWASH MM SCH (08:22)
[2022-08-22] MEDS: AMIODARONE 100 MG GT SCH (08:22)
[2022-08-22] MEDS: DIAZEPAM 5 MG TABLET GT SCH ×2 (08:22→20:17)
[2022-08-22] MEDS: ASPIRIN 81 MG TAB.CHEW GT SCH (08:22)
[2022-08-22] MEDS: levETIRAcetam 500 MG/5 ML LIQUID UDC GT SCH ×2 (08:22→20:11)
[2022-08-22] MEDS: REMEDY ESSENTIAL ZINC PASTE 113 GM TP SCH ×3 (08:26→20:17)
[2022-08-22] MEDS: HYDROGEN PEROXIDE 3% 118 ML BOTTLE TP SCH ×2 (08:44→20:56)
[2022-08-22 20:00] VITALS: TEMP 98
[2022-08-22] MEDS: MULTIVIT, IRON, MIN NO. 8, FA TABLET GT SCH (20:16)
[2022-08-22] MEDS: MAGNESIUM OXIDE 400 MG TABLET GT SCH (20:16)
[2022-08-23] MEDS: VITAL AF 1.2 1,000 ML LIQUID GT PRN (04:30)
[2022-08-23] MEDS: POLYVINYL ALCOHOL OPHT DROPS 15 ML BOTTLE EACHEYE SCH ×2 (05:47→17:08)
[2022-08-23] MEDS: OMEPRAZOLE 40 MG CAPSULE.DR GT SCH (05:47)
[2022-08-23 07:30] VITALS: TEMP 97.8
[2022-08-23] MEDS: ASPIRIN 81 MG TAB.CHEW GT SCH (08:11)
[2022-08-23] MEDS: levETIRAcetam 500 MG/5 ML LIQUID UDC GT SCH ×2 (08:12→21:00)
[2022-08-23] MEDS: METOPROLOL TARTRATE 25 MG TABLET GT SCH ×2 (08:12→21:00)
[2022-08-23] MEDS: PHENOBARBITAL 64.8 MG TABLET GT SCH ×2 (08:13→21:00)
[2022-08-23] MEDS: CHLORHEXIDINE GLUCONATE 15 ML MOUTHWASH MM SCH (08:13)
[2022-08-23] MEDS: DIAZEPAM 5 MG TABLET GT SCH ×2 (08:13→21:00)
[2022-08-23] MEDS: AMIODARONE 100 MG GT SCH (08:13)
[2022-08-23] MEDS: REMEDY ESSENTIAL ZINC PASTE 113 GM TP SCH ×3 (08:14→21:00)
[2022-08-23] MEDS: HYDROGEN PEROXIDE 3% 118 ML BOTTLE TP SCH ×2 (10:07→21:04)
[2022-08-23 20:55] VITALS: TEMP 98.7
[2022-08-23] MEDS: MULTIVIT, IRON, MIN NO. 8, FA TABLET GT SCH (21:00)
[2022-08-23] MEDS: MAGNESIUM OXIDE 400 MG TABLET GT SCH (21:00)
[2022-08-24] MEDS: VITAL AF 1.2 1,000 ML LIQUID GT PRN ×2 (04:40→14:16)
[2022-08-24] MEDS: POLYVINYL ALCOHOL OPHT DROPS 15 ML BOTTLE EACHEYE SCH ×2 (05:39→18:35)
[2022-08-24] MEDS: OMEPRAZOLE 40 MG CAPSULE.DR GT SCH (05:39)
[2022-08-24 07:26] VITALS: TEMP 97.6
[2022-08-24] MEDS: ASPIRIN 81 MG TAB.CHEW GT SCH (08:53)
[2022-08-24] MEDS: CHLORHEXIDINE GLUCONATE 15 ML MOUTHWASH MM SCH (08:53)
[2022-08-24] MEDS: DIAZEPAM 5 MG TABLET GT SCH ×2 (08:53→21:12)
[2022-08-24] MEDS: AMIODARONE 100 MG GT SCH (08:53)
[2022-08-24] MEDS: levETIRAcetam 500 MG/5 ML LIQUID UDC GT SCH ×2 (08:53→21:12)
[2022-08-24] MEDS: REMEDY ESSENTIAL ZINC PASTE 113 GM TP SCH ×3 (08:53→21:12)
[2022-08-24] MEDS: METOPROLOL TARTRATE 25 MG TABLET GT SCH ×2 (08:53→21:12)
[2022-08-24] MEDS: PHENOBARBITAL 64.8 MG TABLET GT SCH ×2 (08:53→21:12)
[2022-08-24] MEDS: HYDROGEN PEROXIDE 3% 118 ML BOTTLE TP SCH ×2 (09:00→20:14)
[2022-08-24] MEDS: MAGNESIUM OXIDE 400 MG TABLET GT SCH (21:12)
[2022-08-24] MEDS: MULTIVIT, IRON, MIN NO. 8, FA TABLET GT SCH (21:12)
[2022-08-25] MEDS: POLYVINYL ALCOHOL OPHT DROPS 15 ML BOTTLE EACHEYE SCH ×2 (06:56→17:43)
[2022-08-25] MEDS: OMEPRAZOLE 40 MG CAPSULE.DR GT SCH (06:56)
[2022-08-25 07:47] VITALS: TEMP 97.7
[2022-08-25] MEDS: HYDROGEN PEROXIDE 3% 118 ML BOTTLE TP SCH ×2 (07:47→20:32)
[2022-08-25] MEDS: METOPROLOL TARTRATE 25 MG TABLET GT SCH ×2 (09:00→21:00)
[2022-08-25] MEDS: levETIRAcetam 500 MG/5 ML LIQUID UDC GT SCH ×2 (09:05→21:00)
[2022-08-25] MEDS: AMIODARONE 100 MG GT SCH (09:05)
[2022-08-25] MEDS: ASPIRIN 81 MG TAB.CHEW GT SCH (09:05)
[2022-08-25] MEDS: PHENOBARBITAL 64.8 MG TABLET GT SCH ×2 (09:05→21:00)
[2022-08-25] MEDS: DIAZEPAM 5 MG TABLET GT SCH ×2 (09:05→21:00)
[2022-08-25] MEDS: CHLORHEXIDINE GLUCONATE 15 ML MOUTHWASH MM SCH (09:22)
[2022-08-25] MEDS: REMEDY ESSENTIAL ZINC PASTE 113 GM TP SCH ×3 (09:22→21:00)
[2022-08-25] MEDS: VITAL AF 1.2 1,000 ML LIQUID GT PRN (18:30)
[2022-08-25 20:00] VITALS: TEMP 97.1
[2022-08-25] MEDS: MAGNESIUM OXIDE 400 MG TABLET GT SCH (21:00)
[2022-08-25] MEDS: MULTIVIT, IRON, MIN NO. 8, FA TABLET GT SCH (21:00)
[2022-08-26] MEDS: OMEPRAZOLE 40 MG CAPSULE.DR GT SCH (06:56)
[2022-08-26] MEDS: POLYVINYL ALCOHOL OPHT DROPS 15 ML BOTTLE EACHEYE SCH ×2 (06:56→17:29)
[2022-08-26 07:55] VITALS: TEMP 97.9
[2022-08-26] MEDS: HYDROGEN PEROXIDE 3% 118 ML BOTTLE TP SCH ×2 (08:42→20:52)
[2022-08-26] MEDS: levETIRAcetam 500 MG/5 ML LIQUID UDC GT SCH ×2 (08:58→20:57)
[2022-08-26] MEDS: ASPIRIN 81 MG TAB.CHEW GT SCH (08:58)
[2022-08-26] MEDS: METOPROLOL TARTRATE 25 MG TABLET GT SCH ×2 (08:58→20:58)
[2022-08-26] MEDS: AMIODARONE 100 MG GT SCH (08:59)
[2022-08-26] MEDS: REMEDY ESSENTIAL ZINC PASTE 113 GM TP SCH ×3 (08:59→20:58)
[2022-08-26] MEDS: CHLORHEXIDINE GLUCONATE 15 ML MOUTHWASH MM SCH (08:59)
[2022-08-26] MEDS: PHENOBARBITAL 64.8 MG TABLET GT SCH ×2 (09:00→20:58)
[2022-08-26] MEDS: DIAZEPAM 5 MG TABLET GT SCH ×2 (09:00→20:58)
[2022-08-26 20:00] VITALS: TEMP 97.5
[2022-08-26] MEDS: MAGNESIUM OXIDE 400 MG TABLET GT SCH (20:58)
[2022-08-26] MEDS: MULTIVIT, IRON, MIN NO. 8, FA TABLET GT SCH (20:58)
[2022-08-27] MEDS: POLYVINYL ALCOHOL OPHT DROPS 15 ML BOTTLE EACHEYE SCH ×2 (05:05→17:24)
[2022-08-27] MEDS: OMEPRAZOLE 40 MG CAPSULE.DR GT SCH (05:05)
[2022-08-27] MEDS: HYDROGEN PEROXIDE 3% 118 ML BOTTLE TP SCH ×2 (07:52→21:00)
[2022-08-27 08:00] VITALS: TEMP 97.8
[2022-08-27] MEDS: ASPIRIN 81 MG TAB.CHEW GT SCH (09:00)
[2022-08-27] MEDS: NEOMY/BACITRA/POLYMYXIN B OINT UD PACKET TP SCH ×2 (09:00→21:00)
[2022-08-27] MEDS: DIAZEPAM 5 MG TABLET GT SCH ×2 (09:00→21:00)
[2022-08-27] MEDS: PHENOBARBITAL 64.8 MG TABLET GT SCH ×2 (09:00→21:00)
[2022-08-27] MEDS: CHLORHEXIDINE GLUCONATE 15 ML MOUTHWASH MM SCH (09:00)
[2022-08-27] MEDS: AMIODARONE 100 MG GT SCH (09:00)
[2022-08-27] MEDS: levETIRAcetam 500 MG/5 ML LIQUID UDC GT SCH ×2 (09:00→21:00)
[2022-08-27] MEDS: REMEDY ESSENTIAL ZINC PASTE 113 GM TP SCH ×3 (09:00→21:00)
[2022-08-27] MEDS: METOPROLOL TARTRATE 25 MG TABLET GT SCH ×2 (09:00→21:00)
[2022-08-27 20:14] VITALS: TEMP 98.6
[2022-08-27] MEDS: MAGNESIUM OXIDE 400 MG TABLET GT SCH (21:00)
[2022-08-27] MEDS: MULTIVIT, IRON, MIN NO. 8, FA TABLET GT SCH (21:00)
[2022-08-28] MEDS: OMEPRAZOLE 40 MG CAPSULE.DR GT SCH (06:31)
[2022-08-28] MEDS: POLYVINYL ALCOHOL OPHT DROPS 15 ML BOTTLE EACHEYE SCH ×2 (06:31→17:19)
[2022-08-28] MEDS: AMIODARONE 100 MG GT SCH (08:57)
[2022-08-28] MEDS: DIAZEPAM 5 MG TABLET GT SCH ×2 (08:57→21:08)
[2022-08-28] MEDS: ASPIRIN 81 MG TAB.CHEW GT SCH (08:57)
[2022-08-28] MEDS: PHENOBARBITAL 64.8 MG TABLET GT SCH ×2 (08:57→21:08)
[2022-08-28] MEDS: levETIRAcetam 500 MG/5 ML LIQUID UDC GT SCH ×2 (08:57→21:07)
[2022-08-28] MEDS: METOPROLOL TARTRATE 25 MG TABLET GT SCH ×2 (08:57→21:08)
[2022-08-28] MEDS: CHLORHEXIDINE GLUCONATE 15 ML MOUTHWASH MM SCH (08:58)
[2022-08-28] MEDS: REMEDY ESSENTIAL ZINC PASTE 113 GM TP SCH ×4 (08:58→21:08)
[2022-08-28] MEDS: NEOMY/BACITRA/POLYMYXIN B OINT UD PACKET TP SCH ×2 (08:58→21:09)
[2022-08-28] MEDS: HYDROGEN PEROXIDE 3% 118 ML BOTTLE TP SCH ×2 (09:00→21:00)
[2022-08-28 11:09] VITALS: TEMP 97.8
[2022-08-28 20:07] VITALS: TEMP 98.7
[2022-08-28] MEDS: NYSTATIN CREAM 30 GM TUBE TP SCH ×2 (21:08)
[2022-08-28] MEDS: MAGNESIUM OXIDE 400 MG TABLET GT SCH (21:08)
[2022-08-28] MEDS: MULTIVIT, IRON, MIN NO. 8, FA TABLET GT SCH (21:08)
[2022-08-29] MEDS: OMEPRAZOLE 40 MG CAPSULE.DR GT SCH (05:59)
[2022-08-29] MEDS: POLYVINYL ALCOHOL OPHT DROPS 15 ML BOTTLE EACHEYE SCH ×2 (05:59→17:03)
[2022-08-29] MEDS: HYDROGEN PEROXIDE 3% 118 ML BOTTLE TP SCH ×2 (07:27→20:51)
[2022-08-29] MEDS: levETIRAcetam 500 MG/5 ML LIQUID UDC GT SCH ×2 (08:47→21:18)
[2022-08-29] MEDS: ASPIRIN 81 MG TAB.CHEW GT SCH (08:47)
[2022-08-29] MEDS: METOPROLOL TARTRATE 25 MG TABLET GT SCH ×2 (08:48→21:19)
[2022-08-29] MEDS: DIAZEPAM 5 MG TABLET GT SCH ×2 (08:49→21:19)
[2022-08-29] MEDS: REMEDY ESSENTIAL ZINC PASTE 113 GM TP SCH ×5 (08:49→21:19)
[2022-08-29] MEDS: CHLORHEXIDINE GLUCONATE 15 ML MOUTHWASH MM SCH (08:49)
[2022-08-29] MEDS: AMIODARONE 100 MG GT SCH (08:49)
[2022-08-29] MEDS: PHENOBARBITAL 64.8 MG TABLET GT SCH ×2 (08:49→21:19)
[2022-08-29] MEDS: NYSTATIN CREAM 30 GM TUBE TP SCH ×4 (08:49→21:19)
[2022-08-29] MEDS: NEOMY/BACITRA/POLYMYXIN B OINT UD PACKET TP SCH ×2 (08:50→21:19)
[2022-08-29 11:04] VITALS: TEMP 97.6
[2022-08-29 20:13] VITALS: TEMP 98.4
[2022-08-29] MEDS: MULTIVIT, IRON, MIN NO. 8, FA TABLET GT SCH (21:19)
[2022-08-29] MEDS: MAGNESIUM OXIDE 400 MG TABLET GT SCH (21:19)
[2022-08-30] MEDS: POLYVINYL ALCOHOL OPHT DROPS 15 ML BOTTLE EACHEYE SCH ×2 (05:11→17:42)
[2022-08-30] MEDS: OMEPRAZOLE 40 MG CAPSULE.DR GT SCH (05:11)
[2022-08-30 07:35] VITALS: TEMP 97.5
[2022-08-30] MEDS: HYDROGEN PEROXIDE 3% 118 ML BOTTLE TP SCH ×2 (07:39→19:20)
[2022-08-30] MEDS: ASPIRIN 81 MG TAB.CHEW GT SCH (08:23)
[2022-08-30] MEDS: levETIRAcetam 500 MG/5 ML LIQUID UDC GT SCH ×2 (08:23→21:00)
[2022-08-30] MEDS: METOPROLOL TARTRATE 25 MG TABLET GT SCH ×2 (08:23→21:00)
[2022-08-30] MEDS: AMIODARONE 100 MG GT SCH (08:24)
[2022-08-30] MEDS: REMEDY ESSENTIAL ZINC PASTE 113 GM TP SCH ×5 (08:24→21:00)
[2022-08-30] MEDS: CHLORHEXIDINE GLUCONATE 15 ML MOUTHWASH MM SCH (08:24)
[2022-08-30] MEDS: NYSTATIN CREAM 30 GM TUBE TP SCH ×4 (08:24→21:00)
[2022-08-30] MEDS: PHENOBARBITAL 64.8 MG TABLET GT SCH ×2 (08:24→21:00)
[2022-08-30] MEDS: DIAZEPAM 5 MG TABLET GT SCH ×2 (08:24→21:00)
[2022-08-30] MEDS: NEOMY/BACITRA/POLYMYXIN B OINT UD PACKET TP SCH ×2 (08:25→21:00)
[2022-08-30 20:00] VITALS: TEMP 98
[2022-08-30] MEDS: MAGNESIUM OXIDE 400 MG TABLET GT SCH (21:00)
[2022-08-30] MEDS: MULTIVIT, IRON, MIN NO. 8, FA TABLET GT SCH (21:00)
[2022-08-31] MEDS: POLYVINYL ALCOHOL OPHT DROPS 15 ML BOTTLE EACHEYE SCH ×2 (05:16→17:04)
[2022-08-31] MEDS: OMEPRAZOLE 40 MG CAPSULE.DR GT SCH (05:16)
[2022-08-31] MEDS: VITAL AF 1.2 1,000 ML LIQUID GT PRN (05:32)
[2022-08-31] MEDS: HYDROGEN PEROXIDE 3% 118 ML BOTTLE TP SCH ×2 (07:19→19:18)
[2022-08-31 08:00] VITALS: TEMP 97.4
[2022-08-31] MEDS: CHLORHEXIDINE GLUCONATE 15 ML MOUTHWASH MM SCH (08:53)
[2022-08-31] MEDS: levETIRAcetam 500 MG/5 ML LIQUID UDC GT SCH ×2 (08:53→20:30)
[2022-08-31] MEDS: DIAZEPAM 5 MG TABLET GT SCH ×2 (08:53→20:31)
[2022-08-31] MEDS: NYSTATIN CREAM 30 GM TUBE TP SCH ×4 (08:53→20:31)
[2022-08-31] MEDS: METOPROLOL TARTRATE 25 MG TABLET GT SCH ×2 (08:53→20:31)
[2022-08-31] MEDS: ASPIRIN 81 MG TAB.CHEW GT SCH (08:53)
[2022-08-31] MEDS: REMEDY ESSENTIAL ZINC PASTE 113 GM TP SCH ×5 (08:53→20:31)
[2022-08-31] MEDS: AMIODARONE 100 MG GT SCH (08:53)
[2022-08-31] MEDS: PHENOBARBITAL 64.8 MG TABLET GT SCH ×2 (08:53→20:31)
[2022-08-31] MEDS: NEOMY/BACITRA/POLYMYXIN B OINT UD PACKET TP SCH ×2 (08:54→20:31)
[2022-08-31 20:00] VITALS: TEMP 97.8
[2022-08-31] MEDS: MAGNESIUM OXIDE 400 MG TABLET GT SCH (20:31)
[2022-08-31] MEDS: MULTIVIT, IRON, MIN NO. 8, FA TABLET GT SCH (20:31)
[2022-09-01] MEDS: OMEPRAZOLE 40 MG CAPSULE.DR GT SCH (05:16)
[2022-09-01] MEDS: POLYVINYL ALCOHOL OPHT DROPS 15 ML BOTTLE EACHEYE SCH ×2 (05:16→17:41)
[2022-09-01 07:45] VITALS: TEMP 97.6
[2022-09-01] MEDS: HYDROGEN PEROXIDE 3% 118 ML BOTTLE TP SCH ×2 (08:23→19:13)
[2022-09-01] MEDS: ASPIRIN 81 MG TAB.CHEW GT SCH (08:39)
[2022-09-01] MEDS: levETIRAcetam 500 MG/5 ML LIQUID UDC GT SCH ×2 (08:40→21:00)
[2022-09-01] MEDS: CHLORHEXIDINE GLUCONATE 15 ML MOUTHWASH MM SCH (08:41)
[2022-09-01] MEDS: PHENOBARBITAL 64.8 MG TABLET GT SCH ×2 (08:41→21:00)
[2022-09-01] MEDS: NYSTATIN CREAM 30 GM TUBE TP SCH ×4 (08:41→21:00)
[2022-09-01] MEDS: REMEDY ESSENTIAL ZINC PASTE 113 GM TP SCH ×5 (08:41→21:00)
[2022-09-01] MEDS: DIAZEPAM 5 MG TABLET GT SCH ×2 (08:41→21:00)
[2022-09-01] MEDS: AMIODARONE 100 MG GT SCH (08:41)
[2022-09-01] MEDS: METOPROLOL TARTRATE 25 MG TABLET GT SCH ×2 (08:41→21:00)
[2022-09-01] MEDS: NEOMY/BACITRA/POLYMYXIN B OINT UD PACKET TP SCH ×2 (08:42→21:00)
[2022-09-01 11:00] VITALS: O2SAT 99
[2022-09-01 20:09] VITALS: TEMP 97.5
[2022-09-01] MEDS: MAGNESIUM OXIDE 400 MG TABLET GT SCH (21:00)
[2022-09-01] MEDS: MULTIVIT, IRON, MIN NO. 8, FA TABLET GT SCH (21:00)
[2022-09-02] MEDS: POLYVINYL ALCOHOL OPHT DROPS 15 ML BOTTLE EACHEYE SCH ×2 (05:31→17:26)
[2022-09-02] MEDS: OMEPRAZOLE 40 MG CAPSULE.DR GT SCH (05:32)
[2022-09-02 08:00] VITALS: TEMP 97.9; TEMP 98.1
[2022-09-02] MEDS: METOPROLOL TARTRATE 25 MG TABLET GT SCH ×2 (09:00→22:00)
[2022-09-02] MEDS: HYDROGEN PEROXIDE 3% 118 ML BOTTLE TP SCH ×2 (09:26→22:00)
[2022-09-02] MEDS: levETIRAcetam 500 MG/5 ML LIQUID UDC GT SCH ×2 (09:47→22:00)
[2022-09-02] MEDS: ASPIRIN 81 MG TAB.CHEW GT SCH (09:47)
[2022-09-02] MEDS: PHENOBARBITAL 64.8 MG TABLET GT SCH ×2 (09:48→23:35)
[2022-09-02] MEDS: AMIODARONE 100 MG GT SCH (09:48)
[2022-09-02] MEDS: NYSTATIN CREAM 30 GM TUBE TP SCH ×4 (09:49→22:00)
[2022-09-02] MEDS: REMEDY ESSENTIAL ZINC PASTE 113 GM TP SCH ×5 (09:49→22:00)
[2022-09-02] MEDS: DIAZEPAM 5 MG TABLET GT SCH ×2 (09:49→23:38)
[2022-09-02] MEDS: CHLORHEXIDINE GLUCONATE 15 ML MOUTHWASH MM SCH (09:49)
[2022-09-02] MEDS: NEOMY/BACITRA/POLYMYXIN B OINT UD PACKET TP SCH ×2 (09:49→22:00)
[2022-09-02 20:20] VITALS: TEMP 98
[2022-09-02] MEDS: MAGNESIUM OXIDE 400 MG TABLET GT SCH (22:00)
[2022-09-02] MEDS: MULTIVIT, IRON, MIN NO. 8, FA TABLET GT SCH (22:00)
[2022-09-03] MEDS: POLYVINYL ALCOHOL OPHT DROPS 15 ML BOTTLE EACHEYE SCH ×2 (06:21→18:10)
[2022-09-03] MEDS: OMEPRAZOLE 40 MG CAPSULE.DR GT SCH (06:21)
[2022-09-03 07:48] VITALS: TEMP 97.9
[2022-09-03] MEDS: HYDROGEN PEROXIDE 3% 118 ML BOTTLE TP SCH ×2 (08:22→21:29)
[2022-09-03] MEDS: ASPIRIN 81 MG TAB.CHEW GT SCH (09:07)
[2022-09-03] MEDS: levETIRAcetam 500 MG/5 ML LIQUID UDC GT SCH ×2 (09:07→21:51)
[2022-09-03] MEDS: PHENOBARBITAL 64.8 MG TABLET GT SCH ×2 (09:09→21:52)
[2022-09-03] MEDS: METOPROLOL TARTRATE 25 MG TABLET GT SCH ×2 (09:09→21:52)
[2022-09-03] MEDS: NYSTATIN CREAM 30 GM TUBE TP SCH ×4 (09:09→21:52)
[2022-09-03] MEDS: NEOMY/BACITRA/POLYMYXIN B OINT UD PACKET TP SCH ×2 (09:09→21:52)
[2022-09-03] MEDS: REMEDY ESSENTIAL ZINC PASTE 113 GM TP SCH ×5 (09:09→21:52)
[2022-09-03] MEDS: AMIODARONE 100 MG GT SCH (09:09)
[2022-09-03] MEDS: CHLORHEXIDINE GLUCONATE 15 ML MOUTHWASH MM SCH (09:09)
[2022-09-03] MEDS: DIAZEPAM 5 MG TABLET GT SCH ×2 (09:09→21:52)
[2022-09-03 20:00] VITALS: TEMP 98.1
[2022-09-03] MEDS: MULTIVIT, IRON, MIN NO. 8, FA TABLET GT SCH (21:52)
[2022-09-03] MEDS: MAGNESIUM OXIDE 400 MG TABLET GT SCH (21:52)
[2022-09-04] MEDS: OMEPRAZOLE 40 MG CAPSULE.DR GT SCH (06:57)
[2022-09-04] MEDS: POLYVINYL ALCOHOL OPHT DROPS 15 ML BOTTLE EACHEYE SCH ×2 (06:57→17:34)
[2022-09-04 07:11] VITALS: TEMP 98.2
[2022-09-04] MEDS: ASPIRIN 81 MG TAB.CHEW GT SCH (08:24)
[2022-09-04] MEDS: levETIRAcetam 500 MG/5 ML LIQUID UDC GT SCH ×2 (08:27→20:10)
[2022-09-04] MEDS: METOPROLOL TARTRATE 25 MG TABLET GT SCH ×2 (08:28→20:17)
[2022-09-04] MEDS: AMIODARONE 100 MG GT SCH (08:29)
[2022-09-04] MEDS: PHENOBARBITAL 64.8 MG TABLET GT SCH ×2 (08:32→20:12)
[2022-09-04] MEDS: DIAZEPAM 5 MG TABLET GT SCH ×2 (08:34→20:13)
[2022-09-04] MEDS: NYSTATIN CREAM 30 GM TUBE TP SCH ×4 (08:35→20:13)
[2022-09-04] MEDS: REMEDY ESSENTIAL ZINC PASTE 113 GM TP SCH ×5 (08:35→20:13)
[2022-09-04] MEDS: NEOMY/BACITRA/POLYMYXIN B OINT UD PACKET TP SCH ×2 (08:35→20:14)
[2022-09-04] MEDS: CHLORHEXIDINE GLUCONATE 15 ML MOUTHWASH MM SCH (08:35)
[2022-09-04] MEDS: HYDROGEN PEROXIDE 3% 118 ML BOTTLE TP SCH ×2 (09:00→20:49)
[2022-09-04] MEDS: VITAL AF 1.2 1,000 ML LIQUID GT PRN (11:24)
[2022-09-04 20:00] VITALS: TEMP 97.8
[2022-09-04] MEDS: MAGNESIUM OXIDE 400 MG TABLET GT SCH (20:12)
[2022-09-04] MEDS: MULTIVIT, IRON, MIN NO. 8, FA TABLET GT SCH (20:12)
[2022-09-05] MEDS: POLYVINYL ALCOHOL OPHT DROPS 15 ML BOTTLE EACHEYE SCH ×2 (05:51→18:39)
[2022-09-05] MEDS: OMEPRAZOLE 40 MG CAPSULE.DR GT SCH (05:51)
[2022-09-05 07:06] VITALS: TEMP 97.8
[2022-09-05] MEDS: levETIRAcetam 500 MG/5 ML LIQUID UDC GT SCH ×2 (08:09→20:25)
[2022-09-05] MEDS: ASPIRIN 81 MG TAB.CHEW GT SCH (08:09)
[2022-09-05] MEDS: AMIODARONE 100 MG GT SCH (08:11)
[2022-09-05] MEDS: NYSTATIN CREAM 30 GM TUBE TP SCH ×4 (08:11→20:27)
[2022-09-05] MEDS: METOPROLOL TARTRATE 25 MG TABLET GT SCH ×2 (08:11→20:26)
[2022-09-05] MEDS: DIAZEPAM 5 MG TABLET GT SCH ×2 (08:11→20:27)
[2022-09-05] MEDS: PHENOBARBITAL 64.8 MG TABLET GT SCH ×2 (08:11→20:27)
[2022-09-05] MEDS: CHLORHEXIDINE GLUCONATE 15 ML MOUTHWASH MM SCH (08:11)
[2022-09-05] MEDS: REMEDY ESSENTIAL ZINC PASTE 113 GM TP SCH ×5 (08:12→20:27)
[2022-09-05] MEDS: NEOMY/BACITRA/POLYMYXIN B OINT UD PACKET TP SCH ×2 (08:13→20:27)
[2022-09-05] MEDS: HYDROGEN PEROXIDE 3% 118 ML BOTTLE TP SCH ×2 (08:55→21:01)
[2022-09-05] MEDS: VITAL AF 1.2 1,000 ML LIQUID GT PRN (16:24)
[2022-09-05 20:00] VITALS: TEMP 98.2
[2022-09-05] MEDS: MULTIVIT, IRON, MIN NO. 8, FA TABLET GT SCH (20:27)
[2022-09-05] MEDS: MAGNESIUM OXIDE 400 MG TABLET GT SCH (20:27)
[2022-09-05] MEDS: ACETAMINOPHEN 650 MG/20 ML UDC- SA PATIENTS-PAIN ONLY GT PRN (20:28)
[2022-09-06] MEDS: OMEPRAZOLE 40 MG CAPSULE.DR GT SCH (06:17)
[2022-09-06] MEDS: POLYVINYL ALCOHOL OPHT DROPS 15 ML BOTTLE EACHEYE SCH ×2 (06:17→17:14)
[2022-09-06] MEDS: NEOMY/BACITRA/POLYMYXIN B OINT UD PACKET TP SCH ×2 (09:00→20:19)
[2022-09-06] MEDS: REMEDY ESSENTIAL ZINC PASTE 113 GM TP SCH ×5 (09:00→20:19)
[2022-09-06] MEDS: NYSTATIN CREAM 30 GM TUBE TP SCH ×4 (09:00→20:18)
[2022-09-06] MEDS: ASPIRIN 81 MG TAB.CHEW GT SCH (09:35)
[2022-09-06] MEDS: levETIRAcetam 500 MG/5 ML LIQUID UDC GT SCH ×2 (09:35→20:13)
[2022-09-06] MEDS: AMIODARONE 100 MG GT SCH (09:39)
[2022-09-06] MEDS: DIAZEPAM 5 MG TABLET GT SCH ×2 (09:39→20:18)
[2022-09-06] MEDS: METOPROLOL TARTRATE 25 MG TABLET GT SCH ×3 (09:39→20:35)
[2022-09-06] MEDS: PHENOBARBITAL 64.8 MG TABLET GT SCH ×2 (09:39→20:17)
[2022-09-06] MEDS: CHLORHEXIDINE GLUCONATE 15 ML MOUTHWASH MM SCH (09:40)
[2022-09-06] MEDS: HYDROGEN PEROXIDE 3% 118 ML BOTTLE TP SCH ×2 (09:50→20:57)
[2022-09-06] MEDS: VITAL AF 1.2 1,000 ML LIQUID GT PRN (18:49)
[2022-09-06 20:00] VITALS: TEMP 97.8
[2022-09-06] MEDS: MULTIVIT, IRON, MIN NO. 8, FA TABLET GT SCH (20:17)
[2022-09-06] MEDS: MAGNESIUM OXIDE 400 MG TABLET GT SCH (20:17)
[2022-09-07] MEDS: POLYVINYL ALCOHOL OPHT DROPS 15 ML BOTTLE EACHEYE SCH ×2 (05:29→18:26)
[2022-09-07] MEDS: OMEPRAZOLE 40 MG CAPSULE.DR GT SCH (05:29)
[2022-09-07 07:30] VITALS: TEMP 97.1
[2022-09-07] MEDS: ASPIRIN 81 MG TAB.CHEW GT SCH (09:19)
[2022-09-07] MEDS: levETIRAcetam 500 MG/5 ML LIQUID UDC GT SCH ×2 (09:19→21:00)
[2022-09-07] MEDS: METOPROLOL TARTRATE 25 MG TABLET GT SCH ×2 (09:20→21:00)
[2022-09-07] MEDS: NYSTATIN CREAM 30 GM TUBE TP SCH ×4 (09:21→21:00)
[2022-09-07] MEDS: REMEDY ESSENTIAL ZINC PASTE 113 GM TP SCH ×5 (09:21→21:00)
[2022-09-07] MEDS: CHLORHEXIDINE GLUCONATE 15 ML MOUTHWASH MM SCH (09:21)
[2022-09-07] MEDS: DIAZEPAM 5 MG TABLET GT SCH ×2 (09:21→21:00)
[2022-09-07] MEDS: NEOMY/BACITRA/POLYMYXIN B OINT UD PACKET TP SCH ×2 (09:21→21:00)
[2022-09-07] MEDS: PHENOBARBITAL 64.8 MG TABLET GT SCH ×2 (09:21→21:00)
[2022-09-07] MEDS: AMIODARONE 100 MG GT SCH (09:21)
[2022-09-07] MEDS: HYDROGEN PEROXIDE 3% 118 ML BOTTLE TP SCH ×2 (09:23→20:43)
[2022-09-07 20:00] VITALS: TEMP 98
[2022-09-07] MEDS: MAGNESIUM OXIDE 400 MG TABLET GT SCH (21:00)
[2022-09-07] MEDS: MULTIVIT, IRON, MIN NO. 8, FA TABLET GT SCH (21:00)
[2022-09-08] MEDS: VITAL AF 1.2 1,000 ML LIQUID GT PRN (06:00)
[2022-09-08] MEDS: POLYVINYL ALCOHOL OPHT DROPS 15 ML BOTTLE EACHEYE SCH ×2 (06:50→17:51)
[2022-09-08] MEDS: OMEPRAZOLE 40 MG CAPSULE.DR GT SCH (06:50)
[2022-09-08 07:56] VITALS: TEMP 97.8
[2022-09-08 08:03] VITALS: TEMP 97.6
[2022-09-08] MEDS: levETIRAcetam 500 MG/5 ML LIQUID UDC GT SCH ×2 (08:26→21:00)
[2022-09-08] MEDS: ASPIRIN 81 MG TAB.CHEW GT SCH (08:26)
[2022-09-08] MEDS: METOPROLOL TARTRATE 25 MG TABLET GT SCH ×2 (08:27→21:00)
[2022-09-08] MEDS: NYSTATIN CREAM 30 GM TUBE TP SCH ×4 (08:28→21:00)
[2022-09-08] MEDS: AMIODARONE 100 MG GT SCH (08:28)
[2022-09-08] MEDS: CHLORHEXIDINE GLUCONATE 15 ML MOUTHWASH MM SCH (08:28)
[2022-09-08] MEDS: REMEDY ESSENTIAL ZINC PASTE 113 GM TP SCH ×5 (08:29→21:00)
[2022-09-08] MEDS: DIAZEPAM 5 MG TABLET GT SCH ×2 (08:30→21:00)
[2022-09-08] MEDS: PHENOBARBITAL 64.8 MG TABLET GT SCH ×2 (08:30→21:00)
[2022-09-08] MEDS: NEOMY/BACITRA/POLYMYXIN B OINT UD PACKET TP SCH ×2 (09:00→21:00)
[2022-09-08] MEDS: HYDROGEN PEROXIDE 3% 118 ML BOTTLE TP SCH ×2 (09:08→19:28)
[2022-09-08 20:00] VITALS: TEMP 98
[2022-09-08] MEDS: MULTIVIT, IRON, MIN NO. 8, FA TABLET GT SCH (21:00)
[2022-09-08] MEDS: MAGNESIUM OXIDE 400 MG TABLET GT SCH (21:00)
[2022-09-09 08:05] VITALS: TEMP 98.5
[2022-09-09] MEDS: HYDROGEN PEROXIDE 3% 118 ML BOTTLE TP SCH ×2 (09:00→19:12)
[2022-09-09] MEDS: levETIRAcetam 500 MG/5 ML LIQUID UDC GT SCH ×2 (09:15→20:16)
[2022-09-09] MEDS: ASPIRIN 81 MG TAB.CHEW GT SCH (09:15)
[2022-09-09] MEDS: PHENOBARBITAL 64.8 MG TABLET GT SCH ×2 (09:16→20:17)
[2022-09-09] MEDS: NYSTATIN CREAM 30 GM TUBE TP SCH ×4 (09:16→20:17)
[2022-09-09] MEDS: DIAZEPAM 5 MG TABLET GT SCH ×2 (09:16→20:17)
[2022-09-09] MEDS: CHLORHEXIDINE GLUCONATE 15 ML MOUTHWASH MM SCH (09:16)
[2022-09-09] MEDS: METOPROLOL TARTRATE 25 MG TABLET GT SCH ×2 (09:16→20:17)
[2022-09-09] MEDS: AMIODARONE 100 MG GT SCH (09:16)
[2022-09-09] MEDS: REMEDY ESSENTIAL ZINC PASTE 113 GM TP SCH ×5 (09:17→20:17)
[2022-09-09] MEDS: NEOMY/BACITRA/POLYMYXIN B OINT UD PACKET TP SCH ×2 (09:17→20:17)
[2022-09-09] MEDS: POLYVINYL ALCOHOL OPHT DROPS 15 ML BOTTLE EACHEYE SCH ×2 (15:50→18:35)
[2022-09-09] MEDS: VITAL AF 1.2 1,000 ML LIQUID GT PRN (17:16)
[2022-09-09 20:15] VITALS: TEMP 98.7
[2022-09-09] MEDS: MULTIVIT, IRON, MIN NO. 8, FA TABLET GT SCH (20:17)
[2022-09-09] MEDS: MAGNESIUM OXIDE 400 MG TABLET GT SCH (20:17)
[2022-09-10] MEDS: OMEPRAZOLE 40 MG CAPSULE.DR GT SCH ×2 (05:30→05:34)
[2022-09-10] MEDS: POLYVINYL ALCOHOL OPHT DROPS 15 ML BOTTLE EACHEYE SCH ×2 (05:32→17:30)
[2022-09-10 07:14] VITALS: TEMP 97.7
[2022-09-10] MEDS: HYDROGEN PEROXIDE 3% 118 ML BOTTLE TP SCH ×2 (09:00→19:25)
[2022-09-10] MEDS: PHENOBARBITAL 64.8 MG TABLET GT SCH ×2 (09:41→20:45)
[2022-09-10] MEDS: CHLORHEXIDINE GLUCONATE 15 ML MOUTHWASH MM SCH (09:41)
[2022-09-10] MEDS: AMIODARONE 100 MG GT SCH (09:41)
[2022-09-10] MEDS: METOPROLOL TARTRATE 25 MG TABLET GT SCH ×2 (09:41→20:45)
[2022-09-10] MEDS: REMEDY ESSENTIAL ZINC PASTE 113 GM TP SCH ×5 (09:41→20:46)
[2022-09-10] MEDS: levETIRAcetam 500 MG/5 ML LIQUID UDC GT SCH ×2 (09:41→20:45)
[2022-09-10] MEDS: NYSTATIN CREAM 30 GM TUBE TP SCH ×4 (09:41→20:46)
[2022-09-10] MEDS: DIAZEPAM 5 MG TABLET GT SCH ×2 (09:41→20:46)
[2022-09-10] MEDS: ASPIRIN 81 MG TAB.CHEW GT SCH (09:41)
[2022-09-10 19:55] VITALS: TEMP 98
[2022-09-10] MEDS: MAGNESIUM OXIDE 400 MG TABLET GT SCH (20:45)
[2022-09-10] MEDS: MULTIVIT, IRON, MIN NO. 8, FA TABLET GT SCH (20:46)
[2022-09-11] MEDS: OMEPRAZOLE 40 MG CAPSULE.DR GT SCH (05:16)
[2022-09-11] MEDS: POLYVINYL ALCOHOL OPHT DROPS 15 ML BOTTLE EACHEYE SCH ×2 (05:16→17:32)
[2022-09-11 07:12] VITALS: TEMP 97.1
[2022-09-11] MEDS: HYDROGEN PEROXIDE 3% 118 ML BOTTLE TP SCH ×2 (09:00→20:29)
[2022-09-11] MEDS: ASPIRIN 81 MG TAB.CHEW GT SCH (09:34)
[2022-09-11] MEDS: levETIRAcetam 500 MG/5 ML LIQUID UDC GT SCH ×2 (09:34→21:58)
[2022-09-11] MEDS: AMIODARONE 100 MG GT SCH (09:35)
[2022-09-11] MEDS: CHLORHEXIDINE GLUCONATE 15 ML MOUTHWASH MM SCH (09:35)
[2022-09-11] MEDS: PHENOBARBITAL 64.8 MG TABLET GT SCH ×2 (09:35→21:58)
[2022-09-11] MEDS: METOPROLOL TARTRATE 25 MG TABLET GT SCH ×2 (09:35→21:58)
[2022-09-11] MEDS: DIAZEPAM 5 MG TABLET GT SCH ×2 (09:35→21:58)
[2022-09-11] MEDS: NYSTATIN CREAM 30 GM TUBE TP SCH ×4 (09:35→21:59)
[2022-09-11] MEDS: REMEDY ESSENTIAL ZINC PASTE 113 GM TP SCH ×5 (09:35→21:59)
[2022-09-11 20:35] VITALS: TEMP 98.2
[2022-09-11] MEDS: MAGNESIUM OXIDE 400 MG TABLET GT SCH (21:58)
[2022-09-11] MEDS: MULTIVIT, IRON, MIN NO. 8, FA TABLET GT SCH (21:58)
[2022-09-12] MEDS: OMEPRAZOLE 40 MG CAPSULE.DR GT SCH (05:40)
[2022-09-12] MEDS: POLYVINYL ALCOHOL OPHT DROPS 15 ML BOTTLE EACHEYE SCH ×2 (05:40→17:48)
[2022-09-12 07:16] VITALS: TEMP 97.7
[2022-09-12] MEDS: HYDROGEN PEROXIDE 3% 118 ML BOTTLE TP SCH ×2 (08:30→21:39)
[2022-09-12] MEDS: levETIRAcetam 500 MG/5 ML LIQUID UDC GT SCH ×2 (08:34→20:22)
[2022-09-12] MEDS: ASPIRIN 81 MG TAB.CHEW GT SCH (08:34)
[2022-09-12] MEDS: CHLORHEXIDINE GLUCONATE 15 ML MOUTHWASH MM SCH (08:35)
[2022-09-12] MEDS: PHENOBARBITAL 64.8 MG TABLET GT SCH ×2 (08:35→21:00)
[2022-09-12] MEDS: METOPROLOL TARTRATE 25 MG TABLET GT SCH ×2 (08:35→21:00)
[2022-09-12] MEDS: REMEDY ESSENTIAL ZINC PASTE 113 GM TP SCH ×5 (08:35→20:22)
[2022-09-12] MEDS: AMIODARONE 100 MG GT SCH (08:35)
[2022-09-12] MEDS: DIAZEPAM 5 MG TABLET GT SCH ×2 (08:35→21:00)
[2022-09-12] MEDS: NYSTATIN CREAM 30 GM TUBE TP SCH ×4 (08:35→20:22)
[2022-09-12] MEDS: MULTIVIT, IRON, MIN NO. 8, FA TABLET GT SCH (20:22)
[2022-09-12] MEDS: MAGNESIUM OXIDE 400 MG TABLET GT SCH (20:22)
[2022-09-12 21:30] VITALS: TEMP 98.5
[2022-09-13] MEDS: OMEPRAZOLE 40 MG CAPSULE.DR GT SCH (05:59)
[2022-09-13] MEDS: POLYVINYL ALCOHOL OPHT DROPS 15 ML BOTTLE EACHEYE SCH ×2 (05:59→18:48)
[2022-09-13 08:02] VITALS: TEMP 98.3
[2022-09-13] MEDS: HYDROGEN PEROXIDE 3% 118 ML BOTTLE TP SCH ×2 (09:00→19:47)
[2022-09-13] MEDS: METOPROLOL TARTRATE 25 MG TABLET GT SCH ×2 (09:53→21:00)
[2022-09-13] MEDS: levETIRAcetam 500 MG/5 ML LIQUID UDC GT SCH ×2 (09:53→21:19)
[2022-09-13] MEDS: PHENOBARBITAL 64.8 MG TABLET GT SCH ×2 (09:53→21:19)
[2022-09-13] MEDS: CHLORHEXIDINE GLUCONATE 15 ML MOUTHWASH MM SCH (09:53)
[2022-09-13] MEDS: DIAZEPAM 5 MG TABLET GT SCH ×2 (09:53→21:19)
[2022-09-13] MEDS: NYSTATIN CREAM 30 GM TUBE TP SCH ×4 (09:53→21:20)
[2022-09-13] MEDS: ASPIRIN 81 MG TAB.CHEW GT SCH (09:53)
[2022-09-13] MEDS: AMIODARONE 100 MG GT SCH (09:53)
[2022-09-13] MEDS: REMEDY ESSENTIAL ZINC PASTE 113 GM TP SCH ×5 (09:54→21:20)
[2022-09-13 20:00] VITALS: TEMP 97.8
[2022-09-13] MEDS: MULTIVIT, IRON, MIN NO. 8, FA TABLET GT SCH (21:19)
[2022-09-13] MEDS: MAGNESIUM OXIDE 400 MG TABLET GT SCH (21:19)
[2022-09-13] MEDS: VITAL AF 1.2 1,000 ML LIQUID GT PRN (21:20)
[2022-09-14] MEDS: POLYVINYL ALCOHOL OPHT DROPS 15 ML BOTTLE EACHEYE SCH ×2 (05:33→17:09)
[2022-09-14] MEDS: OMEPRAZOLE 40 MG CAPSULE.DR GT SCH (05:33)
[2022-09-14 07:35] VITALS: TEMP 97.4
[2022-09-14] MEDS: HYDROGEN PEROXIDE 3% 118 ML BOTTLE TP SCH ×2 (09:00→21:26)
[2022-09-14] MEDS: levETIRAcetam 500 MG/5 ML LIQUID UDC GT SCH ×2 (09:15→21:33)
[2022-09-14] MEDS: ASPIRIN 81 MG TAB.CHEW GT SCH (09:15)
[2022-09-14] MEDS: PHENOBARBITAL 64.8 MG TABLET GT SCH ×2 (09:16→21:33)
[2022-09-14] MEDS: NYSTATIN CREAM 30 GM TUBE TP SCH ×4 (09:16→21:33)
[2022-09-14] MEDS: METOPROLOL TARTRATE 25 MG TABLET GT SCH ×2 (09:16→21:33)
[2022-09-14] MEDS: DIAZEPAM 5 MG TABLET GT SCH ×2 (09:16→21:33)
[2022-09-14] MEDS: REMEDY ESSENTIAL ZINC PASTE 113 GM TP SCH ×5 (09:16→21:34)
[2022-09-14] MEDS: AMIODARONE 100 MG GT SCH (09:16)
[2022-09-14] MEDS: CHLORHEXIDINE GLUCONATE 15 ML MOUTHWASH MM SCH (09:16)
[2022-09-14 20:12] VITALS: TEMP 98.8
[2022-09-14] MEDS: MAGNESIUM OXIDE 400 MG TABLET GT SCH (21:33)
[2022-09-14] MEDS: MULTIVIT, IRON, MIN NO. 8, FA TABLET GT SCH (21:33)
[2022-09-15] MEDS: VITAL AF 1.2 1,000 ML LIQUID GT PRN (01:55)
[2022-09-15] MEDS: OMEPRAZOLE 40 MG CAPSULE.DR GT SCH (05:15)
[2022-09-15] MEDS: POLYVINYL ALCOHOL OPHT DROPS 15 ML BOTTLE EACHEYE SCH ×2 (05:15→17:34)
[2022-09-15 07:54] VITALS: TEMP 97.7
[2022-09-15] MEDS: HYDROGEN PEROXIDE 3% 118 ML BOTTLE TP SCH ×2 (08:24→19:00)
[2022-09-15] MEDS: METOPROLOL TARTRATE 25 MG TABLET GT SCH ×2 (09:00→21:00)
[2022-09-15] MEDS: ASPIRIN 81 MG TAB.CHEW GT SCH (09:01)
[2022-09-15] MEDS: levETIRAcetam 500 MG/5 ML LIQUID UDC GT SCH ×2 (09:01→21:59)
[2022-09-15] MEDS: NYSTATIN CREAM 30 GM TUBE TP SCH ×4 (09:02→21:00)
[2022-09-15] MEDS: DIAZEPAM 5 MG TABLET GT SCH ×2 (09:02→21:00)
[2022-09-15] MEDS: PHENOBARBITAL 64.8 MG TABLET GT SCH ×2 (09:02→21:00)
[2022-09-15] MEDS: CHLORHEXIDINE GLUCONATE 15 ML MOUTHWASH MM SCH (09:02)
[2022-09-15] MEDS: AMIODARONE 100 MG GT SCH (09:02)
[2022-09-15] MEDS: REMEDY ESSENTIAL ZINC PASTE 113 GM TP SCH ×5 (09:03→21:00)
[2022-09-15 20:19] VITALS: TEMP 97.6
[2022-09-15] MEDS: MAGNESIUM OXIDE 400 MG TABLET GT SCH (21:00)
[2022-09-15] MEDS: MULTIVIT, IRON, MIN NO. 8, FA TABLET GT SCH (21:00)
[2022-09-16] MEDS: OMEPRAZOLE 40 MG CAPSULE.DR GT SCH (06:10)
[2022-09-16] MEDS: POLYVINYL ALCOHOL OPHT DROPS 15 ML BOTTLE EACHEYE SCH ×2 (06:10→18:08)
[2022-09-16 07:36] VITALS: TEMP 98.5
[2022-09-16] MEDS: HYDROGEN PEROXIDE 3% 118 ML BOTTLE TP SCH ×2 (08:29→21:04)
[2022-09-16] MEDS: ASPIRIN 81 MG TAB.CHEW GT SCH (08:53)
[2022-09-16] MEDS: levETIRAcetam 500 MG/5 ML LIQUID UDC GT SCH ×2 (08:55→21:00)
[2022-09-16] MEDS: METOPROLOL TARTRATE 25 MG TABLET GT SCH ×2 (09:00→21:00)
[2022-09-16] MEDS: PHENOBARBITAL 64.8 MG TABLET GT SCH ×2 (09:06→21:00)
[2022-09-16] MEDS: NYSTATIN CREAM 30 GM TUBE TP SCH ×4 (09:06→21:00)
[2022-09-16] MEDS: REMEDY ESSENTIAL ZINC PASTE 113 GM TP SCH ×5 (09:06→21:00)
[2022-09-16] MEDS: DIAZEPAM 5 MG TABLET GT SCH ×2 (09:06→21:00)
[2022-09-16] MEDS: AMIODARONE 100 MG GT SCH (09:08)
[2022-09-16] MEDS: CHLORHEXIDINE GLUCONATE 15 ML MOUTHWASH MM SCH (10:36)
[2022-09-16] MEDS: VITAL AF 1.2 1,000 ML LIQUID GT PRN (16:35)
[2022-09-16 20:08] VITALS: TEMP 97.4
[2022-09-16] MEDS: MULTIVIT, IRON, MIN NO. 8, FA TABLET GT SCH (21:00)
[2022-09-16] MEDS: MAGNESIUM OXIDE 400 MG TABLET GT SCH (21:00)
[2022-09-17] MEDS: POLYVINYL ALCOHOL OPHT DROPS 15 ML BOTTLE EACHEYE SCH ×2 (05:48→17:33)
[2022-09-17] MEDS: OMEPRAZOLE 40 MG CAPSULE.DR GT SCH (05:48)
[2022-09-17] MEDS: HYDROGEN PEROXIDE 3% 118 ML BOTTLE TP SCH ×2 (08:04→21:31)
[2022-09-17] MEDS: ASPIRIN 81 MG TAB.CHEW GT SCH (08:43)
[2022-09-17] MEDS: levETIRAcetam 500 MG/5 ML LIQUID UDC GT SCH ×2 (08:44→21:00)
[2022-09-17] MEDS: AMIODARONE 100 MG GT SCH (08:45)
[2022-09-17] MEDS: METOPROLOL TARTRATE 25 MG TABLET GT SCH ×2 (08:45→21:00)
[2022-09-17] MEDS: NYSTATIN CREAM 30 GM TUBE TP SCH ×4 (08:46→21:00)
[2022-09-17] MEDS: REMEDY ESSENTIAL ZINC PASTE 113 GM TP SCH ×5 (08:46→21:00)
[2022-09-17] MEDS: CHLORHEXIDINE GLUCONATE 15 ML MOUTHWASH MM SCH (08:46)
[2022-09-17] MEDS: PHENOBARBITAL 64.8 MG TABLET GT SCH ×2 (08:51→21:00)
[2022-09-17] MEDS: DIAZEPAM 5 MG TABLET GT SCH ×2 (08:51→21:00)
[2022-09-17 09:09] VITALS: TEMP 97.8
[2022-09-17] MEDS: VITAL AF 1.2 1,000 ML LIQUID GT PRN (14:58)
[2022-09-17 20:00] VITALS: TEMP 98.6
[2022-09-17] MEDS: MULTIVIT, IRON, MIN NO. 8, FA TABLET GT SCH (21:00)
[2022-09-17] MEDS: MAGNESIUM OXIDE 400 MG TABLET GT SCH (21:00)
[2022-09-18] MEDS: OMEPRAZOLE 40 MG CAPSULE.DR GT SCH (06:16)
[2022-09-18] MEDS: POLYVINYL ALCOHOL OPHT DROPS 15 ML BOTTLE EACHEYE SCH ×3 (06:16→22:24)
[2022-09-18 07:05] VITALS: TEMP 97.9
[2022-09-18] MEDS: HYDROGEN PEROXIDE 3% 118 ML BOTTLE TP SCH ×2 (08:23→20:22)
[2022-09-18] MEDS: REMEDY ESSENTIAL ZINC PASTE 113 GM TP SCH ×4 (09:00→21:00)
[2022-09-18] MEDS: levETIRAcetam 500 MG/5 ML LIQUID UDC GT SCH ×2 (09:00→21:00)
[2022-09-18] MEDS: DIAZEPAM 5 MG TABLET GT SCH ×2 (09:00→21:00)
[2022-09-18] MEDS: AMIODARONE 100 MG GT SCH (09:00)
[2022-09-18] MEDS: CHLORHEXIDINE GLUCONATE 15 ML MOUTHWASH MM SCH (09:00)
[2022-09-18] MEDS: ASPIRIN 81 MG TAB.CHEW GT SCH (09:00)
[2022-09-18] MEDS: PHENOBARBITAL 64.8 MG TABLET GT SCH ×2 (09:00→21:00)
[2022-09-18] MEDS: NYSTATIN CREAM 30 GM TUBE TP SCH ×2 (09:00)
[2022-09-18] MEDS: METOPROLOL TARTRATE 25 MG TABLET GT SCH ×2 (09:00→21:00)
[2022-09-18 20:00] VITALS: TEMP 98.1
[2022-09-18] MEDS: MULTIVIT, IRON, MIN NO. 8, FA TABLET GT SCH (21:00)
[2022-09-18] MEDS: MAGNESIUM OXIDE 400 MG TABLET GT SCH (21:00)
[2022-09-19] MEDS: VITAL AF 1.2 1,000 ML LIQUID GT PRN (01:08)
[2022-09-19] MEDS: OMEPRAZOLE 40 MG CAPSULE.DR GT SCH (05:33)
[2022-09-19 07:32] VITALS: TEMP 97.3
[2022-09-19] MEDS: HYDROGEN PEROXIDE 3% 118 ML BOTTLE TP SCH ×2 (07:34→19:21)
[2022-09-19] MEDS: PHENOBARBITAL 64.8 MG TABLET GT SCH ×2 (08:41→20:49)
[2022-09-19] MEDS: METOPROLOL TARTRATE 25 MG TABLET GT SCH ×2 (08:41→20:49)
[2022-09-19] MEDS: ASPIRIN 81 MG TAB.CHEW GT SCH (08:41)
[2022-09-19] MEDS: levETIRAcetam 500 MG/5 ML LIQUID UDC GT SCH ×2 (08:41→20:48)
[2022-09-19] MEDS: REMEDY ESSENTIAL ZINC PASTE 113 GM TP SCH ×3 (08:42→20:50)
[2022-09-19] MEDS: DIAZEPAM 5 MG TABLET GT SCH ×2 (08:42→20:50)
[2022-09-19] MEDS: AMIODARONE 100 MG GT SCH (08:42)
[2022-09-19] MEDS: CHLORHEXIDINE GLUCONATE 15 ML MOUTHWASH MM SCH (08:42)
[2022-09-19] MEDS: POLYVINYL ALCOHOL OPHT DROPS 15 ML BOTTLE EACHEYE SCH (17:19)
[2022-09-19] MEDS: MAGNESIUM OXIDE 400 MG TABLET GT SCH (20:49)
[2022-09-19] MEDS: MULTIVIT, IRON, MIN NO. 8, FA TABLET GT SCH (20:50)
[2022-09-19 21:10] VITALS: TEMP 98.3
[2022-09-20] MEDS: VITAL AF 1.2 1,000 ML LIQUID GT PRN (04:03)
[2022-09-20] MEDS: POLYVINYL ALCOHOL OPHT DROPS 15 ML BOTTLE EACHEYE SCH ×2 (05:15→18:45)
[2022-09-20] MEDS: OMEPRAZOLE 40 MG CAPSULE.DR GT SCH (05:15)
[2022-09-20] MEDS: HYDROGEN PEROXIDE 3% 118 ML BOTTLE TP SCH ×2 (07:38→20:52)
[2022-09-20 07:53] VITALS: TEMP 98.3
[2022-09-20] MEDS: ASPIRIN 81 MG TAB.CHEW GT SCH (09:20)
[2022-09-20] MEDS: levETIRAcetam 500 MG/5 ML LIQUID UDC GT SCH ×2 (09:21→21:18)
[2022-09-20] MEDS: DIAZEPAM 5 MG TABLET GT SCH ×2 (09:22→21:27)
[2022-09-20] MEDS: PHENOBARBITAL 64.8 MG TABLET GT SCH ×2 (09:22→21:18)
[2022-09-20] MEDS: METOPROLOL TARTRATE 25 MG TABLET GT SCH ×2 (09:22→21:18)
[2022-09-20] MEDS: AMIODARONE 100 MG GT SCH (09:22)
[2022-09-20] MEDS: REMEDY ESSENTIAL ZINC PASTE 113 GM TP SCH ×3 (09:23→21:19)
[2022-09-20] MEDS: CHLORHEXIDINE GLUCONATE 15 ML MOUTHWASH MM SCH (09:23)
[2022-09-20 20:00] VITALS: TEMP 97.6
[2022-09-20] MEDS: MULTIVIT, IRON, MIN NO. 8, FA TABLET GT SCH (21:19)
[2022-09-20] MEDS: MAGNESIUM OXIDE 400 MG TABLET GT SCH (21:19)
[2022-09-21] MEDS: OMEPRAZOLE 40 MG CAPSULE.DR GT SCH (05:39)
[2022-09-21] MEDS: POLYVINYL ALCOHOL OPHT DROPS 15 ML BOTTLE EACHEYE SCH ×2 (05:39→18:00)
[2022-09-21 07:37] VITALS: TEMP 97.2
[2022-09-21] MEDS: ASPIRIN 81 MG TAB.CHEW GT SCH (09:11)
[2022-09-21] MEDS: levETIRAcetam 500 MG/5 ML LIQUID UDC GT SCH ×2 (09:11→21:34)
[2022-09-21] MEDS: PHENOBARBITAL 64.8 MG TABLET GT SCH ×2 (09:11→21:35)
[2022-09-21] MEDS: DIAZEPAM 5 MG TABLET GT SCH ×2 (09:12→21:00)
[2022-09-21] MEDS: AMIODARONE 100 MG GT SCH (09:12)
[2022-09-21] MEDS: METOPROLOL TARTRATE 25 MG TABLET GT SCH ×2 (09:12→21:35)
[2022-09-21] MEDS: REMEDY ESSENTIAL ZINC PASTE 113 GM TP SCH ×3 (09:13→21:00)
[2022-09-21] MEDS: CHLORHEXIDINE GLUCONATE 15 ML MOUTHWASH MM SCH (09:13)
[2022-09-21] MEDS: HYDROGEN PEROXIDE 3% 118 ML BOTTLE TP SCH ×2 (09:50→19:25)
[2022-09-21 20:40] VITALS: TEMP 97.8
[2022-09-21] MEDS: MAGNESIUM OXIDE 400 MG TABLET GT SCH (21:00)
[2022-09-21] MEDS: MULTIVIT, IRON, MIN NO. 8, FA TABLET GT SCH (21:00)
[2022-09-22] MEDS: OMEPRAZOLE 40 MG CAPSULE.DR GT SCH (05:46)
[2022-09-22] MEDS: POLYVINYL ALCOHOL OPHT DROPS 15 ML BOTTLE EACHEYE SCH ×2 (05:46→18:05)
[2022-09-22 07:41] VITALS: TEMP 97.8
[2022-09-22] MEDS: ASPIRIN 81 MG TAB.CHEW GT SCH (08:16)
[2022-09-22] MEDS: levETIRAcetam 500 MG/5 ML LIQUID UDC GT SCH ×2 (08:17→21:54)
[2022-09-22] MEDS: DIAZEPAM 5 MG TABLET GT SCH ×2 (08:17→21:00)
[2022-09-22] MEDS: PHENOBARBITAL 64.8 MG TABLET GT SCH ×2 (08:17→21:00)
[2022-09-22] MEDS: AMIODARONE 100 MG GT SCH (08:17)
[2022-09-22] MEDS: CHLORHEXIDINE GLUCONATE 15 ML MOUTHWASH MM SCH (08:18)
[2022-09-22] MEDS: REMEDY ESSENTIAL ZINC PASTE 113 GM TP SCH ×3 (08:18→22:00)
[2022-09-22] MEDS: METOPROLOL TARTRATE 25 MG TABLET GT SCH ×2 (08:23→21:00)
[2022-09-22] MEDS: HYDROGEN PEROXIDE 3% 118 ML BOTTLE TP SCH ×2 (09:00→19:11)
[2022-09-22 20:00] VITALS: TEMP 97.5
[2022-09-22] MEDS: MULTIVIT, IRON, MIN NO. 8, FA TABLET GT SCH (21:59)
[2022-09-22] MEDS: MAGNESIUM OXIDE 400 MG TABLET GT SCH (21:59)
[2022-09-23] MEDS: OMEPRAZOLE 40 MG CAPSULE.DR GT SCH (06:14)
[2022-09-23] MEDS: POLYVINYL ALCOHOL OPHT DROPS 15 ML BOTTLE EACHEYE SCH ×2 (06:14→18:38)
[2022-09-23 07:45] VITALS: TEMP 98.1
[2022-09-23] MEDS: PHENOBARBITAL 64.8 MG TABLET GT SCH ×2 (09:29→21:00)
[2022-09-23] MEDS: AMIODARONE 100 MG GT SCH (09:29)
[2022-09-23] MEDS: levETIRAcetam 500 MG/5 ML LIQUID UDC GT SCH ×2 (09:29→21:00)
[2022-09-23] MEDS: ASPIRIN 81 MG TAB.CHEW GT SCH (09:29)
[2022-09-23] MEDS: DIAZEPAM 5 MG TABLET GT SCH ×2 (09:29→21:00)
[2022-09-23] MEDS: REMEDY ESSENTIAL ZINC PASTE 113 GM TP SCH ×3 (09:30→21:00)
[2022-09-23] MEDS: CHLORHEXIDINE GLUCONATE 15 ML MOUTHWASH MM SCH (09:31)
[2022-09-23] MEDS: METOPROLOL TARTRATE 25 MG TABLET GT SCH ×2 (09:32→21:00)
[2022-09-23] MEDS: HYDROGEN PEROXIDE 3% 118 ML BOTTLE TP SCH ×2 (09:37→19:18)
[2022-09-23] MEDS: MULTIVIT, IRON, MIN NO. 8, FA TABLET GT SCH (21:00)
[2022-09-23] MEDS: MAGNESIUM OXIDE 400 MG TABLET GT SCH (21:00)
[2022-09-24] MEDS: OMEPRAZOLE 40 MG CAPSULE.DR GT SCH (06:00)
[2022-09-24] MEDS: POLYVINYL ALCOHOL OPHT DROPS 15 ML BOTTLE EACHEYE SCH ×2 (06:00→17:11)
[2022-09-24] MEDS: HYDROGEN PEROXIDE 3% 118 ML BOTTLE TP SCH ×2 (08:11→21:00)
[2022-09-24] MEDS: ASPIRIN 81 MG TAB.CHEW GT SCH (08:15)
[2022-09-24] MEDS: levETIRAcetam 500 MG/5 ML LIQUID UDC GT SCH ×2 (08:15→20:21)
[2022-09-24] MEDS: METOPROLOL TARTRATE 25 MG TABLET GT SCH ×2 (08:17→20:21)
[2022-09-24] MEDS: AMIODARONE 100 MG GT SCH (08:17)
[2022-09-24] MEDS: PHENOBARBITAL 64.8 MG TABLET GT SCH ×2 (08:17→20:21)
[2022-09-24] MEDS: DIAZEPAM 5 MG TABLET GT SCH ×2 (08:18→20:22)
[2022-09-24] MEDS: CHLORHEXIDINE GLUCONATE 15 ML MOUTHWASH MM SCH (08:18)
[2022-09-24] MEDS: REMEDY ESSENTIAL ZINC PASTE 113 GM TP SCH ×3 (08:18→20:22)
[2022-09-24] MEDS: VITAL AF 1.2 1,000 ML LIQUID GT PRN (08:21)
[2022-09-24 11:02] VITALS: TEMP 97
[2022-09-24 20:16] VITALS: TEMP 98.4
[2022-09-24] MEDS: MAGNESIUM OXIDE 400 MG TABLET GT SCH (20:21)
[2022-09-24] MEDS: MULTIVIT, IRON, MIN NO. 8, FA TABLET GT SCH (20:22)
[2022-09-25] MEDS: OMEPRAZOLE 40 MG CAPSULE.DR GT SCH (05:26)
[2022-09-25] MEDS: POLYVINYL ALCOHOL OPHT DROPS 15 ML BOTTLE EACHEYE SCH ×2 (05:26→17:23)
[2022-09-25] MEDS: HYDROGEN PEROXIDE 3% 118 ML BOTTLE TP SCH ×2 (08:18→19:25)
[2022-09-25] MEDS: ASPIRIN 81 MG TAB.CHEW GT SCH (08:34)
[2022-09-25] MEDS: levETIRAcetam 500 MG/5 ML LIQUID UDC GT SCH ×2 (08:34→21:47)
[2022-09-25] MEDS: METOPROLOL TARTRATE 25 MG TABLET GT SCH ×2 (08:35→21:00)
[2022-09-25] MEDS: AMIODARONE 100 MG GT SCH (08:36)
[2022-09-25] MEDS: DIAZEPAM 5 MG TABLET GT SCH ×2 (08:36→21:49)
[2022-09-25] MEDS: PHENOBARBITAL 64.8 MG TABLET GT SCH ×2 (08:36→21:48)
[2022-09-25] MEDS: REMEDY ESSENTIAL ZINC PASTE 113 GM TP SCH ×3 (08:36→21:49)
[2022-09-25] MEDS: CHLORHEXIDINE GLUCONATE 15 ML MOUTHWASH MM SCH (08:36)
[2022-09-25 11:21] VITALS: TEMP 97
[2022-09-25 20:28] VITALS: TEMP 97
[2022-09-25] MEDS: MULTIVIT, IRON, MIN NO. 8, FA TABLET GT SCH (21:49)
[2022-09-25] MEDS: MAGNESIUM OXIDE 400 MG TABLET GT SCH (21:49)
[2022-09-26] MEDS: POLYVINYL ALCOHOL OPHT DROPS 15 ML BOTTLE EACHEYE SCH ×2 (05:17→17:21)
[2022-09-26] MEDS: OMEPRAZOLE 40 MG CAPSULE.DR GT SCH (05:18)
[2022-09-26] MEDS: HYDROGEN PEROXIDE 3% 118 ML BOTTLE TP SCH ×2 (08:16→20:39)
[2022-09-26 08:28] VITALS: TEMP 97.6
[2022-09-26] MEDS: ASPIRIN 81 MG TAB.CHEW GT SCH (08:56)
[2022-09-26] MEDS: levETIRAcetam 500 MG/5 ML LIQUID UDC GT SCH ×2 (08:56→21:34)
[2022-09-26] MEDS: METOPROLOL TARTRATE 25 MG TABLET GT SCH ×2 (08:58→21:34)
[2022-09-26] MEDS: AMIODARONE 100 MG GT SCH (08:59)
[2022-09-26] MEDS: PHENOBARBITAL 64.8 MG TABLET GT SCH ×2 (08:59→21:34)
[2022-09-26] MEDS: DIAZEPAM 5 MG TABLET GT SCH ×2 (09:00→21:34)
[2022-09-26] MEDS: CHLORHEXIDINE GLUCONATE 15 ML MOUTHWASH MM SCH (09:00)
[2022-09-26] MEDS: REMEDY ESSENTIAL ZINC PASTE 113 GM TP SCH ×3 (09:00→21:34)
[2022-09-26 20:30] VITALS: TEMP 98.4
[2022-09-26] MEDS: MAGNESIUM OXIDE 400 MG TABLET GT SCH (21:34)
[2022-09-26] MEDS: MULTIVIT, IRON, MIN NO. 8, FA TABLET GT SCH (21:34)
[2022-09-27] MEDS: OMEPRAZOLE 40 MG CAPSULE.DR GT SCH (06:00)
[2022-09-27] MEDS: POLYVINYL ALCOHOL OPHT DROPS 15 ML BOTTLE EACHEYE SCH ×2 (06:00→17:04)
[2022-09-27 07:27] VITALS: TEMP 97.8
[2022-09-27] MEDS: HYDROGEN PEROXIDE 3% 118 ML BOTTLE TP SCH ×2 (09:00→19:54)
[2022-09-27] MEDS: ASPIRIN 81 MG TAB.CHEW GT SCH (09:01)
[2022-09-27] MEDS: PHENOBARBITAL 64.8 MG TABLET GT SCH ×2 (09:02→21:18)
[2022-09-27] MEDS: DIAZEPAM 5 MG TABLET GT SCH ×2 (09:02→21:18)
[2022-09-27] MEDS: METOPROLOL TARTRATE 25 MG TABLET GT SCH ×2 (09:02→21:18)
[2022-09-27] MEDS: AMIODARONE 100 MG GT SCH (09:02)
[2022-09-27] MEDS: levETIRAcetam 500 MG/5 ML LIQUID UDC GT SCH ×2 (09:02→21:18)
[2022-09-27] MEDS: REMEDY ESSENTIAL ZINC PASTE 113 GM TP SCH ×2 (09:03)
[2022-09-27] MEDS: CHLORHEXIDINE GLUCONATE 15 ML MOUTHWASH MM SCH (09:03)
[2022-09-27 20:04] VITALS: TEMP 98
[2022-09-27] MEDS: MULTIVIT, IRON, MIN NO. 8, FA TABLET GT SCH (21:18)
[2022-09-27] MEDS: MAGNESIUM OXIDE 400 MG TABLET GT SCH (21:18)
[2022-09-28] MEDS: OMEPRAZOLE 40 MG CAPSULE.DR GT SCH (05:20)
[2022-09-28] MEDS: POLYVINYL ALCOHOL OPHT DROPS 15 ML BOTTLE EACHEYE SCH ×2 (05:20→17:16)
[2022-09-28 07:32] VITALS: TEMP 97.7
[2022-09-28] MEDS: ASPIRIN 81 MG TAB.CHEW GT SCH (08:49)
[2022-09-28] MEDS: levETIRAcetam 500 MG/5 ML LIQUID UDC GT SCH ×2 (08:49→21:55)
[2022-09-28] MEDS: PHENOBARBITAL 64.8 MG TABLET GT SCH ×2 (08:50→21:00)
[2022-09-28] MEDS: DIAZEPAM 5 MG TABLET GT SCH ×2 (08:50→21:00)
[2022-09-28] MEDS: METOPROLOL TARTRATE 25 MG TABLET GT SCH ×2 (08:50→21:00)
[2022-09-28] MEDS: AMIODARONE 100 MG GT SCH (08:50)
[2022-09-28] MEDS: CHLORHEXIDINE GLUCONATE 15 ML MOUTHWASH MM SCH (08:50)
[2022-09-28] MEDS: REMEDY ESSENTIAL ZINC PASTE 113 GM TP SCH (08:50)
[2022-09-28] MEDS: HYDROGEN PEROXIDE 3% 118 ML BOTTLE TP SCH ×2 (09:10→20:11)
[2022-09-28] MEDS: VITAL AF 1.2 1,000 ML LIQUID GT PRN (14:14)
[2022-09-28 20:19] VITALS: TEMP 97.5
[2022-09-28] MEDS: MAGNESIUM OXIDE 400 MG TABLET GT SCH (21:00)
[2022-09-28] MEDS: MULTIVIT, IRON, MIN NO. 8, FA TABLET GT SCH (21:00)
[2022-09-29] MEDS: POLYVINYL ALCOHOL OPHT DROPS 15 ML BOTTLE EACHEYE SCH ×2 (05:37→17:22)
[2022-09-29] MEDS: OMEPRAZOLE 40 MG CAPSULE.DR GT SCH (05:37)
[2022-09-29 07:56] VITALS: TEMP 97.5
[2022-09-29] MEDS: HYDROGEN PEROXIDE 3% 118 ML BOTTLE TP SCH ×2 (08:20→20:49)
[2022-09-29] MEDS: ASPIRIN 81 MG TAB.CHEW GT SCH (08:55)
[2022-09-29] MEDS: levETIRAcetam 500 MG/5 ML LIQUID UDC GT SCH ×2 (08:56→21:42)
[2022-09-29] MEDS: METOPROLOL TARTRATE 25 MG TABLET GT SCH ×2 (08:57→21:00)
[2022-09-29] MEDS: DIAZEPAM 5 MG TABLET GT SCH ×2 (08:58→21:42)
[2022-09-29] MEDS: PHENOBARBITAL 64.8 MG TABLET GT SCH ×2 (08:58→21:42)
[2022-09-29] MEDS: AMIODARONE 100 MG GT SCH (08:58)
[2022-09-29] MEDS: CHLORHEXIDINE GLUCONATE 15 ML MOUTHWASH MM SCH (08:58)
[2022-09-29] MEDS: REMEDY ESSENTIAL ZINC PASTE 113 GM TP SCH (08:59)
[2022-09-29 20:11] VITALS: TEMP 98.8
[2022-09-29] MEDS: MAGNESIUM OXIDE 400 MG TABLET GT SCH (21:42)
[2022-09-29] MEDS: MULTIVIT, IRON, MIN NO. 8, FA TABLET GT SCH (21:42)
[2022-09-30] MEDS: POLYVINYL ALCOHOL OPHT DROPS 15 ML BOTTLE EACHEYE SCH ×2 (06:11→17:17)
[2022-09-30] MEDS: OMEPRAZOLE 40 MG CAPSULE.DR GT SCH (06:12)
[2022-09-30 07:41] VITALS: TEMP 97.7
[2022-09-30] MEDS: levETIRAcetam 500 MG/5 ML LIQUID UDC GT SCH ×2 (08:10→21:38)
[2022-09-30] MEDS: ASPIRIN 81 MG TAB.CHEW GT SCH (08:10)
[2022-09-30] MEDS: REMEDY ESSENTIAL ZINC PASTE 113 GM TP SCH (08:11)
[2022-09-30] MEDS: AMIODARONE 100 MG GT SCH (08:11)
[2022-09-30] MEDS: PHENOBARBITAL 64.8 MG TABLET GT SCH ×2 (08:11→21:47)
[2022-09-30] MEDS: CHLORHEXIDINE GLUCONATE 15 ML MOUTHWASH MM SCH (08:11)
[2022-09-30] MEDS: DIAZEPAM 5 MG TABLET GT SCH ×2 (08:11→21:47)
[2022-09-30] MEDS: METOPROLOL TARTRATE 25 MG TABLET GT SCH ×2 (08:11→21:48)
[2022-09-30] MEDS: HYDROGEN PEROXIDE 3% 118 ML BOTTLE TP SCH ×2 (08:26→19:18)
[2022-09-30 20:29] VITALS: TEMP 97.5
[2022-09-30] MEDS: MULTIVIT, IRON, MIN NO. 8, FA TABLET GT SCH (21:37)
[2022-09-30] MEDS: MAGNESIUM OXIDE 400 MG TABLET GT SCH (21:37)
[2022-10-01] MEDS: OMEPRAZOLE 40 MG CAPSULE.DR GT SCH (05:12)
[2022-10-01] MEDS: POLYVINYL ALCOHOL OPHT DROPS 15 ML BOTTLE EACHEYE SCH ×3 (05:12→21:00)
[2022-10-01] MEDS: HYDROGEN PEROXIDE 3% 118 ML BOTTLE TP SCH ×2 (07:54→19:17)
[2022-10-01] MEDS: ASPIRIN 81 MG TAB.CHEW GT SCH (08:38)
[2022-10-01] MEDS: levETIRAcetam 500 MG/5 ML LIQUID UDC GT SCH ×2 (08:38→21:00)
[2022-10-01] MEDS: CHLORHEXIDINE GLUCONATE 15 ML MOUTHWASH MM SCH (08:39)
[2022-10-01] MEDS: AMIODARONE 100 MG GT SCH (08:39)
[2022-10-01] MEDS: REMEDY ESSENTIAL ZINC PASTE 113 GM TP SCH (08:39)
[2022-10-01] MEDS: PHENOBARBITAL 64.8 MG TABLET GT SCH ×2 (08:39→21:00)
[2022-10-01] MEDS: METOPROLOL TARTRATE 25 MG TABLET GT SCH ×2 (08:39→21:00)
[2022-10-01] MEDS: DIAZEPAM 5 MG TABLET GT SCH ×2 (08:39→21:00)
[2022-10-01 09:05] VITALS: TEMP 97.6
[2022-10-01 20:16] VITALS: TEMP 97.8
[2022-10-01] MEDS: MULTIVIT, IRON, MIN NO. 8, FA TABLET GT SCH (21:00)
[2022-10-01] MEDS: MAGNESIUM OXIDE 400 MG TABLET GT SCH (21:00)
[2022-10-02] MEDS: OMEPRAZOLE 40 MG CAPSULE.DR GT SCH (06:11)
[2022-10-02 07:10] VITALS: TEMP 97.7; O2SAT 99
[2022-10-02] MEDS: HYDROGEN PEROXIDE 3% 118 ML BOTTLE TP SCH ×2 (09:00→21:07)
[2022-10-02] MEDS: levETIRAcetam 500 MG/5 ML LIQUID UDC GT SCH ×2 (09:24→20:39)
[2022-10-02] MEDS: METOPROLOL TARTRATE 25 MG TABLET GT SCH ×2 (09:24→20:40)
[2022-10-02] MEDS: ASPIRIN 81 MG TAB.CHEW GT SCH (09:24)
[2022-10-02] MEDS: AMIODARONE 100 MG GT SCH (09:25)
[2022-10-02] MEDS: DIAZEPAM 5 MG TABLET GT SCH ×2 (09:25→20:41)
[2022-10-02] MEDS: REMEDY ESSENTIAL ZINC PASTE 113 GM TP SCH (09:25)
[2022-10-02] MEDS: PHENOBARBITAL 64.8 MG TABLET GT SCH ×2 (09:25→20:40)
[2022-10-02] MEDS: CHLORHEXIDINE GLUCONATE 15 ML MOUTHWASH MM SCH (09:25)
[2022-10-02] MEDS: POLYVINYL ALCOHOL OPHT DROPS 15 ML BOTTLE EACHEYE SCH (17:36)
[2022-10-02 20:00] VITALS: TEMP 97.8
[2022-10-02] MEDS: MAGNESIUM OXIDE 400 MG TABLET GT SCH (20:40)
[2022-10-02] MEDS: MULTIVIT, IRON, MIN NO. 8, FA TABLET GT SCH (20:41)
[2022-10-03] MEDS: OMEPRAZOLE 40 MG CAPSULE.DR GT SCH (05:28)
[2022-10-03] MEDS: POLYVINYL ALCOHOL OPHT DROPS 15 ML BOTTLE EACHEYE SCH ×2 (05:34→18:20)
[2022-10-03] MEDS: VITAL AF 1.2 1,000 ML LIQUID GT PRN (05:34)
[2022-10-03 07:13] VITALS: TEMP 98.4
[2022-10-03] MEDS: HYDROGEN PEROXIDE 3% 118 ML BOTTLE TP SCH ×2 (07:32→19:12)
[2022-10-03] MEDS: ASPIRIN 81 MG TAB.CHEW GT SCH (09:03)
[2022-10-03] MEDS: levETIRAcetam 500 MG/5 ML LIQUID UDC GT SCH ×2 (09:03→21:00)
[2022-10-03] MEDS: DIAZEPAM 5 MG TABLET GT SCH ×2 (09:06→21:00)
[2022-10-03] MEDS: AMIODARONE 100 MG GT SCH (09:06)
[2022-10-03] MEDS: METOPROLOL TARTRATE 25 MG TABLET GT SCH ×2 (09:06→21:00)
[2022-10-03] MEDS: REMEDY ESSENTIAL ZINC PASTE 113 GM TP SCH (09:06)
[2022-10-03] MEDS: PHENOBARBITAL 64.8 MG TABLET GT SCH ×2 (09:06→21:00)
[2022-10-03] MEDS: CHLORHEXIDINE GLUCONATE 15 ML MOUTHWASH MM SCH (09:06)
[2022-10-03] MEDS: MAGNESIUM OXIDE 400 MG TABLET GT SCH (21:00)
[2022-10-03] MEDS: MULTIVIT, IRON, MIN NO. 8, FA TABLET GT SCH (21:00)
[2022-10-03 21:12] VITALS: TEMP 98.8
[2022-10-04] MEDS: POLYVINYL ALCOHOL OPHT DROPS 15 ML BOTTLE EACHEYE SCH ×2 (06:00→18:19)
[2022-10-04] MEDS: OMEPRAZOLE 40 MG CAPSULE.DR GT SCH (06:00)
[2022-10-04 07:28] VITALS: TEMP 97.8
[2022-10-04] MEDS: ASPIRIN 81 MG TAB.CHEW GT SCH (08:32)
[2022-10-04] MEDS: METOPROLOL TARTRATE 25 MG TABLET GT SCH ×2 (08:32→21:06)
[2022-10-04] MEDS: levETIRAcetam 500 MG/5 ML LIQUID UDC GT SCH ×2 (08:32→21:02)
[2022-10-04] MEDS: PHENOBARBITAL 64.8 MG TABLET GT SCH ×2 (08:33→21:06)
[2022-10-04] MEDS: CHLORHEXIDINE GLUCONATE 15 ML MOUTHWASH MM SCH (08:33)
[2022-10-04] MEDS: REMEDY ESSENTIAL ZINC PASTE 113 GM TP SCH (08:33)
[2022-10-04] MEDS: DIAZEPAM 5 MG TABLET GT SCH ×2 (08:33→21:07)
[2022-10-04] MEDS: AMIODARONE 100 MG GT SCH (08:33)
[2022-10-04] MEDS: HYDROGEN PEROXIDE 3% 118 ML BOTTLE TP SCH ×2 (09:40→20:48)
[2022-10-04 20:00] VITALS: TEMP 97.8
[2022-10-04] MEDS: MAGNESIUM OXIDE 400 MG TABLET GT SCH (21:06)
[2022-10-04] MEDS: MULTIVIT, IRON, MIN NO. 8, FA TABLET GT SCH (21:07)
[2022-10-05] MEDS: POLYVINYL ALCOHOL OPHT DROPS 15 ML BOTTLE EACHEYE SCH ×2 (05:10→17:27)
[2022-10-05] MEDS: OMEPRAZOLE 40 MG CAPSULE.DR GT SCH (05:10)
[2022-10-05 07:34] VITALS: TEMP 97.3
[2022-10-05] MEDS: levETIRAcetam 500 MG/5 ML LIQUID UDC GT SCH ×2 (09:06→21:00)
[2022-10-05] MEDS: ASPIRIN 81 MG TAB.CHEW GT SCH (09:06)
[2022-10-05] MEDS: CHLORHEXIDINE GLUCONATE 15 ML MOUTHWASH MM SCH (09:09)
[2022-10-05] MEDS: PHENOBARBITAL 64.8 MG TABLET GT SCH ×2 (09:09→21:00)
[2022-10-05] MEDS: REMEDY ESSENTIAL ZINC PASTE 113 GM TP SCH (09:09)
[2022-10-05] MEDS: METOPROLOL TARTRATE 25 MG TABLET GT SCH ×2 (09:09→21:00)
[2022-10-05] MEDS: DIAZEPAM 5 MG TABLET GT SCH ×2 (09:09→21:00)
[2022-10-05] MEDS: AMIODARONE 100 MG GT SCH (09:09)
[2022-10-05] MEDS: HYDROGEN PEROXIDE 3% 118 ML BOTTLE TP SCH ×2 (09:30→21:13)
[2022-10-05 21:00] VITALS: TEMP 97.6
[2022-10-05] MEDS: MULTIVIT, IRON, MIN NO. 8, FA TABLET GT SCH (21:00)
[2022-10-05] MEDS: MAGNESIUM OXIDE 400 MG TABLET GT SCH (21:00)
[2022-10-06] MEDS: POLYVINYL ALCOHOL OPHT DROPS 15 ML BOTTLE EACHEYE SCH ×2 (05:32→18:30)
[2022-10-06] MEDS: OMEPRAZOLE 40 MG CAPSULE.DR GT SCH (05:32)
[2022-10-06] MEDS: VITAL AF 1.2 1,000 ML LIQUID GT PRN (05:32)
[2022-10-06 07:35] VITALS: TEMP 98.1
[2022-10-06] MEDS: HYDROGEN PEROXIDE 3% 118 ML BOTTLE TP SCH ×2 (08:05→17:23)
[2022-10-06] MEDS: ASPIRIN 81 MG TAB.CHEW GT SCH (09:16)
[2022-10-06] MEDS: levETIRAcetam 500 MG/5 ML LIQUID UDC GT SCH ×2 (09:17→20:34)
[2022-10-06] MEDS: PHENOBARBITAL 64.8 MG TABLET GT SCH ×2 (09:19→20:34)
[2022-10-06] MEDS: AMIODARONE 100 MG GT SCH (09:19)
[2022-10-06] MEDS: METOPROLOL TARTRATE 25 MG TABLET GT SCH ×2 (09:19→21:35)
[2022-10-06] MEDS: DIAZEPAM 5 MG TABLET GT SCH ×2 (09:19→20:35)
[2022-10-06] MEDS: CHLORHEXIDINE GLUCONATE 15 ML MOUTHWASH MM SCH (09:20)
[2022-10-06] MEDS: REMEDY ESSENTIAL ZINC PASTE 113 GM TP SCH (09:20)
[2022-10-06 20:00] VITALS: TEMP 98.3
[2022-10-06] MEDS: MAGNESIUM OXIDE 400 MG TABLET GT SCH (20:34)
[2022-10-06] MEDS: MULTIVIT, IRON, MIN NO. 8, FA TABLET GT SCH (20:34)
[2022-10-07] MEDS: POLYVINYL ALCOHOL OPHT DROPS 15 ML BOTTLE EACHEYE SCH ×2 (05:32→17:40)
[2022-10-07] MEDS: OMEPRAZOLE 40 MG CAPSULE.DR GT SCH (05:33)
[2022-10-07 08:08] VITALS: TEMP 97.8
[2022-10-07] MEDS: HYDROGEN PEROXIDE 3% 118 ML BOTTLE TP SCH ×2 (08:14→21:50)
[2022-10-07] MEDS: ASPIRIN 81 MG TAB.CHEW GT SCH (08:54)
[2022-10-07] MEDS: levETIRAcetam 500 MG/5 ML LIQUID UDC GT SCH ×2 (08:55→20:20)
[2022-10-07] MEDS: PHENOBARBITAL 64.8 MG TABLET GT SCH ×2 (08:57→20:20)
[2022-10-07] MEDS: AMIODARONE 100 MG GT SCH (08:57)
[2022-10-07] MEDS: METOPROLOL TARTRATE 25 MG TABLET GT SCH ×2 (08:57→20:19)
[2022-10-07] MEDS: REMEDY ESSENTIAL ZINC PASTE 113 GM TP SCH (08:58)
[2022-10-07] MEDS: DIAZEPAM 5 MG TABLET GT SCH ×2 (08:58→20:21)
[2022-10-07] MEDS: CHLORHEXIDINE GLUCONATE 15 ML MOUTHWASH MM SCH (09:00)
[2022-10-07] MEDS: VITAL AF 1.2 1,000 ML LIQUID GT PRN (17:40)
[2022-10-07 20:00] VITALS: TEMP 99
[2022-10-07] MEDS: MAGNESIUM OXIDE 400 MG TABLET GT SCH (20:20)
[2022-10-07] MEDS: MULTIVIT, IRON, MIN NO. 8, FA TABLET GT SCH (20:21)
[2022-10-08] MEDS: POLYVINYL ALCOHOL OPHT DROPS 15 ML BOTTLE EACHEYE SCH ×2 (05:07→17:00)
[2022-10-08] MEDS: OMEPRAZOLE 40 MG CAPSULE.DR GT SCH (05:07)
[2022-10-08 08:00] VITALS: TEMP 98
[2022-10-08] MEDS: HYDROGEN PEROXIDE 3% 118 ML BOTTLE TP SCH ×2 (08:10→19:13)
[2022-10-08] MEDS: ASPIRIN 81 MG TAB.CHEW GT SCH (09:21)
[2022-10-08] MEDS: levETIRAcetam 500 MG/5 ML LIQUID UDC GT SCH ×2 (09:21→20:39)
[2022-10-08] MEDS: METOPROLOL TARTRATE 25 MG TABLET GT SCH ×2 (09:22→20:41)
[2022-10-08] MEDS: CHLORHEXIDINE GLUCONATE 15 ML MOUTHWASH MM SCH (09:22)
[2022-10-08] MEDS: PHENOBARBITAL 64.8 MG TABLET GT SCH ×2 (09:22→20:44)
[2022-10-08] MEDS: AMIODARONE 100 MG GT SCH (09:22)
[2022-10-08] MEDS: DIAZEPAM 5 MG TABLET GT SCH ×2 (09:22→20:45)
[2022-10-08] MEDS: REMEDY ESSENTIAL ZINC PASTE 113 GM TP SCH (09:22)
[2022-10-08] MEDS: VITAL AF 1.2 1,000 ML LIQUID GT PRN (17:00)
[2022-10-08 19:59] VITALS: TEMP 97.6
[2022-10-08] MEDS: MULTIVIT, IRON, MIN NO. 8, FA TABLET GT SCH (20:44)
[2022-10-08] MEDS: MAGNESIUM OXIDE 400 MG TABLET GT SCH (20:44)
[2022-10-09] MEDS: POLYVINYL ALCOHOL OPHT DROPS 15 ML BOTTLE EACHEYE SCH ×2 (05:31→17:21)
[2022-10-09] MEDS: OMEPRAZOLE 40 MG CAPSULE.DR GT SCH (05:31)
[2022-10-09] MEDS: HYDROGEN PEROXIDE 3% 118 ML BOTTLE TP SCH ×2 (09:00→21:00)
[2022-10-09] MEDS: METOPROLOL TARTRATE 25 MG TABLET GT SCH ×2 (09:27→21:35)
[2022-10-09] MEDS: ASPIRIN 81 MG TAB.CHEW GT SCH (09:27)
[2022-10-09] MEDS: levETIRAcetam 500 MG/5 ML LIQUID UDC GT SCH ×2 (09:27→21:34)
[2022-10-09] MEDS: DIAZEPAM 5 MG TABLET GT SCH ×2 (09:27→21:35)
[2022-10-09] MEDS: CHLORHEXIDINE GLUCONATE 15 ML MOUTHWASH MM SCH (09:27)
[2022-10-09] MEDS: AMIODARONE 100 MG GT SCH (09:27)
[2022-10-09] MEDS: REMEDY ESSENTIAL ZINC PASTE 113 GM TP SCH (09:27)
[2022-10-09] MEDS: PHENOBARBITAL 64.8 MG TABLET GT SCH ×2 (09:27→21:35)
[2022-10-09 11:02] VITALS: TEMP 98.2
[2022-10-09 21:24] VITALS: TEMP 98.7
[2022-10-09] MEDS: MAGNESIUM OXIDE 400 MG TABLET GT SCH (21:35)
[2022-10-09] MEDS: MULTIVIT, IRON, MIN NO. 8, FA TABLET GT SCH (21:35)
[2022-10-10] MEDS: VITAL AF 1.2 1,000 ML LIQUID GT PRN (04:00)
[2022-10-10] MEDS: POLYVINYL ALCOHOL OPHT DROPS 15 ML BOTTLE EACHEYE SCH ×2 (06:20→17:20)
[2022-10-10] MEDS: OMEPRAZOLE 40 MG CAPSULE.DR GT SCH (06:20)
[2022-10-10] MEDS: HYDROGEN PEROXIDE 3% 118 ML BOTTLE TP SCH ×2 (07:30→21:01)
[2022-10-10] MEDS: levETIRAcetam 500 MG/5 ML LIQUID UDC GT SCH ×2 (09:21→20:44)
[2022-10-10] MEDS: ASPIRIN 81 MG TAB.CHEW GT SCH (09:21)
[2022-10-10] MEDS: METOPROLOL TARTRATE 25 MG TABLET GT SCH ×2 (09:22→20:10)
[2022-10-10] MEDS: CHLORHEXIDINE GLUCONATE 15 ML MOUTHWASH MM SCH (09:27)
[2022-10-10] MEDS: REMEDY ESSENTIAL ZINC PASTE 113 GM TP SCH (09:27)
[2022-10-10] MEDS: AMIODARONE 100 MG GT SCH (09:27)
[2022-10-10] MEDS: PHENOBARBITAL 64.8 MG TABLET GT SCH ×2 (09:27→20:44)
[2022-10-10] MEDS: DIAZEPAM 5 MG TABLET GT SCH ×2 (09:27→20:44)
[2022-10-10 10:57] VITALS: TEMP 97.5
[2022-10-10] MEDS ORDERED: ASPIRIN 81 MG TAB.CHEW ONE (17:16)
[2022-10-10 20:00] VITALS: TEMP 98
[2022-10-10] MEDS: BISACODYL 10 MG SUPP.RECT RC PRN (20:10)
[2022-10-10] MEDS: MAGNESIUM OXIDE 400 MG TABLET GT SCH (20:44)
[2022-10-10] MEDS: DOCUSATE SODIUM 100 MG/10 ML LIQUID UDC GT SCH (20:44)
[2022-10-10] MEDS: MULTIVIT, IRON, MIN NO. 8, FA TABLET GT SCH (20:44)
[2022-10-11] MEDS: OMEPRAZOLE 40 MG CAPSULE.DR GT SCH (06:05)
[2022-10-11] MEDS: POLYVINYL ALCOHOL OPHT DROPS 15 ML BOTTLE EACHEYE SCH ×2 (06:05→17:12)
[2022-10-11 07:45] VITALS: TEMP 97.1
[2022-10-11] MEDS: HYDROGEN PEROXIDE 3% 118 ML BOTTLE TP SCH ×2 (09:00→23:15)
[2022-10-11] MEDS: AMIODARONE 100 MG GT SCH (09:43)
[2022-10-11] MEDS: CHLORHEXIDINE GLUCONATE 15 ML MOUTHWASH MM SCH (09:43)
[2022-10-11] MEDS: PHENOBARBITAL 64.8 MG TABLET GT SCH ×2 (09:43→21:04)
[2022-10-11] MEDS: levETIRAcetam 500 MG/5 ML LIQUID UDC GT SCH ×2 (09:43→21:03)
[2022-10-11] MEDS: DIAZEPAM 5 MG TABLET GT SCH ×2 (09:43→21:04)
[2022-10-11] MEDS: ASPIRIN 81 MG TAB.CHEW GT SCH (09:43)
[2022-10-11] MEDS: METOPROLOL TARTRATE 25 MG TABLET GT SCH ×2 (09:44→21:04)
[2022-10-11] MEDS: REMEDY ESSENTIAL ZINC PASTE 113 GM TP SCH (09:44)
[2022-10-11] MEDS: DOCUSATE SODIUM 100 MG/10 ML LIQUID UDC GT SCH ×2 (09:44→21:03)
[2022-10-11 20:16] VITALS: TEMP 97.4
[2022-10-11] MEDS: MAGNESIUM OXIDE 400 MG TABLET GT SCH (21:04)
[2022-10-11] MEDS: MULTIVIT, IRON, MIN NO. 8, FA TABLET GT SCH (21:04)
[2022-10-12] MEDS: OMEPRAZOLE 40 MG CAPSULE.DR GT SCH (05:39)
[2022-10-12] MEDS: POLYVINYL ALCOHOL OPHT DROPS 15 ML BOTTLE EACHEYE SCH ×2 (05:39→18:33)
[2022-10-12 07:35] VITALS: TEMP 97.4
[2022-10-12] MEDS: HYDROGEN PEROXIDE 3% 118 ML BOTTLE TP SCH ×2 (09:04→19:23)
[2022-10-12] MEDS: ASPIRIN 81 MG TAB.CHEW GT SCH (09:12)
[2022-10-12] MEDS: DOCUSATE SODIUM 100 MG/10 ML LIQUID UDC GT SCH ×2 (09:12→21:20)
[2022-10-12] MEDS: levETIRAcetam 500 MG/5 ML LIQUID UDC GT SCH ×2 (09:12→21:20)
[2022-10-12] MEDS: METOPROLOL TARTRATE 25 MG TABLET GT SCH ×2 (09:13→21:20)
[2022-10-12] MEDS: AMIODARONE 100 MG GT SCH (09:15)
[2022-10-12] MEDS: DIAZEPAM 5 MG TABLET GT SCH ×2 (09:15→21:21)
[2022-10-12] MEDS: REMEDY ESSENTIAL ZINC PASTE 113 GM TP SCH (09:15)
[2022-10-12] MEDS: PHENOBARBITAL 64.8 MG TABLET GT SCH ×2 (09:15→21:00)
[2022-10-12] MEDS: CHLORHEXIDINE GLUCONATE 15 ML MOUTHWASH MM SCH (09:15)
[2022-10-12 20:17] VITALS: TEMP 97.8
[2022-10-12] MEDS: MAGNESIUM OXIDE 400 MG TABLET GT SCH (21:21)
[2022-10-12] MEDS: MULTIVIT, IRON, MIN NO. 8, FA TABLET GT SCH (21:21)
[2022-10-13] MEDS: VITAL AF 1.2 1,000 ML LIQUID GT PRN (04:17)
[2022-10-13] MEDS: POLYVINYL ALCOHOL OPHT DROPS 15 ML BOTTLE EACHEYE SCH ×2 (05:25→17:13)
[2022-10-13] MEDS: OMEPRAZOLE 40 MG CAPSULE.DR GT SCH (05:25)
[2022-10-13 07:58] VITALS: TEMP 97.6
[2022-10-13] MEDS: HYDROGEN PEROXIDE 3% 118 ML BOTTLE TP SCH ×2 (08:05→19:14)
[2022-10-13] MEDS: ASPIRIN 81 MG TAB.CHEW GT SCH (09:24)
[2022-10-13] MEDS: DOCUSATE SODIUM 100 MG/10 ML LIQUID UDC GT SCH ×2 (09:25→20:44)
[2022-10-13] MEDS: levETIRAcetam 500 MG/5 ML LIQUID UDC GT SCH ×2 (09:25→20:44)
[2022-10-13] MEDS: CHLORHEXIDINE GLUCONATE 15 ML MOUTHWASH MM SCH (09:26)
[2022-10-13] MEDS: METOPROLOL TARTRATE 25 MG TABLET GT SCH ×2 (09:26→20:45)
[2022-10-13] MEDS: DIAZEPAM 5 MG TABLET GT SCH ×2 (09:26→20:59)
[2022-10-13] MEDS: REMEDY ESSENTIAL ZINC PASTE 113 GM TP SCH (09:26)
[2022-10-13] MEDS: PHENOBARBITAL 64.8 MG TABLET GT SCH ×2 (09:26→20:53)
[2022-10-13] MEDS: AMIODARONE 100 MG GT SCH (09:26)
[2022-10-13] MEDS: MULTIVIT, IRON, MIN NO. 8, FA TABLET GT SCH (20:53)
[2022-10-13] MEDS: MAGNESIUM OXIDE 400 MG TABLET GT SCH (20:54)
[2022-10-13 21:56] VITALS: TEMP 98.6
[2022-10-14] MEDS: POLYVINYL ALCOHOL OPHT DROPS 15 ML BOTTLE EACHEYE SCH ×2 (05:34→17:36)
[2022-10-14] MEDS: OMEPRAZOLE 40 MG CAPSULE.DR GT SCH (05:34)
[2022-10-14] MEDS: HYDROGEN PEROXIDE 3% 118 ML BOTTLE TP SCH ×2 (08:04→21:00)
[2022-10-14 08:12] VITALS: TEMP 98
[2022-10-14] MEDS: levETIRAcetam 500 MG/5 ML LIQUID UDC GT SCH ×2 (08:44→21:56)
[2022-10-14] MEDS: DOCUSATE SODIUM 100 MG/10 ML LIQUID UDC GT SCH ×2 (08:44→21:56)
[2022-10-14] MEDS: ASPIRIN 81 MG TAB.CHEW GT SCH (08:44)
[2022-10-14] MEDS: CHLORHEXIDINE GLUCONATE 15 ML MOUTHWASH MM SCH (08:45)
[2022-10-14] MEDS: REMEDY ESSENTIAL ZINC PASTE 113 GM TP SCH (08:45)
[2022-10-14] MEDS: AMIODARONE 100 MG GT SCH (08:45)
[2022-10-14] MEDS: DIAZEPAM 5 MG TABLET GT SCH ×2 (08:45→21:00)
[2022-10-14] MEDS: METOPROLOL TARTRATE 25 MG TABLET GT SCH ×2 (08:45→21:00)
[2022-10-14] MEDS: PHENOBARBITAL 64.8 MG TABLET GT SCH ×2 (08:45→21:00)
[2022-10-14 11:26] VITALS: TEMP 98
[2022-10-14 20:06] VITALS: TEMP 98.6
[2022-10-14] MEDS: MAGNESIUM OXIDE 400 MG TABLET GT SCH (21:00)
[2022-10-14] MEDS: MULTIVIT, IRON, MIN NO. 8, FA TABLET GT SCH (21:00)
[2022-10-15] MEDS: OMEPRAZOLE 40 MG CAPSULE.DR GT SCH (05:00)
[2022-10-15] MEDS: POLYVINYL ALCOHOL OPHT DROPS 15 ML BOTTLE EACHEYE SCH ×2 (05:00→18:20)
[2022-10-15] MEDS: ASPIRIN 81 MG TAB.CHEW GT SCH (08:45)
[2022-10-15] MEDS: DOCUSATE SODIUM 100 MG/10 ML LIQUID UDC GT SCH ×2 (08:45→20:47)
[2022-10-15] MEDS: levETIRAcetam 500 MG/5 ML LIQUID UDC GT SCH ×2 (08:45→20:40)
[2022-10-15] MEDS: REMEDY ESSENTIAL ZINC PASTE 113 GM TP SCH (08:46)
[2022-10-15] MEDS: AMIODARONE 100 MG GT SCH (08:46)
[2022-10-15] MEDS: PHENOBARBITAL 64.8 MG TABLET GT SCH ×2 (08:46→20:37)
[2022-10-15] MEDS: CHLORHEXIDINE GLUCONATE 15 ML MOUTHWASH MM SCH (08:46)
[2022-10-15] MEDS: METOPROLOL TARTRATE 25 MG TABLET GT SCH ×2 (08:46→20:46)
[2022-10-15] MEDS: DIAZEPAM 5 MG TABLET GT SCH ×2 (08:46→20:37)
[2022-10-15] MEDS: HYDROGEN PEROXIDE 3% 118 ML BOTTLE TP SCH ×2 (09:07→19:16)
[2022-10-15 10:55] VITALS: TEMP 97.5
[2022-10-15 20:00] VITALS: BP 105/67; TEMP 98.8
[2022-10-15] MEDS: MAGNESIUM OXIDE 400 MG TABLET GT SCH (20:41)
[2022-10-15] MEDS: MULTIVIT, IRON, MIN NO. 8, FA TABLET GT SCH (20:43)
[2022-10-16] MEDS: OMEPRAZOLE 40 MG CAPSULE.DR GT SCH (05:29)
[2022-10-16] MEDS: POLYVINYL ALCOHOL OPHT DROPS 15 ML BOTTLE EACHEYE SCH ×2 (05:29→17:15)
[2022-10-16] MEDS: PHENOBARBITAL 64.8 MG TABLET GT SCH ×2 (08:14→21:00)
[2022-10-16] MEDS: DIAZEPAM 5 MG TABLET GT SCH ×2 (08:14→21:00)
[2022-10-16] MEDS: ASPIRIN 81 MG TAB.CHEW GT SCH (08:18)
[2022-10-16] MEDS: DOCUSATE SODIUM 100 MG/10 ML LIQUID UDC GT SCH ×2 (08:18→21:00)
[2022-10-16] MEDS: METOPROLOL TARTRATE 25 MG TABLET GT SCH ×2 (08:18→21:00)
[2022-10-16] MEDS: CHLORHEXIDINE GLUCONATE 15 ML MOUTHWASH MM SCH (08:19)
[2022-10-16] MEDS: AMIODARONE 100 MG GT SCH (08:19)
[2022-10-16] MEDS: levETIRAcetam 500 MG/5 ML LIQUID UDC GT SCH ×2 (08:19→21:00)
[2022-10-16] MEDS: REMEDY ESSENTIAL ZINC PASTE 113 GM TP SCH (08:19)
[2022-10-16] MEDS: HYDROGEN PEROXIDE 3% 118 ML BOTTLE TP SCH ×2 (09:00→19:18)
[2022-10-16 09:11] VITALS: TEMP 97.6
[2022-10-16 20:00] VITALS: TEMP 98
[2022-10-16] MEDS: MAGNESIUM OXIDE 400 MG TABLET GT SCH (21:00)
[2022-10-16] MEDS: MULTIVIT, IRON, MIN NO. 8, FA TABLET GT SCH (21:00)
[2022-10-16] MEDS: VITAL AF 1.2 1,000 ML LIQUID GT PRN (22:18)
[2022-10-17] MEDS: POLYVINYL ALCOHOL OPHT DROPS 15 ML BOTTLE EACHEYE SCH ×2 (05:13→17:16)
[2022-10-17] MEDS: OMEPRAZOLE 40 MG CAPSULE.DR GT SCH (05:13)
[2022-10-17 07:53] VITALS: TEMP 97.9
[2022-10-17] MEDS: ASPIRIN 81 MG TAB.CHEW GT SCH (08:52)
[2022-10-17] MEDS: levETIRAcetam 500 MG/5 ML LIQUID UDC GT SCH ×2 (08:52→21:00)
[2022-10-17] MEDS: DOCUSATE SODIUM 100 MG/10 ML LIQUID UDC GT SCH ×2 (08:52→21:00)
[2022-10-17] MEDS: DIAZEPAM 5 MG TABLET GT SCH ×2 (08:53→21:00)
[2022-10-17] MEDS: AMIODARONE 100 MG GT SCH (08:53)
[2022-10-17] MEDS: METOPROLOL TARTRATE 25 MG TABLET GT SCH ×2 (08:53→21:00)
[2022-10-17] MEDS: PHENOBARBITAL 64.8 MG TABLET GT SCH ×2 (08:53→21:00)
[2022-10-17] MEDS: CHLORHEXIDINE GLUCONATE 15 ML MOUTHWASH MM SCH (08:54)
[2022-10-17] MEDS: REMEDY ESSENTIAL ZINC PASTE 113 GM TP SCH (08:55)
[2022-10-17] MEDS: HYDROGEN PEROXIDE 3% 118 ML BOTTLE TP SCH ×2 (09:00→19:16)
[2022-10-17] MEDS: MAGNESIUM OXIDE 400 MG TABLET GT SCH (21:00)
[2022-10-17] MEDS: MULTIVIT, IRON, MIN NO. 8, FA TABLET GT SCH (21:00)
[2022-10-18] MEDS: OMEPRAZOLE 40 MG CAPSULE.DR GT SCH (05:20)
[2022-10-18] MEDS: POLYVINYL ALCOHOL OPHT DROPS 15 ML BOTTLE EACHEYE SCH ×2 (05:20→17:10)
[2022-10-18 07:35] VITALS: TEMP 98.3
[2022-10-18] MEDS: HYDROGEN PEROXIDE 3% 118 ML BOTTLE TP SCH ×2 (08:39→21:10)
[2022-10-18] MEDS: DOCUSATE SODIUM 100 MG/10 ML LIQUID UDC GT SCH ×2 (08:48→21:55)
[2022-10-18] MEDS: ASPIRIN 81 MG TAB.CHEW GT SCH (08:48)
[2022-10-18] MEDS: levETIRAcetam 500 MG/5 ML LIQUID UDC GT SCH ×2 (08:48→21:55)
[2022-10-18] MEDS: REMEDY ESSENTIAL ZINC PASTE 113 GM TP SCH (08:50)
[2022-10-18] MEDS: CHLORHEXIDINE GLUCONATE 15 ML MOUTHWASH MM SCH (08:50)
[2022-10-18] MEDS: AMIODARONE 100 MG GT SCH (08:50)
[2022-10-18] MEDS: PHENOBARBITAL 64.8 MG TABLET GT SCH ×2 (08:50→21:55)
[2022-10-18] MEDS: DIAZEPAM 5 MG TABLET GT SCH ×2 (08:50→21:55)
[2022-10-18] MEDS: METOPROLOL TARTRATE 25 MG TABLET GT SCH ×2 (08:50→21:55)
[2022-10-18] MEDS: VITAL AF 1.2 1,000 ML LIQUID GT PRN (12:13)
[2022-10-18 20:02] VITALS: TEMP 96.7
[2022-10-18] MEDS: MAGNESIUM OXIDE 400 MG TABLET GT SCH (21:55)
[2022-10-18] MEDS: MULTIVIT, IRON, MIN NO. 8, FA TABLET GT SCH (21:55)
[2022-10-19] MEDS: POLYVINYL ALCOHOL OPHT DROPS 15 ML BOTTLE EACHEYE SCH ×2 (05:16→17:39)
[2022-10-19] MEDS: OMEPRAZOLE 40 MG CAPSULE.DR GT SCH (05:16)
[2022-10-19 07:43] VITALS: TEMP 97.2
[2022-10-19] MEDS: HYDROGEN PEROXIDE 3% 118 ML BOTTLE TP SCH ×2 (08:04→21:00)
[2022-10-19] MEDS: levETIRAcetam 500 MG/5 ML LIQUID UDC GT SCH ×2 (08:08→21:42)
[2022-10-19] MEDS: DOCUSATE SODIUM 100 MG/10 ML LIQUID UDC GT SCH ×2 (08:08→21:42)
[2022-10-19] MEDS: ASPIRIN 81 MG TAB.CHEW GT SCH (08:08)
[2022-10-19] MEDS: DIAZEPAM 5 MG TABLET GT SCH ×2 (08:09→21:42)
[2022-10-19] MEDS: METOPROLOL TARTRATE 25 MG TABLET GT SCH ×2 (08:09→21:42)
[2022-10-19] MEDS: REMEDY ESSENTIAL ZINC PASTE 113 GM TP SCH (08:09)
[2022-10-19] MEDS: AMIODARONE 100 MG GT SCH (08:09)
[2022-10-19] MEDS: PHENOBARBITAL 64.8 MG TABLET GT SCH ×2 (08:09→21:42)
[2022-10-19] MEDS: CHLORHEXIDINE GLUCONATE 15 ML MOUTHWASH MM SCH (08:10)
[2022-10-19 20:25] VITALS: TEMP 97.6
[2022-10-19] MEDS: MULTIVIT, IRON, MIN NO. 8, FA TABLET GT SCH (21:42)
[2022-10-19] MEDS: MAGNESIUM OXIDE 400 MG TABLET GT SCH (21:42)
[2022-10-20] MEDS: VITAL AF 1.2 1,000 ML LIQUID GT PRN (00:53)
[2022-10-20] MEDS: POLYVINYL ALCOHOL OPHT DROPS 15 ML BOTTLE EACHEYE SCH ×2 (05:50→17:41)
[2022-10-20] MEDS: OMEPRAZOLE 40 MG CAPSULE.DR GT SCH (05:50)
[2022-10-20 07:31] VITALS: TEMP 97.6
[2022-10-20] MEDS: ASPIRIN 81 MG TAB.CHEW GT SCH (08:42)
[2022-10-20] MEDS: levETIRAcetam 500 MG/5 ML LIQUID UDC GT SCH ×2 (08:43→20:26)
[2022-10-20] MEDS: DOCUSATE SODIUM 100 MG/10 ML LIQUID UDC GT SCH ×2 (08:43→20:26)
[2022-10-20] MEDS: DIAZEPAM 5 MG TABLET GT SCH ×2 (08:45→20:26)
[2022-10-20] MEDS: METOPROLOL TARTRATE 25 MG TABLET GT SCH ×2 (08:45→20:26)
[2022-10-20] MEDS: REMEDY ESSENTIAL ZINC PASTE 113 GM TP SCH (08:45)
[2022-10-20] MEDS: AMIODARONE 100 MG GT SCH (08:45)
[2022-10-20] MEDS: PHENOBARBITAL 64.8 MG TABLET GT SCH ×2 (08:45→20:26)
[2022-10-20] MEDS: CHLORHEXIDINE GLUCONATE 15 ML MOUTHWASH MM SCH (08:45)
[2022-10-20] MEDS: HYDROGEN PEROXIDE 3% 118 ML BOTTLE TP SCH ×2 (09:40→19:26)
[2022-10-20 20:22] VITALS: TEMP 97.7
[2022-10-20] MEDS: MULTIVIT, IRON, MIN NO. 8, FA TABLET GT SCH (20:26)
[2022-10-20] MEDS: MAGNESIUM OXIDE 400 MG TABLET GT SCH (20:26)
[2022-10-21] MEDS: OMEPRAZOLE 40 MG CAPSULE.DR GT SCH (05:09)
[2022-10-21] MEDS: POLYVINYL ALCOHOL OPHT DROPS 15 ML BOTTLE EACHEYE SCH ×2 (05:09→17:12)
[2022-10-21 08:00] VITALS: TEMP 98.1
[2022-10-21] MEDS: HYDROGEN PEROXIDE 3% 118 ML BOTTLE TP SCH ×2 (08:04→20:44)
[2022-10-21] MEDS: ASPIRIN 81 MG TAB.CHEW GT SCH (09:03)
[2022-10-21] MEDS: levETIRAcetam 500 MG/5 ML LIQUID UDC GT SCH ×2 (09:03→20:36)
[2022-10-21] MEDS: DOCUSATE SODIUM 100 MG/10 ML LIQUID UDC GT SCH ×2 (09:03→20:36)
[2022-10-21] MEDS: METOPROLOL TARTRATE 25 MG TABLET GT SCH ×2 (09:03→21:07)
[2022-10-21] MEDS: DIAZEPAM 5 MG TABLET GT SCH ×2 (09:04→20:36)
[2022-10-21] MEDS: REMEDY ESSENTIAL ZINC PASTE 113 GM TP SCH (09:04)
[2022-10-21] MEDS: PHENOBARBITAL 64.8 MG TABLET GT SCH ×2 (09:04→20:36)
[2022-10-21] MEDS: AMIODARONE 100 MG GT SCH (09:04)
[2022-10-21] MEDS: CHLORHEXIDINE GLUCONATE 15 ML MOUTHWASH MM SCH (09:04)
[2022-10-21] MEDS: MAGNESIUM OXIDE 400 MG TABLET GT SCH (20:36)
[2022-10-21] MEDS: MULTIVIT, IRON, MIN NO. 8, FA TABLET GT SCH (20:36)
[2022-10-21 20:48] VITALS: TEMP 97.1
[2022-10-21] MEDS: VITAL AF 1.2 1,000 ML LIQUID GT PRN (21:08)
[2022-10-22] MEDS: OMEPRAZOLE 40 MG CAPSULE.DR GT SCH (05:45)
[2022-10-22] MEDS: POLYVINYL ALCOHOL OPHT DROPS 15 ML BOTTLE EACHEYE SCH ×2 (05:45→17:10)
[2022-10-22 07:15] LABS: BASOPHILS % (AUTO) 0.6 % (0.0-2.0); EOSINOPHILS # (AUTO) 0.1 K/uL (0.0-0.7); EOSINOPHILS % (AUTO) 2.7 % (0.0-7.0); HEMATOCRIT 25.8 % (31.2-41.9); HEMOGLOBIN 8.7 g/dL (10.9-14.3); LYMPHOCYTES # (AUTO) 0.8 K/uL (0.8-4.8); LYMPHOCYTES % (AUTO) 24.8 % (20.5-51.5); MEAN CORPUSCULAR HEMOGLOBIN 26.3 uug (24.7-32.8); MEAN CORPUSCULAR HGB CONC 34 g/dL (32.3-35.6); MEAN CORPUSCULAR VOLUME 77.9 fL (75.5-95.3); MONOCYTES # (AUTO) 0.4 K/uL (0.1-1.30); MONOCYTES % (AUTO) 12.2 % (0.0-11.0); NEUTROPHILS # (AUTO) 1.9 K/uL (1.8-8.9); NEUTROPHILS % (AUTO) 59.7 % (38.5-71.5); PLATELET COUNT (AUTO) 205 K/uL (179-408); RED BLOOD CELL COUNT(AUTO) 3.31 MIL/uL (3.63-4.92); RED CELL DISTRIBUTION WIDTH 17.1 % (12.3-17.7); WHITE BLOOD COUNT (AUTO) 3.1 K/uL (3.8-11.8)
[2022-10-22 07:34] LABS: ALBUMIN 2.8 g/dL (3.4-5.0); BILIRUBIN,TOTAL 0.3 mg/dL (0.2-1.0); CREATININE 0.6 mg/dL (0.6-1.3); MAGNESIUM 2.1 mg/dL (1.8-2.4); PHOSPHOROUS 3.7 mg/dL (2.5-4.9); TOTAL PROTEIN, SERUM 7.6 g/dL (6.4-8.2)
[2022-10-22 07:35] VITALS: TEMP 97.1
[2022-10-22 08:03] LABS: DIFFERENTIAL COMMENT 1
[2022-10-22] MEDS: HYDROGEN PEROXIDE 3% 118 ML BOTTLE TP SCH ×2 (08:19→21:00)
[2022-10-22] MEDS: DOCUSATE SODIUM 100 MG/10 ML LIQUID UDC GT SCH ×2 (08:36→20:18)
[2022-10-22] MEDS: ASPIRIN 81 MG TAB.CHEW GT SCH (08:36)
[2022-10-22] MEDS: levETIRAcetam 500 MG/5 ML LIQUID UDC GT SCH ×2 (08:37→20:18)
[2022-10-22] MEDS: METOPROLOL TARTRATE 25 MG TABLET GT SCH ×2 (08:37→20:19)
[2022-10-22] MEDS: REMEDY ESSENTIAL ZINC PASTE 113 GM TP SCH (08:38)
[2022-10-22] MEDS: DIAZEPAM 5 MG TABLET GT SCH ×2 (08:38→20:21)
[2022-10-22] MEDS: PHENOBARBITAL 64.8 MG TABLET GT SCH ×2 (08:38→20:20)
[2022-10-22] MEDS: CHLORHEXIDINE GLUCONATE 15 ML MOUTHWASH MM SCH (08:38)
[2022-10-22] MEDS: AMIODARONE 100 MG GT SCH (08:38)
[2022-10-22 20:00] VITALS: TEMP 98
[2022-10-22] MEDS: MAGNESIUM OXIDE 400 MG TABLET GT SCH (20:20)
[2022-10-22] MEDS: MULTIVIT, IRON, MIN NO. 8, FA TABLET GT SCH (20:21)
[2022-10-23] MEDS: VITAL AF 1.2 1,000 ML LIQUID GT PRN (03:29)
[2022-10-23] MEDS: OMEPRAZOLE 40 MG CAPSULE.DR GT SCH (06:05)
[2022-10-23] MEDS: POLYVINYL ALCOHOL OPHT DROPS 15 ML BOTTLE EACHEYE SCH ×2 (06:05→17:33)
[2022-10-23 08:00] VITALS: TEMP 98.6
[2022-10-23] MEDS: PHENOBARBITAL 64.8 MG TABLET GT SCH ×2 (08:11→20:13)
[2022-10-23] MEDS: DIAZEPAM 5 MG TABLET GT SCH ×2 (08:12→20:14)
[2022-10-23] MEDS: METOPROLOL TARTRATE 25 MG TABLET GT SCH ×2 (08:12→20:13)
[2022-10-23] MEDS: levETIRAcetam 500 MG/5 ML LIQUID UDC GT SCH ×2 (08:13→20:08)
[2022-10-23] MEDS: DOCUSATE SODIUM 100 MG/10 ML LIQUID UDC GT SCH ×2 (08:13→20:08)
[2022-10-23] MEDS: ASPIRIN 81 MG TAB.CHEW GT SCH (08:13)
[2022-10-23] MEDS: AMIODARONE 100 MG GT SCH (08:14)
[2022-10-23] MEDS: REMEDY ESSENTIAL ZINC PASTE 113 GM TP SCH (08:14)
[2022-10-23] MEDS: CHLORHEXIDINE GLUCONATE 15 ML MOUTHWASH MM SCH (08:14)
[2022-10-23] MEDS: HYDROGEN PEROXIDE 3% 118 ML BOTTLE TP SCH ×2 (09:40→21:29)
[2022-10-23 20:00] VITALS: TEMP 98.1
[2022-10-23] MEDS: MAGNESIUM OXIDE 400 MG TABLET GT SCH (20:13)
[2022-10-23] MEDS: MULTIVIT, IRON, MIN NO. 8, FA TABLET GT SCH (20:14)
[2022-10-24] MEDS: OMEPRAZOLE 40 MG CAPSULE.DR GT SCH (05:35)
[2022-10-24] MEDS: POLYVINYL ALCOHOL OPHT DROPS 15 ML BOTTLE EACHEYE SCH ×2 (05:35→17:30)
[2022-10-24] MEDS: DOCUSATE SODIUM 100 MG/10 ML LIQUID UDC GT SCH ×2 (09:04→20:12)
[2022-10-24] MEDS: ASPIRIN 81 MG TAB.CHEW GT SCH (09:04)
[2022-10-24] MEDS: levETIRAcetam 500 MG/5 ML LIQUID UDC GT SCH ×2 (09:06→20:12)
[2022-10-24] MEDS: PHENOBARBITAL 64.8 MG TABLET GT SCH ×2 (09:07→20:15)
[2022-10-24] MEDS: AMIODARONE 100 MG GT SCH (09:07)
[2022-10-24] MEDS: DIAZEPAM 5 MG TABLET GT SCH ×2 (09:07→20:16)
[2022-10-24] MEDS: REMEDY ESSENTIAL ZINC PASTE 113 GM TP SCH (09:08)
[2022-10-24] MEDS: CHLORHEXIDINE GLUCONATE 15 ML MOUTHWASH MM SCH (09:08)
[2022-10-24] MEDS: METOPROLOL TARTRATE 25 MG TABLET GT SCH ×2 (09:09→20:15)
[2022-10-24] MEDS: HYDROGEN PEROXIDE 3% 118 ML BOTTLE TP SCH ×2 (09:17→21:37)
[2022-10-24 11:36] VITALS: TEMP 98
[2022-10-24] MEDS: VITAL AF 1.2 1,000 ML LIQUID GT PRN (17:38)
[2022-10-24] MEDS: MAGNESIUM OXIDE 400 MG TABLET GT SCH (20:15)
[2022-10-24] MEDS: MULTIVIT, IRON, MIN NO. 8, FA TABLET GT SCH (20:16)
[2022-10-24 20:41] VITALS: TEMP 97.5
[2022-10-25] MEDS: OMEPRAZOLE 40 MG CAPSULE.DR GT SCH (05:42)
[2022-10-25] MEDS: POLYVINYL ALCOHOL OPHT DROPS 15 ML BOTTLE EACHEYE SCH ×2 (05:42→17:51)
[2022-10-25 07:39] VITALS: TEMP 98.3
[2022-10-25] MEDS: HYDROGEN PEROXIDE 3% 118 ML BOTTLE TP SCH ×2 (09:00→20:54)
[2022-10-25] MEDS: DOCUSATE SODIUM 100 MG/10 ML LIQUID UDC GT SCH ×2 (09:16→20:03)
[2022-10-25] MEDS: ASPIRIN 81 MG TAB.CHEW GT SCH (09:16)
[2022-10-25] MEDS: levETIRAcetam 500 MG/5 ML LIQUID UDC GT SCH ×2 (09:17→20:04)
[2022-10-25] MEDS: METOPROLOL TARTRATE 25 MG TABLET GT SCH ×2 (09:18→20:05)
[2022-10-25] MEDS: PHENOBARBITAL 64.8 MG TABLET GT SCH ×2 (09:18→20:05)
[2022-10-25] MEDS: DIAZEPAM 5 MG TABLET GT SCH ×2 (09:18→20:06)
[2022-10-25] MEDS: AMIODARONE 100 MG GT SCH (09:18)
[2022-10-25] MEDS: CHLORHEXIDINE GLUCONATE 15 ML MOUTHWASH MM SCH (09:19)
[2022-10-25] MEDS: REMEDY ESSENTIAL ZINC PASTE 113 GM TP SCH (09:19)
[2022-10-25 20:00] VITALS: TEMP 98
[2022-10-25] MEDS: MAGNESIUM OXIDE 400 MG TABLET GT SCH (20:05)
[2022-10-25] MEDS: MULTIVIT, IRON, MIN NO. 8, FA TABLET GT SCH (20:06)
[2022-10-26] MEDS: VITAL 1.5 CAL LIQUID GT PRN (04:00)
[2022-10-26] MEDS: POLYVINYL ALCOHOL OPHT DROPS 15 ML BOTTLE EACHEYE SCH ×2 (05:50→17:36)
[2022-10-26] MEDS: OMEPRAZOLE 40 MG CAPSULE.DR GT SCH (05:50)
[2022-10-26 07:38] VITALS: TEMP 98.1
[2022-10-26] MEDS: levETIRAcetam 500 MG/5 ML LIQUID UDC GT SCH ×2 (08:20→20:36)
[2022-10-26] MEDS: ASPIRIN 81 MG TAB.CHEW GT SCH (08:20)
[2022-10-26] MEDS: DOCUSATE SODIUM 100 MG/10 ML LIQUID UDC GT SCH ×2 (08:20→20:36)
[2022-10-26] MEDS: METOPROLOL TARTRATE 25 MG TABLET GT SCH ×2 (08:22→20:37)
[2022-10-26] MEDS: AMIODARONE 100 MG GT SCH (08:22)
[2022-10-26] MEDS: PHENOBARBITAL 64.8 MG TABLET GT SCH ×2 (08:24→20:37)
[2022-10-26] MEDS: DIAZEPAM 5 MG TABLET GT SCH ×2 (08:25→20:37)
[2022-10-26] MEDS: CHLORHEXIDINE GLUCONATE 15 ML MOUTHWASH MM SCH (09:00)
[2022-10-26] MEDS: REMEDY ESSENTIAL ZINC PASTE 113 GM TP SCH (09:00)
[2022-10-26] MEDS: HYDROGEN PEROXIDE 3% 118 ML BOTTLE TP SCH ×2 (09:15→21:11)
[2022-10-26] MEDS: MAGNESIUM OXIDE 400 MG TABLET GT SCH (20:37)
[2022-10-26] MEDS: MULTIVIT, IRON, MIN NO. 8, FA TABLET GT SCH (20:37)
[2022-10-26 21:34] VITALS: TEMP 98
[2022-10-27] MEDS: OMEPRAZOLE 40 MG CAPSULE.DR GT SCH (05:18)
[2022-10-27] MEDS: POLYVINYL ALCOHOL OPHT DROPS 15 ML BOTTLE EACHEYE SCH ×2 (05:18→18:12)
[2022-10-27 07:39] VITALS: TEMP 97.7
[2022-10-27] MEDS: HYDROGEN PEROXIDE 3% 118 ML BOTTLE TP SCH ×2 (08:38→21:05)
[2022-10-27] MEDS: ASPIRIN 81 MG TAB.CHEW GT SCH (08:42)
[2022-10-27] MEDS: DOCUSATE SODIUM 100 MG/10 ML LIQUID UDC GT SCH ×2 (08:42→20:39)
[2022-10-27] MEDS: levETIRAcetam 500 MG/5 ML LIQUID UDC GT SCH ×2 (08:43→20:39)
[2022-10-27] MEDS: METOPROLOL TARTRATE 25 MG TABLET GT SCH ×2 (08:46→20:40)
[2022-10-27] MEDS: DIAZEPAM 5 MG TABLET GT SCH ×2 (08:47→20:40)
[2022-10-27] MEDS: PHENOBARBITAL 64.8 MG TABLET GT SCH ×2 (08:47→20:40)
[2022-10-27] MEDS: CHLORHEXIDINE GLUCONATE 15 ML MOUTHWASH MM SCH (08:47)
[2022-10-27] MEDS: AMIODARONE 100 MG GT SCH (08:47)
[2022-10-27] MEDS: REMEDY ESSENTIAL ZINC PASTE 113 GM TP SCH (08:48)
[2022-10-27] MEDS: VITAL 1.5 CAL LIQUID GT PRN (16:30)
[2022-10-27 20:36] VITALS: TEMP 97.4
[2022-10-27] MEDS: MULTIVIT, IRON, MIN NO. 8, FA TABLET GT SCH (20:40)
[2022-10-27] MEDS: MAGNESIUM OXIDE 400 MG TABLET GT SCH (20:40)
[2022-10-28] MEDS: OMEPRAZOLE 40 MG CAPSULE.DR GT SCH (05:14)
[2022-10-28] MEDS: POLYVINYL ALCOHOL OPHT DROPS 15 ML BOTTLE EACHEYE SCH ×2 (05:14→17:04)
[2022-10-28 08:00] VITALS: TEMP 97.8
[2022-10-28] MEDS: ASPIRIN 81 MG TAB.CHEW GT SCH (08:18)
[2022-10-28] MEDS: levETIRAcetam 500 MG/5 ML LIQUID UDC GT SCH ×2 (08:18→21:16)
[2022-10-28] MEDS: DOCUSATE SODIUM 100 MG/10 ML LIQUID UDC GT SCH ×2 (08:18→21:16)
[2022-10-28] MEDS: PHENOBARBITAL 64.8 MG TABLET GT SCH ×2 (08:19→21:27)
[2022-10-28] MEDS: AMIODARONE 100 MG GT SCH (08:19)
[2022-10-28] MEDS: METOPROLOL TARTRATE 25 MG TABLET GT SCH ×2 (08:19→21:16)
[2022-10-28] MEDS: REMEDY ESSENTIAL ZINC PASTE 113 GM TP SCH (08:20)
[2022-10-28] MEDS: DIAZEPAM 5 MG TABLET GT SCH ×2 (08:20→21:27)
[2022-10-28] MEDS: CHLORHEXIDINE GLUCONATE 15 ML MOUTHWASH MM SCH (08:20)
[2022-10-28] MEDS: HYDROGEN PEROXIDE 3% 118 ML BOTTLE TP SCH ×2 (08:22→21:00)
[2022-10-28 20:26] VITALS: TEMP 97.5
[2022-10-28] MEDS: MULTIVIT, IRON, MIN NO. 8, FA TABLET GT SCH (21:17)
[2022-10-28] MEDS: MAGNESIUM OXIDE 400 MG TABLET GT SCH (21:17)
[2022-10-29] MEDS: POLYVINYL ALCOHOL OPHT DROPS 15 ML BOTTLE EACHEYE SCH ×2 (05:10→17:21)
[2022-10-29] MEDS: OMEPRAZOLE 40 MG CAPSULE.DR GT SCH (05:10)
[2022-10-29 07:42] VITALS: TEMP 97.4
[2022-10-29] MEDS: DOCUSATE SODIUM 100 MG/10 ML LIQUID UDC GT SCH ×2 (08:14→20:14)
[2022-10-29] MEDS: ASPIRIN 81 MG TAB.CHEW GT SCH (08:14)
[2022-10-29] MEDS: levETIRAcetam 500 MG/5 ML LIQUID UDC GT SCH ×2 (08:14→20:14)
[2022-10-29] MEDS: DIAZEPAM 5 MG TABLET GT SCH ×2 (08:15→20:32)
[2022-10-29] MEDS: PHENOBARBITAL 64.8 MG TABLET GT SCH ×2 (08:15→20:32)
[2022-10-29] MEDS: METOPROLOL TARTRATE 25 MG TABLET GT SCH ×2 (08:15→20:32)
[2022-10-29] MEDS: AMIODARONE 100 MG GT SCH (08:15)
[2022-10-29] MEDS: REMEDY ESSENTIAL ZINC PASTE 113 GM TP SCH (08:16)
[2022-10-29] MEDS: CHLORHEXIDINE GLUCONATE 15 ML MOUTHWASH MM SCH (08:16)
[2022-10-29] MEDS: HYDROGEN PEROXIDE 3% 118 ML BOTTLE TP SCH ×2 (08:43→21:00)
[2022-10-29 20:00] VITALS: TEMP 99
[2022-10-29] MEDS: MULTIVIT, IRON, MIN NO. 8, FA TABLET GT SCH (20:32)
[2022-10-29] MEDS: MAGNESIUM OXIDE 400 MG TABLET GT SCH (20:32)
[2022-10-30] MEDS: VITAL 1.5 CAL LIQUID GT PRN (03:30)
[2022-10-30] MEDS: POLYVINYL ALCOHOL OPHT DROPS 15 ML BOTTLE EACHEYE SCH ×2 (05:51→17:11)
[2022-10-30] MEDS: OMEPRAZOLE 40 MG CAPSULE.DR GT SCH (05:51)
[2022-10-30 07:15] VITALS: TEMP 97.8
[2022-10-30] MEDS: DOCUSATE SODIUM 100 MG/10 ML LIQUID UDC GT SCH ×2 (08:24→20:05)
[2022-10-30] MEDS: ASPIRIN 81 MG TAB.CHEW GT SCH (08:24)
[2022-10-30] MEDS: METOPROLOL TARTRATE 25 MG TABLET GT SCH ×2 (08:25→20:08)
[2022-10-30] MEDS: levETIRAcetam 500 MG/5 ML LIQUID UDC GT SCH ×2 (08:25→20:05)
[2022-10-30] MEDS: AMIODARONE 100 MG GT SCH (08:26)
[2022-10-30] MEDS: DIAZEPAM 5 MG TABLET GT SCH ×2 (08:26→20:08)
[2022-10-30] MEDS: CHLORHEXIDINE GLUCONATE 15 ML MOUTHWASH MM SCH (08:26)
[2022-10-30] MEDS: PHENOBARBITAL 64.8 MG TABLET GT SCH ×2 (08:26→20:08)
[2022-10-30] MEDS: REMEDY ESSENTIAL ZINC PASTE 113 GM TP SCH (08:26)
[2022-10-30] MEDS: HYDROGEN PEROXIDE 3% 118 ML BOTTLE TP SCH ×2 (09:00→19:12)
[2022-10-30] MEDS: MULTIVIT, IRON, MIN NO. 8, FA TABLET GT SCH (20:07)
[2022-10-30] MEDS: MAGNESIUM OXIDE 400 MG TABLET GT SCH (20:08)
[2022-10-30 20:23] VITALS: TEMP 98.1
[2022-10-30] MEDS: ACETAMINOPHEN 650 MG/20 ML UDC- SA PATIENTS-PAIN ONLY GT PRN (21:00)
[2022-10-31] MEDS: OMEPRAZOLE 40 MG CAPSULE.DR GT SCH (05:25)
[2022-10-31] MEDS: POLYVINYL ALCOHOL OPHT DROPS 15 ML BOTTLE EACHEYE SCH ×2 (05:25→17:07)
[2022-10-31 07:19] VITALS: TEMP 98
[2022-10-31] MEDS: HYDROGEN PEROXIDE 3% 118 ML BOTTLE TP SCH ×2 (07:37→21:00)
[2022-10-31] MEDS: ASPIRIN 81 MG TAB.CHEW GT SCH (08:11)
[2022-10-31] MEDS: DOCUSATE SODIUM 100 MG/10 ML LIQUID UDC GT SCH ×2 (08:12→20:26)
[2022-10-31] MEDS: levETIRAcetam 500 MG/5 ML LIQUID UDC GT SCH ×2 (08:12→20:26)
[2022-10-31] MEDS: AMIODARONE 100 MG GT SCH (08:13)
[2022-10-31] MEDS: METOPROLOL TARTRATE 25 MG TABLET GT SCH ×2 (08:13→20:28)
[2022-10-31] MEDS: PHENOBARBITAL 64.8 MG TABLET GT SCH ×2 (08:13→20:28)
[2022-10-31] MEDS: DIAZEPAM 5 MG TABLET GT SCH ×2 (08:13→20:29)
[2022-10-31] MEDS: CHLORHEXIDINE GLUCONATE 15 ML MOUTHWASH MM SCH (08:14)
[2022-10-31] MEDS: REMEDY ESSENTIAL ZINC PASTE 113 GM TP SCH (08:14)
[2022-10-31] MEDS: VITAL 1.5 CAL LIQUID GT PRN (14:55)
[2022-10-31 19:46] VITALS: TEMP 98.7
[2022-10-31] MEDS: MULTIVIT, IRON, MIN NO. 8, FA TABLET GT SCH (20:28)
[2022-10-31] MEDS: MAGNESIUM OXIDE 400 MG TABLET GT SCH (20:28)
[2022-11-01] MEDS: POLYVINYL ALCOHOL OPHT DROPS 15 ML BOTTLE EACHEYE SCH ×2 (05:37→17:15)
[2022-11-01] MEDS: OMEPRAZOLE 40 MG CAPSULE.DR GT SCH (05:37)
[2022-11-01] MEDS: HYDROGEN PEROXIDE 3% 118 ML BOTTLE TP SCH ×2 (08:34→20:34)
[2022-11-01] MEDS: DOCUSATE SODIUM 100 MG/10 ML LIQUID UDC GT SCH ×2 (08:45→20:12)
[2022-11-01] MEDS: ASPIRIN 81 MG TAB.CHEW GT SCH (08:45)
[2022-11-01] MEDS: levETIRAcetam 500 MG/5 ML LIQUID UDC GT SCH ×2 (08:46→20:12)
[2022-11-01] MEDS: CHLORHEXIDINE GLUCONATE 15 ML MOUTHWASH MM SCH (08:47)
[2022-11-01] MEDS: AMIODARONE 100 MG GT SCH (08:47)
[2022-11-01] MEDS: DIAZEPAM 5 MG TABLET GT SCH ×2 (08:47→20:15)
[2022-11-01] MEDS: PHENOBARBITAL 64.8 MG TABLET GT SCH ×2 (08:47→20:14)
[2022-11-01] MEDS: METOPROLOL TARTRATE 25 MG TABLET GT SCH ×2 (08:47→20:13)
[2022-11-01] MEDS: REMEDY ESSENTIAL ZINC PASTE 113 GM TP SCH (08:48)
[2022-11-01 20:00] VITALS: TEMP 98.1
[2022-11-01] MEDS: MAGNESIUM OXIDE 400 MG TABLET GT SCH (20:14)
[2022-11-01] MEDS: MULTIVIT, IRON, MIN NO. 8, FA TABLET GT SCH (20:14)
[2022-11-02] MEDS: VITAL 1.5 CAL LIQUID GT PRN (02:00)
[2022-11-02] MEDS: BISACODYL 10 MG SUPP.RECT RC PRN (04:00)
[2022-11-02] MEDS: POLYVINYL ALCOHOL OPHT DROPS 15 ML BOTTLE EACHEYE SCH ×2 (05:48→17:20)
[2022-11-02] MEDS: OMEPRAZOLE 40 MG CAPSULE.DR GT SCH (05:49)
[2022-11-02 07:27] VITALS: TEMP 98.8
[2022-11-02] MEDS: HYDROGEN PEROXIDE 3% 118 ML BOTTLE TP SCH ×2 (08:07→21:22)
[2022-11-02] MEDS: ASPIRIN 81 MG TAB.CHEW GT SCH (09:16)
[2022-11-02] MEDS: DOCUSATE SODIUM 100 MG/10 ML LIQUID UDC GT SCH ×2 (09:17→20:16)
[2022-11-02] MEDS: levETIRAcetam 500 MG/5 ML LIQUID UDC GT SCH ×2 (09:17→20:16)
[2022-11-02] MEDS: METOPROLOL TARTRATE 25 MG TABLET GT SCH ×2 (09:17→20:33)
[2022-11-02] MEDS: PHENOBARBITAL 64.8 MG TABLET GT SCH ×2 (09:17→21:00)
[2022-11-02] MEDS: REMEDY ESSENTIAL ZINC PASTE 113 GM TP SCH (09:18)
[2022-11-02] MEDS: AMIODARONE 100 MG GT SCH (09:18)
[2022-11-02] MEDS: DIAZEPAM 5 MG TABLET GT SCH ×2 (09:18→20:33)
[2022-11-02] MEDS: CHLORHEXIDINE GLUCONATE 15 ML MOUTHWASH MM SCH (09:18)
[2022-11-02 15:00] VITALS: O2SAT 99
[2022-11-02 20:00] VITALS: TEMP 98.1
[2022-11-02] MEDS: MULTIVIT, IRON, MIN NO. 8, FA TABLET GT SCH (20:27)
[2022-11-02] MEDS: MAGNESIUM OXIDE 400 MG TABLET GT SCH (20:27)
[2022-11-03] MEDS: POLYVINYL ALCOHOL OPHT DROPS 15 ML BOTTLE EACHEYE SCH ×2 (05:29→17:01)
[2022-11-03] MEDS: OMEPRAZOLE 40 MG CAPSULE.DR GT SCH (05:29)
[2022-11-03] MEDS: VITAL 1.5 CAL LIQUID GT PRN (06:28)
[2022-11-03 08:06] VITALS: TEMP 97.7
[2022-11-03] MEDS: DOCUSATE SODIUM 100 MG/10 ML LIQUID UDC GT SCH ×2 (08:10→21:17)
[2022-11-03] MEDS: ASPIRIN 81 MG TAB.CHEW GT SCH (08:10)
[2022-11-03] MEDS: levETIRAcetam 500 MG/5 ML LIQUID UDC GT SCH ×2 (08:11→21:00)
[2022-11-03] MEDS: METOPROLOL TARTRATE 25 MG TABLET GT SCH ×2 (08:14→21:20)
[2022-11-03] MEDS: PHENOBARBITAL 64.8 MG TABLET GT SCH ×2 (08:15→21:21)
[2022-11-03] MEDS: AMIODARONE 100 MG GT SCH (08:15)
[2022-11-03] MEDS: DIAZEPAM 5 MG TABLET GT SCH ×2 (08:15→21:21)
[2022-11-03] MEDS: CHLORHEXIDINE GLUCONATE 15 ML MOUTHWASH MM SCH (08:16)
[2022-11-03] MEDS: REMEDY ESSENTIAL ZINC PASTE 113 GM TP SCH (08:16)
[2022-11-03] MEDS: HYDROGEN PEROXIDE 3% 118 ML BOTTLE TP SCH ×2 (09:00→20:57)
[2022-11-03 20:40] VITALS: TEMP 97.6
[2022-11-03] MEDS: MULTIVIT, IRON, MIN NO. 8, FA TABLET GT SCH (21:21)
[2022-11-03] MEDS: MAGNESIUM OXIDE 400 MG TABLET GT SCH (21:21)
[2022-11-04] MEDS: OMEPRAZOLE 40 MG CAPSULE.DR GT SCH (05:18)
[2022-11-04] MEDS: POLYVINYL ALCOHOL OPHT DROPS 15 ML BOTTLE EACHEYE SCH ×2 (05:18→18:04)
[2022-11-04] MEDS: HYDROGEN PEROXIDE 3% 118 ML BOTTLE TP SCH ×2 (07:38→21:03)
[2022-11-04 07:42] VITALS: TEMP 97.8
[2022-11-04] MEDS: PHENOBARBITAL 64.8 MG TABLET GT SCH ×2 (09:00→21:15)
[2022-11-04] MEDS: METOPROLOL TARTRATE 25 MG TABLET GT SCH ×2 (09:00→21:15)
[2022-11-04] MEDS: CHLORHEXIDINE GLUCONATE 15 ML MOUTHWASH MM SCH (09:00)
[2022-11-04] MEDS: REMEDY ESSENTIAL ZINC PASTE 113 GM TP SCH (09:00)
[2022-11-04] MEDS: DOCUSATE SODIUM 100 MG/10 ML LIQUID UDC GT SCH ×2 (09:00→21:15)
[2022-11-04] MEDS: levETIRAcetam 500 MG/5 ML LIQUID UDC GT SCH ×2 (09:00→21:15)
[2022-11-04] MEDS: AMIODARONE 100 MG GT SCH (09:00)
[2022-11-04] MEDS: ASPIRIN 81 MG TAB.CHEW GT SCH (09:00)
[2022-11-04] MEDS: DIAZEPAM 5 MG TABLET GT SCH ×2 (09:00→21:16)
[2022-11-04 19:59] VITALS: TEMP 98.6
[2022-11-04] MEDS: MULTIVIT, IRON, MIN NO. 8, FA TABLET GT SCH (21:16)
[2022-11-04] MEDS: MAGNESIUM OXIDE 400 MG TABLET GT SCH (21:16)
[2022-11-05] MEDS: OMEPRAZOLE 40 MG CAPSULE.DR GT SCH (06:13)
[2022-11-05] MEDS: POLYVINYL ALCOHOL OPHT DROPS 15 ML BOTTLE EACHEYE SCH ×2 (06:13→17:28)
[2022-11-05] MEDS: HYDROGEN PEROXIDE 3% 118 ML BOTTLE TP SCH ×2 (08:22→21:07)
[2022-11-05] MEDS: DOCUSATE SODIUM 100 MG/10 ML LIQUID UDC GT SCH ×2 (09:13→20:27)
[2022-11-05] MEDS: levETIRAcetam 500 MG/5 ML LIQUID UDC GT SCH ×2 (09:13→20:29)
[2022-11-05] MEDS: ASPIRIN 81 MG TAB.CHEW GT SCH (09:13)
[2022-11-05] MEDS: CHLORHEXIDINE GLUCONATE 15 ML MOUTHWASH MM SCH (09:15)
[2022-11-05] MEDS: PHENOBARBITAL 64.8 MG TABLET GT SCH ×2 (09:15→20:36)
[2022-11-05] MEDS: AMIODARONE 100 MG GT SCH (09:15)
[2022-11-05] MEDS: DIAZEPAM 5 MG TABLET GT SCH ×2 (09:15→20:36)
[2022-11-05] MEDS: METOPROLOL TARTRATE 25 MG TABLET GT SCH ×2 (09:15→20:29)
[2022-11-05] MEDS: REMEDY ESSENTIAL ZINC PASTE 113 GM TP SCH (09:16)
[2022-11-05 09:41] VITALS: TEMP 97.7
[2022-11-05 20:25] VITALS: TEMP 97.9
[2022-11-05] MEDS: MAGNESIUM OXIDE 400 MG TABLET GT SCH (20:30)
[2022-11-05] MEDS: MULTIVIT, IRON, MIN NO. 8, FA TABLET GT SCH (20:30)
[2022-11-06] MEDS: POLYVINYL ALCOHOL OPHT DROPS 15 ML BOTTLE EACHEYE SCH ×2 (05:25→17:15)
[2022-11-06] MEDS: OMEPRAZOLE 40 MG CAPSULE.DR GT SCH (05:26)
[2022-11-06 07:11] VITALS: TEMP 98.4
[2022-11-06] MEDS: ASPIRIN 81 MG TAB.CHEW GT SCH (08:32)
[2022-11-06] MEDS: PHENOBARBITAL 64.8 MG TABLET GT SCH ×2 (08:32→21:58)
[2022-11-06] MEDS: DOCUSATE SODIUM 100 MG/10 ML LIQUID UDC GT SCH ×2 (08:32→21:57)
[2022-11-06] MEDS: levETIRAcetam 500 MG/5 ML LIQUID UDC GT SCH ×2 (08:32→21:57)
[2022-11-06] MEDS: DIAZEPAM 5 MG TABLET GT SCH ×2 (08:32→21:58)
[2022-11-06] MEDS: METOPROLOL TARTRATE 25 MG TABLET GT SCH ×2 (08:35→21:58)
[2022-11-06] MEDS: AMIODARONE 100 MG GT SCH (08:35)
[2022-11-06] MEDS: REMEDY ESSENTIAL ZINC PASTE 113 GM TP SCH (08:36)
[2022-11-06] MEDS: CHLORHEXIDINE GLUCONATE 15 ML MOUTHWASH MM SCH (08:36)
[2022-11-06] MEDS: HYDROGEN PEROXIDE 3% 118 ML BOTTLE TP SCH ×2 (09:16→21:00)
[2022-11-06 20:14] VITALS: TEMP 98.6
[2022-11-06] MEDS: MAGNESIUM OXIDE 400 MG TABLET GT SCH (21:58)
[2022-11-06] MEDS: MULTIVIT, IRON, MIN NO. 8, FA TABLET GT SCH (21:58)
[2022-11-07] MEDS: VITAL 1.5 CAL LIQUID GT PRN (03:49)
[2022-11-07] MEDS: POLYVINYL ALCOHOL OPHT DROPS 15 ML BOTTLE EACHEYE SCH ×2 (05:12→17:29)
[2022-11-07] MEDS: OMEPRAZOLE 40 MG CAPSULE.DR GT SCH (05:12)
[2022-11-07 07:33] VITALS: TEMP 98.7
[2022-11-07] MEDS: HYDROGEN PEROXIDE 3% 118 ML BOTTLE TP SCH ×2 (08:11→19:18)
[2022-11-07] MEDS: ASPIRIN 81 MG TAB.CHEW GT SCH (08:18)
[2022-11-07] MEDS: levETIRAcetam 500 MG/5 ML LIQUID UDC GT SCH ×2 (08:18→20:19)
[2022-11-07] MEDS: DOCUSATE SODIUM 100 MG/10 ML LIQUID UDC GT SCH ×2 (08:18→20:19)
[2022-11-07] MEDS: METOPROLOL TARTRATE 25 MG TABLET GT SCH ×2 (08:19→21:00)
[2022-11-07] MEDS: PHENOBARBITAL 64.8 MG TABLET GT SCH ×2 (08:20→20:20)
[2022-11-07] MEDS: AMIODARONE 100 MG GT SCH (08:20)
[2022-11-07] MEDS: REMEDY ESSENTIAL ZINC PASTE 113 GM TP SCH (08:20)
[2022-11-07] MEDS: DIAZEPAM 5 MG TABLET GT SCH ×2 (08:20→20:20)
[2022-11-07] MEDS: CHLORHEXIDINE GLUCONATE 15 ML MOUTHWASH MM SCH (08:20)
[2022-11-07 20:00] VITALS: TEMP 98.5
[2022-11-07] MEDS: MAGNESIUM OXIDE 400 MG TABLET GT SCH (20:20)
[2022-11-07] MEDS: MULTIVIT, IRON, MIN NO. 8, FA TABLET GT SCH (20:20)
[2022-11-08] MEDS: OMEPRAZOLE 40 MG CAPSULE.DR GT SCH (05:23)
[2022-11-08] MEDS: POLYVINYL ALCOHOL OPHT DROPS 15 ML BOTTLE EACHEYE SCH ×2 (05:23→18:48)
[2022-11-08] MEDS: HYDROGEN PEROXIDE 3% 118 ML BOTTLE TP SCH ×2 (07:54→19:15)
[2022-11-08 08:02] VITALS: TEMP 98.3
[2022-11-08] MEDS: ASPIRIN 81 MG TAB.CHEW GT SCH (08:49)
[2022-11-08] MEDS: DOCUSATE SODIUM 100 MG/10 ML LIQUID UDC GT SCH ×2 (08:49→21:51)
[2022-11-08] MEDS: levETIRAcetam 500 MG/5 ML LIQUID UDC GT SCH ×2 (08:49→21:51)
[2022-11-08] MEDS: REMEDY ESSENTIAL ZINC PASTE 113 GM TP SCH (08:50)
[2022-11-08] MEDS: CHLORHEXIDINE GLUCONATE 15 ML MOUTHWASH MM SCH (08:50)
[2022-11-08] MEDS: AMIODARONE 100 MG GT SCH (08:50)
[2022-11-08] MEDS: PHENOBARBITAL 64.8 MG TABLET GT SCH ×2 (08:50→21:52)
[2022-11-08] MEDS: METOPROLOL TARTRATE 25 MG TABLET GT SCH ×2 (08:50→21:52)
[2022-11-08] MEDS: DIAZEPAM 5 MG TABLET GT SCH ×2 (08:50→21:52)
[2022-11-08 20:00] VITALS: TEMP 98.6
[2022-11-08] MEDS: MAGNESIUM OXIDE 400 MG TABLET GT SCH (21:52)
[2022-11-08] MEDS: MULTIVIT, IRON, MIN NO. 8, FA TABLET GT SCH (21:52)
[2022-11-09] MEDS: POLYVINYL ALCOHOL OPHT DROPS 15 ML BOTTLE EACHEYE SCH ×2 (05:32→17:26)
[2022-11-09] MEDS: OMEPRAZOLE 40 MG CAPSULE.DR GT SCH (05:32)
[2022-11-09 07:22] VITALS: TEMP 98.9
[2022-11-09] MEDS: ASPIRIN 81 MG TAB.CHEW GT SCH (08:47)
[2022-11-09] MEDS: DOCUSATE SODIUM 100 MG/10 ML LIQUID UDC GT SCH ×2 (08:48→20:44)
[2022-11-09] MEDS: levETIRAcetam 500 MG/5 ML LIQUID UDC GT SCH ×2 (08:49→20:44)
[2022-11-09] MEDS: METOPROLOL TARTRATE 25 MG TABLET GT SCH ×2 (08:50→20:46)
[2022-11-09] MEDS: PHENOBARBITAL 64.8 MG TABLET GT SCH ×2 (08:50→20:45)
[2022-11-09] MEDS: REMEDY ESSENTIAL ZINC PASTE 113 GM TP SCH (08:51)
[2022-11-09] MEDS: AMIODARONE 100 MG GT SCH (08:51)
[2022-11-09] MEDS: DIAZEPAM 5 MG TABLET GT SCH ×2 (08:51→20:45)
[2022-11-09] MEDS: CHLORHEXIDINE GLUCONATE 15 ML MOUTHWASH MM SCH (08:51)
[2022-11-09] MEDS: HYDROGEN PEROXIDE 3% 118 ML BOTTLE TP SCH ×2 (09:00→19:18)
[2022-11-09] MEDS: VITAL 1.5 CAL LIQUID GT PRN (16:38)
[2022-11-09 20:00] VITALS: TEMP 98.8
[2022-11-09] MEDS: MULTIVIT, IRON, MIN NO. 8, FA TABLET GT SCH (20:45)
[2022-11-09] MEDS: MAGNESIUM OXIDE 400 MG TABLET GT SCH (20:45)
[2022-11-10] MEDS: OMEPRAZOLE 40 MG CAPSULE.DR GT SCH (05:17)
[2022-11-10] MEDS: POLYVINYL ALCOHOL OPHT DROPS 15 ML BOTTLE EACHEYE SCH ×2 (05:17→17:44)
[2022-11-10 07:38] VITALS: TEMP 97.2
[2022-11-10] MEDS: HYDROGEN PEROXIDE 3% 118 ML BOTTLE TP SCH ×2 (09:00→21:00)
[2022-11-10] MEDS: ASPIRIN 81 MG TAB.CHEW GT SCH (09:03)
[2022-11-10] MEDS: DOCUSATE SODIUM 100 MG/10 ML LIQUID UDC GT SCH ×2 (09:03→21:00)
[2022-11-10] MEDS: levETIRAcetam 500 MG/5 ML LIQUID UDC GT SCH ×2 (09:04→21:00)
[2022-11-10] MEDS: METOPROLOL TARTRATE 25 MG TABLET GT SCH ×2 (09:04→21:00)
[2022-11-10] MEDS: PHENOBARBITAL 64.8 MG TABLET GT SCH ×2 (09:05→21:00)
[2022-11-10] MEDS: CHLORHEXIDINE GLUCONATE 15 ML MOUTHWASH MM SCH (09:05)
[2022-11-10] MEDS: REMEDY ESSENTIAL ZINC PASTE 113 GM TP SCH (09:05)
[2022-11-10] MEDS: DIAZEPAM 5 MG TABLET GT SCH ×2 (09:05→21:00)
[2022-11-10] MEDS: AMIODARONE 100 MG GT SCH (09:05)
[2022-11-10] MEDS: VITAL 1.5 CAL LIQUID GT PRN (17:59)
[2022-11-10 20:00] VITALS: TEMP 99.5
[2022-11-10] MEDS: MULTIVIT, IRON, MIN NO. 8, FA TABLET GT SCH (21:00)
[2022-11-10] MEDS: MAGNESIUM OXIDE 400 MG TABLET GT SCH (21:00)
[2022-11-11] MEDS: OMEPRAZOLE 40 MG CAPSULE.DR GT SCH (05:54)
[2022-11-11] MEDS: POLYVINYL ALCOHOL OPHT DROPS 15 ML BOTTLE EACHEYE SCH ×2 (05:54→17:32)
[2022-11-11] MEDS: HYDROGEN PEROXIDE 3% 118 ML BOTTLE TP SCH ×2 (07:43→19:25)
[2022-11-11 08:06] VITALS: TEMP 98.7
[2022-11-11] MEDS: ASPIRIN 81 MG TAB.CHEW GT SCH (08:51)
[2022-11-11] MEDS: DOCUSATE SODIUM 100 MG/10 ML LIQUID UDC GT SCH ×2 (08:51→20:36)
[2022-11-11] MEDS: levETIRAcetam 500 MG/5 ML LIQUID UDC GT SCH ×2 (08:51→20:36)
[2022-11-11] MEDS: REMEDY ESSENTIAL ZINC PASTE 113 GM TP SCH (08:52)
[2022-11-11] MEDS: PHENOBARBITAL 64.8 MG TABLET GT SCH ×2 (08:52→20:36)
[2022-11-11] MEDS: DIAZEPAM 5 MG TABLET GT SCH ×2 (08:52→20:37)
[2022-11-11] MEDS: METOPROLOL TARTRATE 25 MG TABLET GT SCH ×2 (08:52→20:38)
[2022-11-11] MEDS: CHLORHEXIDINE GLUCONATE 15 ML MOUTHWASH MM SCH (08:52)
[2022-11-11] MEDS: AMIODARONE 100 MG GT SCH (08:52)
[2022-11-11] MEDS: MAGNESIUM OXIDE 400 MG TABLET GT SCH (20:36)
[2022-11-11] MEDS: MULTIVIT, IRON, MIN NO. 8, FA TABLET GT SCH (20:37)
[2022-11-11 20:40] VITALS: TEMP 98.8
[2022-11-12] MEDS: OMEPRAZOLE 40 MG CAPSULE.DR GT SCH (06:34)
[2022-11-12] MEDS: POLYVINYL ALCOHOL OPHT DROPS 15 ML BOTTLE EACHEYE SCH ×2 (06:35→18:27)
[2022-11-12 07:50] VITALS: TEMP 97.7
[2022-11-12] MEDS: HYDROGEN PEROXIDE 3% 118 ML BOTTLE TP SCH ×2 (09:23→21:21)
[2022-11-12] MEDS: DOCUSATE SODIUM 100 MG/10 ML LIQUID UDC GT SCH ×2 (09:55→21:00)
[2022-11-12] MEDS: ASPIRIN 81 MG TAB.CHEW GT SCH (09:55)
[2022-11-12] MEDS: DIAZEPAM 5 MG TABLET GT SCH ×2 (09:55→21:00)
[2022-11-12] MEDS: REMEDY ESSENTIAL ZINC PASTE 113 GM TP SCH (09:55)
[2022-11-12] MEDS: CHLORHEXIDINE GLUCONATE 15 ML MOUTHWASH MM SCH (09:55)
[2022-11-12] MEDS: levETIRAcetam 500 MG/5 ML LIQUID UDC GT SCH ×2 (09:56→21:00)
[2022-11-12] MEDS: METOPROLOL TARTRATE 25 MG TABLET GT SCH ×2 (09:58→21:00)
[2022-11-12] MEDS: AMIODARONE 100 MG GT SCH (09:59)
[2022-11-12] MEDS: PHENOBARBITAL 64.8 MG TABLET GT SCH ×2 (09:59→21:00)
[2022-11-12 20:32] VITALS: TEMP 98.6
[2022-11-12] MEDS: MULTIVIT, IRON, MIN NO. 8, FA TABLET GT SCH (21:00)
[2022-11-12] MEDS: MAGNESIUM OXIDE 400 MG TABLET GT SCH (21:00)
[2022-11-13] MEDS: POLYVINYL ALCOHOL OPHT DROPS 15 ML BOTTLE EACHEYE SCH ×2 (06:51→17:20)
[2022-11-13] MEDS: OMEPRAZOLE 40 MG CAPSULE.DR GT SCH (06:51)
[2022-11-13] MEDS: VITAL 1.5 CAL LIQUID GT PRN (06:51)
[2022-11-13 07:12] VITALS: TEMP 98.5
[2022-11-13] MEDS: HYDROGEN PEROXIDE 3% 118 ML BOTTLE TP SCH ×2 (07:23→20:26)
[2022-11-13] MEDS: PHENOBARBITAL 64.8 MG TABLET GT SCH ×2 (08:08→20:34)
[2022-11-13] MEDS: DIAZEPAM 5 MG TABLET GT SCH ×2 (08:08→20:34)
[2022-11-13] MEDS: AMIODARONE 100 MG GT SCH (08:09)
[2022-11-13] MEDS: ASPIRIN 81 MG TAB.CHEW GT SCH (08:10)
[2022-11-13] MEDS: CHLORHEXIDINE GLUCONATE 15 ML MOUTHWASH MM SCH (08:10)
[2022-11-13] MEDS: DOCUSATE SODIUM 100 MG/10 ML LIQUID UDC GT SCH ×2 (08:10→20:33)
[2022-11-13] MEDS: METOPROLOL TARTRATE 25 MG TABLET GT SCH ×2 (08:10→20:33)
[2022-11-13] MEDS: levETIRAcetam 500 MG/5 ML LIQUID UDC GT SCH ×2 (08:10→20:33)
[2022-11-13] MEDS: REMEDY ESSENTIAL ZINC PASTE 113 GM TP SCH (08:10)
[2022-11-13 20:00] VITALS: TEMP 97.8
[2022-11-13] MEDS: MULTIVIT, IRON, MIN NO. 8, FA TABLET GT SCH (20:34)
[2022-11-13] MEDS: MAGNESIUM OXIDE 400 MG TABLET GT SCH (20:34)
[2022-11-14] MEDS: OMEPRAZOLE 40 MG CAPSULE.DR GT SCH (04:47)
[2022-11-14] MEDS: POLYVINYL ALCOHOL OPHT DROPS 15 ML BOTTLE EACHEYE SCH ×2 (04:47→17:49)
[2022-11-14] MEDS: HYDROGEN PEROXIDE 3% 118 ML BOTTLE TP SCH ×2 (07:47→19:10)
[2022-11-14] MEDS: ASPIRIN 81 MG TAB.CHEW GT SCH (09:00)
[2022-11-14] MEDS: CHLORHEXIDINE GLUCONATE 15 ML MOUTHWASH MM SCH (09:00)
[2022-11-14] MEDS: DIAZEPAM 5 MG TABLET GT SCH ×2 (09:00→20:28)
[2022-11-14] MEDS: levETIRAcetam 500 MG/5 ML LIQUID UDC GT SCH ×2 (09:00→20:28)
[2022-11-14] MEDS: PHENOBARBITAL 64.8 MG TABLET GT SCH ×2 (09:00→20:28)
[2022-11-14] MEDS: AMIODARONE 100 MG GT SCH (09:00)
[2022-11-14] MEDS: REMEDY ESSENTIAL ZINC PASTE 113 GM TP SCH (09:00)
[2022-11-14] MEDS: METOPROLOL TARTRATE 25 MG TABLET GT SCH ×2 (09:00→20:28)
[2022-11-14] MEDS: DOCUSATE SODIUM 100 MG/10 ML LIQUID UDC GT SCH ×2 (09:00→20:28)
[2022-11-14 11:34] VITALS: TEMP 98.5
[2022-11-14] MEDS: VITAL 1.5 CAL LIQUID GT PRN (13:28)
[2022-11-14 20:00] VITALS: TEMP 98
[2022-11-14] MEDS: MULTIVIT, IRON, MIN NO. 8, FA TABLET GT SCH (20:28)
[2022-11-14] MEDS: MAGNESIUM OXIDE 400 MG TABLET GT SCH (20:28)
[2022-11-15] MEDS: OMEPRAZOLE 40 MG CAPSULE.DR GT SCH (05:16)
[2022-11-15] MEDS: POLYVINYL ALCOHOL OPHT DROPS 15 ML BOTTLE EACHEYE SCH ×2 (05:16→17:05)
[2022-11-15] MEDS: HYDROGEN PEROXIDE 3% 118 ML BOTTLE TP SCH ×2 (08:04→21:22)
[2022-11-15] MEDS: DOCUSATE SODIUM 100 MG/10 ML LIQUID UDC GT SCH ×2 (08:12→21:44)
[2022-11-15] MEDS: ASPIRIN 81 MG TAB.CHEW GT SCH (08:12)
[2022-11-15] MEDS: levETIRAcetam 500 MG/5 ML LIQUID UDC GT SCH ×2 (08:16→21:44)
[2022-11-15] MEDS: METOPROLOL TARTRATE 25 MG TABLET GT SCH ×2 (08:23→21:44)
[2022-11-15] MEDS: REMEDY ESSENTIAL ZINC PASTE 113 GM TP SCH (08:29)
[2022-11-15] MEDS: AMIODARONE 100 MG GT SCH (08:29)
[2022-11-15] MEDS: CHLORHEXIDINE GLUCONATE 15 ML MOUTHWASH MM SCH (08:31)
[2022-11-15] MEDS: PHENOBARBITAL 64.8 MG TABLET GT SCH ×2 (08:34→21:44)
[2022-11-15] MEDS: DIAZEPAM 5 MG TABLET GT SCH ×2 (08:34→21:44)
[2022-11-15 08:39] VITALS: TEMP 97.6
[2022-11-15] MEDS: VITAL 1.5 CAL LIQUID GT PRN (18:52)
[2022-11-15 20:00] VITALS: TEMP 98.8
[2022-11-15] MEDS: MULTIVIT, IRON, MIN NO. 8, FA TABLET GT SCH (21:44)
[2022-11-15] MEDS: MAGNESIUM OXIDE 400 MG TABLET GT SCH (21:44)
[2022-11-16] MEDS: OMEPRAZOLE 40 MG CAPSULE.DR GT SCH (05:31)
[2022-11-16] MEDS: POLYVINYL ALCOHOL OPHT DROPS 15 ML BOTTLE EACHEYE SCH ×2 (05:31→17:03)
[2022-11-16 07:30] VITALS: TEMP 97.7
[2022-11-16] MEDS: HYDROGEN PEROXIDE 3% 118 ML BOTTLE TP SCH ×2 (08:26→18:07)
[2022-11-16] MEDS: ASPIRIN 81 MG TAB.CHEW GT SCH (09:21)
[2022-11-16] MEDS: DOCUSATE SODIUM 100 MG/10 ML LIQUID UDC GT SCH ×2 (09:21→20:45)
[2022-11-16] MEDS: levETIRAcetam 500 MG/5 ML LIQUID UDC GT SCH ×2 (09:21→20:45)
[2022-11-16] MEDS: AMIODARONE 100 MG GT SCH (09:22)
[2022-11-16] MEDS: CHLORHEXIDINE GLUCONATE 15 ML MOUTHWASH MM SCH (09:22)
[2022-11-16] MEDS: METOPROLOL TARTRATE 25 MG TABLET GT SCH ×2 (09:22→20:45)
[2022-11-16] MEDS: PHENOBARBITAL 64.8 MG TABLET GT SCH ×2 (09:22→20:46)
[2022-11-16] MEDS: REMEDY ESSENTIAL ZINC PASTE 113 GM TP SCH (09:22)
[2022-11-16] MEDS: DIAZEPAM 5 MG TABLET GT SCH ×2 (09:22→20:46)
[2022-11-16 20:00] VITALS: TEMP 98.1
[2022-11-16] MEDS: MULTIVIT, IRON, MIN NO. 8, FA TABLET GT SCH (20:46)
[2022-11-16] MEDS: MAGNESIUM OXIDE 400 MG TABLET GT SCH (20:46)
[2022-11-17] MEDS: VITAL 1.5 CAL LIQUID GT PRN (01:37)
[2022-11-17] MEDS: OMEPRAZOLE 40 MG CAPSULE.DR GT SCH (05:03)
[2022-11-17] MEDS: POLYVINYL ALCOHOL OPHT DROPS 15 ML BOTTLE EACHEYE SCH ×2 (05:03→17:30)
[2022-11-17 08:00] VITALS: TEMP 97.2
[2022-11-17] MEDS: DOCUSATE SODIUM 100 MG/10 ML LIQUID UDC GT SCH ×2 (08:44→21:00)
[2022-11-17] MEDS: ASPIRIN 81 MG TAB.CHEW GT SCH (08:44)
[2022-11-17] MEDS: PHENOBARBITAL 64.8 MG TABLET GT SCH ×2 (08:45→21:00)
[2022-11-17] MEDS: METOPROLOL TARTRATE 25 MG TABLET GT SCH ×2 (08:45→21:00)
[2022-11-17] MEDS: levETIRAcetam 500 MG/5 ML LIQUID UDC GT SCH ×2 (08:45→21:00)
[2022-11-17] MEDS: DIAZEPAM 5 MG TABLET GT SCH ×2 (08:45→21:00)
[2022-11-17] MEDS: AMIODARONE 100 MG GT SCH (08:45)
[2022-11-17] MEDS: REMEDY ESSENTIAL ZINC PASTE 113 GM TP SCH (08:46)
[2022-11-17] MEDS: CHLORHEXIDINE GLUCONATE 15 ML MOUTHWASH MM SCH (08:46)
[2022-11-17] MEDS: HYDROGEN PEROXIDE 3% 118 ML BOTTLE TP SCH ×2 (09:00→21:28)
[2022-11-17 20:00] VITALS: TEMP 98.1
[2022-11-17] MEDS: MULTIVIT, IRON, MIN NO. 8, FA TABLET GT SCH (21:00)
[2022-11-17] MEDS: MAGNESIUM OXIDE 400 MG TABLET GT SCH (21:00)
[2022-11-18] MEDS: OMEPRAZOLE 40 MG CAPSULE.DR GT SCH (05:53)
[2022-11-18] MEDS: POLYVINYL ALCOHOL OPHT DROPS 15 ML BOTTLE EACHEYE SCH ×2 (05:53→18:00)
[2022-11-18] MEDS: VITAL 1.5 CAL LIQUID GT PRN (07:13)
[2022-11-18] MEDS: HYDROGEN PEROXIDE 3% 118 ML BOTTLE TP SCH ×2 (07:44→20:57)
[2022-11-18 08:00] VITALS: TEMP 97.6
[2022-11-18] MEDS: ASPIRIN 81 MG TAB.CHEW GT SCH (08:52)
[2022-11-18] MEDS: DOCUSATE SODIUM 100 MG/10 ML LIQUID UDC GT SCH ×2 (08:52→21:31)
[2022-11-18] MEDS: METOPROLOL TARTRATE 25 MG TABLET GT SCH ×2 (08:53→21:32)
[2022-11-18] MEDS: PHENOBARBITAL 64.8 MG TABLET GT SCH ×2 (08:53→21:32)
[2022-11-18] MEDS: DIAZEPAM 5 MG TABLET GT SCH ×2 (08:53→21:32)
[2022-11-18] MEDS: AMIODARONE 100 MG GT SCH (08:53)
[2022-11-18] MEDS: REMEDY ESSENTIAL ZINC PASTE 113 GM TP SCH (08:53)
[2022-11-18] MEDS: CHLORHEXIDINE GLUCONATE 15 ML MOUTHWASH MM SCH (08:53)
[2022-11-18] MEDS: levETIRAcetam 500 MG/5 ML LIQUID UDC GT SCH ×2 (08:53→21:31)
[2022-11-18 20:40] VITALS: TEMP 98.5
[2022-11-18] MEDS: MAGNESIUM OXIDE 400 MG TABLET GT SCH (21:32)
[2022-11-18] MEDS: MULTIVIT, IRON, MIN NO. 8, FA TABLET GT SCH (21:32)
[2022-11-19] MEDS: POLYVINYL ALCOHOL OPHT DROPS 15 ML BOTTLE EACHEYE SCH ×2 (05:23→18:06)
[2022-11-19] MEDS: OMEPRAZOLE 40 MG CAPSULE.DR GT SCH (05:23)
[2022-11-19 06:43] LABS: BASOPHILS % (AUTO) 0.8 % (0.0-2.0); EOSINOPHILS # (AUTO) 0.1 K/uL (0.0-0.7); EOSINOPHILS % (AUTO) 3.5 % (0.0-7.0); HEMOGLOBIN 9.4 g/dL (10.9-14.3); LYMPHOCYTES # (AUTO) 0.9 K/uL (0.8-4.8); LYMPHOCYTES % (AUTO) 23.7 % (20.5-51.5); MEAN CORPUSCULAR HEMOGLOBIN 26.7 uug (24.7-32.8); MEAN CORPUSCULAR HGB CONC 34 g/dL (32.3-35.6); MEAN CORPUSCULAR VOLUME 79.1 fL (75.5-95.3); MONOCYTES # (AUTO) 0.3 K/uL (0.1-1.30); MONOCYTES % (AUTO) 8.9 % (0.0-11.0); NEUTROPHILS # (AUTO) 2.3 K/uL (1.8-8.9); NEUTROPHILS % (AUTO) 63.1 % (38.5-71.5); PLATELET COUNT (AUTO) 243 K/uL (179-408); RED BLOOD CELL COUNT(AUTO) 3.54 MIL/uL (3.63-4.92); WHITE BLOOD COUNT (AUTO) 3.7 K/uL (3.8-11.8)
[2022-11-19 06:55] LABS: DIFFERENTIAL COMMENT 1
[2022-11-19 07:40] LABS: ALBUMIN 2.9 g/dL (3.4-5.0); BILIRUBIN,TOTAL 0.1 mg/dL (0.2-1.0); CALCIUM 8.6 mg/dL (8.5-10.1); CREATININE 0.6 mg/dL (0.6-1.3); TOTAL PROTEIN, SERUM 7.6 g/dL (6.4-8.2)
[2022-11-19 07:42] LABS: PHENOBARBITAL 40.8 ug/mL (15.0-39.0)
[2022-11-19] MEDS: HYDROGEN PEROXIDE 3% 118 ML BOTTLE TP SCH ×2 (07:49→19:29)
[2022-11-19 08:00] VITALS: TEMP 97.7
[2022-11-19] MEDS: DOCUSATE SODIUM 100 MG/10 ML LIQUID UDC GT SCH ×2 (08:40→21:00)
[2022-11-19] MEDS: ASPIRIN 81 MG TAB.CHEW GT SCH (08:40)
[2022-11-19] MEDS: AMIODARONE 100 MG GT SCH (08:42)
[2022-11-19] MEDS: PHENOBARBITAL 64.8 MG TABLET GT SCH ×2 (08:42→21:00)
[2022-11-19] MEDS: METOPROLOL TARTRATE 25 MG TABLET GT SCH ×2 (08:42→21:00)
[2022-11-19] MEDS: levETIRAcetam 500 MG/5 ML LIQUID UDC GT SCH ×2 (08:42→21:00)
[2022-11-19] MEDS: CHLORHEXIDINE GLUCONATE 15 ML MOUTHWASH MM SCH (08:43)
[2022-11-19] MEDS: DIAZEPAM 5 MG TABLET GT SCH ×2 (08:43→21:00)
[2022-11-19] MEDS: REMEDY ESSENTIAL ZINC PASTE 113 GM TP SCH (08:43)
[2022-11-19] MEDS: VITAL 1.5 CAL LIQUID GT PRN (10:50)
[2022-11-19 20:00] VITALS: TEMP 98.1
[2022-11-19] MEDS: MULTIVIT, IRON, MIN NO. 8, FA TABLET GT SCH (21:00)
[2022-11-19] MEDS: MAGNESIUM OXIDE 400 MG TABLET GT SCH (21:00)
[2022-11-20] MEDS: POLYVINYL ALCOHOL OPHT DROPS 15 ML BOTTLE EACHEYE SCH ×2 (05:21→17:04)
[2022-11-20] MEDS: OMEPRAZOLE 40 MG CAPSULE.DR GT SCH (05:21)
[2022-11-20 08:00] VITALS: TEMP 98
[2022-11-20] MEDS: HYDROGEN PEROXIDE 3% 118 ML BOTTLE TP SCH ×2 (08:08→20:49)
[2022-11-20] MEDS: ASPIRIN 81 MG TAB.CHEW GT SCH (08:28)
[2022-11-20] MEDS: levETIRAcetam 500 MG/5 ML LIQUID UDC GT SCH ×2 (08:28→20:40)
[2022-11-20] MEDS: DOCUSATE SODIUM 100 MG/10 ML LIQUID UDC GT SCH ×2 (08:28→20:40)
[2022-11-20] MEDS: DIAZEPAM 5 MG TABLET GT SCH ×2 (08:29→20:39)
[2022-11-20] MEDS: METOPROLOL TARTRATE 25 MG TABLET GT SCH ×2 (08:29→20:39)
[2022-11-20] MEDS: REMEDY ESSENTIAL ZINC PASTE 113 GM TP SCH (08:29)
[2022-11-20] MEDS: AMIODARONE 100 MG GT SCH (08:29)
[2022-11-20] MEDS: PHENOBARBITAL 64.8 MG TABLET GT SCH ×2 (08:29→20:39)
[2022-11-20] MEDS: CHLORHEXIDINE GLUCONATE 15 ML MOUTHWASH MM SCH (08:37)
[2022-11-20 20:00] VITALS: TEMP 98.1
[2022-11-20] MEDS: MULTIVIT, IRON, MIN NO. 8, FA TABLET GT SCH (20:39)
[2022-11-20] MEDS: MAGNESIUM OXIDE 400 MG TABLET GT SCH (20:39)
[2022-11-21] MEDS: OMEPRAZOLE 40 MG CAPSULE.DR GT SCH (05:26)
[2022-11-21] MEDS: POLYVINYL ALCOHOL OPHT DROPS 15 ML BOTTLE EACHEYE SCH ×2 (05:26→18:47)
[2022-11-21] MEDS ORDERED: VITAL AF 1.5 1,000 ML LIQUID GT PRN (06:15)
[2022-11-21 08:00] VITALS: TEMP 97.5
[2022-11-21] MEDS: HYDROGEN PEROXIDE 3% 118 ML BOTTLE TP SCH ×2 (08:07→22:32)
[2022-11-21] MEDS: ASPIRIN 81 MG TAB.CHEW GT SCH (08:47)
[2022-11-21] MEDS: DOCUSATE SODIUM 100 MG/10 ML LIQUID UDC GT SCH ×2 (08:47→21:19)
[2022-11-21] MEDS: levETIRAcetam 500 MG/5 ML LIQUID UDC GT SCH ×2 (08:48→21:19)
[2022-11-21] MEDS: METOPROLOL TARTRATE 25 MG TABLET GT SCH ×2 (08:50→21:20)
[2022-11-21] MEDS: AMIODARONE 100 MG GT SCH (08:51)
[2022-11-21] MEDS: REMEDY ESSENTIAL ZINC PASTE 113 GM TP SCH (08:56)
[2022-11-21] MEDS: CHLORHEXIDINE GLUCONATE 15 ML MOUTHWASH MM SCH (08:56)
[2022-11-21] MEDS: DIAZEPAM 5 MG TABLET GT SCH ×2 (08:56→21:20)
[2022-11-21] MEDS: PHENOBARBITAL 64.8 MG TABLET GT SCH ×2 (08:56→21:20)
[2022-11-21 20:00] VITALS: TEMP 98
[2022-11-21] MEDS: MULTIVIT, IRON, MIN NO. 8, FA TABLET GT SCH (21:20)
[2022-11-21] MEDS: MAGNESIUM OXIDE 400 MG TABLET GT SCH (21:20)
[2022-11-22] MEDS: POLYVINYL ALCOHOL OPHT DROPS 15 ML BOTTLE EACHEYE SCH ×2 (05:11→17:16)
[2022-11-22] MEDS: OMEPRAZOLE 40 MG CAPSULE.DR GT SCH (05:11)
[2022-11-22 07:32] VITALS: TEMP 97.7
[2022-11-22] MEDS: METOPROLOL TARTRATE 25 MG TABLET GT SCH ×2 (08:49→21:00)
[2022-11-22] MEDS: HYDROGEN PEROXIDE 3% 118 ML BOTTLE TP SCH ×2 (09:00→19:17)
[2022-11-22] MEDS: AMIODARONE 100 MG GT SCH (09:24)
[2022-11-22] MEDS: levETIRAcetam 500 MG/5 ML LIQUID UDC GT SCH ×2 (09:24→21:00)
[2022-11-22] MEDS: ASPIRIN 81 MG TAB.CHEW GT SCH (09:24)
[2022-11-22] MEDS: DOCUSATE SODIUM 100 MG/10 ML LIQUID UDC GT SCH ×2 (09:24→21:00)
[2022-11-22] MEDS: CHLORHEXIDINE GLUCONATE 15 ML MOUTHWASH MM SCH (09:25)
[2022-11-22] MEDS: DIAZEPAM 5 MG TABLET GT SCH ×2 (09:25→21:00)
[2022-11-22] MEDS: REMEDY ESSENTIAL ZINC PASTE 113 GM TP SCH (09:25)
[2022-11-22] MEDS: PHENOBARBITAL 64.8 MG TABLET GT SCH ×2 (09:25→21:00)
[2022-11-22 20:00] VITALS: TEMP 98.6
[2022-11-22] MEDS: MAGNESIUM OXIDE 400 MG TABLET GT SCH (21:00)
[2022-11-22] MEDS: MULTIVIT, IRON, MIN NO. 8, FA TABLET GT SCH (21:00)
[2022-11-23] MEDS: POLYVINYL ALCOHOL OPHT DROPS 15 ML BOTTLE EACHEYE SCH ×2 (05:56→17:18)
[2022-11-23] MEDS: OMEPRAZOLE 40 MG CAPSULE.DR GT SCH (05:56)
[2022-11-23] MEDS: HYDROGEN PEROXIDE 3% 118 ML BOTTLE TP SCH ×2 (07:03→19:25)
[2022-11-23 07:48] VITALS: TEMP 98
[2022-11-23] MEDS: ASPIRIN 81 MG TAB.CHEW GT SCH (08:58)
[2022-11-23] MEDS: DOCUSATE SODIUM 100 MG/10 ML LIQUID UDC GT SCH ×2 (08:58→21:17)
[2022-11-23] MEDS: levETIRAcetam 500 MG/5 ML LIQUID UDC GT SCH ×2 (08:58→21:17)
[2022-11-23] MEDS: PHENOBARBITAL 64.8 MG TABLET GT SCH ×2 (09:00→21:18)
[2022-11-23] MEDS: CHLORHEXIDINE GLUCONATE 15 ML MOUTHWASH MM SCH (09:00)
[2022-11-23] MEDS: DIAZEPAM 5 MG TABLET GT SCH ×2 (09:00→21:18)
[2022-11-23] MEDS: METOPROLOL TARTRATE 25 MG TABLET GT SCH ×2 (09:00→21:18)
[2022-11-23] MEDS: AMIODARONE 100 MG GT SCH (09:00)
[2022-11-23] MEDS: REMEDY ESSENTIAL ZINC PASTE 113 GM TP SCH (09:00)
[2022-11-23] MEDS: VITAL AF 1.2 1,000 ML LIQUID GT PRN (12:47)
[2022-11-23 20:00] VITALS: TEMP 98.6
[2022-11-23] MEDS: MULTIVIT, IRON, MIN NO. 8, FA TABLET GT SCH (21:18)
[2022-11-23] MEDS: MAGNESIUM OXIDE 400 MG TABLET GT SCH (21:18)
[2022-11-24] MEDS: POLYVINYL ALCOHOL OPHT DROPS 15 ML BOTTLE EACHEYE SCH ×2 (05:31→17:29)
[2022-11-24] MEDS: OMEPRAZOLE 40 MG CAPSULE.DR GT SCH (05:31)
[2022-11-24 08:00] VITALS: TEMP 97.8
[2022-11-24] MEDS: ASPIRIN 81 MG TAB.CHEW GT SCH (08:12)
[2022-11-24] MEDS: levETIRAcetam 500 MG/5 ML LIQUID UDC GT SCH ×2 (08:12→21:00)
[2022-11-24] MEDS: DOCUSATE SODIUM 100 MG/10 ML LIQUID UDC GT SCH ×2 (08:12→21:00)
[2022-11-24] MEDS: METOPROLOL TARTRATE 25 MG TABLET GT SCH ×2 (08:12→21:00)
[2022-11-24] MEDS: CHLORHEXIDINE GLUCONATE 15 ML MOUTHWASH MM SCH (08:13)
[2022-11-24] MEDS: PHENOBARBITAL 64.8 MG TABLET GT SCH ×2 (08:13→21:00)
[2022-11-24] MEDS: REMEDY ESSENTIAL ZINC PASTE 113 GM TP SCH (08:13)
[2022-11-24] MEDS: DIAZEPAM 5 MG TABLET GT SCH ×2 (08:13→21:00)
[2022-11-24] MEDS: AMIODARONE 100 MG GT SCH (08:13)
[2022-11-24] MEDS: HYDROGEN PEROXIDE 3% 118 ML BOTTLE TP SCH ×2 (09:38→19:22)
[2022-11-24] MEDS: VITAL AF 1.2 1,000 ML LIQUID GT PRN (18:31)
[2022-11-24 20:00] VITALS: TEMP 98.6
[2022-11-24] MEDS: MAGNESIUM OXIDE 400 MG TABLET GT SCH (21:00)
[2022-11-24] MEDS: MULTIVIT, IRON, MIN NO. 8, FA TABLET GT SCH (21:00)
[2022-11-25] MEDS: POLYVINYL ALCOHOL OPHT DROPS 15 ML BOTTLE EACHEYE SCH ×2 (05:31→17:50)
[2022-11-25] MEDS: OMEPRAZOLE 40 MG CAPSULE.DR GT SCH (05:31)
[2022-11-25 07:58] VITALS: TEMP 97.8
[2022-11-25] MEDS: DOCUSATE SODIUM 100 MG/10 ML LIQUID UDC GT SCH ×2 (08:32→20:52)
[2022-11-25] MEDS: levETIRAcetam 500 MG/5 ML LIQUID UDC GT SCH ×2 (08:32→20:53)
[2022-11-25] MEDS: ASPIRIN 81 MG TAB.CHEW GT SCH (08:32)
[2022-11-25] MEDS: CHLORHEXIDINE GLUCONATE 15 ML MOUTHWASH MM SCH (08:33)
[2022-11-25] MEDS: METOPROLOL TARTRATE 25 MG TABLET GT SCH ×2 (08:33→20:54)
[2022-11-25] MEDS: REMEDY ESSENTIAL ZINC PASTE 113 GM TP SCH (08:33)
[2022-11-25] MEDS: PHENOBARBITAL 64.8 MG TABLET GT SCH ×2 (08:33→20:54)
[2022-11-25] MEDS: DIAZEPAM 5 MG TABLET GT SCH ×2 (08:33→20:54)
[2022-11-25] MEDS: AMIODARONE 100 MG GT SCH (08:33)
[2022-11-25] MEDS: HYDROGEN PEROXIDE 3% 118 ML BOTTLE TP SCH ×2 (09:28→19:27)
[2022-11-25 20:47] VITALS: TEMP 98
[2022-11-25] MEDS: MAGNESIUM OXIDE 400 MG TABLET GT SCH (20:54)
[2022-11-25] MEDS: MULTIVIT, IRON, MIN NO. 8, FA TABLET GT SCH (20:54)
[2022-11-26] MEDS: POLYVINYL ALCOHOL OPHT DROPS 15 ML BOTTLE EACHEYE SCH ×2 (05:16→17:20)
[2022-11-26] MEDS: OMEPRAZOLE 40 MG CAPSULE.DR GT SCH (05:16)
[2022-11-26 08:00] VITALS: TEMP 98.4
[2022-11-26] MEDS: DOCUSATE SODIUM 100 MG/10 ML LIQUID UDC GT SCH ×2 (08:29→21:00)
[2022-11-26] MEDS: levETIRAcetam 500 MG/5 ML LIQUID UDC GT SCH ×2 (08:29→21:00)
[2022-11-26] MEDS: ASPIRIN 81 MG TAB.CHEW GT SCH (08:29)
[2022-11-26] MEDS: PHENOBARBITAL 64.8 MG TABLET GT SCH ×2 (08:33→21:00)
[2022-11-26] MEDS: DIAZEPAM 5 MG TABLET GT SCH ×2 (08:33→21:00)
[2022-11-26] MEDS: AMIODARONE 100 MG GT SCH (08:33)
[2022-11-26] MEDS: METOPROLOL TARTRATE 25 MG TABLET GT SCH ×2 (08:33→21:00)
[2022-11-26] MEDS: REMEDY ESSENTIAL ZINC PASTE 113 GM TP SCH (08:34)
[2022-11-26] MEDS: CHLORHEXIDINE GLUCONATE 15 ML MOUTHWASH MM SCH (08:34)
[2022-11-26] MEDS: VITAL AF 1.2 1,000 ML LIQUID GT PRN (08:38)
[2022-11-26] MEDS: HYDROGEN PEROXIDE 3% 118 ML BOTTLE TP SCH ×2 (09:00→19:21)
[2022-11-26 20:32] VITALS: TEMP 98.6
[2022-11-26] MEDS: MULTIVIT, IRON, MIN NO. 8, FA TABLET GT SCH (21:00)
[2022-11-26] MEDS: MAGNESIUM OXIDE 400 MG TABLET GT SCH (21:00)
[2022-11-27] MEDS: OMEPRAZOLE 40 MG CAPSULE.DR GT SCH (06:51)
[2022-11-27] MEDS: POLYVINYL ALCOHOL OPHT DROPS 15 ML BOTTLE EACHEYE SCH ×2 (06:51→18:55)
[2022-11-27 08:00] VITALS: TEMP 97.8
[2022-11-27] MEDS: HYDROGEN PEROXIDE 3% 118 ML BOTTLE TP SCH ×2 (08:49→19:20)
[2022-11-27] MEDS: levETIRAcetam 500 MG/5 ML LIQUID UDC GT SCH ×2 (09:00→20:29)
[2022-11-27] MEDS: PHENOBARBITAL 64.8 MG TABLET GT SCH ×2 (09:00→20:30)
[2022-11-27] MEDS: CHLORHEXIDINE GLUCONATE 15 ML MOUTHWASH MM SCH (09:00)
[2022-11-27] MEDS: DIAZEPAM 5 MG TABLET GT SCH ×2 (09:00→20:30)
[2022-11-27] MEDS: REMEDY ESSENTIAL ZINC PASTE 113 GM TP SCH (09:00)
[2022-11-27] MEDS: AMIODARONE 100 MG GT SCH (09:00)
[2022-11-27] MEDS: ASPIRIN 81 MG TAB.CHEW GT SCH (09:00)
[2022-11-27] MEDS: DOCUSATE SODIUM 100 MG/10 ML LIQUID UDC GT SCH ×2 (09:00→20:28)
[2022-11-27] MEDS: METOPROLOL TARTRATE 25 MG TABLET GT SCH ×2 (09:00→20:30)
[2022-11-27 20:02] VITALS: TEMP 98.2
[2022-11-27] MEDS: MULTIVIT, IRON, MIN NO. 8, FA TABLET GT SCH (20:30)
[2022-11-27] MEDS: MAGNESIUM OXIDE 400 MG TABLET GT SCH (20:30)
[2022-11-28] MEDS: VITAL AF 1.2 1,000 ML LIQUID GT PRN (01:03)
[2022-11-28] MEDS: POLYVINYL ALCOHOL OPHT DROPS 15 ML BOTTLE EACHEYE SCH ×2 (05:17→17:41)
[2022-11-28] MEDS: OMEPRAZOLE 40 MG CAPSULE.DR GT SCH (05:17)
[2022-11-28 07:42] VITALS: TEMP 97.1
[2022-11-28] MEDS: HYDROGEN PEROXIDE 3% 118 ML BOTTLE TP SCH ×2 (09:00→19:17)
[2022-11-28] MEDS: levETIRAcetam 500 MG/5 ML LIQUID UDC GT SCH ×2 (09:57→20:14)
[2022-11-28] MEDS: DOCUSATE SODIUM 100 MG/10 ML LIQUID UDC GT SCH ×2 (09:57→20:14)
[2022-11-28] MEDS: ASPIRIN 81 MG TAB.CHEW GT SCH (09:57)
[2022-11-28] MEDS: METOPROLOL TARTRATE 25 MG TABLET GT SCH ×2 (09:58→21:23)
[2022-11-28] MEDS: DIAZEPAM 5 MG TABLET GT SCH ×2 (09:58→21:24)
[2022-11-28] MEDS: AMIODARONE 100 MG GT SCH (09:58)
[2022-11-28] MEDS: REMEDY ESSENTIAL ZINC PASTE 113 GM TP SCH (09:58)
[2022-11-28] MEDS: CHLORHEXIDINE GLUCONATE 15 ML MOUTHWASH MM SCH (09:58)
[2022-11-28] MEDS: PHENOBARBITAL 64.8 MG TABLET GT SCH ×2 (09:58→21:23)
[2022-11-28 20:00] VITALS: TEMP 97.6
[2022-11-28] MEDS: MULTIVIT, IRON, MIN NO. 8, FA TABLET GT SCH (20:14)
[2022-11-28] MEDS: MAGNESIUM OXIDE 400 MG TABLET GT SCH (20:14)
[2022-11-29] MEDS: OMEPRAZOLE 40 MG CAPSULE.DR GT SCH (05:44)
[2022-11-29] MEDS: POLYVINYL ALCOHOL OPHT DROPS 15 ML BOTTLE EACHEYE SCH ×2 (05:44→17:08)
[2022-11-29 07:45] VITALS: TEMP 98.2
[2022-11-29] MEDS: DOCUSATE SODIUM 100 MG/10 ML LIQUID UDC GT SCH ×2 (08:35→20:56)
[2022-11-29] MEDS: levETIRAcetam 500 MG/5 ML LIQUID UDC GT SCH ×2 (08:35→20:56)
[2022-11-29] MEDS: ASPIRIN 81 MG TAB.CHEW GT SCH (08:35)
[2022-11-29] MEDS: METOPROLOL TARTRATE 25 MG TABLET GT SCH ×2 (08:36→20:56)
[2022-11-29] MEDS: AMIODARONE 100 MG GT SCH (08:36)
[2022-11-29] MEDS: PHENOBARBITAL 64.8 MG TABLET GT SCH ×2 (08:36→21:00)
[2022-11-29] MEDS: REMEDY ESSENTIAL ZINC PASTE 113 GM TP SCH (08:36)
[2022-11-29] MEDS: CHLORHEXIDINE GLUCONATE 15 ML MOUTHWASH MM SCH (08:36)
[2022-11-29] MEDS: DIAZEPAM 5 MG TABLET GT SCH ×2 (08:36→21:00)
[2022-11-29] MEDS: HYDROGEN PEROXIDE 3% 118 ML BOTTLE TP SCH ×2 (09:00→19:22)
[2022-11-29 20:00] VITALS: TEMP 97.8
[2022-11-29] MEDS: MAGNESIUM OXIDE 400 MG TABLET GT SCH (20:56)
[2022-11-29] MEDS: MULTIVIT, IRON, MIN NO. 8, FA TABLET GT SCH (20:56)
[2022-11-30] MEDS: POLYVINYL ALCOHOL OPHT DROPS 15 ML BOTTLE EACHEYE SCH ×2 (06:08→17:08)
[2022-11-30] MEDS: OMEPRAZOLE 40 MG CAPSULE.DR GT SCH (06:08)
[2022-11-30 07:42] VITALS: TEMP 98.4
[2022-11-30] MEDS: ASPIRIN 81 MG TAB.CHEW GT SCH (08:37)
[2022-11-30] MEDS: DOCUSATE SODIUM 100 MG/10 ML LIQUID UDC GT SCH ×2 (08:37→20:09)
[2022-11-30] MEDS: levETIRAcetam 500 MG/5 ML LIQUID UDC GT SCH ×2 (08:37→20:09)
[2022-11-30] MEDS: REMEDY ESSENTIAL ZINC PASTE 113 GM TP SCH (08:38)
[2022-11-30] MEDS: METOPROLOL TARTRATE 25 MG TABLET GT SCH ×2 (08:38→20:09)
[2022-11-30] MEDS: AMIODARONE 100 MG GT SCH (08:38)
[2022-11-30] MEDS: CHLORHEXIDINE GLUCONATE 15 ML MOUTHWASH MM SCH (08:38)
[2022-11-30] MEDS: PHENOBARBITAL 64.8 MG TABLET GT SCH ×2 (08:38→20:10)
[2022-11-30] MEDS: DIAZEPAM 5 MG TABLET GT SCH ×2 (08:38→20:12)
[2022-11-30] MEDS: HYDROGEN PEROXIDE 3% 118 ML BOTTLE TP SCH ×2 (09:26→20:02)
[2022-11-30 11:30] VITALS: O2SAT 99
[2022-11-30] MEDS: VITAL AF 1.2 1,000 ML LIQUID GT PRN (17:08)
[2022-11-30] MEDS: MAGNESIUM OXIDE 400 MG TABLET GT SCH (20:11)
[2022-11-30] MEDS: MULTIVIT, IRON, MIN NO. 8, FA TABLET GT SCH (20:11)
[2022-11-30 22:31] VITALS: TEMP 97.5
[2022-12-01] MEDS: POLYVINYL ALCOHOL OPHT DROPS 15 ML BOTTLE EACHEYE SCH ×2 (05:50→17:37)
[2022-12-01] MEDS: OMEPRAZOLE 40 MG CAPSULE.DR GT SCH (05:50)
[2022-12-01 08:01] VITALS: TEMP 97.8
[2022-12-01] MEDS: HYDROGEN PEROXIDE 3% 118 ML BOTTLE TP SCH ×2 (09:00→21:01)
[2022-12-01] MEDS: ASPIRIN 81 MG TAB.CHEW GT SCH (09:21)
[2022-12-01] MEDS: DOCUSATE SODIUM 100 MG/10 ML LIQUID UDC GT SCH ×2 (09:21→21:11)
[2022-12-01] MEDS: levETIRAcetam 500 MG/5 ML LIQUID UDC GT SCH ×2 (09:21→21:11)
[2022-12-01] MEDS: REMEDY ESSENTIAL ZINC PASTE 113 GM TP SCH (09:29)
[2022-12-01] MEDS: DIAZEPAM 5 MG TABLET GT SCH ×2 (09:29→21:14)
[2022-12-01] MEDS: AMIODARONE 100 MG GT SCH (09:29)
[2022-12-01] MEDS: METOPROLOL TARTRATE 25 MG TABLET GT SCH ×2 (09:29→21:00)
[2022-12-01] MEDS: PHENOBARBITAL 64.8 MG TABLET GT SCH ×2 (09:29→21:11)
[2022-12-01] MEDS: CHLORHEXIDINE GLUCONATE 15 ML MOUTHWASH MM SCH (09:29)
[2022-12-01] MEDS: ACETAMINOPHEN 650 MG/20 ML UDC- SA PATIENTS-FEVER ONLY GT PRN (18:50)
[2022-12-01 18:57] LABS: BASOPHILS % (AUTO) 0.3 % (0.0-2.0); EOSINOPHILS # (AUTO) 0.1 K/uL (0.0-0.7); EOSINOPHILS % (AUTO) 1.1 % (0.0-7.0); HEMATOCRIT 30.4 % (31.2-41.9); LYMPHOCYTES # (AUTO) 0.4 K/uL (0.8-4.8); LYMPHOCYTES % (AUTO) 7.7 % (20.5-51.5); MEAN CORPUSCULAR HEMOGLOBIN 26.3 uug (24.7-32.8); MEAN CORPUSCULAR HGB CONC 33 g/dL (32.3-35.6); MEAN CORPUSCULAR VOLUME 79.8 fL (75.5-95.3); MONOCYTES # (AUTO) 0.4 K/uL (0.1-1.30); MONOCYTES % (AUTO) 7.5 % (0.0-11.0); NEUTROPHILS # (AUTO) 4.5 K/uL (1.8-8.9); NEUTROPHILS % (AUTO) 83.4 % (38.5-71.5); PLATELET COUNT (AUTO) 198 K/uL (179-408); RED CELL DISTRIBUTION WIDTH 17.1 % (12.3-17.7); WHITE BLOOD COUNT (AUTO) 5.4 K/uL (3.8-11.8)
[2022-12-01 19:08] LABS: DIFFERENTIAL COMMENT 1
[2022-12-01 19:11] LABS: BILIRUBIN,TOTAL 0.4 mg/dL (0.2-1.0); CALCIUM 8.7 mg/dL (8.5-10.1); CREATININE 0.7 mg/dL (0.6-1.3); MAGNESIUM 1.9 mg/dL (1.8-2.4); PHOSPHOROUS 3.4 mg/dL (2.5-4.9); POTASSIUM 3.6 mmol/L (3.5-5.1); TOTAL PROTEIN, SERUM 8.3 g/dL (6.4-8.2)
[2022-12-01 19:18] LABS: *BILIRUBIN,URIN NEGATIVE (NEGATIVE); *BLOOD, URINE 3+ (NEGATIVE); *CLARITY,URINE CLOUDY (CLEAR); *COLOR,URINE YELLOW (YELLOW); *KETONES,URINE NEGATIVE (NEGATIVE); *PROTEIN,URINE 3+ (NEGATIVE); *UROBILINOGEN,URINE 0.2 E.U./dl (NORMAL); LEUKOCYTE ESTERASE ,URINE 3+ (NEGATIVE); NITRITE, URINE POSITIVE (NEGATIVE); PH,URINE 7.5 (5.0-8.0); UGLUCOSE NEGATIVE (NEGATIVE)
[2022-12-01 20:00] VITALS: TEMP 99.8
[2022-12-01] MEDS: MULTIVIT, IRON, MIN NO. 8, FA TABLET GT SCH (21:11)
[2022-12-01] MEDS: MAGNESIUM OXIDE 400 MG TABLET GT SCH (21:11)
[2022-12-01] MEDS ORDERED: levoFLOXacin 500 MG TABLET PO SCH (21:30)
[2022-12-02 02:14] VITALS: TEMP 99.2
[2022-12-02 03:48] VITALS: TEMP 97.7
[2022-12-02 04:29] LABS: BACTERIA,URINE MODERATE /HPF (NONE SEEN); SQUAMOUS EPITHELIAL CELL,UR FEW /HPF (NONE SEEN); WBC,URINE 20-50 /HPF (0-3)
[2022-12-02] MEDS: POLYVINYL ALCOHOL OPHT DROPS 15 ML BOTTLE EACHEYE SCH ×2 (05:04→18:12)
[2022-12-02] MEDS: VITAL AF 1.2 1,000 ML LIQUID GT PRN (05:04)
[2022-12-02] MEDS: OMEPRAZOLE 40 MG CAPSULE.DR GT SCH (05:04)
[2022-12-02 07:31] VITALS: TEMP 99
[2022-12-02] MEDS ORDERED: levoFLOXacin 500 MG TABLET GT SCH (07:41)
[2022-12-02] MEDS: HYDROGEN PEROXIDE 3% 118 ML BOTTLE TP SCH ×2 (07:42→21:55)
[2022-12-02] MEDS: ASPIRIN 81 MG TAB.CHEW GT SCH (08:46)
[2022-12-02] MEDS: DOCUSATE SODIUM 100 MG/10 ML LIQUID UDC GT SCH ×2 (08:46→21:27)
[2022-12-02] MEDS: REMEDY ESSENTIAL ZINC PASTE 113 GM TP SCH (08:47)
[2022-12-02] MEDS: CHLORHEXIDINE GLUCONATE 15 ML MOUTHWASH MM SCH (08:47)
[2022-12-02] MEDS: METOPROLOL TARTRATE 25 MG TABLET GT SCH ×2 (08:51→21:00)
[2022-12-02] MEDS: PHENOBARBITAL 64.8 MG TABLET GT SCH ×2 (08:59→21:29)
[2022-12-02] MEDS: DIAZEPAM 5 MG TABLET GT SCH ×2 (09:00→21:30)
[2022-12-02] MEDS: levETIRAcetam 500 MG/5 ML LIQUID UDC GT SCH ×2 (09:01→21:27)
[2022-12-02] MEDS: AMIODARONE 100 MG GT SCH (09:08)
[2022-12-02] MEDS: MAGNESIUM OXIDE 400 MG TABLET GT SCH (21:29)
[2022-12-02] MEDS: MULTIVIT, IRON, MIN NO. 8, FA TABLET GT SCH (21:29)
[2022-12-02] MEDS: levoFLOXacin 500 MG TABLET GT SCH (21:30)
[2022-12-02 22:47] VITALS: TEMP 100.3
[2022-12-03] MEDS: OMEPRAZOLE 40 MG CAPSULE.DR GT SCH (05:17)
[2022-12-03] MEDS: POLYVINYL ALCOHOL OPHT DROPS 15 ML BOTTLE EACHEYE SCH ×2 (05:17→17:49)
[2022-12-03 07:26] VITALS: TEMP 97.9
[2022-12-03] MEDS: HYDROGEN PEROXIDE 3% 118 ML BOTTLE TP SCH ×2 (08:03→21:10)
[2022-12-03] MEDS: levETIRAcetam 500 MG/5 ML LIQUID UDC GT SCH ×2 (08:21→20:20)
[2022-12-03] MEDS: DOCUSATE SODIUM 100 MG/10 ML LIQUID UDC GT SCH ×2 (08:21→20:19)
[2022-12-03] MEDS: METOPROLOL TARTRATE 25 MG TABLET GT SCH ×2 (08:21→20:21)
[2022-12-03] MEDS: ASPIRIN 81 MG TAB.CHEW GT SCH (08:21)
[2022-12-03] MEDS: AMIODARONE 100 MG GT SCH (08:24)
[2022-12-03] MEDS: REMEDY ESSENTIAL ZINC PASTE 113 GM TP SCH (08:25)
[2022-12-03] MEDS: CHLORHEXIDINE GLUCONATE 15 ML MOUTHWASH MM SCH (08:25)
[2022-12-03] MEDS: DIAZEPAM 5 MG TABLET GT SCH ×2 (08:29→20:22)
[2022-12-03] MEDS: PHENOBARBITAL 64.8 MG TABLET GT SCH ×2 (08:30→20:21)
[2022-12-03] MEDS: MAGNESIUM OXIDE 400 MG TABLET GT SCH (20:21)
[2022-12-03] MEDS: MULTIVIT, IRON, MIN NO. 8, FA TABLET GT SCH (20:22)
[2022-12-03 20:23] VITALS: TEMP 98.8
[2022-12-03] MEDS: levoFLOXacin 500 MG TABLET GT SCH (21:47)
[2022-12-04] MEDS: OMEPRAZOLE 40 MG CAPSULE.DR GT SCH (05:24)
[2022-12-04] MEDS: POLYVINYL ALCOHOL OPHT DROPS 15 ML BOTTLE EACHEYE SCH ×2 (05:24→17:20)
[2022-12-04 07:19] VITALS: TEMP 97.8
[2022-12-04] MEDS: DOCUSATE SODIUM 100 MG/10 ML LIQUID UDC GT SCH ×2 (09:01→20:19)
[2022-12-04] MEDS: ASPIRIN 81 MG TAB.CHEW GT SCH (09:01)
[2022-12-04] MEDS: levETIRAcetam 500 MG/5 ML LIQUID UDC GT SCH ×2 (09:02→20:20)
[2022-12-04] MEDS: DIAZEPAM 5 MG TABLET GT SCH ×2 (09:04→20:25)
[2022-12-04] MEDS: PHENOBARBITAL 64.8 MG TABLET GT SCH ×2 (09:04→20:21)
[2022-12-04] MEDS: AMIODARONE 100 MG GT SCH (09:04)
[2022-12-04] MEDS: METOPROLOL TARTRATE 25 MG TABLET GT SCH ×2 (09:04→20:21)
[2022-12-04] MEDS: CHLORHEXIDINE GLUCONATE 15 ML MOUTHWASH MM SCH (09:05)
[2022-12-04] MEDS: REMEDY ESSENTIAL ZINC PASTE 113 GM TP SCH (09:05)
[2022-12-04] MEDS: HYDROGEN PEROXIDE 3% 118 ML BOTTLE TP SCH ×2 (09:17→19:19)
[2022-12-04 20:00] VITALS: TEMP 98.2
[2022-12-04] MEDS: MAGNESIUM OXIDE 400 MG TABLET GT SCH (20:24)
[2022-12-04] MEDS: MULTIVIT, IRON, MIN NO. 8, FA TABLET GT SCH (20:25)
[2022-12-04] MEDS: levoFLOXacin 500 MG TABLET GT SCH (20:34)
[2022-12-05] MEDS: POLYVINYL ALCOHOL OPHT DROPS 15 ML BOTTLE EACHEYE SCH ×2 (05:17→17:17)
[2022-12-05] MEDS: OMEPRAZOLE 40 MG CAPSULE.DR GT SCH (05:17)
[2022-12-05] MEDS: VITAL AF 1.2 1,000 ML LIQUID GT PRN (05:18)
[2022-12-05 07:21] VITALS: TEMP 98.8
[2022-12-05] MEDS: HYDROGEN PEROXIDE 3% 118 ML BOTTLE TP SCH ×2 (08:07→21:25)
[2022-12-05] MEDS: ASPIRIN 81 MG TAB.CHEW GT SCH (08:30)
[2022-12-05] MEDS: METOPROLOL TARTRATE 25 MG TABLET GT SCH ×2 (08:31→20:53)
[2022-12-05] MEDS: DOCUSATE SODIUM 100 MG/10 ML LIQUID UDC GT SCH ×2 (08:31→20:39)
[2022-12-05] MEDS: levETIRAcetam 500 MG/5 ML LIQUID UDC GT SCH ×2 (08:31→20:39)
[2022-12-05] MEDS: DIAZEPAM 5 MG TABLET GT SCH ×2 (08:32→20:42)
[2022-12-05] MEDS: AMIODARONE 100 MG GT SCH (08:32)
[2022-12-05] MEDS: REMEDY ESSENTIAL ZINC PASTE 113 GM TP SCH (08:32)
[2022-12-05] MEDS: PHENOBARBITAL 64.8 MG TABLET GT SCH ×2 (08:32→20:41)
[2022-12-05] MEDS: CHLORHEXIDINE GLUCONATE 15 ML MOUTHWASH MM SCH (08:32)
[2022-12-05 20:00] VITALS: TEMP 98
[2022-12-05] MEDS: MULTIVIT, IRON, MIN NO. 8, FA TABLET GT SCH (20:41)
[2022-12-05] MEDS: MAGNESIUM OXIDE 400 MG TABLET GT SCH (20:41)
[2022-12-06] MEDS: SULFAMETH/TRIMETH 800/160 MG TABLET GT SCH ×3 (00:35→20:23)
[2022-12-06] MEDS: POLYVINYL ALCOHOL OPHT DROPS 15 ML BOTTLE EACHEYE SCH ×2 (05:57→17:08)
[2022-12-06] MEDS: OMEPRAZOLE 40 MG CAPSULE.DR GT SCH (05:58)
[2022-12-06 07:54] VITALS: BP_SYST 102; BP_SYST 73; BP_DIAS 33; BP_DIAS 65; TEMP 98.8; O2SAT 100
[2022-12-06] MEDS: ASPIRIN 81 MG TAB.CHEW GT SCH (08:42)
[2022-12-06] MEDS: PHENOBARBITAL 64.8 MG TABLET GT SCH ×2 (08:42→20:26)
[2022-12-06] MEDS: DIAZEPAM 5 MG TABLET GT SCH ×2 (08:42→20:27)
[2022-12-06] MEDS: DOCUSATE SODIUM 100 MG/10 ML LIQUID UDC GT SCH ×2 (08:48→20:23)
[2022-12-06] MEDS: levETIRAcetam 500 MG/5 ML LIQUID UDC GT SCH ×2 (08:49→20:23)
[2022-12-06] MEDS: METOPROLOL TARTRATE 25 MG TABLET GT SCH ×2 (08:52→20:26)
[2022-12-06] MEDS: AMIODARONE 100 MG GT SCH (08:53)
[2022-12-06] MEDS: HYDROGEN PEROXIDE 3% 118 ML BOTTLE TP SCH ×2 (08:54→19:16)
[2022-12-06] MEDS: REMEDY ESSENTIAL ZINC PASTE 113 GM TP SCH (08:54)
[2022-12-06] MEDS: CHLORHEXIDINE GLUCONATE 15 ML MOUTHWASH MM SCH (09:00)
[2022-12-06] MEDS: VITAL AF 1.2 1,000 ML LIQUID GT PRN (15:00)
[2022-12-06 20:00] VITALS: TEMP 97.6
[2022-12-06] MEDS: MAGNESIUM OXIDE 400 MG TABLET GT SCH (20:26)
[2022-12-06] MEDS: MULTIVIT, IRON, MIN NO. 8, FA TABLET GT SCH (20:27)
[2022-12-07] MEDS: POLYVINYL ALCOHOL OPHT DROPS 15 ML BOTTLE EACHEYE SCH ×2 (05:25→17:54)
[2022-12-07] MEDS: OMEPRAZOLE 40 MG CAPSULE.DR GT SCH (05:25)
[2022-12-07] MEDS: HYDROGEN PEROXIDE 3% 118 ML BOTTLE TP SCH ×2 (07:15→19:32)
[2022-12-07 08:05] VITALS: TEMP 98.7
[2022-12-07] MEDS: DIAZEPAM 5 MG TABLET GT SCH ×2 (09:00→20:26)
[2022-12-07] MEDS: DOCUSATE SODIUM 100 MG/10 ML LIQUID UDC GT SCH ×2 (09:00→20:24)
[2022-12-07] MEDS: REMEDY ESSENTIAL ZINC PASTE 113 GM TP SCH (09:00)
[2022-12-07] MEDS: SULFAMETH/TRIMETH 800/160 MG TABLET GT SCH ×2 (09:00→20:24)
[2022-12-07] MEDS: METOPROLOL TARTRATE 25 MG TABLET GT SCH ×2 (09:00→21:00)
[2022-12-07] MEDS: CHLORHEXIDINE GLUCONATE 15 ML MOUTHWASH MM SCH (09:00)
[2022-12-07] MEDS: ASPIRIN 81 MG TAB.CHEW GT SCH (09:00)
[2022-12-07] MEDS: PHENOBARBITAL 64.8 MG TABLET GT SCH ×2 (09:00→20:26)
[2022-12-07] MEDS: levETIRAcetam 500 MG/5 ML LIQUID UDC GT SCH ×2 (09:00→20:24)
[2022-12-07] MEDS: AMIODARONE 100 MG GT SCH (09:00)
[2022-12-07 20:00] VITALS: TEMP 97.1
[2022-12-07] MEDS: MAGNESIUM OXIDE 400 MG TABLET GT SCH (20:26)
[2022-12-07] MEDS: MULTIVIT, IRON, MIN NO. 8, FA TABLET GT SCH (20:26)
[2022-12-08] MEDS: VITAL AF 1.2 1,000 ML LIQUID GT PRN (01:00)
[2022-12-08] MEDS: POLYVINYL ALCOHOL OPHT DROPS 15 ML BOTTLE EACHEYE SCH ×2 (05:40→17:23)
[2022-12-08] MEDS: OMEPRAZOLE 40 MG CAPSULE.DR GT SCH (05:40)
[2022-12-08 07:53] VITALS: TEMP 97.5
[2022-12-08] MEDS: HYDROGEN PEROXIDE 3% 118 ML BOTTLE TP SCH ×2 (08:12→21:09)
[2022-12-08] MEDS: DOCUSATE SODIUM 100 MG/10 ML LIQUID UDC GT SCH ×2 (09:25→20:57)
[2022-12-08] MEDS: ASPIRIN 81 MG TAB.CHEW GT SCH (09:25)
[2022-12-08] MEDS: SULFAMETH/TRIMETH 800/160 MG TABLET GT SCH ×2 (09:25→20:57)
[2022-12-08] MEDS: levETIRAcetam 500 MG/5 ML LIQUID UDC GT SCH ×2 (09:27→20:57)
[2022-12-08] MEDS: AMIODARONE 100 MG GT SCH (09:28)
[2022-12-08] MEDS: METOPROLOL TARTRATE 25 MG TABLET GT SCH ×2 (09:28→21:00)
[2022-12-08] MEDS: PHENOBARBITAL 64.8 MG TABLET GT SCH ×2 (09:28→20:58)
[2022-12-08] MEDS: DIAZEPAM 5 MG TABLET GT SCH ×2 (09:29→20:58)
[2022-12-08] MEDS: CHLORHEXIDINE GLUCONATE 15 ML MOUTHWASH MM SCH (09:29)
[2022-12-08] MEDS: REMEDY ESSENTIAL ZINC PASTE 113 GM TP SCH (09:29)
[2022-12-08 20:00] VITALS: TEMP 97.8
[2022-12-08] MEDS: MULTIVIT, IRON, MIN NO. 8, FA TABLET GT SCH (20:58)
[2022-12-08] MEDS: MAGNESIUM OXIDE 400 MG TABLET GT SCH (20:58)
[2022-12-09] MEDS: POLYVINYL ALCOHOL OPHT DROPS 15 ML BOTTLE EACHEYE SCH ×2 (06:22→17:35)
[2022-12-09] MEDS: OMEPRAZOLE 40 MG CAPSULE.DR GT SCH (06:22)
[2022-12-09 07:36] VITALS: TEMP 97.5
[2022-12-09] MEDS: HYDROGEN PEROXIDE 3% 118 ML BOTTLE TP SCH ×2 (08:19→19:24)
[2022-12-09] MEDS: METOPROLOL TARTRATE 25 MG TABLET GT SCH ×2 (09:38→21:50)
[2022-12-09] MEDS: levETIRAcetam 500 MG/5 ML LIQUID UDC GT SCH ×2 (09:38→21:50)
[2022-12-09] MEDS: DOCUSATE SODIUM 100 MG/10 ML LIQUID UDC GT SCH ×2 (09:38→21:50)
[2022-12-09] MEDS: SULFAMETH/TRIMETH 800/160 MG TABLET GT SCH ×2 (09:38→21:50)
[2022-12-09] MEDS: PHENOBARBITAL 64.8 MG TABLET GT SCH ×2 (09:38→21:50)
[2022-12-09] MEDS: AMIODARONE 100 MG GT SCH (09:38)
[2022-12-09] MEDS: CHLORHEXIDINE GLUCONATE 15 ML MOUTHWASH MM SCH (09:38)
[2022-12-09] MEDS: DIAZEPAM 5 MG TABLET GT SCH ×2 (09:38→21:50)
[2022-12-09] MEDS: ASPIRIN 81 MG TAB.CHEW GT SCH (09:38)
[2022-12-09] MEDS: REMEDY ESSENTIAL ZINC PASTE 113 GM TP SCH (09:39)
[2022-12-09 20:00] VITALS: BP 120/84; TEMP 97; O2SAT 100
[2022-12-09] MEDS: MULTIVIT, IRON, MIN NO. 8, FA TABLET GT SCH (21:50)
[2022-12-09] MEDS: MAGNESIUM OXIDE 400 MG TABLET GT SCH (21:55)
[2022-12-10] MEDS: POLYVINYL ALCOHOL OPHT DROPS 15 ML BOTTLE EACHEYE SCH ×2 (05:12→17:38)
[2022-12-10] MEDS: OMEPRAZOLE 40 MG CAPSULE.DR GT SCH (05:12)
[2022-12-10 08:00] VITALS: TEMP 98.2
[2022-12-10] MEDS: HYDROGEN PEROXIDE 3% 118 ML BOTTLE TP SCH ×2 (08:48→19:10)
[2022-12-10] MEDS: ASPIRIN 81 MG TAB.CHEW GT SCH (09:33)
[2022-12-10] MEDS: SULFAMETH/TRIMETH 800/160 MG TABLET GT SCH (09:33)
[2022-12-10] MEDS: levETIRAcetam 500 MG/5 ML LIQUID UDC GT SCH ×2 (09:34→21:48)
[2022-12-10] MEDS: DOCUSATE SODIUM 100 MG/10 ML LIQUID UDC GT SCH ×2 (09:34→21:48)
[2022-12-10] MEDS: REMEDY ESSENTIAL ZINC PASTE 113 GM TP SCH (09:35)
[2022-12-10] MEDS: METOPROLOL TARTRATE 25 MG TABLET GT SCH ×2 (09:35→21:49)
[2022-12-10] MEDS: DIAZEPAM 5 MG TABLET GT SCH ×2 (09:35→21:50)
[2022-12-10] MEDS: PHENOBARBITAL 64.8 MG TABLET GT SCH ×2 (09:35→21:49)
[2022-12-10] MEDS: CHLORHEXIDINE GLUCONATE 15 ML MOUTHWASH MM SCH (09:35)
[2022-12-10] MEDS: AMIODARONE 100 MG GT SCH (09:35)
[2022-12-10 20:07] VITALS: TEMP 98.4
[2022-12-10] MEDS: MAGNESIUM OXIDE 400 MG TABLET GT SCH (21:49)
[2022-12-10] MEDS: MULTIVIT, IRON, MIN NO. 8, FA TABLET GT SCH (21:50)
[2022-12-11] MEDS: POLYVINYL ALCOHOL OPHT DROPS 15 ML BOTTLE EACHEYE SCH ×2 (06:10→17:06)
[2022-12-11] MEDS: OMEPRAZOLE 40 MG CAPSULE.DR GT SCH (06:10)
[2022-12-11] MEDS: VITAL AF 1.2 1,000 ML LIQUID GT PRN (06:11)
[2022-12-11 08:00] VITALS: TEMP 97.5
[2022-12-11] MEDS: HYDROGEN PEROXIDE 3% 118 ML BOTTLE TP SCH ×2 (08:22→18:55)
[2022-12-11] MEDS: METOPROLOL TARTRATE 25 MG TABLET GT SCH ×2 (09:00→20:44)
[2022-12-11] MEDS: ASPIRIN 81 MG TAB.CHEW GT SCH (09:05)
[2022-12-11] MEDS: DOCUSATE SODIUM 100 MG/10 ML LIQUID UDC GT SCH ×2 (09:05→21:54)
[2022-12-11] MEDS: levETIRAcetam 500 MG/5 ML LIQUID UDC GT SCH ×2 (09:06→20:38)
[2022-12-11] MEDS: AMIODARONE 100 MG GT SCH (09:17)
[2022-12-11] MEDS: CHLORHEXIDINE GLUCONATE 15 ML MOUTHWASH MM SCH (09:17)
[2022-12-11] MEDS: DIAZEPAM 5 MG TABLET GT SCH ×2 (09:17→20:45)
[2022-12-11] MEDS: PHENOBARBITAL 64.8 MG TABLET GT SCH ×2 (09:17→20:44)
[2022-12-11] MEDS: REMEDY ESSENTIAL ZINC PASTE 113 GM TP SCH (09:18)
[2022-12-11 20:30] VITALS: TEMP 98.2
[2022-12-11] MEDS: MAGNESIUM OXIDE 400 MG TABLET GT SCH (20:44)
[2022-12-11] MEDS: MULTIVIT, IRON, MIN NO. 8, FA TABLET GT SCH (20:45)
[2022-12-12] MEDS: POLYVINYL ALCOHOL OPHT DROPS 15 ML BOTTLE EACHEYE SCH ×2 (05:14→17:17)
[2022-12-12] MEDS: OMEPRAZOLE 40 MG CAPSULE.DR GT SCH (05:14)
[2022-12-12 08:00] VITALS: TEMP 97.6
[2022-12-12] MEDS: METOPROLOL TARTRATE 25 MG TABLET GT SCH ×2 (08:27→21:51)
[2022-12-12] MEDS: DIAZEPAM 5 MG TABLET GT SCH ×2 (08:27→21:25)
[2022-12-12] MEDS: PHENOBARBITAL 64.8 MG TABLET GT SCH ×2 (08:27→21:24)
[2022-12-12] MEDS: AMIODARONE 100 MG GT SCH (08:27)
[2022-12-12] MEDS: levETIRAcetam 500 MG/5 ML LIQUID UDC GT SCH ×2 (08:27→21:24)
[2022-12-12] MEDS: DOCUSATE SODIUM 100 MG/10 ML LIQUID UDC GT SCH ×2 (08:27→21:23)
[2022-12-12] MEDS: ASPIRIN 81 MG TAB.CHEW GT SCH (08:27)
[2022-12-12] MEDS: CHLORHEXIDINE GLUCONATE 15 ML MOUTHWASH MM SCH (08:28)
[2022-12-12] MEDS: REMEDY ESSENTIAL ZINC PASTE 113 GM TP SCH (08:28)
[2022-12-12] MEDS: HYDROGEN PEROXIDE 3% 118 ML BOTTLE TP SCH ×2 (09:04→19:06)
[2022-12-12] MEDS: MAGNESIUM OXIDE 400 MG TABLET GT SCH (21:24)
[2022-12-12] MEDS: MULTIVIT, IRON, MIN NO. 8, FA TABLET GT SCH (21:25)
[2022-12-13 01:01] VITALS: TEMP 97.8
[2022-12-13] MEDS: POLYVINYL ALCOHOL OPHT DROPS 15 ML BOTTLE EACHEYE SCH ×2 (05:19→17:06)
[2022-12-13] MEDS: OMEPRAZOLE 40 MG CAPSULE.DR GT SCH (05:19)
[2022-12-13 07:27] VITALS: TEMP 97.4
[2022-12-13] MEDS: HYDROGEN PEROXIDE 3% 118 ML BOTTLE TP SCH ×2 (09:00→19:12)
[2022-12-13] MEDS: METOPROLOL TARTRATE 25 MG TABLET GT SCH ×2 (09:00→20:45)
[2022-12-13] MEDS: ASPIRIN 81 MG TAB.CHEW GT SCH (09:26)
[2022-12-13] MEDS: DOCUSATE SODIUM 100 MG/10 ML LIQUID UDC GT SCH ×2 (09:27→20:24)
[2022-12-13] MEDS: levETIRAcetam 500 MG/5 ML LIQUID UDC GT SCH ×2 (09:27→20:24)
[2022-12-13] MEDS: REMEDY ESSENTIAL ZINC PASTE 113 GM TP SCH (09:35)
[2022-12-13] MEDS: CHLORHEXIDINE GLUCONATE 15 ML MOUTHWASH MM SCH (09:35)
[2022-12-13] MEDS: AMIODARONE 100 MG GT SCH (09:35)
[2022-12-13] MEDS: DIAZEPAM 5 MG TABLET GT SCH ×2 (09:35→20:26)
[2022-12-13] MEDS: PHENOBARBITAL 64.8 MG TABLET GT SCH ×2 (09:35→20:27)
[2022-12-13] MEDS: NUTRISOURCE FIBER 4 GM PACKET GT SCH (17:06)
[2022-12-13] MEDS: MAGNESIUM OXIDE 400 MG TABLET GT SCH (20:25)
[2022-12-13] MEDS: MULTIVIT, IRON, MIN NO. 8, FA TABLET GT SCH (20:26)
[2022-12-13 21:10] VITALS: TEMP 97.9
[2022-12-14] MEDS: NUTRISOURCE FIBER 4 GM PACKET GT SCH ×3 (01:19→17:00)
[2022-12-14] MEDS: VITAL AF 1.2 1,000 ML LIQUID GT PRN (04:19)
[2022-12-14] MEDS: OMEPRAZOLE 40 MG CAPSULE.DR GT SCH (05:39)
[2022-12-14] MEDS: POLYVINYL ALCOHOL OPHT DROPS 15 ML BOTTLE EACHEYE SCH ×2 (05:39→18:02)
[2022-12-14 07:21] VITALS: TEMP 97.5
[2022-12-14] MEDS: HYDROGEN PEROXIDE 3% 118 ML BOTTLE TP SCH ×2 (07:35→19:18)
[2022-12-14] MEDS: DOCUSATE SODIUM 100 MG/10 ML LIQUID UDC GT SCH ×2 (08:48→21:25)
[2022-12-14] MEDS: ASPIRIN 81 MG TAB.CHEW GT SCH (08:48)
[2022-12-14] MEDS: levETIRAcetam 500 MG/5 ML LIQUID UDC GT SCH ×2 (08:49→21:25)
[2022-12-14] MEDS: CHLORHEXIDINE GLUCONATE 15 ML MOUTHWASH MM SCH (08:51)
[2022-12-14] MEDS: METOPROLOL TARTRATE 25 MG TABLET GT SCH ×2 (08:51→21:25)
[2022-12-14] MEDS: PHENOBARBITAL 64.8 MG TABLET GT SCH ×2 (08:51→21:31)
[2022-12-14] MEDS: DIAZEPAM 5 MG TABLET GT SCH ×2 (08:51→21:31)
[2022-12-14] MEDS: AMIODARONE 100 MG GT SCH (08:51)
[2022-12-14] MEDS: REMEDY ESSENTIAL ZINC PASTE 113 GM TP SCH (08:52)
[2022-12-14 20:00] VITALS: TEMP 97.6
[2022-12-14] MEDS: MAGNESIUM OXIDE 400 MG TABLET GT SCH (21:26)
[2022-12-14] MEDS: MULTIVIT, IRON, MIN NO. 8, FA TABLET GT SCH (21:27)
[2022-12-15] MEDS: NUTRISOURCE FIBER 4 GM PACKET GT SCH ×3 (00:47→17:00)
[2022-12-15] MEDS: POLYVINYL ALCOHOL OPHT DROPS 15 ML BOTTLE EACHEYE SCH ×2 (05:39→17:01)
[2022-12-15] MEDS: OMEPRAZOLE 40 MG CAPSULE.DR GT SCH (05:39)
[2022-12-15] MEDS: HYDROGEN PEROXIDE 3% 118 ML BOTTLE TP SCH ×2 (07:54→19:03)
[2022-12-15 08:00] VITALS: TEMP 97.6
[2022-12-15] MEDS: METOPROLOL TARTRATE 25 MG TABLET GT SCH ×2 (09:00→20:22)
[2022-12-15] MEDS: ASPIRIN 81 MG TAB.CHEW GT SCH (09:08)
[2022-12-15] MEDS: DOCUSATE SODIUM 100 MG/10 ML LIQUID UDC GT SCH ×2 (09:09→21:00)
[2022-12-15] MEDS: levETIRAcetam 500 MG/5 ML LIQUID UDC GT SCH ×2 (09:10→20:22)
[2022-12-15] MEDS: AMIODARONE 100 MG GT SCH (09:12)
[2022-12-15] MEDS: DIAZEPAM 5 MG TABLET GT SCH ×2 (09:16→20:23)
[2022-12-15] MEDS: PHENOBARBITAL 64.8 MG TABLET GT SCH ×2 (09:16→20:23)
[2022-12-15] MEDS: REMEDY ESSENTIAL ZINC PASTE 113 GM TP SCH (09:18)
[2022-12-15] MEDS: CHLORHEXIDINE GLUCONATE 15 ML MOUTHWASH MM SCH (09:18)
[2022-12-15] MEDS: VITAL AF 1.2 1,000 ML LIQUID GT PRN (12:02)
[2022-12-15 20:00] VITALS: TEMP 97.8
[2022-12-15] MEDS: MAGNESIUM OXIDE 400 MG TABLET GT SCH (20:23)
[2022-12-15] MEDS: MULTIVIT, IRON, MIN NO. 8, FA TABLET GT SCH (20:23)
[2022-12-16] MEDS: NUTRISOURCE FIBER 4 GM PACKET GT SCH ×3 (00:20→17:52)
[2022-12-16] MEDS: POLYVINYL ALCOHOL OPHT DROPS 15 ML BOTTLE EACHEYE SCH ×2 (05:39→17:52)
[2022-12-16] MEDS: OMEPRAZOLE 40 MG CAPSULE.DR GT SCH (05:39)
[2022-12-16] MEDS: HYDROGEN PEROXIDE 3% 118 ML BOTTLE TP SCH ×2 (07:28→21:06)
[2022-12-16 08:00] VITALS: TEMP 97.6
[2022-12-16] MEDS: METOPROLOL TARTRATE 25 MG TABLET GT SCH ×2 (09:00→21:00)
[2022-12-16] MEDS: levETIRAcetam 500 MG/5 ML LIQUID UDC GT SCH ×2 (09:47→21:00)
[2022-12-16] MEDS: ASPIRIN 81 MG TAB.CHEW GT SCH (09:47)
[2022-12-16] MEDS: DOCUSATE SODIUM 100 MG/10 ML LIQUID UDC GT SCH ×2 (09:47→21:00)
[2022-12-16] MEDS: CHLORHEXIDINE GLUCONATE 15 ML MOUTHWASH MM SCH (09:48)
[2022-12-16] MEDS: PHENOBARBITAL 64.8 MG TABLET GT SCH ×2 (09:48→21:00)
[2022-12-16] MEDS: DIAZEPAM 5 MG TABLET GT SCH ×2 (09:48→21:00)
[2022-12-16] MEDS: REMEDY ESSENTIAL ZINC PASTE 113 GM TP SCH (09:48)
[2022-12-16] MEDS: AMIODARONE 100 MG GT SCH (09:48)
[2022-12-16] MEDS: VITAL AF 1.2 1,000 ML LIQUID GT PRN (15:42)
[2022-12-16] MEDS: MULTIVIT, IRON, MIN NO. 8, FA TABLET GT SCH (21:00)
[2022-12-16] MEDS: MAGNESIUM OXIDE 400 MG TABLET GT SCH (21:00)
[2022-12-16 22:00] VITALS: TEMP 97.8
[2022-12-17] MEDS: NUTRISOURCE FIBER 4 GM PACKET GT SCH ×3 (01:00→17:24)
[2022-12-17] MEDS: POLYVINYL ALCOHOL OPHT DROPS 15 ML BOTTLE EACHEYE SCH ×2 (06:18→17:24)
[2022-12-17] MEDS: OMEPRAZOLE 40 MG CAPSULE.DR GT SCH (06:18)
[2022-12-17 07:36] VITALS: TEMP 97.5
[2022-12-17] MEDS: HYDROGEN PEROXIDE 3% 118 ML BOTTLE TP SCH ×2 (09:00→20:06)
[2022-12-17] MEDS: METOPROLOL TARTRATE 25 MG TABLET GT SCH ×2 (09:00→20:41)
[2022-12-17] MEDS: DOCUSATE SODIUM 100 MG/10 ML LIQUID UDC GT SCH ×2 (09:25→20:41)
[2022-12-17] MEDS: ASPIRIN 81 MG TAB.CHEW GT SCH (09:25)
[2022-12-17] MEDS: levETIRAcetam 500 MG/5 ML LIQUID UDC GT SCH ×2 (09:25→20:41)
[2022-12-17] MEDS: REMEDY ESSENTIAL ZINC PASTE 113 GM TP SCH (09:27)
[2022-12-17] MEDS: PHENOBARBITAL 64.8 MG TABLET GT SCH ×2 (09:27→20:41)
[2022-12-17] MEDS: AMIODARONE 100 MG GT SCH (09:27)
[2022-12-17] MEDS: DIAZEPAM 5 MG TABLET GT SCH ×2 (09:27→20:41)
[2022-12-17] MEDS: CHLORHEXIDINE GLUCONATE 15 ML MOUTHWASH MM SCH (09:27)
[2022-12-17 20:23] VITALS: TEMP 98.7
[2022-12-17] MEDS: MULTIVIT, IRON, MIN NO. 8, FA TABLET GT SCH (20:41)
[2022-12-17] MEDS: MAGNESIUM OXIDE 400 MG TABLET GT SCH (20:41)
[2022-12-18] MEDS: NUTRISOURCE FIBER 4 GM PACKET GT SCH ×3 (01:05→17:09)
[2022-12-18] MEDS: POLYVINYL ALCOHOL OPHT DROPS 15 ML BOTTLE EACHEYE SCH ×2 (05:58→17:09)
[2022-12-18] MEDS: OMEPRAZOLE 40 MG CAPSULE.DR GT SCH (05:58)
[2022-12-18] MEDS: HYDROGEN PEROXIDE 3% 118 ML BOTTLE TP SCH ×2 (09:00→21:00)
[2022-12-18] MEDS: AMIODARONE 100 MG GT SCH (09:07)
[2022-12-18] MEDS: REMEDY ESSENTIAL ZINC PASTE 113 GM TP SCH (09:07)
[2022-12-18] MEDS: ASPIRIN 81 MG TAB.CHEW GT SCH (09:07)
[2022-12-18] MEDS: METOPROLOL TARTRATE 25 MG TABLET GT SCH ×2 (09:07→20:37)
[2022-12-18] MEDS: CHLORHEXIDINE GLUCONATE 15 ML MOUTHWASH MM SCH (09:07)
[2022-12-18] MEDS: DIAZEPAM 5 MG TABLET GT SCH ×2 (09:07→20:37)
[2022-12-18] MEDS: DOCUSATE SODIUM 100 MG/10 ML LIQUID UDC GT SCH ×2 (09:07→20:36)
[2022-12-18] MEDS: levETIRAcetam 500 MG/5 ML LIQUID UDC GT SCH ×2 (09:07→20:36)
[2022-12-18] MEDS: PHENOBARBITAL 64.8 MG TABLET GT SCH ×2 (09:07→20:37)
[2022-12-18 09:10] VITALS: TEMP 98.6
[2022-12-18 20:00] VITALS: TEMP 98
[2022-12-18] MEDS: MAGNESIUM OXIDE 400 MG TABLET GT SCH (20:37)
[2022-12-18] MEDS: MULTIVIT, IRON, MIN NO. 8, FA TABLET GT SCH (20:37)
[2022-12-19] MEDS: NUTRISOURCE FIBER 4 GM PACKET GT SCH ×3 (01:04→12:38)
[2022-12-19] MEDS: POLYVINYL ALCOHOL OPHT DROPS 15 ML BOTTLE EACHEYE SCH ×2 (05:14→17:08)
[2022-12-19] MEDS: OMEPRAZOLE 40 MG CAPSULE.DR GT SCH (05:14)
[2022-12-19] MEDS: HYDROGEN PEROXIDE 3% 118 ML BOTTLE TP SCH ×2 (08:10→19:12)
[2022-12-19] MEDS: METOPROLOL TARTRATE 25 MG TABLET GT SCH ×2 (09:00→21:00)
[2022-12-19 09:06] VITALS: TEMP 97.5
[2022-12-19] MEDS: ASPIRIN 81 MG TAB.CHEW GT SCH (09:07)
[2022-12-19] MEDS: levETIRAcetam 500 MG/5 ML LIQUID UDC GT SCH ×2 (09:09→21:00)
[2022-12-19] MEDS: DOCUSATE SODIUM 100 MG/10 ML LIQUID UDC GT SCH ×2 (09:09→21:00)
[2022-12-19] MEDS: PHENOBARBITAL 64.8 MG TABLET GT SCH ×2 (09:11→21:00)
[2022-12-19] MEDS: DIAZEPAM 5 MG TABLET GT SCH ×2 (09:11→21:00)
[2022-12-19] MEDS: AMIODARONE 100 MG GT SCH (09:11)
[2022-12-19] MEDS: REMEDY ESSENTIAL ZINC PASTE 113 GM TP SCH (09:12)
[2022-12-19] MEDS: CHLORHEXIDINE GLUCONATE 15 ML MOUTHWASH MM SCH (09:12)
[2022-12-19 20:28] VITALS: TEMP 97.7
[2022-12-19] MEDS: MULTIVIT, IRON, MIN NO. 8, FA TABLET GT SCH (21:00)
[2022-12-19] MEDS: MAGNESIUM OXIDE 400 MG TABLET GT SCH (21:00)
[2022-12-20] MEDS: NUTRISOURCE FIBER 4 GM PACKET GT SCH ×4 (01:00→23:32)
[2022-12-20] MEDS: VITAL AF 1.2 1,000 ML LIQUID GT PRN (03:28)
[2022-12-20] MEDS: POLYVINYL ALCOHOL OPHT DROPS 15 ML BOTTLE EACHEYE SCH ×2 (06:34→17:00)
[2022-12-20] MEDS: OMEPRAZOLE 40 MG CAPSULE.DR GT SCH (06:34)
[2022-12-20 07:16] VITALS: TEMP 97.6
[2022-12-20] MEDS: DOCUSATE SODIUM 100 MG/10 ML LIQUID UDC GT SCH ×2 (08:36→21:00)
[2022-12-20] MEDS: ASPIRIN 81 MG TAB.CHEW GT SCH (08:36)
[2022-12-20] MEDS: levETIRAcetam 500 MG/5 ML LIQUID UDC GT SCH ×2 (08:36→21:00)
[2022-12-20] MEDS: METOPROLOL TARTRATE 25 MG TABLET GT SCH ×2 (08:39→21:00)
[2022-12-20] MEDS: PHENOBARBITAL 64.8 MG TABLET GT SCH ×2 (08:43→21:00)
[2022-12-20] MEDS: AMIODARONE 100 MG GT SCH (08:43)
[2022-12-20] MEDS: CHLORHEXIDINE GLUCONATE 15 ML MOUTHWASH MM SCH (08:44)
[2022-12-20] MEDS: DIAZEPAM 5 MG TABLET GT SCH ×2 (08:44→21:00)
[2022-12-20] MEDS: REMEDY ESSENTIAL ZINC PASTE 113 GM TP SCH (08:44)
[2022-12-20] MEDS: HYDROGEN PEROXIDE 3% 118 ML BOTTLE TP SCH ×2 (09:00→19:26)
[2022-12-20] MEDS: MULTIVIT, IRON, MIN NO. 8, FA TABLET GT SCH (21:00)
[2022-12-20] MEDS: MAGNESIUM OXIDE 400 MG TABLET GT SCH (21:00)
[2022-12-20 21:47] VITALS: TEMP 97.8
[2022-12-21] MEDS: POLYVINYL ALCOHOL OPHT DROPS 15 ML BOTTLE EACHEYE SCH ×2 (06:21→17:21)
[2022-12-21] MEDS: OMEPRAZOLE 40 MG CAPSULE.DR GT SCH (06:21)
[2022-12-21 07:42] VITALS: TEMP 98.1
[2022-12-21] MEDS: ASPIRIN 81 MG TAB.CHEW GT SCH (08:16)
[2022-12-21] MEDS: DOCUSATE SODIUM 100 MG/10 ML LIQUID UDC GT SCH ×2 (08:18→21:55)
[2022-12-21] MEDS: HYDROGEN PEROXIDE 3% 118 ML BOTTLE TP SCH ×2 (08:28→18:52)
[2022-12-21] MEDS: levETIRAcetam 500 MG/5 ML LIQUID UDC GT SCH ×2 (08:30→21:55)
[2022-12-21] MEDS: METOPROLOL TARTRATE 25 MG TABLET GT SCH ×2 (08:31→21:56)
[2022-12-21] MEDS: NUTRISOURCE FIBER 4 GM PACKET GT SCH ×2 (08:31→17:21)
[2022-12-21] MEDS: AMIODARONE 100 MG GT SCH (08:31)
[2022-12-21] MEDS: PHENOBARBITAL 64.8 MG TABLET GT SCH ×2 (08:31→21:00)
[2022-12-21] MEDS: CHLORHEXIDINE GLUCONATE 15 ML MOUTHWASH MM SCH (08:32)
[2022-12-21] MEDS: DIAZEPAM 5 MG TABLET GT SCH ×2 (08:32→21:00)
[2022-12-21] MEDS: REMEDY ESSENTIAL ZINC PASTE 113 GM TP SCH (08:32)
[2022-12-21 20:00] VITALS: TEMP 98.8
[2022-12-21] MEDS: MAGNESIUM OXIDE 400 MG TABLET GT SCH (21:56)
[2022-12-21] MEDS: MULTIVIT, IRON, MIN NO. 8, FA TABLET GT SCH (21:56)
[2022-12-22] MEDS: NUTRISOURCE FIBER 4 GM PACKET GT SCH ×3 (01:46→17:24)
[2022-12-22] MEDS: OMEPRAZOLE 40 MG CAPSULE.DR GT SCH (05:22)
[2022-12-22] MEDS: POLYVINYL ALCOHOL OPHT DROPS 15 ML BOTTLE EACHEYE SCH ×2 (05:22→17:24)
[2022-12-22 08:00] VITALS: TEMP 98.2
[2022-12-22] MEDS: HYDROGEN PEROXIDE 3% 118 ML BOTTLE TP SCH ×2 (08:23→19:19)
[2022-12-22] MEDS: DOCUSATE SODIUM 100 MG/10 ML LIQUID UDC GT SCH ×2 (08:50→20:26)
[2022-12-22] MEDS: ASPIRIN 81 MG TAB.CHEW GT SCH (08:50)
[2022-12-22] MEDS: levETIRAcetam 500 MG/5 ML LIQUID UDC GT SCH ×2 (08:52→20:26)
[2022-12-22] MEDS: METOPROLOL TARTRATE 25 MG TABLET GT SCH ×2 (08:52→20:26)
[2022-12-22] MEDS: PHENOBARBITAL 64.8 MG TABLET GT SCH ×2 (08:53→20:36)
[2022-12-22] MEDS: AMIODARONE 100 MG GT SCH (08:53)
[2022-12-22] MEDS: CHLORHEXIDINE GLUCONATE 15 ML MOUTHWASH MM SCH (08:54)
[2022-12-22] MEDS: DIAZEPAM 5 MG TABLET GT SCH ×2 (08:54→20:36)
[2022-12-22] MEDS: REMEDY ESSENTIAL ZINC PASTE 113 GM TP SCH (08:55)
[2022-12-22] MEDS: VITAL AF 1.2 1,000 ML LIQUID GT PRN (10:27)
[2022-12-22] MEDS: MULTIVIT, IRON, MIN NO. 8, FA TABLET GT SCH (20:28)
[2022-12-22] MEDS: MAGNESIUM OXIDE 400 MG TABLET GT SCH (20:28)
[2022-12-22 22:30] VITALS: TEMP 98.4
[2022-12-23] MEDS: NUTRISOURCE FIBER 4 GM PACKET GT SCH ×3 (01:00→17:07)
[2022-12-23] MEDS: OMEPRAZOLE 40 MG CAPSULE.DR GT SCH (06:10)
[2022-12-23] MEDS: POLYVINYL ALCOHOL OPHT DROPS 15 ML BOTTLE EACHEYE SCH ×2 (06:10→17:07)
[2022-12-23] MEDS: ASPIRIN 81 MG TAB.CHEW GT SCH (08:05)
[2022-12-23] MEDS: DOCUSATE SODIUM 100 MG/10 ML LIQUID UDC GT SCH ×2 (08:07→20:51)
[2022-12-23] MEDS: levETIRAcetam 500 MG/5 ML LIQUID UDC GT SCH ×2 (08:08→20:51)
[2022-12-23] MEDS: REMEDY ESSENTIAL ZINC PASTE 113 GM TP SCH (08:11)
[2022-12-23] MEDS: DIAZEPAM 5 MG TABLET GT SCH ×2 (08:11→20:52)
[2022-12-23] MEDS: PHENOBARBITAL 64.8 MG TABLET GT SCH ×2 (08:11→20:52)
[2022-12-23] MEDS: AMIODARONE 100 MG GT SCH (08:11)
[2022-12-23] MEDS: CHLORHEXIDINE GLUCONATE 15 ML MOUTHWASH MM SCH (08:11)
[2022-12-23] MEDS: METOPROLOL TARTRATE 25 MG TABLET GT SCH ×2 (08:11→20:52)
[2022-12-23] MEDS: HYDROGEN PEROXIDE 3% 118 ML BOTTLE TP SCH ×2 (10:44→19:49)
[2022-12-23 11:25] VITALS: TEMP 97.6
[2022-12-23] MEDS: VITAL AF 1.2 1,000 ML LIQUID GT PRN (13:18)
[2022-12-23] MEDS: MAGNESIUM OXIDE 400 MG TABLET GT SCH (20:52)
[2022-12-23] MEDS: MULTIVIT, IRON, MIN NO. 8, FA TABLET GT SCH (20:52)
[2022-12-23 21:00] VITALS: TEMP 98.5
[2022-12-24] MEDS: NUTRISOURCE FIBER 4 GM PACKET GT SCH ×3 (01:17→16:55)
[2022-12-24] MEDS: OMEPRAZOLE 40 MG CAPSULE.DR GT SCH (05:29)
[2022-12-24] MEDS: POLYVINYL ALCOHOL OPHT DROPS 15 ML BOTTLE EACHEYE SCH ×2 (05:29→17:16)
[2022-12-24] MEDS: HYDROGEN PEROXIDE 3% 118 ML BOTTLE TP SCH ×2 (07:26→21:04)
[2022-12-24 08:00] VITALS: TEMP 97
[2022-12-24] MEDS: levETIRAcetam 500 MG/5 ML LIQUID UDC GT SCH ×2 (08:15→21:49)
[2022-12-24] MEDS: DOCUSATE SODIUM 100 MG/10 ML LIQUID UDC GT SCH ×2 (08:15→21:49)
[2022-12-24] MEDS: ASPIRIN 81 MG TAB.CHEW GT SCH (08:15)
[2022-12-24] MEDS: REMEDY ESSENTIAL ZINC PASTE 113 GM TP SCH (08:16)
[2022-12-24] MEDS: AMIODARONE 100 MG GT SCH (08:16)
[2022-12-24] MEDS: CHLORHEXIDINE GLUCONATE 15 ML MOUTHWASH MM SCH (08:16)
[2022-12-24] MEDS: DIAZEPAM 5 MG TABLET GT SCH ×2 (08:16→21:52)
[2022-12-24] MEDS: METOPROLOL TARTRATE 25 MG TABLET GT SCH ×2 (08:16→21:52)
[2022-12-24] MEDS: PHENOBARBITAL 64.8 MG TABLET GT SCH ×2 (08:16→21:52)
[2022-12-24 20:39] VITALS: TEMP 98.4
[2022-12-24] MEDS: MAGNESIUM OXIDE 400 MG TABLET GT SCH (21:52)
[2022-12-24] MEDS: MULTIVIT, IRON, MIN NO. 8, FA TABLET GT SCH (21:52)
[2022-12-25] MEDS: NUTRISOURCE FIBER 4 GM PACKET GT SCH ×3 (01:00→17:00)
[2022-12-25] MEDS: OMEPRAZOLE 40 MG CAPSULE.DR GT SCH (05:44)
[2022-12-25] MEDS: POLYVINYL ALCOHOL OPHT DROPS 15 ML BOTTLE EACHEYE SCH ×2 (05:44→18:26)
[2022-12-25] MEDS: ASPIRIN 81 MG TAB.CHEW GT SCH (08:47)
[2022-12-25] MEDS: levETIRAcetam 500 MG/5 ML LIQUID UDC GT SCH ×2 (08:48→20:33)
[2022-12-25] MEDS: DOCUSATE SODIUM 100 MG/10 ML LIQUID UDC GT SCH ×2 (08:48→20:33)
[2022-12-25] MEDS: METOPROLOL TARTRATE 25 MG TABLET GT SCH ×2 (08:51→20:34)
[2022-12-25] MEDS: AMIODARONE 100 MG GT SCH (08:52)
[2022-12-25] MEDS: PHENOBARBITAL 64.8 MG TABLET GT SCH ×2 (08:52→20:35)
[2022-12-25] MEDS: DIAZEPAM 5 MG TABLET GT SCH ×2 (08:54→20:35)
[2022-12-25] MEDS: CHLORHEXIDINE GLUCONATE 15 ML MOUTHWASH MM SCH (08:54)
[2022-12-25] MEDS: REMEDY ESSENTIAL ZINC PASTE 113 GM TP SCH (08:54)
[2022-12-25] MEDS: HYDROGEN PEROXIDE 3% 118 ML BOTTLE TP SCH ×2 (08:54→21:13)
[2022-12-25 09:06] VITALS: TEMP 97.7
[2022-12-25 20:34] VITALS: TEMP 97.8
[2022-12-25] MEDS: MULTIVIT, IRON, MIN NO. 8, FA TABLET GT SCH (20:34)
[2022-12-25] MEDS: MAGNESIUM OXIDE 400 MG TABLET GT SCH (20:34)
[2022-12-26] MEDS: NUTRISOURCE FIBER 4 GM PACKET GT SCH ×3 (00:07→17:39)
[2022-12-26] MEDS: VITAL AF 1.2 1,000 ML LIQUID GT PRN (00:07)
[2022-12-26] MEDS: OMEPRAZOLE 40 MG CAPSULE.DR GT SCH (05:49)
[2022-12-26] MEDS: POLYVINYL ALCOHOL OPHT DROPS 15 ML BOTTLE EACHEYE SCH ×2 (05:49→17:40)
[2022-12-26] MEDS: HYDROGEN PEROXIDE 3% 118 ML BOTTLE TP SCH ×2 (09:28→20:49)
[2022-12-26] MEDS: DOCUSATE SODIUM 100 MG/10 ML LIQUID UDC GT SCH ×2 (09:32→20:32)
[2022-12-26] MEDS: ASPIRIN 81 MG TAB.CHEW GT SCH (09:32)
[2022-12-26] MEDS: levETIRAcetam 500 MG/5 ML LIQUID UDC GT SCH ×2 (09:34→20:32)
[2022-12-26] MEDS: METOPROLOL TARTRATE 25 MG TABLET GT SCH ×2 (09:39→20:33)
[2022-12-26] MEDS: AMIODARONE 100 MG GT SCH (09:40)
[2022-12-26] MEDS: REMEDY ESSENTIAL ZINC PASTE 113 GM TP SCH (09:42)
[2022-12-26] MEDS: CHLORHEXIDINE GLUCONATE 15 ML MOUTHWASH MM SCH (09:42)
[2022-12-26] MEDS: PHENOBARBITAL 64.8 MG TABLET GT SCH ×2 (09:47→20:34)
[2022-12-26] MEDS: DIAZEPAM 5 MG TABLET GT SCH ×2 (09:47→20:36)
[2022-12-26 12:04] VITALS: TEMP 98.1
[2022-12-26 20:00] VITALS: TEMP 98.8
[2022-12-26] MEDS: MAGNESIUM OXIDE 400 MG TABLET GT SCH (20:34)
[2022-12-26] MEDS: MULTIVIT, IRON, MIN NO. 8, FA TABLET GT SCH (20:36)
[2022-12-27] MEDS: NUTRISOURCE FIBER 4 GM PACKET GT SCH ×3 (01:21→17:49)
[2022-12-27] MEDS: VITAL AF 1.2 1,000 ML LIQUID GT PRN (03:35)
[2022-12-27] MEDS: POLYVINYL ALCOHOL OPHT DROPS 15 ML BOTTLE EACHEYE SCH ×2 (05:56→17:50)
[2022-12-27] MEDS: OMEPRAZOLE 40 MG CAPSULE.DR GT SCH (05:56)
[2022-12-27 08:00] VITALS: TEMP 97.2
[2022-12-27] MEDS: HYDROGEN PEROXIDE 3% 118 ML BOTTLE TP SCH ×2 (09:00→19:14)
[2022-12-27] MEDS: DOCUSATE SODIUM 100 MG/10 ML LIQUID UDC GT SCH ×2 (09:45→20:52)
[2022-12-27] MEDS: ASPIRIN 81 MG TAB.CHEW GT SCH (09:45)
[2022-12-27] MEDS: METOPROLOL TARTRATE 25 MG TABLET GT SCH ×2 (09:47→20:54)
[2022-12-27] MEDS: levETIRAcetam 500 MG/5 ML LIQUID UDC GT SCH ×2 (09:47→20:53)
[2022-12-27] MEDS: DIAZEPAM 5 MG TABLET GT SCH ×2 (09:48→20:55)
[2022-12-27] MEDS: REMEDY ESSENTIAL ZINC PASTE 113 GM TP SCH (09:48)
[2022-12-27] MEDS: AMIODARONE 100 MG GT SCH (09:48)
[2022-12-27] MEDS: CHLORHEXIDINE GLUCONATE 15 ML MOUTHWASH MM SCH (09:48)
[2022-12-27] MEDS: PHENOBARBITAL 64.8 MG TABLET GT SCH ×2 (09:49→20:54)
[2022-12-27 20:00] VITALS: TEMP 98.2
[2022-12-27] MEDS: MAGNESIUM OXIDE 400 MG TABLET GT SCH (20:54)
[2022-12-27] MEDS: MULTIVIT, IRON, MIN NO. 8, FA TABLET GT SCH (20:55)
[2022-12-28] MEDS: NUTRISOURCE FIBER 4 GM PACKET GT SCH ×3 (01:14→17:00)
[2022-12-28] MEDS: VITAL AF 1.2 1,000 ML LIQUID GT PRN (03:30)
[2022-12-28] MEDS: POLYVINYL ALCOHOL OPHT DROPS 15 ML BOTTLE EACHEYE SCH ×2 (06:15→17:00)
[2022-12-28] MEDS: OMEPRAZOLE 40 MG CAPSULE.DR GT SCH (06:15)
[2022-12-28 07:32] VITALS: TEMP 98.5
[2022-12-28] MEDS: METOPROLOL TARTRATE 25 MG TABLET GT SCH ×2 (08:55→21:00)
[2022-12-28] MEDS: ASPIRIN 81 MG TAB.CHEW GT SCH (08:57)
[2022-12-28] MEDS: levETIRAcetam 500 MG/5 ML LIQUID UDC GT SCH ×2 (08:57→21:00)
[2022-12-28] MEDS: AMIODARONE 100 MG GT SCH (08:57)
[2022-12-28] MEDS: DOCUSATE SODIUM 100 MG/10 ML LIQUID UDC GT SCH ×2 (08:57→21:00)
[2022-12-28] MEDS: PHENOBARBITAL 64.8 MG TABLET GT SCH ×2 (08:57→21:00)
[2022-12-28] MEDS: REMEDY ESSENTIAL ZINC PASTE 113 GM TP SCH (08:58)
[2022-12-28] MEDS: DIAZEPAM 5 MG TABLET GT SCH ×2 (08:58→21:00)
[2022-12-28] MEDS: CHLORHEXIDINE GLUCONATE 15 ML MOUTHWASH MM SCH (08:58)
[2022-12-28] MEDS: HYDROGEN PEROXIDE 3% 118 ML BOTTLE TP SCH ×2 (09:00→18:25)
[2022-12-28 20:00] VITALS: TEMP 98.4
[2022-12-28] MEDS: MULTIVIT, IRON, MIN NO. 8, FA TABLET GT SCH (21:00)
[2022-12-28] MEDS: MAGNESIUM OXIDE 400 MG TABLET GT SCH (21:00)
[2022-12-29] MEDS: NUTRISOURCE FIBER 4 GM PACKET GT SCH ×3 (00:19→17:00)
[2022-12-29] MEDS: POLYVINYL ALCOHOL OPHT DROPS 15 ML BOTTLE EACHEYE SCH ×2 (06:08→18:27)
[2022-12-29] MEDS: OMEPRAZOLE 40 MG CAPSULE.DR GT SCH (06:08)
[2022-12-29 07:42] VITALS: TEMP 98.2
[2022-12-29] MEDS: DOCUSATE SODIUM 100 MG/10 ML LIQUID UDC GT SCH ×2 (08:09→21:00)
[2022-12-29] MEDS: levETIRAcetam 500 MG/5 ML LIQUID UDC GT SCH ×2 (08:09→21:00)
[2022-12-29] MEDS: METOPROLOL TARTRATE 25 MG TABLET GT SCH ×2 (08:09→21:00)
[2022-12-29] MEDS: ASPIRIN 81 MG TAB.CHEW GT SCH (08:09)
[2022-12-29] MEDS: DIAZEPAM 5 MG TABLET GT SCH ×2 (08:10→21:00)
[2022-12-29] MEDS: AMIODARONE 100 MG GT SCH (08:10)
[2022-12-29] MEDS: PHENOBARBITAL 64.8 MG TABLET GT SCH ×2 (08:10→21:00)
[2022-12-29] MEDS: CHLORHEXIDINE GLUCONATE 15 ML MOUTHWASH MM SCH (08:10)
[2022-12-29] MEDS: REMEDY ESSENTIAL ZINC PASTE 113 GM TP SCH (08:10)
[2022-12-29] MEDS: HYDROGEN PEROXIDE 3% 118 ML BOTTLE TP SCH ×2 (08:47→22:23)
[2022-12-29 20:30] VITALS: TEMP 97.5
[2022-12-29] MEDS: MULTIVIT, IRON, MIN NO. 8, FA TABLET GT SCH (21:00)
[2022-12-29] MEDS: MAGNESIUM OXIDE 400 MG TABLET GT SCH (21:00)
[2022-12-30] MEDS: NUTRISOURCE FIBER 4 GM PACKET GT SCH ×3 (01:04→16:45)
[2022-12-30] MEDS: POLYVINYL ALCOHOL OPHT DROPS 15 ML BOTTLE EACHEYE SCH ×2 (05:01→17:42)
[2022-12-30] MEDS: OMEPRAZOLE 40 MG CAPSULE.DR GT SCH (05:02)
[2022-12-30] MEDS: HYDROGEN PEROXIDE 3% 118 ML BOTTLE TP SCH ×2 (09:00→20:16)
[2022-12-30] MEDS: DOCUSATE SODIUM 100 MG/10 ML LIQUID UDC GT SCH ×2 (09:16→21:00)
[2022-12-30] MEDS: ASPIRIN 81 MG TAB.CHEW GT SCH (09:16)
[2022-12-30] MEDS: levETIRAcetam 500 MG/5 ML LIQUID UDC GT SCH ×2 (09:17→21:00)
[2022-12-30] MEDS: METOPROLOL TARTRATE 25 MG TABLET GT SCH ×2 (09:19→21:00)
[2022-12-30] MEDS: REMEDY ESSENTIAL ZINC PASTE 113 GM TP SCH (09:21)
[2022-12-30] MEDS: PHENOBARBITAL 64.8 MG TABLET GT SCH ×2 (09:21→22:00)
[2022-12-30] MEDS: AMIODARONE 100 MG GT SCH (09:21)
[2022-12-30] MEDS: DIAZEPAM 5 MG TABLET GT SCH ×2 (09:21→21:56)
[2022-12-30] MEDS: CHLORHEXIDINE GLUCONATE 15 ML MOUTHWASH MM SCH (09:21)
[2022-12-30 11:22] VITALS: O2SAT 99
[2022-12-30 20:40] VITALS: TEMP 99
[2022-12-30] MEDS: MULTIVIT, IRON, MIN NO. 8, FA TABLET GT SCH (21:56)
[2022-12-30] MEDS: MAGNESIUM OXIDE 400 MG TABLET GT SCH (21:56)
[2022-12-31] MEDS: NUTRISOURCE FIBER 4 GM PACKET GT SCH ×3 (00:01→16:42)
[2022-12-31] MEDS: POLYVINYL ALCOHOL OPHT DROPS 15 ML BOTTLE EACHEYE SCH ×2 (05:35→17:15)
[2022-12-31] MEDS: OMEPRAZOLE 40 MG CAPSULE.DR GT SCH (05:35)
[2022-12-31 07:41] VITALS: TEMP 97.5
[2022-12-31] MEDS: HYDROGEN PEROXIDE 3% 118 ML BOTTLE TP SCH ×2 (08:28→19:12)
[2022-12-31] MEDS: DOCUSATE SODIUM 100 MG/10 ML LIQUID UDC GT SCH ×2 (08:39→20:40)
[2022-12-31] MEDS: levETIRAcetam 500 MG/5 ML LIQUID UDC GT SCH ×2 (08:39→20:41)
[2022-12-31] MEDS: ASPIRIN 81 MG TAB.CHEW GT SCH (08:39)
[2022-12-31] MEDS: DIAZEPAM 5 MG TABLET GT SCH ×2 (08:40→20:45)
[2022-12-31] MEDS: REMEDY ESSENTIAL ZINC PASTE 113 GM TP SCH (08:40)
[2022-12-31] MEDS: METOPROLOL TARTRATE 25 MG TABLET GT SCH ×2 (08:40→20:43)
[2022-12-31] MEDS: AMIODARONE 100 MG GT SCH (08:40)
[2022-12-31] MEDS: PHENOBARBITAL 64.8 MG TABLET GT SCH ×2 (08:40→20:45)
[2022-12-31] MEDS: CHLORHEXIDINE GLUCONATE 15 ML MOUTHWASH MM SCH (08:40)
[2022-12-31] MEDS: MAGNESIUM OXIDE 400 MG TABLET GT SCH (20:45)
[2022-12-31] MEDS: MULTIVIT, IRON, MIN NO. 8, FA TABLET GT SCH (20:45)
[2022-12-31 22:17] VITALS: TEMP 97.9
[2023-01-01] MEDS: NUTRISOURCE FIBER 4 GM PACKET GT SCH ×3 (01:37→17:26)
[2023-01-01] MEDS: POLYVINYL ALCOHOL OPHT DROPS 15 ML BOTTLE EACHEYE SCH ×2 (05:29→17:33)
[2023-01-01] MEDS: OMEPRAZOLE 40 MG CAPSULE.DR GT SCH (05:29)
[2023-01-01 08:00] VITALS: TEMP 98.2
[2023-01-01] MEDS: levETIRAcetam 500 MG/5 ML LIQUID UDC GT SCH ×2 (09:00→20:34)
[2023-01-01] MEDS: PHENOBARBITAL 64.8 MG TABLET GT SCH ×2 (09:00→20:38)
[2023-01-01] MEDS: AMIODARONE 100 MG GT SCH (09:00)
[2023-01-01] MEDS: REMEDY ESSENTIAL ZINC PASTE 113 GM TP SCH (09:00)
[2023-01-01] MEDS: DIAZEPAM 5 MG TABLET GT SCH ×2 (09:00→20:39)
[2023-01-01] MEDS: DOCUSATE SODIUM 100 MG/10 ML LIQUID UDC GT SCH ×2 (09:00→20:34)
[2023-01-01] MEDS: CHLORHEXIDINE GLUCONATE 15 ML MOUTHWASH MM SCH (09:00)
[2023-01-01] MEDS: METOPROLOL TARTRATE 25 MG TABLET GT SCH ×2 (09:00→20:35)
[2023-01-01] MEDS: ASPIRIN 81 MG TAB.CHEW GT SCH (09:00)
[2023-01-01] MEDS: HYDROGEN PEROXIDE 3% 118 ML BOTTLE TP SCH ×2 (10:30→19:13)
[2023-01-01] MEDS: VITAL AF 1.2 1,000 ML LIQUID GT PRN (17:33)
[2023-01-01] MEDS: MAGNESIUM OXIDE 400 MG TABLET GT SCH (20:38)
[2023-01-01] MEDS: MULTIVIT, IRON, MIN NO. 8, FA TABLET GT SCH (20:38)
[2023-01-01 22:12] VITALS: TEMP 98.5
[2023-01-02] MEDS: NUTRISOURCE FIBER 4 GM PACKET GT SCH ×3 (01:00→17:02)
[2023-01-02] MEDS: POLYVINYL ALCOHOL OPHT DROPS 15 ML BOTTLE EACHEYE SCH ×2 (06:10→17:02)
[2023-01-02] MEDS: OMEPRAZOLE 40 MG CAPSULE.DR GT SCH (06:10)
[2023-01-02] MEDS: HYDROGEN PEROXIDE 3% 118 ML BOTTLE TP SCH ×2 (07:15→21:36)
[2023-01-02] MEDS: ASPIRIN 81 MG TAB.CHEW GT SCH (09:06)
[2023-01-02] MEDS: DOCUSATE SODIUM 100 MG/10 ML LIQUID UDC GT SCH ×2 (09:06→20:28)
[2023-01-02] MEDS: levETIRAcetam 500 MG/5 ML LIQUID UDC GT SCH ×2 (09:06→20:28)
[2023-01-02] MEDS: PHENOBARBITAL 64.8 MG TABLET GT SCH ×2 (09:09→20:28)
[2023-01-02] MEDS: REMEDY ESSENTIAL ZINC PASTE 113 GM TP SCH (09:09)
[2023-01-02] MEDS: AMIODARONE 100 MG GT SCH (09:09)
[2023-01-02] MEDS: DIAZEPAM 5 MG TABLET GT SCH ×2 (09:09→20:28)
[2023-01-02] MEDS: CHLORHEXIDINE GLUCONATE 15 ML MOUTHWASH MM SCH (09:09)
[2023-01-02] MEDS: METOPROLOL TARTRATE 25 MG TABLET GT SCH ×2 (09:09→20:28)
[2023-01-02 09:10] VITALS: TEMP 97.9
[2023-01-02 20:00] VITALS: TEMP 97.8
[2023-01-02] MEDS: MAGNESIUM OXIDE 400 MG TABLET GT SCH (20:28)
[2023-01-02] MEDS: MULTIVIT, IRON, MIN NO. 8, FA TABLET GT SCH (20:28)
[2023-01-03] MEDS: NUTRISOURCE FIBER 4 GM PACKET GT SCH ×3 (01:45→17:32)
[2023-01-03] MEDS: POLYVINYL ALCOHOL OPHT DROPS 15 ML BOTTLE EACHEYE SCH ×2 (05:58→17:32)
[2023-01-03] MEDS: OMEPRAZOLE 40 MG CAPSULE.DR GT SCH (05:59)
[2023-01-03 07:42] VITALS: TEMP 98.2
[2023-01-03] MEDS: ASPIRIN 81 MG TAB.CHEW GT SCH (08:30)
[2023-01-03] MEDS: DOCUSATE SODIUM 100 MG/10 ML LIQUID UDC GT SCH ×2 (08:30→20:37)
[2023-01-03] MEDS: levETIRAcetam 500 MG/5 ML LIQUID UDC GT SCH ×2 (08:31→20:37)
[2023-01-03] MEDS: AMIODARONE 100 MG GT SCH (08:32)
[2023-01-03] MEDS: METOPROLOL TARTRATE 25 MG TABLET GT SCH ×2 (08:32→20:37)
[2023-01-03] MEDS: REMEDY ESSENTIAL ZINC PASTE 113 GM TP SCH (08:32)
[2023-01-03] MEDS: CHLORHEXIDINE GLUCONATE 15 ML MOUTHWASH MM SCH (08:32)
[2023-01-03] MEDS: DIAZEPAM 5 MG TABLET GT SCH ×2 (08:32→20:37)
[2023-01-03] MEDS: PHENOBARBITAL 64.8 MG TABLET GT SCH ×2 (08:32→20:37)
[2023-01-03] MEDS: HYDROGEN PEROXIDE 3% 118 ML BOTTLE TP SCH ×2 (09:00→19:06)
[2023-01-03 20:00] VITALS: TEMP 98
[2023-01-03] MEDS: MULTIVIT, IRON, MIN NO. 8, FA TABLET GT SCH (20:37)
[2023-01-03] MEDS: MAGNESIUM OXIDE 400 MG TABLET GT SCH (20:37)
[2023-01-04] MEDS: NUTRISOURCE FIBER 4 GM PACKET GT SCH ×3 (01:42→17:30)
[2023-01-04] MEDS: POLYVINYL ALCOHOL OPHT DROPS 15 ML BOTTLE EACHEYE SCH ×2 (05:19→17:30)
[2023-01-04] MEDS: OMEPRAZOLE 40 MG CAPSULE.DR GT SCH (05:19)
[2023-01-04 07:48] VITALS: TEMP 96.3
[2023-01-04 07:49] VITALS: TEMP 98.1
[2023-01-04] MEDS: ASPIRIN 81 MG TAB.CHEW GT SCH (08:35)
[2023-01-04] MEDS: DOCUSATE SODIUM 100 MG/10 ML LIQUID UDC GT SCH ×2 (08:36→20:53)
[2023-01-04] MEDS: levETIRAcetam 500 MG/5 ML LIQUID UDC GT SCH ×2 (08:37→20:54)
[2023-01-04] MEDS: METOPROLOL TARTRATE 25 MG TABLET GT SCH ×2 (08:38→20:54)
[2023-01-04] MEDS: PHENOBARBITAL 64.8 MG TABLET GT SCH ×2 (08:44→20:54)
[2023-01-04] MEDS: AMIODARONE 100 MG GT SCH (08:45)
[2023-01-04] MEDS: DIAZEPAM 5 MG TABLET GT SCH ×2 (08:46→20:54)
[2023-01-04] MEDS: REMEDY ESSENTIAL ZINC PASTE 113 GM TP SCH (08:50)
[2023-01-04] MEDS: CHLORHEXIDINE GLUCONATE 15 ML MOUTHWASH MM SCH (09:00)
[2023-01-04] MEDS: HYDROGEN PEROXIDE 3% 118 ML BOTTLE TP SCH ×2 (09:00→19:08)
[2023-01-04] MEDS: VITAL AF 1.2 1,000 ML LIQUID GT PRN (17:31)
[2023-01-04 20:00] VITALS: BP 125/71; TEMP 98.3; O2SAT 99
[2023-01-04] MEDS: MAGNESIUM OXIDE 400 MG TABLET GT SCH (20:54)
[2023-01-04] MEDS: MULTIVIT, IRON, MIN NO. 8, FA TABLET GT SCH (20:54)
[2023-01-05] MEDS: NUTRISOURCE FIBER 4 GM PACKET GT SCH ×3 (00:56→17:00)
[2023-01-05] MEDS: POLYVINYL ALCOHOL OPHT DROPS 15 ML BOTTLE EACHEYE SCH ×2 (06:06→18:25)
[2023-01-05] MEDS: OMEPRAZOLE 40 MG CAPSULE.DR GT SCH (06:14)
[2023-01-05 07:47] VITALS: TEMP 99.3
[2023-01-05] MEDS: DIAZEPAM 5 MG TABLET GT SCH ×2 (08:44→20:47)
[2023-01-05] MEDS: ASPIRIN 81 MG TAB.CHEW GT SCH (08:44)
[2023-01-05] MEDS: AMIODARONE 100 MG GT SCH (08:44)
[2023-01-05] MEDS: CHLORHEXIDINE GLUCONATE 15 ML MOUTHWASH MM SCH (08:44)
[2023-01-05] MEDS: DOCUSATE SODIUM 100 MG/10 ML LIQUID UDC GT SCH ×2 (08:44→20:47)
[2023-01-05] MEDS: METOPROLOL TARTRATE 25 MG TABLET GT SCH ×2 (08:44→20:47)
[2023-01-05] MEDS: PHENOBARBITAL 64.8 MG TABLET GT SCH ×2 (08:44→20:47)
[2023-01-05] MEDS: levETIRAcetam 500 MG/5 ML LIQUID UDC GT SCH ×2 (08:44→20:47)
[2023-01-05] MEDS: REMEDY ESSENTIAL ZINC PASTE 113 GM TP SCH (09:00)
[2023-01-05] MEDS: HYDROGEN PEROXIDE 3% 118 ML BOTTLE TP SCH ×2 (10:30→19:21)
[2023-01-05] MEDS: VITAL AF 1.2 1,000 ML LIQUID GT PRN (19:03)
[2023-01-05 20:00] VITALS: TEMP 98.4
[2023-01-05] MEDS: MAGNESIUM OXIDE 400 MG TABLET GT SCH (20:47)
[2023-01-05] MEDS: MULTIVIT, IRON, MIN NO. 8, FA TABLET GT SCH (20:47)
[2023-01-06] MEDS: NUTRISOURCE FIBER 4 GM PACKET GT SCH ×3 (01:00→17:34)
[2023-01-06] MEDS: POLYVINYL ALCOHOL OPHT DROPS 15 ML BOTTLE EACHEYE SCH ×2 (06:07→17:34)
[2023-01-06] MEDS: OMEPRAZOLE 40 MG CAPSULE.DR GT SCH (06:07)
[2023-01-06] MEDS: HYDROGEN PEROXIDE 3% 118 ML BOTTLE TP SCH ×2 (08:10→19:23)
[2023-01-06] MEDS: ASPIRIN 81 MG TAB.CHEW GT SCH (09:12)
[2023-01-06] MEDS: DOCUSATE SODIUM 100 MG/10 ML LIQUID UDC GT SCH ×2 (09:12→21:00)
[2023-01-06] MEDS: levETIRAcetam 500 MG/5 ML LIQUID UDC GT SCH ×2 (09:12→21:00)
[2023-01-06] MEDS: PHENOBARBITAL 64.8 MG TABLET GT SCH ×2 (09:16→21:00)
[2023-01-06] MEDS: METOPROLOL TARTRATE 25 MG TABLET GT SCH ×2 (09:16→21:00)
[2023-01-06] MEDS: AMIODARONE 100 MG GT SCH (09:16)
[2023-01-06] MEDS: DIAZEPAM 5 MG TABLET GT SCH ×2 (09:16→21:00)
[2023-01-06] MEDS: CHLORHEXIDINE GLUCONATE 15 ML MOUTHWASH MM SCH (09:17)
[2023-01-06] MEDS: REMEDY ESSENTIAL ZINC PASTE 113 GM TP SCH (09:17)
[2023-01-06 11:20] VITALS: TEMP 98
[2023-01-06 20:15] VITALS: TEMP 98
[2023-01-06] MEDS: MAGNESIUM OXIDE 400 MG TABLET GT SCH (21:00)
[2023-01-06] MEDS: MULTIVIT, IRON, MIN NO. 8, FA TABLET GT SCH (21:00)
[2023-01-07] MEDS: VITAL AF 1.2 1,000 ML LIQUID GT PRN (00:46)
[2023-01-07] MEDS: NUTRISOURCE FIBER 4 GM PACKET GT SCH ×3 (00:46→16:14)
[2023-01-07] MEDS: OMEPRAZOLE 40 MG CAPSULE.DR GT SCH (06:01)
[2023-01-07] MEDS: POLYVINYL ALCOHOL OPHT DROPS 15 ML BOTTLE EACHEYE SCH ×2 (06:01→17:58)
[2023-01-07] MEDS: HYDROGEN PEROXIDE 3% 118 ML BOTTLE TP SCH ×2 (08:10→20:56)
[2023-01-07] MEDS: CHLORHEXIDINE GLUCONATE 15 ML MOUTHWASH MM SCH (09:00)
[2023-01-07] MEDS: METOPROLOL TARTRATE 25 MG TABLET GT SCH ×2 (09:00→20:22)
[2023-01-07] MEDS: levETIRAcetam 500 MG/5 ML LIQUID UDC GT SCH ×2 (09:00→20:19)
[2023-01-07] MEDS: AMIODARONE 100 MG GT SCH (09:00)
[2023-01-07] MEDS: ASPIRIN 81 MG TAB.CHEW GT SCH (09:00)
[2023-01-07] MEDS: DOCUSATE SODIUM 100 MG/10 ML LIQUID UDC GT SCH ×2 (09:00→20:15)
[2023-01-07] MEDS: REMEDY ESSENTIAL ZINC PASTE 113 GM TP SCH (09:00)
[2023-01-07] MEDS: PHENOBARBITAL 64.8 MG TABLET GT SCH ×2 (10:00→20:20)
[2023-01-07] MEDS: DIAZEPAM 5 MG TABLET GT SCH ×2 (10:00→20:20)
[2023-01-07 11:34] VITALS: TEMP 98.2
[2023-01-07] MEDS: MAGNESIUM OXIDE 400 MG TABLET GT SCH (20:20)
[2023-01-07] MEDS: MULTIVIT, IRON, MIN NO. 8, FA TABLET GT SCH (20:21)
[2023-01-07 20:29] VITALS: TEMP 97.9
[2023-01-08] MEDS: NUTRISOURCE FIBER 4 GM PACKET GT SCH ×3 (00:39→16:41)
[2023-01-08] MEDS: POLYVINYL ALCOHOL OPHT DROPS 15 ML BOTTLE EACHEYE SCH ×2 (05:09→18:47)
[2023-01-08] MEDS: OMEPRAZOLE 40 MG CAPSULE.DR GT SCH (05:09)
[2023-01-08 08:00] VITALS: TEMP 97.8
[2023-01-08] MEDS: levETIRAcetam 500 MG/5 ML LIQUID UDC GT SCH ×2 (09:00→21:00)
[2023-01-08] MEDS: METOPROLOL TARTRATE 25 MG TABLET GT SCH ×2 (09:00→21:00)
[2023-01-08] MEDS: ASPIRIN 81 MG TAB.CHEW GT SCH (09:00)
[2023-01-08] MEDS: CHLORHEXIDINE GLUCONATE 15 ML MOUTHWASH MM SCH (09:00)
[2023-01-08] MEDS: AMIODARONE 100 MG GT SCH (09:00)
[2023-01-08] MEDS: REMEDY ESSENTIAL ZINC PASTE 113 GM TP SCH (09:00)
[2023-01-08] MEDS: HYDROGEN PEROXIDE 3% 118 ML BOTTLE TP SCH ×2 (09:00→21:01)
[2023-01-08] MEDS: DIAZEPAM 5 MG TABLET GT SCH ×2 (09:00→21:00)
[2023-01-08] MEDS: PHENOBARBITAL 64.8 MG TABLET GT SCH ×2 (09:00→21:00)
[2023-01-08] MEDS: DOCUSATE SODIUM 100 MG/10 ML LIQUID UDC GT SCH ×2 (09:00→21:00)
[2023-01-08] MEDS: VITAL AF 1.2 1,000 ML LIQUID GT PRN (11:58)
[2023-01-08 20:00] VITALS: TEMP 98.4
[2023-01-08] MEDS: MAGNESIUM OXIDE 400 MG TABLET GT SCH (21:00)
[2023-01-08] MEDS: MULTIVIT, IRON, MIN NO. 8, FA TABLET GT SCH (21:00)
[2023-01-09] MEDS: NUTRISOURCE FIBER 4 GM PACKET GT SCH ×3 (01:23→17:05)
[2023-01-09] MEDS: OMEPRAZOLE 40 MG CAPSULE.DR GT SCH (05:11)
[2023-01-09] MEDS: POLYVINYL ALCOHOL OPHT DROPS 15 ML BOTTLE EACHEYE SCH ×2 (05:11→17:05)
[2023-01-09] MEDS: HYDROGEN PEROXIDE 3% 118 ML BOTTLE TP SCH ×2 (07:26→21:17)
[2023-01-09 07:37] VITALS: TEMP 97.6
[2023-01-09] MEDS: PHENOBARBITAL 64.8 MG TABLET GT SCH ×2 (08:40→21:15)
[2023-01-09] MEDS: DIAZEPAM 5 MG TABLET GT SCH ×2 (08:40→21:15)
[2023-01-09] MEDS: ASPIRIN 81 MG TAB.CHEW GT SCH (08:58)
[2023-01-09] MEDS: levETIRAcetam 500 MG/5 ML LIQUID UDC GT SCH ×2 (08:58→21:02)
[2023-01-09] MEDS: DOCUSATE SODIUM 100 MG/10 ML LIQUID UDC GT SCH ×2 (08:58→21:02)
[2023-01-09] MEDS: METOPROLOL TARTRATE 25 MG TABLET GT SCH ×2 (09:00→21:05)
[2023-01-09] MEDS: CHLORHEXIDINE GLUCONATE 15 ML MOUTHWASH MM SCH (09:06)
[2023-01-09] MEDS: REMEDY ESSENTIAL ZINC PASTE 113 GM TP SCH (09:06)
[2023-01-09] MEDS: AMIODARONE 100 MG GT SCH (09:06)
[2023-01-09] MEDS: VITAL AF 1.2 1,000 ML LIQUID GT PRN (17:06)
[2023-01-09 20:00] VITALS: TEMP 97.6
[2023-01-09] MEDS: MAGNESIUM OXIDE 400 MG TABLET GT SCH (21:06)
[2023-01-09] MEDS: MULTIVIT, IRON, MIN NO. 8, FA TABLET GT SCH (21:06)
[2023-01-10] MEDS: NUTRISOURCE FIBER 4 GM PACKET GT SCH ×3 (01:12→17:23)
[2023-01-10] MEDS: POLYVINYL ALCOHOL OPHT DROPS 15 ML BOTTLE EACHEYE SCH ×2 (06:00→17:23)
[2023-01-10] MEDS: OMEPRAZOLE 40 MG CAPSULE.DR GT SCH (06:00)
[2023-01-10 08:00] VITALS: TEMP 97.4
[2023-01-10] MEDS: METOPROLOL TARTRATE 25 MG TABLET GT SCH ×2 (09:00→21:00)
[2023-01-10] MEDS: levETIRAcetam 500 MG/5 ML LIQUID UDC GT SCH ×2 (09:00→21:00)
[2023-01-10] MEDS: DOCUSATE SODIUM 100 MG/10 ML LIQUID UDC GT SCH ×2 (09:00→21:00)
[2023-01-10] MEDS: ASPIRIN 81 MG TAB.CHEW GT SCH (09:00)
[2023-01-10] MEDS: DIAZEPAM 5 MG TABLET GT SCH ×2 (09:00→21:00)
[2023-01-10] MEDS: REMEDY ESSENTIAL ZINC PASTE 113 GM TP SCH (09:00)
[2023-01-10] MEDS: CHLORHEXIDINE GLUCONATE 15 ML MOUTHWASH MM SCH (09:00)
[2023-01-10] MEDS: PHENOBARBITAL 64.8 MG TABLET GT SCH ×2 (09:00→21:00)
[2023-01-10] MEDS: AMIODARONE 100 MG GT SCH (09:00)
[2023-01-10] MEDS: HYDROGEN PEROXIDE 3% 118 ML BOTTLE TP SCH ×2 (09:47→19:29)
[2023-01-10 20:00] VITALS: TEMP 97.8
[2023-01-10] MEDS: MAGNESIUM OXIDE 400 MG TABLET GT SCH (21:00)
[2023-01-10] MEDS: MULTIVIT, IRON, MIN NO. 8, FA TABLET GT SCH (21:00)
[2023-01-11] MEDS: VITAL AF 1.2 1,000 ML LIQUID GT PRN (00:57)
[2023-01-11] MEDS: NUTRISOURCE FIBER 4 GM PACKET GT SCH ×3 (00:57→16:47)
[2023-01-11] MEDS: OMEPRAZOLE 40 MG CAPSULE.DR GT SCH (05:29)
[2023-01-11] MEDS: POLYVINYL ALCOHOL OPHT DROPS 15 ML BOTTLE EACHEYE SCH ×2 (05:29→17:10)
[2023-01-11 08:00] VITALS: TEMP 98.8
[2023-01-11] MEDS: ASPIRIN 81 MG TAB.CHEW GT SCH (09:10)
[2023-01-11] MEDS: levETIRAcetam 500 MG/5 ML LIQUID UDC GT SCH ×2 (09:11→21:30)
[2023-01-11] MEDS: DOCUSATE SODIUM 100 MG/10 ML LIQUID UDC GT SCH ×2 (09:11→21:30)
[2023-01-11] MEDS: METOPROLOL TARTRATE 25 MG TABLET GT SCH ×2 (09:12→21:31)
[2023-01-11] MEDS: AMIODARONE 100 MG GT SCH (09:12)
[2023-01-11] MEDS: REMEDY ESSENTIAL ZINC PASTE 113 GM TP SCH (09:13)
[2023-01-11] MEDS: CHLORHEXIDINE GLUCONATE 15 ML MOUTHWASH MM SCH (09:13)
[2023-01-11] MEDS: HYDROGEN PEROXIDE 3% 118 ML BOTTLE TP SCH ×2 (09:13→20:26)
[2023-01-11] MEDS: DIAZEPAM 5 MG TABLET GT SCH ×2 (09:20→21:31)
[2023-01-11] MEDS: PHENOBARBITAL 64.8 MG TABLET GT SCH ×2 (09:20→21:31)
[2023-01-11 20:00] VITALS: TEMP 98.4
[2023-01-11] MEDS: MAGNESIUM OXIDE 400 MG TABLET GT SCH (21:31)
[2023-01-11] MEDS: MULTIVIT, IRON, MIN NO. 8, FA TABLET GT SCH (21:31)
[2023-01-12] MEDS: NUTRISOURCE FIBER 4 GM PACKET GT SCH ×3 (01:00→17:09)
[2023-01-12] MEDS: OMEPRAZOLE 40 MG CAPSULE.DR GT SCH (05:58)
[2023-01-12] MEDS: POLYVINYL ALCOHOL OPHT DROPS 15 ML BOTTLE EACHEYE SCH ×2 (05:58→17:09)
[2023-01-12 08:03] VITALS: TEMP 97.5
[2023-01-12] MEDS: METOPROLOL TARTRATE 25 MG TABLET GT SCH ×2 (09:00→21:57)
[2023-01-12] MEDS: ASPIRIN 81 MG TAB.CHEW GT SCH (09:26)
[2023-01-12] MEDS: DOCUSATE SODIUM 100 MG/10 ML LIQUID UDC GT SCH ×2 (09:27→21:56)
[2023-01-12] MEDS: PHENOBARBITAL 64.8 MG TABLET GT SCH ×2 (09:28→21:57)
[2023-01-12] MEDS: levETIRAcetam 500 MG/5 ML LIQUID UDC GT SCH ×2 (09:28→21:56)
[2023-01-12] MEDS: DIAZEPAM 5 MG TABLET GT SCH ×2 (09:34→21:57)
[2023-01-12] MEDS: CHLORHEXIDINE GLUCONATE 15 ML MOUTHWASH MM SCH (09:34)
[2023-01-12] MEDS: HYDROGEN PEROXIDE 3% 118 ML BOTTLE TP SCH ×2 (09:34→19:13)
[2023-01-12] MEDS: REMEDY ESSENTIAL ZINC PASTE 113 GM TP SCH (09:34)
[2023-01-12] MEDS: AMIODARONE 100 MG GT SCH (09:40)
[2023-01-12] MEDS: MAGNESIUM OXIDE 400 MG TABLET GT SCH (21:57)
[2023-01-12] MEDS: MULTIVIT, IRON, MIN NO. 8, FA TABLET GT SCH (21:57)
[2023-01-12 23:06] VITALS: TEMP 98.6
[2023-01-13] MEDS: NUTRISOURCE FIBER 4 GM PACKET GT SCH ×3 (01:23→16:25)
[2023-01-13] MEDS: POLYVINYL ALCOHOL OPHT DROPS 15 ML BOTTLE EACHEYE SCH ×2 (06:05→17:02)
[2023-01-13] MEDS: OMEPRAZOLE 40 MG CAPSULE.DR GT SCH (06:05)
[2023-01-13 08:03] VITALS: TEMP 97.7
[2023-01-13] MEDS: DOCUSATE SODIUM 100 MG/10 ML LIQUID UDC GT SCH ×2 (08:52→20:46)
[2023-01-13] MEDS: levETIRAcetam 500 MG/5 ML LIQUID UDC GT SCH ×2 (08:52→20:46)
[2023-01-13] MEDS: ASPIRIN 81 MG TAB.CHEW GT SCH (08:52)
[2023-01-13] MEDS: CHLORHEXIDINE GLUCONATE 15 ML MOUTHWASH MM SCH (08:53)
[2023-01-13] MEDS: REMEDY ESSENTIAL ZINC PASTE 113 GM TP SCH (08:53)
[2023-01-13] MEDS: METOPROLOL TARTRATE 25 MG TABLET GT SCH ×2 (08:53→20:46)
[2023-01-13] MEDS: AMIODARONE 100 MG GT SCH (08:53)
[2023-01-13] MEDS: PHENOBARBITAL 64.8 MG TABLET GT SCH ×2 (08:53→20:47)
[2023-01-13] MEDS: DIAZEPAM 5 MG TABLET GT SCH ×2 (08:53→20:47)
[2023-01-13] MEDS: HYDROGEN PEROXIDE 3% 118 ML BOTTLE TP SCH ×2 (09:00→19:38)
[2023-01-13 19:58] VITALS: TEMP 99
[2023-01-13] MEDS: MAGNESIUM OXIDE 400 MG TABLET GT SCH (20:47)
[2023-01-13] MEDS: MULTIVIT, IRON, MIN NO. 8, FA TABLET GT SCH (20:47)
[2023-01-14] MEDS: NUTRISOURCE FIBER 4 GM PACKET GT SCH ×3 (00:58→17:02)
[2023-01-14] MEDS: POLYVINYL ALCOHOL OPHT DROPS 15 ML BOTTLE EACHEYE SCH ×2 (06:16→17:02)
[2023-01-14] MEDS: OMEPRAZOLE 40 MG CAPSULE.DR GT SCH (06:16)
[2023-01-14 07:41] VITALS: TEMP 98.7
[2023-01-14] MEDS: HYDROGEN PEROXIDE 3% 118 ML BOTTLE TP SCH ×2 (08:12→19:17)
[2023-01-14] MEDS: levETIRAcetam 500 MG/5 ML LIQUID UDC GT SCH ×2 (08:34→21:24)
[2023-01-14] MEDS: ASPIRIN 81 MG TAB.CHEW GT SCH (08:34)
[2023-01-14] MEDS: DOCUSATE SODIUM 100 MG/10 ML LIQUID UDC GT SCH ×2 (08:34→21:24)
[2023-01-14] MEDS: PHENOBARBITAL 64.8 MG TABLET GT SCH ×2 (08:35→21:25)
[2023-01-14] MEDS: METOPROLOL TARTRATE 25 MG TABLET GT SCH ×2 (08:35→21:25)
[2023-01-14] MEDS: AMIODARONE 100 MG GT SCH (08:36)
[2023-01-14] MEDS: REMEDY ESSENTIAL ZINC PASTE 113 GM TP SCH (08:36)
[2023-01-14] MEDS: CHLORHEXIDINE GLUCONATE 15 ML MOUTHWASH MM SCH (08:36)
[2023-01-14] MEDS: DIAZEPAM 5 MG TABLET GT SCH ×2 (08:36→21:25)
[2023-01-14] MEDS: VITAL AF 1.2 1,000 ML LIQUID GT PRN (17:03)
[2023-01-14 20:32] VITALS: TEMP 98.7
[2023-01-14] MEDS: MULTIVIT, IRON, MIN NO. 8, FA TABLET GT SCH (21:25)
[2023-01-14] MEDS: MAGNESIUM OXIDE 400 MG TABLET GT SCH (21:25)
[2023-01-15] MEDS: NUTRISOURCE FIBER 4 GM PACKET GT SCH ×3 (01:25→16:40)
[2023-01-15] MEDS: POLYVINYL ALCOHOL OPHT DROPS 15 ML BOTTLE EACHEYE SCH ×2 (05:25→17:47)
[2023-01-15] MEDS: OMEPRAZOLE 40 MG CAPSULE.DR GT SCH (05:25)
[2023-01-15] MEDS: HYDROGEN PEROXIDE 3% 118 ML BOTTLE TP SCH ×2 (08:16→20:47)
[2023-01-15] MEDS: ASPIRIN 81 MG TAB.CHEW GT SCH (08:47)
[2023-01-15] MEDS: DOCUSATE SODIUM 100 MG/10 ML LIQUID UDC GT SCH ×2 (08:47→20:56)
[2023-01-15] MEDS: METOPROLOL TARTRATE 25 MG TABLET GT SCH ×2 (08:53→20:56)
[2023-01-15] MEDS: PHENOBARBITAL 64.8 MG TABLET GT SCH ×2 (08:53→20:56)
[2023-01-15] MEDS: levETIRAcetam 500 MG/5 ML LIQUID UDC GT SCH ×2 (08:53→20:56)
[2023-01-15] MEDS: AMIODARONE 100 MG GT SCH (08:54)
[2023-01-15] MEDS: DIAZEPAM 5 MG TABLET GT SCH ×2 (08:54→20:57)
[2023-01-15] MEDS: CHLORHEXIDINE GLUCONATE 15 ML MOUTHWASH MM SCH (08:54)
[2023-01-15] MEDS: REMEDY ESSENTIAL ZINC PASTE 113 GM TP SCH (08:54)
[2023-01-15 09:27] VITALS: TEMP 98
[2023-01-15] MEDS: MAGNESIUM OXIDE 400 MG TABLET GT SCH (20:56)
[2023-01-15] MEDS: MULTIVIT, IRON, MIN NO. 8, FA TABLET GT SCH (20:57)
[2023-01-15 23:43] VITALS: TEMP 97.7
[2023-01-16] MEDS: NUTRISOURCE FIBER 4 GM PACKET GT SCH ×3 (01:00→17:22)
[2023-01-16] MEDS: POLYVINYL ALCOHOL OPHT DROPS 15 ML BOTTLE EACHEYE SCH ×2 (05:54→17:22)
[2023-01-16] MEDS: OMEPRAZOLE 40 MG CAPSULE.DR GT SCH (05:54)
[2023-01-16] MEDS: HYDROGEN PEROXIDE 3% 118 ML BOTTLE TP SCH ×2 (08:15→19:20)
[2023-01-16] MEDS: levETIRAcetam 500 MG/5 ML LIQUID UDC GT SCH ×2 (08:42→20:44)
[2023-01-16] MEDS: ASPIRIN 81 MG TAB.CHEW GT SCH (08:42)
[2023-01-16] MEDS: DOCUSATE SODIUM 100 MG/10 ML LIQUID UDC GT SCH ×2 (08:42→20:44)
[2023-01-16] MEDS: AMIODARONE 100 MG GT SCH (08:43)
[2023-01-16] MEDS: METOPROLOL TARTRATE 25 MG TABLET GT SCH ×2 (08:43→20:45)
[2023-01-16] MEDS: REMEDY ESSENTIAL ZINC PASTE 113 GM TP SCH (08:44)
[2023-01-16] MEDS: CHLORHEXIDINE GLUCONATE 15 ML MOUTHWASH MM SCH (08:44)
[2023-01-16] MEDS: DIAZEPAM 5 MG TABLET GT SCH ×2 (08:45→20:45)
[2023-01-16] MEDS: PHENOBARBITAL 64.8 MG TABLET GT SCH ×2 (08:45→20:45)
[2023-01-16 11:15] VITALS: TEMP 97.8
[2023-01-16] MEDS: VITAL AF 1.2 1,000 ML LIQUID GT PRN (17:54)
[2023-01-16 20:08] VITALS: TEMP 99.8
[2023-01-16] MEDS: MAGNESIUM OXIDE 400 MG TABLET GT SCH (20:45)
[2023-01-16] MEDS: MULTIVIT, IRON, MIN NO. 8, FA TABLET GT SCH (20:45)
[2023-01-17] MEDS: NUTRISOURCE FIBER 4 GM PACKET GT SCH ×3 (01:00→17:00)
[2023-01-17] MEDS: OMEPRAZOLE 40 MG CAPSULE.DR GT SCH (05:56)
[2023-01-17] MEDS: POLYVINYL ALCOHOL OPHT DROPS 15 ML BOTTLE EACHEYE SCH ×2 (05:56→18:33)
[2023-01-17 08:00] VITALS: TEMP 98.7
[2023-01-17] MEDS: HYDROGEN PEROXIDE 3% 118 ML BOTTLE TP SCH ×2 (09:00→21:30)
[2023-01-17] MEDS: ASPIRIN 81 MG TAB.CHEW GT SCH (09:56)
[2023-01-17] MEDS: levETIRAcetam 500 MG/5 ML LIQUID UDC GT SCH ×2 (09:56→20:20)
[2023-01-17] MEDS: DOCUSATE SODIUM 100 MG/10 ML LIQUID UDC GT SCH ×2 (09:56→20:33)
[2023-01-17] MEDS: AMIODARONE 100 MG GT SCH (09:57)
[2023-01-17] MEDS: PHENOBARBITAL 64.8 MG TABLET GT SCH ×2 (09:57→20:21)
[2023-01-17] MEDS: DIAZEPAM 5 MG TABLET GT SCH ×2 (09:57→20:23)
[2023-01-17] MEDS: METOPROLOL TARTRATE 25 MG TABLET GT SCH ×2 (09:57→20:21)
[2023-01-17] MEDS: CHLORHEXIDINE GLUCONATE 15 ML MOUTHWASH MM SCH (09:58)
[2023-01-17] MEDS: REMEDY ESSENTIAL ZINC PASTE 113 GM TP SCH (09:58)
[2023-01-17] MEDS: MAGNESIUM OXIDE 400 MG TABLET GT SCH (20:21)
[2023-01-17] MEDS: MULTIVIT, IRON, MIN NO. 8, FA TABLET GT SCH (20:21)
[2023-01-17 22:00] VITALS: TEMP 97.8
[2023-01-18] MEDS: NUTRISOURCE FIBER 4 GM PACKET GT SCH ×3 (00:53→17:24)
[2023-01-18] MEDS: VITAL AF 1.2 1,000 ML LIQUID GT PRN (00:53)
[2023-01-18] MEDS: POLYVINYL ALCOHOL OPHT DROPS 15 ML BOTTLE EACHEYE SCH ×2 (05:47→17:25)
[2023-01-18] MEDS: OMEPRAZOLE 40 MG CAPSULE.DR GT SCH (05:47)
[2023-01-18] MEDS: HYDROGEN PEROXIDE 3% 118 ML BOTTLE TP SCH ×2 (07:45→20:28)
[2023-01-18 08:00] VITALS: TEMP 98.4
[2023-01-18] MEDS: DOCUSATE SODIUM 100 MG/10 ML LIQUID UDC GT SCH ×2 (08:46→21:00)
[2023-01-18] MEDS: ASPIRIN 81 MG TAB.CHEW GT SCH (08:46)
[2023-01-18] MEDS: PHENOBARBITAL 64.8 MG TABLET GT SCH ×2 (08:57→21:00)
[2023-01-18] MEDS: METOPROLOL TARTRATE 25 MG TABLET GT SCH ×2 (08:57→21:00)
[2023-01-18] MEDS: levETIRAcetam 500 MG/5 ML LIQUID UDC GT SCH ×2 (08:57→21:00)
[2023-01-18] MEDS: AMIODARONE 100 MG GT SCH (09:02)
[2023-01-18] MEDS: REMEDY ESSENTIAL ZINC PASTE 113 GM TP SCH (09:03)
[2023-01-18] MEDS: DIAZEPAM 5 MG TABLET GT SCH ×2 (09:03→21:00)
[2023-01-18] MEDS: CHLORHEXIDINE GLUCONATE 15 ML MOUTHWASH MM SCH (09:03)
[2023-01-18] MEDS: MAGNESIUM OXIDE 400 MG TABLET GT SCH (21:00)
[2023-01-18] MEDS: MULTIVIT, IRON, MIN NO. 8, FA TABLET GT SCH (21:00)
[2023-01-18 23:00] VITALS: TEMP 97.9
[2023-01-19] MEDS: NUTRISOURCE FIBER 4 GM PACKET GT SCH ×3 (01:41→17:38)
[2023-01-19] MEDS: POLYVINYL ALCOHOL OPHT DROPS 15 ML BOTTLE EACHEYE SCH ×2 (05:32→17:38)
[2023-01-19] MEDS: OMEPRAZOLE 40 MG CAPSULE.DR GT SCH (05:33)
[2023-01-19] MEDS: HYDROGEN PEROXIDE 3% 118 ML BOTTLE TP SCH ×2 (07:31→19:20)
[2023-01-19 08:00] VITALS: TEMP 97.8
[2023-01-19] MEDS: levETIRAcetam 500 MG/5 ML LIQUID UDC GT SCH ×2 (08:34→21:00)
[2023-01-19] MEDS: ASPIRIN 81 MG TAB.CHEW GT SCH (08:34)
[2023-01-19] MEDS: DOCUSATE SODIUM 100 MG/10 ML LIQUID UDC GT SCH ×2 (08:34→21:00)
[2023-01-19] MEDS: METOPROLOL TARTRATE 25 MG TABLET GT SCH ×2 (08:36→21:00)
[2023-01-19] MEDS: PHENOBARBITAL 64.8 MG TABLET GT SCH ×2 (08:36→21:00)
[2023-01-19] MEDS: AMIODARONE 100 MG GT SCH (08:36)
[2023-01-19] MEDS: CHLORHEXIDINE GLUCONATE 15 ML MOUTHWASH MM SCH (08:37)
[2023-01-19] MEDS: REMEDY ESSENTIAL ZINC PASTE 113 GM TP SCH (08:37)
[2023-01-19] MEDS: DIAZEPAM 5 MG TABLET GT SCH ×2 (08:37→21:00)
[2023-01-19] MEDS: VITAL AF 1.2 1,000 ML LIQUID GT PRN (10:00)
[2023-01-19 20:30] VITALS: TEMP 98.6
[2023-01-19] MEDS: COD LIVER OIL/ZINC OXIDE OINT 113 GM TUBE TP SCH (21:00)
[2023-01-19] MEDS: NYSTATIN CREAM 30 GM TUBE TP SCH (21:00)
[2023-01-19] MEDS: MULTIVIT, IRON, MIN NO. 8, FA TABLET GT SCH (21:00)
[2023-01-19] MEDS: MAGNESIUM OXIDE 400 MG TABLET GT SCH (21:00)
[2023-01-20] MEDS: NUTRISOURCE FIBER 4 GM PACKET GT SCH ×3 (00:53→17:43)
[2023-01-20] MEDS: OMEPRAZOLE 40 MG CAPSULE.DR GT SCH (05:33)
[2023-01-20] MEDS: POLYVINYL ALCOHOL OPHT DROPS 15 ML BOTTLE EACHEYE SCH ×2 (05:33→17:43)
[2023-01-20] MEDS: HYDROGEN PEROXIDE 3% 118 ML BOTTLE TP SCH ×2 (08:06→21:00)
[2023-01-20] MEDS: DOCUSATE SODIUM 100 MG/10 ML LIQUID UDC GT SCH ×2 (08:56→20:12)
[2023-01-20] MEDS: levETIRAcetam 500 MG/5 ML LIQUID UDC GT SCH ×2 (08:56→20:12)
[2023-01-20] MEDS: ASPIRIN 81 MG TAB.CHEW GT SCH (08:56)
[2023-01-20] MEDS: AMIODARONE 100 MG GT SCH (08:57)
[2023-01-20] MEDS: PHENOBARBITAL 64.8 MG TABLET GT SCH ×2 (08:57→20:12)
[2023-01-20] MEDS: DIAZEPAM 5 MG TABLET GT SCH ×2 (08:57→20:13)
[2023-01-20] MEDS: METOPROLOL TARTRATE 25 MG TABLET GT SCH ×2 (08:57→20:12)
[2023-01-20] MEDS: REMEDY ESSENTIAL ZINC PASTE 113 GM TP SCH (08:58)
[2023-01-20] MEDS: COD LIVER OIL/ZINC OXIDE OINT 113 GM TUBE TP SCH ×2 (08:58→20:13)
[2023-01-20] MEDS: NYSTATIN CREAM 30 GM TUBE TP SCH ×2 (08:58→20:13)
[2023-01-20] MEDS: CHLORHEXIDINE GLUCONATE 15 ML MOUTHWASH MM SCH (08:58)
[2023-01-20 12:00] VITALS: TEMP 97.8
[2023-01-20] MEDS: VITAL AF 1.2 1,000 ML LIQUID GT PRN (14:50)
[2023-01-20 20:00] VITALS: TEMP 98.1
[2023-01-20] MEDS: MAGNESIUM OXIDE 400 MG TABLET GT SCH (20:12)
[2023-01-20] MEDS: MULTIVIT, IRON, MIN NO. 8, FA TABLET GT SCH (20:13)
[2023-01-21] MEDS: NUTRISOURCE FIBER 4 GM PACKET GT SCH ×3 (00:16→17:02)
[2023-01-21] MEDS: POLYVINYL ALCOHOL OPHT DROPS 15 ML BOTTLE EACHEYE SCH ×2 (05:18→17:02)
[2023-01-21] MEDS: OMEPRAZOLE 40 MG CAPSULE.DR GT SCH (05:18)
[2023-01-21 07:19] LABS: BASOPHILS % (AUTO) 0.5 % (0.0-2.0); EOSINOPHILS # (AUTO) 0.1 K/uL (0.0-0.7); EOSINOPHILS % (AUTO) 2.8 % (0.0-7.0); HEMATOCRIT 30.2 % (31.2-41.9); HEMOGLOBIN 10.2 g/dL (10.9-14.3); LYMPHOCYTES # (AUTO) 1.2 K/uL (0.8-4.8); LYMPHOCYTES % (AUTO) 33.6 % (20.5-51.5); MEAN CORPUSCULAR HGB CONC 34 g/dL (32.3-35.6); MONOCYTES # (AUTO) 0.5 K/uL (0.1-1.30); NEUTROPHILS # (AUTO) 1.8 K/uL (1.8-8.9); NEUTROPHILS % (AUTO) 49.1 % (38.5-71.5); PLATELET COUNT (AUTO) 205 K/uL (179-408); RED BLOOD CELL COUNT(AUTO) 3.77 MIL/uL (3.63-4.92); RED CELL DISTRIBUTION WIDTH 17.6 % (12.3-17.7); WHITE BLOOD COUNT (AUTO) 3.6 K/uL (3.8-11.8)
[2023-01-21] MEDS: HYDROGEN PEROXIDE 3% 118 ML BOTTLE TP SCH ×2 (07:22→21:00)
[2023-01-21 07:33] LABS: DIFFERENTIAL COMMENT 1
[2023-01-21 07:42] LABS: ALBUMIN 3.3 g/dL (3.4-5.0); BILIRUBIN,TOTAL 0.2 mg/dL (0.2-1.0); CALCIUM 9.4 mg/dL (8.5-10.1); CREATININE 0.6 mg/dL (0.6-1.3); POTASSIUM 4.1 mmol/L (3.5-5.1); TOTAL PROTEIN, SERUM 8.3 g/dL (6.4-8.2)
[2023-01-21] MEDS: levETIRAcetam 500 MG/5 ML LIQUID UDC GT SCH ×2 (09:00→20:08)
[2023-01-21] MEDS: ASPIRIN 81 MG TAB.CHEW GT SCH (09:00)
[2023-01-21] MEDS: AMIODARONE 100 MG GT SCH (09:00)
[2023-01-21] MEDS: DOCUSATE SODIUM 100 MG/10 ML LIQUID UDC GT SCH ×2 (09:00→20:08)
[2023-01-21] MEDS: DIAZEPAM 5 MG TABLET GT SCH ×2 (09:00→20:10)
[2023-01-21] MEDS: REMEDY ESSENTIAL ZINC PASTE 113 GM TP SCH (09:00)
[2023-01-21] MEDS: NYSTATIN CREAM 30 GM TUBE TP SCH ×2 (09:00→20:10)
[2023-01-21] MEDS: METOPROLOL TARTRATE 25 MG TABLET GT SCH ×2 (09:00→20:08)
[2023-01-21] MEDS: CHLORHEXIDINE GLUCONATE 15 ML MOUTHWASH MM SCH (09:00)
[2023-01-21] MEDS: PHENOBARBITAL 64.8 MG TABLET GT SCH ×2 (09:00→20:09)
[2023-01-21] MEDS: COD LIVER OIL/ZINC OXIDE OINT 113 GM TUBE TP SCH ×2 (09:00→20:10)
[2023-01-21 11:25] VITALS: TEMP 97.8
[2023-01-21 20:00] VITALS: TEMP 98
[2023-01-21] MEDS: MULTIVIT, IRON, MIN NO. 8, FA TABLET GT SCH (20:09)
[2023-01-21] MEDS: MAGNESIUM OXIDE 400 MG TABLET GT SCH (20:09)
[2023-01-22] MEDS: NUTRISOURCE FIBER 4 GM PACKET GT SCH ×3 (01:12→17:18)
[2023-01-22] MEDS: OMEPRAZOLE 40 MG CAPSULE.DR GT SCH (05:14)
[2023-01-22] MEDS: POLYVINYL ALCOHOL OPHT DROPS 15 ML BOTTLE EACHEYE SCH ×2 (05:14→17:18)
[2023-01-22] MEDS: HYDROGEN PEROXIDE 3% 118 ML BOTTLE TP SCH ×2 (07:39→21:51)
[2023-01-22] MEDS: ASPIRIN 81 MG TAB.CHEW GT SCH (08:46)
[2023-01-22] MEDS: DOCUSATE SODIUM 100 MG/10 ML LIQUID UDC GT SCH ×2 (08:47→21:00)
[2023-01-22] MEDS: levETIRAcetam 500 MG/5 ML LIQUID UDC GT SCH ×2 (08:49→21:00)
[2023-01-22] MEDS: METOPROLOL TARTRATE 25 MG TABLET GT SCH ×2 (08:49→21:00)
[2023-01-22] MEDS: AMIODARONE 100 MG GT SCH (08:49)
[2023-01-22] MEDS: PHENOBARBITAL 64.8 MG TABLET GT SCH ×2 (08:49→21:00)
[2023-01-22] MEDS: CHLORHEXIDINE GLUCONATE 15 ML MOUTHWASH MM SCH (08:50)
[2023-01-22] MEDS: DIAZEPAM 5 MG TABLET GT SCH ×2 (08:50→21:00)
[2023-01-22] MEDS: REMEDY ESSENTIAL ZINC PASTE 113 GM TP SCH (08:51)
[2023-01-22] MEDS: COD LIVER OIL/ZINC OXIDE OINT 113 GM TUBE TP SCH ×2 (08:51→21:00)
[2023-01-22] MEDS: NYSTATIN CREAM 30 GM TUBE TP SCH ×2 (08:51→21:00)
[2023-01-22 09:27] VITALS: TEMP 97.6
[2023-01-22] MEDS: VITAL AF 1.2 1,000 ML LIQUID GT PRN (11:48)
[2023-01-22 20:00] VITALS: TEMP 98
[2023-01-22] MEDS: MULTIVIT, IRON, MIN NO. 8, FA TABLET GT SCH (21:00)
[2023-01-22] MEDS: MAGNESIUM OXIDE 400 MG TABLET GT SCH (21:00)
[2023-01-23] MEDS: NUTRISOURCE FIBER 4 GM PACKET GT SCH ×3 (01:49→17:00)
[2023-01-23] MEDS: POLYVINYL ALCOHOL OPHT DROPS 15 ML BOTTLE EACHEYE SCH ×2 (05:33→18:33)
[2023-01-23] MEDS: OMEPRAZOLE 40 MG CAPSULE.DR GT SCH (05:33)
[2023-01-23 07:40] VITALS: TEMP 98.7
[2023-01-23] MEDS: REMEDY ESSENTIAL ZINC PASTE 113 GM TP SCH (09:00)
[2023-01-23] MEDS: DIAZEPAM 5 MG TABLET GT SCH ×2 (09:00→21:39)
[2023-01-23] MEDS: NYSTATIN CREAM 30 GM TUBE TP SCH ×2 (09:00→21:39)
[2023-01-23] MEDS: CHLORHEXIDINE GLUCONATE 15 ML MOUTHWASH MM SCH (09:00)
[2023-01-23] MEDS: HYDROGEN PEROXIDE 3% 118 ML BOTTLE TP SCH ×2 (09:00→20:07)
[2023-01-23] MEDS: AMIODARONE 100 MG GT SCH (09:00)
[2023-01-23] MEDS: PHENOBARBITAL 64.8 MG TABLET GT SCH ×2 (09:00→21:39)
[2023-01-23] MEDS: DOCUSATE SODIUM 100 MG/10 ML LIQUID UDC GT SCH ×2 (09:00→21:38)
[2023-01-23] MEDS: COD LIVER OIL/ZINC OXIDE OINT 113 GM TUBE TP SCH ×2 (09:00→21:39)
[2023-01-23] MEDS: METOPROLOL TARTRATE 25 MG TABLET GT SCH ×2 (09:00→21:39)
[2023-01-23] MEDS: ASPIRIN 81 MG TAB.CHEW GT SCH (09:00)
[2023-01-23] MEDS: levETIRAcetam 500 MG/5 ML LIQUID UDC GT SCH ×2 (09:00→21:38)
[2023-01-23 20:00] VITALS: TEMP 97.6
[2023-01-23] MEDS: MULTIVIT, IRON, MIN NO. 8, FA TABLET GT SCH (21:39)
[2023-01-23] MEDS: MAGNESIUM OXIDE 400 MG TABLET GT SCH (21:39)
[2023-01-24] MEDS: NUTRISOURCE FIBER 4 GM PACKET GT SCH ×3 (00:32→17:18)
[2023-01-24] MEDS: OMEPRAZOLE 40 MG CAPSULE.DR GT SCH (05:24)
[2023-01-24] MEDS: POLYVINYL ALCOHOL OPHT DROPS 15 ML BOTTLE EACHEYE SCH ×2 (05:24→17:18)
[2023-01-24 08:07] VITALS: TEMP 97.7
[2023-01-24] MEDS: ASPIRIN 81 MG TAB.CHEW GT SCH (08:59)
[2023-01-24] MEDS: DOCUSATE SODIUM 100 MG/10 ML LIQUID UDC GT SCH ×2 (08:59→21:32)
[2023-01-24] MEDS: levETIRAcetam 500 MG/5 ML LIQUID UDC GT SCH ×2 (09:00→21:32)
[2023-01-24] MEDS: METOPROLOL TARTRATE 25 MG TABLET GT SCH ×2 (09:00→21:32)
[2023-01-24] MEDS: PHENOBARBITAL 64.8 MG TABLET GT SCH ×2 (09:01→21:32)
[2023-01-24] MEDS: AMIODARONE 100 MG GT SCH (09:01)
[2023-01-24] MEDS: CHLORHEXIDINE GLUCONATE 15 ML MOUTHWASH MM SCH (09:02)
[2023-01-24] MEDS: NYSTATIN CREAM 30 GM TUBE TP SCH ×2 (09:02→21:33)
[2023-01-24] MEDS: REMEDY ESSENTIAL ZINC PASTE 113 GM TP SCH (09:02)
[2023-01-24] MEDS: COD LIVER OIL/ZINC OXIDE OINT 113 GM TUBE TP SCH ×2 (09:02→21:32)
[2023-01-24] MEDS: DIAZEPAM 5 MG TABLET GT SCH ×2 (09:02→21:32)
[2023-01-24] MEDS: HYDROGEN PEROXIDE 3% 118 ML BOTTLE TP SCH ×2 (09:32→20:23)
[2023-01-24 20:00] VITALS: TEMP 98.1
[2023-01-24] MEDS: MULTIVIT, IRON, MIN NO. 8, FA TABLET GT SCH (21:32)
[2023-01-24] MEDS: MAGNESIUM OXIDE 400 MG TABLET GT SCH (21:32)
[2023-01-24] MEDS: VITAL AF 1.2 1,000 ML LIQUID GT PRN (22:46)
[2023-01-25] MEDS: NUTRISOURCE FIBER 4 GM PACKET GT SCH ×3 (01:14→17:00)
[2023-01-25] MEDS: OMEPRAZOLE 40 MG CAPSULE.DR GT SCH (05:52)
[2023-01-25] MEDS: POLYVINYL ALCOHOL OPHT DROPS 15 ML BOTTLE EACHEYE SCH ×2 (05:52→18:07)
[2023-01-25 07:56] VITALS: TEMP 97.4
[2023-01-25] MEDS: METOPROLOL TARTRATE 25 MG TABLET GT SCH ×2 (09:00→21:19)
[2023-01-25] MEDS: HYDROGEN PEROXIDE 3% 118 ML BOTTLE TP SCH ×2 (09:00→21:09)
[2023-01-25] MEDS: ASPIRIN 81 MG TAB.CHEW GT SCH (09:00)
[2023-01-25] MEDS: CHLORHEXIDINE GLUCONATE 15 ML MOUTHWASH MM SCH (09:00)
[2023-01-25] MEDS: AMIODARONE 100 MG GT SCH (09:00)
[2023-01-25] MEDS: NYSTATIN CREAM 30 GM TUBE TP SCH ×2 (09:00→21:19)
[2023-01-25] MEDS: REMEDY ESSENTIAL ZINC PASTE 113 GM TP SCH (09:00)
[2023-01-25] MEDS: DOCUSATE SODIUM 100 MG/10 ML LIQUID UDC GT SCH ×2 (09:00→21:19)
[2023-01-25] MEDS: PHENOBARBITAL 64.8 MG TABLET GT SCH ×2 (09:00→21:19)
[2023-01-25] MEDS: COD LIVER OIL/ZINC OXIDE OINT 113 GM TUBE TP SCH ×2 (09:00→21:19)
[2023-01-25] MEDS: DIAZEPAM 5 MG TABLET GT SCH ×2 (09:00→21:19)
[2023-01-25] MEDS: levETIRAcetam 500 MG/5 ML LIQUID UDC GT SCH ×2 (09:00→21:19)
[2023-01-25 20:00] VITALS: TEMP 98.1
[2023-01-25] MEDS: MULTIVIT, IRON, MIN NO. 8, FA TABLET GT SCH (21:19)
[2023-01-25] MEDS: MAGNESIUM OXIDE 400 MG TABLET GT SCH (21:19)
[2023-01-26] MEDS: NUTRISOURCE FIBER 4 GM PACKET GT SCH ×3 (01:32→17:15)
[2023-01-26] MEDS: VITAL AF 1.2 1,000 ML LIQUID GT PRN (04:04)
[2023-01-26] MEDS: OMEPRAZOLE 40 MG CAPSULE.DR GT SCH (05:47)
[2023-01-26] MEDS: POLYVINYL ALCOHOL OPHT DROPS 15 ML BOTTLE EACHEYE SCH ×2 (05:47→17:15)
[2023-01-26 07:52] VITALS: TEMP 97.3
[2023-01-26] MEDS: HYDROGEN PEROXIDE 3% 118 ML BOTTLE TP SCH ×3 (09:00→20:41)
[2023-01-26] MEDS: DOCUSATE SODIUM 100 MG/10 ML LIQUID UDC GT SCH ×2 (09:36→21:47)
[2023-01-26] MEDS: ASPIRIN 81 MG TAB.CHEW GT SCH (09:36)
[2023-01-26] MEDS: levETIRAcetam 500 MG/5 ML LIQUID UDC GT SCH ×2 (09:37→21:47)
[2023-01-26] MEDS: METOPROLOL TARTRATE 25 MG TABLET GT SCH ×2 (09:40→21:48)
[2023-01-26] MEDS: AMIODARONE 100 MG GT SCH (09:40)
[2023-01-26] MEDS: PHENOBARBITAL 64.8 MG TABLET GT SCH ×2 (09:40→21:48)
[2023-01-26] MEDS: CHLORHEXIDINE GLUCONATE 15 ML MOUTHWASH MM SCH (09:40)
[2023-01-26] MEDS: COD LIVER OIL/ZINC OXIDE OINT 113 GM TUBE TP SCH ×2 (09:40→21:48)
[2023-01-26] MEDS: DIAZEPAM 5 MG TABLET GT SCH ×2 (09:40→21:48)
[2023-01-26] MEDS: REMEDY ESSENTIAL ZINC PASTE 113 GM TP SCH (09:41)
[2023-01-26] MEDS: NYSTATIN CREAM 30 GM TUBE TP SCH ×2 (09:41→21:48)
[2023-01-26 21:31] VITALS: TEMP 99
[2023-01-26] MEDS: MULTIVIT, IRON, MIN NO. 8, FA TABLET GT SCH (21:48)
[2023-01-26] MEDS: MAGNESIUM OXIDE 400 MG TABLET GT SCH (21:48)
[2023-01-27] MEDS: NUTRISOURCE FIBER 4 GM PACKET GT SCH ×3 (01:10→17:00)
[2023-01-27] MEDS: OMEPRAZOLE 40 MG CAPSULE.DR GT SCH (05:16)
[2023-01-27] MEDS: POLYVINYL ALCOHOL OPHT DROPS 15 ML BOTTLE EACHEYE SCH ×2 (05:16→17:00)
[2023-01-27 08:00] VITALS: TEMP 98.2
[2023-01-27] MEDS: levETIRAcetam 500 MG/5 ML LIQUID UDC GT SCH ×2 (08:13→21:11)
[2023-01-27] MEDS: ASPIRIN 81 MG TAB.CHEW GT SCH (08:13)
[2023-01-27] MEDS: DOCUSATE SODIUM 100 MG/10 ML LIQUID UDC GT SCH ×2 (08:13→21:11)
[2023-01-27] MEDS: METOPROLOL TARTRATE 25 MG TABLET GT SCH ×2 (08:14→21:11)
[2023-01-27] MEDS: PHENOBARBITAL 64.8 MG TABLET GT SCH ×2 (08:14→21:11)
[2023-01-27] MEDS: DIAZEPAM 5 MG TABLET GT SCH ×2 (08:14→21:11)
[2023-01-27] MEDS: NYSTATIN CREAM 30 GM TUBE TP SCH ×2 (08:14→21:12)
[2023-01-27] MEDS: COD LIVER OIL/ZINC OXIDE OINT 113 GM TUBE TP SCH ×2 (08:14→21:11)
[2023-01-27] MEDS: AMIODARONE 100 MG GT SCH (08:14)
[2023-01-27] MEDS: CHLORHEXIDINE GLUCONATE 15 ML MOUTHWASH MM SCH (08:14)
[2023-01-27] MEDS: REMEDY ESSENTIAL ZINC PASTE 113 GM TP SCH (08:14)
[2023-01-27] MEDS: HYDROGEN PEROXIDE 3% 118 ML BOTTLE TP SCH ×2 (09:27→21:05)
[2023-01-27] MEDS: VITAL AF 1.2 1,000 ML LIQUID GT PRN (13:14)
[2023-01-27 20:00] VITALS: TEMP 97.9
[2023-01-27] MEDS: MULTIVIT, IRON, MIN NO. 8, FA TABLET GT SCH (21:11)
[2023-01-27] MEDS: MAGNESIUM OXIDE 400 MG TABLET GT SCH (21:11)
[2023-01-28] MEDS: NUTRISOURCE FIBER 4 GM PACKET GT SCH ×3 (01:32→18:00)
[2023-01-28] MEDS: POLYVINYL ALCOHOL OPHT DROPS 15 ML BOTTLE EACHEYE SCH ×2 (05:32→18:05)
[2023-01-28] MEDS: OMEPRAZOLE 40 MG CAPSULE.DR GT SCH (05:32)
[2023-01-28 07:48] VITALS: TEMP 98.5
[2023-01-28] MEDS: HYDROGEN PEROXIDE 3% 118 ML BOTTLE TP SCH ×2 (08:08→19:32)
[2023-01-28] MEDS: ASPIRIN 81 MG TAB.CHEW GT SCH (09:37)
[2023-01-28] MEDS: DOCUSATE SODIUM 100 MG/10 ML LIQUID UDC GT SCH ×2 (09:38→21:49)
[2023-01-28] MEDS: levETIRAcetam 500 MG/5 ML LIQUID UDC GT SCH ×2 (09:38→21:49)
[2023-01-28] MEDS: COD LIVER OIL/ZINC OXIDE OINT 113 GM TUBE TP SCH ×2 (09:39→21:50)
[2023-01-28] MEDS: DIAZEPAM 5 MG TABLET GT SCH ×2 (09:39→21:50)
[2023-01-28] MEDS: METOPROLOL TARTRATE 25 MG TABLET GT SCH ×2 (09:39→21:00)
[2023-01-28] MEDS: CHLORHEXIDINE GLUCONATE 15 ML MOUTHWASH MM SCH (09:39)
[2023-01-28] MEDS: AMIODARONE 100 MG GT SCH (09:39)
[2023-01-28] MEDS: PHENOBARBITAL 64.8 MG TABLET GT SCH ×2 (09:39→21:50)
[2023-01-28] MEDS: NYSTATIN CREAM 30 GM TUBE TP SCH ×2 (09:40→21:50)
[2023-01-28] MEDS: REMEDY ESSENTIAL ZINC PASTE 113 GM TP SCH (09:40)
[2023-01-28] MEDS: VITAL AF 1.2 1,000 ML LIQUID GT PRN (14:45)
[2023-01-28 20:00] VITALS: TEMP 97.5
[2023-01-28] MEDS: MULTIVIT, IRON, MIN NO. 8, FA TABLET GT SCH (21:50)
[2023-01-28] MEDS: MAGNESIUM OXIDE 400 MG TABLET GT SCH (21:50)
[2023-01-29] MEDS: NUTRISOURCE FIBER 4 GM PACKET GT SCH ×3 (01:13→17:21)
[2023-01-29] MEDS: POLYVINYL ALCOHOL OPHT DROPS 15 ML BOTTLE EACHEYE SCH ×2 (05:09→17:22)
[2023-01-29] MEDS: OMEPRAZOLE 40 MG CAPSULE.DR GT SCH (05:09)
[2023-01-29 07:51] VITALS: TEMP 97.8
[2023-01-29] MEDS: HYDROGEN PEROXIDE 3% 118 ML BOTTLE TP SCH ×2 (09:00→21:00)
[2023-01-29] MEDS: DIAZEPAM 5 MG TABLET GT SCH ×2 (09:49→20:38)
[2023-01-29] MEDS: PHENOBARBITAL 64.8 MG TABLET GT SCH ×2 (09:49→20:37)
[2023-01-29] MEDS: DOCUSATE SODIUM 100 MG/10 ML LIQUID UDC GT SCH ×2 (09:56→20:35)
[2023-01-29] MEDS: ASPIRIN 81 MG TAB.CHEW GT SCH (09:56)
[2023-01-29] MEDS: levETIRAcetam 500 MG/5 ML LIQUID UDC GT SCH ×2 (09:56→20:35)
[2023-01-29] MEDS: AMIODARONE 100 MG GT SCH (09:57)
[2023-01-29] MEDS: CHLORHEXIDINE GLUCONATE 15 ML MOUTHWASH MM SCH (09:57)
[2023-01-29] MEDS: METOPROLOL TARTRATE 25 MG TABLET GT SCH ×2 (09:57→20:35)
[2023-01-29] MEDS: REMEDY ESSENTIAL ZINC PASTE 113 GM TP SCH (09:58)
[2023-01-29] MEDS: MAGNESIUM OXIDE 400 MG TABLET GT SCH (20:37)
[2023-01-29] MEDS: MULTIVIT, IRON, MIN NO. 8, FA TABLET GT SCH (20:37)
[2023-01-29 21:26] VITALS: TEMP 99
[2023-01-30] MEDS: NUTRISOURCE FIBER 4 GM PACKET GT SCH ×3 (00:36→17:05)
[2023-01-30] MEDS: VITAL AF 1.2 1,000 ML LIQUID GT PRN (00:37)
[2023-01-30] MEDS: POLYVINYL ALCOHOL OPHT DROPS 15 ML BOTTLE EACHEYE SCH ×2 (06:14→17:05)
[2023-01-30] MEDS: OMEPRAZOLE 40 MG CAPSULE.DR GT SCH (06:14)
[2023-01-30 07:00] VITALS: O2SAT 99
[2023-01-30 07:56] VITALS: TEMP 98.4
[2023-01-30] MEDS: ASPIRIN 81 MG TAB.CHEW GT SCH (08:06)
[2023-01-30] MEDS: DIAZEPAM 5 MG TABLET GT SCH ×2 (08:06→20:41)
[2023-01-30] MEDS: PHENOBARBITAL 64.8 MG TABLET GT SCH ×2 (08:06→20:41)
[2023-01-30] MEDS: DOCUSATE SODIUM 100 MG/10 ML LIQUID UDC GT SCH ×2 (08:07→20:41)
[2023-01-30] MEDS: levETIRAcetam 500 MG/5 ML LIQUID UDC GT SCH ×2 (08:07→20:41)
[2023-01-30] MEDS: METOPROLOL TARTRATE 25 MG TABLET GT SCH ×2 (08:08→20:41)
[2023-01-30] MEDS: AMIODARONE 100 MG GT SCH (08:08)
[2023-01-30] MEDS: REMEDY ESSENTIAL ZINC PASTE 113 GM TP SCH (08:09)
[2023-01-30] MEDS: CHLORHEXIDINE GLUCONATE 15 ML MOUTHWASH MM SCH (08:09)
[2023-01-30] MEDS: HYDROGEN PEROXIDE 3% 118 ML BOTTLE TP SCH ×2 (08:10→20:24)
[2023-01-30 20:39] VITALS: TEMP 97.5
[2023-01-30] MEDS: MULTIVIT, IRON, MIN NO. 8, FA TABLET GT SCH (20:41)
[2023-01-30] MEDS: MAGNESIUM OXIDE 400 MG TABLET GT SCH (20:41)
[2023-01-31] MEDS: NUTRISOURCE FIBER 4 GM PACKET GT SCH ×3 (01:00→17:12)
[2023-01-31] MEDS: VITAL AF 1.2 1,000 ML LIQUID GT PRN (04:40)
[2023-01-31] MEDS: OMEPRAZOLE 40 MG CAPSULE.DR GT SCH (05:41)
[2023-01-31] MEDS: POLYVINYL ALCOHOL OPHT DROPS 15 ML BOTTLE EACHEYE SCH ×2 (05:41→17:12)
[2023-01-31] MEDS: HYDROGEN PEROXIDE 3% 118 ML BOTTLE TP SCH ×2 (07:09→19:17)
[2023-01-31] MEDS ORDERED: COD LIVER OIL/ZINC OXIDE OINT 113 GM TUBE TP PRN (07:30)
[2023-01-31 08:00] VITALS: TEMP 98.4
[2023-01-31] MEDS: ASPIRIN 81 MG TAB.CHEW GT SCH (09:32)
[2023-01-31] MEDS: DOCUSATE SODIUM 100 MG/10 ML LIQUID UDC GT SCH ×2 (09:32→20:45)
[2023-01-31] MEDS: DIAZEPAM 5 MG TABLET GT SCH ×2 (09:32→20:47)
[2023-01-31] MEDS: COD LIVER OIL/ZINC OXIDE OINT 113 GM TUBE TP SCH ×2 (09:32→20:47)
[2023-01-31] MEDS: PHENOBARBITAL 64.8 MG TABLET GT SCH ×2 (09:32→20:47)
[2023-01-31] MEDS: levETIRAcetam 500 MG/5 ML LIQUID UDC GT SCH ×2 (09:32→20:45)
[2023-01-31] MEDS: AMIODARONE 100 MG GT SCH (09:32)
[2023-01-31] MEDS: METOPROLOL TARTRATE 25 MG TABLET GT SCH ×2 (09:32→20:47)
[2023-01-31] MEDS: CHLORHEXIDINE GLUCONATE 15 ML MOUTHWASH MM SCH (09:32)
[2023-01-31] MEDS: REMEDY ESSENTIAL ZINC PASTE 113 GM TP SCH (09:33)
[2023-01-31 20:05] VITALS: TEMP 98.7
[2023-01-31] MEDS: MAGNESIUM OXIDE 400 MG TABLET GT SCH (20:47)
[2023-01-31] MEDS: MULTIVIT, IRON, MIN NO. 8, FA TABLET GT SCH (20:47)
[2023-02-01] MEDS: NUTRISOURCE FIBER 4 GM PACKET GT SCH ×3 (01:00→17:40)
[2023-02-01] MEDS: POLYVINYL ALCOHOL OPHT DROPS 15 ML BOTTLE EACHEYE SCH ×2 (05:37→17:40)
[2023-02-01] MEDS: OMEPRAZOLE 40 MG CAPSULE.DR GT SCH (05:37)
[2023-02-01 07:31] VITALS: TEMP 97.4
[2023-02-01] MEDS: HYDROGEN PEROXIDE 3% 118 ML BOTTLE TP SCH ×2 (07:50→19:07)
[2023-02-01] MEDS: METOPROLOL TARTRATE 25 MG TABLET GT SCH ×2 (09:00→21:00)
[2023-02-01] MEDS: DOCUSATE SODIUM 100 MG/10 ML LIQUID UDC GT SCH ×2 (09:51→21:42)
[2023-02-01] MEDS: ASPIRIN 81 MG TAB.CHEW GT SCH (09:51)
[2023-02-01] MEDS: levETIRAcetam 500 MG/5 ML LIQUID UDC GT SCH ×2 (09:51→21:41)
[2023-02-01] MEDS: PHENOBARBITAL 64.8 MG TABLET GT SCH ×2 (09:52→21:49)
[2023-02-01] MEDS: REMEDY ESSENTIAL ZINC PASTE 113 GM TP SCH (09:53)
[2023-02-01] MEDS: DIAZEPAM 5 MG TABLET GT SCH ×2 (09:53→21:49)
[2023-02-01] MEDS: CHLORHEXIDINE GLUCONATE 15 ML MOUTHWASH MM SCH (09:53)
[2023-02-01] MEDS: AMIODARONE 100 MG GT SCH (09:53)
[2023-02-01] MEDS: COD LIVER OIL/ZINC OXIDE OINT 113 GM TUBE TP SCH ×2 (09:53→21:44)
[2023-02-01 20:29] VITALS: TEMP 97.2
[2023-02-01] MEDS: MAGNESIUM OXIDE 400 MG TABLET GT SCH (21:44)
[2023-02-01] MEDS: MULTIVIT, IRON, MIN NO. 8, FA TABLET GT SCH (21:44)
[2023-02-02] MEDS: NUTRISOURCE FIBER 4 GM PACKET GT SCH ×3 (01:37→17:48)
[2023-02-02] MEDS: OMEPRAZOLE 40 MG CAPSULE.DR GT SCH (05:56)
[2023-02-02] MEDS: POLYVINYL ALCOHOL OPHT DROPS 15 ML BOTTLE EACHEYE SCH ×2 (05:56→17:49)
[2023-02-02 07:55] VITALS: TEMP 97.6
[2023-02-02] MEDS: METOPROLOL TARTRATE 25 MG TABLET GT SCH ×2 (09:00→21:33)
[2023-02-02] MEDS: levETIRAcetam 500 MG/5 ML LIQUID UDC GT SCH ×2 (09:18→21:32)
[2023-02-02] MEDS: DOCUSATE SODIUM 100 MG/10 ML LIQUID UDC GT SCH ×2 (09:18→21:34)
[2023-02-02] MEDS: ASPIRIN 81 MG TAB.CHEW GT SCH (09:18)
[2023-02-02] MEDS: COD LIVER OIL/ZINC OXIDE OINT 113 GM TUBE TP SCH ×2 (09:19→21:33)
[2023-02-02] MEDS: PHENOBARBITAL 64.8 MG TABLET GT SCH ×2 (09:19→21:43)
[2023-02-02] MEDS: CHLORHEXIDINE GLUCONATE 15 ML MOUTHWASH MM SCH (09:19)
[2023-02-02] MEDS: AMIODARONE 100 MG GT SCH (09:19)
[2023-02-02] MEDS: DIAZEPAM 5 MG TABLET GT SCH ×2 (09:19→21:42)
[2023-02-02] MEDS: REMEDY ESSENTIAL ZINC PASTE 113 GM TP SCH (09:19)
[2023-02-02] MEDS: HYDROGEN PEROXIDE 3% 118 ML BOTTLE TP SCH ×2 (10:40→21:33)
[2023-02-02] MEDS: VITAL AF 1.2 1,000 ML LIQUID GT PRN (17:50)
[2023-02-02 20:02] VITALS: TEMP 98.8
[2023-02-02] MEDS: MULTIVIT, IRON, MIN NO. 8, FA TABLET GT SCH (21:33)
[2023-02-02] MEDS: MAGNESIUM OXIDE 400 MG TABLET GT SCH (21:33)
[2023-02-03] MEDS: NUTRISOURCE FIBER 4 GM PACKET GT SCH ×3 (00:38→17:25)
[2023-02-03] MEDS: POLYVINYL ALCOHOL OPHT DROPS 15 ML BOTTLE EACHEYE SCH ×2 (05:01→17:25)
[2023-02-03] MEDS: OMEPRAZOLE 40 MG CAPSULE.DR GT SCH (05:01)
[2023-02-03] MEDS: HYDROGEN PEROXIDE 3% 118 ML BOTTLE TP SCH ×2 (07:24→21:00)
[2023-02-03 08:15] VITALS: TEMP 97.7
[2023-02-03] MEDS: ASPIRIN 81 MG TAB.CHEW GT SCH (08:25)
[2023-02-03] MEDS: DOCUSATE SODIUM 100 MG/10 ML LIQUID UDC GT SCH ×2 (08:25→20:22)
[2023-02-03] MEDS: levETIRAcetam 500 MG/5 ML LIQUID UDC GT SCH ×2 (08:27→20:22)
[2023-02-03] MEDS: PHENOBARBITAL 64.8 MG TABLET GT SCH ×2 (08:28→20:25)
[2023-02-03] MEDS: AMIODARONE 100 MG GT SCH (08:28)
[2023-02-03] MEDS: METOPROLOL TARTRATE 25 MG TABLET GT SCH ×2 (08:28→20:24)
[2023-02-03] MEDS: COD LIVER OIL/ZINC OXIDE OINT 113 GM TUBE TP SCH ×2 (08:29→20:33)
[2023-02-03] MEDS: REMEDY ESSENTIAL ZINC PASTE 113 GM TP SCH (08:29)
[2023-02-03] MEDS: DIAZEPAM 5 MG TABLET GT SCH ×2 (08:29→20:33)
[2023-02-03] MEDS: CHLORHEXIDINE GLUCONATE 15 ML MOUTHWASH MM SCH (08:29)
[2023-02-03] MEDS: MULTIVIT, IRON, MIN NO. 8, FA TABLET GT SCH (20:30)
[2023-02-03] MEDS: MAGNESIUM OXIDE 400 MG TABLET GT SCH (20:30)
[2023-02-03 20:39] VITALS: TEMP 98.8
[2023-02-04] MEDS: NUTRISOURCE FIBER 4 GM PACKET GT SCH ×3 (01:48→17:26)
[2023-02-04] MEDS: VITAL AF 1.2 1,000 ML LIQUID GT PRN (03:00)
[2023-02-04] MEDS: OMEPRAZOLE 40 MG CAPSULE.DR GT SCH (05:45)
[2023-02-04] MEDS: POLYVINYL ALCOHOL OPHT DROPS 15 ML BOTTLE EACHEYE SCH ×2 (05:45→17:26)
[2023-02-04 07:39] VITALS: TEMP 97.7
[2023-02-04] MEDS: HYDROGEN PEROXIDE 3% 118 ML BOTTLE TP SCH ×2 (08:20→19:11)
[2023-02-04] MEDS: ASPIRIN 81 MG TAB.CHEW GT SCH (09:47)
[2023-02-04] MEDS: DOCUSATE SODIUM 100 MG/10 ML LIQUID UDC GT SCH ×2 (09:47→20:11)
[2023-02-04] MEDS: levETIRAcetam 500 MG/5 ML LIQUID UDC GT SCH ×2 (09:48→20:11)
[2023-02-04] MEDS: METOPROLOL TARTRATE 25 MG TABLET GT SCH ×2 (09:52→20:18)
[2023-02-04] MEDS: AMIODARONE 100 MG GT SCH (09:54)
[2023-02-04] MEDS: REMEDY ESSENTIAL ZINC PASTE 113 GM TP SCH (09:55)
[2023-02-04] MEDS: COD LIVER OIL/ZINC OXIDE OINT 113 GM TUBE TP SCH ×2 (09:55→20:14)
[2023-02-04] MEDS: CHLORHEXIDINE GLUCONATE 15 ML MOUTHWASH MM SCH (09:55)
[2023-02-04] MEDS: DIAZEPAM 5 MG TABLET GT SCH ×2 (09:59→20:18)
[2023-02-04] MEDS: PHENOBARBITAL 64.8 MG TABLET GT SCH ×2 (09:59→20:18)
[2023-02-04] MEDS: MULTIVIT, IRON, MIN NO. 8, FA TABLET GT SCH (20:18)
[2023-02-04] MEDS: MAGNESIUM OXIDE 400 MG TABLET GT SCH (20:18)
[2023-02-04 21:50] VITALS: TEMP 97.8
[2023-02-05] MEDS: NUTRISOURCE FIBER 4 GM PACKET GT SCH ×3 (01:00→17:00)
[2023-02-05] MEDS: POLYVINYL ALCOHOL OPHT DROPS 15 ML BOTTLE EACHEYE SCH ×2 (05:55→18:02)
[2023-02-05] MEDS: OMEPRAZOLE 40 MG CAPSULE.DR GT SCH (05:55)
[2023-02-05] MEDS: DOCUSATE SODIUM 100 MG/10 ML LIQUID UDC GT SCH ×2 (08:50→20:22)
[2023-02-05] MEDS: ASPIRIN 81 MG TAB.CHEW GT SCH (08:50)
[2023-02-05] MEDS: AMIODARONE 100 MG GT SCH (08:51)
[2023-02-05] MEDS: PHENOBARBITAL 64.8 MG TABLET GT SCH ×2 (08:51→20:25)
[2023-02-05] MEDS: METOPROLOL TARTRATE 25 MG TABLET GT SCH ×2 (08:51→21:00)
[2023-02-05] MEDS: levETIRAcetam 500 MG/5 ML LIQUID UDC GT SCH ×2 (08:51→20:23)
[2023-02-05] MEDS: DIAZEPAM 5 MG TABLET GT SCH ×2 (08:52→20:26)
[2023-02-05] MEDS: COD LIVER OIL/ZINC OXIDE OINT 113 GM TUBE TP SCH ×2 (08:52→20:26)
[2023-02-05] MEDS: CHLORHEXIDINE GLUCONATE 15 ML MOUTHWASH MM SCH (08:52)
[2023-02-05] MEDS: REMEDY ESSENTIAL ZINC PASTE 113 GM TP SCH (09:00)
[2023-02-05] MEDS: HYDROGEN PEROXIDE 3% 118 ML BOTTLE TP SCH ×2 (09:00→20:36)
[2023-02-05 09:19] VITALS: TEMP 98.1
[2023-02-05 20:00] VITALS: TEMP 98.6
[2023-02-05] MEDS: MAGNESIUM OXIDE 400 MG TABLET GT SCH (20:25)
[2023-02-05] MEDS: MULTIVIT, IRON, MIN NO. 8, FA TABLET GT SCH (20:26)
[2023-02-06] MEDS: NUTRISOURCE FIBER 4 GM PACKET GT SCH ×3 (01:20→17:07)
[2023-02-06] MEDS: POLYVINYL ALCOHOL OPHT DROPS 15 ML BOTTLE EACHEYE SCH ×2 (06:10→17:08)
[2023-02-06] MEDS: OMEPRAZOLE 40 MG CAPSULE.DR GT SCH (06:10)
[2023-02-06 08:00] VITALS: TEMP 98
[2023-02-06] MEDS: levETIRAcetam 500 MG/5 ML LIQUID UDC GT SCH ×2 (08:26→20:19)
[2023-02-06] MEDS: DOCUSATE SODIUM 100 MG/10 ML LIQUID UDC GT SCH ×2 (08:26→20:18)
[2023-02-06] MEDS: ASPIRIN 81 MG TAB.CHEW GT SCH (08:26)
[2023-02-06] MEDS: METOPROLOL TARTRATE 25 MG TABLET GT SCH ×2 (08:27→20:29)
[2023-02-06] MEDS: COD LIVER OIL/ZINC OXIDE OINT 113 GM TUBE TP SCH ×2 (08:27→20:33)
[2023-02-06] MEDS: CHLORHEXIDINE GLUCONATE 15 ML MOUTHWASH MM SCH (08:27)
[2023-02-06] MEDS: AMIODARONE 100 MG GT SCH (08:27)
[2023-02-06] MEDS: HYDROGEN PEROXIDE 3% 118 ML BOTTLE TP SCH ×2 (08:28→19:16)
[2023-02-06] MEDS: DIAZEPAM 5 MG TABLET GT SCH ×2 (08:31→20:33)
[2023-02-06] MEDS: PHENOBARBITAL 64.8 MG TABLET GT SCH ×2 (08:31→20:29)
[2023-02-06] MEDS: REMEDY ESSENTIAL ZINC PASTE 113 GM TP SCH (09:26)
[2023-02-06 20:07] VITALS: TEMP 97.5
[2023-02-06] MEDS: MAGNESIUM OXIDE 400 MG TABLET GT SCH (20:29)
[2023-02-06] MEDS: MULTIVIT, IRON, MIN NO. 8, FA TABLET GT SCH (20:32)
[2023-02-07] MEDS: NUTRISOURCE FIBER 4 GM PACKET GT SCH ×3 (01:08→17:34)
[2023-02-07] MEDS: VITAL AF 1.2 1,000 ML LIQUID GT PRN (01:08)
[2023-02-07] MEDS: OMEPRAZOLE 40 MG CAPSULE.DR GT SCH (05:44)
[2023-02-07] MEDS: POLYVINYL ALCOHOL OPHT DROPS 15 ML BOTTLE EACHEYE SCH ×2 (05:44→17:35)
[2023-02-07] MEDS: HYDROGEN PEROXIDE 3% 118 ML BOTTLE TP SCH ×2 (07:57→19:17)
[2023-02-07 08:00] VITALS: TEMP 97.2
[2023-02-07] MEDS: ASPIRIN 81 MG TAB.CHEW GT SCH (09:08)
[2023-02-07] MEDS: DOCUSATE SODIUM 100 MG/10 ML LIQUID UDC GT SCH ×2 (09:08→20:10)
[2023-02-07] MEDS: levETIRAcetam 500 MG/5 ML LIQUID UDC GT SCH ×2 (09:09→20:10)
[2023-02-07] MEDS: PHENOBARBITAL 64.8 MG TABLET GT SCH ×2 (09:11→20:12)
[2023-02-07] MEDS: AMIODARONE 100 MG GT SCH (09:12)
[2023-02-07] MEDS: CHLORHEXIDINE GLUCONATE 15 ML MOUTHWASH MM SCH (09:13)
[2023-02-07] MEDS: DIAZEPAM 5 MG TABLET GT SCH ×2 (09:13→20:15)
[2023-02-07] MEDS: REMEDY ESSENTIAL ZINC PASTE 113 GM TP SCH (09:14)
[2023-02-07] MEDS: COD LIVER OIL/ZINC OXIDE OINT 113 GM TUBE TP SCH ×2 (09:14→20:15)
[2023-02-07] MEDS: METOPROLOL TARTRATE 25 MG TABLET GT SCH ×2 (09:17→20:12)
[2023-02-07 20:07] VITALS: TEMP 97.8
[2023-02-07] MEDS: MAGNESIUM OXIDE 400 MG TABLET GT SCH (20:12)
[2023-02-07] MEDS: MULTIVIT, IRON, MIN NO. 8, FA TABLET GT SCH (20:13)
[2023-02-08] MEDS: NUTRISOURCE FIBER 4 GM PACKET GT SCH ×3 (01:00→17:39)
[2023-02-08] MEDS: VITAL AF 1.2 1,000 ML LIQUID GT PRN (04:00)
[2023-02-08] MEDS: POLYVINYL ALCOHOL OPHT DROPS 15 ML BOTTLE EACHEYE SCH ×2 (05:28→17:40)
[2023-02-08] MEDS: OMEPRAZOLE 40 MG CAPSULE.DR GT SCH (05:28)
[2023-02-08] MEDS: HYDROGEN PEROXIDE 3% 118 ML BOTTLE TP SCH (07:32)
[2023-02-08 07:33] VITALS: TEMP 97.3
[2023-02-08] MEDS: METOPROLOL TARTRATE 25 MG TABLET GT SCH ×2 (09:00→21:00)
[2023-02-08] MEDS: ASPIRIN 81 MG TAB.CHEW GT SCH (09:39)
[2023-02-08] MEDS: DOCUSATE SODIUM 100 MG/10 ML LIQUID UDC GT SCH ×2 (09:40→21:00)
[2023-02-08] MEDS: levETIRAcetam 500 MG/5 ML LIQUID UDC GT SCH ×2 (09:40→21:00)
[2023-02-08] MEDS: AMIODARONE 100 MG GT SCH (09:51)
[2023-02-08] MEDS: PHENOBARBITAL 64.8 MG TABLET GT SCH ×2 (09:51→21:00)
[2023-02-08] MEDS: DIAZEPAM 5 MG TABLET GT SCH ×2 (09:52→21:00)
[2023-02-08] MEDS: REMEDY ESSENTIAL ZINC PASTE 113 GM TP SCH (09:52)
[2023-02-08] MEDS: CHLORHEXIDINE GLUCONATE 15 ML MOUTHWASH MM SCH (09:52)
[2023-02-08] MEDS: COD LIVER OIL/ZINC OXIDE OINT 113 GM TUBE TP SCH ×2 (09:52→21:00)
[2023-02-08 20:13] VITALS: TEMP 97.1
[2023-02-08] MEDS: MAGNESIUM OXIDE 400 MG TABLET GT SCH (21:00)
[2023-02-08] MEDS: MULTIVIT, IRON, MIN NO. 8, FA TABLET GT SCH (21:00)
[2023-02-09] MEDS: HYDROGEN PEROXIDE 3% 118 ML BOTTLE TP SCH ×3 (00:58→19:17)
[2023-02-09] MEDS: NUTRISOURCE FIBER 4 GM PACKET GT SCH ×3 (01:32→17:41)
[2023-02-09] MEDS: OMEPRAZOLE 40 MG CAPSULE.DR GT SCH (05:47)
[2023-02-09] MEDS: POLYVINYL ALCOHOL OPHT DROPS 15 ML BOTTLE EACHEYE SCH ×2 (05:47→17:41)
[2023-02-09 07:50] VITALS: TEMP 97.7
[2023-02-09] MEDS: DOCUSATE SODIUM 100 MG/10 ML LIQUID UDC GT SCH ×2 (08:36→20:32)
[2023-02-09] MEDS: ASPIRIN 81 MG TAB.CHEW GT SCH (08:36)
[2023-02-09] MEDS: levETIRAcetam 500 MG/5 ML LIQUID UDC GT SCH ×2 (08:36→20:32)
[2023-02-09] MEDS: METOPROLOL TARTRATE 25 MG TABLET GT SCH ×2 (08:36→20:33)
[2023-02-09] MEDS: AMIODARONE 100 MG GT SCH (08:37)
[2023-02-09] MEDS: REMEDY ESSENTIAL ZINC PASTE 113 GM TP SCH (08:37)
[2023-02-09] MEDS: PHENOBARBITAL 64.8 MG TABLET GT SCH ×2 (08:37→21:48)
[2023-02-09] MEDS: DIAZEPAM 5 MG TABLET GT SCH ×2 (08:37→20:34)
[2023-02-09] MEDS: COD LIVER OIL/ZINC OXIDE OINT 113 GM TUBE TP SCH ×2 (08:37→20:34)
[2023-02-09] MEDS: CHLORHEXIDINE GLUCONATE 15 ML MOUTHWASH MM SCH (08:37)
[2023-02-09] MEDS: VITAL AF 1.2 1,000 ML LIQUID GT PRN (12:58)
[2023-02-09 20:08] VITALS: TEMP 98.4
[2023-02-09] MEDS: MULTIVIT, IRON, MIN NO. 8, FA TABLET GT SCH (20:33)
[2023-02-09] MEDS: MAGNESIUM OXIDE 400 MG TABLET GT SCH (20:33)
[2023-02-10] MEDS: NUTRISOURCE FIBER 4 GM PACKET GT SCH ×3 (01:00→17:05)
[2023-02-10] MEDS: OMEPRAZOLE 40 MG CAPSULE.DR GT SCH (05:16)
[2023-02-10] MEDS: POLYVINYL ALCOHOL OPHT DROPS 15 ML BOTTLE EACHEYE SCH ×2 (05:16→17:05)
[2023-02-10 07:46] VITALS: TEMP 98.6
[2023-02-10] MEDS: levETIRAcetam 500 MG/5 ML LIQUID UDC GT SCH ×2 (08:58→21:44)
[2023-02-10] MEDS: ASPIRIN 81 MG TAB.CHEW GT SCH (08:58)
[2023-02-10] MEDS: DOCUSATE SODIUM 100 MG/10 ML LIQUID UDC GT SCH ×2 (08:58→21:43)
[2023-02-10] MEDS: COD LIVER OIL/ZINC OXIDE OINT 113 GM TUBE TP SCH ×2 (08:59→21:47)
[2023-02-10] MEDS: AMIODARONE 100 MG GT SCH (08:59)
[2023-02-10] MEDS: DIAZEPAM 5 MG TABLET GT SCH ×2 (08:59→21:47)
[2023-02-10] MEDS: METOPROLOL TARTRATE 25 MG TABLET GT SCH ×2 (08:59→21:00)
[2023-02-10] MEDS: REMEDY ESSENTIAL ZINC PASTE 113 GM TP SCH (08:59)
[2023-02-10] MEDS: CHLORHEXIDINE GLUCONATE 15 ML MOUTHWASH MM SCH (08:59)
[2023-02-10] MEDS: PHENOBARBITAL 64.8 MG TABLET GT SCH ×2 (08:59→21:47)
[2023-02-10] MEDS: HYDROGEN PEROXIDE 3% 118 ML BOTTLE TP SCH ×2 (09:00→19:17)
[2023-02-10] MEDS: VITAL AF 1.2 1,000 ML LIQUID GT PRN (17:33)
[2023-02-10 20:00] VITALS: TEMP 97.6
[2023-02-10] MEDS: MAGNESIUM OXIDE 400 MG TABLET GT SCH (21:47)
[2023-02-10] MEDS: MULTIVIT, IRON, MIN NO. 8, FA TABLET GT SCH (21:47)
[2023-02-11] MEDS: NUTRISOURCE FIBER 4 GM PACKET GT SCH ×3 (01:00→17:19)
[2023-02-11] MEDS: POLYVINYL ALCOHOL OPHT DROPS 15 ML BOTTLE EACHEYE SCH ×2 (05:38→17:19)
[2023-02-11] MEDS: OMEPRAZOLE 40 MG CAPSULE.DR GT SCH (05:38)
[2023-02-11 07:37] VITALS: TEMP 98.7
[2023-02-11] MEDS: HYDROGEN PEROXIDE 3% 118 ML BOTTLE TP SCH ×2 (08:09→21:56)
[2023-02-11] MEDS: levETIRAcetam 500 MG/5 ML LIQUID UDC GT SCH ×2 (08:41→21:53)
[2023-02-11] MEDS: DOCUSATE SODIUM 100 MG/10 ML LIQUID UDC GT SCH ×2 (08:41→21:53)
[2023-02-11] MEDS: ASPIRIN 81 MG TAB.CHEW GT SCH (08:41)
[2023-02-11] MEDS: DIAZEPAM 5 MG TABLET GT SCH ×2 (08:42→21:56)
[2023-02-11] MEDS: PHENOBARBITAL 64.8 MG TABLET GT SCH ×2 (08:42→21:55)
[2023-02-11] MEDS: AMIODARONE 100 MG GT SCH (08:42)
[2023-02-11] MEDS: CHLORHEXIDINE GLUCONATE 15 ML MOUTHWASH MM SCH (08:42)
[2023-02-11] MEDS: COD LIVER OIL/ZINC OXIDE OINT 113 GM TUBE TP SCH ×2 (08:42→21:56)
[2023-02-11] MEDS: METOPROLOL TARTRATE 25 MG TABLET GT SCH ×2 (08:42→21:55)
[2023-02-11] MEDS: REMEDY ESSENTIAL ZINC PASTE 113 GM TP SCH (08:42)
[2023-02-11 20:07] VITALS: TEMP 98.5
[2023-02-11] MEDS: MAGNESIUM OXIDE 400 MG TABLET GT SCH (21:56)
[2023-02-11] MEDS: MULTIVIT, IRON, MIN NO. 8, FA TABLET GT SCH (21:56)
[2023-02-12] MEDS: NUTRISOURCE FIBER 4 GM PACKET GT SCH ×3 (01:00→17:33)
[2023-02-12] MEDS: OMEPRAZOLE 40 MG CAPSULE.DR GT SCH (05:16)
[2023-02-12] MEDS: POLYVINYL ALCOHOL OPHT DROPS 15 ML BOTTLE EACHEYE SCH ×2 (05:16→17:33)
[2023-02-12] MEDS: VITAL AF 1.2 1,000 ML LIQUID GT PRN (06:15)
[2023-02-12 08:00] VITALS: TEMP 97.6
[2023-02-12] MEDS: HYDROGEN PEROXIDE 3% 118 ML BOTTLE TP SCH ×2 (08:09→19:07)
[2023-02-12] MEDS: METOPROLOL TARTRATE 25 MG TABLET GT SCH ×2 (09:00→21:00)
[2023-02-12] MEDS: levETIRAcetam 500 MG/5 ML LIQUID UDC GT SCH ×2 (09:26→21:00)
[2023-02-12] MEDS: ASPIRIN 81 MG TAB.CHEW GT SCH (09:26)
[2023-02-12] MEDS: AMIODARONE 100 MG GT SCH (09:26)
[2023-02-12] MEDS: DOCUSATE SODIUM 100 MG/10 ML LIQUID UDC GT SCH ×2 (09:26→21:00)
[2023-02-12] MEDS: REMEDY ESSENTIAL ZINC PASTE 113 GM TP SCH (09:27)
[2023-02-12] MEDS: CHLORHEXIDINE GLUCONATE 15 ML MOUTHWASH MM SCH (09:27)
[2023-02-12] MEDS: COD LIVER OIL/ZINC OXIDE OINT 113 GM TUBE TP SCH ×2 (09:27→21:00)
[2023-02-12] MEDS: DIAZEPAM 5 MG TABLET GT SCH ×2 (09:32→21:00)
[2023-02-12] MEDS: PHENOBARBITAL 64.8 MG TABLET GT SCH ×2 (09:32→21:00)
[2023-02-12 20:00] VITALS: TEMP 97.4
[2023-02-12] MEDS: MAGNESIUM OXIDE 400 MG TABLET GT SCH (21:00)
[2023-02-12] MEDS: MULTIVIT, IRON, MIN NO. 8, FA TABLET GT SCH (21:00)
[2023-02-13] MEDS: NUTRISOURCE FIBER 4 GM PACKET GT SCH ×3 (01:00→17:02)
[2023-02-13] MEDS: OMEPRAZOLE 40 MG CAPSULE.DR GT SCH (06:47)
[2023-02-13] MEDS: POLYVINYL ALCOHOL OPHT DROPS 15 ML BOTTLE EACHEYE SCH ×2 (06:47→17:02)
[2023-02-13] MEDS: VITAL AF 1.2 1,000 ML LIQUID GT PRN (06:47)
[2023-02-13 08:00] VITALS: TEMP 97.6
[2023-02-13] MEDS: DIAZEPAM 5 MG TABLET GT SCH ×2 (08:35→21:06)
[2023-02-13] MEDS: PHENOBARBITAL 64.8 MG TABLET GT SCH ×2 (08:35→21:06)
[2023-02-13] MEDS: ASPIRIN 81 MG TAB.CHEW GT SCH (08:40)
[2023-02-13] MEDS: levETIRAcetam 500 MG/5 ML LIQUID UDC GT SCH ×2 (08:40→21:04)
[2023-02-13] MEDS: DOCUSATE SODIUM 100 MG/10 ML LIQUID UDC GT SCH ×2 (08:40→21:02)
[2023-02-13] MEDS: AMIODARONE 100 MG GT SCH (08:41)
[2023-02-13] MEDS: METOPROLOL TARTRATE 25 MG TABLET GT SCH ×2 (08:41→21:02)
[2023-02-13] MEDS: CHLORHEXIDINE GLUCONATE 15 ML MOUTHWASH MM SCH (08:45)
[2023-02-13] MEDS: REMEDY ESSENTIAL ZINC PASTE 113 GM TP SCH (08:45)
[2023-02-13] MEDS: COD LIVER OIL/ZINC OXIDE OINT 113 GM TUBE TP SCH ×2 (08:45→21:11)
[2023-02-13] MEDS: HYDROGEN PEROXIDE 3% 118 ML BOTTLE TP SCH ×2 (09:00→19:14)
[2023-02-13 20:00] VITALS: TEMP 96.7
[2023-02-13] MEDS: MULTIVIT, IRON, MIN NO. 8, FA TABLET GT SCH (21:05)
[2023-02-13] MEDS: MAGNESIUM OXIDE 400 MG TABLET GT SCH (21:05)
[2023-02-14] MEDS: NUTRISOURCE FIBER 4 GM PACKET GT SCH ×3 (00:19→17:18)
[2023-02-14] MEDS: POLYVINYL ALCOHOL OPHT DROPS 15 ML BOTTLE EACHEYE SCH ×2 (05:36→17:18)
[2023-02-14] MEDS: OMEPRAZOLE 40 MG CAPSULE.DR GT SCH (05:36)
[2023-02-14 08:00] VITALS: TEMP 97.6
[2023-02-14] MEDS: ASPIRIN 81 MG TAB.CHEW GT SCH (08:35)
[2023-02-14] MEDS: levETIRAcetam 500 MG/5 ML LIQUID UDC GT SCH ×2 (08:36→20:47)
[2023-02-14] MEDS: DOCUSATE SODIUM 100 MG/10 ML LIQUID UDC GT SCH ×2 (08:36→20:47)
[2023-02-14] MEDS: METOPROLOL TARTRATE 25 MG TABLET GT SCH ×2 (08:42→20:48)
[2023-02-14] MEDS: PHENOBARBITAL 64.8 MG TABLET GT SCH ×2 (08:43→20:48)
[2023-02-14] MEDS: AMIODARONE 100 MG GT SCH (08:43)
[2023-02-14] MEDS: DIAZEPAM 5 MG TABLET GT SCH ×2 (08:44→20:48)
[2023-02-14] MEDS: CHLORHEXIDINE GLUCONATE 15 ML MOUTHWASH MM SCH (08:44)
[2023-02-14] MEDS: REMEDY ESSENTIAL ZINC PASTE 113 GM TP SCH (08:44)
[2023-02-14] MEDS: HYDROGEN PEROXIDE 3% 118 ML BOTTLE TP SCH ×2 (09:00→21:24)
[2023-02-14] MEDS: VITAL AF 1.2 1,000 ML LIQUID GT PRN (12:19)
[2023-02-14 20:00] VITALS: TEMP 97.6
[2023-02-14] MEDS: MULTIVIT, IRON, MIN NO. 8, FA TABLET GT SCH (20:48)
[2023-02-14] MEDS: MAGNESIUM OXIDE 400 MG TABLET GT SCH (20:48)
[2023-02-15] MEDS: NUTRISOURCE FIBER 4 GM PACKET GT SCH ×3 (01:50→16:59)
[2023-02-15] MEDS: POLYVINYL ALCOHOL OPHT DROPS 15 ML BOTTLE EACHEYE SCH ×2 (06:06→17:00)
[2023-02-15] MEDS: OMEPRAZOLE 40 MG CAPSULE.DR GT SCH (06:06)
[2023-02-15] MEDS: HYDROGEN PEROXIDE 3% 118 ML BOTTLE TP SCH ×2 (07:38→21:11)
[2023-02-15] MEDS: ASPIRIN 81 MG TAB.CHEW GT SCH (08:32)
[2023-02-15] MEDS: levETIRAcetam 500 MG/5 ML LIQUID UDC GT SCH ×2 (08:33→21:10)
[2023-02-15] MEDS: DOCUSATE SODIUM 100 MG/10 ML LIQUID UDC GT SCH ×2 (08:33→21:09)
[2023-02-15] MEDS: METOPROLOL TARTRATE 25 MG TABLET GT SCH ×2 (08:34→21:10)
[2023-02-15] MEDS: AMIODARONE 100 MG GT SCH (08:35)
[2023-02-15] MEDS: REMEDY ESSENTIAL ZINC PASTE 113 GM TP SCH (08:35)
[2023-02-15] MEDS: PHENOBARBITAL 64.8 MG TABLET GT SCH ×2 (08:35→21:10)
[2023-02-15] MEDS: CHLORHEXIDINE GLUCONATE 15 ML MOUTHWASH MM SCH (08:35)
[2023-02-15] MEDS: DIAZEPAM 5 MG TABLET GT SCH ×2 (08:35→21:10)
[2023-02-15 10:07] VITALS: TEMP 97.6
[2023-02-15] MEDS: VITAL AF 1.2 1,000 ML LIQUID GT PRN (16:59)
[2023-02-15 20:03] VITALS: TEMP 97.8
[2023-02-15] MEDS: MAGNESIUM OXIDE 400 MG TABLET GT SCH (21:10)
[2023-02-15] MEDS: MULTIVIT, IRON, MIN NO. 8, FA TABLET GT SCH (21:10)
[2023-02-16] MEDS: NUTRISOURCE FIBER 4 GM PACKET GT SCH ×3 (01:32→17:21)
[2023-02-16] MEDS: POLYVINYL ALCOHOL OPHT DROPS 15 ML BOTTLE EACHEYE SCH ×2 (05:51→17:21)
[2023-02-16] MEDS: OMEPRAZOLE 40 MG CAPSULE.DR GT SCH (05:51)
[2023-02-16 07:58] VITALS: BP 107/68; TEMP 98; O2SAT 100
[2023-02-16] MEDS: HYDROGEN PEROXIDE 3% 118 ML BOTTLE TP SCH ×2 (08:16→19:21)
[2023-02-16] MEDS: METOPROLOL TARTRATE 25 MG TABLET GT SCH ×2 (09:00→21:08)
[2023-02-16] MEDS: DOCUSATE SODIUM 100 MG/10 ML LIQUID UDC GT SCH ×2 (09:22→21:07)
[2023-02-16] MEDS: ASPIRIN 81 MG TAB.CHEW GT SCH (09:22)
[2023-02-16] MEDS: levETIRAcetam 500 MG/5 ML LIQUID UDC GT SCH ×2 (09:22→21:07)
[2023-02-16] MEDS: AMIODARONE 100 MG GT SCH (09:27)
[2023-02-16] MEDS: DIAZEPAM 5 MG TABLET GT SCH ×2 (09:28→21:08)
[2023-02-16] MEDS: PHENOBARBITAL 64.8 MG TABLET GT SCH ×2 (09:29→21:08)
[2023-02-16] MEDS: REMEDY ESSENTIAL ZINC PASTE 113 GM TP SCH (09:29)
[2023-02-16] MEDS: CHLORHEXIDINE GLUCONATE 15 ML MOUTHWASH MM SCH (09:29)
[2023-02-16 20:00] VITALS: TEMP 96.7
[2023-02-16] MEDS: MAGNESIUM OXIDE 400 MG TABLET GT SCH (21:08)
[2023-02-16] MEDS: MULTIVIT, IRON, MIN NO. 8, FA TABLET GT SCH (21:08)
[2023-02-17] MEDS: NUTRISOURCE FIBER 4 GM PACKET GT SCH ×3 (01:26→17:31)
[2023-02-17] MEDS: VITAL AF 1.2 1,000 ML LIQUID GT PRN (02:07)
[2023-02-17] MEDS: OMEPRAZOLE 40 MG CAPSULE.DR GT SCH (05:40)
[2023-02-17] MEDS: POLYVINYL ALCOHOL OPHT DROPS 15 ML BOTTLE EACHEYE SCH ×2 (05:40→17:32)
[2023-02-17 07:53] VITALS: TEMP 98.3
[2023-02-17] MEDS: HYDROGEN PEROXIDE 3% 118 ML BOTTLE TP SCH ×2 (08:35→20:09)
[2023-02-17] MEDS: METOPROLOL TARTRATE 25 MG TABLET GT SCH ×2 (09:00→21:25)
[2023-02-17] MEDS: ASPIRIN 81 MG TAB.CHEW GT SCH (09:40)
[2023-02-17] MEDS: DOCUSATE SODIUM 100 MG/10 ML LIQUID UDC GT SCH ×2 (09:41→21:24)
[2023-02-17] MEDS: levETIRAcetam 500 MG/5 ML LIQUID UDC GT SCH ×2 (09:41→21:24)
[2023-02-17] MEDS: DIAZEPAM 5 MG TABLET GT SCH ×2 (09:46→21:25)
[2023-02-17] MEDS: PHENOBARBITAL 64.8 MG TABLET GT SCH ×2 (09:46→21:25)
[2023-02-17] MEDS: AMIODARONE 100 MG GT SCH (09:47)
[2023-02-17] MEDS: REMEDY ESSENTIAL ZINC PASTE 113 GM TP SCH (09:47)
[2023-02-17] MEDS: CHLORHEXIDINE GLUCONATE 15 ML MOUTHWASH MM SCH (09:47)
[2023-02-17 20:00] VITALS: TEMP 97.5
[2023-02-17] MEDS: MULTIVIT, IRON, MIN NO. 8, FA TABLET GT SCH (21:25)
[2023-02-17] MEDS: MAGNESIUM OXIDE 400 MG TABLET GT SCH (21:25)
[2023-02-18] MEDS: NUTRISOURCE FIBER 4 GM PACKET GT SCH ×3 (01:37→17:43)
[2023-02-18] MEDS: POLYVINYL ALCOHOL OPHT DROPS 15 ML BOTTLE EACHEYE SCH ×2 (05:34→17:43)
[2023-02-18] MEDS: OMEPRAZOLE 40 MG CAPSULE.DR GT SCH (05:34)
[2023-02-18] MEDS: HYDROGEN PEROXIDE 3% 118 ML BOTTLE TP SCH ×2 (07:24→20:52)
[2023-02-18 07:47] VITALS: TEMP 98.2
[2023-02-18] MEDS: ASPIRIN 81 MG TAB.CHEW GT SCH (08:47)
[2023-02-18] MEDS: DOCUSATE SODIUM 100 MG/10 ML LIQUID UDC GT SCH ×2 (08:47→20:52)
[2023-02-18] MEDS: levETIRAcetam 500 MG/5 ML LIQUID UDC GT SCH ×2 (08:49→20:52)
[2023-02-18] MEDS: PHENOBARBITAL 64.8 MG TABLET GT SCH ×2 (08:54→20:52)
[2023-02-18] MEDS: AMIODARONE 100 MG GT SCH (08:54)
[2023-02-18] MEDS: METOPROLOL TARTRATE 25 MG TABLET GT SCH ×2 (08:54→20:52)
[2023-02-18] MEDS: REMEDY ESSENTIAL ZINC PASTE 113 GM TP SCH (08:55)
[2023-02-18] MEDS: DIAZEPAM 5 MG TABLET GT SCH ×2 (08:55→20:52)
[2023-02-18] MEDS: CHLORHEXIDINE GLUCONATE 15 ML MOUTHWASH MM SCH (09:00)
[2023-02-18 20:00] VITALS: TEMP 98.3
[2023-02-18] MEDS: MAGNESIUM OXIDE 400 MG TABLET GT SCH (20:52)
[2023-02-18] MEDS: MULTIVIT, IRON, MIN NO. 8, FA TABLET GT SCH (20:52)
[2023-02-19] MEDS: NUTRISOURCE FIBER 4 GM PACKET GT SCH ×3 (01:59→17:46)
[2023-02-19] MEDS: POLYVINYL ALCOHOL OPHT DROPS 15 ML BOTTLE EACHEYE SCH ×2 (06:35→17:46)
[2023-02-19] MEDS: OMEPRAZOLE 40 MG CAPSULE.DR GT SCH (06:35)
[2023-02-19] MEDS: ASPIRIN 81 MG TAB.CHEW GT SCH (09:23)
[2023-02-19] MEDS: levETIRAcetam 500 MG/5 ML LIQUID UDC GT SCH ×2 (09:24→20:51)
[2023-02-19] MEDS: DOCUSATE SODIUM 100 MG/10 ML LIQUID UDC GT SCH ×2 (09:24→20:51)
[2023-02-19] MEDS: AMIODARONE 100 MG GT SCH (09:25)
[2023-02-19] MEDS: REMEDY ESSENTIAL ZINC PASTE 113 GM TP SCH (09:26)
[2023-02-19] MEDS: METOPROLOL TARTRATE 25 MG TABLET GT SCH ×2 (09:27→20:51)
[2023-02-19] MEDS: DIAZEPAM 5 MG TABLET GT SCH ×2 (09:27→20:52)
[2023-02-19] MEDS: PHENOBARBITAL 64.8 MG TABLET GT SCH ×2 (09:27→20:51)
[2023-02-19] MEDS: CHLORHEXIDINE GLUCONATE 15 ML MOUTHWASH MM SCH (09:30)
[2023-02-19 09:31] VITALS: TEMP 98.7
[2023-02-19] MEDS: HYDROGEN PEROXIDE 3% 118 ML BOTTLE TP SCH ×2 (09:52→19:09)
[2023-02-19] MEDS: VITAL AF 1.2 1,000 ML LIQUID GT PRN (15:34)
[2023-02-19 20:00] VITALS: TEMP 97.8
[2023-02-19] MEDS: MAGNESIUM OXIDE 400 MG TABLET GT SCH (20:51)
[2023-02-19] MEDS: MULTIVIT, IRON, MIN NO. 8, FA TABLET GT SCH (20:52)
[2023-02-20] MEDS: NUTRISOURCE FIBER 4 GM PACKET GT SCH ×3 (01:00→17:08)
[2023-02-20] MEDS: POLYVINYL ALCOHOL OPHT DROPS 15 ML BOTTLE EACHEYE SCH ×2 (06:30→17:08)
[2023-02-20] MEDS: OMEPRAZOLE 40 MG CAPSULE.DR GT SCH (06:30)
[2023-02-20] MEDS: HYDROGEN PEROXIDE 3% 118 ML BOTTLE TP SCH ×2 (07:16→19:18)
[2023-02-20] MEDS: ASPIRIN 81 MG TAB.CHEW GT SCH (09:25)
[2023-02-20] MEDS: DOCUSATE SODIUM 100 MG/10 ML LIQUID UDC GT SCH ×2 (09:25→20:38)
[2023-02-20] MEDS: levETIRAcetam 500 MG/5 ML LIQUID UDC GT SCH ×2 (09:28→20:38)
[2023-02-20] MEDS: METOPROLOL TARTRATE 25 MG TABLET GT SCH ×2 (09:29→20:39)
[2023-02-20] MEDS: CHLORHEXIDINE GLUCONATE 15 ML MOUTHWASH MM SCH (09:29)
[2023-02-20] MEDS: AMIODARONE 100 MG GT SCH (09:29)
[2023-02-20] MEDS: DIAZEPAM 5 MG TABLET GT SCH ×2 (09:29→20:39)
[2023-02-20] MEDS: PHENOBARBITAL 64.8 MG TABLET GT SCH ×2 (09:29→20:39)
[2023-02-20] MEDS: REMEDY ESSENTIAL ZINC PASTE 113 GM TP SCH (09:30)
[2023-02-20] MEDS: VITAL AF 1.2 1,000 ML LIQUID GT PRN ×2 (17:41→17:43)
[2023-02-20] MEDS: MULTIVIT, IRON, MIN NO. 8, FA TABLET GT SCH (20:39)
[2023-02-20] MEDS: MAGNESIUM OXIDE 400 MG TABLET GT SCH (20:39)
[2023-02-20 22:55] VITALS: TEMP 98.4
[2023-02-21] MEDS: NUTRISOURCE FIBER 4 GM PACKET GT SCH ×3 (00:58→17:16)
[2023-02-21] MEDS: OMEPRAZOLE 40 MG CAPSULE.DR GT SCH (06:19)
[2023-02-21] MEDS: POLYVINYL ALCOHOL OPHT DROPS 15 ML BOTTLE EACHEYE SCH ×2 (06:19→17:16)
[2023-02-21 07:35] VITALS: TEMP 98.4
[2023-02-21] MEDS: levETIRAcetam 500 MG/5 ML LIQUID UDC GT SCH ×2 (08:32→20:35)
[2023-02-21] MEDS: DOCUSATE SODIUM 100 MG/10 ML LIQUID UDC GT SCH ×2 (08:32→20:35)
[2023-02-21] MEDS: ASPIRIN 81 MG TAB.CHEW GT SCH (08:32)
[2023-02-21] MEDS: PHENOBARBITAL 64.8 MG TABLET GT SCH ×2 (08:33→20:38)
[2023-02-21] MEDS: CHLORHEXIDINE GLUCONATE 15 ML MOUTHWASH MM SCH (08:33)
[2023-02-21] MEDS: METOPROLOL TARTRATE 25 MG TABLET GT SCH ×2 (08:33→20:37)
[2023-02-21] MEDS: AMIODARONE 100 MG GT SCH (08:33)
[2023-02-21] MEDS: REMEDY ESSENTIAL ZINC PASTE 113 GM TP SCH (08:33)
[2023-02-21] MEDS: DIAZEPAM 5 MG TABLET GT SCH ×2 (08:33→20:38)
[2023-02-21] MEDS: HYDROGEN PEROXIDE 3% 118 ML BOTTLE TP SCH ×2 (09:00→19:16)
[2023-02-21 20:00] VITALS: TEMP 99.3
[2023-02-21] MEDS: MAGNESIUM OXIDE 400 MG TABLET GT SCH (20:38)
[2023-02-21] MEDS: MULTIVIT, IRON, MIN NO. 8, FA TABLET GT SCH (20:38)
[2023-02-22] MEDS: NUTRISOURCE FIBER 4 GM PACKET GT SCH ×3 (01:00→16:44)
[2023-02-22] MEDS: OMEPRAZOLE 40 MG CAPSULE.DR GT SCH (05:49)
[2023-02-22] MEDS: POLYVINYL ALCOHOL OPHT DROPS 15 ML BOTTLE EACHEYE SCH ×2 (05:49→16:44)
[2023-02-22] MEDS: HYDROGEN PEROXIDE 3% 118 ML BOTTLE TP SCH ×2 (07:20→19:14)
[2023-02-22 07:52] VITALS: TEMP 98.6
[2023-02-22] MEDS: levETIRAcetam 500 MG/5 ML LIQUID UDC GT SCH ×2 (08:25→20:53)
[2023-02-22] MEDS: DOCUSATE SODIUM 100 MG/10 ML LIQUID UDC GT SCH ×2 (08:25→20:53)
[2023-02-22] MEDS: ASPIRIN 81 MG TAB.CHEW GT SCH (08:25)
[2023-02-22] MEDS: PHENOBARBITAL 64.8 MG TABLET GT SCH ×2 (08:26→20:54)
[2023-02-22] MEDS: CHLORHEXIDINE GLUCONATE 15 ML MOUTHWASH MM SCH (08:26)
[2023-02-22] MEDS: REMEDY ESSENTIAL ZINC PASTE 113 GM TP SCH (08:26)
[2023-02-22] MEDS: AMIODARONE 100 MG GT SCH (08:26)
[2023-02-22] MEDS: METOPROLOL TARTRATE 25 MG TABLET GT SCH ×2 (08:26→20:54)
[2023-02-22] MEDS: DIAZEPAM 5 MG TABLET GT SCH ×2 (08:26→20:55)
[2023-02-22 20:05] VITALS: TEMP 98.2
[2023-02-22] MEDS: MAGNESIUM OXIDE 400 MG TABLET GT SCH (20:55)
[2023-02-22] MEDS: MULTIVIT, IRON, MIN NO. 8, FA TABLET GT SCH (20:55)
[2023-02-23] MEDS: NUTRISOURCE FIBER 4 GM PACKET GT SCH ×3 (01:00→17:12)
[2023-02-23] MEDS: OMEPRAZOLE 40 MG CAPSULE.DR GT SCH (05:24)
[2023-02-23] MEDS: POLYVINYL ALCOHOL OPHT DROPS 15 ML BOTTLE EACHEYE SCH ×2 (05:24→17:12)
[2023-02-23 07:59] VITALS: TEMP 97.5
[2023-02-23] MEDS: HYDROGEN PEROXIDE 3% 118 ML BOTTLE TP SCH ×2 (08:19→19:07)
[2023-02-23] MEDS: ASPIRIN 81 MG TAB.CHEW GT SCH (08:48)
[2023-02-23] MEDS: DOCUSATE SODIUM 100 MG/10 ML LIQUID UDC GT SCH ×2 (08:48→21:00)
[2023-02-23] MEDS: PHENOBARBITAL 64.8 MG TABLET GT SCH ×2 (08:51→21:00)
[2023-02-23] MEDS: METOPROLOL TARTRATE 25 MG TABLET GT SCH ×2 (08:51→21:00)
[2023-02-23] MEDS: levETIRAcetam 500 MG/5 ML LIQUID UDC GT SCH ×2 (08:51→21:00)
[2023-02-23] MEDS: DIAZEPAM 5 MG TABLET GT SCH ×2 (08:52→21:00)
[2023-02-23] MEDS: REMEDY ESSENTIAL ZINC PASTE 113 GM TP SCH (08:52)
[2023-02-23] MEDS: AMIODARONE 100 MG GT SCH (08:52)
[2023-02-23] MEDS: CHLORHEXIDINE GLUCONATE 15 ML MOUTHWASH MM SCH (08:52)
[2023-02-23 20:01] VITALS: TEMP 97.5
[2023-02-23] MEDS: MULTIVIT, IRON, MIN NO. 8, FA TABLET GT SCH (21:00)
[2023-02-23] MEDS: MAGNESIUM OXIDE 400 MG TABLET GT SCH (21:00)
[2023-02-23] MEDS: VITAL AF 1.2 1,000 ML LIQUID GT PRN (22:30)
[2023-02-24] MEDS: NUTRISOURCE FIBER 4 GM PACKET GT SCH ×3 (01:23→17:15)
[2023-02-24] MEDS: OMEPRAZOLE 40 MG CAPSULE.DR GT SCH (05:11)
[2023-02-24] MEDS: POLYVINYL ALCOHOL OPHT DROPS 15 ML BOTTLE EACHEYE SCH ×2 (05:11→18:16)
[2023-02-24 08:00] VITALS: TEMP 98.5
[2023-02-24] MEDS: levETIRAcetam 500 MG/5 ML LIQUID UDC GT SCH ×2 (08:23→20:13)
[2023-02-24] MEDS: ASPIRIN 81 MG TAB.CHEW GT SCH (08:23)
[2023-02-24] MEDS: DOCUSATE SODIUM 100 MG/10 ML LIQUID UDC GT SCH ×2 (08:23→20:12)
[2023-02-24] MEDS: METOPROLOL TARTRATE 25 MG TABLET GT SCH ×2 (08:26→21:28)
[2023-02-24] MEDS: AMIODARONE 100 MG GT SCH (08:28)
[2023-02-24] MEDS: CHLORHEXIDINE GLUCONATE 15 ML MOUTHWASH MM SCH (08:28)
[2023-02-24] MEDS: DIAZEPAM 5 MG TABLET GT SCH ×2 (08:28→20:13)
[2023-02-24] MEDS: PHENOBARBITAL 64.8 MG TABLET GT SCH ×2 (08:28→20:13)
[2023-02-24] MEDS: REMEDY ESSENTIAL ZINC PASTE 113 GM TP SCH (08:29)
[2023-02-24] MEDS: HYDROGEN PEROXIDE 3% 118 ML BOTTLE TP SCH ×2 (09:00→19:04)
[2023-02-24] MEDS: MAGNESIUM OXIDE 400 MG TABLET GT SCH (20:13)
[2023-02-24] MEDS: MULTIVIT, IRON, MIN NO. 8, FA TABLET GT SCH (20:13)
[2023-02-24 20:31] VITALS: TEMP 97.7
[2023-02-25] MEDS: NUTRISOURCE FIBER 4 GM PACKET GT SCH ×3 (01:11→16:54)
[2023-02-25] MEDS: OMEPRAZOLE 40 MG CAPSULE.DR GT SCH (05:11)
[2023-02-25] MEDS: POLYVINYL ALCOHOL OPHT DROPS 15 ML BOTTLE EACHEYE SCH ×2 (05:11→17:00)
[2023-02-25] MEDS: HYDROGEN PEROXIDE 3% 118 ML BOTTLE TP SCH ×2 (07:16→21:52)
[2023-02-25] MEDS: DOCUSATE SODIUM 100 MG/10 ML LIQUID UDC GT SCH ×2 (09:53→21:41)
[2023-02-25] MEDS: METOPROLOL TARTRATE 25 MG TABLET GT SCH ×2 (09:53→21:42)
[2023-02-25] MEDS: AMIODARONE 100 MG GT SCH (09:53)
[2023-02-25] MEDS: PHENOBARBITAL 64.8 MG TABLET GT SCH ×2 (09:53→21:42)
[2023-02-25] MEDS: levETIRAcetam 500 MG/5 ML LIQUID UDC GT SCH ×2 (09:53→21:41)
[2023-02-25] MEDS: ASPIRIN 81 MG TAB.CHEW GT SCH (09:53)
[2023-02-25] MEDS: DIAZEPAM 5 MG TABLET GT SCH ×2 (09:53→21:42)
[2023-02-25] MEDS: REMEDY ESSENTIAL ZINC PASTE 113 GM TP SCH (09:54)
[2023-02-25] MEDS: VITAL AF 1.2 1,000 ML LIQUID GT PRN (09:54)
[2023-02-25] MEDS: CHLORHEXIDINE GLUCONATE 15 ML MOUTHWASH MM SCH (09:54)
[2023-02-25 10:36] VITALS: TEMP 99.6
[2023-02-25 20:00] VITALS: TEMP 98
[2023-02-25] MEDS: MULTIVIT, IRON, MIN NO. 8, FA TABLET GT SCH (21:42)
[2023-02-25] MEDS: MAGNESIUM OXIDE 400 MG TABLET GT SCH (21:42)
[2023-02-26] MEDS: NUTRISOURCE FIBER 4 GM PACKET GT SCH ×3 (01:13→18:00)
[2023-02-26] MEDS: POLYVINYL ALCOHOL OPHT DROPS 15 ML BOTTLE EACHEYE SCH ×2 (05:12→18:28)
[2023-02-26] MEDS: OMEPRAZOLE 40 MG CAPSULE.DR GT SCH (05:13)
[2023-02-26] MEDS: HYDROGEN PEROXIDE 3% 118 ML BOTTLE TP SCH ×2 (07:53→20:45)
[2023-02-26] MEDS: METOPROLOL TARTRATE 25 MG TABLET GT SCH ×2 (09:00→21:00)
[2023-02-26 09:24] VITALS: TEMP 97.6
[2023-02-26] MEDS: DOCUSATE SODIUM 100 MG/10 ML LIQUID UDC GT SCH ×2 (09:55→21:00)
[2023-02-26] MEDS: ASPIRIN 81 MG TAB.CHEW GT SCH (09:55)
[2023-02-26] MEDS: levETIRAcetam 500 MG/5 ML LIQUID UDC GT SCH ×2 (09:55→21:00)
[2023-02-26] MEDS: AMIODARONE 100 MG GT SCH (09:56)
[2023-02-26] MEDS: DIAZEPAM 5 MG TABLET GT SCH ×2 (09:56→21:00)
[2023-02-26] MEDS: CHLORHEXIDINE GLUCONATE 15 ML MOUTHWASH MM SCH (09:56)
[2023-02-26] MEDS: PHENOBARBITAL 64.8 MG TABLET GT SCH ×2 (09:56→21:00)
[2023-02-26] MEDS: REMEDY ESSENTIAL ZINC PASTE 113 GM TP SCH (09:56)
[2023-02-26] MEDS: VITAL AF 1.2 1,000 ML LIQUID GT PRN (10:10)
[2023-02-26 20:00] VITALS: TEMP 98.1
[2023-02-26] MEDS: MULTIVIT, IRON, MIN NO. 8, FA TABLET GT SCH (21:00)
[2023-02-26] MEDS: MAGNESIUM OXIDE 400 MG TABLET GT SCH (21:00)
[2023-02-27] MEDS: NUTRISOURCE FIBER 4 GM PACKET GT SCH ×3 (01:24→17:08)
[2023-02-27] MEDS: OMEPRAZOLE 40 MG CAPSULE.DR GT SCH (06:19)
[2023-02-27] MEDS: POLYVINYL ALCOHOL OPHT DROPS 15 ML BOTTLE EACHEYE SCH ×2 (06:19→17:08)
[2023-02-27] MEDS: ASPIRIN 81 MG TAB.CHEW GT SCH (08:38)
[2023-02-27] MEDS: DOCUSATE SODIUM 100 MG/10 ML LIQUID UDC GT SCH ×2 (08:38→20:41)
[2023-02-27] MEDS: levETIRAcetam 500 MG/5 ML LIQUID UDC GT SCH ×2 (08:39→20:27)
[2023-02-27] MEDS: METOPROLOL TARTRATE 25 MG TABLET GT SCH ×2 (08:41→20:29)
[2023-02-27] MEDS: AMIODARONE 100 MG GT SCH (08:42)
[2023-02-27] MEDS: CHLORHEXIDINE GLUCONATE 15 ML MOUTHWASH MM SCH (08:43)
[2023-02-27] MEDS: REMEDY ESSENTIAL ZINC PASTE 113 GM TP SCH (08:43)
[2023-02-27] MEDS: PHENOBARBITAL 64.8 MG TABLET GT SCH ×2 (08:45→20:31)
[2023-02-27] MEDS: DIAZEPAM 5 MG TABLET GT SCH ×2 (08:46→20:32)
[2023-02-27] MEDS: HYDROGEN PEROXIDE 3% 118 ML BOTTLE TP SCH ×2 (09:43→19:16)
[2023-02-27 10:51] VITALS: TEMP 98.1
[2023-02-27] MEDS: VITAL AF 1.2 1,000 ML LIQUID GT PRN (17:09)
[2023-02-27 20:00] VITALS: TEMP 98.1
[2023-02-27] MEDS: MULTIVIT, IRON, MIN NO. 8, FA TABLET GT SCH (20:31)
[2023-02-27] MEDS: MAGNESIUM OXIDE 400 MG TABLET GT SCH (20:31)
[2023-02-28] MEDS: NUTRISOURCE FIBER 4 GM PACKET GT SCH ×3 (01:00→17:52)
[2023-02-28] MEDS: OMEPRAZOLE 40 MG CAPSULE.DR GT SCH (06:00)
[2023-02-28] MEDS: POLYVINYL ALCOHOL OPHT DROPS 15 ML BOTTLE EACHEYE SCH ×2 (06:00→17:52)
[2023-02-28] MEDS: HYDROGEN PEROXIDE 3% 118 ML BOTTLE TP SCH ×2 (07:24→19:23)
[2023-02-28 08:02] VITALS: TEMP 98.3
[2023-02-28] MEDS: ASPIRIN 81 MG TAB.CHEW GT SCH (08:41)
[2023-02-28] MEDS: DOCUSATE SODIUM 100 MG/10 ML LIQUID UDC GT SCH ×2 (08:41→20:23)
[2023-02-28] MEDS: levETIRAcetam 500 MG/5 ML LIQUID UDC GT SCH ×2 (08:42→20:23)
[2023-02-28] MEDS: METOPROLOL TARTRATE 25 MG TABLET GT SCH ×2 (08:45→20:24)
[2023-02-28] MEDS: AMIODARONE 100 MG GT SCH (08:45)
[2023-02-28] MEDS: CHLORHEXIDINE GLUCONATE 15 ML MOUTHWASH MM SCH (08:45)
[2023-02-28] MEDS: REMEDY ESSENTIAL ZINC PASTE 113 GM TP SCH (08:45)
[2023-02-28] MEDS: PHENOBARBITAL 64.8 MG TABLET GT SCH ×2 (08:45→20:25)
[2023-02-28] MEDS: DIAZEPAM 5 MG TABLET GT SCH ×2 (08:45→20:26)
[2023-02-28 19:47] VITALS: TEMP 98.4
[2023-02-28] MEDS: MAGNESIUM OXIDE 400 MG TABLET GT SCH (20:25)
[2023-02-28] MEDS: MULTIVIT, IRON, MIN NO. 8, FA TABLET GT SCH (20:25)
[2023-03-01] MEDS: VITAL AF 1.2 1,000 ML LIQUID GT PRN (01:10)
[2023-03-01] MEDS: NUTRISOURCE FIBER 4 GM PACKET GT SCH ×4 (01:10→21:40)
[2023-03-01] MEDS: POLYVINYL ALCOHOL OPHT DROPS 15 ML BOTTLE EACHEYE SCH ×2 (05:36→17:34)
[2023-03-01] MEDS: OMEPRAZOLE 40 MG CAPSULE.DR GT SCH (05:36)
[2023-03-01 07:00] VITALS: O2SAT 99
[2023-03-01] MEDS: levETIRAcetam 500 MG/5 ML LIQUID UDC GT SCH ×2 (08:49→21:39)
[2023-03-01] MEDS: ASPIRIN 81 MG TAB.CHEW GT SCH (08:49)
[2023-03-01] MEDS: DOCUSATE SODIUM 100 MG/10 ML LIQUID UDC GT SCH ×2 (08:49→21:39)
[2023-03-01] MEDS: AMIODARONE 100 MG GT SCH (08:51)
[2023-03-01] MEDS: REMEDY ESSENTIAL ZINC PASTE 113 GM TP SCH (08:51)
[2023-03-01] MEDS: DIAZEPAM 5 MG TABLET GT SCH ×2 (08:51→21:46)
[2023-03-01] MEDS: CHLORHEXIDINE GLUCONATE 15 ML MOUTHWASH MM SCH (08:51)
[2023-03-01] MEDS: PHENOBARBITAL 64.8 MG TABLET GT SCH ×2 (08:51→21:46)
[2023-03-01] MEDS: METOPROLOL TARTRATE 25 MG TABLET GT SCH ×2 (08:51→21:38)
[2023-03-01] MEDS: HYDROGEN PEROXIDE 3% 118 ML BOTTLE TP SCH ×2 (09:00→19:23)
[2023-03-01 20:00] VITALS: TEMP 98
[2023-03-01] MEDS: MAGNESIUM OXIDE 400 MG TABLET GT SCH (21:40)
[2023-03-01] MEDS: MULTIVIT, IRON, MIN NO. 8, FA TABLET GT SCH (21:40)
[2023-03-02] MEDS: POLYVINYL ALCOHOL OPHT DROPS 15 ML BOTTLE EACHEYE SCH ×2 (06:18→17:18)
[2023-03-02] MEDS: OMEPRAZOLE 40 MG CAPSULE.DR GT SCH (06:18)
[2023-03-02 08:00] VITALS: TEMP 98.2
[2023-03-02] MEDS: DOCUSATE SODIUM 100 MG/10 ML LIQUID UDC GT SCH ×2 (08:22→21:00)
[2023-03-02] MEDS: ASPIRIN 81 MG TAB.CHEW GT SCH (08:22)
[2023-03-02] MEDS: levETIRAcetam 500 MG/5 ML LIQUID UDC GT SCH ×2 (08:24→21:00)
[2023-03-02] MEDS: METOPROLOL TARTRATE 25 MG TABLET GT SCH ×2 (08:25→21:00)
[2023-03-02] MEDS: AMIODARONE 100 MG GT SCH (08:25)
[2023-03-02] MEDS: DIAZEPAM 5 MG TABLET GT SCH ×2 (08:32→21:00)
[2023-03-02] MEDS: NUTRISOURCE FIBER 4 GM PACKET GT SCH ×3 (08:32→22:11)
[2023-03-02] MEDS: CHLORHEXIDINE GLUCONATE 15 ML MOUTHWASH MM SCH (08:33)
[2023-03-02] MEDS: REMEDY ESSENTIAL ZINC PASTE 113 GM TP SCH (08:37)
[2023-03-02] MEDS: PHENOBARBITAL 64.8 MG TABLET GT SCH ×2 (08:37→21:00)
[2023-03-02] MEDS: HYDROGEN PEROXIDE 3% 118 ML BOTTLE TP SCH ×2 (10:10→19:12)
[2023-03-02 20:00] VITALS: TEMP 98
[2023-03-02] MEDS: MAGNESIUM OXIDE 400 MG TABLET GT SCH (21:00)
[2023-03-02] MEDS: MULTIVIT, IRON, MIN NO. 8, FA TABLET GT SCH (21:00)
[2023-03-03] MEDS: OMEPRAZOLE 40 MG CAPSULE.DR GT SCH (05:48)
[2023-03-03] MEDS: POLYVINYL ALCOHOL OPHT DROPS 15 ML BOTTLE EACHEYE SCH ×2 (05:48→17:17)
[2023-03-03 07:50] VITALS: TEMP 97.3
[2023-03-03] MEDS: ASPIRIN 81 MG TAB.CHEW GT SCH (08:05)
[2023-03-03] MEDS: levETIRAcetam 500 MG/5 ML LIQUID UDC GT SCH ×2 (08:05→21:53)
[2023-03-03] MEDS: DOCUSATE SODIUM 100 MG/10 ML LIQUID UDC GT SCH ×2 (08:05→21:53)
[2023-03-03] MEDS: METOPROLOL TARTRATE 25 MG TABLET GT SCH ×2 (08:07→21:53)
[2023-03-03] MEDS: CHLORHEXIDINE GLUCONATE 15 ML MOUTHWASH MM SCH (08:08)
[2023-03-03] MEDS: PHENOBARBITAL 64.8 MG TABLET GT SCH ×2 (08:08→21:55)
[2023-03-03] MEDS: AMIODARONE 100 MG GT SCH (08:08)
[2023-03-03] MEDS: NUTRISOURCE FIBER 4 GM PACKET GT SCH ×2 (08:08→17:17)
[2023-03-03] MEDS: REMEDY ESSENTIAL ZINC PASTE 113 GM TP SCH (08:08)
[2023-03-03] MEDS: DIAZEPAM 5 MG TABLET GT SCH ×2 (08:08→21:55)
[2023-03-03] MEDS: HYDROGEN PEROXIDE 3% 118 ML BOTTLE TP SCH ×2 (08:44→20:22)
[2023-03-03 20:00] VITALS: TEMP 97.1
[2023-03-03] MEDS: MULTIVIT, IRON, MIN NO. 8, FA TABLET GT SCH (21:53)
[2023-03-03] MEDS: MAGNESIUM OXIDE 400 MG TABLET GT SCH (21:53)
[2023-03-04] MEDS: NUTRISOURCE FIBER 4 GM PACKET GT SCH ×3 (01:05→17:09)
[2023-03-04] MEDS: OMEPRAZOLE 40 MG CAPSULE.DR GT SCH (05:50)
[2023-03-04] MEDS: POLYVINYL ALCOHOL OPHT DROPS 15 ML BOTTLE EACHEYE SCH ×2 (05:50→17:09)
[2023-03-04 07:36] VITALS: TEMP 97.7
[2023-03-04] MEDS: DOCUSATE SODIUM 100 MG/10 ML LIQUID UDC GT SCH ×2 (09:18→20:12)
[2023-03-04] MEDS: levETIRAcetam 500 MG/5 ML LIQUID UDC GT SCH ×2 (09:18→20:12)
[2023-03-04] MEDS: ASPIRIN 81 MG TAB.CHEW GT SCH (09:18)
[2023-03-04] MEDS: CHLORHEXIDINE GLUCONATE 15 ML MOUTHWASH MM SCH (09:19)
[2023-03-04] MEDS: AMIODARONE 100 MG GT SCH (09:19)
[2023-03-04] MEDS: PHENOBARBITAL 64.8 MG TABLET GT SCH ×2 (09:19→20:20)
[2023-03-04] MEDS: METOPROLOL TARTRATE 25 MG TABLET GT SCH ×2 (09:19→20:12)
[2023-03-04] MEDS: DIAZEPAM 5 MG TABLET GT SCH ×2 (09:19→20:20)
[2023-03-04] MEDS: REMEDY ESSENTIAL ZINC PASTE 113 GM TP SCH (09:19)
[2023-03-04] MEDS: HYDROGEN PEROXIDE 3% 118 ML BOTTLE TP SCH ×2 (09:47→19:15)
[2023-03-04 20:00] VITALS: TEMP 98
[2023-03-04] MEDS: MAGNESIUM OXIDE 400 MG TABLET GT SCH (20:14)
[2023-03-04] MEDS: MULTIVIT, IRON, MIN NO. 8, FA TABLET GT SCH (20:20)
[2023-03-05] MEDS: NUTRISOURCE FIBER 4 GM PACKET GT SCH ×3 (00:43→16:57)
[2023-03-05] MEDS: OMEPRAZOLE 40 MG CAPSULE.DR GT SCH (05:01)
[2023-03-05] MEDS: POLYVINYL ALCOHOL OPHT DROPS 15 ML BOTTLE EACHEYE SCH ×2 (05:01→18:48)
[2023-03-05 08:00] VITALS: TEMP 97
[2023-03-05] MEDS: ASPIRIN 81 MG TAB.CHEW GT SCH (08:48)
[2023-03-05] MEDS: levETIRAcetam 500 MG/5 ML LIQUID UDC GT SCH ×2 (08:48→20:54)
[2023-03-05] MEDS: DOCUSATE SODIUM 100 MG/10 ML LIQUID UDC GT SCH ×2 (08:48→20:54)
[2023-03-05] MEDS: AMIODARONE 100 MG GT SCH (08:49)
[2023-03-05] MEDS: DIAZEPAM 5 MG TABLET GT SCH ×2 (08:49→20:55)
[2023-03-05] MEDS: METOPROLOL TARTRATE 25 MG TABLET GT SCH ×2 (08:49→20:55)
[2023-03-05] MEDS: REMEDY ESSENTIAL ZINC PASTE 113 GM TP SCH (08:49)
[2023-03-05] MEDS: PHENOBARBITAL 64.8 MG TABLET GT SCH ×2 (08:49→20:55)
[2023-03-05] MEDS: CHLORHEXIDINE GLUCONATE 15 ML MOUTHWASH MM SCH (08:49)
[2023-03-05] MEDS: HYDROGEN PEROXIDE 3% 118 ML BOTTLE TP SCH ×2 (09:00→20:29)
[2023-03-05 19:47] VITALS: TEMP 98
[2023-03-05] MEDS: MAGNESIUM OXIDE 400 MG TABLET GT SCH (20:55)
[2023-03-05] MEDS: MULTIVIT, IRON, MIN NO. 8, FA TABLET GT SCH (20:55)
[2023-03-06] MEDS: NUTRISOURCE FIBER 4 GM PACKET GT SCH ×3 (01:41→17:30)
[2023-03-06] MEDS: OMEPRAZOLE 40 MG CAPSULE.DR GT SCH (06:32)
[2023-03-06] MEDS: POLYVINYL ALCOHOL OPHT DROPS 15 ML BOTTLE EACHEYE SCH ×2 (06:32→17:30)
[2023-03-06] MEDS: HYDROGEN PEROXIDE 3% 118 ML BOTTLE TP SCH ×2 (07:30→21:12)
[2023-03-06 08:00] VITALS: TEMP 98.5
[2023-03-06] MEDS: levETIRAcetam 500 MG/5 ML LIQUID UDC GT SCH ×2 (08:51→20:56)
[2023-03-06] MEDS: DOCUSATE SODIUM 100 MG/10 ML LIQUID UDC GT SCH ×2 (08:51→20:56)
[2023-03-06] MEDS: ASPIRIN 81 MG TAB.CHEW GT SCH (08:51)
[2023-03-06] MEDS: AMIODARONE 100 MG GT SCH (08:55)
[2023-03-06] MEDS: METOPROLOL TARTRATE 25 MG TABLET GT SCH ×2 (08:55→20:57)
[2023-03-06] MEDS: CHLORHEXIDINE GLUCONATE 15 ML MOUTHWASH MM SCH (08:55)
[2023-03-06] MEDS: REMEDY ESSENTIAL ZINC PASTE 113 GM TP SCH (08:55)
[2023-03-06] MEDS: PHENOBARBITAL 64.8 MG TABLET GT SCH ×2 (08:55→20:57)
[2023-03-06] MEDS: DIAZEPAM 5 MG TABLET GT SCH ×2 (08:55→20:57)
[2023-03-06 20:00] VITALS: TEMP 99.1
[2023-03-06] MEDS: MULTIVIT, IRON, MIN NO. 8, FA TABLET GT SCH (20:57)
[2023-03-06] MEDS: MAGNESIUM OXIDE 400 MG TABLET GT SCH (20:57)
[2023-03-07] MEDS: NUTRISOURCE FIBER 4 GM PACKET GT SCH ×3 (01:00→16:34)
[2023-03-07] MEDS: OMEPRAZOLE 40 MG CAPSULE.DR GT SCH (06:04)
[2023-03-07] MEDS: POLYVINYL ALCOHOL OPHT DROPS 15 ML BOTTLE EACHEYE SCH ×2 (06:04→18:00)
[2023-03-07 08:00] VITALS: TEMP 97.8
[2023-03-07] MEDS: AMIODARONE 100 MG GT SCH (09:00)
[2023-03-07] MEDS: PHENOBARBITAL 64.8 MG TABLET GT SCH ×2 (09:00→21:00)
[2023-03-07] MEDS: ASPIRIN 81 MG TAB.CHEW GT SCH (09:00)
[2023-03-07] MEDS: REMEDY ESSENTIAL ZINC PASTE 113 GM TP SCH (09:00)
[2023-03-07] MEDS: levETIRAcetam 500 MG/5 ML LIQUID UDC GT SCH ×2 (09:00→21:00)
[2023-03-07] MEDS: METOPROLOL TARTRATE 25 MG TABLET GT SCH ×2 (09:00→21:00)
[2023-03-07] MEDS: HYDROGEN PEROXIDE 3% 118 ML BOTTLE TP SCH ×2 (09:00→21:00)
[2023-03-07] MEDS: DIAZEPAM 5 MG TABLET GT SCH ×2 (09:00→21:00)
[2023-03-07] MEDS: DOCUSATE SODIUM 100 MG/10 ML LIQUID UDC GT SCH ×2 (09:00→21:00)
[2023-03-07] MEDS: CHLORHEXIDINE GLUCONATE 15 ML MOUTHWASH MM SCH (09:00)
[2023-03-07] MEDS: VITAL AF 1.2 1,000 ML LIQUID GT PRN (15:39)
[2023-03-07] MEDS: MAGNESIUM OXIDE 400 MG TABLET GT SCH (21:00)
[2023-03-07] MEDS: MULTIVIT, IRON, MIN NO. 8, FA TABLET GT SCH (21:00)
[2023-03-07 22:33] VITALS: TEMP 98.1
[2023-03-08] MEDS: NUTRISOURCE FIBER 4 GM PACKET GT SCH ×3 (01:00→17:59)
[2023-03-08] MEDS: POLYVINYL ALCOHOL OPHT DROPS 15 ML BOTTLE EACHEYE SCH ×2 (06:00→17:59)
[2023-03-08] MEDS: OMEPRAZOLE 40 MG CAPSULE.DR GT SCH (06:28)
[2023-03-08] MEDS: HYDROGEN PEROXIDE 3% 118 ML BOTTLE TP SCH ×2 (08:10→20:52)
[2023-03-08 08:16] VITALS: BP 99/58; TEMP 98.9; O2SAT 100
[2023-03-08] MEDS: DOCUSATE SODIUM 100 MG/10 ML LIQUID UDC GT SCH ×2 (09:02→21:00)
[2023-03-08] MEDS: ASPIRIN 81 MG TAB.CHEW GT SCH (09:02)
[2023-03-08] MEDS: levETIRAcetam 500 MG/5 ML LIQUID UDC GT SCH ×2 (09:03→21:00)
[2023-03-08] MEDS: METOPROLOL TARTRATE 25 MG TABLET GT SCH ×2 (09:06→21:00)
[2023-03-08] MEDS: AMIODARONE 100 MG GT SCH (09:07)
[2023-03-08] MEDS: CHLORHEXIDINE GLUCONATE 15 ML MOUTHWASH MM SCH (09:10)
[2023-03-08] MEDS: DIAZEPAM 5 MG TABLET GT SCH ×2 (09:10→21:00)
[2023-03-08] MEDS: PHENOBARBITAL 64.8 MG TABLET GT SCH ×2 (09:10→21:00)
[2023-03-08] MEDS: REMEDY ESSENTIAL ZINC PASTE 113 GM TP SCH (09:10)
[2023-03-08 20:00] VITALS: TEMP 98
[2023-03-08] MEDS: MAGNESIUM OXIDE 400 MG TABLET GT SCH (21:00)
[2023-03-08] MEDS: MULTIVIT, IRON, MIN NO. 8, FA TABLET GT SCH (21:00)
[2023-03-09] MEDS: NUTRISOURCE FIBER 4 GM PACKET GT SCH ×3 (01:00→17:06)
[2023-03-09] MEDS: OMEPRAZOLE 40 MG CAPSULE.DR GT SCH (06:06)
[2023-03-09] MEDS: POLYVINYL ALCOHOL OPHT DROPS 15 ML BOTTLE EACHEYE SCH ×2 (06:06→17:06)
[2023-03-09 08:00] VITALS: TEMP 98.6
[2023-03-09] MEDS: HYDROGEN PEROXIDE 3% 118 ML BOTTLE TP SCH ×2 (09:28→19:08)
[2023-03-09] MEDS: DOCUSATE SODIUM 100 MG/10 ML LIQUID UDC GT SCH ×2 (09:54→20:11)
[2023-03-09] MEDS: levETIRAcetam 500 MG/5 ML LIQUID UDC GT SCH ×2 (09:54→20:11)
[2023-03-09] MEDS: ASPIRIN 81 MG TAB.CHEW GT SCH (09:54)
[2023-03-09] MEDS: CHLORHEXIDINE GLUCONATE 15 ML MOUTHWASH MM SCH (09:55)
[2023-03-09] MEDS: REMEDY ESSENTIAL ZINC PASTE 113 GM TP SCH (09:55)
[2023-03-09] MEDS: PHENOBARBITAL 64.8 MG TABLET GT SCH ×2 (09:55→21:00)
[2023-03-09] MEDS: DIAZEPAM 5 MG TABLET GT SCH ×2 (09:55→20:00)
[2023-03-09] MEDS: AMIODARONE 100 MG GT SCH (09:55)
[2023-03-09] MEDS: METOPROLOL TARTRATE 25 MG TABLET GT SCH ×2 (09:56→20:13)
[2023-03-09] MEDS: MULTIVIT, IRON, MIN NO. 8, FA TABLET GT SCH (20:13)
[2023-03-09] MEDS: MAGNESIUM OXIDE 400 MG TABLET GT SCH (20:13)
[2023-03-09 22:00] VITALS: TEMP 97.5
[2023-03-10] MEDS: NUTRISOURCE FIBER 4 GM PACKET GT SCH ×3 (01:00→17:02)
[2023-03-10] MEDS: OMEPRAZOLE 40 MG CAPSULE.DR GT SCH (05:29)
[2023-03-10] MEDS: POLYVINYL ALCOHOL OPHT DROPS 15 ML BOTTLE EACHEYE SCH ×2 (05:29→17:02)
[2023-03-10 07:59] VITALS: TEMP 97.3
[2023-03-10] MEDS: PHENOBARBITAL 64.8 MG TABLET GT SCH ×2 (08:18→21:00)
[2023-03-10] MEDS: AMIODARONE 100 MG GT SCH (08:18)
[2023-03-10] MEDS: levETIRAcetam 500 MG/5 ML LIQUID UDC GT SCH ×2 (08:18→21:36)
[2023-03-10] MEDS: DIAZEPAM 5 MG TABLET GT SCH ×2 (08:18→21:00)
[2023-03-10] MEDS: METOPROLOL TARTRATE 25 MG TABLET GT SCH ×2 (08:18→21:35)
[2023-03-10] MEDS: DOCUSATE SODIUM 100 MG/10 ML LIQUID UDC GT SCH ×2 (08:18→21:35)
[2023-03-10] MEDS: CHLORHEXIDINE GLUCONATE 15 ML MOUTHWASH MM SCH (08:18)
[2023-03-10] MEDS: ASPIRIN 81 MG TAB.CHEW GT SCH (08:18)
[2023-03-10] MEDS: REMEDY ESSENTIAL ZINC PASTE 113 GM TP SCH (08:19)
[2023-03-10] MEDS: HYDROGEN PEROXIDE 3% 118 ML BOTTLE TP SCH ×2 (08:34→22:10)
[2023-03-10] MEDS: VITAL AF 1.2 1,000 ML LIQUID GT PRN (14:29)
[2023-03-10 20:00] VITALS: TEMP 98
[2023-03-10] MEDS: MULTIVIT, IRON, MIN NO. 8, FA TABLET GT SCH (21:00)
[2023-03-10] MEDS: MAGNESIUM OXIDE 400 MG TABLET GT SCH (21:37)
[2023-03-11] MEDS: NUTRISOURCE FIBER 4 GM PACKET GT SCH ×3 (01:00→17:00)
[2023-03-11] MEDS: OMEPRAZOLE 40 MG CAPSULE.DR GT SCH (05:45)
[2023-03-11] MEDS: POLYVINYL ALCOHOL OPHT DROPS 15 ML BOTTLE EACHEYE SCH ×2 (05:45→18:40)
[2023-03-11 08:00] VITALS: TEMP 98
[2023-03-11] MEDS: AMIODARONE 100 MG GT SCH (09:00)
[2023-03-11] MEDS: HYDROGEN PEROXIDE 3% 118 ML BOTTLE TP SCH ×2 (09:00→23:25)
[2023-03-11] MEDS: DOCUSATE SODIUM 100 MG/10 ML LIQUID UDC GT SCH ×2 (09:00→20:32)
[2023-03-11] MEDS: REMEDY ESSENTIAL ZINC PASTE 113 GM TP SCH (09:00)
[2023-03-11] MEDS: PHENOBARBITAL 64.8 MG TABLET GT SCH ×2 (09:00→20:39)
[2023-03-11] MEDS: levETIRAcetam 500 MG/5 ML LIQUID UDC GT SCH ×2 (09:00→20:32)
[2023-03-11] MEDS: ASPIRIN 81 MG TAB.CHEW GT SCH (09:00)
[2023-03-11] MEDS: CHLORHEXIDINE GLUCONATE 15 ML MOUTHWASH MM SCH (09:00)
[2023-03-11] MEDS: METOPROLOL TARTRATE 25 MG TABLET GT SCH ×2 (09:00→20:38)
[2023-03-11] MEDS: DIAZEPAM 5 MG TABLET GT SCH ×2 (09:00→20:39)
[2023-03-11 20:24] VITALS: TEMP 98.4
[2023-03-11] MEDS: MULTIVIT, IRON, MIN NO. 8, FA TABLET GT SCH (20:39)
[2023-03-11] MEDS: MAGNESIUM OXIDE 400 MG TABLET GT SCH (20:39)
[2023-03-11] MEDS: VITAL AF 1.2 1,000 ML LIQUID GT PRN (22:37)
[2023-03-12] MEDS: NUTRISOURCE FIBER 4 GM PACKET GT SCH ×3 (01:27→17:06)
[2023-03-12] MEDS: OMEPRAZOLE 40 MG CAPSULE.DR GT SCH (06:25)
[2023-03-12] MEDS: POLYVINYL ALCOHOL OPHT DROPS 15 ML BOTTLE EACHEYE SCH ×2 (06:25→17:06)
[2023-03-12] MEDS: HYDROGEN PEROXIDE 3% 118 ML BOTTLE TP SCH ×2 (07:29→20:43)
[2023-03-12 08:00] VITALS: TEMP 98.8
[2023-03-12] MEDS: DOCUSATE SODIUM 100 MG/10 ML LIQUID UDC GT SCH ×2 (09:00→21:46)
[2023-03-12] MEDS: CHLORHEXIDINE GLUCONATE 15 ML MOUTHWASH MM SCH (09:00)
[2023-03-12] MEDS: PHENOBARBITAL 64.8 MG TABLET GT SCH ×2 (09:00→21:48)
[2023-03-12] MEDS: REMEDY ESSENTIAL ZINC PASTE 113 GM TP SCH (09:00)
[2023-03-12] MEDS: ASPIRIN 81 MG TAB.CHEW GT SCH (09:00)
[2023-03-12] MEDS: levETIRAcetam 500 MG/5 ML LIQUID UDC GT SCH ×2 (09:00→21:48)
[2023-03-12] MEDS: METOPROLOL TARTRATE 25 MG TABLET GT SCH ×2 (09:00→21:00)
[2023-03-12] MEDS: DIAZEPAM 5 MG TABLET GT SCH ×2 (09:00→21:48)
[2023-03-12] MEDS: AMIODARONE 100 MG GT SCH (09:00)
[2023-03-12 20:42] VITALS: TEMP 99
[2023-03-12] MEDS: MAGNESIUM OXIDE 400 MG TABLET GT SCH (21:48)
[2023-03-12] MEDS: MULTIVIT, IRON, MIN NO. 8, FA TABLET GT SCH (21:48)
[2023-03-13] MEDS: NUTRISOURCE FIBER 4 GM PACKET GT SCH ×3 (01:00→16:24)
[2023-03-13] MEDS: OMEPRAZOLE 40 MG CAPSULE.DR GT SCH (05:37)
[2023-03-13] MEDS: POLYVINYL ALCOHOL OPHT DROPS 15 ML BOTTLE EACHEYE SCH ×2 (05:37→06:00)
[2023-03-13] MEDS: VITAL AF 1.2 1,000 ML LIQUID GT PRN (05:45)
[2023-03-13 08:00] VITALS: TEMP 97.2
[2023-03-13] MEDS: METOPROLOL TARTRATE 25 MG TABLET GT SCH ×2 (08:12→21:04)
[2023-03-13] MEDS: DOCUSATE SODIUM 100 MG/10 ML LIQUID UDC GT SCH ×2 (08:14→20:15)
[2023-03-13] MEDS: levETIRAcetam 500 MG/5 ML LIQUID UDC GT SCH ×2 (08:14→20:15)
[2023-03-13] MEDS: ASPIRIN 81 MG TAB.CHEW GT SCH (08:14)
[2023-03-13] MEDS: CHLORHEXIDINE GLUCONATE 15 ML MOUTHWASH MM SCH (08:15)
[2023-03-13] MEDS: DIAZEPAM 5 MG TABLET GT SCH ×2 (08:15→20:17)
[2023-03-13] MEDS: AMIODARONE 100 MG GT SCH (08:15)
[2023-03-13] MEDS: PHENOBARBITAL 64.8 MG TABLET GT SCH ×2 (08:15→20:16)
[2023-03-13] MEDS: HYDROGEN PEROXIDE 3% 118 ML BOTTLE TP SCH ×2 (08:20→20:53)
[2023-03-13] MEDS: REMEDY ESSENTIAL ZINC PASTE 113 GM TP SCH (08:21)
[2023-03-13 20:10] VITALS: TEMP 98.3
[2023-03-13] MEDS: MAGNESIUM OXIDE 400 MG TABLET GT SCH (20:16)
[2023-03-13] MEDS: MULTIVIT, IRON, MIN NO. 8, FA TABLET GT SCH (20:17)
[2023-03-14] MEDS: NUTRISOURCE FIBER 4 GM PACKET GT SCH ×3 (01:37→17:02)
[2023-03-14] MEDS: POLYVINYL ALCOHOL OPHT DROPS 15 ML BOTTLE EACHEYE SCH ×2 (05:49→17:02)
[2023-03-14] MEDS: OMEPRAZOLE 40 MG CAPSULE.DR GT SCH (05:50)
[2023-03-14 08:00] VITALS: TEMP 97.8
[2023-03-14] MEDS: ASPIRIN 81 MG TAB.CHEW GT SCH (09:00)
[2023-03-14] MEDS: METOPROLOL TARTRATE 25 MG TABLET GT SCH ×2 (09:00→20:14)
[2023-03-14] MEDS: PHENOBARBITAL 64.8 MG TABLET GT SCH ×2 (09:00→20:15)
[2023-03-14] MEDS: levETIRAcetam 500 MG/5 ML LIQUID UDC GT SCH ×2 (09:00→20:13)
[2023-03-14] MEDS: REMEDY ESSENTIAL ZINC PASTE 113 GM TP SCH (09:00)
[2023-03-14] MEDS: DOCUSATE SODIUM 100 MG/10 ML LIQUID UDC GT SCH ×2 (09:00→20:12)
[2023-03-14] MEDS: AMIODARONE 100 MG GT SCH (09:00)
[2023-03-14] MEDS: DIAZEPAM 5 MG TABLET GT SCH ×2 (09:00→20:17)
[2023-03-14] MEDS: CHLORHEXIDINE GLUCONATE 15 ML MOUTHWASH MM SCH (09:00)
[2023-03-14] MEDS: HYDROGEN PEROXIDE 3% 118 ML BOTTLE TP SCH (09:00)
[2023-03-14] MEDS: VITAL AF 1.2 1,000 ML LIQUID GT PRN (17:02)
[2023-03-14] MEDS: MULTIVIT, IRON, MIN NO. 8, FA TABLET GT SCH (20:15)
[2023-03-14] MEDS: MAGNESIUM OXIDE 400 MG TABLET GT SCH (20:15)
[2023-03-14 20:25] VITALS: TEMP 98.4
[2023-03-15] MEDS: HYDROGEN PEROXIDE 3% 118 ML BOTTLE TP SCH ×3 (00:35→21:01)
[2023-03-15] MEDS: NUTRISOURCE FIBER 4 GM PACKET GT SCH ×3 (01:00→17:18)
[2023-03-15] MEDS: POLYVINYL ALCOHOL OPHT DROPS 15 ML BOTTLE EACHEYE SCH ×2 (05:28→17:18)
[2023-03-15] MEDS: OMEPRAZOLE 40 MG CAPSULE.DR GT SCH (05:28)
[2023-03-15 07:47] VITALS: TEMP 97.4
[2023-03-15] MEDS: ASPIRIN 81 MG TAB.CHEW GT SCH (08:42)
[2023-03-15] MEDS: DOCUSATE SODIUM 100 MG/10 ML LIQUID UDC GT SCH ×2 (08:42→21:58)
[2023-03-15] MEDS: levETIRAcetam 500 MG/5 ML LIQUID UDC GT SCH ×2 (08:44→21:58)
[2023-03-15] MEDS: METOPROLOL TARTRATE 25 MG TABLET GT SCH ×2 (08:45→21:59)
[2023-03-15] MEDS: AMIODARONE 100 MG GT SCH (08:46)
[2023-03-15] MEDS: DIAZEPAM 5 MG TABLET GT SCH ×2 (08:46→21:59)
[2023-03-15] MEDS: PHENOBARBITAL 64.8 MG TABLET GT SCH ×2 (08:46→21:59)
[2023-03-15] MEDS: REMEDY ESSENTIAL ZINC PASTE 113 GM TP SCH (08:47)
[2023-03-15] MEDS: CHLORHEXIDINE GLUCONATE 15 ML MOUTHWASH MM SCH (08:47)
[2023-03-15 19:56] VITALS: TEMP 96.4
[2023-03-15] MEDS: MULTIVIT, IRON, MIN NO. 8, FA TABLET GT SCH (21:59)
[2023-03-15] MEDS: MAGNESIUM OXIDE 400 MG TABLET GT SCH (21:59)
[2023-03-16] MEDS: NUTRISOURCE FIBER 4 GM PACKET GT SCH ×3 (01:16→17:27)
[2023-03-16] MEDS: POLYVINYL ALCOHOL OPHT DROPS 15 ML BOTTLE EACHEYE SCH ×2 (05:47→17:28)
[2023-03-16] MEDS: OMEPRAZOLE 40 MG CAPSULE.DR GT SCH (05:47)
[2023-03-16 07:51] VITALS: TEMP 97.5
[2023-03-16] MEDS: HYDROGEN PEROXIDE 3% 118 ML BOTTLE TP SCH ×2 (09:11→20:52)
[2023-03-16] MEDS: ASPIRIN 81 MG TAB.CHEW GT SCH (09:24)
[2023-03-16] MEDS: DOCUSATE SODIUM 100 MG/10 ML LIQUID UDC GT SCH ×2 (09:24→21:00)
[2023-03-16] MEDS: PHENOBARBITAL 64.8 MG TABLET GT SCH ×2 (09:24→21:00)
[2023-03-16] MEDS: AMIODARONE 100 MG GT SCH (09:24)
[2023-03-16] MEDS: levETIRAcetam 500 MG/5 ML LIQUID UDC GT SCH ×2 (09:24→21:00)
[2023-03-16] MEDS: METOPROLOL TARTRATE 25 MG TABLET GT SCH ×2 (09:24→21:00)
[2023-03-16] MEDS: CHLORHEXIDINE GLUCONATE 15 ML MOUTHWASH MM SCH (09:25)
[2023-03-16] MEDS: DIAZEPAM 5 MG TABLET GT SCH ×2 (09:25→21:00)
[2023-03-16] MEDS: REMEDY ESSENTIAL ZINC PASTE 113 GM TP SCH (09:34)
[2023-03-16 20:10] VITALS: TEMP 96.7
[2023-03-16] MEDS: MULTIVIT, IRON, MIN NO. 8, FA TABLET GT SCH (21:00)
[2023-03-16] MEDS: MAGNESIUM OXIDE 400 MG TABLET GT SCH (21:00)
[2023-03-17] MEDS: NUTRISOURCE FIBER 4 GM PACKET GT SCH ×3 (01:41→17:34)
[2023-03-17] MEDS: VITAL AF 1.2 1,000 ML LIQUID GT PRN (03:55)
[2023-03-17] MEDS: POLYVINYL ALCOHOL OPHT DROPS 15 ML BOTTLE EACHEYE SCH ×2 (05:28→17:34)
[2023-03-17] MEDS: OMEPRAZOLE 40 MG CAPSULE.DR GT SCH (05:28)
[2023-03-17 08:10] VITALS: TEMP 97.5
[2023-03-17] MEDS: DOCUSATE SODIUM 100 MG/10 ML LIQUID UDC GT SCH ×2 (08:35→21:45)
[2023-03-17] MEDS: levETIRAcetam 500 MG/5 ML LIQUID UDC GT SCH ×2 (08:35→21:45)
[2023-03-17] MEDS: ASPIRIN 81 MG TAB.CHEW GT SCH (08:35)
[2023-03-17] MEDS: PHENOBARBITAL 64.8 MG TABLET GT SCH ×2 (08:36→21:45)
[2023-03-17] MEDS: DIAZEPAM 5 MG TABLET GT SCH ×2 (08:36→21:45)
[2023-03-17] MEDS: AMIODARONE 100 MG GT SCH (08:36)
[2023-03-17] MEDS: METOPROLOL TARTRATE 25 MG TABLET GT SCH ×2 (08:36→21:45)
[2023-03-17] MEDS: CHLORHEXIDINE GLUCONATE 15 ML MOUTHWASH MM SCH (08:36)
[2023-03-17] MEDS: REMEDY ESSENTIAL ZINC PASTE 113 GM TP SCH (08:36)
[2023-03-17] MEDS: HYDROGEN PEROXIDE 3% 118 ML BOTTLE TP SCH ×2 (08:57→19:26)
[2023-03-17 20:16] VITALS: TEMP 97.1
[2023-03-17] MEDS: MULTIVIT, IRON, MIN NO. 8, FA TABLET GT SCH (21:45)
[2023-03-17] MEDS: MAGNESIUM OXIDE 400 MG TABLET GT SCH (21:45)
[2023-03-18] MEDS: NUTRISOURCE FIBER 4 GM PACKET GT SCH ×3 (01:06→16:58)
[2023-03-18] MEDS: POLYVINYL ALCOHOL OPHT DROPS 15 ML BOTTLE EACHEYE SCH ×2 (06:08→17:03)
[2023-03-18] MEDS: OMEPRAZOLE 40 MG CAPSULE.DR GT SCH (06:08)
[2023-03-18 07:31] VITALS: TEMP 97.7
[2023-03-18] MEDS: HYDROGEN PEROXIDE 3% 118 ML BOTTLE TP SCH ×2 (08:09→21:36)
[2023-03-18] MEDS: ASPIRIN 81 MG TAB.CHEW GT SCH (08:19)
[2023-03-18] MEDS: levETIRAcetam 500 MG/5 ML LIQUID UDC GT SCH ×2 (08:19→21:27)
[2023-03-18] MEDS: PHENOBARBITAL 64.8 MG TABLET GT SCH ×2 (08:19→21:28)
[2023-03-18] MEDS: METOPROLOL TARTRATE 25 MG TABLET GT SCH ×2 (08:19→21:28)
[2023-03-18] MEDS: DOCUSATE SODIUM 100 MG/10 ML LIQUID UDC GT SCH ×2 (08:19→21:27)
[2023-03-18] MEDS: REMEDY ESSENTIAL ZINC PASTE 113 GM TP SCH (08:19)
[2023-03-18] MEDS: AMIODARONE 100 MG GT SCH (08:19)
[2023-03-18] MEDS: DIAZEPAM 5 MG TABLET GT SCH ×2 (08:19→21:28)
[2023-03-18] MEDS: CHLORHEXIDINE GLUCONATE 15 ML MOUTHWASH MM SCH (08:19)
[2023-03-18 20:31] VITALS: TEMP 98
[2023-03-18] MEDS: MULTIVIT, IRON, MIN NO. 8, FA TABLET GT SCH (21:28)
[2023-03-18] MEDS: MAGNESIUM OXIDE 400 MG TABLET GT SCH (21:28)
[2023-03-19] MEDS: NUTRISOURCE FIBER 4 GM PACKET GT SCH ×3 (00:42→17:31)
[2023-03-19] MEDS: POLYVINYL ALCOHOL OPHT DROPS 15 ML BOTTLE EACHEYE SCH ×2 (05:57→17:31)
[2023-03-19] MEDS: OMEPRAZOLE 40 MG CAPSULE.DR GT SCH (05:57)
[2023-03-19 08:00] VITALS: TEMP 97.6
[2023-03-19] MEDS: REMEDY ESSENTIAL ZINC PASTE 113 GM TP SCH (09:00)
[2023-03-19] MEDS: HYDROGEN PEROXIDE 3% 118 ML BOTTLE TP SCH ×2 (09:02→19:16)
[2023-03-19] MEDS: ASPIRIN 81 MG TAB.CHEW GT SCH (09:46)
[2023-03-19] MEDS: DOCUSATE SODIUM 100 MG/10 ML LIQUID UDC GT SCH ×2 (09:46→21:13)
[2023-03-19] MEDS: levETIRAcetam 500 MG/5 ML LIQUID UDC GT SCH ×2 (09:47→21:13)
[2023-03-19] MEDS: METOPROLOL TARTRATE 25 MG TABLET GT SCH ×2 (09:48→21:13)
[2023-03-19] MEDS: AMIODARONE 100 MG GT SCH (09:49)
[2023-03-19] MEDS: CHLORHEXIDINE GLUCONATE 15 ML MOUTHWASH MM SCH (09:49)
[2023-03-19] MEDS: PHENOBARBITAL 64.8 MG TABLET GT SCH ×2 (09:49→21:13)
[2023-03-19] MEDS: DIAZEPAM 5 MG TABLET GT SCH ×2 (09:49→21:13)
[2023-03-19] MEDS: VITAL AF 1.2 1,000 ML LIQUID GT PRN (13:36)
[2023-03-19 20:13] VITALS: TEMP 98.3
[2023-03-19] MEDS: MULTIVIT, IRON, MIN NO. 8, FA TABLET GT SCH (21:13)
[2023-03-19] MEDS: MAGNESIUM OXIDE 400 MG TABLET GT SCH (21:13)
[2023-03-20] MEDS: NUTRISOURCE FIBER 4 GM PACKET GT SCH ×3 (01:12→17:28)
[2023-03-20] MEDS: OMEPRAZOLE 40 MG CAPSULE.DR GT SCH (05:46)
[2023-03-20] MEDS: POLYVINYL ALCOHOL OPHT DROPS 15 ML BOTTLE EACHEYE SCH ×2 (05:46→17:28)
[2023-03-20 08:00] VITALS: TEMP 97.8
[2023-03-20] MEDS: HYDROGEN PEROXIDE 3% 118 ML BOTTLE TP SCH ×2 (08:47→21:05)
[2023-03-20] MEDS: AMIODARONE 100 MG GT SCH (09:00)
[2023-03-20] MEDS: PHENOBARBITAL 64.8 MG TABLET GT SCH ×2 (09:00→21:14)
[2023-03-20] MEDS: REMEDY ESSENTIAL ZINC PASTE 113 GM TP SCH (09:00)
[2023-03-20] MEDS: DIAZEPAM 5 MG TABLET GT SCH ×2 (09:00→21:14)
[2023-03-20] MEDS: levETIRAcetam 500 MG/5 ML LIQUID UDC GT SCH ×2 (09:00→21:14)
[2023-03-20] MEDS: METOPROLOL TARTRATE 25 MG TABLET GT SCH ×2 (09:00→21:14)
[2023-03-20] MEDS: CHLORHEXIDINE GLUCONATE 15 ML MOUTHWASH MM SCH (09:00)
[2023-03-20] MEDS: ASPIRIN 81 MG TAB.CHEW GT SCH (09:59)
[2023-03-20] MEDS: DOCUSATE SODIUM 100 MG/10 ML LIQUID UDC GT SCH ×2 (09:59→21:14)
[2023-03-20] MEDS: VITAL AF 1.2 1,000 ML LIQUID GT PRN (19:22)
[2023-03-20 20:28] VITALS: TEMP 96
[2023-03-20] MEDS: MAGNESIUM OXIDE 400 MG TABLET GT SCH (21:14)
[2023-03-20] MEDS: MULTIVIT, IRON, MIN NO. 8, FA TABLET GT SCH (21:14)
[2023-03-21] MEDS: NUTRISOURCE FIBER 4 GM PACKET GT SCH ×3 (01:11→17:00)
[2023-03-21] MEDS: OMEPRAZOLE 40 MG CAPSULE.DR GT SCH (06:04)
[2023-03-21] MEDS: POLYVINYL ALCOHOL OPHT DROPS 15 ML BOTTLE EACHEYE SCH ×2 (06:04→18:07)
[2023-03-21 08:00] VITALS: TEMP 97.5
[2023-03-21] MEDS: ASPIRIN 81 MG TAB.CHEW GT SCH (08:39)
[2023-03-21] MEDS: levETIRAcetam 500 MG/5 ML LIQUID UDC GT SCH ×2 (08:41→21:16)
[2023-03-21] MEDS: DOCUSATE SODIUM 100 MG/10 ML LIQUID UDC GT SCH ×2 (08:41→21:16)
[2023-03-21] MEDS: DIAZEPAM 5 MG TABLET GT SCH ×2 (08:44→21:18)
[2023-03-21] MEDS: PHENOBARBITAL 64.8 MG TABLET GT SCH ×2 (08:45→21:17)
[2023-03-21] MEDS: METOPROLOL TARTRATE 25 MG TABLET GT SCH ×2 (08:53→21:17)
[2023-03-21] MEDS: AMIODARONE 100 MG GT SCH (08:54)
[2023-03-21] MEDS: CHLORHEXIDINE GLUCONATE 15 ML MOUTHWASH MM SCH (08:56)
[2023-03-21] MEDS: REMEDY ESSENTIAL ZINC PASTE 113 GM TP SCH (08:56)
[2023-03-21] MEDS: HYDROGEN PEROXIDE 3% 118 ML BOTTLE TP SCH ×2 (09:00→21:23)
[2023-03-21 20:24] VITALS: TEMP 98.5
[2023-03-21] MEDS: MAGNESIUM OXIDE 400 MG TABLET GT SCH (21:17)
[2023-03-21] MEDS: MULTIVIT, IRON, MIN NO. 8, FA TABLET GT SCH (21:18)
[2023-03-22] MEDS: NUTRISOURCE FIBER 4 GM PACKET GT SCH ×3 (01:00→17:43)
[2023-03-22] MEDS: VITAL AF 1.2 1,000 ML LIQUID GT PRN (03:30)
[2023-03-22] MEDS: OMEPRAZOLE 40 MG CAPSULE.DR GT SCH (06:10)
[2023-03-22] MEDS: POLYVINYL ALCOHOL OPHT DROPS 15 ML BOTTLE EACHEYE SCH ×2 (06:10→17:43)
[2023-03-22] MEDS: HYDROGEN PEROXIDE 3% 118 ML BOTTLE TP SCH ×2 (07:32→22:32)
[2023-03-22 08:03] VITALS: TEMP 97.8
[2023-03-22] MEDS: CHLORHEXIDINE GLUCONATE 15 ML MOUTHWASH MM SCH (09:00)
[2023-03-22] MEDS: DIAZEPAM 5 MG TABLET GT SCH ×2 (09:00→21:54)
[2023-03-22] MEDS: REMEDY ESSENTIAL ZINC PASTE 113 GM TP SCH (09:00)
[2023-03-22] MEDS: ASPIRIN 81 MG TAB.CHEW GT SCH (09:54)
[2023-03-22] MEDS: DOCUSATE SODIUM 100 MG/10 ML LIQUID UDC GT SCH ×2 (09:54→21:48)
[2023-03-22] MEDS: levETIRAcetam 500 MG/5 ML LIQUID UDC GT SCH ×2 (09:55→21:48)
[2023-03-22] MEDS: AMIODARONE 100 MG GT SCH (09:58)
[2023-03-22] MEDS: PHENOBARBITAL 64.8 MG TABLET GT SCH ×2 (09:58→21:54)
[2023-03-22] MEDS: METOPROLOL TARTRATE 25 MG TABLET GT SCH ×2 (09:58→21:49)
[2023-03-22 20:00] VITALS: TEMP 97.4
[2023-03-22 20:23] VITALS: TEMP 97.4
[2023-03-22] MEDS: MAGNESIUM OXIDE 400 MG TABLET GT SCH (21:48)
[2023-03-22] MEDS: MULTIVIT, IRON, MIN NO. 8, FA TABLET GT SCH (21:48)
[2023-03-23] MEDS: NUTRISOURCE FIBER 4 GM PACKET GT SCH ×3 (01:00→17:07)
[2023-03-23] MEDS: OMEPRAZOLE 40 MG CAPSULE.DR GT SCH (05:17)
[2023-03-23] MEDS: POLYVINYL ALCOHOL OPHT DROPS 15 ML BOTTLE EACHEYE SCH ×2 (05:17→17:07)
[2023-03-23] MEDS: HYDROGEN PEROXIDE 3% 118 ML BOTTLE TP SCH ×2 (07:16→21:42)
[2023-03-23 08:00] VITALS: TEMP 97.6
[2023-03-23] MEDS: PHENOBARBITAL 64.8 MG TABLET GT SCH ×2 (09:48→21:05)
[2023-03-23] MEDS: DOCUSATE SODIUM 100 MG/10 ML LIQUID UDC GT SCH ×2 (09:48→21:03)
[2023-03-23] MEDS: levETIRAcetam 500 MG/5 ML LIQUID UDC GT SCH ×2 (09:48→21:03)
[2023-03-23] MEDS: ASPIRIN 81 MG TAB.CHEW GT SCH (09:48)
[2023-03-23] MEDS: DIAZEPAM 5 MG TABLET GT SCH ×2 (09:48→21:05)
[2023-03-23] MEDS: AMIODARONE 100 MG GT SCH (09:51)
[2023-03-23] MEDS: METOPROLOL TARTRATE 25 MG TABLET GT SCH ×2 (09:51→21:04)
[2023-03-23] MEDS: CHLORHEXIDINE GLUCONATE 15 ML MOUTHWASH MM SCH (09:52)
[2023-03-23] MEDS: REMEDY ESSENTIAL ZINC PASTE 113 GM TP SCH (09:52)
[2023-03-23 11:51] VITALS: TEMP 97.6
[2023-03-23] MEDS: VITAL AF 1.2 1,000 ML LIQUID GT PRN (17:07)
[2023-03-23 20:00] VITALS: TEMP 98.7
[2023-03-23] MEDS: MAGNESIUM OXIDE 400 MG TABLET GT SCH (21:05)
[2023-03-23] MEDS: MULTIVIT, IRON, MIN NO. 8, FA TABLET GT SCH (21:05)
[2023-03-24] MEDS: NUTRISOURCE FIBER 4 GM PACKET GT SCH ×3 (01:00→16:23)
[2023-03-24] MEDS: POLYVINYL ALCOHOL OPHT DROPS 15 ML BOTTLE EACHEYE SCH ×2 (05:18→17:02)
[2023-03-24] MEDS: OMEPRAZOLE 40 MG CAPSULE.DR GT SCH (05:18)
[2023-03-24] MEDS: PHENOBARBITAL 64.8 MG TABLET GT SCH ×2 (08:35→21:00)
[2023-03-24] MEDS: levETIRAcetam 500 MG/5 ML LIQUID UDC GT SCH ×2 (08:35→21:00)
[2023-03-24] MEDS: METOPROLOL TARTRATE 25 MG TABLET GT SCH ×2 (08:35→21:00)
[2023-03-24] MEDS: AMIODARONE 100 MG GT SCH (08:35)
[2023-03-24] MEDS: ASPIRIN 81 MG TAB.CHEW GT SCH (08:35)
[2023-03-24] MEDS: DOCUSATE SODIUM 100 MG/10 ML LIQUID UDC GT SCH ×2 (08:35→21:00)
[2023-03-24] MEDS: CHLORHEXIDINE GLUCONATE 15 ML MOUTHWASH MM SCH (08:36)
[2023-03-24] MEDS: REMEDY ESSENTIAL ZINC PASTE 113 GM TP SCH (08:36)
[2023-03-24] MEDS: DIAZEPAM 5 MG TABLET GT SCH ×2 (08:36→21:00)
[2023-03-24] MEDS: HYDROGEN PEROXIDE 3% 118 ML BOTTLE TP SCH ×2 (09:00→21:43)
[2023-03-24 13:36] VITALS: TEMP 97.8
[2023-03-24] MEDS: MAGNESIUM OXIDE 400 MG TABLET GT SCH (21:00)
[2023-03-24] MEDS: MULTIVIT, IRON, MIN NO. 8, FA TABLET GT SCH (21:00)
[2023-03-25] MEDS: NUTRISOURCE FIBER 4 GM PACKET GT SCH ×3 (01:00→17:01)
[2023-03-25] MEDS: POLYVINYL ALCOHOL OPHT DROPS 15 ML BOTTLE EACHEYE SCH ×2 (06:16→17:01)
[2023-03-25] MEDS: OMEPRAZOLE 40 MG CAPSULE.DR GT SCH (06:16)
[2023-03-25] MEDS: ASPIRIN 81 MG TAB.CHEW GT SCH (08:52)
[2023-03-25] MEDS: DOCUSATE SODIUM 100 MG/10 ML LIQUID UDC GT SCH ×2 (08:52→20:41)
[2023-03-25] MEDS: METOPROLOL TARTRATE 25 MG TABLET GT SCH ×2 (08:53→20:42)
[2023-03-25] MEDS: levETIRAcetam 500 MG/5 ML LIQUID UDC GT SCH ×2 (08:53→20:42)
[2023-03-25] MEDS: CHLORHEXIDINE GLUCONATE 15 ML MOUTHWASH MM SCH (08:54)
[2023-03-25] MEDS: DIAZEPAM 5 MG TABLET GT SCH ×2 (08:54→20:43)
[2023-03-25] MEDS: PHENOBARBITAL 64.8 MG TABLET GT SCH ×2 (08:54→20:42)
[2023-03-25] MEDS: REMEDY ESSENTIAL ZINC PASTE 113 GM TP SCH (08:54)
[2023-03-25] MEDS: AMIODARONE 100 MG GT SCH (08:54)
[2023-03-25 09:27] VITALS: TEMP 98
[2023-03-25] MEDS: HYDROGEN PEROXIDE 3% 118 ML BOTTLE TP SCH ×2 (09:31→19:23)
[2023-03-25 20:00] VITALS: TEMP 97.8
[2023-03-25] MEDS: MAGNESIUM OXIDE 400 MG TABLET GT SCH (20:43)
[2023-03-25] MEDS: MULTIVIT, IRON, MIN NO. 8, FA TABLET GT SCH (20:43)
[2023-03-26] MEDS: NUTRISOURCE FIBER 4 GM PACKET GT SCH ×3 (01:13→16:19)
[2023-03-26] MEDS: POLYVINYL ALCOHOL OPHT DROPS 15 ML BOTTLE EACHEYE SCH ×2 (06:45→18:43)
[2023-03-26] MEDS: OMEPRAZOLE 40 MG CAPSULE.DR GT SCH (06:45)
[2023-03-26] MEDS: METOPROLOL TARTRATE 25 MG TABLET GT SCH ×2 (09:00→20:29)
[2023-03-26 09:08] VITALS: TEMP 98
[2023-03-26] MEDS: HYDROGEN PEROXIDE 3% 118 ML BOTTLE TP SCH ×2 (09:30→19:41)
[2023-03-26] MEDS: DOCUSATE SODIUM 100 MG/10 ML LIQUID UDC GT SCH ×2 (09:45→20:28)
[2023-03-26] MEDS: levETIRAcetam 500 MG/5 ML LIQUID UDC GT SCH ×2 (09:47→20:29)
[2023-03-26] MEDS: AMIODARONE 100 MG GT SCH (09:50)
[2023-03-26] MEDS: PHENOBARBITAL 64.8 MG TABLET GT SCH ×2 (09:50→20:29)
[2023-03-26] MEDS: DIAZEPAM 5 MG TABLET GT SCH ×2 (09:51→20:29)
[2023-03-26] MEDS: CHLORHEXIDINE GLUCONATE 15 ML MOUTHWASH MM SCH (09:51)
[2023-03-26] MEDS: REMEDY ESSENTIAL ZINC PASTE 113 GM TP SCH (09:52)
[2023-03-26] MEDS: ASPIRIN 81 MG TAB.CHEW GT SCH (09:52)
[2023-03-26] MEDS: VITAL AF 1.2 1,000 ML LIQUID GT PRN (18:43)
[2023-03-26 20:00] VITALS: TEMP 100.4
[2023-03-26] MEDS: MULTIVIT, IRON, MIN NO. 8, FA TABLET GT SCH (20:29)
[2023-03-26] MEDS: MAGNESIUM OXIDE 400 MG TABLET GT SCH (20:29)
[2023-03-26] MEDS: ACETAMINOPHEN 650 MG/20 ML UDC- SA PATIENTS-FEVER ONLY GT PRN (21:50)
[2023-03-26 22:52] VITALS: TEMP 99
[2023-03-27] MEDS: NUTRISOURCE FIBER 4 GM PACKET GT SCH ×3 (01:13→17:18)
[2023-03-27] MEDS: POLYVINYL ALCOHOL OPHT DROPS 15 ML BOTTLE EACHEYE SCH ×2 (06:22→17:18)
[2023-03-27] MEDS: OMEPRAZOLE 40 MG CAPSULE.DR GT SCH (06:22)
[2023-03-27 06:43] VITALS: TEMP 98.5
[2023-03-27 08:00] VITALS: TEMP 98
[2023-03-27] MEDS: HYDROGEN PEROXIDE 3% 118 ML BOTTLE TP SCH ×2 (09:00→23:47)
[2023-03-27] MEDS: DOCUSATE SODIUM 100 MG/10 ML LIQUID UDC GT SCH ×2 (09:05→21:03)
[2023-03-27] MEDS: ASPIRIN 81 MG TAB.CHEW GT SCH (09:05)
[2023-03-27] MEDS: levETIRAcetam 500 MG/5 ML LIQUID UDC GT SCH ×2 (09:06→21:03)
[2023-03-27] MEDS: METOPROLOL TARTRATE 25 MG TABLET GT SCH ×2 (09:09→21:00)
[2023-03-27] MEDS: AMIODARONE 100 MG GT SCH (09:09)
[2023-03-27] MEDS: PHENOBARBITAL 64.8 MG TABLET GT SCH ×2 (09:09→21:05)
[2023-03-27] MEDS: DIAZEPAM 5 MG TABLET GT SCH ×2 (09:09→21:06)
[2023-03-27] MEDS: CHLORHEXIDINE GLUCONATE 15 ML MOUTHWASH MM SCH (09:10)
[2023-03-27] MEDS: REMEDY ESSENTIAL ZINC PASTE 113 GM TP SCH (09:10)
[2023-03-27 20:00] VITALS: TEMP 99.4
[2023-03-27] MEDS: MAGNESIUM OXIDE 400 MG TABLET GT SCH (21:05)
[2023-03-27] MEDS: MULTIVIT, IRON, MIN NO. 8, FA TABLET GT SCH (21:05)
[2023-03-27] MEDS: ACETAMINOPHEN 650 MG/20 ML UDC- SA PATIENTS-PAIN ONLY GT PRN (21:07)
[2023-03-28] MEDS: NUTRISOURCE FIBER 4 GM PACKET GT SCH ×3 (00:40→17:34)
[2023-03-28] MEDS: OMEPRAZOLE 40 MG CAPSULE.DR GT SCH (05:54)
[2023-03-28] MEDS: POLYVINYL ALCOHOL OPHT DROPS 15 ML BOTTLE EACHEYE SCH ×2 (05:54→17:34)
[2023-03-28 07:52] VITALS: TEMP 98.6
[2023-03-28] MEDS: HYDROGEN PEROXIDE 3% 118 ML BOTTLE TP SCH ×2 (09:00→22:39)
[2023-03-28] MEDS: levETIRAcetam 500 MG/5 ML LIQUID UDC GT SCH ×2 (09:30→21:00)
[2023-03-28] MEDS: DOCUSATE SODIUM 100 MG/10 ML LIQUID UDC GT SCH ×2 (09:30→21:00)
[2023-03-28] MEDS: ASPIRIN 81 MG TAB.CHEW GT SCH (09:30)
[2023-03-28] MEDS: REMEDY ESSENTIAL ZINC PASTE 113 GM TP SCH (09:31)
[2023-03-28] MEDS: PHENOBARBITAL 64.8 MG TABLET GT SCH ×2 (09:31→21:00)
[2023-03-28] MEDS: METOPROLOL TARTRATE 25 MG TABLET GT SCH ×2 (09:31→21:00)
[2023-03-28] MEDS: AMIODARONE 100 MG GT SCH (09:31)
[2023-03-28] MEDS: CHLORHEXIDINE GLUCONATE 15 ML MOUTHWASH MM SCH (09:31)
[2023-03-28] MEDS: DIAZEPAM 5 MG TABLET GT SCH ×2 (09:31→21:00)
[2023-03-28 20:00] VITALS: TEMP 99.1
[2023-03-28] MEDS: MAGNESIUM OXIDE 400 MG TABLET GT SCH (21:00)
[2023-03-28] MEDS: MULTIVIT, IRON, MIN NO. 8, FA TABLET GT SCH (21:00)
[2023-03-29] MEDS: NUTRISOURCE FIBER 4 GM PACKET GT SCH ×3 (01:00→17:46)
[2023-03-29] MEDS: POLYVINYL ALCOHOL OPHT DROPS 15 ML BOTTLE EACHEYE SCH ×2 (05:21→17:47)
[2023-03-29] MEDS: OMEPRAZOLE 40 MG CAPSULE.DR GT SCH (05:21)
[2023-03-29 07:53] VITALS: TEMP 98.1
[2023-03-29] MEDS: ASPIRIN 81 MG TAB.CHEW GT SCH (08:55)
[2023-03-29] MEDS: DOCUSATE SODIUM 100 MG/10 ML LIQUID UDC GT SCH ×2 (08:55→21:38)
[2023-03-29] MEDS: levETIRAcetam 500 MG/5 ML LIQUID UDC GT SCH ×2 (08:55→21:38)
[2023-03-29] MEDS: CHLORHEXIDINE GLUCONATE 15 ML MOUTHWASH MM SCH (08:56)
[2023-03-29] MEDS: PHENOBARBITAL 64.8 MG TABLET GT SCH ×2 (08:56→21:39)
[2023-03-29] MEDS: DIAZEPAM 5 MG TABLET GT SCH ×2 (08:56→21:39)
[2023-03-29] MEDS: AMIODARONE 100 MG GT SCH (08:56)
[2023-03-29] MEDS: REMEDY ESSENTIAL ZINC PASTE 113 GM TP SCH (08:56)
[2023-03-29] MEDS: VITAL AF 1.2 1,000 ML LIQUID GT PRN (08:56)
[2023-03-29] MEDS: METOPROLOL TARTRATE 25 MG TABLET GT SCH ×2 (08:56→21:39)
[2023-03-29] MEDS: HYDROGEN PEROXIDE 3% 118 ML BOTTLE TP SCH ×2 (09:50→21:16)
[2023-03-29 20:00] VITALS: TEMP 98.7
[2023-03-29] MEDS: MAGNESIUM OXIDE 400 MG TABLET GT SCH (21:39)
[2023-03-29] MEDS: MULTIVIT, IRON, MIN NO. 8, FA TABLET GT SCH (21:39)
[2023-03-30] MEDS: NUTRISOURCE FIBER 4 GM PACKET GT SCH ×3 (01:00→18:00)
[2023-03-30] MEDS: OMEPRAZOLE 40 MG CAPSULE.DR GT SCH (06:03)
[2023-03-30] MEDS: POLYVINYL ALCOHOL OPHT DROPS 15 ML BOTTLE EACHEYE SCH ×2 (06:03→18:00)
[2023-03-30] MEDS: HYDROGEN PEROXIDE 3% 118 ML BOTTLE TP SCH ×2 (07:15→20:55)
[2023-03-30 08:00] VITALS: TEMP 98
[2023-03-30] MEDS: METOPROLOL TARTRATE 25 MG TABLET GT SCH ×2 (09:00→21:00)
[2023-03-30] MEDS: DOCUSATE SODIUM 100 MG/10 ML LIQUID UDC GT SCH ×2 (09:58→21:00)
[2023-03-30] MEDS: ASPIRIN 81 MG TAB.CHEW GT SCH (09:58)
[2023-03-30] MEDS: levETIRAcetam 500 MG/5 ML LIQUID UDC GT SCH ×2 (09:58→21:00)
[2023-03-30] MEDS: VITAL AF 1.2 1,000 ML LIQUID GT PRN (09:59)
[2023-03-30] MEDS: DIAZEPAM 5 MG TABLET GT SCH ×2 (09:59→21:00)
[2023-03-30] MEDS: REMEDY ESSENTIAL ZINC PASTE 113 GM TP SCH (09:59)
[2023-03-30] MEDS: PHENOBARBITAL 64.8 MG TABLET GT SCH ×2 (09:59→21:00)
[2023-03-30] MEDS: CHLORHEXIDINE GLUCONATE 15 ML MOUTHWASH MM SCH (09:59)
[2023-03-30] MEDS: AMIODARONE 100 MG GT SCH (09:59)
[2023-03-30 20:00] VITALS: TEMP 97.6
[2023-03-30] MEDS: MAGNESIUM OXIDE 400 MG TABLET GT SCH (21:00)
[2023-03-30] MEDS: MULTIVIT, IRON, MIN NO. 8, FA TABLET GT SCH (21:00)
[2023-03-31] MEDS: NUTRISOURCE FIBER 4 GM PACKET GT SCH ×3 (01:47→17:09)
[2023-03-31] MEDS: POLYVINYL ALCOHOL OPHT DROPS 15 ML BOTTLE EACHEYE SCH ×2 (06:09→17:09)
[2023-03-31] MEDS: OMEPRAZOLE 40 MG CAPSULE.DR GT SCH (06:09)
[2023-03-31 07:49] VITALS: TEMP 97.7
[2023-03-31 07:54] VITALS: TEMP 98.6
[2023-03-31] MEDS: HYDROGEN PEROXIDE 3% 118 ML BOTTLE TP SCH ×2 (08:21→21:33)
[2023-03-31] MEDS: DIAZEPAM 5 MG TABLET GT SCH ×2 (09:05→21:32)
[2023-03-31] MEDS: PHENOBARBITAL 64.8 MG TABLET GT SCH ×2 (09:05→21:32)
[2023-03-31] MEDS: levETIRAcetam 500 MG/5 ML LIQUID UDC GT SCH ×2 (09:05→21:32)
[2023-03-31] MEDS: REMEDY ESSENTIAL ZINC PASTE 113 GM TP SCH (09:05)
[2023-03-31] MEDS: ASPIRIN 81 MG TAB.CHEW GT SCH (09:05)
[2023-03-31] MEDS: AMIODARONE 100 MG GT SCH (09:05)
[2023-03-31] MEDS: DOCUSATE SODIUM 100 MG/10 ML LIQUID UDC GT SCH ×2 (09:05→21:32)
[2023-03-31] MEDS: CHLORHEXIDINE GLUCONATE 15 ML MOUTHWASH MM SCH (09:05)
[2023-03-31] MEDS: METOPROLOL TARTRATE 25 MG TABLET GT SCH ×2 (09:05→21:32)
[2023-03-31] MEDS: MULTIVIT, IRON, MIN NO. 8, FA TABLET GT SCH (21:32)
[2023-03-31] MEDS: MAGNESIUM OXIDE 400 MG TABLET GT SCH (21:32)
[2023-04-01] MEDS: NUTRISOURCE FIBER 4 GM PACKET GT SCH ×3 (00:08→17:22)
[2023-04-01] MEDS: POLYVINYL ALCOHOL OPHT DROPS 15 ML BOTTLE EACHEYE SCH ×2 (05:48→17:22)
[2023-04-01] MEDS: OMEPRAZOLE 40 MG CAPSULE.DR GT SCH (05:48)
[2023-04-01 07:26] VITALS: TEMP 99
[2023-04-01] MEDS: HYDROGEN PEROXIDE 3% 118 ML BOTTLE TP SCH ×2 (07:49→19:08)
[2023-04-01 08:00] VITALS: TEMP 98
[2023-04-01] MEDS: CHLORHEXIDINE GLUCONATE 15 ML MOUTHWASH MM SCH (08:40)
[2023-04-01] MEDS: REMEDY ESSENTIAL ZINC PASTE 113 GM TP SCH (08:40)
[2023-04-01] MEDS: levETIRAcetam 500 MG/5 ML LIQUID UDC GT SCH ×2 (08:40→21:26)
[2023-04-01] MEDS: AMIODARONE 100 MG GT SCH (08:40)
[2023-04-01] MEDS: DIAZEPAM 5 MG TABLET GT SCH ×2 (08:40→21:27)
[2023-04-01] MEDS: DOCUSATE SODIUM 100 MG/10 ML LIQUID UDC GT SCH ×2 (08:40→21:26)
[2023-04-01] MEDS: PHENOBARBITAL 64.8 MG TABLET GT SCH ×2 (08:40→21:27)
[2023-04-01] MEDS: METOPROLOL TARTRATE 25 MG TABLET GT SCH ×2 (08:40→21:27)
[2023-04-01] MEDS: ASPIRIN 81 MG TAB.CHEW GT SCH (08:40)
[2023-04-01 11:25] VITALS: O2SAT 99
[2023-04-01 19:53] VITALS: TEMP 97.5
[2023-04-01] MEDS: MAGNESIUM OXIDE 400 MG TABLET GT SCH (21:27)
[2023-04-01] MEDS: MULTIVIT, IRON, MIN NO. 8, FA TABLET GT SCH (21:27)
[2023-04-02] MEDS: NUTRISOURCE FIBER 4 GM PACKET GT SCH ×3 (01:00→17:25)
[2023-04-02] MEDS: OMEPRAZOLE 40 MG CAPSULE.DR GT SCH (05:27)
[2023-04-02] MEDS: POLYVINYL ALCOHOL OPHT DROPS 15 ML BOTTLE EACHEYE SCH ×2 (05:27→17:25)
[2023-04-02 08:00] VITALS: BP 102/58; TEMP 97.8; O2SAT 100
[2023-04-02] MEDS: levETIRAcetam 500 MG/5 ML LIQUID UDC GT SCH ×2 (08:22→20:28)
[2023-04-02] MEDS: DOCUSATE SODIUM 100 MG/10 ML LIQUID UDC GT SCH ×2 (08:22→20:27)
[2023-04-02] MEDS: ASPIRIN 81 MG TAB.CHEW GT SCH (08:22)
[2023-04-02] MEDS: DIAZEPAM 5 MG TABLET GT SCH ×2 (08:23→20:31)
[2023-04-02] MEDS: PHENOBARBITAL 64.8 MG TABLET GT SCH ×2 (08:23→20:30)
[2023-04-02] MEDS: AMIODARONE 100 MG GT SCH (08:23)
[2023-04-02] MEDS: METOPROLOL TARTRATE 25 MG TABLET GT SCH ×2 (08:23→20:29)
[2023-04-02] MEDS: CHLORHEXIDINE GLUCONATE 15 ML MOUTHWASH MM SCH (08:23)
[2023-04-02] MEDS: REMEDY ESSENTIAL ZINC PASTE 113 GM TP SCH (08:23)
[2023-04-02] MEDS: HYDROGEN PEROXIDE 3% 118 ML BOTTLE TP SCH ×2 (09:00→21:07)
[2023-04-02 19:48] VITALS: TEMP 98.1
[2023-04-02] MEDS: MAGNESIUM OXIDE 400 MG TABLET GT SCH (20:30)
[2023-04-02] MEDS: MULTIVIT, IRON, MIN NO. 8, FA TABLET GT SCH (20:30)
[2023-04-03] MEDS: NUTRISOURCE FIBER 4 GM PACKET GT SCH ×3 (01:00→16:42)
[2023-04-03] MEDS: POLYVINYL ALCOHOL OPHT DROPS 15 ML BOTTLE EACHEYE SCH ×2 (05:11→18:04)
[2023-04-03] MEDS: OMEPRAZOLE 40 MG CAPSULE.DR GT SCH (05:11)
[2023-04-03 08:00] VITALS: TEMP 98
[2023-04-03] MEDS: HYDROGEN PEROXIDE 3% 118 ML BOTTLE TP SCH ×2 (08:13→21:45)
[2023-04-03] MEDS: ASPIRIN 81 MG TAB.CHEW GT SCH (08:39)
[2023-04-03] MEDS: METOPROLOL TARTRATE 25 MG TABLET GT SCH ×2 (08:40→20:29)
[2023-04-03] MEDS: DOCUSATE SODIUM 100 MG/10 ML LIQUID UDC GT SCH ×2 (08:40→20:20)
[2023-04-03] MEDS: levETIRAcetam 500 MG/5 ML LIQUID UDC GT SCH ×2 (08:40→20:27)
[2023-04-03] MEDS: PHENOBARBITAL 64.8 MG TABLET GT SCH ×2 (08:41→20:30)
[2023-04-03] MEDS: AMIODARONE 100 MG GT SCH (08:41)
[2023-04-03] MEDS: REMEDY ESSENTIAL ZINC PASTE 113 GM TP SCH (08:42)
[2023-04-03] MEDS: CHLORHEXIDINE GLUCONATE 15 ML MOUTHWASH MM SCH (08:42)
[2023-04-03] MEDS: DIAZEPAM 5 MG TABLET GT SCH ×2 (08:42→20:32)
[2023-04-03 20:00] VITALS: TEMP 98.1
[2023-04-03] MEDS: MAGNESIUM OXIDE 400 MG TABLET GT SCH (20:30)
[2023-04-03] MEDS: MULTIVIT, IRON, MIN NO. 8, FA TABLET GT SCH (20:30)
[2023-04-04] MEDS: NUTRISOURCE FIBER 4 GM PACKET GT SCH ×3 (01:00→17:39)
[2023-04-04] MEDS: OMEPRAZOLE 40 MG CAPSULE.DR GT SCH (06:05)
[2023-04-04] MEDS: POLYVINYL ALCOHOL OPHT DROPS 15 ML BOTTLE EACHEYE SCH ×2 (06:05→17:39)
[2023-04-04 08:00] VITALS: TEMP 97.6
[2023-04-04] MEDS: ASPIRIN 81 MG TAB.CHEW GT SCH (08:38)
[2023-04-04] MEDS: levETIRAcetam 500 MG/5 ML LIQUID UDC GT SCH ×2 (08:39→20:27)
[2023-04-04] MEDS: DOCUSATE SODIUM 100 MG/10 ML LIQUID UDC GT SCH ×2 (08:39→20:27)
[2023-04-04] MEDS: AMIODARONE 100 MG GT SCH (08:40)
[2023-04-04] MEDS: DIAZEPAM 5 MG TABLET GT SCH ×2 (08:40→20:30)
[2023-04-04] MEDS: METOPROLOL TARTRATE 25 MG TABLET GT SCH ×2 (08:40→20:28)
[2023-04-04] MEDS: PHENOBARBITAL 64.8 MG TABLET GT SCH ×2 (08:40→20:29)
[2023-04-04] MEDS: CHLORHEXIDINE GLUCONATE 15 ML MOUTHWASH MM SCH (08:41)
[2023-04-04] MEDS: REMEDY ESSENTIAL ZINC PASTE 113 GM TP SCH (08:42)
[2023-04-04] MEDS: HYDROGEN PEROXIDE 3% 118 ML BOTTLE TP SCH ×2 (09:00→20:39)
[2023-04-04] MEDS: VITAL AF 1.2 1,000 ML LIQUID GT PRN (18:55)
[2023-04-04 19:52] VITALS: TEMP 98.1
[2023-04-04] MEDS: MAGNESIUM OXIDE 400 MG TABLET GT SCH (20:29)
[2023-04-04] MEDS: MULTIVIT, IRON, MIN NO. 8, FA TABLET GT SCH (20:30)
[2023-04-05] MEDS: NUTRISOURCE FIBER 4 GM PACKET GT SCH ×3 (01:00→16:48)
[2023-04-05] MEDS: POLYVINYL ALCOHOL OPHT DROPS 15 ML BOTTLE EACHEYE SCH ×2 (06:28→17:04)
[2023-04-05] MEDS: OMEPRAZOLE 40 MG CAPSULE.DR GT SCH (06:28)
[2023-04-05 08:00] VITALS: TEMP 97.6
[2023-04-05] MEDS: HYDROGEN PEROXIDE 3% 118 ML BOTTLE TP SCH ×2 (09:00→21:03)
[2023-04-05] MEDS: ASPIRIN 81 MG TAB.CHEW GT SCH (09:24)
[2023-04-05] MEDS: DOCUSATE SODIUM 100 MG/10 ML LIQUID UDC GT SCH ×2 (09:24→20:31)
[2023-04-05] MEDS: levETIRAcetam 500 MG/5 ML LIQUID UDC GT SCH ×2 (09:25→20:31)
[2023-04-05] MEDS: PHENOBARBITAL 64.8 MG TABLET GT SCH ×2 (09:26→20:56)
[2023-04-05] MEDS: METOPROLOL TARTRATE 25 MG TABLET GT SCH ×2 (09:26→20:31)
[2023-04-05] MEDS: DIAZEPAM 5 MG TABLET GT SCH ×2 (09:26→20:44)
[2023-04-05] MEDS: AMIODARONE 100 MG GT SCH (09:26)
[2023-04-05] MEDS: REMEDY ESSENTIAL ZINC PASTE 113 GM TP SCH (09:27)
[2023-04-05] MEDS: CHLORHEXIDINE GLUCONATE 15 ML MOUTHWASH MM SCH (09:27)
[2023-04-05 20:00] VITALS: TEMP 98.1
[2023-04-05] MEDS: MULTIVIT, IRON, MIN NO. 8, FA TABLET GT SCH (20:32)
[2023-04-05] MEDS: MAGNESIUM OXIDE 400 MG TABLET GT SCH (20:32)
[2023-04-06] MEDS: NUTRISOURCE FIBER 4 GM PACKET GT SCH ×3 (01:00→17:12)
[2023-04-06] MEDS: OMEPRAZOLE 40 MG CAPSULE.DR GT SCH (05:00)
[2023-04-06] MEDS: POLYVINYL ALCOHOL OPHT DROPS 15 ML BOTTLE EACHEYE SCH ×2 (05:00→17:12)
[2023-04-06 08:00] VITALS: TEMP 98.1
[2023-04-06] MEDS: ASPIRIN 81 MG TAB.CHEW GT SCH (08:57)
[2023-04-06] MEDS: CHLORHEXIDINE GLUCONATE 15 ML MOUTHWASH MM SCH (08:57)
[2023-04-06] MEDS: DOCUSATE SODIUM 100 MG/10 ML LIQUID UDC GT SCH ×2 (08:57→20:49)
[2023-04-06] MEDS: levETIRAcetam 500 MG/5 ML LIQUID UDC GT SCH ×2 (08:57→20:49)
[2023-04-06] MEDS: REMEDY ESSENTIAL ZINC PASTE 113 GM TP SCH (08:57)
[2023-04-06] MEDS: AMIODARONE 100 MG GT SCH (08:57)
[2023-04-06] MEDS: METOPROLOL TARTRATE 25 MG TABLET GT SCH ×2 (08:57→20:51)
[2023-04-06] MEDS: DIAZEPAM 5 MG TABLET GT SCH ×2 (08:57→21:07)
[2023-04-06] MEDS: PHENOBARBITAL 64.8 MG TABLET GT SCH ×2 (08:57→21:07)
[2023-04-06] MEDS: HYDROGEN PEROXIDE 3% 118 ML BOTTLE TP SCH ×2 (09:00→23:56)
[2023-04-06] MEDS: MAGNESIUM OXIDE 400 MG TABLET GT SCH (20:50)
[2023-04-06] MEDS: MULTIVIT, IRON, MIN NO. 8, FA TABLET GT SCH (20:50)
[2023-04-07] MEDS: NUTRISOURCE FIBER 4 GM PACKET GT SCH ×3 (01:00→17:10)
[2023-04-07] MEDS: POLYVINYL ALCOHOL OPHT DROPS 15 ML BOTTLE EACHEYE SCH ×2 (05:01→17:10)
[2023-04-07] MEDS: VITAL AF 1.2 1,000 ML LIQUID GT PRN (05:02)
[2023-04-07] MEDS: OMEPRAZOLE 40 MG CAPSULE.DR GT SCH (05:02)
[2023-04-07] MEDS: HYDROGEN PEROXIDE 3% 118 ML BOTTLE TP SCH ×2 (07:53→23:41)
[2023-04-07 08:03] VITALS: TEMP 98.4
[2023-04-07] MEDS: REMEDY ESSENTIAL ZINC PASTE 113 GM TP SCH (08:38)
[2023-04-07] MEDS: ASPIRIN 81 MG TAB.CHEW GT SCH (08:38)
[2023-04-07] MEDS: PHENOBARBITAL 64.8 MG TABLET GT SCH ×2 (08:38→20:38)
[2023-04-07] MEDS: levETIRAcetam 500 MG/5 ML LIQUID UDC GT SCH ×2 (08:38→20:23)
[2023-04-07] MEDS: CHLORHEXIDINE GLUCONATE 15 ML MOUTHWASH MM SCH (08:38)
[2023-04-07] MEDS: DOCUSATE SODIUM 100 MG/10 ML LIQUID UDC GT SCH ×2 (08:38→20:23)
[2023-04-07] MEDS: DIAZEPAM 5 MG TABLET GT SCH ×2 (08:38→20:39)
[2023-04-07] MEDS: AMIODARONE 100 MG GT SCH (08:38)
[2023-04-07] MEDS: METOPROLOL TARTRATE 25 MG TABLET GT SCH ×2 (08:39→20:24)
[2023-04-07 20:00] VITALS: TEMP 98.8
[2023-04-07] MEDS: MAGNESIUM OXIDE 400 MG TABLET GT SCH (20:23)
[2023-04-07] MEDS: MULTIVIT, IRON, MIN NO. 8, FA TABLET GT SCH (20:23)
[2023-04-08] MEDS: NUTRISOURCE FIBER 4 GM PACKET GT SCH ×3 (01:00→17:05)
[2023-04-08] MEDS: POLYVINYL ALCOHOL OPHT DROPS 15 ML BOTTLE EACHEYE SCH ×2 (06:54→17:05)
[2023-04-08] MEDS: OMEPRAZOLE 40 MG CAPSULE.DR GT SCH (06:54)
[2023-04-08] MEDS: HYDROGEN PEROXIDE 3% 118 ML BOTTLE TP SCH ×2 (07:08→19:13)
[2023-04-08] MEDS: ASPIRIN 81 MG TAB.CHEW GT SCH (08:29)
[2023-04-08] MEDS: DOCUSATE SODIUM 100 MG/10 ML LIQUID UDC GT SCH ×2 (08:29→21:55)
[2023-04-08] MEDS: levETIRAcetam 500 MG/5 ML LIQUID UDC GT SCH ×2 (08:30→21:55)
[2023-04-08] MEDS: AMIODARONE 100 MG GT SCH (08:31)
[2023-04-08] MEDS: PHENOBARBITAL 64.8 MG TABLET GT SCH ×2 (08:31→21:55)
[2023-04-08] MEDS: METOPROLOL TARTRATE 25 MG TABLET GT SCH ×2 (08:31→21:55)
[2023-04-08] MEDS: DIAZEPAM 5 MG TABLET GT SCH ×2 (08:32→21:55)
[2023-04-08] MEDS: CHLORHEXIDINE GLUCONATE 15 ML MOUTHWASH MM SCH (08:32)
[2023-04-08] MEDS: REMEDY ESSENTIAL ZINC PASTE 113 GM TP SCH (08:33)
[2023-04-08 09:21] VITALS: TEMP 97.8
[2023-04-08 18:41] LABS: *BLOOD, URINE 3+ (NEGATIVE); *CLARITY,URINE SLIGHTLY CLOUDY (CLEAR); *COLOR,URINE RED (YELLOW); *KETONES,URINE NEGATIVE (NEGATIVE); *UROBILINOGEN,URINE 0.2 E.U./dl (NORMAL); LEUKOCYTE ESTERASE ,URINE 3+ (NEGATIVE); NITRITE, URINE NEGATIVE (NEGATIVE); PH,URINE 8.5 (5.0-8.0); UGLUCOSE NEGATIVE (NEGATIVE)
[2023-04-08 18:42] LABS: *BILIRUBIN,URIN 1+ (NEGATIVE); *PROTEIN,URINE 3+ (NEGATIVE)
[2023-04-08 20:00] VITALS: TEMP 99
[2023-04-08] MEDS: MULTIVIT, IRON, MIN NO. 8, FA TABLET GT SCH (21:55)
[2023-04-08] MEDS: MAGNESIUM OXIDE 400 MG TABLET GT SCH (21:55)
[2023-04-09] MEDS: NUTRISOURCE FIBER 4 GM PACKET GT SCH ×3 (01:00→17:06)
[2023-04-09 04:24] VITALS: TEMP 98.6
[2023-04-09] MEDS: POLYVINYL ALCOHOL OPHT DROPS 15 ML BOTTLE EACHEYE SCH ×2 (06:15→17:06)
[2023-04-09] MEDS: OMEPRAZOLE 40 MG CAPSULE.DR GT SCH (06:15)
[2023-04-09] MEDS: HYDROGEN PEROXIDE 3% 118 ML BOTTLE TP SCH ×2 (08:04→23:09)
[2023-04-09] MEDS: METOPROLOL TARTRATE 25 MG TABLET GT SCH ×2 (09:00→21:08)
[2023-04-09 09:08] VITALS: TEMP 97.8
[2023-04-09] MEDS: levETIRAcetam 500 MG/5 ML LIQUID UDC GT SCH ×2 (09:36→21:07)
[2023-04-09] MEDS: DOCUSATE SODIUM 100 MG/10 ML LIQUID UDC GT SCH ×2 (09:37→21:07)
[2023-04-09] MEDS: AMIODARONE 100 MG GT SCH (09:49)
[2023-04-09] MEDS: PHENOBARBITAL 64.8 MG TABLET GT SCH ×2 (09:49→21:08)
[2023-04-09] MEDS: DIAZEPAM 5 MG TABLET GT SCH ×2 (09:49→21:08)
[2023-04-09] MEDS: CHLORHEXIDINE GLUCONATE 15 ML MOUTHWASH MM SCH (09:49)
[2023-04-09] MEDS: REMEDY ESSENTIAL ZINC PASTE 113 GM TP SCH (09:49)
[2023-04-09] MEDS: ASPIRIN 81 MG TAB.CHEW GT SCH (09:54)
[2023-04-09] MEDS: VITAL AF 1.2 1,000 ML LIQUID GT PRN (14:17)
[2023-04-09 20:00] VITALS: TEMP 98.5
[2023-04-09] MEDS: MAGNESIUM OXIDE 400 MG TABLET GT SCH (21:08)
[2023-04-09] MEDS: MULTIVIT, IRON, MIN NO. 8, FA TABLET GT SCH (21:08)
[2023-04-10] MEDS: NUTRISOURCE FIBER 4 GM PACKET GT SCH ×3 (01:00→17:31)
[2023-04-10] MEDS: POLYVINYL ALCOHOL OPHT DROPS 15 ML BOTTLE EACHEYE SCH ×2 (06:21→17:32)
[2023-04-10] MEDS: OMEPRAZOLE 40 MG CAPSULE.DR GT SCH (06:21)
[2023-04-10] MEDS: HYDROGEN PEROXIDE 3% 118 ML BOTTLE TP SCH ×2 (08:24→21:08)
[2023-04-10] MEDS: ASPIRIN 81 MG TAB.CHEW GT SCH (08:55)
[2023-04-10] MEDS: DOCUSATE SODIUM 100 MG/10 ML LIQUID UDC GT SCH ×2 (08:56→20:51)
[2023-04-10] MEDS: levETIRAcetam 500 MG/5 ML LIQUID UDC GT SCH ×2 (08:56→20:51)
[2023-04-10] MEDS: METOPROLOL TARTRATE 25 MG TABLET GT SCH ×2 (08:59→20:51)
[2023-04-10] MEDS: AMIODARONE 100 MG GT SCH (08:59)
[2023-04-10] MEDS: PHENOBARBITAL 64.8 MG TABLET GT SCH ×2 (08:59→21:00)
[2023-04-10] MEDS: CHLORHEXIDINE GLUCONATE 15 ML MOUTHWASH MM SCH (09:00)
[2023-04-10] MEDS: DIAZEPAM 5 MG TABLET GT SCH ×2 (09:00→21:00)
[2023-04-10] MEDS: REMEDY ESSENTIAL ZINC PASTE 113 GM TP SCH (09:00)
[2023-04-10 09:03] VITALS: TEMP 97.8
[2023-04-10] MEDS: VITAL AF 1.2 1,000 ML LIQUID GT PRN (17:33)
[2023-04-10 20:00] VITALS: TEMP 98.6
[2023-04-10] MEDS: MAGNESIUM OXIDE 400 MG TABLET GT SCH (20:51)
[2023-04-10] MEDS: MULTIVIT, IRON, MIN NO. 8, FA TABLET GT SCH (20:51)
[2023-04-11] MEDS: NUTRISOURCE FIBER 4 GM PACKET GT SCH ×3 (01:00→17:02)
[2023-04-11] MEDS: POLYVINYL ALCOHOL OPHT DROPS 15 ML BOTTLE EACHEYE SCH ×2 (06:00→17:02)
[2023-04-11] MEDS: OMEPRAZOLE 40 MG CAPSULE.DR GT SCH (06:00)
[2023-04-11 07:20] LABS: BASOPHILS % (AUTO) 0.7 % (0.0-2.0); EOSINOPHILS # (AUTO) 0.2 K/uL (0.0-0.7); EOSINOPHILS % (AUTO) 2.6 % (0.0-7.0); HEMATOCRIT 24.3 % (31.2-41.9); HEMOGLOBIN 8.2 g/dL (10.9-14.3); LYMPHOCYTES # (AUTO) 1.3 K/uL (0.8-4.8); LYMPHOCYTES % (AUTO) 22.4 % (20.5-51.5); MEAN CORPUSCULAR HEMOGLOBIN 27.2 uug (24.7-32.8); MEAN CORPUSCULAR HGB CONC 34 g/dL (32.3-35.6); MEAN CORPUSCULAR VOLUME 80.3 fL (75.5-95.3); MONOCYTES # (AUTO) 0.6 K/uL (0.1-1.30); MONOCYTES % (AUTO) 10.7 % (0.0-11.0); NEUTROPHILS # (AUTO) 3.7 K/uL (1.8-8.9); NEUTROPHILS % (AUTO) 63.6 % (38.5-71.5); PLATELET COUNT (AUTO) 237 K/uL (179-408); RED BLOOD CELL COUNT(AUTO) 3.02 MIL/uL (3.63-4.92); RED CELL DISTRIBUTION WIDTH 16.6 % (12.3-17.7); WHITE BLOOD COUNT (AUTO) 5.9 K/uL (3.8-11.8)
[2023-04-11 07:35] LABS: CALCIUM 9.5 mg/dL (8.5-10.1); CREATININE 0.6 mg/dL (0.6-1.3); POTASSIUM 4.2 mmol/L (3.5-5.1)
[2023-04-11 07:38] LABS: DIFFERENTIAL COMMENT 1
[2023-04-11 07:50] VITALS: TEMP 98.5
[2023-04-11] MEDS: DOCUSATE SODIUM 100 MG/10 ML LIQUID UDC GT SCH ×2 (09:00→20:42)
[2023-04-11] MEDS: AMIODARONE 100 MG GT SCH (09:00)
[2023-04-11] MEDS: ASPIRIN 81 MG TAB.CHEW GT SCH (09:00)
[2023-04-11] MEDS: HYDROGEN PEROXIDE 3% 118 ML BOTTLE TP SCH (09:00)
[2023-04-11] MEDS: levETIRAcetam 500 MG/5 ML LIQUID UDC GT SCH ×2 (09:00→20:42)
[2023-04-11] MEDS: DIAZEPAM 5 MG TABLET GT SCH ×2 (09:00→20:43)
[2023-04-11] MEDS: METOPROLOL TARTRATE 25 MG TABLET GT SCH ×2 (09:00→20:43)
[2023-04-11] MEDS: REMEDY ESSENTIAL ZINC PASTE 113 GM TP SCH (09:00)
[2023-04-11] MEDS: CHLORHEXIDINE GLUCONATE 15 ML MOUTHWASH MM SCH (09:00)
[2023-04-11] MEDS: PHENOBARBITAL 64.8 MG TABLET GT SCH ×2 (09:00→20:43)
[2023-04-11 20:00] VITALS: TEMP 97.4
[2023-04-11] MEDS: MAGNESIUM OXIDE 400 MG TABLET GT SCH (20:43)
[2023-04-11] MEDS: MULTIVIT, IRON, MIN NO. 8, FA TABLET GT SCH (20:43)
[2023-04-12] MEDS: HYDROGEN PEROXIDE 3% 118 ML BOTTLE TP SCH ×3 (00:34→21:58)
[2023-04-12] MEDS: NUTRISOURCE FIBER 4 GM PACKET GT SCH ×3 (01:00→16:47)
[2023-04-12] MEDS: POLYVINYL ALCOHOL OPHT DROPS 15 ML BOTTLE EACHEYE SCH ×2 (05:28→17:00)
[2023-04-12] MEDS: OMEPRAZOLE 40 MG CAPSULE.DR GT SCH (05:28)
[2023-04-12 07:38] VITALS: TEMP 98.1
[2023-04-12] MEDS: DOCUSATE SODIUM 100 MG/10 ML LIQUID UDC GT SCH ×2 (09:50→21:06)
[2023-04-12] MEDS: ASPIRIN 81 MG TAB.CHEW GT SCH (09:50)
[2023-04-12] MEDS: levETIRAcetam 500 MG/5 ML LIQUID UDC GT SCH ×2 (09:50→21:06)
[2023-04-12] MEDS: PHENOBARBITAL 64.8 MG TABLET GT SCH ×2 (09:51→21:00)
[2023-04-12] MEDS: CHLORHEXIDINE GLUCONATE 15 ML MOUTHWASH MM SCH (09:51)
[2023-04-12] MEDS: REMEDY ESSENTIAL ZINC PASTE 113 GM TP SCH (09:51)
[2023-04-12] MEDS: AMIODARONE 100 MG GT SCH (09:51)
[2023-04-12] MEDS: DIAZEPAM 5 MG TABLET GT SCH ×2 (09:51→21:00)
[2023-04-12] MEDS: METOPROLOL TARTRATE 25 MG TABLET GT SCH ×2 (09:51→21:07)
[2023-04-12] MEDS: VITAL AF 1.2 1,000 ML LIQUID GT PRN (16:49)
[2023-04-12 20:00] VITALS: TEMP 98.4
[2023-04-12] MEDS: MAGNESIUM OXIDE 400 MG TABLET GT SCH (21:07)
[2023-04-12] MEDS: MULTIVIT, IRON, MIN NO. 8, FA TABLET GT SCH (21:07)
[2023-04-13] MEDS: NUTRISOURCE FIBER 4 GM PACKET GT SCH ×3 (01:00→17:08)
[2023-04-13] MEDS: POLYVINYL ALCOHOL OPHT DROPS 15 ML BOTTLE EACHEYE SCH ×2 (05:41→17:09)
[2023-04-13] MEDS: OMEPRAZOLE 40 MG CAPSULE.DR GT SCH (05:41)
[2023-04-13] MEDS: HYDROGEN PEROXIDE 3% 118 ML BOTTLE TP SCH ×2 (07:22→19:41)
[2023-04-13 08:00] VITALS: TEMP 98
[2023-04-13] MEDS: ASPIRIN 81 MG TAB.CHEW GT SCH (09:42)
[2023-04-13] MEDS: DOCUSATE SODIUM 100 MG/10 ML LIQUID UDC GT SCH ×2 (09:42→20:15)
[2023-04-13] MEDS: levETIRAcetam 500 MG/5 ML LIQUID UDC GT SCH ×2 (09:42→20:17)
[2023-04-13] MEDS: CHLORHEXIDINE GLUCONATE 15 ML MOUTHWASH MM SCH (09:50)
[2023-04-13] MEDS: METOPROLOL TARTRATE 25 MG TABLET GT SCH ×2 (09:50→20:18)
[2023-04-13] MEDS: PHENOBARBITAL 64.8 MG TABLET GT SCH ×2 (09:50→20:23)
[2023-04-13] MEDS: DIAZEPAM 5 MG TABLET GT SCH ×2 (09:50→20:23)
[2023-04-13] MEDS: REMEDY ESSENTIAL ZINC PASTE 113 GM TP SCH (09:50)
[2023-04-13] MEDS: AMIODARONE 100 MG GT SCH (09:50)
[2023-04-13 20:00] VITALS: TEMP 97.6
[2023-04-13] MEDS: MAGNESIUM OXIDE 400 MG TABLET GT SCH (20:15)
[2023-04-13] MEDS: MULTIVIT, IRON, MIN NO. 8, FA TABLET GT SCH (20:15)
[2023-04-13] MEDS: VITAL AF 1.2 1,000 ML LIQUID GT PRN (23:15)
[2023-04-14] MEDS: OMEPRAZOLE 40 MG CAPSULE.DR GT SCH (05:18)
[2023-04-14] MEDS: POLYVINYL ALCOHOL OPHT DROPS 15 ML BOTTLE EACHEYE SCH ×2 (05:18→17:49)
[2023-04-14 08:06] VITALS: TEMP 97.5
[2023-04-14] MEDS: AMIODARONE 100 MG GT SCH (08:55)
[2023-04-14] MEDS: ASPIRIN 81 MG TAB.CHEW GT SCH (08:55)
[2023-04-14] MEDS: METOPROLOL TARTRATE 25 MG TABLET GT SCH ×2 (08:55→20:11)
[2023-04-14] MEDS: DOCUSATE SODIUM 100 MG/10 ML LIQUID UDC GT SCH ×2 (08:55→20:08)
[2023-04-14] MEDS: levETIRAcetam 500 MG/5 ML LIQUID UDC GT SCH ×2 (08:55→20:10)
[2023-04-14] MEDS: NUTRISOURCE FIBER 4 GM PACKET GT SCH ×3 (08:55→17:49)
[2023-04-14] MEDS: PHENOBARBITAL 64.8 MG TABLET GT SCH ×2 (08:55→20:11)
[2023-04-14] MEDS: DIAZEPAM 5 MG TABLET GT SCH ×2 (08:55→20:13)
[2023-04-14] MEDS: CHLORHEXIDINE GLUCONATE 15 ML MOUTHWASH MM SCH (08:56)
[2023-04-14] MEDS: REMEDY ESSENTIAL ZINC PASTE 113 GM TP SCH (08:56)
[2023-04-14] MEDS: HYDROGEN PEROXIDE 3% 118 ML BOTTLE TP SCH (09:00)
[2023-04-14] MEDS: MAGNESIUM OXIDE 400 MG TABLET GT SCH (20:11)
[2023-04-14] MEDS: MULTIVIT, IRON, MIN NO. 8, FA TABLET GT SCH (20:13)
[2023-04-14 20:20] VITALS: TEMP 98.6
[2023-04-15] MEDS: NUTRISOURCE FIBER 4 GM PACKET GT SCH ×3 (00:31→17:00)
[2023-04-15] MEDS: HYDROGEN PEROXIDE 3% 118 ML BOTTLE TP SCH ×2 (00:57→09:00)
[2023-04-15] MEDS: VITAL AF 1.2 1,000 ML LIQUID GT PRN (03:39)
[2023-04-15] MEDS: POLYVINYL ALCOHOL OPHT DROPS 15 ML BOTTLE EACHEYE SCH ×2 (05:15→18:39)
[2023-04-15] MEDS: OMEPRAZOLE 40 MG CAPSULE.DR GT SCH (05:15)
[2023-04-15 08:00] VITALS: BP 96/54; TEMP 97.6; O2SAT 97
[2023-04-15] MEDS: DOCUSATE SODIUM 100 MG/10 ML LIQUID UDC GT SCH ×2 (08:51→21:31)
[2023-04-15] MEDS: ASPIRIN 81 MG TAB.CHEW GT SCH (08:51)
[2023-04-15] MEDS: levETIRAcetam 500 MG/5 ML LIQUID UDC GT SCH ×2 (08:51→21:31)
[2023-04-15] MEDS: METOPROLOL TARTRATE 25 MG TABLET GT SCH ×2 (08:52→21:00)
[2023-04-15] MEDS: PHENOBARBITAL 64.8 MG TABLET GT SCH ×2 (08:53→21:31)
[2023-04-15] MEDS: AMIODARONE 100 MG GT SCH (08:53)
[2023-04-15] MEDS: CHLORHEXIDINE GLUCONATE 15 ML MOUTHWASH MM SCH (08:53)
[2023-04-15] MEDS: DIAZEPAM 5 MG TABLET GT SCH ×2 (08:53→21:31)
[2023-04-15] MEDS: REMEDY ESSENTIAL ZINC PASTE 113 GM TP SCH (08:54)
[2023-04-15] MEDS: MEROPENEM 1 G in IV NORMAL SALINE 100 ML IV SCH ×2 (16:44→22:20)
[2023-04-15 19:59] VITALS: TEMP 98.5
[2023-04-15] MEDS: MAGNESIUM OXIDE 400 MG TABLET GT SCH (21:31)
[2023-04-15] MEDS: MULTIVIT, IRON, MIN NO. 8, FA TABLET GT SCH (21:31)
[2023-04-16] MEDS: NUTRISOURCE FIBER 4 GM PACKET GT SCH ×3 (01:00→17:03)
[2023-04-16] MEDS: POLYVINYL ALCOHOL OPHT DROPS 15 ML BOTTLE EACHEYE SCH ×2 (05:16→17:03)
[2023-04-16] MEDS: OMEPRAZOLE 40 MG CAPSULE.DR GT SCH (05:16)
[2023-04-16] MEDS: MEROPENEM 1 G in IV NORMAL SALINE 100 ML IV SCH ×3 (05:47→22:33)
[2023-04-16] MEDS: HYDROGEN PEROXIDE 3% 118 ML BOTTLE TP SCH ×2 (08:30→21:09)
[2023-04-16] MEDS: DIAZEPAM 5 MG TABLET GT SCH ×2 (09:00→21:08)
[2023-04-16] MEDS: CHLORHEXIDINE GLUCONATE 15 ML MOUTHWASH MM SCH (09:00)
[2023-04-16] MEDS: AMIODARONE 100 MG GT SCH (09:00)
[2023-04-16] MEDS: REMEDY ESSENTIAL ZINC PASTE 113 GM TP SCH (09:00)
[2023-04-16] MEDS: levETIRAcetam 500 MG/5 ML LIQUID UDC GT SCH ×2 (09:00→21:07)
[2023-04-16] MEDS: PHENOBARBITAL 64.8 MG TABLET GT SCH ×2 (09:00→21:08)
[2023-04-16] MEDS: DOCUSATE SODIUM 100 MG/10 ML LIQUID UDC GT SCH ×2 (09:00→21:07)
[2023-04-16] MEDS: ASPIRIN 81 MG TAB.CHEW GT SCH (09:00)
[2023-04-16] MEDS: METOPROLOL TARTRATE 25 MG TABLET GT SCH ×2 (09:00→21:07)
[2023-04-16 09:17] VITALS: TEMP 97.6
[2023-04-16] MEDS: COD LIVER OIL/ZINC OXIDE OINT 113 GM TUBE TP SCH (12:16)
[2023-04-16] MEDS: VITAL AF 1.2 1,000 ML LIQUID GT PRN (12:17)
[2023-04-16 19:38] VITALS: TEMP 98
[2023-04-16] MEDS: MAGNESIUM OXIDE 400 MG TABLET GT SCH (21:08)
[2023-04-16] MEDS: MULTIVIT, IRON, MIN NO. 8, FA TABLET GT SCH (21:08)
[2023-04-17] MEDS: NUTRISOURCE FIBER 4 GM PACKET GT SCH ×3 (01:44→17:01)
[2023-04-17] MEDS: POLYVINYL ALCOHOL OPHT DROPS 15 ML BOTTLE EACHEYE SCH ×2 (05:38→17:01)
[2023-04-17] MEDS: MEROPENEM 1 G in IV NORMAL SALINE 100 ML IV SCH ×3 (05:43→21:06)
[2023-04-17] MEDS: OMEPRAZOLE 40 MG CAPSULE.DR GT SCH (06:49)
[2023-04-17] MEDS: HYDROGEN PEROXIDE 3% 118 ML BOTTLE TP SCH ×2 (07:24→19:23)
[2023-04-17 08:00] VITALS: TEMP 97.8
[2023-04-17] MEDS: REMEDY ESSENTIAL ZINC PASTE 113 GM TP SCH (09:00)
[2023-04-17] MEDS: COD LIVER OIL/ZINC OXIDE OINT 113 GM TUBE TP SCH (09:00)
[2023-04-17] MEDS: ASPIRIN 81 MG TAB.CHEW GT SCH (10:06)
[2023-04-17] MEDS: DOCUSATE SODIUM 100 MG/10 ML LIQUID UDC GT SCH ×2 (10:06→21:04)
[2023-04-17] MEDS: levETIRAcetam 500 MG/5 ML LIQUID UDC GT SCH ×2 (10:06→21:05)
[2023-04-17] MEDS: METOPROLOL TARTRATE 25 MG TABLET GT SCH ×2 (10:07→21:06)
[2023-04-17] MEDS: PHENOBARBITAL 64.8 MG TABLET GT SCH ×2 (10:07→21:03)
[2023-04-17] MEDS: CHLORHEXIDINE GLUCONATE 15 ML MOUTHWASH MM SCH (10:08)
[2023-04-17] MEDS: AMIODARONE 100 MG GT SCH (10:08)
[2023-04-17] MEDS: DIAZEPAM 5 MG TABLET GT SCH ×2 (10:08→21:03)
[2023-04-17] MEDS: VITAL AF 1.2 1,000 ML LIQUID GT PRN (12:12)
[2023-04-17 20:00] VITALS: TEMP 98.1
[2023-04-17] MEDS: MULTIVIT, IRON, MIN NO. 8, FA TABLET GT SCH (21:03)
[2023-04-17] MEDS: MAGNESIUM OXIDE 400 MG TABLET GT SCH (21:03)
[2023-04-18] MEDS: NUTRISOURCE FIBER 4 GM PACKET GT SCH ×3 (01:00→16:34)
[2023-04-18] MEDS: MEROPENEM 1 G in IV NORMAL SALINE 100 ML IV SCH ×3 (05:18→22:15)
[2023-04-18] MEDS: POLYVINYL ALCOHOL OPHT DROPS 15 ML BOTTLE EACHEYE SCH ×2 (06:05→18:24)
[2023-04-18] MEDS: OMEPRAZOLE 40 MG CAPSULE.DR GT SCH (06:05)
[2023-04-18 08:00] VITALS: TEMP 97.6
[2023-04-18] MEDS: HYDROGEN PEROXIDE 3% 118 ML BOTTLE TP SCH ×2 (09:00→21:23)
[2023-04-18] MEDS: METOPROLOL TARTRATE 25 MG TABLET GT SCH ×2 (09:00→21:57)
[2023-04-18] MEDS: CHLORHEXIDINE GLUCONATE 15 ML MOUTHWASH MM SCH (09:57)
[2023-04-18] MEDS: DIAZEPAM 5 MG TABLET GT SCH ×2 (09:57→21:57)
[2023-04-18] MEDS: AMIODARONE 100 MG GT SCH (09:57)
[2023-04-18] MEDS: ASPIRIN 81 MG TAB.CHEW GT SCH (09:57)
[2023-04-18] MEDS: levETIRAcetam 500 MG/5 ML LIQUID UDC GT SCH ×2 (09:57→21:57)
[2023-04-18] MEDS: DOCUSATE SODIUM 100 MG/10 ML LIQUID UDC GT SCH ×2 (09:57→21:56)
[2023-04-18] MEDS: PHENOBARBITAL 64.8 MG TABLET GT SCH ×2 (09:57→21:57)
[2023-04-18] MEDS: COD LIVER OIL/ZINC OXIDE OINT 113 GM TUBE TP SCH (09:58)
[2023-04-18] MEDS: REMEDY ESSENTIAL ZINC PASTE 113 GM TP SCH (09:58)
[2023-04-18] MEDS: VITAL AF 1.2 1,000 ML LIQUID GT PRN (16:35)
[2023-04-18 20:00] VITALS: TEMP 96.4
[2023-04-18] MEDS: MULTIVIT, IRON, MIN NO. 8, FA TABLET GT SCH (21:57)
[2023-04-18] MEDS: MAGNESIUM OXIDE 400 MG TABLET GT SCH (21:57)
[2023-04-19] MEDS: NUTRISOURCE FIBER 4 GM PACKET GT SCH ×3 (01:12→18:00)
[2023-04-19] MEDS: MEROPENEM 1 G in IV NORMAL SALINE 100 ML IV SCH ×3 (05:35→21:56)
[2023-04-19] MEDS: POLYVINYL ALCOHOL OPHT DROPS 15 ML BOTTLE EACHEYE SCH ×2 (05:53→18:01)
[2023-04-19] MEDS: OMEPRAZOLE 40 MG CAPSULE.DR GT SCH (05:53)
[2023-04-19] MEDS: HYDROGEN PEROXIDE 3% 118 ML BOTTLE TP SCH ×2 (07:45→21:41)
[2023-04-19] MEDS: DOCUSATE SODIUM 100 MG/10 ML LIQUID UDC GT SCH ×2 (09:05→21:15)
[2023-04-19] MEDS: ASPIRIN 81 MG TAB.CHEW GT SCH (09:05)
[2023-04-19] MEDS: levETIRAcetam 500 MG/5 ML LIQUID UDC GT SCH ×2 (09:07→21:15)
[2023-04-19] MEDS: METOPROLOL TARTRATE 25 MG TABLET GT SCH ×2 (09:08→21:00)
[2023-04-19] MEDS: DIAZEPAM 5 MG TABLET GT SCH ×2 (09:09→21:16)
[2023-04-19] MEDS: AMIODARONE 100 MG GT SCH (09:09)
[2023-04-19] MEDS: PHENOBARBITAL 64.8 MG TABLET GT SCH ×2 (09:09→21:16)
[2023-04-19] MEDS: CHLORHEXIDINE GLUCONATE 15 ML MOUTHWASH MM SCH (09:10)
[2023-04-19] MEDS: COD LIVER OIL/ZINC OXIDE OINT 113 GM TUBE TP SCH (09:10)
[2023-04-19] MEDS: REMEDY ESSENTIAL ZINC PASTE 113 GM TP SCH (09:10)
[2023-04-19 11:27] VITALS: TEMP 97.8
[2023-04-19] MEDS: VITAL AF 1.2 1,000 ML LIQUID GT PRN (18:01)
[2023-04-19 20:00] VITALS: TEMP 96.5
[2023-04-19] MEDS: MULTIVIT, IRON, MIN NO. 8, FA TABLET GT SCH (21:16)
[2023-04-19] MEDS: MAGNESIUM OXIDE 400 MG TABLET GT SCH (21:16)
[2023-04-20] MEDS: NUTRISOURCE FIBER 4 GM PACKET GT SCH ×3 (01:00→17:56)
[2023-04-20] MEDS: MEROPENEM 1 G in IV NORMAL SALINE 100 ML IV SCH (06:00)
[2023-04-20] MEDS: OMEPRAZOLE 40 MG CAPSULE.DR GT SCH (06:09)
[2023-04-20] MEDS: POLYVINYL ALCOHOL OPHT DROPS 15 ML BOTTLE EACHEYE SCH ×2 (06:09→17:56)
[2023-04-20] MEDS: HYDROGEN PEROXIDE 3% 118 ML BOTTLE TP SCH ×2 (07:40→21:48)
[2023-04-20 08:00] VITALS: TEMP 99.3
[2023-04-20] MEDS: METOPROLOL TARTRATE 25 MG TABLET GT SCH ×2 (09:00→21:28)
[2023-04-20] MEDS: ASPIRIN 81 MG TAB.CHEW GT SCH (09:10)
[2023-04-20] MEDS: levETIRAcetam 500 MG/5 ML LIQUID UDC GT SCH ×2 (09:11→21:27)
[2023-04-20] MEDS: DOCUSATE SODIUM 100 MG/10 ML LIQUID UDC GT SCH ×2 (09:11→21:27)
[2023-04-20] MEDS: PHENOBARBITAL 64.8 MG TABLET GT SCH ×2 (09:13→21:28)
[2023-04-20] MEDS: AMIODARONE 100 MG GT SCH (09:13)
[2023-04-20] MEDS: CHLORHEXIDINE GLUCONATE 15 ML MOUTHWASH MM SCH (09:14)
[2023-04-20] MEDS: DIAZEPAM 5 MG TABLET GT SCH ×2 (09:14→21:28)
[2023-04-20] MEDS: REMEDY ESSENTIAL ZINC PASTE 113 GM TP SCH (09:14)
[2023-04-20] MEDS: COD LIVER OIL/ZINC OXIDE OINT 113 GM TUBE TP SCH (09:14)
[2023-04-20 20:00] VITALS: TEMP 96.9
[2023-04-20] MEDS: MAGNESIUM OXIDE 400 MG TABLET GT SCH (21:28)
[2023-04-20] MEDS: MULTIVIT, IRON, MIN NO. 8, FA TABLET GT SCH (21:28)
[2023-04-20] MEDS: VITAL AF 1.2 1,000 ML LIQUID GT PRN (23:49)
[2023-04-21] MEDS: NUTRISOURCE FIBER 4 GM PACKET GT SCH ×3 (01:11→17:10)
[2023-04-21] MEDS: POLYVINYL ALCOHOL OPHT DROPS 15 ML BOTTLE EACHEYE SCH ×2 (05:28→17:11)
[2023-04-21] MEDS: OMEPRAZOLE 40 MG CAPSULE.DR GT SCH (05:28)
[2023-04-21 07:50] VITALS: TEMP 97.7
[2023-04-21] MEDS: METOPROLOL TARTRATE 25 MG TABLET GT SCH ×2 (09:00→21:00)
[2023-04-21] MEDS: levETIRAcetam 500 MG/5 ML LIQUID UDC GT SCH ×2 (09:11→21:38)
[2023-04-21] MEDS: DOCUSATE SODIUM 100 MG/10 ML LIQUID UDC GT SCH ×2 (09:11→21:38)
[2023-04-21] MEDS: ASPIRIN 81 MG TAB.CHEW GT SCH (09:11)
[2023-04-21] MEDS: PHENOBARBITAL 64.8 MG TABLET GT SCH ×2 (09:12→21:39)
[2023-04-21] MEDS: DIAZEPAM 5 MG TABLET GT SCH ×2 (09:12→21:39)
[2023-04-21] MEDS: COD LIVER OIL/ZINC OXIDE OINT 113 GM TUBE TP SCH (09:12)
[2023-04-21] MEDS: AMIODARONE 100 MG GT SCH (09:12)
[2023-04-21] MEDS: REMEDY ESSENTIAL ZINC PASTE 113 GM TP SCH (09:12)
[2023-04-21] MEDS: CHLORHEXIDINE GLUCONATE 15 ML MOUTHWASH MM SCH (09:17)
[2023-04-21] MEDS: HYDROGEN PEROXIDE 3% 118 ML BOTTLE TP SCH ×2 (09:23→19:11)
[2023-04-21 20:14] VITALS: TEMP 98
[2023-04-21] MEDS: MAGNESIUM OXIDE 400 MG TABLET GT SCH (21:39)
[2023-04-21] MEDS: MULTIVIT, IRON, MIN NO. 8, FA TABLET GT SCH (21:39)
[2023-04-22] MEDS: NUTRISOURCE FIBER 4 GM PACKET GT SCH ×3 (01:00→16:56)
[2023-04-22] MEDS: VITAL AF 1.2 1,000 ML LIQUID GT PRN (02:54)
[2023-04-22] MEDS: POLYVINYL ALCOHOL OPHT DROPS 15 ML BOTTLE EACHEYE SCH ×2 (05:47→17:00)
[2023-04-22] MEDS: OMEPRAZOLE 40 MG CAPSULE.DR GT SCH (05:48)
[2023-04-22 07:37] VITALS: TEMP 98.3
[2023-04-22] MEDS: ASPIRIN 81 MG TAB.CHEW GT SCH (08:08)
[2023-04-22] MEDS: DOCUSATE SODIUM 100 MG/10 ML LIQUID UDC GT SCH ×2 (08:09→21:35)
[2023-04-22] MEDS: levETIRAcetam 500 MG/5 ML LIQUID UDC GT SCH ×2 (08:10→21:35)
[2023-04-22] MEDS: PHENOBARBITAL 64.8 MG TABLET GT SCH ×2 (08:12→21:36)
[2023-04-22] MEDS: AMIODARONE 100 MG GT SCH (08:12)
[2023-04-22] MEDS: DIAZEPAM 5 MG TABLET GT SCH ×2 (08:13→21:36)
[2023-04-22] MEDS: REMEDY ESSENTIAL ZINC PASTE 113 GM TP SCH (08:14)
[2023-04-22] MEDS: COD LIVER OIL/ZINC OXIDE OINT 113 GM TUBE TP SCH (08:14)
[2023-04-22] MEDS: CHLORHEXIDINE GLUCONATE 15 ML MOUTHWASH MM SCH (08:14)
[2023-04-22] MEDS: METOPROLOL TARTRATE 25 MG TABLET GT SCH ×2 (08:19→21:36)
[2023-04-22] MEDS: HYDROGEN PEROXIDE 3% 118 ML BOTTLE TP SCH ×2 (09:00→19:02)
[2023-04-22 20:15] VITALS: TEMP 98.4
[2023-04-22] MEDS: MAGNESIUM OXIDE 400 MG TABLET GT SCH (21:36)
[2023-04-22] MEDS: MULTIVIT, IRON, MIN NO. 8, FA TABLET GT SCH (21:36)
[2023-04-23] MEDS: NUTRISOURCE FIBER 4 GM PACKET GT SCH ×3 (01:25→17:49)
[2023-04-23] MEDS: OMEPRAZOLE 40 MG CAPSULE.DR GT SCH (05:38)
[2023-04-23] MEDS: POLYVINYL ALCOHOL OPHT DROPS 15 ML BOTTLE EACHEYE SCH ×2 (05:38→17:49)
[2023-04-23] MEDS: HYDROGEN PEROXIDE 3% 118 ML BOTTLE TP SCH ×2 (07:29→21:24)
[2023-04-23 07:43] VITALS: TEMP 97.8
[2023-04-23] MEDS: DOCUSATE SODIUM 100 MG/10 ML LIQUID UDC GT SCH ×2 (09:00→20:18)
[2023-04-23] MEDS: AMIODARONE 100 MG GT SCH (09:00)
[2023-04-23] MEDS: PHENOBARBITAL 64.8 MG TABLET GT SCH ×2 (09:00→20:22)
[2023-04-23] MEDS: levETIRAcetam 500 MG/5 ML LIQUID UDC GT SCH ×2 (09:00→20:19)
[2023-04-23] MEDS: DIAZEPAM 5 MG TABLET GT SCH ×2 (09:00→20:23)
[2023-04-23] MEDS: METOPROLOL TARTRATE 25 MG TABLET GT SCH ×2 (09:00→20:22)
[2023-04-23] MEDS: ASPIRIN 81 MG TAB.CHEW GT SCH (09:00)
[2023-04-23] MEDS: REMEDY ESSENTIAL ZINC PASTE 113 GM TP SCH (09:00)
[2023-04-23] MEDS: CHLORHEXIDINE GLUCONATE 15 ML MOUTHWASH MM SCH (09:00)
[2023-04-23] MEDS: COD LIVER OIL/ZINC OXIDE OINT 113 GM TUBE TP SCH (09:00)
[2023-04-23] MEDS: VITAL AF 1.2 1,000 ML LIQUID GT PRN (17:52)
[2023-04-23 20:00] VITALS: TEMP 97.3
[2023-04-23] MEDS: MAGNESIUM OXIDE 400 MG TABLET GT SCH (20:22)
[2023-04-23] MEDS: MULTIVIT, IRON, MIN NO. 8, FA TABLET GT SCH (20:23)
[2023-04-24] MEDS: NUTRISOURCE FIBER 4 GM PACKET GT SCH ×3 (01:13→17:36)
[2023-04-24] MEDS: OMEPRAZOLE 40 MG CAPSULE.DR GT SCH (06:00)
[2023-04-24] MEDS: POLYVINYL ALCOHOL OPHT DROPS 15 ML BOTTLE EACHEYE SCH ×2 (06:00→17:36)
[2023-04-24 07:41] VITALS: TEMP 98.3
[2023-04-24] MEDS: HYDROGEN PEROXIDE 3% 118 ML BOTTLE TP SCH ×2 (08:20→20:35)
[2023-04-24] MEDS: METOPROLOL TARTRATE 25 MG TABLET GT SCH ×2 (09:46→20:20)
[2023-04-24] MEDS: ASPIRIN 81 MG TAB.CHEW GT SCH (09:46)
[2023-04-24] MEDS: PHENOBARBITAL 64.8 MG TABLET GT SCH ×2 (09:46→20:10)
[2023-04-24] MEDS: AMIODARONE 100 MG GT SCH (09:46)
[2023-04-24] MEDS: levETIRAcetam 500 MG/5 ML LIQUID UDC GT SCH ×2 (09:46→20:09)
[2023-04-24] MEDS: DIAZEPAM 5 MG TABLET GT SCH ×2 (09:46→20:10)
[2023-04-24] MEDS: DOCUSATE SODIUM 100 MG/10 ML LIQUID UDC GT SCH ×2 (09:46→20:09)
[2023-04-24] MEDS: COD LIVER OIL/ZINC OXIDE OINT 113 GM TUBE TP SCH (09:47)
[2023-04-24] MEDS: REMEDY ESSENTIAL ZINC PASTE 113 GM TP SCH (09:47)
[2023-04-24] MEDS: CHLORHEXIDINE GLUCONATE 15 ML MOUTHWASH MM SCH (09:47)
[2023-04-24 20:00] VITALS: TEMP 96
[2023-04-24] MEDS: MAGNESIUM OXIDE 400 MG TABLET GT SCH (20:10)
[2023-04-24] MEDS: MULTIVIT, IRON, MIN NO. 8, FA TABLET GT SCH (20:10)
[2023-04-25] MEDS: VITAL AF 1.2 1,000 ML LIQUID GT PRN (01:00)
[2023-04-25] MEDS: NUTRISOURCE FIBER 4 GM PACKET GT SCH ×3 (01:51→17:21)
[2023-04-25] MEDS: OMEPRAZOLE 40 MG CAPSULE.DR GT SCH (06:12)
[2023-04-25] MEDS: POLYVINYL ALCOHOL OPHT DROPS 15 ML BOTTLE EACHEYE SCH ×2 (06:12→17:22)
[2023-04-25 07:28] VITALS: TEMP 98.4
[2023-04-25] MEDS: levETIRAcetam 500 MG/5 ML LIQUID UDC GT SCH ×2 (08:32→20:31)
[2023-04-25] MEDS: DOCUSATE SODIUM 100 MG/10 ML LIQUID UDC GT SCH ×2 (08:32→20:30)
[2023-04-25] MEDS: ASPIRIN 81 MG TAB.CHEW GT SCH (08:32)
[2023-04-25] MEDS: METOPROLOL TARTRATE 25 MG TABLET GT SCH ×2 (08:33→20:32)
[2023-04-25] MEDS: DIAZEPAM 5 MG TABLET GT SCH ×2 (08:33→20:34)
[2023-04-25] MEDS: AMIODARONE 100 MG GT SCH (08:33)
[2023-04-25] MEDS: COD LIVER OIL/ZINC OXIDE OINT 113 GM TUBE TP SCH (08:33)
[2023-04-25] MEDS: CHLORHEXIDINE GLUCONATE 15 ML MOUTHWASH MM SCH (08:33)
[2023-04-25] MEDS: REMEDY ESSENTIAL ZINC PASTE 113 GM TP SCH (08:33)
[2023-04-25] MEDS: PHENOBARBITAL 64.8 MG TABLET GT SCH ×2 (08:33→20:32)
[2023-04-25] MEDS: HYDROGEN PEROXIDE 3% 118 ML BOTTLE TP SCH ×2 (09:00→20:00)
[2023-04-25 20:00] VITALS: TEMP 98.9
[2023-04-25] MEDS: MAGNESIUM OXIDE 400 MG TABLET GT SCH (20:32)
[2023-04-25] MEDS: MULTIVIT, IRON, MIN NO. 8, FA TABLET GT SCH (20:33)
[2023-04-26] MEDS: NUTRISOURCE FIBER 4 GM PACKET GT SCH ×3 (01:25→17:20)
[2023-04-26] MEDS: VITAL AF 1.2 1,000 ML LIQUID GT PRN (04:00)
[2023-04-26] MEDS: OMEPRAZOLE 40 MG CAPSULE.DR GT SCH (05:40)
[2023-04-26] MEDS: POLYVINYL ALCOHOL OPHT DROPS 15 ML BOTTLE EACHEYE SCH ×2 (05:40→17:20)
[2023-04-26] MEDS: HYDROGEN PEROXIDE 3% 118 ML BOTTLE TP SCH ×2 (07:59→19:11)
[2023-04-26 08:00] VITALS: TEMP 97.6
[2023-04-26] MEDS: levETIRAcetam 500 MG/5 ML LIQUID UDC GT SCH ×2 (08:46→20:59)
[2023-04-26] MEDS: DOCUSATE SODIUM 100 MG/10 ML LIQUID UDC GT SCH ×2 (08:46→20:59)
[2023-04-26] MEDS: ASPIRIN 81 MG TAB.CHEW GT SCH (08:46)
[2023-04-26] MEDS: DIAZEPAM 5 MG TABLET GT SCH ×2 (08:47→21:06)
[2023-04-26] MEDS: AMIODARONE 100 MG GT SCH (08:47)
[2023-04-26] MEDS: METOPROLOL TARTRATE 25 MG TABLET GT SCH ×2 (08:47→21:00)
[2023-04-26] MEDS: CHLORHEXIDINE GLUCONATE 15 ML MOUTHWASH MM SCH (08:47)
[2023-04-26] MEDS: PHENOBARBITAL 64.8 MG TABLET GT SCH ×2 (08:47→21:05)
[2023-04-26] MEDS: COD LIVER OIL/ZINC OXIDE OINT 113 GM TUBE TP SCH (08:49)
[2023-04-26] MEDS: REMEDY ESSENTIAL ZINC PASTE 113 GM TP SCH (09:00)
[2023-04-26 20:00] VITALS: TEMP 96.7
[2023-04-26] MEDS: MULTIVIT, IRON, MIN NO. 8, FA TABLET GT SCH (21:06)
[2023-04-26] MEDS: MAGNESIUM OXIDE 400 MG TABLET GT SCH (21:06)
[2023-04-27] MEDS: NUTRISOURCE FIBER 4 GM PACKET GT SCH ×3 (01:11→17:56)
[2023-04-27] MEDS: POLYVINYL ALCOHOL OPHT DROPS 15 ML BOTTLE EACHEYE SCH ×2 (05:08→17:56)
[2023-04-27] MEDS: OMEPRAZOLE 40 MG CAPSULE.DR GT SCH (05:08)
[2023-04-27] MEDS: HYDROGEN PEROXIDE 3% 118 ML BOTTLE TP SCH ×2 (07:13→23:05)
[2023-04-27 08:00] VITALS: TEMP 98.2
[2023-04-27] MEDS: ASPIRIN 81 MG TAB.CHEW GT SCH (08:42)
[2023-04-27] MEDS: DOCUSATE SODIUM 100 MG/10 ML LIQUID UDC GT SCH ×2 (08:43→21:14)
[2023-04-27] MEDS: levETIRAcetam 500 MG/5 ML LIQUID UDC GT SCH ×2 (08:43→21:15)
[2023-04-27] MEDS: METOPROLOL TARTRATE 25 MG TABLET GT SCH ×2 (08:44→21:15)
[2023-04-27] MEDS: PHENOBARBITAL 64.8 MG TABLET GT SCH ×2 (08:48→21:24)
[2023-04-27] MEDS: AMIODARONE 100 MG GT SCH (08:48)
[2023-04-27] MEDS: CHLORHEXIDINE GLUCONATE 15 ML MOUTHWASH MM SCH (08:49)
[2023-04-27] MEDS: REMEDY ESSENTIAL ZINC PASTE 113 GM TP SCH (08:49)
[2023-04-27] MEDS: DIAZEPAM 5 MG TABLET GT SCH ×2 (08:49→21:25)
[2023-04-27] MEDS: COD LIVER OIL/ZINC OXIDE OINT 113 GM TUBE TP SCH (08:49)
[2023-04-27 20:00] VITALS: TEMP 98
[2023-04-27] MEDS: MAGNESIUM OXIDE 400 MG TABLET GT SCH (21:16)
[2023-04-27] MEDS: MULTIVIT, IRON, MIN NO. 8, FA TABLET GT SCH (21:16)
[2023-04-28] MEDS: NUTRISOURCE FIBER 4 GM PACKET GT SCH ×3 (00:57→17:53)
[2023-04-28] MEDS: OMEPRAZOLE 40 MG CAPSULE.DR GT SCH (06:46)
[2023-04-28] MEDS: POLYVINYL ALCOHOL OPHT DROPS 15 ML BOTTLE EACHEYE SCH ×2 (06:46→17:53)
[2023-04-28] MEDS: HYDROGEN PEROXIDE 3% 118 ML BOTTLE TP SCH ×2 (07:15→21:08)
[2023-04-28 08:06] VITALS: TEMP 97
[2023-04-28] MEDS: METOPROLOL TARTRATE 25 MG TABLET GT SCH ×2 (09:00→20:35)
[2023-04-28] MEDS: ASPIRIN 81 MG TAB.CHEW GT SCH (09:10)
[2023-04-28] MEDS: DOCUSATE SODIUM 100 MG/10 ML LIQUID UDC GT SCH ×2 (09:10→20:37)
[2023-04-28] MEDS: levETIRAcetam 500 MG/5 ML LIQUID UDC GT SCH ×2 (09:10→20:37)
[2023-04-28] MEDS: PHENOBARBITAL 64.8 MG TABLET GT SCH ×2 (09:12→20:37)
[2023-04-28] MEDS: DIAZEPAM 5 MG TABLET GT SCH ×2 (09:13→20:38)
[2023-04-28] MEDS: AMIODARONE 100 MG GT SCH (09:13)
[2023-04-28] MEDS: CHLORHEXIDINE GLUCONATE 15 ML MOUTHWASH MM SCH (09:13)
[2023-04-28] MEDS: COD LIVER OIL/ZINC OXIDE OINT 113 GM TUBE TP SCH (09:14)
[2023-04-28] MEDS: REMEDY ESSENTIAL ZINC PASTE 113 GM TP SCH (09:14)
[2023-04-28 20:00] VITALS: TEMP 99.5
[2023-04-28] MEDS: MULTIVIT, IRON, MIN NO. 8, FA TABLET GT SCH (20:38)
[2023-04-28] MEDS: MAGNESIUM OXIDE 400 MG TABLET GT SCH (20:38)
[2023-04-29] MEDS: NUTRISOURCE FIBER 4 GM PACKET GT SCH ×3 (01:53→17:33)
[2023-04-29] MEDS: POLYVINYL ALCOHOL OPHT DROPS 15 ML BOTTLE EACHEYE SCH ×2 (06:42→17:34)
[2023-04-29] MEDS: OMEPRAZOLE 40 MG CAPSULE.DR GT SCH (06:42)
[2023-04-29 07:35] LABS: BASOPHILS % (AUTO) 0.7 % (0.0-2.0); DIFFERENTIAL COMMENT 1; EOSINOPHILS # (AUTO) 0.1 K/uL (0.0-0.7); EOSINOPHILS % (AUTO) 3.6 % (0.0-7.0); HEMATOCRIT 27.4 % (31.2-41.9); HEMOGLOBIN 9.3 g/dL (10.9-14.3); LYMPHOCYTES # (AUTO) 0.9 K/uL (0.8-4.8); LYMPHOCYTES % (AUTO) 23.5 % (20.5-51.5); MEAN CORPUSCULAR HEMOGLOBIN 27.7 uug (24.7-32.8); MEAN CORPUSCULAR HGB CONC 34 g/dL (32.3-35.6); MEAN CORPUSCULAR VOLUME 81.3 fL (75.5-95.3); MONOCYTES # (AUTO) 0.4 K/uL (0.1-1.30); MONOCYTES % (AUTO) 10.5 % (0.0-11.0); NEUTROPHILS # (AUTO) 2.5 K/uL (1.8-8.9); NEUTROPHILS % (AUTO) 61.7 % (38.5-71.5); PLATELET COUNT (AUTO) 157 K/uL (179-408); RED BLOOD CELL COUNT(AUTO) 3.37 MIL/uL (3.63-4.92); RED CELL DISTRIBUTION WIDTH 18.4 % (12.3-17.7)
[2023-04-29 07:49] VITALS: TEMP 97.3
[2023-04-29 07:54] LABS: CALCIUM 9.1 mg/dL (8.5-10.1); CREATININE 0.5 mg/dL (0.6-1.3); MAGNESIUM 2.1 mg/dL (1.8-2.4); PHOSPHOROUS 3.7 mg/dL (2.5-4.9); POTASSIUM 3.9 mmol/L (3.5-5.1)
[2023-04-29] MEDS: HYDROGEN PEROXIDE 3% 118 ML BOTTLE TP SCH ×2 (08:04→19:14)
[2023-04-29] MEDS: AMIODARONE 100 MG GT SCH (08:59)
[2023-04-29] MEDS: METOPROLOL TARTRATE 25 MG TABLET GT SCH ×2 (08:59→20:15)
[2023-04-29] MEDS: DOCUSATE SODIUM 100 MG/10 ML LIQUID UDC GT SCH ×2 (08:59→20:15)
[2023-04-29] MEDS: CHLORHEXIDINE GLUCONATE 15 ML MOUTHWASH MM SCH (08:59)
[2023-04-29] MEDS: levETIRAcetam 500 MG/5 ML LIQUID UDC GT SCH ×2 (08:59→20:15)
[2023-04-29] MEDS: ASPIRIN 81 MG TAB.CHEW GT SCH (08:59)
[2023-04-29] MEDS: DIAZEPAM 5 MG TABLET GT SCH ×2 (08:59→20:16)
[2023-04-29] MEDS: PHENOBARBITAL 64.8 MG TABLET GT SCH ×2 (08:59→20:16)
[2023-04-29] MEDS: REMEDY ESSENTIAL ZINC PASTE 113 GM TP SCH (09:00)
[2023-04-29] MEDS: COD LIVER OIL/ZINC OXIDE OINT 113 GM TUBE TP SCH (09:00)
[2023-04-29 20:00] VITALS: TEMP 97.8
[2023-04-29] MEDS: MAGNESIUM OXIDE 400 MG TABLET GT SCH (20:16)
[2023-04-29] MEDS: MULTIVIT, IRON, MIN NO. 8, FA TABLET GT SCH (20:16)
[2023-04-30] MEDS: NUTRISOURCE FIBER 4 GM PACKET GT SCH ×3 (01:00→17:24)
[2023-04-30] MEDS: VITAL AF 1.2 1,000 ML LIQUID GT PRN (02:00)
[2023-04-30] MEDS: POLYVINYL ALCOHOL OPHT DROPS 15 ML BOTTLE EACHEYE SCH ×2 (05:56→17:24)
[2023-04-30] MEDS: OMEPRAZOLE 40 MG CAPSULE.DR GT SCH (05:56)
[2023-04-30] MEDS: HYDROGEN PEROXIDE 3% 118 ML BOTTLE TP SCH ×2 (07:13→19:11)
[2023-04-30 07:37] VITALS: TEMP 98.2
[2023-04-30] MEDS: METOPROLOL TARTRATE 25 MG TABLET GT SCH ×2 (09:00→21:08)
[2023-04-30] MEDS: levETIRAcetam 500 MG/5 ML LIQUID UDC GT SCH ×2 (09:42→21:08)
[2023-04-30] MEDS: ASPIRIN 81 MG TAB.CHEW GT SCH (09:42)
[2023-04-30] MEDS: DOCUSATE SODIUM 100 MG/10 ML LIQUID UDC GT SCH ×2 (09:42→21:08)
[2023-04-30] MEDS: CHLORHEXIDINE GLUCONATE 15 ML MOUTHWASH MM SCH (09:43)
[2023-04-30] MEDS: REMEDY ESSENTIAL ZINC PASTE 113 GM TP SCH (09:43)
[2023-04-30] MEDS: AMIODARONE 100 MG GT SCH (09:43)
[2023-04-30] MEDS: DIAZEPAM 5 MG TABLET GT SCH ×2 (09:43→21:09)
[2023-04-30] MEDS: PHENOBARBITAL 64.8 MG TABLET GT SCH ×2 (09:43→21:08)
[2023-04-30] MEDS: COD LIVER OIL/ZINC OXIDE OINT 113 GM TUBE TP SCH (09:43)
[2023-04-30 20:00] VITALS: TEMP 98.3
[2023-04-30] MEDS: MAGNESIUM OXIDE 400 MG TABLET GT SCH (21:09)
[2023-04-30] MEDS: MULTIVIT, IRON, MIN NO. 8, FA TABLET GT SCH (21:09)
[2023-05-01] MEDS: NUTRISOURCE FIBER 4 GM PACKET GT SCH ×3 (01:00→17:57)
[2023-05-01] MEDS: OMEPRAZOLE 40 MG CAPSULE.DR GT SCH (06:31)
[2023-05-01] MEDS: POLYVINYL ALCOHOL OPHT DROPS 15 ML BOTTLE EACHEYE SCH ×2 (06:31→17:57)
[2023-05-01 07:43] VITALS: TEMP 97.7
[2023-05-01] MEDS: REMEDY ESSENTIAL ZINC PASTE 113 GM TP SCH (09:00)
[2023-05-01] MEDS: HYDROGEN PEROXIDE 3% 118 ML BOTTLE TP SCH ×2 (09:00→19:07)
[2023-05-01] MEDS: METOPROLOL TARTRATE 25 MG TABLET GT SCH ×2 (09:00→21:00)
[2023-05-01] MEDS: DOCUSATE SODIUM 100 MG/10 ML LIQUID UDC GT SCH ×2 (09:26→21:16)
[2023-05-01] MEDS: ASPIRIN 81 MG TAB.CHEW GT SCH (09:26)
[2023-05-01] MEDS: levETIRAcetam 500 MG/5 ML LIQUID UDC GT SCH ×2 (09:27→21:16)
[2023-05-01] MEDS: AMIODARONE 100 MG GT SCH (09:29)
[2023-05-01] MEDS: PHENOBARBITAL 64.8 MG TABLET GT SCH ×2 (09:29→21:18)
[2023-05-01] MEDS: COD LIVER OIL/ZINC OXIDE OINT 113 GM TUBE TP SCH (09:30)
[2023-05-01] MEDS: DIAZEPAM 5 MG TABLET GT SCH ×2 (09:30→21:18)
[2023-05-01] MEDS: CHLORHEXIDINE GLUCONATE 15 ML MOUTHWASH MM SCH (09:30)
[2023-05-01] MEDS: VITAL AF 1.2 1,000 ML LIQUID GT PRN (12:48)
[2023-05-01 20:00] VITALS: TEMP 98.7
[2023-05-01] MEDS: MAGNESIUM OXIDE 400 MG TABLET GT SCH (21:18)
[2023-05-01] MEDS: MULTIVIT, IRON, MIN NO. 8, FA TABLET GT SCH (21:18)
[2023-05-02] MEDS: NUTRISOURCE FIBER 4 GM PACKET GT SCH ×3 (01:00→17:00)
[2023-05-02] MEDS: POLYVINYL ALCOHOL OPHT DROPS 15 ML BOTTLE EACHEYE SCH ×2 (05:53→18:06)
[2023-05-02] MEDS: OMEPRAZOLE 40 MG CAPSULE.DR GT SCH (05:53)
[2023-05-02] MEDS: HYDROGEN PEROXIDE 3% 118 ML BOTTLE TP SCH ×2 (07:18→19:27)
[2023-05-02 07:48] VITALS: TEMP 97.2
[2023-05-02] MEDS: ASPIRIN 81 MG TAB.CHEW GT SCH (09:27)
[2023-05-02] MEDS: DOCUSATE SODIUM 100 MG/10 ML LIQUID UDC GT SCH ×2 (09:28→20:55)
[2023-05-02] MEDS: levETIRAcetam 500 MG/5 ML LIQUID UDC GT SCH ×2 (09:29→20:55)
[2023-05-02] MEDS: AMIODARONE 100 MG GT SCH (09:30)
[2023-05-02] MEDS: CHLORHEXIDINE GLUCONATE 15 ML MOUTHWASH MM SCH (09:30)
[2023-05-02] MEDS: COD LIVER OIL/ZINC OXIDE OINT 113 GM TUBE TP SCH (09:30)
[2023-05-02] MEDS: PHENOBARBITAL 64.8 MG TABLET GT SCH ×2 (09:30→20:56)
[2023-05-02] MEDS: DIAZEPAM 5 MG TABLET GT SCH ×2 (09:30→21:01)
[2023-05-02] MEDS: REMEDY ESSENTIAL ZINC PASTE 113 GM TP SCH (09:30)
[2023-05-02] MEDS: METOPROLOL TARTRATE 25 MG TABLET GT SCH ×2 (09:30→20:56)
[2023-05-02 11:30] VITALS: O2SAT 99
[2023-05-02 20:00] VITALS: TEMP 98.2
[2023-05-02] MEDS: MULTIVIT, IRON, MIN NO. 8, FA TABLET GT SCH (20:56)
[2023-05-02] MEDS: MAGNESIUM OXIDE 400 MG TABLET GT SCH (20:56)
[2023-05-03] MEDS: NUTRISOURCE FIBER 4 GM PACKET GT SCH ×3 (01:00→17:32)
[2023-05-03] MEDS: POLYVINYL ALCOHOL OPHT DROPS 15 ML BOTTLE EACHEYE SCH ×2 (06:05→17:32)
[2023-05-03] MEDS: OMEPRAZOLE 40 MG CAPSULE.DR GT SCH (06:06)
[2023-05-03] MEDS: HYDROGEN PEROXIDE 3% 118 ML BOTTLE TP SCH ×2 (07:10→19:12)
[2023-05-03 07:41] VITALS: TEMP 97.3
[2023-05-03] MEDS: CHLORHEXIDINE GLUCONATE 15 ML MOUTHWASH MM SCH (09:00)
[2023-05-03] MEDS: METOPROLOL TARTRATE 25 MG TABLET GT SCH ×2 (09:00→21:00)
[2023-05-03] MEDS: DIAZEPAM 5 MG TABLET GT SCH ×2 (09:00→21:00)
[2023-05-03] MEDS: AMIODARONE 100 MG GT SCH (09:00)
[2023-05-03] MEDS: levETIRAcetam 500 MG/5 ML LIQUID UDC GT SCH ×2 (09:00→21:00)
[2023-05-03] MEDS: REMEDY ESSENTIAL ZINC PASTE 113 GM TP SCH (09:00)
[2023-05-03] MEDS: ASPIRIN 81 MG TAB.CHEW GT SCH (09:00)
[2023-05-03] MEDS: PHENOBARBITAL 64.8 MG TABLET GT SCH ×2 (09:00→21:00)
[2023-05-03] MEDS: DOCUSATE SODIUM 100 MG/10 ML LIQUID UDC GT SCH ×2 (09:00→21:00)
[2023-05-03] MEDS: COD LIVER OIL/ZINC OXIDE OINT 113 GM TUBE TP SCH (09:00)
[2023-05-03] MEDS: VITAL AF 1.2 1,000 ML LIQUID GT PRN (14:05)
[2023-05-03 20:00] VITALS: TEMP 96.3
[2023-05-03] MEDS: MAGNESIUM OXIDE 400 MG TABLET GT SCH (21:00)
[2023-05-03] MEDS: MULTIVIT, IRON, MIN NO. 8, FA TABLET GT SCH (21:00)
[2023-05-04] MEDS: NUTRISOURCE FIBER 4 GM PACKET GT SCH ×3 (01:00→17:02)
[2023-05-04] MEDS: OMEPRAZOLE 40 MG CAPSULE.DR GT SCH (06:00)
[2023-05-04] MEDS: POLYVINYL ALCOHOL OPHT DROPS 15 ML BOTTLE EACHEYE SCH ×2 (06:00→17:02)
[2023-05-04 07:54] VITALS: TEMP 97.2
[2023-05-04] MEDS: HYDROGEN PEROXIDE 3% 118 ML BOTTLE TP SCH ×2 (09:00→19:08)
[2023-05-04] MEDS: ASPIRIN 81 MG TAB.CHEW GT SCH (09:13)
[2023-05-04] MEDS: levETIRAcetam 500 MG/5 ML LIQUID UDC GT SCH ×2 (09:14→21:07)
[2023-05-04] MEDS: PHENOBARBITAL 64.8 MG TABLET GT SCH ×2 (09:14→21:10)
[2023-05-04] MEDS: METOPROLOL TARTRATE 25 MG TABLET GT SCH ×2 (09:14→21:08)
[2023-05-04] MEDS: COD LIVER OIL/ZINC OXIDE OINT 113 GM TUBE TP SCH (09:15)
[2023-05-04] MEDS: REMEDY ESSENTIAL ZINC PASTE 113 GM TP SCH (09:15)
[2023-05-04] MEDS: DIAZEPAM 5 MG TABLET GT SCH ×2 (09:15→21:09)
[2023-05-04] MEDS: CHLORHEXIDINE GLUCONATE 15 ML MOUTHWASH MM SCH (09:15)
[2023-05-04] MEDS: AMIODARONE 100 MG GT SCH (09:15)
[2023-05-04] MEDS: DOCUSATE SODIUM 100 MG/10 ML LIQUID UDC GT SCH ×2 (09:22→21:07)
[2023-05-04] MEDS: VITAL AF 1.2 1,000 ML LIQUID GT PRN (18:44)
[2023-05-04 20:00] VITALS: TEMP 96.9
[2023-05-04] MEDS: MAGNESIUM OXIDE 400 MG TABLET GT SCH (21:09)
[2023-05-04] MEDS: MULTIVIT, IRON, MIN NO. 8, FA TABLET GT SCH (21:09)
[2023-05-05] MEDS: NUTRISOURCE FIBER 4 GM PACKET GT SCH ×3 (01:00→17:17)
[2023-05-05] MEDS: POLYVINYL ALCOHOL OPHT DROPS 15 ML BOTTLE EACHEYE SCH ×2 (05:02→17:17)
[2023-05-05] MEDS: OMEPRAZOLE 40 MG CAPSULE.DR GT SCH (05:02)
[2023-05-05 08:05] VITALS: TEMP 98.9
[2023-05-05] MEDS: HYDROGEN PEROXIDE 3% 118 ML BOTTLE TP SCH ×2 (08:17→19:12)
[2023-05-05] MEDS: DOCUSATE SODIUM 100 MG/10 ML LIQUID UDC GT SCH ×2 (08:37→20:22)
[2023-05-05] MEDS: ASPIRIN 81 MG TAB.CHEW GT SCH (08:37)
[2023-05-05] MEDS: levETIRAcetam 500 MG/5 ML LIQUID UDC GT SCH ×2 (08:39→20:22)
[2023-05-05] MEDS: METOPROLOL TARTRATE 25 MG TABLET GT SCH ×2 (08:40→20:23)
[2023-05-05] MEDS: AMIODARONE 100 MG GT SCH (08:40)
[2023-05-05] MEDS: PHENOBARBITAL 64.8 MG TABLET GT SCH ×2 (08:40→20:23)
[2023-05-05] MEDS: COD LIVER OIL/ZINC OXIDE OINT 113 GM TUBE TP SCH (08:41)
[2023-05-05] MEDS: REMEDY ESSENTIAL ZINC PASTE 113 GM TP SCH (08:41)
[2023-05-05] MEDS: DIAZEPAM 5 MG TABLET GT SCH ×2 (08:41→20:23)
[2023-05-05] MEDS: CHLORHEXIDINE GLUCONATE 15 ML MOUTHWASH MM SCH (08:41)
[2023-05-05] MEDS: MULTIVIT, IRON, MIN NO. 8, FA TABLET GT SCH (20:23)
[2023-05-05] MEDS: MAGNESIUM OXIDE 400 MG TABLET GT SCH (20:23)
[2023-05-05 20:35] VITALS: TEMP 98
[2023-05-06] MEDS: NUTRISOURCE FIBER 4 GM PACKET GT SCH ×3 (01:43→17:47)
[2023-05-06] MEDS: VITAL AF 1.2 1,000 ML LIQUID GT PRN (03:29)
[2023-05-06] MEDS: OMEPRAZOLE 40 MG CAPSULE.DR GT SCH (05:28)
[2023-05-06] MEDS: POLYVINYL ALCOHOL OPHT DROPS 15 ML BOTTLE EACHEYE SCH ×2 (05:28→17:47)
[2023-05-06 07:37] VITALS: TEMP 97.8
[2023-05-06] MEDS: HYDROGEN PEROXIDE 3% 118 ML BOTTLE TP SCH ×2 (09:00→19:19)
[2023-05-06] MEDS: ASPIRIN 81 MG TAB.CHEW GT SCH (09:51)
[2023-05-06] MEDS: PHENOBARBITAL 64.8 MG TABLET GT SCH ×2 (09:52→20:36)
[2023-05-06] MEDS: levETIRAcetam 500 MG/5 ML LIQUID UDC GT SCH ×2 (09:52→20:35)
[2023-05-06] MEDS: DOCUSATE SODIUM 100 MG/10 ML LIQUID UDC GT SCH ×2 (09:52→20:35)
[2023-05-06] MEDS: DIAZEPAM 5 MG TABLET GT SCH ×2 (09:55→20:36)
[2023-05-06] MEDS: AMIODARONE 100 MG GT SCH (09:55)
[2023-05-06] MEDS: COD LIVER OIL/ZINC OXIDE OINT 113 GM TUBE TP SCH (09:56)
[2023-05-06] MEDS: REMEDY ESSENTIAL ZINC PASTE 113 GM TP SCH (09:56)
[2023-05-06] MEDS: CHLORHEXIDINE GLUCONATE 15 ML MOUTHWASH MM SCH (09:56)
[2023-05-06] MEDS: METOPROLOL TARTRATE 25 MG TABLET GT SCH ×2 (09:59→20:36)
[2023-05-06 20:07] VITALS: TEMP 98.3
[2023-05-06] MEDS: MULTIVIT, IRON, MIN NO. 8, FA TABLET GT SCH (20:36)
[2023-05-06] MEDS: MAGNESIUM OXIDE 400 MG TABLET GT SCH (20:36)
[2023-05-07] MEDS: NUTRISOURCE FIBER 4 GM PACKET GT SCH ×3 (01:03→17:52)
[2023-05-07] MEDS: OMEPRAZOLE 40 MG CAPSULE.DR GT SCH (05:35)
[2023-05-07] MEDS: POLYVINYL ALCOHOL OPHT DROPS 15 ML BOTTLE EACHEYE SCH ×2 (05:35→17:52)
[2023-05-07 07:46] VITALS: TEMP 97.8
[2023-05-07] MEDS: PHENOBARBITAL 64.8 MG TABLET GT SCH ×2 (09:00→21:00)
[2023-05-07] MEDS: levETIRAcetam 500 MG/5 ML LIQUID UDC GT SCH ×2 (09:00→21:00)
[2023-05-07] MEDS: METOPROLOL TARTRATE 25 MG TABLET GT SCH ×2 (09:00→21:00)
[2023-05-07] MEDS: HYDROGEN PEROXIDE 3% 118 ML BOTTLE TP SCH ×2 (09:00→22:27)
[2023-05-07] MEDS: AMIODARONE 100 MG GT SCH (09:00)
[2023-05-07] MEDS: CHLORHEXIDINE GLUCONATE 15 ML MOUTHWASH MM SCH (09:00)
[2023-05-07] MEDS: DOCUSATE SODIUM 100 MG/10 ML LIQUID UDC GT SCH ×2 (09:00→21:00)
[2023-05-07] MEDS: DIAZEPAM 5 MG TABLET GT SCH ×2 (09:00→21:00)
[2023-05-07] MEDS: ASPIRIN 81 MG TAB.CHEW GT SCH (09:00)
[2023-05-07] MEDS: REMEDY ESSENTIAL ZINC PASTE 113 GM TP SCH (09:00)
[2023-05-07] MEDS: VITAL AF 1.2 1,000 ML LIQUID GT PRN (10:30)
[2023-05-07 20:43] VITALS: TEMP 98.3
[2023-05-07] MEDS: MULTIVIT, IRON, MIN NO. 8, FA TABLET GT SCH (21:00)
[2023-05-07] MEDS: MAGNESIUM OXIDE 400 MG TABLET GT SCH (21:00)
[2023-05-08] MEDS: NUTRISOURCE FIBER 4 GM PACKET GT SCH ×3 (01:24→18:00)
[2023-05-08] MEDS: OMEPRAZOLE 40 MG CAPSULE.DR GT SCH (06:21)
[2023-05-08] MEDS: POLYVINYL ALCOHOL OPHT DROPS 15 ML BOTTLE EACHEYE SCH ×2 (06:21→18:04)
[2023-05-08 08:00] VITALS: TEMP 97.6
[2023-05-08] MEDS: HYDROGEN PEROXIDE 3% 118 ML BOTTLE TP SCH ×2 (08:06→19:14)
[2023-05-08] MEDS: ASPIRIN 81 MG TAB.CHEW GT SCH (08:58)
[2023-05-08] MEDS: DOCUSATE SODIUM 100 MG/10 ML LIQUID UDC GT SCH ×2 (08:58→21:37)
[2023-05-08] MEDS: levETIRAcetam 500 MG/5 ML LIQUID UDC GT SCH ×2 (08:58→21:36)
[2023-05-08] MEDS: METOPROLOL TARTRATE 25 MG TABLET GT SCH ×2 (08:59→21:37)
[2023-05-08] MEDS: DIAZEPAM 5 MG TABLET GT SCH ×2 (09:00→21:41)
[2023-05-08] MEDS: AMIODARONE 100 MG GT SCH (09:00)
[2023-05-08] MEDS: PHENOBARBITAL 64.8 MG TABLET GT SCH ×2 (09:00→21:41)
[2023-05-08] MEDS: CHLORHEXIDINE GLUCONATE 15 ML MOUTHWASH MM SCH (09:01)
[2023-05-08] MEDS: REMEDY ESSENTIAL ZINC PASTE 113 GM TP SCH (09:01)
[2023-05-08 20:00] VITALS: TEMP 98
[2023-05-08] MEDS: MULTIVIT, IRON, MIN NO. 8, FA TABLET GT SCH (21:37)
[2023-05-08] MEDS: MAGNESIUM OXIDE 400 MG TABLET GT SCH (21:37)
[2023-05-09] MEDS: NUTRISOURCE FIBER 4 GM PACKET GT SCH ×3 (01:30→17:07)
[2023-05-09] MEDS: VITAL AF 1.2 1,000 ML LIQUID GT PRN ×2 (03:43→23:49)
[2023-05-09] MEDS: POLYVINYL ALCOHOL OPHT DROPS 15 ML BOTTLE EACHEYE SCH ×2 (05:59→17:07)
[2023-05-09] MEDS: OMEPRAZOLE 40 MG CAPSULE.DR GT SCH (05:59)
[2023-05-09 08:00] VITALS: TEMP 97.6
[2023-05-09] MEDS: METOPROLOL TARTRATE 25 MG TABLET GT SCH ×2 (09:00→21:30)
[2023-05-09] MEDS: DOCUSATE SODIUM 100 MG/10 ML LIQUID UDC GT SCH ×2 (09:00→21:29)
[2023-05-09] MEDS: ASPIRIN 81 MG TAB.CHEW GT SCH (09:00)
[2023-05-09] MEDS: levETIRAcetam 500 MG/5 ML LIQUID UDC GT SCH ×2 (09:00→21:30)
[2023-05-09] MEDS: HYDROGEN PEROXIDE 3% 118 ML BOTTLE TP SCH ×2 (09:00→19:33)
[2023-05-09] MEDS: PHENOBARBITAL 64.8 MG TABLET GT SCH ×2 (09:01→21:30)
[2023-05-09] MEDS: AMIODARONE 100 MG GT SCH (09:01)
[2023-05-09] MEDS: DIAZEPAM 5 MG TABLET GT SCH ×2 (09:02→21:30)
[2023-05-09] MEDS: CHLORHEXIDINE GLUCONATE 15 ML MOUTHWASH MM SCH (09:03)
[2023-05-09] MEDS: REMEDY ESSENTIAL ZINC PASTE 113 GM TP SCH (09:03)
[2023-05-09] MEDS ORDERED: INFLUENZA VACCINE 2023-2024 0.5 ML DISP.SYRIN IM ONE (13:00)
[2023-05-09 19:43] VITALS: TEMP 98
[2023-05-09] MEDS: MULTIVIT, IRON, MIN NO. 8, FA TABLET GT SCH (21:30)
[2023-05-09] MEDS: MAGNESIUM OXIDE 400 MG TABLET GT SCH (21:30)
[2023-05-10] MEDS: NUTRISOURCE FIBER 4 GM PACKET GT SCH ×3 (01:15→17:16)
[2023-05-10 04:00] VITALS: TEMP 98.3
[2023-05-10] MEDS: OMEPRAZOLE 40 MG CAPSULE.DR GT SCH (05:20)
[2023-05-10] MEDS: POLYVINYL ALCOHOL OPHT DROPS 15 ML BOTTLE EACHEYE SCH ×2 (05:20→17:16)
[2023-05-10 07:37] VITALS: TEMP 97.2
[2023-05-10] MEDS: HYDROGEN PEROXIDE 3% 118 ML BOTTLE TP SCH ×2 (08:54→19:17)
[2023-05-10] MEDS: ASPIRIN 81 MG TAB.CHEW GT SCH (09:53)
[2023-05-10] MEDS: DOCUSATE SODIUM 100 MG/10 ML LIQUID UDC GT SCH ×2 (09:53→21:00)
[2023-05-10] MEDS: levETIRAcetam 500 MG/5 ML LIQUID UDC GT SCH ×2 (09:55→21:00)
[2023-05-10] MEDS: PHENOBARBITAL 64.8 MG TABLET GT SCH ×2 (09:57→21:00)
[2023-05-10] MEDS: METOPROLOL TARTRATE 25 MG TABLET GT SCH ×2 (09:57→21:00)
[2023-05-10] MEDS: CHLORHEXIDINE GLUCONATE 15 ML MOUTHWASH MM SCH (09:57)
[2023-05-10] MEDS: DIAZEPAM 5 MG TABLET GT SCH ×2 (09:57→21:00)
[2023-05-10] MEDS: AMIODARONE 100 MG GT SCH (09:57)
[2023-05-10] MEDS: REMEDY ESSENTIAL ZINC PASTE 113 GM TP SCH (09:58)
[2023-05-10 20:00] VITALS: TEMP 97.6
[2023-05-10] MEDS: MAGNESIUM OXIDE 400 MG TABLET GT SCH (21:00)
[2023-05-10] MEDS: MULTIVIT, IRON, MIN NO. 8, FA TABLET GT SCH (21:00)
[2023-05-11] MEDS: NUTRISOURCE FIBER 4 GM PACKET GT SCH ×3 (01:19→16:36)
[2023-05-11] MEDS: VITAL AF 1.2 1,000 ML LIQUID GT PRN (03:12)
[2023-05-11] MEDS: OMEPRAZOLE 40 MG CAPSULE.DR GT SCH (06:33)
[2023-05-11] MEDS: POLYVINYL ALCOHOL OPHT DROPS 15 ML BOTTLE EACHEYE SCH ×2 (06:33→17:09)
[2023-05-11 07:38] VITALS: TEMP 97.6
[2023-05-11] MEDS: DOCUSATE SODIUM 100 MG/10 ML LIQUID UDC GT SCH ×2 (08:56→21:53)
[2023-05-11] MEDS: ASPIRIN 81 MG TAB.CHEW GT SCH (08:56)
[2023-05-11] MEDS: levETIRAcetam 500 MG/5 ML LIQUID UDC GT SCH ×2 (08:57→21:53)
[2023-05-11] MEDS: METOPROLOL TARTRATE 25 MG TABLET GT SCH ×2 (08:58→21:53)
[2023-05-11] MEDS: AMIODARONE 100 MG GT SCH (08:58)
[2023-05-11] MEDS: PHENOBARBITAL 64.8 MG TABLET GT SCH ×2 (08:58→21:53)
[2023-05-11] MEDS: REMEDY ESSENTIAL ZINC PASTE 113 GM TP SCH (08:59)
[2023-05-11] MEDS: CHLORHEXIDINE GLUCONATE 15 ML MOUTHWASH MM SCH (08:59)
[2023-05-11] MEDS: DIAZEPAM 5 MG TABLET GT SCH ×2 (08:59→21:53)
[2023-05-11] MEDS: HYDROGEN PEROXIDE 3% 118 ML BOTTLE TP SCH ×2 (09:00→21:18)
[2023-05-11 20:00] VITALS: TEMP 98.4
[2023-05-11] MEDS: MULTIVIT, IRON, MIN NO. 8, FA TABLET GT SCH (21:53)
[2023-05-11] MEDS: MAGNESIUM OXIDE 400 MG TABLET GT SCH (21:53)
[2023-05-12] MEDS: NUTRISOURCE FIBER 4 GM PACKET GT SCH ×3 (01:05→17:46)
[2023-05-12] MEDS: OMEPRAZOLE 40 MG CAPSULE.DR GT SCH (05:37)
[2023-05-12] MEDS: POLYVINYL ALCOHOL OPHT DROPS 15 ML BOTTLE EACHEYE SCH ×2 (05:37→17:46)
[2023-05-12] MEDS: HYDROGEN PEROXIDE 3% 118 ML BOTTLE TP SCH ×2 (07:22→19:23)
[2023-05-12 07:57] VITALS: TEMP 98.6
[2023-05-12] MEDS: METOPROLOL TARTRATE 25 MG TABLET GT SCH ×2 (09:00→21:52)
[2023-05-12] MEDS: DOCUSATE SODIUM 100 MG/10 ML LIQUID UDC GT SCH ×2 (09:03→21:51)
[2023-05-12] MEDS: ASPIRIN 81 MG TAB.CHEW GT SCH (09:03)
[2023-05-12] MEDS: levETIRAcetam 500 MG/5 ML LIQUID UDC GT SCH ×2 (09:03→21:51)
[2023-05-12] MEDS: CHLORHEXIDINE GLUCONATE 15 ML MOUTHWASH MM SCH (09:06)
[2023-05-12] MEDS: DIAZEPAM 5 MG TABLET GT SCH ×2 (09:06→21:52)
[2023-05-12] MEDS: REMEDY ESSENTIAL ZINC PASTE 113 GM TP SCH (09:06)
[2023-05-12] MEDS: PHENOBARBITAL 64.8 MG TABLET GT SCH ×2 (09:06→21:52)
[2023-05-12] MEDS: AMIODARONE 100 MG GT SCH (09:06)
[2023-05-12] MEDS: VITAL AF 1.2 1,000 ML LIQUID GT PRN (13:07)
[2023-05-12 20:00] VITALS: TEMP 96.9
[2023-05-12] MEDS: MAGNESIUM OXIDE 400 MG TABLET GT SCH (21:52)
[2023-05-12] MEDS: MULTIVIT, IRON, MIN NO. 8, FA TABLET GT SCH (21:52)
[2023-05-13] MEDS: NUTRISOURCE FIBER 4 GM PACKET GT SCH ×3 (00:22→17:19)
[2023-05-13] MEDS: POLYVINYL ALCOHOL OPHT DROPS 15 ML BOTTLE EACHEYE SCH ×2 (06:07→17:20)
[2023-05-13] MEDS: OMEPRAZOLE 40 MG CAPSULE.DR GT SCH (06:07)
[2023-05-13 07:40] VITALS: TEMP 98.2
[2023-05-13] MEDS: HYDROGEN PEROXIDE 3% 118 ML BOTTLE TP SCH ×2 (08:57→19:34)
[2023-05-13] MEDS: DOCUSATE SODIUM 100 MG/10 ML LIQUID UDC GT SCH ×2 (09:11→21:41)
[2023-05-13] MEDS: levETIRAcetam 500 MG/5 ML LIQUID UDC GT SCH ×2 (09:11→21:41)
[2023-05-13] MEDS: ASPIRIN 81 MG TAB.CHEW GT SCH (09:11)
[2023-05-13] MEDS: METOPROLOL TARTRATE 25 MG TABLET GT SCH ×2 (09:12→21:42)
[2023-05-13] MEDS: PHENOBARBITAL 64.8 MG TABLET GT SCH ×2 (09:13→21:42)
[2023-05-13] MEDS: AMIODARONE 100 MG GT SCH (09:13)
[2023-05-13] MEDS: DIAZEPAM 5 MG TABLET GT SCH ×2 (09:13→21:42)
[2023-05-13] MEDS: CHLORHEXIDINE GLUCONATE 15 ML MOUTHWASH MM SCH (09:14)
[2023-05-13] MEDS: REMEDY ESSENTIAL ZINC PASTE 113 GM TP SCH (09:14)
[2023-05-13] MEDS: VITAL AF 1.2 1,000 ML LIQUID GT PRN (14:28)
[2023-05-13 20:00] VITALS: TEMP 98.2
[2023-05-13] MEDS: MULTIVIT, IRON, MIN NO. 8, FA TABLET GT SCH (21:42)
[2023-05-13] MEDS: MAGNESIUM OXIDE 400 MG TABLET GT SCH (21:42)
[2023-05-14] MEDS: NUTRISOURCE FIBER 4 GM PACKET GT SCH ×3 (01:23→16:43)
[2023-05-14] MEDS: POLYVINYL ALCOHOL OPHT DROPS 15 ML BOTTLE EACHEYE SCH ×2 (05:50→17:09)
[2023-05-14] MEDS: OMEPRAZOLE 40 MG CAPSULE.DR GT SCH (05:50)
[2023-05-14 07:29] VITALS: TEMP 98.1
[2023-05-14] MEDS: ASPIRIN 81 MG TAB.CHEW GT SCH (08:11)
[2023-05-14] MEDS: levETIRAcetam 500 MG/5 ML LIQUID UDC GT SCH ×2 (08:12→20:18)
[2023-05-14] MEDS: DOCUSATE SODIUM 100 MG/10 ML LIQUID UDC GT SCH ×2 (08:12→20:17)
[2023-05-14] MEDS: AMIODARONE 100 MG GT SCH (08:14)
[2023-05-14] MEDS: REMEDY ESSENTIAL ZINC PASTE 113 GM TP SCH (08:14)
[2023-05-14] MEDS: CHLORHEXIDINE GLUCONATE 15 ML MOUTHWASH MM SCH (08:14)
[2023-05-14] MEDS: DIAZEPAM 5 MG TABLET GT SCH ×2 (08:20→20:25)
[2023-05-14] MEDS: PHENOBARBITAL 64.8 MG TABLET GT SCH ×2 (08:20→20:22)
[2023-05-14] MEDS: METOPROLOL TARTRATE 25 MG TABLET GT SCH ×2 (08:24→20:22)
[2023-05-14] MEDS: HYDROGEN PEROXIDE 3% 118 ML BOTTLE TP SCH ×2 (09:00→19:21)
[2023-05-14 20:00] VITALS: TEMP 98
[2023-05-14] MEDS: MAGNESIUM OXIDE 400 MG TABLET GT SCH (20:23)
[2023-05-14] MEDS: MULTIVIT, IRON, MIN NO. 8, FA TABLET GT SCH (20:24)
[2023-05-15] MEDS: VITAL AF 1.2 1,000 ML LIQUID GT PRN (01:08)
[2023-05-15] MEDS: NUTRISOURCE FIBER 4 GM PACKET GT SCH ×3 (01:08→17:00)
[2023-05-15] MEDS: POLYVINYL ALCOHOL OPHT DROPS 15 ML BOTTLE EACHEYE SCH ×2 (06:12→18:18)
[2023-05-15] MEDS: OMEPRAZOLE 40 MG CAPSULE.DR GT SCH (06:13)
[2023-05-15 07:35] VITALS: TEMP 98.2
[2023-05-15] MEDS: levETIRAcetam 500 MG/5 ML LIQUID UDC GT SCH ×2 (09:00→20:13)
[2023-05-15] MEDS: REMEDY ESSENTIAL ZINC PASTE 113 GM TP SCH (09:00)
[2023-05-15] MEDS: AMIODARONE 100 MG GT SCH (09:00)
[2023-05-15] MEDS: METOPROLOL TARTRATE 25 MG TABLET GT SCH ×2 (09:00→20:15)
[2023-05-15] MEDS: HYDROGEN PEROXIDE 3% 118 ML BOTTLE TP SCH ×2 (09:00→21:00)
[2023-05-15] MEDS: ASPIRIN 81 MG TAB.CHEW GT SCH (09:00)
[2023-05-15] MEDS: DOCUSATE SODIUM 100 MG/10 ML LIQUID UDC GT SCH ×2 (09:00→20:18)
[2023-05-15] MEDS: CHLORHEXIDINE GLUCONATE 15 ML MOUTHWASH MM SCH (09:00)
[2023-05-15] MEDS: DIAZEPAM 5 MG TABLET GT SCH ×2 (09:00→20:17)
[2023-05-15] MEDS: PHENOBARBITAL 64.8 MG TABLET GT SCH ×2 (09:00→20:16)
[2023-05-15 20:00] VITALS: TEMP 98.1
[2023-05-15] MEDS: MULTIVIT, IRON, MIN NO. 8, FA TABLET GT SCH (20:16)
[2023-05-15] MEDS: MAGNESIUM OXIDE 400 MG TABLET GT SCH (20:16)
[2023-05-16] MEDS: NUTRISOURCE FIBER 4 GM PACKET GT SCH ×3 (01:00→17:33)
[2023-05-16] MEDS: OMEPRAZOLE 40 MG CAPSULE.DR GT SCH (05:45)
[2023-05-16] MEDS: POLYVINYL ALCOHOL OPHT DROPS 15 ML BOTTLE EACHEYE SCH ×2 (05:45→17:33)
[2023-05-16 08:02] VITALS: TEMP 98.6
[2023-05-16] MEDS: HYDROGEN PEROXIDE 3% 118 ML BOTTLE TP SCH ×2 (09:00→19:12)
[2023-05-16] MEDS: levETIRAcetam 500 MG/5 ML LIQUID UDC GT SCH ×2 (09:36→21:00)
[2023-05-16] MEDS: ASPIRIN 81 MG TAB.CHEW GT SCH (09:36)
[2023-05-16] MEDS: METOPROLOL TARTRATE 25 MG TABLET GT SCH ×2 (09:36→21:00)
[2023-05-16] MEDS: PHENOBARBITAL 64.8 MG TABLET GT SCH ×2 (09:36→21:00)
[2023-05-16] MEDS: AMIODARONE 100 MG GT SCH (09:36)
[2023-05-16] MEDS: DOCUSATE SODIUM 100 MG/10 ML LIQUID UDC GT SCH ×2 (09:36→21:00)
[2023-05-16] MEDS: DIAZEPAM 5 MG TABLET GT SCH ×2 (09:37→21:00)
[2023-05-16] MEDS: REMEDY ESSENTIAL ZINC PASTE 113 GM TP SCH (09:37)
[2023-05-16] MEDS: CHLORHEXIDINE GLUCONATE 15 ML MOUTHWASH MM SCH (09:37)
[2023-05-16] MEDS: VITAL AF 1.2 1,000 ML LIQUID GT PRN (17:44)
[2023-05-16 19:52] VITALS: TEMP 98.1
[2023-05-16] MEDS: MAGNESIUM OXIDE 400 MG TABLET GT SCH (21:00)
[2023-05-16] MEDS: MULTIVIT, IRON, MIN NO. 8, FA TABLET GT SCH (21:00)
[2023-05-17] MEDS: NUTRISOURCE FIBER 4 GM PACKET GT SCH ×3 (01:12→17:42)
[2023-05-17] MEDS: OMEPRAZOLE 40 MG CAPSULE.DR GT SCH (06:00)
[2023-05-17] MEDS: POLYVINYL ALCOHOL OPHT DROPS 15 ML BOTTLE EACHEYE SCH ×2 (06:00→17:42)
[2023-05-17] MEDS: HYDROGEN PEROXIDE 3% 118 ML BOTTLE TP SCH ×2 (07:26→19:13)
[2023-05-17 07:53] VITALS: TEMP 97
[2023-05-17] MEDS: ASPIRIN 81 MG TAB.CHEW GT SCH (08:50)
[2023-05-17] MEDS: levETIRAcetam 500 MG/5 ML LIQUID UDC GT SCH ×2 (08:51→20:33)
[2023-05-17] MEDS: DOCUSATE SODIUM 100 MG/10 ML LIQUID UDC GT SCH ×2 (08:51→20:33)
[2023-05-17] MEDS: PHENOBARBITAL 64.8 MG TABLET GT SCH ×2 (08:52→20:44)
[2023-05-17] MEDS: AMIODARONE 100 MG GT SCH (08:52)
[2023-05-17] MEDS: METOPROLOL TARTRATE 25 MG TABLET GT SCH ×2 (08:52→20:42)
[2023-05-17] MEDS: DIAZEPAM 5 MG TABLET GT SCH ×2 (08:52→20:45)
[2023-05-17] MEDS: CHLORHEXIDINE GLUCONATE 15 ML MOUTHWASH MM SCH (08:52)
[2023-05-17] MEDS: REMEDY ESSENTIAL ZINC PASTE 113 GM TP SCH (08:53)
[2023-05-17] MEDS: NEOMY/BACITRA/POLYMYXIN B OINT UD PACKET TP SCH ×2 (09:00→20:45)
[2023-05-17 20:00] VITALS: TEMP 98.3
[2023-05-17] MEDS: MAGNESIUM OXIDE 400 MG TABLET GT SCH (20:35)
[2023-05-17] MEDS: MULTIVIT, IRON, MIN NO. 8, FA TABLET GT SCH (20:35)
[2023-05-18] MEDS: VITAL AF 1.2 1,000 ML LIQUID GT PRN (00:07)
[2023-05-18] MEDS: NUTRISOURCE FIBER 4 GM PACKET GT SCH ×3 (01:15→17:11)
[2023-05-18] MEDS: OMEPRAZOLE 40 MG CAPSULE.DR GT SCH (05:17)
[2023-05-18] MEDS: POLYVINYL ALCOHOL OPHT DROPS 15 ML BOTTLE EACHEYE SCH ×2 (05:17→17:11)
[2023-05-18] MEDS: HYDROGEN PEROXIDE 3% 118 ML BOTTLE TP SCH ×2 (07:33→19:14)
[2023-05-18 08:00] VITALS: TEMP 98.7
[2023-05-18] MEDS: DIAZEPAM 5 MG TABLET GT SCH ×2 (09:09→21:46)
[2023-05-18] MEDS: ASPIRIN 81 MG TAB.CHEW GT SCH (09:09)
[2023-05-18] MEDS: METOPROLOL TARTRATE 25 MG TABLET GT SCH ×2 (09:09→21:46)
[2023-05-18] MEDS: NEOMY/BACITRA/POLYMYXIN B OINT UD PACKET TP SCH ×2 (09:09→21:46)
[2023-05-18] MEDS: CHLORHEXIDINE GLUCONATE 15 ML MOUTHWASH MM SCH (09:09)
[2023-05-18] MEDS: AMIODARONE 100 MG GT SCH (09:09)
[2023-05-18] MEDS: DOCUSATE SODIUM 100 MG/10 ML LIQUID UDC GT SCH ×2 (09:09→21:45)
[2023-05-18] MEDS: levETIRAcetam 500 MG/5 ML LIQUID UDC GT SCH ×2 (09:09→21:45)
[2023-05-18] MEDS: REMEDY ESSENTIAL ZINC PASTE 113 GM TP SCH (09:09)
[2023-05-18] MEDS: PHENOBARBITAL 64.8 MG TABLET GT SCH ×2 (09:09→21:46)
[2023-05-18 20:00] VITALS: TEMP 97.8
[2023-05-18] MEDS: MAGNESIUM OXIDE 400 MG TABLET GT SCH (21:46)
[2023-05-18] MEDS: MULTIVIT, IRON, MIN NO. 8, FA TABLET GT SCH (21:46)
[2023-05-19] MEDS: NUTRISOURCE FIBER 4 GM PACKET GT SCH ×3 (01:20→17:30)
[2023-05-19] MEDS: VITAL AF 1.2 1,000 ML LIQUID GT PRN (04:30)
[2023-05-19] MEDS: POLYVINYL ALCOHOL OPHT DROPS 15 ML BOTTLE EACHEYE SCH ×2 (05:06→17:30)
[2023-05-19] MEDS: OMEPRAZOLE 40 MG CAPSULE.DR GT SCH (05:06)
[2023-05-19 07:44] VITALS: TEMP 97.9
[2023-05-19] MEDS: HYDROGEN PEROXIDE 3% 118 ML BOTTLE TP SCH ×2 (07:50→21:16)
[2023-05-19] MEDS: ASPIRIN 81 MG TAB.CHEW GT SCH (08:19)
[2023-05-19] MEDS: levETIRAcetam 500 MG/5 ML LIQUID UDC GT SCH ×2 (08:20→21:45)
[2023-05-19] MEDS: DOCUSATE SODIUM 100 MG/10 ML LIQUID UDC GT SCH ×2 (08:20→21:42)
[2023-05-19] MEDS: METOPROLOL TARTRATE 25 MG TABLET GT SCH ×2 (08:26→21:45)
[2023-05-19] MEDS: PHENOBARBITAL 64.8 MG TABLET GT SCH ×2 (08:27→21:45)
[2023-05-19] MEDS: DIAZEPAM 5 MG TABLET GT SCH ×2 (08:27→21:46)
[2023-05-19] MEDS: AMIODARONE 100 MG GT SCH (08:27)
[2023-05-19] MEDS: REMEDY ESSENTIAL ZINC PASTE 113 GM TP SCH (08:28)
[2023-05-19] MEDS: NEOMY/BACITRA/POLYMYXIN B OINT UD PACKET TP SCH ×2 (08:28→21:46)
[2023-05-19] MEDS: CHLORHEXIDINE GLUCONATE 15 ML MOUTHWASH MM SCH (08:28)
[2023-05-19 20:00] VITALS: TEMP 99.3
[2023-05-19] MEDS: MAGNESIUM OXIDE 400 MG TABLET GT SCH (21:45)
[2023-05-19] MEDS: MULTIVIT, IRON, MIN NO. 8, FA TABLET GT SCH (21:46)
[2023-05-20] MEDS: NUTRISOURCE FIBER 4 GM PACKET GT SCH ×3 (00:09→17:24)
[2023-05-20] MEDS: POLYVINYL ALCOHOL OPHT DROPS 15 ML BOTTLE EACHEYE SCH ×2 (05:17→17:24)
[2023-05-20] MEDS: OMEPRAZOLE 40 MG CAPSULE.DR GT SCH (05:17)
[2023-05-20 07:50] VITALS: TEMP 97.4
[2023-05-20] MEDS: DOCUSATE SODIUM 100 MG/10 ML LIQUID UDC GT SCH ×2 (09:00→21:00)
[2023-05-20] MEDS: NEOMY/BACITRA/POLYMYXIN B OINT UD PACKET TP SCH ×2 (09:00→21:00)
[2023-05-20] MEDS: METOPROLOL TARTRATE 25 MG TABLET GT SCH ×2 (09:00→21:00)
[2023-05-20] MEDS: CHLORHEXIDINE GLUCONATE 15 ML MOUTHWASH MM SCH (09:00)
[2023-05-20] MEDS: levETIRAcetam 500 MG/5 ML LIQUID UDC GT SCH ×2 (09:00→21:00)
[2023-05-20] MEDS: AMIODARONE 100 MG GT SCH (09:00)
[2023-05-20] MEDS: ASPIRIN 81 MG TAB.CHEW GT SCH (09:00)
[2023-05-20] MEDS: REMEDY ESSENTIAL ZINC PASTE 113 GM TP SCH (09:00)
[2023-05-20] MEDS: DIAZEPAM 5 MG TABLET GT SCH ×2 (09:00→21:00)
[2023-05-20] MEDS: PHENOBARBITAL 64.8 MG TABLET GT SCH ×2 (09:00→21:00)
[2023-05-20] MEDS: HYDROGEN PEROXIDE 3% 118 ML BOTTLE TP SCH ×2 (09:31→21:52)
[2023-05-20 20:33] VITALS: TEMP 97.1
[2023-05-20] MEDS: MAGNESIUM OXIDE 400 MG TABLET GT SCH (21:00)
[2023-05-20] MEDS: MULTIVIT, IRON, MIN NO. 8, FA TABLET GT SCH (21:00)
[2023-05-21 00:18] VITALS: TEMP 97.3
[2023-05-21] MEDS: NUTRISOURCE FIBER 4 GM PACKET GT SCH ×3 (01:52→16:51)
[2023-05-21] MEDS: OMEPRAZOLE 40 MG CAPSULE.DR GT SCH (05:32)
[2023-05-21] MEDS: POLYVINYL ALCOHOL OPHT DROPS 15 ML BOTTLE EACHEYE SCH ×2 (05:32→18:03)
[2023-05-21 07:57] VITALS: TEMP 98.4
[2023-05-21] MEDS: levETIRAcetam 500 MG/5 ML LIQUID UDC GT SCH ×2 (08:50→21:00)
[2023-05-21] MEDS: ASPIRIN 81 MG TAB.CHEW GT SCH (08:50)
[2023-05-21] MEDS: DOCUSATE SODIUM 100 MG/10 ML LIQUID UDC GT SCH ×2 (08:50→21:00)
[2023-05-21] MEDS: NEOMY/BACITRA/POLYMYXIN B OINT UD PACKET TP SCH ×2 (08:51→21:00)
[2023-05-21] MEDS: CHLORHEXIDINE GLUCONATE 15 ML MOUTHWASH MM SCH (08:51)
[2023-05-21] MEDS: REMEDY ESSENTIAL ZINC PASTE 113 GM TP SCH (08:51)
[2023-05-21] MEDS: HYDROGEN PEROXIDE 3% 118 ML BOTTLE TP SCH ×2 (08:51→22:21)
[2023-05-21] MEDS: AMIODARONE 100 MG GT SCH (08:55)
[2023-05-21] MEDS: METOPROLOL TARTRATE 25 MG TABLET GT SCH ×2 (08:55→21:00)
[2023-05-21] MEDS: DIAZEPAM 5 MG TABLET GT SCH ×2 (09:01→21:00)
[2023-05-21] MEDS: PHENOBARBITAL 64.8 MG TABLET GT SCH ×2 (09:01→21:00)
[2023-05-21 19:47] VITALS: TEMP 97.8
[2023-05-21] MEDS: MAGNESIUM OXIDE 400 MG TABLET GT SCH (21:00)
[2023-05-21] MEDS: MULTIVIT, IRON, MIN NO. 8, FA TABLET GT SCH (21:00)
[2023-05-22] MEDS: NUTRISOURCE FIBER 4 GM PACKET GT SCH ×3 (01:00→17:00)
[2023-05-22] MEDS: OMEPRAZOLE 40 MG CAPSULE.DR GT SCH (05:17)
[2023-05-22] MEDS: POLYVINYL ALCOHOL OPHT DROPS 15 ML BOTTLE EACHEYE SCH ×2 (05:17→18:23)
[2023-05-22 07:41] VITALS: TEMP 97.1
[2023-05-22] MEDS: METOPROLOL TARTRATE 25 MG TABLET GT SCH ×2 (09:00→21:00)
[2023-05-22] MEDS: REMEDY ESSENTIAL ZINC PASTE 113 GM TP SCH (09:00)
[2023-05-22] MEDS: AMIODARONE 100 MG GT SCH (09:00)
[2023-05-22] MEDS: HYDROGEN PEROXIDE 3% 118 ML BOTTLE TP SCH ×2 (09:00→21:07)
[2023-05-22] MEDS: CHLORHEXIDINE GLUCONATE 15 ML MOUTHWASH MM SCH (09:00)
[2023-05-22] MEDS: PHENOBARBITAL 64.8 MG TABLET GT SCH ×2 (09:00→21:00)
[2023-05-22] MEDS: ASPIRIN 81 MG TAB.CHEW GT SCH (09:00)
[2023-05-22] MEDS: NEOMY/BACITRA/POLYMYXIN B OINT UD PACKET TP SCH ×2 (09:00→21:00)
[2023-05-22] MEDS: DIAZEPAM 5 MG TABLET GT SCH ×2 (09:00→21:00)
[2023-05-22] MEDS: levETIRAcetam 500 MG/5 ML LIQUID UDC GT SCH ×2 (09:00→21:00)
[2023-05-22] MEDS: DOCUSATE SODIUM 100 MG/10 ML LIQUID UDC GT SCH ×2 (09:00→21:00)
[2023-05-22 20:15] VITALS: BP 105/75; TEMP 98.5; O2SAT 97
[2023-05-22] MEDS: MAGNESIUM OXIDE 400 MG TABLET GT SCH (21:00)
[2023-05-22] MEDS: MULTIVIT, IRON, MIN NO. 8, FA TABLET GT SCH (21:00)
[2023-05-23] MEDS: NUTRISOURCE FIBER 4 GM PACKET GT SCH ×3 (01:04→16:32)
[2023-05-23] MEDS: VITAL AF 1.2 1,000 ML LIQUID GT PRN (01:19)
[2023-05-23] MEDS: POLYVINYL ALCOHOL OPHT DROPS 15 ML BOTTLE EACHEYE SCH ×2 (06:40→17:00)
[2023-05-23] MEDS: OMEPRAZOLE 40 MG CAPSULE.DR GT SCH (06:41)
[2023-05-23] MEDS: HYDROGEN PEROXIDE 3% 118 ML BOTTLE TP SCH ×2 (07:30→21:06)
[2023-05-23] MEDS: CHLORHEXIDINE GLUCONATE 15 ML MOUTHWASH MM SCH (09:00)
[2023-05-23] MEDS: NEOMY/BACITRA/POLYMYXIN B OINT UD PACKET TP SCH ×2 (09:00→21:00)
[2023-05-23] MEDS: AMIODARONE 100 MG GT SCH (09:00)
[2023-05-23] MEDS: ASPIRIN 81 MG TAB.CHEW GT SCH (09:00)
[2023-05-23] MEDS: METOPROLOL TARTRATE 25 MG TABLET GT SCH ×2 (09:00→21:00)
[2023-05-23] MEDS: DOCUSATE SODIUM 100 MG/10 ML LIQUID UDC GT SCH ×2 (09:00→21:00)
[2023-05-23] MEDS: REMEDY ESSENTIAL ZINC PASTE 113 GM TP SCH (09:00)
[2023-05-23] MEDS: PHENOBARBITAL 64.8 MG TABLET GT SCH ×2 (09:00→21:00)
[2023-05-23] MEDS: levETIRAcetam 500 MG/5 ML LIQUID UDC GT SCH ×2 (09:00→21:00)
[2023-05-23] MEDS: DIAZEPAM 5 MG TABLET GT SCH ×2 (09:00→21:00)
[2023-05-23 13:37] VITALS: TEMP 97.2
[2023-05-23 20:00] VITALS: TEMP 98.1
[2023-05-23] MEDS: MAGNESIUM OXIDE 400 MG TABLET GT SCH (21:00)
[2023-05-23] MEDS: MULTIVIT, IRON, MIN NO. 8, FA TABLET GT SCH (21:00)
[2023-05-24] MEDS: NUTRISOURCE FIBER 4 GM PACKET GT SCH ×3 (00:54→16:09)
[2023-05-24] MEDS: VITAL AF 1.2 1,000 ML LIQUID GT PRN (03:49)
[2023-05-24] MEDS: OMEPRAZOLE 40 MG CAPSULE.DR GT SCH (06:16)
[2023-05-24] MEDS: POLYVINYL ALCOHOL OPHT DROPS 15 ML BOTTLE EACHEYE SCH ×2 (06:16→17:07)
[2023-05-24 08:13] VITALS: TEMP 98.5
[2023-05-24] MEDS: HYDROGEN PEROXIDE 3% 118 ML BOTTLE TP SCH ×2 (09:00→19:29)
[2023-05-24] MEDS: METOPROLOL TARTRATE 25 MG TABLET GT SCH ×2 (09:00→21:21)
[2023-05-24] MEDS: ASPIRIN 81 MG TAB.CHEW GT SCH (09:31)
[2023-05-24] MEDS: DOCUSATE SODIUM 100 MG/10 ML LIQUID UDC GT SCH ×2 (09:32→21:09)
[2023-05-24] MEDS: levETIRAcetam 500 MG/5 ML LIQUID UDC GT SCH ×2 (09:33→21:21)
[2023-05-24] MEDS: AMIODARONE 100 MG GT SCH (09:34)
[2023-05-24] MEDS: CHLORHEXIDINE GLUCONATE 15 ML MOUTHWASH MM SCH (09:35)
[2023-05-24] MEDS: NEOMY/BACITRA/POLYMYXIN B OINT UD PACKET TP SCH ×2 (09:35→21:21)
[2023-05-24] MEDS: REMEDY ESSENTIAL ZINC PASTE 113 GM TP SCH (09:35)
[2023-05-24] MEDS: PHENOBARBITAL 64.8 MG TABLET GT SCH ×2 (09:42→21:20)
[2023-05-24] MEDS: DIAZEPAM 5 MG TABLET GT SCH ×2 (09:42→21:21)
[2023-05-24] MEDS: MULTIVIT, IRON, MIN NO. 8, FA TABLET GT SCH (21:20)
[2023-05-24] MEDS: MAGNESIUM OXIDE 400 MG TABLET GT SCH (21:20)
[2023-05-24 22:00] VITALS: TEMP 98.4
[2023-05-25] MEDS: NUTRISOURCE FIBER 4 GM PACKET GT SCH ×3 (01:00→17:34)
[2023-05-25] MEDS: POLYVINYL ALCOHOL OPHT DROPS 15 ML BOTTLE EACHEYE SCH ×2 (05:31→17:34)
[2023-05-25] MEDS: OMEPRAZOLE 40 MG CAPSULE.DR GT SCH (05:31)
[2023-05-25 07:56] VITALS: TEMP 98.3
[2023-05-25] MEDS: HYDROGEN PEROXIDE 3% 118 ML BOTTLE TP SCH ×2 (08:52→19:12)
[2023-05-25] MEDS: ASPIRIN 81 MG TAB.CHEW GT SCH (09:48)
[2023-05-25] MEDS: DOCUSATE SODIUM 100 MG/10 ML LIQUID UDC GT SCH ×2 (09:48→21:00)
[2023-05-25] MEDS: levETIRAcetam 500 MG/5 ML LIQUID UDC GT SCH ×2 (09:49→21:00)
[2023-05-25] MEDS: PHENOBARBITAL 64.8 MG TABLET GT SCH ×2 (09:51→21:00)
[2023-05-25] MEDS: AMIODARONE 100 MG GT SCH (09:51)
[2023-05-25] MEDS: REMEDY ESSENTIAL ZINC PASTE 113 GM TP SCH (09:51)
[2023-05-25] MEDS: METOPROLOL TARTRATE 25 MG TABLET GT SCH ×2 (09:51→21:00)
[2023-05-25] MEDS: CHLORHEXIDINE GLUCONATE 15 ML MOUTHWASH MM SCH (09:51)
[2023-05-25] MEDS: DIAZEPAM 5 MG TABLET GT SCH ×2 (09:51→21:00)
[2023-05-25] MEDS: VITAL AF 1.2 1,000 ML LIQUID GT PRN (09:52)
[2023-05-25] MEDS: NEOMY/BACITRA/POLYMYXIN B OINT UD PACKET TP SCH ×2 (09:52→21:00)
[2023-05-25 20:00] VITALS: TEMP 97.1
[2023-05-25] MEDS: MAGNESIUM OXIDE 400 MG TABLET GT SCH (21:00)
[2023-05-25] MEDS: MULTIVIT, IRON, MIN NO. 8, FA TABLET GT SCH (21:00)
[2023-05-25 23:00] VITALS: TEMP 97.1
[2023-05-26] MEDS: NUTRISOURCE FIBER 4 GM PACKET GT SCH ×3 (01:41→16:55)
[2023-05-26] MEDS: OMEPRAZOLE 40 MG CAPSULE.DR GT SCH (06:21)
[2023-05-26] MEDS: POLYVINYL ALCOHOL OPHT DROPS 15 ML BOTTLE EACHEYE SCH ×2 (06:21→17:07)
[2023-05-26] MEDS: HYDROGEN PEROXIDE 3% 118 ML BOTTLE TP SCH ×2 (08:18→19:21)
[2023-05-26] MEDS: ASPIRIN 81 MG TAB.CHEW GT SCH (08:46)
[2023-05-26] MEDS: DOCUSATE SODIUM 100 MG/10 ML LIQUID UDC GT SCH ×2 (08:47→21:00)
[2023-05-26] MEDS: levETIRAcetam 500 MG/5 ML LIQUID UDC GT SCH ×2 (08:48→21:00)
[2023-05-26] MEDS: METOPROLOL TARTRATE 25 MG TABLET GT SCH ×2 (08:54→21:00)
[2023-05-26] MEDS: PHENOBARBITAL 64.8 MG TABLET GT SCH ×2 (08:55→21:00)
[2023-05-26] MEDS: AMIODARONE 100 MG GT SCH (08:56)
[2023-05-26] MEDS: DIAZEPAM 5 MG TABLET GT SCH ×2 (08:57→21:00)
[2023-05-26] MEDS: REMEDY ESSENTIAL ZINC PASTE 113 GM TP SCH ×2 (08:57→21:00)
[2023-05-26] MEDS: CHLORHEXIDINE GLUCONATE 15 ML MOUTHWASH MM SCH (08:57)
[2023-05-26] MEDS: NEOMY/BACITRA/POLYMYXIN B OINT UD PACKET TP SCH ×2 (09:00→21:00)
[2023-05-26 11:51] VITALS: TEMP 97.6
[2023-05-26] MEDS: VITAL AF 1.2 1,000 ML LIQUID GT PRN (16:55)
[2023-05-26 20:00] VITALS: TEMP 97.8
[2023-05-26] MEDS: MAGNESIUM OXIDE 400 MG TABLET GT SCH (21:00)
[2023-05-26] MEDS: MULTIVIT, IRON, MIN NO. 8, FA TABLET GT SCH (21:00)
[2023-05-27] MEDS: NUTRISOURCE FIBER 4 GM PACKET GT SCH ×3 (01:00→17:45)
[2023-05-27] MEDS: POLYVINYL ALCOHOL OPHT DROPS 15 ML BOTTLE EACHEYE SCH ×2 (05:09→17:46)
[2023-05-27] MEDS: OMEPRAZOLE 40 MG CAPSULE.DR GT SCH (05:09)
[2023-05-27 07:54] VITALS: TEMP 98.3
[2023-05-27] MEDS: ASPIRIN 81 MG TAB.CHEW GT SCH (08:43)
[2023-05-27] MEDS: DOCUSATE SODIUM 100 MG/10 ML LIQUID UDC GT SCH ×2 (08:43→20:59)
[2023-05-27] MEDS: levETIRAcetam 500 MG/5 ML LIQUID UDC GT SCH ×2 (08:48→21:03)
[2023-05-27] MEDS: PHENOBARBITAL 64.8 MG TABLET GT SCH ×2 (08:49→21:02)
[2023-05-27] MEDS: METOPROLOL TARTRATE 25 MG TABLET GT SCH ×2 (08:49→21:05)
[2023-05-27] MEDS: AMIODARONE 100 MG GT SCH (08:49)
[2023-05-27] MEDS: DIAZEPAM 5 MG TABLET GT SCH ×2 (08:50→21:02)
[2023-05-27] MEDS: CHLORHEXIDINE GLUCONATE 15 ML MOUTHWASH MM SCH (08:50)
[2023-05-27] MEDS: REMEDY ESSENTIAL ZINC PASTE 113 GM TP SCH ×3 (08:50→21:02)
[2023-05-27] MEDS: HYDROGEN PEROXIDE 3% 118 ML BOTTLE TP SCH ×2 (09:55→19:13)
[2023-05-27 20:59] VITALS: TEMP 97
[2023-05-27] MEDS: MAGNESIUM OXIDE 400 MG TABLET GT SCH (21:03)
[2023-05-27] MEDS: MULTIVIT, IRON, MIN NO. 8, FA TABLET GT SCH (21:05)
[2023-05-28] MEDS: NUTRISOURCE FIBER 4 GM PACKET GT SCH ×4 (01:52→23:10)
[2023-05-28] MEDS: POLYVINYL ALCOHOL OPHT DROPS 15 ML BOTTLE EACHEYE SCH ×2 (05:39→18:01)
[2023-05-28] MEDS: OMEPRAZOLE 40 MG CAPSULE.DR GT SCH (05:39)
[2023-05-28] MEDS: AMIODARONE 100 MG GT SCH (09:00)
[2023-05-28] MEDS: levETIRAcetam 500 MG/5 ML LIQUID UDC GT SCH ×2 (09:00→21:23)
[2023-05-28] MEDS: REMEDY ESSENTIAL ZINC PASTE 113 GM TP SCH ×3 (09:00→21:32)
[2023-05-28] MEDS: METOPROLOL TARTRATE 25 MG TABLET GT SCH ×2 (09:00→21:24)
[2023-05-28] MEDS: ASPIRIN 81 MG TAB.CHEW GT SCH (09:00)
[2023-05-28] MEDS: PHENOBARBITAL 64.8 MG TABLET GT SCH ×2 (09:00→21:32)
[2023-05-28] MEDS: CHLORHEXIDINE GLUCONATE 15 ML MOUTHWASH MM SCH (09:00)
[2023-05-28] MEDS: DIAZEPAM 5 MG TABLET GT SCH ×2 (09:00→21:32)
[2023-05-28] MEDS: DOCUSATE SODIUM 100 MG/10 ML LIQUID UDC GT SCH ×2 (09:00→21:21)
[2023-05-28] MEDS: HYDROGEN PEROXIDE 3% 118 ML BOTTLE TP SCH ×2 (09:13→21:07)
[2023-05-28 09:22] VITALS: TEMP 97.8
[2023-05-28] MEDS: VITAL AF 1.2 1,000 ML LIQUID GT PRN (17:27)
[2023-05-28 20:00] VITALS: TEMP 99.4
[2023-05-28] MEDS: MAGNESIUM OXIDE 400 MG TABLET GT SCH (21:24)
[2023-05-28] MEDS: MULTIVIT, IRON, MIN NO. 8, FA TABLET GT SCH (21:24)
[2023-05-29] MEDS: OMEPRAZOLE 40 MG CAPSULE.DR GT SCH (05:08)
[2023-05-29] MEDS: POLYVINYL ALCOHOL OPHT DROPS 15 ML BOTTLE EACHEYE SCH ×2 (05:08→17:02)
[2023-05-29 08:00] VITALS: TEMP 97.2
[2023-05-29] MEDS: HYDROGEN PEROXIDE 3% 118 ML BOTTLE TP SCH ×2 (08:14→19:17)
[2023-05-29] MEDS: DIAZEPAM 5 MG TABLET GT SCH ×2 (09:00→20:40)
[2023-05-29] MEDS: NUTRISOURCE FIBER 4 GM PACKET GT SCH ×2 (09:00→17:02)
[2023-05-29] MEDS: CHLORHEXIDINE GLUCONATE 15 ML MOUTHWASH MM SCH (09:00)
[2023-05-29] MEDS: ASPIRIN 81 MG TAB.CHEW GT SCH (09:00)
[2023-05-29] MEDS: AMIODARONE 100 MG GT SCH (09:00)
[2023-05-29] MEDS: DOCUSATE SODIUM 100 MG/10 ML LIQUID UDC GT SCH ×2 (09:00→20:38)
[2023-05-29] MEDS: PHENOBARBITAL 64.8 MG TABLET GT SCH ×2 (09:00→20:40)
[2023-05-29] MEDS: REMEDY ESSENTIAL ZINC PASTE 113 GM TP SCH ×3 (09:00→20:40)
[2023-05-29] MEDS: levETIRAcetam 500 MG/5 ML LIQUID UDC GT SCH ×2 (09:00→20:38)
[2023-05-29] MEDS: METOPROLOL TARTRATE 25 MG TABLET GT SCH ×2 (09:00→20:40)
[2023-05-29 20:00] VITALS: TEMP 98.4
[2023-05-29] MEDS: MULTIVIT, IRON, MIN NO. 8, FA TABLET GT SCH (20:40)
[2023-05-29] MEDS: MAGNESIUM OXIDE 400 MG TABLET GT SCH (20:40)
[2023-05-30] MEDS: NUTRISOURCE FIBER 4 GM PACKET GT SCH ×3 (01:00→17:37)
[2023-05-30] MEDS: OMEPRAZOLE 40 MG CAPSULE.DR GT SCH (06:02)
[2023-05-30] MEDS: POLYVINYL ALCOHOL OPHT DROPS 15 ML BOTTLE EACHEYE SCH ×2 (06:02→17:38)
[2023-05-30 08:00] VITALS: TEMP 98.1
[2023-05-30] MEDS: METOPROLOL TARTRATE 25 MG TABLET GT SCH ×2 (09:00→21:44)
[2023-05-30] MEDS: ASPIRIN 81 MG TAB.CHEW GT SCH (09:31)
[2023-05-30] MEDS: levETIRAcetam 500 MG/5 ML LIQUID UDC GT SCH ×2 (09:31→21:43)
[2023-05-30] MEDS: DOCUSATE SODIUM 100 MG/10 ML LIQUID UDC GT SCH ×2 (09:31→21:43)
[2023-05-30] MEDS: AMIODARONE 100 MG GT SCH (09:37)
[2023-05-30] MEDS: REMEDY ESSENTIAL ZINC PASTE 113 GM TP SCH ×3 (09:37→21:44)
[2023-05-30] MEDS: PHENOBARBITAL 64.8 MG TABLET GT SCH ×2 (09:37→21:44)
[2023-05-30] MEDS: DIAZEPAM 5 MG TABLET GT SCH ×2 (09:37→21:44)
[2023-05-30] MEDS: CHLORHEXIDINE GLUCONATE 15 ML MOUTHWASH MM SCH (09:37)
[2023-05-30] MEDS: HYDROGEN PEROXIDE 3% 118 ML BOTTLE TP SCH ×2 (09:44→21:37)
[2023-05-30 20:00] VITALS: TEMP 98.6
[2023-05-30] MEDS: MAGNESIUM OXIDE 400 MG TABLET GT SCH (21:44)
[2023-05-30] MEDS: MULTIVIT, IRON, MIN NO. 8, FA TABLET GT SCH (21:44)
[2023-05-31] MEDS: NUTRISOURCE FIBER 4 GM PACKET GT SCH ×3 (01:35→17:26)
[2023-05-31] MEDS: VITAL AF 1.2 1,000 ML LIQUID GT PRN (04:01)
[2023-05-31] MEDS: OMEPRAZOLE 40 MG CAPSULE.DR GT SCH (05:35)
[2023-05-31] MEDS: POLYVINYL ALCOHOL OPHT DROPS 15 ML BOTTLE EACHEYE SCH ×2 (05:35→17:26)
[2023-05-31] MEDS: HYDROGEN PEROXIDE 3% 118 ML BOTTLE TP SCH ×2 (07:25→21:07)
[2023-05-31] MEDS: DOCUSATE SODIUM 100 MG/10 ML LIQUID UDC GT SCH ×2 (08:17→21:55)
[2023-05-31] MEDS: ASPIRIN 81 MG TAB.CHEW GT SCH (08:17)
[2023-05-31] MEDS: levETIRAcetam 500 MG/5 ML LIQUID UDC GT SCH ×2 (08:17→21:55)
[2023-05-31] MEDS: REMEDY ESSENTIAL ZINC PASTE 113 GM TP SCH ×3 (08:19→21:55)
[2023-05-31] MEDS: METOPROLOL TARTRATE 25 MG TABLET GT SCH ×2 (08:19→21:55)
[2023-05-31] MEDS: AMIODARONE 100 MG GT SCH (08:19)
[2023-05-31] MEDS: DIAZEPAM 5 MG TABLET GT SCH ×2 (08:19→21:55)
[2023-05-31] MEDS: CHLORHEXIDINE GLUCONATE 15 ML MOUTHWASH MM SCH (08:19)
[2023-05-31] MEDS: PHENOBARBITAL 64.8 MG TABLET GT SCH ×2 (08:19→21:55)
[2023-05-31] MEDS: MULTIVIT, IRON, MIN NO. 8, FA TABLET GT SCH (21:55)
[2023-05-31] MEDS: MAGNESIUM OXIDE 400 MG TABLET GT SCH (21:55)
[2023-06-01] MEDS: NUTRISOURCE FIBER 4 GM PACKET GT SCH ×3 (01:10→17:26)
[2023-06-01] MEDS: POLYVINYL ALCOHOL OPHT DROPS 15 ML BOTTLE EACHEYE SCH ×2 (05:10→17:26)
[2023-06-01] MEDS: OMEPRAZOLE 40 MG CAPSULE.DR GT SCH (05:10)
[2023-06-01 08:00] VITALS: TEMP 98.8
[2023-06-01] MEDS: ASPIRIN 81 MG TAB.CHEW GT SCH (09:22)
[2023-06-01] MEDS: DOCUSATE SODIUM 100 MG/10 ML LIQUID UDC GT SCH ×2 (09:23→21:23)
[2023-06-01] MEDS: levETIRAcetam 500 MG/5 ML LIQUID UDC GT SCH ×2 (09:24→21:23)
[2023-06-01] MEDS: HYDROGEN PEROXIDE 3% 118 ML BOTTLE TP SCH ×2 (09:25→22:00)
[2023-06-01] MEDS: CHLORHEXIDINE GLUCONATE 15 ML MOUTHWASH MM SCH (09:25)
[2023-06-01] MEDS: REMEDY ESSENTIAL ZINC PASTE 113 GM TP SCH ×3 (09:25→21:34)
[2023-06-01] MEDS: PHENOBARBITAL 64.8 MG TABLET GT SCH ×2 (09:38→21:23)
[2023-06-01] MEDS: DIAZEPAM 5 MG TABLET GT SCH ×2 (09:38→21:23)
[2023-06-01] MEDS: METOPROLOL TARTRATE 25 MG TABLET GT SCH ×2 (09:39→21:23)
[2023-06-01] MEDS: AMIODARONE 100 MG GT SCH (09:42)
[2023-06-01 16:18] VITALS: O2SAT 99
[2023-06-01 20:00] VITALS: TEMP 101.1; TEMP 102.1
[2023-06-01] MEDS: ACETAMINOPHEN 650 MG/20 ML UDC- SA PATIENTS-FEVER ONLY GT PRN (20:17)
[2023-06-01 21:00] VITALS: TEMP 100
[2023-06-01 21:23] LABS: BASOPHILS % (AUTO) 0.1 % (0.0-2.0); DIFFERENTIAL COMMENT 0; EOSINOPHILS % (AUTO) 0.5 % (0.0-7.0); HEMATOCRIT 26.6 % (31.2-41.9); HEMOGLOBIN 8.8 g/dL (10.9-14.3); LYMPHOCYTES # (AUTO) 0.7 K/uL (0.8-4.8); LYMPHOCYTES % (AUTO) 11.4 % (20.5-51.5); MEAN CORPUSCULAR HGB CONC 33 g/dL (32.3-35.6); MEAN CORPUSCULAR VOLUME 81.2 fL (75.5-95.3); MONOCYTES # (AUTO) 0.5 K/uL (0.1-1.30); NEUTROPHILS # (AUTO) 4.7 K/uL (1.8-8.9); PLATELET COUNT (AUTO) 148 K/uL (179-408); RED BLOOD CELL COUNT(AUTO) 3.28 MIL/uL (3.63-4.92); RED CELL DISTRIBUTION WIDTH 16.8 % (12.3-17.7); WHITE BLOOD COUNT (AUTO) 5.9 K/uL (3.8-11.8)
[2023-06-01] MEDS: MULTIVIT, IRON, MIN NO. 8, FA TABLET GT SCH (21:23)
[2023-06-01] MEDS: MAGNESIUM OXIDE 400 MG TABLET GT SCH (21:23)
[2023-06-01] MEDS: CIPROFLOXACIN HCL 250 MG TABLET PO SCH (21:34)
[2023-06-01 21:38] LABS: ALBUMIN 2.5 g/dL (3.4-5.0); BILIRUBIN,TOTAL 0.6 mg/dL (0.2-1.0); CALCIUM 8.6 mg/dL (8.5-10.1); CREATININE 0.7 mg/dL (0.6-1.3); MAGNESIUM 2.1 mg/dL (1.8-2.4); POTASSIUM 3.6 mmol/L (3.5-5.1); TOTAL PROTEIN, SERUM 7.2 g/dL (6.4-8.2)
[2023-06-01 23:01] LABS: *BILIRUBIN,URIN NEGATIVE (NEGATIVE); *BLOOD, URINE 3+ (NEGATIVE); *CLARITY,URINE SLIGHTLY CLOUDY (CLEAR); *COLOR,URINE YELLOW (YELLOW); *KETONES,URINE NEGATIVE (NEGATIVE); *UROBILINOGEN,URINE 0.2 E.U./dl (NORMAL); LEUKOCYTE ESTERASE ,URINE 3+ (NEGATIVE); NITRITE, URINE NEGATIVE (NEGATIVE); UGLUCOSE NEGATIVE (NEGATIVE)
[2023-06-01 23:06] LABS: *PROTEIN,URINE 3+ (NEGATIVE)
[2023-06-01 23:13] LABS: BACTERIA,URINE MANY /HPF (NONE SEEN); RBC,URINE TNTC /HPF (0-3); SQUAMOUS EPITHELIAL CELL,UR FEW /HPF (NONE SEEN)
[2023-06-01 23:16] LABS: WBC,URINE TNTC /HPF (0-3)
[2023-06-02] MEDS: NUTRISOURCE FIBER 4 GM PACKET GT SCH ×3 (00:07→17:07)
[2023-06-02 02:02] VITALS: TEMP 99.7
[2023-06-02] MEDS: OMEPRAZOLE 40 MG CAPSULE.DR GT SCH (05:44)
[2023-06-02] MEDS: POLYVINYL ALCOHOL OPHT DROPS 15 ML BOTTLE EACHEYE SCH ×2 (05:44→17:07)
[2023-06-02 06:30] VITALS: TEMP 98.7
[2023-06-02 07:40] VITALS: TEMP 99.8
[2023-06-02] MEDS: ASPIRIN 81 MG TAB.CHEW GT SCH (08:49)
[2023-06-02] MEDS: DOCUSATE SODIUM 100 MG/10 ML LIQUID UDC GT SCH ×2 (08:49→20:41)
[2023-06-02] MEDS: levETIRAcetam 500 MG/5 ML LIQUID UDC GT SCH ×2 (08:49→20:41)
[2023-06-02] MEDS: CHLORHEXIDINE GLUCONATE 15 ML MOUTHWASH MM SCH (08:50)
[2023-06-02] MEDS: PHENOBARBITAL 64.8 MG TABLET GT SCH ×2 (08:50→20:41)
[2023-06-02] MEDS: AMIODARONE 100 MG GT SCH (08:50)
[2023-06-02] MEDS: REMEDY ESSENTIAL ZINC PASTE 113 GM TP SCH ×2 (08:50→08:51)
[2023-06-02] MEDS: METOPROLOL TARTRATE 25 MG TABLET GT SCH ×2 (08:50→21:00)
[2023-06-02] MEDS: DIAZEPAM 5 MG TABLET GT SCH ×2 (08:50→20:42)
[2023-06-02] MEDS: CIPROFLOXACIN HCL 250 MG TABLET PO SCH ×2 (08:55→20:42)
[2023-06-02] MEDS: HYDROGEN PEROXIDE 3% 118 ML BOTTLE TP SCH ×2 (09:31→21:00)
[2023-06-02] MEDS: VITAL AF 1.2 1,000 ML LIQUID GT PRN (17:17)
[2023-06-02] MEDS: MAGNESIUM OXIDE 400 MG TABLET GT SCH (20:41)
[2023-06-02] MEDS: MULTIVIT, IRON, MIN NO. 8, FA TABLET GT SCH (20:41)
[2023-06-02 20:53] VITALS: TEMP 99.3
[2023-06-03] MEDS: NUTRISOURCE FIBER 4 GM PACKET GT SCH ×3 (01:03→17:39)
[2023-06-03] MEDS: POLYVINYL ALCOHOL OPHT DROPS 15 ML BOTTLE EACHEYE SCH ×2 (05:09→17:39)
[2023-06-03] MEDS: OMEPRAZOLE 40 MG CAPSULE.DR GT SCH (05:09)
[2023-06-03] MEDS: HYDROGEN PEROXIDE 3% 118 ML BOTTLE TP SCH ×2 (07:55→20:50)
[2023-06-03] MEDS: METOPROLOL TARTRATE 25 MG TABLET GT SCH ×2 (09:00→20:52)
[2023-06-03] MEDS: ASPIRIN 81 MG TAB.CHEW GT SCH (09:08)
[2023-06-03] MEDS: DOCUSATE SODIUM 100 MG/10 ML LIQUID UDC GT SCH ×2 (09:08→20:51)
[2023-06-03] MEDS: levETIRAcetam 500 MG/5 ML LIQUID UDC GT SCH ×2 (09:09→20:51)
[2023-06-03] MEDS: AMIODARONE 100 MG GT SCH (09:10)
[2023-06-03] MEDS: PHENOBARBITAL 64.8 MG TABLET GT SCH ×2 (09:10→20:52)
[2023-06-03] MEDS: DIAZEPAM 5 MG TABLET GT SCH ×2 (09:11→20:52)
[2023-06-03] MEDS: CHLORHEXIDINE GLUCONATE 15 ML MOUTHWASH MM SCH (09:11)
[2023-06-03] MEDS: CIPROFLOXACIN HCL 250 MG TABLET PO SCH ×2 (09:11→20:52)
[2023-06-03] MEDS: REMEDY ESSENTIAL ZINC PASTE 113 GM TP SCH (09:12)
[2023-06-03 09:23] VITALS: TEMP 99.9
[2023-06-03 17:31] VITALS: TEMP 101.5
[2023-06-03] MEDS: ACETAMINOPHEN 650 MG/20 ML UDC- SA PATIENTS-FEVER ONLY GT PRN (17:39)
[2023-06-03 20:00] VITALS: TEMP 99.7
[2023-06-03] MEDS: PEPTAMEN AF 1000ML BAG GT PRN (20:52)
[2023-06-03] MEDS: MAGNESIUM OXIDE 400 MG TABLET GT SCH (20:52)
[2023-06-03] MEDS: MULTIVIT, IRON, MIN NO. 8, FA TABLET GT SCH (20:52)
[2023-06-04] MEDS: NUTRISOURCE FIBER 4 GM PACKET GT SCH ×3 (01:20→17:38)
[2023-06-04] MEDS: OMEPRAZOLE 40 MG CAPSULE.DR GT SCH (05:36)
[2023-06-04] MEDS: POLYVINYL ALCOHOL OPHT DROPS 15 ML BOTTLE EACHEYE SCH ×2 (05:36→17:38)
[2023-06-04 08:06] LABS: ALBUMIN 2.5 g/dL (3.4-5.0); BILIRUBIN,DIRECT 0.2 mg/dL (0.0-0.2); BILIRUBIN,TOTAL 0.4 mg/dL (0.2-1.0); TOTAL PROTEIN, SERUM 7.4 g/dL (6.4-8.2)
[2023-06-04] MEDS: REMEDY ESSENTIAL ZINC PASTE 113 GM TP SCH (09:00)
[2023-06-04] MEDS: DOCUSATE SODIUM 100 MG/10 ML LIQUID UDC GT SCH ×2 (09:00→20:51)
[2023-06-04] MEDS: ASPIRIN 81 MG TAB.CHEW GT SCH (09:00)
[2023-06-04] MEDS: HYDROGEN PEROXIDE 3% 118 ML BOTTLE TP SCH ×2 (09:00→19:22)
[2023-06-04] MEDS: AMIODARONE 100 MG GT SCH (09:00)
[2023-06-04] MEDS: DIAZEPAM 5 MG TABLET GT SCH ×2 (09:00→20:53)
[2023-06-04] MEDS: PHENOBARBITAL 64.8 MG TABLET GT SCH ×2 (09:00→20:55)
[2023-06-04] MEDS: CHLORHEXIDINE GLUCONATE 15 ML MOUTHWASH MM SCH (09:00)
[2023-06-04] MEDS: CIPROFLOXACIN HCL 250 MG TABLET PO SCH ×2 (09:00→20:53)
[2023-06-04] MEDS: METOPROLOL TARTRATE 25 MG TABLET GT SCH ×2 (09:00→20:51)
[2023-06-04] MEDS: levETIRAcetam 500 MG/5 ML LIQUID UDC GT SCH ×2 (09:00→20:51)
[2023-06-04 09:11] VITALS: TEMP 98.8
[2023-06-04 20:00] VITALS: TEMP 98.8
[2023-06-04] MEDS: MAGNESIUM OXIDE 400 MG TABLET GT SCH (20:52)
[2023-06-04] MEDS: MULTIVIT, IRON, MIN NO. 8, FA TABLET GT SCH (20:53)
[2023-06-05] MEDS: NUTRISOURCE FIBER 4 GM PACKET GT SCH ×3 (01:16→17:35)
[2023-06-05] MEDS: POLYVINYL ALCOHOL OPHT DROPS 15 ML BOTTLE EACHEYE SCH ×2 (05:25→17:35)
[2023-06-05] MEDS: OMEPRAZOLE 40 MG CAPSULE.DR GT SCH (05:25)
[2023-06-05 07:20] VITALS: TEMP 98.7
[2023-06-05] MEDS: ASPIRIN 81 MG TAB.CHEW GT SCH (08:10)
[2023-06-05] MEDS: DOCUSATE SODIUM 100 MG/10 ML LIQUID UDC GT SCH ×2 (08:12→21:47)
[2023-06-05] MEDS: levETIRAcetam 500 MG/5 ML LIQUID UDC GT SCH ×2 (08:12→21:49)
[2023-06-05] MEDS: PHENOBARBITAL 64.8 MG TABLET GT SCH ×2 (08:20→21:59)
[2023-06-05] MEDS: AMIODARONE 100 MG GT SCH (08:22)
[2023-06-05] MEDS: METOPROLOL TARTRATE 25 MG TABLET GT SCH ×2 (08:23→21:50)
[2023-06-05] MEDS: DIAZEPAM 5 MG TABLET GT SCH ×2 (08:23→21:59)
[2023-06-05] MEDS: CIPROFLOXACIN HCL 250 MG TABLET PO SCH ×2 (08:24→21:53)
[2023-06-05] MEDS: REMEDY ESSENTIAL ZINC PASTE 113 GM TP SCH (08:24)
[2023-06-05] MEDS: CHLORHEXIDINE GLUCONATE 15 ML MOUTHWASH MM SCH (08:24)
[2023-06-05] MEDS: HYDROGEN PEROXIDE 3% 118 ML BOTTLE TP SCH ×2 (09:00→21:15)
[2023-06-05 20:00] VITALS: TEMP 97.7
[2023-06-05] MEDS: MAGNESIUM OXIDE 400 MG TABLET GT SCH (21:51)
[2023-06-05] MEDS: MULTIVIT, IRON, MIN NO. 8, FA TABLET GT SCH (21:52)
[2023-06-06 00:05] VITALS: TEMP 97.6
[2023-06-06] MEDS: NUTRISOURCE FIBER 4 GM PACKET GT SCH ×3 (01:00→17:00)
[2023-06-06 04:00] VITALS: TEMP 98.4
[2023-06-06] MEDS: POLYVINYL ALCOHOL OPHT DROPS 15 ML BOTTLE EACHEYE SCH ×2 (06:08→18:19)
[2023-06-06] MEDS: OMEPRAZOLE 40 MG CAPSULE.DR GT SCH (06:08)
[2023-06-06 07:46] VITALS: TEMP 98.8
[2023-06-06] MEDS: PHENOBARBITAL 64.8 MG TABLET GT SCH ×2 (09:00→21:00)
[2023-06-06] MEDS: REMEDY ESSENTIAL ZINC PASTE 113 GM TP SCH (09:00)
[2023-06-06] MEDS: DIAZEPAM 5 MG TABLET GT SCH ×2 (09:00→21:00)
[2023-06-06] MEDS: AMIODARONE 100 MG GT SCH (09:00)
[2023-06-06] MEDS: METOPROLOL TARTRATE 25 MG TABLET GT SCH ×2 (09:00→21:00)
[2023-06-06] MEDS: HYDROGEN PEROXIDE 3% 118 ML BOTTLE TP SCH ×2 (09:00→20:55)
[2023-06-06] MEDS: DOCUSATE SODIUM 100 MG/10 ML LIQUID UDC GT SCH ×2 (09:00→21:00)
[2023-06-06] MEDS: CIPROFLOXACIN HCL 250 MG TABLET PO SCH ×2 (09:00→21:00)
[2023-06-06] MEDS: ASPIRIN 81 MG TAB.CHEW GT SCH (09:00)
[2023-06-06] MEDS: CHLORHEXIDINE GLUCONATE 15 ML MOUTHWASH MM SCH (09:00)
[2023-06-06] MEDS: levETIRAcetam 500 MG/5 ML LIQUID UDC GT SCH ×2 (09:00→21:00)
[2023-06-06 20:00] VITALS: TEMP 97.1
[2023-06-06] MEDS: MULTIVIT, IRON, MIN NO. 8, FA TABLET GT SCH (21:00)
[2023-06-06] MEDS: MAGNESIUM OXIDE 400 MG TABLET GT SCH (21:00)
[2023-06-07] MEDS: NUTRISOURCE FIBER 4 GM PACKET GT SCH ×3 (00:56→17:00)
[2023-06-07] MEDS: PEPTAMEN AF 1000ML BAG GT PRN (03:54)
[2023-06-07] MEDS: POLYVINYL ALCOHOL OPHT DROPS 15 ML BOTTLE EACHEYE SCH ×2 (06:15→18:00)
[2023-06-07] MEDS: OMEPRAZOLE 40 MG CAPSULE.DR GT SCH (06:15)
[2023-06-07 08:00] VITALS: TEMP 97.5
[2023-06-07] MEDS: DOCUSATE SODIUM 100 MG/10 ML LIQUID UDC GT SCH ×2 (08:40→21:24)
[2023-06-07] MEDS: HYDROGEN PEROXIDE 3% 118 ML BOTTLE TP SCH ×2 (08:40→19:12)
[2023-06-07] MEDS: levETIRAcetam 500 MG/5 ML LIQUID UDC GT SCH ×2 (08:40→21:24)
[2023-06-07] MEDS: ASPIRIN 81 MG TAB.CHEW GT SCH (08:40)
[2023-06-07] MEDS: METOPROLOL TARTRATE 25 MG TABLET GT SCH ×2 (08:42→21:25)
[2023-06-07] MEDS: AMIODARONE 100 MG GT SCH (08:42)
[2023-06-07] MEDS: DIAZEPAM 5 MG TABLET GT SCH ×2 (08:47→21:25)
[2023-06-07] MEDS: PHENOBARBITAL 64.8 MG TABLET GT SCH ×2 (08:47→21:25)
[2023-06-07] MEDS: REMEDY ESSENTIAL ZINC PASTE 113 GM TP SCH (08:48)
[2023-06-07] MEDS: CHLORHEXIDINE GLUCONATE 15 ML MOUTHWASH MM SCH (08:48)
[2023-06-07] MEDS: CIPROFLOXACIN HCL 250 MG TABLET PO SCH ×2 (08:50→21:25)
[2023-06-07 20:00] VITALS: TEMP 96.8
[2023-06-07] MEDS: MAGNESIUM OXIDE 400 MG TABLET GT SCH (21:25)
[2023-06-07] MEDS: MULTIVIT, IRON, MIN NO. 8, FA TABLET GT SCH (21:25)
[2023-06-08] MEDS: NUTRISOURCE FIBER 4 GM PACKET GT SCH ×3 (01:40→17:00)
[2023-06-08] MEDS: POLYVINYL ALCOHOL OPHT DROPS 15 ML BOTTLE EACHEYE SCH ×2 (05:09→18:30)
[2023-06-08] MEDS: OMEPRAZOLE 40 MG CAPSULE.DR GT SCH (05:09)
[2023-06-08] MEDS: HYDROGEN PEROXIDE 3% 118 ML BOTTLE TP SCH ×2 (07:21→19:24)
[2023-06-08 08:00] VITALS: TEMP 97.6
[2023-06-08] MEDS: DOCUSATE SODIUM 100 MG/10 ML LIQUID UDC GT SCH ×2 (08:56→21:14)
[2023-06-08] MEDS: ASPIRIN 81 MG TAB.CHEW GT SCH (08:56)
[2023-06-08] MEDS: levETIRAcetam 500 MG/5 ML LIQUID UDC GT SCH ×2 (08:58→21:14)
[2023-06-08] MEDS: METOPROLOL TARTRATE 25 MG TABLET GT SCH ×2 (09:00→21:15)
[2023-06-08] MEDS: DIAZEPAM 5 MG TABLET GT SCH ×2 (09:04→21:15)
[2023-06-08] MEDS: PHENOBARBITAL 64.8 MG TABLET GT SCH ×2 (09:04→21:15)
[2023-06-08] MEDS: AMIODARONE 100 MG GT SCH (09:08)
[2023-06-08] MEDS: CIPROFLOXACIN HCL 250 MG TABLET PO SCH (09:09)
[2023-06-08] MEDS: REMEDY ESSENTIAL ZINC PASTE 113 GM TP SCH (09:09)
[2023-06-08] MEDS: CHLORHEXIDINE GLUCONATE 15 ML MOUTHWASH MM SCH (09:10)
[2023-06-08] MEDS: PEPTAMEN AF 1000ML BAG GT PRN (15:11)
[2023-06-08 20:00] VITALS: TEMP 98.3
[2023-06-08] MEDS: MULTIVIT, IRON, MIN NO. 8, FA TABLET GT SCH (21:15)
[2023-06-08] MEDS: MAGNESIUM OXIDE 400 MG TABLET GT SCH (21:15)
[2023-06-09] MEDS: NUTRISOURCE FIBER 4 GM PACKET GT SCH ×3 (01:04→16:10)
[2023-06-09] MEDS: OMEPRAZOLE 40 MG CAPSULE.DR GT SCH (05:33)
[2023-06-09] MEDS: POLYVINYL ALCOHOL OPHT DROPS 15 ML BOTTLE EACHEYE SCH ×2 (05:33→17:20)
[2023-06-09 07:50] VITALS: TEMP 97.1
[2023-06-09] MEDS: HYDROGEN PEROXIDE 3% 118 ML BOTTLE TP SCH ×2 (08:52→21:22)
[2023-06-09] MEDS: ASPIRIN 81 MG TAB.CHEW GT SCH (09:31)
[2023-06-09] MEDS: levETIRAcetam 500 MG/5 ML LIQUID UDC GT SCH ×2 (09:31→21:49)
[2023-06-09] MEDS: DOCUSATE SODIUM 100 MG/10 ML LIQUID UDC GT SCH ×2 (09:31→21:49)
[2023-06-09] MEDS: METOPROLOL TARTRATE 25 MG TABLET GT SCH ×2 (09:32→21:49)
[2023-06-09] MEDS: DIAZEPAM 5 MG TABLET GT SCH ×2 (09:33→21:49)
[2023-06-09] MEDS: AMIODARONE 100 MG GT SCH (09:33)
[2023-06-09] MEDS: CHLORHEXIDINE GLUCONATE 15 ML MOUTHWASH MM SCH (09:33)
[2023-06-09] MEDS: REMEDY ESSENTIAL ZINC PASTE 113 GM TP SCH (09:33)
[2023-06-09] MEDS: PHENOBARBITAL 64.8 MG TABLET GT SCH ×2 (09:33→21:49)
[2023-06-09] MEDS: PEPTAMEN AF 1000ML BAG GT PRN (16:11)
[2023-06-09 20:18] VITALS: TEMP 98.2
[2023-06-09] MEDS: MAGNESIUM OXIDE 400 MG TABLET GT SCH (21:49)
[2023-06-09] MEDS: MULTIVIT, IRON, MIN NO. 8, FA TABLET GT SCH (21:49)
[2023-06-10] MEDS: NUTRISOURCE FIBER 4 GM PACKET GT SCH ×3 (01:00→17:24)
[2023-06-10] MEDS: OMEPRAZOLE 40 MG CAPSULE.DR GT SCH (05:17)
[2023-06-10] MEDS: POLYVINYL ALCOHOL OPHT DROPS 15 ML BOTTLE EACHEYE SCH ×2 (05:17→17:24)
[2023-06-10 06:34] LABS: BASOPHILS % (AUTO) 0.5 % (0.0-2.0); EOSINOPHILS # (AUTO) 0.1 K/uL (0.0-0.7); EOSINOPHILS % (AUTO) 3.5 % (0.0-7.0); HEMATOCRIT 27.9 % (31.2-41.9); HEMOGLOBIN 9.6 g/dL (10.9-14.3); LYMPHOCYTES # (AUTO) 0.7 K/uL (0.8-4.8); LYMPHOCYTES % (AUTO) 20.5 % (20.5-51.5); MEAN CORPUSCULAR HEMOGLOBIN 27.3 uug (24.7-32.8); MEAN CORPUSCULAR HGB CONC 34 g/dL (32.3-35.6); MEAN CORPUSCULAR VOLUME 79.6 fL (75.5-95.3); MONOCYTES # (AUTO) 0.3 K/uL (0.1-1.30); MONOCYTES % (AUTO) 8.6 % (0.0-11.0); NEUTROPHILS # (AUTO) 2.3 K/uL (1.8-8.9); NEUTROPHILS % (AUTO) 66.9 % (38.5-71.5); PLATELET COUNT (AUTO) 256 K/uL (179-408); RED BLOOD CELL COUNT(AUTO) 3.51 MIL/uL (3.63-4.92); RED CELL DISTRIBUTION WIDTH 16.9 % (12.3-17.7); WHITE BLOOD COUNT (AUTO) 3.4 K/uL (3.8-11.8)
[2023-06-10 06:48] LABS: CALCIUM 9.3 mg/dL (8.5-10.1); CREATININE 0.5 mg/dL (0.6-1.3); POTASSIUM 4.7 mmol/L (3.5-5.1)
[2023-06-10 07:06] LABS: DIFFERENTIAL COMMENT 1
[2023-06-10] MEDS: HYDROGEN PEROXIDE 3% 118 ML BOTTLE TP SCH ×2 (07:19→21:46)
[2023-06-10 07:29] VITALS: TEMP 97.1
[2023-06-10] MEDS: levETIRAcetam 500 MG/5 ML LIQUID UDC GT SCH ×2 (09:20→21:16)
[2023-06-10] MEDS: ASPIRIN 81 MG TAB.CHEW GT SCH (09:20)
[2023-06-10] MEDS: METOPROLOL TARTRATE 25 MG TABLET GT SCH ×2 (09:20→21:16)
[2023-06-10] MEDS: DOCUSATE SODIUM 100 MG/10 ML LIQUID UDC GT SCH ×2 (09:20→21:16)
[2023-06-10] MEDS: AMIODARONE 100 MG GT SCH (09:21)
[2023-06-10] MEDS: CHLORHEXIDINE GLUCONATE 15 ML MOUTHWASH MM SCH (09:21)
[2023-06-10] MEDS: REMEDY ESSENTIAL ZINC PASTE 113 GM TP SCH (09:21)
[2023-06-10] MEDS: DIAZEPAM 5 MG TABLET GT SCH ×2 (09:21→21:17)
[2023-06-10] MEDS: PHENOBARBITAL 64.8 MG TABLET GT SCH ×2 (09:21→21:16)
[2023-06-10 20:18] VITALS: TEMP 98
[2023-06-10] MEDS: MULTIVIT, IRON, MIN NO. 8, FA TABLET GT SCH (21:17)
[2023-06-10] MEDS: MAGNESIUM OXIDE 400 MG TABLET GT SCH (21:17)
[2023-06-11] MEDS: NUTRISOURCE FIBER 4 GM PACKET GT SCH ×3 (01:30→17:20)
[2023-06-11] MEDS: POLYVINYL ALCOHOL OPHT DROPS 15 ML BOTTLE EACHEYE SCH ×2 (05:14→17:28)
[2023-06-11] MEDS: OMEPRAZOLE 40 MG CAPSULE.DR GT SCH (05:14)
[2023-06-11 07:25] VITALS: TEMP 98.5
[2023-06-11] MEDS: HYDROGEN PEROXIDE 3% 118 ML BOTTLE TP SCH ×2 (07:45→21:01)
[2023-06-11] MEDS: METOPROLOL TARTRATE 25 MG TABLET GT SCH ×2 (09:00→20:55)
[2023-06-11] MEDS: ASPIRIN 81 MG TAB.CHEW GT SCH (09:49)
[2023-06-11] MEDS: DOCUSATE SODIUM 100 MG/10 ML LIQUID UDC GT SCH ×2 (09:50→20:52)
[2023-06-11] MEDS: levETIRAcetam 500 MG/5 ML LIQUID UDC GT SCH ×2 (09:50→20:53)
[2023-06-11] MEDS: PHENOBARBITAL 64.8 MG TABLET GT SCH ×2 (09:51→20:55)
[2023-06-11] MEDS: AMIODARONE 100 MG GT SCH (09:51)
[2023-06-11] MEDS: DIAZEPAM 5 MG TABLET GT SCH ×2 (09:52→20:55)
[2023-06-11] MEDS: CHLORHEXIDINE GLUCONATE 15 ML MOUTHWASH MM SCH (09:52)
[2023-06-11] MEDS: REMEDY ESSENTIAL ZINC PASTE 113 GM TP SCH (09:52)
[2023-06-11 20:00] VITALS: TEMP 97.8
[2023-06-11] MEDS: MULTIVIT, IRON, MIN NO. 8, FA TABLET GT SCH (20:55)
[2023-06-11] MEDS: MAGNESIUM OXIDE 400 MG TABLET GT SCH (20:55)
[2023-06-12] MEDS: NUTRISOURCE FIBER 4 GM PACKET GT SCH ×3 (01:00→17:10)
[2023-06-12] MEDS: OMEPRAZOLE 40 MG CAPSULE.DR GT SCH (05:50)
[2023-06-12] MEDS: POLYVINYL ALCOHOL OPHT DROPS 15 ML BOTTLE EACHEYE SCH ×2 (05:50→17:10)
[2023-06-12 07:24] VITALS: TEMP 97.7
[2023-06-12] MEDS: METOPROLOL TARTRATE 25 MG TABLET GT SCH ×2 (09:00→20:47)
[2023-06-12] MEDS: DIAZEPAM 5 MG TABLET GT SCH ×2 (09:00→20:48)
[2023-06-12] MEDS: REMEDY ESSENTIAL ZINC PASTE 113 GM TP SCH (09:00)
[2023-06-12] MEDS: CHLORHEXIDINE GLUCONATE 15 ML MOUTHWASH MM SCH (09:00)
[2023-06-12] MEDS: PHENOBARBITAL 64.8 MG TABLET GT SCH ×2 (09:00→20:48)
[2023-06-12] MEDS: levETIRAcetam 500 MG/5 ML LIQUID UDC GT SCH ×2 (09:00→20:47)
[2023-06-12] MEDS: DOCUSATE SODIUM 100 MG/10 ML LIQUID UDC GT SCH ×2 (09:00→20:47)
[2023-06-12] MEDS: ASPIRIN 81 MG TAB.CHEW GT SCH (09:00)
[2023-06-12] MEDS: AMIODARONE 100 MG GT SCH (09:00)
[2023-06-12] MEDS: HYDROGEN PEROXIDE 3% 118 ML BOTTLE TP SCH ×2 (09:14→19:28)
[2023-06-12 20:00] VITALS: TEMP 97.6
[2023-06-12] MEDS: MAGNESIUM OXIDE 400 MG TABLET GT SCH (20:48)
[2023-06-12] MEDS: MULTIVIT, IRON, MIN NO. 8, FA TABLET GT SCH (20:48)
[2023-06-13] MEDS: PEPTAMEN AF 1000ML BAG GT PRN (01:08)
[2023-06-13] MEDS: NUTRISOURCE FIBER 4 GM PACKET GT SCH ×3 (01:08→16:37)
[2023-06-13] MEDS: POLYVINYL ALCOHOL OPHT DROPS 15 ML BOTTLE EACHEYE SCH ×2 (05:39→17:26)
[2023-06-13] MEDS: OMEPRAZOLE 40 MG CAPSULE.DR GT SCH (05:39)
[2023-06-13 07:30] VITALS: TEMP 98.5
[2023-06-13] MEDS: ASPIRIN 81 MG TAB.CHEW GT SCH (08:35)
[2023-06-13] MEDS: DOCUSATE SODIUM 100 MG/10 ML LIQUID UDC GT SCH ×2 (08:35→21:00)
[2023-06-13] MEDS: levETIRAcetam 500 MG/5 ML LIQUID UDC GT SCH ×2 (08:35→21:00)
[2023-06-13] MEDS: AMIODARONE 100 MG GT SCH (08:36)
[2023-06-13] MEDS: PHENOBARBITAL 64.8 MG TABLET GT SCH ×2 (08:36→21:01)
[2023-06-13] MEDS: METOPROLOL TARTRATE 25 MG TABLET GT SCH ×2 (08:36→21:01)
[2023-06-13] MEDS: DIAZEPAM 5 MG TABLET GT SCH ×2 (08:36→21:01)
[2023-06-13] MEDS: REMEDY ESSENTIAL ZINC PASTE 113 GM TP SCH (08:40)
[2023-06-13] MEDS: CHLORHEXIDINE GLUCONATE 15 ML MOUTHWASH MM SCH (08:40)
[2023-06-13] MEDS: HYDROGEN PEROXIDE 3% 118 ML BOTTLE TP SCH ×2 (09:00→21:58)
[2023-06-13 20:00] VITALS: TEMP 97.4
[2023-06-13] MEDS: MAGNESIUM OXIDE 400 MG TABLET GT SCH (21:01)
[2023-06-13] MEDS: MULTIVIT, IRON, MIN NO. 8, FA TABLET GT SCH (21:01)
[2023-06-14] MEDS: NUTRISOURCE FIBER 4 GM PACKET GT SCH ×3 (01:00→17:56)
[2023-06-14] MEDS: OMEPRAZOLE 40 MG CAPSULE.DR GT SCH (05:59)
[2023-06-14] MEDS: POLYVINYL ALCOHOL OPHT DROPS 15 ML BOTTLE EACHEYE SCH ×2 (05:59→17:56)
[2023-06-14] MEDS: METOPROLOL TARTRATE 25 MG TABLET GT SCH ×2 (09:00→21:00)
[2023-06-14] MEDS: HYDROGEN PEROXIDE 3% 118 ML BOTTLE TP SCH ×2 (09:00→19:09)
[2023-06-14] MEDS: DOCUSATE SODIUM 100 MG/10 ML LIQUID UDC GT SCH ×2 (09:41→21:04)
[2023-06-14] MEDS: ASPIRIN 81 MG TAB.CHEW GT SCH (09:41)
[2023-06-14] MEDS: levETIRAcetam 500 MG/5 ML LIQUID UDC GT SCH ×2 (09:41→21:05)
[2023-06-14] MEDS: DIAZEPAM 5 MG TABLET GT SCH ×2 (09:43→21:13)
[2023-06-14] MEDS: AMIODARONE 100 MG GT SCH (09:43)
[2023-06-14] MEDS: PHENOBARBITAL 64.8 MG TABLET GT SCH ×2 (09:43→21:13)
[2023-06-14] MEDS: REMEDY ESSENTIAL ZINC PASTE 113 GM TP SCH (09:44)
[2023-06-14] MEDS: CHLORHEXIDINE GLUCONATE 15 ML MOUTHWASH MM SCH (09:44)
[2023-06-14] MEDS: PEPTAMEN AF 1000ML BAG GT PRN (10:24)
[2023-06-14 10:47] VITALS: TEMP 98
[2023-06-14 19:48] VITALS: TEMP 96.6
[2023-06-14] MEDS: MULTIVIT, IRON, MIN NO. 8, FA TABLET GT SCH (21:08)
[2023-06-14] MEDS: MAGNESIUM OXIDE 400 MG TABLET GT SCH (21:08)
[2023-06-15] MEDS: NUTRISOURCE FIBER 4 GM PACKET GT SCH ×3 (01:59→16:52)
[2023-06-15] MEDS: OMEPRAZOLE 40 MG CAPSULE.DR GT SCH (05:27)
[2023-06-15] MEDS: POLYVINYL ALCOHOL OPHT DROPS 15 ML BOTTLE EACHEYE SCH ×2 (05:27→17:27)
[2023-06-15 07:39] VITALS: TEMP 97.3
[2023-06-15] MEDS: HYDROGEN PEROXIDE 3% 118 ML BOTTLE TP SCH ×2 (08:09→21:11)
[2023-06-15] MEDS: levETIRAcetam 500 MG/5 ML LIQUID UDC GT SCH ×2 (09:38→20:46)
[2023-06-15] MEDS: DOCUSATE SODIUM 100 MG/10 ML LIQUID UDC GT SCH ×2 (09:38→20:46)
[2023-06-15] MEDS: ASPIRIN 81 MG TAB.CHEW GT SCH (09:38)
[2023-06-15] MEDS: METOPROLOL TARTRATE 25 MG TABLET GT SCH ×2 (09:43→20:47)
[2023-06-15] MEDS: PHENOBARBITAL 64.8 MG TABLET GT SCH ×2 (09:44→20:52)
[2023-06-15] MEDS: CHLORHEXIDINE GLUCONATE 15 ML MOUTHWASH MM SCH (09:44)
[2023-06-15] MEDS: AMIODARONE 100 MG GT SCH (09:44)
[2023-06-15] MEDS: DIAZEPAM 5 MG TABLET GT SCH ×2 (09:44→20:52)
[2023-06-15] MEDS: REMEDY ESSENTIAL ZINC PASTE 113 GM TP SCH (09:44)
[2023-06-15] MEDS: PEPTAMEN AF 1000ML BAG GT PRN (13:07)
[2023-06-15 20:14] VITALS: TEMP 98.5
[2023-06-15] MEDS: MULTIVIT, IRON, MIN NO. 8, FA TABLET GT SCH (20:52)
[2023-06-15] MEDS: MAGNESIUM OXIDE 400 MG TABLET GT SCH (20:52)
[2023-06-16] MEDS: NUTRISOURCE FIBER 4 GM PACKET GT SCH ×3 (01:50→17:17)
[2023-06-16] MEDS: OMEPRAZOLE 40 MG CAPSULE.DR GT SCH (05:46)
[2023-06-16] MEDS: POLYVINYL ALCOHOL OPHT DROPS 15 ML BOTTLE EACHEYE SCH ×2 (05:46→17:17)
[2023-06-16] MEDS: DOCUSATE SODIUM 100 MG/10 ML LIQUID UDC GT SCH ×2 (08:07→20:16)
[2023-06-16] MEDS: ASPIRIN 81 MG TAB.CHEW GT SCH (08:07)
[2023-06-16] MEDS: levETIRAcetam 500 MG/5 ML LIQUID UDC GT SCH ×2 (08:07→20:19)
[2023-06-16] MEDS: PHENOBARBITAL 64.8 MG TABLET GT SCH ×2 (08:08→20:18)
[2023-06-16] MEDS: CHLORHEXIDINE GLUCONATE 15 ML MOUTHWASH MM SCH (08:08)
[2023-06-16] MEDS: METOPROLOL TARTRATE 25 MG TABLET GT SCH ×2 (08:08→20:19)
[2023-06-16] MEDS: DIAZEPAM 5 MG TABLET GT SCH ×2 (08:08→20:18)
[2023-06-16] MEDS: AMIODARONE 100 MG GT SCH (08:08)
[2023-06-16] MEDS: REMEDY ESSENTIAL ZINC PASTE 113 GM TP SCH (08:08)
[2023-06-16] MEDS: HYDROGEN PEROXIDE 3% 118 ML BOTTLE TP SCH ×2 (09:35→21:15)
[2023-06-16 11:06] VITALS: TEMP 97.8
[2023-06-16] MEDS: PEPTAMEN AF 1000ML BAG GT PRN (17:17)
[2023-06-16 19:52] VITALS: TEMP 98.3
[2023-06-16] MEDS: MULTIVIT, IRON, MIN NO. 8, FA TABLET GT SCH (20:18)
[2023-06-16] MEDS: MAGNESIUM OXIDE 400 MG TABLET GT SCH (20:18)
[2023-06-17] MEDS: NUTRISOURCE FIBER 4 GM PACKET GT SCH ×4 (01:00→22:48)
[2023-06-17] MEDS: OMEPRAZOLE 40 MG CAPSULE.DR GT SCH (06:30)
[2023-06-17] MEDS: POLYVINYL ALCOHOL OPHT DROPS 15 ML BOTTLE EACHEYE SCH ×2 (06:30→17:28)
[2023-06-17] MEDS: HYDROGEN PEROXIDE 3% 118 ML BOTTLE TP SCH ×2 (07:17→21:24)
[2023-06-17 07:18] LABS: BASOPHILS % (AUTO) 0.8 % (0.0-2.0); EOSINOPHILS # (AUTO) 0.1 K/uL (0.0-0.7); EOSINOPHILS % (AUTO) 2.3 % (0.0-7.0); HEMATOCRIT 27.5 % (31.2-41.9); HEMOGLOBIN 9.3 g/dL (10.9-14.3); LYMPHOCYTES # (AUTO) 0.7 K/uL (0.8-4.8); LYMPHOCYTES % (AUTO) 19.2 % (20.5-51.5); MEAN CORPUSCULAR HGB CONC 34 g/dL (32.3-35.6); MEAN CORPUSCULAR VOLUME 80.2 fL (75.5-95.3); MONOCYTES # (AUTO) 0.4 K/uL (0.1-1.30); MONOCYTES % (AUTO) 10.9 % (0.0-11.0); NEUTROPHILS # (AUTO) 2.3 K/uL (1.8-8.9); NEUTROPHILS % (AUTO) 66.8 % (38.5-71.5); PLATELET COUNT (AUTO) 169 K/uL (179-408); RED BLOOD CELL COUNT(AUTO) 3.43 MIL/uL (3.63-4.92); RED CELL DISTRIBUTION WIDTH 18.2 % (12.3-17.7); WHITE BLOOD COUNT (AUTO) 3.5 K/uL (3.8-11.8)
[2023-06-17 07:25] LABS: DIFFERENTIAL COMMENT 1
[2023-06-17 07:31] LABS: CALCIUM 9.1 mg/dL (8.5-10.1); CREATININE 0.5 mg/dL (0.6-1.3); PHOSPHOROUS 3.2 mg/dL (2.5-4.9); POTASSIUM 4.4 mmol/L (3.5-5.1)
[2023-06-17 07:34] VITALS: TEMP 98.2
[2023-06-17] MEDS: ASPIRIN 81 MG TAB.CHEW GT SCH (09:43)
[2023-06-17] MEDS: DOCUSATE SODIUM 100 MG/10 ML LIQUID UDC GT SCH ×2 (09:45→21:00)
[2023-06-17] MEDS: levETIRAcetam 500 MG/5 ML LIQUID UDC GT SCH ×2 (09:47→21:00)
[2023-06-17] MEDS: METOPROLOL TARTRATE 25 MG TABLET GT SCH ×2 (09:50→21:00)
[2023-06-17] MEDS: PHENOBARBITAL 64.8 MG TABLET GT SCH ×2 (09:50→21:00)
[2023-06-17] MEDS: AMIODARONE 100 MG GT SCH (09:52)
[2023-06-17] MEDS: CHLORHEXIDINE GLUCONATE 15 ML MOUTHWASH MM SCH (09:54)
[2023-06-17] MEDS: DIAZEPAM 5 MG TABLET GT SCH ×2 (09:54→21:00)
[2023-06-17] MEDS: REMEDY ESSENTIAL ZINC PASTE 113 GM TP SCH (09:55)
[2023-06-17] MEDS ORDERED: IPRATROPIUM BROMIDE 0.5 MG/2.5 ML NEBU NEB PRN (14:00)
[2023-06-17] MEDS ORDERED: ALBUTEROL SULFATE 2.5 MG/3 ML NEBU NEB PRN (14:00)
[2023-06-17] MEDS: VITAL AF 1.2 1,000 ML LIQUID GT PRN (17:56)
[2023-06-17 20:00] VITALS: TEMP 98.1
[2023-06-17] MEDS: MAGNESIUM OXIDE 400 MG TABLET GT SCH (21:00)
[2023-06-17] MEDS: MULTIVIT, IRON, MIN NO. 8, FA TABLET GT SCH (21:00)
[2023-06-18 04:00] VITALS: TEMP 98.2
[2023-06-18] MEDS: OMEPRAZOLE 40 MG CAPSULE.DR GT SCH (05:11)
[2023-06-18] MEDS: POLYVINYL ALCOHOL OPHT DROPS 15 ML BOTTLE EACHEYE SCH ×2 (05:11→17:02)
[2023-06-18] MEDS: HYDROGEN PEROXIDE 3% 118 ML BOTTLE TP SCH ×2 (07:38→21:00)
[2023-06-18] MEDS: levETIRAcetam 500 MG/5 ML LIQUID UDC GT SCH ×2 (08:45→20:48)
[2023-06-18] MEDS: ASPIRIN 81 MG TAB.CHEW GT SCH (08:45)
[2023-06-18] MEDS: DOCUSATE SODIUM 100 MG/10 ML LIQUID UDC GT SCH ×2 (08:45→20:47)
[2023-06-18] MEDS: METOPROLOL TARTRATE 25 MG TABLET GT SCH ×2 (08:48→20:49)
[2023-06-18] MEDS: PHENOBARBITAL 64.8 MG TABLET GT SCH ×2 (08:49→20:50)
[2023-06-18] MEDS: AMIODARONE 100 MG GT SCH (08:49)
[2023-06-18] MEDS: DIAZEPAM 5 MG TABLET GT SCH ×2 (08:49→20:52)
[2023-06-18] MEDS: CHLORHEXIDINE GLUCONATE 15 ML MOUTHWASH MM SCH (08:49)
[2023-06-18] MEDS: NUTRISOURCE FIBER 4 GM PACKET GT SCH ×2 (08:49→16:37)
[2023-06-18] MEDS: REMEDY ESSENTIAL ZINC PASTE 113 GM TP SCH (08:50)
[2023-06-18 09:09] VITALS: TEMP 97.6
[2023-06-18] MEDS: VITAL AF 1.2 1,000 ML LIQUID GT PRN (17:12)
[2023-06-18 20:00] VITALS: TEMP 98.7
[2023-06-18] MEDS: MULTIVIT, IRON, MIN NO. 8, FA TABLET GT SCH (20:51)
[2023-06-18] MEDS: MAGNESIUM OXIDE 400 MG TABLET GT SCH (20:51)
[2023-06-19] MEDS: NUTRISOURCE FIBER 4 GM PACKET GT SCH ×3 (01:00→17:50)
[2023-06-19] MEDS: OMEPRAZOLE 40 MG CAPSULE.DR GT SCH (05:24)
[2023-06-19] MEDS: POLYVINYL ALCOHOL OPHT DROPS 15 ML BOTTLE EACHEYE SCH ×2 (05:24→17:50)
[2023-06-19] MEDS: ASPIRIN 81 MG TAB.CHEW GT SCH (08:44)
[2023-06-19] MEDS: HYDROGEN PEROXIDE 3% 118 ML BOTTLE TP SCH ×2 (08:44→22:36)
[2023-06-19] MEDS: DOCUSATE SODIUM 100 MG/10 ML LIQUID UDC GT SCH ×2 (08:45→20:46)
[2023-06-19] MEDS: METOPROLOL TARTRATE 25 MG TABLET GT SCH ×2 (08:46→20:47)
[2023-06-19] MEDS: levETIRAcetam 500 MG/5 ML LIQUID UDC GT SCH ×2 (08:46→20:46)
[2023-06-19] MEDS: AMIODARONE 100 MG GT SCH (08:47)
[2023-06-19] MEDS: DIAZEPAM 5 MG TABLET GT SCH ×2 (08:47→20:47)
[2023-06-19] MEDS: PHENOBARBITAL 64.8 MG TABLET GT SCH ×2 (08:47→20:47)
[2023-06-19] MEDS: CHLORHEXIDINE GLUCONATE 15 ML MOUTHWASH MM SCH (08:48)
[2023-06-19] MEDS: REMEDY ESSENTIAL ZINC PASTE 113 GM TP SCH (08:48)
[2023-06-19 11:04] VITALS: TEMP 97.3
[2023-06-19] MEDS: VITAL AF 1.2 1,000 ML LIQUID GT PRN (17:50)
[2023-06-19 20:00] VITALS: TEMP 98
[2023-06-19] MEDS: MAGNESIUM OXIDE 400 MG TABLET GT SCH (20:47)
[2023-06-19] MEDS: MULTIVIT, IRON, MIN NO. 8, FA TABLET GT SCH (20:47)
[2023-06-20] MEDS: NUTRISOURCE FIBER 4 GM PACKET GT SCH ×3 (01:00→17:59)
[2023-06-20] MEDS: OMEPRAZOLE 40 MG CAPSULE.DR GT SCH (05:57)
[2023-06-20] MEDS: POLYVINYL ALCOHOL OPHT DROPS 15 ML BOTTLE EACHEYE SCH ×2 (05:57→17:59)
[2023-06-20 07:41] VITALS: TEMP 98.2
[2023-06-20] MEDS: ASPIRIN 81 MG TAB.CHEW GT SCH (08:03)
[2023-06-20] MEDS: DOCUSATE SODIUM 100 MG/10 ML LIQUID UDC GT SCH ×2 (08:03→20:40)
[2023-06-20] MEDS: AMIODARONE 100 MG GT SCH (08:04)
[2023-06-20] MEDS: DIAZEPAM 5 MG TABLET GT SCH ×2 (08:04→20:48)
[2023-06-20] MEDS: levETIRAcetam 500 MG/5 ML LIQUID UDC GT SCH ×2 (08:04→20:40)
[2023-06-20] MEDS: PHENOBARBITAL 64.8 MG TABLET GT SCH ×2 (08:04→20:40)
[2023-06-20] MEDS: METOPROLOL TARTRATE 25 MG TABLET GT SCH ×2 (08:05→20:40)
[2023-06-20] MEDS: CHLORHEXIDINE GLUCONATE 15 ML MOUTHWASH MM SCH (08:05)
[2023-06-20] MEDS: REMEDY ESSENTIAL ZINC PASTE 113 GM TP SCH (09:00)
[2023-06-20] MEDS: HYDROGEN PEROXIDE 3% 118 ML BOTTLE TP SCH ×2 (09:30→21:52)
[2023-06-20 20:00] VITALS: TEMP 98.8
[2023-06-20] MEDS: MULTIVIT, IRON, MIN NO. 8, FA TABLET GT SCH (20:40)
[2023-06-20] MEDS: MAGNESIUM OXIDE 400 MG TABLET GT SCH (20:40)
[2023-06-20] MEDS: VITAL AF 1.2 1,000 ML LIQUID GT PRN (23:00)
[2023-06-21] MEDS: NUTRISOURCE FIBER 4 GM PACKET GT SCH ×3 (01:00→18:00)
[2023-06-21] MEDS: OMEPRAZOLE 40 MG CAPSULE.DR GT SCH (05:24)
[2023-06-21] MEDS: POLYVINYL ALCOHOL OPHT DROPS 15 ML BOTTLE EACHEYE SCH ×2 (05:24→18:11)
[2023-06-21 07:50] VITALS: TEMP 98.5
[2023-06-21] MEDS: HYDROGEN PEROXIDE 3% 118 ML BOTTLE TP SCH ×2 (08:33→21:48)
[2023-06-21] MEDS: ASPIRIN 81 MG TAB.CHEW GT SCH (08:48)
[2023-06-21] MEDS: DOCUSATE SODIUM 100 MG/10 ML LIQUID UDC GT SCH ×2 (08:48→21:05)
[2023-06-21] MEDS: levETIRAcetam 500 MG/5 ML LIQUID UDC GT SCH ×2 (08:48→21:07)
[2023-06-21] MEDS: CHLORHEXIDINE GLUCONATE 15 ML MOUTHWASH MM SCH (08:49)
[2023-06-21] MEDS: PHENOBARBITAL 64.8 MG TABLET GT SCH ×2 (08:49→21:08)
[2023-06-21] MEDS: AMIODARONE 100 MG GT SCH (08:49)
[2023-06-21] MEDS: METOPROLOL TARTRATE 25 MG TABLET GT SCH ×2 (08:49→21:07)
[2023-06-21] MEDS: REMEDY ESSENTIAL ZINC PASTE 113 GM TP SCH (08:49)
[2023-06-21] MEDS: DIAZEPAM 5 MG TABLET GT SCH ×2 (08:49→21:09)
[2023-06-21 20:00] VITALS: TEMP 98.1
[2023-06-21] MEDS: MAGNESIUM OXIDE 400 MG TABLET GT SCH (21:08)
[2023-06-21] MEDS: MULTIVIT, IRON, MIN NO. 8, FA TABLET GT SCH (21:08)
[2023-06-22] MEDS: NUTRISOURCE FIBER 4 GM PACKET GT SCH ×3 (01:00→18:00)
[2023-06-22] MEDS: VITAL AF 1.2 1,000 ML LIQUID GT PRN (04:54)
[2023-06-22] MEDS: POLYVINYL ALCOHOL OPHT DROPS 15 ML BOTTLE EACHEYE SCH ×2 (05:01→18:28)
[2023-06-22] MEDS: OMEPRAZOLE 40 MG CAPSULE.DR GT SCH (05:01)
[2023-06-22] MEDS: HYDROGEN PEROXIDE 3% 118 ML BOTTLE TP SCH ×2 (07:17→21:13)
[2023-06-22 07:43] VITALS: TEMP 97.6
[2023-06-22] MEDS: DOCUSATE SODIUM 100 MG/10 ML LIQUID UDC GT SCH ×2 (08:34→21:34)
[2023-06-22] MEDS: levETIRAcetam 500 MG/5 ML LIQUID UDC GT SCH ×2 (08:34→21:34)
[2023-06-22] MEDS: ASPIRIN 81 MG TAB.CHEW GT SCH (08:34)
[2023-06-22] MEDS: METOPROLOL TARTRATE 25 MG TABLET GT SCH ×2 (08:35→21:00)
[2023-06-22] MEDS: REMEDY ESSENTIAL ZINC PASTE 113 GM TP SCH (08:35)
[2023-06-22] MEDS: DIAZEPAM 5 MG TABLET GT SCH ×2 (08:35→21:40)
[2023-06-22] MEDS: CHLORHEXIDINE GLUCONATE 15 ML MOUTHWASH MM SCH (08:35)
[2023-06-22] MEDS: PHENOBARBITAL 64.8 MG TABLET GT SCH ×2 (08:35→21:40)
[2023-06-22] MEDS: AMIODARONE 100 MG GT SCH (08:35)
[2023-06-22 20:00] VITALS: TEMP 97
[2023-06-22] MEDS: MULTIVIT, IRON, MIN NO. 8, FA TABLET GT SCH (21:36)
[2023-06-22] MEDS: MAGNESIUM OXIDE 400 MG TABLET GT SCH (21:36)
[2023-06-23] MEDS: NUTRISOURCE FIBER 4 GM PACKET GT SCH ×3 (01:20→17:44)
[2023-06-23] MEDS: POLYVINYL ALCOHOL OPHT DROPS 15 ML BOTTLE EACHEYE SCH ×2 (05:38→17:44)
[2023-06-23] MEDS: OMEPRAZOLE 40 MG CAPSULE.DR GT SCH (05:38)
[2023-06-23] MEDS: VITAL AF 1.2 1,000 ML LIQUID GT PRN (07:03)
[2023-06-23] MEDS: HYDROGEN PEROXIDE 3% 118 ML BOTTLE TP SCH ×2 (09:00→19:18)
[2023-06-23] MEDS: REMEDY ESSENTIAL ZINC PASTE 113 GM TP SCH (09:00)
[2023-06-23] MEDS: levETIRAcetam 500 MG/5 ML LIQUID UDC GT SCH ×2 (09:00→20:39)
[2023-06-23] MEDS: CHLORHEXIDINE GLUCONATE 15 ML MOUTHWASH MM SCH (09:00)
[2023-06-23] MEDS: PHENOBARBITAL 64.8 MG TABLET GT SCH ×2 (09:00→20:40)
[2023-06-23] MEDS: DIAZEPAM 5 MG TABLET GT SCH ×2 (09:00→20:40)
[2023-06-23] MEDS: AMIODARONE 100 MG GT SCH (09:00)
[2023-06-23] MEDS: ASPIRIN 81 MG TAB.CHEW GT SCH (09:00)
[2023-06-23] MEDS: METOPROLOL TARTRATE 25 MG TABLET GT SCH ×2 (09:00→20:40)
[2023-06-23 09:27] VITALS: TEMP 97.1
[2023-06-23] MEDS: DOCUSATE SODIUM 100 MG/10 ML LIQUID UDC GT SCH ×2 (09:59→20:39)
[2023-06-23] MEDS: MAGNESIUM OXIDE 400 MG TABLET GT SCH (20:40)
[2023-06-23] MEDS: MULTIVIT, IRON, MIN NO. 8, FA TABLET GT SCH (20:40)
[2023-06-23 21:32] VITALS: TEMP 98.8
[2023-06-24] MEDS: NUTRISOURCE FIBER 4 GM PACKET GT SCH ×3 (01:00→17:32)
[2023-06-24] MEDS: VITAL AF 1.2 1,000 ML LIQUID GT PRN (04:05)
[2023-06-24] MEDS: OMEPRAZOLE 40 MG CAPSULE.DR GT SCH (05:04)
[2023-06-24] MEDS: POLYVINYL ALCOHOL OPHT DROPS 15 ML BOTTLE EACHEYE SCH ×2 (05:04→17:32)
[2023-06-24 07:28] VITALS: TEMP 98.3
[2023-06-24] MEDS: HYDROGEN PEROXIDE 3% 118 ML BOTTLE TP SCH ×2 (08:27→21:00)
[2023-06-24] MEDS: ASPIRIN 81 MG TAB.CHEW GT SCH (08:56)
[2023-06-24] MEDS: levETIRAcetam 500 MG/5 ML LIQUID UDC GT SCH ×2 (08:56→20:37)
[2023-06-24] MEDS: DOCUSATE SODIUM 100 MG/10 ML LIQUID UDC GT SCH ×2 (08:56→20:37)
[2023-06-24] MEDS: METOPROLOL TARTRATE 25 MG TABLET GT SCH ×2 (08:56→20:37)
[2023-06-24] MEDS: PHENOBARBITAL 64.8 MG TABLET GT SCH ×2 (08:57→20:37)
[2023-06-24] MEDS: REMEDY ESSENTIAL ZINC PASTE 113 GM TP SCH (08:57)
[2023-06-24] MEDS: CHLORHEXIDINE GLUCONATE 15 ML MOUTHWASH MM SCH (08:57)
[2023-06-24] MEDS: AMIODARONE 100 MG GT SCH (08:57)
[2023-06-24] MEDS: DIAZEPAM 5 MG TABLET GT SCH ×2 (08:57→20:37)
[2023-06-24] MEDS: MAGNESIUM OXIDE 400 MG TABLET GT SCH (20:37)
[2023-06-24] MEDS: MULTIVIT, IRON, MIN NO. 8, FA TABLET GT SCH (20:37)
[2023-06-24 20:41] VITALS: TEMP 97.8
[2023-06-25] MEDS: NUTRISOURCE FIBER 4 GM PACKET GT SCH ×3 (01:00→17:31)
[2023-06-25] MEDS: POLYVINYL ALCOHOL OPHT DROPS 15 ML BOTTLE EACHEYE SCH ×2 (05:16→17:32)
[2023-06-25] MEDS: OMEPRAZOLE 40 MG CAPSULE.DR GT SCH (05:17)
[2023-06-25 07:29] VITALS: TEMP 98.3
[2023-06-25] MEDS: HYDROGEN PEROXIDE 3% 118 ML BOTTLE TP SCH ×2 (08:48→19:30)
[2023-06-25] MEDS: DOCUSATE SODIUM 100 MG/10 ML LIQUID UDC GT SCH ×2 (08:53→20:59)
[2023-06-25] MEDS: levETIRAcetam 500 MG/5 ML LIQUID UDC GT SCH ×2 (08:53→20:59)
[2023-06-25] MEDS: ASPIRIN 81 MG TAB.CHEW GT SCH (08:53)
[2023-06-25] MEDS: AMIODARONE 100 MG GT SCH (08:55)
[2023-06-25] MEDS: PHENOBARBITAL 64.8 MG TABLET GT SCH ×2 (08:55→21:00)
[2023-06-25] MEDS: METOPROLOL TARTRATE 25 MG TABLET GT SCH ×2 (08:55→20:59)
[2023-06-25] MEDS: CHLORHEXIDINE GLUCONATE 15 ML MOUTHWASH MM SCH (08:55)
[2023-06-25] MEDS: DIAZEPAM 5 MG TABLET GT SCH ×2 (08:55→21:00)
[2023-06-25] MEDS: REMEDY ESSENTIAL ZINC PASTE 113 GM TP SCH (08:55)
[2023-06-25 20:00] VITALS: TEMP 98.4
[2023-06-25] MEDS: MAGNESIUM OXIDE 400 MG TABLET GT SCH (21:00)
[2023-06-25] MEDS: MULTIVIT, IRON, MIN NO. 8, FA TABLET GT SCH (21:00)
[2023-06-26] MEDS: NUTRISOURCE FIBER 4 GM PACKET GT SCH ×3 (01:14→17:23)
[2023-06-26] MEDS: VITAL AF 1.2 1,000 ML LIQUID GT PRN (04:04)
[2023-06-26] MEDS: POLYVINYL ALCOHOL OPHT DROPS 15 ML BOTTLE EACHEYE SCH ×2 (05:53→17:23)
[2023-06-26] MEDS: OMEPRAZOLE 40 MG CAPSULE.DR GT SCH (05:53)
[2023-06-26] MEDS: HYDROGEN PEROXIDE 3% 118 ML BOTTLE TP SCH ×2 (07:49→19:24)
[2023-06-26 08:00] VITALS: TEMP 97.6
[2023-06-26] MEDS: ASPIRIN 81 MG TAB.CHEW GT SCH (09:03)
[2023-06-26] MEDS: DOCUSATE SODIUM 100 MG/10 ML LIQUID UDC GT SCH ×2 (09:03→21:06)
[2023-06-26] MEDS: levETIRAcetam 500 MG/5 ML LIQUID UDC GT SCH ×2 (09:03→21:06)
[2023-06-26] MEDS: PHENOBARBITAL 64.8 MG TABLET GT SCH ×2 (09:04→21:06)
[2023-06-26] MEDS: DIAZEPAM 5 MG TABLET GT SCH ×2 (09:04→21:06)
[2023-06-26] MEDS: REMEDY ESSENTIAL ZINC PASTE 113 GM TP SCH (09:04)
[2023-06-26] MEDS: CHLORHEXIDINE GLUCONATE 15 ML MOUTHWASH MM SCH (09:04)
[2023-06-26] MEDS: METOPROLOL TARTRATE 25 MG TABLET GT SCH ×2 (09:04→21:00)
[2023-06-26] MEDS: AMIODARONE 100 MG GT SCH (09:04)
[2023-06-26 20:00] VITALS: TEMP 97.4
[2023-06-26] MEDS: MAGNESIUM OXIDE 400 MG TABLET GT SCH (21:06)
[2023-06-26] MEDS: MULTIVIT, IRON, MIN NO. 8, FA TABLET GT SCH (21:06)
[2023-06-27] MEDS: NUTRISOURCE FIBER 4 GM PACKET GT SCH ×3 (01:00→17:29)
[2023-06-27] MEDS: OMEPRAZOLE 40 MG CAPSULE.DR GT SCH (05:34)
[2023-06-27] MEDS: POLYVINYL ALCOHOL OPHT DROPS 15 ML BOTTLE EACHEYE SCH ×2 (05:34→17:30)
[2023-06-27 07:30] VITALS: TEMP 97.5
[2023-06-27] MEDS: HYDROGEN PEROXIDE 3% 118 ML BOTTLE TP SCH ×2 (07:52→21:15)
[2023-06-27] MEDS: DOCUSATE SODIUM 100 MG/10 ML LIQUID UDC GT SCH ×2 (08:58→20:47)
[2023-06-27] MEDS: ASPIRIN 81 MG TAB.CHEW GT SCH (08:58)
[2023-06-27] MEDS: levETIRAcetam 500 MG/5 ML LIQUID UDC GT SCH ×2 (08:59→20:47)
[2023-06-27] MEDS: METOPROLOL TARTRATE 25 MG TABLET GT SCH ×2 (09:00→20:47)
[2023-06-27] MEDS: CHLORHEXIDINE GLUCONATE 15 ML MOUTHWASH MM SCH (09:07)
[2023-06-27] MEDS: REMEDY ESSENTIAL ZINC PASTE 113 GM TP SCH (09:07)
[2023-06-27] MEDS: AMIODARONE 100 MG GT SCH (09:07)
[2023-06-27] MEDS: DIAZEPAM 5 MG TABLET GT SCH ×2 (09:11→20:48)
[2023-06-27] MEDS: PHENOBARBITAL 64.8 MG TABLET GT SCH ×2 (09:11→20:48)
[2023-06-27] MEDS: VITAL AF 1.2 1,000 ML LIQUID GT PRN (10:22)
[2023-06-27 20:00] VITALS: TEMP 96.9
[2023-06-27] MEDS: MULTIVIT, IRON, MIN NO. 8, FA TABLET GT SCH (20:48)
[2023-06-27] MEDS: MAGNESIUM OXIDE 400 MG TABLET GT SCH (20:48)
[2023-06-28] MEDS: NUTRISOURCE FIBER 4 GM PACKET GT SCH ×3 (01:16→17:10)
[2023-06-28] MEDS: OMEPRAZOLE 40 MG CAPSULE.DR GT SCH (06:05)
[2023-06-28] MEDS: POLYVINYL ALCOHOL OPHT DROPS 15 ML BOTTLE EACHEYE SCH ×2 (06:05→17:10)
[2023-06-28] MEDS: HYDROGEN PEROXIDE 3% 118 ML BOTTLE TP SCH ×2 (08:12→19:12)
[2023-06-28] MEDS: levETIRAcetam 500 MG/5 ML LIQUID UDC GT SCH ×2 (08:34→21:26)
[2023-06-28] MEDS: DOCUSATE SODIUM 100 MG/10 ML LIQUID UDC GT SCH ×2 (08:34→21:25)
[2023-06-28] MEDS: ASPIRIN 81 MG TAB.CHEW GT SCH (08:34)
[2023-06-28] MEDS: AMIODARONE 100 MG GT SCH (08:35)
[2023-06-28] MEDS: PHENOBARBITAL 64.8 MG TABLET GT SCH ×3 (08:35→21:00)
[2023-06-28] MEDS: METOPROLOL TARTRATE 25 MG TABLET GT SCH ×2 (08:35→21:00)
[2023-06-28] MEDS: REMEDY ESSENTIAL ZINC PASTE 113 GM TP SCH (08:36)
[2023-06-28] MEDS: DIAZEPAM 5 MG TABLET GT SCH ×2 (08:36→21:00)
[2023-06-28] MEDS: CHLORHEXIDINE GLUCONATE 15 ML MOUTHWASH MM SCH (08:36)
[2023-06-28 08:55] VITALS: TEMP 97.5
[2023-06-28 20:00] VITALS: TEMP 97
[2023-06-28] MEDS: MULTIVIT, IRON, MIN NO. 8, FA TABLET GT SCH (21:00)
[2023-06-28] MEDS: MAGNESIUM OXIDE 400 MG TABLET GT SCH (21:00)
[2023-06-29] MEDS: NUTRISOURCE FIBER 4 GM PACKET GT SCH ×3 (01:39→17:59)
[2023-06-29] MEDS: OMEPRAZOLE 40 MG CAPSULE.DR GT SCH (05:32)
[2023-06-29] MEDS: POLYVINYL ALCOHOL OPHT DROPS 15 ML BOTTLE EACHEYE SCH ×2 (05:32→18:00)
[2023-06-29 07:20] VITALS: TEMP 98.5
[2023-06-29] MEDS: HYDROGEN PEROXIDE 3% 118 ML BOTTLE TP SCH ×2 (09:00→21:02)
[2023-06-29] MEDS: PHENOBARBITAL 64.8 MG TABLET GT SCH ×2 (09:00→21:00)
[2023-06-29] MEDS: ASPIRIN 81 MG TAB.CHEW GT SCH (09:21)
[2023-06-29] MEDS: DOCUSATE SODIUM 100 MG/10 ML LIQUID UDC GT SCH ×2 (09:22→21:00)
[2023-06-29] MEDS: levETIRAcetam 500 MG/5 ML LIQUID UDC GT SCH ×2 (09:22→21:00)
[2023-06-29] MEDS: CHLORHEXIDINE GLUCONATE 15 ML MOUTHWASH MM SCH (09:23)
[2023-06-29] MEDS: DIAZEPAM 5 MG TABLET GT SCH ×2 (09:23→21:00)
[2023-06-29] MEDS: AMIODARONE 100 MG GT SCH (09:23)
[2023-06-29] MEDS: METOPROLOL TARTRATE 25 MG TABLET GT SCH ×2 (09:23→21:00)
[2023-06-29] MEDS: REMEDY ESSENTIAL ZINC PASTE 113 GM TP SCH (09:24)
[2023-06-29] MEDS: VITAL AF 1.2 1,000 ML LIQUID GT PRN (19:12)
[2023-06-29 20:00] VITALS: TEMP 97.5
[2023-06-29] MEDS: MAGNESIUM OXIDE 400 MG TABLET GT SCH (21:00)
[2023-06-29] MEDS: MULTIVIT, IRON, MIN NO. 8, FA TABLET GT SCH (21:00)
[2023-06-30] MEDS: NUTRISOURCE FIBER 4 GM PACKET GT SCH ×3 (01:00→17:29)
[2023-06-30] MEDS: POLYVINYL ALCOHOL OPHT DROPS 15 ML BOTTLE EACHEYE SCH ×2 (05:43→17:31)
[2023-06-30] MEDS: OMEPRAZOLE 40 MG CAPSULE.DR GT SCH (05:43)
[2023-06-30 08:00] VITALS: TEMP 97.2
[2023-06-30] MEDS: HYDROGEN PEROXIDE 3% 118 ML BOTTLE TP SCH ×2 (08:02→19:11)
[2023-06-30] MEDS: DOCUSATE SODIUM 100 MG/10 ML LIQUID UDC GT SCH ×2 (08:38→20:50)
[2023-06-30] MEDS: ASPIRIN 81 MG TAB.CHEW GT SCH (08:38)
[2023-06-30] MEDS: levETIRAcetam 500 MG/5 ML LIQUID UDC GT SCH ×2 (08:39→20:50)
[2023-06-30] MEDS: PHENOBARBITAL 64.8 MG TABLET GT SCH ×2 (08:44→21:05)
[2023-06-30] MEDS: METOPROLOL TARTRATE 25 MG TABLET GT SCH ×2 (08:44→20:51)
[2023-06-30] MEDS: DIAZEPAM 5 MG TABLET GT SCH ×2 (08:45→21:05)
[2023-06-30] MEDS: REMEDY ESSENTIAL ZINC PASTE 113 GM TP SCH (08:45)
[2023-06-30] MEDS: AMIODARONE 100 MG GT SCH (08:45)
[2023-06-30] MEDS: CHLORHEXIDINE GLUCONATE 15 ML MOUTHWASH MM SCH (08:45)
[2023-06-30 20:00] VITALS: TEMP 96.8
[2023-06-30] MEDS: MULTIVIT, IRON, MIN NO. 8, FA TABLET GT SCH (20:50)
[2023-06-30] MEDS: MAGNESIUM OXIDE 400 MG TABLET GT SCH (20:50)
[2023-06-30] MEDS: VITAL AF 1.2 1,000 ML LIQUID GT PRN (23:40)
[2023-07-01] MEDS: NUTRISOURCE FIBER 4 GM PACKET GT SCH ×3 (01:43→17:44)
[2023-07-01] MEDS: POLYVINYL ALCOHOL OPHT DROPS 15 ML BOTTLE EACHEYE SCH ×2 (05:10→17:45)
[2023-07-01] MEDS: OMEPRAZOLE 40 MG CAPSULE.DR GT SCH (05:10)
[2023-07-01] MEDS: HYDROGEN PEROXIDE 3% 118 ML BOTTLE TP SCH ×2 (07:14→19:18)
[2023-07-01 07:37] VITALS: TEMP 98.3
[2023-07-01] MEDS: REMEDY ESSENTIAL ZINC PASTE 113 GM TP SCH (10:00)
[2023-07-01] MEDS: PHENOBARBITAL 64.8 MG TABLET GT SCH ×2 (10:00→21:30)
[2023-07-01] MEDS: ASPIRIN 81 MG TAB.CHEW GT SCH (10:00)
[2023-07-01] MEDS: METOPROLOL TARTRATE 25 MG TABLET GT SCH ×2 (10:00→21:30)
[2023-07-01] MEDS: DIAZEPAM 5 MG TABLET GT SCH ×2 (10:00→21:30)
[2023-07-01] MEDS: AMIODARONE 100 MG GT SCH (10:00)
[2023-07-01] MEDS: CHLORHEXIDINE GLUCONATE 15 ML MOUTHWASH MM SCH (10:00)
[2023-07-01] MEDS: DOCUSATE SODIUM 100 MG/10 ML LIQUID UDC GT SCH ×2 (10:00→21:30)
[2023-07-01] MEDS: levETIRAcetam 500 MG/5 ML LIQUID UDC GT SCH ×2 (10:00→21:30)
[2023-07-01 20:00] VITALS: TEMP 97.6
[2023-07-01] MEDS: MULTIVIT, IRON, MIN NO. 8, FA TABLET GT SCH (21:30)
[2023-07-01] MEDS: MAGNESIUM OXIDE 400 MG TABLET GT SCH (21:30)
[2023-07-02] MEDS: NUTRISOURCE FIBER 4 GM PACKET GT SCH ×3 (01:28→17:39)
[2023-07-02] MEDS: VITAL AF 1.2 1,000 ML LIQUID GT PRN (03:06)
[2023-07-02] MEDS: POLYVINYL ALCOHOL OPHT DROPS 15 ML BOTTLE EACHEYE SCH ×2 (05:26→17:39)
[2023-07-02] MEDS: OMEPRAZOLE 40 MG CAPSULE.DR GT SCH (05:27)
[2023-07-02 07:26] VITALS: TEMP 97.3
[2023-07-02] MEDS: DIAZEPAM 5 MG TABLET GT SCH ×2 (08:37→20:45)
[2023-07-02] MEDS: levETIRAcetam 500 MG/5 ML LIQUID UDC GT SCH ×2 (08:37→20:45)
[2023-07-02] MEDS: DOCUSATE SODIUM 100 MG/10 ML LIQUID UDC GT SCH ×2 (08:37→20:45)
[2023-07-02] MEDS: ASPIRIN 81 MG TAB.CHEW GT SCH (08:37)
[2023-07-02] MEDS: PHENOBARBITAL 64.8 MG TABLET GT SCH ×2 (08:38→20:45)
[2023-07-02] MEDS: REMEDY ESSENTIAL ZINC PASTE 113 GM TP SCH (08:38)
[2023-07-02] MEDS: AMIODARONE 100 MG GT SCH (08:38)
[2023-07-02] MEDS: CHLORHEXIDINE GLUCONATE 15 ML MOUTHWASH MM SCH (08:38)
[2023-07-02] MEDS: METOPROLOL TARTRATE 25 MG TABLET GT SCH ×2 (08:38→20:45)
[2023-07-02] MEDS: HYDROGEN PEROXIDE 3% 118 ML BOTTLE TP SCH ×2 (09:00→19:16)
[2023-07-02 18:34] VITALS: O2SAT 99
[2023-07-02 20:00] VITALS: TEMP 97.8
[2023-07-02] MEDS: MULTIVIT, IRON, MIN NO. 8, FA TABLET GT SCH (20:45)
[2023-07-02] MEDS: MAGNESIUM OXIDE 400 MG TABLET GT SCH (20:45)
[2023-07-03] MEDS: NUTRISOURCE FIBER 4 GM PACKET GT SCH ×3 (01:22→17:10)
[2023-07-03] MEDS: POLYVINYL ALCOHOL OPHT DROPS 15 ML BOTTLE EACHEYE SCH ×2 (06:01→17:11)
[2023-07-03] MEDS: OMEPRAZOLE 40 MG CAPSULE.DR GT SCH (06:01)
[2023-07-03 07:45] VITALS: TEMP 97.7
[2023-07-03] MEDS: ASPIRIN 81 MG TAB.CHEW GT SCH (08:07)
[2023-07-03] MEDS: DOCUSATE SODIUM 100 MG/10 ML LIQUID UDC GT SCH ×2 (08:15→21:00)
[2023-07-03] MEDS: levETIRAcetam 500 MG/5 ML LIQUID UDC GT SCH ×2 (08:16→21:00)
[2023-07-03] MEDS: METOPROLOL TARTRATE 25 MG TABLET GT SCH ×2 (08:18→21:00)
[2023-07-03] MEDS: PHENOBARBITAL 64.8 MG TABLET GT SCH ×2 (08:19→21:00)
[2023-07-03] MEDS: AMIODARONE 100 MG GT SCH (08:19)
[2023-07-03] MEDS: DIAZEPAM 5 MG TABLET GT SCH ×2 (08:19→21:00)
[2023-07-03] MEDS: REMEDY ESSENTIAL ZINC PASTE 113 GM TP SCH (08:20)
[2023-07-03] MEDS: CHLORHEXIDINE GLUCONATE 15 ML MOUTHWASH MM SCH (08:20)
[2023-07-03] MEDS: HYDROGEN PEROXIDE 3% 118 ML BOTTLE TP SCH ×2 (09:00→21:06)
[2023-07-03] MEDS: VITAL AF 1.2 1,000 ML LIQUID GT PRN (11:26)
[2023-07-03 20:00] VITALS: TEMP 98.3
[2023-07-03] MEDS: MULTIVIT, IRON, MIN NO. 8, FA TABLET GT SCH (21:00)
[2023-07-03] MEDS: MAGNESIUM OXIDE 400 MG TABLET GT SCH (21:00)
[2023-07-04] MEDS: NUTRISOURCE FIBER 4 GM PACKET GT SCH ×3 (01:20→17:14)
[2023-07-04] MEDS: POLYVINYL ALCOHOL OPHT DROPS 15 ML BOTTLE EACHEYE SCH ×2 (05:42→17:14)
[2023-07-04] MEDS: OMEPRAZOLE 40 MG CAPSULE.DR GT SCH (05:42)
[2023-07-04 07:44] VITALS: TEMP 97
[2023-07-04] MEDS: DOCUSATE SODIUM 100 MG/10 ML LIQUID UDC GT SCH ×2 (08:41→21:44)
[2023-07-04] MEDS: ASPIRIN 81 MG TAB.CHEW GT SCH (08:41)
[2023-07-04] MEDS: levETIRAcetam 500 MG/5 ML LIQUID UDC GT SCH ×2 (08:42→21:44)
[2023-07-04] MEDS: AMIODARONE 100 MG GT SCH (08:44)
[2023-07-04] MEDS: PHENOBARBITAL 64.8 MG TABLET GT SCH ×2 (08:44→21:44)
[2023-07-04] MEDS: METOPROLOL TARTRATE 25 MG TABLET GT SCH ×2 (08:44→21:44)
[2023-07-04] MEDS: DIAZEPAM 5 MG TABLET GT SCH ×2 (08:44→21:44)
[2023-07-04] MEDS: REMEDY ESSENTIAL ZINC PASTE 113 GM TP SCH (08:44)
[2023-07-04] MEDS: CHLORHEXIDINE GLUCONATE 15 ML MOUTHWASH MM SCH (08:44)
[2023-07-04] MEDS: HYDROGEN PEROXIDE 3% 118 ML BOTTLE TP SCH ×2 (09:00→19:09)
[2023-07-04] MEDS: VITAL AF 1.2 1,000 ML LIQUID GT PRN (13:55)
[2023-07-04 20:00] VITALS: TEMP 98.3
[2023-07-04] MEDS: MAGNESIUM OXIDE 400 MG TABLET GT SCH (21:44)
[2023-07-04] MEDS: MULTIVIT, IRON, MIN NO. 8, FA TABLET GT SCH (21:44)
[2023-07-05] MEDS: NUTRISOURCE FIBER 4 GM PACKET GT SCH ×3 (00:22→17:02)
[2023-07-05] MEDS: POLYVINYL ALCOHOL OPHT DROPS 15 ML BOTTLE EACHEYE SCH ×2 (05:03→17:02)
[2023-07-05] MEDS: OMEPRAZOLE 40 MG CAPSULE.DR GT SCH (05:03)
[2023-07-05 08:00] VITALS: TEMP 97.8
[2023-07-05] MEDS: HYDROGEN PEROXIDE 3% 118 ML BOTTLE TP SCH ×2 (08:39→19:25)
[2023-07-05] MEDS: PHENOBARBITAL 64.8 MG TABLET GT SCH ×2 (09:17→21:33)
[2023-07-05] MEDS: AMIODARONE 100 MG GT SCH (09:17)
[2023-07-05] MEDS: CHLORHEXIDINE GLUCONATE 15 ML MOUTHWASH MM SCH (09:17)
[2023-07-05] MEDS: levETIRAcetam 500 MG/5 ML LIQUID UDC GT SCH ×2 (09:17→21:32)
[2023-07-05] MEDS: ASPIRIN 81 MG TAB.CHEW GT SCH (09:17)
[2023-07-05] MEDS: METOPROLOL TARTRATE 25 MG TABLET GT SCH ×2 (09:17→21:33)
[2023-07-05] MEDS: REMEDY ESSENTIAL ZINC PASTE 113 GM TP SCH (09:17)
[2023-07-05] MEDS: DOCUSATE SODIUM 100 MG/10 ML LIQUID UDC GT SCH ×2 (09:17→21:32)
[2023-07-05] MEDS: DIAZEPAM 5 MG TABLET GT SCH ×2 (09:17→21:32)
[2023-07-05] MEDS: VITAL AF 1.2 1,000 ML LIQUID GT PRN (17:03)
[2023-07-05 20:00] VITALS: TEMP 97.6
[2023-07-05] MEDS: MULTIVIT, IRON, MIN NO. 8, FA TABLET GT SCH (21:31)
[2023-07-05] MEDS: MAGNESIUM OXIDE 400 MG TABLET GT SCH (21:33)
[2023-07-06] MEDS: NUTRISOURCE FIBER 4 GM PACKET GT SCH ×3 (00:41→17:20)
[2023-07-06] MEDS: OMEPRAZOLE 40 MG CAPSULE.DR GT SCH (05:03)
[2023-07-06] MEDS: POLYVINYL ALCOHOL OPHT DROPS 15 ML BOTTLE EACHEYE SCH ×2 (05:03→17:20)
[2023-07-06 08:00] VITALS: TEMP 97.2
[2023-07-06] MEDS: DOCUSATE SODIUM 100 MG/10 ML LIQUID UDC GT SCH ×2 (08:32→21:46)
[2023-07-06] MEDS: ASPIRIN 81 MG TAB.CHEW GT SCH (08:32)
[2023-07-06] MEDS: levETIRAcetam 500 MG/5 ML LIQUID UDC GT SCH ×2 (08:34→21:47)
[2023-07-06] MEDS: DIAZEPAM 5 MG TABLET GT SCH ×2 (08:35→21:47)
[2023-07-06] MEDS: REMEDY ESSENTIAL ZINC PASTE 113 GM TP SCH (08:35)
[2023-07-06] MEDS: AMIODARONE 100 MG GT SCH (08:35)
[2023-07-06] MEDS: METOPROLOL TARTRATE 25 MG TABLET GT SCH ×2 (08:35→21:00)
[2023-07-06] MEDS: CHLORHEXIDINE GLUCONATE 15 ML MOUTHWASH MM SCH (08:35)
[2023-07-06] MEDS: PHENOBARBITAL 64.8 MG TABLET GT SCH ×2 (08:35→21:47)
[2023-07-06] MEDS: HYDROGEN PEROXIDE 3% 118 ML BOTTLE TP SCH ×2 (09:34→21:00)
[2023-07-06 20:00] VITALS: TEMP 97.9
[2023-07-06] MEDS: MAGNESIUM OXIDE 400 MG TABLET GT SCH (21:47)
[2023-07-06] MEDS: MULTIVIT, IRON, MIN NO. 8, FA TABLET GT SCH (21:47)
[2023-07-06] MEDS: VITAL AF 1.2 1,000 ML LIQUID GT PRN (21:53)
[2023-07-07] MEDS: NUTRISOURCE FIBER 4 GM PACKET GT SCH ×3 (01:14→17:57)
[2023-07-07] MEDS: POLYVINYL ALCOHOL OPHT DROPS 15 ML BOTTLE EACHEYE SCH ×2 (05:27→17:57)
[2023-07-07] MEDS: OMEPRAZOLE 40 MG CAPSULE.DR GT SCH (05:27)
[2023-07-07] MEDS: DOCUSATE SODIUM 100 MG/10 ML LIQUID UDC GT SCH ×2 (08:47→21:39)
[2023-07-07] MEDS: ASPIRIN 81 MG TAB.CHEW GT SCH (08:47)
[2023-07-07] MEDS: DIAZEPAM 5 MG TABLET GT SCH ×2 (08:49→21:43)
[2023-07-07] MEDS: levETIRAcetam 500 MG/5 ML LIQUID UDC GT SCH ×2 (08:49→21:39)
[2023-07-07] MEDS: PHENOBARBITAL 64.8 MG TABLET GT SCH ×2 (08:49→21:43)
[2023-07-07] MEDS: AMIODARONE 100 MG GT SCH (08:50)
[2023-07-07] MEDS: METOPROLOL TARTRATE 25 MG TABLET GT SCH ×2 (08:50→21:00)
[2023-07-07] MEDS: CHLORHEXIDINE GLUCONATE 15 ML MOUTHWASH MM SCH (08:51)
[2023-07-07] MEDS: REMEDY ESSENTIAL ZINC PASTE 113 GM TP SCH (08:51)
[2023-07-07] MEDS: HYDROGEN PEROXIDE 3% 118 ML BOTTLE TP SCH ×2 (09:00→19:27)
[2023-07-07 11:24] VITALS: TEMP 97.6
[2023-07-07 20:00] VITALS: TEMP 98.1
[2023-07-07] MEDS: MAGNESIUM OXIDE 400 MG TABLET GT SCH (21:39)
[2023-07-07] MEDS: MULTIVIT, IRON, MIN NO. 8, FA TABLET GT SCH (21:40)
[2023-07-08] MEDS: NUTRISOURCE FIBER 4 GM PACKET GT SCH ×3 (01:17→17:48)
[2023-07-08] MEDS: VITAL AF 1.2 1,000 ML LIQUID GT PRN (01:17)
[2023-07-08] MEDS: POLYVINYL ALCOHOL OPHT DROPS 15 ML BOTTLE EACHEYE SCH ×2 (05:48→17:49)
[2023-07-08] MEDS: OMEPRAZOLE 40 MG CAPSULE.DR GT SCH (05:48)
[2023-07-08 07:32] VITALS: TEMP 98.2
[2023-07-08] MEDS: METOPROLOL TARTRATE 25 MG TABLET GT SCH ×2 (09:00→20:52)
[2023-07-08] MEDS: DIAZEPAM 5 MG TABLET GT SCH ×2 (09:00→21:07)
[2023-07-08] MEDS: AMIODARONE 100 MG GT SCH (09:00)
[2023-07-08] MEDS: PHENOBARBITAL 64.8 MG TABLET GT SCH ×2 (09:00→21:09)
[2023-07-08] MEDS: CHLORHEXIDINE GLUCONATE 15 ML MOUTHWASH MM SCH (09:00)
[2023-07-08] MEDS: REMEDY ESSENTIAL ZINC PASTE 113 GM TP SCH (09:00)
[2023-07-08] MEDS: levETIRAcetam 500 MG/5 ML LIQUID UDC GT SCH ×2 (09:00→20:53)
[2023-07-08] MEDS: HYDROGEN PEROXIDE 3% 118 ML BOTTLE TP SCH ×2 (09:34→21:04)
[2023-07-08] MEDS: ASPIRIN 81 MG TAB.CHEW GT SCH (09:55)
[2023-07-08] MEDS: DOCUSATE SODIUM 100 MG/10 ML LIQUID UDC GT SCH ×2 (09:56→20:53)
[2023-07-08] MEDS: MAGNESIUM OXIDE 400 MG TABLET GT SCH (20:54)
[2023-07-08] MEDS: MULTIVIT, IRON, MIN NO. 8, FA TABLET GT SCH (20:54)
[2023-07-08 21:04] VITALS: TEMP 98.4
[2023-07-09] MEDS: NUTRISOURCE FIBER 4 GM PACKET GT SCH ×3 (01:00→17:09)
[2023-07-09] MEDS: OMEPRAZOLE 40 MG CAPSULE.DR GT SCH (05:55)
[2023-07-09] MEDS: POLYVINYL ALCOHOL OPHT DROPS 15 ML BOTTLE EACHEYE SCH ×2 (05:55→17:09)
[2023-07-09] MEDS: VITAL AF 1.2 1,000 ML LIQUID GT PRN (05:55)
[2023-07-09] MEDS: HYDROGEN PEROXIDE 3% 118 ML BOTTLE TP SCH ×2 (08:21→19:06)
[2023-07-09] MEDS: DOCUSATE SODIUM 100 MG/10 ML LIQUID UDC GT SCH ×2 (09:44→20:40)
[2023-07-09] MEDS: ASPIRIN 81 MG TAB.CHEW GT SCH (09:44)
[2023-07-09] MEDS: levETIRAcetam 500 MG/5 ML LIQUID UDC GT SCH ×2 (09:45→20:40)
[2023-07-09] MEDS: METOPROLOL TARTRATE 25 MG TABLET GT SCH ×2 (09:49→20:40)
[2023-07-09] MEDS: AMIODARONE 100 MG GT SCH (09:50)
[2023-07-09] MEDS: PHENOBARBITAL 64.8 MG TABLET GT SCH ×2 (09:50→20:40)
[2023-07-09] MEDS: DIAZEPAM 5 MG TABLET GT SCH ×2 (09:51→20:41)
[2023-07-09] MEDS: REMEDY ESSENTIAL ZINC PASTE 113 GM TP SCH (09:56)
[2023-07-09] MEDS: CHLORHEXIDINE GLUCONATE 15 ML MOUTHWASH MM SCH (09:56)
[2023-07-09 10:56] VITALS: TEMP 97.5
[2023-07-09 20:00] VITALS: TEMP 97.6
[2023-07-09] MEDS: MULTIVIT, IRON, MIN NO. 8, FA TABLET GT SCH (20:41)
[2023-07-09] MEDS: MAGNESIUM OXIDE 400 MG TABLET GT SCH (20:41)
[2023-07-10] MEDS: NUTRISOURCE FIBER 4 GM PACKET GT SCH ×3 (01:00→17:42)
[2023-07-10] MEDS: POLYVINYL ALCOHOL OPHT DROPS 15 ML BOTTLE EACHEYE SCH ×2 (05:07→17:42)
[2023-07-10] MEDS: OMEPRAZOLE 40 MG CAPSULE.DR GT SCH (05:08)
[2023-07-10] MEDS: HYDROGEN PEROXIDE 3% 118 ML BOTTLE TP SCH ×2 (07:21→19:19)
[2023-07-10 08:00] VITALS: TEMP 98.7
[2023-07-10] MEDS: ASPIRIN 81 MG TAB.CHEW GT SCH (09:30)
[2023-07-10] MEDS: DOCUSATE SODIUM 100 MG/10 ML LIQUID UDC GT SCH ×2 (09:33→21:12)
[2023-07-10] MEDS: levETIRAcetam 500 MG/5 ML LIQUID UDC GT SCH ×2 (09:34→21:12)
[2023-07-10] MEDS: METOPROLOL TARTRATE 25 MG TABLET GT SCH ×2 (09:36→21:00)
[2023-07-10] MEDS: AMIODARONE 100 MG GT SCH (09:37)
[2023-07-10] MEDS: REMEDY ESSENTIAL ZINC PASTE 113 GM TP SCH (09:37)
[2023-07-10] MEDS: CHLORHEXIDINE GLUCONATE 15 ML MOUTHWASH MM SCH (09:37)
[2023-07-10] MEDS: PHENOBARBITAL 64.8 MG TABLET GT SCH ×2 (09:44→21:13)
[2023-07-10] MEDS: DIAZEPAM 5 MG TABLET GT SCH ×2 (09:45→21:14)
[2023-07-10 20:00] VITALS: TEMP 97.4
[2023-07-10] MEDS: MAGNESIUM OXIDE 400 MG TABLET GT SCH (21:13)
[2023-07-10] MEDS: MULTIVIT, IRON, MIN NO. 8, FA TABLET GT SCH (21:14)
[2023-07-11] MEDS: NUTRISOURCE FIBER 4 GM PACKET GT SCH ×3 (01:18→17:40)
[2023-07-11] MEDS: POLYVINYL ALCOHOL OPHT DROPS 15 ML BOTTLE EACHEYE SCH ×2 (06:11→17:40)
[2023-07-11] MEDS: OMEPRAZOLE 40 MG CAPSULE.DR GT SCH (06:11)
[2023-07-11 08:00] VITALS: TEMP 98.6
[2023-07-11] MEDS: HYDROGEN PEROXIDE 3% 118 ML BOTTLE TP SCH ×2 (09:00→21:00)
[2023-07-11] MEDS: ASPIRIN 81 MG TAB.CHEW GT SCH (09:12)
[2023-07-11] MEDS: levETIRAcetam 500 MG/5 ML LIQUID UDC GT SCH ×2 (09:13→21:24)
[2023-07-11] MEDS: METOPROLOL TARTRATE 25 MG TABLET GT SCH ×2 (09:13→21:25)
[2023-07-11] MEDS: DOCUSATE SODIUM 100 MG/10 ML LIQUID UDC GT SCH ×2 (09:13→21:24)
[2023-07-11] MEDS: REMEDY ESSENTIAL ZINC PASTE 113 GM TP SCH (09:14)
[2023-07-11] MEDS: CHLORHEXIDINE GLUCONATE 15 ML MOUTHWASH MM SCH (09:14)
[2023-07-11] MEDS: AMIODARONE 100 MG GT SCH (09:14)
[2023-07-11] MEDS: PHENOBARBITAL 64.8 MG TABLET GT SCH ×2 (09:22→21:26)
[2023-07-11] MEDS: DIAZEPAM 5 MG TABLET GT SCH ×2 (09:22→21:27)
[2023-07-11 20:00] VITALS: TEMP 97.4
[2023-07-11] MEDS: MULTIVIT, IRON, MIN NO. 8, FA TABLET GT SCH (21:27)
[2023-07-11] MEDS: MAGNESIUM OXIDE 400 MG TABLET GT SCH (21:27)
[2023-07-12] MEDS: NUTRISOURCE FIBER 4 GM PACKET GT SCH ×3 (01:00→17:00)
[2023-07-12] MEDS: OMEPRAZOLE 40 MG CAPSULE.DR GT SCH (05:39)
[2023-07-12] MEDS: POLYVINYL ALCOHOL OPHT DROPS 15 ML BOTTLE EACHEYE SCH ×2 (05:39→18:47)
[2023-07-12] MEDS: HYDROGEN PEROXIDE 3% 118 ML BOTTLE TP SCH ×3 (07:40→19:09)
[2023-07-12 07:53] VITALS: TEMP 98.2
[2023-07-12] MEDS: PHENOBARBITAL 64.8 MG TABLET GT SCH ×2 (09:00→21:42)
[2023-07-12] MEDS: DIAZEPAM 5 MG TABLET GT SCH ×2 (09:00→21:42)
[2023-07-12] MEDS: CHLORHEXIDINE GLUCONATE 15 ML MOUTHWASH MM SCH (09:00)
[2023-07-12] MEDS: REMEDY ESSENTIAL ZINC PASTE 113 GM TP SCH (09:00)
[2023-07-12] MEDS: ASPIRIN 81 MG TAB.CHEW GT SCH (09:55)
[2023-07-12] MEDS: levETIRAcetam 500 MG/5 ML LIQUID UDC GT SCH ×2 (09:57→21:41)
[2023-07-12] MEDS: DOCUSATE SODIUM 100 MG/10 ML LIQUID UDC GT SCH ×2 (09:57→21:40)
[2023-07-12] MEDS: METOPROLOL TARTRATE 25 MG TABLET GT SCH ×2 (09:59→21:41)
[2023-07-12] MEDS: AMIODARONE 100 MG GT SCH (09:59)
[2023-07-12 20:00] VITALS: TEMP 98.2
[2023-07-12] MEDS: MAGNESIUM OXIDE 400 MG TABLET GT SCH (21:41)
[2023-07-12] MEDS: MULTIVIT, IRON, MIN NO. 8, FA TABLET GT SCH (21:42)
[2023-07-12] MEDS: VITAL AF 1.2 1,000 ML LIQUID GT PRN (22:30)
[2023-07-13] MEDS: NUTRISOURCE FIBER 4 GM PACKET GT SCH ×3 (01:14→17:24)
[2023-07-13] MEDS: OMEPRAZOLE 40 MG CAPSULE.DR GT SCH (05:40)
[2023-07-13] MEDS: POLYVINYL ALCOHOL OPHT DROPS 15 ML BOTTLE EACHEYE SCH ×2 (05:40→17:24)
[2023-07-13] MEDS: VITAL AF 1.2 1,000 ML LIQUID GT PRN (05:59)
[2023-07-13 07:47] VITALS: TEMP 97.7
[2023-07-13] MEDS: DOCUSATE SODIUM 100 MG/10 ML LIQUID UDC GT SCH ×2 (08:30→21:37)
[2023-07-13] MEDS: levETIRAcetam 500 MG/5 ML LIQUID UDC GT SCH ×2 (08:30→21:37)
[2023-07-13] MEDS: ASPIRIN 81 MG TAB.CHEW GT SCH (08:30)
[2023-07-13] MEDS: AMIODARONE 100 MG GT SCH (08:31)
[2023-07-13] MEDS: REMEDY ESSENTIAL ZINC PASTE 113 GM TP SCH (08:31)
[2023-07-13] MEDS: DIAZEPAM 5 MG TABLET GT SCH ×2 (08:31→21:50)
[2023-07-13] MEDS: METOPROLOL TARTRATE 25 MG TABLET GT SCH ×2 (08:31→21:39)
[2023-07-13] MEDS: HYDROGEN PEROXIDE 3% 118 ML BOTTLE TP SCH ×2 (08:31→19:12)
[2023-07-13] MEDS: CHLORHEXIDINE GLUCONATE 15 ML MOUTHWASH MM SCH (08:31)
[2023-07-13] MEDS: PHENOBARBITAL 64.8 MG TABLET GT SCH ×2 (08:31→21:54)
[2023-07-13 20:00] VITALS: TEMP 98.6
[2023-07-13] MEDS: MAGNESIUM OXIDE 400 MG TABLET GT SCH (21:39)
[2023-07-13] MEDS: MULTIVIT, IRON, MIN NO. 8, FA TABLET GT SCH (21:40)
[2023-07-14] MEDS: NUTRISOURCE FIBER 4 GM PACKET GT SCH ×3 (01:24→17:00)
[2023-07-14] MEDS: POLYVINYL ALCOHOL OPHT DROPS 15 ML BOTTLE EACHEYE SCH ×2 (05:48→18:08)
[2023-07-14] MEDS: OMEPRAZOLE 40 MG CAPSULE.DR GT SCH (05:48)
[2023-07-14] MEDS: BISACODYL 10 MG SUPP.RECT RC PRN (06:30)
[2023-07-14 08:09] VITALS: TEMP 98.8
[2023-07-14] MEDS: AMIODARONE 100 MG GT SCH (08:29)
[2023-07-14] MEDS: DOCUSATE SODIUM 100 MG/10 ML LIQUID UDC GT SCH ×2 (08:29→21:12)
[2023-07-14] MEDS: REMEDY ESSENTIAL ZINC PASTE 113 GM TP SCH (08:29)
[2023-07-14] MEDS: ASPIRIN 81 MG TAB.CHEW GT SCH (08:29)
[2023-07-14] MEDS: DIAZEPAM 5 MG TABLET GT SCH ×2 (08:29→21:13)
[2023-07-14] MEDS: CHLORHEXIDINE GLUCONATE 15 ML MOUTHWASH MM SCH (08:29)
[2023-07-14] MEDS: levETIRAcetam 500 MG/5 ML LIQUID UDC GT SCH ×2 (08:29→21:12)
[2023-07-14] MEDS: METOPROLOL TARTRATE 25 MG TABLET GT SCH ×2 (08:29→21:13)
[2023-07-14] MEDS: PHENOBARBITAL 64.8 MG TABLET GT SCH ×2 (08:29→21:13)
[2023-07-14] MEDS: HYDROGEN PEROXIDE 3% 118 ML BOTTLE TP SCH ×2 (09:00→19:07)
[2023-07-14] MEDS: MULTIVIT, IRON, MIN NO. 8, FA TABLET GT SCH (21:13)
[2023-07-14] MEDS: MAGNESIUM OXIDE 400 MG TABLET GT SCH (21:13)
[2023-07-14] MEDS: VITAL AF 1.2 1,000 ML LIQUID GT PRN (21:45)
[2023-07-14 22:22] VITALS: TEMP 98.8
[2023-07-15] MEDS: NUTRISOURCE FIBER 4 GM PACKET GT SCH ×3 (01:20→17:15)
[2023-07-15] MEDS: POLYVINYL ALCOHOL OPHT DROPS 15 ML BOTTLE EACHEYE SCH ×2 (05:10→17:15)
[2023-07-15] MEDS: OMEPRAZOLE 40 MG CAPSULE.DR GT SCH (05:10)
[2023-07-15] MEDS: HYDROGEN PEROXIDE 3% 118 ML BOTTLE TP SCH ×2 (07:23→21:39)
[2023-07-15 08:00] VITALS: TEMP 97.6
[2023-07-15] MEDS: DIAZEPAM 5 MG TABLET GT SCH ×2 (10:00→21:26)
[2023-07-15] MEDS: DOCUSATE SODIUM 100 MG/10 ML LIQUID UDC GT SCH ×2 (10:00→21:25)
[2023-07-15] MEDS: METOPROLOL TARTRATE 25 MG TABLET GT SCH ×2 (10:00→21:26)
[2023-07-15] MEDS: PHENOBARBITAL 64.8 MG TABLET GT SCH ×2 (10:00→21:26)
[2023-07-15] MEDS: AMIODARONE 100 MG GT SCH (10:00)
[2023-07-15] MEDS: REMEDY ESSENTIAL ZINC PASTE 113 GM TP SCH (10:00)
[2023-07-15] MEDS: ASPIRIN 81 MG TAB.CHEW GT SCH (10:00)
[2023-07-15] MEDS: CHLORHEXIDINE GLUCONATE 15 ML MOUTHWASH MM SCH (10:00)
[2023-07-15] MEDS: levETIRAcetam 500 MG/5 ML LIQUID UDC GT SCH ×2 (10:00→21:25)
[2023-07-15 20:29] VITALS: TEMP 96.7
[2023-07-15] MEDS: MULTIVIT, IRON, MIN NO. 8, FA TABLET GT SCH (21:26)
[2023-07-15] MEDS: MAGNESIUM OXIDE 400 MG TABLET GT SCH (21:26)
[2023-07-16] MEDS: NUTRISOURCE FIBER 4 GM PACKET GT SCH ×3 (01:05→17:21)
[2023-07-16] MEDS: VITAL AF 1.2 1,000 ML LIQUID GT PRN (01:38)
[2023-07-16] MEDS: OMEPRAZOLE 40 MG CAPSULE.DR GT SCH (05:14)
[2023-07-16] MEDS: POLYVINYL ALCOHOL OPHT DROPS 15 ML BOTTLE EACHEYE SCH ×2 (05:14→17:21)
[2023-07-16] MEDS: HYDROGEN PEROXIDE 3% 118 ML BOTTLE TP SCH ×2 (07:28→21:00)
[2023-07-16] MEDS: ASPIRIN 81 MG TAB.CHEW GT SCH (08:49)
[2023-07-16] MEDS: DOCUSATE SODIUM 100 MG/10 ML LIQUID UDC GT SCH ×2 (08:49→20:58)
[2023-07-16] MEDS: levETIRAcetam 500 MG/5 ML LIQUID UDC GT SCH ×2 (08:50→20:58)
[2023-07-16] MEDS: PHENOBARBITAL 64.8 MG TABLET GT SCH ×2 (08:51→20:59)
[2023-07-16] MEDS: AMIODARONE 100 MG GT SCH (08:51)
[2023-07-16] MEDS: DIAZEPAM 5 MG TABLET GT SCH ×2 (08:51→20:59)
[2023-07-16] MEDS: METOPROLOL TARTRATE 25 MG TABLET GT SCH ×2 (08:51→20:59)
[2023-07-16] MEDS: NEOMY/BACITRA/POLYMYXIN B OINT UD PACKET TP SCH ×2 (08:52→20:59)
[2023-07-16] MEDS: CHLORHEXIDINE GLUCONATE 15 ML MOUTHWASH MM SCH (08:52)
[2023-07-16] MEDS: REMEDY ESSENTIAL ZINC PASTE 113 GM TP SCH (08:52)
[2023-07-16] MEDS: COD LIVER OIL/ZINC OXIDE OINT 113 GM TUBE TP SCH ×2 (08:52→20:59)
[2023-07-16 09:24] VITALS: TEMP 98.1
[2023-07-16 19:59] VITALS: TEMP 97.2
[2023-07-16] MEDS: MULTIVIT, IRON, MIN NO. 8, FA TABLET GT SCH (20:59)
[2023-07-16] MEDS: MAGNESIUM OXIDE 400 MG TABLET GT SCH (20:59)
[2023-07-17] MEDS: NUTRISOURCE FIBER 4 GM PACKET GT SCH ×3 (01:00→16:28)
[2023-07-17] MEDS: VITAL AF 1.2 1,000 ML LIQUID GT PRN (03:35)
[2023-07-17] MEDS: OMEPRAZOLE 40 MG CAPSULE.DR GT SCH (05:49)
[2023-07-17] MEDS: POLYVINYL ALCOHOL OPHT DROPS 15 ML BOTTLE EACHEYE SCH ×2 (05:49→17:15)
[2023-07-17] MEDS: DOCUSATE SODIUM 100 MG/10 ML LIQUID UDC GT SCH ×2 (08:25→21:12)
[2023-07-17] MEDS: levETIRAcetam 500 MG/5 ML LIQUID UDC GT SCH ×2 (08:25→21:12)
[2023-07-17] MEDS: ASPIRIN 81 MG TAB.CHEW GT SCH (08:25)
[2023-07-17] MEDS: CHLORHEXIDINE GLUCONATE 15 ML MOUTHWASH MM SCH (08:27)
[2023-07-17] MEDS: PHENOBARBITAL 64.8 MG TABLET GT SCH ×2 (08:27→21:13)
[2023-07-17] MEDS: DIAZEPAM 5 MG TABLET GT SCH ×2 (08:27→21:13)
[2023-07-17] MEDS: AMIODARONE 100 MG GT SCH (08:27)
[2023-07-17] MEDS: METOPROLOL TARTRATE 25 MG TABLET GT SCH ×2 (08:27→21:13)
[2023-07-17] MEDS: NEOMY/BACITRA/POLYMYXIN B OINT UD PACKET TP SCH ×2 (08:28→21:14)
[2023-07-17] MEDS: REMEDY ESSENTIAL ZINC PASTE 113 GM TP SCH (08:28)
[2023-07-17] MEDS: COD LIVER OIL/ZINC OXIDE OINT 113 GM TUBE TP SCH ×2 (08:28→21:14)
[2023-07-17] MEDS: HYDROGEN PEROXIDE 3% 118 ML BOTTLE TP SCH ×2 (09:00→19:12)
[2023-07-17 10:58] VITALS: TEMP 97.8
[2023-07-17 20:00] VITALS: TEMP 97.8
[2023-07-17] MEDS: MULTIVIT, IRON, MIN NO. 8, FA TABLET GT SCH (21:13)
[2023-07-17] MEDS: MAGNESIUM OXIDE 400 MG TABLET GT SCH (21:13)
[2023-07-18] MEDS: NUTRISOURCE FIBER 4 GM PACKET GT SCH ×3 (01:00→17:32)
[2023-07-18] MEDS: OMEPRAZOLE 40 MG CAPSULE.DR GT SCH (05:57)
[2023-07-18] MEDS: POLYVINYL ALCOHOL OPHT DROPS 15 ML BOTTLE EACHEYE SCH ×2 (05:57→17:32)
[2023-07-18 08:00] VITALS: TEMP 97.5
[2023-07-18] MEDS: HYDROGEN PEROXIDE 3% 118 ML BOTTLE TP SCH ×2 (08:22→19:14)
[2023-07-18] MEDS: ASPIRIN 81 MG TAB.CHEW GT SCH (08:50)
[2023-07-18] MEDS: DOCUSATE SODIUM 100 MG/10 ML LIQUID UDC GT SCH ×2 (08:51→21:25)
[2023-07-18] MEDS: levETIRAcetam 500 MG/5 ML LIQUID UDC GT SCH ×2 (08:51→21:25)
[2023-07-18] MEDS: AMIODARONE 100 MG GT SCH (08:53)
[2023-07-18] MEDS: DIAZEPAM 5 MG TABLET GT SCH ×2 (08:53→21:26)
[2023-07-18] MEDS: METOPROLOL TARTRATE 25 MG TABLET GT SCH ×2 (08:53→21:26)
[2023-07-18] MEDS: PHENOBARBITAL 64.8 MG TABLET GT SCH ×2 (08:53→21:26)
[2023-07-18] MEDS: NEOMY/BACITRA/POLYMYXIN B OINT UD PACKET TP SCH ×2 (08:54→21:26)
[2023-07-18] MEDS: COD LIVER OIL/ZINC OXIDE OINT 113 GM TUBE TP SCH ×2 (08:54→21:26)
[2023-07-18] MEDS: REMEDY ESSENTIAL ZINC PASTE 113 GM TP SCH (08:54)
[2023-07-18] MEDS: CHLORHEXIDINE GLUCONATE 15 ML MOUTHWASH MM SCH (08:54)
[2023-07-18] MEDS: VITAL AF 1.2 1,000 ML LIQUID GT PRN (12:32)
[2023-07-18 20:34] VITALS: TEMP 97.6
[2023-07-18] MEDS: MAGNESIUM OXIDE 400 MG TABLET GT SCH (21:26)
[2023-07-18] MEDS: MULTIVIT, IRON, MIN NO. 8, FA TABLET GT SCH (21:26)
[2023-07-19] MEDS: NUTRISOURCE FIBER 4 GM PACKET GT SCH ×3 (01:00→17:18)
[2023-07-19] MEDS: BISACODYL 10 MG SUPP.RECT RC PRN (02:45)
[2023-07-19] MEDS: POLYVINYL ALCOHOL OPHT DROPS 15 ML BOTTLE EACHEYE SCH ×2 (06:12→17:19)
[2023-07-19] MEDS: OMEPRAZOLE 40 MG CAPSULE.DR GT SCH (06:12)
[2023-07-19] MEDS: levETIRAcetam 500 MG/5 ML LIQUID UDC GT SCH ×2 (09:12→21:02)
[2023-07-19] MEDS: ASPIRIN 81 MG TAB.CHEW GT SCH (09:12)
[2023-07-19] MEDS: DOCUSATE SODIUM 100 MG/10 ML LIQUID UDC GT SCH ×2 (09:12→21:00)
[2023-07-19] MEDS: DIAZEPAM 5 MG TABLET GT SCH ×2 (09:13→21:04)
[2023-07-19] MEDS: COD LIVER OIL/ZINC OXIDE OINT 113 GM TUBE TP SCH ×2 (09:13→21:04)
[2023-07-19] MEDS: CHLORHEXIDINE GLUCONATE 15 ML MOUTHWASH MM SCH (09:13)
[2023-07-19] MEDS: PHENOBARBITAL 64.8 MG TABLET GT SCH ×2 (09:13→21:04)
[2023-07-19] MEDS: NEOMY/BACITRA/POLYMYXIN B OINT UD PACKET TP SCH ×2 (09:13→21:04)
[2023-07-19] MEDS: AMIODARONE 100 MG GT SCH (09:13)
[2023-07-19] MEDS: METOPROLOL TARTRATE 25 MG TABLET GT SCH ×2 (09:13→21:03)
[2023-07-19] MEDS: REMEDY ESSENTIAL ZINC PASTE 113 GM TP SCH (09:13)
[2023-07-19] MEDS: HYDROGEN PEROXIDE 3% 118 ML BOTTLE TP SCH ×2 (09:56→19:32)
[2023-07-19 11:36] VITALS: TEMP 97.9
[2023-07-19 20:44] VITALS: TEMP 97.4
[2023-07-19] MEDS: MAGNESIUM OXIDE 400 MG TABLET GT SCH (21:03)
[2023-07-19] MEDS: MULTIVIT, IRON, MIN NO. 8, FA TABLET GT SCH (21:03)
[2023-07-20] MEDS: NUTRISOURCE FIBER 4 GM PACKET GT SCH ×3 (00:49→17:18)
[2023-07-20] MEDS: OMEPRAZOLE 40 MG CAPSULE.DR GT SCH (05:37)
[2023-07-20] MEDS: POLYVINYL ALCOHOL OPHT DROPS 15 ML BOTTLE EACHEYE SCH ×2 (05:37→17:18)
[2023-07-20] MEDS: HYDROGEN PEROXIDE 3% 118 ML BOTTLE TP SCH ×2 (07:33→19:25)
[2023-07-20 08:02] VITALS: TEMP 99.1
[2023-07-20] MEDS: levETIRAcetam 500 MG/5 ML LIQUID UDC GT SCH ×2 (09:08→21:58)
[2023-07-20] MEDS: DOCUSATE SODIUM 100 MG/10 ML LIQUID UDC GT SCH ×2 (09:08→21:00)
[2023-07-20] MEDS: ASPIRIN 81 MG TAB.CHEW GT SCH (09:08)
[2023-07-20] MEDS: METOPROLOL TARTRATE 25 MG TABLET GT SCH ×2 (09:09→21:00)
[2023-07-20] MEDS: AMIODARONE 100 MG GT SCH (09:15)
[2023-07-20] MEDS: REMEDY ESSENTIAL ZINC PASTE 113 GM TP SCH (09:15)
[2023-07-20] MEDS: PHENOBARBITAL 64.8 MG TABLET GT SCH ×2 (09:15→21:00)
[2023-07-20] MEDS: CHLORHEXIDINE GLUCONATE 15 ML MOUTHWASH MM SCH (09:15)
[2023-07-20] MEDS: DIAZEPAM 5 MG TABLET GT SCH ×2 (09:15→21:00)
[2023-07-20] MEDS: NEOMY/BACITRA/POLYMYXIN B OINT UD PACKET TP SCH ×2 (09:15→21:00)
[2023-07-20] MEDS: COD LIVER OIL/ZINC OXIDE OINT 113 GM TUBE TP SCH ×2 (09:15→21:00)
[2023-07-20 20:00] VITALS: TEMP 98.5
[2023-07-20] MEDS: MULTIVIT, IRON, MIN NO. 8, FA TABLET GT SCH (21:00)
[2023-07-20] MEDS: MAGNESIUM OXIDE 400 MG TABLET GT SCH (21:00)
[2023-07-21] MEDS: NUTRISOURCE FIBER 4 GM PACKET GT SCH ×3 (01:17→17:00)
[2023-07-21] MEDS: POLYVINYL ALCOHOL OPHT DROPS 15 ML BOTTLE EACHEYE SCH ×2 (06:15→18:13)
[2023-07-21] MEDS: OMEPRAZOLE 40 MG CAPSULE.DR GT SCH (06:15)
[2023-07-21 07:29] VITALS: TEMP 97.8
[2023-07-21] MEDS: DOCUSATE SODIUM 100 MG/10 ML LIQUID UDC GT SCH ×2 (08:52→21:21)
[2023-07-21] MEDS: ASPIRIN 81 MG TAB.CHEW GT SCH (08:52)
[2023-07-21] MEDS: levETIRAcetam 500 MG/5 ML LIQUID UDC GT SCH ×2 (08:53→21:23)
[2023-07-21] MEDS: AMIODARONE 100 MG GT SCH (08:54)
[2023-07-21] MEDS: DIAZEPAM 5 MG TABLET GT SCH ×2 (08:54→21:38)
[2023-07-21] MEDS: PHENOBARBITAL 64.8 MG TABLET GT SCH ×2 (08:54→21:38)
[2023-07-21] MEDS: METOPROLOL TARTRATE 25 MG TABLET GT SCH ×2 (08:54→21:00)
[2023-07-21] MEDS: CHLORHEXIDINE GLUCONATE 15 ML MOUTHWASH MM SCH (08:54)
[2023-07-21] MEDS: COD LIVER OIL/ZINC OXIDE OINT 113 GM TUBE TP SCH ×2 (08:55→21:23)
[2023-07-21] MEDS: REMEDY ESSENTIAL ZINC PASTE 113 GM TP SCH (08:55)
[2023-07-21] MEDS: NEOMY/BACITRA/POLYMYXIN B OINT UD PACKET TP SCH ×2 (08:55→21:23)
[2023-07-21] MEDS: HYDROGEN PEROXIDE 3% 118 ML BOTTLE TP SCH ×2 (09:49→19:10)
[2023-07-21] MEDS ORDERED: TUBERCULIN,PURIF.PROT.DERIV. 5 TU/0.1 ML TEST ID SCH (12:00)
[2023-07-21 20:49] VITALS: TEMP 98.4
[2023-07-21] MEDS: MAGNESIUM OXIDE 400 MG TABLET GT SCH (21:23)
[2023-07-21] MEDS: MULTIVIT, IRON, MIN NO. 8, FA TABLET GT SCH (21:23)
[2023-07-22] MEDS: NUTRISOURCE FIBER 4 GM PACKET GT SCH ×3 (01:00→17:03)
[2023-07-22] MEDS: VITAL AF 1.2 1,000 ML LIQUID GT PRN (05:04)
[2023-07-22] MEDS: POLYVINYL ALCOHOL OPHT DROPS 15 ML BOTTLE EACHEYE SCH ×2 (05:04→17:03)
[2023-07-22] MEDS: OMEPRAZOLE 40 MG CAPSULE.DR GT SCH (05:04)
[2023-07-22 08:59] VITALS: TEMP 97.8
[2023-07-22] MEDS: HYDROGEN PEROXIDE 3% 118 ML BOTTLE TP SCH ×2 (09:00→19:19)
[2023-07-22] MEDS: DOCUSATE SODIUM 100 MG/10 ML LIQUID UDC GT SCH ×2 (09:55→20:19)
[2023-07-22] MEDS: ASPIRIN 81 MG TAB.CHEW GT SCH (09:55)
[2023-07-22] MEDS: levETIRAcetam 500 MG/5 ML LIQUID UDC GT SCH ×2 (09:56→20:19)
[2023-07-22] MEDS: METOPROLOL TARTRATE 25 MG TABLET GT SCH ×2 (09:57→21:00)
[2023-07-22] MEDS: AMIODARONE 100 MG GT SCH (09:58)
[2023-07-22] MEDS: PHENOBARBITAL 64.8 MG TABLET GT SCH ×2 (09:58→20:21)
[2023-07-22] MEDS: NEOMY/BACITRA/POLYMYXIN B OINT UD PACKET TP SCH ×2 (09:59→20:25)
[2023-07-22] MEDS: COD LIVER OIL/ZINC OXIDE OINT 113 GM TUBE TP SCH ×2 (09:59→20:25)
[2023-07-22] MEDS: CHLORHEXIDINE GLUCONATE 15 ML MOUTHWASH MM SCH (09:59)
[2023-07-22] MEDS: DIAZEPAM 5 MG TABLET GT SCH ×2 (09:59→20:24)
[2023-07-22] MEDS: REMEDY ESSENTIAL ZINC PASTE 113 GM TP SCH (09:59)
[2023-07-22 19:26] LABS: *BILIRUBIN,URIN NEGATIVE (NEGATIVE); *BLOOD, URINE 3+ (NEGATIVE); *CLARITY,URINE CLOUDY (CLEAR); *KETONES,URINE NEGATIVE (NEGATIVE); *UROBILINOGEN,URINE 0.2 E.U./dl (NORMAL); LEUKOCYTE ESTERASE ,URINE 3+ (NEGATIVE); NITRITE, URINE POSITIVE (NEGATIVE); PH,URINE 8.5 (5.0-8.0); UGLUCOSE NEGATIVE (NEGATIVE)
[2023-07-22 19:32] LABS: *PROTEIN,URINE 3+ (NEGATIVE)
[2023-07-22 19:34] LABS: *COLOR,URINE DARK YELLOW (YELLOW)
[2023-07-22 19:53] LABS: BACTERIA,URINE MANY /HPF (NONE SEEN); RBC,URINE TNTC /HPF (0-3); SQUAMOUS EPITHELIAL CELL,UR NONE SEEN /HPF (NONE SEEN); WBC,URINE TNTC /HPF (0-3)
[2023-07-22] MEDS: MAGNESIUM OXIDE 400 MG TABLET GT SCH (20:21)
[2023-07-22 20:24] VITALS: TEMP 98
[2023-07-22] MEDS: MULTIVIT, IRON, MIN NO. 8, FA TABLET GT SCH (20:24)
[2023-07-23] MEDS: NUTRISOURCE FIBER 4 GM PACKET GT SCH ×3 (01:04→17:04)
[2023-07-23] MEDS: POLYVINYL ALCOHOL OPHT DROPS 15 ML BOTTLE EACHEYE SCH ×2 (05:29→17:05)
[2023-07-23] MEDS: OMEPRAZOLE 40 MG CAPSULE.DR GT SCH (05:29)
[2023-07-23] MEDS: VITAL AF 1.2 1,000 ML LIQUID GT PRN (05:30)
[2023-07-23 07:22] VITALS: TEMP 98.8
[2023-07-23] MEDS: ASPIRIN 81 MG TAB.CHEW GT SCH (08:58)
[2023-07-23] MEDS: DOCUSATE SODIUM 100 MG/10 ML LIQUID UDC GT SCH ×2 (08:59→21:00)
[2023-07-23] MEDS: levETIRAcetam 500 MG/5 ML LIQUID UDC GT SCH ×2 (08:59→21:00)
[2023-07-23] MEDS: METOPROLOL TARTRATE 25 MG TABLET GT SCH ×2 (08:59→21:00)
[2023-07-23] MEDS: HYDROGEN PEROXIDE 3% 118 ML BOTTLE TP SCH ×2 (09:00→19:05)
[2023-07-23] MEDS: CHLORHEXIDINE GLUCONATE 15 ML MOUTHWASH MM SCH (09:00)
[2023-07-23] MEDS: AMIODARONE 100 MG GT SCH (09:00)
[2023-07-23] MEDS: PHENOBARBITAL 64.8 MG TABLET GT SCH ×2 (09:00→21:00)
[2023-07-23] MEDS: DIAZEPAM 5 MG TABLET GT SCH ×2 (09:00→21:00)
[2023-07-23] MEDS: COD LIVER OIL/ZINC OXIDE OINT 113 GM TUBE TP SCH ×2 (09:01→21:00)
[2023-07-23] MEDS: NEOMY/BACITRA/POLYMYXIN B OINT UD PACKET TP SCH ×2 (09:01→21:00)
[2023-07-23] MEDS: REMEDY ESSENTIAL ZINC PASTE 113 GM TP SCH (09:01)
[2023-07-23] MEDS ORDERED: TUBERCULIN,PURIF.PROT.DERIV. 5 TU/0.1 ML TEST ID ONE (14:00)
[2023-07-23 19:42] VITALS: TEMP 98.9
[2023-07-23 19:45] VITALS: TEMP 98.9
[2023-07-23] MEDS: MULTIVIT, IRON, MIN NO. 8, FA TABLET GT SCH (21:00)
[2023-07-23] MEDS: MAGNESIUM OXIDE 400 MG TABLET GT SCH (21:00)
[2023-07-24] MEDS: NUTRISOURCE FIBER 4 GM PACKET GT SCH ×3 (01:34→17:47)
[2023-07-24] MEDS: VITAL AF 1.2 1,000 ML LIQUID GT PRN (01:35)
[2023-07-24] MEDS: OMEPRAZOLE 40 MG CAPSULE.DR GT SCH (06:50)
[2023-07-24] MEDS: POLYVINYL ALCOHOL OPHT DROPS 15 ML BOTTLE EACHEYE SCH ×2 (06:50→17:47)
[2023-07-24 07:59] VITALS: TEMP 97
[2023-07-24] MEDS: DOCUSATE SODIUM 100 MG/10 ML LIQUID UDC GT SCH ×2 (08:32→20:24)
[2023-07-24] MEDS: ASPIRIN 81 MG TAB.CHEW GT SCH (08:32)
[2023-07-24] MEDS: levETIRAcetam 500 MG/5 ML LIQUID UDC GT SCH ×2 (08:33→20:24)
[2023-07-24] MEDS: DIAZEPAM 5 MG TABLET GT SCH ×2 (08:34→20:26)
[2023-07-24] MEDS: PHENOBARBITAL 64.8 MG TABLET GT SCH ×2 (08:34→20:25)
[2023-07-24] MEDS: AMIODARONE 100 MG GT SCH (08:34)
[2023-07-24] MEDS: METOPROLOL TARTRATE 25 MG TABLET GT SCH ×2 (08:34→20:25)
[2023-07-24] MEDS: NEOMY/BACITRA/POLYMYXIN B OINT UD PACKET TP SCH ×2 (08:35→20:26)
[2023-07-24] MEDS: REMEDY ESSENTIAL ZINC PASTE 113 GM TP SCH (08:35)
[2023-07-24] MEDS: COD LIVER OIL/ZINC OXIDE OINT 113 GM TUBE TP SCH ×2 (08:35→20:26)
[2023-07-24] MEDS: CHLORHEXIDINE GLUCONATE 15 ML MOUTHWASH MM SCH (08:35)
[2023-07-24] MEDS: HYDROGEN PEROXIDE 3% 118 ML BOTTLE TP SCH ×2 (09:00→20:22)
[2023-07-24 20:00] VITALS: TEMP 97.8
[2023-07-24] MEDS: MAGNESIUM OXIDE 400 MG TABLET GT SCH (20:25)
[2023-07-24] MEDS: MULTIVIT, IRON, MIN NO. 8, FA TABLET GT SCH (20:26)
[2023-07-25] MEDS: NUTRISOURCE FIBER 4 GM PACKET GT SCH ×3 (01:29→17:46)
[2023-07-25] MEDS: POLYVINYL ALCOHOL OPHT DROPS 15 ML BOTTLE EACHEYE SCH ×2 (05:46→17:47)
[2023-07-25] MEDS: OMEPRAZOLE 40 MG CAPSULE.DR GT SCH (05:46)
[2023-07-25 08:10] VITALS: TEMP 97
[2023-07-25] MEDS: ASPIRIN 81 MG TAB.CHEW GT SCH (08:13)
[2023-07-25] MEDS: levETIRAcetam 500 MG/5 ML LIQUID UDC GT SCH ×2 (08:15→21:31)
[2023-07-25] MEDS: DOCUSATE SODIUM 100 MG/10 ML LIQUID UDC GT SCH ×2 (08:15→21:31)
[2023-07-25] MEDS: METOPROLOL TARTRATE 25 MG TABLET GT SCH ×2 (08:16→21:31)
[2023-07-25] MEDS: AMIODARONE 100 MG GT SCH (08:17)
[2023-07-25] MEDS: PHENOBARBITAL 64.8 MG TABLET GT SCH ×2 (08:21→21:31)
[2023-07-25] MEDS: CHLORHEXIDINE GLUCONATE 15 ML MOUTHWASH MM SCH (08:21)
[2023-07-25] MEDS: DIAZEPAM 5 MG TABLET GT SCH ×2 (08:21→21:31)
[2023-07-25] MEDS: COD LIVER OIL/ZINC OXIDE OINT 113 GM TUBE TP SCH ×2 (08:22→21:31)
[2023-07-25] MEDS: REMEDY ESSENTIAL ZINC PASTE 113 GM TP SCH (08:22)
[2023-07-25] MEDS: NEOMY/BACITRA/POLYMYXIN B OINT UD PACKET TP SCH ×2 (08:22→21:31)
[2023-07-25] MEDS: HYDROGEN PEROXIDE 3% 118 ML BOTTLE TP SCH ×2 (09:00→21:58)
[2023-07-25 20:00] VITALS: TEMP 98.6
[2023-07-25] MEDS: MULTIVIT, IRON, MIN NO. 8, FA TABLET GT SCH (21:31)
[2023-07-25] MEDS: MAGNESIUM OXIDE 400 MG TABLET GT SCH (21:31)
[2023-07-26] MEDS: NUTRISOURCE FIBER 4 GM PACKET GT SCH ×3 (01:05→16:16)
[2023-07-26] MEDS: OMEPRAZOLE 40 MG CAPSULE.DR GT SCH (05:37)
[2023-07-26] MEDS: POLYVINYL ALCOHOL OPHT DROPS 15 ML BOTTLE EACHEYE SCH ×2 (05:37→17:36)
[2023-07-26] MEDS: HYDROGEN PEROXIDE 3% 118 ML BOTTLE TP SCH ×2 (07:21→19:15)
[2023-07-26 07:41] VITALS: TEMP 97
[2023-07-26] MEDS: ASPIRIN 81 MG TAB.CHEW GT SCH (09:27)
[2023-07-26] MEDS: DOCUSATE SODIUM 100 MG/10 ML LIQUID UDC GT SCH ×2 (09:33→21:31)
[2023-07-26] MEDS: levETIRAcetam 500 MG/5 ML LIQUID UDC GT SCH ×2 (09:34→21:31)
[2023-07-26] MEDS: AMIODARONE 100 MG GT SCH (09:35)
[2023-07-26] MEDS: PHENOBARBITAL 64.8 MG TABLET GT SCH ×2 (09:35→21:32)
[2023-07-26] MEDS: METOPROLOL TARTRATE 25 MG TABLET GT SCH ×2 (09:35→21:00)
[2023-07-26] MEDS: DIAZEPAM 5 MG TABLET GT SCH ×2 (09:35→21:32)
[2023-07-26] MEDS: COD LIVER OIL/ZINC OXIDE OINT 113 GM TUBE TP SCH ×2 (09:36→21:32)
[2023-07-26] MEDS: NEOMY/BACITRA/POLYMYXIN B OINT UD PACKET TP SCH ×2 (09:36→21:32)
[2023-07-26] MEDS: REMEDY ESSENTIAL ZINC PASTE 113 GM TP SCH (09:36)
[2023-07-26] MEDS: CHLORHEXIDINE GLUCONATE 15 ML MOUTHWASH MM SCH (09:36)
[2023-07-26] MEDS: VITAL AF 1.2 1,000 ML LIQUID GT PRN (11:56)
[2023-07-26 20:00] VITALS: TEMP 97.4
[2023-07-26] MEDS: MULTIVIT, IRON, MIN NO. 8, FA TABLET GT SCH (21:32)
[2023-07-26] MEDS: MAGNESIUM OXIDE 400 MG TABLET GT SCH (21:32)
[2023-07-27] MEDS: NUTRISOURCE FIBER 4 GM PACKET GT SCH ×3 (00:06→17:03)
[2023-07-27] MEDS: OMEPRAZOLE 40 MG CAPSULE.DR GT SCH (05:37)
[2023-07-27] MEDS: POLYVINYL ALCOHOL OPHT DROPS 15 ML BOTTLE EACHEYE SCH ×2 (05:37→17:04)
[2023-07-27 08:06] VITALS: TEMP 98.1
[2023-07-27] MEDS: ASPIRIN 81 MG TAB.CHEW GT SCH (08:55)
[2023-07-27] MEDS: METOPROLOL TARTRATE 25 MG TABLET GT SCH ×2 (08:56→20:48)
[2023-07-27] MEDS: DOCUSATE SODIUM 100 MG/10 ML LIQUID UDC GT SCH ×2 (08:56→20:47)
[2023-07-27] MEDS: levETIRAcetam 500 MG/5 ML LIQUID UDC GT SCH ×2 (08:56→20:47)
[2023-07-27] MEDS: AMIODARONE 100 MG GT SCH (08:57)
[2023-07-27] MEDS: CHLORHEXIDINE GLUCONATE 15 ML MOUTHWASH MM SCH (08:57)
[2023-07-27] MEDS: DIAZEPAM 5 MG TABLET GT SCH ×2 (08:57→20:48)
[2023-07-27] MEDS: COD LIVER OIL/ZINC OXIDE OINT 113 GM TUBE TP SCH ×2 (08:57→20:48)
[2023-07-27] MEDS: PHENOBARBITAL 64.8 MG TABLET GT SCH ×2 (08:57→20:48)
[2023-07-27] MEDS: REMEDY ESSENTIAL ZINC PASTE 113 GM TP SCH (08:58)
[2023-07-27] MEDS: NEOMY/BACITRA/POLYMYXIN B OINT UD PACKET TP SCH ×2 (08:58→20:48)
[2023-07-27] MEDS: HYDROGEN PEROXIDE 3% 118 ML BOTTLE TP SCH ×2 (09:35→19:11)
[2023-07-27] MEDS: VITAL AF 1.2 1,000 ML LIQUID GT PRN (12:46)
[2023-07-27 20:00] VITALS: TEMP 97.8
[2023-07-27] MEDS: MAGNESIUM OXIDE 400 MG TABLET GT SCH (20:48)
[2023-07-27] MEDS: MULTIVIT, IRON, MIN NO. 8, FA TABLET GT SCH (20:48)
[2023-07-28] MEDS: NUTRISOURCE FIBER 4 GM PACKET GT SCH ×3 (01:26→17:23)
[2023-07-28] MEDS: OMEPRAZOLE 40 MG CAPSULE.DR GT SCH (05:15)
[2023-07-28] MEDS: POLYVINYL ALCOHOL OPHT DROPS 15 ML BOTTLE EACHEYE SCH ×2 (05:15→17:23)
[2023-07-28] MEDS: BISACODYL 10 MG SUPP.RECT RC PRN (06:11)
[2023-07-28] MEDS: HYDROGEN PEROXIDE 3% 118 ML BOTTLE TP SCH ×2 (07:32→19:10)
[2023-07-28 07:49] VITALS: TEMP 97
[2023-07-28] MEDS: ASPIRIN 81 MG TAB.CHEW GT SCH (08:50)
[2023-07-28] MEDS: DOCUSATE SODIUM 100 MG/10 ML LIQUID UDC GT SCH ×2 (08:50→21:58)
[2023-07-28] MEDS: PHENOBARBITAL 64.8 MG TABLET GT SCH ×2 (08:51→21:58)
[2023-07-28] MEDS: DIAZEPAM 5 MG TABLET GT SCH ×2 (08:51→21:58)
[2023-07-28] MEDS: levETIRAcetam 500 MG/5 ML LIQUID UDC GT SCH ×2 (08:51→21:58)
[2023-07-28] MEDS: AMIODARONE 100 MG GT SCH (08:56)
[2023-07-28] MEDS: NEOMY/BACITRA/POLYMYXIN B OINT UD PACKET TP SCH ×2 (08:57→21:58)
[2023-07-28] MEDS: REMEDY ESSENTIAL ZINC PASTE 113 GM TP SCH (08:57)
[2023-07-28] MEDS: METOPROLOL TARTRATE 25 MG TABLET GT SCH ×2 (08:57→21:58)
[2023-07-28] MEDS: COD LIVER OIL/ZINC OXIDE OINT 113 GM TUBE TP SCH ×2 (08:57→21:58)
[2023-07-28] MEDS: CHLORHEXIDINE GLUCONATE 15 ML MOUTHWASH MM SCH (08:57)
[2023-07-28] MEDS: VITAL AF 1.2 1,000 ML LIQUID GT PRN (15:41)
[2023-07-28 20:00] VITALS: TEMP 97.7
[2023-07-28] MEDS: MAGNESIUM OXIDE 400 MG TABLET GT SCH (21:58)
[2023-07-28] MEDS: MULTIVIT, IRON, MIN NO. 8, FA TABLET GT SCH (21:58)
[2023-07-29] MEDS: NUTRISOURCE FIBER 4 GM PACKET GT SCH ×3 (00:40→17:40)
[2023-07-29] MEDS: POLYVINYL ALCOHOL OPHT DROPS 15 ML BOTTLE EACHEYE SCH ×2 (05:44→17:40)
[2023-07-29] MEDS: OMEPRAZOLE 40 MG CAPSULE.DR GT SCH (05:44)
[2023-07-29 07:45] VITALS: TEMP 98.2
[2023-07-29] MEDS: HYDROGEN PEROXIDE 3% 118 ML BOTTLE TP SCH ×2 (08:06→21:21)
[2023-07-29] MEDS: ASPIRIN 81 MG TAB.CHEW GT SCH (08:39)
[2023-07-29] MEDS: DOCUSATE SODIUM 100 MG/10 ML LIQUID UDC GT SCH ×2 (08:40→21:49)
[2023-07-29] MEDS: PHENOBARBITAL 64.8 MG TABLET GT SCH ×2 (08:41→21:49)
[2023-07-29] MEDS: levETIRAcetam 500 MG/5 ML LIQUID UDC GT SCH ×2 (08:41→21:49)
[2023-07-29] MEDS: METOPROLOL TARTRATE 25 MG TABLET GT SCH ×2 (08:43→21:00)
[2023-07-29] MEDS: AMIODARONE 100 MG GT SCH (08:44)
[2023-07-29] MEDS: DIAZEPAM 5 MG TABLET GT SCH ×2 (08:45→21:49)
[2023-07-29] MEDS: NEOMY/BACITRA/POLYMYXIN B OINT UD PACKET TP SCH ×2 (08:46→21:49)
[2023-07-29] MEDS: COD LIVER OIL/ZINC OXIDE OINT 113 GM TUBE TP SCH ×2 (08:46→21:49)
[2023-07-29] MEDS: CHLORHEXIDINE GLUCONATE 15 ML MOUTHWASH MM SCH (08:46)
[2023-07-29] MEDS: REMEDY ESSENTIAL ZINC PASTE 113 GM TP SCH (08:46)
[2023-07-29] MEDS: VITAL AF 1.2 1,000 ML LIQUID GT PRN (15:43)
[2023-07-29 19:47] VITALS: TEMP 98.9
[2023-07-29] MEDS: MULTIVIT, IRON, MIN NO. 8, FA TABLET GT SCH (21:49)
[2023-07-29] MEDS: MAGNESIUM OXIDE 400 MG TABLET GT SCH (21:49)
[2023-07-30] MEDS: NUTRISOURCE FIBER 4 GM PACKET GT SCH ×3 (01:11→17:30)
[2023-07-30] MEDS: POLYVINYL ALCOHOL OPHT DROPS 15 ML BOTTLE EACHEYE SCH ×2 (05:31→17:30)
[2023-07-30] MEDS: OMEPRAZOLE 40 MG CAPSULE.DR GT SCH (05:31)
[2023-07-30 07:36] VITALS: TEMP 98.2
[2023-07-30] MEDS: ASPIRIN 81 MG TAB.CHEW GT SCH (08:48)
[2023-07-30] MEDS: DOCUSATE SODIUM 100 MG/10 ML LIQUID UDC GT SCH ×2 (08:48→21:39)
[2023-07-30] MEDS: levETIRAcetam 500 MG/5 ML LIQUID UDC GT SCH ×2 (08:51→21:39)
[2023-07-30] MEDS: PHENOBARBITAL 64.8 MG TABLET GT SCH ×2 (08:52→21:40)
[2023-07-30] MEDS: AMIODARONE 100 MG GT SCH (08:52)
[2023-07-30] MEDS: CHLORHEXIDINE GLUCONATE 15 ML MOUTHWASH MM SCH (08:53)
[2023-07-30] MEDS: DIAZEPAM 5 MG TABLET GT SCH ×2 (08:53→21:40)
[2023-07-30] MEDS: METOPROLOL TARTRATE 25 MG TABLET GT SCH ×2 (08:55→21:39)
[2023-07-30] MEDS: REMEDY ESSENTIAL ZINC PASTE 113 GM TP SCH (08:58)
[2023-07-30] MEDS: COD LIVER OIL/ZINC OXIDE OINT 113 GM TUBE TP SCH ×2 (08:58→21:44)
[2023-07-30] MEDS: HYDROGEN PEROXIDE 3% 118 ML BOTTLE TP SCH ×2 (09:00→19:23)
[2023-07-30 20:00] VITALS: TEMP 99.4
[2023-07-30] MEDS: MULTIVIT, IRON, MIN NO. 8, FA TABLET GT SCH (21:43)
[2023-07-30] MEDS: MAGNESIUM OXIDE 400 MG TABLET GT SCH (21:43)
[2023-07-30] MEDS: ACETAMINOPHEN 650 MG/20 ML UDC- SA PATIENTS-PAIN ONLY GT PRN (21:44)
[2023-07-31] MEDS: NUTRISOURCE FIBER 4 GM PACKET GT SCH ×3 (01:28→17:45)
[2023-07-31] MEDS: VITAL AF 1.2 1,000 ML LIQUID GT PRN (02:00)
[2023-07-31] MEDS: OMEPRAZOLE 40 MG CAPSULE.DR GT SCH (06:20)
[2023-07-31] MEDS: POLYVINYL ALCOHOL OPHT DROPS 15 ML BOTTLE EACHEYE SCH ×2 (06:20→17:46)
[2023-07-31] MEDS: METOPROLOL TARTRATE 25 MG TABLET GT SCH ×2 (09:00→21:44)
[2023-07-31] MEDS: HYDROGEN PEROXIDE 3% 118 ML BOTTLE TP SCH ×2 (09:00→19:11)
[2023-07-31] MEDS: ASPIRIN 81 MG TAB.CHEW GT SCH (09:38)
[2023-07-31] MEDS: AMIODARONE 100 MG GT SCH (09:38)
[2023-07-31] MEDS: DOCUSATE SODIUM 100 MG/10 ML LIQUID UDC GT SCH ×2 (09:39→21:42)
[2023-07-31] MEDS: levETIRAcetam 500 MG/5 ML LIQUID UDC GT SCH ×2 (09:42→21:43)
[2023-07-31] MEDS: COD LIVER OIL/ZINC OXIDE OINT 113 GM TUBE TP SCH ×2 (09:51→21:45)
[2023-07-31] MEDS: REMEDY ESSENTIAL ZINC PASTE 113 GM TP SCH (09:51)
[2023-07-31] MEDS: CHLORHEXIDINE GLUCONATE 15 ML MOUTHWASH MM SCH (09:51)
[2023-07-31] MEDS: PHENOBARBITAL 64.8 MG TABLET GT SCH ×2 (09:56→21:44)
[2023-07-31] MEDS: DIAZEPAM 5 MG TABLET GT SCH ×2 (09:56→21:45)
[2023-07-31 20:11] VITALS: TEMP 96.9
[2023-07-31] MEDS: MULTIVIT, IRON, MIN NO. 8, FA TABLET GT SCH (21:45)
[2023-07-31] MEDS: MAGNESIUM OXIDE 400 MG TABLET GT SCH (21:45)
[2023-08-01] MEDS: NUTRISOURCE FIBER 4 GM PACKET GT SCH ×3 (01:05→16:55)
[2023-08-01] MEDS: OMEPRAZOLE 40 MG CAPSULE.DR GT SCH (05:45)
[2023-08-01] MEDS: POLYVINYL ALCOHOL OPHT DROPS 15 ML BOTTLE EACHEYE SCH ×2 (05:45→16:55)
[2023-08-01] MEDS: HYDROGEN PEROXIDE 3% 118 ML BOTTLE TP SCH ×2 (08:11→19:10)
[2023-08-01] MEDS: ASPIRIN 81 MG TAB.CHEW GT SCH (08:54)
[2023-08-01] MEDS: levETIRAcetam 500 MG/5 ML LIQUID UDC GT SCH ×2 (08:54→21:31)
[2023-08-01] MEDS: DOCUSATE SODIUM 100 MG/10 ML LIQUID UDC GT SCH ×2 (08:54→21:30)
[2023-08-01] MEDS: PHENOBARBITAL 64.8 MG TABLET GT SCH ×2 (08:55→21:32)
[2023-08-01] MEDS: METOPROLOL TARTRATE 25 MG TABLET GT SCH ×2 (08:55→21:00)
[2023-08-01] MEDS: AMIODARONE 100 MG GT SCH (08:55)
[2023-08-01] MEDS: REMEDY ESSENTIAL ZINC PASTE 113 GM TP SCH (08:56)
[2023-08-01] MEDS: COD LIVER OIL/ZINC OXIDE OINT 113 GM TUBE TP SCH ×2 (08:56→21:33)
[2023-08-01] MEDS: CHLORHEXIDINE GLUCONATE 15 ML MOUTHWASH MM SCH (08:56)
[2023-08-01] MEDS: DIAZEPAM 5 MG TABLET GT SCH ×2 (08:56→21:33)
[2023-08-01 10:00] VITALS: TEMP 98.6
[2023-08-01 16:50] VITALS: O2SAT 99
[2023-08-01 20:00] VITALS: TEMP 97.6
[2023-08-01] MEDS: MAGNESIUM OXIDE 400 MG TABLET GT SCH (21:32)
[2023-08-01] MEDS: MULTIVIT, IRON, MIN NO. 8, FA TABLET GT SCH (21:33)
[2023-08-01 22:00] VITALS: TEMP 97.6
[2023-08-02] MEDS: NUTRISOURCE FIBER 4 GM PACKET GT SCH ×3 (01:33→16:24)
[2023-08-02] MEDS: OMEPRAZOLE 40 MG CAPSULE.DR GT SCH (05:54)
[2023-08-02] MEDS: POLYVINYL ALCOHOL OPHT DROPS 15 ML BOTTLE EACHEYE SCH ×2 (05:54→17:20)
[2023-08-02 08:00] VITALS: TEMP 98.7
[2023-08-02] MEDS: AMIODARONE 100 MG GT SCH (08:59)
[2023-08-02] MEDS: DOCUSATE SODIUM 100 MG/10 ML LIQUID UDC GT SCH ×2 (08:59→21:32)
[2023-08-02] MEDS: DIAZEPAM 5 MG TABLET GT SCH ×2 (08:59→21:39)
[2023-08-02] MEDS: ASPIRIN 81 MG TAB.CHEW GT SCH (08:59)
[2023-08-02] MEDS: levETIRAcetam 500 MG/5 ML LIQUID UDC GT SCH ×2 (08:59→21:32)
[2023-08-02] MEDS: CHLORHEXIDINE GLUCONATE 15 ML MOUTHWASH MM SCH (08:59)
[2023-08-02] MEDS: COD LIVER OIL/ZINC OXIDE OINT 113 GM TUBE TP SCH ×2 (08:59→21:34)
[2023-08-02] MEDS: PHENOBARBITAL 64.8 MG TABLET GT SCH ×2 (08:59→21:39)
[2023-08-02] MEDS: METOPROLOL TARTRATE 25 MG TABLET GT SCH ×2 (09:00→21:33)
[2023-08-02] MEDS: REMEDY ESSENTIAL ZINC PASTE 113 GM TP SCH (09:00)
[2023-08-02] MEDS: HYDROGEN PEROXIDE 3% 118 ML BOTTLE TP SCH ×2 (09:46→20:21)
[2023-08-02 14:20] VITALS: TEMP 98.2
[2023-08-02 14:54] VITALS: TEMP 98.2
[2023-08-02 15:46] LABS: BASOPHILS # (AUTO) 0.1 K/UL (0.0-0.2); BASOPHILS % (AUTO) 0.9 % (0.0-2.0); EOSINOPHILS % (AUTO) 0.1 % (0.0-7.0); HEMATOCRIT 40.7 % (31.2-41.9); HEMOGLOBIN 13.5 g/dL (10.9-14.3); LYMPHOCYTES # (AUTO) 0.3 K/uL (0.8-4.8); LYMPHOCYTES % (AUTO) 2.3 % (20.5-51.5); MEAN CORPUSCULAR HGB CONC 33 g/dL (32.3-35.6); MEAN CORPUSCULAR VOLUME 81.3 fL (75.5-95.3); MONOCYTES # (AUTO) 0.9 K/uL (0.1-1.30); MONOCYTES % (AUTO) 6.9 % (0.0-11.0); NEUTROPHILS # (AUTO) 11.6 K/uL (1.8-8.9); NEUTROPHILS % (AUTO) 89.8 % (38.5-71.5); PLATELET COUNT (AUTO) 292 K/uL (179-408); WHITE BLOOD COUNT (AUTO) 12.9 K/uL (3.8-11.8)
[2023-08-02 15:49] LABS: *BILIRUBIN,URIN NEGATIVE (NEGATIVE); *BLOOD, URINE 3+ (NEGATIVE); *CLARITY,URINE CLEAR (CLEAR); *COLOR,URINE YELLOW (YELLOW); *KETONES,URINE NEGATIVE (NEGATIVE); *UROBILINOGEN,URINE 0.2 E.U./dl (NORMAL); LEUKOCYTE ESTERASE ,URINE TRACE (NEGATIVE); NITRITE, URINE NEGATIVE (NEGATIVE); PH,URINE 8.5 (5.0-8.0)
[2023-08-02 15:54] LABS: *PROTEIN,URINE 3+ (NEGATIVE); UGLUCOSE 1+ (NEGATIVE)
[2023-08-02 15:54] LABS: DIFFERENTIAL COMMENT 1
[2023-08-02 15:57] LABS: ALBUMIN 3.4 g/dL (3.4-5.0); BILIRUBIN,TOTAL 0.4 mg/dL (0.2-1.0); CALCIUM 9.7 mg/dL (8.5-10.1); CREATININE 0.6 mg/dL (0.6-1.3); POTASSIUM 3.2 mmol/L (3.5-5.1); TOTAL PROTEIN, SERUM 9.9 g/dL (6.4-8.2)
[2023-08-02 16:18] LABS: BACTERIA,URINE FEW /HPF (NONE SEEN); RBC,URINE TNTC /HPF (0-3)
[2023-08-02 18:16] VITALS: TEMP 98.2
[2023-08-02 20:00] VITALS: BP 137/90; TEMP 96.7; O2SAT 95
[2023-08-02] MEDS: MULTIVIT, IRON, MIN NO. 8, FA TABLET GT SCH (21:34)
[2023-08-02] MEDS: MAGNESIUM OXIDE 400 MG TABLET GT SCH (21:34)
[2023-08-02 22:00] VITALS: BP 120/90; TEMP 97; O2SAT 95
[2023-08-03] MEDS: NUTRISOURCE FIBER 4 GM PACKET GT SCH ×3 (00:22→17:05)
[2023-08-03] MEDS: OMEPRAZOLE 40 MG CAPSULE.DR GT SCH (05:43)
[2023-08-03] MEDS: POLYVINYL ALCOHOL OPHT DROPS 15 ML BOTTLE EACHEYE SCH ×2 (05:43→17:05)
[2023-08-03] MEDS: ACETAMINOPHEN 650 MG/20 ML UDC- SA PATIENTS-PAIN ONLY GT PRN ×2 (06:55→18:56)
[2023-08-03 07:03] VITALS: BP 108/77; TEMP 98.7; O2SAT 94
[2023-08-03] MEDS: HYDROGEN PEROXIDE 3% 118 ML BOTTLE TP SCH ×2 (07:30→21:46)
[2023-08-03 09:14] VITALS: TEMP 99
[2023-08-03] MEDS: ASPIRIN 81 MG TAB.CHEW GT SCH (09:53)
[2023-08-03] MEDS: DOCUSATE SODIUM 100 MG/10 ML LIQUID UDC GT SCH ×2 (09:54→21:00)
[2023-08-03] MEDS: levETIRAcetam 500 MG/5 ML LIQUID UDC GT SCH ×2 (09:54→21:00)
[2023-08-03] MEDS: AMIODARONE 100 MG GT SCH (09:55)
[2023-08-03] MEDS: METOPROLOL TARTRATE 25 MG TABLET GT SCH ×2 (09:55→21:00)
[2023-08-03] MEDS: CHLORHEXIDINE GLUCONATE 15 ML MOUTHWASH MM SCH (09:55)
[2023-08-03] MEDS: DIAZEPAM 5 MG TABLET GT SCH ×2 (09:55→21:00)
[2023-08-03] MEDS: PHENOBARBITAL 64.8 MG TABLET GT SCH ×2 (09:55→21:00)
[2023-08-03] MEDS: REMEDY ESSENTIAL ZINC PASTE 113 GM TP SCH (09:55)
[2023-08-03] MEDS: COD LIVER OIL/ZINC OXIDE OINT 113 GM TUBE TP SCH ×2 (09:55→21:00)
[2023-08-03 18:20] VITALS: TEMP 98.9
[2023-08-03 20:00] VITALS: TEMP 100.7
[2023-08-03] MEDS: MULTIVIT, IRON, MIN NO. 8, FA TABLET GT SCH (21:00)
[2023-08-03] MEDS: MAGNESIUM OXIDE 400 MG TABLET GT SCH (21:00)
[2023-08-04] MEDS: NUTRISOURCE FIBER 4 GM PACKET GT SCH ×3 (00:38→16:45)
[2023-08-04] MEDS: ACETAMINOPHEN 650 MG/20 ML UDC- SA PATIENTS-PAIN ONLY GT PRN (04:11)
[2023-08-04] MEDS: POLYVINYL ALCOHOL OPHT DROPS 15 ML BOTTLE EACHEYE SCH ×2 (05:33→18:53)
[2023-08-04] MEDS: OMEPRAZOLE 40 MG CAPSULE.DR GT SCH (05:33)
[2023-08-04 06:00] VITALS: TEMP 97; O2SAT 95
[2023-08-04 08:16] VITALS: TEMP 100.5
[2023-08-04] MEDS: HYDROGEN PEROXIDE 3% 118 ML BOTTLE TP SCH ×2 (09:00→19:14)
[2023-08-04] MEDS: DOCUSATE SODIUM 100 MG/10 ML LIQUID UDC GT SCH ×2 (09:40→20:38)
[2023-08-04] MEDS: levETIRAcetam 500 MG/5 ML LIQUID UDC GT SCH ×2 (09:40→20:38)
[2023-08-04] MEDS: ASPIRIN 81 MG TAB.CHEW GT SCH (09:40)
[2023-08-04] MEDS: CHLORHEXIDINE GLUCONATE 15 ML MOUTHWASH MM SCH (09:45)
[2023-08-04] MEDS: DIAZEPAM 5 MG TABLET GT SCH ×2 (09:45→20:38)
[2023-08-04] MEDS: COD LIVER OIL/ZINC OXIDE OINT 113 GM TUBE TP SCH ×2 (09:45→20:38)
[2023-08-04] MEDS: PHENOBARBITAL 64.8 MG TABLET GT SCH ×2 (09:45→20:38)
[2023-08-04] MEDS: METOPROLOL TARTRATE 25 MG TABLET GT SCH ×2 (09:45→20:38)
[2023-08-04] MEDS: AMIODARONE 100 MG GT SCH (09:45)
[2023-08-04] MEDS: REMEDY ESSENTIAL ZINC PASTE 113 GM TP SCH (09:45)
[2023-08-04] MEDS: ACETAMINOPHEN 650 MG/20 ML UDC- SA PATIENTS-FEVER ONLY GT PRN (09:50)
[2023-08-04] MEDS ORDERED: MEROPENEM 0.5 G in IV NORMAL SALINE 50 ML IV SCH (11:30)
[2023-08-04] MEDS: MEROPENEM 1 G in IV NORMAL SALINE 100 ML IV SCH ×3 (11:30→21:40)
[2023-08-04 20:00] VITALS: TEMP 98.1
[2023-08-04] MEDS: MAGNESIUM OXIDE 400 MG TABLET GT SCH (20:38)
[2023-08-04] MEDS: MULTIVIT, IRON, MIN NO. 8, FA TABLET GT SCH (20:38)
[2023-08-04] MEDS: VITAL AF 1.2 1,000 ML LIQUID GT PRN (20:39)
[2023-08-05] MEDS: NUTRISOURCE FIBER 4 GM PACKET GT SCH ×3 (00:17→16:35)
[2023-08-05 04:26] VITALS: TEMP 99.2
[2023-08-05] MEDS: POLYVINYL ALCOHOL OPHT DROPS 15 ML BOTTLE EACHEYE SCH ×2 (05:24→17:32)
[2023-08-05] MEDS: OMEPRAZOLE 40 MG CAPSULE.DR GT SCH (05:24)
[2023-08-05] MEDS: MEROPENEM 1 G in IV NORMAL SALINE 100 ML IV SCH ×3 (05:45→21:43)
[2023-08-05 06:23] LABS: BASOPHILS % (AUTO) 0.5 % (0.0-2.0); EOSINOPHILS # (AUTO) 0.1 K/uL (0.0-0.7); EOSINOPHILS % (AUTO) 0.8 % (0.0-7.0); HEMATOCRIT 36.9 % (31.2-41.9); HEMOGLOBIN 12.7 g/dL (10.9-14.3); LYMPHOCYTES # (AUTO) 1.2 K/uL (0.8-4.8); LYMPHOCYTES % (AUTO) 12.9 % (20.5-51.5); MEAN CORPUSCULAR HEMOGLOBIN 27.4 uug (24.7-32.8); MEAN CORPUSCULAR HGB CONC 35 g/dL (32.3-35.6); MEAN CORPUSCULAR VOLUME 79.4 fL (75.5-95.3); MONOCYTES % (AUTO) 11.4 % (0.0-11.0); NEUTROPHILS # (AUTO) 6.8 K/uL (1.8-8.9); NEUTROPHILS % (AUTO) 74.4 % (38.5-71.5); PLATELET COUNT (AUTO) 266 K/uL (179-408); RED BLOOD CELL COUNT(AUTO) 4.65 MIL/uL (3.63-4.92); RED CELL DISTRIBUTION WIDTH 16.5 % (12.3-17.7); WHITE BLOOD COUNT (AUTO) 9.1 K/uL (3.8-11.8)
[2023-08-05 06:42] LABS: CALCIUM 8.6 mg/dL (8.5-10.1); CREATININE 0.7 mg/dL (0.6-1.3); MAGNESIUM 2.4 mg/dL (1.8-2.4); PHOSPHOROUS 1.7 mg/dL (2.5-4.9); POTASSIUM 4.6 mmol/L (3.5-5.1)
[2023-08-05 07:09] LABS: DIFFERENTIAL COMMENT 1
[2023-08-05] MEDS: HYDROGEN PEROXIDE 3% 118 ML BOTTLE TP SCH ×2 (07:11→20:58)
[2023-08-05 08:00] VITALS: TEMP 98.2
[2023-08-05] MEDS: AMIODARONE 100 MG GT SCH (09:00)
[2023-08-05] MEDS: DOCUSATE SODIUM 100 MG/10 ML LIQUID UDC GT SCH ×2 (09:00→21:04)
[2023-08-05] MEDS: CHLORHEXIDINE GLUCONATE 15 ML MOUTHWASH MM SCH (09:00)
[2023-08-05] MEDS: COD LIVER OIL/ZINC OXIDE OINT 113 GM TUBE TP SCH ×2 (09:00→21:04)
[2023-08-05] MEDS: PHENOBARBITAL 64.8 MG TABLET GT SCH ×2 (09:00→21:04)
[2023-08-05] MEDS: levETIRAcetam 500 MG/5 ML LIQUID UDC GT SCH ×2 (09:00→21:04)
[2023-08-05] MEDS: ASPIRIN 81 MG TAB.CHEW GT SCH (09:00)
[2023-08-05] MEDS: REMEDY ESSENTIAL ZINC PASTE 113 GM TP SCH (09:00)
[2023-08-05] MEDS: METOPROLOL TARTRATE 25 MG TABLET GT SCH ×2 (09:00→21:04)
[2023-08-05] MEDS: DIAZEPAM 5 MG TABLET GT SCH ×2 (09:00→21:04)
[2023-08-05] MEDS ORDERED: NEUTRA PHOS PACKET GT ONE (15:30)
[2023-08-05 20:00] VITALS: TEMP 98.5
[2023-08-05] MEDS: MAGNESIUM OXIDE 400 MG TABLET GT SCH (21:04)
[2023-08-05] MEDS: MULTIVIT, IRON, MIN NO. 8, FA TABLET GT SCH (21:04)
[2023-08-05] MEDS: ACETAMINOPHEN 650 MG/20 ML UDC- SA PATIENTS-PAIN ONLY GT PRN (21:05)
[2023-08-06] MEDS: NUTRISOURCE FIBER 4 GM PACKET GT SCH ×3 (00:43→17:32)
[2023-08-06] MEDS: VITAL AF 1.2 1,000 ML LIQUID GT PRN (00:43)
[2023-08-06] MEDS: MEROPENEM 1 G in IV NORMAL SALINE 100 ML IV SCH ×3 (05:28→21:47)
[2023-08-06] MEDS: OMEPRAZOLE 40 MG CAPSULE.DR GT SCH (05:46)
[2023-08-06] MEDS: POLYVINYL ALCOHOL OPHT DROPS 15 ML BOTTLE EACHEYE SCH ×2 (05:46→17:33)
[2023-08-06] MEDS: HYDROGEN PEROXIDE 3% 118 ML BOTTLE TP SCH ×2 (09:00→19:19)
[2023-08-06] MEDS: ASPIRIN 81 MG TAB.CHEW GT SCH (09:41)
[2023-08-06] MEDS: DOCUSATE SODIUM 100 MG/10 ML LIQUID UDC GT SCH ×2 (09:41→20:56)
[2023-08-06] MEDS: levETIRAcetam 500 MG/5 ML LIQUID UDC GT SCH ×2 (09:43→20:56)
[2023-08-06] MEDS: PHENOBARBITAL 64.8 MG TABLET GT SCH ×2 (09:44→20:59)
[2023-08-06] MEDS: METOPROLOL TARTRATE 25 MG TABLET GT SCH ×2 (09:44→20:57)
[2023-08-06] MEDS: AMIODARONE 100 MG GT SCH (09:44)
[2023-08-06] MEDS: CHLORHEXIDINE GLUCONATE 15 ML MOUTHWASH MM SCH (09:45)
[2023-08-06] MEDS: REMEDY ESSENTIAL ZINC PASTE 113 GM TP SCH (09:45)
[2023-08-06] MEDS: DIAZEPAM 5 MG TABLET GT SCH ×2 (09:45→21:00)
[2023-08-06 10:15] VITALS: TEMP 98.5
[2023-08-06 17:52] VITALS: TEMP 98.5
[2023-08-06 19:59] VITALS: TEMP 98.6
[2023-08-06] MEDS: MAGNESIUM OXIDE 400 MG TABLET GT SCH (20:59)
[2023-08-06] MEDS: MULTIVIT, IRON, MIN NO. 8, FA TABLET GT SCH (21:00)
[2023-08-07] MEDS: NUTRISOURCE FIBER 4 GM PACKET GT SCH ×3 (01:00→17:12)
[2023-08-07] MEDS: POLYVINYL ALCOHOL OPHT DROPS 15 ML BOTTLE EACHEYE SCH ×2 (05:54→17:13)
[2023-08-07] MEDS: OMEPRAZOLE 40 MG CAPSULE.DR GT SCH (05:54)
[2023-08-07] MEDS: MEROPENEM 1 G in IV NORMAL SALINE 100 ML IV SCH ×2 (06:01→14:03)
[2023-08-07] MEDS: VITAL AF 1.2 1,000 ML LIQUID GT PRN (06:47)
[2023-08-07] MEDS: HYDROGEN PEROXIDE 3% 118 ML BOTTLE TP SCH ×2 (07:28→19:05)
[2023-08-07 08:19] VITALS: BP 100/76; TEMP 98.2; O2SAT 98
[2023-08-07] MEDS: DIAZEPAM 5 MG TABLET GT SCH ×2 (09:09→21:24)
[2023-08-07] MEDS: PHENOBARBITAL 64.8 MG TABLET GT SCH ×2 (09:09→21:23)
[2023-08-07] MEDS: ASPIRIN 81 MG TAB.CHEW GT SCH (09:10)
[2023-08-07] MEDS: DOCUSATE SODIUM 100 MG/10 ML LIQUID UDC GT SCH ×2 (09:11→21:21)
[2023-08-07] MEDS: levETIRAcetam 500 MG/5 ML LIQUID UDC GT SCH ×2 (09:11→21:21)
[2023-08-07] MEDS: METOPROLOL TARTRATE 25 MG TABLET GT SCH ×2 (09:19→21:22)
[2023-08-07] MEDS: AMIODARONE 100 MG GT SCH (09:20)
[2023-08-07] MEDS: REMEDY ESSENTIAL ZINC PASTE 113 GM TP SCH (09:21)
[2023-08-07] MEDS: CHLORHEXIDINE GLUCONATE 15 ML MOUTHWASH MM SCH (09:22)
[2023-08-07 20:00] VITALS: TEMP 99.5
[2023-08-07] MEDS: MAGNESIUM OXIDE 400 MG TABLET GT SCH (21:23)
[2023-08-07] MEDS: MULTIVIT, IRON, MIN NO. 8, FA TABLET GT SCH (21:24)
[2023-08-07] MEDS: SULFAMETH/TRIMETH 800/160 MG TABLET PO SCH (21:26)
[2023-08-07] MEDS: COD LIVER OIL/ZINC OXIDE OINT 113 GM TUBE TP SCH (21:26)
[2023-08-08] MEDS: NUTRISOURCE FIBER 4 GM PACKET GT SCH ×3 (01:00→16:42)
[2023-08-08] MEDS: OMEPRAZOLE 40 MG CAPSULE.DR GT SCH (05:27)
[2023-08-08] MEDS: POLYVINYL ALCOHOL OPHT DROPS 15 ML BOTTLE EACHEYE SCH ×2 (05:27→18:21)
[2023-08-08 07:44] VITALS: TEMP 97.8
[2023-08-08] MEDS: HYDROGEN PEROXIDE 3% 118 ML BOTTLE TP SCH ×2 (08:15→21:07)
[2023-08-08] MEDS: DOCUSATE SODIUM 100 MG/10 ML LIQUID UDC GT SCH ×2 (09:34→21:39)
[2023-08-08] MEDS: ASPIRIN 81 MG TAB.CHEW GT SCH (09:34)
[2023-08-08] MEDS: levETIRAcetam 500 MG/5 ML LIQUID UDC GT SCH ×2 (09:35→21:40)
[2023-08-08] MEDS: AMIODARONE 100 MG GT SCH (09:35)
[2023-08-08] MEDS: METOPROLOL TARTRATE 25 MG TABLET GT SCH ×2 (09:38→21:41)
[2023-08-08] MEDS: CHLORHEXIDINE GLUCONATE 15 ML MOUTHWASH MM SCH (09:38)
[2023-08-08] MEDS: PHENOBARBITAL 64.8 MG TABLET GT SCH ×2 (09:38→21:42)
[2023-08-08] MEDS: DIAZEPAM 5 MG TABLET GT SCH ×2 (09:38→21:42)
[2023-08-08] MEDS: REMEDY ESSENTIAL ZINC PASTE 113 GM TP SCH (09:39)
[2023-08-08] MEDS: COD LIVER OIL/ZINC OXIDE OINT 113 GM TUBE TP SCH ×2 (09:39→21:47)
[2023-08-08] MEDS: SULFAMETH/TRIMETH 800/160 MG TABLET PO SCH ×2 (09:39→21:42)
[2023-08-08] MEDS: VITAL AF 1.2 1,000 ML LIQUID GT PRN (09:42)
[2023-08-08] MEDS: MAGNESIUM OXIDE 400 MG TABLET GT SCH (21:42)
[2023-08-08] MEDS: MULTIVIT, IRON, MIN NO. 8, FA TABLET GT SCH (21:42)
[2023-08-09] MEDS: NUTRISOURCE FIBER 4 GM PACKET GT SCH ×3 (01:00→17:07)
[2023-08-09] MEDS: POLYVINYL ALCOHOL OPHT DROPS 15 ML BOTTLE EACHEYE SCH ×2 (05:32→17:07)
[2023-08-09] MEDS: OMEPRAZOLE 40 MG CAPSULE.DR GT SCH (05:32)
[2023-08-09] MEDS: HYDROGEN PEROXIDE 3% 118 ML BOTTLE TP SCH ×2 (07:19→19:08)
[2023-08-09 08:01] VITALS: TEMP 97.9
[2023-08-09] MEDS: DIAZEPAM 5 MG TABLET GT SCH ×2 (09:18→21:00)
[2023-08-09] MEDS: levETIRAcetam 500 MG/5 ML LIQUID UDC GT SCH ×2 (09:18→21:10)
[2023-08-09] MEDS: AMIODARONE 100 MG GT SCH (09:18)
[2023-08-09] MEDS: REMEDY ESSENTIAL ZINC PASTE 113 GM TP SCH (09:18)
[2023-08-09] MEDS: SULFAMETH/TRIMETH 800/160 MG TABLET PO SCH ×2 (09:18→21:00)
[2023-08-09] MEDS: COD LIVER OIL/ZINC OXIDE OINT 113 GM TUBE TP SCH ×2 (09:18→21:14)
[2023-08-09] MEDS: DOCUSATE SODIUM 100 MG/10 ML LIQUID UDC GT SCH ×2 (09:18→21:10)
[2023-08-09] MEDS: METOPROLOL TARTRATE 25 MG TABLET GT SCH ×2 (09:18→21:12)
[2023-08-09] MEDS: CHLORHEXIDINE GLUCONATE 15 ML MOUTHWASH MM SCH (09:18)
[2023-08-09] MEDS: PHENOBARBITAL 64.8 MG TABLET GT SCH ×2 (09:18→21:00)
[2023-08-09] MEDS: ASPIRIN 81 MG TAB.CHEW GT SCH (09:18)
[2023-08-09 15:12] VITALS: TEMP 97.9
[2023-08-09 20:00] VITALS: TEMP 98; TEMP 98.8
[2023-08-09] MEDS: MULTIVIT, IRON, MIN NO. 8, FA TABLET GT SCH (21:12)
[2023-08-09] MEDS: MAGNESIUM OXIDE 400 MG TABLET GT SCH (21:12)
[2023-08-10] MEDS: NUTRISOURCE FIBER 4 GM PACKET GT SCH ×3 (01:00→16:23)
[2023-08-10] MEDS: OMEPRAZOLE 40 MG CAPSULE.DR GT SCH (05:45)
[2023-08-10] MEDS: POLYVINYL ALCOHOL OPHT DROPS 15 ML BOTTLE EACHEYE SCH ×2 (05:45→17:33)
[2023-08-10] MEDS: HYDROGEN PEROXIDE 3% 118 ML BOTTLE TP SCH ×2 (08:26→19:13)
[2023-08-10] MEDS: SULFAMETH/TRIMETH 800/160 MG TABLET PO SCH (09:00)
[2023-08-10] MEDS: ASPIRIN 81 MG TAB.CHEW GT SCH (09:46)
[2023-08-10] MEDS: DOCUSATE SODIUM 100 MG/10 ML LIQUID UDC GT SCH ×2 (09:46→21:20)
[2023-08-10] MEDS: levETIRAcetam 500 MG/5 ML LIQUID UDC GT SCH ×2 (09:47→21:20)
[2023-08-10] MEDS: METOPROLOL TARTRATE 25 MG TABLET GT SCH ×2 (09:54→21:36)
[2023-08-10] MEDS: PHENOBARBITAL 64.8 MG TABLET GT SCH ×2 (09:54→21:27)
[2023-08-10] MEDS: CHLORHEXIDINE GLUCONATE 15 ML MOUTHWASH MM SCH (09:55)
[2023-08-10] MEDS: DIAZEPAM 5 MG TABLET GT SCH ×2 (09:55→21:27)
[2023-08-10] MEDS: AMIODARONE 100 MG GT SCH (09:55)
[2023-08-10] MEDS: COD LIVER OIL/ZINC OXIDE OINT 113 GM TUBE TP SCH ×2 (09:58→21:20)
[2023-08-10] MEDS: REMEDY ESSENTIAL ZINC PASTE 113 GM TP SCH (09:58)
[2023-08-10 12:09] VITALS: TEMP 97.8
[2023-08-10] MEDS: VITAL AF 1.2 1,000 ML LIQUID GT PRN (16:23)
[2023-08-10] MEDS: MAGNESIUM OXIDE 400 MG TABLET GT SCH (21:20)
[2023-08-10] MEDS: MULTIVIT, IRON, MIN NO. 8, FA TABLET GT SCH (21:20)
[2023-08-10 22:00] VITALS: TEMP 98.6
[2023-08-11] MEDS: NUTRISOURCE FIBER 4 GM PACKET GT SCH ×3 (00:44→17:03)
[2023-08-11] MEDS: OMEPRAZOLE 40 MG CAPSULE.DR GT SCH (05:02)
[2023-08-11] MEDS: POLYVINYL ALCOHOL OPHT DROPS 15 ML BOTTLE EACHEYE SCH ×2 (05:02→17:03)
[2023-08-11] MEDS: HYDROGEN PEROXIDE 3% 118 ML BOTTLE TP SCH ×2 (07:13→19:11)
[2023-08-11 08:05] VITALS: TEMP 97.8
[2023-08-11] MEDS: levETIRAcetam 500 MG/5 ML LIQUID UDC GT SCH ×2 (08:54→21:00)
[2023-08-11] MEDS: ASPIRIN 81 MG TAB.CHEW GT SCH (08:54)
[2023-08-11] MEDS: DOCUSATE SODIUM 100 MG/10 ML LIQUID UDC GT SCH ×2 (08:54→21:00)
[2023-08-11] MEDS: AMIODARONE 100 MG GT SCH (08:56)
[2023-08-11] MEDS: METOPROLOL TARTRATE 25 MG TABLET GT SCH ×2 (08:56→21:00)
[2023-08-11] MEDS: COD LIVER OIL/ZINC OXIDE OINT 113 GM TUBE TP SCH ×2 (08:56→21:00)
[2023-08-11] MEDS: CHLORHEXIDINE GLUCONATE 15 ML MOUTHWASH MM SCH (08:56)
[2023-08-11] MEDS: PHENOBARBITAL 64.8 MG TABLET GT SCH ×2 (08:56→21:00)
[2023-08-11] MEDS: DIAZEPAM 5 MG TABLET GT SCH ×2 (08:56→21:00)
[2023-08-11] MEDS: REMEDY ESSENTIAL ZINC PASTE 113 GM TP SCH (08:56)
[2023-08-11] MEDS: MULTIVIT, IRON, MIN NO. 8, FA TABLET GT SCH (21:00)
[2023-08-11] MEDS: MAGNESIUM OXIDE 400 MG TABLET GT SCH (21:00)
[2023-08-11 22:00] VITALS: TEMP 98.8
[2023-08-12] MEDS: NUTRISOURCE FIBER 4 GM PACKET GT SCH ×3 (00:39→17:04)
[2023-08-12] MEDS: POLYVINYL ALCOHOL OPHT DROPS 15 ML BOTTLE EACHEYE SCH ×2 (06:49→17:04)
[2023-08-12] MEDS: OMEPRAZOLE 40 MG CAPSULE.DR GT SCH (06:49)
[2023-08-12] MEDS: HYDROGEN PEROXIDE 3% 118 ML BOTTLE TP SCH ×2 (07:31→19:09)
[2023-08-12 07:53] VITALS: TEMP 98.3
[2023-08-12] MEDS: levETIRAcetam 500 MG/5 ML LIQUID UDC GT SCH ×2 (09:18→21:00)
[2023-08-12] MEDS: DOCUSATE SODIUM 100 MG/10 ML LIQUID UDC GT SCH ×2 (09:18→21:00)
[2023-08-12] MEDS: ASPIRIN 81 MG TAB.CHEW GT SCH (09:18)
[2023-08-12] MEDS: REMEDY ESSENTIAL ZINC PASTE 113 GM TP SCH (09:20)
[2023-08-12] MEDS: AMIODARONE 100 MG GT SCH (09:20)
[2023-08-12] MEDS: COD LIVER OIL/ZINC OXIDE OINT 113 GM TUBE TP SCH ×2 (09:20→21:00)
[2023-08-12] MEDS: DIAZEPAM 5 MG TABLET GT SCH ×2 (09:20→21:00)
[2023-08-12] MEDS: PHENOBARBITAL 64.8 MG TABLET GT SCH ×2 (09:20→21:00)
[2023-08-12] MEDS: METOPROLOL TARTRATE 25 MG TABLET GT SCH ×2 (09:20→21:00)
[2023-08-12] MEDS: CHLORHEXIDINE GLUCONATE 15 ML MOUTHWASH MM SCH (09:20)
[2023-08-12] MEDS: VITAL AF 1.2 1,000 ML LIQUID GT PRN (17:27)
[2023-08-12 21:00] VITALS: BP 115/79
[2023-08-12] MEDS: MULTIVIT, IRON, MIN NO. 8, FA TABLET GT SCH (21:00)
[2023-08-12] MEDS: MAGNESIUM OXIDE 400 MG TABLET GT SCH (21:00)
[2023-08-13] MEDS: NUTRISOURCE FIBER 4 GM PACKET GT SCH (01:41)
[2023-08-13] MEDS: OMEPRAZOLE 40 MG CAPSULE.DR GT SCH (05:43)
[2023-08-13] MEDS: POLYVINYL ALCOHOL OPHT DROPS 15 ML BOTTLE EACHEYE SCH (05:43)
== END 2023-08-11 23:59 | disposition still patient (30) | DRG 130 ==
LOC: SA → UNDOADMIN 08-14 07:26 → SA1 03-07 17:55 → SA 03-10 19:45
PROVIDERS: ADMIT Internal Medicine; ATTEND Internal Medicine
PROC: 5A1955Z Respiratory Ventilation, Greater than 96 Consecutive Hours (ICD-10-PCS; principal; 2022-08-12)
DX: J96.11 Chronic respiratory failure with hypoxia (principal); N17.0 Acute kidney failure with tubular necrosis; G93.40 Encephalopathy, unspecified; E43 Unspecified severe protein-calorie malnutrition; D68.59 Other primary thrombophilia; I48.0 Paroxysmal atrial fibrillation; D70.9 Neutropenia, unspecified; B96.5 Pseudomonas (aeruginosa) (mallei) (pseudomallei) as the cause of diseases classified elsewhere; D50.9 Iron deficiency anemia, unspecified; E78.5 Hyperlipidemia, unspecified; E83.42 Hypomagnesemia; E87.6 Hypokalemia; G40.909 Epilepsy, unspecified, not intractable, without status epilepticus; I10 Essential (primary) hypertension; I69.351 Hemiplegia and hemiparesis following cerebral infarction affecting right dominant side; J96.12 Chronic respiratory failure with hypercapnia; J98.11 Atelectasis; N20.0 Calculus of kidney; R13.10 Dysphagia, unspecified; Z74.01 Bed confinement status; Z87.440 Personal history of urinary (tract) infections; Z88.1 Allergy status to other antibiotic agents; Z93.0 Tracheostomy status; Z93.1 Gastrostomy status; Z99.11 Dependence on respirator [ventilator] status
CPT/HCPCS: 36415; 70030-TC; 71045; 80184; 83735; 84100; 85025; 85730; 86580; 87040; 90686; 93005; 94003; 94640; 99082-TC; A4663; A6209; A6213; C1758; J2185; U0003

== ENCOUNTER 2023-08-12 | Inpatient (IN) | payer OTHER ==
[~2023-08-12] VITALS: Ht 170.2 cm; Wt 61.7 kg
[2023-08-13] MEDS ORDERED: ALBUTEROL SULFATE 2.5 MG/3 ML NEBU NEB PRN (08:30)
[2023-08-13] MEDS ORDERED: ACETAMINOPHEN 650 MG/20 ML UDC- SA PATIENTS-PAIN ONLY GT PRN (08:30)
[2023-08-13] MEDS ORDERED: HYDROGEN PEROXIDE 3% 118 ML BOTTLE TP PRN (08:30)
[2023-08-13] MEDS ORDERED: DIAZEPAM 5 MG TABLET GT PRN (08:30)
[2023-08-13] MEDS ORDERED: IPRATROPIUM BROMIDE 0.5 MG/2.5 ML NEBU NEB PRN (08:30)
[2023-08-13] MEDS ORDERED: BISACODYL 10 MG SUPP.RECT RC PRN (08:30)
[2023-08-13] MEDS ORDERED: ACETAMINOPHEN 650 MG/20 ML UDC- SA PATIENTS-FEVER ONLY GT PRN (08:30)
[2023-08-13] MEDS: ASPIRIN 81 MG TAB.CHEW GT SCH (09:41)
[2023-08-13] MEDS: DOCUSATE SODIUM 100 MG/10 ML LIQUID UDC GT SCH (09:41)
[2023-08-13] MEDS: levETIRAcetam 500 MG/5 ML LIQUID UDC GT SCH (09:41)
[2023-08-13] MEDS: PHENOBARBITAL 64.8 MG TABLET GT SCH (09:42)
[2023-08-13] MEDS: NUTRISOURCE FIBER 4 GM PACKET GT SCH (09:42)
[2023-08-13] MEDS: AMIODARONE 100 MG GT SCH (09:42)
[2023-08-13] MEDS: METOPROLOL TARTRATE 25 MG TABLET GT SCH (09:42)
[2023-08-13] MEDS: DIAZEPAM 5 MG TABLET GT SCH (09:43)
[2023-08-13] MEDS: COD LIVER OIL/ZINC OXIDE OINT 113 GM TUBE TP SCH (09:43)
[2023-08-13] MEDS: CHLORHEXIDINE GLUCONATE 15 ML MOUTHWASH MM SCH (09:43)
[2023-08-13] MEDS: REMEDY ESSENTIAL ZINC PASTE 113 GM TP SCH (09:43)
[2023-08-13] MEDS: HYDROGEN PEROXIDE 3% 118 ML BOTTLE TP SCH (09:51)
[2023-08-13 09:52] VITALS: TEMP 98.8
[2023-08-13] MEDS: VITAL AF 1.2 1,000 ML LIQUID GT PRN (17:23)
[2023-08-13] MEDS: POLYVINYL ALCOHOL OPHT DROPS 15 ML BOTTLE EACHEYE SCH (17:23)
[2023-08-13 20:00] VITALS: TEMP 98.7
[2023-08-13] MEDS: MAGNESIUM OXIDE 400 MG TABLET GT SCH (21:09)
[2023-08-13] MEDS: MULTIVIT, IRON, MIN NO. 8, FA TABLET GT SCH (21:10)
[2023-08-14] MEDS: OMEPRAZOLE 40 MG CAPSULE.DR GT SCH (06:01)
[2023-08-14 11:13] VITALS: TEMP 98
[2023-08-14 20:00] VITALS: TEMP 97.8
[2023-08-15 20:00] VITALS: TEMP 97.4
[2023-08-16 08:00] VITALS: TEMP 97.8
[2023-08-16 20:00] VITALS: TEMP 98.7
[2023-08-16] MEDS: NUTRISOURCE FIBER 4 GM PACKET GT SCH (21:49)
[2023-08-17 20:00] VITALS: TEMP 98
[2023-08-18 08:38] VITALS: TEMP 98
[2023-08-18 20:20] VITALS: TEMP 97.6
[2023-08-19 07:29] VITALS: TEMP 98.2
[2023-08-19 08:06] LABS: BASOPHILS % (AUTO) 0.4 % (0.0-2.0); EOSINOPHILS # (AUTO) 0.1 K/uL (0.0-0.7); EOSINOPHILS % (AUTO) 2.4 % (0.0-7.0); HEMATOCRIT 29.5 % (31.2-41.9); HEMOGLOBIN 10.1 g/dL (10.9-14.3); LYMPHOCYTES # (AUTO) 0.8 K/uL (0.8-4.8); LYMPHOCYTES % (AUTO) 16.5 % (20.5-51.5); MEAN CORPUSCULAR HEMOGLOBIN 27.7 uug (24.7-32.8); MEAN CORPUSCULAR HGB CONC 34 g/dL (32.3-35.6); MEAN CORPUSCULAR VOLUME 80.8 fL (75.5-95.3); MONOCYTES # (AUTO) 0.5 K/uL (0.1-1.30); MONOCYTES % (AUTO) 9.8 % (0.0-11.0); NEUTROPHILS # (AUTO) 3.3 K/uL (1.8-8.9); NEUTROPHILS % (AUTO) 70.9 % (38.5-71.5); PLATELET COUNT (AUTO) 194 K/uL (179-408); RED BLOOD CELL COUNT(AUTO) 3.65 MIL/uL (3.63-4.92); WHITE BLOOD COUNT (AUTO) 4.6 K/uL (3.8-11.8)
[2023-08-19 08:23] LABS: DIFFERENTIAL COMMENT 1
[2023-08-19 08:31] LABS: ALANINE AMINOTRANSFERASE 54 U/L (14-59); ALBUMIN 2.7 g/dL (3.4-5.0); ALKALINE PHOSPHATASE 161 U/L (50-136); ASPARTATE AMINOTRANSFERASE 25 U/L (15-37); BILIRUBIN,TOTAL 0.3 mg/dL (0.2-1.0); CALCIUM 9.3 mg/dL (8.5-10.1); CARBON DIOXIDE 30 mmol/L (21-32); CHLORIDE 104 mmol/L (98-107); CREATININE 0.4 mg/dL (0.6-1.3); GLUCOSE 103 mg/dL (74-106); MAGNESIUM 2.1 mg/dL (1.8-2.4); PHENOBARBITAL 37.2 ug/mL (15.0-39.0); PHOSPHOROUS 3.9 mg/dL (2.5-4.9); POTASSIUM 4.1 mmol/L (3.5-5.1); SODIUM SERUM 141 mmol/L (136-145); TOTAL PROTEIN, SERUM 7.7 g/dL (6.4-8.2); UREA NITROGEN, BLOOD 22 mg/dL (7-18)
[2023-08-19 20:05] VITALS: TEMP 98.2
[2023-08-20 09:28] VITALS: TEMP 97.1
[2023-08-20 20:23] VITALS: TEMP 98.3
[2023-08-21 08:00] VITALS: TEMP 98
[2023-08-21] MEDS ORDERED: CALCIUM CHLORIDE 1 GM/10 ML DISP.SYRIN IVP ONE (19:00)
[2023-08-21] MEDS ORDERED: SODIUM BICARBONATE 8.4% 50 MEQ/50 ML DISP.SYRIN IV ONE (19:00)
[2023-08-21] MEDS ORDERED: AMIODARONE HCL 150 MG/3 ML VIAL IV ONE (19:00)
[2023-08-21] MEDS ORDERED: EPINEPHRINE 1:10,000 1 MG/10 ML DISP.SYRIN ONE (19:00)
[2023-08-21] MEDS ORDERED: CHLO473M5 MM (21:55)
[2023-08-21] MEDS ORDERED: ALBU2.5V38 IH (21:55)
[2023-08-21] MEDS ORDERED: IPRA0.2S48 NEB (21:55)
[2023-08-21] MEDS ORDERED: BISA10SU11 RC (21:55)
[2023-08-21] MEDS ORDERED: PHEN20EL8 PO (21:55)
[2023-08-21] MEDS ORDERED: AMIO100T4 GT (21:55)
[2023-08-21] MEDS ORDERED: ZINC57OI3 TP (21:55)
[2023-08-21] MEDS ORDERED: DOCU100C36 GT (21:55)
[2023-08-21] MEDS ORDERED: WHEA144P GT (21:55)
[2023-08-23] MEDS ORDERED: CLON-418 PO (17:52)
[2023-08-27] MEDS ORDERED: RXVAN IV (12:27)
[2023-08-27] MEDS ORDERED: MERO1VIA23 IV (12:27)
[2023-08-27 18:35] VITALS: TEMP 97.6
[2023-08-27] MEDS ORDERED: IPRATROPIUM BROMIDE 0.5 MG/2.5 ML NEBU NEB PRN (19:15)
[2023-08-27] MEDS ORDERED: ALBUTEROL SULFATE 2.5 MG/3 ML NEBU NEB PRN (19:30)
[2023-08-27] MEDS ORDERED: BISACODYL 10 MG SUPP.RECT RC PRN (19:30)
[2023-08-27] MEDS ORDERED: ACETAMINOPHEN 650 MG/20 ML UDC- SA PATIENTS-PAIN ONLY GT PRN (19:30)
[2023-08-27] MEDS ORDERED: ACETAMINOPHEN 650 MG/20 ML UDC- SA PATIENTS-FEVER ONLY GT PRN (19:30)
[2023-08-27 20:21] VITALS: TEMP 98.2
[2023-08-27] MEDS: COD LIVER OIL/ZINC OXIDE OINT 113 GM TUBE TP SCH (21:00)
[2023-08-27] MEDS: VANCOMYCIN IV 1,000 MG in IV DEXTROSE 5% 250 ML IV ONE (21:00)
[2023-08-27] MEDS: PHENOBARBITAL 64.8 MG TABLET GT SCH (21:00)
[2023-08-27] MEDS: DIAZEPAM 5 MG TABLET GT SCH (21:00)
[2023-08-27] MEDS: METOPROLOL TARTRATE 25 MG TABLET GT SCH (21:00)
[2023-08-27] MEDS: MAGNESIUM OXIDE 400 MG TABLET GT SCH (21:00)
[2023-08-27] MEDS: DOCUSATE SODIUM 100 MG/10 ML LIQUID UDC GT SCH (21:58)
[2023-08-27] MEDS: levETIRAcetam 500 MG/5 ML LIQUID UDC GT SCH (21:58)
[2023-08-27 22:52] VITALS: TEMP 98.4
[2023-08-28 04:07] VITALS: TEMP 97.7
[2023-08-28] MEDS: VITAL AF 1.2 1,000 ML LIQUID GT PRN (05:00)
[2023-08-28] MEDS: OMEPRAZOLE 40 MG CAPSULE.DR GT SCH (05:00)
[2023-08-28] MEDS: POLYVINYL ALCOHOL OPHT DROPS 15 ML BOTTLE EACHEYE SCH (05:00)
[2023-08-28] MEDS ORDERED: MEROPENEM 1 G in IV NORMAL SALINE 100 ML IV SCH ×2 (06:00→14:00)
[2023-08-28] MEDS: MEROPENEM 1 G in IV NORMAL SALINE 100 ML IV ONE (06:00)
[2023-08-28 08:00] VITALS: TEMP 97.6; TEMP 98.1
[2023-08-28] MEDS: AMIODARONE 100 MG GT SCH (08:38)
[2023-08-28] MEDS: MULTIVIT, IRON, MIN NO. 8, FA TABLET GT SCH (08:38)
[2023-08-28] MEDS: CHLORHEXIDINE GLUCONATE 15 ML MOUTHWASH MM SCH (08:39)
[2023-08-28] MEDS: REMEDY ESSENTIAL ZINC PASTE 113 GM TP SCH (08:39)
[2023-08-28] MEDS: ASPIRIN 81 MG TAB.CHEW GT SCH (08:40)
[2023-08-28 08:42] VITALS: BP 114/68
[2023-08-28] MEDS ORDERED: IPRATROPIUM BROMIDE 0.5 MG/2.5 ML NEBU NEB PRN (09:30)
[2023-08-28] MEDS ORDERED: HYDROGEN PEROXIDE 3% 118 ML BOTTLE TP PRN (09:30)
[2023-08-28] MEDS: NEOMY/BACITRA/POLYMYXIN B OINT UD PACKET TP SCH (10:14)
[2023-08-28] MEDS ORDERED: NEOM1OIN19 TP (11:54)
[2023-08-28] MEDS ORDERED: VANCOMYCIN IV 1,000 MG in IV DEXTROSE 5% 250 ML IV SCH (13:00)
[2023-08-28] MEDS ORDERED: HYDROGEN PEROXIDE 3% 118 ML BOTTLE TP SCH (21:00)
[2023-08-29] MEDS ORDERED: NUT.237L65 GT (18:32)
== END 2023-09-11 20:21 | disposition short-term general hospital (02) | DRG 130 ==
LOC: SA
PROVIDERS: ADMIT Internal Medicine; ATTEND Internal Medicine
PROC: 5A1955Z Respiratory Ventilation, Greater than 96 Consecutive Hours (ICD-10-PCS; principal; 2023-08-12)
DX: J96.11 Chronic respiratory failure with hypoxia (principal); G93.49 Other encephalopathy; E43 Unspecified severe protein-calorie malnutrition; D68.59 Other primary thrombophilia; L89.156 Pressure-induced deep tissue damage of sacral region; G20.A1 Parkinson's disease without dyskinesia, without mention of fluctuations; D70.9 Neutropenia, unspecified; D50.9 Iron deficiency anemia, unspecified; F15.11 Other stimulant abuse, in remission; I48.0 Paroxysmal atrial fibrillation; I69.351 Hemiplegia and hemiparesis following cerebral infarction affecting right dominant side; Z93.0 Tracheostomy status; G40.909 Epilepsy, unspecified, not intractable, without status epilepticus; E78.5 Hyperlipidemia, unspecified; R74.8 Abnormal levels of other serum enzymes; R63.4 Abnormal weight loss; N20.0 Calculus of kidney; I48.91 Unspecified atrial fibrillation; R13.10 Dysphagia, unspecified; J96.12 Chronic respiratory failure with hypercapnia; Z93.1 Gastrostomy status; Z87.440 Personal history of urinary (tract) infections; Z87.01 Personal history of pneumonia (recurrent); Z86.19 Personal history of other infectious and parasitic diseases; Z68.21 Body mass index [BMI] 21.0-21.9, adult; Z99.11 Dependence on respirator [ventilator] status; Z22.358 Carrier of other Enterobacterales; I10 Essential (primary) hypertension; Z79.899 Other long term (current) drug therapy; Z16.13 Resistance to carbapenem; E87.6 Hypokalemia; E83.42 Hypomagnesemia; J98.11 Atelectasis; I69.298 Other sequelae of other nontraumatic intracranial hemorrhage; Z74.01 Bed confinement status; Z87.442 Personal history of urinary calculi
CPT/HCPCS: 36415; 36600; 80184; 80299; 83735; 84100; 85025; 94002; 94003; A4663; A6209; J0171; J0282; J2185; J3370; J3490; J7050

== ENCOUNTER 2023-08-21 19:33 | Inpatient (IN) | payer OTHER ==
[~2023-08-21] VITALS: Ht 165.1 cm; Wt 61.2 kg
[2023-08-21] MEDS ORDERED: VANCOMYCIN IV 1,000 MG in IV DEXTROSE 5% 250 ML IV ONE (19:45)
[2023-08-21] MEDS ORDERED: IV NORMAL SALINE 1000 ML BAG IV ONE (19:45)
[2023-08-21] MEDS ORDERED: levoFLOXacin 750MG/D5W 150 ML IV ONE ×2 (19:45→20:27)
[2023-08-21 20:20] LABS: BASOPHILS # (AUTO) 0.1 K/UL (0.0-0.2); BASOPHILS % (AUTO) 1.7 % (0.0-2.0); EOSINOPHILS # (AUTO) 0.1 K/uL (0.0-0.7); EOSINOPHILS % (AUTO) 1.3 % (0.0-7.0); HEMATOCRIT 34.8 % (31.2-41.9); HEMOGLOBIN 11.5 g/dL (10.9-14.3); LYMPHOCYTES # (AUTO) 0.5 K/uL (0.8-4.8); MEAN CORPUSCULAR HEMOGLOBIN 27.7 uug (24.7-32.8); MEAN CORPUSCULAR HGB CONC 33 g/dL (32.3-35.6); MEAN CORPUSCULAR VOLUME 83.4 fL (75.5-95.3); MONOCYTES # (AUTO) 0.2 K/uL (0.1-1.30); MONOCYTES % (AUTO) 2.6 % (0.0-11.0); NEUTROPHILS # (AUTO) 7.7 K/uL (1.8-8.9); NEUTROPHILS % (AUTO) 88.4 % (38.5-71.5); PLATELET COUNT (AUTO) 226 K/uL (179-408); RED BLOOD CELL COUNT(AUTO) 4.17 MIL/uL (3.63-4.92); RED CELL DISTRIBUTION WIDTH 17.3 % (12.3-17.7); WHITE BLOOD COUNT (AUTO) 8.7 K/uL (3.8-11.8)
[2023-08-21] MEDS ORDERED: VANCOMYCIN IV 200 ML ONE (20:26)
[2023-08-21 20:32] LABS: DIFFERENTIAL COMMENT 1
[2023-08-21 20:35] LABS: ABG BASE EXCESS -4.3 mmol/L (-2.0-2.0); ABG HCO3 22.2 mmol/L (22.0-26.0); ABG PCO2 46.3 mmHg (35.0-48.0); ABG PH 7.299 (7.340-7.440); ABG PO2 165.8 mmHg (75.0-100.0); ABG SITE LEFT RADIAL; ABG TOTAL HEMOGLOBIN 12.5 G/dL (12.0-16.0); AaDO2 98.9 mmHg; COHb 0.2 % (0.0-3.9); MetHb 0.3 % (0.0-1.5); O2Hb 98.4 % (94.0-97.0); VT, ABG 500 mL
[2023-08-21 20:37] LABS: LACTIC ACID 4.4 mmol/L (0.4-2.0)
[2023-08-21 20:42] LABS: ALANINE AMINOTRANSFERASE 92 U/L (14-59); ALBUMIN 2.8 g/dL (3.4-5.0); ALKALINE PHOSPHATASE 177 U/L (50-136); ASPARTATE AMINOTRANSFERASE 64 U/L (15-37); BILIRUBIN,DIRECT 0.1 mg/dL (0.0-0.2); BILIRUBIN,TOTAL 0.3 mg/dL (0.2-1.0); CALCIUM 9.1 mg/dL (8.5-10.1); CARBON DIOXIDE 26 mmol/L (21-32); CHLORIDE 104 mmol/L (98-107); CREATININE 0.9 mg/dL (0.6-1.3); GLUCOSE 358 mg/dL (74-106); NT-PRO BNP 362 pg/mL (0-125); POTASSIUM 3.7 mmol/L (3.5-5.1); SODIUM SERUM 145 mmol/L (136-145); TOTAL PROTEIN, SERUM 8.1 g/dL (6.4-8.2); UREA NITROGEN, BLOOD 24 mg/dL (7-18)
[2023-08-21] MEDS ORDERED: IPRA0.2S48 NEB (21:55)
[2023-08-21] MEDS ORDERED: PHEN20EL8 PO (21:55)
[2023-08-21] MEDS ORDERED: ZINC57OI3 TP (21:55)
[2023-08-21] MEDS ORDERED: BISA10SU11 RC (21:55)
[2023-08-21] MEDS ORDERED: AMIO100T4 GT (21:55)
[2023-08-21] MEDS ORDERED: WHEA144P GT (21:55)
[2023-08-21] MEDS ORDERED: DOCU100C36 GT (21:55)
[2023-08-21] MEDS ORDERED: ALBU2.5V38 IH (21:55)
[2023-08-21] MEDS ORDERED: CHLO473M5 MM (21:55)
[2023-08-21] MEDS ORDERED: ACETAMINOPHEN 325 MG TABLET PO PRN (22:45)
[2023-08-21] MEDS ORDERED: ONDANSETRON 4 MG/2 ML VIAL IV PRN (22:45)
[2023-08-21] MEDS ORDERED: REMEDY ESSENTIAL ZINC PASTE 113 GM TP PRN (22:45)
[2023-08-21] MEDS ORDERED: MAGNESIUM HYDROXIDE 30 ML LIQUID UDC PO PRN (22:45)
[2023-08-21] MEDS ORDERED: ASPIRIN 325 MG TABLET ONE (23:19)
[2023-08-21] MEDS ORDERED: ASPIRIN 325 MG TABLET GT ONE (23:30)
[2023-08-22] MEDS ORDERED: NOREPINEPHRINE BITARTRATE 4 MG/4 ML VIAL IV ONE (00:22)
[2023-08-22] MEDS: NOREPINEPHRINE BITARTRATE 8 MG in IV NORMAL SALINE 242 ML IV PRN ×2 (00:35→00:53)
[2023-08-22 05:18] LABS: BASOPHILS % (AUTO) 0.1 % (0.0-2.0); EOSINOPHILS % (AUTO) 0.6 % (0.0-7.0); HEMATOCRIT 29.2 % (31.2-41.9); HEMOGLOBIN 9.9 g/dL (10.9-14.3); LYMPHOCYTES # (AUTO) 0.6 K/uL (0.8-4.8); LYMPHOCYTES % (AUTO) 8.7 % (20.5-51.5); MEAN CORPUSCULAR HEMOGLOBIN 27.6 uug (24.7-32.8); MEAN CORPUSCULAR HGB CONC 34 g/dL (32.3-35.6); MEAN CORPUSCULAR VOLUME 81.1 fL (75.5-95.3); MONOCYTES # (AUTO) 0.6 K/uL (0.1-1.30); MONOCYTES % (AUTO) 9.2 % (0.0-11.0); NEUTROPHILS # (AUTO) 5.7 K/uL (1.8-8.9); NEUTROPHILS % (AUTO) 81.4 % (38.5-71.5); PLATELET COUNT (AUTO) 218 K/uL (179-408); RED CELL DISTRIBUTION WIDTH 16.5 % (12.3-17.7)
[2023-08-22 05:23] LABS: DIFFERENTIAL COMMENT 1
[2023-08-22 05:34] LABS: CALCIUM 8.3 mg/dL (8.5-10.1); CREATININE 0.6 mg/dL (0.6-1.3); MAGNESIUM 1.8 mg/dL (1.8-2.4); PHOSPHOROUS 3.4 mg/dL (2.5-4.9); POTASSIUM 3.9 mmol/L (3.5-5.1)
[2023-08-22] MEDS ORDERED: MAGNESIUM HYDROXIDE 30 ML LIQUID UDC GT PRN (05:54)
[2023-08-22 09:34] LABS: *BILIRUBIN,URIN NEGATIVE (NEGATIVE); *BLOOD, URINE 3+ (NEGATIVE); *CLARITY,URINE TURBID (CLEAR); *COLOR,URINE RED (YELLOW); *KETONES,URINE NEGATIVE (NEGATIVE); *UROBILINOGEN,URINE 0.2 E.U./dl (NORMAL); LEUKOCYTE ESTERASE ,URINE 3+ (NEGATIVE); NITRITE, URINE POSITIVE (NEGATIVE); UGLUCOSE NEGATIVE (NEGATIVE)
[2023-08-22 10:23] LABS: *PROTEIN,URINE 3+ (NEGATIVE)
[2023-08-22 10:57] LABS: RBC,URINE 80-100 /HPF (0-3); WBC,URINE 50-80 /HPF (0-3)
[2023-08-22 10:58] LABS: BACTERIA,URINE MODERATE /HPF (NONE SEEN); SQUAMOUS EPITHELIAL CELL,UR FEW /HPF (NONE SEEN)
[2023-08-22] MEDS ORDERED: ACETAMINOPHEN 325 MG TABLET ONE (11:57)
[2023-08-22] MEDS: ACETAMINOPHEN 325 MG TABLET GT PRN (12:27)
[2023-08-22] MEDS ORDERED: ALBUTEROL SULFATE 2.5 MG/3 ML NEBU NEB PRN (13:30)
[2023-08-22] MEDS ORDERED: BISACODYL 10 MG SUPP.RECT RC PRN (13:30)
[2023-08-22] MEDS ORDERED: IPRATROPIUM BROMIDE 0.5 MG/2.5 ML NEBU NEB PRN (13:30)
[2023-08-22] MEDS ORDERED: MEROPENEM 0.5 G in IV NORMAL SALINE 50 ML IV SCH (14:00)
[2023-08-22] MEDS: VANCOMYCIN IV 1,000 MG in IV DEXTROSE 5% 250 ML IV SCH (14:09)
[2023-08-22] MEDS: MEROPENEM 0.5 G in IV NORMAL SALINE 50 ML IV SCH ×2 (14:36→22:04)
[2023-08-22] MEDS ORDERED: PHENOBARBITAL 129.6 MG PO SCH (17:00)
[2023-08-22] MEDS ORDERED: DOCUSATE SODIUM 100 MG CAPSULE PO SCH (17:00)
[2023-08-22] MEDS ORDERED: METOPROLOL TARTRATE 25 MG TABLET GT SCH (21:00)
[2023-08-22] MEDS ORDERED: levoFLOXacin 750MG/D5W 750 MG in PREMIXED 1 EACH IV SCH (21:00)
[2023-08-22] MEDS ORDERED: levETIRAcetam 500 MG/5 ML LIQUID UDC ONE (21:06)
[2023-08-22] MEDS ORDERED: MAGNESIUM OXIDE 400 MG TABLET ONE (21:06)
[2023-08-22] MEDS ORDERED: DOCUSATE SODIUM 100 MG/10 ML LIQUID UDC ONE (21:06)
[2023-08-22] MEDS ORDERED: PHENOBARBITAL 32.4 MG TABLET ONE (21:07)
[2023-08-22] MEDS: DOCUSATE SODIUM 100 MG/10 ML LIQUID UDC GT SCH (21:11)
[2023-08-22] MEDS: levETIRAcetam 500 MG/5 ML LIQUID UDC GT SCH (21:19)
[2023-08-22] MEDS: MAGNESIUM OXIDE 400 MG TABLET GT SCH (21:19)
[2023-08-22] MEDS: PHENOBARBITAL 32.4 MG TABLET GT SCH (21:19)
[2023-08-23] VITALS (16 sets, daily range): BP systolic 101–138; BP diastolic 80–97; TEMP 98.1–99; O2SAT 97–99
[2023-08-23] MEDS ORDERED: EPINEPHRINE 1:10,000 1 MG/10 ML DISP.SYRIN ONE
[2023-08-23 05:33] LABS: BASOPHILS % (AUTO) 0.5 % (0.0-2.0); EOSINOPHILS # (AUTO) 0.1 K/uL (0.0-0.7); EOSINOPHILS % (AUTO) 2.6 % (0.0-7.0); HEMATOCRIT 27.6 % (31.2-41.9); HEMOGLOBIN 9.4 g/dL (10.9-14.3); LYMPHOCYTES # (AUTO) 0.9 K/uL (0.8-4.8); LYMPHOCYTES % (AUTO) 22.3 % (20.5-51.5); MEAN CORPUSCULAR HEMOGLOBIN 27.4 uug (24.7-32.8); MEAN CORPUSCULAR HGB CONC 34 g/dL (32.3-35.6); MEAN CORPUSCULAR VOLUME 80.7 fL (75.5-95.3); MONOCYTES # (AUTO) 0.3 K/uL (0.1-1.30); MONOCYTES % (AUTO) 8.1 % (0.0-11.0); NEUTROPHILS # (AUTO) 2.7 K/uL (1.8-8.9); NEUTROPHILS % (AUTO) 66.5 % (38.5-71.5); PLATELET COUNT (AUTO) 179 K/uL (179-408); RED BLOOD CELL COUNT(AUTO) 3.42 MIL/uL (3.63-4.92); RED CELL DISTRIBUTION WIDTH 16.9 % (12.3-17.7)
[2023-08-23 05:58] LABS: CALCIUM 8.9 mg/dL (8.5-10.1); CREATININE 0.6 mg/dL (0.6-1.3); MAGNESIUM 1.8 mg/dL (1.8-2.4); PHOSPHOROUS 2.9 mg/dL (2.5-4.9); POTASSIUM 3.5 mmol/L (3.5-5.1)
[2023-08-23] MEDS: MEROPENEM 0.5 G in IV NORMAL SALINE 50 ML IV SCH ×3 (05:59→22:04)
[2023-08-23] MEDS ORDERED: Medication Not On Formulary EA (Omeprazole 40 MG) GT SCH (06:00)
[2023-08-23] MEDS: VANCOMYCIN IV 1,000 MG in IV DEXTROSE 5% 250 ML IV SCH ×2 (06:04→22:04)
[2023-08-23] MEDS ORDERED: PANTOPRAZOLE ORAL SUSPENSION 40 MG SUSPDR.PKT ONE (06:06)
[2023-08-23 06:17] LABS: DIFFERENTIAL COMMENT 1
[2023-08-23] MEDS: PANTOPRAZOLE ORAL SUSPENSION 40 MG SUSPDR.PKT GT SCH (06:17)
[2023-08-23] MEDS ORDERED: ACETAMINOPHEN 325 MG TABLET ONE (06:56)
[2023-08-23] MEDS: ACETAMINOPHEN 325 MG TABLET GT PRN (07:03)
[2023-08-23 07:31] LABS: ABG BASE EXCESS -0.6 mmol/L (-2.0-2.0); ABG HCO3 21.6 mmol/L (22.0-26.0); ABG PCO2 27.5 mmHg (35.0-48.0); ABG PH 7.512 (7.340-7.440); ABG PO2 104.1 mmHg (75.0-100.0); ABG TOTAL HEMOGLOBIN 10.4 G/dL (12.0-16.0); AaDO2 98.3 mmHg; COHb 0.3 % (0.0-3.9); MetHb 0.3 % (0.0-1.5); VT, ABG 500 mL
[2023-08-23] MEDS ORDERED: AMIODARONE HCL 100 MG GT SCH (09:00)
[2023-08-23] MEDS ORDERED: DOCUSATE SODIUM 100 MG/10 ML LIQUID UDC ONE ×2 (09:10→21:13)
[2023-08-23] MEDS ORDERED: ASPIRIN 81 MG TAB.CHEW ONE (09:10)
[2023-08-23] MEDS ORDERED: AMIODARONE HCL 200 MG TABLET ONE (09:11)
[2023-08-23] MEDS ORDERED: PHENOBARBITAL 32.4 MG TABLET ONE ×2 (09:11→21:14)
[2023-08-23] MEDS: ASPIRIN 81 MG TAB.CHEW GT SCH (09:12)
[2023-08-23] MEDS: AMIODARONE HCL 200 MG TABLET GT SCH (09:13)
[2023-08-23] MEDS: DOCUSATE SODIUM 100 MG/10 ML LIQUID UDC GT SCH ×2 (09:13→21:17)
[2023-08-23] MEDS: PHENOBARBITAL 32.4 MG TABLET GT SCH ×2 (09:14→21:17)
[2023-08-23] MEDS: CHLORHEXIDINE GLUCONATE 15 ML MOUTHWASH MM SCH (09:16)
[2023-08-23] MEDS ORDERED: levETIRAcetam 500 MG/5 ML LIQUID UDC ONE ×2 (09:27→21:13)
[2023-08-23] MEDS: levETIRAcetam 500 MG/5 ML LIQUID UDC GT SCH ×2 (09:29→21:17)
[2023-08-23] MEDS ORDERED: CLON-418 PO (17:52)
[2023-08-23] MEDS ORDERED: MAGNESIUM OXIDE 400 MG TABLET ONE (21:13)
[2023-08-23] MEDS: MAGNESIUM OXIDE 400 MG TABLET GT SCH (21:17)
[2023-08-24] VITALS (11 sets, daily range): BP systolic 100–125; BP diastolic 70–86; TEMP 97.8–99.9; O2SAT 96–99
[2023-08-24 04:30] LABS: BASOPHILS % (AUTO) 0.4 % (0.0-2.0); EOSINOPHILS # (AUTO) 0.2 K/uL (0.0-0.7); EOSINOPHILS % (AUTO) 6.1 % (0.0-7.0); HEMATOCRIT 26.9 % (31.2-41.9); HEMOGLOBIN 9.2 g/dL (10.9-14.3); LYMPHOCYTES # (AUTO) 0.8 K/uL (0.8-4.8); LYMPHOCYTES % (AUTO) 20.5 % (20.5-51.5); MEAN CORPUSCULAR HEMOGLOBIN 27.5 uug (24.7-32.8); MEAN CORPUSCULAR HGB CONC 34 g/dL (32.3-35.6); MEAN CORPUSCULAR VOLUME 80.7 fL (75.5-95.3); MONOCYTES # (AUTO) 0.3 K/uL (0.1-1.30); MONOCYTES % (AUTO) 9.1 % (0.0-11.0); NEUTROPHILS # (AUTO) 2.5 K/uL (1.8-8.9); NEUTROPHILS % (AUTO) 63.9 % (38.5-71.5); PLATELET COUNT (AUTO) 172 K/uL (179-408); RED BLOOD CELL COUNT(AUTO) 3.33 MIL/uL (3.63-4.92); RED CELL DISTRIBUTION WIDTH 16.5 % (12.3-17.7); WHITE BLOOD COUNT (AUTO) 3.9 K/uL (3.8-11.8)
[2023-08-24 04:43] LABS: DIFFERENTIAL COMMENT 1
[2023-08-24 04:47] LABS: CALCIUM 8.8 mg/dL (8.5-10.1); CREATININE 0.7 mg/dL (0.6-1.3); MAGNESIUM 1.6 mg/dL (1.8-2.4); PHOSPHOROUS 3.8 mg/dL (2.5-4.9); POTASSIUM 3.4 mmol/L (3.5-5.1)
[2023-08-24] MEDS: MEROPENEM 0.5 G in IV NORMAL SALINE 50 ML IV SCH ×3 (06:05→22:05)
[2023-08-24] MEDS ORDERED: PANTOPRAZOLE ORAL SUSPENSION 40 MG SUSPDR.PKT ONE (06:05)
[2023-08-24] MEDS: PANTOPRAZOLE ORAL SUSPENSION 40 MG SUSPDR.PKT GT SCH (06:09)
[2023-08-24 08:08] LABS: ABG BASE EXCESS -1.2 mmol/L (-2.0-2.0); ABG HCO3 21.1 mmol/L (22.0-26.0); ABG PCO2 27.3 mmHg (35.0-48.0); ABG PH 7.505 (7.340-7.440); ABG PO2 171.4 mmHg (75.0-100.0); ABG SITE LEFT RADIAL; ABG TOTAL HEMOGLOBIN 10.2 G/dL (12.0-16.0); AaDO2 99.3 mmHg; COHb 0.5 % (0.0-3.9); MetHb 0.1 % (0.0-1.5); O2Hb 98.1 % (94.0-97.0); VT, ABG 500 mL
[2023-08-24] MEDS ORDERED: POTASSIUM CHLORIDE 20 MEQ POWDER PACKET GT ONE (09:15)
[2023-08-24] MEDS: ASPIRIN 81 MG TAB.CHEW GT SCH (09:19)
[2023-08-24] MEDS: AMIODARONE HCL 200 MG TABLET GT SCH (09:20)
[2023-08-24] MEDS: PHENOBARBITAL 32.4 MG TABLET GT SCH ×2 (09:20→21:53)
[2023-08-24] MEDS: DOCUSATE SODIUM 100 MG/10 ML LIQUID UDC GT SCH ×2 (09:21→22:05)
[2023-08-24] MEDS: levETIRAcetam 500 MG/5 ML LIQUID UDC GT SCH ×2 (09:21→22:04)
[2023-08-24] MEDS: CHLORHEXIDINE GLUCONATE 15 ML MOUTHWASH MM SCH (09:22)
[2023-08-24] MEDS: MAGNESIUM SULFATE/D5W 100 ML IV SCH ×2 (10:17→11:37)
[2023-08-24] MEDS: VITAL AF 1.2 1,000 ML LIQUID GT PRN (12:44)
[2023-08-24] MEDS: VANCOMYCIN IV 1,000 MG in IV DEXTROSE 5% 250 ML IV SCH (15:03)
[2023-08-24] MEDS: MAGNESIUM OXIDE 400 MG TABLET GT SCH (22:04)
[2023-08-25 00:18] VITALS: BP 97/57; TEMP 98.5; O2SAT 100
[2023-08-25 04:17] VITALS: BP 98/61; TEMP 98.3; O2SAT 98
[2023-08-25] MEDS: VANCOMYCIN IV 1,000 MG in IV DEXTROSE 5% 250 ML IV SCH ×2 (05:27→21:02)
[2023-08-25] MEDS: MEROPENEM 0.5 G in IV NORMAL SALINE 50 ML IV SCH ×3 (05:34→21:02)
[2023-08-25] MEDS: PANTOPRAZOLE ORAL SUSPENSION 40 MG SUSPDR.PKT GT SCH (05:39)
[2023-08-25 06:42] LABS: BASOPHILS % (AUTO) 0.7 % (0.0-2.0); EOSINOPHILS # (AUTO) 0.2 K/uL (0.0-0.7); EOSINOPHILS % (AUTO) 6.1 % (0.0-7.0); HEMATOCRIT 25.9 % (31.2-41.9); LYMPHOCYTES # (AUTO) 0.6 K/uL (0.8-4.8); MEAN CORPUSCULAR HEMOGLOBIN 27.8 uug (24.7-32.8); MEAN CORPUSCULAR HGB CONC 35 g/dL (32.3-35.6); MEAN CORPUSCULAR VOLUME 80.4 fL (75.5-95.3); MONOCYTES # (AUTO) 0.3 K/uL (0.1-1.30); MONOCYTES % (AUTO) 11.5 % (0.0-11.0); NEUTROPHILS # (AUTO) 1.7 K/uL (1.8-8.9); NEUTROPHILS % (AUTO) 59.7 % (38.5-71.5); PLATELET COUNT (AUTO) 153 K/uL (179-408); RED BLOOD CELL COUNT(AUTO) 3.22 MIL/uL (3.63-4.92); RED CELL DISTRIBUTION WIDTH 16.2 % (12.3-17.7); WHITE BLOOD COUNT (AUTO) 2.9 K/uL (3.8-11.8)
[2023-08-25 07:00] LABS: CALCIUM 8.5 mg/dL (8.5-10.1); CREATININE 0.5 mg/dL (0.6-1.3); PHOSPHOROUS 3.2 mg/dL (2.5-4.9); POTASSIUM 3.8 mmol/L (3.5-5.1)
[2023-08-25 07:04] LABS: DIFFERENTIAL COMMENT 1
[2023-08-25] MEDS: AMIODARONE HCL 200 MG TABLET GT SCH (08:22)
[2023-08-25] MEDS: ASPIRIN 81 MG TAB.CHEW GT SCH (08:22)
[2023-08-25] MEDS: levETIRAcetam 500 MG/5 ML LIQUID UDC GT SCH ×2 (08:22→20:17)
[2023-08-25] MEDS: DOCUSATE SODIUM 100 MG/10 ML LIQUID UDC GT SCH ×2 (08:23→20:16)
[2023-08-25] MEDS: CHLORHEXIDINE GLUCONATE 15 ML MOUTHWASH MM SCH (08:23)
[2023-08-25] MEDS: PHENOBARBITAL 32.4 MG TABLET GT SCH ×2 (10:00→20:19)
[2023-08-25 11:46] VITALS: BP 92/62; TEMP 99.2; O2SAT 99
[2023-08-25] MEDS: VITAL AF 1.2 1,000 ML LIQUID GT PRN (15:36)
[2023-08-25 16:00] VITALS: BP 94/61; TEMP 97.6; O2SAT 98
[2023-08-25 19:35] VITALS: BP 102/75; TEMP 97.3; O2SAT 98
[2023-08-25] MEDS: MAGNESIUM OXIDE 400 MG TABLET GT SCH (20:18)
[2023-08-26] MEDS: PANTOPRAZOLE ORAL SUSPENSION 40 MG SUSPDR.PKT GT SCH (05:14)
[2023-08-26] MEDS: MEROPENEM 0.5 G in IV NORMAL SALINE 50 ML IV SCH (05:15)
[2023-08-26 07:05] LABS: BASOPHILS % (AUTO) 0.7 % (0.0-2.0); EOSINOPHILS # (AUTO) 0.1 K/uL (0.0-0.7); EOSINOPHILS % (AUTO) 3.2 % (0.0-7.0); HEMATOCRIT 26.7 % (31.2-41.9); HEMOGLOBIN 9.1 g/dL (10.9-14.3); LYMPHOCYTES # (AUTO) 0.3 K/uL (0.8-4.8); LYMPHOCYTES % (AUTO) 12.5 % (20.5-51.5); MEAN CORPUSCULAR HEMOGLOBIN 27.7 uug (24.7-32.8); MEAN CORPUSCULAR HGB CONC 34 g/dL (32.3-35.6); MEAN CORPUSCULAR VOLUME 80.9 fL (75.5-95.3); MONOCYTES # (AUTO) 0.2 K/uL (0.1-1.30); MONOCYTES % (AUTO) 9.6 % (0.0-11.0); NEUTROPHILS # (AUTO) 1.6 K/uL (1.8-8.9); PLATELET COUNT (AUTO) 146 K/uL (179-408); RED BLOOD CELL COUNT(AUTO) 3.29 MIL/uL (3.63-4.92); RED CELL DISTRIBUTION WIDTH 16.8 % (12.3-17.7); WHITE BLOOD COUNT (AUTO) 2.1 K/uL (3.8-11.8)
[2023-08-26 07:32] VITALS: BP 115/90; TEMP 99.7; O2SAT 99
[2023-08-26 07:32] LABS: DIFFERENTIAL COMMENT 1
[2023-08-26 07:39] LABS: ALBUMIN 2.5 g/dL (3.4-5.0); BILIRUBIN,TOTAL 0.4 mg/dL (0.2-1.0); CALCIUM 8.8 mg/dL (8.5-10.1); CREATININE 0.5 mg/dL (0.6-1.3); MAGNESIUM 1.8 mg/dL (1.8-2.4); POTASSIUM 4.2 mmol/L (3.5-5.1); TOTAL PROTEIN, SERUM 6.9 g/dL (6.4-8.2)
[2023-08-26 07:50] LABS: BILIRUBIN,DIRECT 0.1 mg/dL (0.0-0.2)
[2023-08-26] MEDS: ASPIRIN 81 MG TAB.CHEW GT SCH (09:13)
[2023-08-26] MEDS: AMIODARONE HCL 200 MG TABLET GT SCH (09:13)
[2023-08-26] MEDS: levETIRAcetam 500 MG/5 ML LIQUID UDC GT SCH ×2 (09:13→20:28)
[2023-08-26] MEDS: PHENOBARBITAL 32.4 MG TABLET GT SCH ×2 (09:13→20:28)
[2023-08-26] MEDS: DOCUSATE SODIUM 100 MG/10 ML LIQUID UDC GT SCH ×2 (09:14→20:28)
[2023-08-26] MEDS: CHLORHEXIDINE GLUCONATE 15 ML MOUTHWASH MM SCH (09:14)
[2023-08-26 09:40] LABS: C-REACTIVE PROTEIN 4.23 mg/dL (0.00-0.30)
[2023-08-26 11:33] VITALS: BP 127/83; TEMP 100.8; O2SAT 99
[2023-08-26] MEDS: ACETAMINOPHEN 325 MG TABLET GT PRN (12:06)
[2023-08-26 12:43] LABS: ANISOCYTOSIS 1+; EOSINOPHILS % (MANUAL) 2 % (0-8); LYMPHOCYTES % (MANUAL) 12 % (20-40); MONOCYTES % (MANUAL) 2 % (2-10); NEUTROPHILS % (MANUAL) 84 % (42-75); PLATELET ESTIMATE SLIGHT DECREASED
[2023-08-26] MEDS: VANCOMYCIN IV 1,000 MG in IV DEXTROSE 5% 250 ML IV SCH (13:21)
[2023-08-26] MEDS: MEROPENEM 1 G in IV NORMAL SALINE 100 ML IV SCH ×2 (14:29→22:35)
[2023-08-26 15:48] VITALS: BP 118/78; TEMP 99.6; O2SAT 99
[2023-08-26 20:00] VITALS: BP 120/83; TEMP 99.7; O2SAT 98
[2023-08-26] MEDS: MAGNESIUM OXIDE 400 MG TABLET GT SCH (20:28)
[2023-08-26] MEDS: VITAL AF 1.2 1,000 ML LIQUID GT PRN (22:48)
[2023-08-27] VITALS: BP 112/73; TEMP 99.1; O2SAT 98
[2023-08-27 04:00] VITALS: BP 121/83; TEMP 99.5; O2SAT 98
[2023-08-27] MEDS: VANCOMYCIN IV 1,000 MG in IV DEXTROSE 5% 250 ML IV SCH (05:13)
[2023-08-27] MEDS: PANTOPRAZOLE ORAL SUSPENSION 40 MG SUSPDR.PKT GT SCH (05:27)
[2023-08-27] MEDS: MEROPENEM 1 G in IV NORMAL SALINE 100 ML IV SCH ×2 (07:24→14:23)
[2023-08-27 07:38] LABS: BASOPHILS % (AUTO) 0.6 % (0.0-2.0); EOSINOPHILS % (AUTO) 1.4 % (0.0-7.0); HEMOGLOBIN 8.5 g/dL (10.9-14.3); LYMPHOCYTES # (AUTO) 0.6 K/uL (0.8-4.8); LYMPHOCYTES % (AUTO) 20.9 % (20.5-51.5); MEAN CORPUSCULAR HEMOGLOBIN 27.4 uug (24.7-32.8); MEAN CORPUSCULAR HGB CONC 34 g/dL (32.3-35.6); MEAN CORPUSCULAR VOLUME 80.6 fL (75.5-95.3); MONOCYTES # (AUTO) 0.3 K/uL (0.1-1.30); MONOCYTES % (AUTO) 10.4 % (0.0-11.0); NEUTROPHILS # (AUTO) 1.9 K/uL (1.8-8.9); NEUTROPHILS % (AUTO) 66.7 % (38.5-71.5); PLATELET COUNT (AUTO) 154 K/uL (179-408); RED CELL DISTRIBUTION WIDTH 17.2 % (12.3-17.7); WHITE BLOOD COUNT (AUTO) 2.8 K/uL (3.8-11.8)
[2023-08-27 07:52] LABS: DIFFERENTIAL COMMENT 1
[2023-08-27 07:58] LABS: CALCIUM 8.4 mg/dL (8.5-10.1); CREATININE 0.5 mg/dL (0.6-1.3); MAGNESIUM 1.7 mg/dL (1.8-2.4); PHOSPHOROUS 2.7 mg/dL (2.5-4.9); POTASSIUM 3.7 mmol/L (3.5-5.1)
[2023-08-27] MEDS: ASPIRIN 81 MG TAB.CHEW GT SCH (08:37)
[2023-08-27] MEDS: PHENOBARBITAL 32.4 MG TABLET GT SCH (08:37)
[2023-08-27] MEDS: CHLORHEXIDINE GLUCONATE 15 ML MOUTHWASH MM SCH (08:38)
[2023-08-27] MEDS: DOCUSATE SODIUM 100 MG/10 ML LIQUID UDC GT SCH (08:38)
[2023-08-27] MEDS: levETIRAcetam 500 MG/5 ML LIQUID UDC GT SCH (08:38)
[2023-08-27] MEDS: AMIODARONE HCL 200 MG TABLET GT SCH (08:38)
[2023-08-27 08:43] VITALS: BP 98/67; TEMP 97.8; O2SAT 99
[2023-08-27 11:54] VITALS: BP 96/57; TEMP 97.5; O2SAT 99
[2023-08-27] MEDS ORDERED: MAGNESIUM OXIDE 400 MG TABLET GT ONE (12:00)
[2023-08-27] MEDS ORDERED: RXVAN IV (12:27)
[2023-08-27] MEDS ORDERED: MERO1VIA23 IV (12:27)
[2023-08-27 15:42] VITALS: BP 108/73; TEMP 98.2; O2SAT 99
[2023-08-28] MEDS ORDERED: NEOM1OIN19 TP (11:54)
== END 2023-08-27 17:30 | DRG 720 ==
LOC: ER 19:39 → TRANSITION 22:00 → DOU3 08-24 07:33 → TELE-TD3 08-24 07:50
PROVIDERS: ADMIT Nurse Practitioner Acute Care; ATTEND Internal Medicine
PROC: 06HY33Z Insertion of Infusion Device into Lower Vein, Percutaneous Approach (ICD-10-PCS; principal; 2023-08-21)
PROC: 5A1955Z Respiratory Ventilation, Greater than 96 Consecutive Hours (ICD-10-PCS; principal; 2023-08-21)
DX: A41.9 Sepsis, unspecified organism (principal); J96.21 Acute and chronic respiratory failure with hypoxia; I46.9 Cardiac arrest, cause unspecified; R65.21 Severe sepsis with septic shock; G93.41 Metabolic encephalopathy; I48.0 Paroxysmal atrial fibrillation; G40.909 Epilepsy, unspecified, not intractable, without status epilepticus; N39.0 Urinary tract infection, site not specified; D68.59 Other primary thrombophilia; I21.A1 Myocardial infarction type 2; Z93.0 Tracheostomy status; Z99.11 Dependence on respirator [ventilator] status; Z22.39 Carrier of other specified bacterial diseases; G20.A1 Parkinson's disease without dyskinesia, without mention of fluctuations; Z93.1 Gastrostomy status; Z79.82 Long term (current) use of aspirin; Z79.899 Other long term (current) drug therapy; J96.22 Acute and chronic respiratory failure with hypercapnia; B96.4 Proteus (mirabilis) (morganii) as the cause of diseases classified elsewhere; R79.89 Other specified abnormal findings of blood chemistry; I69.291 Dysphagia following other nontraumatic intracranial hemorrhage; I69.298 Other sequelae of other nontraumatic intracranial hemorrhage; R13.10 Dysphagia, unspecified; F09 Unspecified mental disorder due to known physiological condition; N20.0 Calculus of kidney; D72.819 Decreased white blood cell count, unspecified; E78.5 Hyperlipidemia, unspecified; I10 Essential (primary) hypertension; Z87.440 Personal history of urinary (tract) infections; Z88.1 Allergy status to other antibiotic agents; D64.9 Anemia, unspecified; D69.6 Thrombocytopenia, unspecified; Z86.19 Personal history of other infectious and parasitic diseases
CPT/HCPCS: 36415; 36600; 70030-TC; 71045; 82803; 83605; 83735; 84100; 84484; 85025; 85730; 86140; 87040; 87077; 93005; 93307; 94003; 99082-TC; A4606; A4663; G0378; J0171; J1956; J2185; J3370; J3475; J3490; J7040; J7050

== ENCOUNTER 2023-08-28 11:04 | Inpatient (IN) | payer OTHER ==
[~2023-08-28] VITALS: Ht 167.6 cm; Wt 71.2 kg
[~2023-08-28 11:04] MED LIST changes: +ALBU2.5V38 IH; -AMIN30LI2 GT; +AMIO100T4 GT; -AMIO200T5 GT; -ASCO500C18 GT; +BISA10SU11 RC; +CHLO473M5 MM; +DOCU100C36 GT; +IPRA0.2S48 NEB; +MERO1VIA23 IV; -MERO500V21 IV; -METR-147 PO; -NUT.237L65 GT; +PHEN20EL8 PO; -PHEN32.46 GT; -PROT30LI GT; +RXVAN IV; -Sulfameth/Trimeth 800/160 Mg PO; -TOBR40VI2 NEB; -TOBR40VI2 XX; -VANC500V PO; +WHEA144P GT
[2023-08-28] MEDS ORDERED: NEOM1OIN19 TP (11:54)
[2023-08-28] MEDS ORDERED: ACETAMINOPHEN 325 MG TABLET PO PRN (12:00)
[2023-08-28] MEDS ORDERED: REMEDY ESSENTIAL ZINC PASTE 113 GM TP PRN (12:00)
[2023-08-28] MEDS ORDERED: ONDANSETRON 4 MG/2 ML VIAL IV PRN (12:00)
[2023-08-28 12:35] LABS: CALCIUM 9.9 mg/dL (8.5-10.1); CREATININE 0.7 mg/dL (0.6-1.3); MAGNESIUM 2.1 mg/dL (1.8-2.4); PHOSPHOROUS 5.6 mg/dL (2.5-4.9); POTASSIUM 3.7 mmol/L (3.5-5.1)
[2023-08-28 13:48] LABS: BASOPHILS % (AUTO) 0.4 % (0.0-2.0); DIFFERENTIAL COMMENT 0; EOSINOPHILS # (AUTO) 0.1 K/uL (0.0-0.7); HEMATOCRIT 40.2 % (31.2-41.9); HEMOGLOBIN 13.3 g/dL (10.9-14.3); LYMPHOCYTES # (AUTO) 1.2 K/uL (0.8-4.8); LYMPHOCYTES % (AUTO) 23.4 % (20.5-51.5); MEAN CORPUSCULAR HEMOGLOBIN 27.4 uug (24.7-32.8); MEAN CORPUSCULAR HGB CONC 33 g/dL (32.3-35.6); MEAN CORPUSCULAR VOLUME 82.9 fL (75.5-95.3); MONOCYTES # (AUTO) 0.1 K/uL (0.1-1.30); MONOCYTES % (AUTO) 2.7 % (0.0-11.0); NEUTROPHILS # (AUTO) 3.6 K/uL (1.8-8.9); NEUTROPHILS % (AUTO) 71.5 % (38.5-71.5); PLATELET COUNT (AUTO) 221 K/uL (179-408); RED BLOOD CELL COUNT(AUTO) 4.86 MIL/uL (3.63-4.92); RED CELL DISTRIBUTION WIDTH 17.4 % (12.3-17.7)
[2023-08-28 14:44] LABS: *BLOOD, URINE 3+ (NEGATIVE); *CLARITY,URINE CLEAR (CLEAR); *COLOR,URINE YELLOW (YELLOW); *KETONES,URINE NEGATIVE (NEGATIVE); *PROTEIN,URINE 2+ (NEGATIVE); *UROBILINOGEN,URINE 0.2 E.U./dl (NORMAL); LEUKOCYTE ESTERASE ,URINE 2+ (NEGATIVE); NITRITE, URINE NEGATIVE (NEGATIVE); UGLUCOSE NEGATIVE (NEGATIVE)
[2023-08-28 14:50] LABS: *BILIRUBIN,URIN 1+ (NEGATIVE)
[2023-08-28 15:27] LABS: RBC,URINE 50-80 /HPF (0-3)
[2023-08-28 15:28] LABS: BACTERIA,URINE MODERATE /HPF (NONE SEEN); SQUAMOUS EPITHELIAL CELL,UR MODERATE /HPF (NONE SEEN); WBC,URINE 20-50 /HPF (0-3)
[2023-08-28 15:29] LABS: URINE AMORPHOUS URATE MODERATE /HPF
[2023-08-28 19:00] VITALS: BP 89/74; O2SAT 100
[2023-08-28 20:00] VITALS: BP 91/66; TEMP 101; O2SAT 100
[2023-08-28 21:00] VITALS: BP 87/70; O2SAT 100
[2023-08-28] MEDS ORDERED: ACETAMINOPHEN 650 MG/20.3 ML LIQUID UDC ONE (21:21)
[2023-08-28] MEDS: ACETAMINOPHEN 650 MG/20.3 ML LIQUID UDC GT PRN (21:28)
[2023-08-28 22:00] VITALS: BP 82/64; O2SAT 100
[2023-08-28 23:00] VITALS: BP 78/59; O2SAT 100
[2023-08-28] MEDS ORDERED: NOREPINEPHRINE BITARTRATE 32 MG in IV NORMAL SALINE 218 ML IV PRN (23:05)
[2023-08-28] MEDS ORDERED: NOREPINEPHRINE BITARTRATE 4 MG/4 ML VIAL IV ONE (23:12)
[2023-08-29] VITALS (80 sets, daily range): BP systolic 77–203; BP diastolic 51–108; TEMP 98–100.8; O2SAT 99–100
[2023-08-29] MEDS ORDERED: POLYVINYL ALCOHOL OPHT DROPS 15 ML BOTTLE EACHEYE PRN
[2023-08-29] MEDS ORDERED: IPRATROPIUM BROMIDE 0.5 MG/2.5 ML NEBU NEB PRN
[2023-08-29] MEDS ORDERED: MEROPENEM 1 G VIAL IV SCH
[2023-08-29] MEDS ORDERED: ALBUTEROL SULFATE 2.5 MG/3 ML NEBU IH PRN
[2023-08-29] MEDS ORDERED: levETIRAcetam 500 MG/5 ML LIQUID UDC ONE ×2 (00:12→09:26)
[2023-08-29] MEDS ORDERED: NOREPINEPHRINE BITARTRATE 32 MG in IV NORMAL SALINE 218 ML IV PRN (00:15)
[2023-08-29] MEDS: levETIRAcetam 500 MG/5 ML LIQUID UDC GT SCH ×3 (00:19→21:02)
[2023-08-29] MEDS ORDERED: MEROPENEM 1 G in IV NORMAL SALINE 100 ML IV SCH (00:32)
[2023-08-29] MEDS ORDERED: PHENOBARBITAL 32.4 MG TABLET ONE ×2 (00:50→09:25)
[2023-08-29] MEDS: PHENOBARBITAL 32.4 MG TABLET PO SCH ×3 (00:53→21:02)
[2023-08-29] MEDS ORDERED: VANCOMYCIN IV 1,000 MG in IV DEXTROSE 5% 250 ML IV SCH ×2 (02:00→20:00)
[2023-08-29] MEDS ORDERED: VANCOMYCIN IV 200 ML ONE (03:38)
[2023-08-29] MEDS ORDERED: ACETAMINOPHEN 650 MG/20.3 ML LIQUID UDC ONE (06:20)
[2023-08-29] MEDS ORDERED: MEROPENEM 1GM/NS 100ML IVPB **ER PYXIS ONLY IV ONE (06:20)
[2023-08-29] MEDS: ACETAMINOPHEN 650 MG/20.3 ML LIQUID UDC GT PRN (06:21)
[2023-08-29] MEDS: MEROPENEM 1 G in IV NORMAL SALINE 100 ML IV SCH (08:38)
[2023-08-29 08:39] LABS: BASOPHILS % (AUTO) 0.3 % (0.0-2.0); EOSINOPHILS % (AUTO) 0.3 % (0.0-7.0); HEMATOCRIT 30.9 % (31.2-41.9); HEMOGLOBIN 10.4 g/dL (10.9-14.3); LYMPHOCYTES # (AUTO) 1.7 K/uL (0.8-4.8); LYMPHOCYTES % (AUTO) 24.8 % (20.5-51.5); MEAN CORPUSCULAR HEMOGLOBIN 27.3 uug (24.7-32.8); MEAN CORPUSCULAR HGB CONC 34 g/dL (32.3-35.6); MEAN CORPUSCULAR VOLUME 81.1 fL (75.5-95.3); MONOCYTES # (AUTO) 0.9 K/uL (0.1-1.30); MONOCYTES % (AUTO) 13.7 % (0.0-11.0); NEUTROPHILS # (AUTO) 4.2 K/uL (1.8-8.9); NEUTROPHILS % (AUTO) 60.9 % (38.5-71.5); PLATELET COUNT (AUTO) 218 K/uL (179-408); RED BLOOD CELL COUNT(AUTO) 3.81 MIL/uL (3.63-4.92); WHITE BLOOD COUNT (AUTO) 6.9 K/uL (3.8-11.8)
[2023-08-29 08:58] LABS: CALCIUM 8.7 mg/dL (8.5-10.1); CREATININE 0.7 mg/dL (0.6-1.3); MAGNESIUM 1.9 mg/dL (1.8-2.4); PHOSPHOROUS 2.7 mg/dL (2.5-4.9)
[2023-08-29] MEDS ORDERED: AMIODARONE HCL 200 MG TABLET PO SCH ×2 (09:00)
[2023-08-29] MEDS ORDERED: PANTOPRAZOLE ORAL SUSPENSION 40 MG SUSPDR.PKT GT SCH (09:00)
[2023-08-29 09:03] LABS: DIFFERENTIAL COMMENT 1
[2023-08-29] MEDS ORDERED: PANTOPRAZOLE ORAL SUSPENSION 40 MG SUSPDR.PKT ONE (09:35)
[2023-08-29] MEDS: MULTIVITAMINS,THERAPEUTIC TABLET GT SCH (09:38)
[2023-08-29] MEDS: CHLORHEXIDINE GLUCONATE 15 ML MOUTHWASH MM SCH (09:40)
[2023-08-29] MEDS: DOCUSATE SODIUM 100 MG CAPSULE PO SCH ×2 (10:45→17:38)
[2023-08-29] MEDS ORDERED: ASPIRIN 325 MG TABLET ONE (10:48)
[2023-08-29] MEDS ORDERED: AMIODARONE HCL 200 MG TABLET ONE (10:49)
[2023-08-29] MEDS: ASPIRIN 81 MG TAB.CHEW GT SCH (10:52)
[2023-08-29] MEDS ORDERED: POTASSIUM CHLORIDE 300 ML ONE (12:50)
[2023-08-29 13:07] LABS: BILIRUBIN,DIRECT 2.4 mg/dL (0.0-0.2); BILIRUBIN,TOTAL 2.8 mg/dL (0.2-1.0)
[2023-08-29] MEDS: POTASSIUM CHLORIDE 50 ML IV SCH ×4 (13:39→23:58)
[2023-08-29] MEDS ORDERED: DOCUSATE SODIUM 100 MG/10 ML LIQUID UDC ONE (17:37)
[2023-08-29] MEDS ORDERED: NUT.237L65 GT (18:32)
[2023-08-29] MEDS: MAGNESIUM OXIDE 400 MG TABLET GT SCH (21:02)
[2023-08-29] MEDS: VANCOMYCIN IV 1,000 MG in IV DEXTROSE 5% 250 ML IV SCH (22:01)
[2023-08-30] VITALS (31 sets, daily range): BP systolic 77–168; BP diastolic 58–92; TEMP 98.1–102.8; O2SAT 98–100
[2023-08-30] MEDS ORDERED: MEROPENEM 1 G VIAL IV ONE
[2023-08-30] MEDS: MEROPENEM 1 G in IV NORMAL SALINE 100 ML IV SCH ×5 (01:19→22:32)
[2023-08-30] MEDS: VITAL AF 1.2 1,000 ML LIQUID GT PRN (04:03)
[2023-08-30] MEDS: POTASSIUM CHLORIDE 50 ML IV SCH (04:39)
[2023-08-30 05:31] LABS: BASOPHILS % (AUTO) 0.2 % (0.0-2.0); EOSINOPHILS % (AUTO) 0.3 % (0.0-7.0); HEMATOCRIT 31.5 % (31.2-41.9); HEMOGLOBIN 10.5 g/dL (10.9-14.3); LYMPHOCYTES % (AUTO) 13.2 % (20.5-51.5); MEAN CORPUSCULAR HEMOGLOBIN 27.1 uug (24.7-32.8); MEAN CORPUSCULAR HGB CONC 33 g/dL (32.3-35.6); MEAN CORPUSCULAR VOLUME 81.8 fL (75.5-95.3); MONOCYTES # (AUTO) 0.7 K/uL (0.1-1.30); MONOCYTES % (AUTO) 8.7 % (0.0-11.0); NEUTROPHILS # (AUTO) 5.9 K/uL (1.8-8.9); NEUTROPHILS % (AUTO) 77.6 % (38.5-71.5); PLATELET COUNT (AUTO) 223 K/uL (179-408); RED BLOOD CELL COUNT(AUTO) 3.85 MIL/uL (3.63-4.92); RED CELL DISTRIBUTION WIDTH 17.6 % (12.3-17.7); WHITE BLOOD COUNT (AUTO) 7.6 K/uL (3.8-11.8)
[2023-08-30 05:39] LABS: DIFFERENTIAL COMMENT 1
[2023-08-30 06:12] LABS: ALBUMIN 2.2 g/dL (3.4-5.0); BILIRUBIN,TOTAL 2.7 mg/dL (0.2-1.0); CALCIUM 8.7 mg/dL (8.5-10.1); CREATININE 0.7 mg/dL (0.6-1.3); MAGNESIUM 1.9 mg/dL (1.8-2.4); PHOSPHOROUS 2.8 mg/dL (2.5-4.9); TOTAL PROTEIN, SERUM 6.6 g/dL (6.4-8.2)
[2023-08-30] MEDS ORDERED: PANTOPRAZOLE ORAL SUSPENSION 40 MG SUSPDR.PKT ONE (07:10)
[2023-08-30] MEDS: PANTOPRAZOLE ORAL SUSPENSION 40 MG SUSPDR.PKT GT SCH (07:22)
[2023-08-30] MEDS ORDERED: PHENOBARBITAL 32.4 MG TABLET ONE (09:16)
[2023-08-30] MEDS ORDERED: DOCUSATE SODIUM 100 MG/10 ML LIQUID UDC ONE ×2 (09:16→18:13)
[2023-08-30] MEDS ORDERED: ASPIRIN 81 MG TAB.CHEW ONE (09:16)
[2023-08-30] MEDS ORDERED: levETIRAcetam 500 MG/5 ML LIQUID UDC ONE ×2 (09:16→22:26)
[2023-08-30] MEDS: DOCUSATE SODIUM 100 MG/10 ML LIQUID UDC PO SCH ×2 (09:19→17:00)
[2023-08-30] MEDS: ASPIRIN 81 MG TAB.CHEW GT SCH (09:19)
[2023-08-30] MEDS: levETIRAcetam 500 MG/5 ML LIQUID UDC GT SCH ×2 (09:20→22:31)
[2023-08-30] MEDS: PHENOBARBITAL 32.4 MG TABLET PO SCH ×2 (09:22→22:20)
[2023-08-30] MEDS: MULTIVITAMINS,THERAPEUTIC TABLET GT SCH (09:23)
[2023-08-30] MEDS: CHLORHEXIDINE GLUCONATE 15 ML MOUTHWASH MM SCH (09:23)
[2023-08-30 10:23] LABS: ABG BASE EXCESS 5.8 mmol/L (-2.0-2.0); ABG HCO3 28.9 mmol/L (22.0-26.0); ABG PCO2 36.6 mmHg (35.0-48.0); ABG PH 7.516 (7.340-7.440); ABG PO2 93.2 mmHg (75.0-100.0); ABG SITE LEFT RADIAL; ABG TOTAL HEMOGLOBIN 10.6 G/dL (12.0-16.0); AaDO2 97.8 mmHg; COHb 0.3 % (0.0-3.9); MetHb 0.4 % (0.0-1.5); O2Hb 96.4 % (94.0-97.0); VT, ABG 500 mL
[2023-08-30] MEDS ORDERED: SWABABLE VALVE TRANSFER SET EA MC ONE (10:39)
[2023-08-30] MEDS ORDERED: IV NORMAL SALINE 250 ML IV ONE (10:39)
[2023-08-30] MEDS ORDERED: IOHEXOL 350 100 ML INFUS..BTL ONE (10:41)
[2023-08-30] MEDS ORDERED: VANCOMYCIN IV 200 ML ONE (12:22)
[2023-08-30] MEDS: VANCOMYCIN IV 1,000 MG in IV DEXTROSE 5% 250 ML IV SCH (12:26)
[2023-08-30] MEDS: NOREPINEPHRINE BITARTRATE 8 MG in IV NORMAL SALINE 242 ML IV PRN (15:52)
[2023-08-30] MEDS: MAGNESIUM OXIDE 400 MG TABLET GT SCH (22:20)
[2023-08-30] MEDS: ACETAMINOPHEN 650 MG/20.3 ML LIQUID UDC GT PRN (22:21)
[2023-08-30] MEDS ORDERED: MEROPENEM 1GM/NS 100ML IVPB **ER PYXIS ONLY IV ONE (22:26)
[2023-08-31] VITALS (61 sets, daily range): BP systolic 93–150; BP diastolic 63–92; TEMP 98.3–99.8; O2SAT 100
[2023-08-31] MEDS: VANCOMYCIN IV 1,000 MG in IV DEXTROSE 5% 250 ML IV SCH ×2 (04:18→20:28)
[2023-08-31 05:55] LABS: BASOPHILS % (AUTO) 0.4 % (0.0-2.0); EOSINOPHILS # (AUTO) 0.1 K/uL (0.0-0.7); EOSINOPHILS % (AUTO) 1.2 % (0.0-7.0); HEMATOCRIT 29.5 % (31.2-41.9); HEMOGLOBIN 9.9 g/dL (10.9-14.3); LYMPHOCYTES # (AUTO) 1.1 K/uL (0.8-4.8); LYMPHOCYTES % (AUTO) 18.7 % (20.5-51.5); MEAN CORPUSCULAR HEMOGLOBIN 27.7 uug (24.7-32.8); MEAN CORPUSCULAR HGB CONC 34 g/dL (32.3-35.6); MEAN CORPUSCULAR VOLUME 82.8 fL (75.5-95.3); MONOCYTES # (AUTO) 0.6 K/uL (0.1-1.30); MONOCYTES % (AUTO) 10.8 % (0.0-11.0); NEUTROPHILS % (AUTO) 68.9 % (38.5-71.5); PLATELET COUNT (AUTO) 181 K/uL (179-408); RED BLOOD CELL COUNT(AUTO) 3.56 MIL/uL (3.63-4.92); RED CELL DISTRIBUTION WIDTH 17.1 % (12.3-17.7); WHITE BLOOD COUNT (AUTO) 5.9 K/uL (3.8-11.8)
[2023-08-31 06:53] LABS: CALCIUM 8.7 mg/dL (8.5-10.1); CREATININE 0.6 mg/dL (0.6-1.3); PHOSPHOROUS 2.8 mg/dL (2.5-4.9); POTASSIUM 3.3 mmol/L (3.5-5.1)
[2023-08-31] MEDS: MEROPENEM 1 G in IV NORMAL SALINE 100 ML IV SCH ×3 (06:59→21:39)
[2023-08-31] MEDS: PANTOPRAZOLE ORAL SUSPENSION 40 MG SUSPDR.PKT GT SCH (07:00)
[2023-08-31 07:27] LABS: DIFFERENTIAL COMMENT 1
[2023-08-31] MEDS: PHENOBARBITAL 32.4 MG TABLET PO SCH ×2 (09:44→20:33)
[2023-08-31] MEDS: CHLORHEXIDINE GLUCONATE 15 ML MOUTHWASH MM SCH (09:45)
[2023-08-31] MEDS: ASPIRIN 81 MG TAB.CHEW GT SCH (09:54)
[2023-08-31] MEDS: MULTIVITAMINS,THERAPEUTIC TABLET GT SCH (09:54)
[2023-08-31] MEDS: VITAL AF 1.2 1,000 ML LIQUID GT PRN (09:55)
[2023-08-31] MEDS: NOREPINEPHRINE BITARTRATE 8 MG in IV NORMAL SALINE 242 ML IV PRN (09:58)
[2023-08-31] MEDS ORDERED: POTASSIUM CHLORIDE 20 MEQ POWDER PACKET GT ONE (10:15)
[2023-08-31] MEDS: levETIRAcetam 500 MG/5 ML LIQUID UDC GT SCH ×2 (10:45→20:34)
[2023-08-31] MEDS: DOCUSATE SODIUM 100 MG/10 ML LIQUID UDC PO SCH ×2 (10:45→18:06)
[2023-08-31] MEDS ORDERED: POTASSIUM CHLORIDE 20 MEQ in IV NS 1000 ML 1,000 ML IV SCH (17:00)
[2023-08-31] MEDS ORDERED: FLUCONAZOLE 200 MG TABLET PO ONE (19:19)
[2023-08-31] MEDS: MAGNESIUM OXIDE 400 MG TABLET GT SCH (20:33)
[2023-09-01] VITALS (21 sets, daily range): BP systolic 93–117; BP diastolic 56–80; TEMP 97.4–97.8; O2SAT 99–100
[2023-09-01 05:46] LABS: BASOPHILS % (AUTO) 0.4 % (0.0-2.0); EOSINOPHILS # (AUTO) 0.1 K/uL (0.0-0.7); EOSINOPHILS % (AUTO) 3.6 % (0.0-7.0); HEMATOCRIT 24.8 % (31.2-41.9); HEMOGLOBIN 8.3 g/dL (10.9-14.3); LYMPHOCYTES # (AUTO) 0.6 K/uL (0.8-4.8); LYMPHOCYTES % (AUTO) 16.5 % (20.5-51.5); MEAN CORPUSCULAR HEMOGLOBIN 27.6 uug (24.7-32.8); MEAN CORPUSCULAR HGB CONC 33 g/dL (32.3-35.6); MEAN CORPUSCULAR VOLUME 82.7 fL (75.5-95.3); MONOCYTES # (AUTO) 0.3 K/uL (0.1-1.30); MONOCYTES % (AUTO) 8.1 % (0.0-11.0); NEUTROPHILS # (AUTO) 2.6 K/uL (1.8-8.9); NEUTROPHILS % (AUTO) 71.4 % (38.5-71.5); PLATELET COUNT (AUTO) 124 K/uL (179-408); RED CELL DISTRIBUTION WIDTH 17.1 % (12.3-17.7); WHITE BLOOD COUNT (AUTO) 3.7 K/uL (3.8-11.8)
[2023-09-01 05:51] LABS: DIFFERENTIAL COMMENT 1
[2023-09-01 05:59] LABS: ABG BASE EXCESS 4.3 mmol/L (-2.0-2.0); ABG HCO3 28.2 mmol/L (22.0-26.0); ABG PCO2 39.3 mmHg (35.0-48.0); ABG PH 7.474 (7.340-7.440); ABG PO2 130.6 mmHg (75.0-100.0); AaDO2 98.8 mmHg; COHb 0.3 % (0.0-3.9); MetHb 0.6 % (0.0-1.5); O2Hb 97.3 % (94.0-97.0); VT, ABG 470 mL
[2023-09-01 06:06] LABS: CALCIUM 8.8 mg/dL (8.5-10.1); CREATININE 0.5 mg/dL (0.6-1.3); MAGNESIUM 2.1 mg/dL (1.8-2.4); PHOSPHOROUS 2.8 mg/dL (2.5-4.9)
[2023-09-01] MEDS: MEROPENEM 1 G in IV NORMAL SALINE 100 ML IV SCH ×3 (06:06→22:35)
[2023-09-01] MEDS: PANTOPRAZOLE ORAL SUSPENSION 40 MG SUSPDR.PKT GT SCH (06:06)
[2023-09-01] MEDS: ASPIRIN 81 MG TAB.CHEW GT SCH (09:28)
[2023-09-01] MEDS: CHLORHEXIDINE GLUCONATE 15 ML MOUTHWASH MM SCH (09:28)
[2023-09-01] MEDS: MULTIVITAMINS,THERAPEUTIC TABLET GT SCH (09:28)
[2023-09-01] MEDS: PHENOBARBITAL 32.4 MG TABLET PO SCH ×2 (09:29→21:00)
[2023-09-01] MEDS: levETIRAcetam 500 MG/5 ML LIQUID UDC GT SCH ×2 (09:30→21:00)
[2023-09-01] MEDS: DOCUSATE SODIUM 100 MG/10 ML LIQUID UDC PO SCH ×2 (09:31→16:43)
[2023-09-01] MEDS: VITAL AF 1.2 1,000 ML LIQUID GT PRN (09:58)
[2023-09-01] MEDS: VANCOMYCIN IV 1,000 MG in IV DEXTROSE 5% 250 ML IV SCH (13:54)
[2023-09-01] MEDS ORDERED: FLUCONAZOLE 200 MG/NS 100ML IV 100 MG in PREMIXED 1 EACH IV SCH (14:00)
[2023-09-01] MEDS: MAGNESIUM OXIDE 400 MG TABLET GT SCH (21:00)
[2023-09-01] MEDS ORDERED: MAGNESIUM OXIDE 400 MG TABLET ONE (22:28)
[2023-09-01] MEDS ORDERED: PHENOBARBITAL 32.4 MG TABLET ONE (22:29)
[2023-09-02] VITALS (15 sets, daily range): BP systolic 65–149; BP diastolic 49–83; O2SAT 95–99
[2023-09-02] MEDS ORDERED: NOREPINEPHRINE BITARTRATE 4 MG/4 ML VIAL IV ONE ×2 (04:07→18:50)
[2023-09-02] MEDS: NOREPINEPHRINE BITARTRATE 8 MG in IV NORMAL SALINE 242 ML IV PRN (04:12)
[2023-09-02] MEDS ORDERED: NOREPINEPHRINE BITARTRATE 8 MG in IV NORMAL SALINE 242 ML IV PRN (04:15)
[2023-09-02 05:34] LABS: BASOPHILS % (AUTO) 0.3 % (0.0-2.0); EOSINOPHILS # (AUTO) 0.3 K/uL (0.0-0.7); EOSINOPHILS % (AUTO) 4.7 % (0.0-7.0); HEMATOCRIT 32.9 % (31.2-41.9); HEMOGLOBIN 10.7 g/dL (10.9-14.3); LYMPHOCYTES # (AUTO) 1.4 K/uL (0.8-4.8); LYMPHOCYTES % (AUTO) 23.2 % (20.5-51.5); MEAN CORPUSCULAR HEMOGLOBIN 27.3 uug (24.7-32.8); MEAN CORPUSCULAR HGB CONC 33 g/dL (32.3-35.6); MEAN CORPUSCULAR VOLUME 83.7 fL (75.5-95.3); MONOCYTES # (AUTO) 0.4 K/uL (0.1-1.30); MONOCYTES % (AUTO) 7.4 % (0.0-11.0); NEUTROPHILS # (AUTO) 3.9 K/uL (1.8-8.9); NEUTROPHILS % (AUTO) 64.4 % (38.5-71.5); PLATELET COUNT (AUTO) 234 K/uL (179-408); RED BLOOD CELL COUNT(AUTO) 3.93 MIL/uL (3.63-4.92); RED CELL DISTRIBUTION WIDTH 17.3 % (12.3-17.7)
[2023-09-02 05:36] LABS: DIFFERENTIAL COMMENT 1
[2023-09-02] MEDS: VANCOMYCIN IV 1,000 MG in IV DEXTROSE 5% 250 ML IV SCH ×2 (05:48→08:20)
[2023-09-02 06:01] LABS: ALBUMIN 2.2 g/dL (3.4-5.0); CALCIUM 9.2 mg/dL (8.5-10.1); CREATININE 0.5 mg/dL (0.6-1.3); PHOSPHOROUS 2.6 mg/dL (2.5-4.9); POTASSIUM 4.3 mmol/L (3.5-5.1); TOTAL PROTEIN, SERUM 6.8 g/dL (6.4-8.2)
[2023-09-02] MEDS: PANTOPRAZOLE ORAL SUSPENSION 40 MG SUSPDR.PKT GT SCH (07:00)
[2023-09-02] MEDS: MEROPENEM 1 G in IV NORMAL SALINE 100 ML IV SCH ×3 (07:15→21:20)
[2023-09-02] MEDS ORDERED: PANTOPRAZOLE ORAL SUSPENSION 40 MG SUSPDR.PKT ONE (08:19)
[2023-09-02] MEDS: DOCUSATE SODIUM 100 MG/10 ML LIQUID UDC PO SCH ×2 (09:00→17:52)
[2023-09-02] MEDS: levETIRAcetam 500 MG/5 ML LIQUID UDC GT SCH ×2 (09:00→21:18)
[2023-09-02] MEDS: MULTIVITAMINS,THERAPEUTIC TABLET GT SCH (09:00)
[2023-09-02] MEDS: CHLORHEXIDINE GLUCONATE 15 ML MOUTHWASH MM SCH (09:00)
[2023-09-02] MEDS: ASPIRIN 81 MG TAB.CHEW GT SCH (09:00)
[2023-09-02] MEDS: PHENOBARBITAL 32.4 MG TABLET PO SCH ×2 (09:00→21:15)
[2023-09-02] MEDS ORDERED: ASPIRIN EC 81 MG TABLET.DR PO ONE (09:32)
[2023-09-02] MEDS ORDERED: DOCUSATE SODIUM 100 MG/10 ML LIQUID UDC ONE ×2 (09:33→17:36)
[2023-09-02] MEDS ORDERED: PHENOBARBITAL 32.4 MG TABLET ONE ×2 (09:35→20:39)
[2023-09-02] MEDS ORDERED: MEROPENEM 1GM/NS 100ML IVPB **ER PYXIS ONLY IV ONE ×2 (14:19→20:40)
[2023-09-02] MEDS ORDERED: levETIRAcetam 500 MG/5 ML LIQUID UDC ONE (20:38)
[2023-09-02] MEDS ORDERED: MAGNESIUM OXIDE 400 MG TABLET ONE (20:38)
[2023-09-02] MEDS: MAGNESIUM OXIDE 400 MG TABLET GT SCH (21:15)
[2023-09-03 05:16] LABS: BASOPHILS % (AUTO) 0.2 % (0.0-2.0); EOSINOPHILS # (AUTO) 0.3 K/uL (0.0-0.7); HEMATOCRIT 29.7 % (31.2-41.9); HEMOGLOBIN 9.8 g/dL (10.9-14.3); LYMPHOCYTES # (AUTO) 0.9 K/uL (0.8-4.8); LYMPHOCYTES % (AUTO) 14.3 % (20.5-51.5); MEAN CORPUSCULAR HEMOGLOBIN 27.3 uug (24.7-32.8); MEAN CORPUSCULAR HGB CONC 33 g/dL (32.3-35.6); MEAN CORPUSCULAR VOLUME 82.4 fL (75.5-95.3); MONOCYTES # (AUTO) 0.4 K/uL (0.1-1.30); MONOCYTES % (AUTO) 6.5 % (0.0-11.0); NEUTROPHILS # (AUTO) 4.8 K/uL (1.8-8.9); PLATELET COUNT (AUTO) 240 K/uL (179-408); RED BLOOD CELL COUNT(AUTO) 3.61 MIL/uL (3.63-4.92); RED CELL DISTRIBUTION WIDTH 17.1 % (12.3-17.7); WHITE BLOOD COUNT (AUTO) 6.4 K/uL (3.8-11.8)
[2023-09-03 05:24] LABS: DIFFERENTIAL COMMENT 1
[2023-09-03 05:33] LABS: ALBUMIN 1.9 g/dL (3.4-5.0); BILIRUBIN,DIRECT 0.5 mg/dL (0.0-0.2); BILIRUBIN,TOTAL 0.7 mg/dL (0.2-1.0); CALCIUM 8.6 mg/dL (8.5-10.1); CREATININE 0.5 mg/dL (0.6-1.3); MAGNESIUM 1.8 mg/dL (1.8-2.4); PHOSPHOROUS 2.9 mg/dL (2.5-4.9); TOTAL PROTEIN, SERUM 6.2 g/dL (6.4-8.2)
[2023-09-03 06:12] LABS: ABG HCO3 24.4 mmol/L (22.0-26.0); ABG PCO2 34.2 mmHg (35.0-48.0); ABG PH 7.471 (7.340-7.440); ABG SITE RIGHT RADIAL; ABG TOTAL HEMOGLOBIN 10.2 G/dL (12.0-16.0); AaDO2 97.9 mmHg; COHb 0.3 % (0.0-3.9); MetHb 0.3 % (0.0-1.5); O2Hb 96.7 % (94.0-97.0); VT, ABG 470 mL
[2023-09-03] MEDS: MEROPENEM 1 G in IV NORMAL SALINE 100 ML IV SCH (06:15)
[2023-09-03] MEDS ORDERED: MEROPENEM 1GM/NS 100ML IVPB **ER PYXIS ONLY IV ONE ×2 (06:20→06:21)
[2023-09-03] MEDS: PANTOPRAZOLE ORAL SUSPENSION 40 MG SUSPDR.PKT GT SCH (07:00)
[2023-09-03] MEDS: MULTIVITAMINS,THERAPEUTIC TABLET GT SCH (09:00)
[2023-09-03] MEDS: PHENOBARBITAL 32.4 MG TABLET PO SCH ×2 (09:00→20:34)
[2023-09-03] MEDS: CHLORHEXIDINE GLUCONATE 15 ML MOUTHWASH MM SCH (09:00)
[2023-09-03] MEDS: DOCUSATE SODIUM 100 MG/10 ML LIQUID UDC PO SCH ×2 (09:00→16:41)
[2023-09-03] MEDS: levETIRAcetam 500 MG/5 ML LIQUID UDC GT SCH ×2 (09:00→20:34)
[2023-09-03] MEDS: ASPIRIN 81 MG TAB.CHEW GT SCH (09:00)
[2023-09-03] MEDS ORDERED: ASPIRIN 81 MG TAB.CHEW ONE (09:17)
[2023-09-03] MEDS ORDERED: DOCUSATE SODIUM 100 MG/10 ML LIQUID UDC ONE (09:18)
[2023-09-03] MEDS ORDERED: levETIRAcetam 500 MG/5 ML LIQUID UDC ONE (09:31)
[2023-09-03] MEDS ORDERED: PANTOPRAZOLE ORAL SUSPENSION 40 MG SUSPDR.PKT ONE (09:31)
[2023-09-03] MEDS ORDERED: PHENOBARBITAL 32.4 MG TABLET ONE (09:46)
[2023-09-03 13:52] VITALS: BP 146/85; TEMP 98.3; O2SAT 98
[2023-09-03] MEDS: VITAL AF 1.2 1,000 ML LIQUID GT PRN ×2 (14:15)
[2023-09-03 15:56] VITALS: BP 123/74; TEMP 98.2; O2SAT 98
[2023-09-03 20:00] VITALS: BP 135/86; TEMP 98.6; O2SAT 98
[2023-09-03] MEDS: MAGNESIUM OXIDE 400 MG TABLET GT SCH (20:34)
[2023-09-03] MEDS: ACETAMINOPHEN 650 MG/20.3 ML LIQUID UDC GT PRN (20:34)
[2023-09-04] VITALS: BP 122/84; TEMP 97.7; O2SAT 99
[2023-09-04 04:00] VITALS: BP 126/82; TEMP 97.7; O2SAT 98
[2023-09-04] MEDS: PANTOPRAZOLE ORAL SUSPENSION 40 MG SUSPDR.PKT GT SCH (06:18)
[2023-09-04 07:45] LABS: ALBUMIN 2.1 g/dL (3.4-5.0); BILIRUBIN,DIRECT 0.4 mg/dL (0.0-0.2); BILIRUBIN,TOTAL 0.5 mg/dL (0.2-1.0); CALCIUM 8.7 mg/dL (8.5-10.1); CREATININE 0.5 mg/dL (0.6-1.3); MAGNESIUM 1.9 mg/dL (1.8-2.4); PHOSPHOROUS 3.3 mg/dL (2.5-4.9); TOTAL PROTEIN, SERUM 6.6 g/dL (6.4-8.2)
[2023-09-04 07:58] LABS: BASOPHILS % (AUTO) 0.2 % (0.0-2.0); EOSINOPHILS # (AUTO) 0.2 K/uL (0.0-0.7); EOSINOPHILS % (AUTO) 2.4 % (0.0-7.0); HEMATOCRIT 27.5 % (31.2-41.9); HEMOGLOBIN 9.2 g/dL (10.9-14.3); LYMPHOCYTES # (AUTO) 1.2 K/uL (0.8-4.8); LYMPHOCYTES % (AUTO) 14.7 % (20.5-51.5); MEAN CORPUSCULAR HEMOGLOBIN 27.9 uug (24.7-32.8); MEAN CORPUSCULAR HGB CONC 34 g/dL (32.3-35.6); MEAN CORPUSCULAR VOLUME 83.4 fL (75.5-95.3); MONOCYTES # (AUTO) 0.6 K/uL (0.1-1.30); MONOCYTES % (AUTO) 7.4 % (0.0-11.0); NEUTROPHILS # (AUTO) 6.3 K/uL (1.8-8.9); NEUTROPHILS % (AUTO) 75.3 % (38.5-71.5); PLATELET COUNT (AUTO) 99 K/uL (179-408); RED BLOOD CELL COUNT(AUTO) 3.29 MIL/uL (3.63-4.92); RED CELL DISTRIBUTION WIDTH 17.1 % (12.3-17.7); WHITE BLOOD COUNT (AUTO) 8.4 K/uL (3.8-11.8)
[2023-09-04 08:00] VITALS: BP 119/78; TEMP 98.6; O2SAT 98
[2023-09-04 08:07] LABS: DIFFERENTIAL COMMENT 1
[2023-09-04] MEDS: CHLORHEXIDINE GLUCONATE 15 ML MOUTHWASH MM SCH (08:24)
[2023-09-04] MEDS: levETIRAcetam 500 MG/5 ML LIQUID UDC GT SCH ×2 (08:24→20:39)
[2023-09-04] MEDS: ASPIRIN 81 MG TAB.CHEW GT SCH (08:24)
[2023-09-04] MEDS: DOCUSATE SODIUM 100 MG/10 ML LIQUID UDC PO SCH ×2 (08:24→16:28)
[2023-09-04] MEDS: MULTIVITAMINS,THERAPEUTIC TABLET GT SCH (08:25)
[2023-09-04] MEDS: PHENOBARBITAL 32.4 MG TABLET PO SCH ×2 (08:42→20:40)
[2023-09-04] MEDS: VITAL AF 1.2 1,000 ML LIQUID GT PRN (09:55)
[2023-09-04 11:59] VITALS: BP 108/79; TEMP 97.8; O2SAT 98
[2023-09-04 16:00] VITALS: BP 117/81; TEMP 97.7; O2SAT 98
[2023-09-04 20:00] VITALS: BP 112/75; TEMP 97.8; O2SAT 99
[2023-09-04] MEDS: MAGNESIUM OXIDE 400 MG TABLET GT SCH (20:39)
[2023-09-04] MEDS: ACETAMINOPHEN 650 MG/20.3 ML LIQUID UDC GT PRN (20:40)
[2023-09-05 04:50] VITALS: BP 103/72; TEMP 97.6; O2SAT 100
[2023-09-05] MEDS: PANTOPRAZOLE ORAL SUSPENSION 40 MG SUSPDR.PKT GT SCH (05:58)
[2023-09-05 07:53] VITALS: BP 103/66; TEMP 97.6; O2SAT 98
[2023-09-05] MEDS: levETIRAcetam 500 MG/5 ML LIQUID UDC GT SCH ×2 (08:38→20:23)
[2023-09-05] MEDS: DOCUSATE SODIUM 100 MG/10 ML LIQUID UDC PO SCH ×2 (08:38→17:22)
[2023-09-05] MEDS: PHENOBARBITAL 32.4 MG TABLET PO SCH ×2 (08:39→20:24)
[2023-09-05] MEDS: ASPIRIN 81 MG TAB.CHEW GT SCH (08:39)
[2023-09-05] MEDS: CHLORHEXIDINE GLUCONATE 15 ML MOUTHWASH MM SCH (08:39)
[2023-09-05] MEDS: MULTIVITAMINS,THERAPEUTIC TABLET GT SCH (08:39)
[2023-09-05] MEDS: REMEDY ESSENTIAL ZINC PASTE 113 GM TOP PRN (08:39)
[2023-09-05 12:00] VITALS: BP 105/72; TEMP 98.3; O2SAT 99
[2023-09-05 16:35] VITALS: BP 118/77; TEMP 97.6; O2SAT 99
[2023-09-05 20:00] VITALS: BP 107/73; TEMP 97.7; O2SAT 98
[2023-09-05] MEDS: MAGNESIUM OXIDE 400 MG TABLET GT SCH (20:23)
[2023-09-06] VITALS: BP 115/75; TEMP 100.8; O2SAT 99
[2023-09-06] MEDS: ACETAMINOPHEN 650 MG/20.3 ML LIQUID UDC GT PRN (00:13)
[2023-09-06 06:06] VITALS: BP 115/80; TEMP 98.3; O2SAT 99
[2023-09-06] MEDS: PANTOPRAZOLE ORAL SUSPENSION 40 MG SUSPDR.PKT GT SCH (06:29)
[2023-09-06 08:23] LABS: BILIRUBIN,DIRECT 0.2 mg/dL (0.0-0.2); BILIRUBIN,TOTAL 0.4 mg/dL (0.2-1.0); CALCIUM 8.9 mg/dL (8.5-10.1); CREATININE 0.5 mg/dL (0.6-1.3); PHOSPHOROUS 3.7 mg/dL (2.5-4.9); POTASSIUM 3.7 mmol/L (3.5-5.1); TOTAL PROTEIN, SERUM 6.2 g/dL (6.4-8.2)
[2023-09-06 08:34] LABS: BASOPHILS % (AUTO) 0.2 % (0.0-2.0); EOSINOPHILS # (AUTO) 0.2 K/uL (0.0-0.7); EOSINOPHILS % (AUTO) 3.7 % (0.0-7.0); HEMATOCRIT 25.2 % (31.2-41.9); HEMOGLOBIN 8.3 g/dL (10.9-14.3); LYMPHOCYTES # (AUTO) 0.9 K/uL (0.8-4.8); LYMPHOCYTES % (AUTO) 16.5 % (20.5-51.5); MEAN CORPUSCULAR HEMOGLOBIN 27.6 uug (24.7-32.8); MEAN CORPUSCULAR HGB CONC 33 g/dL (32.3-35.6); MEAN CORPUSCULAR VOLUME 83.8 fL (75.5-95.3); MONOCYTES # (AUTO) 0.5 K/uL (0.1-1.30); NEUTROPHILS # (AUTO) 3.9 K/uL (1.8-8.9); NEUTROPHILS % (AUTO) 70.6 % (38.5-71.5); PLATELET COUNT (AUTO) 228 K/uL (179-408); RED BLOOD CELL COUNT(AUTO) 3.01 MIL/uL (3.63-4.92); RED CELL DISTRIBUTION WIDTH 17.8 % (12.3-17.7); WHITE BLOOD COUNT (AUTO) 5.5 K/uL (3.8-11.8)
[2023-09-06 08:35] LABS: DIFFERENTIAL COMMENT 1
[2023-09-06] MEDS: DOCUSATE SODIUM 100 MG/10 ML LIQUID UDC PO SCH ×2 (09:04→16:38)
[2023-09-06] MEDS: levETIRAcetam 500 MG/5 ML LIQUID UDC GT SCH ×2 (09:04→20:09)
[2023-09-06] MEDS: PROTEIN SUPPLEMENT (PROSTAT) 30 ML LIQUID GT SCH (09:05)
[2023-09-06] MEDS: ASPIRIN 81 MG TAB.CHEW GT SCH (09:05)
[2023-09-06] MEDS: PHENOBARBITAL 32.4 MG TABLET PO SCH ×2 (09:05→20:09)
[2023-09-06] MEDS: MULTIVITAMINS,THERAPEUTIC TABLET GT SCH (09:05)
[2023-09-06] MEDS: CHLORHEXIDINE GLUCONATE 15 ML MOUTHWASH MM SCH (09:13)
[2023-09-06 11:25] VITALS: BP 115/80; TEMP 98.6; O2SAT 99
[2023-09-06 15:53] VITALS: BP 115/80; TEMP 97.6; O2SAT 98
[2023-09-06 20:00] VITALS: BP 109/80; TEMP 98.4; O2SAT 100
[2023-09-06] MEDS: MAGNESIUM OXIDE 400 MG TABLET GT SCH (20:09)
[2023-09-07] VITALS: BP 120/87; TEMP 98.4; O2SAT 98
[2023-09-07 04:00] VITALS: BP 124/86; TEMP 98.3; O2SAT 98
[2023-09-07] MEDS: PANTOPRAZOLE ORAL SUSPENSION 40 MG SUSPDR.PKT GT SCH (06:20)
[2023-09-07 06:22] LABS: BASOPHILS % (AUTO) 0.1 % (0.0-2.0); DIFFERENTIAL COMMENT 0; EOSINOPHILS # (AUTO) 0.2 K/uL (0.0-0.7); EOSINOPHILS % (AUTO) 4.3 % (0.0-7.0); HEMATOCRIT 26.3 % (31.2-41.9); LYMPHOCYTES # (AUTO) 0.8 K/uL (0.8-4.8); LYMPHOCYTES % (AUTO) 15.6 % (20.5-51.5); MEAN CORPUSCULAR HEMOGLOBIN 28.2 uug (24.7-32.8); MEAN CORPUSCULAR HGB CONC 34 g/dL (32.3-35.6); MEAN CORPUSCULAR VOLUME 82.3 fL (75.5-95.3); MONOCYTES # (AUTO) 0.5 K/uL (0.1-1.30); MONOCYTES % (AUTO) 9.5 % (0.0-11.0); NEUTROPHILS # (AUTO) 3.5 K/uL (1.8-8.9); NEUTROPHILS % (AUTO) 70.5 % (38.5-71.5); PLATELET COUNT (AUTO) 223 K/uL (179-408); RED BLOOD CELL COUNT(AUTO) 3.19 MIL/uL (3.63-4.92); RED CELL DISTRIBUTION WIDTH 17.5 % (12.3-17.7)
[2023-09-07 06:54] LABS: CREATININE 0.5 mg/dL (0.6-1.3); MAGNESIUM 1.9 mg/dL (1.8-2.4); PHOSPHOROUS 3.9 mg/dL (2.5-4.9); POTASSIUM 3.6 mmol/L (3.5-5.1)
[2023-09-07] MEDS: levETIRAcetam 500 MG/5 ML LIQUID UDC GT SCH ×2 (08:22→20:35)
[2023-09-07] MEDS: DOCUSATE SODIUM 100 MG/10 ML LIQUID UDC PO SCH ×2 (08:23→17:01)
[2023-09-07] MEDS: MULTIVITAMINS,THERAPEUTIC TABLET GT SCH (08:23)
[2023-09-07] MEDS: PROTEIN SUPPLEMENT (PROSTAT) 30 ML LIQUID GT SCH (08:23)
[2023-09-07] MEDS: CHLORHEXIDINE GLUCONATE 15 ML MOUTHWASH MM SCH (08:23)
[2023-09-07] MEDS: ASPIRIN 81 MG TAB.CHEW GT SCH (08:23)
[2023-09-07] MEDS: REMEDY ESSENTIAL ZINC PASTE 113 GM TOP PRN (08:24)
[2023-09-07] MEDS: VITAL AF 1.2 1,000 ML LIQUID GT PRN (08:24)
[2023-09-07] MEDS: PHENOBARBITAL 32.4 MG TABLET PO SCH ×2 (08:30→20:35)
[2023-09-07 15:49] VITALS: BP 124/86; TEMP 97.2; O2SAT 99
[2023-09-07 20:00] VITALS: BP 118/81; TEMP 98.1; O2SAT 99
[2023-09-07] MEDS: MAGNESIUM OXIDE 400 MG TABLET GT SCH (20:35)
[2023-09-08 04:00] VITALS: BP 128/88; TEMP 98.4; O2SAT 99
[2023-09-08] MEDS: PANTOPRAZOLE ORAL SUSPENSION 40 MG SUSPDR.PKT GT SCH (06:29)
[2023-09-08 08:00] VITALS: BP 127/70; TEMP 97.6; O2SAT 99
[2023-09-08] MEDS: PHENOBARBITAL 32.4 MG TABLET PO SCH ×2 (09:13→21:32)
[2023-09-08] MEDS: DOCUSATE SODIUM 100 MG/10 ML LIQUID UDC PO SCH ×2 (09:13→16:44)
[2023-09-08] MEDS: ASPIRIN 81 MG TAB.CHEW GT SCH (09:13)
[2023-09-08] MEDS: levETIRAcetam 500 MG/5 ML LIQUID UDC GT SCH ×2 (09:13→21:32)
[2023-09-08] MEDS: MULTIVITAMINS,THERAPEUTIC TABLET GT SCH (09:13)
[2023-09-08] MEDS: CHLORHEXIDINE GLUCONATE 15 ML MOUTHWASH MM SCH (09:14)
[2023-09-08] MEDS: PROTEIN SUPPLEMENT (PROSTAT) 30 ML LIQUID GT SCH (09:14)
[2023-09-08] MEDS: VITAL AF 1.2 1,000 ML LIQUID GT PRN (09:15)
[2023-09-08] MEDS: REMEDY ESSENTIAL ZINC PASTE 113 GM TOP PRN (09:15)
[2023-09-08 12:00] VITALS: BP 128/88; TEMP 97.6; O2SAT 100
[2023-09-08 16:00] VITALS: BP 107/78; TEMP 97.6; O2SAT 99
[2023-09-08] MEDS: MAGNESIUM OXIDE 400 MG TABLET GT SCH (21:35)
[2023-09-09] MEDS: VITAL AF 1.2 1,000 ML LIQUID GT PRN (04:00)
[2023-09-09] MEDS: PANTOPRAZOLE ORAL SUSPENSION 40 MG SUSPDR.PKT GT SCH (06:36)
[2023-09-09 07:39] VITALS: BP 109/77; TEMP 97.6; O2SAT 99
[2023-09-09] MEDS: ASPIRIN 81 MG TAB.CHEW GT SCH (08:43)
[2023-09-09] MEDS: levETIRAcetam 500 MG/5 ML LIQUID UDC GT SCH ×2 (08:44→20:12)
[2023-09-09] MEDS: CHLORHEXIDINE GLUCONATE 15 ML MOUTHWASH MM SCH (08:44)
[2023-09-09] MEDS: DOCUSATE SODIUM 100 MG/10 ML LIQUID UDC PO SCH ×2 (08:44→16:56)
[2023-09-09] MEDS: MULTIVITAMINS,THERAPEUTIC TABLET GT SCH (08:44)
[2023-09-09] MEDS: PROTEIN SUPPLEMENT (PROSTAT) 30 ML LIQUID GT SCH (08:48)
[2023-09-09] MEDS: PHENOBARBITAL 32.4 MG TABLET PO SCH ×2 (09:36→20:12)
[2023-09-09 12:00] VITALS: BP 109/77; TEMP 97.6; O2SAT 100
[2023-09-09] MEDS: MAGNESIUM OXIDE 400 MG TABLET GT SCH (20:12)
[2023-09-09 20:38] VITALS: BP 142/92; TEMP 98.6; O2SAT 99
[2023-09-10 04:00] VITALS: BP 96/72; TEMP 98.5; O2SAT 93
[2023-09-10] MEDS: PANTOPRAZOLE ORAL SUSPENSION 40 MG SUSPDR.PKT GT SCH (06:37)
[2023-09-10 07:36] LABS: ALBUMIN 2.3 g/dL (3.4-5.0); BILIRUBIN,DIRECT 0.3 mg/dL (0.0-0.2); BILIRUBIN,TOTAL 0.5 mg/dL (0.2-1.0); CALCIUM 9.1 mg/dL (8.5-10.1); CREATININE 0.5 mg/dL (0.6-1.3); MAGNESIUM 1.8 mg/dL (1.8-2.4); PHOSPHOROUS 3.5 mg/dL (2.5-4.9); POTASSIUM 3.9 mmol/L (3.5-5.1); TOTAL PROTEIN, SERUM 7.3 g/dL (6.4-8.2)
[2023-09-10 07:44] LABS: BASOPHILS % (AUTO) 0.2 % (0.0-2.0); EOSINOPHILS # (AUTO) 0.2 K/uL (0.0-0.7); EOSINOPHILS % (AUTO) 2.6 % (0.0-7.0); HEMATOCRIT 28.2 % (31.2-41.9); HEMOGLOBIN 9.8 g/dL (10.9-14.3); LYMPHOCYTES # (AUTO) 0.9 K/uL (0.8-4.8); LYMPHOCYTES % (AUTO) 15.9 % (20.5-51.5); MEAN CORPUSCULAR HEMOGLOBIN 28.4 uug (24.7-32.8); MEAN CORPUSCULAR HGB CONC 35 g/dL (32.3-35.6); MEAN CORPUSCULAR VOLUME 81.9 fL (75.5-95.3); MONOCYTES # (AUTO) 0.5 K/uL (0.1-1.30); MONOCYTES % (AUTO) 8.9 % (0.0-11.0); NEUTROPHILS # (AUTO) 4.1 K/uL (1.8-8.9); NEUTROPHILS % (AUTO) 72.4 % (38.5-71.5); PLATELET COUNT (AUTO) 250 K/uL (179-408); RED BLOOD CELL COUNT(AUTO) 3.44 MIL/uL (3.63-4.92); RED CELL DISTRIBUTION WIDTH 18.1 % (12.3-17.7); WHITE BLOOD COUNT (AUTO) 5.7 K/uL (3.8-11.8)
[2023-09-10 07:45] LABS: DIFFERENTIAL COMMENT 1
[2023-09-10] MEDS: ASPIRIN 81 MG TAB.CHEW GT SCH (08:42)
[2023-09-10] MEDS: MULTIVITAMINS,THERAPEUTIC TABLET GT SCH (08:42)
[2023-09-10] MEDS: levETIRAcetam 500 MG/5 ML LIQUID UDC GT SCH ×2 (08:42→20:20)
[2023-09-10] MEDS: CHLORHEXIDINE GLUCONATE 15 ML MOUTHWASH MM SCH (08:42)
[2023-09-10] MEDS: DOCUSATE SODIUM 100 MG/10 ML LIQUID UDC PO SCH ×2 (08:43→16:24)
[2023-09-10] MEDS: PROTEIN SUPPLEMENT (PROSTAT) 30 ML LIQUID GT SCH ×3 (08:43→16:24)
[2023-09-10] MEDS: PHENOBARBITAL 32.4 MG TABLET PO SCH ×2 (09:31→20:20)
[2023-09-10 11:51] VITALS: BP 130/92; TEMP 97.2; O2SAT 99
[2023-09-10] MEDS: VITAL AF 1.2 1,000 ML LIQUID GT PRN (13:50)
[2023-09-10 16:33] VITALS: BP 122/82; TEMP 96.6; O2SAT 98
[2023-09-10] MEDS: MAGNESIUM OXIDE 400 MG TABLET GT SCH (20:20)
[2023-09-10 20:44] VITALS: BP 122/81; TEMP 98.4; O2SAT 99
[2023-09-11 04:00] VITALS: BP 104/73; TEMP 97.8; O2SAT 98
[2023-09-11] MEDS: PANTOPRAZOLE ORAL SUSPENSION 40 MG SUSPDR.PKT GT SCH (06:04)
[2023-09-11] MEDS: MULTIVITAMINS,THERAPEUTIC TABLET GT SCH (10:09)
[2023-09-11] MEDS: PHENOBARBITAL 32.4 MG TABLET PO SCH (10:09)
[2023-09-11] MEDS: ASPIRIN 81 MG TAB.CHEW GT SCH (10:09)
[2023-09-11] MEDS: levETIRAcetam 500 MG/5 ML LIQUID UDC GT SCH (10:13)
[2023-09-11] MEDS: DOCUSATE SODIUM 100 MG/10 ML LIQUID UDC PO SCH ×2 (10:13→16:53)
[2023-09-11] MEDS: CHLORHEXIDINE GLUCONATE 15 ML MOUTHWASH MM SCH (10:21)
[2023-09-11] MEDS: PROTEIN SUPPLEMENT (PROSTAT) 30 ML LIQUID GT SCH ×2 (10:21→16:53)
[2023-09-11 11:47] VITALS: BP 120/85; TEMP 97.7; O2SAT 97
[2023-09-11 15:54] VITALS: BP 116/80; TEMP 97.5; O2SAT 94
== END 2023-09-11 18:20 | DRG 720 ==
LOC: ER 11:04 → TRANSITION 12:52 → CCU 08-30 21:38 → TRANSITION 09-01 19:55 → DOU3 09-03 12:03 → TELE-TD3 09-03 12:44 → TELE3 09-07 08:47 → MEDSURG3 09-10 11:06
PROVIDERS: ADMIT Internal Medicine; ATTEND Nurse Practitioner Acute Care
PROC: 5A1955Z Respiratory Ventilation, Greater than 96 Consecutive Hours (ICD-10-PCS; principal; 2023-08-28)
PROC: 5A12012 Performance of Cardiac Output, Single, Manual (ICD-10-PCS; principal; 2023-08-28)
DX: A41.59 Other Gram-negative sepsis (principal); I46.9 Cardiac arrest, cause unspecified; J96.21 Acute and chronic respiratory failure with hypoxia; K72.00 Acute and subacute hepatic failure without coma; J69.0 Pneumonitis due to inhalation of food and vomit; G93.41 Metabolic encephalopathy; R40.3 Persistent vegetative state; E43 Unspecified severe protein-calorie malnutrition; J96.12 Chronic respiratory failure with hypercapnia; R57.9 Shock, unspecified; R65.21 Severe sepsis with septic shock; D68.59 Other primary thrombophilia; E88.09 Other disorders of plasma-protein metabolism, not elsewhere classified; I21.A1 Myocardial infarction type 2; R65.20 Severe sepsis without septic shock; R53.2 Functional quadriplegia; I49.01 Ventricular fibrillation; N39.0 Urinary tract infection, site not specified; B96.4 Proteus (mirabilis) (morganii) as the cause of diseases classified elsewhere; G40.909 Epilepsy, unspecified, not intractable, without status epilepticus; G20.A1 Parkinson's disease without dyskinesia, without mention of fluctuations; I48.0 Paroxysmal atrial fibrillation; I69.398 Other sequelae of cerebral infarction; Z93.0 Tracheostomy status; Z99.11 Dependence on respirator [ventilator] status; Z93.1 Gastrostomy status; K80.20 Calculus of gallbladder without cholecystitis without obstruction; N20.0 Calculus of kidney; I69.351 Hemiplegia and hemiparesis following cerebral infarction affecting right dominant side; R13.10 Dysphagia, unspecified; D50.9 Iron deficiency anemia, unspecified; J98.11 Atelectasis; Z98.890 Other specified postprocedural states; I69.298 Other sequelae of other nontraumatic intracranial hemorrhage; L89.156 Pressure-induced deep tissue damage of sacral region; I47.20 Ventricular tachycardia, unspecified; I47.10 Supraventricular tachycardia, unspecified; E78.5 Hyperlipidemia, unspecified; D69.6 Thrombocytopenia, unspecified; D72.819 Decreased white blood cell count, unspecified; Z79.82 Long term (current) use of aspirin; Z79.899 Other long term (current) drug therapy
CPT/HCPCS: 36415; 36600; 71045; 71275; 82803; 83605; 83690; 83735; 84100; 84484; 85025; 87040; 93307; 94003; 94760; 95819; A4606; A4663; A6209; A6213; G0378; J1450; J2185; J3370; J3480; J3490; J7040; J7050; Q9967

== ENCOUNTER 2023-09-12 00:25 | Inpatient (IN) | payer OTHER ==
[2023-09-12] VITALS (11 sets, daily range): BP systolic 93–134; BP diastolic 71–89; O2SAT 99–100
[~2023-09-12] VITALS: Ht 170.2 cm; Wt 61.7 kg
[~2023-09-12 00:25] MED LIST changes: -AMIO100T4 GT; -DEXT15DR6 EACHEYE; -DIAZ5TAB GT; -MERO1VIA23 IV; -METO25TA6 GT; +NEOM1OIN19 TP; +NUT.237L65 GT; -OMEP40CA21 GT; -RXVAN IV
[2023-09-12] MEDS ORDERED: IV NORMAL SALINE 1000 ML BAG IV ONE (01:30)
[2023-09-12 01:49] LABS: BASOPHILS % (AUTO) 0.1 % (0.0-2.0); EOSINOPHILS % (AUTO) 0.3 % (0.0-7.0); HEMATOCRIT 34.9 % (31.2-41.9); HEMOGLOBIN 11.7 g/dL (10.9-14.3); LYMPHOCYTES # (AUTO) 0.5 K/uL (0.8-4.8); LYMPHOCYTES % (AUTO) 3.1 % (20.5-51.5); MEAN CORPUSCULAR HEMOGLOBIN 27.4 uug (24.7-32.8); MEAN CORPUSCULAR HGB CONC 34 g/dL (32.3-35.6); MEAN CORPUSCULAR VOLUME 81.8 fL (75.5-95.3); MONOCYTES % (AUTO) 6.3 % (0.0-11.0); NEUTROPHILS # (AUTO) 13.8 K/uL (1.8-8.9); NEUTROPHILS % (AUTO) 90.2 % (38.5-71.5); PLATELET COUNT (AUTO) 315 K/uL (179-408); RED BLOOD CELL COUNT(AUTO) 4.26 MIL/uL (3.63-4.92); RED CELL DISTRIBUTION WIDTH 17.8 % (12.3-17.7); WHITE BLOOD COUNT (AUTO) 15.2 K/uL (3.8-11.8)
[2023-09-12 01:51] LABS: DIFFERENTIAL COMMENT 1
[2023-09-12 01:59] LABS: CALCIUM 9.5 mg/dL (8.5-10.1); CARBON DIOXIDE 26 mmol/L (21-32); CHLORIDE 104 mmol/L (98-107); CREATININE 0.6 mg/dL (0.6-1.3); GLUCOSE 176 mg/dL (74-106); POTASSIUM 3.9 mmol/L (3.5-5.1); SODIUM SERUM 140 mmol/L (136-145); UREA NITROGEN, BLOOD 28 mg/dL (7-18)
[2023-09-12 02:12] LABS: ALANINE AMINOTRANSFERASE 120 U/L (14-59); ALBUMIN 2.4 g/dL (3.4-5.0); ALKALINE PHOSPHATASE 362 U/L (50-136); ASPARTATE AMINOTRANSFERASE 80 U/L (15-37); BILIRUBIN,DIRECT 0.2 mg/dL (0.0-0.2); BILIRUBIN,TOTAL 0.5 mg/dL (0.2-1.0); NT-PRO BNP 1059 pg/mL (0-125); TOTAL PROTEIN, SERUM 8.2 g/dL (6.4-8.2)
[2023-09-12] MEDS ORDERED: ENOXAPARIN SODIUM 60 MG/0.6 ML DISP.SYRIN SQ ONE ×2 (02:45→02:53)
[2023-09-12] MEDS ORDERED: IPRATROPIUM BROMIDE 0.5 MG/2.5 ML NEBU NEB PRN (04:30)
[2023-09-12] MEDS ORDERED: ALBUTEROL SULFATE 2.5 MG/3 ML NEBU NEB PRN (04:30)
[2023-09-12] MEDS ORDERED: ONDANSETRON 4 MG/2 ML VIAL IV PRN (04:30)
[2023-09-12] MEDS ORDERED: ACETAMINOPHEN 325 MG TABLET GT PRN (04:30)
[2023-09-12] MEDS ORDERED: BISACODYL 10 MG SUPP.RECT RC PRN (04:30)
[2023-09-12] MEDS ORDERED: VITAL AF 1.2 1,000 ML LIQUID GT PRN ×2 (04:30→07:45)
[2023-09-12 05:15] LABS: BASOPHILS % (AUTO) 0.2 % (0.0-2.0); EOSINOPHILS # (AUTO) 0.1 K/uL (0.0-0.7); EOSINOPHILS % (AUTO) 0.5 % (0.0-7.0); HEMOGLOBIN 10.9 g/dL (10.9-14.3); LYMPHOCYTES # (AUTO) 0.9 K/uL (0.8-4.8); LYMPHOCYTES % (AUTO) 7.3 % (20.5-51.5); MEAN CORPUSCULAR HEMOGLOBIN 27.5 uug (24.7-32.8); MEAN CORPUSCULAR HGB CONC 34 g/dL (32.3-35.6); MONOCYTES # (AUTO) 0.8 K/uL (0.1-1.30); MONOCYTES % (AUTO) 6.1 % (0.0-11.0); NEUTROPHILS # (AUTO) 10.8 K/uL (1.8-8.9); NEUTROPHILS % (AUTO) 85.9 % (38.5-71.5); PLATELET COUNT (AUTO) 309 K/uL (179-408); RED BLOOD CELL COUNT(AUTO) 3.95 MIL/uL (3.63-4.92); RED CELL DISTRIBUTION WIDTH 17.9 % (12.3-17.7); WHITE BLOOD COUNT (AUTO) 12.6 K/uL (3.8-11.8)
[2023-09-12 05:20] LABS: DIFFERENTIAL COMMENT 1
[2023-09-12 05:29] LABS: CALCIUM 9.2 mg/dL (8.5-10.1); CREATININE 0.6 mg/dL (0.6-1.3); MAGNESIUM 1.8 mg/dL (1.8-2.4); POTASSIUM 4.3 mmol/L (3.5-5.1)
[2023-09-12] MEDS ORDERED: SWABABLE VALVE TRANSFER SET EA MC ONE ×2 (07:21→08:35)
[2023-09-12] MEDS ORDERED: IV NORMAL SALINE 250 ML IV ONE ×2 (07:21→08:35)
[2023-09-12] MEDS ORDERED: IOHEXOL 350 100 ML INFUS..BTL ONE ×2 (07:21→08:35)
[2023-09-12] MEDS ORDERED: VANCOMYCIN IV 1,000 MG in IV DEXTROSE 5% 250 ML IV ONE (07:30)
[2023-09-12] MEDS ORDERED: VANCOMYCIN IV 200 ML ONE (08:44)
[2023-09-12] MEDS: CHLORHEXIDINE GLUCONATE 15 ML MOUTHWASH MM SCH (09:00)
[2023-09-12] MEDS ORDERED: DOCUSATE SODIUM 100 MG CAPSULE PO SCH (09:00)
[2023-09-12] MEDS ORDERED: MEROPENEM 1 G in IV NORMAL SALINE 100 ML IV SCH (09:00)
[2023-09-12] MEDS: MULTIVITAMINS,THERAPEUTIC TABLET GT SCH (09:00)
[2023-09-12 09:33] LABS: ABG BASE EXCESS 1.2 mmol/L (-2.0-2.0); ABG HCO3 24.2 mmol/L (22.0-26.0); ABG PCO2 32.8 mmHg (35.0-48.0); ABG PH 7.486 (7.340-7.440); ABG PO2 139.2 mmHg (75.0-100.0); ABG SITE LEFT RADIAL; ABG TOTAL HEMOGLOBIN 11.2 G/dL (12.0-16.0); COHb 0.1 % (0.0-3.9); MetHb 0.4 % (0.0-1.5); O2Hb 98.2 % (94.0-97.0); VT, ABG 470 mL
[2023-09-12] MEDS ORDERED: DOCUSATE SODIUM 100 MG/10 ML LIQUID UDC ONE ×2 (09:35→21:21)
[2023-09-12] MEDS ORDERED: levETIRAcetam 500 MG/5 ML LIQUID UDC ONE ×2 (09:35→21:21)
[2023-09-12] MEDS ORDERED: ASPIRIN 81 MG TAB.CHEW ONE (09:35)
[2023-09-12] MEDS ORDERED: PHENOBARBITAL 32.4 MG TABLET ONE ×2 (09:35→21:21)
[2023-09-12] MEDS ORDERED: MEROPENEM 1GM/NS 100ML IVPB **ER PYXIS ONLY IV ONE (09:36)
[2023-09-12] MEDS: PHENOBARBITAL 32.4 MG TABLET GT SCH ×2 (09:39→21:28)
[2023-09-12] MEDS: ASPIRIN 81 MG TAB.CHEW GT SCH (09:39)
[2023-09-12] MEDS: levETIRAcetam 500 MG/5 ML LIQUID UDC GT SCH ×2 (09:39→21:28)
[2023-09-12] MEDS: DOCUSATE SODIUM 100 MG/10 ML LIQUID UDC GT SCH ×2 (09:39→21:28)
[2023-09-12] MEDS: MEROPENEM 1 G in IV NORMAL SALINE 100 ML IV SCH ×2 (10:30→17:52)
[2023-09-12] MEDS: IV NS 1000 ML 1,000 ML IV PRN (13:08)
[2023-09-12] MEDS ORDERED: NOREPINEPHRINE BITARTRATE 8 MG in IV NORMAL SALINE 250 ML IV ONE (15:30)
[2023-09-12] MEDS ORDERED: NOREPINEPHRINE BITARTRATE 4 MG/4 ML VIAL IV ONE (15:38)
[2023-09-12] MEDS ORDERED: MAGNESIUM OXIDE 400 MG TABLET GT SCH (21:00)
[2023-09-12] MEDS ORDERED: MAGNESIUM OXIDE 400 MG TABLET ONE (21:20)
[2023-09-13] VITALS (50 sets, daily range): BP systolic 89–141; BP diastolic 71–106; TEMP 97.1–97.7; O2SAT 98–100
[2023-09-13] MEDS: VANCOMYCIN IV 1,000 MG in IV DEXTROSE 5% 250 ML IV SCH ×2 (01:50→18:42)
[2023-09-13 05:06] LABS: BASOPHILS % (AUTO) 0.6 % (0.0-2.0); EOSINOPHILS # (AUTO) 0.2 K/uL (0.0-0.7); EOSINOPHILS % (AUTO) 3.5 % (0.0-7.0); HEMATOCRIT 29.4 % (31.2-41.9); HEMOGLOBIN 10.1 g/dL (10.9-14.3); LYMPHOCYTES # (AUTO) 1.1 K/uL (0.8-4.8); LYMPHOCYTES % (AUTO) 19.1 % (20.5-51.5); MEAN CORPUSCULAR HEMOGLOBIN 27.9 uug (24.7-32.8); MEAN CORPUSCULAR HGB CONC 34 g/dL (32.3-35.6); MEAN CORPUSCULAR VOLUME 81.2 fL (75.5-95.3); MONOCYTES # (AUTO) 0.5 K/uL (0.1-1.30); NEUTROPHILS # (AUTO) 3.8 K/uL (1.8-8.9); NEUTROPHILS % (AUTO) 67.8 % (38.5-71.5); PLATELET COUNT (AUTO) 250 K/uL (179-408); RED BLOOD CELL COUNT(AUTO) 3.62 MIL/uL (3.63-4.92); WHITE BLOOD COUNT (AUTO) 5.7 K/uL (3.8-11.8)
[2023-09-13 05:21] LABS: DIFFERENTIAL COMMENT 1
[2023-09-13 05:25] LABS: CREATININE 0.7 mg/dL (0.6-1.3); MAGNESIUM 1.9 mg/dL (1.8-2.4); PHOSPHOROUS 3.8 mg/dL (2.5-4.9); POTASSIUM 3.7 mmol/L (3.5-5.1)
[2023-09-13] MEDS: MEROPENEM 1 G in IV NORMAL SALINE 100 ML IV SCH ×3 (06:55→17:07)
[2023-09-13] MEDS ORDERED: ENOXAPARIN SODIUM 40 MG/0.4 ML DISP.SYRIN SQ SCH (09:00)
[2023-09-13] MEDS: ASPIRIN 81 MG TAB.CHEW GT SCH ×2 (09:30→10:53)
[2023-09-13] MEDS: CHLORHEXIDINE GLUCONATE 15 ML MOUTHWASH MM SCH (09:31)
[2023-09-13] MEDS: DOCUSATE SODIUM 100 MG/10 ML LIQUID UDC GT SCH ×2 (09:31→10:48)
[2023-09-13] MEDS: MULTIVITAMINS,THERAPEUTIC TABLET GT SCH ×2 (09:31→10:49)
[2023-09-13] MEDS: AMIODARONE HCL 200 MG TABLET PO SCH ×2 (09:33→10:50)
[2023-09-13] MEDS: PHENOBARBITAL 32.4 MG TABLET GT SCH ×2 (09:34→10:49)
[2023-09-13] MEDS: levETIRAcetam 500 MG/5 ML LIQUID UDC GT SCH ×2 (09:48→10:51)
[2023-09-13] MEDS: IV NS 1000 ML 1,000 ML IV PRN (13:17)
== END 2023-09-13 19:30 | DRG 720 ==
LOC: ER 00:31 → TRANSITION 04:00 → CCU 21:46
PROVIDERS: ADMIT Nurse Practitioner Acute Care; ATTEND Internal Medicine
PROC: 5A1945Z Respiratory Ventilation, 24-96 Consecutive Hours (ICD-10-PCS; principal; 2023-09-12)
DX: A41.4 Sepsis due to anaerobes (principal); K72.00 Acute and subacute hepatic failure without coma; R65.21 Severe sepsis with septic shock; E43 Unspecified severe protein-calorie malnutrition; J96.12 Chronic respiratory failure with hypercapnia; G93.1 Anoxic brain damage, not elsewhere classified; D68.59 Other primary thrombophilia; I21.A1 Myocardial infarction type 2; E88.09 Other disorders of plasma-protein metabolism, not elsewhere classified; Z99.11 Dependence on respirator [ventilator] status; J96.11 Chronic respiratory failure with hypoxia; I48.0 Paroxysmal atrial fibrillation; Z86.74 Personal history of sudden cardiac arrest; G40.909 Epilepsy, unspecified, not intractable, without status epilepticus; Z87.440 Personal history of urinary (tract) infections; Z93.0 Tracheostomy status; Z88.1 Allergy status to other antibiotic agents; I69.291 Dysphagia following other nontraumatic intracranial hemorrhage; I69.251 Hemiplegia and hemiparesis following other nontraumatic intracranial hemorrhage affecting right dominant side; R13.10 Dysphagia, unspecified; K80.20 Calculus of gallbladder without cholecystitis without obstruction; Z87.01 Personal history of pneumonia (recurrent); Z22.350 Carrier of carbapenem-resistant Enterobacterales; I10 Essential (primary) hypertension; N20.0 Calculus of kidney; Z93.1 Gastrostomy status; S30.0XXA Contusion of lower back and pelvis, initial encounter; X58.XXXA Exposure to other specified factors, initial encounter; Y92.239 Unspecified place in hospital as the place of occurrence of the external cause
CPT/HCPCS: 36415; 36600; 71045; 83605; 83735; 84100; 84484; 85025; 87040; 93005; 94002; 94003; 94760; 99082-TC; A4606; A4663; G0378; J1650; J2185; J3370; J3490; J7040; J7050; Q9967